=== PATIENT | male | born 1995 | race Caucasian/White ===

== ENCOUNTER 2018-03-16 09:30 | Outpatient (RCR) | payer OTHER, MEDICAID, SELFPAY ==
[2018-03-09 09:19] VITALS: BP 116/76; PULSE 96; RESP 16; TEMP 37.6
--- NOTE | 2018-03-09 13:31 | HP.PCM_ITS ---
(1) Decubitus ulcer of right ischium, stage 3 Status: Acute Current Visit: Yes Code(s): L89.313 - Pressure ulcer of right buttock, stage 3 (2) History of osteomyelitis Status: Chronic Current Visit: Yes Code(s): Z87.39 - Personal history of other diseases of the musculoskeletal system and connective tissue Comment: right sacral area (3) Infected wound Status: Acute Current Visit: Yes Code(s): T14.8 - Other injury of unspecified body region; L08.9 - Local infection of the skin and subcutaneous tissue, unspecified (4) Malnutrition compromising bodily function Status: Chronic Current Visit: Yes Code(s): E46 - Unspecified protein- calorie malnutrition (5) Spina bifida Status: Chronic Current Visit: Yes Code(s): Q05.9 - Spina bifida, unspecified History of Present Illness Date of Service: 03/09/18 Chief Complaint: Right ischium ulcer History of Wound: 21-year-old with past medical history of spina bifida paraplegia hydrocephalus osteomyelitis had been doing rather well until developed kidney stones and was taken to the hospital approximately 2 weeks ago spent in overnighter and developed a decubitus ulcer in the right issue him after receiving Lipsotripsy for his kidneys. Stage 3 ulcer with some slough no odor cultures will be taken. Patient will be started on Tosha moistened Adaptic abdominal dressings tape. 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 from the right ischial area History of osteomyelitis (Chronic) right sacral area Decubitus ulcer of right ischium, stage 2 (Chronic) Spina bifida (Chronic) Chronic osteomyelitis, pelvic region and thigh (Chronic) right sacral area Malnutrition compromising bodily function (Chronic) Past Medical History: Stage III right ischium ulcer Allergies/Adverse Reactions: Allergies latex Allergy (Verified 07/22/16 12:53) Unknown unsure as charted levofloxacin [Levofloxacin] Allergy (Verified 07/22/16 12:53) Rash sulfamethoxazole [From Bactrim] Allergy (Verified 07/22/16 12:53) Rash trimethoprim [From Bactrim] Allergy (Verified 07/22/16 12:53) Rash Home Medications: Ambulatory Orders Medication Instructions Recorded Polyethylene Glycol 3350 [Miralax] 17 gm PO DAILY #30 05/06/14 Ascorbic Acid [Vitamin C] 1,000 mg PO DAILY 07/22/16 Cholecalciferol (VIT D3) [Vitamin 1,000 unit PO DAILY 07/22/16 D] Multivitamins,Therapeutic 1 tablet PO DAILY 07/22/16 [Multivitamin] Lives: With Family Smoking Status: Never smoker Review of Systems Constitutional: Denies: Chills, Fever Eyes: Denies: Blurred vision, Drainage, Pain HEENT: Denies: Difficulty Hearing, Difficulty Swallowing, Sore Throat, Visual Changes Cardiovascular: Denies: Chest Pain, Palpitations, Syncope Respiratory: Denies: Cough, Shortness of Breath Gastrointestinal: Denies: Abdominal Pain, Nausea, Vomiting Genitourinary: Reports: - - crooks to CD. Denies: Dysuria, Frequency Musculoskeletal: Denies: Joint Pain, Muscle pain Skin: Reports: - - Ischium ulcer. Denies: Jaundice, Rash Neurological: Denies: Balance problems, Change in Speech, Difficulty swallowing , Focal weakness Psychiatric: Denies: Anxiety, Depression Endocrine: Denies: Change in Body Habitus Hematologic/ Lymphatic: Denies: Adenopathy - Physical Exam Vital Signs Temp Pulse Resp BP 99.7 F H 96 16 116/76 03/09/18 09:19 03/09/18 09:19 03/09/18 09:19 03/09/18 09:19 General: Oriented x3, Cooperative, Well developed HEENT: Atraumatic, PERRLA Oral: Moist Mucosa Neck: Supple, No JVD Lungs: Clear to auscultation, Normal air movement Cardiovascular: Regular rate, Regular Rhythm Abdomen: Bowel Sounds Present, Soft, Non Tender, No Hepato-splenomegaly, - - Crooks to DC Extremities: No edema Skin: Ulcer/ Wound - Right ischium ulcer Wound Measurements and Assessment WC - Nurse 1 - General Ulcer Measurement Start: 03/09/18 09:16 Freq: Status: Active Protocol: Activity Type Activity Date Activity User E-Sign Co-Sign Detail Recorded Client Recorded Date Recorded By Document 03/09/18 09:24 MIKKI [id number] 03/09/18 09:29 MIKKI 03/09/18 09:24 Wound Center Nurse 1 [Ulcer Assessment] #6 RIGHT ISCHIUM -Combined with other wound No -Current Size (cm) - Length 4.5 -Current Size (cm) - Width 2.0 -Current Size (cm) - Depth 0.2 -Total Square Cm 9.00 -Date of Last Picture (Recall this 03/09/18 field) -Photo Taken Yes -Epithelialization None Present -Tunneling No -Undermining/Tunneling No -Circular Undermining No -Classification - Thickness Full Thickness without Exposed Support Structure -Classification - Pressure Ulcer Stage 2 -Exudate Amt Medium (34-66%) -Exudate Type Serous -Wound Margin Distinct, Outline Attached -Granulation Amt None Present (0 %) -Granulation Quality N/A -Slough/Fibrin Yes -Necrosis Amt None Present (0 %) -Necrotic Tissue Type Adherent Slough -Structure Exposed None/Limited to Skin Breakdown -Texture (Ida-wound Skin Appearance) Friable -Moisture (Ida-wound Skin Appearance Maceration ) -Color (Ida-wound Skin Appearance) No Abnormality -Temperature (Ida-wound Skin No Abnormality Appearance) (Pt Warm) -Tenderness on Palpation (Ida-wound No Skin Appearance) -Ulcer Cleansing Rinsed/ Irrigated with Saline -Foul Odor after Cleansing No -Anesthetic Used 4% Lidocaine Solution WC - Nurse 2 - General Ulcer CM Notes Start: 03/09/18 09:16 Freq: Status: Active Protocol: Activity Type Activity Date Activity User E-Sign Co-Sign Detail Recorded Client Recorded Date Recorded By Document 03/09/18 10:21 DV [id number] 03/09/18 10:27 DV 03/09/18 10:21 Wound Center Nurse 2 [Procedure/Treatment] -Time 10:21 -Correct Patient Yes -Correct Side, Site, Position Yes -Correct Procedure Yes -Procedure Performed Yes -Type of Procedure Debridement -Clinical Debridement Subcutaneous -Post Debridement Size (cm) - Length 5.0 -Post Debridement Size (cm) - Width 2.0 -Post Debridement Size (cm) - Depth 0.3 -Total Square Cm 10.00 -Wound/Ulcer Outcome Not Healed -Ulcer Cleansing Rinsed/ Irrigated with Saline -Foul Odor after Cleansing No -Bioengineered Tissue No -Bleeding Controlled with Pressure -Treatment Response Procedure Tolerated Well [See Physician Procedure note for Specifics] Pain Scale: 0-10 Numeric [Pain] -Is Patient Pain Free? Yes Musculoskeletal: No Tenderness to Palpation of Joints or Extremities, Muscle Wasting Lymphatic: No Cervical, Supraclavicular, or Inguinal Adenopathy Neurological: Cranial nerves II-XII grossly intact, Neuro grossly intact Psych/Mental Status: Normal Affect, Appropriate, Alert and oriented to time, place, person, mood and affect Debridement Note Post-Debridement Measurements/Treatment WC - Nurse 2 - General Ulcer CM Notes Start: 03/09/18 09:16 Freq: Status: Active Protocol: Activity Type Activity Date Activity User E-Sign Co-Sign Detail Recorded Client Recorded Date Recorded By Document 03/09/18 10:21 DV [id number] 03/09/18 10:27 DV 03/09/18 10:21 Wound Center Nurse 2 #6 RIGHT ISCHIUM -Time 10:21 -Correct Patient Yes -Correct Side, Site, Position Yes -Correct Procedure Yes -Procedure Performed Yes -Type of Procedure Debridement -Clinical Debridement Subcutaneous -Post Debridement Size (cm) - Length 5.0 -Post Debridement Size (cm) - Width 2.0 -Post Debridement Size (cm) - Depth 0.3 -Total Square Cm 10.00 -Wound/Ulcer Outcome Not Healed -Ulcer Cleansing Rinsed/ Irrigated with Saline -Foul Odor after Cleansing No -Bioengineered Tissue No -Bleeding Controlled with Pressure -Treatment Response Procedure Tolerated Well Pain Scale: 0-10 Numeric Is Patient Pain Free? Yes Wound debrided: Right ischium ulcer Wound Grade/Stage: stage 3 Type of Debridement: Excisional debridement Anesthesia Used: 5% Lidocaine Gel Depth: Down to and including healthy tissue, in the subcutaneous layer Percentage of wound debrided: 100 Instrument Used: 5mm curette Tissue Removed: Slough Severity: Limited To Skin Breakdown Amount of bleeding with debridement: Mild Bleeding Controlled with: Compression and gauze Patient tolerated procedure well Assessment/Plan Active Problems Infected wound (Acute) Decubitus ulcer of right ischium, stage 3 (Acute) History of osteomyelitis (Chronic) right sacral area Spina bifida (Chronic) Malnutrition compromising bodily function (Chronic) Assessment: Decubitus ulcer stage III right ischium. Spina bifida. Paraplegia. Hydrocephalus. History of osteomyelitis Plan: Tosha moistened and then adaptic daily. follow up in 1 week. Will call with the resultsof the cx taken
[2018-03-16 10:01] VITALS: BP 112/67; PULSE 93; RESP 16; TEMP 36.6
--- NOTE | 2018-03-16 10:57 | PCM.WC.PN ---
(1) Decubitus ulcer of right ischium, stage 3 Status: Acute Current Visit: Yes Code(s): L89.313 - Pressure ulcer of right buttock, stage 3 (2) History of osteomyelitis Status: Chronic Current Visit: Yes Code(s): Z87.39 - Personal history of other diseases of the musculoskeletal system and connective tissue Comment: right sacral area (3) Infected wound Status: Acute Current Visit: Yes Code(s): T14.8 - Other injury of unspecified body region; L08.9 - Local infection of the skin and subcutaneous tissue, unspecified (4) Malnutrition compromising bodily function Status: Chronic Current Visit: Yes Code(s): E46 - Unspecified protein-calorie malnutrition (5) Spina bifida Status: Chronic Current Visit: Yes Code(s): Q05.9 - Spina bifida, unspecified Type of Wound Date of Service: 03/16/18 Chief Complaint: Right ischium ulcer History of Wound: 21-year-old with past medical history of spina bifida paraplegia hydrocephalus osteomyelitis had been doing rather well until developed kidney stones and was taken to the hospital approximately 2 weeks ago spent in overnighter and developed a decubitus ulcer in the right issue him after receiving Lipsotripsy for his kidneys. Stage 3 ulcer with some slough no odor cultures will be taken. Patient will be started on Tosha moistened Adaptic abdominal dressings tape. Progress of Wound: The ulcer looks so much better this week he has started the antibiotics for his bacteria is and anaerobes first its Augmentin and we will be adding and metronidazole also. After he is finished with the Augmentin will have to go right into doxycycline for the other aerobic type bacteria that is growing in his wound. He is starting to complain of diarrhea and was started on probiotics and also the metronidazole should help with some diarrhea. The wound itself looks vacuum cleaner mechanic already and was able to debride very well this week. - Physical Exam Vital Signs Temp Pulse Resp BP 97.8 F 93 16 112/67 03/16/18 10:01 03/16/18 10:01 03/16/18 10:01 03/16/18 10:01 General: Oriented x3, Cooperative, Well developed HEENT: Atraumatic, PERRLA Oral: Moist Mucosa Neck: Supple, No JVD Lungs: Clear to auscultation, Normal air movement Cardiovascular: Regular rate, Regular Rhythm Abdomen: Bowel Sounds Present, Soft, Non Tender, No Hepato-splenomegaly Extremities: No clubbing, No edema Skin: - - Right ischial ulcer stage III Wound Measurements and Assessment - Nurse 1 - General Ulcer Measurement Start: 03/09/18 09:16 Freq: Status: Active Protocol: Activity Type Activity Date Activity User E-Sign Co-Sign Detail Recorded Client Recorded Date Recorded By Document 03/16/18 10:01 MIKKI [id number] 03/16/18 10:14 MIKKI 03/16/18 10:01 Wound Center Nurse 1 [Ulcer Assessment] #6 RIGHT ISCHIUM -Combined with other wound No -Current Size (cm) - Length 4.0 -Current Size (cm) - Width 3.5 -Current Size (cm) - Depth 0.2 -Total Square Cm 14.00 -Date of Last Picture (Recall this 03/09/18 field) -Photo Taken No -Epithelialization None Present -Tunneling No -Undermining/Tunneling No -Circular Undermining No -Classification - Thickness Full Thickness without Exposed Support Structure -Classification - Pressure Ulcer Stage 2 -Change in Wound Grade/Stage No Query Text:If change please identify the Stage/Grade in the comment (ie. S2 G3) -Exudate Amt Medium (34-66%) -Exudate Type Serous -Wound Margin Distinct, Outline Attached -Granulation Amt None Present (0 %) -Granulation Quality N/A -Slough/Fibrin Yes -Necrosis Amt None Present (0 %) -Necrotic Tissue Type Eschar -Structure Exposed None/Limited to Skin Breakdown -Texture (Ida-wound Skin Appearance) No Abnormality -Moisture (Ida-wound Skin Appearance Maceration ) -Color (Ida-wound Skin Appearance) No Abnormality -Temperature (Ida-wound Skin No Abnormality Appearance) (Pt Warm) -Tenderness on Palpation (Ida-wound No Skin Appearance) -Ulcer Cleansing Rinsed/ Irrigated with Saline -Foul Odor after Cleansing No -Anesthetic Used 4% Lidocaine Solution - Nurse 2 - General Ulcer CM Notes Start: 03/09/18 09:16 Freq: Status: Active Protocol: Activity Type Activity Date Activity User E-Sign Co-Sign Detail Recorded Client Recorded Date Recorded By Document 03/16/18 10:42 PARISH [id number] 03/16/18 10:45 03/16/18 10:42 Wound Center Nurse 2 [Procedure/Treatment] -Time 10:42 -Correct Patient Yes -Correct Side, Site, Position Yes -Correct Procedure Yes -Procedure Performed Yes -Type of Procedure Debridement -Clinical Debridement Subcutaneous -Post Debridement Size (cm) - Length 4.5 -Post Debridement Size (cm) - Width 3.5 -Post Debridement Size (cm) - Depth 0.7 -Total Square Cm 15.75 -Wound/Ulcer Outcome Not Healed -Ulcer Cleansing Rinsed/ Irrigated with Saline -Foul Odor after Cleansing No -Bioengineered Tissue No -Bleeding Controlled with Pressure -Treatment Response Procedure Tolerated Well [See Physician Procedure note for Specifics] Pain Scale: 0-10 Numeric [Pain] -Is Patient Pain Free? Yes Musculoskeletal: No Tenderness to Palpation of Joints or Extremities Lymphatic: No Cervical, Supraclavicular, or Inguinal Adenopathy Neurological: Cranial nerves II-XII grossly intact, Neuro grossly intact Psych/Mental Status: Normal Affect, Appropriate Debridement Note Post-Debridement Measurements/Treatment WC - Nurse 2 - General Ulcer CM Notes Start: 03/09/18 09:16 Freq: Status: Active Protocol: Activity Type Activity Date Activity User E-Sign Co-Sign Detail Recorded Client Recorded Date Recorded By Document 03/09/18 10:21 DV [id number] 03/09/18 10:27 DV Document 03/16/18 10:42 DV [id number] 03/16/18 10:45 DV 03/09/18 03/16/18 10:21 10:42 Wound Center Nurse 2 #6 RIGHT ISCHIUM -Time 10:21 10:42 -Correct Patient Yes Yes -Correct Side, Site, Position Yes Yes -Correct Procedure Yes Yes -Procedure Performed Yes Yes -Type of Procedure Debridement Debridement -Clinical Debridement Subcutaneous Subcutaneous -Post Debridement Size (cm) - Length 5.0 4.5 -Post Debridement Size (cm) - Width 2.0 3.5 -Post Debridement Size (cm) - Depth 0.3 0.7 -Total Square Cm 10.00 15.75 -Wound/Ulcer Outcome Not Healed Not Healed -Ulcer Cleansing Rinsed/ Rinsed/ Irrigated with Irrigated with Saline Saline -Foul Odor after Cleansing No No -Bioengineered Tissue No No -Bleeding Controlled with Pressure Pressure -Treatment Response Procedure Procedure Tolerated Well Tolerated Well Pain Scale: 0-10 Numeric Is Patient Pain Free? Yes Yes Wound debrided: R ischial ulcer Wound Grade/Stage: Stage III Type of Debridement: Excisional debridement Anesthesia Used: 5% Lidocaine Gel Depth: Down to and including healthy tissue, in the subcutaneous layer Instrument Used: 7mm curette Tissue Removed: Fibrin and devitalized tissue Severity: Fat Layer Exposed Amount of bleeding with debridement: Mild Bleeding Controlled with: Compression and gauze Patient tolerated procedure well Assessment/Plan Active Problems Infected wound (Acute) Decubitus ulcer of right ischium, stage 3 (Acute) History of osteomyelitis (Chronic) right sacral area Spina bifida (Chronic) Malnutrition compromising bodily function (Chronic) Assessment: Decubitus ulcer stage III right ischium. Spina bifida. Paraplegia. Hydrocephalus. History of osteomyelitis Plan: Tosha moistened and then adaptic daily cover with absorbent sachet. New Augmentin 875's 1 p.o. twice daily for 10 days. Metronidazole 250 3 times daily for 10 days. follow up in 1 week
--- NOTE | 2018-03-16 11:02 | PN.PCM_ITS ---
(1) Decubitus ulcer of right ischium, stage 3 Status: Acute Current Visit: Yes Code(s): L89.313 - Pressure ulcer of right buttock, stage 3 (2) History of osteomyelitis Status: Chronic Current Visit: Yes Code(s): Z87.39 - Personal history of other diseases of the musculoskeletal system and connective tissue Comment: right sacral area (3) Infected wound Status: Acute Current Visit: Yes Code(s): T14.8 - Other injury of unspecified body region; L08.9 - Local infection of the skin and subcutaneous tissue, unspecified (4) Malnutrition compromising bodily function Status: Chronic Current Visit: Yes Code(s): E46 - Unspecified protein- calorie malnutrition (5) Spina bifida Status: Chronic Current Visit: Yes Code(s): Q05.9 - Spina bifida, unspecified Type of Wound Date of Service: 03/16/18 Chief Complaint: Right ischium ulcer History of Wound: 21-year-old with past medical history of spina bifida paraplegia hydrocephalus osteomyelitis had been doing rather well until developed kidney stones and was taken to the hospital approximately 2 weeks ago spent in overnighter and developed a decubitus ulcer in the right issue him after receiving Lipsotripsy for his kidneys. Stage 3 ulcer with some slough no odor cultures will be taken. Patient will be started on Tosha moistened Adaptic abdominal dressings tape. Progress of Wound: The ulcer looks so much better this week he has started the antibiotics for his bacteria is and anaerobes first its Augmentin and we will be adding and metronidazole also. After he is finished with the Augmentin will have to go right into doxycycline for the other aerobic type bacteria that is growing in his wound. He is starting to complain of diarrhea and was started on probiotics and also the metronidazole should help with some diarrhea. The wound itself looks negative cleaner already and was able to debride very well this week. - Physical Exam Vital Signs Temp Pulse Resp BP 97.8 F 93 16 112/67 03/16/18 10:01 03/16/18 10:01 03/16/18 10:01 03/16/18 10:01 General: Oriented x3, Cooperative, Well developed HEENT: Atraumatic, PERRLA Oral: Moist Mucosa Neck: Supple, No JVD Lungs: Clear to auscultation, Normal air movement Cardiovascular: Regular rate, Regular Rhythm Abdomen: Bowel Sounds Present, Soft, Non Tender, No Hepato-splenomegaly Extremities: No clubbing, No edema Skin: - - Right ischial ulcer stage III Wound Measurements and Assessment - Nurse 1 - General Ulcer Measurement Start: 03/09/18 09:16 Freq: Status: Active Protocol: Activity Type Activity Date Activity User E-Sign Co-Sign Detail Recorded Client Recorded Date Recorded By Document 03/16/18 10:01 MIKKI [id number] 03/16/18 10:14 MIKKI 03/16/18 10:01 Wound Center Nurse 1 [Ulcer Assessment] #6 RIGHT ISCHIUM -Combined with other wound No -Current Size (cm) - Length 4.0 -Current Size (cm) - Width 3.5 -Current Size (cm) - Depth 0.2 -Total Square Cm 14.00 -Date of Last Picture (Recall this 03/09/18 field) -Photo Taken No -Epithelialization None Present -Tunneling No -Undermining/Tunneling No -Circular Undermining No -Classification - Thickness Full Thickness without Exposed Support Structure -Classification - Pressure Ulcer Stage 2 -Change in Wound Grade/Stage No Query Text:If change please identify the Stage/Grade in the comment (ie. S2 G3) -Exudate Amt Medium (34-66%) -Exudate Type Serous -Wound Margin Distinct, Outline Attached -Granulation Amt None Present (0 %) -Granulation Quality N/A -Slough/Fibrin Yes -Necrosis Amt None Present (0 %) -Necrotic Tissue Type Eschar -Structure Exposed None/Limited to Skin Breakdown -Texture (Ida-wound Skin Appearance) No Abnormality -Moisture (Ida-wound Skin Appearance Maceration ) -Color (Ida-wound Skin Appearance) No Abnormality -Temperature (Ida-wound Skin No Abnormality Appearance) (Pt Warm) -Tenderness on Palpation (Ida-wound No Skin Appearance) -Ulcer Cleansing Rinsed/ Irrigated with Saline -Foul Odor after Cleansing No -Anesthetic Used 4% Lidocaine Solution - Nurse 2 - General Ulcer CM Notes Start: 03/09/18 09:16 Freq: Status: Active Protocol: Activity Type Activity Date Activity User E-Sign Co-Sign Detail Recorded Client Recorded Date Recorded By Document 03/16/18 10:42 PARISH [id number] 03/16/18 10:45 03/16/18 10:42 Wound Center Nurse 2 [Procedure/Treatment] -Time 10:42 -Correct Patient Yes -Correct Side, Site, Position Yes -Correct Procedure Yes -Procedure Performed Yes -Type of Procedure Debridement -Clinical Debridement Subcutaneous -Post Debridement Size (cm) - Length 4.5 -Post Debridement Size (cm) - Width 3.5 -Post Debridement Size (cm) - Depth 0.7 -Total Square Cm 15.75 -Wound/Ulcer Outcome Not Healed -Ulcer Cleansing Rinsed/ Irrigated with Saline -Foul Odor after Cleansing No -Bioengineered Tissue No -Bleeding Controlled with Pressure -Treatment Response Procedure Tolerated Well [See Physician Procedure note for Specifics] Pain Scale: 0-10 Numeric [Pain] -Is Patient Pain Free? Yes Musculoskeletal: No Tenderness to Palpation of Joints or Extremities Lymphatic: No Cervical, Supraclavicular, or Inguinal Adenopathy Neurological: Cranial nerves II-XII grossly intact, Neuro grossly intact Psych/Mental Status: Normal Affect, Appropriate Debridement Note Post-Debridement Measurements/Treatment WC - Nurse 2 - General Ulcer CM Notes Start: 03/09/18 09:16 Freq: Status: Active Protocol: Activity Type Activity Date Activity User E-Sign Co-Sign Detail Recorded Client Recorded Date Recorded By Document 03/09/18 10:21 DV [id number] 03/09/18 10:27 DV Document 03/16/18 10:42 DV [id number] 03/16/18 10:45 DV 03/09/18 03/16/18 10:21 10:42 Wound Center Nurse 2 #6 RIGHT ISCHIUM -Time 10:21 10:42 -Correct Patient Yes Yes -Correct Side, Site, Position Yes Yes -Correct Procedure Yes Yes -Procedure Performed Yes Yes -Type of Procedure Debridement Debridement -Clinical Debridement Subcutaneous Subcutaneous -Post Debridement Size (cm) - Length 5.0 4.5 -Post Debridement Size (cm) - Width 2.0 3.5 -Post Debridement Size (cm) - Depth 0.3 0.7 -Total Square Cm 10.00 15.75 -Wound/Ulcer Outcome Not Healed Not Healed -Ulcer Cleansing Rinsed/ Rinsed/ Irrigated with Irrigated with Saline Saline -Foul Odor after Cleansing No No -Bioengineered Tissue No No -Bleeding Controlled with Pressure Pressure -Treatment Response Procedure Procedure Tolerated Well Tolerated Well Pain Scale: 0-10 Numeric Is Patient Pain Free? Yes Yes Wound debrided: R ischial ulcer Wound Grade/Stage: Stage III Type of Debridement: Excisional debridement Anesthesia Used: 5% Lidocaine Gel Depth: Down to and including healthy tissue, in the subcutaneous layer Instrument Used: 7mm curette Tissue Removed: Fibrin and devitalized tissue Severity: Fat Layer Exposed Amount of bleeding with debridement: Mild Bleeding Controlled with: Compression and gauze Patient tolerated procedure well Assessment/Plan Active Problems Infected wound (Acute) Decubitus ulcer of right ischium, stage 3 (Acute) History of osteomyelitis (Chronic) right sacral area Spina bifida (Chronic) Malnutrition compromising bodily function (Chronic) Assessment: Decubitus ulcer stage III right ischium. Spina bifida. Paraplegia. Hydrocephalus. History of osteomyelitis Plan: Tosha moistened and then adaptic daily cover with absorbent sachet. New Augmentin 875's 1 p.o. twice daily for 10 days. Metronidazole 250 3 times daily for 10 days. follow up in 1 week
== END 2018-03-22 23:59 ==
LOC: WC 09:30
PROVIDERS: Family Provider Family Medicine; PCP Family Medicine; Visit Provider Nurse Practitioner
DX: L89.313 Pressure ulcer of right buttock, stage 3 (principal); E46 Unspecified protein-calorie malnutrition; Q05.9 Spina bifida, unspecified; Z91.040 Latex allergy status; G82.20 Paraplegia, unspecified; Z87.39 Personal history of other diseases of the musculoskeletal system and connective tissue
CPT/HCPCS: 11042; 87070; 87075; 87077; 87186; 87205; 99213; G0463

== ENCOUNTER 2018-04-20 09:30 | Outpatient (RCR) | payer OTHER, MEDICAID, SELFPAY ==
[2018-03-23 01:15] VITALS: BP 112/67; PULSE 93; RESP 16; TEMP 36.6
[2018-03-23 09:55] VITALS: BP 113/71; PULSE 96; RESP 18; TEMP 37.3
--- NOTE | 2018-03-23 13:24 | PCM.WC.PN ---
(1) Decubitus ulcer of right ischium, stage 3 Status: Acute Current Visit: Yes Code(s): L89.313 - Pressure ulcer of right buttock, stage 3 (2) Infected wound Status: Acute Current Visit: Yes Code(s): T14.8 - Other injury of unspecified body region; L08.9 - Local infection of the skin and subcutaneous tissue, unspecified (3) Chronic osteomyelitis, pelvic region and thigh Status: Chronic Current Visit: Yes Code(s): M86.659 - Other chronic osteomyelitis, unspecified thigh Comment: right sacral area (4) Malnutrition compromising bodily function Status: Chronic Current Visit: Yes Code(s): E46 - Unspecified protein-calorie malnutrition (5) Spina bifida Status: Chronic Current Visit: Yes Code(s): Q05.9 - Spina bifida, unspecified Type of Wound Date of Service: 03/23/18 Chief Complaint: Right ischium ulcer History of Wound: 21-year-old with past medical history of spina bifida paraplegia hydrocephalus osteomyelitis had been doing rather well until developed kidney stones and was taken to the hospital approximately 2 weeks ago spent in overnighter and developed a decubitus ulcer in the right issue him after receiving Lipsotripsy for his kidneys. Stage 3 ulcer with some slough no odor cultures will be taken. Patient will be started on Tosha moistened Adaptic abdominal dressings tape. Progress of Wound: The ulcer looks so much better this week he has started the antibiotics for his bacteria is and anaerobes first its Augmentin and we will be adding and metronidazole also. After he is finished with the Augmentin will have to go right into doxycycline for the other aerobic type bacteria that is growing in his wound. He is starting to complain of diarrhea and was started on probiotics and also the metronidazole should help with some diarrhea. The wound itself looks furniture cleaner already and was able to debride very well this week. More maceration around the edges. The Adaptic this week and see if that makes a difference. - Physical Exam Vital Signs Temp Pulse Resp BP 99.1 F 96 18 113/71 03/23/18 09:55 03/23/18 09:55 03/23/18 09:55 03/23/18 09:55 General: Oriented x3, Cooperative, Well developed HEENT: Atraumatic, PERRLA Oral: Moist Mucosa Neck: Supple, No JVD Lungs: Clear to auscultation, Normal air movement Cardiovascular: Regular rate, Regular Rhythm Abdomen: Bowel Sounds Present, Soft, Non Tender, No Hepato-splenomegaly Extremities: No clubbing, No edema Skin: Ulcer/ Wound - Right ischial ulcer stage III Wound Measurements and Assessment WC - Nurse 1 - General Ulcer Measurement Start: 03/23/18 09:55 Freq: Status: Active Protocol: Activity Type Activity Date Activity User E-Sign Co-Sign Detail Recorded Client Recorded Date Recorded By Document 03/23/18 09:55 HARSHAD [id number] 03/23/18 10:07 HARSHAD 03/23/18 09:55 Wound Center Nurse 1 [Ulcer Assessment] #6 RIGHT ISCHIUM -Current Size (cm) - Length 4.0 -Current Size (cm) - Width 3.0 -Current Size (cm) - Depth 0.5 -Total Square Cm 12.00 -Date of Last Picture (Recall this 04/06/18 field) -Photo Taken No -Epithelialization None Present -Tunneling No -Undermining/Tunneling No -Circular Undermining No -Classification - Thickness Full Thickness without Exposed Support Structure -Classification - Pressure Ulcer Stage 2 -Change in Wound Grade/Stage No Query Text:If change please identify the Stage/Grade in the comment (ie. S2 G3) -Exudate Amt Small (1-33%) -Exudate Type Serous -Wound Margin Distinct, Outline Attached -Granulation Amt None Present (0 %) -Granulation Quality N/A -Slough/Fibrin Yes -Necrosis Amt None Present (0 %) -Necrotic Tissue Type Adherent Slough -Structure Exposed None/Limited to Skin Breakdown -Texture (Ida-wound Skin Appearance) No Abnormality -Moisture (Ida-wound Skin Appearance Maceration ) -Color (Ida-wound Skin Appearance) No Abnormality -Temperature (Ida-wound Skin No Abnormality Appearance) (Pt Warm) -Tenderness on Palpation (Ida-wound No Skin Appearance) -Ulcer Cleansing Rinsed/ Irrigated with Saline -Foul Odor after Cleansing No -Anesthetic Used 4% Lidocaine Solution [Edema Assessment] -Lower Limb Edema Present No WC - Nurse 2 - General Ulcer CM Notes Start: 03/23/18 09:55 Freq: Status: Active Protocol: Activity Type Activity Date Activity User E-Sign Co-Sign Detail Recorded Client Recorded Date Recorded By Document 03/23/18 10:18 [id number] 03/23/18 10:21 03/23/18 10:18 Wound Center Nurse 2 [Procedure/Treatment] #6 RIGHT ISCHIUM -Time 10:20 -Correct Patient Yes -Correct Side, Site, Position Yes -Correct Procedure Yes -Procedure Performed Yes -Type of Procedure Debridement -Clinical Debridement Subcutaneous -Post Debridement Size (cm) - Length 5.5 -Post Debridement Size (cm) - Width 3.8 -Post Debridement Size (cm) - Depth 0.6 -Total Square Cm 20.90 -Wound/Ulcer Outcome Not Healed -Ulcer Cleansing Rinsed/ Irrigated with Saline -Foul Odor after Cleansing No -Bioengineered Tissue No -Bleeding Controlled with Pressure -Treatment Response Procedure Tolerated Well [See Physician Procedure note for Specifics] Pain Scale: 0-10 Numeric [Pain] -Is Patient Pain Free? Yes Musculoskeletal: No Tenderness to Palpation of Joints or Extremities Lymphatic: No Cervical, Supraclavicular, or Inguinal Adenopathy Neurological: Cranial nerves II-XII grossly intact, Neuro grossly intact Psych/Mental Status: Normal Affect, Appropriate Debridement Note Post-Debridement Measurements/Treatment WC - Nurse 2 - General Ulcer CM Notes Start: 03/23/18 09:55 Freq: Status: Active Protocol: Activity Type Activity Date Activity User E-Sign Co-Sign Detail Recorded Client Recorded Date Recorded By Document 03/23/18 10:18 [id number] 03/23/18 10:21 03/23/18 10:18 Wound Center Nurse 2 #6 RIGHT ISCHIUM -Time 10:20 -Correct Patient Yes -Correct Side, Site, Position Yes -Correct Procedure Yes -Procedure Performed Yes -Type of Procedure Debridement -Clinical Debridement Subcutaneous -Post Debridement Size (cm) - Length 5.5 -Post Debridement Size (cm) - Width 3.8 -Post Debridement Size (cm) - Depth 0.6 -Total Square Cm 20.90 -Wound/Ulcer Outcome Not Healed -Ulcer Cleansing Rinsed/ Irrigated with Saline -Foul Odor after Cleansing No -Bioengineered Tissue No -Bleeding Controlled with Pressure -Treatment Response Procedure Tolerated Well Pain Scale: 0-10 Numeric Is Patient Pain Free? Yes Wound debrided: Right ischium Wound Grade/Stage: Stage 3 Type of Debridement: Excisional debridement Anesthesia Used: 5% Lidocaine Gel Depth: Down to and including healthy tissue, in the subcutaneous layer Percentage of wound debrided: 100 Instrument Used: 7mm curette Tissue Removed: Slough and devitalized tissue fibrin Severity: Limited To Skin Breakdown Amount of bleeding with debridement: Moderate Bleeding Controlled with: Compression and gauze Patient tolerated procedure well Assessment/Plan Active Problems Infected wound (Acute) Decubitus ulcer of right ischium, stage 3 (Acute) Spina bifida (Chronic) Chronic osteomyelitis, pelvic region and thigh (Chronic) right sacral area Malnutrition compromising bodily function (Chronic) Assessment: Decubitus ulcer stage III right ischium. Spina bifida. Paraplegia. Hydrocephalus. History of osteomyelitis. Infected ulcer Plan: Tosha moistened and then stop Adaptic daily cover with absorbent sachet. New Augmentin 875's 1 p.o. twice daily for 10 days finsish. Metronidazole 250 3 times daily for 10 days finish. follow up in 1 week
--- NOTE | 2018-03-23 13:28 | PN.PCM_ITS ---
(1) Decubitus ulcer of right ischium, stage 3 Status: Acute Current Visit: Yes Code(s): L89.313 - Pressure ulcer of right buttock, stage 3 (2) Infected wound Status: Acute Current Visit: Yes Code(s): T14.8 - Other injury of unspecified body region; L08.9 - Local infection of the skin and subcutaneous tissue, unspecified (3) Chronic osteomyelitis, pelvic region and thigh Status: Chronic Current Visit: Yes Code(s): M86.659 - Other chronic osteomyelitis, unspecified thigh Comment: right sacral area (4) Malnutrition compromising bodily function Status: Chronic Current Visit: Yes Code(s): E46 - Unspecified protein- calorie malnutrition (5) Spina bifida Status: Chronic Current Visit: Yes Code(s): Q05.9 - Spina bifida, unspecified Type of Wound Date of Service: 03/23/18 Chief Complaint: Right ischium ulcer History of Wound: 21-year-old with past medical history of spina bifida paraplegia hydrocephalus osteomyelitis had been doing rather well until developed kidney stones and was taken to the hospital approximately 2 weeks ago spent in overnighter and developed a decubitus ulcer in the right issue him after receiving Lipsotripsy for his kidneys. Stage 3 ulcer with some slough no odor cultures will be taken. Patient will be started on Tosha moistened Adaptic abdominal dressings tape. Progress of Wound: The ulcer looks so much better this week he has started the antibiotics for his bacteria is and anaerobes first its Augmentin and we will be adding and metronidazole also. After he is finished with the Augmentin will have to go right into doxycycline for the other aerobic type bacteria that is growing in his wound. He is starting to complain of diarrhea and was started on probiotics and also the metronidazole should help with some diarrhea. The wound itself looks machine heddle cleaner already and was able to debride very well this week. More maceration around the edges. The Adaptic this week and see if that makes a difference. - Physical Exam Vital Signs Temp Pulse Resp BP 99.1 F 96 18 113/71 03/23/18 09:55 03/23/18 09:55 03/23/18 09:55 03/23/18 09:55 General: Oriented x3, Cooperative, Well developed HEENT: Atraumatic, PERRLA Oral: Moist Mucosa Neck: Supple, No JVD Lungs: Clear to auscultation, Normal air movement Cardiovascular: Regular rate, Regular Rhythm Abdomen: Bowel Sounds Present, Soft, Non Tender, No Hepato-splenomegaly Extremities: No clubbing, No edema Skin: Ulcer/ Wound - Right ischial ulcer stage III Wound Measurements and Assessment WC - Nurse 1 - General Ulcer Measurement Start: 03/23/18 09:55 Freq: Status: Active Protocol: Activity Type Activity Date Activity User E-Sign Co-Sign Detail Recorded Client Recorded Date Recorded By Document 03/23/18 09:55 HARSHAD [id number] 03/23/18 10:07 HARSHAD 03/23/18 09:55 Wound Center Nurse 1 [Ulcer Assessment] #6 RIGHT ISCHIUM -Current Size (cm) - Length 4.0 -Current Size (cm) - Width 3.0 -Current Size (cm) - Depth 0.5 -Total Square Cm 12.00 -Date of Last Picture (Recall this 04/06/18 field) -Photo Taken No -Epithelialization None Present -Tunneling No -Undermining/Tunneling No -Circular Undermining No -Classification - Thickness Full Thickness without Exposed Support Structure -Classification - Pressure Ulcer Stage 2 -Change in Wound Grade/Stage No Query Text:If change please identify the Stage/Grade in the comment (ie. S2 G3) -Exudate Amt Small (1-33%) -Exudate Type Serous -Wound Margin Distinct, Outline Attached -Granulation Amt None Present (0 %) -Granulation Quality N/A -Slough/Fibrin Yes -Necrosis Amt None Present (0 %) -Necrotic Tissue Type Adherent Slough -Structure Exposed None/Limited to Skin Breakdown -Texture (Ida-wound Skin Appearance) No Abnormality -Moisture (Ida-wound Skin Appearance Maceration ) -Color (Ida-wound Skin Appearance) No Abnormality -Temperature (Ida-wound Skin No Abnormality Appearance) (Pt Warm) -Tenderness on Palpation (Ida-wound No Skin Appearance) -Ulcer Cleansing Rinsed/ Irrigated with Saline -Foul Odor after Cleansing No -Anesthetic Used 4% Lidocaine Solution [Edema Assessment] -Lower Limb Edema Present No WC - Nurse 2 - General Ulcer CM Notes Start: 03/23/18 09:55 Freq: Status: Active Protocol: Activity Type Activity Date Activity User E-Sign Co-Sign Detail Recorded Client Recorded Date Recorded By Document 03/23/18 10:18 [id number] 03/23/18 10:21 03/23/18 10:18 Wound Center Nurse 2 [Procedure/Treatment] #6 RIGHT ISCHIUM -Time 10:20 -Correct Patient Yes -Correct Side, Site, Position Yes -Correct Procedure Yes -Procedure Performed Yes -Type of Procedure Debridement -Clinical Debridement Subcutaneous -Post Debridement Size (cm) - Length 5.5 -Post Debridement Size (cm) - Width 3.8 -Post Debridement Size (cm) - Depth 0.6 -Total Square Cm 20.90 -Wound/Ulcer Outcome Not Healed -Ulcer Cleansing Rinsed/ Irrigated with Saline -Foul Odor after Cleansing No -Bioengineered Tissue No -Bleeding Controlled with Pressure -Treatment Response Procedure Tolerated Well [See Physician Procedure note for Specifics] Pain Scale: 0-10 Numeric [Pain] -Is Patient Pain Free? Yes Musculoskeletal: No Tenderness to Palpation of Joints or Extremities Lymphatic: No Cervical, Supraclavicular, or Inguinal Adenopathy Neurological: Cranial nerves II-XII grossly intact, Neuro grossly intact Psych/Mental Status: Normal Affect, Appropriate Debridement Note Post-Debridement Measurements/Treatment WC - Nurse 2 - General Ulcer CM Notes Start: 03/23/18 09:55 Freq: Status: Active Protocol: Activity Type Activity Date Activity User E-Sign Co-Sign Detail Recorded Client Recorded Date Recorded By Document 03/23/18 10:18 [id number] 03/23/18 10:21 03/23/18 10:18 Wound Center Nurse 2 #6 RIGHT ISCHIUM -Time 10:20 -Correct Patient Yes -Correct Side, Site, Position Yes -Correct Procedure Yes -Procedure Performed Yes -Type of Procedure Debridement -Clinical Debridement Subcutaneous -Post Debridement Size (cm) - Length 5.5 -Post Debridement Size (cm) - Width 3.8 -Post Debridement Size (cm) - Depth 0.6 -Total Square Cm 20.90 -Wound/Ulcer Outcome Not Healed -Ulcer Cleansing Rinsed/ Irrigated with Saline -Foul Odor after Cleansing No -Bioengineered Tissue No -Bleeding Controlled with Pressure -Treatment Response Procedure Tolerated Well Pain Scale: 0-10 Numeric Is Patient Pain Free? Yes Wound debrided: Right ischium Wound Grade/Stage: Stage 3 Type of Debridement: Excisional debridement Anesthesia Used: 5% Lidocaine Gel Depth: Down to and including healthy tissue, in the subcutaneous layer Percentage of wound debrided: 100 Instrument Used: 7mm curette Tissue Removed: Slough and devitalized tissue fibrin Severity: Limited To Skin Breakdown Amount of bleeding with debridement: Moderate Bleeding Controlled with: Compression and gauze Patient tolerated procedure well Assessment/Plan Active Problems Infected wound (Acute) Decubitus ulcer of right ischium, stage 3 (Acute) Spina bifida (Chronic) Chronic osteomyelitis, pelvic region and thigh (Chronic) right sacral area Malnutrition compromising bodily function (Chronic) Assessment: Decubitus ulcer stage III right ischium. Spina bifida. Paraplegia. Hydrocephalus. History of osteomyelitis. Infected ulcer Plan: Tosha moistened and then stop Adaptic daily cover with absorbent sachet. New Augmentin 875's 1 p.o. twice daily for 10 days finsish. Metronidazole 250 3 times daily for 10 days finish. follow up in 1 week
[2018-04-06 09:38] VITALS: BP 129/68; PULSE 84; RESP 16; TEMP 36.9
--- NOTE | 2018-04-06 10:18 | PCM.WC.PN ---
(1) Decubitus ulcer of right ischium, stage 3 Status: Acute Current Visit: Yes Code(s): L89.313 - Pressure ulcer of right buttock, stage 3 (2) Infected wound Status: Acute Current Visit: Yes Code(s): T14.8 - Other injury of unspecified body region; L08.9 - Local infection of the skin and subcutaneous tissue, unspecified (3) Chronic osteomyelitis, pelvic region and thigh Status: Chronic Current Visit: Yes Code(s): M86.659 - Other chronic osteomyelitis, unspecified thigh Comment: right sacral area (4) Malnutrition compromising bodily function Status: Chronic Current Visit: Yes Code(s): E46 - Unspecified protein-calorie malnutrition (5) Spina bifida Status: Chronic Current Visit: Yes Code(s): Q05.9 - Spina bifida, unspecified Type of Wound Date of Service: 04/06/18 Chief Complaint: Right ischium ulcer History of Wound: 21-year-old with past medical history of spina bifida paraplegia hydrocephalus osteomyelitis had been doing rather well until developed kidney stones and was taken to the hospital approximately 2 weeks ago spent in overnighter and developed a decubitus ulcer in the right issue him after receiving Lipsotripsy for his kidneys. Stage 3 ulcer with some slough no odor cultures will be taken. Patient will be started on Tosha moistened Adaptic abdominal dressings tape. Progress of Wound: The ulcer looks so much better this week he has finished the antibiotics for his bacteria is and anaerobes first was Augmentin and metronidazole also. After he is finished with the Augmentin then doxycycline for the other aerobic type bacteria that is growing in his wound. He is starting to complain of diarrhea and was started on probiotics and also the metronidazole should help with some diarrhea. The wound itself looks carpet cleaner already and was able to debride very well this week. Less maceration around the edges. We discontinued the Adaptic this week and see if that makes a difference and increased more absorbant dressing for less drainage touching skin. - Physical Exam Vital Signs Temp Pulse Resp BP 98.4 F 84 16 129/68 H 04/06/18 09:38 04/06/18 09:38 04/06/18 09:38 04/06/18 09:38 General: Oriented x3, Cooperative, Well developed HEENT: Atraumatic, PERRLA Oral: Moist Mucosa Neck: Supple, No JVD Lungs: Clear to auscultation, Normal air movement Cardiovascular: Regular rate, Regular Rhythm Abdomen: Bowel Sounds Present, Soft, Non Tender, No Hepato-splenomegaly Extremities: No clubbing, No edema Skin: Ulcer/ Wound - R Ischium Wound Measurements and Assessment WC - Nurse 1 - General Ulcer Measurement Start: 03/23/18 09:55 Freq: Status: Active Protocol: Activity Type Activity Date Activity User E-Sign Co-Sign Detail Recorded Client Recorded Date Recorded By Document 04/06/18 09:38 [facility] [id number] 04/06/18 09:46 [facility] 04/06/18 09:38 Wound Center Nurse 1 [Ulcer Assessment] #6 RIGHT ISCHIUM -Combined with other wound No -Current Size (cm) - Length 5 -Current Size (cm) - Width 3.8 -Current Size (cm) - Depth 0.7 -Total Square Cm 19.0 -Photo Taken No -Epithelialization Small 1-33% -Tunneling No -Undermining/Tunneling No -Circular Undermining No -Exudate Amt Medium (34-66%) -Exudate Type Serous -Wound Margin Distinct, Outline Attached -Granulation Amt Large (67-100%) -Granulation Quality [place] -Slough/Fibrin Yes -Necrosis Amt Small (1-33%) -Necrotic Tissue Type Adherent Slough -Structure Exposed None/Limited to Skin Breakdown -Texture (Ida-wound Skin Appearance) Scarring -Moisture (Ida-wound Skin Appearance Dry/Scaly ) -Color (Ida-wound Skin Appearance) Erythema -Temperature (Ida-wound Skin No Abnormality Appearance) (Pt Warm) -Tenderness on Palpation (Ida-wound No Skin Appearance) -Ulcer Cleansing Rinsed/ Irrigated with Saline -Foul Odor after Cleansing No -Anesthetic Used 4% Lidocaine Solution - Nurse 2 - General Ulcer CM Notes Start: 03/23/18 09:55 Freq: Status: Active Protocol: Activity Type Activity Date Activity User E-Sign Co-Sign Detail Recorded Client Recorded Date Recorded By Document 04/06/18 10:03 DV [id number] 04/06/18 10:06 DV 04/06/18 10:03 Wound Center Nurse 2 [Procedure/Treatment] -Time 10:04 -Correct Patient Yes -Correct Side, Site, Position Yes -Correct Procedure Yes -Procedure Performed Yes -Type of Procedure Debridement -Clinical Debridement Subcutaneous -Post Debridement Size (cm) - Length 3.2 -Post Debridement Size (cm) - Width 4.2 -Post Debridement Size (cm) - Depth 0.3 -Total Square Cm 13.44 -Wound/Ulcer Outcome Not Healed -Ulcer Cleansing Rinsed/ Irrigated with Saline -Foul Odor after Cleansing No -Bioengineered Tissue No -Bleeding Controlled with Pressure -Treatment Response Procedure Tolerated Well [See Physician Procedure note for Specifics] Pain Scale: 0-10 Numeric [Pain] -Is Patient Pain Free? Yes Musculoskeletal: No Tenderness to Palpation of Joints or Extremities Lymphatic: No Cervical, Supraclavicular, or Inguinal Adenopathy Neurological: Cranial nerves II-XII grossly intact, Neuro grossly intact Psych/Mental Status: Normal Affect, Appropriate, Alert and oriented to time, place, person, mood and affect Debridement Note Post-Debridement Measurements/Treatment WC - Nurse 2 - General Ulcer CM Notes Start: 03/23/18 09:55 Freq: Status: Active Protocol: Activity Type Activity Date Activity User E-Sign Co-Sign Detail Recorded Client Recorded Date Recorded By Document 03/23/18 10:18 [id number] 03/23/18 10:21 Document 04/06/18 10:03 [id number] 04/06/18 10:06 DV 03/23/18 04/06/18 10:18 10:03 Wound Center Nurse 2 #6 RIGHT ISCHIUM -Time 10:20 10:04 -Correct Patient Yes Yes -Correct Side, Site, Position Yes Yes -Correct Procedure Yes Yes -Procedure Performed Yes Yes -Type of Procedure Debridement Debridement -Clinical Debridement Subcutaneous Subcutaneous -Post Debridement Size (cm) - Length 5.5 3.2 -Post Debridement Size (cm) - Width 3.8 4.2 -Post Debridement Size (cm) - Depth 0.6 0.3 -Total Square Cm 20.90 13.44 -Wound/Ulcer Outcome Not Healed Not Healed -Ulcer Cleansing Rinsed/ Rinsed/ Irrigated with Irrigated with Saline Saline -Foul Odor after Cleansing No No -Bioengineered Tissue No No -Bleeding Controlled with Pressure Pressure -Treatment Response Procedure Procedure Tolerated Well Tolerated Well Pain Scale: 0-10 Numeric Is Patient Pain Free? Yes Yes Wound debrided: Right ischium Wound Grade/Stage: Stage III Type of Debridement: Excisional debridement Anesthesia Used: 5% Lidocaine Gel Depth: Down to and including healthy tissue, in the subcutaneous layer Instrument Used: 7mm curette Tissue Removed: Devitalized tissue and fibrin Severity: Limited To Skin Breakdown Amount of bleeding with debridement: Moderate Bleeding Controlled with: Compression and gauze Patient tolerated procedure well Assessment/Plan Active Problems Infected wound (Acute) Decubitus ulcer of right ischium, stage 3 (Acute) Spina bifida (Chronic) Chronic osteomyelitis, pelvic region and thigh (Chronic) right sacral area Malnutrition compromising bodily function (Chronic) Assessment: Decubitus ulcer stage III right ischium. Spina bifida. Paraplegia. Hydrocephalus. History of osteomyelitis. Infected ulcer Plan: Tosha moistened and then stop Adaptic daily cover with absorbent sachet. follow up in 1 week
--- NOTE | 2018-04-06 10:23 | PN.PCM_ITS ---
(1) Decubitus ulcer of right ischium, stage 3 Status: Acute Current Visit: Yes Code(s): L89.313 - Pressure ulcer of right buttock, stage 3 (2) Infected wound Status: Acute Current Visit: Yes Code(s): T14.8 - Other injury of unspecified body region; L08.9 - Local infection of the skin and subcutaneous tissue, unspecified (3) Chronic osteomyelitis, pelvic region and thigh Status: Chronic Current Visit: Yes Code(s): M86.659 - Other chronic osteomyelitis, unspecified thigh Comment: right sacral area (4) Malnutrition compromising bodily function Status: Chronic Current Visit: Yes Code(s): E46 - Unspecified protein- calorie malnutrition (5) Spina bifida Status: Chronic Current Visit: Yes Code(s): Q05.9 - Spina bifida, unspecified Type of Wound Date of Service: 04/06/18 Chief Complaint: Right ischium ulcer History of Wound: 21-year-old with past medical history of spina bifida paraplegia hydrocephalus osteomyelitis had been doing rather well until developed kidney stones and was taken to the hospital approximately 2 weeks ago spent in overnighter and developed a decubitus ulcer in the right issue him after receiving Lipsotripsy for his kidneys. Stage 3 ulcer with some slough no odor cultures will be taken. Patient will be started on Tosha moistened Adaptic abdominal dressings tape. Progress of Wound: The ulcer looks so much better this week he has finished the antibiotics for his bacteria is and anaerobes first was Augmentin and metronidazole also. After he is finished with the Augmentin then doxycycline for the other aerobic type bacteria that is growing in his wound. He is starting to complain of diarrhea and was started on probiotics and also the metronidazole should help with some diarrhea. The wound itself looks apparatus cleaner already and was able to debride very well this week. Less maceration around the edges. We discontinued the Adaptic this week and see if that makes a difference and increased more absorbant dressing for less drainage touching skin. - Physical Exam Vital Signs Temp Pulse Resp BP 98.4 F 84 16 129/68 H 04/06/18 09:38 04/06/18 09:38 04/06/18 09:38 04/06/18 09:38 General: Oriented x3, Cooperative, Well developed HEENT: Atraumatic, PERRLA Oral: Moist Mucosa Neck: Supple, No JVD Lungs: Clear to auscultation, Normal air movement Cardiovascular: Regular rate, Regular Rhythm Abdomen: Bowel Sounds Present, Soft, Non Tender, No Hepato-splenomegaly Extremities: No clubbing, No edema Skin: Ulcer/ Wound - R Ischium Wound Measurements and Assessment WC - Nurse 1 - General Ulcer Measurement Start: 03/23/18 09:55 Freq: Status: Active Protocol: Activity Type Activity Date Activity User E-Sign Co-Sign Detail Recorded Client Recorded Date Recorded By Document 04/06/18 09:38 [facility] [id number] 04/06/18 09:46 [facility] 04/06/18 09:38 Wound Center Nurse 1 [Ulcer Assessment] #6 RIGHT ISCHIUM -Combined with other wound No -Current Size (cm) - Length 5 -Current Size (cm) - Width 3.8 -Current Size (cm) - Depth 0.7 -Total Square Cm 19.0 -Photo Taken No -Epithelialization Small 1-33% -Tunneling No -Undermining/Tunneling No -Circular Undermining No -Exudate Amt Medium (34-66%) -Exudate Type Serous -Wound Margin Distinct, Outline Attached -Granulation Amt Large (67-100%) -Granulation Quality [place] -Slough/Fibrin Yes -Necrosis Amt Small (1-33%) -Necrotic Tissue Type Adherent Slough -Structure Exposed None/Limited to Skin Breakdown -Texture (Ida-wound Skin Appearance) Scarring -Moisture (Ida-wound Skin Appearance Dry/Scaly ) -Color (Ida-wound Skin Appearance) Erythema -Temperature (Ida-wound Skin No Abnormality Appearance) (Pt Warm) -Tenderness on Palpation (Ida-wound No Skin Appearance) -Ulcer Cleansing Rinsed/ Irrigated with Saline -Foul Odor after Cleansing No -Anesthetic Used 4% Lidocaine Solution - Nurse 2 - General Ulcer CM Notes Start: 03/23/18 09:55 Freq: Status: Active Protocol: Activity Type Activity Date Activity User E-Sign Co-Sign Detail Recorded Client Recorded Date Recorded By Document 04/06/18 10:03 DV [id number] 04/06/18 10:06 DV 04/06/18 10:03 Wound Center Nurse 2 [Procedure/Treatment] -Time 10:04 -Correct Patient Yes -Correct Side, Site, Position Yes -Correct Procedure Yes -Procedure Performed Yes -Type of Procedure Debridement -Clinical Debridement Subcutaneous -Post Debridement Size (cm) - Length 3.2 -Post Debridement Size (cm) - Width 4.2 -Post Debridement Size (cm) - Depth 0.3 -Total Square Cm 13.44 -Wound/Ulcer Outcome Not Healed -Ulcer Cleansing Rinsed/ Irrigated with Saline -Foul Odor after Cleansing No -Bioengineered Tissue No -Bleeding Controlled with Pressure -Treatment Response Procedure Tolerated Well [See Physician Procedure note for Specifics] Pain Scale: 0-10 Numeric [Pain] -Is Patient Pain Free? Yes Musculoskeletal: No Tenderness to Palpation of Joints or Extremities Lymphatic: No Cervical, Supraclavicular, or Inguinal Adenopathy Neurological: Cranial nerves II-XII grossly intact, Neuro grossly intact Psych/Mental Status: Normal Affect, Appropriate, Alert and oriented to time, place, person, mood and affect Debridement Note Post-Debridement Measurements/Treatment WC - Nurse 2 - General Ulcer CM Notes Start: 03/23/18 09:55 Freq: Status: Active Protocol: Activity Type Activity Date Activity User E-Sign Co-Sign Detail Recorded Client Recorded Date Recorded By Document 03/23/18 10:18 [id number] 03/23/18 10:21 Document 04/06/18 10:03 [id number] 04/06/18 10:06 DV 03/23/18 04/06/18 10:18 10:03 Wound Center Nurse 2 #6 RIGHT ISCHIUM -Time 10:20 10:04 -Correct Patient Yes Yes -Correct Side, Site, Position Yes Yes -Correct Procedure Yes Yes -Procedure Performed Yes Yes -Type of Procedure Debridement Debridement -Clinical Debridement Subcutaneous Subcutaneous -Post Debridement Size (cm) - Length 5.5 3.2 -Post Debridement Size (cm) - Width 3.8 4.2 -Post Debridement Size (cm) - Depth 0.6 0.3 -Total Square Cm 20.90 13.44 -Wound/Ulcer Outcome Not Healed Not Healed -Ulcer Cleansing Rinsed/ Rinsed/ Irrigated with Irrigated with Saline Saline -Foul Odor after Cleansing No No -Bioengineered Tissue No No -Bleeding Controlled with Pressure Pressure -Treatment Response Procedure Procedure Tolerated Well Tolerated Well Pain Scale: 0-10 Numeric Is Patient Pain Free? Yes Yes Wound debrided: Right ischium Wound Grade/Stage: Stage III Type of Debridement: Excisional debridement Anesthesia Used: 5% Lidocaine Gel Depth: Down to and including healthy tissue, in the subcutaneous layer Instrument Used: 7mm curette Tissue Removed: Devitalized tissue and fibrin Severity: Limited To Skin Breakdown Amount of bleeding with debridement: Moderate Bleeding Controlled with: Compression and gauze Patient tolerated procedure well Assessment/Plan Active Problems Infected wound (Acute) Decubitus ulcer of right ischium, stage 3 (Acute) Spina bifida (Chronic) Chronic osteomyelitis, pelvic region and thigh (Chronic) right sacral area Malnutrition compromising bodily function (Chronic) Assessment: Decubitus ulcer stage III right ischium. Spina bifida. Paraplegia. Hydrocephalus. History of osteomyelitis. Infected ulcer Plan: Tosha moistened and then stop Adaptic daily cover with absorbent sachet. follow up in 1 week
[2018-04-13 10:13] VITALS: BP 107/62; PULSE 81; RESP 18; TEMP 36.1
--- NOTE | 2018-04-13 13:42 | PCM.WC.PN ---
(1) Decubitus ulcer of right ischium, stage 3 Status: Acute Current Visit: Yes Code(s): L89.313 - Pressure ulcer of right buttock, stage 3 (2) Infected wound Status: Acute Current Visit: Yes Code(s): T14.8 - Other injury of unspecified body region; L08.9 - Local infection of the skin and subcutaneous tissue, unspecified (3) Chronic osteomyelitis, pelvic region and thigh Status: Chronic Current Visit: Yes Code(s): M86.659 - Other chronic osteomyelitis, unspecified thigh Comment: right sacral area (4) Malnutrition compromising bodily function Status: Chronic Current Visit: Yes Code(s): E46 - Unspecified protein-calorie malnutrition (5) Spina bifida Status: Chronic Current Visit: Yes Code(s): Q05.9 - Spina bifida, unspecified Type of Wound Date of Service: 04/13/18 Chief Complaint: Right ischium ulcer History of Wound: 21-year-old with past medical history of spina bifida paraplegia hydrocephalus osteomyelitis had been doing rather well until developed kidney stones and was taken to the hospital approximately 2 weeks ago spent in overnighter and developed a decubitus ulcer in the right issue him after receiving Lipsotripsy for his kidneys. Stage 3 ulcer with some slough no odor cultures will be taken. Patient will be started on Tosha moistened Adaptic abdominal dressings tape. Progress of Wound: The ulcer looks so much better this week he has finished the antibiotics for his bacteria is and anaerobes first was Augmentin and metronidazole also. After he is finished with the Augmentin then doxycycline for the other aerobic type bacteria that is growing in his wound. The wound itself looks cleaner greaser but still very macerated around the perimeter already and was able to debride very well this week. We discontinued the Adaptic week and see if that makes a difference. This week we will stop moisturizing anything and use dry Promogran fluff gauze and then sorban sachet . - Physical Exam Vital Signs Temp Pulse Resp BP 96.9 F L 81 18 107/62 04/13/18 10:13 04/13/18 10:13 04/13/18 10:13 04/13/18 10:13 General: Oriented x3, Cooperative, Well developed HEENT: Atraumatic, PERRLA Oral: Moist Mucosa Neck: Supple, No JVD Lungs: Clear to auscultation, Normal air movement Cardiovascular: Regular rate, Regular Rhythm Abdomen: Bowel Sounds Present, Soft, Non Tender, No Hepato-splenomegaly Extremities: No clubbing, No edema Skin: Ulcer/ Wound - Right ischium ulcer Wound Measurements and Assessment WC - Nurse 1 - General Ulcer Measurement Start: 03/23/18 09:55 Freq: Status: Active Protocol: Activity Type Activity Date Activity User E-Sign Co-Sign Detail Recorded Client Recorded Date Recorded By Document 04/13/18 10:13 DL [id number] 04/13/18 10:29 DL 04/13/18 10:13 Wound Center Nurse 1 [Ulcer Assessment] #6 RIGHT ISCHIUM -Current Size (cm) - Length 4.5 -Current Size (cm) - Width 2.8 -Current Size (cm) - Depth 0.6 -Total Square Cm 12.60 -Photo Taken No -Exudate Amt Medium (34-66%) -Exudate Type Serosanguineous -Wound Margin Thickened -Granulation Amt Small (1-33%) -Granulation Quality [place] -Necrosis Amt Large (67-100%) -Necrotic Tissue Type Adherent Slough -Structure Exposed N/A -Texture (Ida-wound Skin Appearance) Scarring -Moisture (Ida-wound Skin Appearance Maceration ) -Color (Ida-wound Skin Appearance) No Abnormality -Temperature (Ida-wound Skin No Abnormality Appearance) (Pt Warm) -Ulcer Cleansing Wound Cleanser -Foul Odor after Cleansing No -Anesthetic Used 4% Lidocaine Solution WC - Nurse 2 - General Ulcer CM Notes Start: 03/23/18 09:55 Freq: Status: Active Protocol: Activity Type Activity Date Activity User E-Sign Co-Sign Detail Recorded Client Recorded Date Recorded By Document 04/13/18 11:19 [id number] 04/13/18 11:23 04/13/18 11:19 Wound Center Nurse 2 [Procedure/Treatment] -Time 11:19 -Correct Patient Yes -Correct Side, Site, Position Yes -Correct Procedure Yes -Procedure Performed Yes -Type of Procedure Debridement -Clinical Debridement Subcutaneous -Post Debridement Size (cm) - Length 2.4 -Post Debridement Size (cm) - Width 4.5 -Post Debridement Size (cm) - Depth 0.2 -Total Square Cm 10.80 -Wound/Ulcer Outcome Not Healed -Ulcer Cleansing Rinsed/ Irrigated with Saline -Foul Odor after Cleansing No -Bioengineered Tissue No -Bleeding Controlled with NA -Treatment Response Procedure Tolerated Well [See Physician Procedure note for Specifics] Pain Scale: 0-10 Numeric [Pain] -Is Patient Pain Free? Yes Musculoskeletal: No Tenderness to Palpation of Joints or Extremities Lymphatic: No Cervical, Supraclavicular, or Inguinal Adenopathy Neurological: Cranial nerves II-XII grossly intact, Neuro grossly intact Psych/Mental Status: Normal Affect, Appropriate, Alert and oriented to time, place, person, mood and affect Debridement Note Post-Debridement Measurements/Treatment WC - Nurse 2 - General Ulcer CM Notes Start: 03/23/18 09:55 Freq: Status: Active Protocol: Activity Type Activity Date Activity User E-Sign Co-Sign Detail Recorded Client Recorded Date Recorded By Document 03/23/18 10:18 [id number] 03/23/18 10:21 JF Document 04/06/18 10:03 DV [id number] 04/06/18 10:06 DV Document 04/13/18 11:19 [id number] 04/13/18 11:23 03/23/18 04/06/18 04/13/18 10:18 10:03 11:19 Wound Center Nurse 2 #6 RIGHT ISCHIUM -Time 10:20 10:04 11:19 -Correct Patient Yes Yes Yes -Correct Side, Site, Position Yes Yes Yes -Correct Procedure Yes Yes Yes -Procedure Performed Yes Yes Yes -Type of Procedure Debridement Debridement Debridement -Clinical Debridement Subcutaneous Subcutaneous Subcutaneous -Post Debridement Size (cm) - Length 5.5 3.2 2.4 -Post Debridement Size (cm) - Width 3.8 4.2 4.5 -Post Debridement Size (cm) - Depth 0.6 0.3 0.2 -Total Square Cm 20.90 13.44 10.80 -Wound/Ulcer Outcome Not Healed Not Healed Not Healed -Ulcer Cleansing Rinsed/ Rinsed/ Rinsed/ Irrigated with Irrigated with Irrigated with Saline Saline Saline -Foul Odor after Cleansing No No No -Bioengineered Tissue No No No -Bleeding Controlled with Pressure Pressure NA -Treatment Response Procedure Procedure Procedure Tolerated Well Tolerated Well Tolerated Well Pain Scale: 0-10 Numeric Is Patient Pain Free? Yes Yes Yes Wound debrided: Right ischium ulcer Wound Grade/Stage: stage 3 Type of Debridement: Excisional debridement Anesthesia Used: 5% Lidocaine Gel Depth: Down to and including healthy tissue, in the subcutaneous layer Instrument Used: 7mm curette Tissue Removed: Devitalized fibrin Severity: Limited To Skin Breakdown Amount of bleeding with debridement: Moderate Bleeding Controlled with: Compression and gauze Patient tolerated procedure well Assessment/Plan Active Problems Infected wound (Acute) Decubitus ulcer of right ischium, stage 3 (Acute) Spina bifida (Chronic) Chronic osteomyelitis, pelvic region and thigh (Chronic) right sacral area Malnutrition compromising bodily function (Chronic) Assessment: Decubitus ulcer stage III right ischium. Spina bifida. Paraplegia. Hydrocephalus. History of osteomyelitis. Infected ulcer Plan: Tosha by and then fluffed gauze cover with absorbent sachet. follow up in 1 week
--- NOTE | 2018-04-13 13:47 | PN.PCM_ITS ---
(1) Decubitus ulcer of right ischium, stage 3 Status: Acute Current Visit: Yes Code(s): L89.313 - Pressure ulcer of right buttock, stage 3 (2) Infected wound Status: Acute Current Visit: Yes Code(s): T14.8 - Other injury of unspecified body region; L08.9 - Local infection of the skin and subcutaneous tissue, unspecified (3) Chronic osteomyelitis, pelvic region and thigh Status: Chronic Current Visit: Yes Code(s): M86.659 - Other chronic osteomyelitis, unspecified thigh Comment: right sacral area (4) Malnutrition compromising bodily function Status: Chronic Current Visit: Yes Code(s): E46 - Unspecified protein- calorie malnutrition (5) Spina bifida Status: Chronic Current Visit: Yes Code(s): Q05.9 - Spina bifida, unspecified Type of Wound Date of Service: 04/13/18 Chief Complaint: Right ischium ulcer History of Wound: 21-year-old with past medical history of spina bifida paraplegia hydrocephalus osteomyelitis had been doing rather well until developed kidney stones and was taken to the hospital approximately 2 weeks ago spent in overnighter and developed a decubitus ulcer in the right issue him after receiving Lipsotripsy for his kidneys. Stage 3 ulcer with some slough no odor cultures will be taken. Patient will be started on Tosha moistened Adaptic abdominal dressings tape. Progress of Wound: The ulcer looks so much better this week he has finished the antibiotics for his bacteria is and anaerobes first was Augmentin and metronidazole also. After he is finished with the Augmentin then doxycycline for the other aerobic type bacteria that is growing in his wound. The wound itself looks cleaner operator but still very macerated around the perimeter already and was able to debride very well this week. We discontinued the Adaptic week and see if that makes a difference. This week we will stop moisturizing anything and use dry Promogran fluff gauze and then sorban sachet . - Physical Exam Vital Signs Temp Pulse Resp BP 96.9 F L 81 18 107/62 04/13/18 10:13 04/13/18 10:13 04/13/18 10:13 04/13/18 10:13 General: Oriented x3, Cooperative, Well developed HEENT: Atraumatic, PERRLA Oral: Moist Mucosa Neck: Supple, No JVD Lungs: Clear to auscultation, Normal air movement Cardiovascular: Regular rate, Regular Rhythm Abdomen: Bowel Sounds Present, Soft, Non Tender, No Hepato-splenomegaly Extremities: No clubbing, No edema Skin: Ulcer/ Wound - Right ischium ulcer Wound Measurements and Assessment WC - Nurse 1 - General Ulcer Measurement Start: 03/23/18 09:55 Freq: Status: Active Protocol: Activity Type Activity Date Activity User E-Sign Co-Sign Detail Recorded Client Recorded Date Recorded By Document 04/13/18 10:13 DL [id number] 04/13/18 10:29 DL 04/13/18 10:13 Wound Center Nurse 1 [Ulcer Assessment] #6 RIGHT ISCHIUM -Current Size (cm) - Length 4.5 -Current Size (cm) - Width 2.8 -Current Size (cm) - Depth 0.6 -Total Square Cm 12.60 -Photo Taken No -Exudate Amt Medium (34-66%) -Exudate Type Serosanguineous -Wound Margin Thickened -Granulation Amt Small (1-33%) -Granulation Quality [place] -Necrosis Amt Large (67-100%) -Necrotic Tissue Type Adherent Slough -Structure Exposed N/A -Texture (Ida-wound Skin Appearance) Scarring -Moisture (Ida-wound Skin Appearance Maceration ) -Color (Ida-wound Skin Appearance) No Abnormality -Temperature (Ida-wound Skin No Abnormality Appearance) (Pt Warm) -Ulcer Cleansing Wound Cleanser -Foul Odor after Cleansing No -Anesthetic Used 4% Lidocaine Solution WC - Nurse 2 - General Ulcer CM Notes Start: 03/23/18 09:55 Freq: Status: Active Protocol: Activity Type Activity Date Activity User E-Sign Co-Sign Detail Recorded Client Recorded Date Recorded By Document 04/13/18 11:19 [id number] 04/13/18 11:23 04/13/18 11:19 Wound Center Nurse 2 [Procedure/Treatment] -Time 11:19 -Correct Patient Yes -Correct Side, Site, Position Yes -Correct Procedure Yes -Procedure Performed Yes -Type of Procedure Debridement -Clinical Debridement Subcutaneous -Post Debridement Size (cm) - Length 2.4 -Post Debridement Size (cm) - Width 4.5 -Post Debridement Size (cm) - Depth 0.2 -Total Square Cm 10.80 -Wound/Ulcer Outcome Not Healed -Ulcer Cleansing Rinsed/ Irrigated with Saline -Foul Odor after Cleansing No -Bioengineered Tissue No -Bleeding Controlled with NA -Treatment Response Procedure Tolerated Well [See Physician Procedure note for Specifics] Pain Scale: 0-10 Numeric [Pain] -Is Patient Pain Free? Yes Musculoskeletal: No Tenderness to Palpation of Joints or Extremities Lymphatic: No Cervical, Supraclavicular, or Inguinal Adenopathy Neurological: Cranial nerves II-XII grossly intact, Neuro grossly intact Psych/Mental Status: Normal Affect, Appropriate, Alert and oriented to time, place, person, mood and affect Debridement Note Post-Debridement Measurements/Treatment WC - Nurse 2 - General Ulcer CM Notes Start: 03/23/18 09:55 Freq: Status: Active Protocol: Activity Type Activity Date Activity User E-Sign Co-Sign Detail Recorded Client Recorded Date Recorded By Document 03/23/18 10:18 [id number] 03/23/18 10:21 JF Document 04/06/18 10:03 DV [id number] 04/06/18 10:06 DV Document 04/13/18 11:19 [id number] 04/13/18 11:23 03/23/18 04/06/18 04/13/18 10:18 10:03 11:19 Wound Center Nurse 2 #6 RIGHT ISCHIUM -Time 10:20 10:04 11:19 -Correct Patient Yes Yes Yes -Correct Side, Site, Position Yes Yes Yes -Correct Procedure Yes Yes Yes -Procedure Performed Yes Yes Yes -Type of Procedure Debridement Debridement Debridement -Clinical Debridement Subcutaneous Subcutaneous Subcutaneous -Post Debridement Size (cm) - Length 5.5 3.2 2.4 -Post Debridement Size (cm) - Width 3.8 4.2 4.5 -Post Debridement Size (cm) - Depth 0.6 0.3 0.2 -Total Square Cm 20.90 13.44 10.80 -Wound/Ulcer Outcome Not Healed Not Healed Not Healed -Ulcer Cleansing Rinsed/ Rinsed/ Rinsed/ Irrigated with Irrigated with Irrigated with Saline Saline Saline -Foul Odor after Cleansing No No No -Bioengineered Tissue No No No -Bleeding Controlled with Pressure Pressure NA -Treatment Response Procedure Procedure Procedure Tolerated Well Tolerated Well Tolerated Well Pain Scale: 0-10 Numeric Is Patient Pain Free? Yes Yes Yes Wound debrided: Right ischium ulcer Wound Grade/Stage: stage 3 Type of Debridement: Excisional debridement Anesthesia Used: 5% Lidocaine Gel Depth: Down to and including healthy tissue, in the subcutaneous layer Instrument Used: 7mm curette Tissue Removed: Devitalized fibrin Severity: Limited To Skin Breakdown Amount of bleeding with debridement: Moderate Bleeding Controlled with: Compression and gauze Patient tolerated procedure well Assessment/Plan Active Problems Infected wound (Acute) Decubitus ulcer of right ischium, stage 3 (Acute) Spina bifida (Chronic) Chronic osteomyelitis, pelvic region and thigh (Chronic) right sacral area Malnutrition compromising bodily function (Chronic) Assessment: Decubitus ulcer stage III right ischium. Spina bifida. Paraplegia. Hydrocephalus. History of osteomyelitis. Infected ulcer Plan: Tosha by and then fluffed gauze cover with absorbent sachet. follow up in 1 week
[2018-04-20 09:37] VITALS: BP 113/65; PULSE 86; RESP 18; TEMP 37.3
--- NOTE | 2018-04-20 12:15 | PCM.WC.PN ---
(1) Decubitus ulcer of right ischium, stage 3 Status: Acute Current Visit: Yes Code(s): L89.313 - Pressure ulcer of right buttock, stage 3 (2) Infected wound Status: Acute Current Visit: Yes Code(s): T14.8 - Other injury of unspecified body region; L08.9 - Local infection of the skin and subcutaneous tissue, unspecified (3) Chronic osteomyelitis, pelvic region and thigh Status: Chronic Current Visit: Yes Code(s): M86.659 - Other chronic osteomyelitis, unspecified thigh Comment: right sacral area (4) Malnutrition compromising bodily function Status: Chronic Current Visit: Yes Code(s): E46 - Unspecified protein-calorie malnutrition (5) Spina bifida Status: Chronic Current Visit: Yes Code(s): Q05.9 - Spina bifida, unspecified Type of Wound Date of Service: 04/20/18 Chief Complaint: Right ischium ulcer History of Wound: 21-year-old with past medical history of spina bifida paraplegia hydrocephalus osteomyelitis had been doing rather well until developed kidney stones and was taken to the hospital approximately 2 weeks ago spent in overnighter and developed a decubitus ulcer in the right issue him after receiving Lipsotripsy for his kidneys. Stage 3 ulcer with some slough no odor cultures will be taken. Patient will be started on Tosha moistened Adaptic abdominal dressings tape. Progress of Wound: The ulcer is smaller in size but has developed at 6:00 undermining. Still having some maceration around the edge of the ulcer but not as bad as last week his mother has been using Aquacel silver to absorb more fluid. We will culture his ulcers next week the wound itself has no odor and not yellow will apply for epi fix for him also. Patient was requested a letter for jury duty and a letter was written to disqualify him. The wound itself looks yard cleaner but still very macerated around the perimeter already and was able to debride very well this week. We discontinued the Adaptic week and see if that makes a difference. This week we will stop moisturizing anything and use dry Promogran fluff gauze and then sorban sachet . - Physical Exam Vital Signs Temp Pulse Resp BP 99.1 F 86 18 113/65 04/20/18 09:37 04/20/18 09:37 04/20/18 09:37 04/20/18 09:37 General: Oriented x3, Cooperative, Well developed HEENT: Atraumatic, PERRLA Oral: Moist Mucosa Neck: Supple, No JVD Lungs: Clear to auscultation, Normal air movement Cardiovascular: Regular rate, Regular Rhythm Abdomen: Bowel Sounds Present, Soft, Non Tender, No Hepato-splenomegaly Extremities: No clubbing, No edema Skin: Ulcer/ Wound - Right ischium ulcer with undermining Wound Measurements and Assessment WC - Nurse 1 - General Ulcer Measurement Start: 03/23/18 09:55 Freq: Status: Active Protocol: Activity Type Activity Date Activity User E-Sign Co-Sign Detail Recorded Client Recorded Date Recorded By Document 04/20/18 09:37 DL [id number] 04/20/18 09:52 DL 04/20/18 09:37 Wound Center Nurse 1 [Ulcer Assessment] #6 RIGHT ISCHIUM -Current Size (cm) - Length 5 -Current Size (cm) - Width 2.5 -Current Size (cm) - Depth 1.2 -Total Square Cm 12.5 -Photo Taken No -Tunneling Yes -Tunneling Position (O'clock) 11 -Tunneling Distance (cm) 1.3 -Exudate Amt Medium (34-66%) -Exudate Type Serosanguineous -Wound Margin Thickened -Granulation Amt Small (1-33%) -Granulation Quality [place] Red -Necrosis Amt Large (67-100%) -Necrotic Tissue Type Adherent Slough -Structure Exposed N/A -Texture (Ida-wound Skin Appearance) Scarring -Moisture (Ida-wound Skin Appearance Maceration ) -Color (Ida-wound Skin Appearance) No Abnormality -Temperature (Ida-wound Skin No Abnormality Appearance) (Pt Warm) -Ulcer Cleansing Rinsed/ Irrigated with Saline -Foul Odor after Cleansing No -Anesthetic Used 4% Lidocaine Solution WC - Nurse 2 - General Ulcer CM Notes Start: 03/23/18 09:55 Freq: Status: Active Protocol: Activity Type Activity Date Activity User E-Sign Co-Sign Detail Recorded Client Recorded Date Recorded By Document 04/20/18 10:34 [email or web address] [id number] 04/20/18 10:39 JS 04/20/18 10:34 Wound Center Nurse 2 [Procedure/Treatment] -Time 10:37 -Correct Patient Yes -Correct Side, Site, Position Yes -Correct Procedure Yes -Procedure Performed Yes -Type of Procedure Debridement -Clinical Debridement Muscle -Post Debridement Size (cm) - Length 2.2 -Post Debridement Size (cm) - Width 4.5 -Post Debridement Size (cm) - Depth 0.3 -Total Square Cm 9.90 -Wound/Ulcer Outcome Not Healed -Ulcer Cleansing Rinsed/ Irrigated with Saline -Foul Odor after Cleansing No -Bioengineered Tissue No -Bleeding Controlled with NA -Treatment Response Procedure Tolerated Well [See Physician Procedure note for Specifics] Pain Scale: 0-10 Numeric [Pain] -Is Patient Pain Free? Yes Musculoskeletal: No Tenderness to Palpation of Joints or Extremities Lymphatic: No Cervical, Supraclavicular, or Inguinal Adenopathy Neurological: Cranial nerves II-XII grossly intact, Neuro grossly intact Psych/Mental Status: Normal Affect, Appropriate Debridement Note Post-Debridement Measurements/Treatment WC - Nurse 2 - General Ulcer CM Notes Start: 03/23/18 09:55 Freq: Status: Active Protocol: Activity Type Activity Date Activity User E-Sign Co-Sign Detail Recorded Client Recorded Date Recorded By Document 03/23/18 10:18 [id number] 03/23/18 10:21 Document 04/06/18 10:03 DV [id number] 04/06/18 10:06 DV Document 04/13/18 11:19 [id number] 04/13/18 11:23 CS Document 04/20/18 10:34 [id number] 04/20/18 10:39 03/23/18 04/06/18 04/13/18 10:18 10:03 11:19 Wound Center Nurse 2 #6 RIGHT ISCHIUM -Time 10:20 10:04 11:19 -Correct Patient Yes Yes Yes -Correct Side, Site, Position Yes Yes Yes -Correct Procedure Yes Yes Yes -Procedure Performed Yes Yes Yes -Type of Procedure Debridement Debridement Debridement -Clinical Debridement Subcutaneous Subcutaneous Subcutaneous -Post Debridement Size (cm) - Length 5.5 3.2 2.4 -Post Debridement Size (cm) - Width 3.8 4.2 4.5 -Post Debridement Size (cm) - Depth 0.6 0.3 0.2 -Total Square Cm 20.90 13.44 10.80 -Wound/Ulcer Outcome Not Healed Not Healed Not Healed -Ulcer Cleansing Rinsed/ Rinsed/ Rinsed/ Irrigated with Irrigated with Irrigated with Saline Saline Saline -Foul Odor after Cleansing No No No -Bioengineered Tissue No No No -Bleeding Controlled with Pressure Pressure NA -Treatment Response Procedure Procedure Procedure Tolerated Well Tolerated Well Tolerated Well Pain Scale: 0-10 Numeric Is Patient Pain Free? Yes Yes Yes 04/20/18 10:34 Wound Center Nurse 2 #6 RIGHT ISCHIUM -Time 10:37 -Correct Patient Yes -Correct Side, Site, Position Yes -Correct Procedure Yes -Procedure Performed Yes -Type of Procedure Debridement -Clinical Debridement Muscle -Post Debridement Size (cm) - Length 2.2 -Post Debridement Size (cm) - Width 4.5 -Post Debridement Size (cm) - Depth 0.3 -Total Square Cm 9.90 -Wound/Ulcer Outcome Not Healed -Ulcer Cleansing Rinsed/ Irrigated with Saline -Foul Odor after Cleansing No -Bioengineered Tissue No -Bleeding Controlled with NA -Treatment Response Procedure Tolerated Well Pain Scale: 0-10 Numeric Is Patient Pain Free? Yes Type of Debridement: Excisional debridement Anesthesia Used: 5% Lidocaine Gel Depth: Down to and including healthy tissue, in the subcutaneous layer Percentage of wound debrided: 100 Instrument Used: 7mm curette Tissue Removed: Fibrin Amount of bleeding with debridement: Moderate Assessment/Plan Active Problems Infected wound (Acute) Decubitus ulcer of right ischium, stage 3 (Acute) Spina bifida (Chronic) Chronic osteomyelitis, pelvic region and thigh (Chronic) right sacral area Malnutrition compromising bodily function (Chronic) Assessment: Decubitus ulcer stage III right ischium. Spina bifida. Paraplegia. Hydrocephalus. History of osteomyelitis. Infected ulcer Plan: Aquacel silver to the undermined area and tosha on the ulcer with fluffed gauze cover with absorbent sachet. follow up in 1 week
--- NOTE | 2018-04-20 12:20 | PN.PCM_ITS ---
(1) Decubitus ulcer of right ischium, stage 3 Status: Acute Current Visit: Yes Code(s): L89.313 - Pressure ulcer of right buttock, stage 3 (2) Infected wound Status: Acute Current Visit: Yes Code(s): T14.8 - Other injury of unspecified body region; L08.9 - Local infection of the skin and subcutaneous tissue, unspecified (3) Chronic osteomyelitis, pelvic region and thigh Status: Chronic Current Visit: Yes Code(s): M86.659 - Other chronic osteomyelitis, unspecified thigh Comment: right sacral area (4) Malnutrition compromising bodily function Status: Chronic Current Visit: Yes Code(s): E46 - Unspecified protein- calorie malnutrition (5) Spina bifida Status: Chronic Current Visit: Yes Code(s): Q05.9 - Spina bifida, unspecified Type of Wound Date of Service: 04/20/18 Chief Complaint: Right ischium ulcer History of Wound: 21-year-old with past medical history of spina bifida paraplegia hydrocephalus osteomyelitis had been doing rather well until developed kidney stones and was taken to the hospital approximately 2 weeks ago spent in overnighter and developed a decubitus ulcer in the right issue him after receiving Lipsotripsy for his kidneys. Stage 3 ulcer with some slough no odor cultures will be taken. Patient will be started on Tosha moistened Adaptic abdominal dressings tape. Progress of Wound: The ulcer is smaller in size but has developed at 6:00 undermining. Still having some maceration around the edge of the ulcer but not as bad as last week his mother has been using Aquacel silver to absorb more fluid. We will culture his ulcers next week the wound itself has no odor and not yellow will apply for epi fix for him also. Patient was requested a letter for jury duty and a letter was written to disqualify him. The wound itself looks boat cleaner but still very macerated around the perimeter already and was able to debride very well this week. We discontinued the Adaptic week and see if that makes a difference. This week we will stop moisturizing anything and use dry Promogran fluff gauze and then sorban sachet . - Physical Exam Vital Signs Temp Pulse Resp BP 99.1 F 86 18 113/65 04/20/18 09:37 04/20/18 09:37 04/20/18 09:37 04/20/18 09:37 General: Oriented x3, Cooperative, Well developed HEENT: Atraumatic, PERRLA Oral: Moist Mucosa Neck: Supple, No JVD Lungs: Clear to auscultation, Normal air movement Cardiovascular: Regular rate, Regular Rhythm Abdomen: Bowel Sounds Present, Soft, Non Tender, No Hepato-splenomegaly Extremities: No clubbing, No edema Skin: Ulcer/ Wound - Right ischium ulcer with undermining Wound Measurements and Assessment WC - Nurse 1 - General Ulcer Measurement Start: 03/23/18 09:55 Freq: Status: Active Protocol: Activity Type Activity Date Activity User E-Sign Co-Sign Detail Recorded Client Recorded Date Recorded By Document 04/20/18 09:37 DL [id number] 04/20/18 09:52 DL 04/20/18 09:37 Wound Center Nurse 1 [Ulcer Assessment] #6 RIGHT ISCHIUM -Current Size (cm) - Length 5 -Current Size (cm) - Width 2.5 -Current Size (cm) - Depth 1.2 -Total Square Cm 12.5 -Photo Taken No -Tunneling Yes -Tunneling Position (O'clock) 11 -Tunneling Distance (cm) 1.3 -Exudate Amt Medium (34-66%) -Exudate Type Serosanguineous -Wound Margin Thickened -Granulation Amt Small (1-33%) -Granulation Quality [place] Red -Necrosis Amt Large (67-100%) -Necrotic Tissue Type Adherent Slough -Structure Exposed N/A -Texture (Ida-wound Skin Appearance) Scarring -Moisture (Ida-wound Skin Appearance Maceration ) -Color (Ida-wound Skin Appearance) No Abnormality -Temperature (Ida-wound Skin No Abnormality Appearance) (Pt Warm) -Ulcer Cleansing Rinsed/ Irrigated with Saline -Foul Odor after Cleansing No -Anesthetic Used 4% Lidocaine Solution WC - Nurse 2 - General Ulcer CM Notes Start: 03/23/18 09:55 Freq: Status: Active Protocol: Activity Type Activity Date Activity User E-Sign Co-Sign Detail Recorded Client Recorded Date Recorded By Document 04/20/18 10:34 MIKKI [id number] 04/20/18 10:39 JS 04/20/18 10:34 Wound Center Nurse 2 [Procedure/Treatment] -Time 10:37 -Correct Patient Yes -Correct Side, Site, Position Yes -Correct Procedure Yes -Procedure Performed Yes -Type of Procedure Debridement -Clinical Debridement Muscle -Post Debridement Size (cm) - Length 2.2 -Post Debridement Size (cm) - Width 4.5 -Post Debridement Size (cm) - Depth 0.3 -Total Square Cm 9.90 -Wound/Ulcer Outcome Not Healed -Ulcer Cleansing Rinsed/ Irrigated with Saline -Foul Odor after Cleansing No -Bioengineered Tissue No -Bleeding Controlled with NA -Treatment Response Procedure Tolerated Well [See Physician Procedure note for Specifics] Pain Scale: 0-10 Numeric [Pain] -Is Patient Pain Free? Yes Musculoskeletal: No Tenderness to Palpation of Joints or Extremities Lymphatic: No Cervical, Supraclavicular, or Inguinal Adenopathy Neurological: Cranial nerves II-XII grossly intact, Neuro grossly intact Psych/Mental Status: Normal Affect, Appropriate Debridement Note Post-Debridement Measurements/Treatment WC - Nurse 2 - General Ulcer CM Notes Start: 03/23/18 09:55 Freq: Status: Active Protocol: Activity Type Activity Date Activity User E-Sign Co-Sign Detail Recorded Client Recorded Date Recorded By Document 03/23/18 10:18 [id number] 03/23/18 10:21 Document 04/06/18 10:03 DV [id number] 04/06/18 10:06 DV Document 04/13/18 11:19 [id number] 04/13/18 11:23 CS Document 04/20/18 10:34 [id number] 04/20/18 10:39 03/23/18 04/06/18 04/13/18 10:18 10:03 11:19 Wound Center Nurse 2 #6 RIGHT ISCHIUM -Time 10:20 10:04 11:19 -Correct Patient Yes Yes Yes -Correct Side, Site, Position Yes Yes Yes -Correct Procedure Yes Yes Yes -Procedure Performed Yes Yes Yes -Type of Procedure Debridement Debridement Debridement -Clinical Debridement Subcutaneous Subcutaneous Subcutaneous -Post Debridement Size (cm) - Length 5.5 3.2 2.4 -Post Debridement Size (cm) - Width 3.8 4.2 4.5 -Post Debridement Size (cm) - Depth 0.6 0.3 0.2 -Total Square Cm 20.90 13.44 10.80 -Wound/Ulcer Outcome Not Healed Not Healed Not Healed -Ulcer Cleansing Rinsed/ Rinsed/ Rinsed/ Irrigated with Irrigated with Irrigated with Saline Saline Saline -Foul Odor after Cleansing No No No -Bioengineered Tissue No No No -Bleeding Controlled with Pressure Pressure NA -Treatment Response Procedure Procedure Procedure Tolerated Well Tolerated Well Tolerated Well Pain Scale: 0-10 Numeric Is Patient Pain Free? Yes Yes Yes 04/20/18 10:34 Wound Center Nurse 2 #6 RIGHT ISCHIUM -Time 10:37 -Correct Patient Yes -Correct Side, Site, Position Yes -Correct Procedure Yes -Procedure Performed Yes -Type of Procedure Debridement -Clinical Debridement Muscle -Post Debridement Size (cm) - Length 2.2 -Post Debridement Size (cm) - Width 4.5 -Post Debridement Size (cm) - Depth 0.3 -Total Square Cm 9.90 -Wound/Ulcer Outcome Not Healed -Ulcer Cleansing Rinsed/ Irrigated with Saline -Foul Odor after Cleansing No -Bioengineered Tissue No -Bleeding Controlled with NA -Treatment Response Procedure Tolerated Well Pain Scale: 0-10 Numeric Is Patient Pain Free? Yes Type of Debridement: Excisional debridement Anesthesia Used: 5% Lidocaine Gel Depth: Down to and including healthy tissue, in the subcutaneous layer Percentage of wound debrided: 100 Instrument Used: 7mm curette Tissue Removed: Fibrin Amount of bleeding with debridement: Moderate Assessment/Plan Active Problems Infected wound (Acute) Decubitus ulcer of right ischium, stage 3 (Acute) Spina bifida (Chronic) Chronic osteomyelitis, pelvic region and thigh (Chronic) right sacral area Malnutrition compromising bodily function (Chronic) Assessment: Decubitus ulcer stage III right ischium. Spina bifida. Paraplegia. Hydrocephalus. History of osteomyelitis. Infected ulcer Plan: Aquacel silver to the undermined area and tosha on the ulcer with fluffed gauze cover with absorbent sachet. follow up in 1 week
== END 2018-04-21 23:59 ==
LOC: WC 09:30
PROVIDERS: Family Provider Family Medicine; PCP Family Medicine; Visit Provider Nurse Practitioner
DX: L89.213 Pressure ulcer of right hip, stage 3 (principal); M86.659 Other chronic osteomyelitis, unspecified thigh; Q05.9 Spina bifida, unspecified; G82.20 Paraplegia, unspecified; G91.9 Hydrocephalus, unspecified
CPT/HCPCS: 11042; 11043; 11045

== ENCOUNTER 2018-05-11 09:30 | Outpatient (RCR) | payer OTHER, MEDICAID, SELFPAY ==
[2018-04-22 01:01] VITALS: BP 113/65; PULSE 86; RESP 18; TEMP 37.3
[2018-04-27 09:50] VITALS: BP 126/80; PULSE 89; RESP 16; TEMP 37
--- NOTE | 2018-04-27 14:13 | PCM.WC.PN ---
(1) Decubitus ulcer of right ischium, stage 3 Status: Acute Current Visit: Yes Code(s): L89.313 - Pressure ulcer of right buttock, stage 3 (2) Infected wound Status: Acute Current Visit: No Code(s): T14.8 - Other injury of unspecified body region; L08.9 - Local infection of the skin and subcutaneous tissue, unspecified (3) History of osteomyelitis Status: Chronic Current Visit: Yes Code(s): Z87.39 - Personal history of other diseases of the musculoskeletal system and connective tissue Comment: right sacral area (4) Malnutrition compromising bodily function Status: Chronic Current Visit: Yes Code(s): E46 - Unspecified protein-calorie malnutrition (5) Spina bifida Status: Chronic Current Visit: No Code(s): Q05.9 - Spina bifida, unspecified Type of Wound Date of Service: 04/27/18 Chief Complaint: Right ischium ulcer History of Wound: 21-year-old with past medical history of spina bifida paraplegia hydrocephalus osteomyelitis had been doing rather well until developed kidney stones and was taken to the hospital approximately 2 weeks ago spent in overnighter and developed a decubitus ulcer in the right issue him after receiving Lipsotripsy for his kidneys. Stage 3 ulcer with some slough no odor cultures will be taken. Patient will be started on Tosha moistened Adaptic abdominal dressings tape. Progress of Wound: The ulcer is smaller in size but has developed at 1:00 undermining. Still having some maceration around the edge of the ulcer but not as bad as last week his mother has been using Aquacel silver to absorb more fluid. We will culture his ulcers next week the wound itself has no odor and not yellow will apply for epi fix for him also. Patient was requested a letter for jury duty and a letter was written to disqualify him. We discontinued the Adaptic week and see if that makes a difference. This week we will stop moisturizing anything and use dry Promogran fluff gauze and then sorban sachet . Also suggested packing the undermining area with Aquacel silver. - Physical Exam Vital Signs Temp Pulse Resp BP 98.6 F 89 16 126/80 H 04/27/18 09:50 04/27/18 09:50 04/27/18 09:50 04/27/18 09:50 General: Oriented x3, Cooperative, Well developed HEENT: Atraumatic, PERRLA Oral: Moist Mucosa Neck: Supple, No JVD Lungs: Clear to auscultation, Normal air movement Cardiovascular: Regular rate, Regular Rhythm Abdomen: Bowel Sounds Present, Soft, Non Tender, No Hepato-splenomegaly Extremities: No clubbing, No edema Wound Measurements and Assessment WC - Nurse 1 - General Ulcer Measurement Start: 04/27/18 09:50 Freq: Status: Active Protocol: Activity Type Activity Date Activity User E-Sign Co-Sign Detail Recorded Client Recorded Date Recorded By Document 04/27/18 09:50 [id number] 04/27/18 09:56 CS 04/27/18 09:50 Wound Center Nurse 1 [Ulcer Assessment] #6 RIGHT ISCHIUM -Combined with other wound No -Current Size (cm) - Length 5.4 -Current Size (cm) - Width 2.5 -Current Size (cm) - Depth 0.7 -Total Square Cm 13.50 -Photo Taken No -Tunneling No -Undermining/Tunneling Yes -Undermining/Tunneling Starts (O' 8 clock) -Undermining/Tunneling Ends (O'clock) 11 -Maximum Distance (cm) 1.7 -Exudate Amt Medium (34-66%) -Exudate Type Serous -Wound Margin Distinct, Outline Attached -Granulation Amt Large (67-100%) -Granulation Quality [place] -Slough/Fibrin Yes -Necrosis Amt Small (1-33%) -Necrotic Tissue Type Adherent Slough -Structure Exposed None/Limited to Skin Breakdown -Texture (Ida-wound Skin Appearance) Assessed -Moisture (Ida-wound Skin Appearance Assessed ) Maceration Dry/Scaly -Color (Ida-wound Skin Appearance) Assessed -Temperature (Ida-wound Skin No Abnormality Appearance) (Pt Warm) -Tenderness on Palpation (Ida-wound No Skin Appearance) -Ulcer Cleansing Wound Cleanser -Foul Odor after Cleansing No -Anesthetic Used 4% Lidocaine Solution [Edema Assessment] -Lower Limb Edema Present NA WC - Nurse 2 - General Ulcer CM Notes Start: 04/27/18 09:50 Freq: Status: Active Protocol: Activity Type Activity Date Activity User E-Sign Co-Sign Detail Recorded Client Recorded Date Recorded By Document 04/27/18 10:52 [email or web address] [id number] 04/27/18 10:55 04/27/18 10:52 Wound Center Nurse 2 [Procedure/Treatment] #6 RIGHT ISCHIUM -Time 10:53 -Correct Patient Yes -Correct Side, Site, Position Yes -Correct Procedure Yes -Procedure Performed Yes -Type of Procedure Debridement -Clinical Debridement Muscle -Post Debridement Size (cm) - Length 3.0 -Post Debridement Size (cm) - Width 5.0 -Post Debridement Size (cm) - Depth 0.4 -Total Square Cm 15.00 -Wound/Ulcer Outcome Not Healed -Ulcer Cleansing Rinsed/ Irrigated with Saline -Foul Odor after Cleansing No -Bioengineered Tissue No -Bleeding Controlled with NA -Treatment Response Procedure Tolerated Well [See Physician Procedure note for Specifics] Pain Scale: 0-10 Numeric [Pain] -Is Patient Pain Free? Yes Musculoskeletal: No Tenderness to Palpation of Joints or Extremities Lymphatic: No Cervical, Supraclavicular, or Inguinal Adenopathy Neurological: Cranial nerves II-XII grossly intact, Neuro grossly intact Psych/Mental Status: Normal Affect, Appropriate, Alert and oriented to time, place, person, mood and affect Debridement Note Post-Debridement Measurements/Treatment WC - Nurse 2 - General Ulcer CM Notes Start: 04/27/18 09:50 Freq: Status: Active Protocol: Activity Type Activity Date Activity User E-Sign Co-Sign Detail Recorded Client Recorded Date Recorded By Document 04/27/18 10:52 MIKKI [id number] 04/27/18 10:55 04/27/18 10:52 Wound Center Nurse 2 #6 RIGHT ISCHIUM -Time 10:53 -Correct Patient Yes -Correct Side, Site, Position Yes -Correct Procedure Yes -Procedure Performed Yes -Type of Procedure Debridement -Clinical Debridement Muscle -Post Debridement Size (cm) - Length 3.0 -Post Debridement Size (cm) - Width 5.0 -Post Debridement Size (cm) - Depth 0.4 -Total Square Cm 15.00 -Wound/Ulcer Outcome Not Healed -Ulcer Cleansing Rinsed/ Irrigated with Saline -Foul Odor after Cleansing No -Bioengineered Tissue No -Bleeding Controlled with NA -Treatment Response Procedure Tolerated Well Pain Scale: 0-10 Numeric Is Patient Pain Free? Yes Wound debrided: Right ischial ulcer Wound Grade/Stage: stage 3 Type of Debridement: Excisional debridement Anesthesia Used: 5% Lidocaine Gel Depth: Down to and including healthy tissue, in the subcutaneous layer, to muscle Percentage of wound debrided: 100 Instrument Used: 7mm curette Tissue Removed: Fibrin Severity: Limited To Skin Breakdown Amount of bleeding with debridement: Moderate Bleeding Controlled with: Compression and gauze Patient tolerated procedure well Assessment/Plan Active Problems Decubitus ulcer of right ischium, stage 3 (Acute) History of osteomyelitis (Chronic) right sacral area Malnutrition compromising bodily function (Chronic) Assessment: Decubitus ulcer stage III right ischium. Spina bifida. Paraplegia. Hydrocephalus. History of osteomyelitis. Infected ulcer Plan: Aquacel silver to the undermined area and tosha on the ulcer with fluffed gauze cover with absorbent sachet. follow up in 1 week
--- NOTE | 2018-04-27 14:17 | PN.PCM_ITS ---
(1) Decubitus ulcer of right ischium, stage 3 Status: Acute Current Visit: Yes Code(s): L89.313 - Pressure ulcer of right buttock, stage 3 (2) Infected wound Status: Acute Current Visit: No Code(s): T14.8 - Other injury of unspecified body region; L08.9 - Local infection of the skin and subcutaneous tissue, unspecified (3) History of osteomyelitis Status: Chronic Current Visit: Yes Code(s): Z87.39 - Personal history of other diseases of the musculoskeletal system and connective tissue Comment: right sacral area (4) Malnutrition compromising bodily function Status: Chronic Current Visit: Yes Code(s): E46 - Unspecified protein- calorie malnutrition (5) Spina bifida Status: Chronic Current Visit: No Code(s): Q05.9 - Spina bifida, unspecified Type of Wound Date of Service: 04/27/18 Chief Complaint: Right ischium ulcer History of Wound: 21-year-old with past medical history of spina bifida paraplegia hydrocephalus osteomyelitis had been doing rather well until developed kidney stones and was taken to the hospital approximately 2 weeks ago spent in overnighter and developed a decubitus ulcer in the right issue him after receiving Lipsotripsy for his kidneys. Stage 3 ulcer with some slough no odor cultures will be taken. Patient will be started on Tosha moistened Adaptic abdominal dressings tape. Progress of Wound: The ulcer is smaller in size but has developed at 1:00 undermining. Still having some maceration around the edge of the ulcer but not as bad as last week his mother has been using Aquacel silver to absorb more fluid. We will culture his ulcers next week the wound itself has no odor and not yellow will apply for epi fix for him also. Patient was requested a letter for jury duty and a letter was written to disqualify him. We discontinued the Adaptic week and see if that makes a difference. This week we will stop moisturizing anything and use dry Promogran fluff gauze and then sorban sachet . Also suggested packing the undermining area with Aquacel silver. - Physical Exam Vital Signs Temp Pulse Resp BP 98.6 F 89 16 126/80 H 04/27/18 09:50 04/27/18 09:50 04/27/18 09:50 04/27/18 09:50 General: Oriented x3, Cooperative, Well developed HEENT: Atraumatic, PERRLA Oral: Moist Mucosa Neck: Supple, No JVD Lungs: Clear to auscultation, Normal air movement Cardiovascular: Regular rate, Regular Rhythm Abdomen: Bowel Sounds Present, Soft, Non Tender, No Hepato-splenomegaly Extremities: No clubbing, No edema Wound Measurements and Assessment WC - Nurse 1 - General Ulcer Measurement Start: 04/27/18 09:50 Freq: Status: Active Protocol: Activity Type Activity Date Activity User E-Sign Co-Sign Detail Recorded Client Recorded Date Recorded By Document 04/27/18 09:50 [id number] 04/27/18 09:56 CS 04/27/18 09:50 Wound Center Nurse 1 [Ulcer Assessment] #6 RIGHT ISCHIUM -Combined with other wound No -Current Size (cm) - Length 5.4 -Current Size (cm) - Width 2.5 -Current Size (cm) - Depth 0.7 -Total Square Cm 13.50 -Photo Taken No -Tunneling No -Undermining/Tunneling Yes -Undermining/Tunneling Starts (O' 8 clock) -Undermining/Tunneling Ends (O'clock) 11 -Maximum Distance (cm) 1.7 -Exudate Amt Medium (34-66%) -Exudate Type Serous -Wound Margin Distinct, Outline Attached -Granulation Amt Large (67-100%) -Granulation Quality [employer] -Slough/Fibrin Yes -Necrosis Amt Small (1-33%) -Necrotic Tissue Type Adherent Slough -Structure Exposed None/Limited to Skin Breakdown -Texture (Ida-wound Skin Appearance) Assessed -Moisture (Ida-wound Skin Appearance Assessed ) Maceration Dry/Scaly -Color (Ida-wound Skin Appearance) Assessed -Temperature (Ida-wound Skin No Abnormality Appearance) (Pt Warm) -Tenderness on Palpation (Ida-wound No Skin Appearance) -Ulcer Cleansing Wound Cleanser -Foul Odor after Cleansing No -Anesthetic Used 4% Lidocaine Solution [Edema Assessment] -Lower Limb Edema Present NA WC - Nurse 2 - General Ulcer CM Notes Start: 04/27/18 09:50 Freq: Status: Active Protocol: Activity Type Activity Date Activity User E-Sign Co-Sign Detail Recorded Client Recorded Date Recorded By Document 04/27/18 10:52 [email or web address] [id number] 04/27/18 10:55 04/27/18 10:52 Wound Center Nurse 2 [Procedure/Treatment] #6 RIGHT ISCHIUM -Time 10:53 -Correct Patient Yes -Correct Side, Site, Position Yes -Correct Procedure Yes -Procedure Performed Yes -Type of Procedure Debridement -Clinical Debridement Muscle -Post Debridement Size (cm) - Length 3.0 -Post Debridement Size (cm) - Width 5.0 -Post Debridement Size (cm) - Depth 0.4 -Total Square Cm 15.00 -Wound/Ulcer Outcome Not Healed -Ulcer Cleansing Rinsed/ Irrigated with Saline -Foul Odor after Cleansing No -Bioengineered Tissue No -Bleeding Controlled with NA -Treatment Response Procedure Tolerated Well [See Physician Procedure note for Specifics] Pain Scale: 0-10 Numeric [Pain] -Is Patient Pain Free? Yes Musculoskeletal: No Tenderness to Palpation of Joints or Extremities Lymphatic: No Cervical, Supraclavicular, or Inguinal Adenopathy Neurological: Cranial nerves II-XII grossly intact, Neuro grossly intact Psych/Mental Status: Normal Affect, Appropriate, Alert and oriented to time, place, person, mood and affect Debridement Note Post-Debridement Measurements/Treatment WC - Nurse 2 - General Ulcer CM Notes Start: 04/27/18 09:50 Freq: Status: Active Protocol: Activity Type Activity Date Activity User E-Sign Co-Sign Detail Recorded Client Recorded Date Recorded By Document 04/27/18 10:52 [email or web address] [id number] 04/27/18 10:55 04/27/18 10:52 Wound Center Nurse 2 #6 RIGHT ISCHIUM -Time 10:53 -Correct Patient Yes -Correct Side, Site, Position Yes -Correct Procedure Yes -Procedure Performed Yes -Type of Procedure Debridement -Clinical Debridement Muscle -Post Debridement Size (cm) - Length 3.0 -Post Debridement Size (cm) - Width 5.0 -Post Debridement Size (cm) - Depth 0.4 -Total Square Cm 15.00 -Wound/Ulcer Outcome Not Healed -Ulcer Cleansing Rinsed/ Irrigated with Saline -Foul Odor after Cleansing No -Bioengineered Tissue No -Bleeding Controlled with NA -Treatment Response Procedure Tolerated Well Pain Scale: 0-10 Numeric Is Patient Pain Free? Yes Wound debrided: Right ischial ulcer Wound Grade/Stage: stage 3 Type of Debridement: Excisional debridement Anesthesia Used: 5% Lidocaine Gel Depth: Down to and including healthy tissue, in the subcutaneous layer, to muscle Percentage of wound debrided: 100 Instrument Used: 7mm curette Tissue Removed: Fibrin Severity: Limited To Skin Breakdown Amount of bleeding with debridement: Moderate Bleeding Controlled with: Compression and gauze Patient tolerated procedure well Assessment/Plan Active Problems Decubitus ulcer of right ischium, stage 3 (Acute) History of osteomyelitis (Chronic) right sacral area Malnutrition compromising bodily function (Chronic) Assessment: Decubitus ulcer stage III right ischium. Spina bifida. Paraplegia. Hydrocephalus. History of osteomyelitis. Infected ulcer Plan: Aquacel silver to the undermined area and tosha on the ulcer with fluffed gauze cover with absorbent sachet. follow up in 1 week
[2018-05-04 09:55] VITALS: BP 98/70; PULSE 87; RESP 16; TEMP 35.9
--- NOTE | 2018-05-04 10:36 | PCM.WC.PN ---
(1) Decubitus ulcer of right ischium, stage 3 Status: Acute Current Visit: Yes Code(s): L89.313 - Pressure ulcer of right buttock, stage 3 (2) Infected wound Status: Acute Current Visit: No Code(s): T14.8 - Other injury of unspecified body region; L08.9 - Local infection of the skin and subcutaneous tissue, unspecified (3) History of osteomyelitis Status: Chronic Current Visit: Yes Code(s): Z87.39 - Personal history of other diseases of the musculoskeletal system and connective tissue Comment: right sacral area (4) Malnutrition compromising bodily function Status: Chronic Current Visit: Yes Code(s): E46 - Unspecified protein-calorie malnutrition (5) Spina bifida Status: Chronic Current Visit: Yes Code(s): Q05.9 - Spina bifida, unspecified Type of Wound Date of Service: 05/04/18 Chief Complaint: Right ischium ulcer History of Wound: 21-year-old with past medical history of spina bifida paraplegia hydrocephalus osteomyelitis had been doing rather well until developed kidney stones and was taken to the hospital approximately 2 weeks ago spent in overnighter and developed a decubitus ulcer in the right issue him after receiving Lipsotripsy for his kidneys. Stage 3 ulcer with some slough no odor cultures will be taken. Patient will be started on Tosha moistened Adaptic abdominal dressings tape. Progress of Wound: The ulcer is smaller in size but has developed at 1:00 undermining. Still having some maceration around the edge of the ulcer but not as in the past . Using Tosha and Aquacel silver in the undermining area packed well. Fluff gauze and then sorban sachet . - Physical Exam Vital Signs Temp Pulse Resp BP 96.7 F L 87 16 98/70 05/04/18 09:55 05/04/18 09:55 05/04/18 09:55 05/04/18 09:55 General: Oriented x3, Cooperative, Well developed HEENT: Atraumatic, PERRLA Oral: Moist Mucosa Neck: Supple, No JVD Lungs: Clear to auscultation, Normal air movement Cardiovascular: Regular rate, Regular Rhythm Abdomen: Bowel Sounds Present, Soft, Non Tender, No Hepato-splenomegaly Extremities: No clubbing, No edema Skin: Ulcer/ Wound - Left ischial ulcer with undermining Wound Measurements and Assessment WC - Nurse 1 - General Ulcer Measurement Start: 04/27/18 09:50 Freq: Status: Active Protocol: Activity Type Activity Date Activity User E-Sign Co-Sign Detail Recorded Client Recorded Date Recorded By Document 05/04/18 09:55 DL [id number] 05/04/18 09:57 DL 05/04/18 09:55 Wound Center Nurse 1 [Ulcer Assessment] #6 RIGHT ISCHIUM -Current Size (cm) - Length 3 -Current Size (cm) - Width 5.6 -Current Size (cm) - Depth 0.6 -Total Square Cm 16.8 -Photo Taken No -Exudate Amt Medium (34-66%) -Exudate Type Serosanguineous -Wound Margin Thickened -Granulation Amt Medium (34-66%) -Granulation Quality [place] Red -Necrosis Amt Medium (34-66%) -Necrotic Tissue Type Adherent Slough -Structure Exposed N/A -Texture (Ida-wound Skin Appearance) Scarring -Moisture (Ida-wound Skin Appearance Maceration ) -Color (Ida-wound Skin Appearance) Rubor -Temperature (Ida-wound Skin No Abnormality Appearance) (Pt Warm) -Ulcer Cleansing Wound Cleanser -Foul Odor after Cleansing No -Anesthetic Used 4% Lidocaine Solution WC - Nurse 2 - General Ulcer CM Notes Start: 04/27/18 09:50 Freq: Status: Active Protocol: Activity Type Activity Date Activity User E-Sign Co-Sign Detail Recorded Client Recorded Date Recorded By Document 05/04/18 10:16 MIKKI [id number] 05/04/18 10:17 [email or web address] 05/04/18 10:16 Wound Center Nurse 2 [Procedure/Treatment] -Time 10:17 -Correct Patient Yes -Correct Side, Site, Position Yes -Correct Procedure Yes -Procedure Performed Yes -Type of Procedure Debridement -Clinical Debridement Muscle -Post Debridement Size (cm) - Length 2.4 -Post Debridement Size (cm) - Width 5.0 -Post Debridement Size (cm) - Depth 0.4 -Total Square Cm 12.00 -Wound/Ulcer Outcome Not Healed -Ulcer Cleansing Rinsed/ Irrigated with Saline -Foul Odor after Cleansing No -Bioengineered Tissue No -Bleeding Controlled with NA -Treatment Response Procedure Tolerated Well [See Physician Procedure note for Specifics] Pain Scale: 0-10 Numeric [Pain] -Is Patient Pain Free? Yes Musculoskeletal: No Tenderness to Palpation of Joints or Extremities Lymphatic: No Cervical, Supraclavicular, or Inguinal Adenopathy Neurological: Cranial nerves II-XII grossly intact, Neuro grossly intact Psych/Mental Status: Normal Affect, Appropriate Debridement Note Post-Debridement Measurements/Treatment WC - Nurse 2 - General Ulcer CM Notes Start: 04/27/18 09:50 Freq: Status: Active Protocol: Activity Type Activity Date Activity User E-Sign Co-Sign Detail Recorded Client Recorded Date Recorded By Document 04/27/18 10:52 [id number] 04/27/18 10:55 Document 05/04/18 10:16 [id number] 05/04/18 10:17 04/27/18 05/04/18 10:52 10:16 Wound Center Nurse 2 #6 RIGHT ISCHIUM -Time 10:53 10:17 -Correct Patient Yes Yes -Correct Side, Site, Position Yes Yes -Correct Procedure Yes Yes -Procedure Performed Yes Yes -Type of Procedure Debridement Debridement -Clinical Debridement Muscle Muscle -Post Debridement Size (cm) - Length 3.0 2.4 -Post Debridement Size (cm) - Width 5.0 5.0 -Post Debridement Size (cm) - Depth 0.4 0.4 -Total Square Cm 15.00 12.00 -Wound/Ulcer Outcome Not Healed Not Healed -Ulcer Cleansing Rinsed/ Rinsed/ Irrigated with Irrigated with Saline Saline -Foul Odor after Cleansing No No -Bioengineered Tissue No No -Bleeding Controlled with NA NA -Treatment Response Procedure Procedure Tolerated Well Tolerated Well Pain Scale: 0-10 Numeric Is Patient Pain Free? Yes Yes Wound debrided: Ischium Wound Grade/Stage: Stage III Type of Debridement: Excisional debridement Anesthesia Used: 5% Lidocaine Gel Depth: Down to and including healthy tissue, in the subcutaneous layer, to muscle Percentage of wound debrided: 100 Instrument Used: 7mm curette Tissue Removed: Fibrin Severity: Limited To Skin Breakdown Amount of bleeding with debridement: Mild Bleeding Controlled with: Compression and gauze Patient tolerated procedure well Assessment/Plan Active Problems Decubitus ulcer of right ischium, stage 3 (Acute) History of osteomyelitis (Chronic) right sacral area Spina bifida (Chronic) Malnutrition compromising bodily function (Chronic) Assessment: Decubitus ulcer stage III right ischium. Spina bifida. Paraplegia. Hydrocephalus. History of osteomyelitis. Infected ulcer Plan: Aquacel silver to the undermined area and tosha on the ulcer with fluffed gauze cover with absorbent sachet. follow up in 1 week
--- NOTE | 2018-05-04 10:40 | PN.PCM_ITS ---
(1) Decubitus ulcer of right ischium, stage 3 Status: Acute Current Visit: Yes Code(s): L89.313 - Pressure ulcer of right buttock, stage 3 (2) Infected wound Status: Acute Current Visit: No Code(s): T14.8 - Other injury of unspecified body region; L08.9 - Local infection of the skin and subcutaneous tissue, unspecified (3) History of osteomyelitis Status: Chronic Current Visit: Yes Code(s): Z87.39 - Personal history of other diseases of the musculoskeletal system and connective tissue Comment: right sacral area (4) Malnutrition compromising bodily function Status: Chronic Current Visit: Yes Code(s): E46 - Unspecified protein- calorie malnutrition (5) Spina bifida Status: Chronic Current Visit: Yes Code(s): Q05.9 - Spina bifida, unspecified Type of Wound Date of Service: 05/04/18 Chief Complaint: Right ischium ulcer History of Wound: 21-year-old with past medical history of spina bifida paraplegia hydrocephalus osteomyelitis had been doing rather well until developed kidney stones and was taken to the hospital approximately 2 weeks ago spent in overnighter and developed a decubitus ulcer in the right issue him after receiving Lipsotripsy for his kidneys. Stage 3 ulcer with some slough no odor cultures will be taken. Patient will be started on Tosha moistened Adaptic abdominal dressings tape. Progress of Wound: The ulcer is smaller in size but has developed at 1:00 undermining. Still having some maceration around the edge of the ulcer but not as in the past . Using Tosha and Aquacel silver in the undermining area packed well. Fluff gauze and then sorban sachet . - Physical Exam Vital Signs Temp Pulse Resp BP 96.7 F L 87 16 98/70 05/04/18 09:55 05/04/18 09:55 05/04/18 09:55 05/04/18 09:55 General: Oriented x3, Cooperative, Well developed HEENT: Atraumatic, PERRLA Oral: Moist Mucosa Neck: Supple, No JVD Lungs: Clear to auscultation, Normal air movement Cardiovascular: Regular rate, Regular Rhythm Abdomen: Bowel Sounds Present, Soft, Non Tender, No Hepato-splenomegaly Extremities: No clubbing, No edema Skin: Ulcer/ Wound - Left ischial ulcer with undermining Wound Measurements and Assessment WC - Nurse 1 - General Ulcer Measurement Start: 04/27/18 09:50 Freq: Status: Active Protocol: Activity Type Activity Date Activity User E-Sign Co-Sign Detail Recorded Client Recorded Date Recorded By Document 05/04/18 09:55 DL [id number] 05/04/18 09:57 DL 05/04/18 09:55 Wound Center Nurse 1 [Ulcer Assessment] #6 RIGHT ISCHIUM -Current Size (cm) - Length 3 -Current Size (cm) - Width 5.6 -Current Size (cm) - Depth 0.6 -Total Square Cm 16.8 -Photo Taken No -Exudate Amt Medium (34-66%) -Exudate Type Serosanguineous -Wound Margin Thickened -Granulation Amt Medium (34-66%) -Granulation Quality [place] Red -Necrosis Amt Medium (34-66%) -Necrotic Tissue Type Adherent Slough -Structure Exposed N/A -Texture (Ida-wound Skin Appearance) Scarring -Moisture (Ida-wound Skin Appearance Maceration ) -Color (Ida-wound Skin Appearance) Rubor -Temperature (Ida-wound Skin No Abnormality Appearance) (Pt Warm) -Ulcer Cleansing Wound Cleanser -Foul Odor after Cleansing No -Anesthetic Used 4% Lidocaine Solution WC - Nurse 2 - General Ulcer CM Notes Start: 04/27/18 09:50 Freq: Status: Active Protocol: Activity Type Activity Date Activity User E-Sign Co-Sign Detail Recorded Client Recorded Date Recorded By Document 05/04/18 10:16 [email or web address] [id number] 05/04/18 10:17 MIKKI 05/04/18 10:16 Wound Center Nurse 2 [Procedure/Treatment] -Time 10:17 -Correct Patient Yes -Correct Side, Site, Position Yes -Correct Procedure Yes -Procedure Performed Yes -Type of Procedure Debridement -Clinical Debridement Muscle -Post Debridement Size (cm) - Length 2.4 -Post Debridement Size (cm) - Width 5.0 -Post Debridement Size (cm) - Depth 0.4 -Total Square Cm 12.00 -Wound/Ulcer Outcome Not Healed -Ulcer Cleansing Rinsed/ Irrigated with Saline -Foul Odor after Cleansing No -Bioengineered Tissue No -Bleeding Controlled with NA -Treatment Response Procedure Tolerated Well [See Physician Procedure note for Specifics] Pain Scale: 0-10 Numeric [Pain] -Is Patient Pain Free? Yes Musculoskeletal: No Tenderness to Palpation of Joints or Extremities Lymphatic: No Cervical, Supraclavicular, or Inguinal Adenopathy Neurological: Cranial nerves II-XII grossly intact, Neuro grossly intact Psych/Mental Status: Normal Affect, Appropriate Debridement Note Post-Debridement Measurements/Treatment WC - Nurse 2 - General Ulcer CM Notes Start: 04/27/18 09:50 Freq: Status: Active Protocol: Activity Type Activity Date Activity User E-Sign Co-Sign Detail Recorded Client Recorded Date Recorded By Document 04/27/18 10:52 [id number] 04/27/18 10:55 Document 05/04/18 10:16 [id number] 05/04/18 10:17 04/27/18 05/04/18 10:52 10:16 Wound Center Nurse 2 #6 RIGHT ISCHIUM -Time 10:53 10:17 -Correct Patient Yes Yes -Correct Side, Site, Position Yes Yes -Correct Procedure Yes Yes -Procedure Performed Yes Yes -Type of Procedure Debridement Debridement -Clinical Debridement Muscle Muscle -Post Debridement Size (cm) - Length 3.0 2.4 -Post Debridement Size (cm) - Width 5.0 5.0 -Post Debridement Size (cm) - Depth 0.4 0.4 -Total Square Cm 15.00 12.00 -Wound/Ulcer Outcome Not Healed Not Healed -Ulcer Cleansing Rinsed/ Rinsed/ Irrigated with Irrigated with Saline Saline -Foul Odor after Cleansing No No -Bioengineered Tissue No No -Bleeding Controlled with NA NA -Treatment Response Procedure Procedure Tolerated Well Tolerated Well Pain Scale: 0-10 Numeric Is Patient Pain Free? Yes Yes Wound debrided: Ischium Wound Grade/Stage: Stage III Type of Debridement: Excisional debridement Anesthesia Used: 5% Lidocaine Gel Depth: Down to and including healthy tissue, in the subcutaneous layer, to muscle Percentage of wound debrided: 100 Instrument Used: 7mm curette Tissue Removed: Fibrin Severity: Limited To Skin Breakdown Amount of bleeding with debridement: Mild Bleeding Controlled with: Compression and gauze Patient tolerated procedure well Assessment/Plan Active Problems Decubitus ulcer of right ischium, stage 3 (Acute) History of osteomyelitis (Chronic) right sacral area Spina bifida (Chronic) Malnutrition compromising bodily function (Chronic) Assessment: Decubitus ulcer stage III right ischium. Spina bifida. Paraplegia. Hydrocephalus. History of osteomyelitis. Infected ulcer Plan: Aquacel silver to the undermined area and tosha on the ulcer with fluffed gauze cover with absorbent sachet. follow up in 1 week
[2018-05-11 10:23] VITALS: BP 100/63; PULSE 86; RESP 18; TEMP 36.7
--- NOTE | 2018-05-11 11:42 | PCM.WC.PN ---
(1) Decubitus ulcer of right ischium, stage 3 Status: Acute Current Visit: Yes Code(s): L89.313 - Pressure ulcer of right buttock, stage 3 (2) Infected wound Status: Acute Current Visit: Yes Code(s): T14.8 - Other injury of unspecified body region; L08.9 - Local infection of the skin and subcutaneous tissue, unspecified (3) History of osteomyelitis Status: Chronic Current Visit: Yes Code(s): Z87.39 - Personal history of other diseases of the musculoskeletal system and connective tissue Comment: right sacral area (4) Malnutrition compromising bodily function Status: Chronic Current Visit: Yes Code(s): E46 - Unspecified protein-calorie malnutrition (5) Spina bifida Status: Chronic Current Visit: Yes Code(s): Q05.9 - Spina bifida, unspecified Type of Wound Date of Service: 05/11/18 Chief Complaint: Right ischium ulcer History of Wound: 21-year-old with past medical history of spina bifida paraplegia hydrocephalus osteomyelitis had been doing rather well until developed kidney stones and was taken to the hospital approximately 2 weeks ago spent in overnighter and developed a decubitus ulcer in the right issue him after receiving Lipsotripsy for his kidneys. Stage 3 ulcer with some slough no odor cultures will be taken. Patient will be started on Tosha moistened Adaptic abdominal dressings tape. Progress of Wound: Still at 12 1:00 is undermining. Maceration around the edge of the ulcer is slight much better. Family has been increasing dressing changes to twice a day for the maceration. Ulcer is still covered and enough light coating of yellow will try Santyl for a 2 week to clean him up. Patient will be leaving for camp and will not be seen for 2 weeks. - Physical Exam Vital Signs Temp Pulse Resp BP 98.0 F 86 18 100/63 05/11/18 10:23 05/11/18 10:23 05/11/18 10:23 05/11/18 10:23 General: Oriented x3, Cooperative, Well developed HEENT: Atraumatic, PERRLA Oral: Moist Mucosa Neck: Supple, No JVD Lungs: Clear to auscultation, Normal air movement Cardiovascular: Regular rate, Regular Rhythm Abdomen: Bowel Sounds Present, Soft, Non Tender, No Hepato-splenomegaly Extremities: No clubbing, No edema Skin: Ulcer/ Wound - Eft ischial ulcer stage III Wound Measurements and Assessment WC - Nurse 1 - General Ulcer Measurement Start: 04/27/18 09:50 Freq: Status: Active Protocol: Activity Type Activity Date Activity User E-Sign Co-Sign Detail Recorded Client Recorded Date Recorded By Document 05/11/18 10:23 TM [id number] 05/11/18 10:24 TM 05/11/18 10:23 Wound Center Nurse 1 [Ulcer Assessment] #6 RIGHT ISCHIUM -Combined with other wound No -Current Size (cm) - Length 6.0 -Current Size (cm) - Width 2.2 -Current Size (cm) - Depth 1.5 -Total Square Cm 13.20 -Photo Taken No -Epithelialization Small 1-33% -Tunneling No -Undermining/Tunneling No -Circular Undermining No -Classification - Thickness Full Thickness without Exposed Support Structure -Exudate Amt Large (67-100%) -Exudate Type Serosanguineous -Wound Margin Distinct, Outline Attached -Granulation Amt Large (67-100%) -Granulation Quality [place] -Slough/Fibrin Yes -Necrosis Amt Small (1-33%) -Necrotic Tissue Type Adherent Slough -Structure Exposed Fascia Fat Layer Exposed -Texture (Ida-wound Skin Appearance) Scarring -Moisture (Ida-wound Skin Appearance No Abnormality ) -Color (Ida-wound Skin Appearance) No Abnormality Assessed -Temperature (Ida-wound Skin No Abnormality Appearance) (Pt Warm) -Tenderness on Palpation (Ida-wound No Skin Appearance) -Ulcer Cleansing Rinsed/ Irrigated with Saline -Foul Odor after Cleansing No -Anesthetic Used 5% Lidocaine Gel [Edema Assessment] -Lower Limb Edema Present No - Nurse 2 - General Ulcer CM Notes Start: 04/27/18 09:50 Freq: Status: Active Protocol: Activity Type Activity Date Activity User E-Sign Co-Sign Detail Recorded Client Recorded Date Recorded By Document 05/11/18 10:46 [email or web address] [id number] 05/11/18 10:47 05/11/18 10:46 Wound Center Nurse 2 [Procedure/Treatment] #6 RIGHT ISCHIUM -Time 10:46 -Correct Patient Yes -Correct Side, Site, Position Yes -Correct Procedure Yes -Procedure Performed Yes -Type of Procedure Debridement -Clinical Debridement Subcutaneous -Post Debridement Size (cm) - Length 2.5 -Post Debridement Size (cm) - Width 5.3 -Post Debridement Size (cm) - Depth 0.5 -Total Square Cm 13.25 -Wound/Ulcer Outcome Not Healed -Ulcer Cleansing Rinsed/ Irrigated with Saline -Foul Odor after Cleansing No -Bioengineered Tissue No -Bleeding Controlled with NA -Treatment Response Procedure Tolerated Well [See Physician Procedure note for Specifics] Musculoskeletal: No Tenderness to Palpation of Joints or Extremities Lymphatic: No Cervical, Supraclavicular, or Inguinal Adenopathy Neurological: Cranial nerves II-XII grossly intact, Neuro grossly intact Psych/Mental Status: Normal Affect, Appropriate Debridement Note Post-Debridement Measurements/Treatment WC - Nurse 2 - General Ulcer CM Notes Start: 04/27/18 09:50 Freq: Status: Active Protocol: Activity Type Activity Date Activity User E-Sign Co-Sign Detail Recorded Client Recorded Date Recorded By Document 04/27/18 10:52 [id number] 04/27/18 10:55 JS Document 05/04/18 10:16 [id number] 05/04/18 10:17 JS Document 05/11/18 10:46 [id number] 05/11/18 10:47 JS 04/27/18 05/04/18 05/11/18 10:52 10:16 10:46 Wound Center Nurse 2 #6 RIGHT ISCHIUM -Time 10:53 10:17 10:46 -Correct Patient Yes Yes Yes -Correct Side, Site, Position Yes Yes Yes -Correct Procedure Yes Yes Yes -Procedure Performed Yes Yes Yes -Type of Procedure Debridement Debridement Debridement -Clinical Debridement Muscle Muscle Subcutaneous -Post Debridement Size (cm) - Length 3.0 2.4 2.5 -Post Debridement Size (cm) - Width 5.0 5.0 5.3 -Post Debridement Size (cm) - Depth 0.4 0.4 0.5 -Total Square Cm 15.00 12.00 13.25 -Wound/Ulcer Outcome Not Healed Not Healed Not Healed -Ulcer Cleansing Rinsed/ Rinsed/ Rinsed/ Irrigated with Irrigated with Irrigated with Saline Saline Saline -Foul Odor after Cleansing No No No -Bioengineered Tissue No No No -Bleeding Controlled with NA NA NA -Treatment Response Procedure Procedure Procedure Tolerated Well Tolerated Well Tolerated Well Pain Scale: 0-10 Numeric Is Patient Pain Free? Yes Yes Wound debrided: Left ischium ulcer Type of Debridement: Excisional debridement Anesthesia Used: 5% Lidocaine Gel Depth: Down to and including healthy tissue, in the subcutaneous layer, to bone Percentage of wound debrided: 100 Instrument Used: 5mm curette Tissue Removed: Slough Severity: Limited To Skin Breakdown Amount of bleeding with debridement: Mild Bleeding Controlled with: Compression and gauze Patient tolerated procedure well Assessment/Plan Active Problems Infected wound (Acute) Decubitus ulcer of right ischium, stage 3 (Acute) History of osteomyelitis (Chronic) right sacral area Spina bifida (Chronic) Malnutrition compromising bodily function (Chronic) Assessment: Decubitus ulcer stage III right ischium. Spina bifida. Paraplegia. Hydrocephalus. History of osteomyelitis. Infected ulcer Plan: Aquacel silver to the undermined area and Santyl nickel thickness on the ulcer with fluffed gauze cover with absorbent sachet twice daily dressing changes. follow up in 2 week. We will call with culture results
--- NOTE | 2018-05-11 11:46 | PN.PCM_ITS ---
(1) Decubitus ulcer of right ischium, stage 3 Status: Acute Current Visit: Yes Code(s): L89.313 - Pressure ulcer of right buttock, stage 3 (2) Infected wound Status: Acute Current Visit: Yes Code(s): T14.8 - Other injury of unspecified body region; L08.9 - Local infection of the skin and subcutaneous tissue, unspecified (3) History of osteomyelitis Status: Chronic Current Visit: Yes Code(s): Z87.39 - Personal history of other diseases of the musculoskeletal system and connective tissue Comment: right sacral area (4) Malnutrition compromising bodily function Status: Chronic Current Visit: Yes Code(s): E46 - Unspecified protein- calorie malnutrition (5) Spina bifida Status: Chronic Current Visit: Yes Code(s): Q05.9 - Spina bifida, unspecified Type of Wound Date of Service: 05/11/18 Chief Complaint: Right ischium ulcer History of Wound: 21-year-old with past medical history of spina bifida paraplegia hydrocephalus osteomyelitis had been doing rather well until developed kidney stones and was taken to the hospital approximately 2 weeks ago spent in overnighter and developed a decubitus ulcer in the right issue him after receiving Lipsotripsy for his kidneys. Stage 3 ulcer with some slough no odor cultures will be taken. Patient will be started on Tosha moistened Adaptic abdominal dressings tape. Progress of Wound: Still at 12 1:00 is undermining. Maceration around the edge of the ulcer is slight much better. Family has been increasing dressing changes to twice a day for the maceration. Ulcer is still covered and enough light coating of yellow will try Santyl for a 2 week to clean him up. Patient will be leaving for camp and will not be seen for 2 weeks. - Physical Exam Vital Signs Temp Pulse Resp BP 98.0 F 86 18 100/63 05/11/18 10:23 05/11/18 10:23 05/11/18 10:23 05/11/18 10:23 General: Oriented x3, Cooperative, Well developed HEENT: Atraumatic, PERRLA Oral: Moist Mucosa Neck: Supple, No JVD Lungs: Clear to auscultation, Normal air movement Cardiovascular: Regular rate, Regular Rhythm Abdomen: Bowel Sounds Present, Soft, Non Tender, No Hepato-splenomegaly Extremities: No clubbing, No edema Skin: Ulcer/ Wound - Eft ischial ulcer stage III Wound Measurements and Assessment WC - Nurse 1 - General Ulcer Measurement Start: 04/27/18 09:50 Freq: Status: Active Protocol: Activity Type Activity Date Activity User E-Sign Co-Sign Detail Recorded Client Recorded Date Recorded By Document 05/11/18 10:23 TM [id number] 05/11/18 10:24 TM 05/11/18 10:23 Wound Center Nurse 1 [Ulcer Assessment] #6 RIGHT ISCHIUM -Combined with other wound No -Current Size (cm) - Length 6.0 -Current Size (cm) - Width 2.2 -Current Size (cm) - Depth 1.5 -Total Square Cm 13.20 -Photo Taken No -Epithelialization Small 1-33% -Tunneling No -Undermining/Tunneling No -Circular Undermining No -Classification - Thickness Full Thickness without Exposed Support Structure -Exudate Amt Large (67-100%) -Exudate Type Serosanguineous -Wound Margin Distinct, Outline Attached -Granulation Amt Large (67-100%) -Granulation Quality [place] -Slough/Fibrin Yes -Necrosis Amt Small (1-33%) -Necrotic Tissue Type Adherent Slough -Structure Exposed Fascia Fat Layer Exposed -Texture (Ida-wound Skin Appearance) Scarring -Moisture (Ida-wound Skin Appearance No Abnormality ) -Color (Ida-wound Skin Appearance) No Abnormality Assessed -Temperature (Ida-wound Skin No Abnormality Appearance) (Pt Warm) -Tenderness on Palpation (Ida-wound No Skin Appearance) -Ulcer Cleansing Rinsed/ Irrigated with Saline -Foul Odor after Cleansing No -Anesthetic Used 5% Lidocaine Gel [Edema Assessment] -Lower Limb Edema Present No - Nurse 2 - General Ulcer CM Notes Start: 04/27/18 09:50 Freq: Status: Active Protocol: Activity Type Activity Date Activity User E-Sign Co-Sign Detail Recorded Client Recorded Date Recorded By Document 05/11/18 10:46 MIKKI [id number] 05/11/18 10:47 05/11/18 10:46 Wound Center Nurse 2 [Procedure/Treatment] #6 RIGHT ISCHIUM -Time 10:46 -Correct Patient Yes -Correct Side, Site, Position Yes -Correct Procedure Yes -Procedure Performed Yes -Type of Procedure Debridement -Clinical Debridement Subcutaneous -Post Debridement Size (cm) - Length 2.5 -Post Debridement Size (cm) - Width 5.3 -Post Debridement Size (cm) - Depth 0.5 -Total Square Cm 13.25 -Wound/Ulcer Outcome Not Healed -Ulcer Cleansing Rinsed/ Irrigated with Saline -Foul Odor after Cleansing No -Bioengineered Tissue No -Bleeding Controlled with NA -Treatment Response Procedure Tolerated Well [See Physician Procedure note for Specifics] Musculoskeletal: No Tenderness to Palpation of Joints or Extremities Lymphatic: No Cervical, Supraclavicular, or Inguinal Adenopathy Neurological: Cranial nerves II-XII grossly intact, Neuro grossly intact Psych/Mental Status: Normal Affect, Appropriate Debridement Note Post-Debridement Measurements/Treatment WC - Nurse 2 - General Ulcer CM Notes Start: 04/27/18 09:50 Freq: Status: Active Protocol: Activity Type Activity Date Activity User E-Sign Co-Sign Detail Recorded Client Recorded Date Recorded By Document 04/27/18 10:52 [id number] 04/27/18 10:55 JS Document 05/04/18 10:16 [id number] 05/04/18 10:17 JS Document 05/11/18 10:46 [id number] 05/11/18 10:47 JS 04/27/18 05/04/18 05/11/18 10:52 10:16 10:46 Wound Center Nurse 2 #6 RIGHT ISCHIUM -Time 10:53 10:17 10:46 -Correct Patient Yes Yes Yes -Correct Side, Site, Position Yes Yes Yes -Correct Procedure Yes Yes Yes -Procedure Performed Yes Yes Yes -Type of Procedure Debridement Debridement Debridement -Clinical Debridement Muscle Muscle Subcutaneous -Post Debridement Size (cm) - Length 3.0 2.4 2.5 -Post Debridement Size (cm) - Width 5.0 5.0 5.3 -Post Debridement Size (cm) - Depth 0.4 0.4 0.5 -Total Square Cm 15.00 12.00 13.25 -Wound/Ulcer Outcome Not Healed Not Healed Not Healed -Ulcer Cleansing Rinsed/ Rinsed/ Rinsed/ Irrigated with Irrigated with Irrigated with Saline Saline Saline -Foul Odor after Cleansing No No No -Bioengineered Tissue No No No -Bleeding Controlled with NA NA NA -Treatment Response Procedure Procedure Procedure Tolerated Well Tolerated Well Tolerated Well Pain Scale: 0-10 Numeric Is Patient Pain Free? Yes Yes Wound debrided: Left ischium ulcer Type of Debridement: Excisional debridement Anesthesia Used: 5% Lidocaine Gel Depth: Down to and including healthy tissue, in the subcutaneous layer, to bone Percentage of wound debrided: 100 Instrument Used: 5mm curette Tissue Removed: Slough Severity: Limited To Skin Breakdown Amount of bleeding with debridement: Mild Bleeding Controlled with: Compression and gauze Patient tolerated procedure well Assessment/Plan Active Problems Infected wound (Acute) Decubitus ulcer of right ischium, stage 3 (Acute) History of osteomyelitis (Chronic) right sacral area Spina bifida (Chronic) Malnutrition compromising bodily function (Chronic) Assessment: Decubitus ulcer stage III right ischium. Spina bifida. Paraplegia. Hydrocephalus. History of osteomyelitis. Infected ulcer Plan: Aquacel silver to the undermined area and Santyl nickel thickness on the ulcer with fluffed gauze cover with absorbent sachet twice daily dressing changes. follow up in 2 week. We will call with culture results
== END 2018-05-22 23:59 ==
LOC: WC 09:30
PROVIDERS: Family Provider Family Medicine; PCP Family Medicine; Visit Provider Nurse Practitioner
DX: L89.213 Pressure ulcer of right hip, stage 3 (principal); Q05.9 Spina bifida, unspecified; G82.20 Paraplegia, unspecified
CPT/HCPCS: 11042; 11043

== ENCOUNTER 2018-06-21 08:00 | Outpatient (RCR) | payer OTHER, MEDICAID, SELFPAY ==
[2018-05-23 00:59] VITALS: BP 100/63; PULSE 86; RESP 18; TEMP 36.7
[2018-05-25 10:06] VITALS: BP 107/71; PULSE 81; RESP 14; TEMP 36.3
--- NOTE | 2018-05-25 11:14 | PCM.WC.PN ---
(1) Decubitus ulcer of right ischium, stage 3 Status: Acute Current Visit: Yes Code(s): L89.313 - Pressure ulcer of right buttock, stage 3 (2) History of osteomyelitis Status: Chronic Current Visit: Yes Code(s): Z87.39 - Personal history of other diseases of the musculoskeletal system and connective tissue Comment: right sacral area (3) Malnutrition compromising bodily function Status: Chronic Current Visit: Yes Code(s): E46 - Unspecified protein-calorie malnutrition (4) Spina bifida Status: Chronic Current Visit: Yes Code(s): Q05.9 - Spina bifida, unspecified Type of Wound Date of Service: 05/25/18 Chief Complaint: Right ischium ulcer History of Wound: 21-year-old with past medical history of spina bifida paraplegia hydrocephalus osteomyelitis had been doing rather well until developed kidney stones and was taken to the hospital approximately 2 weeks ago spent in overnighter and developed a decubitus ulcer in the right issue him after receiving Lipsotripsy for his kidneys. Stage 3 ulcer with some slough no odor cultures will be taken. Patient will be started on Tosha moistened Adaptic abdominal dressings tape. Progress of Wound: Still at 12 1:00 is undermining is smaller. Maceration around the edge of the ulcer is slight much better. Family has been increasing dressing changes to twice a day for the maceration. Ulcer is still covered and enough light coating of yellow using Santyl for a 2 week to clean him up which is working very well, will continue. - Physical Exam Vital Signs Temp Pulse Resp BP 97.3 F L 81 14 107/71 05/25/18 10:06 05/25/18 10:06 05/25/18 10:06 05/25/18 10:06 General: Oriented x3, Cooperative, Well developed HEENT: Atraumatic, PERRLA Oral: Moist Mucosa Neck: Supple, No JVD Lungs: Clear to auscultation, Normal air movement Cardiovascular: Regular rate, Regular Rhythm Abdomen: Bowel Sounds Present, Soft, Non Tender, No Hepato-splenomegaly Extremities: No clubbing, No edema Skin: Ulcer/ Wound - Right ischial ulcer with undermining Wound Measurements and Assessment WC - Nurse 1 - General Ulcer Measurement Start: 05/25/18 10:06 Freq: Status: Active Protocol: Activity Type Activity Date Activity User E-Sign Co-Sign Detail Recorded Client Recorded Date Recorded By Document 05/25/18 10:06 CS [id number] 05/25/18 10:08 CS 05/25/18 10:06 Wound Center Nurse 1 [Ulcer Assessment] #6 RIGHT ISCHIUM -Combined with other wound No -Current Size (cm) - Length 3.1 -Current Size (cm) - Width 4.9 -Current Size (cm) - Depth 0.8 -Total Square Cm 15.19 -Photo Taken No -Epithelialization Small 1-33% -Tunneling No -Undermining/Tunneling No -Circular Undermining No -Exudate Amt Medium (34-66%) -Exudate Type Serosanguineous -Wound Margin Distinct, Outline Attached -Granulation Amt Medium (34-66%) -Granulation Quality [place] -Slough/Fibrin Yes -Necrosis Amt None Present (0 %) -Necrotic Tissue Type Adherent Slough -Structure Exposed None/Limited to Skin Breakdown -Texture (Ida-wound Skin Appearance) Assessed Callus -Moisture (Ida-wound Skin Appearance Assessed ) Maceration -Color (Ida-wound Skin Appearance) No Abnormality Assessed -Temperature (Ida-wound Skin No Abnormality Appearance) (Pt Warm) -Tenderness on Palpation (Ida-wound No Skin Appearance) -Ulcer Cleansing Rinsed/ Irrigated with Saline -Foul Odor after Cleansing No -Anesthetic Used 4% Lidocaine Solution [Edema Assessment] -Lower Limb Edema Present NA WC - Nurse 2 - General Ulcer CM Notes Start: 05/25/18 10:06 Freq: Status: Active Protocol: Activity Type Activity Date Activity User E-Sign Co-Sign Detail Recorded Client Recorded Date Recorded By Document 05/25/18 10:37 MW [id number] 05/25/18 10:39 MW 05/25/18 10:37 Wound Center Nurse 2 [Procedure/Treatment] #6 RIGHT ISCHIUM -Time 10:37 -Correct Patient Yes -Correct Side, Site, Position Yes -Correct Procedure Yes -Procedure Performed Yes -Type of Procedure Debridement -Clinical Debridement Subcutaneous -Post Debridement Size (cm) - Length 2.5 -Post Debridement Size (cm) - Width 5.5 -Post Debridement Size (cm) - Depth 0.2 -Total Square Cm 13.75 -Wound/Ulcer Outcome Not Healed -Ulcer Cleansing Rinsed/ Irrigated with Saline -Foul Odor after Cleansing No -Bioengineered Tissue No -Bleeding Controlled with Pressure -Treatment Response Procedure Tolerated Well [See Physician Procedure note for Specifics] Pain Scale: 0-10 Numeric [Pain] -Is Patient Pain Free? Yes Musculoskeletal: No Tenderness to Palpation of Joints or Extremities Lymphatic: No Cervical, Supraclavicular, or Inguinal Adenopathy Neurological: Cranial nerves II-XII grossly intact, Neuro grossly intact Psych/Mental Status: Normal Affect, Appropriate Debridement Note Post-Debridement Measurements/Treatment WC - Nurse 2 - General Ulcer CM Notes Start: 05/25/18 10:06 Freq: Status: Active Protocol: Activity Type Activity Date Activity User E-Sign Co-Sign Detail Recorded Client Recorded Date Recorded By Document 05/25/18 10:37 MW [id number] 05/25/18 10:39 MW 05/25/18 10:37 Wound Center Nurse 2 #6 RIGHT ISCHIUM -Time 10:37 -Correct Patient Yes -Correct Side, Site, Position Yes -Correct Procedure Yes -Procedure Performed Yes -Type of Procedure Debridement -Clinical Debridement Subcutaneous -Post Debridement Size (cm) - Length 2.5 -Post Debridement Size (cm) - Width 5.5 -Post Debridement Size (cm) - Depth 0.2 -Total Square Cm 13.75 -Wound/Ulcer Outcome Not Healed -Ulcer Cleansing Rinsed/ Irrigated with Saline -Foul Odor after Cleansing No -Bioengineered Tissue No -Bleeding Controlled with Pressure -Treatment Response Procedure Tolerated Well Pain Scale: 0-10 Numeric Is Patient Pain Free? Yes Wound debrided: Right ischium Type of Debridement: Excisional debridement Anesthesia Used: 5% Lidocaine Gel Depth: Down to and including healthy tissue, in the subcutaneous layer Percentage of wound debrided: 100 Instrument Used: 7mm curette Tissue Removed: Fibrin Severity: Limited To Skin Breakdown Amount of bleeding with debridement: Mild Bleeding Controlled with: Compression and gauze Patient tolerated procedure well Assessment/Plan Active Problems Decubitus ulcer of right ischium, stage 3 (Acute) History of osteomyelitis (Chronic) right sacral area Spina bifida (Chronic) Malnutrition compromising bodily function (Chronic) Assessment: Decubitus ulcer stage III right ischium. Spina bifida. Paraplegia. Hydrocephalus. History of osteomyelitis. Infected ulcer Plan: Aquacel silver to the undermined area and Santyl nickel thickness on the ulcer with fluffed gauze cover with absorbent sachet twice daily dressing changes. follow up in 1 week
--- NOTE | 2018-05-25 11:18 | PN.PCM_ITS ---
(1) Decubitus ulcer of right ischium, stage 3 Status: Acute Current Visit: Yes Code(s): L89.313 - Pressure ulcer of right buttock, stage 3 (2) History of osteomyelitis Status: Chronic Current Visit: Yes Code(s): Z87.39 - Personal history of other diseases of the musculoskeletal system and connective tissue Comment: right sacral area (3) Malnutrition compromising bodily function Status: Chronic Current Visit: Yes Code(s): E46 - Unspecified protein- calorie malnutrition (4) Spina bifida Status: Chronic Current Visit: Yes Code(s): Q05.9 - Spina bifida, unspecified Type of Wound Date of Service: 05/25/18 Chief Complaint: Right ischium ulcer History of Wound: 21-year-old with past medical history of spina bifida paraplegia hydrocephalus osteomyelitis had been doing rather well until developed kidney stones and was taken to the hospital approximately 2 weeks ago spent in overnighter and developed a decubitus ulcer in the right issue him after receiving Lipsotripsy for his kidneys. Stage 3 ulcer with some slough no odor cultures will be taken. Patient will be started on Tosha moistened Adaptic abdominal dressings tape. Progress of Wound: Still at 12 1:00 is undermining is smaller. Maceration around the edge of the ulcer is slight much better. Family has been increasing dressing changes to twice a day for the maceration. Ulcer is still covered and enough light coating of yellow using Santyl for a 2 week to clean him up which is working very well, will continue. - Physical Exam Vital Signs Temp Pulse Resp BP 97.3 F L 81 14 107/71 05/25/18 10:06 05/25/18 10:06 05/25/18 10:06 05/25/18 10:06 General: Oriented x3, Cooperative, Well developed HEENT: Atraumatic, PERRLA Oral: Moist Mucosa Neck: Supple, No JVD Lungs: Clear to auscultation, Normal air movement Cardiovascular: Regular rate, Regular Rhythm Abdomen: Bowel Sounds Present, Soft, Non Tender, No Hepato-splenomegaly Extremities: No clubbing, No edema Skin: Ulcer/ Wound - Right ischial ulcer with undermining Wound Measurements and Assessment WC - Nurse 1 - General Ulcer Measurement Start: 05/25/18 10:06 Freq: Status: Active Protocol: Activity Type Activity Date Activity User E-Sign Co-Sign Detail Recorded Client Recorded Date Recorded By Document 05/25/18 10:06 CS [id number] 05/25/18 10:08 CS 05/25/18 10:06 Wound Center Nurse 1 [Ulcer Assessment] #6 RIGHT ISCHIUM -Combined with other wound No -Current Size (cm) - Length 3.1 -Current Size (cm) - Width 4.9 -Current Size (cm) - Depth 0.8 -Total Square Cm 15.19 -Photo Taken No -Epithelialization Small 1-33% -Tunneling No -Undermining/Tunneling No -Circular Undermining No -Exudate Amt Medium (34-66%) -Exudate Type Serosanguineous -Wound Margin Distinct, Outline Attached -Granulation Amt Medium (34-66%) -Granulation Quality Pale [place] -Slough/Fibrin Yes -Necrosis Amt None Present (0 %) -Necrotic Tissue Type Adherent Slough -Structure Exposed None/Limited to Skin Breakdown -Texture (Ida-wound Skin Appearance) Assessed Callus -Moisture (Ida-wound Skin Appearance Assessed ) Maceration -Color (Ida-wound Skin Appearance) No Abnormality Assessed -Temperature (Ida-wound Skin No Abnormality Appearance) (Pt Warm) -Tenderness on Palpation (Ida-wound No Skin Appearance) -Ulcer Cleansing Rinsed/ Irrigated with Saline -Foul Odor after Cleansing No -Anesthetic Used 4% Lidocaine Solution [Edema Assessment] -Lower Limb Edema Present NA WC - Nurse 2 - General Ulcer CM Notes Start: 05/25/18 10:06 Freq: Status: Active Protocol: Activity Type Activity Date Activity User E-Sign Co-Sign Detail Recorded Client Recorded Date Recorded By Document 05/25/18 10:37 MW [id number] 05/25/18 10:39 MW 05/25/18 10:37 Wound Center Nurse 2 [Procedure/Treatment] #6 RIGHT ISCHIUM -Time 10:37 -Correct Patient Yes -Correct Side, Site, Position Yes -Correct Procedure Yes -Procedure Performed Yes -Type of Procedure Debridement -Clinical Debridement Subcutaneous -Post Debridement Size (cm) - Length 2.5 -Post Debridement Size (cm) - Width 5.5 -Post Debridement Size (cm) - Depth 0.2 -Total Square Cm 13.75 -Wound/Ulcer Outcome Not Healed -Ulcer Cleansing Rinsed/ Irrigated with Saline -Foul Odor after Cleansing No -Bioengineered Tissue No -Bleeding Controlled with Pressure -Treatment Response Procedure Tolerated Well [See Physician Procedure note for Specifics] Pain Scale: 0-10 Numeric [Pain] -Is Patient Pain Free? Yes Musculoskeletal: No Tenderness to Palpation of Joints or Extremities Lymphatic: No Cervical, Supraclavicular, or Inguinal Adenopathy Neurological: Cranial nerves II-XII grossly intact, Neuro grossly intact Psych/Mental Status: Normal Affect, Appropriate Debridement Note Post-Debridement Measurements/Treatment WC - Nurse 2 - General Ulcer CM Notes Start: 05/25/18 10:06 Freq: Status: Active Protocol: Activity Type Activity Date Activity User E-Sign Co-Sign Detail Recorded Client Recorded Date Recorded By Document 05/25/18 10:37 MW [id number] 05/25/18 10:39 MW 05/25/18 10:37 Wound Center Nurse 2 #6 RIGHT ISCHIUM -Time 10:37 -Correct Patient Yes -Correct Side, Site, Position Yes -Correct Procedure Yes -Procedure Performed Yes -Type of Procedure Debridement -Clinical Debridement Subcutaneous -Post Debridement Size (cm) - Length 2.5 -Post Debridement Size (cm) - Width 5.5 -Post Debridement Size (cm) - Depth 0.2 -Total Square Cm 13.75 -Wound/Ulcer Outcome Not Healed -Ulcer Cleansing Rinsed/ Irrigated with Saline -Foul Odor after Cleansing No -Bioengineered Tissue No -Bleeding Controlled with Pressure -Treatment Response Procedure Tolerated Well Pain Scale: 0-10 Numeric Is Patient Pain Free? Yes Wound debrided: Right ischium Type of Debridement: Excisional debridement Anesthesia Used: 5% Lidocaine Gel Depth: Down to and including healthy tissue, in the subcutaneous layer Percentage of wound debrided: 100 Instrument Used: 7mm curette Tissue Removed: Fibrin Severity: Limited To Skin Breakdown Amount of bleeding with debridement: Mild Bleeding Controlled with: Compression and gauze Patient tolerated procedure well Assessment/Plan Active Problems Decubitus ulcer of right ischium, stage 3 (Acute) History of osteomyelitis (Chronic) right sacral area Spina bifida (Chronic) Malnutrition compromising bodily function (Chronic) Assessment: Decubitus ulcer stage III right ischium. Spina bifida. Paraplegia. Hydrocephalus. History of osteomyelitis. Infected ulcer Plan: Aquacel silver to the undermined area and Santyl nickel thickness on the ulcer with fluffed gauze cover with absorbent sachet twice daily dressing changes. follow up in 1 week
[2018-06-01 10:10] VITALS: BP 101/62; PULSE 88; RESP 16; TEMP 37
--- NOTE | 2018-06-01 11:26 | PN.PCM_ITS ---
(1) Decubitus ulcer of right ischium, stage 3 Status: Acute Current Visit: Yes Code(s): L89.313 - Pressure ulcer of right buttock, stage 3 (2) History of osteomyelitis Status: Chronic Current Visit: Yes Code(s): Z87.39 - Personal history of other diseases of the musculoskeletal system and connective tissue Comment: right sacral area (3) Malnutrition compromising bodily function Status: Chronic Current Visit: Yes Code(s): E46 - Unspecified protein- calorie malnutrition (4) Spina bifida Status: Chronic Current Visit: Yes Code(s): Q05.9 - Spina bifida, unspecified Type of Wound Date of Service: 06/01/18 Chief Complaint: Right ischium ulcer History of Wound: 21-year-old with past medical history of spina bifida paraplegia hydrocephalus osteomyelitis had been doing rather well until developed kidney stones and was taken to the hospital approximately 2 weeks ago spent in overnighter and developed a decubitus ulcer in the right issue him after receiving Lipsotripsy for his kidneys. Stage 3 ulcer with some slough no odor cultures will be taken. Patient will be started on Tosha moistened Adaptic abdominal dressings tape. Progress of Wound: Still at 12 1:00 is undermining is smaller. Maceration around the edge of the ulcer is slight much better. Family has been increasing dressing changes to twice a day for the maceration. Ulcer is still covered and enough light coating of yellow using Santyl for a 3week to clean him up which is working very well, will continue. The undermining area is getting smaller. - Physical Exam Vital Signs Temp Pulse Resp BP 98.6 F 88 16 101/62 06/01/18 10:10 06/01/18 10:10 06/01/18 10:10 06/01/18 10:10 General: Oriented x3, Cooperative, Well developed HEENT: Atraumatic, PERRLA Oral: Moist Mucosa Neck: Supple, No JVD Lungs: Clear to auscultation, Normal air movement Cardiovascular: Regular rate, Regular Rhythm Abdomen: Bowel Sounds Present, Soft, Non Tender, No Hepato-splenomegaly Extremities: No clubbing, No edema Skin: Ulcer/ Wound - Ischium ulcer Wound Measurements and Assessment WC - Nurse 1 - General Ulcer Measurement Start: 05/25/18 10:06 Freq: Status: Active Protocol: Activity Type Activity Date Activity User E-Sign Co-Sign Detail Recorded Client Recorded Date Recorded By Document 06/01/18 10:10 [id number] 06/01/18 10:23 CS 06/01/18 10:10 Wound Center Nurse 1 [Ulcer Assessment] #6 RIGHT ISCHIUM -Combined with other wound No -Current Size (cm) - Length 2.3 -Current Size (cm) - Width 5.7 -Current Size (cm) - Depth 0.3 -Total Square Cm 13.11 -Date of Last Picture (Recall this 06/01/18 field) -Photo Taken Yes -Epithelialization None Present -Tunneling No -Undermining/Tunneling No -Circular Undermining No -Exudate Amt Medium (34-66%) -Exudate Type Yellow/Green -Wound Margin Distinct, Outline Attached -Granulation Amt Medium (34-66%) -Granulation Quality Pale [place] -Slough/Fibrin Yes -Necrosis Amt None Present (0 %) -Necrotic Tissue Type Adherent Slough -Texture (Ida-wound Skin Appearance) No Abnormality Assessed -Moisture (Ida-wound Skin Appearance No Abnormality ) Assessed -Color (Ida-wound Skin Appearance) No Abnormality Assessed -Temperature (Ida-wound Skin No Abnormality Appearance) (Pt Warm) -Tenderness on Palpation (Ida-wound No Skin Appearance) -Ulcer Cleansing Rinsed/ Irrigated with Saline -Foul Odor after Cleansing No -Anesthetic Used 5% Lidocaine Gel [Edema Assessment] -Lower Limb Edema Present NA WC - Nurse 2 - General Ulcer CM Notes Start: 05/25/18 10:06 Freq: Status: Active Protocol: Activity Type Activity Date Activity User E-Sign Co-Sign Detail Recorded Client Recorded Date Recorded By Document 06/01/18 10:40 [id number] 06/01/18 10:57 06/01/18 10:40 Wound Center Nurse 2 [Procedure/Treatment] #6 RIGHT ISCHIUM -Time 10:44 -Correct Patient Yes -Correct Side, Site, Position Yes -Correct Procedure Yes -Procedure Performed Yes -Type of Procedure Debridement -Clinical Debridement Subcutaneous -Post Debridement Size (cm) - Length 2.0 -Post Debridement Size (cm) - Width 6.0 -Post Debridement Size (cm) - Depth 0.2 -Total Square Cm 12.00 -Wound/Ulcer Outcome Not Healed -Ulcer Cleansing Rinsed/ Irrigated with Saline -Foul Odor after Cleansing No -Bioengineered Tissue No -Bleeding Controlled with NA -Treatment Response Procedure Tolerated Well [See Physician Procedure note for Specifics] Pain Scale: 0-10 Numeric [Pain] -Is Patient Pain Free? Yes Musculoskeletal: No Tenderness to Palpation of Joints or Extremities Lymphatic: No Cervical, Supraclavicular, or Inguinal Adenopathy Neurological: Cranial nerves II-XII grossly intact, Neuro grossly intact Psych/Mental Status: Normal Affect, Appropriate Debridement Note Post-Debridement Measurements/Treatment WC - Nurse 2 - General Ulcer CM Notes Start: 05/25/18 10:06 Freq: Status: Active Protocol: Activity Type Activity Date Activity User E-Sign Co-Sign Detail Recorded Client Recorded Date Recorded By Document 05/25/18 10:37 MW [id number] 05/25/18 10:39 MW Document 06/01/18 10:40 JS [id number] 06/01/18 10:57 JS 05/25/18 06/01/18 10:37 10:40 Wound Center Nurse 2 #6 RIGHT ISCHIUM -Time 10:37 10:44 -Correct Patient Yes Yes -Correct Side, Site, Position Yes Yes -Correct Procedure Yes Yes -Procedure Performed Yes Yes -Type of Procedure Debridement Debridement -Clinical Debridement Subcutaneous Subcutaneous -Post Debridement Size (cm) - Length 2.5 2.0 -Post Debridement Size (cm) - Width 5.5 6.0 -Post Debridement Size (cm) - Depth 0.2 0.2 -Total Square Cm 13.75 12.00 -Wound/Ulcer Outcome Not Healed Not Healed -Ulcer Cleansing Rinsed/ Rinsed/ Irrigated with Irrigated with Saline Saline -Foul Odor after Cleansing No No -Bioengineered Tissue No No -Bleeding Controlled with Pressure NA -Treatment Response Procedure Procedure Tolerated Well Tolerated Well Pain Scale: 0-10 Numeric Is Patient Pain Free? Yes Yes Wound debrided: Right ischium ulcer Type of Debridement: Excisional debridement Anesthesia Used: 5% Lidocaine Gel Depth: Down to and including healthy tissue, in the subcutaneous layer Percentage of wound debrided: 100 Instrument Used: 7mm curette Tissue Removed: Fibrin and some slough Severity: Limited To Skin Breakdown Amount of bleeding with debridement: Moderate Bleeding Controlled with: Pressure Patient tolerated procedure well Assessment/Plan Active Problems Decubitus ulcer of right ischium, stage 3 (Acute) History of osteomyelitis (Chronic) right sacral area Spina bifida (Chronic) Malnutrition compromising bodily function (Chronic) Assessment: Decubitus ulcer stage III right ischium. Spina bifida. Paraplegia. Hydrocephalus. History of osteomyelitis. Infected ulcer Plan: Aquacel silver to the undermined area and Santyl nickel thickness on the ulcer with fluffed gauze cover with absorbent sachet twice daily dressing changes. follow up in 1 week
[2018-06-08 10:07] VITALS: BP 102/74; PULSE 95; RESP 18; TEMP 37.3
--- NOTE | 2018-06-08 11:17 | PCM.WC.PN ---
(1) Decubitus ulcer of right ischium, stage 3 Status: Acute Current Visit: Yes Code(s): L89.313 - Pressure ulcer of right buttock, stage 3 (2) History of osteomyelitis Status: Chronic Current Visit: Yes Code(s): Z87.39 - Personal history of other diseases of the musculoskeletal system and connective tissue Comment: right sacral area (3) Malnutrition compromising bodily function Status: Chronic Current Visit: Yes Code(s): E46 - Unspecified protein-calorie malnutrition (4) Spina bifida Status: Chronic Current Visit: Yes Code(s): Q05.9 - Spina bifida, unspecified Type of Wound Date of Service: 06/08/18 Chief Complaint: Right ischium ulcer History of Wound: 21-year-old with past medical history of spina bifida paraplegia hydrocephalus osteomyelitis had been doing rather well until developed kidney stones and was taken to the hospital approximately 2 weeks ago spent in overnighter and developed a decubitus ulcer in the right issue him after receiving Lipsotripsy for his kidneys. Stage 3 ulcer with some slough no odor cultures will be taken. Patient will be started on Tosha moistened Adaptic abdominal dressings tape. Progress of Wound: Still at 12 1:00 is undermining is smaller. Maceration around the edge of the ulcer is slight much better. He states lot more discharge this week so we will culture. Family has been increasing dressing changes to twice a day for the maceration. Ulcer is still covered and enough light coating of yellow using Santyl is working very well, will continue. The undermining area is getting smaller. - Physical Exam Vital Signs Temp Pulse Resp BP 99.1 F 95 18 102/74 06/08/18 10:07 06/08/18 10:07 06/08/18 10:07 06/08/18 10:07 General: Oriented x3, Cooperative, Well developed HEENT: Atraumatic, PERRLA Oral: Moist Mucosa Neck: Supple, No JVD Lungs: Clear to auscultation, Normal air movement Cardiovascular: Regular rate, Regular Rhythm Abdomen: Bowel Sounds Present, Soft, Non Tender, No Hepato-splenomegaly Extremities: No clubbing, No edema Skin: Ulcer/ Wound - Indicium ulcer Wound Measurements and Assessment WC - Nurse 1 - General Ulcer Measurement Start: 05/25/18 10:06 Freq: Status: Active Protocol: Activity Type Activity Date Activity User E-Sign Co-Sign Detail Recorded Client Recorded Date Recorded By Document 06/08/18 10:07 [id number] 06/08/18 10:10 06/08/18 10:07 Wound Center Nurse 1 [Ulcer Assessment] #6 RIGHT ISCHIUM -Combined with other wound No -Current Size (cm) - Length 2.0 -Current Size (cm) - Width 6.0 -Current Size (cm) - Depth 0.1 -Total Square Cm 12.00 -Photo Taken No -Epithelialization Small 1-33% -Tunneling No -Undermining/Tunneling No -Circular Undermining No -Classification - Thickness Full Thickness without Exposed Support Structure -Exudate Amt Large (67-100%) -Exudate Type Serosanguineous -Wound Margin Distinct, Outline Attached -Granulation Amt Large (67-100%) -Granulation Quality Pale [place] -Slough/Fibrin Yes -Necrosis Amt Small (1-33%) -Necrotic Tissue Type Adherent Slough -Structure Exposed Fascia Fat Layer Exposed -Texture (Ida-wound Skin Appearance) Assessed Friable Scarring -Moisture (Ida-wound Skin Appearance Assessed ) Maceration -Color (Ida-wound Skin Appearance) Assessed -Temperature (Ida-wound Skin No Abnormality Appearance) (Pt Warm) -Tenderness on Palpation (Ida-wound No Skin Appearance) -Ulcer Cleansing Rinsed/ Irrigated with Saline -Foul Odor after Cleansing No -Anesthetic Used 5% Lidocaine Gel [Edema Assessment] -Lower Limb Edema Present No WC - Nurse 2 - General Ulcer CM Notes Start: 05/25/18 10:06 Freq: Status: Active Protocol: Activity Type Activity Date Activity User E-Sign Co-Sign Detail Recorded Client Recorded Date Recorded By Document 06/08/18 10:49 [id number] 06/08/18 10:50 06/08/18 10:49 Wound Center Nurse 2 [Procedure/Treatment] #6 RIGHT ISCHIUM -Time 10:49 -Correct Patient Yes -Correct Side, Site, Position Yes -Correct Procedure Yes -Procedure Performed Yes -Type of Procedure Debridement -Clinical Debridement Subcutaneous -Post Debridement Size (cm) - Length 2.3 -Post Debridement Size (cm) - Width 4.2 -Post Debridement Size (cm) - Depth 0.2 -Total Square Cm 9.66 -Wound/Ulcer Outcome Not Healed -Ulcer Cleansing Rinsed/ Irrigated with Saline -Foul Odor after Cleansing No -Bioengineered Tissue No -Bleeding Controlled with Pressure -Treatment Response Procedure Tolerated Well [See Physician Procedure note for Specifics] Pain Scale: 0-10 Numeric [Pain] -Is Patient Pain Free? Yes Musculoskeletal: No Tenderness to Palpation of Joints or Extremities Lymphatic: No Cervical, Supraclavicular, or Inguinal Adenopathy Neurological: Cranial nerves II-XII grossly intact, Neuro grossly intact Psych/Mental Status: Normal Affect, Appropriate Debridement Note Post-Debridement Measurements/Treatment WC - Nurse 2 - General Ulcer CM Notes Start: 05/25/18 10:06 Freq: Status: Active Protocol: Activity Type Activity Date Activity User E-Sign Co-Sign Detail Recorded Client Recorded Date Recorded By Document 05/25/18 10:37 MW [id number] 05/25/18 10:39 MW Document 06/01/18 10:40 JS [id number] 06/01/18 10:57 JS Document 06/08/18 10:49 CS [id number] 06/08/18 10:50 CS 05/25/18 06/01/18 06/08/18 10:37 10:40 10:49 Wound Center Nurse 2 #6 RIGHT ISCHIUM -Time 10:37 10:44 10:49 -Correct Patient Yes Yes Yes -Correct Side, Site, Position Yes Yes Yes -Correct Procedure Yes Yes Yes -Procedure Performed Yes Yes Yes -Type of Procedure Debridement Debridement Debridement -Clinical Debridement Subcutaneous Subcutaneous Subcutaneous -Post Debridement Size (cm) - Length 2.5 2.0 2.3 -Post Debridement Size (cm) - Width 5.5 6.0 4.2 -Post Debridement Size (cm) - Depth 0.2 0.2 0.2 -Total Square Cm 13.75 12.00 9.66 -Wound/Ulcer Outcome Not Healed Not Healed Not Healed -Ulcer Cleansing Rinsed/ Rinsed/ Rinsed/ Irrigated with Irrigated with Irrigated with Saline Saline Saline -Foul Odor after Cleansing No No No -Bioengineered Tissue No No No -Bleeding Controlled with Pressure NA Pressure -Treatment Response Procedure Procedure Procedure Tolerated Well Tolerated Well Tolerated Well Pain Scale: 0-10 Numeric Is Patient Pain Free? Yes Yes Yes Wound debrided: Right ischium ulcer Wound Grade/Stage: Page 3 Type of Debridement: Excisional debridement Anesthesia Used: 4% Lidocaine Solution Depth: Down to and including healthy tissue, in the subcutaneous layer Percentage of wound debrided: 100 Instrument Used: 7mm curette Tissue Removed: Fibrin Severity: Limited To Skin Breakdown Amount of bleeding with debridement: Moderate Bleeding Controlled with: Compression and gauze Patient tolerated procedure well Assessment/Plan Aerobic and anaerobic cultures obtained Active Problems Decubitus ulcer of right ischium, stage 3 (Acute) History of osteomyelitis (Chronic) right sacral area Spina bifida (Chronic) Malnutrition compromising bodily function (Chronic) Assessment: Decubitus ulcer stage III right ischium. Spina bifida. Paraplegia. Hydrocephalus. History of osteomyelitis. Infected ulcer Plan: Aquacel silver to the undermined area and Santyl nickel thickness on the ulcer with fluffed gauze cover with absorbent sachet twice daily dressing changes. follow up in 2 week. We will call with culture results
[2018-06-21 09:20] VITALS: BP 104/66; PULSE 79; RESP 18; TEMP 37.1
--- NOTE | 2018-06-21 11:15 | PCM.WC.PN ---
(1) Decubitus ulcer of right ischium, stage 3 Status: Acute Current Visit: Yes Code(s): L89.313 - Pressure ulcer of right buttock, stage 3 (2) Spina bifida Status: Chronic Current Visit: Yes Code(s): Q05.9 - Spina bifida, unspecified Type of Wound Date of Service: 06/21/18 Chief Complaint: Right ischium ulcer History of Wound: 21-year-old with past medical history of spina bifida paraplegia hydrocephalus osteomyelitis had been doing rather well until developed kidney stones and was taken to the hospital approximately 2 weeks ago spent in overnighter and developed a decubitus ulcer in the right issue him after receiving Lipsotripsy for his kidneys. Stage 3 ulcer with some slough no odor cultures will be taken. Patient will be started on Tosha moistened Adaptic abdominal dressings tape. Progress of Wound: Courtesy Visit for Alondra Menjivar NP. No new complaints at this time. Tolerating santyl and antibiotics well. - Physical Exam Vital Signs Temp Pulse Resp BP 98.7 F 79 18 104/66 06/21/18 09:20 06/21/18 09:20 06/21/18 09:20 06/21/18 09:20 General: Alert, Oriented x3, Cooperative, No apparent distress Oral: Moist Mucosa Neck: Supple Lungs: Normal air movement Extremities: No cyanosis Skin: Ulcer/ Wound Wound Measurements and Assessment WC - Nurse 1 - General Ulcer Measurement Start: 05/25/18 10:06 Freq: Status: Active Protocol: Activity Type Activity Date Activity User E-Sign Co-Sign Detail Recorded Client Recorded Date Recorded By Document 06/21/18 09:20 DL [id number] 06/21/18 09:34 DL 06/21/18 09:20 Wound Center Nurse 1 [Ulcer Assessment] #6 RIGHT ISCHIUM -Current Size (cm) - Length 1.8 -Current Size (cm) - Width 6.0 -Current Size (cm) - Depth 0.3 -Total Square Cm 10.80 -Epithelialization None Present -Tunneling No -Undermining/Tunneling Yes -Undermining/Tunneling Starts (O' 7 clock) -Undermining/Tunneling Ends (O'clock) 11 -Maximum Distance (cm) 0.5 -Exudate Amt Small (1-33%) -Exudate Type Yellow/Green -Wound Margin Thickened -Granulation Amt None Present (0 %) -Slough/Fibrin Yes -Necrosis Amt Large (67-100%) -Necrotic Tissue Type Adherent Slough -Structure Exposed N/A -Texture (Ida-wound Skin Appearance) Scarring -Moisture (Ida-wound Skin Appearance Maceration ) -Color (Ida-wound Skin Appearance) Rubor -Temperature (Ida-wound Skin No Abnormality Appearance) (Pt Warm) -Tenderness on Palpation (Ida-wound No Skin Appearance) -Ulcer Cleansing Rinsed/ Irrigated with Saline -Foul Odor after Cleansing No -Anesthetic Used 4% Lidocaine Solution - Nurse 2 - General Ulcer CM Notes Start: 05/25/18 10:06 Freq: Status: Active Protocol: Activity Type Activity Date Activity User E-Sign Co-Sign Detail Recorded Client Recorded Date Recorded By Document 06/21/18 09:44 MW [id number] 06/21/18 09:50 MW 06/21/18 09:44 Wound Center Nurse 2 [Procedure/Treatment] -Time 09:44 -Correct Patient Yes -Correct Side, Site, Position Yes -Correct Procedure Yes -Procedure Performed Yes -Type of Procedure Debridement -Clinical Debridement Subcutaneous -Post Debridement Size (cm) - Length 1.7 -Post Debridement Size (cm) - Width 6.0 -Post Debridement Size (cm) - Depth 0.5 -Total Square Cm 10.20 -Wound/Ulcer Outcome Not Healed -Ulcer Cleansing Rinsed/ Irrigated with Saline -Foul Odor after Cleansing No -Bioengineered Tissue No -Bleeding Controlled with Pressure -Treatment Response Procedure Tolerated Well [See Physician Procedure note for Specifics] Pain Scale: 0-10 Numeric [Pain] -Is Patient Pain Free? Yes Musculoskeletal: No Muscle Wasting Neurological: Cranial nerves II-XII grossly intact Psych/Mental Status: Normal Affect Debridement Note Post-Debridement Measurements/Treatment - Nurse 2 - General Ulcer CM Notes Start: 05/25/18 10:06 Freq: Status: Active Protocol: Activity Type Activity Date Activity User E-Sign Co-Sign Detail Recorded Client Recorded Date Recorded By Document 05/25/18 10:37 MW [id number] 05/25/18 10:39 MW Document 06/01/18 10:40 JS [id number] 06/01/18 10:57 JS Document 06/08/18 10:49 CS [id number] 06/08/18 10:50 CS Document 06/21/18 09:44 MW [id number] 06/21/18 09:50 MW 05/25/18 06/01/18 06/08/18 10:37 10:40 10:49 Wound Center Nurse 2 #6 RIGHT ISCHIUM -Time 10:37 10:44 10:49 -Correct Patient Yes Yes Yes -Correct Side, Site, Position Yes Yes Yes -Correct Procedure Yes Yes Yes -Procedure Performed Yes Yes Yes -Type of Procedure Debridement Debridement Debridement -Clinical Debridement Subcutaneous Subcutaneous Subcutaneous -Post Debridement Size (cm) - Length 2.5 2.0 2.3 -Post Debridement Size (cm) - Width 5.5 6.0 4.2 -Post Debridement Size (cm) - Depth 0.2 0.2 0.2 -Total Square Cm 13.75 12.00 9.66 -Wound/Ulcer Outcome Not Healed Not Healed Not Healed -Ulcer Cleansing Rinsed/ Rinsed/ Rinsed/ Irrigated with Irrigated with Irrigated with Saline Saline Saline -Foul Odor after Cleansing No No No -Bioengineered Tissue No No No -Bleeding Controlled with Pressure NA Pressure -Treatment Response Procedure Procedure Procedure Tolerated Well Tolerated Well Tolerated Well Pain Scale: 0-10 Numeric Is Patient Pain Free? Yes Yes Yes 06/21/18 09:44 Wound Center Nurse 2 #6 RIGHT ISCHIUM -Time 09:44 -Correct Patient Yes -Correct Side, Site, Position Yes -Correct Procedure Yes -Procedure Performed Yes -Type of Procedure Debridement -Clinical Debridement Subcutaneous -Post Debridement Size (cm) - Length 1.7 -Post Debridement Size (cm) - Width 6.0 -Post Debridement Size (cm) - Depth 0.5 -Total Square Cm 10.20 -Wound/Ulcer Outcome Not Healed -Ulcer Cleansing Rinsed/ Irrigated with Saline -Foul Odor after Cleansing No -Bioengineered Tissue No -Bleeding Controlled with Pressure -Treatment Response Procedure Tolerated Well Pain Scale: 0-10 Numeric Is Patient Pain Free? Yes Wound debrided: Right Buttock Wound Grade/Stage: Stage III Type of Debridement: Excisional debridement Anesthesia Used: 4% Lidocaine Solution Depth: Down to and including healthy tissue, in the subcutaneous layer Percentage of wound debrided: 100 Instrument Used: 5mm curette Tissue Removed: Slough and devitalized tissue Severity: Fat Layer Exposed Amount of bleeding with debridement: Mild Bleeding Controlled with: Pressure Patient tolerated procedure well Assessment/Plan Active Problems Decubitus ulcer of right ischium, stage 3 (Acute) History of osteomyelitis (Chronic) right sacral area Spina bifida (Chronic) Malnutrition compromising bodily function (Chronic) Assessment: Decubitus ulcer stage III right ischium. Spina bifida. Paraplegia. Hydrocephalus. History of osteomyelitis. Infected ulcer Plan: Debridement done as doumented above, procedure was well tolerated. Continue aquacel to undermining and santyl to ulcer base. Continue offloading. Increased protein intake recommended. Follow up in 1 week with Alondra Menjivar NP. Advised to call with any questions or concerns.
--- NOTE | 2018-06-21 11:22 | PN.PCM_ITS ---
(1) Decubitus ulcer of right ischium, stage 3 Status: Acute Current Visit: Yes Code(s): L89.313 - Pressure ulcer of right buttock, stage 3 (2) Spina bifida Status: Chronic Current Visit: Yes Code(s): Q05.9 - Spina bifida, unspecified Type of Wound Date of Service: 06/21/18 Chief Complaint: Right ischium ulcer History of Wound: 21-year-old with past medical history of spina bifida paraplegia hydrocephalus osteomyelitis had been doing rather well until developed kidney stones and was taken to the hospital approximately 2 weeks ago spent in overnighter and developed a decubitus ulcer in the right issue him after receiving Lipsotripsy for his kidneys. Stage 3 ulcer with some slough no odor cultures will be taken. Patient will be started on Tosha moistened Adaptic abdominal dressings tape. Progress of Wound: Courtesy Visit for Alondra Menjivar NP. No new complaints at this time. Tolerating santyl and antibiotics well. - Physical Exam Vital Signs Temp Pulse Resp BP 98.7 F 79 18 104/66 06/21/18 09:20 06/21/18 09:20 06/21/18 09:20 06/21/18 09:20 General: Alert, Oriented x3, Cooperative, No apparent distress Oral: Moist Mucosa Neck: Supple Lungs: Normal air movement Extremities: No cyanosis Skin: Ulcer/ Wound Wound Measurements and Assessment WC - Nurse 1 - General Ulcer Measurement Start: 05/25/18 10:06 Freq: Status: Active Protocol: Activity Type Activity Date Activity User E-Sign Co-Sign Detail Recorded Client Recorded Date Recorded By Document 06/21/18 09:20 DL [id number] 06/21/18 09:34 DL 06/21/18 09:20 Wound Center Nurse 1 [Ulcer Assessment] #6 RIGHT ISCHIUM -Current Size (cm) - Length 1.8 -Current Size (cm) - Width 6.0 -Current Size (cm) - Depth 0.3 -Total Square Cm 10.80 -Epithelialization None Present -Tunneling No -Undermining/Tunneling Yes -Undermining/Tunneling Starts (O' 7 clock) -Undermining/Tunneling Ends (O'clock) 11 -Maximum Distance (cm) 0.5 -Exudate Amt Small (1-33%) -Exudate Type Yellow/Green -Wound Margin Thickened -Granulation Amt None Present (0 %) -Slough/Fibrin Yes -Necrosis Amt Large (67-100%) -Necrotic Tissue Type Adherent Slough -Structure Exposed N/A -Texture (Ida-wound Skin Appearance) Scarring -Moisture (Ida-wound Skin Appearance Maceration ) -Color (Ida-wound Skin Appearance) Rubor -Temperature (Ida-wound Skin No Abnormality Appearance) (Pt Warm) -Tenderness on Palpation (Ida-wound No Skin Appearance) -Ulcer Cleansing Rinsed/ Irrigated with Saline -Foul Odor after Cleansing No -Anesthetic Used 4% Lidocaine Solution - Nurse 2 - General Ulcer CM Notes Start: 05/25/18 10:06 Freq: Status: Active Protocol: Activity Type Activity Date Activity User E-Sign Co-Sign Detail Recorded Client Recorded Date Recorded By Document 06/21/18 09:44 MW [id number] 06/21/18 09:50 MW 06/21/18 09:44 Wound Center Nurse 2 [Procedure/Treatment] -Time 09:44 -Correct Patient Yes -Correct Side, Site, Position Yes -Correct Procedure Yes -Procedure Performed Yes -Type of Procedure Debridement -Clinical Debridement Subcutaneous -Post Debridement Size (cm) - Length 1.7 -Post Debridement Size (cm) - Width 6.0 -Post Debridement Size (cm) - Depth 0.5 -Total Square Cm 10.20 -Wound/Ulcer Outcome Not Healed -Ulcer Cleansing Rinsed/ Irrigated with Saline -Foul Odor after Cleansing No -Bioengineered Tissue No -Bleeding Controlled with Pressure -Treatment Response Procedure Tolerated Well [See Physician Procedure note for Specifics] Pain Scale: 0-10 Numeric [Pain] -Is Patient Pain Free? Yes Musculoskeletal: No Muscle Wasting Neurological: Cranial nerves II-XII grossly intact Psych/Mental Status: Normal Affect Debridement Note Post-Debridement Measurements/Treatment - Nurse 2 - General Ulcer CM Notes Start: 05/25/18 10:06 Freq: Status: Active Protocol: Activity Type Activity Date Activity User E-Sign Co-Sign Detail Recorded Client Recorded Date Recorded By Document 05/25/18 10:37 MW [id number] 05/25/18 10:39 MW Document 06/01/18 10:40 JS [id number] 06/01/18 10:57 JS Document 06/08/18 10:49 CS [id number] 06/08/18 10:50 CS Document 06/21/18 09:44 MW [id number] 06/21/18 09:50 MW 05/25/18 06/01/18 06/08/18 10:37 10:40 10:49 Wound Center Nurse 2 #6 RIGHT ISCHIUM -Time 10:37 10:44 10:49 -Correct Patient Yes Yes Yes -Correct Side, Site, Position Yes Yes Yes -Correct Procedure Yes Yes Yes -Procedure Performed Yes Yes Yes -Type of Procedure Debridement Debridement Debridement -Clinical Debridement Subcutaneous Subcutaneous Subcutaneous -Post Debridement Size (cm) - Length 2.5 2.0 2.3 -Post Debridement Size (cm) - Width 5.5 6.0 4.2 -Post Debridement Size (cm) - Depth 0.2 0.2 0.2 -Total Square Cm 13.75 12.00 9.66 -Wound/Ulcer Outcome Not Healed Not Healed Not Healed -Ulcer Cleansing Rinsed/ Rinsed/ Rinsed/ Irrigated with Irrigated with Irrigated with Saline Saline Saline -Foul Odor after Cleansing No No No -Bioengineered Tissue No No No -Bleeding Controlled with Pressure NA Pressure -Treatment Response Procedure Procedure Procedure Tolerated Well Tolerated Well Tolerated Well Pain Scale: 0-10 Numeric Is Patient Pain Free? Yes Yes Yes 06/21/18 09:44 Wound Center Nurse 2 #6 RIGHT ISCHIUM -Time 09:44 -Correct Patient Yes -Correct Side, Site, Position Yes -Correct Procedure Yes -Procedure Performed Yes -Type of Procedure Debridement -Clinical Debridement Subcutaneous -Post Debridement Size (cm) - Length 1.7 -Post Debridement Size (cm) - Width 6.0 -Post Debridement Size (cm) - Depth 0.5 -Total Square Cm 10.20 -Wound/Ulcer Outcome Not Healed -Ulcer Cleansing Rinsed/ Irrigated with Saline -Foul Odor after Cleansing No -Bioengineered Tissue No -Bleeding Controlled with Pressure -Treatment Response Procedure Tolerated Well Pain Scale: 0-10 Numeric Is Patient Pain Free? Yes Wound debrided: Right Buttock Wound Grade/Stage: Stage III Type of Debridement: Excisional debridement Anesthesia Used: 4% Lidocaine Solution Depth: Down to and including healthy tissue, in the subcutaneous layer Percentage of wound debrided: 100 Instrument Used: 5mm curette Tissue Removed: Slough and devitalized tissue Severity: Fat Layer Exposed Amount of bleeding with debridement: Mild Bleeding Controlled with: Pressure Patient tolerated procedure well Assessment/Plan Active Problems Decubitus ulcer of right ischium, stage 3 (Acute) History of osteomyelitis (Chronic) right sacral area Spina bifida (Chronic) Malnutrition compromising bodily function (Chronic) Assessment: Decubitus ulcer stage III right ischium. Spina bifida. Paraplegia. Hydrocephalus. History of osteomyelitis. Infected ulcer Plan: Debridement done as doumented above, procedure was well tolerated. Continue aquacel to undermining and santyl to ulcer base. Continue offloading. Increased protein intake recommended. Follow up in 1 week with Alondra Menjivar NP. Advised to call with any questions or concerns.
== END 2018-06-22 23:59 ==
LOC: WC 08:00
PROVIDERS: Family Provider Family Medicine; PCP Family Medicine; Visit Provider Nurse Practitioner
DX: L89.213 Pressure ulcer of right hip, stage 3 (principal); Z87.39 Personal history of other diseases of the musculoskeletal system and connective tissue; Q05.9 Spina bifida, unspecified; G91.9 Hydrocephalus, unspecified
CPT/HCPCS: 11042; 87070; 87075; 87076; 87077; 87186; 87205

== ENCOUNTER 2018-07-20 09:30 | Outpatient (RCR) | payer OTHER, MEDICAID, SELFPAY ==
[2018-06-23 01:05] VITALS: BP 104/66; PULSE 79; RESP 18; TEMP 37.1
[2018-06-29 10:12] VITALS: BP 108/74; PULSE 88; RESP 16; TEMP 36.7
--- NOTE | 2018-06-29 11:01 | PCM.WC.PN ---
Type of Wound Date of Service: 06/29/18 Chief Complaint: Right ischium ulcer History of Wound: 21-year-old with past medical history of spina bifida paraplegia hydrocephalus osteomyelitis had been doing rather well until developed kidney stones and was taken to the hospital approximately 2 weeks ago spent in overnighter and developed a decubitus ulcer in the right issue him after receiving Lipsotripsy for his kidneys. Stage 3 ulcer with some slough no odor cultures will be taken. Patient will be started on Tosha moistened Adaptic abdominal dressings tape. Progress of Wound: Courtesy Visit for Alondra Menjivar NP. No new complaints at this time. Tolerating santyl and antibiotics well. - Physical Exam Vital Signs Temp Pulse Resp BP 98.0 F 88 16 108/74 06/29/18 10:12 06/29/18 10:12 06/29/18 10:12 06/29/18 10:12 Wound Measurements and Assessment WC - Nurse 1 - General Ulcer Measurement Start: 06/29/18 09:54 Freq: Status: Active Protocol: Activity Type Activity Date Activity User E-Sign Co-Sign Detail Recorded Client Recorded Date Recorded By Document 06/29/18 10:12 [id number] 06/29/18 10:13 06/29/18 10:12 Wound Center Nurse 1 [Ulcer Assessment] #6 RIGHT ISCHIUM -Combined with other wound No -Current Size (cm) - Length 1.8 -Current Size (cm) - Width 4.7 -Current Size (cm) - Depth 0.3 -Total Square Cm 8.46 -Photo Taken No -Epithelialization None Present -Tunneling No -Undermining/Tunneling No -Circular Undermining No -Exudate Amt Medium (34-66%) -Exudate Type Serosanguineous -Wound Margin Distinct, Outline Attached -Granulation Quality [place] -Slough/Fibrin Yes -Necrosis Amt None Present (0 %) -Necrotic Tissue Type Adherent Slough -Texture (Ida-wound Skin Appearance) No Abnormality Assessed -Moisture (Ida-wound Skin Appearance No Abnormality ) Assessed -Color (Ida-wound Skin Appearance) No Abnormality Assessed -Temperature (Ida-wound Skin No Abnormality Appearance) (Pt Warm) -Tenderness on Palpation (Ida-wound No Skin Appearance) -Ulcer Cleansing Rinsed/ Irrigated with Saline -Foul Odor after Cleansing No -Anesthetic Used 4% Lidocaine Solution [Edema Assessment] -Lower Limb Edema Present NA - Nurse 2 - General Ulcer CM Notes Start: 06/29/18 09:54 Freq: Status: Active Protocol: Activity Type Activity Date Activity User E-Sign Co-Sign Detail Recorded Client Recorded Date Recorded By Document 06/29/18 10:21 MW [id number] 06/29/18 10:24 MW 06/29/18 10:21 Wound Center Nurse 2 [Procedure/Treatment] #6 RIGHT ISCHIUM -Time 10:22 -Correct Patient Yes -Correct Side, Site, Position Yes -Correct Procedure Yes -Procedure Performed Yes -Type of Procedure Debridement -Clinical Debridement Subcutaneous -Post Debridement Size (cm) - Length 1.8 -Post Debridement Size (cm) - Width 6.0 -Post Debridement Size (cm) - Depth 0.3 -Total Square Cm 10.80 -Wound/Ulcer Outcome Not Healed -Ulcer Cleansing Rinsed/ Irrigated with Saline -Foul Odor after Cleansing No -Bioengineered Tissue No -Bleeding Controlled with Pressure -Other TUNNEL @1 , 1.8 CM -Treatment Response Procedure Tolerated Well [See Physician Procedure note for Specifics] Pain Scale: 0-10 Numeric [Pain] -Is Patient Pain Free? Yes Debridement Note Post-Debridement Measurements/Treatment - Nurse 2 - General Ulcer CM Notes Start: 06/29/18 09:54 Freq: Status: Active Protocol: Activity Type Activity Date Activity User E-Sign Co-Sign Detail Recorded Client Recorded Date Recorded By Document 06/29/18 10:21 MW [id number] 06/29/18 10:24 MW 06/29/18 10:21 Wound Center Nurse 2 #6 RIGHT ISCHIUM -Time 10:22 -Correct Patient Yes -Correct Side, Site, Position Yes -Correct Procedure Yes -Procedure Performed Yes -Type of Procedure Debridement -Clinical Debridement Subcutaneous -Post Debridement Size (cm) - Length 1.8 -Post Debridement Size (cm) - Width 6.0 -Post Debridement Size (cm) - Depth 0.3 -Total Square Cm 10.80 -Wound/Ulcer Outcome Not Healed -Ulcer Cleansing Rinsed/ Irrigated with Saline -Foul Odor after Cleansing No -Bioengineered Tissue No -Bleeding Controlled with Pressure -Other TUNNEL @1 , 1.8 CM -Treatment Response Procedure Tolerated Well Pain Scale: 0-10 Numeric Is Patient Pain Free? Yes Assessment/Plan Assessment: Decubitus ulcer stage III right ischium. Spina bifida. Paraplegia. Hydrocephalus. History of osteomyelitis. Infected ulcer Plan: Debridement done as doumented above, procedure was well tolerated. Continue aquacel to undermining and santyl to ulcer base. Continue offloading. Increased protein intake recommended. Follow up in 1 week with Alondra Menjivar NP. Advised to call with any questions or concerns.
--- NOTE | 2018-06-29 11:49 | PCM.WC.PN ---
(1) MRSA (methicillin resistant staph aureus) culture positive Status: Acute Current Visit: Yes Code(s): Z22.322 - Carrier or suspected carrier of Methicillin resistant Staphylococcus aureus (2) Decubitus ulcer of right ischium, stage 3 Status: Acute Current Visit: Yes Code(s): L89.313 - Pressure ulcer of right buttock, stage 3 (3) Infected wound Status: Acute Current Visit: Yes Code(s): T14.8 - Other injury of unspecified body region; L08.9 - Local infection of the skin and subcutaneous tissue, unspecified (4) Chronic osteomyelitis, pelvic region and thigh Status: Chronic Current Visit: Yes Code(s): M86.659 - Other chronic osteomyelitis, unspecified thigh Comment: right sacral area (5) Malnutrition compromising bodily function Status: Chronic Current Visit: Yes Code(s): E46 - Unspecified protein-calorie malnutrition (6) Spina bifida Status: Chronic Current Visit: Yes Code(s): Q05.9 - Spina bifida, unspecified Type of Wound Date of Service: 06/29/18 Chief Complaint: Right ischium ulcer History of Wound: 21-year-old with past medical history of spina bifida paraplegia hydrocephalus osteomyelitis had been doing rather well until developed kidney stones and was taken to the hospital approximately 2 weeks ago spent in overnighter and developed a decubitus ulcer in the right issue him after receiving Lipsotripsy for his kidneys. Stage 3 ulcer with some slough no odor cultures will be taken. Patient will be started on Tosha moistened Adaptic abdominal dressings tape. Progress of Wound: Today the ulcer looks good it is not worsening the undermining is actually getting tighter to get in to measure. Patient is not tolerating meds very well but managing to get them finished has about 3 or 4 more days having a lot of nauseousness suggested increasing the probiotics and taking with food on most of the medications even if it snacks or what ever. The undermining area is slightly smaller the overall wound bleeds easily and looks good. - Physical Exam Vital Signs Temp Pulse Resp BP 98.0 F 88 16 108/74 06/29/18 10:12 06/29/18 10:12 06/29/18 10:12 06/29/18 10:12 General: Oriented x3, Cooperative, Well developed HEENT: Atraumatic, PERRLA Oral: Moist Mucosa Neck: Supple, No JVD Lungs: Clear to auscultation, Normal air movement Cardiovascular: Regular rate, Regular Rhythm Abdomen: Bowel Sounds Present, Soft, Non Tender, No Hepato-splenomegaly Extremities: No clubbing, No edema Skin: Ulcer/ Wound - Right ischium with some undermining at 1:00 Wound Measurements and Assessment WC - Nurse 1 - General Ulcer Measurement Start: 06/29/18 09:54 Freq: Status: Active Protocol: Activity Type Activity Date Activity User E-Sign Co-Sign Detail Recorded Client Recorded Date Recorded By Document 06/29/18 10:12 CS [id number] 06/29/18 10:13 CS 06/29/18 10:12 Wound Center Nurse 1 [Ulcer Assessment] #6 RIGHT ISCHIUM -Combined with other wound No -Current Size (cm) - Length 1.8 -Current Size (cm) - Width 4.7 -Current Size (cm) - Depth 0.3 -Total Square Cm 8.46 -Photo Taken No -Epithelialization None Present -Tunneling No -Undermining/Tunneling No -Circular Undermining No -Exudate Amt Medium (34-66%) -Exudate Type Serosanguineous -Wound Margin Distinct, Outline Attached -Granulation Quality Pale [place] -Slough/Fibrin Yes -Necrosis Amt None Present (0 %) -Necrotic Tissue Type Adherent Slough -Texture (Ida-wound Skin Appearance) No Abnormality Assessed -Moisture (Ida-wound Skin Appearance No Abnormality ) Assessed -Color (Ida-wound Skin Appearance) No Abnormality Assessed -Temperature (Ida-wound Skin No Abnormality Appearance) (Pt Warm) -Tenderness on Palpation (Ida-wound No Skin Appearance) -Ulcer Cleansing Rinsed/ Irrigated with Saline -Foul Odor after Cleansing No -Anesthetic Used 4% Lidocaine Solution [Edema Assessment] -Lower Limb Edema Present NA WC - Nurse 2 - General Ulcer CM Notes Start: 06/29/18 09:54 Freq: Status: Active Protocol: Activity Type Activity Date Activity User E-Sign Co-Sign Detail Recorded Client Recorded Date Recorded By Document 06/29/18 10:21 MW [id number] 06/29/18 10:24 MW 06/29/18 10:21 Wound Center Nurse 2 [Procedure/Treatment] #6 RIGHT ISCHIUM -Time 10:22 -Correct Patient Yes -Correct Side, Site, Position Yes -Correct Procedure Yes -Procedure Performed Yes -Type of Procedure Debridement -Clinical Debridement Subcutaneous -Post Debridement Size (cm) - Length 1.8 -Post Debridement Size (cm) - Width 6.0 -Post Debridement Size (cm) - Depth 0.3 -Total Square Cm 10.80 -Wound/Ulcer Outcome Not Healed -Ulcer Cleansing Rinsed/ Irrigated with Saline -Foul Odor after Cleansing No -Bioengineered Tissue No -Bleeding Controlled with Pressure -Other TUNNEL @1 , 1.8 CM -Treatment Response Procedure Tolerated Well [See Physician Procedure note for Specifics] Pain Scale: 0-10 Numeric [Pain] -Is Patient Pain Free? Yes Musculoskeletal: No Tenderness to Palpation of Joints or Extremities Lymphatic: No Cervical, Supraclavicular, or Inguinal Adenopathy Neurological: Cranial nerves II-XII grossly intact, Neuro grossly intact Psych/Mental Status: Normal Affect, Appropriate Debridement Note Post-Debridement Measurements/Treatment WC - Nurse 2 - General Ulcer CM Notes Start: 06/29/18 09:54 Freq: Status: Active Protocol: Activity Type Activity Date Activity User E-Sign Co-Sign Detail Recorded Client Recorded Date Recorded By Document 06/29/18 10:21 MW [id number] 06/29/18 10:24 MW 06/29/18 10:21 Wound Center Nurse 2 #6 RIGHT ISCHIUM -Time 10:22 -Correct Patient Yes -Correct Side, Site, Position Yes -Correct Procedure Yes -Procedure Performed Yes -Type of Procedure Debridement -Clinical Debridement Subcutaneous -Post Debridement Size (cm) - Length 1.8 -Post Debridement Size (cm) - Width 6.0 -Post Debridement Size (cm) - Depth 0.3 -Total Square Cm 10.80 -Wound/Ulcer Outcome Not Healed -Ulcer Cleansing Rinsed/ Irrigated with Saline -Foul Odor after Cleansing No -Bioengineered Tissue No -Bleeding Controlled with Pressure -Other TUNNEL @1 , 1.8 CM -Treatment Response Procedure Tolerated Well Pain Scale: 0-10 Numeric Is Patient Pain Free? Yes Wound debrided: Right ischium ulcer Type of Debridement: Excisional debridement Anesthesia Used: 5% Lidocaine Gel Depth: Down to and including healthy tissue, in the subcutaneous layer, to muscle Percentage of wound debrided: 100 Instrument Used: 7mm curette Tissue Removed: Fibrin devitalized tissue Amount of bleeding with debridement: Moderate Bleeding Controlled with: Compression and gauze Patient tolerated procedure well Assessment/Plan Active Problems MRSA (methicillin resistant staph aureus) culture positive (Acute) Infected wound (Acute) Decubitus ulcer of right ischium, stage 3 (Acute) Spina bifida (Chronic) Chronic osteomyelitis, pelvic region and thigh (Chronic) right sacral area Malnutrition compromising bodily function (Chronic) Assessment: Decubitus ulcer stage III right ischium. Spina bifida. Paraplegia. Hydrocephalus. History of osteomyelitis. Infected ulcer Plan: Debridement done as doumented above, procedure was well tolerated. Continue aquacel to undermining and santyl to ulcer base. Continue offloading. Increased protein intake recommended. Follow up in 1 week with Alondra Menjivar NP. Advised to call with any questions or concerns.
[2018-07-06 10:07] VITALS: BP 107/66; PULSE 86; RESP 14; TEMP 35.5
--- NOTE | 2018-07-06 11:09 | PCM.WC.PN ---
(1) MRSA (methicillin resistant staph aureus) culture positive Status: Acute Current Visit: Yes Code(s): Z22.322 - Carrier or suspected carrier of Methicillin resistant Staphylococcus aureus (2) Decubitus ulcer of right ischium, stage 3 Status: Acute Current Visit: Yes Code(s): L89.313 - Pressure ulcer of right buttock, stage 3 (3) Infected wound Status: Acute Current Visit: Yes Code(s): T14.8 - Other injury of unspecified body region; L08.9 - Local infection of the skin and subcutaneous tissue, unspecified (4) Chronic osteomyelitis, pelvic region and thigh Status: Chronic Current Visit: Yes Code(s): M86.659 - Other chronic osteomyelitis, unspecified thigh Comment: right sacral area (5) Malnutrition compromising bodily function Status: Chronic Current Visit: Yes Code(s): E46 - Unspecified protein-calorie malnutrition (6) Spina bifida Status: Chronic Current Visit: Yes Code(s): Q05.9 - Spina bifida, unspecified Type of Wound Date of Service: 07/06/18 Chief Complaint: Right ischium ulcer History of Wound: 21-year-old with past medical history of spina bifida paraplegia hydrocephalus osteomyelitis had been doing rather well until developed kidney stones and was taken to the hospital approximately 2 weeks ago spent in overnighter and developed a decubitus ulcer in the right issue him after receiving Lipsotripsy for his kidneys. Stage 3 ulcer with some slough no odor cultures will be taken. Patient will be started on Tosha moistened Adaptic abdominal dressings tape. Progress of Wound: Today the ulcer looks good it is not worsening the undermining is actually getting tighter to get in to measure. Patient is not tolerating meds very well but managing to get them finished has about 3 or 4 more days having a lot of nauseousness suggested increasing the probiotics and taking with food on most of the medications even if it snacks or what ever. Patient is finishing up his metronidazole today. The undermining area is slightly smaller the overall wound bleeds easily and looks good. - Physical Exam Vital Signs Temp Pulse Resp BP 95.9 F L 86 14 107/66 07/06/18 10:07 07/06/18 10:07 07/06/18 10:07 07/06/18 10:07 General: Oriented x3, Cooperative, Well developed HEENT: Atraumatic, PERRLA Oral: Moist Mucosa Neck: Supple, No JVD Lungs: Clear to auscultation, Normal air movement Cardiovascular: Regular rate, Regular Rhythm Abdomen: Bowel Sounds Present, Soft, Non Tender, No Hepato-splenomegaly Extremities: No clubbing, No edema Skin: Ulcer/ Wound - Right ischium Wound Measurements and Assessment WC - Nurse 1 - General Ulcer Measurement Start: 06/29/18 09:54 Freq: Status: Active Protocol: Activity Type Activity Date Activity User E-Sign Co-Sign Detail Recorded Client Recorded Date Recorded By Document 07/06/18 10:07 CS [id number] 07/06/18 10:08 CS 07/06/18 10:07 Wound Center Nurse 1 [Ulcer Assessment] #6 RIGHT ISCHIUM -Combined with other wound No -Current Size (cm) - Length 1.6 -Current Size (cm) - Width 5.7 -Current Size (cm) - Depth 0.2 -Total Square Cm 9.12 -Photo Taken No -Epithelialization None Present -Tunneling No -Undermining/Tunneling No -Circular Undermining No -Exudate Amt Medium (34-66%) -Exudate Type Serosanguineous -Wound Margin Distinct, Outline Attached -Granulation Amt Medium (34-66%) -Granulation Quality Pale [place] -Slough/Fibrin Yes -Necrosis Amt None Present (0 %) -Necrotic Tissue Type Adherent Slough -Structure Exposed None/Limited to Skin Breakdown -Texture (Ida-wound Skin Appearance) No Abnormality Assessed -Moisture (Ida-wound Skin Appearance No Abnormality ) Assessed -Color (Ida-wound Skin Appearance) No Abnormality Assessed -Temperature (Ida-wound Skin No Abnormality Appearance) (Pt Warm) -Tenderness on Palpation (Ida-wound No Skin Appearance) -Ulcer Cleansing Rinsed/ Irrigated with Saline -Foul Odor after Cleansing No -Anesthetic Used 4% Lidocaine Solution [Edema Assessment] -Lower Limb Edema Present NA - Nurse 2 - General Ulcer CM Notes Start: 06/29/18 09:54 Freq: Status: Active Protocol: Activity Type Activity Date Activity User E-Sign Co-Sign Detail Recorded Client Recorded Date Recorded By Document 07/06/18 10:34 MW [id number] 07/06/18 10:37 MW 07/06/18 10:34 Wound Center Nurse 2 [Procedure/Treatment] #6 RIGHT ISCHIUM -Time 10:34 -Correct Patient Yes -Correct Side, Site, Position Yes -Correct Procedure Yes -Procedure Performed Yes -Type of Procedure Debridement -Clinical Debridement Subcutaneous -Post Debridement Size (cm) - Length 2.0 -Post Debridement Size (cm) - Width 6.0 -Post Debridement Size (cm) - Depth 0.2 -Total Square Cm 12.00 -Wound/Ulcer Outcome Not Healed -Ulcer Cleansing Rinsed/ Irrigated with Saline -Foul Odor after Cleansing No -Bioengineered Tissue No -Bleeding Controlled with Pressure -Treatment Response Procedure Tolerated Well [See Physician Procedure note for Specifics] Pain Scale: 0-10 Numeric [Pain] -Is Patient Pain Free? Yes Musculoskeletal: No Tenderness to Palpation of Joints or Extremities Lymphatic: No Cervical, Supraclavicular, or Inguinal Adenopathy Neurological: Cranial nerves II-XII grossly intact, Neuro grossly intact Psych/Mental Status: Normal Affect, Appropriate Debridement Note Post-Debridement Measurements/Treatment WC - Nurse 2 - General Ulcer CM Notes Start: 06/29/18 09:54 Freq: Status: Active Protocol: Activity Type Activity Date Activity User E-Sign Co-Sign Detail Recorded Client Recorded Date Recorded By Document 06/29/18 10:21 MW [id number] 06/29/18 10:24 MW Document 07/06/18 10:34 MW [id number] 07/06/18 10:37 MW 06/29/18 07/06/18 10:21 10:34 Wound Center Nurse 2 #6 RIGHT ISCHIUM -Time 10:22 10:34 -Correct Patient Yes Yes -Correct Side, Site, Position Yes Yes -Correct Procedure Yes Yes -Procedure Performed Yes Yes -Type of Procedure Debridement Debridement -Clinical Debridement Subcutaneous Subcutaneous -Post Debridement Size (cm) - Length 1.8 2.0 -Post Debridement Size (cm) - Width 6.0 6.0 -Post Debridement Size (cm) - Depth 0.3 0.2 -Total Square Cm 10.80 12.00 -Wound/Ulcer Outcome Not Healed Not Healed -Ulcer Cleansing Rinsed/ Rinsed/ Irrigated with Irrigated with Saline Saline -Foul Odor after Cleansing No No -Bioengineered Tissue No No -Bleeding Controlled with Pressure Pressure -Other TUNNEL @1 , 1.8 CM -Treatment Response Procedure Procedure Tolerated Well Tolerated Well Pain Scale: 0-10 Numeric Is Patient Pain Free? Yes Yes Wound debrided: Right ischium Type of Debridement: Excisional debridement Anesthesia Used: 5% Lidocaine Gel Depth: Down to and including healthy tissue, in the subcutaneous layer Percentage of wound debrided: 100 Instrument Used: 7mm curette Tissue Removed: Fibrin and maceration Amount of bleeding with debridement: Mild Bleeding Controlled with: Compression and gauze Patient tolerated procedure well Assessment/Plan Active Problems MRSA (methicillin resistant staph aureus) culture positive (Acute) Infected wound (Acute) Decubitus ulcer of right ischium, stage 3 (Acute) Spina bifida (Chronic) Chronic osteomyelitis, pelvic region and thigh (Chronic) right sacral area Malnutrition compromising bodily function (Chronic) Assessment: Decubitus ulcer stage III right ischium. Spina bifida. Paraplegia. Hydrocephalus. History of osteomyelitis. Infected ulcer Plan: Debridement done as doumented above, procedure was well tolerated. Continue aquacel to undermining and santyl to ulcer base. Continue offloading. Increased protein intake recommended. Follow up in 1 week with Alondra Menjivar NP. Advised to call with any questions or concerns.
[2018-07-13 09:47] VITALS: BP 113/74; PULSE 88; RESP 16; TEMP 37.4
--- NOTE | 2018-07-13 10:49 | PCM.WC.PN ---
(1) MRSA (methicillin resistant staph aureus) culture positive Status: Acute Current Visit: Yes Code(s): Z22.322 - Carrier or suspected carrier of Methicillin resistant Staphylococcus aureus (2) Decubitus ulcer of right ischium, stage 3 Status: Acute Current Visit: Yes Code(s): L89.313 - Pressure ulcer of right buttock, stage 3 (3) Chronic osteomyelitis, pelvic region and thigh Status: Chronic Current Visit: Yes Code(s): M86.659 - Other chronic osteomyelitis, unspecified thigh Comment: right sacral area (4) Malnutrition compromising bodily function Status: Chronic Current Visit: Yes Code(s): E46 - Unspecified protein-calorie malnutrition (5) Spina bifida Status: Chronic Current Visit: Yes Code(s): Q05.9 - Spina bifida, unspecified (6) Infected decubitus ulcer Status: Acute Current Visit: Yes Qualifiers: Pressure injury stage: stage 3 Qualified Code(s): L89.93 - Pressure ulcer of unspecified site, stage 3; L08.9 - Local infection of the skin and subcutaneous tissue, unspecified Code(s): L89.90 - Pressure ulcer of unspecified site, unspecified stage; L08.9 - Local infection of the skin and subcutaneous tissue, unspecified Type of Wound Date of Service: 07/13/18 Chief Complaint: Right ischium ulcer History of Wound: 21-year-old with past medical history of spina bifida paraplegia hydrocephalus osteomyelitis had been doing rather well until developed kidney stones and was taken to the hospital approximately 2 weeks ago spent in overnighter and developed a decubitus ulcer in the right issue him after receiving Lipsotripsy for his kidneys. Stage 3 ulcer with some slough no odor cultures will be taken. Patient will be started on Tosha moistened Adaptic abdominal dressings tape. Progress of Wound: Today the ulcer looks good it is not worsening the undermining is actually getting tighter to get in to measure. The undermining area is slightly smaller the overall wound bleeds easily and looks good. Still has a lot of maceration around the ulcer. No odor no redness noted - Physical Exam Vital Signs Temp Pulse Resp BP 99.3 F H 88 16 113/74 07/13/18 09:47 07/13/18 09:47 07/13/18 09:47 09/21/18 09:47 General: Oriented x3, Cooperative, Well developed HEENT: Atraumatic, PERRLA Oral: Moist Mucosa Neck: Supple, No JVD Lungs: Clear to auscultation, Normal air movement Cardiovascular: Regular rate, Regular Rhythm Abdomen: Bowel Sounds Present, Soft, Non Tender, No Hepato-splenomegaly Extremities: No clubbing, No edema Skin: Ulcer/ Wound - Decubitus ulcer right ischium Wound Measurements and Assessment WC - Nurse 1 - General Ulcer Measurement Start: 06/29/18 09:54 Freq: Status: Active Protocol: Activity Type Activity Date Activity User E-Sign Co-Sign Detail Recorded Client Recorded Date Recorded By Document 07/13/18 09:47 DL [id number] 07/13/18 10:00 DL 07/13/18 09:47 Wound Center Nurse 1 [Ulcer Assessment] #6 RIGHT ISCHIUM -Current Size (cm) - Length 1.6 -Current Size (cm) - Width 5.3 -Current Size (cm) - Depth 0.2 -Total Square Cm 8.48 -Photo Taken No -Exudate Amt Medium (34-66%) -Exudate Type Serosanguineous -Wound Margin Thickened -Granulation Amt Medium (34-66%) -Granulation Quality [place] -Necrosis Amt Medium (34-66%) -Necrotic Tissue Type Adherent Slough -Structure Exposed N/A -Texture (Ida-wound Skin Appearance) Callus Scarring -Moisture (Ida-wound Skin Appearance Maceration ) -Color (Ida-wound Skin Appearance) Rubor -Temperature (Ida-wound Skin No Abnormality Appearance) (Pt Warm) -Tenderness on Palpation (Ida-wound No Skin Appearance) -Ulcer Cleansing Rinsed/ Irrigated with Saline -Foul Odor after Cleansing No -Anesthetic Used 4% Lidocaine Solution - Nurse 2 - General Ulcer CM Notes Start: 06/29/18 09:54 Freq: Status: Active Protocol: Activity Type Activity Date Activity User E-Sign Co-Sign Detail Recorded Client Recorded Date Recorded By Document 07/13/18 10:10 MW [id number] 07/13/18 10:11 MW 07/13/18 10:10 Wound Center Nurse 2 [Procedure/Treatment] -Time 10:10 -Correct Patient Yes -Correct Side, Site, Position Yes -Correct Procedure Yes -Procedure Performed Yes -Type of Procedure Debridement -Clinical Debridement Subcutaneous -Post Debridement Size (cm) - Length 1.5 -Post Debridement Size (cm) - Width 6.0 -Post Debridement Size (cm) - Depth 0.2 -Total Square Cm 9.00 -Wound/Ulcer Outcome Not Healed -Ulcer Cleansing Rinsed/ Irrigated with Saline -Foul Odor after Cleansing No -Bioengineered Tissue No -Bleeding Controlled with Pressure -Treatment Response Procedure Tolerated Well [See Physician Procedure note for Specifics] Pain Scale: 0-10 Numeric [Pain] -Is Patient Pain Free? Yes Musculoskeletal: No Tenderness to Palpation of Joints or Extremities Lymphatic: No Cervical, Supraclavicular, or Inguinal Adenopathy Neurological: Cranial nerves II-XII grossly intact, Neuro grossly intact Psych/Mental Status: Normal Affect, Appropriate Debridement Note Post-Debridement Measurements/Treatment WC - Nurse 2 - General Ulcer CM Notes Start: 06/29/18 09:54 Freq: Status: Active Protocol: Activity Type Activity Date Activity User E-Sign Co-Sign Detail Recorded Client Recorded Date Recorded By Document 06/29/18 10:21 MW [id number] 06/29/18 10:24 MW Document 07/06/18 10:34 MW [id number] 07/06/18 10:37 MW Document 07/13/18 10:10 MW [id number] 07/13/18 10:11 MW 06/29/18 07/06/18 07/13/18 10:21 10:34 10:10 Wound Center Nurse 2 #6 RIGHT ISCHIUM -Time 10:22 10:34 10:10 -Correct Patient Yes Yes Yes -Correct Side, Site, Position Yes Yes Yes -Correct Procedure Yes Yes Yes -Procedure Performed Yes Yes Yes -Type of Procedure Debridement Debridement Debridement -Clinical Debridement Subcutaneous Subcutaneous Subcutaneous -Post Debridement Size (cm) - Length 1.8 2.0 1.5 -Post Debridement Size (cm) - Width 6.0 6.0 6.0 -Post Debridement Size (cm) - Depth 0.3 0.2 0.2 -Total Square Cm 10.80 12.00 9.00 -Wound/Ulcer Outcome Not Healed Not Healed Not Healed -Ulcer Cleansing Rinsed/ Rinsed/ Rinsed/ Irrigated with Irrigated with Irrigated with Saline Saline Saline -Foul Odor after Cleansing No No No -Bioengineered Tissue No No No -Bleeding Controlled with Pressure Pressure Pressure -Other TUNNEL @1 , 1.8 CM -Treatment Response Procedure Procedure Procedure Tolerated Well Tolerated Well Tolerated Well Pain Scale: 0-10 Numeric Is Patient Pain Free? Yes Yes Yes Wound debrided: Ischium Laterality: Right Type of Debridement: Excisional debridement Anesthesia Used: 5% Lidocaine Gel Depth: Down to and including healthy tissue, in the subcutaneous layer Percentage of wound debrided: 100 Instrument Used: 7mm curette Tissue Removed: Maceration and fibrin Severity: Limited To Skin Breakdown Amount of bleeding with debridement: Moderate Bleeding Controlled with: Compression and gauze Patient tolerated procedure well Assessment/Plan Active Problems MRSA (methicillin resistant staph aureus) culture positive (Acute) Infected decubitus ulcer (Acute) Decubitus ulcer of right ischium, stage 3 (Acute) Spina bifida (Chronic) Chronic osteomyelitis, pelvic region and thigh (Chronic) right sacral area Malnutrition compromising bodily function (Chronic) Assessment: Decubitus ulcer stage III right ischium. Spina bifida. Paraplegia. Hydrocephalus. History of osteomyelitis. Infected ulcer Plan: Debridement done as doumented above, procedure was well tolerated. Continue aquacel to undermining and santyl to ulcer base. Continue offloading. Increased protein intake recommended. Follow up in 1 week with Alondra Menjivar NP. Advised to call with any questions or concerns.
--- NOTE | 2018-07-13 10:53 | PN.PCM_ITS ---
(1) MRSA (methicillin resistant staph aureus) culture positive Status: Acute Current Visit: Yes Code(s): Z22.322 - Carrier or suspected carrier of Methicillin resistant Staphylococcus aureus (2) Decubitus ulcer of right ischium, stage 3 Status: Acute Current Visit: Yes Code(s): L89.313 - Pressure ulcer of right buttock, stage 3 (3) Chronic osteomyelitis, pelvic region and thigh Status: Chronic Current Visit: Yes Code(s): M86.659 - Other chronic osteomyelitis, unspecified thigh Comment: right sacral area (4) Malnutrition compromising bodily function Status: Chronic Current Visit: Yes Code(s): E46 - Unspecified protein- calorie malnutrition (5) Spina bifida Status: Chronic Current Visit: Yes Code(s): Q05.9 - Spina bifida, unspecified (6) Infected decubitus ulcer Status: Acute Current Visit: Yes Qualifiers: Pressure injury stage: stage 3 Qualified Code(s): L89.93 - Pressure ulcer of unspecified site, stage 3; L08.9 - Local infection of the skin and subcutaneous tissue, unspecified Code(s): L89.90 - Pressure ulcer of unspecified site, unspecified stage; L08.9 - Local infection of the skin and subcutaneous tissue, unspecified Type of Wound Date of Service: 07/13/18 Chief Complaint: Right ischium ulcer History of Wound: 21-year-old with past medical history of spina bifida paraplegia hydrocephalus osteomyelitis had been doing rather well until developed kidney stones and was taken to the hospital approximately 2 weeks ago spent in overnighter and developed a decubitus ulcer in the right issue him after receiving Lipsotripsy for his kidneys. Stage 3 ulcer with some slough no odor cultures will be taken. Patient will be started on Tosha moistened Adaptic abdominal dressings tape. Progress of Wound: Today the ulcer looks good it is not worsening the undermining is actually getting tighter to get in to measure. The undermining area is slightly smaller the overall wound bleeds easily and looks good. Still has a lot of maceration around the ulcer. No odor no redness noted - Physical Exam Vital Signs Temp Pulse Resp BP 99.3 F H 88 16 113/74 07/13/18 09:47 07/13/18 09:47 07/13/18 09:47 09/21/18 09:47 General: Oriented x3, Cooperative, Well developed HEENT: Atraumatic, PERRLA Oral: Moist Mucosa Neck: Supple, No JVD Lungs: Clear to auscultation, Normal air movement Cardiovascular: Regular rate, Regular Rhythm Abdomen: Bowel Sounds Present, Soft, Non Tender, No Hepato-splenomegaly Extremities: No clubbing, No edema Skin: Ulcer/ Wound - Decubitus ulcer right ischium Wound Measurements and Assessment WC - Nurse 1 - General Ulcer Measurement Start: 06/29/18 09:54 Freq: Status: Active Protocol: Activity Type Activity Date Activity User E-Sign Co-Sign Detail Recorded Client Recorded Date Recorded By Document 07/13/18 09:47 DL [id number] 07/13/18 10:00 DL 07/13/18 09:47 Wound Center Nurse 1 [Ulcer Assessment] #6 RIGHT ISCHIUM -Current Size (cm) - Length 1.6 -Current Size (cm) - Width 5.3 -Current Size (cm) - Depth 0.2 -Total Square Cm 8.48 -Photo Taken No -Exudate Amt Medium (34-66%) -Exudate Type Serosanguineous -Wound Margin Thickened -Granulation Amt Medium (34-66%) -Granulation Quality [place] -Necrosis Amt Medium (34-66%) -Necrotic Tissue Type Adherent Slough -Structure Exposed N/A -Texture (Ida-wound Skin Appearance) Callus Scarring -Moisture (Ida-wound Skin Appearance Maceration ) -Color (Ida-wound Skin Appearance) Rubor -Temperature (Ida-wound Skin No Abnormality Appearance) (Pt Warm) -Tenderness on Palpation (Ida-wound No Skin Appearance) -Ulcer Cleansing Rinsed/ Irrigated with Saline -Foul Odor after Cleansing No -Anesthetic Used 4% Lidocaine Solution - Nurse 2 - General Ulcer CM Notes Start: 06/29/18 09:54 Freq: Status: Active Protocol: Activity Type Activity Date Activity User E-Sign Co-Sign Detail Recorded Client Recorded Date Recorded By Document 07/13/18 10:10 MW [id number] 07/13/18 10:11 MW 07/13/18 10:10 Wound Center Nurse 2 [Procedure/Treatment] -Time 10:10 -Correct Patient Yes -Correct Side, Site, Position Yes -Correct Procedure Yes -Procedure Performed Yes -Type of Procedure Debridement -Clinical Debridement Subcutaneous -Post Debridement Size (cm) - Length 1.5 -Post Debridement Size (cm) - Width 6.0 -Post Debridement Size (cm) - Depth 0.2 -Total Square Cm 9.00 -Wound/Ulcer Outcome Not Healed -Ulcer Cleansing Rinsed/ Irrigated with Saline -Foul Odor after Cleansing No -Bioengineered Tissue No -Bleeding Controlled with Pressure -Treatment Response Procedure Tolerated Well [See Physician Procedure note for Specifics] Pain Scale: 0-10 Numeric [Pain] -Is Patient Pain Free? Yes Musculoskeletal: No Tenderness to Palpation of Joints or Extremities Lymphatic: No Cervical, Supraclavicular, or Inguinal Adenopathy Neurological: Cranial nerves II-XII grossly intact, Neuro grossly intact Psych/Mental Status: Normal Affect, Appropriate Debridement Note Post-Debridement Measurements/Treatment WC - Nurse 2 - General Ulcer CM Notes Start: 06/29/18 09:54 Freq: Status: Active Protocol: Activity Type Activity Date Activity User E-Sign Co-Sign Detail Recorded Client Recorded Date Recorded By Document 06/29/18 10:21 MW [id number] 06/29/18 10:24 MW Document 07/06/18 10:34 MW [id number] 07/06/18 10:37 MW Document 07/13/18 10:10 MW [id number] 07/13/18 10:11 MW 06/29/18 07/06/18 07/13/18 10:21 10:34 10:10 Wound Center Nurse 2 #6 RIGHT ISCHIUM -Time 10:22 10:34 10:10 -Correct Patient Yes Yes Yes -Correct Side, Site, Position Yes Yes Yes -Correct Procedure Yes Yes Yes -Procedure Performed Yes Yes Yes -Type of Procedure Debridement Debridement Debridement -Clinical Debridement Subcutaneous Subcutaneous Subcutaneous -Post Debridement Size (cm) - Length 1.8 2.0 1.5 -Post Debridement Size (cm) - Width 6.0 6.0 6.0 -Post Debridement Size (cm) - Depth 0.3 0.2 0.2 -Total Square Cm 10.80 12.00 9.00 -Wound/Ulcer Outcome Not Healed Not Healed Not Healed -Ulcer Cleansing Rinsed/ Rinsed/ Rinsed/ Irrigated with Irrigated with Irrigated with Saline Saline Saline -Foul Odor after Cleansing No No No -Bioengineered Tissue No No No -Bleeding Controlled with Pressure Pressure Pressure -Other TUNNEL @1 , 1.8 CM -Treatment Response Procedure Procedure Procedure Tolerated Well Tolerated Well Tolerated Well Pain Scale: 0-10 Numeric Is Patient Pain Free? Yes Yes Yes Wound debrided: Ischium Laterality: Right Type of Debridement: Excisional debridement Anesthesia Used: 5% Lidocaine Gel Depth: Down to and including healthy tissue, in the subcutaneous layer Percentage of wound debrided: 100 Instrument Used: 7mm curette Tissue Removed: Maceration and fibrin Severity: Limited To Skin Breakdown Amount of bleeding with debridement: Moderate Bleeding Controlled with: Compression and gauze Patient tolerated procedure well Assessment/Plan Active Problems MRSA (methicillin resistant staph aureus) culture positive (Acute) Infected decubitus ulcer (Acute) Decubitus ulcer of right ischium, stage 3 (Acute) Spina bifida (Chronic) Chronic osteomyelitis, pelvic region and thigh (Chronic) right sacral area Malnutrition compromising bodily function (Chronic) Assessment: Decubitus ulcer stage III right ischium. Spina bifida. Paraplegia. Hydrocephalus. History of osteomyelitis. Infected ulcer Plan: Debridement done as doumented above, procedure was well tolerated. Continue aquacel to undermining and santyl to ulcer base. Continue offloading. Increased protein intake recommended. Follow up in 1 week with Alondra Menjivar NP. Advised to call with any questions or concerns.
[2018-07-20 09:45] VITALS: BP 114/67; PULSE 88; RESP 16; TEMP 36.6
--- NOTE | 2018-07-20 10:05 | PN.PCM_ITS ---
(1) MRSA (methicillin resistant staph aureus) culture positive Status: Acute Current Visit: Yes Code(s): Z22.322 - Carrier or suspected carrier of Methicillin resistant Staphylococcus aureus (2) Decubitus ulcer of right ischium, stage 3 Status: Acute Current Visit: Yes Code(s): L89.313 - Pressure ulcer of right buttock, stage 3 (3) Chronic osteomyelitis, pelvic region and thigh Status: Chronic Current Visit: Yes Code(s): M86.659 - Other chronic osteomyelitis, unspecified thigh Comment: right sacral area (4) Malnutrition compromising bodily function Status: Chronic Current Visit: Yes Code(s): E46 - Unspecified protein- calorie malnutrition (5) Spina bifida Status: Chronic Current Visit: Yes Code(s): Q05.9 - Spina bifida, unspecified (6) Infected decubitus ulcer Status: Acute Current Visit: Yes Qualifiers: Pressure injury stage: stage 3 Qualified Code(s): L89.93 - Pressure ulcer of unspecified site, stage 3; L08.9 - Local infection of the skin and subcutaneous tissue, unspecified Code(s): L89.90 - Pressure ulcer of unspecified site, unspecified stage; L08.9 - Local infection of the skin and subcutaneous tissue, unspecified Type of Wound Chief Complaint: Right ischium ulcer History of Wound: 21-year-old with past medical history of spina bifida paraplegia hydrocephalus osteomyelitis had been doing rather well until developed kidney stones and was taken to the hospital approximately 2 weeks ago spent in overnighter and developed a decubitus ulcer in the right issue him after receiving Lipsotripsy for his kidneys. Stage 3 ulcer with some slough no odor cultures will be taken. Patient will be started on Tosha moistened Adaptic abdominal dressings tape. Progress of Wound: Today the ulcer looks good it is not worsening the undermining runs from 9-3 and is about 0.9. The overall wound bleeds easily and looks good. Still has a lot of maceration around the ulcer. No odor no redness noted - Physical Exam Vital Signs Temp Pulse Resp BP 97.8 F 88 16 114/67 07/20/18 09:45 07/20/18 09:45 07/20/18 09:45 07/20/18 09:45 General: Oriented x3, Cooperative, Well developed HEENT: Atraumatic, PERRLA Oral: Moist Mucosa Neck: Supple, No JVD Lungs: Clear to auscultation, Normal air movement Cardiovascular: Regular rate, Regular Rhythm Abdomen: Bowel Sounds Present, Soft, Non Tender, No Hepato-splenomegaly Extremities: No clubbing, No edema Skin: Ulcer/ Wound - Ulcer right ischium Wound Measurements and Assessment WC - Nurse 1 - General Ulcer Measurement Start: 06/29/18 09:54 Freq: Status: Active Protocol: Activity Type Activity Date Activity User E-Sign Co-Sign Detail Recorded Client Recorded Date Recorded By Document 07/20/18 09:45 BMF [id number] 07/20/18 09:48 BMF 07/20/18 09:45 Wound Center Nurse 1 [Ulcer Assessment] #6 RIGHT ISCHIUM -Combined with other wound No -Current Size (cm) - Length 2 -Current Size (cm) - Width 7 -Current Size (cm) - Depth 0.4 -Total Square Cm 14 -Date of Last Picture (Recall this 07/20/18 field) -Photo Taken Yes -Epithelialization None Present -Tunneling No -Undermining/Tunneling No -Circular Undermining No -Exudate Amt Medium (34-66%) -Exudate Type Serosanguineous -Wound Margin Distinct, Outline Attached -Granulation Amt Medium (34-66%) -Granulation Quality [place] -Slough/Fibrin Yes -Necrosis Amt Medium (34-66%) -Necrotic Tissue Type Adherent Slough -Texture (Ida-wound Skin Appearance) Scarring -Moisture (Ida-wound Skin Appearance Maceration ) Dry/Scaly -Color (Ida-wound Skin Appearance) Erythema Palor -Temperature (Ida-wound Skin No Abnormality Appearance) (Pt Warm) -Tenderness on Palpation (Ida-wound No Skin Appearance) -Ulcer Cleansing Rinsed/ Irrigated with Saline -Foul Odor after Cleansing No -Anesthetic Used 4% Lidocaine Solution WC - Nurse 2 - General Ulcer CM Notes Start: 06/29/18 09:54 Freq: Status: Active Protocol: Activity Type Activity Date Activity User E-Sign Co-Sign Detail Recorded Client Recorded Date Recorded By Document 07/20/18 09:53 MW [id number] 07/20/18 09:56 MW 07/20/18 09:53 Wound Center Nurse 2 [Procedure/Treatment] -Time 09:53 -Correct Patient Yes -Correct Side, Site, Position Yes -Correct Procedure Yes -Procedure Performed Yes -Type of Procedure Debridement -Clinical Debridement Subcutaneous -Post Debridement Size (cm) - Length 1.7 -Post Debridement Size (cm) - Width 5.5 -Post Debridement Size (cm) - Depth 0.2 -Total Square Cm 9.35 -Wound/Ulcer Outcome Not Healed -Ulcer Cleansing Rinsed/ Irrigated with Saline -Foul Odor after Cleansing No -Bioengineered Tissue No -Bleeding Controlled with Pressure -Other UNDERMINING 9-3 - 0.9CM -Treatment Response Procedure Tolerated Well [See Physician Procedure note for Specifics] Pain Scale: 0-10 Numeric [Pain] -Is Patient Pain Free? Yes Musculoskeletal: No Tenderness to Palpation of Joints or Extremities Lymphatic: No Cervical, Supraclavicular, or Inguinal Adenopathy Neurological: Cranial nerves II-XII grossly intact, Neuro grossly intact Psych/Mental Status: Normal Affect, Appropriate Debridement Note Post-Debridement Measurements/Treatment WC - Nurse 2 - General Ulcer CM Notes Start: 06/29/18 09:54 Freq: Status: Active Protocol: Activity Type Activity Date Activity User E-Sign Co-Sign Detail Recorded Client Recorded Date Recorded By Document 06/29/18 10:21 MW [id number] 06/29/18 10:24 MW Document 07/06/18 10:34 MW [id number] 07/06/18 10:37 MW Document 07/13/18 10:10 MW [id number] 07/13/18 10:11 MW Document 07/20/18 09:53 MW [id number] 07/20/18 09:56 MW 06/29/18 07/06/18 07/13/18 10:21 10:34 10:10 Wound Center Nurse 2 #6 RIGHT ISCHIUM -Time 10:22 10:34 10:10 -Correct Patient Yes Yes Yes -Correct Side, Site, Position Yes Yes Yes -Correct Procedure Yes Yes Yes -Procedure Performed Yes Yes Yes -Type of Procedure Debridement Debridement Debridement -Clinical Debridement Subcutaneous Subcutaneous Subcutaneous -Post Debridement Size (cm) - Length 1.8 2.0 1.5 -Post Debridement Size (cm) - Width 6.0 6.0 6.0 -Post Debridement Size (cm) - Depth 0.3 0.2 0.2 -Total Square Cm 10.80 12.00 9.00 -Wound/Ulcer Outcome Not Healed Not Healed Not Healed -Ulcer Cleansing Rinsed/ Rinsed/ Rinsed/ Irrigated with Irrigated with Irrigated with Saline Saline Saline -Foul Odor after Cleansing No No No -Bioengineered Tissue No No No -Bleeding Controlled with Pressure Pressure Pressure -Other TUNNEL @1 , 1.8 CM -Treatment Response Procedure Procedure Procedure Tolerated Well Tolerated Well Tolerated Well Pain Scale: 0-10 Numeric Is Patient Pain Free? Yes Yes Yes 07/20/18 09:53 Wound Center Nurse 2 #6 RIGHT ISCHIUM -Time 09:53 -Correct Patient Yes -Correct Side, Site, Position Yes -Correct Procedure Yes -Procedure Performed Yes -Type of Procedure Debridement -Clinical Debridement Subcutaneous -Post Debridement Size (cm) - Length 1.7 -Post Debridement Size (cm) - Width 5.5 -Post Debridement Size (cm) - Depth 0.2 -Total Square Cm 9.35 -Wound/Ulcer Outcome Not Healed -Ulcer Cleansing Rinsed/ Irrigated with Saline -Foul Odor after Cleansing No -Bioengineered Tissue No -Bleeding Controlled with Pressure -Other UNDERMINING 9-3 - 0.9CM -Treatment Response Procedure Tolerated Well Pain Scale: 0-10 Numeric Is Patient Pain Free? Yes Wound debrided: Ischium Laterality: Right Type of Debridement: Excisional debridement Anesthesia Used: 5% Lidocaine Gel Depth: Down to and including healthy tissue, in the subcutaneous layer Percentage of wound debrided: 100 Instrument Used: 7mm curette Tissue Removed: Fibrin Severity: Limited To Skin Breakdown Amount of bleeding with debridement: Mild Bleeding Controlled with: Compression and gauze Patient tolerated procedure well Assessment/Plan Active Problems MRSA (methicillin resistant staph aureus) culture positive (Acute) Infected decubitus ulcer (Acute) Decubitus ulcer of right ischium, stage 3 (Acute) Spina bifida (Chronic) Chronic osteomyelitis, pelvic region and thigh (Chronic) right sacral area Malnutrition compromising bodily function (Chronic) Assessment: Decubitus ulcer stage III right ischium. Spina bifida. Paraplegia. Hydrocephalus. History of osteomyelitis. Infected ulcer Plan: Debridement done as doumented above, procedure was well tolerated. Continue aquacel to undermining and santyl to ulcer base. Continue offloading. Increased protein intake recommended. Follow up in 1 week with Alondra Menjivar NP. Advised to call with any questions or concerns.
== END 2018-07-22 23:59 ==
LOC: WC 09:30
PROVIDERS: Family Provider Family Medicine; PCP Family Medicine; Visit Provider Nurse Practitioner
DX: L89.213 Pressure ulcer of right hip, stage 3 (principal); Z22.322 Carrier or suspected carrier of Methicillin resistant Staphylococcus aureus; G82.20 Paraplegia, unspecified; Q05.4 Unspecified spina bifida with hydrocephalus; M46.28 Osteomyelitis of vertebra, sacral and sacrococcygeal region
CPT/HCPCS: 11042

== ENCOUNTER 2018-08-22 09:30 | Outpatient (RCR) | payer OTHER, MEDICAID, SELFPAY ==
[2018-07-23 00:51] VITALS: BP 114/67; PULSE 88; RESP 16; TEMP 36.6
[2018-07-27 10:22] VITALS: BP 108/59; PULSE 86; RESP 20; TEMP 36.6
--- NOTE | 2018-07-27 12:36 | PN.PCM_ITS ---
(1) Decubitus ulcer of right ischium, stage 3 Status: Acute Current Visit: Yes Code(s): L89.313 - Pressure ulcer of right buttock, stage 3 (2) Infected decubitus ulcer Status: Acute Current Visit: Yes Qualifiers: Code(s): L89.90 - Pressure ulcer of unspecified site, unspecified stage; L08.9 - Local infection of the skin and subcutaneous tissue, unspecified (3) MRSA (methicillin resistant staph aureus) culture positive Status: Acute Current Visit: Yes Code(s): Z22.322 - Carrier or suspected carrier of Methicillin resistant Staphylococcus aureus (4) Chronic osteomyelitis, pelvic region and thigh Status: Chronic Current Visit: Yes Code(s): M86.659 - Other chronic osteomyelitis, unspecified thigh Comment: right sacral area (5) Decubitus ulcer of right ischium, stage 2 Status: Chronic Current Visit: Yes Code(s): L89.312 - Pressure ulcer of right buttock, stage 2 (6) Malnutrition compromising bodily function Status: Chronic Current Visit: Yes Code(s): E46 - Unspecified protein- calorie malnutrition (7) Spina bifida Status: Chronic Current Visit: Yes Code(s): Q05.9 - Spina bifida, unspecified Type of Wound Chief Complaint: Right ischium ulcer History of Wound: 21-year-old with past medical history of spina bifida paraplegia hydrocephalus osteomyelitis had been doing rather well until developed kidney stones and was taken to the hospital approximately 2 weeks ago spent in overnighter and developed a decubitus ulcer in the right issue him after receiving Lipsotripsy for his kidneys. Stage 3 ulcer with some slough no odor cultures will be taken. Patient will be started on Tosha moistened Adaptic abdominal dressings tape. Progress of Wound: Today the ulcer is larger and mother was concerned that it is infected again we will reculture I noted a new tunnel at 5:00 and the other undermining from 9-3 is down from 12-3 with less than half centimeter. We will hold off on the Santyl for now it seems to be macerating the edges too much and go back to dry Aquacel. Patient is going to be out of town next weeks will be 2 weeks before he is seen I will be out of the following weeks he will be seen by another physician. We will contact them with the cultures. - Physical Exam Vital Signs Temp Pulse Resp BP 98 F 86 20 H 108/59 L 07/27/18 10:22 07/27/18 10:22 07/27/18 10:22 07/27/18 10:22 General: Oriented x3, Cooperative, Well developed HEENT: Atraumatic, PERRLA Oral: Moist Mucosa Neck: Supple, No JVD Lungs: Clear to auscultation, Normal air movement Cardiovascular: Regular rate, Regular Rhythm Abdomen: Bowel Sounds Present, Soft, Non Tender, No Hepato-splenomegaly Extremities: No clubbing, No edema Skin: Ulcer/ Wound - Right ischium Wound Measurements and Assessment WC - Nurse 1 - General Ulcer Measurement Start: 07/27/18 10:21 Freq: Status: Active Protocol: Activity Type Activity Date Activity User E-Sign Co-Sign Detail Recorded Client Recorded Date Recorded By Document 07/27/18 10:22 DL [id number] 07/27/18 10:35 DL 07/27/18 10:22 Wound Center Nurse 1 [Ulcer Assessment] #6 RIGHT ISCHIUM -Current Size (cm) - Length 3.5 -Current Size (cm) - Width 5.6 -Current Size (cm) - Depth 0.3 -Total Square Cm 19.60 -Photo Taken No -Undermining/Tunneling Yes -Undermining/Tunneling Starts (O' 7 clock) -Undermining/Tunneling Ends (O'clock) 10 -Maximum Distance (cm) 1.0 -Exudate Amt Medium (34-66%) -Exudate Type Serosanguineous -Wound Margin Thickened & Rolled Under -Granulation Amt Small (1-33%) -Granulation Quality [place] -Necrosis Amt Large (67-100%) -Necrotic Tissue Type Adherent Slough -Structure Exposed N/A -Texture (Ida-wound Skin Appearance) Scarring -Moisture (Ida-wound Skin Appearance Maceration ) -Color (Ida-wound Skin Appearance) Rubor -Temperature (Ida-wound Skin No Abnormality Appearance) (Pt Warm) -Ulcer Cleansing Wound Cleanser -Foul Odor after Cleansing No -Anesthetic Used 4% Lidocaine Solution WC - Nurse 2 - General Ulcer CM Notes Start: 07/27/18 10:21 Freq: Status: Active Protocol: Activity Type Activity Date Activity User E-Sign Co-Sign Detail Recorded Client Recorded Date Recorded By Document 07/27/18 11:04 MW [id number] 07/27/18 11:10 MW 07/27/18 11:04 Wound Center Nurse 2 [Procedure/Treatment] -Time 11:06 -Correct Patient Yes -Correct Side, Site, Position Yes -Correct Procedure Yes -Procedure Performed Yes -Type of Procedure Debridement -Clinical Debridement Subcutaneous -Post Debridement Size (cm) - Length 3.5 -Post Debridement Size (cm) - Width 5.8 -Post Debridement Size (cm) - Depth 0.2 -Total Square Cm 20.30 -Wound/Ulcer Outcome Not Healed -Ulcer Cleansing Rinsed/ Irrigated with Saline -Foul Odor after Cleansing No -Bioengineered Tissue No -Bleeding Controlled with Pressure -Other tunnel @ 5 1. 3cm, undermining 12- 3 , 0.5 -Treatment Response Procedure Tolerated Well [See Physician Procedure note for Specifics] Musculoskeletal: No Tenderness to Palpation of Joints or Extremities Lymphatic: No Cervical, Supraclavicular, or Inguinal Adenopathy Neurological: Cranial nerves II-XII grossly intact, Neuro grossly intact Psych/Mental Status: Normal Affect, Appropriate Debridement Note Post-Debridement Measurements/Treatment WC - Nurse 2 - General Ulcer CM Notes Start: 07/27/18 10:21 Freq: Status: Active Protocol: Activity Type Activity Date Activity User E-Sign Co-Sign Detail Recorded Client Recorded Date Recorded By Document 07/27/18 11:04 MW [id number] 07/27/18 11:10 MW 07/27/18 11:04 Wound Center Nurse 2 #6 RIGHT ISCHIUM -Time 11:06 -Correct Patient Yes -Correct Side, Site, Position Yes -Correct Procedure Yes -Procedure Performed Yes -Type of Procedure Debridement -Clinical Debridement Subcutaneous -Post Debridement Size (cm) - Length 3.5 -Post Debridement Size (cm) - Width 5.8 -Post Debridement Size (cm) - Depth 0.2 -Total Square Cm 20.30 -Wound/Ulcer Outcome Not Healed -Ulcer Cleansing Rinsed/ Irrigated with Saline -Foul Odor after Cleansing No -Bioengineered Tissue No -Bleeding Controlled with Pressure -Other tunnel @ 5 1. 3cm, undermining 12- 3 , 0.5 -Treatment Response Procedure Tolerated Well Wound debrided: Right ischium Type of Debridement: Excisional debridement Anesthesia Used: 5% Lidocaine Gel Depth: Down to and including healthy tissue, in the subcutaneous layer Percentage of wound debrided: 100 Instrument Used: 7mm curette Tissue Removed: Fibrin devitalized tissue macerated tissue Severity: Limited To Skin Breakdown Amount of bleeding with debridement: Moderate Bleeding Controlled with: Compression and gauze Patient tolerated procedure well Assessment/Plan Active Problems MRSA (methicillin resistant staph aureus) culture positive (Acute) Infected decubitus ulcer (Acute) Decubitus ulcer of right ischium, stage 3 (Acute) Decubitus ulcer of right ischium, stage 2 (Chronic) Spina bifida (Chronic) Chronic osteomyelitis, pelvic region and thigh (Chronic) right sacral area Malnutrition compromising bodily function (Chronic) Assessment: Decubitus ulcer stage III right ischium. Spina bifida. Paraplegia. Hydrocephalus. History of osteomyelitis. Infected ulcer Plan: Debridement done as doumented above, procedure was well tolerated. Continue aquacel hold on Santyl for now. Continue offloading. Increased protein intake recommended. Follow up in 2 week. Advised to call with any questions or concerns.
[2018-08-07 10:54] VITALS: BP 128/64; PULSE 85; RESP 18; TEMP 37.5
--- NOTE | 2018-08-07 12:10 | PCM.WC.HP ---
(1) Decubitus ulcer of right ischium, stage 3 Status: Chronic Current Visit: Yes Code(s): L89.313 - Pressure ulcer of right buttock, stage 3 (2) Malnutrition compromising bodily function Status: Chronic Current Visit: Yes Code(s): E46 - Unspecified protein-calorie malnutrition (3) Spina bifida Status: Chronic Current Visit: Yes Code(s): Q05.9 - Spina bifida, unspecified (4) History of osteomyelitis Status: Chronic Current Visit: No Code(s): Z87.39 - Personal history of other diseases of the musculoskeletal system and connective tissue Comment: right sacral area History of Present Illness Chief Complaint: Right ischium ulcer History of Wound: 23-year-old with past medical history of spina bifida, paraplegia, and Stage 3 right ischial pressure ulceration. The patient has been long-term at our facility, with care provided by other providers. Patient is seen today for the purpose of interval evaluation and debridement of his right ischial pressure ulceration. 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 History of osteomyelitis (Chronic) right sacral area Decubitus ulcer of right ischium, stage 2 (Chronic) Spina bifida (Chronic) Chronic osteomyelitis, pelvic region and thigh (Chronic) right sacral area Malnutrition compromising bodily function (Chronic) Allergies/Adverse Reactions: Allergies latex Allergy (Verified 07/22/16 12:53) Unknown unsure as charted levofloxacin [Levofloxacin] Allergy (Verified 07/22/16 12:53) Rash sulfamethoxazole [From Bactrim] Allergy (Verified 07/22/16 12:53) Rash trimethoprim [From Bactrim] Allergy (Verified 07/22/16 12:53) Rash Home Medications: Ambulatory Orders Medication Instructions Recorded Polyethylene Glycol 3350 [Miralax] 17 gm PO DAILY #30 05/06/14 Ascorbic Acid [Vitamin C] 1,000 mg PO DAILY 07/22/16 Cholecalciferol (VIT D3) [Vitamin 1,000 unit PO DAILY 07/22/16 D] Multivitamins,Therapeutic 1 tablet PO DAILY 07/22/16 [Multivitamin] Smoking Status: Never smoker - Physical Exam Vital Signs Temp Pulse Resp BP 99.5 F H 85 18 128/64 H 08/07/18 10:54 08/07/18 10:54 08/07/18 10:54 08/07/18 10:54 General: Alert, Oriented x3, Cooperative, No apparent distress HEENT: Atraumatic, PERRLA, EOMI, Normocephalic Oral: Moist Mucosa Neck: No JVD Lungs: Normal air movement Extremities: No clubbing, No cyanosis, No edema Skin: No rashes, - - A right ischial pressure ulceration is noted. There is no associated erythema or cellulitis. Dimensions are documented elsewhere. There is a moderate amount of bioburden. Wound Measurements and Assessment WC - Nurse 1 - General Ulcer Measurement Start: 07/27/18 10:21 Freq: Status: Active Protocol: Activity Type Activity Date Activity User E-Sign Co-Sign Detail Recorded Client Recorded Date Recorded By Document 08/07/18 10:54 HARSHAD [id number] 08/07/18 11:06 HARSHAD 08/07/18 10:54 Wound Center Nurse 1 [Ulcer Assessment] #6 RIGHT ISCHIUM -Combined with other wound No -Current Size (cm) - Length 2.8 -Current Size (cm) - Width 6 -Current Size (cm) - Depth 0.2 -Total Square Cm 16.8 -Photo Taken No -Undermining/Tunneling Starts (O' 7 clock) -Undermining/Tunneling Ends (O'clock) 21 -Maximum Distance (cm) 0.9 -Exudate Amt Medium (34-66%) -Exudate Type Serosanguineous -Wound Margin Thickened -Granulation Amt Medium (34-66%) -Granulation Quality [place] -Necrosis Amt Medium (34-66%) -Necrotic Tissue Type Adherent Slough -Structure Exposed N/A -Texture (Ida-wound Skin Appearance) Excoriation Scarring -Moisture (Ida-wound Skin Appearance No Abnormality ) -Color (Ida-wound Skin Appearance) Rubor -Temperature (Ida-wound Skin No Abnormality Appearance) (Pt Warm) -Ulcer Cleansing Rinsed/ Irrigated with Saline -Foul Odor after Cleansing No -Anesthetic Used 4% Lidocaine Solution WC - Nurse 2 - General Ulcer CM Notes Start: 07/27/18 10:21 Freq: Status: Active Protocol: Activity Type Activity Date Activity User E-Sign Co-Sign Detail Recorded Client Recorded Date Recorded By Document 08/07/18 11:49 [id number] 08/07/18 12:03 08/07/18 11:49 Wound Center Nurse 2 [Procedure/Treatment] -Time 12:00 -Correct Patient Yes -Correct Side, Site, Position Yes -Correct Procedure Yes -Procedure Performed Yes -Type of Procedure Debridement -Clinical Debridement Subcutaneous -Post Debridement Size (cm) - Length 7.0 -Post Debridement Size (cm) - Width 2.8 -Post Debridement Size (cm) - Depth 0.6 -Total Square Cm 19.60 -Wound/Ulcer Outcome Not Healed -Ulcer Cleansing Rinsed/ Irrigated with Saline -Foul Odor after Cleansing No -Bioengineered Tissue No -Topical Lidocaine (%) 4 -Lidocaine (ml) 5 -Bleeding Controlled with NA -Treatment Response Procedure Tolerated Well [See Physician Procedure note for Specifics] Pain Scale: 0-10 Numeric [Pain] -Is Patient Pain Free? Yes Musculoskeletal: Muscle Wasting - Lower extremities Neurological: Cranial nerves II-XII grossly intact Psych/Mental Status: Normal Affect, Appropriate, Alert and oriented to time, place, person, mood and affect Debridement Note Post-Debridement Measurements/Treatment WC - Nurse 2 - General Ulcer CM Notes Start: 07/27/18 10:21 Freq: Status: Active Protocol: Activity Type Activity Date Activity User E-Sign Co-Sign Detail Recorded Client Recorded Date Recorded By Document 07/27/18 11:04 [id number] 07/27/18 11:10 Document 08/07/18 11:49 [id number] 08/07/18 12:03 07/27/18 08/07/18 11:04 11:49 Wound Center Nurse 2 #6 RIGHT ISCHIUM -Time 11:06 12:00 -Correct Patient Yes Yes -Correct Side, Site, Position Yes Yes -Correct Procedure Yes Yes -Procedure Performed Yes Yes -Type of Procedure Debridement Debridement -Clinical Debridement Subcutaneous Subcutaneous -Post Debridement Size (cm) - Length 3.5 7.0 -Post Debridement Size (cm) - Width 5.8 2.8 -Post Debridement Size (cm) - Depth 0.2 0.6 -Total Square Cm 20.30 19.60 -Wound/Ulcer Outcome Not Healed Not Healed -Ulcer Cleansing Rinsed/ Rinsed/ Irrigated with Irrigated with Saline Saline -Foul Odor after Cleansing No No -Bioengineered Tissue No No -Topical Lidocaine (%) 4 -Lidocaine (ml) 5 -Bleeding Controlled with Pressure NA -Other tunnel @ 5 1. 3cm, undermining 12- 3 , 0.5 -Treatment Response Procedure Procedure Tolerated Well Tolerated Well Pain Scale: 0-10 Numeric Is Patient Pain Free? Yes Laterality: Right - Ischial pressure ulcer Type of Debridement: Excisional debridement Anesthesia Used: 4% Lidocaine Solution Depth: Down to and including healthy tissue, in the subcutaneous layer Percentage of wound debrided: 100 Instrument Used: 7mm curette Severity: Fat Layer Exposed Amount of bleeding with debridement: Mild Bleeding Controlled with: Compression and gauze Patient tolerated procedure well Assessment/Plan Active Problems MRSA (methicillin resistant staph aureus) culture positive (Acute) Infected decubitus ulcer (Acute) Decubitus ulcer of right ischium, stage 3 (Chronic) Decubitus ulcer of right ischium, stage 2 (Chronic) Spina bifida (Chronic) Chronic osteomyelitis, pelvic region and thigh (Chronic) right sacral area Malnutrition compromising bodily function (Chronic) Assessment: Decubitus ulcer stage III right ischium. Spina bifida. Paraplegia. Hydrocephalus. History of osteomyelitis. Infected ulcer Plan: Debridement done as doumented above, procedure was well tolerated. Continue Aquacel AG. Continue offloading. Increased protein intake recommended. Follow up in 1-2 weeks. Advised to call with any questions or concerns.
--- NOTE | 2018-08-07 12:14 | HP.PCM_ITS ---
(1) Decubitus ulcer of right ischium, stage 3 Status: Chronic Current Visit: Yes Code(s): L89.313 - Pressure ulcer of right buttock, stage 3 (2) Malnutrition compromising bodily function Status: Chronic Current Visit: Yes Code(s): E46 - Unspecified protein- calorie malnutrition (3) Spina bifida Status: Chronic Current Visit: Yes Code(s): Q05.9 - Spina bifida, unspecified (4) History of osteomyelitis Status: Chronic Current Visit: No Code(s): Z87.39 - Personal history of other diseases of the musculoskeletal system and connective tissue Comment: right sacral area History of Present Illness Chief Complaint: Right ischium ulcer History of Wound: 23-year-old with past medical history of spina bifida, paraple hang, and Stage 3 right ischial pressure ulceration. The patient has been long- term at our facility, with care provided by other providers. Patient is seen today for the purpose of interval evaluation and debridement of his right ischial pressure ulceration. 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 History of osteomyelitis (Chronic) right sacral area Decubitus ulcer of right ischium, stage 2 (Chronic) Spina bifida (Chronic) Chronic osteomyelitis, pelvic region and thigh (Chronic) right sacral area Malnutrition compromising bodily function (Chronic) Allergies/Adverse Reactions: Allergies latex Allergy (Verified 07/22/16 12:53) Unknown unsure as charted levofloxacin [Levofloxacin] Allergy (Verified 07/22/16 12:53) Rash sulfamethoxazole [From Bactrim] Allergy (Verified 07/22/16 12:53) Rash trimethoprim [From Bactrim] Allergy (Verified 07/22/16 12:53) Rash Home Medications: Ambulatory Orders Medication Instructions Recorded Polyethylene Glycol 3350 [Miralax] 17 gm PO DAILY #30 05/06/14 Ascorbic Acid [Vitamin C] 1,000 mg PO DAILY 07/22/16 Cholecalciferol (VIT D3) [Vitamin 1,000 unit PO DAILY 07/22/16 D] Multivitamins,Therapeutic 1 tablet PO DAILY 07/22/16 [Multivitamin] Smoking Status: Never smoker - Physical Exam Vital Signs Temp Pulse Resp BP 99.5 F H 85 18 128/64 H 10/16/18 10:54 08/07/18 10:54 08/07/18 10:54 08/07/18 10:54 General: Alert, Oriented x3, Cooperative, No apparent distress HEENT: Atraumatic, PERRLA, EOMI, Normocephalic Oral: Moist Mucosa Neck: No JVD Lungs: Normal air movement Extremities: No clubbing, No cyanosis, No edema Skin: No rashes, - - A right ischial pressure ulceration is noted. There is no associated erythema or cellulitis. Dimensions are documented elsewhere. There is a moderate amount of bioburden. Wound Measurements and Assessment - Nurse 1 - General Ulcer Measurement Start: 07/27/18 10:21 Freq: Status: Active Protocol: Activity Type Activity Date Activity User E-Sign Co-Sign Detail Recorded Client Recorded Date Recorded By Document 08/07/18 10:54 HARSHAD [id number] 08/07/18 11:06 08/07/18 10:54 Wound Center Nurse 1 [Ulcer Assessment] #6 RIGHT ISCHIUM -Combined with other wound No -Current Size (cm) - Length 2.8 -Current Size (cm) - Width 6 -Current Size (cm) - Depth 0.2 -Total Square Cm 16.8 -Photo Taken No -Undermining/Tunneling Starts (O' 7 clock) -Undermining/Tunneling Ends (O'clock) 21 -Maximum Distance (cm) 0.9 -Exudate Amt Medium (34-66%) -Exudate Type Serosanguineous -Wound Margin Thickened -Granulation Amt Medium (34-66%) -Granulation Quality [place] -Necrosis Amt Medium (34-66%) -Necrotic Tissue Type Adherent Slough -Structure Exposed N/A -Texture (Ida-wound Skin Appearance) Excoriation Scarring -Moisture (Ida-wound Skin Appearance No Abnormality ) -Color (Ida-wound Skin Appearance) Rubor -Temperature (Ida-wound Skin No Abnormality Appearance) (Pt Warm) -Ulcer Cleansing Rinsed/ Irrigated with Saline -Foul Odor after Cleansing No -Anesthetic Used 4% Lidocaine Solution - Nurse 2 - General Ulcer CM Notes Start: 07/27/18 10:21 Freq: Status: Active Protocol: Activity Type Activity Date Activity User E-Sign Co-Sign Detail Recorded Client Recorded Date Recorded By Document 08/07/18 11:49 [id number] 08/07/18 12:03 08/07/18 11:49 Wound Center Nurse 2 [Procedure/Treatment] -Time 12:00 -Correct Patient Yes -Correct Side, Site, Position Yes -Correct Procedure Yes -Procedure Performed Yes -Type of Procedure Debridement -Clinical Debridement Subcutaneous -Post Debridement Size (cm) - Length 7.0 -Post Debridement Size (cm) - Width 2.8 -Post Debridement Size (cm) - Depth 0.6 -Total Square Cm 19.60 -Wound/Ulcer Outcome Not Healed -Ulcer Cleansing Rinsed/ Irrigated with Saline -Foul Odor after Cleansing No -Bioengineered Tissue No -Topical Lidocaine (%) 4 -Lidocaine (ml) 5 -Bleeding Controlled with NA -Treatment Response Procedure Tolerated Well [See Physician Procedure note for Specifics] Pain Scale: 0-10 Numeric [Pain] -Is Patient Pain Free? Yes Musculoskeletal: Muscle Wasting - Lower extremities Neurological: Cranial nerves II-XII grossly intact Psych/Mental Status: Normal Affect, Appropriate, Alert and oriented to time, place, person, mood and affect Debridement Note Post-Debridement Measurements/Treatment WC - Nurse 2 - General Ulcer CM Notes Start: 07/27/18 10:21 Freq: Status: Active Protocol: Activity Type Activity Date Activity User E-Sign Co-Sign Detail Recorded Client Recorded Date Recorded By Document 07/27/18 11:04 [id number] 07/27/18 11:10 Document 08/07/18 11:49 [id number] 08/07/18 12:03 07/27/18 08/07/18 11:04 11:49 Wound Center Nurse 2 #6 RIGHT ISCHIUM -Time 11:06 12:00 -Correct Patient Yes Yes -Correct Side, Site, Position Yes Yes -Correct Procedure Yes Yes -Procedure Performed Yes Yes -Type of Procedure Debridement Debridement -Clinical Debridement Subcutaneous Subcutaneous -Post Debridement Size (cm) - Length 3.5 7.0 -Post Debridement Size (cm) - Width 5.8 2.8 -Post Debridement Size (cm) - Depth 0.2 0.6 -Total Square Cm 20.30 19.60 -Wound/Ulcer Outcome Not Healed Not Healed -Ulcer Cleansing Rinsed/ Rinsed/ Irrigated with Irrigated with Saline Saline -Foul Odor after Cleansing No No -Bioengineered Tissue No No -Topical Lidocaine (%) 4 -Lidocaine (ml) 5 -Bleeding Controlled with Pressure NA -Other tunnel @ 5 1. 3cm, undermining 12- 3 , 0.5 -Treatment Response Procedure Procedure Tolerated Well Tolerated Well Pain Scale: 0-10 Numeric Is Patient Pain Free? Yes Laterality: Right - Ischial pressure ulcer Type of Debridement: Excisional debridement Anesthesia Used: 4% Lidocaine Solution Depth: Down to and including healthy tissue, in the subcutaneous layer Percentage of wound debrided: 100 Instrument Used: 7mm curette Severity: Fat Layer Exposed Amount of bleeding with debridement: Mild Bleeding Controlled with: Compression and gauze Patient tolerated procedure well Assessment/Plan Active Problems MRSA (methicillin resistant staph aureus) culture positive (Acute) Infected decubitus ulcer (Acute) Decubitus ulcer of right ischium, stage 3 (Chronic) Decubitus ulcer of right ischium, stage 2 (Chronic) Spina bifida (Chronic) Chronic osteomyelitis, pelvic region and thigh (Chronic) right sacral area Malnutrition compromising bodily function (Chronic) Assessment: Decubitus ulcer stage III right ischium. Spina bifida. Paraplegia. Hydrocephalus. History of osteomyelitis. Infected ulcer Plan: Debridement done as doumented above, procedure was well tolerated. Continue Aquacel AG. Continue offloading. Increased protein intake recommended. Follow up in 1-2 weeks. Advised to call with any questions or c oncerns.
[2018-08-17 10:02] VITALS: BP 116/70; PULSE 72; RESP 16; TEMP 36.7
--- NOTE | 2018-08-17 11:03 | PCM.WC.PN ---
(1) Decubitus ulcer of right ischium, stage 3 Status: Chronic Current Visit: Yes Code(s): L89.313 - Pressure ulcer of right buttock, stage 3 (2) Infected decubitus ulcer Status: Acute Current Visit: Yes Qualifiers: Code(s): L89.90 - Pressure ulcer of unspecified site, unspecified stage; L08.9 - Local infection of the skin and subcutaneous tissue, unspecified (3) MRSA (methicillin resistant staph aureus) culture positive Status: Acute Current Visit: Yes Code(s): Z22.322 - Carrier or suspected carrier of Methicillin resistant Staphylococcus aureus (4) Chronic osteomyelitis, pelvic region and thigh Status: Chronic Current Visit: Yes Code(s): M86.659 - Other chronic osteomyelitis, unspecified thigh Comment: right sacral area (5) Decubitus ulcer of right ischium, stage 2 Status: Chronic Current Visit: Yes Code(s): L89.312 - Pressure ulcer of right buttock, stage 2 (6) Malnutrition compromising bodily function Status: Chronic Current Visit: Yes Code(s): E46 - Unspecified protein-calorie malnutrition (7) Spina bifida Status: Chronic Current Visit: Yes Code(s): Q05.9 - Spina bifida, unspecified Type of Wound Chief Complaint: Right ischium ulcer History of Wound: 23-year-old with past medical history of spina bifida, paraplegia, and Stage 3 right ischial pressure ulceration. The patient has been long-term at our facility, with care provided by other providers. Patient is seen today for the purpose of interval evaluation and debridement of his right ischial pressure ulceration. Progress of Wound: Today the ulcer is smaller. Still has some undermining 0.3 from 1-3 and no tunneling noted on either end of the ulcer. Cultures were positive for staph aureus patient was started on antibiotics. Patient was approved for epi fix #1 was applied today. Patient still has a lot of discharge so we did apply gauze on top of the Veil, with absorbent dressing on top. - Physical Exam Vital Signs Temp Pulse Resp BP 98.1 F 72 16 116/70 08/17/18 10:02 08/17/18 10:02 08/17/18 10:02 08/17/18 10:02 General: Oriented x3, Cooperative, Well developed HEENT: Atraumatic, PERRLA Oral: Moist Mucosa Neck: Supple, No JVD Lungs: Clear to auscultation, Normal air movement Cardiovascular: Regular rate, Regular Rhythm Abdomen: Bowel Sounds Present, Soft, Non Tender, No Hepato-splenomegaly Extremities: No clubbing, No edema Skin: Ulcer/ Wound - Right ischium stage III Wound Measurements and Assessment WC - Nurse 1 - General Ulcer Measurement Start: 07/27/18 10:21 Freq: Status: Active Protocol: Activity Type Activity Date Activity User E-Sign Co-Sign Detail Recorded Client Recorded Date Recorded By Document 08/17/18 10:02 [id number] 08/17/18 10:04 08/17/18 10:02 Wound Center Nurse 1 [Ulcer Assessment] #6 RIGHT ISCHIUM -Combined with other wound No -Current Size (cm) - Length 3.0 -Current Size (cm) - Width 6.2 -Current Size (cm) - Depth 0.4 -Total Square Cm 18.60 -Photo Taken No -Epithelialization Small 1-33% -Tunneling No -Undermining/Tunneling No -Circular Undermining No -Classification - Thickness Full Thickness without Exposed Support Structure -Exudate Amt Large (67-100%) -Exudate Type Serosanguineous -Wound Margin Distinct, Outline Attached -Granulation Amt Small (1-33%) -Granulation Quality [place] -Slough/Fibrin Yes -Necrosis Amt Large (67-100%) -Necrotic Tissue Type Adherent Slough -Structure Exposed Fat Layer Exposed -Texture (Ida-wound Skin Appearance) Assessed Scarring -Moisture (Ida-wound Skin Appearance Assessed ) Maceration Weeping -Color (Ida-wound Skin Appearance) No Abnormality Assessed -Temperature (Ida-wound Skin No Abnormality Appearance) (Pt Warm) -Tenderness on Palpation (Ida-wound No Skin Appearance) -Ulcer Cleansing Rinsed/ Irrigated with Saline -Foul Odor after Cleansing No -Anesthetic Used 4% Lidocaine Solution WC - Nurse 2 - General Ulcer CM Notes Start: 07/27/18 10:21 Freq: Status: Active Protocol: Activity Type Activity Date Activity User E-Sign Co-Sign Detail Recorded Client Recorded Date Recorded By Document 08/17/18 10:12 MW [id number] 08/17/18 10:24 MW 08/17/18 10:12 Wound Center Nurse 2 [Procedure/Treatment] -Time 10:12 -Correct Patient Yes -Correct Side, Site, Position Yes -Correct Procedure Yes -Procedure Performed Yes -Type of Procedure Debridement -Clinical Debridement Subcutaneous -Post Debridement Size (cm) - Length 6.7 -Post Debridement Size (cm) - Width 2.0 -Post Debridement Size (cm) - Depth 0.3 -Total Square Cm 13.40 -Wound/Ulcer Outcome Not Healed -Ulcer Cleansing Rinsed/ Irrigated with Saline -Foul Odor after Cleansing No -Bioengineered Tissue No -Expiration Date 04/22/23 -Product Lot Number [id number] -Percent Used 100 -Saline Lot Number [id number] -Bleeding Controlled with Pressure -Treatment Response Procedure Tolerated Well [See Physician Procedure note for Specifics] Pain Scale: 0-10 Numeric [Pain] -Is Patient Pain Free? Yes Musculoskeletal: No Tenderness to Palpation of Joints or Extremities Lymphatic: No Cervical, Supraclavicular, or Inguinal Adenopathy Neurological: Cranial nerves II-XII grossly intact, Neuro grossly intact Psych/Mental Status: Normal Affect, Appropriate Debridement Note Post-Debridement Measurements/Treatment WC - Nurse 2 - General Ulcer CM Notes Start: 07/27/18 10:21 Freq: Status: Active Protocol: Activity Type Activity Date Activity User E-Sign Co-Sign Detail Recorded Client Recorded Date Recorded By Document 07/27/18 11:04 MW [id number] 07/27/18 11:10 MW Document 08/07/18 11:49 [email or web address] [id number] 08/07/18 12:03 JS Document 08/17/18 10:12 MW [id number] 08/17/18 10:24 MW 07/27/18 08/07/18 08/17/18 11:04 11:49 10:12 Wound Center Nurse 2 #6 RIGHT ISCHIUM -Time 11:06 12:00 10:12 -Correct Patient Yes Yes Yes -Correct Side, Site, Position Yes Yes Yes -Correct Procedure Yes Yes Yes -Procedure Performed Yes Yes Yes -Type of Procedure Debridement Debridement Debridement -Clinical Debridement Subcutaneous Subcutaneous Subcutaneous -Post Debridement Size (cm) - Length 3.5 7.0 6.7 -Post Debridement Size (cm) - Width 5.8 2.8 2.0 -Post Debridement Size (cm) - Depth 0.2 0.6 0.3 -Total Square Cm 20.30 19.60 13.40 -Wound/Ulcer Outcome Not Healed Not Healed Not Healed -Ulcer Cleansing Rinsed/ Rinsed/ Rinsed/ Irrigated with Irrigated with Irrigated with Saline Saline Saline -Foul Odor after Cleansing No No No -Bioengineered Tissue No No No -Expiration Date 04/22/23 -Product Lot Number [id number] -Percent Used 100 -Saline Lot Number [id number] -Topical Lidocaine (%) 4 -Lidocaine (ml) 5 -Bleeding Controlled with Pressure NA Pressure -Other tunnel @ 5 1. 3cm, undermining 12- 3 , 0.5 -Treatment Response Procedure Procedure Procedure Tolerated Well Tolerated Well Tolerated Well Pain Scale: 0-10 Numeric Is Patient Pain Free? Yes Yes Wound debrided: Right ischium Laterality: Right Wound Grade/Stage: Stage III Type of Debridement: Excisional debridement Anesthesia Used: 5% Lidocaine Gel Depth: Down to and including healthy tissue, in the subcutaneous layer Percentage of wound debrided: 100 Instrument Used: 7mm curette Tissue Removed: Fibrin and macerated tissue Severity: Limited To Skin Breakdown Amount of bleeding with debridement: Moderate Bleeding Controlled with: Compression and gauze Patient tolerated procedure well Assessment/Plan Active Problems MRSA (methicillin resistant staph aureus) culture positive (Acute) Infected decubitus ulcer (Acute) Decubitus ulcer of right ischium, stage 3 (Chronic) Decubitus ulcer of right ischium, stage 2 (Chronic) Spina bifida (Chronic) Chronic osteomyelitis, pelvic region and thigh (Chronic) right sacral area Malnutrition compromising bodily function (Chronic) Assessment: Decubitus ulcer stage III right ischium. Spina bifida. Paraplegia. Hydrocephalus. History of osteomyelitis. Infected ulcer Plan: Debridement done as doumented above, procedure was well tolerated. Epi fix #1 applied may change the outside dressing but nothing under the Steri-Strips. Continue offloading. Increased protein intake recommended. Follow up in 1 weeks. Advised to call with any questions or concerns.
--- NOTE | 2018-08-17 11:09 | PN.PCM_ITS ---
(1) Decubitus ulcer of right ischium, stage 3 Status: Chronic Current Visit: Yes Code(s): L89.313 - Pressure ulcer of right buttock, stage 3 (2) Infected decubitus ulcer Status: Acute Current Visit: Yes Qualifiers: Code(s): L89.90 - Pressure ulcer of unspecified site, unspecified stage; L08.9 - Local infection of the skin and subcutaneous tissue, unspecified (3) MRSA (methicillin resistant staph aureus) culture positive Status: Acute Current Visit: Yes Code(s): Z22.322 - Carrier or suspected ca rrier of Methicillin resistant Staphylococcus aureus (4) Chronic osteomyelitis, pelvic region and thigh Status: Chronic Current Visit: Yes Code(s): M86.659 - Other chronic osteomyelitis, unspecified thigh Comment: right sacral area (5) Decubitus ulcer of right ischium, stage 2 Status: Chronic Current Visit: Yes Code(s): L89.312 - Pressure ulcer of right buttock, stage 2 (6) Malnutrition compromising bodily function Status: Chronic Current Visit: Yes Code(s): E46 - Unspecified protein- calorie malnutrition (7) Spina bifida Status: Chronic Current Visit: Yes Code(s): Q05.9 - Spina bifida, unspecified Type of Wound Chief Complaint: Right ischium ulcer History of Wound: 23-year-old with past medical history of spina bifida, paraplegia, and Stage 3 right ischial pressure ulceration. The patient has been long-term at our facility, with care provided by other providers. Patient is seen today for the purpose of interval evaluation and debridement of his right ischial pressure ulceration. Progress of Wound: Today the ulcer is smaller. Still has some undermining 0.3 from 1-3 and no tunneling noted on either end of the ulcer. Cultures were positive for staph aureus patient was started on antibiotics. Patient was approved for epi fix #1 was applied today. Patient still has a lot of discharge so we did apply gauze on top of the Veil, with absorbent dressing on top. - Physical Exam Vital Signs Temp Pulse Resp BP 98.1 F 72 16 116/70 08/17/18 10:02 08/17/18 10:02 08/17/18 10:02 08/17/18 10:02 General: Oriented x3, Cooperative, Well developed HEENT: Atraumatic, PERRLA Oral: Moist Mucosa Neck: Supple, No JVD Lungs: Clear to auscultation, Normal air movement Cardiovascular: Regular rate, Regular Rhythm Abdomen: Bowel Sounds Present, Soft, Non Tender, No Hepato-splenomegaly Extremities: No clubbing, No edema Skin: Ulcer/ Wound - Right ischium stage III Wound Measurements and Assessment WC - Nurse 1 - General Ulcer Measurement Start: 07/27/18 10:21 Freq: Status: Active Protocol: Activity Type Activity Date Activity User E-Sign Co-Sign Detail Recorded Client Recorded Date Recorded By Document 08/17/18 10:02 [id number] 08/17/18 10:04 08/17/18 10:02 Wound Center Nurse 1 [Ulcer Assessment] #6 RIGHT ISCHIUM -Combined with other wound No -Current Size (cm) - Length 3.0 -Current Size (cm) - Width 6.2 -Current Size (cm) - Depth 0.4 -Total Square Cm 18.60 -Photo Taken No -Epithelialization Small 1-33% -Tunneling No -Undermining/Tunneling No -Circular Undermining No -Classification - Thickness Full Thickness without Exposed Support Structure -Exudate Amt Large (67-100%) -Exudate Type Serosanguineous -Wound Margin Distinct, Outline Attached -Granulation Amt Small (1-33%) -Granulation Quality Pale [place] -Slough/Fibrin Yes -Necrosis Amt Large (67-100%) -Necrotic Tissue Type Adherent Slough -Structure Exposed Fat Layer Exposed -Texture (Ida-wound Skin Appearance) Assessed Scarring -Moisture (Ida-wound Skin Appearance Assessed ) Maceration Weeping -Color (Ida-wound Skin Appearance) No Abnormality Assessed -Temperature (Ida-wound Skin No Abnormality Appearance) (Pt Warm) -Tenderness on Palpation (Ida-wound No Skin Appearance) -Ulcer Cleansing Rinsed/ Irrigated with Saline -Foul Odor after Cleansing No -Anesthetic Used 4% Lidocaine Solution WC - Nurse 2 - General Ulcer CM Notes Start: 07/27/18 10:21 Freq: Status: Active Protocol: Activity Type Activity Date Activity User E-Sign Co-Sign Detail Recorded Client Recorded Date Recorded By Document 08/17/18 10:12 MW [id number] 08/17/18 10:24 MW 08/17/18 10:12 Wound Center Nurse 2 [Procedure/Treatment] -Time 10:12 -Correct Patient Yes -Correct Side, Site, Position Yes -Correct Procedure Yes -Procedure Performed Yes -Type of Procedure Debridement -Clinical Debridement Subcutaneous -Post Debridement Size (cm) - Length 6.7 -Post Debridement Size (cm) - Width 2.0 -Post Debridement Size (cm) - Depth 0.3 -Total Square Cm 13.40 -Wound/Ulcer Outcome Not Healed -Ulcer Cleansing Rinsed/ Irrigated with Saline -Foul Odor after Cleansing No -Bioengineered Tissue No -Expiration Date 04/22/23 -Product Lot Number [id number] -Percent Used 100 -Saline Lot Number [id number] -Bleeding Controlled with Pressure -Treatment Response Procedure Tolerated Well [See Physician Procedure note for Specifics] Pain Scale: 0-10 Numeric [Pain] -Is Patient Pain Free? Yes Musculoskeletal: No Tenderness to Palpation of Joints or Extremities Lymphatic: No Cervical, Supraclavicular, or Inguinal Adenopathy Neurological: Cranial nerves II-XII grossly intact, Neuro grossly intact Psych/Mental Status: Normal Affect, Appropriate Debridement Note Post-Debridement Measurements/Treatment WC - Nurse 2 - General Ulcer CM Notes Start: 07/27/18 10:21 Freq: Status: Active Protocol: Activity Type Activity Date Activity User E-Sign Co-Sign Detail Recorded Client Recorded Date Recorded By Document 07/27/18 11:04 MW [id number] 07/27/18 11:10 MW Document 08/07/18 11:49 JS [id number] 08/07/18 12:03 JS Document 08/17/18 10:12 MW [id number] 08/17/18 10:24 MW 07/27/18 08/07/18 08/17/18 11:04 11:49 10:12 Wound Center Nurse 2 #6 RIGHT ISCHIUM -Time 11:06 12:00 10:12 -Correct Patient Yes Yes Yes -Correct Side, Site, Position Yes Yes Yes -Correct Procedure Yes Yes Yes -Procedure Performed Yes Yes Yes -Type of Procedure Debridement Debridement Debridement -Clinical Debridement Subcutaneous Subcutaneous Subcutaneous -Post Debridement Size (cm) - Length 3.5 7.0 6.7 -Post Debridement Size (cm) - Width 5.8 2.8 2.0 -Post Debridement Size (cm) - Depth 0.2 0.6 0.3 -Total Square Cm 20.30 19.60 13.40 -Wound/Ulcer Outcome Not Healed Not Healed Not Healed -Ulcer Cleansing Rinsed/ Rinsed/ Rinsed/ Irrigated with Irrigated with Irrigated with Saline Saline Saline -Foul Odor after Cleansing No No No -Bioengineered Tissue No No No -Expiration Date 04/22/23 -Product Lot Number [id number] -Percent Used 100 -Saline Lot Number [id number] -Topical Lidocaine (%) 4 -Lidocaine (ml) 5 -Bleeding Controlled with Pressure NA Pressure -Other tunnel @ 5 1. 3cm, undermining 12- 3 , 0.5 -Treatment Response Procedure Procedure Procedure Tolerated Well Tolerated Well Tolerated Well Pain Scale: 0-10 Numeric Is Patient Pain Free? Yes Yes Wound debrided: Right ischium Laterality: Right Wound Grade/Stage: Stage III Type of Debridement: Excisional debridement Anesthesia Used: 5% Lidocaine Gel Depth: Down to and including healthy tissue, in the subcutaneous layer Percentage of wound debrided: 100 Instrument Used: 7mm curette Tissue Removed: Fibrin and macerated tissue Severity: Limited To Skin Breakdown Amount of bleeding with debridement: Moderate Bleeding Controlled with: Compression and gauze Patient tolerated procedure well Assessment/Plan Active Problems MRSA (methicillin resistant staph aureus) culture positive (Acute) Infected decubitus ulcer (Acute) Decubitus ulcer of right ischium, stage 3 (Chronic) Decubitus ulcer of right ischium, stage 2 (Chronic) Spina bifida (Chronic) Chronic osteomyelitis, pelvic region and thigh (Chronic) right sacral area Malnutrition compromising bodily function (Chronic) Assessment: Decubitus ulcer stage III right ischium. Spina bifida. Paraplegia. Hydrocephalus. History of osteomyelitis. Infected ulcer Plan: Debridement done as doumented above, procedure was well tolerated. Epi fix #1 applied may change the outside dressing but nothing under the Steri- Strips. Continue offloading. Increased protein intake recommended. Follow up in 1 weeks. Advised to call with any questions or concerns.
[2018-08-22 09:47] VITALS: BP 108/64; PULSE 84; RESP 18; TEMP 36.1
--- NOTE | 2018-08-22 10:21 | PCM.WC.HP ---
(1) Decubitus ulcer of right ischium, stage 3 Status: Chronic Current Visit: Yes Code(s): L89.313 - Pressure ulcer of right buttock, stage 3 (2) Spina bifida Status: Chronic Current Visit: Yes Code(s): Q05.9 - Spina bifida, unspecified History of Present Illness Chief Complaint: Right ischium ulcer History of Wound: Marcos is a 23-year-old with past medical history of spina bifida, paraplegia, and Stage 3 right ischial pressure ulceration. The patient has been long-term at our facility, with care provided by other providers and most recently by Alondra Menjivar NP. Transfer of care today due to insurance change. No new complaints at this time. Has had one application of epi fix so far. 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 History of osteomyelitis (Chronic) right sacral area Decubitus ulcer of right ischium, stage 2 (Chronic) Spina bifida (Chronic) Chronic osteomyelitis, pelvic region and thigh (Chronic) right sacral area Malnutrition compromising bodily function (Chronic) Allergies/Adverse Reactions: Allergies latex Allergy (Verified 07/22/16 12:53) Unknown unsure as charted levofloxacin [Levofloxacin] Allergy (Verified 07/22/16 12:53) Rash sulfamethoxazole [From Bactrim] Allergy (Verified 07/22/16 12:53) Rash trimethoprim [From Bactrim] Allergy (Verified 07/22/16 12:53) Rash Home Medications: Ambulatory Orders Medication Instructions Recorded Polyethylene Glycol 3350 [Miralax] 17 gm PO DAILY #30 05/06/14 Ascorbic Acid [Vitamin C] 1,000 mg PO DAILY 07/22/16 Cholecalciferol (VIT D3) [Vitamin 1,000 unit PO DAILY 07/22/16 D] Multivitamins,Therapeutic 1 tablet PO DAILY 07/22/16 [Multivitamin] Smoking Status: Never smoker Review of Systems Constitutional: Denies: Anorexia, Chills, Fever Eyes: Denies: Blurred vision, Pain HEENT: Denies: Difficulty Hearing Cardiovascular: Denies: Chest Pain, Chest Tightness Respiratory: Denies: Hemoptysis Gastrointestinal: Denies: Abdominal Pain, Hematemesis, Vomiting Skin: Denies: Jaundice - Physical Exam Vital Signs Temp Pulse Resp BP 96.9 F L 84 18 108/64 08/22/18 09:47 08/22/18 09:47 08/22/18 09:47 08/22/18 09:47 General: Alert, Oriented x3, Cooperative HEENT: Atraumatic Oral: Moist Mucosa Neck: Supple Lungs: Normal air movement Extremities: No cyanosis Skin: Ulcer/ Wound Wound Measurements and Assessment WC - Nurse 1 - General Ulcer Measurement Start: 07/27/18 10:21 Freq: Status: Active Protocol: Activity Type Activity Date Activity User E-Sign Co-Sign Detail Recorded Client Recorded Date Recorded By Document 08/22/18 09:47 CS [id number] 08/22/18 09:49 CS 08/22/18 09:47 Wound Center Nurse 1 [Ulcer Assessment] #6 RIGHT ISCHIUM -Current Size (cm) - Length 6.6 -Current Size (cm) - Width 3.4 -Current Size (cm) - Depth 0.3 -Total Square Cm 22.44 -Photo Taken No -Exudate Amt Medium (34-66%) -Exudate Type Serosanguineous -Wound Margin Distinct, Outline Attached -Granulation Amt Medium (34-66%) -Granulation Quality Pale [place] -Necrosis Amt Medium (34-66%) -Necrotic Tissue Type Adherent Slough -Structure Exposed N/A -Texture (Ida-wound Skin Appearance) Scarring -Moisture (Ida-wound Skin Appearance No Abnormality ) -Color (Ida-wound Skin Appearance) No Abnormality -Temperature (Ida-wound Skin No Abnormality Appearance) (Pt Warm) -Tenderness on Palpation (Ida-wound No Skin Appearance) -Ulcer Cleansing Rinsed/ Irrigated with Saline -Foul Odor after Cleansing No -Anesthetic Used 4% Lidocaine Solution WC - Nurse 2 - General Ulcer CM Notes Start: 07/27/18 10:21 Freq: Status: Active Protocol: Activity Type Activity Date Activity User E-Sign Co-Sign Detail Recorded Client Recorded Date Recorded By Document 08/22/18 09:57 MW [id number] 08/22/18 10:15 MW 08/22/18 09:57 Wound Center Nurse 2 [Procedure/Treatment] -Time 09:58 -Correct Patient Yes -Correct Side, Site, Position Yes -Correct Procedure Yes -Procedure Performed Yes -Type of Procedure Debridement -Clinical Debridement Subcutaneous -Post Debridement Size (cm) - Length 4.0 -Post Debridement Size (cm) - Width 7.5 -Post Debridement Size (cm) - Depth 0.6 -Total Square Cm 30.00 -Wound/Ulcer Outcome Not Healed -Ulcer Cleansing Rinsed/ Irrigated with Saline -Foul Odor after Cleansing No -Bioengineered Tissue No -Expiration Date 04/22/23 -Product Lot Number [id number] -Percent Used 100 -Saline Lot Number [id number] -Bleeding Controlled with Pressure -Treatment Response Procedure Tolerated Well [See Physician Procedure note for Specifics] Pain Scale: 0-10 Numeric [Pain] -Is Patient Pain Free? Yes Neurological: Neuro grossly intact Psych/Mental Status: Normal Affect Debridement Note Post-Debridement Measurements/Treatment WC - Nurse 2 - General Ulcer CM Notes Start: 07/27/18 10:21 Freq: Status: Active Protocol: Activity Type Activity Date Activity User E-Sign Co-Sign Detail Recorded Client Recorded Date Recorded By Document 07/27/18 11:04 MW [id number] 07/27/18 11:10 MW Document 08/07/18 11:49 JS [id number] 08/07/18 12:03 JS Document 08/17/18 10:12 MW [id number] 08/17/18 10:24 MW Document 08/22/18 09:57 MW [id number] 08/22/18 10:15 MW 07/27/18 08/07/18 08/17/18 11:04 11:49 10:12 Wound Center Nurse 2 #6 RIGHT ISCHIUM -Time 11:06 12:00 10:12 -Correct Patient Yes Yes Yes -Correct Side, Site, Position Yes Yes Yes -Correct Procedure Yes Yes Yes -Procedure Performed Yes Yes Yes -Type of Procedure Debridement Debridement Debridement -Clinical Debridement Subcutaneous Subcutaneous Subcutaneous -Post Debridement Size (cm) - Length 3.5 7.0 6.7 -Post Debridement Size (cm) - Width 5.8 2.8 2.0 -Post Debridement Size (cm) - Depth 0.2 0.6 0.3 -Total Square Cm 20.30 19.60 13.40 -Wound/Ulcer Outcome Not Healed Not Healed Not Healed -Ulcer Cleansing Rinsed/ Rinsed/ Rinsed/ Irrigated with Irrigated with Irrigated with Saline Saline Saline -Foul Odor after Cleansing No No No -Bioengineered Tissue No No No -Expiration Date 04/22/23 -Product Lot Number [id number] -Percent Used 100 -Saline Lot Number [id number] -Topical Lidocaine (%) 4 -Lidocaine (ml) 5 -Bleeding Controlled with Pressure NA Pressure -Other tunnel @ 5 1. 3cm, undermining 12- 3 , 0.5 -Treatment Response Procedure Procedure Procedure Tolerated Well Tolerated Well Tolerated Well Pain Scale: 0-10 Numeric Is Patient Pain Free? Yes Yes 08/22/18 09:57 Wound Center Nurse 2 #6 RIGHT ISCHIUM -Time 09:58 -Correct Patient Yes -Correct Side, Site, Position Yes -Correct Procedure Yes -Procedure Performed Yes -Type of Procedure Debridement -Clinical Debridement Subcutaneous -Post Debridement Size (cm) - Length 4.0 -Post Debridement Size (cm) - Width 7.5 -Post Debridement Size (cm) - Depth 0.6 -Total Square Cm 30.00 -Wound/Ulcer Outcome Not Healed -Ulcer Cleansing Rinsed/ Irrigated with Saline -Foul Odor after Cleansing No -Bioengineered Tissue No -Expiration Date 04/22/23 -Product Lot Number [id number] -Percent Used 100 -Saline Lot Number [id number] -Topical Lidocaine (%) -Lidocaine (ml) -Bleeding Controlled with Pressure -Other -Treatment Response Procedure Tolerated Well Pain Scale: 0-10 Numeric Is Patient Pain Free? Yes Wound debrided: Right buttock decubitus ulcer Wound Grade/Stage: Stage III Type of Debridement: Excisional debridement Anesthesia Used: 4% Lidocaine Solution Depth: Down to and including healthy tissue, in the subcutaneous layer Percentage of wound debrided: 100 Instrument Used: 7mm curette Tissue Removed: Slough and devitalized tissue Severity: Fat Layer Exposed Amount of bleeding with debridement: Mild Bleeding Controlled with: Pressure Patient tolerated procedure well Assessment/Plan Active Problems MRSA (methicillin resistant staph aureus) culture positive (Acute) Infected decubitus ulcer (Acute) Decubitus ulcer of right ischium, stage 3 (Chronic) Decubitus ulcer of right ischium, stage 2 (Chronic) Spina bifida (Chronic) Chronic osteomyelitis, pelvic region and thigh (Chronic) right sacral area Malnutrition compromising bodily function (Chronic) Assessment: Decubitus ulcer stage III right ischium. Spina bifida. Paraplegia. History of osteomyelitis. Plan: Debridement done as doumented above, procedure was well-tolerated. Second application of epi fix done using 100% of product. Wound veil over top secured with Steri-Strips. Aquacel over, secured with tape. Continue offloading. Increased protein intake recommended. Follow up in 1 week. Advised to call with any questions or concerns. This note was generated with [employer] dictation software. It may contain incorrect words, spelling, and punctuation that were not noted in checking the note before signing.
== END 2018-08-22 23:59 ==
LOC: WC 09:30
PROVIDERS: Family Provider Family Medicine; PCP Family Medicine; Visit Provider Internal Medicine
DX: L89.213 Pressure ulcer of right hip, stage 3 (principal); Q05.9 Spina bifida, unspecified; Z22.322 Carrier or suspected carrier of Methicillin resistant Staphylococcus aureus; M86.68 Other chronic osteomyelitis, other site; G82.20 Paraplegia, unspecified
CPT/HCPCS: 11042; 11045; 15271; 87070; 87075; 87077; 87186; 87205; Q4131

== ENCOUNTER 2018-09-20 09:30 | Outpatient (RCR) | payer OTHER, MEDICAID, SELFPAY ==
[2018-08-23 00:55] VITALS: BP 108/64; PULSE 84; RESP 18; TEMP 36.1
[2018-08-30 09:57] VITALS: BP 103/69; PULSE 89; RESP 16; TEMP 36.6
--- NOTE | 2018-08-30 11:45 | PCM.WC.PN ---
(1) Decubitus ulcer of right ischium, stage 3 Status: Chronic Current Visit: Yes Code(s): L89.313 - Pressure ulcer of right buttock, stage 3 (2) Spina bifida Status: Chronic Current Visit: No Code(s): Q05.9 - Spina bifida, unspecified Type of Wound Chief Complaint: Right ischium ulcer History of Wound: Marcos is a 23-year-old with past medical history of spina bifida, paraplegia, and Stage 3 right ischial pressure ulceration. The patient has been long-term at our facility, with care provided by other providers and most recently by Alondra Menjivar NP. Transfer of care today due to insurance change. No new complaints at this time. Has had one application of epi fix so far. Progress of Wound: Still has significant drainage. No other concerns for infection. Has changed insurance since his last visit and there has been no approval for epi fix yet. - Physical Exam Vital Signs Temp Pulse Resp BP 97.9 F 89 16 103/69 08/30/18 09:57 08/30/18 09:57 08/30/18 09:57 08/30/18 09:57 General: Alert, Oriented x3, Cooperative, No apparent distress HEENT: Atraumatic Oral: Moist Mucosa Neck: Supple Lungs: Normal air movement Extremities: No cyanosis Skin: Ulcer/ Wound Wound Measurements and Assessment WC - Nurse 1 - General Ulcer Measurement Start: 08/30/18 09:57 Freq: Status: Active Protocol: Activity Type Activity Date Activity User E-Sign Co-Sign Detail Recorded Client Recorded Date Recorded By Document 08/30/18 09:57 [id number] 08/30/18 09:59 08/30/18 09:57 Wound Center Nurse 1 [Ulcer Assessment] #6 RIGHT ISCHIUM -Combined with other wound No -Current Size (cm) - Length 5.4 -Current Size (cm) - Width 6.8 -Current Size (cm) - Depth 1.0 -Total Square Cm 36.72 -Photo Taken No -Epithelialization None Present -Tunneling No -Undermining/Tunneling No -Circular Undermining No -Exudate Amt Large (67-100%) -Exudate Type Yellow/Green -Wound Margin Distinct, Outline Attached -Granulation Amt Small (1-33%) -Granulation Quality [place] -Slough/Fibrin Yes -Necrosis Amt Large (67-100%) -Necrotic Tissue Type Adherent Slough -Texture (Ida-wound Skin Appearance) Assessed Scarring -Moisture (Ida-wound Skin Appearance Assessed ) Maceration -Color (Ida-wound Skin Appearance) No Abnormality Assessed Palor -Temperature (Ida-wound Skin No Abnormality Appearance) (Pt Warm) -Tenderness on Palpation (Ida-wound No Skin Appearance) -Ulcer Cleansing Rinsed/ Irrigated with Saline -Foul Odor after Cleansing No -Anesthetic Used 4% Lidocaine Solution - Nurse 2 - General Ulcer CM Notes Start: 08/30/18 09:57 Freq: Status: Active Protocol: Activity Type Activity Date Activity User E-Sign Co-Sign Detail Recorded Client Recorded Date Recorded By Document 08/30/18 10:21 MW [id number] 08/30/18 10:28 MW 08/30/18 10:21 Wound Center Nurse 2 [Procedure/Treatment] -Time 10:21 -Correct Patient Yes -Correct Side, Site, Position Yes -Correct Procedure Yes -Procedure Performed Yes -Type of Procedure Debridement -Clinical Debridement Subcutaneous -Post Debridement Size (cm) - Length 4.5 -Post Debridement Size (cm) - Width 6.0 -Post Debridement Size (cm) - Depth 0.9 -Total Square Cm 27.00 -Wound/Ulcer Outcome Not Healed -Ulcer Cleansing Rinsed/ Irrigated with Saline -Foul Odor after Cleansing No -Bioengineered Tissue No -Bleeding Controlled with Pressure -Treatment Response Procedure Tolerated Well [See Physician Procedure note for Specifics] Pain Scale: 0-10 Numeric [Pain] -Is Patient Pain Free? Yes Neurological: Cranial nerves II-XII grossly intact Psych/Mental Status: Normal Affect Debridement Note Post-Debridement Measurements/Treatment - Nurse 2 - General Ulcer CM Notes Start: 08/30/18 09:57 Freq: Status: Active Protocol: Activity Type Activity Date Activity User E-Sign Co-Sign Detail Recorded Client Recorded Date Recorded By Document 08/30/18 10:21 MW [id number] 08/30/18 10:28 MW 08/30/18 10:21 Wound Center Nurse 2 #6 RIGHT ISCHIUM -Time 10:21 -Correct Patient Yes -Correct Side, Site, Position Yes -Correct Procedure Yes -Procedure Performed Yes -Type of Procedure Debridement -Clinical Debridement Subcutaneous -Post Debridement Size (cm) - Length 4.5 -Post Debridement Size (cm) - Width 6.0 -Post Debridement Size (cm) - Depth 0.9 -Total Square Cm 27.00 -Wound/Ulcer Outcome Not Healed -Ulcer Cleansing Rinsed/ Irrigated with Saline -Foul Odor after Cleansing No -Bioengineered Tissue No -Bleeding Controlled with Pressure -Treatment Response Procedure Tolerated Well Pain Scale: 0-10 Numeric Is Patient Pain Free? Yes Wound debrided: Right buttock Wound Grade/Stage: Stage III Type of Debridement: Excisional debridement Anesthesia Used: 4% Lidocaine Solution Depth: Down to and including healthy tissue, in the subcutaneous layer Percentage of wound debrided: 100 Instrument Used: 7mm curette Tissue Removed: Slough and devitalized tissue Severity: Fat Layer Exposed Amount of bleeding with debridement: Mild Bleeding Controlled with: Pressure Patient tolerated procedure well Assessment/Plan Active Problems Decubitus ulcer of right ischium, stage 3 (Chronic) Assessment: Decubitus ulcer stage III right ischium. Spina bifida. Paraplegia. History of osteomyelitis. Plan: Debridement done as doumented above, procedure was well-tolerated. Epi fix holiday for now pending insurance approval. Promogran with gauze over top. Change daily to twice daily depending on drainage. Continue offloading. Increased protein intake recommended. Follow up in 1 week. Advised to call with any questions or concerns. This note was generated with [employer] dictation software. It may contain incorrect words, spelling, and punctuation that were not noted in checking the note before signing.
--- NOTE | 2018-08-30 11:49 | PN.PCM_ITS ---
(1) Decubitus ulcer of right ischium, stage 3 Status: Chronic Current Visit: Yes Code(s): L89.313 - Pressure ulcer of right buttock, stage 3 (2) Spina bifida Status: Chronic Current Visit: No Code(s): Q05.9 - Spina bifida, unspecified Type of Wound Chief Complaint: Right ischium ulcer History of Wound: Marcos is a 23-year-old with past medical history of spina bifida, paraplegia, and Stage 3 right ischial pressure ulceration. The patient has been long-term at our facility, with care provided by other providers and most recently by Alondra Menjivar NP. Transfer of care today due to insurance change. No new complaints at this time. Has had one application of epi fix so far. Progress of Wound: Still has significant drainage. No other concerns for infection. Has changed insurance since his last visit and there has been no approval for epi fix yet. - Physical Exam Vital Signs Temp Pulse Resp BP 97.9 F 89 16 103/69 08/30/18 09:57 08/30/18 09:57 08/30/18 09:57 08/30/18 09:57 General: Alert, Oriented x3, Cooperative, No apparent distress HEENT: Atraumatic Oral: Moist Mucosa Neck: Supple Lungs: Normal air movement Extremities: No cyanosis Skin: Ulcer/ Wound Wound Measurements and Assessment WC - Nurse 1 - General Ulcer Measurement Start: 08/30/18 09:57 Freq: Status: Active Protocol: Activity Type Activity Date Activity User E-Sign Co-Sign Detail Recorded Client Recorded Date Recorded By Document 08/30/18 09:57 [id number] 08/30/18 09:59 08/30/18 09:57 Wound Center Nurse 1 [Ulcer Assessment] #6 RIGHT ISCHIUM -Combined with other wound No -Current Size (cm) - Length 5.4 -Current Size (cm) - Width 6.8 -Current Size (cm) - Depth 1.0 -Total Square Cm 36.72 -Photo Taken No -Epithelialization None Present -Tunneling No -Undermining/Tunneling No -Circular Undermining No -Exudate Amt Large (67-100%) -Exudate Type Yellow/Green -Wound Margin Distinct, Outline Attached -Granulation Amt Small (1-33%) -Granulation Quality [place] -Slough/Fibrin Yes -Necrosis Amt Large (67-100%) -Necrotic Tissue Type Adherent Slough -Texture (Ida-wound Skin Appearance) Assessed Scarring -Moisture (Ida-wound Skin Appearance Assessed ) Maceration -Color (Ida-wound Skin Appearance) No Abnormality Assessed Palor -Temperature (Ida-wound Skin No Abnormality Appearance) (Pt Warm) -Tenderness on Palpation (Ida-wound No Skin Appearance) -Ulcer Cleansing Rinsed/ Irrigated with Saline -Foul Odor after Cleansing No -Anesthetic Used 4% Lidocaine Solution - Nurse 2 - General Ulcer CM Notes Start: 08/30/18 09:57 Freq: Status: Active Protocol: Activity Type Activity Date Activity User E-Sign Co-Sign Detail Recorded Client Recorded Date Recorded By Document 08/30/18 10:21 MW [id number] 08/30/18 10:28 MW 08/30/18 10:21 Wound Center Nurse 2 [Procedure/Treatment] -Time 10:21 -Correct Patient Yes -Correct Side, Site, Position Yes -Correct Procedure Yes -Procedure Performed Yes -Type of Procedure Debridement -Clinical Debridement Subcutaneous -Post Debridement Size (cm) - Length 4.5 -Post Debridement Size (cm) - Width 6.0 -Post Debridement Size (cm) - Depth 0.9 -Total Square Cm 27.00 -Wound/Ulcer Outcome Not Healed -Ulcer Cleansing Rinsed/ Irrigated with Saline -Foul Odor after Cleansing No -Bioengineered Tissue No -Bleeding Controlled with Pressure -Treatment Response Procedure Tolerated Well [See Physician Procedure note for Specifics] Pain Scale: 0-10 Numeric [Pain] -Is Patient Pain Free? Yes Neurological: Cranial nerves II-XII grossly intact Psych/Mental Status: Normal Affect Debridement Note Post-Debridement Measurements/Treatment - Nurse 2 - General Ulcer CM Notes Start: 08/30/18 09:57 Freq: Status: Active Protocol: Activity Type Activity Date Activity User E-Sign Co-Sign Detail Recorded Client Recorded Date Recorded By Document 08/30/18 10:21 MW [id number] 08/30/18 10:28 MW 08/30/18 10:21 Wound Center Nurse 2 #6 RIGHT ISCHIUM -Time 10:21 -Correct Patient Yes -Correct Side, Site, Position Yes -Correct Procedure Yes -Procedure Performed Yes -Type of Procedure Debridement -Clinical Debridement Subcutaneous -Post Debridement Size (cm) - Length 4.5 -Post Debridement Size (cm) - Width 6.0 -Post Debridement Size (cm) - Depth 0.9 -Total Square Cm 27.00 -Wound/Ulcer Outcome Not Healed -Ulcer Cleansing Rinsed/ Irrigated with Saline -Foul Odor after Cleansing No -Bioengineered Tissue No -Bleeding Controlled with Pressure -Treatment Response Procedure Tolerated Well Pain Scale: 0-10 Numeric Is Patient Pain Free? Yes Wound debrided: Right buttock Wound Grade/Stage: Stage III Type of Debridement: Excisional debridement Anesthesia Used: 4% Lidocaine Solution Depth: Down to and including healthy tissue, in the subcutaneous layer Percentage of wound debrided: 100 Instrument Used: 7mm curette Tissue Removed: Slough and devitalized tissue Severity: Fat Layer Exposed Amount of bleeding with debridement: Mild Bleeding Controlled with: Pressure Patient tolerated procedure well Assessment/Plan Active Problems Decubitus ulcer of right ischium, stage 3 (Chronic) Assessment: Decubitus ulcer stage III right ischium. Spina bifida. Paraplegia. History of osteomyelitis. Plan: Debridement done as doumented above, procedure was well-tolerated. Epi fix holiday for now pending insurance approval. Promogran with gauze over top. Change daily to twice daily depending on drainage. Continue offloading. Increased protein intake recommended. Follow up in 1 week. Advised to call with any questions or concerns. This note was generated with [employer] dictation software. It may contain incorrect words, spelling, and punctuation that were not noted in checking the note before signing.
[2018-09-06 09:53] VITALS: BP 106/69; PULSE 80; RESP 16; TEMP 36.6
--- NOTE | 2018-09-06 12:46 | PCM.WC.PN ---
(1) Decubitus ulcer of right ischium, stage 3 Status: Chronic Current Visit: Yes Code(s): L89.313 - Pressure ulcer of right buttock, stage 3 (2) Spina bifida Status: Chronic Current Visit: No Code(s): Q05.9 - Spina bifida, unspecified Type of Wound Chief Complaint: Right ischium ulcer History of Wound: Marcos is a 23-year-old with past medical history of spina bifida, paraplegia, and Stage 3 right ischial pressure ulceration. The patient has been long-term at our facility, with care provided by other providers and most recently by Alondra Mnejivar NP. Transfer of care today due to insurance change. No new complaints at this time. Has had one application of epi fix so far. Progress of Wound: Stable wound. No new concerns at this time. Still has significant drainage and skin substitute has not been approved by his insurance. - Physical Exam Vital Signs Temp Pulse Resp BP 97.8 F 80 16 106/69 09/06/18 09:53 09/06/18 09:53 09/06/18 09:53 09/06/18 09:53 General: Alert, Oriented x3, Cooperative, No apparent distress HEENT: Atraumatic, Normocephalic Oral: Moist Mucosa Neck: Supple Lungs: Normal air movement Extremities: No cyanosis Skin: Ulcer/ Wound Wound Measurements and Assessment WC - Nurse 1 - General Ulcer Measurement Start: 08/30/18 09:57 Freq: Status: Active Protocol: Activity Type Activity Date Activity User E-Sign Co-Sign Detail Recorded Client Recorded Date Recorded By Document 09/06/18 09:53 [id number] 09/06/18 10:06 DL 09/06/18 09:53 Wound Center Nurse 1 [Ulcer Assessment] #6 RIGHT ISCHIUM -Current Size (cm) - Length 3 -Current Size (cm) - Width 6 -Current Size (cm) - Depth 0.8 -Total Square Cm 18 -Photo Taken No -Exudate Amt Large (67-100%) -Exudate Type Serosanguineous -Wound Margin Thickened -Granulation Amt Small (1-33%) -Granulation Quality [place] -Necrosis Amt Large (67-100%) -Necrotic Tissue Type Adherent Slough -Structure Exposed N/A -Texture (Iad-wound Skin Appearance) Scarring -Moisture (Ida-wound Skin Appearance Maceration ) -Color (Ida-wound Skin Appearance) Rubor -Temperature (Ida-wound Skin No Abnormality Appearance) (Pt Warm) -Ulcer Cleansing Wound Cleanser -Foul Odor after Cleansing No -Anesthetic Used 4% Lidocaine Solution WC - Nurse 2 - General Ulcer Notes Start: 08/30/18 09:57 Freq: Status: Active Protocol: Activity Type Activity Date Activity User E-Sign Co-Sign Detail Recorded Client Recorded Date Recorded By Document 09/06/18 10:11 MW [id number] 09/06/18 10:22 MW 09/06/18 10:11 Wound Center Nurse 2 [Procedure/Treatment] -Time 10:11 -Correct Patient Yes -Correct Side, Site, Position Yes -Correct Procedure Yes -Procedure Performed Yes -Type of Procedure Debridement -Clinical Debridement Subcutaneous -Post Debridement Size (cm) - Length 3.5 -Post Debridement Size (cm) - Width 6.3 -Post Debridement Size (cm) - Depth 0.9 -Total Square Cm 22.05 -Wound/Ulcer Outcome Not Healed -Ulcer Cleansing Rinsed/ Irrigated with Saline -Foul Odor after Cleansing No -Bioengineered Tissue No -Bleeding Controlled with Pressure -Treatment Response Procedure Tolerated Well [See Physician Procedure note for Specifics] Pain Scale: 0-10 Numeric [Pain] -Is Patient Pain Free? Yes Neurological: Cranial nerves II-XII grossly intact Psych/Mental Status: Normal Affect Debridement Note Post-Debridement Measurements/Treatment WC - Nurse 2 - General Ulcer Notes Start: 08/30/18 09:57 Freq: Status: Active Protocol: Activity Type Activity Date Activity User E-Sign Co-Sign Detail Recorded Client Recorded Date Recorded By Document 08/30/18 10:21 MW [id number] 08/30/18 10:28 MW Document 09/06/18 10:11 MW [id number] 09/06/18 10:22 MW 08/30/18 09/06/18 10:21 10:11 Wound Center Nurse 2 #6 RIGHT ISCHIUM -Time 10:21 10:11 -Correct Patient Yes Yes -Correct Side, Site, Position Yes Yes -Correct Procedure Yes Yes -Procedure Performed Yes Yes -Type of Procedure Debridement Debridement -Clinical Debridement Subcutaneous Subcutaneous -Post Debridement Size (cm) - Length 4.5 3.5 -Post Debridement Size (cm) - Width 6.0 6.3 -Post Debridement Size (cm) - Depth 0.9 0.9 -Total Square Cm 27.00 22.05 -Wound/Ulcer Outcome Not Healed Not Healed -Ulcer Cleansing Rinsed/ Rinsed/ Irrigated with Irrigated with Saline Saline -Foul Odor after Cleansing No No -Bioengineered Tissue No No -Bleeding Controlled with Pressure Pressure -Treatment Response Procedure Procedure Tolerated Well Tolerated Well Pain Scale: 0-10 Numeric Is Patient Pain Free? Yes Yes Wound debrided: Right buttock Wound Grade/Stage: Stage III Type of Debridement: Excisional debridement Anesthesia Used: 4% Lidocaine Solution Depth: Down to and including healthy tissue, in the subcutaneous layer Percentage of wound debrided: 100 Instrument Used: 7mm curette Tissue Removed: Slough and devitalized tissue Severity: Fat Layer Exposed Amount of bleeding with debridement: Mild Bleeding Controlled with: Pressure Patient tolerated procedure well Assessment/Plan Active Problems Decubitus ulcer of right ischium, stage 3 (Chronic) Assessment: Decubitus ulcer stage III right ischium. Spina bifida. Paraplegia. History of osteomyelitis. Plan: Debridement done as doumented above, procedure was well-tolerated. Epi fix still pending insurance approval. However, I believe patient will benefit also from a wound VAC. Will start the application process. Continue Promogran with gauze over top. Change daily to twice daily depending on drainage. Continue offloading. Increased protein intake recommended. Follow up in 1 week. Advised to call with any questions or concerns. This note was generated with [employer] software. It may contain incorrect words, spelling, and punctuation that were not noted in checking the note before signing.
[2018-09-20 09:53] VITALS: BP 103/65; PULSE 103; RESP 18; TEMP 37.2
--- NOTE | 2018-09-20 12:49 | PCM.WC.PN ---
(1) Decubitus ulcer of right ischium, stage 3 Status: Chronic Current Visit: Yes Code(s): L89.313 - Pressure ulcer of right buttock, stage 3 (2) Spina bifida Status: Chronic Current Visit: No Code(s): Q05.9 - Spina bifida, unspecified Type of Wound Chief Complaint: Right ischium ulcer History of Wound: Marcos is a 23-year-old with past medical history of spina bifida, paraplegia, and Stage 3 right ischial pressure ulceration. The patient has been long-term at our facility, with care provided by other providers and most recently by Alondra Menjivar NP. Transfer of care today due to insurance change. No new complaints at this time. Has had one application of epi fix so far. Progress of Wound: Stable. No new complaints at this time. Now approved for up to 6 and wound VAC. - Physical Exam Vital Signs Temp Pulse Resp BP 98.9 F 103 H 18 103/65 09/20/18 09:53 09/20/18 09:53 09/20/18 09:53 09/20/18 09:53 General: Alert, Oriented x3, Cooperative, No apparent distress HEENT: Atraumatic, Normocephalic Oral: Moist Mucosa Neck: Supple Lungs: Normal air movement Abdomen: Non Tender Extremities: No cyanosis Skin: Ulcer/ Wound Wound Measurements and Assessment WC - Nurse 1 - General Ulcer Measurement Start: 08/30/18 09:57 Freq: Status: Active Protocol: Activity Type Activity Date Activity User E-Sign Co-Sign Detail Recorded Client Recorded Date Recorded By Document 09/20/18 09:53 [id number] 09/20/18 10:06 DL 09/20/18 09:53 Wound Center Nurse 1 [Ulcer Assessment] #6 RIGHT ISCHIUM -Current Size (cm) - Length 3.6 -Current Size (cm) - Width 7 -Current Size (cm) - Depth 1.4 -Total Square Cm 25.2 -Photo Taken No -Exudate Amt Medium (34-66%) -Exudate Type Serosanguineous -Wound Margin Thickened -Granulation Amt Small (1-33%) -Granulation Quality [place] -Necrosis Amt Large (67-100%) -Necrotic Tissue Type Adherent Slough -Structure Exposed N/A -Texture (Ida-wound Skin Appearance) Scarring -Moisture (Ida-wound Skin Appearance No Abnormality ) Dry/Scaly -Color (Ida-wound Skin Appearance) No Abnormality -Temperature (Ida-wound Skin No Abnormality Appearance) (Pt Warm) -Tenderness on Palpation (Ida-wound No Skin Appearance) -Ulcer Cleansing Wound Cleanser -Foul Odor after Cleansing No -Anesthetic Used 4% Lidocaine Solution WC - Nurse 2 - General Ulcer CM Notes Start: 08/30/18 09:57 Freq: Status: Active Protocol: Activity Type Activity Date Activity User E-Sign Co-Sign Detail Recorded Client Recorded Date Recorded By Document 09/20/18 10:13 MW [id number] 09/20/18 10:26 MW 09/20/18 10:13 Wound Center Nurse 2 [Procedure/Treatment] -Time 10:13 -Correct Patient Yes -Correct Side, Site, Position Yes -Correct Procedure Yes -Procedure Performed Yes -Type of Procedure Debridement -Clinical Debridement Subcutaneous -Post Debridement Size (cm) - Length 6.5 -Post Debridement Size (cm) - Width 4.0 -Post Debridement Size (cm) - Depth 1.3 -Total Square Cm 26.00 -Wound/Ulcer Outcome Not Healed -Ulcer Cleansing Rinsed/ Irrigated with Saline -Foul Odor after Cleansing No -Bioengineered Tissue Yes -Type of bioengineered Tissue EPIFIX -Expiration Date 05/23/23 -Product Lot Number [id number] -Percent Used 100 -Saline Lot Number [id number] -Bleeding Controlled with Pressure Silver Nitrate -Offloading No -Treatment Response Procedure Tolerated Well [See Physician Procedure note for Specifics] Pain Scale: 0-10 Numeric [Pain] -Is Patient Pain Free? Yes Musculoskeletal: No Muscle Wasting Neurological: Cranial nerves II-XII grossly intact Psych/Mental Status: Normal Affect Debridement Note Post-Debridement Measurements/Treatment WC - Nurse 2 - General Ulcer CM Notes Start: 08/30/18 09:57 Freq: Status: Active Protocol: Activity Type Activity Date Activity User E-Sign Co-Sign Detail Recorded Client Recorded Date Recorded By Document 08/30/18 10:21 MW [id number] 08/30/18 10:28 MW Document 09/06/18 10:11 MW [id number] 09/06/18 10:22 MW Document 09/20/18 10:13 MW [id number] 09/20/18 10:26 MW 08/30/18 09/06/18 09/20/18 10:21 10:11 10:13 Wound Center Nurse 2 #6 RIGHT ISCHIUM -Time 10: 10:11 10:13 -Correct Patient Yes Yes Yes -Correct Side, Site, Position Yes Yes Yes -Correct Procedure Yes Yes Yes -Procedure Performed Yes Yes Yes -Type of Procedure Debridement Debridement Debridement -Clinical Debridement Subcutaneous Subcutaneous Subcutaneous -Post Debridement Size (cm) - Length 4.5 3.5 6.5 -Post Debridement Size (cm) - Width 6.0 6.3 4.0 -Post Debridement Size (cm) - Depth 0.9 0.9 1.3 -Total Square Cm 27.00 22.05 26.00 -Wound/Ulcer Outcome Not Healed Not Healed Not Healed -Ulcer Cleansing Rinsed/ Rinsed/ Rinsed/ Irrigated with Irrigated with Irrigated with Saline Saline Saline -Foul Odor after Cleansing No No No -Bioengineered Tissue No No Yes -Type of bioengineered Tissue EPIFIX -Expiration Date 05/23/23 -Product Lot Number [id number] -Percent Used 100 -Saline Lot Number [id number] -Bleeding Controlled with Pressure Pressure Pressure Silver Nitrate -Offloading No -Treatment Response Procedure Procedure Procedure Tolerated Well Tolerated Well Tolerated Well Pain Scale: 0-10 Numeric Is Patient Pain Free? Yes Yes Yes Wound debrided: Right buttock Wound Grade/Stage: Stage III Type of Debridement: Excisional debridement Anesthesia Used: 4% Lidocaine Solution Depth: Down to and including healthy tissue, in the subcutaneous layer Percentage of wound debrided: 100 Instrument Used: 7mm curette Tissue Removed: Slough and devitalized tissue Severity: Fat Layer Exposed Amount of bleeding with debridement: Mild Bleeding Controlled with: Pressure Patient tolerated procedure well Assessment/Plan Active Problems Decubitus ulcer of right ischium, stage 3 (Chronic) Assessment: Decubitus ulcer stage III right ischium. Spina bifida. Paraplegia. History of osteomyelitis. Plan: Debridement done as doumented above, procedure was well-tolerated. Next application of epi fix done using the mesh and 100% of product. Wound veil over top secured with Steri-Strips and moistened with saline. Black foam and wound VAC over top. Leave in place for a week. Continue offloading. Increased protein intake recommended. Follow up in 1 week for a courtesy visit and in 2 weeks with me. Advised to call with any questions or concerns. This note was generated with [employer] dictation software. It may contain incorrect words, spelling, and punctuation that were not noted in checking the note before signing.
--- NOTE | 2018-09-20 12:52 | PN.PCM_ITS ---
(1) Decubitus ulcer of right ischium, stage 3 Status: Chronic Current Visit: Yes Code(s): L89.313 - Pressure ulcer of right buttock, stage 3 (2) Spina bifida Status: Chronic Current Visit: No Code(s): Q05.9 - Spina bifida, unspecified Type of Wound Chief Complaint: Right ischium ulcer History of Wound: Marcos is a 23-year-old with past medical history of spina bifida, paraplegia, and Stage 3 right ischial pressure ulceration. The patient has been long-term at our facility, with care provided by other providers and most recently by Alondra Menjivar NP. Transfer of care today due to insurance change. No new complaints at this time. Has had one application of epi fix so far. Progress of Wound: Stable. No new complaints at this time. Now approved for up to 6 and wound VAC. - Physical Exam Vital Signs Temp Pulse Resp BP 98.9 F 103 H 18 103/65 09/20/18 09:53 09/20/18 09:53 09/20/18 09:53 09/20/18 09:53 General: Alert, Oriented x3, Cooperative, No apparent distress HEENT: Atraumatic, Normocephalic Oral: Moist Mucosa Neck: Supple Lungs: Normal air movement Abdomen: Non Tender Extremities: No cyanosis Skin: Ulcer/ Wound Wound Measurements and Assessment WC - Nurse 1 - General Ulcer Measurement Start: 08/30/18 09:57 Freq: Status: Active Protocol: Activity Type Activity Date Activity User E-Sign Co-Sign Detail Recorded Client Recorded Date Recorded By Document 09/20/18 09:53 [id number] 09/20/18 10:06 DL 09/20/18 09:53 Wound Center Nurse 1 [Ulcer Assessment] #6 RIGHT ISCHIUM -Current Size (cm) - Length 3.6 -Current Size (cm) - Width 7 -Current Size (cm) - Depth 1.4 -Total Square Cm 25.2 -Photo Taken No -Exudate Amt Medium (34-66%) -Exudate Type Serosanguineous -Wound Margin Thickened -Granulation Amt Small (1-33%) -Granulation Quality Pale [place] -Necrosis Amt Large (67-100%) -Necrotic Tissue Type Adherent Slough -Structure Exposed N/A -Texture (Ida-wound Skin Appearance) Scarring -Moisture (Ida-wound Skin Appearance No Abnormality ) Dry/Scaly -Color (Ida-wound Skin Appearance) No Abnormality -Temperature (Ida-wound Skin No Abnormality Appearance) (Pt Warm) -Tenderness on Palpation (Ida-wound No Skin Appearance) -Ulcer Cleansing Wound Cleanser -Foul Odor after Cleansing No -Anesthetic Used 4% Lidocaine Solution WC - Nurse 2 - General Ulcer CM Notes Start: 08/30/18 09:57 Freq: Status: Active Protocol: Activity Type Activity Date Activity User E-Sign Co-Sign Detail Recorded Client Recorded Date Recorded By Document 09/20/18 10:13 MW [id number] 09/20/18 10:26 MW 09/20/18 10:13 Wound Center Nurse 2 [Procedure/Treatment] -Time 10:13 -Correct Patient Yes -Correct Side, Site, Position Yes -Correct Procedure Yes -Procedure Performed Yes -Type of Procedure Debridement -Clinical Debridement Subcutaneous -Post Debridement Size (cm) - Length 6.5 -Post Debridement Size (cm) - Width 4.0 -Post Debridement Size (cm) - Depth 1.3 -Total Square Cm 26.00 -Wound/Ulcer Outcome Not Healed -Ulcer Cleansing Rinsed/ Irrigated with Saline -Foul Odor after Cleansing No -Bioengineered Tissue Yes -Type of bioengineered Tissue EPIFIX -Expiration Date 05/23/23 -Product Lot Number [id number] -Percent Used 100 -Saline Lot Number [id number] -Bleeding Controlled with Pressure Silver Nitrate -Offloading No -Treatment Response Procedure Tolerated Well [See Physician Procedure note for Specifics] Pain Scale: 0-10 Numeric [Pain] -Is Patient Pain Free? Yes Musculoskeletal: No Muscle Wasting Neurological: Cranial nerves II-XII grossly intact Psych/Mental Status: Normal Affect Debridement Note Post-Debridement Measurements/Treatment WC - Nurse 2 - General Ulcer CM Notes Start: 08/30/18 09:57 Freq: Status: Active Protocol: Activity Type Activity Date Activity User E-Sign Co-Sign Detail Recorded Client Recorded Date Recorded By Document 08/30/18 10:21 MW [id number] 08/30/18 10:28 MW Document 09/06/18 10:11 MW [id number] 09/06/18 10:22 MW Document 09/20/18 10:13 MW [id number] 09/20/18 10:26 MW 08/30/18 09/06/18 09/20/18 10:21 10:11 10:13 Wound Center Nurse 2 #6 RIGHT ISCHIUM -Time 10: 10:11 10:13 -Correct Patient Yes Yes Yes -Correct Side, Site, Position Yes Yes Yes -Correct Procedure Yes Yes Yes -Procedure Performed Yes Yes Yes -Type of Procedure Debridement Debridement Debridement -Clinical Debridement Subcutaneous Subcutaneous Subcutaneous -Post Debridement Size (cm) - Length 4.5 3.5 6.5 -Post Debridement Size (cm) - Width 6.0 6.3 4.0 -Post Debridement Size (cm) - Depth 0.9 0.9 1.3 -Total Square Cm 27.00 22.05 26.00 -Wound/Ulcer Outcome Not Healed Not Healed Not Healed -Ulcer Cleansing Rinsed/ Rinsed/ Rinsed/ Irrigated with Irrigated with Irrigated with Saline Saline Saline -Foul Odor after Cleansing No No No -Bioengineered Tissue No No Yes -Type of bioengineered Tissue EPIFIX -Expiration Date 05/23/23 -Product Lot Number [id number] -Percent Used 100 -Saline Lot Number [id number] -Bleeding Controlled with Pressure Pressure Pressure Silver Nitrate -Offloading No -Treatment Response Procedure Procedure Procedure Tolerated Well Tolerated Well Tolerated Well Pain Scale: 0-10 Numeric Is Patient Pain Free? Yes Yes Yes Wound debrided: Right buttock Wound Grade/Stage: Stage III Type of Debridement: Excisional debridement Anesthesia Used: 4% Lidocaine Solution Depth: Down to and including healthy tissue, in the subcutaneous layer Percentage of wound debrided: 100 Instrument Used: 7mm curette Tissue Removed: Slough and devitalized tissue Severity: Fat Layer Exposed Amount of bleeding with debridement: Mild Bleeding Controlled with: Pressure Patient tolerated procedure well Assessment/Plan Active Problems Decubitus ulcer of right ischium, stage 3 (Chronic) Assessment: Decubitus ulcer stage III right ischium. Spina bifida. Paraplegia. History of osteomyelitis. Plan: Debridement done as doumented above, procedure was well-tolerated. Next application of epi fix done using the mesh and 100% of product. Wound veil over top secured with Steri-Strips and moistened with saline. Black foam and wound VAC over top. Leave in place for a week. Continue offloading. Increased protein intake recommended. Follow up in 1 week for a courtesy visit and in 2 weeks with me. Advised to call with any questions or concerns. This note was generated with [employer] dictation software. It may contain incorrect words, spelling, and punctuation that were not noted in checking the note before signing.
== END 2018-09-21 23:59 ==
LOC: WC 09:30
PROVIDERS: Family Provider Family Medicine; PCP Family Medicine; Visit Provider Internal Medicine
DX: L89.213 Pressure ulcer of right hip, stage 3 (principal); Q05.9 Spina bifida, unspecified; G82.20 Paraplegia, unspecified
CPT/HCPCS: 11042; 11045; 15271; Q4131

== ENCOUNTER 2018-10-18 09:30 | Outpatient (RCR) | payer OTHER, MEDICAID, SELFPAY ==
[2018-09-22 00:54] VITALS: BP 103/65; PULSE 103; RESP 18; TEMP 37.2
[2018-09-27 13:17] VITALS: BP 109/79; PULSE 127; RESP 16; TEMP 37.5
--- NOTE | 2018-09-27 19:19 | PCM.WC.PN ---
(1) Decubitus ulcer of right ischium, stage 3 Status: Chronic Current Visit: Yes Code(s): L89.313 - Pressure ulcer of right buttock, stage 3 (2) Spina bifida Status: Chronic Current Visit: Yes Code(s): Q05.9 - Spina bifida, unspecified Type of Wound Date of Service: 09/27/18 Chief Complaint: Right ischium ulcer History of Wound: Marcos is a 23-year-old with past medical history of spina bifida, paraplegia, and Stage 3 right ischial pressure ulceration. The patient has been long-term at our facility, with care provided by other providers and most recently by Alondra Menjivar NP. Transfer of care today due to insurance change. No new complaints at this time. Has had one application of epi fix so far. Progress of Wound: Courtesy visit for dr oleghe. [place]. Patient's father did note that he has had chills intermittently for the last couple of days and a temperature of 99.5, otherwise no new complaints. Did well with first epifix application and wound VAC. - Physical Exam Vital Signs Temp Pulse Resp BP 99.5 F H 127 H 16 109/79 09/27/18 13:17 09/27/18 13:17 09/27/18 13:17 09/27/18 13:17 General: Alert, Oriented x3, Cooperative, No apparent distress Cardiovascular: Regular rate Skin: Ulcer/ Wound - See nursing documentation, some adherent slough to wound bed of stage III pressure ulcer right ischium Wound Measurements and Assessment WC - Nurse 1 - General Ulcer Measurement Start: 09/27/18 13:17 Freq: Status: Active Protocol: Activity Type Activity Date Activity User E-Sign Co-Sign Detail Recorded Client Recorded Date Recorded By Document 09/27/18 13:17 [facility] [id number] 09/27/18 13:21 [facility] 09/27/18 13:17 Wound Center Nurse 1 [Ulcer Assessment] #6 RIGHT ISCHIUM -Combined with other wound No -Current Size (cm) - Length 7.4 -Current Size (cm) - Width 6.5 -Current Size (cm) - Depth 0.7 -Total Square Cm 48.10 -Photo Taken No -Epithelialization Small 1-33% -Tunneling No -Undermining/Tunneling No -Circular Undermining No -Classification - Thickness Full Thickness without Exposed Support Structure -Exudate Amt Medium (34-66%) -Exudate Type Serosanguineous -Wound Margin Distinct, Outline Attached -Granulation Amt Large (67-100%) -Granulation Quality [place] -Slough/Fibrin Yes -Necrosis Amt Small (1-33%) -Necrotic Tissue Type Adherent Slough -Texture (Ida-wound Skin Appearance) Localized Edema Scarring -Moisture (Ida-wound Skin Appearance Maceration ) -Color (Ida-wound Skin Appearance) Palor -Temperature (Ida-wound Skin No Abnormality Appearance) (Pt Warm) -Tenderness on Palpation (Ida-wound No Skin Appearance) -Ulcer Cleansing Wound Cleanser -Foul Odor after Cleansing No -Anesthetic Used 4% Lidocaine Solution - Nurse 2 - General Ulcer CM Notes Start: 09/27/18 13:17 Freq: Status: Active Protocol: Activity Type Activity Date Activity User E-Sign Co-Sign Detail Recorded Client Recorded Date Recorded By Document 09/27/18 13:41 [id number] 09/27/18 13:45 09/27/18 13:41 Wound Center Nurse 2 [Procedure/Treatment] -Time 13:41 -Correct Patient Yes -Correct Side, Site, Position Yes -Correct Procedure Yes -Procedure Performed Yes -Type of Procedure Debridement -Clinical Debridement Subcutaneous -Post Debridement Size (cm) - Length 4.5 -Post Debridement Size (cm) - Width 6.5 -Post Debridement Size (cm) - Depth 1.7 -Total Square Cm 29.25 -Wound/Ulcer Outcome Not Healed -Ulcer Cleansing Rinsed/ Irrigated with Saline -Foul Odor after Cleansing No -Bioengineered Tissue Yes -Type of bioengineered Tissue EPIFIX -Expiration Date 05/23/23 -Product Lot Number [id number] -Percent Used 100 -Saline Lot Number [id number] -Topical Lidocaine (%) 4 -Bleeding Controlled with Pressure -Offloading Yes -Treatment Response Procedure Tolerated Well [See Physician Procedure note for Specifics] Pain Scale: 0-10 Numeric [Pain] -Is Patient Pain Free? Yes Psych/Mental Status: Normal Affect, Appropriate, Alert and oriented to time, place, person, mood and affect Debridement Note Post-Debridement Measurements/Treatment - Nurse 2 - General Ulcer CM Notes Start: 09/27/18 13:17 Freq: Status: Active Protocol: Activity Type Activity Date Activity User E-Sign Co-Sign Detail Recorded Client Recorded Date Recorded By Document 09/27/18 13:41 [id number] 09/27/18 13:45 09/27/18 13:41 Wound Center Nurse 2 #6 RIGHT ISCHIUM -Time 13:41 -Correct Patient Yes -Correct Side, Site, Position Yes -Correct Procedure Yes -Procedure Performed Yes -Type of Procedure Debridement -Clinical Debridement Subcutaneous -Post Debridement Size (cm) - Length 4.5 -Post Debridement Size (cm) - Width 6.5 -Post Debridement Size (cm) - Depth 1.7 -Total Square Cm 29.25 -Wound/Ulcer Outcome Not Healed -Ulcer Cleansing Rinsed/ Irrigated with Saline -Foul Odor after Cleansing No -Bioengineered Tissue Yes -Type of bioengineered Tissue EPIFIX -Expiration Date 05/23/23 -Product Lot Number [id number] -Percent Used 100 -Saline Lot Number [id number] -Topical Lidocaine (%) 4 -Bleeding Controlled with Pressure -Offloading Yes -Treatment Response Procedure Tolerated Well Pain Scale: 0-10 Numeric Is Patient Pain Free? Yes Wound debrided: Stage III right ischium pressure ulcer Laterality: Right Type of Debridement: Excisional debridement Anesthesia Used: 5% Lidocaine Gel Depth: in the subcutaneous layer Percentage of wound debrided: 100 Instrument Used: 7mm curette Tissue Removed: Slough and devitalized tissue Severity: Fat Layer Exposed Amount of bleeding with debridement: Mild Bleeding Controlled with: Pressure Patient tolerated procedure well Assessment/Plan Active Problems Decubitus ulcer of right ischium, stage 3 (Chronic) Spina bifida (Chronic) Assessment: Decubitus ulcer stage III right ischium. Spina bifida. Paraplegia. History of osteomyelitis. Plan: Debridement done as doumented above, procedure was well-tolerated. Second application of epi fix done using the wound veil and steris and 100% of product. Wound veil over top secured with Steri-Strips and moistened with saline. Black foam and wound VAC over top. Leave in place for a week. Continue offloading. Increased protein intake recommended. Follow up in [address] Keith. Advised to call with any questions or concerns. Did discuss with patient's father that if his chills worsen, he should be seen by primary care or urgent care services. Ulcer does not appear to be infected at this time. This note was generated with [employer] dictation software. It may contain incorrect words, spelling, and punctuation that were not noted in checking the note before signing. Code Visit 150xxx-152xx: 84290 Skin sub graft trnk/arm/leg
--- NOTE | 2018-09-28 11:23 | PN.PCM_ITS ---
(1) Decubitus ulcer of right ischium, stage 3 Status: Chronic Current Visit: Yes Code(s): L89.313 - Pressure ulcer of right buttock, stage 3 (2) Spina bifida Status: Chronic Current Visit: Yes Code(s): Q05.9 - Spina bifida, unspecified Type of Wound Date of Service: 09/27/18 Chief Complaint: Right ischium ulcer History of Wound: Marcos is a 23-year-old with past medical history of spina bifida, paraplegia, and Stage 3 right ischial pressure ulceration. The patient has been long-term at our facility, with care provided by other providers and most recently by Alondra Menjivar NP. Transfer of care today due to insurance change. No new complaints at this time. Has had one application of epi fix so far. Progress of Wound: Courtesy visit for dr oleghe. [place]. Patient's father did note that he has had chills intermittently for the last couple of days and a temperature of 99.5, otherwise no new complaints. Did well with first epifix application and wound VAC. - Physical Exam Vital Signs Temp Pulse Resp BP 99.5 F H 127 H 16 109/79 09/27/18 13:17 09/27/18 13:17 09/27/18 13:17 09/27/18 13:17 General: Alert, Oriented x3, Cooperative, No apparent distress Cardiovascular: Regular rate Skin: Ulcer/ Wound - See nursing documentation, some adherent slough to wound bed of stage III pressure ulcer right ischium Wound Measurements and Assessment WC - Nurse 1 - General Ulcer Measurement Start: 09/27/18 13:17 Freq: Status: Active Protocol: Activity Type Activity Date Activity User E-Sign Co-Sign Detail Recorded Client Recorded Date Recorded By Document 09/27/18 13:17 [facility] [id number] 09/27/18 13:21 [facility] 09/27/18 13:17 Wound Center Nurse 1 [Ulcer Assessment] #6 RIGHT ISCHIUM -Combined with other wound No -Current Size (cm) - Length 7.4 -Current Size (cm) - Width 6.5 -Current Size (cm) - Depth 0.7 -Total Square Cm 48.10 -Photo Taken No -Epithelialization Small 1-33% -Tunneling No -Undermining/Tunneling No -Circular Undermining No -Classification - Thickness Full Thickness without Exposed Support Structure -Exudate Amt Medium (34-66%) -Exudate Type Serosanguineous -Wound Margin Distinct, Outline Attached -Granulation Amt Large (67-100%) -Granulation Quality [place] -Slough/Fibrin Yes -Necrosis Amt Small (1-33%) -Necrotic Tissue Type Adherent Slough -Texture (Ida-wound Skin Appearance) Localized Edema Scarring -Moisture (Ida-wound Skin Appearance Maceration ) -Color (Ida-wound Skin Appearance) Palor -Temperature (Ida-wound Skin No Abnormality Appearance) (Pt Warm) -Tenderness on Palpation (Ida-wound No Skin Appearance) -Ulcer Cleansing Wound Cleanser -Foul Odor after Cleansing No -Anesthetic Used 4% Lidocaine Solution - Nurse 2 - General Ulcer CM Notes Start: 09/27/18 13:17 Freq: Status: Active Protocol: Activity Type Activity Date Activity User E-Sign Co-Sign Detail Recorded Client Recorded Date Recorded By Document 09/27/18 13:41 [email or web address] 09/27/18 13:45 09/27/18 13:41 Wound Center Nurse 2 [Procedure/Treatment] -Time 13:41 -Correct Patient Yes -Correct Side, Site, Position Yes -Correct Procedure Yes -Procedure Performed Yes -Type of Procedure Debridement -Clinical Debridement Subcutaneous -Post Debridement Size (cm) - Length 4.5 -Post Debridement Size (cm) - Width 6.5 -Post Debridement Size (cm) - Depth 1.7 -Total Square Cm 29.25 -Wound/Ulcer Outcome Not Healed -Ulcer Cleansing Rinsed/ Irrigated with Saline -Foul Odor after Cleansing No -Bioengineered Tissue Yes -Type of bioengineered Tissue EPIFIX -Expiration Date 05/23/23 -Product Lot Number [id number] -Percent Used 100 -Saline Lot Number [id number] -Topical Lidocaine (%) 4 -Bleeding Controlled with Pressure -Offloading Yes -Treatment Response Procedure Tolerated Well [See Physician Procedure note for Specifics] Pain Scale: 0-10 Numeric [Pain] -Is Patient Pain Free? Yes Psych/Mental Status: Normal Affect, Appropriate, Alert and oriented to time, place, person, mood and affect Debridement Note Post-Debridement Measurements/Treatment - Nurse 2 - General Ulcer CM Notes Start: 09/27/18 13:17 Freq: Status: Active Protocol: Activity Type Activity Date Activity User E-Sign Co-Sign Detail Recorded Client Recorded Date Recorded By Document 09/27/18 13:41 [id number] 09/27/18 13:45 09/27/18 13:41 Wound Center Nurse 2 #6 RIGHT ISCHIUM -Time 13:41 -Correct Patient Yes -Correct Side, Site, Position Yes -Correct Procedure Yes -Procedure Performed Yes -Type of Procedure Debridement -Clinical Debridement Subcutaneous -Post Debridement Size (cm) - Length 4.5 -Post Debridement Size (cm) - Width 6.5 -Post Debridement Size (cm) - Depth 1.7 -Total Square Cm 29.25 -Wound/Ulcer Outcome Not Healed -Ulcer Cleansing Rinsed/ Irrigated with Saline -Foul Odor after Cleansing No -Bioengineered Tissue Yes -Type of bioengineered Tissue EPIFIX -Expiration Date 05/23/23 -Product Lot Number [id number] -Percent Used 100 -Saline Lot Number [id number] -Topical Lidocaine (%) 4 -Bleeding Controlled with Pressure -Offloading Yes -Treatment Response Procedure Tolerated Well Pain Scale: 0-10 Numeric Is Patient Pain Free? Yes Wound debrided: Stage III right ischium pressure ulcer Laterality: Right Type of Debridement: Excisional debridement Anesthesia Used: 5% Lidocaine Gel Depth: in the subcutaneous layer Percentage of wound debrided: 100 Instrument Used: 7mm curette Tissue Removed: Slough and devitalized tissue Severity: Fat Layer Exposed Amount of bleeding with debridement: Mild Bleeding Controlled with: Pressure Patient tolerated procedure well Assessment/Plan Active Problems Decubitus ulcer of right ischium, stage 3 (Chronic) Spina bifida (Chronic) Assessment: Decubitus ulcer stage III right ischium. Spina bifida. Paraplegia. History of osteomyelitis. Plan: Debridement done as doumented above, procedure was well-tolerated. Second application of epi fix done using the wound veil and steris and 100% of produ ct. Wound veil over top secured with Steri-Strips and moistened with saline. Black foam and wound VAC over top. Leave in place for a week. Continue offloading. Increased protein intake recommended. Follow up in [address] Keith. Advised to call with any questions or concerns. Did discuss with patient's father that if his chills worsen, he should be seen by primary care or urgent care services. Ulcer does not appear to be infected at this time. This note was generated with [employer] dictation software. It may contain incorrect words, spelling, and punctuation that were not noted in checking the note before signing. Code Visit 150xxx-152xx: [id number] Skin sub graft trnk/arm/leg
[2018-10-04 09:43] VITALS: BP 100/48; PULSE 96; RESP 16; TEMP 36.5
--- NOTE | 2018-10-04 10:50 | PCM.WC.PN ---
(1) Decubitus ulcer of right ischium, stage 3 Status: Chronic Current Visit: Yes Code(s): L89.313 - Pressure ulcer of right buttock, stage 3 (2) Spina bifida Status: Chronic Current Visit: Yes Code(s): Q05.9 - Spina bifida, unspecified Type of Wound Chief Complaint: Right ischium ulcer History of Wound: Marcos is a 23-year-old with past medical history of spina bifida, paraplegia, and Stage 3 right ischial pressure ulceration. The patient has been long-term at our facility, with care provided by other providers and most recently by Alondra Menjivar NP. Transfer of care today due to insurance change. No new complaints at this time. Has had one application of epi fix so far. Progress of Wound: Stable. No concerns at this time. - Physical Exam Vital Signs Temp Pulse Resp BP 97.7 F L 96 16 100/48 L 10/04/18 09:43 10/04/18 09:43 10/04/18 09:43 10/04/18 09:43 General: Alert, Oriented x3, Cooperative, No apparent distress HEENT: Atraumatic Oral: Moist Mucosa Neck: Supple Lungs: Normal air movement Abdomen: Non Tender Extremities: No cyanosis Skin: Ulcer/ Wound Wound Measurements and Assessment WC - Nurse 1 - General Ulcer Measurement Start: 09/27/18 13:17 Freq: Status: Active Protocol: Activity Type Activity Date Activity User E-Sign Co-Sign Detail Recorded Client Recorded Date Recorded By Document 10/04/18 09:43 [id number] 10/04/18 09:46 10/04/18 09:43 Wound Center Nurse 1 [Ulcer Assessment] #6 RIGHT ISCHIUM -Combined with other wound No -Current Size (cm) - Length 7 -Current Size (cm) - Width 5.4 -Current Size (cm) - Depth 1.4 -Total Square Cm 37.8 -Photo Taken No -Epithelialization None Present -Tunneling No -Undermining/Tunneling No -Circular Undermining No -Exudate Amt Large (67-100%) -Exudate Type Serosanguineous -Wound Margin Distinct, Outline Attached -Granulation Amt Medium (34-66%) -Granulation Quality Pale [place] -Slough/Fibrin Yes -Necrosis Amt Medium (34-66%) -Necrotic Tissue Type Adherent Slough -Texture (Ida-wound Skin Appearance) No Abnormality Assessed -Moisture (Ida-wound Skin Appearance Maceration ) -Color (Ida-wound Skin Appearance) No Abnormality Assessed -Temperature (Ida-wound Skin No Abnormality Appearance) (Pt Warm) -Tenderness on Palpation (Ida-wound No Skin Appearance) -Ulcer Cleansing soap -Foul Odor after Cleansing No -Anesthetic Used 4% Lidocaine Solution [Edema Assessment] -Lower Limb Edema Present NA - Nurse 2 - General Ulcer CM Notes Start: 09/27/18 13:17 Freq: Status: Active Protocol: Activity Type Activity Date Activity User E-Sign Co-Sign Detail Recorded Client Recorded Date Recorded By Document 10/04/18 09:59 MW [id number] 10/04/18 10:10 MW 10/04/18 09:59 Wound Center Nurse 2 [Procedure/Treatment] #6 RIGHT ISCHIUM -Time 09:59 -Correct Patient Yes -Correct Side, Site, Position Yes -Correct Procedure Yes -Procedure Performed Yes -Type of Procedure Debridement -Clinical Debridement Subcutaneous -Post Debridement Size (cm) - Length 5.0 -Post Debridement Size (cm) - Width 7.3 -Post Debridement Size (cm) - Depth 1.2 -Total Square Cm 36.50 -Wound/Ulcer Outcome Not Healed -Ulcer Cleansing Rinsed/ Irrigated with Saline -Foul Odor after Cleansing No -Bioengineered Tissue Yes -Type of bioengineered Tissue EPIFIX -Expiration Date 05/23/23 -Product Lot Number [id number] -Percent Used 100 -Saline Lot Number [id number] -Bleeding Controlled with Pressure -Other wheel chair cushion -Offloading Yes -Treatment Response Procedure Tolerated Well [See Physician Procedure note for Specifics] Pain Scale: 0-10 Numeric [Pain] -Is Patient Pain Free? Yes Neurological: Cranial nerves II-XII grossly intact Psych/Mental Status: Normal Affect Debridement Note Post-Debridement Measurements/Treatment - Nurse 2 - General Ulcer CM Notes Start: 09/27/18 13:17 Freq: Status: Active Protocol: Activity Type Activity Date Activity User E-Sign Co-Sign Detail Recorded Client Recorded Date Recorded By Document 09/27/18 13:41 TM [id number] 09/27/18 13:45 TM Document 10/04/18 09:59 MW [id number] 10/04/18 10:10 MW 09/27/18 10/04/18 13:41 09:59 Wound Center Nurse 2 #6 RIGHT ISCHIUM -Time 13:41 09:59 -Correct Patient Yes Yes -Correct Side, Site, Position Yes Yes -Correct Procedure Yes Yes -Procedure Performed Yes Yes -Type of Procedure Debridement Debridement -Clinical Debridement Subcutaneous Subcutaneous -Post Debridement Size (cm) - Length 4.5 5.0 -Post Debridement Size (cm) - Width 6.5 7.3 -Post Debridement Size (cm) - Depth 1.7 1.2 -Total Square Cm 29.25 36.50 -Wound/Ulcer Outcome Not Healed Not Healed -Ulcer Cleansing Rinsed/ Rinsed/ Irrigated with Irrigated with Saline Saline -Foul Odor after Cleansing No No -Bioengineered Tissue Yes Yes -Type of bioengineered Tissue EPIFIX EPIFIX -Expiration Date 05/23/23 05/23/23 -Product Lot Number [id number] -Percent Used 100 100 -Saline Lot Number [id number] -Topical Lidocaine (%) 4 -Bleeding Controlled with Pressure Pressure -Other wheel chair cushion -Offloading Yes Yes -Treatment Response Procedure Procedure Tolerated Well Tolerated Well Pain Scale: 0-10 Numeric Is Patient Pain Free? Yes Yes Wound debrided: Right buttock Wound Grade/Stage: Stage III Type of Debridement: Excisional debridement Anesthesia Used: 4% Lidocaine Solution Depth: Down to and including healthy tissue, in the subcutaneous layer Percentage of wound debrided: 100 Instrument Used: 7mm curette Tissue Removed: Slough and devitalized tissue Severity: Fat Layer Exposed Amount of bleeding with debridement: Mild Bleeding Controlled with: Pressure Patient tolerated procedure well Assessment/Plan Active Problems Decubitus ulcer of right ischium, stage 3 (Chronic) Spina bifida (Chronic) Assessment: Decubitus ulcer stage III right ischium. Spina bifida. Paraplegia. History of osteomyelitis. Plan: Debridement done as doumented above, procedure was well-tolerated. Third application of epi-fix done today using 100% of product. Wound veil overtop, moistened with saline. Black foam and wound VAC over top. Leave in place for a week. Continue offloading. Increased protein intake recommended. Advised to call with any questions or concerns. Follow-up in 1 week. This note was generated with [employer] software. It may contain incorrect words, spelling, and punctuation that were not noted in checking the note before signing.
--- NOTE | 2018-10-04 10:54 | PN.PCM_ITS ---
(1) Decubitus ulcer of right ischium, stage 3 Status: Chronic Current Visit: Yes Code(s): L89.313 - Pressure ulcer of right buttock, stage 3 (2) Spina bifida Status: Chronic Current Visit: Yes Code(s): Q05.9 - Spina bifida, unspecified Type of Wound Chief Complaint: Right ischium ulcer History of Wound: Marcos is a 23-year-old with past medical history of spina bifida, paraplegia, and Stage 3 right ischial pressure ulceration. The patient has been long-term at our facility, with care provided by other providers and most recently by Alondra Menjivar NP. Transfer of care today due to insurance change. No new complaints at this time. Has had one application of epi fix so far. Progress of Wound: Stable. No concerns at this time. - Physical Exam Vital Signs Temp Pulse Resp BP 97.7 F L 96 16 100/48 L 10/04/18 09:43 10/04/18 09:43 10/04/18 09:43 10/04/18 09:43 General: Alert, Oriented x3, Cooperative, No apparent distress HEENT: Atraumatic Oral: Moist Mucosa Neck: Supple Lungs: Normal air movement Abdomen: Non Tender Extremities: No cyanosis Skin: Ulcer/ Wound Wound Measurements and Assessment WC - Nurse 1 - General Ulcer Measurement Start: 09/27/18 13:17 Freq: Status: Active Protocol: Activity Type Activity Date Activity User E-Sign Co-Sign Detail Recorded Client Recorded Date Recorded By Document 10/04/18 09:43 [id number] 10/04/18 09:46 10/04/18 09:43 Wound Center Nurse 1 [Ulcer Assessment] #6 RIGHT ISCHIUM -Combined with other wound No -Current Size (cm) - Length 7 -Current Size (cm) - Width 5.4 -Current Size (cm) - Depth 1.4 -Total Square Cm 37.8 -Photo Taken No -Epithelialization None Present -Tunneling No -Undermining/Tunneling No -Circular Undermining No -Exudate Amt Large (67-100%) -Exudate Type Serosanguineous -Wound Margin Distinct, Outline Attached -Granulation Amt Medium (34-66%) -Granulation Quality Pale [place] -Slough/Fibrin Yes -Necrosis Amt Medium (34-66%) -Necrotic Tissue Type Adherent Slough -Texture (Ida-wound Skin Appearance) No Abnormality Assessed -Moisture (Ida-wound Skin Appearance Maceration ) -Color (Ida-wound Skin Appearance) No Abnormality Assessed -Temperature (Ida-wound Skin No Abnormality Appearance) (Pt Warm) -Tenderness on Palpation (Ida-wound No Skin Appearance) -Ulcer Cleansing soap -Foul Odor after Cleansing No -Anesthetic Used 4% Lidocaine Solution [Edema Assessment] -Lower Limb Edema Present NA - Nurse 2 - General Ulcer CM Notes Start: 09/27/18 13:17 Freq: Status: Active Protocol: Activity Type Activity Date Activity User E-Sign Co-Sign Detail Recorded Client Recorded Date Recorded By Document 10/04/18 09:59 MW [id number] 10/04/18 10:10 MW 10/04/18 09:59 Wound Center Nurse 2 [Procedure/Treatment] #6 RIGHT ISCHIUM -Time 09:59 -Correct Patient Yes -Correct Side, Site, Position Yes -Correct Procedure Yes -Procedure Performed Yes -Type of Procedure Debridement -Clinical Debridement Subcutaneous -Post Debridement Size (cm) - Length 5.0 -Post Debridement Size (cm) - Width 7.3 -Post Debridement Size (cm) - Depth 1.2 -Total Square Cm 36.50 -Wound/Ulcer Outcome Not Healed -Ulcer Cleansing Rinsed/ Irrigated with Saline -Foul Odor after Cleansing No -Bioengineered Tissue Yes -Type of bioengineered Tissue EPIFIX -Expiration Date 05/23/23 -Product Lot Number [id number] -Percent Used 100 -Saline Lot Number [id number] -Bleeding Controlled with Pressure -Other wheel chair cushion -Offloading Yes -Treatment Response Procedure Tolerated Well [See Physician Procedure note for Specifics] Pain Scale: 0-10 Numeric [Pain] -Is Patient Pain Free? Yes Neurological: Cranial nerves II-XII grossly intact Psych/Mental Status: Normal Affect Debridement Note Post-Debridement Measurements/Treatment - Nurse 2 - General Ulcer CM Notes Start: 09/27/18 13:17 Freq: Status: Active Protocol: Activity Type Activity Date Activity User E-Sign Co-Sign Detail Recorded Client Recorded Date Recorded By Document 09/27/18 13:41 TM [id number] 09/27/18 13:45 TM Document 10/04/18 09:59 MW [id number] 10/04/18 10:10 MW 09/27/18 10/04/18 13:41 09:59 Wound Center Nurse 2 #6 RIGHT ISCHIUM -Time 13:41 09:59 -Correct Patient Yes Yes -Correct Side, Site, Position Yes Yes -Correct Procedure Yes Yes -Procedure Performed Yes Yes -Type of Procedure Debridement Debridement -Clinical Debridement Subcutaneous Subcutaneous -Post Debridement Size (cm) - Length 4.5 5.0 -Post Debridement Size (cm) - Width 6.5 7.3 -Post Debridement Size (cm) - Depth 1.7 1.2 -Total Square Cm 29.25 36.50 -Wound/Ulcer Outcome Not Healed Not Healed -Ulcer Cleansing Rinsed/ Rinsed/ Irrigated with Irrigated with Saline Saline -Foul Odor after Cleansing No No -Bioengineered Tissue Yes Yes -Type of bioengineered Tissue EPIFIX EPIFIX -Expiration Date 05/23/23 05/23/23 -Product Lot Number [id number] -Percent Used 100 100 -Saline Lot Number [id number] -Topical Lidocaine (%) 4 -Bleeding Controlled with Pressure Pressure -Other wheel chair cushion -Offloading Yes Yes -Treatment Response Procedure Procedure Tolerated Well Tolerated Well Pain Scale: 0-10 Numeric Is Patient Pain Free? Yes Yes Wound debrided: Right buttock Wound Grade/Stage: Stage III Type of Debridement: Excisional debridement Anesthesia Used: 4% Lidocaine Solution Depth: Down to and including healthy tissue, in the subcutaneous layer Percentage of wound debrided: 100 Instrument Used: 7mm curette Tissue Removed: Slough and devitalized tissue Severity: Fat Layer Exposed Amount of bleeding with debridement: Mild Bleeding Controlled with: Pressure Patient tolerated procedure well Assessment/Plan Active Problems Decubitus ulcer of right ischium, stage 3 (Chronic) Spina bifida (Chronic) Assessment: Decubitus ulcer stage III right ischium. Spina bifida. Paraplegia. History of osteomyelitis. Plan: Debridement done as doumented above, procedure was well-tolerated. Third application of epi-fix done today using 100% of product. Wound veil overtop, moistened with saline. Black foam and wound VAC over top. Leave in place for a week. Continue offloading. Increased protein intake recommended. Advised to call with any questions or concerns. Follow-up in 1 week. This note was generated with [employer] software. It may contain incorrect words, spelling, and punctuation that were not noted in checking the note before signing.
[2018-10-11 09:59] VITALS: BP 107/65; PULSE 93; RESP 16; TEMP 36.7
--- NOTE | 2018-10-11 10:55 | PCM.WC.PN ---
(1) Decubitus ulcer of right ischium, stage 3 Status: Chronic Current Visit: Yes Code(s): L89.313 - Pressure ulcer of right buttock, stage 3 (2) Spina bifida Status: Chronic Current Visit: Yes Code(s): Q05.9 - Spina bifida, unspecified Type of Wound Chief Complaint: Right ischium ulcer History of Wound: Marcos is a 23-year-old with past medical history of spina bifida, paraplegia, and Stage 3 right ischial pressure ulceration. The patient has been long-term at our facility, with care provided by other providers and most recently by Alondra Menjivar NP. Transfer of care today due to insurance change. No new complaints at this time. Has had one application of epi fix so far. Progress of Wound: Improving. - Physical Exam Vital Signs Temp Pulse Resp BP 98.1 F 93 16 107/65 10/11/18 09:59 10/11/18 09:59 10/11/18 09:59 10/11/18 09:59 General: Alert, Oriented x3, Cooperative, No apparent distress HEENT: Atraumatic, Normocephalic Oral: Moist Mucosa Neck: Supple Lungs: Normal air movement Skin: Ulcer/ Wound Wound Measurements and Assessment WC - Nurse 1 - General Ulcer Measurement Start: 09/27/18 13:17 Freq: Status: Active Protocol: Activity Type Activity Date Activity User E-Sign Co-Sign Detail Recorded Client Recorded Date Recorded By Document 10/11/18 09:59 [email or web address] [id number] 10/11/18 10:11 [email or web address] 10/11/18 09:59 Wound Center Nurse 1 [Ulcer Assessment] #6 RIGHT ISCHIUM -Combined with other wound No -Current Size (cm) - Length 5.5 -Current Size (cm) - Width 5.8 -Current Size (cm) - Depth 2.0 -Total Square Cm 31.90 -Photo Taken No -Epithelialization Small 1-33% -Tunneling No -Undermining/Tunneling Yes -Undermining/Tunneling Starts (O' 11 clock) -Undermining/Tunneling Ends (O'clock) 1 -Maximum Distance (cm) 0.6 -Circular Undermining No -Classification - Thickness Full Thickness without Exposed Support Structure -Classification - Pressure Ulcer Stage 2 -Exudate Amt Medium (34-66%) -Exudate Type Serosanguineous -Wound Margin Distinct, Outline Attached -Granulation Amt Medium (34-66%) -Granulation Quality Pale [place] -Slough/Fibrin Yes -Necrosis Amt None Present (0 %) -Necrotic Tissue Type Adherent Slough -Structure Exposed N/A -Texture (Ida-wound Skin Appearance) Friable -Moisture (Ida-wound Skin Appearance Maceration ) -Color (Ida-wound Skin Appearance) No Abnormality -Temperature (Ida-wound Skin No Abnormality Appearance) (Pt Warm) -Tenderness on Palpation (Ida-wound No Skin Appearance) -Ulcer Cleansing Rinsed/ Irrigated with Saline -Foul Odor after Cleansing No -Anesthetic Used 4% Lidocaine Solution WC - Nurse 2 - General Ulcer CM Notes Start: 09/27/18 13:17 Freq: Status: Active Protocol: Activity Type Activity Date Activity User E-Sign Co-Sign Detail Recorded Client Recorded Date Recorded By Document 10/11/18 10:18 MW [id number] 10/11/18 10:26 MW 10/11/18 10:18 Wound Center Nurse 2 [Procedure/Treatment] -Time 10:23 -Correct Patient Yes -Correct Side, Site, Position Yes -Correct Procedure Yes -Procedure Performed Yes -Type of Procedure Debridement -Clinical Debridement Subcutaneous -Post Debridement Size (cm) - Length 5.3 -Post Debridement Size (cm) - Width 6.0 -Post Debridement Size (cm) - Depth 1.0 -Total Square Cm 31.80 -Wound/Ulcer Outcome Not Healed -Ulcer Cleansing Rinsed/ Irrigated with Saline -Foul Odor after Cleansing No -Bioengineered Tissue Yes -Type of bioengineered Tissue EPIFIX -Expiration Date 05/23/23 -Product Lot Number [id number] -Percent Used 100 -Saline Lot Number [id number] -Bleeding Controlled with Pressure -Offloading No -Treatment Response Procedure Tolerated Well [See Physician Procedure note for Specifics] Pain Scale: 0-10 Numeric [Pain] -Is Patient Pain Free? Yes Musculoskeletal: No Muscle Wasting Neurological: Cranial nerves II-XII grossly intact Psych/Mental Status: Normal Affect Debridement Note Post-Debridement Measurements/Treatment WC - Nurse 2 - General Ulcer CM Notes Start: 09/27/18 13:17 Freq: Status: Active Protocol: Activity Type Activity Date Activity User E-Sign Co-Sign Detail Recorded Client Recorded Date Recorded By Document 09/27/18 13:41 TM [id number] 09/27/18 13:45 TM Document 10/04/18 09:59 MW [id number] 10/04/18 10:10 MW Document 10/11/18 10:18 MW [id number] 10/11/18 10:26 MW 09/27/18 10/04/18 10/11/18 13:41 09:59 10:18 Wound Center Nurse 2 #6 RIGHT ISCHIUM -Time 13:41 09:59 10:23 -Correct Patient Yes Yes Yes -Correct Side, Site, Position Yes Yes Yes -Correct Procedure Yes Yes Yes -Procedure Performed Yes Yes Yes -Type of Procedure Debridement Debridement Debridement -Clinical Debridement Subcutaneous Subcutaneous Subcutaneous -Post Debridement Size (cm) - Length 4.5 5.0 5.3 -Post Debridement Size (cm) - Width 6.5 7.3 6.0 -Post Debridement Size (cm) - Depth 1.7 1.2 1.0 -Total Square Cm 29.25 36.50 31.80 -Wound/Ulcer Outcome Not Healed Not Healed Not Healed -Ulcer Cleansing Rinsed/ Rinsed/ Rinsed/ Irrigated with Irrigated with Irrigated with Saline Saline Saline -Foul Odor after Cleansing No No No -Bioengineered Tissue Yes Yes Yes -Type of bioengineered Tissue EPIFIX EPIFIX EPIFIX -Expiration Date 05/23/23 05/23/23 05/23/23 -Product Lot Number [id number] -Percent Used 100 100 100 -Saline Lot Number [id number] -Topical Lidocaine (%) 4 -Bleeding Controlled with Pressure Pressure Pressure -Other wheel chair cushion -Offloading Yes Yes No -Treatment Response Procedure Procedure Procedure Tolerated Well Tolerated Well Tolerated Well Pain Scale: 0-10 Numeric Is Patient Pain Free? Yes Yes Yes Wound debrided: Right Buttock Wound Grade/Stage: Stage III Type of Debridement: Excisional debridement Anesthesia Used: 4% Lidocaine Solution Depth: Down to and including healthy tissue, in the subcutaneous layer Percentage of wound debrided: 100 Instrument Used: 7mm curette Tissue Removed: slough and devitalized tissue Severity: Fat Layer Exposed Amount of bleeding with debridement: Mild Bleeding Controlled with: Pressure Patient tolerated procedure well Assessment/Plan Active Problems Decubitus ulcer of right ischium, stage 3 (Chronic) Spina bifida (Chronic) Assessment: Decubitus ulcer stage III right ischium. Spina bifida. Paraplegia. History of osteomyelitis. Plan: Wound continues to show good improvement with Epifix and wound Vac. Debridement done as doumented above, procedure was well-tolerated. 4th application of epi-fix done today using 100% of product. Wound veil overtop, moistened with saline. Black foam and wound VAC over top. Leave in place for a week. He ava definitly require more applications of epifix and continued wound Vac use. Still a significant size and he did poorly with other products in the past. Continue offloading. Increased protein intake recommended. Advised to call with any questions or concerns. Follow-up in 1 week. This note was generated with [employer] dictation software. It may contain incorrect words, spelling, and punctuation that were not noted in checking the note before signing.
--- NOTE | 2018-10-11 10:59 | PN.PCM_ITS ---
(1) Decubitus ulcer of right ischium, stage 3 Status: Chronic Current Visit: Yes Code(s): L89.313 - Pressure ulcer of right buttock, stage 3 (2) Spina bifida Status: Chronic Current Visit: Yes Code(s): Q05.9 - Spina bifida, unspecified Type of Wound Chief Complaint: Right ischium ulcer History of Wound: Marcos is a 23-year-old with past medical history of spina bifida, paraplegia, and Stage 3 right ischial pressure ulceration. The patient has been long-term at our facility, with care provided by other providers and most recently by Alondra Menjivar NP. Transfer of care today due to insurance change. No new complaints at this time. Has had one application of epi fix so far. Progress of Wound: Improving. - Physical Exam Vital Signs Temp Pulse Resp BP 98.1 F 93 16 107/65 10/11/18 09:59 10/11/18 09:59 10/11/18 09:59 10/11/18 09:59 General: Alert, Oriented x3, Cooperative, No apparent distress HEENT: Atraumatic, Normocephalic Oral: Moist Mucosa Neck: Supple Lungs: Normal air movement Skin: Ulcer/ Wound Wound Measurements and Assessment WC - Nurse 1 - General Ulcer Measurement Start: 09/27/18 13:17 Freq: Status: Active Protocol: Activity Type Activity Date Activity User E-Sign Co-Sign Detail Recorded Client Recorded Date Recorded By Document 10/11/18 09:59 MIKKI [id number] 10/11/18 10:11 MIKKI 10/11/18 09:59 Wound Center Nurse 1 [Ulcer Assessment] #6 RIGHT ISCHIUM -Combined with other wound No -Current Size (cm) - Length 5.5 -Current Size (cm) - Width 5.8 -Current Size (cm) - Depth 2.0 -Total Square Cm 31.90 -Photo Taken No -Epithelialization Small 1-33% -Tunneling No -Undermining/Tunneling Yes -Undermining/Tunneling Starts (O' 11 clock) -Undermining/Tunneling Ends (O'clock) 1 -Maximum Distance (cm) 0.6 -Circular Undermining No -Classification - Thickness Full Thickness without Exposed Support Structure -Classification - Pressure Ulcer Stage 2 -Exudate Amt Medium (34-66%) -Exudate Type Serosanguineous -Wound Margin Distinct, Outline Attached -Granulation Amt Medium (34-66%) -Granulation Quality Pale [place] -Slough/Fibrin Yes -Necrosis Amt None Present (0 %) -Necrotic Tissue Type Adherent Slough -Structure Exposed N/A -Texture (Ida-wound Skin Appearance) Friable -Moisture (Ida-wound Skin Appearance Maceration ) -Color (Ida-wound Skin Appearance) No Abnormality -Temperature (Ida-wound Skin No Abnormality Appearance) (Pt Warm) -Tenderness on Palpation (Ida-wound No Skin Appearance) -Ulcer Cleansing Rinsed/ Irrigated with Saline -Foul Odor after Cleansing No -Anesthetic Used 4% Lidocaine Solution WC - Nurse 2 - General Ulcer CM Notes Start: 09/27/18 13:17 Freq: Status: Active Protocol: Activity Type Activity Date Activity User E-Sign Co-Sign Detail Recorded Client Recorded Date Recorded By Document 10/11/18 10:18 MW [id number] 10/11/18 10:26 MW 10/11/18 10:18 Wound Center Nurse 2 [Procedure/Treatment] -Time 10:23 -Correct Patient Yes -Correct Side, Site, Position Yes -Correct Procedure Yes -Procedure Performed Yes -Type of Procedure Debridement -Clinical Debridement Subcutaneous -Post Debridement Size (cm) - Length 5.3 -Post Debridement Size (cm) - Width 6.0 -Post Debridement Size (cm) - Depth 1.0 -Total Square Cm 31.80 -Wound/Ulcer Outcome Not Healed -Ulcer Cleansing Rinsed/ Irrigated with Saline -Foul Odor after Cleansing No -Bioengineered Tissue Yes -Type of bioengineered Tissue EPIFIX -Expiration Date 05/23/23 -Product Lot Number [id number] -Percent Used 100 -Saline Lot Number [id number] -Bleeding Controlled with Pressure -Offloading No -Treatment Response Procedure Tolerated Well [See Physician Procedure note for Specifics] Pain Scale: 0-10 Numeric [Pain] -Is Patient Pain Free? Yes Musculoskeletal: No Muscle Wasting Neurological: Cranial nerves II-XII grossly intact Psych/Mental Status: Normal Affect Debridement Note Post-Debridement Measurements/Treatment WC - Nurse 2 - General Ulcer CM Notes Start: 09/27/18 13:17 Freq: Status: Active Protocol: Activity Type Activity Date Activity User E-Sign Co-Sign Detail Recorded Client Recorded Date Recorded By Document 09/27/18 13:41 TM [id number] 09/27/18 13:45 TM Document 10/04/18 09:59 MW [id number] 10/04/18 10:10 MW Document 10/11/18 10:18 MW [id number] 10/11/18 10:26 MW 09/27/18 10/04/18 10/11/18 13:41 09:59 10:18 Wound Center Nurse 2 #6 RIGHT ISCHIUM -Time 13:41 09:59 10:23 -Correct Patient Yes Yes Yes -Correct Side, Site, Position Yes Yes Yes -Correct Procedure Yes Yes Yes -Procedure Performed Yes Yes Yes -Type of Procedure Debridement Debridement Debridement -Clinical Debridement Subcutaneous Subcutaneous Subcutaneous -Post Debridement Size (cm) - Length 4.5 5.0 5.3 -Post Debridement Size (cm) - Width 6.5 7.3 6.0 -Post Debridement Size (cm) - Depth 1.7 1.2 1.0 -Total Square Cm 29.25 36.50 31.80 -Wound/Ulcer Outcome Not Healed Not Healed Not Healed -Ulcer Cleansing Rinsed/ Rinsed/ Rinsed/ Irrigated with Irrigated with Irrigated with Saline Saline Saline -Foul Odor after Cleansing No No No -Bioengineered Tissue Yes Yes Yes -Type of bioengineered Tissue EPIFIX EPIFIX EPIFIX -Expiration Date 05/23/23 05/23/23 05/23/23 -Product Lot Number [id number] -Percent Used 100 100 100 -Saline Lot Number [id number] -Topical Lidocaine (%) 4 -Bleeding Controlled with Pressure Pressure Pressure -Other wheel chair cushion -Offloading Yes Yes No -Treatment Response Procedure Procedure Procedure Tolerated Well Tolerated Well Tolerated Well Pain Scale: 0-10 Numeric Is Patient Pain Free? Yes Yes Yes Wound debrided: Right Buttock Wound Grade/Stage: Stage III Type of Debridement: Excisional debridement Anesthesia Used: 4% Lidocaine Solution Depth: Down to and including healthy tissue, in the subcutaneous layer Percentage of wound debrided: 100 Instrument Used: 7mm curette Tissue Removed: slough and devitalized tissue Severity: Fat Layer Exposed Amount of bleeding with debridement: Mild Bleeding Controlled with: Pressure Patient tolerated procedure well Assessment/Plan Active Problems Decubitus ulcer of right ischium, stage 3 (Chronic) Spina bifida (Chronic) Assessment: Decubitus ulcer stage III right ischium. Spina bifida. Paraplegia. History of osteomyelitis. Plan: Wound continues to show good improvement with Epifix and wound Vac. Debridement done as doumented above, procedure was well-tolerated. 4th application of epi-fix done today using 100% of product. Wound veil overtop, moistened with saline. Black foam and wound VAC over top. Leave in place for a week. He ava definitly require more applications of epifix and continued wound Vac use. Still a significant size and he did poorly with other products in the past. Continue offloading. Increased protein intake recommended. Advised to call with any questions or concerns. Follow-up in 1 week. This note was generated with [employer] dictation software. It may contain incorrect words, spelling, and punctuation that were not noted in checking the note before signing.
[2018-10-18 09:39] VITALS: BP 98/69; PULSE 91; RESP 16; TEMP 36.4
--- NOTE | 2018-10-18 10:57 | PCM.WC.PN ---
(1) Decubitus ulcer of right ischium, stage 3 Status: Chronic Current Visit: Yes Code(s): L89.313 - Pressure ulcer of right buttock, stage 3 (2) Spina bifida Status: Chronic Current Visit: Yes Code(s): Q05.9 - Spina bifida, unspecified Type of Wound Chief Complaint: Right ischium ulcer History of Wound: Marcos is a 23-year-old with past medical history of spina bifida, paraplegia, and Stage 3 right ischial pressure ulceration. The patient has been long-term at our facility, with care provided by other providers and most recently by Alondra Menjivar NP. Transfer of care today due to insurance change. No new complaints at this time. Has had one application of epi fix so far. Progress of Wound: Improving. - Physical Exam Vital Signs Temp Pulse Resp BP 97.5 F L 91 16 98/69 10/18/18 09:39 10/18/18 09:39 10/18/18 09:39 10/18/18 09:39 General: Alert, No apparent distress HEENT: Atraumatic, Normocephalic Oral: Moist Mucosa Neck: Supple Lungs: Normal air movement Extremities: No cyanosis Skin: Ulcer/ Wound Wound Measurements and Assessment WC - Nurse 1 - General Ulcer Measurement Start: 09/27/18 13:17 Freq: Status: Active Protocol: Activity Type Activity Date Activity User E-Sign Co-Sign Detail Recorded Client Recorded Date Recorded By Document 10/18/18 09:39 MIKKI [id number] 10/18/18 10:00 MIKKI 10/18/18 09:39 Wound Center Nurse 1 [Ulcer Assessment] #6 RIGHT ISCHIUM -Combined with other wound No -Current Size (cm) - Length 6.0 -Current Size (cm) - Width 5.0 -Current Size (cm) - Depth 1.0 -Total Square Cm 30.00 -Date of Last Picture (Recall this 10/18/18 field) -Photo Taken Yes -Epithelialization Small 1-33% -Tunneling No -Undermining/Tunneling Yes -Undermining/Tunneling Starts (O' 1 clock) -Undermining/Tunneling Ends (O'clock) 5 -Maximum Distance (cm) 0.5 -Circular Undermining No -Classification - Thickness Full Thickness without Exposed Support Structure -Classification - Pressure Ulcer Stage 2 -Exudate Amt Large (67-100%) -Exudate Type Serosanguineous -Wound Margin Distinct, Outline Attached -Granulation Amt Medium (34-66%) -Granulation Quality Pale [place] -Slough/Fibrin Yes -Necrosis Amt None Present (0 %) -Necrotic Tissue Type Adherent Slough -Structure Exposed N/A -Texture (Ida-wound Skin Appearance) Assessed -Moisture (Ida-wound Skin Appearance Maceration ) -Color (Ida-wound Skin Appearance) No Abnormality -Temperature (Ida-wound Skin No Abnormality Appearance) (Pt Warm) -Tenderness on Palpation (Ida-wound No Skin Appearance) -Ulcer Cleansing Rinsed/ Irrigated with Saline -Foul Odor after Cleansing No -Anesthetic Used 4% Lidocaine Solution WC - Nurse 2 - General Ulcer CM Notes Start: 09/27/18 13:17 Freq: Status: Active Protocol: Activity Type Activity Date Activity User E-Sign Co-Sign Detail Recorded Client Recorded Date Recorded By Document 10/18/18 10:21 MW [id number] 10/18/18 10:32 MW 10/18/18 10:21 Wound Center Nurse 2 [Procedure/Treatment] -Time 10:23 -Correct Patient Yes -Correct Side, Site, Position Yes -Correct Procedure Yes -Procedure Performed Yes -Type of Procedure Debridement -Clinical Debridement Subcutaneous -Post Debridement Size (cm) - Length 5.0 -Post Debridement Size (cm) - Width 6.0 -Post Debridement Size (cm) - Depth 0.8 -Total Square Cm 30.00 -Wound/Ulcer Outcome Not Healed -Ulcer Cleansing Rinsed/ Irrigated with Saline -Foul Odor after Cleansing No -Bioengineered Tissue No -Bleeding Controlled with Pressure -Offloading No -Treatment Response Procedure Tolerated Well [See Physician Procedure note for Specifics] Pain Scale: 0-10 Numeric [Pain] -Is Patient Pain Free? Yes Musculoskeletal: No Muscle Wasting Neurological: Cranial nerves II-XII grossly intact Psych/Mental Status: Normal Affect Debridement Note Post-Debridement Measurements/Treatment - Nurse 2 - General Ulcer CM Notes Start: 09/27/18 13:17 Freq: Status: Active Protocol: Activity Type Activity Date Activity User E-Sign Co-Sign Detail Recorded Client Recorded Date Recorded By Document 09/27/18 13:41 TM [id number] 09/27/18 13:45 TM Document 10/04/18 09:59 MW [id number] 10/04/18 10:10 MW Document 10/11/18 10:18 MW [id number] 10/11/18 10:26 MW Document 10/18/18 10:21 MW [id number] 10/18/18 10:32 MW 09/27/18 10/04/18 10/11/18 13:41 09:59 10:18 Wound Center Nurse 2 #6 RIGHT ISCHIUM -Time 13:41 09:59 10:23 -Correct Patient Yes Yes Yes -Correct Side, Site, Position Yes Yes Yes -Correct Procedure Yes Yes Yes -Procedure Performed Yes Yes Yes -Type of Procedure Debridement Debridement Debridement -Clinical Debridement Subcutaneous Subcutaneous Subcutaneous -Post Debridement Size (cm) - Length 4.5 5.0 5.3 -Post Debridement Size (cm) - Width 6.5 7.3 6.0 -Post Debridement Size (cm) - Depth 1.7 1.2 1.0 -Total Square Cm 29.25 36.50 31.80 -Wound/Ulcer Outcome Not Healed Not Healed Not Healed -Ulcer Cleansing Rinsed/ Rinsed/ Rinsed/ Irrigated with Irrigated with Irrigated with Saline Saline Saline -Foul Odor after Cleansing No No No -Bioengineered Tissue Yes Yes Yes -Type of bioengineered Tissue EPIFIX EPIFIX EPIFIX -Expiration Date 05/23/23 05/23/23 05/23/23 -Product Lot Number [id number] -Percent Used 100 100 100 -Saline Lot Number [id number] -Topical Lidocaine (%) 4 -Bleeding Controlled with Pressure Pressure Pressure -Other wheel chair cushion -Offloading Yes Yes No -Treatment Response Procedure Procedure Procedure Tolerated Well Tolerated Well Tolerated Well Pain Scale: 0-10 Numeric Is Patient Pain Free? Yes Yes Yes 10/18/18 10:21 Wound Center Nurse 2 #6 RIGHT ISCHIUM -Time 10:23 -Correct Patient Yes -Correct Side, Site, Position Yes -Correct Procedure Yes -Procedure Performed Yes -Type of Procedure Debridement -Clinical Debridement Subcutaneous -Post Debridement Size (cm) - Length 5.0 -Post Debridement Size (cm) - Width 6.0 -Post Debridement Size (cm) - Depth 0.8 -Total Square Cm 30.00 -Wound/Ulcer Outcome Not Healed -Ulcer Cleansing Rinsed/ Irrigated with Saline -Foul Odor after Cleansing No -Bioengineered Tissue No -Type of bioengineered Tissue -Expiration Date -Product Lot Number -Percent Used -Saline Lot Number -Topical Lidocaine (%) -Bleeding Controlled with Pressure -Other -Offloading No -Treatment Response Procedure Tolerated Well Pain Scale: 0-10 Numeric Is Patient Pain Free? Yes Wound debrided: Right Buttock Wound Grade/Stage: Stage III Type of Debridement: Excisional debridement Anesthesia Used: 4% Lidocaine Solution Depth: Down to and including healthy tissue, in the subcutaneous layer Percentage of wound debrided: 100 Instrument Used: 7mm curette Tissue Removed: Slough and devitalized tissue Severity: Fat Layer Exposed Amount of bleeding with debridement: Mild Bleeding Controlled with: Pressure Patient tolerated procedure well Assessment/Plan Active Problems Decubitus ulcer of right ischium, stage 3 (Chronic) Spina bifida (Chronic) Assessment: Decubitus ulcer stage III right ischium. Spina bifida. Paraplegia. History of osteomyelitis. Plan: Wound continues to show good improvement with Epifix and wound Vac. No significant concerns at this time. Debridement done as doumented above, procedure was well-tolerated. 5th application of epi-fix done today using 100% of product. Wound veil overtop, moistened with saline. Black foam and wound VAC over top. Leave in place for a week. He ava definitely Continue to require more applications of epifix and continued wound Vac use. Still a significant size and he did poorly with other products in the past. Continue offloading. Increased protein intake recommended. Advised to call with any questions or concerns. Follow-up with me in 2 weeks and with Cruz hayes NP in 1 week for a courtesy visit.. This note was generated with [employer] software. It may contain incorrect words, spelling, and punctuation that were not noted in checking the note before signing.
--- NOTE | 2018-10-18 11:00 | PN.PCM_ITS ---
(1) Decubitus ulcer of right ischium, stage 3 Status: Chronic Current Visit: Yes Code(s): L89.313 - Pressure ulcer of right buttock, stage 3 (2) Spina bifida Status: Chronic Current Visit: Yes Code(s): Q05.9 - Spina bifida, unspecified Type of Wound Chief Complaint: Right ischium ulcer History of Wound: Marcos is a 23-year-old with past medical history of spina bifida, paraplegia, and Stage 3 right ischial pressure ulceration. The patient has been long-term at our facility, with care provided by other providers and most recently by Alondra Menjivar NP. Transfer of care today due to insurance change. No new complaints at this time. Has had one application of epi fix so far. Progress of Wound: Improving. - Physical Exam Vital Signs Temp Pulse Resp BP 97.5 F L 91 16 98/69 10/18/18 09:39 10/18/18 09:39 10/18/18 09:39 10/18/18 09:39 General: Alert, No apparent distress HEENT: Atraumatic, Normocephalic Oral: Moist Mucosa Neck: Supple Lungs: Normal air movement Extremities: No cyanosis Skin: Ulcer/ Wound Wound Measurements and Assessment WC - Nurse 1 - General Ulcer Measurement Start: 09/27/18 13:17 Freq: Status: Active Protocol: Activity Type Activity Date Activity User E-Sign Co-Sign Detail Recorded Client Recorded Date Recorded By Document 10/18/18 09:39 MIKKI [id number] 10/18/18 10:00 MIKKI 10/18/18 09:39 Wound Center Nurse 1 [Ulcer Assessment] #6 RIGHT ISCHIUM -Combined with other wound No -Current Size (cm) - Length 6.0 -Current Size (cm) - Width 5.0 -Current Size (cm) - Depth 1.0 -Total Square Cm 30.00 -Date of Last Picture (Recall this 10/18/18 field) -Photo Taken Yes -Epithelialization Small 1-33% -Tunneling No -Undermining/Tunneling Yes -Undermining/Tunneling Starts (O' 1 clock) -Undermining/Tunneling Ends (O'clock) 5 -Maximum Distance (cm) 0.5 -Circular Undermining No -Classification - Thickness Full Thickness without Exposed Support Structure -Classification - Pressure Ulcer Stage 2 -Exudate Amt Large (67-100%) -Exudate Type Serosanguineous -Wound Margin Distinct, Outline Attached -Granulation Amt Medium (34-66%) -Granulation Quality Pale [place] -Slough/Fibrin Yes -Necrosis Amt None Present (0 %) -Necrotic Tissue Type Adherent Slough -Structure Exposed N/A -Texture (Ida-wound Skin Appearance) Assessed -Moisture (Ida-wound Skin Appearance Maceration ) -Color (Ida-wound Skin Appearance) No Abnormality -Temperature (Ida-wound Skin No Abnormality Appearance) (Pt Warm) -Tenderness on Palpation (Ida-wound No Skin Appearance) -Ulcer Cleansing Rinsed/ Irrigated with Saline -Foul Odor after Cleansing No -Anesthetic Used 4% Lidocaine Solution WC - Nurse 2 - General Ulcer CM Notes Start: 09/27/18 13:17 Freq: Status: Active Protocol: Activity Type Activity Date Activity User E-Sign Co-Sign Detail Recorded Client Recorded Date Recorded By Document 10/18/18 10:21 MW [id number] 10/18/18 10:32 MW 10/18/18 10:21 Wound Center Nurse 2 [Procedure/Treatment] -Time 10:23 -Correct Patient Yes -Correct Side, Site, Position Yes -Correct Procedure Yes -Procedure Performed Yes -Type of Procedure Debridement -Clinical Debridement Subcutaneous -Post Debridement Size (cm) - Length 5.0 -Post Debridement Size (cm) - Width 6.0 -Post Debridement Size (cm) - Depth 0.8 -Total Square Cm 30.00 -Wound/Ulcer Outcome Not Healed -Ulcer Cleansing Rinsed/ Irrigated with Saline -Foul Odor after Cleansing No -Bioengineered Tissue No -Bleeding Controlled with Pressure -Offloading No -Treatment Response Procedure Tolerated Well [See Physician Procedure note for Specifics] Pain Scale: 0-10 Numeric [Pain] -Is Patient Pain Free? Yes Musculoskeletal: No Muscle Wasting Neurological: Cranial nerves II-XII grossly intact Psych/Mental Status: Normal Affect Debridement Note Post-Debridement Measurements/Treatment - Nurse 2 - General Ulcer CM Notes Start: 09/27/18 13:17 Freq: Status: Active Protocol: Activity Type Activity Date Activity User E-Sign Co-Sign Detail Recorded Client Recorded Date Recorded By Document 09/27/18 13:41 TM [id number] 09/27/18 13:45 TM Document 10/04/18 09:59 MW [id number] 10/04/18 10:10 MW Document 10/11/18 10:18 MW [id number] 10/11/18 10:26 MW Document 10/18/18 10:21 MW [id number] 10/18/18 10:32 MW 09/27/18 10/04/18 10/11/18 13:41 09:59 10:18 Wound Center Nurse 2 #6 RIGHT ISCHIUM -Time 13:41 09:59 10:23 -Correct Patient Yes Yes Yes -Correct Side, Site, Position Yes Yes Yes -Correct Procedure Yes Yes Yes -Procedure Performed Yes Yes Yes -Type of Procedure Debridement Debridement Debridement -Clinical Debridement Subcutaneous Subcutaneous Subcutaneous -Post Debridement Size (cm) - Length 4.5 5.0 5.3 -Post Debridement Size (cm) - Width 6.5 7.3 6.0 -Post Debridement Size (cm) - Depth 1.7 1.2 1.0 -Total Square Cm 29.25 36.50 31.80 -Wound/Ulcer Outcome Not Healed Not Healed Not Healed -Ulcer Cleansing Rinsed/ Rinsed/ Rinsed/ Irrigated with Irrigated with Irrigated with Saline Saline Saline -Foul Odor after Cleansing No No No -Bioengineered Tissue Yes Yes Yes -Type of bioengineered Tissue EPIFIX EPIFIX EPIFIX -Expiration Date 05/23/23 05/23/23 05/23/23 -Product Lot Number [id number] -Percent Used 100 100 100 -Saline Lot Number [id number] -Topical Lidocaine (%) 4 -Bleeding Controlled with Pressure Pressure Pressure -Other wheel chair cushion -Offloading Yes Yes No -Treatment Response Procedure Procedure Procedure Tolerated Well Tolerated Well Tolerated Well Pain Scale: 0-10 Numeric Is Patient Pain Free? Yes Yes Yes 10/18/18 10:21 Wound Center Nurse 2 #6 RIGHT ISCHIUM -Time 10:23 -Correct Patient Yes -Correct Side, Site, Position Yes -Correct Procedure Yes -Procedure Performed Yes -Type of Procedure Debridement -Clinical Debridement Subcutaneous -Post Debridement Size (cm) - Length 5.0 -Post Debridement Size (cm) - Width 6.0 -Post Debridement Size (cm) - Depth 0.8 -Total Square Cm 30.00 -Wound/Ulcer Outcome Not Healed -Ulcer Cleansing Rinsed/ Irrigated with Saline -Foul Odor after Cleansing No -Bioengineered Tissue No -Type of bioengineered Tissue -Expiration Date -Product Lot Number -Percent Used -Saline Lot Number -Topical Lidocaine (%) -Bleeding Controlled with Pressure -Other -Offloading No -Treatment Response Procedure Tolerated Well Pain Scale: 0-10 Numeric Is Patient Pain Free? Yes Wound debrided: Right Buttock Wound Grade/Stage: Stage III Type of Debridement: Excisional debridement Anesthesia Used: 4% Lidocaine Solution Depth: Down to and including healthy tissue, in the subcutaneous layer Percentage of wound debrided: 100 Instrument Used: 7mm curette Tissue Removed: Slough and devitalized tissue Severity: Fat Layer Exposed Amount of bleeding with debridement: Mild Bleeding Controlled with: Pressure Patient tolerated procedure well Assessment/Plan Active Problems Decubitus ulcer of right ischium, stage 3 (Chronic) Spina bifida (Chronic) Assessment: Decubitus ulcer stage III right ischium. Spina bifida. Paraplegia. History of osteomyelitis. Plan: Wound continues to show good improvement with Epifix and wound Vac. No significant concerns at this time. Debridement done as doumented above, procedure was well-tolerated. 5th application of epi-fix done today using 100% of product. Wound veil overtop, moistened with saline. Black foam and wound VAC over top. Leave in place for a week. He ava definitely Continue to require more applications of epifix and continued wound Vac use. Still a significant size and he did poorly with other products in the past. Continue offloading. Increased protein intake recommended. Advised to call with any questions or concerns. Follow-up with me in 2 weeks and with Cruz hayes NP in 1 week for a courtesy visit.. This note was generated with [employer] software. It may contain incorrect words, spelling, and punctuation that were not noted in checking the note before signing.
== END 2018-10-22 23:59 ==
LOC: WC 09:30
PROVIDERS: Family Provider Family Medicine; PCP Family Medicine; Visit Provider Internal Medicine
DX: L89.213 Pressure ulcer of right hip, stage 3 (principal); Q05.9 Spina bifida, unspecified; G82.20 Paraplegia, unspecified
CPT/HCPCS: 15271; 15275; 97605; Q4131

== ENCOUNTER 2018-10-25 15:19 | Inpatient (IN) | payer OTHER, SELFPAY ==
[2018-10-25 15:21] VITALS: BP 107/70; PULSE 149; RESP 23; TEMP 38.2; O2SAT 96
[2018-10-25 15:29] VITALS: PULSE 149; RESP 23; O2SAT 95
[2018-10-25] MEDS: 0.9% Normal Saline 1,000 ML 1000 ML IV (15:51)
[2018-10-25 16:09] LABS: Absolute Lymphocyte Count 1.11 X10^3/ul (0.83-4.51); Absolute Neutrophil Count 7.1 X10^3/uL (2.0-7.7); Basophil# 0.02 X10^3/uL; Basophil% 0.2 % (0-1); Eosinophil# 0.03 X10^3/uL; Eosinophils% 0.3 % (0-5); Hematocrit 37.3 % (40-54); Hemoglobin 11.5 g/dl (13.0-16.5); Lymphocyte # 1.11 X10^3/ul (4.0); Lymphocyte % 12.3 % (19-41); Mean Corp Hgb Conc 30.8 g/gl (32-36); Mean Corpuscular Hgb 24.1 pg (27.0-32.0); Mean Corpuscular Volume 78.2 fL (80-94); Mean Platelet Vol. 8.3 fl (6.2-12.0); Monocyte# 0.75 X10^3/uL; Monocyte% 8.3 % (0-10); Neutrophil # 7.08 X10^3/uL (2.7-7.7); Neutrophil % 78.8 % (47-70); Platelet Count 411 K/mm3 (150-450); RBC Distribution Width CV 14.8 % (11.6-14.6); RBC Distribution Width SD 42.2 fl (35.1-43.9); Red Blood Count 4.77 M/mm3 (4.6-6.2)
[2018-10-25] MEDS: Acetaminophen 325 MG Tablet 650 MG PO (16:11)
[2018-10-25 16:16] LABS: POSITIVE COUNT NO; POSITIVE DIFFERENTIAL NO; POSITIVE MORPHOLOGY NO
--- NOTE | 2018-10-25 16:22 | RAD_ITS ---
STUDY: X-RAY CHEST REASON FOR EXAM: Male, 23 years old. Fever and buttock wound TECHNIQUE: Single frontal view of the chest. COMPARISON: January 04, 2016 FINDINGS: The lungs are clear and expanded. There is no demonstrated pleural abnormality. Normal size heart. Normal mediastinum and adelina. Normal visualized pulmonary arteries. Normal visualized aortic arch and descending thoracic aorta. Moderate dextroconvex scoliosis. Warren susan present thoracolumbar junction on the right. Normal visualized ribs, clavicles, and shoulders. There is no demonstrated abnormality of the visualized soft tissue structures of the upper abdomen. RAD/Chest 1 View (Portable) IMPRESSION: Normal x-ray examination of the chest. Electronically Signed: Garland Fairbanks MD at 17:19 EST , Service support ,
[2018-10-25 16:25] VITALS: BP 129/78; PULSE 144; RESP 19; TEMP 38.5; O2SAT 97
[2018-10-25 16:37] LABS: ALB/GLOB Ratio 0.4 RATIO (0.9-2.4); AST(SGOT) 10 U/L (15-37); Alanine Aminotransfer ALT/SGPT 14 U/L (16-61); Albumin, Serum 2.6 g/dL (3.2-5.0); Alkaline Phosphatase 95 U/L (45-117); Anion Gap 7 (5-15); BUN 18 mg/dL (7-18); BUN/Creat Ratio 39.6 RATIO (10-20); Chloride 100 mmol/L (98-107); Creatinine, Serum 0.45 mg/dL (0.70-1.30); EST Glomerular Filtration Rate 249 mL/min (>60); Est Glom Filt Rate - Afr Amer 301 mL/min (>60); Estimated Creatinine Clearance 122.67 ml/min; Globulin 5.8 g/dL (2.2-4.2); Glucose 97 mg/dL (74-106); Lactic Acid 1.3 mmol/L (0.4-2.0); Potassium 3.7 mmol/L (3.5-5.1); Protein, Total 8.4 g/dL (6.4-8.2); Sodium Level 136 mmol/L (136-145)
[2018-10-25 16:57] LABS: Mucous, Urine 0 SEEN /hpf (<or=2+); Squamous Epithelial Cells - UA 0 SEEN /hpf (0-5)
[2018-10-25 17:00] VITALS: BP 122/81; PULSE 136; RESP 18; TEMP 38.3; O2SAT 96
--- NOTE | 2018-10-25 17:00 | CT_ITS ---
STUDY: CT ABDOMEN AND PELVIS WITHOUT CONTRAST REASON FOR EXAM: Male, 23 years old. Fever and pelvic wound RADIATION DOSAGE (If Supplied By Facility): CTDIvol = ( 6.22 ) mGy, DLP = ( 232.95 ) mGycm TECHNIQUE: Transaxial images were obtained from the dome of the diaphragm to the symphysis pubis without oral contrast, and without intravenous contrast. Sagittal and coronal images were reconstructed. Individualized dose optimization techniques were used for this CT. COMPARISON: July 22, 2016 FINDINGS: The visualized lung bases are unremarkable. The visualized portions of the heart are within normal limits. Normal liver. Normal gallbladder and extrahepatic biliary system. Normal spleen. Normal pancreas. Normal bilateral adrenal glands. Multiple static horn calculi measuring up to 2. 1.2 cm. Normal left kidney. Normal visualized stomach. Normal small intestine. Normal colon. Appendix not identified. Increased stool throughout the colon. Normal abdominal aorta. Normal inferior vena cava. Normal retroperitoneum. Suprapubic catheter within the bladder with multiple bladder stones. History of peritoneal catheter is noted which enters the peritoneal cavity at the epigastrium. There appears to be a decubitus ulcer which extends to the ischium on the right which is eroded. Severe scoliosis and Warren rods noted along the right lumbar spine. CT/Abdomen/Pelvis without Cont IMPRESSION: Decubitus ulcer extending to the right ischium with osteolysis. No abscess is identified but sensitivity is limited without IV contrast. MRI or triple phase bone scan would be more sensitive for osteomyelitis. Other incidental findings as noted above including staghorn calculi in the right and bladder stones. Electronically Signed: Garland Fairbanks MD at 18:15 EST , Service support ,
--- NOTE | 2018-10-25 17:01 | ED.VISSUMM ---
- ER Visit Summary Date of Service: 10/25/18 Chief Complaint: [Fever] History of Present Illness: The patient is a 23 M [presents to the emergency department with fever that started today. Patient was seeing his follow up specialist who checked the patient's temperature and noted it was above 102. Patient seemed flushed and tachycardic therefore he was referred to the emergency department. Patient has a decubitus ulcer on his left hip that is chronic and has a wound VAC on it. Patient's parents both state that the wounds been looking good and they did not have any concerns about infection. Patient does have a history of spina bifida and really has no sensation from the chest down. Patient does not ambulate. Patient does have a history of kidney stones and bladder stones. Patient does have a urostomy. She has had prior urinary tract infections in the past. Patient denies cough. Denies sore throat or ear pain.] Physical Examination: [HEENT-PERRLA, EOMI. Cranial nerves II through XII grossly intact. TMs clear. Mucous membranes moist. No adenopathy. Cardiovascular-regular and tachycardic. No murmurs auscultated. Lungs-clear to auscultation, chest wall stable without crepitus or subcu emphysema Abdomen-normoactive bowel sounds, soft, nontender, no rebound or rigidity, no peritoneal signs. Extremities-intact ?4. Patient has no real motion of the lower extremities. No cellulitis noted. The wound on the left hip was evaluated and there is some faint odor noted but the parent states that this is not new and they are using placental type tissue over the wound to try to stimulate stem cells to help heal the wound and there was always a chronic smell. There is no erythema noted.] Test Results: [CBC with differential obtained showed a white count of 9.0, hemoglobin 11.5, hematocrit 37, platelets 411. History is unremarkable. LFTs were unremarkable. Lactate was 1.3. Influenza screen was negative. Chest x-ray obtained showed nothing acute. CT scan of the abdomen and pelvis ordered pending. Urinalysis positive for 500 leukocyte esterase, positive for nitrites, 25-50 WBCs, and 50-100 RBCs..] CT scan of the abdomen pelvis did show a staghorn calculi of the right kidney and bladder stone otherwise nothing significant. Emergency Department Course and Treatment: [Patient was started on Zosyn 4.5 g IV after obtaining blood cultures.] Treatment Plan: [Plan will be to admit patient for further workup and evaluation of his fever.] Disposition: [Admit Impression: ] UTI Sepsis This note was generated with [employer] dictation software. It may contain incorrect words, spelling, and punctuation that were not noted in review of the chart prior to signing ED Disposition - Plan for ED Patient: Chief Complaint: Fever Referrals: Syed Hernandes DO [Primary Care Provider] -
[2018-10-25 17:02] LABS: Color, Urine Yellow (Yellow); Glucose, Dipstick Normal (Normal); Ketone-Dipstick Negative (Negative); Leukocyte Esterase-Dipstick 500 /ul (Negative); Nitrite-Dipstick Positive (Negative); Occult Blood-Urine 250 /ul (Negative); Protein-Dipstick 30 mg/dl (Negative); Specific Gravity, Urine 1.015 (1.002-1.030); Urine Bilirubin Dipstick Negative (Negative); Urine Clarity Sl. Cloudy (Clear); Urine Urobilinogen Normal (Normal)
--- NOTE | 2018-10-25 17:05 | ED.DCSUM_ITS ---
- ER Visit Summary Date of Service: 10/25/18 Chief Complaint: [Fever] History of Present Illness: The patient is a 23 M [presents to the emergency department with fever that started today. Patient was seeing his medical record retrieval specialist who checked the patient's temperature and noted it was above 102. Patient seemed flushed and tachycardic therefore he was referred to the emergency department. Patient has a decubitus ulcer on his left hip that is chronic and has a wound VAC on it. Patient's parents both state that the wounds been looking good and they did not have any concerns about infection. Patient does have a history of spina bifida and really has no sensation from the chest down. Patient does not ambulate. Patient does have a history of kidney stones and bladder stones. Patient does have a urostomy. She has had prior urinary tract infections in the past. Patient denies cough. Denies sore throat or ear pain.] Physical Examination: [HEENT-PERRLA, EOMI. Cranial nerves II through XII grossly intact. TMs clear. Mucous membranes moist. No adenopathy. Cardiovascular-regular and tachycardic. No murmurs auscultated. Lungs-clear to auscultation, chest wall stable without crepitus or subcu emphysema Abdomen-normoactive bowel sounds, soft, nontender, no rebound or rigidity, no peritoneal signs. Extremities-intact ?4. Patient has no real motion of the lower extremities. No cellulitis noted. The wound on the left hip was evaluated and there is some fa int odor noted but the parent states that this is not new and they are using placental type tissue over the wound to try to stimulate stem cells to help heal the wound and there was always a chronic smell. There is no erythema noted.] Test Results: [CBC with differential obtained showed a white count of 9.0, hemoglobin 11.5, hematocrit 37, platelets 411. History is unremarkable. LFTs were unremarkable. Lactate was 1.3. Influenza screen was negative. Chest x- ray obtained showed nothing acute. CT scan of the abdomen and pelvis ordered pending. Urinalysis positive for 500 leukocyte esterase, positive for nitrites, 25-50 WBCs, and 50-100 RBCs..] CT scan of the abdomen pelvis did show a staghorn calculi of the right kidney and bladder stone otherwise nothing signi ficant. Emergency Department Course and Treatment: [Patient was started on Zosyn 4.5 g IV after obtaining blood cultures.] Treatment Plan: [Plan will be to admit patient for further workup and evaluation of his fever.] Disposition: [Admit Impression: ] UTI Sepsis This note was generated with [employer] dictation software. It may contain incorrect words, spelling, and punctuation that were not noted in review of the chart prior to signing ED Disposition - Plan for ED Patient: Chief Complaint: Fever Referrals: Syed Hernandes DO [Primary Care Provider] -
--- NOTE | 2018-10-25 17:50 | ED.RN ---
VERIFIED MED DOSAGES WITH MD PRIOR TO ADMINISTRATION.
[2018-10-25 18:00] VITALS: BP 103/70; PULSE 134; RESP 19; TEMP 36.9; O2SAT 96
[2018-10-25 18:05] LABS: Bacteria 2+ /hpf (None Seen); Red Blood Cells-Urine 50-100 SEEN /hpf (0-5); White Blood Cells 25-50 SEEN /hpf (0-5)
--- NOTE | 2018-10-25 18:59 | PCM.HP.STD ---
Problem List (1) Complicated UTI (urinary tract infection) Status: Acute (2) Decubitus ulcer of right ischium, stage 3 Status: Chronic (3) History of osteomyelitis Status: Chronic Comment: right sacral area (4) Malnutrition compromising bodily function Status: Chronic (5) Spina bifida Status: Chronic Qualifiers: Spinal region: unspecified Presence of hydrocephalus: unspecified hydrocephalus presence Qualified Code(s): Q05.9 - Spina bifida, unspecified History of Present Illness Date of Admission: 10/25/18 Chief Complaint: Fever, tachycardia, fatigue The patient is a 23 y/o M w/ PMHx: Spina Bifida, Paraplegia, History of Osteomyelitis Coccyx now resolved, Prior Stage IV R Ischial Pressure Ulcer being treated at the [facility] now stage III noted to have been open since 01/2018 with prior serial debridements in addition to noted surgical intervention for bowel flushing as well as urinary function, STONEWORKING BELT SANDER shunt, right thigh plate, bilateral ankle and tendon repairs who presents to the [facility] ED on 10/25/17 with history of visit routinely to the wound care center on day of presentation for ongoing evaluation of right ischial pressure ulcer with notable fever and tachycardia with recommendation to present to the emergency room. Patient notes that he has been feeling more fatigued and weak over the last 24-48 hours but otherwise no acute complaints. Both wound care and ED physician evaluation of wound did not feel that this was the source. Additional workup in the ED included T101.3, heart rate 149, BP 129/78, respiratory rate 23, 97% on room air, BC with W BC 9, hemoglobin 11.5, platelet 411 with mild left shift, CMP with no market findings, lactic acid 1.3, urinalysis severe appearing, decent sample. In the ED patient center medical specialist normal saline, Zosyn, Tylenol. 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 History of osteomyelitis (Chronic) right sacral area Decubitus ulcer of right ischium, stage 2 (Chronic) Spina bifida (Chronic) Chronic osteomyelitis, pelvic region and thigh (Chronic) right sacral area Malnutrition compromising bodily function (Chronic) Allergies latex Allergy (Verified 10/25/18 15:25) Unknown unsure as charted levofloxacin [Levofloxacin] Allergy (Verified 10/25/18 15:25) Rash sulfamethoxazole [From Bactrim] Allergy (Verified 10/25/18 15:25) Rash trimethoprim [From Bactrim] Allergy (Verified 10/25/18 15:25) Rash Home Medications: Ambulatory Orders Medication Instructions Recorded Polyethylene Glycol 3350 [Miralax] 17 gm PO DAILY #30 05/06/14 Argin/Glut/Cahmb/Collag/Mv-Min 1 each PO BID MDD SUPPLEMENT 10/25/18 [Mark Packet] Caloric Supplement [Benecalorie] 7.5 kcal PO DAILY 10/25/18 Cyproheptadine HCl 4 mg PO DAILY 10/25/18 Lactose-Reduced Food [Ensure Plus] 237 ml PO BID 10/25/18 Vitamin E 400 units PO DAILY 10/25/18 Surgical History: - - Several pressure ulcer interventions with debridements and surgical I&D's, tonsillectomy, bowel stoma and bladder surgery interventions, STONEWORKING BELT SANDER shunt, right plate thigh surgery, bilateral ankle tendon surgery. Psychiatric History: No pertinent psych hx Lives: With Family Smoking Status: Never smoker Tobacco Use: Non-smoker Alcohol: None Drugs: None - *Family History Maternal History Items: - - Mother with a history of borderline hypertension. Paternal History Items: - - Father with a history of diabetes. Review of Systems Constitutional: Reports: Fever, Malaise, Weakness, Fatigue. Denies: Chills, Weight Change HEENT: Denies: Head Aches, Sinus Congestion, Sinus Drainage Cardiovascular: Denies: Chest Pain, Palpitations Respiratory: Denies: Cough, Shortness of breath at rest, Sputum production Gastrointestinal: Denies: Abdominal Pain, Nausea, Vomiting Genitourinary: Denies: Dysuria Musculoskeletal: Denies: Joint Pain, Joint Tenderness Skin: Reports: Skin Changes, Wounds. Denies: Rash Neurological: Reports: Slurred speech, Focal weakness, Numbness, Tingling Psychiatric: Denies: Anxiety, Depression, Homicidal Ideations, Suicidal Ideations Hematologic/ Lymphatic: Reports: Anemia. Denies: Easy Bruising, Easy Bleeding VTE Information - Inpt Only VTE Present on Admission: No VTE Mechan Device Prophylaxis: SCD's VTE Pharm Prophylaxis ordered?: Yes Patient Problems: Active and Suspected Problems Complicated UTI (urinary tract infection) (Acute) Subjective: Seated upright in the ED bed, fatigued appearance, notes feeling mildly improved, mostly complaint of weakness. Objective: Physical Examination: General: awake, alert, oriented x 3, altered speech which is chronic, remains cooperative, seated upright in the ED bed in no apparent distress. Skin: normal color, turgor, no icterus, cyanosis except noted stage III right ischial pressure ulcer, mildly felt older but notes that this is chronic with placental treatments he has been receiving, no market discharge, back removed, several prior scars noted from surgical interventions. HEENT: AT/NC, EOMI, PERRLA, only dry MM, no carotid bruits or JVD noted. Lungs: CTA bilaterally, moderate effort, mild decrease BL bases, no rales, ronchi or wheezing. Heart: Tachycardic with regular rhythm; no gallop, rub audible. Abdomen: soft, thin cachectic habitus, NTTP, ND, normal BS, no HSM. Extremities: no cyanosis, clubbing, will contractures, paraplegia with loss of sensation mid abdominal downward. Neurological: patient awake, alert, oriented x 3; cognitive function intact; pupils equally reactive to light and accomodation; cranial nerves II-XII grossly year normal, moving bilateral upper extremities, sensation loss from mid abdomen downward, paraplegia, presence of contractures, strength severely globally decreased. Psychiatric: affect appears fatigued, no acute evidence of depressive or anxiety feelings. - Physical Exam Vital Signs Temp Pulse Resp BP Pulse Ox 98.4 F 134 H 19 H 103/70 96 10/25/18 18:00 10/25/18 18:00 10/25/18 18:00 10/25/18 18:00 10/25/18 18:00 Oxygen Delivery Method Room Air Weight: 73 lb 10.15 oz Body Mass Index (BMI) 0.0 Microbiology Past 72 Hours 10/25/18 16:10 Influenza Types A,B Direct FA (LELE) - Final Mucosa - Nose Laboratory Tests Past 24 Hrs 10/25/18 10/25/18 10/25/18 15:50 15:50 15:50 WBC 9.0 RBC 4.77 Hgb 11.5 L Hct 37.3 L MCV 78.2 L MCH 24.1 L MCHC 30.8 L RDW 14.8 H RDW Differential 42.2 Plt Count 411 MPV 8.3 Immature Gran % (Auto) 0.100 Neut % (Auto) 78.8 H Lymph % (Auto) 12.3 L Whitley % (Auto) 8.3 Eos % (Auto) 0.3 Baso % (Auto) 0.2 Absolute Neuts (auto) 7.1 Absolute Lymphs (auto) 1.11 Total Counted Not Reportable Sodium 136 Potassium 3.7 Chloride 100 Carbon Dioxide 29.0 Anion Gap 7 BUN 18 Creatinine 0.45 L Estim Creat Clear Calc 122.67 Est GFR (MDRD) Af Amer 301 Est GFR (MDRD) Non-Af 249 BUN/Creatinine Ratio 39.6 H Glucose 97 Lactic Acid 1.3 Calcium 9.0 Total Bilirubin 0.30 AST 10 L ALT 14 L Alkaline Phosphatase 95 Total Protein 8.4 H Albumin 2.6 L Globulin 5.8 H Albumin/Globulin Ratio 0.4 L Urine Color Urine Clarity Urine pH Ur Specific Beattie Urine Protein Urine Glucose (UA) Urine Ketones Urine Occult Blood Urine Nitrite Urine Bilirubin Urine Urobilinogen Ur Leukocyte Esterase Urine RBC Urine WBC Ur Squamous Epith Cells Urine Bacteria Urine Mucus 10/25/18 16:45 WBC RBC Hgb Hct MCV MCH MCHC RDW RDW Differential Plt Count MPV Immature Gran % (Auto) Neut % (Auto) Lymph % (Auto) Whitley % (Auto) Eos % (Auto) Baso % (Auto) Absolute Neuts (auto) Absolute Lymphs (auto) Total Counted Sodium Potassium Chloride Carbon Dioxide Anion Gap BUN Creatinine Estim Creat Clear Calc Est GFR (MDRD) Af Amer Est GFR (MDRD) Non-Af BUN/Creatinine Ratio Glucose Lactic Acid Calcium Total Bilirubin AST ALT Alkaline Phosphatase Total Protein Albumin Globulin Albumin/Globulin Ratio Urine Color Yellow Urine Clarity Sl. Cloudy Urine pH 9.0 Ur Specific Beattie 1.015 Urine Protein 30 H Urine Glucose (UA) Normal Urine Ketones Negative Urine Occult Blood 250 H Urine Nitrite Positive H Urine Bilirubin Negative Urine Urobilinogen Normal Ur Leukocyte Esterase 500 H Urine RBC 50-100 SEEN Urine WBC 25-50 SEEN Ur Squamous Epith Cells 0 SEEN Urine Bacteria 2+ Urine Mucus 0 SEEN Assessment/Plan All Active Problems MRSA (methicillin resistant staph aureus) culture positive (Acute) Infected decubitus ulcer (Acute) Complicated UTI (urinary tract infection) (Acute) Right ischial pressure sore, stage 4 (Resolved) The patient is a 23 y/o M w/ PMHx: Spina Bifida, Paraplegia, History of Osteomyelitis Coccyx now resolved, Currently Stage III R Ischial Pressure Ulcer who presents to the [facility] ED on 10/25/17 with history of visit routinely to the wound care center on day of presentation for ongoing evaluation of right ischial pressure ulcer with notable fever and tachycardia. (1) Acute Sepsis secondary to Acute Complicated Urinary Tract Infection: Will admit to [facility] upon ED evaluation remarkable, pending UCx, continue IVFs, monitor I/Os, continue IV Zosyn w/ transition as able pending sensitivities and speciation. Bld cx x 2 obtained in the ED. (2) Stage III Ischial Pressure Ulcer: VAC removed in the ED, family and patient note chronic odor with placental treatments, recent evaluation at [facility] on 10/25/17, will continue wound care consult, replace VAC. (3) Spina Bifida, Paraplegia: s/p STONEWORKING BELT SANDER shunt, several pressure ulcer surgeries in addition to orthopedic interventions, continue w/ position changes, PT, OT to assist with ADL evaluations, CM/SW for discharge planning. (4) DVT Prophylaxis: SCDs, lovenox. Code Visit Inpatient E&M: 34919 Init Hosp L3
--- NOTE | 2018-10-25 19:04 | HP.PCM_ITS ---
Problem List (1) Complicated UTI (urinary tract infection) Status: Acute (2) Decubitus ulcer of right ischium, stage 3 Status: Chronic (3) History of osteomyelitis Status: Chronic Comment: right sacral area (4) Malnutrition compromising bodily function Status: Chronic (5) Spina bifida Status: Chronic Qualifiers: Spinal region: unspecified Presence of hydrocephalus: unspecified hydrocephalus presence Qualified Code(s): Q05.9 - Spina bifida, unspecified History of Present Illness Date of Admission: 10/25/18 Chief Complaint: Fever, tachycardia, fatigue The patient is a 23 y/o M w/ PMHx: Spina Bifida, Paraplegia, History of Osteomyelitis Coccyx now resolved, Prior Stage IV R Ischial Pressure Ulcer being treated at the [facility] now stage III noted to have been open since 01/2018 with prior serial debridements in addition to noted surgical intervention for bowel flushing as well as urinary function, [employer] shunt, right thigh plate, bilateral ankle and tendon repairs who presents to the [facility] ED on 10/25/17 with history of visit routinely to the wound care center on day of presentation for ongoing evaluation of right ischial pressure ulcer with notable fever and tachycardia with recommendation to present to the emergency room. Patient notes that he has been feeling more fatigued and weak over the last 24-48 hours but otherwise no acute complaints. Both wound care and ED physician evaluation of wound did not feel that this was the source. Additional workup in the ED included T101.3, heart rate 149, BP 129/78, respiratory rate 23, 97% on room air, BC with W BC 9, hemoglobin 11.5, platelet 411 with mild left shift, CMP with no market findings, lactic acid 1.3, urinalysis severe appearing, decent sample. 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 History of osteomyelitis (Chronic) right sacral area Decubitus ulcer of right ischium, stage 2 (Chronic) Spina bifida (Chronic) Chronic osteomyelitis, pelvic region and thigh (Chronic) right sacral area Malnutrition compromising bodily function (Chronic) Allergies latex Allergy (Verified 10/25/18 15:25) Unknown unsure as charted levofloxacin [Levofloxacin] Allergy (Verified 10/25/18 15:25) Rash sulfamethoxazole [From Bactrim] Allergy (Verified 10/25/18 15:25) Rash trimethoprim [From Bactrim] Allergy (Verified 10/25/18 15:25) Rash Home Medications: Ambulatory Orders Medication Instructions Recorded Polyethylene Glycol 3350 [Miralax] 17 gm PO DAILY #30 05/06/14 Argin/Glut/Cahmb/Collag/Mv-Min 1 each PO BID MDD SUPPLEMENT 10/25/18 [Mark Packet] Caloric Supplement [Benecalorie] 7.5 kcal PO DAILY 10/25/18 Cyproheptadine HCl 4 mg PO DAILY 10/25/18 Lactose-Reduced Food [Ensure Plus] 237 ml PO BID 10/25/18 Vitamin E 400 units PO DAILY 10/25/18 Surgical History: - - Several pressure ulcer interventions with debridements and surgical I&D's, tonsillectomy, bowel stoma and bladder surgery interventions, [employer]IE[employer]ER [employer]ER shunt, right plate thigh surgery, bilateral ankle tendon surgery. Psychiatric History: No pertinent psych hx Lives: With Family Smoking Status: Never smoker Tobacco Use: Non-smoker Alcohol: None Drugs: None - *Family History Maternal History Items: - - Mother with a history of borderline hypertension. Paternal History Items: - - Father with a history of diabetes. Review of Systems Constitutional: Reports: Fever, Malaise, Weakness, Fatigue. Denies: Chills, Weight Change HEENT: Denies: Head Aches, Sinus Congestion, Sinus Drainage Cardiovascular: Denies: Chest Pain, Palpitations Respiratory: Denies: Cough, Shortness of breath at rest, Sputum production Gastrointestinal: Denies: Abdominal Pain, Nausea, Vomiting Genitourinary: Denies: Dysuria Musculoskeletal: Denies: Joint Pain, Joint Tenderness Skin: Reports: Skin Changes, Wounds. Denies: Rash Neurological: Reports: Slurred speech, Focal weakness, Numbness, Tingling Psychiatric: Denies: Anxiety, Depression, Homicidal Ideations, Suicidal Ideations Hematologic/ Lymphatic: Reports: Anemia. Denies: Easy Bruising, Easy Bleeding VTE Information - Inpt Only VTE Present on Admission: No VTE Mechan Device Prophylaxis: SCD's VTE Pharm Prophylaxis ordered?: Yes Patient Problems: Active and Suspected Problems Complicated UTI (urinary tract infection) (Acute) Subjective: Seated upright in the ED bed, fatigued appearance, notes feeling mildly improved, mostly complaint of weakness. Objective: Physical Examination: General: awake, alert, oriented x 3, altered speech which is chronic, remains cooperative, seated upright in the ED bed in no apparent distress. Skin: normal color, turgor, no icterus, cyanosis except noted stage III right ischial pressure ulcer, mildly felt older but notes that this is chronic with placental treatments he has been receiving, no market discharge, back removed, several prior scars noted from surgical interventions. HEENT: AT/NC, EOMI, PERRLA, only dry MM, no carotid bruits or JVD noted. Lungs: CTA bilaterally, moderate effort, mild decrease BL bases, no rales, ronchi or wheezing. Heart: Tachycardic with regular rhythm; no gallop, rub audible. Abdomen: soft, thin cachectic habitus, NTTP, ND, normal BS, no HSM. Extremities: no cyanosis, clubbing, will contractures, paraplegia with loss of sensation mid abdominal downward. Neurological: patient awake, alert, oriented x 3; cognitive function intact; pupils equally reactive to light and accomodation; cranial nerves II-XII grossly year normal, moving bilateral upper extremities, sensation loss from mid abdomen downward, paraplegia, presence of contractures, strength severely globally decreased. Psychiatric: affect appears fatigued, no acute evidence of depressive or anxiety feelings. - Physical Exam Vital Signs Temp Pulse Resp BP Pulse Ox 98.4 F 134 H 19 H 103/70 96 10/25/18 18:00 10/25/18 18:00 10/25/18 18:00 10/25/18 18:00 10/25/18 18:00 Oxygen Delivery Method Room Air Weight: 73 lb 10.15 oz Body Mass Index (BMI) 0.0 Microbiology Past 72 Hours 10/25/18 16:10 Influenza Types A,B Direct FA (LELE) - Final Mucosa - Nose Laboratory Tests Past 24 Hrs 10/25/18 10/25/18 10/25/18 15:50 15:50 15:50 WBC 9.0 RBC 4.77 Hgb 11.5 L Hct 37.3 L MCV 78.2 L MCH 24.1 L MCHC 30.8 L RDW 14.8 H RDW Differential 42.2 Plt Count 411 MPV 8.3 Immature Gran % (Auto) 0.100 Neut % (Auto) 78.8 H Lymph % (Auto) 12.3 L [place] % (Auto) 8.3 Eos % (Auto) 0.3 Baso % (Auto) 0.2 Absolute Neuts (auto) 7.1 Absolute Lymphs (auto) 1.11 Total Counted Not Reportable Sodium 136 Potassium 3.7 Chloride 100 Carbon Dioxide 29.0 Anion Gap 7 BUN 18 Creatinine 0.45 L Estim Creat Clear Calc 122.67 Est GFR (MDRD) Af Amer 301 Est GFR (MDRD) Non-Af 249 BUN/Creatinine Ratio 39.6 H Glucose 97 Lactic Acid 1.3 Calcium 9.0 Total Bilirubin 0.30 AST 10 L ALT 14 L Alkaline Phosphatase 95 Total Protein 8.4 H Albumin 2.6 L Globulin 5.8 H Albumin/Globulin Ratio 0.4 L Urine Color Urine Clarity Urine pH Ur Specific [place] Urine Protein Urine Glucose (UA) Urine Ketones Urine Occult Blood Urine Nitrite Urine Bilirubin Urine Urobilinogen Ur Leukocyte Esterase Urine RBC Urine WBC Ur Squamous Epith Cells Urine Bacteria Urine Mucus 10/25/18 16:45 WBC RBC Hgb Hct MCV MCH MCHC RDW RDW Differential Plt Count MPV Immature Gran % (Auto) Neut % (Auto) Lymph % (Auto) [place] % (Auto) Eos % (Auto) Baso % (Auto) Absolute Neuts (auto) Absolute Lymphs (auto) Total Counted Sodium Potassium Chloride Carbon Dioxide Anion Gap BUN Creatinine Estim Creat Clear Calc Est GFR (MDRD) Af Amer Est GFR (MDRD) Non-Af BUN/Creatinine Ratio Glucose Lactic Acid Calcium Total Bilirubin AST ALT Alkaline Phosphatase Total Protein Albumin Globulin Albumin/Globulin Ratio Urine Color Yellow Urine Clarity Sl. Cloudy Urine pH 9.0 Ur Specific [place] 1.015 Urine Protein 30 H Urine Glucose (UA) Normal Urine Ketones Negative Urine Occult Blood 250 H Urine Nitrite Positive H Urine Bilirubin Negative Urine Urobilinogen Normal Ur Leukocyte Esterase 500 H Urine RBC 50-100 SEEN Urine WBC 25-50 SEEN Ur Squamous Epith Cells 0 SEEN Urine Bacteria 2+ Urine Mucus 0 SEEN Assessment/Plan All Active Problems MRSA (methicillin resistant staph aureus) culture positive (Acute) Infected decubitus ulcer (Acute) Complicated UTI (urinary tract infection) (Acute) Right ischial pressure sore, stage 4 (Resolved) The patient is a 23 y/o M w/ PMHx: Spina Bifida, Paraplegia, History of Osteomyelitis Coccyx now resolved, Currently Stage III R Ischial Pressure Ulcer who presents to the [facility] ED on 10/25/17 with history of visit routinely to the wound care center on day of presentation for ongoing evaluation of right ischial pressure ulcer with notable fever and tachycardia. (1) Acute Sepsis secondary to Acute Complicated Urinary Tract Infection: Will admit to [facility] upon ED evaluation remarkable, pending UCx, continue IVFs, monitor I/Os, continue IV Zosyn w/ transition as able pending sensitivities and speciation. Bld cx x 2 obtained in the ED. (2) Stage III Ischial Pressure Ulcer: VAC removed in the ED, family and patient note chronic odor with placental treatments, recent evaluation at [facility] on 10/25/17, will continue wound care consult, replace VAC. 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 (4) DVT Prophylaxis: SCDs, lovenox. Code Visit Inpatient E&M: 10197 Init Hosp L3
[2018-10-25 19:27] VITALS: BMI 13.4
[2018-10-25 19:29] VITALS: BP 110/73; PULSE 111; RESP 16; TEMP 36.4; O2SAT 99
[2018-10-25] MEDS: 0.9% Normal Saline 1,000 ML 100 ML IV (19:36)
[2018-10-25 19:38] LABS: Phosphorus 2.6 mg/dL (2.5-4.9)
[2018-10-25] MEDS: Piperacil/Tazobactam 3.375 GM Q8 PREMIX IV (22:45)
[2018-10-26 01:51] VITALS: BP 100/67; PULSE 100; RESP 16; TEMP 36.3; O2SAT 99
[2018-10-26] MEDS: 0.9% Normal Saline 1,000 ML 100 ML IV (05:31)
[2018-10-26] MEDS: Piperacil/Tazobactam 3.375 GM Q8 PREMIX IV (05:31)
[2018-10-26 07:50] VITALS: BP 106/67; PULSE 78; RESP 16; TEMP 36.9; O2SAT 99
[2018-10-26] MEDS: Vitamin E 400 UNITS Capsule PO (07:52)
[2018-10-26 07:57] LABS: Anion Gap 8 (5-15); BUN 13 mg/dL (7-18); BUN/Creat Ratio 52.4 RATIO (10-20); Chloride 107 mmol/L (98-107); Creatinine, Serum 0.25 mg/dL (0.70-1.30); EST Glomerular Filtration Rate 500 mL/min (>60); Est Glom Filt Rate - Afr Amer 605 mL/min (>60); Glucose 83 mg/dL (74-106); Potassium 3.7 mmol/L (3.5-5.1); Sodium Level 140 mmol/L (136-145)
[2018-10-26 07:58] VITALS: O2SAT 98
[2018-10-26 08:04] LABS: Absolute Lymphocyte Count 1.69 X10^3/ul (0.83-4.51); Absolute Neutrophil Count 3.1 X10^3/uL (2.0-7.7); Basophil# 0.03 X10^3/uL; Basophil% 0.5 % (0-1); Eosinophil# 0.14 X10^3/uL; Eosinophils% 2.6 % (0-5); Hematocrit 33.7 % (40-54); Hemoglobin 10.2 g/dl (13.0-16.5); Lymphocyte # 1.69 X10^3/ul (4.0); Lymphocyte % 30.9 % (19-41); Mean Corp Hgb Conc 30.3 g/gl (32-36); Mean Corpuscular Hgb 23.9 pg (27.0-32.0); Mean Corpuscular Volume 79.1 fL (80-94); Mean Platelet Vol. 8.3 fl (6.2-12.0); Monocyte# 0.55 X10^3/uL; Monocyte% 10.1 % (0-10); Neutrophil # 3.06 X10^3/uL (2.7-7.7); Neutrophil % 55.9 % (47-70); POSITIVE COUNT NO; POSITIVE DIFFERENTIAL NO; POSITIVE MORPHOLOGY NO; Platelet Count 361 K/mm3 (150-450); RBC Distribution Width SD 42.8 fl (35.1-43.9); Red Blood Count 4.26 M/mm3 (4.6-6.2); White Blood Count 5.5 K/mm3 (4.4-11.0)
[2018-10-26 09:16] VITALS: BP 106/67; PULSE 78; RESP 16; TEMP 36.9; O2SAT 99
--- NOTE | 2018-10-26 09:17 | DCINST_ITS ---
- Discharge Diagnoses Current Active Problems: Current Active and Chronic Problems Complicated UTI (urinary tract infection) (Acute) You will use the following diet at home:: No restrictions Your liquids should be the consistency of: Regular/Thin Discharge Activity: Return to Normal Activity Weight Bearing Status: - - resume previous activity level Allergies/Adverse Reactions: Allergies latex Allergy (Verified 10/25/18 15:25) Unknown unsure as charted levofloxacin [Levofloxacin] Allergy (Verified 10/25/18 15:25) Rash sulfamethoxazole [From Bactrim] Allergy (Verified 10/25/18 15:25) Rash trimethoprim [From Bactrim] Allergy (Verified 10/25/18 15:25) Rash Medications to take at Discharge Polyethylene Glycol 3350 [Miralax] 17 gm PO DAILY #30 05/06/14 Argin/Glut/Cahmb/Collag/Mv-Min [Mark Packet] 1 each PO BID MDD SUPPLEMENT 10/25/18 Caloric Supplement [Benecalorie] 7.5 kcal PO DAILY 10/25/18 Cyproheptadine HCl 4 mg PO DAILY 10/25/18 Lactose-Reduced Food [Ensure Plus] 237 ml PO BID 10/25/18 Vitamin E 400 units PO DAILY 10/25/18 Acetaminophen [Tylenol Tablet] 650 mg PO Q6H PRN PRN tablet 10/26/18 Amoxicillin/Potassium Clav [Augmentin 875-125 Tablet] 1 each PO BID #14 tablet 10/26/18 The following prescriptions were given: Amoxicillin/Potassium Clav [Augmentin 875-125 Tablet] 1 each PO BID #14 tablet Primary Care Physician: Syed Hernandes DO [Primary Care Provider] - Please follow up with your Primary Care Physician in: in 2-3 weeks Test Results: Test results from this visit will be discussed in further detail at your follow- up appointment, if applicable.
--- NOTE | 2018-10-26 09:28 | NURSING ---
specialty mattress was ordered by BRUCE Veronica on shift mechanic- from [facility] with confirmation #: [id number]. This RN called [facility] at this time and spoke with Nancy. Notified her that patient will no longer need mattress as he has been discharged. Understanding verbalized with notification that confirmation number will remain the same.
--- NOTE | 2018-10-26 09:30 | NURSING ---
patients home vac had been applied last evening as ordered by physician. Hospital vac not applied this visit.
--- NOTE | 2018-10-26 17:14 | PCM.DC.SUM ---
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 area History of osteomyelitis (Chronic) right sacral area Decubitus ulcer of right ischium, stage 2 (Chronic) Spina bifida (Chronic) Chronic osteomyelitis, pelvic region and thigh (Chronic) right sacral area Malnutrition compromising bodily function (Chronic) Hospital Course and Treatment Consultations 10/25/18 19:20 Consult: Onc/Wound/manager cafe Routine Comment: Operations: None Procedures: None Summary of Care Provided: The patient is a 23 year old M who was seen in the emergency room at [facility] after being sent in by the wound care center, it was noted that during his appointment at the wound care center he was running a temperature and he was instructed to go the ER for evaluation. Workup in the emergency room included a chest x-ray which showed no evidence of pneumonia, patient's white blood cell count was normal, patient was tachycardic, patient's respiratory rate was elevated, urinalysis was obtained which showed evidence of a urinary tract [id number] has a chronic indwelling catheter. Patient was admitted for acute sepsis secondary to acute cystitis, he was given IV antibiotics, the following morning, patient was seen and examined, his white blood cell count remained normal and he was afebrile. Patient requested discharge to home at that time and his mother who is his primary caregiver agreed that the patient should be discharged to home. On 10/26/18 patient was seen and examined: On examination he appeared in good health and spirits. Vital signs as documented. Skin warm and dry and without overt rashes. Neck without JVD. Lungs clear. Heart exam notable for regular rhythm, normal sounds and absence of murmurs, rubs or gallops. Abdomen unremarkable and without evidence of organomegaly, small bladder drainage catheter is in place. Extremities-evidence of spina bifida with atrophied lower extremities. Neuro: Cranial nerves II through XII are grossly intact Psych: Patient is alert and oriented x3, he does not appear anxious or depressed On 10/26/18, patient was seen and examined felt to be in stable condition for discharge home - Physical Exam Vital Signs Temp Pulse Resp BP Pulse Ox 98.5 F 78 16 106/67 99 10/26/18 09:16 10/26/18 09:16 10/26/18 09:16 10/26/18 09:16 10/26/18 09:16 Oxygen Delivery Method Room Air Weight: 32.4 kg Body Mass Index (BMI) 13.4 Intake and Output for Last 24 Hours 10/24/18 10/25/18 10/26/18 23:59 23:59 23:59 Intake Total 1098 / 1098 Output Total 575 / 575 Balance 523 / 523 Microbiology Past 72 Hours 10/25/18 15:50 Blood Culture - Preliminary Blood Culture (Wb) - Anticubital Left 10/25/18 16:10 Influenza Types A,B Direct FA (LELE) - Final Mucosa - Nose Laboratory Tests Past 24 Hrs 10/25/18 10/25/18 10/26/18 15:50 16:45 07:12 WBC 5.5 RBC 4.26 L Hgb 10.2 L Hct 33.7 L MCV 79.1 L MCH 23.9 L MCHC 30.3 L RDW 15.0 H RDW Differential 42.8 Plt Count 361 MPV 8.3 Immature Gran % (Auto) 0.000 Neut % (Auto) 55.9 Lymph % (Auto) 30.9 [place] % (Auto) 10.1 H Eos % (Auto) 2.6 Baso % (Auto) 0.5 Absolute Neuts (auto) 3.1 Absolute Lymphs (auto) 1.69 Total Counted Not Reportable Sodium Potassium Chloride Carbon Dioxide Anion Gap BUN Creatinine Estim Creat Clear Calc Est GFR (MDRD) Af Amer Est GFR (MDRD) Non-Af BUN/Creatinine Ratio Glucose Calcium Phosphorus 2.6 Magnesium 2.0 Urine Color Yellow Urine Clarity Sl. Cloudy Urine pH 9.0 Ur Specific [place] 1.015 Urine Protein 30 H Urine Glucose (UA) Normal Urine Ketones Negative Urine Occult Blood 250 H Urine Nitrite Positive H Urine Bilirubin Negative Urine Urobilinogen Normal Ur Leukocyte Esterase 500 H Urine RBC 50-100 SEEN Urine WBC 25-50 SEEN Ur Squamous Epith Cells 0 SEEN Urine Bacteria 2+ Urine Mucus 0 SEEN 10/26/18 07:12 WBC RBC Hgb Hct MCV MCH MCHC RDW RDW Differential Plt Count MPV Immature Gran % (Auto) Neut % (Auto) Lymph % (Auto) [place] % (Auto) Eos % (Auto) Baso % (Auto) Absolute Neuts (auto) Absolute Lymphs (auto) Total Counted Sodium 140 Potassium 3.7 Chloride 107 Carbon Dioxide 25.0 Anion Gap 8 BUN 13 Creatinine 0.25 L Estim Creat Clear Calc 214.20 Est GFR (MDRD) Af Amer 605 Est GFR (MDRD) Non-Af 500 BUN/Creatinine Ratio 52.4 H Glucose 83 Calcium 8.0 L Phosphorus Magnesium Urine Color Urine Clarity Urine pH Ur Specific [place] Urine Protein Urine Glucose (UA) Urine Ketones Urine Occult Blood Urine Nitrite Urine Bilirubin Urine Urobilinogen Ur Leukocyte Esterase Urine RBC Urine WBC Ur Squamous Epith Cells Urine Bacteria Urine Mucus Discharge Activity: Return to Normal Activity Weight Bearing Status: - - resume previous activity level Home Medications: Medications to take at Discharge Polyethylene Glycol 3350 [Miralax] 17 gm PO DAILY #30 05/06/14 Argin/Glut/Cahmb/Collag/Mv-Min [Mark Packet] 1 each PO BID MDD SUPPLEMENT 10/25/18 Caloric Supplement [Benecalorie] 7.5 kcal PO DAILY 10/25/18 Cyproheptadine HCl 4 mg PO DAILY 10/25/18 Lactose-Reduced Food [Ensure Plus] 237 ml PO BID 10/25/18 Vitamin E 400 units PO DAILY 10/25/18 Acetaminophen [Tylenol Tablet] 650 mg PO Q6H PRN PRN tablet 10/26/18 Amoxicillin/Potassium Clav [Augmentin 875-125 Tablet] 1 each PO BID #14 tablet 10/26/18 Following Prescrptions Were Given to Patient: Amoxicillin/Potassium Clav [Augmentin 875-125 Tablet] 1 each PO BID #14 tablet Primary Care Physician: Syed Hernandes DO [Primary Care Provider] - Please follow up with your Primary Care Physician in: in 2-3 weeks Disposition: Home Minutes spent on discharge:: 31 Patient Condition:: Stable Medical Necessity - Tobacco Use Smoking Status: Never smoker Tobacco Use: Non-smoker Meaningful Use Info Meaningful Use Diagnoses (Choose all that apply): None applicable Code Visit Inpatient E&M: 09060 Disch Hosp
--- NOTE | 2018-10-26 17:18 | DS.PCM_ITS ---
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 area History of osteomyelitis (Chronic) right sacral area Decubitus ulcer of right ischium, stage 2 (Chronic) Spina bifida (Chronic) Chronic osteomyelitis, 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 Workup in the emergency room included a chest x-ray which showed no evidence of pneumonia, patient's white blood cell count was normal, patient was tachycardic, patient's respiratory rate was elevated, urinalysis was obtained which showed evidence of a urinary tract rdvfcwevn-qfwkrow-fvazmmv has a chronic indwelling catheter. Patient was admitted for acute sepsis secondary to acute cystitis, he was given IV antibiotics, the following morning, patient was seen and examined, his white blood cell count remained normal and he was afebrile. Patient requested discharge to home at that time and his mother who is his primary caregiver agreed that the patient should be discharged to home. On 10/26/18 patient was seen and examined: On examination he appeared in good health and spirits. Vital signs as documented. Skin warm and dry and without overt rashes. Neck without JVD. Lungs clear. Heart exam notable for regular rhythm, normal sounds and absence of murmurs, rubs or gallops. Abdomen unremarkable and without evidence of organomegaly, small bladder drainage catheter is in place. Extremities-evidence of spina bifida with atrophied lower extremities. Neuro: Cranial nerves II through XII are grossly intact Psych: Patient is alert and oriented x3, he does not appear anxious or depressed On 10/26/18, patient was seen and examined felt to be in stable condition for discharge home - Physical Exam Vital Signs Temp Pulse Resp BP Pulse Ox 98.5 F 78 16 106/67 99 10/26/18 09:16 10/26/18 09:16 10/26/18 09:16 10/26/18 09:16 10/26/18 09:16 Oxygen Delivery Method Room Air Weight: 32.4 kg Body Mass Index (BMI) 13.4 Intake and Output for Last 24 Hours 10/24/18 10/25/18 10/26/18 23:59 23:59 23:59 Intake Total 1098 / 1098 Output Total 575 / 575 Balance 523 / 523 Microbiology Past 72 Hours 10/25/18 15:50 Blood Culture - Preliminary Blood Culture (Wb) - Anticubital Left 10/25/18 16:10 Influenza Types A,B Direct FA (LELE) - Final Mucosa - Nose Laboratory Tests Past 24 Hrs 10/25/18 10/25/18 10/26/18 15:50 16:45 07:12 WBC 5.5 RBC 4.26 L Hgb 10.2 L Hct 33.7 L MCV 79.1 L MCH 23.9 L MCHC 30.3 L RDW 15.0 H RDW Differential 42.8 Plt Count 361 MPV 8.3 Immature Gran % (Auto) 0.000 Neut % (Auto) 55.9 Lymph % (Auto) 30.9 [place] % (Auto) 10.1 H Eos % (Auto) 2.6 Baso % (Auto) 0.5 Absolute Neuts (auto) 3.1 Absolute Lymphs (auto) 1.69 Total Counted Not Reportable Sodium Potassium Chloride Carbon Dioxide Anion Gap BUN Creatinine Estim Creat Clear Calc Est GFR (MDRD) Af Amer Est GFR (MDRD) Non-Af BUN/Creatinine Ratio Glucose Calcium Phosphorus 2.6 Magnesium 2.0 Urine Color Yellow Urine Clarity Sl. Cloudy Urine pH 9.0 Ur Specific [place] 1.015 Urine Protein 30 H Urine Glucose (UA) Normal Urine Ketones Negative Urine Occult Blood 250 H Urine Nitrite Positive H Urine Bilirubin Negative Urine Urobilinogen Normal Ur Leukocyte Esterase 500 H Urine RBC 50-100 SEEN Urine WBC 25-50 SEEN Ur Squamous Epith Cells 0 SEEN Urine Bacteria 2+ Urine Mucus 0 SEEN 10/26/18 07:12 WBC RBC Hgb Hct MCV MCH MCHC RDW RDW Differential Plt Count MPV Immature Gran % (Auto) Neut % (Auto) Lymph % (Auto) [place] % (Auto) Eos % (Auto) Baso % (Auto) Absolute Neuts (auto) Absolute Lymphs (auto) Total Counted Sodium 140 Potassium 3.7 Chloride 107 Carbon Dioxide 25.0 Anion Gap 8 BUN 13 Creatinine 0.25 L Estim Creat Clear Calc 214.20 Est GFR (MDRD) Af Amer 605 Est GFR (MDRD) Non-Af 500 BUN/Creatinine Ratio 52.4 H Glucose 83 Calcium 8.0 L Phosphorus Magnesium Urine Color Urine Clarity Urine pH Ur Specific [place] Urine Protein Urine Glucose (UA) Urine Ketones Urine Occult Blood Urine Nitrite Urine Bilirubin Urine Urobilinogen Ur Leukocyte Esterase Urine RBC Urine WBC Ur Squamous Epith Cells Urine Bacteria Urine Mucus Discharge Activity: Return to Normal Activity Weight Bearing Status: - - resume previous activity level Home Medications: Medications to take at Discharge Polyethylene Glycol 3350 [Miralax] 17 gm PO DAILY #30 05/06/14 Argin/Glut/Cahmb/Collag/Mv-Min [Mark Packet] 1 each PO BID MDD SUPPLEMENT 10/25/18 Caloric Supplement [Benecalorie] 7.5 kcal PO DAILY 10/25/18 Cyproheptadine HCl 4 mg PO DAILY 10/25/18 Lactose-Reduced Food [Ensure Plus] 237 ml PO BID 10/25/18 Vitamin E 400 units PO DAILY 10/25/18 Acetaminophen [Tylenol Tablet] 650 mg PO Q6H PRN PRN tablet 10/26/18 Amoxicillin/Potassium Clav [Augmentin 875-125 Tablet] 1 each PO BID #14 tablet 10/26/18 Following Prescrptions Were Given to Patient: Amoxicillin/Potassium Clav [Augmentin 875-125 Tablet] 1 each PO BID #14 tablet Primary Care Physician: Syed Hernandes DO [Primary Care Provider] - Please follow up with your Primary Care Physician in: in 2-3 weeks Disposition: Home Minutes spent on discharge:: 31 Patient Condition:: Stable Medical Necessity - Tobacco Use Smoking Status: Never smoker Tobacco Use: Non-smoker Meaningful Use Info Meaningful Use Diagnoses (Choose all that apply): None applicable Code Visit Inpatient E&M: 83439 Disch Hosp
== END 2018-10-26 10:10 | disposition home or self-care (01) | DRG 698 ==
LOC: ED 16:01 → MS2 18:55
PROVIDERS: Admitting Provider Family Medicine; Emergency Provider Emergency Medicine; Family Provider Family Medicine; PCP Family Medicine; Visit Provider Internal Medicine
DX: T83.511A Infection and inflammatory reaction due to indwelling urethral catheter, initial encounter (principal); L89.314 Pressure ulcer of right buttock, stage 4; A41.50 Gram-negative sepsis, unspecified; E43 Unspecified severe protein-calorie malnutrition; G82.20 Paraplegia, unspecified; N30.00 Acute cystitis without hematuria; Z68.1 Body mass index [BMI] 19.9 or less, adult; Q05.4 Unspecified spina bifida with hydrocephalus; Z98.2 Presence of cerebrospinal fluid drainage device; Z87.440 Personal history of urinary (tract) infections; B96.89 Other specified bacterial agents as the cause of diseases classified elsewhere
CPT/HCPCS: 36415; 71045; 74176; 80048; 80053; 81001; 83605; 83735; 84100; 85025; 87040; 87077; 87086; 87088; 87184; 87186; 87804; 99282; J7030; A4216

== ENCOUNTER 2018-11-22 09:30 | Outpatient (RCR) | payer OTHER, SELFPAY ==
[2018-10-23 00:43] VITALS: BP 98/69; PULSE 91; RESP 16; TEMP 36.4
[2018-11-01 10:25] VITALS: BP 113/69; PULSE 91; RESP 18; TEMP 36.4
--- NOTE | 2018-11-01 11:40 | PCM.WC.PN ---
(1) Complicated UTI (urinary tract infection) Status: Acute Current Visit: Yes Code(s): N39.0 - Urinary tract infection, site not specified (2) Decubitus ulcer of right ischium, stage 3 Status: Chronic Current Visit: Yes Code(s): L89.313 - Pressure ulcer of right buttock, stage 3 (3) Spina bifida Status: Chronic Current Visit: Yes Qualifiers: Code(s): Q05.9 - Spina bifida, unspecified Type of Wound Chief Complaint: Right ischium ulcer History of Wound: Marcos is a 23-year-old with past medical history of spina bifida, paraplegia, and Stage 3 right ischial pressure ulceration. The patient has been long-term at our facility, with care provided by other providers and most recently by Alondra Menjivar NP. Transfer of care today due to insurance change. No new complaints at this time. Has had one application of epi fix so far. Progress of Wound: Improving. - Physical Exam Vital Signs Temp Pulse Resp BP 97.5 F L 91 18 113/69 11/01/18 10:25 11/01/18 10:25 11/01/18 10:25 11/01/18 10:25 General: Alert, Oriented x3, Cooperative, No apparent distress HEENT: Atraumatic, Normocephalic Oral: Moist Mucosa Neck: Supple Lungs: Normal air movement Abdomen: Non Tender Extremities: No cyanosis Skin: Ulcer/ Wound Wound Measurements and Assessment WC - Nurse 1 - General Ulcer Measurement Start: 10/25/18 18:54 Freq: Status: Active Protocol: Activity Type Activity Date Activity User E-Sign Co-Sign Detail Recorded Client Recorded Date Recorded By Document 11/01/18 10:25 RB [id number] 11/01/18 10:27 RB 11/01/18 10:25 Wound Center Nurse 1 [Ulcer Assessment] #6 RIGHT ISCHIUM -Combined with other wound No -Current Size (cm) - Length 6 -Current Size (cm) - Width 5.9 -Current Size (cm) - Depth 0.9 -Total Square Cm 35.4 -Tunneling No -Undermining/Tunneling No -Circular Undermining No -Exudate Amt Small -Exudate Type Serosanguineous -Wound Margin Thickened & Rolled Under -Granulation Amt Medium (34-66%) -Granulation Quality [place] -Slough/Fibrin Yes -Necrosis Amt Medium (34-66%) -Necrotic Tissue Type Adherent Slough -Structure Exposed N/A -Texture (Ida-wound Skin Appearance) Assessed Excoriation -Moisture (Ida-wound Skin Appearance Assessed ) -Color (Ida-wound Skin Appearance) Assessed -Temperature (Ida-wound Skin No Abnormality Appearance) (Pt Warm) -Tenderness on Palpation (Ida-wound No Skin Appearance) -Ulcer Cleansing Rinsed/ Irrigated with Saline -Foul Odor after Cleansing No -Anesthetic Used 5% Lidocaine Gel - Nurse 2 - General Ulcer CM Notes Start: 10/25/18 18:54 Freq: Status: Active Protocol: Activity Type Activity Date Activity User E-Sign Co-Sign Detail Recorded Client Recorded Date Recorded By Document 11/01/18 10:36 MW [id number] 11/01/18 10:51 MW 11/01/18 10:36 Wound Center Nurse 2 [Procedure/Treatment] -Time 10:40 -Correct Patient Yes -Correct Side, Site, Position Yes -Correct Procedure Yes -Procedure Performed Yes -Type of Procedure Debridement -Clinical Debridement Subcutaneous -Post Debridement Size (cm) - Length 4.3 -Post Debridement Size (cm) - Width 6.0 -Post Debridement Size (cm) - Depth 0.8 -Total Square Cm 25.80 -Wound/Ulcer Outcome Not Healed -Ulcer Cleansing Rinsed/ Irrigated with Saline -Foul Odor after Cleansing No -Bioengineered Tissue Yes -Type of bioengineered Tissue EPIFIX -Expiration Date 05/23/23 -Product Lot Number [id number] -Percent Used 100 -Bleeding Controlled with Pressure -Other SALINE LOT# [id number] -Offloading No -Treatment Response Procedure Tolerated Well [See Physician Procedure note for Specifics] Pain Scale: 0-10 Numeric [Pain] -Is Patient Pain Free? Yes Neurological: Cranial nerves II-XII grossly intact Psych/Mental Status: Normal Affect Debridement Note Post-Debridement Measurements/Treatment - Nurse 2 - General Ulcer CM Notes Start: 10/25/18 18:54 Freq: Status: Active Protocol: Activity Type Activity Date Activity User E-Sign Co-Sign Detail Recorded Client Recorded Date Recorded By Document 11/01/18 10:36 MW [id number] 11/01/18 10:51 MW 11/01/18 10:36 Wound Center Nurse 2 #6 RIGHT ISCHIUM -Time 10:40 -Correct Patient Yes -Correct Side, Site, Position Yes -Correct Procedure Yes -Procedure Performed Yes -Type of Procedure Debridement -Clinical Debridement Subcutaneous -Post Debridement Size (cm) - Length 4.3 -Post Debridement Size (cm) - Width 6.0 -Post Debridement Size (cm) - Depth 0.8 -Total Square Cm 25.80 -Wound/Ulcer Outcome Not Healed -Ulcer Cleansing Rinsed/ Irrigated with Saline -Foul Odor after Cleansing No -Bioengineered Tissue Yes -Type of bioengineered Tissue EPIFIX -Expiration Date 05/23/23 -Product Lot Number [id number] -Percent Used 100 -Bleeding Controlled with Pressure -Other SALINE LOT# [id number] -Offloading No -Treatment Response Procedure Tolerated Well Pain Scale: 0-10 Numeric Is Patient Pain Free? Yes b Wound debrided: Right buttock Wound Grade/Stage: Stage III Type of Debridement: Excisional debridement Anesthesia Used: 4% Lidocaine Solution Depth: Down to and including healthy tissue, in the subcutaneous layer Percentage of wound debrided: 100 Instrument Used: 7mm curette Tissue Removed: Slough and devitalized tissue Severity: Fat Layer Exposed Amount of bleeding with debridement: Mild Bleeding Controlled with: Pressure Patient tolerated procedure well Assessment/Plan Active Problems Complicated UTI (urinary tract infection) (Acute) Decubitus ulcer of right ischium, stage 3 (Chronic) Spina bifida (Chronic) Assessment: Decubitus ulcer stage III right ischium. Spina bifida. Paraplegia. History of osteomyelitis. Plan: Wound continues to show good improvement with Epifix and wound Vac. No significant concerns at this time. Was recently hospitalized for UTI sepsis and was discharged on Augmentin. Last urine culture reviewed which grew pseudomonas aeruginosa not sensitive to current antibiotic. Debridement done as doumented above, procedure was well-tolerated. 6th application of epi-fix done today using 100% of product. Wound veil overtop, moistened with saline. Black foam and wound VAC over top. However, this cannot be applied during this visit and ABD was placed due to diarrhea. Will be applied at home. Leave in place for a week. He ava definitely Continue to require more applications of epifix and continued wound Vac use. Still a significant size and he did poorly with other products in the past. Continue offloading. Ciprofloxacin 500 mg twice daily for UTI secondary to Pseudomonas aeruginosa. Increase probiotic and yogurt intake to help with diarrhea. They however states that it has not contaminated wound. Increased protein intake recommended. Advised to call with any questions or concerns. Follow-up with me in 1 week. This note was generated with [employer] dictation software. It may contain incorrect words, spelling, and punctuation that were not noted in checking the note before signing.
--- NOTE | 2018-11-01 11:45 | PN.PCM_ITS ---
(1) Complicated UTI (urinary tract infection) Status: Acute Current Visit: Yes Code(s): N39.0 - Urinary tract infection, site not specified (2) Decubitus ulcer of right ischium, stage 3 Status: Chronic Current Visit: Yes Code(s): L89.313 - Pressure ulcer of right buttock, stage 3 (3) Spina bifida Status: Chronic Current Visit: Yes Qualifiers: Code(s): Q05.9 - Spina bifida, unspecified Type of Wound Chief Complaint: Right ischium ulcer History of Wound: Marcos is a 23-year-old with past medical history of spina bifida, paraplegia, and Stage 3 right ischial pressure ulceration. The patient has been long-term at our facility, with care provided by other providers and most recently by Alondra Menjivar NP. Transfer of care today due to insurance change. No new complaints at this time. Has had one application of epi fix so far. Progress of Wound: Improving. - Physical Exam Vital Signs Temp Pulse Resp BP 97.5 F L 91 18 113/69 11/01/18 10:25 11/01/18 10:25 11/01/18 10:25 11/01/18 10:25 General: Alert, Oriented x3, Cooperative, No apparent distress HEENT: Atraumatic, Normocephalic Oral: Moist Mucosa Neck: Supple Lungs: Normal air movement Abdomen: Non Tender Extremities: No cyanosis Skin: Ulcer/ Wound Wound Measurements and Assessment WC - Nurse 1 - General Ulcer Measurement Start: 10/25/18 18:54 Freq: Status: Active Protocol: Activity Type Activity Date Activity User E-Sign Co-Sign Detail Recorded Client Recorded Date Recorded By Document 11/01/18 10:25 RB [id number] 11/01/18 10:27 RB 11/01/18 10:25 Wound Center Nurse 1 [Ulcer Assessment] #6 RIGHT ISCHIUM -Combined with other wound No -Current Size (cm) - Length 6 -Current Size (cm) - Width 5.9 -Current Size (cm) - Depth 0.9 -Total Square Cm 35.4 -Tunneling No -Undermining/Tunneling No -Circular Undermining No -Exudate Amt Small -Exudate Type Serosanguineous -Wound Margin Thickened & Rolled Under -Granulation Amt Medium (34-66%) -Granulation Quality [place] -Slough/Fibrin Yes -Necrosis Amt Medium (34-66%) -Necrotic Tissue Type Adherent Slough -Structure Exposed N/A -Texture (Ida-wound Skin Appearance) Assessed Excoriation -Moisture (Ida-wound Skin Appearance Assessed ) -Color (Ida-wound Skin Appearance) Assessed -Temperature (Ida-wound Skin No Abnormality Appearance) (Pt Warm) -Tenderness on Palpation (Ida-wound No Skin Appearance) -Ulcer Cleansing Rinsed/ Irrigated with Saline -Foul Odor after Cleansing No -Anesthetic Used 5% Lidocaine Gel - Nurse 2 - General Ulcer CM Notes Start: 10/25/18 18:54 Freq: Status: Active Protocol: Activity Type Activity Date Activity User E-Sign Co-Sign Detail Recorded Client Recorded Date Recorded By Document 11/01/18 10:36 MW [id number] 11/01/18 10:51 MW 11/01/18 10:36 Wound Center Nurse 2 [Procedure/Treatment] -Time 10:40 -Correct Patient Yes -Correct Side, Site, Position Yes -Correct Procedure Yes -Procedure Performed Yes -Type of Procedure Debridement -Clinical Debridement Subcutaneous -Post Debridement Size (cm) - Length 4.3 -Post Debridement Size (cm) - Width 6.0 -Post Debridement Size (cm) - Depth 0.8 -Total Square Cm 25.80 -Wound/Ulcer Outcome Not Healed -Ulcer Cleansing Rinsed/ Irrigated with Saline -Foul Odor after Cleansing No -Bioengineered Tissue Yes -Type of bioengineered Tissue EPIFIX -Expiration Date 05/23/23 -Product Lot Number [id number] -Percent Used 100 -Bleeding Controlled with Pressure -Other SALINE LOT# [id number] -Offloading No -Treatment Response Procedure Tolerated Well [See Physician Procedure note for Specifics] Pain Scale: 0-10 Numeric [Pain] -Is Patient Pain Free? Yes Neurological: Cranial nerves II-XII grossly intact Psych/Mental Status: Normal Affect Debridement Note Post-Debridement Measurements/Treatment - Nurse 2 - General Ulcer CM Notes Start: 10/25/18 18:54 Freq: Status: Active Protocol: Activity Type Activity Date Activity User E-Sign Co-Sign Detail Recorded Client Recorded Date Recorded By Document 11/01/18 10:36 MW [id number] 11/01/18 10:51 MW 11/01/18 10:36 Wound Center Nurse 2 #6 RIGHT ISCHIUM -Time 10:40 -Correct Patient Yes -Correct Side, Site, Position Yes -Correct Procedure Yes -Procedure Performed Yes -Type of Procedure Debridement -Clinical Debridement Subcutaneous -Post Debridement Size (cm) - Length 4.3 -Post Debridement Size (cm) - Width 6.0 -Post Debridement Size (cm) - Depth 0.8 -Total Square Cm 25.80 -Wound/Ulcer Outcome Not Healed -Ulcer Cleansing Rinsed/ Irrigated with Saline -Foul Odor after Cleansing No -Bioengineered Tissue Yes -Type of bioengineered Tissue EPIFIX -Expiration Date 05/23/23 -Product Lot Number [id number] -Percent Used 100 -Bleeding Controlled with Pressure -Other SALINE LOT# [id number] -Offloading No -Treatment Response Procedure Tolerated Well Pain Scale: 0-10 Numeric Is Patient Pain Free? Yes b Wound debrided: Right buttock Wound Grade/Stage: Stage III Type of Debridement: Excisional debridement Anesthesia Used: 4% Lidocaine Solution Depth: Down to and including healthy tissue, in the subcutaneous layer Percentage of wound debrided: 100 Instrument Used: 7mm curette Tissue Removed: Slough and devitalized tissue Severity: Fat Layer Exposed Amount of bleeding with debridement: Mild Bleeding Controlled with: Pressure Patient tolerated procedure well Assessment/Plan Active Problems Complicated UTI (urinary tract infection) (Acute) Decubitus ulcer of right ischium, stage 3 (Chronic) Spina bifida (Chronic) Assessment: Decubitus ulcer stage III right ischium. Spina bifida. Paraplegia. History of osteomyelitis. Plan: Wound continues to show good improvement with Epifix and wound Vac. No significant concerns at this time. Was recently hospitalized for UTI sepsis and was discharged on Augmentin. Last urine culture reviewed which grew pseudomonas aeruginosa not sensitive to current antibiotic. Debridement done as doumented above, procedure was well-tolerated. 6th application of epi-fix done today using 100% of product. Wound veil overtop, moistened with saline. Black foam and wound VAC over top. However, this cannot be applied during this visit and ABD was placed due to diarrhea. Will be applied at home. Leave in place for a week. He ava definitely Continue to require more applications of epifix and continued wound Vac use. Still a significant size and he did poorly with other products in the past. Continue offloading. Ciprofloxacin 500 mg twice daily for UTI secondary to Pseudomonas aeruginosa. Increase probiotic and yogurt intake to help with diarrhea. They however states that it has not contaminated wound. Increased protein intake recommended. Advised to call with any questions or concerns. Follow-up with me in 1 week. This note was generated with [employer] dictation software. It may contain incorrect words, spelling, and punctuation that were not noted in checking the note before signing.
[2018-11-08 09:39] VITALS: BP 100/66; PULSE 92; RESP 18; TEMP 36.6
--- NOTE | 2018-11-08 11:59 | PCM.WC.PN ---
(1) Decubitus ulcer of right ischium, stage 3 Status: Chronic Current Visit: Yes Code(s): L89.313 - Pressure ulcer of right buttock, stage 3 (2) Spina bifida Status: Chronic Current Visit: Yes Qualifiers: Code(s): Q05.9 - Spina bifida, unspecified (3) Complicated UTI (urinary tract infection) Status: Acute Current Visit: Yes Code(s): N39.0 - Urinary tract infection, site not specified Type of Wound Chief Complaint: Right ischium ulcer History of Wound: Marcos is a 23-year-old with past medical history of spina bifida, paraplegia, and Stage 3 right ischial pressure ulceration. The patient has been long-term at our facility, with care provided by other providers and most recently by Alondra Menjivar NP. Transfer of care today due to insurance change. No new complaints at this time. Has had one application of epi fix so far. Progress of Wound: Improving. No new complaints at this time. - Physical Exam Vital Signs Temp Pulse Resp BP 98 F 92 18 100/66 11/08/18 09:39 11/08/18 09:39 11/08/18 09:39 11/08/18 09:39 General: Alert, Oriented x3, Cooperative, No apparent distress HEENT: Atraumatic, Normocephalic Oral: Moist Mucosa Neck: Supple Lungs: Normal air movement Cardiovascular: Regular rate, Normal S1, Normal S2 Abdomen: Non Tender Extremities: No cyanosis Skin: Ulcer/ Wound Wound Measurements and Assessment WC - Nurse 1 - General Ulcer Measurement Start: 10/25/18 18:54 Freq: Status: Active Protocol: Activity Type Activity Date Activity User E-Sign Co-Sign Detail Recorded Client Recorded Date Recorded By Document 11/08/18 09:39 DL [id number] 11/08/18 09:52 DL 11/08/18 09:39 Wound Center Nurse 1 [Ulcer Assessment] #6 RIGHT ISCHIUM -Current Size (cm) - Length 3.2 -Current Size (cm) - Width 5.8 -Current Size (cm) - Depth 0.9 -Total Square Cm 18.56 -Photo Taken No -Exudate Amt Medium -Exudate Type Serosanguineous -Wound Margin Thickened & Rolled Under -Granulation Amt Large (67-100%) -Granulation Quality Red -Necrosis Amt Small (1-33%) -Necrotic Tissue Type Adherent Slough -Structure Exposed N/A -Texture (Ida-wound Skin Appearance) Scarring -Moisture (Ida-wound Skin Appearance Maceration ) -Color (Ida-wound Skin Appearance) Rubor -Temperature (Ida-wound Skin No Abnormality Appearance) (Pt Warm) -Tenderness on Palpation (Ida-wound No Skin Appearance) -Ulcer Cleansing Wound Cleanser -Foul Odor after Cleansing No -Anesthetic Used 4% Lidocaine Solution - Nurse 2 - General Ulcer CM Notes Start: 10/25/18 18:54 Freq: Status: Active Protocol: Activity Type Activity Date Activity User E-Sign Co-Sign Detail Recorded Client Recorded Date Recorded By Document 11/08/18 10:01 MW [id number] 11/08/18 10:12 MW 11/08/18 10:01 Wound Center Nurse 2 [Procedure/Treatment] -Time 10:01 -Correct Patient Yes -Correct Side, Site, Position Yes -Correct Procedure Yes -Procedure Performed Yes -Type of Procedure Debridement -Clinical Debridement Subcutaneous -Post Debridement Size (cm) - Length 3.0 -Post Debridement Size (cm) - Width 6.0 -Post Debridement Size (cm) - Depth 1.0 -Total Square Cm 18.00 -Wound/Ulcer Outcome Not Healed -Ulcer Cleansing Rinsed/ Irrigated with Saline -Foul Odor after Cleansing No -Type of bioengineered Tissue EPIFIX -Expiration Date 05/23/23 -Product Lot Number [id number] -Percent Used 100 -Bleeding Controlled with Pressure -Other SALINE LOT # [id number] -Offloading No -Treatment Response Procedure Tolerated Well [See Physician Procedure note for Specifics] Pain Scale: 0-10 Numeric [Pain] -Is Patient Pain Free? Yes Musculoskeletal: No Muscle Wasting Neurological: Cranial nerves II-XII grossly intact Psych/Mental Status: Normal Affect Debridement Note Post-Debridement Measurements/Treatment - Nurse 2 - General Ulcer CM Notes Start: 10/25/18 18:54 Freq: Status: Active Protocol: Activity Type Activity Date Activity User E-Sign Co-Sign Detail Recorded Client Recorded Date Recorded By Document 11/01/18 10:36 MW [id number] 11/01/18 10:51 MW Document 11/08/18 10:01 MW [id number] 11/08/18 10:12 MW 11/01/18 11/08/18 10:36 10:01 Wound Center Nurse 2 #6 RIGHT ISCHIUM -Time 10:40 10:01 -Correct Patient Yes Yes -Correct Side, Site, Position Yes Yes -Correct Procedure Yes Yes -Procedure Performed Yes Yes -Type of Procedure Debridement Debridement -Clinical Debridement Subcutaneous Subcutaneous -Post Debridement Size (cm) - Length 4.3 3.0 -Post Debridement Size (cm) - Width 6.0 6.0 -Post Debridement Size (cm) - Depth 0.8 1.0 -Total Square Cm 25.80 18.00 -Wound/Ulcer Outcome Not Healed Not Healed -Ulcer Cleansing Rinsed/ Rinsed/ Irrigated with Irrigated with Saline Saline -Foul Odor after Cleansing No No -Bioengineered Tissue Yes -Type of bioengineered Tissue EPIFIX EPIFIX -Expiration Date 05/23/23 05/23/23 -Product Lot Number [id number] -Percent Used 100 100 -Bleeding Controlled with Pressure Pressure -Other SALINE LOT# SALINE LOT # [id number] -Offloading No No -Treatment Response Procedure Procedure Tolerated Well Tolerated Well Pain Scale: 0-10 Numeric Is Patient Pain Free? Yes Yes Wound debrided: Right buttock Wound Grade/Stage: stage IV Type of Debridement: Excisional debridement Anesthesia Used: 4% Lidocaine Solution Depth: Down to and including healthy tissue, in the subcutaneous layer Percentage of wound debrided: 100 - , Denies Instrument Used: 5mm curette Tissue Removed: Slough and devitalized tissue Severity: Fat Layer Exposed Amount of bleeding with debridement: Mild Bleeding Controlled with: Pressure Patient tolerated procedure well Assessment/Plan Active Problems Complicated UTI (urinary tract infection) (Acute) Decubitus ulcer of right ischium, stage 3 (Chronic) Spina bifida (Chronic) Assessment: Decubitus ulcer stage III right ischium. Spina bifida. Paraplegia. History of osteomyelitis. Plan: Wound continues to show good improvement with Epifix and wound Vac. No significant concerns at this time. Debridement done as doumented above, procedure was well-tolerated. 7th application of epi-fix done today using 100% of product. Wound veil overtop, moistened with saline. Black foam and wound VAC over top. Leave in place for a week. He will definitely Continue to require more applications of epifix and continued wound Vac use. Still a significant size and he did poorly with other products in the past. Continue offloading. Increased protein intake recommended. Advised to call with any questions or concerns. Follow-up with me in 1 week. This note was generated with [employer] dictation software. It may contain incorrect words, spelling, and punctuation that were not noted in checking the note before signing.
--- NOTE | 2018-11-08 12:04 | PN.PCM_ITS ---
(1) Decubitus ulcer of right ischium, stage 3 Status: Chronic Current Visit: Yes Code(s): L89.313 - Pressure ulcer of right buttock, stage 3 (2) Spina bifida Status: Chronic Current Visit: Yes Qualifiers: Code(s): Q05.9 - Spina bifida, unspecified (3) Complicated UTI (urinary tract infection) Status: Acute Current Visit: Yes Code(s): N39.0 - Urinary tract infection, site not specified Type of Wound Chief Complaint: Right ischium ulcer History of Wound: Marcos is a 23-year-old with past medical history of spina bifida, paraplegia, and Stage 3 right ischial pressure ulceration. The patient has been long-term at our facility, with care provided by other providers and most recently by Alondra Menjivar NP. Transfer of care today due to insurance change. No new complaints at this time. Has had one application of epi fix so far. Progress of Wound: Improving. No new complaints at this time. - Physical Exam Vital Signs Temp Pulse Resp BP 98 F 92 18 100/66 11/08/18 09:39 11/08/18 09:39 11/08/18 09:39 11/08/18 09:39 General: Alert, Oriented x3, Cooperative, No apparent distress HEENT: Atraumatic, Normocephalic Oral: Moist Mucosa Neck: Supple Lungs: Normal air movement Cardiovascular: Regular rate, Normal S1, Normal S2 Abdomen: Non Tender Extremities: No cyanosis Skin: Ulcer/ Wound Wound Measurements and Assessment WC - Nurse 1 - General Ulcer Measurement Start: 10/25/18 18:54 Freq: Status: Active Protocol: Activity Type Activity Date Activity User E-Sign Co-Sign Detail Recorded Client Recorded Date Recorded By Document 11/08/18 09:39 DL [id number] 11/08/18 09:52 DL 11/08/18 09:39 Wound Center Nurse 1 [Ulcer Assessment] #6 RIGHT ISCHIUM -Current Size (cm) - Length 3.2 -Current Size (cm) - Width 5.8 -Current Size (cm) - Depth 0.9 -Total Square Cm 18.56 -Photo Taken No -Exudate Amt Medium -Exudate Type Serosanguineous -Wound Margin Thickened & Rolled Under -Granulation Amt Large (67-100%) -Granulation Quality Red -Necrosis Amt Small (1-33%) -Necrotic Tissue Type Adherent Slough -Structure Exposed N/A -Texture (Ida-wound Skin Appearance) Scarring -Moisture (Ida-wound Skin Appearance Maceration ) -Color (Ida-wound Skin Appearance) Rubor -Temperature (Ida-wound Skin No Abnormality Appearance) (Pt Warm) -Tenderness on Palpation (Ida-wound No Skin Appearance) -Ulcer Cleansing Wound Cleanser -Foul Odor after Cleansing No -Anesthetic Used 4% Lidocaine Solution - Nurse 2 - General Ulcer CM Notes Start: 10/25/18 18:54 Freq: Status: Active Protocol: Activity Type Activity Date Activity User E-Sign Co-Sign Detail Recorded Client Recorded Date Recorded By Document 11/08/18 10:01 MW [id number] 11/08/18 10:12 MW 11/08/18 10:01 Wound Center Nurse 2 [Procedure/Treatment] -Time 10:01 -Correct Patient Yes -Correct Side, Site, Position Yes -Correct Procedure Yes -Procedure Performed Yes -Type of Procedure Debridement -Clinical Debridement Subcutaneous -Post Debridement Size (cm) - Length 3.0 -Post Debridement Size (cm) - Width 6.0 -Post Debridement Size (cm) - Depth 1.0 -Total Square Cm 18.00 -Wound/Ulcer Outcome Not Healed -Ulcer Cleansing Rinsed/ Irrigated with Saline -Foul Odor after Cleansing No -Type of bioengineered Tissue EPIFIX -Expiration Date 05/23/23 -Product Lot Number [id number] -Percent Used 100 -Bleeding Controlled with Pressure -Other SALINE LOT # [id number] -Offloading No -Treatment Response Procedure Tolerated Well [See Physician Procedure note for Specifics] Pain Scale: 0-10 Numeric [Pain] -Is Patient Pain Free? Yes Musculoskeletal: No Muscle Wasting Neurological: Cranial nerves II-XII grossly intact Psych/Mental Status: Normal Affect Debridement Note Post-Debridement Measurements/Treatment - Nurse 2 - General Ulcer CM Notes Start: 10/25/18 18:54 Freq: Status: Active Protocol: Activity Type Activity Date Activity User E-Sign Co-Sign Detail Recorded Client Recorded Date Recorded By Document 11/01/18 10:36 MW [id number] 11/01/18 10:51 MW Document 11/08/18 10:01 MW [id number] 11/08/18 10:12 MW 11/01/18 11/08/18 10:36 10:01 Wound Center Nurse 2 #6 RIGHT ISCHIUM -Time 10:40 10:01 -Correct Patient Yes Yes -Correct Side, Site, Position Yes Yes -Correct Procedure Yes Yes -Procedure Performed Yes Yes -Type of Procedure Debridement Debridement -Clinical Debridement Subcutaneous Subcutaneous -Post Debridement Size (cm) - Length 4.3 3.0 -Post Debridement Size (cm) - Width 6.0 6.0 -Post Debridement Size (cm) - Depth 0.8 1.0 -Total Square Cm 25.80 18.00 -Wound/Ulcer Outcome Not Healed Not Healed -Ulcer Cleansing Rinsed/ Rinsed/ Irrigated with Irrigated with Saline Saline -Foul Odor after Cleansing No No -Bioengineered Tissue Yes -Type of bioengineered Tissue EPIFIX EPIFIX -Expiration Date 05/23/23 05/23/23 -Product Lot Number [id number] -Percent Used 100 100 -Bleeding Controlled with Pressure Pressure -Other SALINE LOT# SALINE LOT # [id number] -Offloading No No -Treatment Response Procedure Procedure Tolerated Well Tolerated Well Pain Scale: 0-10 Numeric Is Patient Pain Free? Yes Yes Wound debrided: Right buttock Wound Grade/Stage: stage IV Type of Debridement: Excisional debridement Anesthesia Used: 4% Lidocaine Solution Depth: Down to and including healthy tissue, in the subcutaneous layer Percentage of wound debrided: 100 - , Denies Instrument Used: 5mm curette Tissue Removed: Slough and devitalized tissue Severity: Fat Layer Exposed Amount of bleeding with debridement: Mild Bleeding Controlled with: Pressure Patient tolerated procedure well Assessment/Plan Active Problems Complicated UTI (urinary tract infection) (Acute) Decubitus ulcer of right ischium, stage 3 (Chronic) Spina bifida (Chronic) Assessment: Decubitus ulcer stage III right ischium. Spina bifida. Paraplegia. History of osteomyelitis. Plan: Wound continues to show good improvement with Epifix and wound Vac. No significant concerns at this time. Debridement done as doumented above, procedure was well-tolerated. 7th application of epi-fix done today using 100% of product. Wound veil overtop, moistened with saline. Black foam and wound VAC over top. Leave in place for a week. He will definitely Continue to require more applications of epifix and continued wound Vac use. Still a significant size and he did poorly with other products in the past. Continue offloading. Increased protein intake recommended. Advised to call with any questions or concerns. Follow-up with me in 1 week. This note was generated with [employer] dictation software. It may contain incorrect words, spelling, and punctuation that were not noted in checking the note before signing.
[2018-11-15 09:46] VITALS: BP 124/84; PULSE 111; RESP 16; TEMP 37.2
--- NOTE | 2018-11-15 10:47 | PCM.WC.PN ---
(1) Decubitus ulcer of right ischium, stage 3 Status: Chronic Current Visit: Yes Code(s): L89.313 - Pressure ulcer of right buttock, stage 3 (2) Spina bifida Status: Chronic Current Visit: Yes Qualifiers: Code(s): Q05.9 - Spina bifida, unspecified (3) Complicated UTI (urinary tract infection) Status: Acute Current Visit: Yes Code(s): N39.0 - Urinary tract infection, site not specified Type of Wound Chief Complaint: Right ischium ulcer History of Wound: Marcos is a 23-year-old with past medical history of spina bifida, paraplegia, and Stage 3 right ischial pressure ulceration. The patient has been long-term at our facility, with care provided by other providers and most recently by Alondra Menjivar NP. Transfer of care today due to insurance change. No new complaints at this time. Has had one application of epi fix so far. Progress of Wound: Stable. Had some concerns with his wound Vac over the past week. - Physical Exam Vital Signs Temp Pulse Resp BP 98.9 F 111 H 16 124/84 H 11/15/18 09:46 11/15/18 09:46 11/15/18 09:46 11/15/18 09:46 General: Alert, Oriented x3, No apparent distress HEENT: Atraumatic, Normocephalic Oral: Moist Mucosa Neck: Supple Lungs: Normal air movement Abdomen: Non Tender Extremities: No cyanosis Skin: Ulcer/ Wound Wound Measurements and Assessment WC - Nurse 1 - General Ulcer Measurement Start: 10/25/18 18:54 Freq: Status: Active Protocol: Activity Type Activity Date Activity User E-Sign Co-Sign Detail Recorded Client Recorded Date Recorded By Document 11/15/18 09:46 [facility] [id number] 11/15/18 09:58 [facility] 11/15/18 09:46 Wound Center Nurse 1 [Ulcer Assessment] #6 RIGHT ISCHIUM -Combined with other wound No -Current Size (cm) - Length 5.6 -Current Size (cm) - Width 5.3 -Current Size (cm) - Depth 1.3 -Total Square Cm 29.68 -Date of Last Picture (Recall this 11/15/18 field) -Photo Taken Yes -Epithelialization Small 1-33% -Tunneling No -Undermining/Tunneling Yes -Undermining/Tunneling Starts (O' 11 clock) -Undermining/Tunneling Ends (O'clock) 2 -Maximum Distance (cm) 0.6 -Circular Undermining No -Exudate Amt Small -Exudate Type Serosanguineous -Wound Margin Flat & Intact -Granulation Amt Small (1-33%) -Granulation Quality [place] -Slough/Fibrin Yes -Necrosis Amt Large (67-100%) -Necrotic Tissue Type Adherent Slough -Texture (Ida-wound Skin Appearance) Assessed Scarring -Moisture (Ida-wound Skin Appearance Assessed ) Maceration -Color (Ida-wound Skin Appearance) Assessed Erythema Palor -Temperature (Ida-wound Skin No Abnormality Appearance) (Pt Warm) -Tenderness on Palpation (Ida-wound No Skin Appearance) -Ulcer Cleansing Wound Cleanser -Foul Odor after Cleansing No -Anesthetic Used 4% Lidocaine Solution WC - Nurse 2 - General Ulcer CM Notes Start: 10/25/18 18:54 Freq: Status: Active Protocol: Activity Type Activity Date Activity User E-Sign Co-Sign Detail Recorded Client Recorded Date Recorded By Document 11/15/18 10:11 MW [id number] 11/15/18 10:20 MW 11/15/18 10:11 Wound Center Nurse 2 [Procedure/Treatment] -Time 10:11 -Correct Patient Yes -Correct Side, Site, Position Yes -Correct Procedure Yes -Procedure Performed Yes -Type of Procedure Debridement -Clinical Debridement Subcutaneous -Post Debridement Size (cm) - Length 4.5 -Post Debridement Size (cm) - Width 5.5 -Post Debridement Size (cm) - Depth 1.0 -Total Square Cm 24.75 -Wound/Ulcer Outcome Not Healed -Ulcer Cleansing Rinsed/ Irrigated with Saline -Foul Odor after Cleansing No -Bioengineered Tissue Yes -Type of bioengineered Tissue EPIFIX -Expiration Date 04/22/23 -Product Lot Number [id number] -Percent Used 100 -Bleeding Controlled with Pressure -Other SALINE LOT # [id number] -Offloading No -Treatment Response Procedure Tolerated Well [See Physician Procedure note for Specifics] Pain Scale: 0-10 Numeric [Pain] -Is Patient Pain Free? Yes Musculoskeletal: No Muscle Wasting Neurological: Cranial nerves II-XII grossly intact Psych/Mental Status: Normal Affect Debridement Note Post-Debridement Measurements/Treatment WC - Nurse 2 - General Ulcer CM Notes Start: 10/25/18 18:54 Freq: Status: Active Protocol: Activity Type Activity Date Activity User E-Sign Co-Sign Detail Recorded Client Recorded Date Recorded By Document 11/01/18 10:36 MW [id number] 11/01/18 10:51 MW Document 11/08/18 10:01 MW [id number] 11/08/18 10:12 MW Document 11/15/18 10:11 MW [id number] 11/15/18 10:20 MW 11/01/18 11/08/18 11/15/18 10:36 10:01 10:11 Wound Center Nurse 2 #6 RIGHT ISCHIUM -Time 10:40 10:01 10:11 -Correct Patient Yes Yes Yes -Correct Side, Site, Position Yes Yes Yes -Correct Procedure Yes Yes Yes -Procedure Performed Yes Yes Yes -Type of Procedure Debridement Debridement Debridement -Clinical Debridement Subcutaneous Subcutaneous Subcutaneous -Post Debridement Size (cm) - Length 4.3 3.0 4.5 -Post Debridement Size (cm) - Width 6.0 6.0 5.5 -Post Debridement Size (cm) - Depth 0.8 1.0 1.0 -Total Square Cm 25.80 18.00 24.75 -Wound/Ulcer Outcome Not Healed Not Healed Not Healed -Ulcer Cleansing Rinsed/ Rinsed/ Rinsed/ Irrigated with Irrigated with Irrigated with Saline Saline Saline -Foul Odor after Cleansing No No No -Bioengineered Tissue Yes Yes -Type of bioengineered Tissue EPIFIX EPIFIX EPIFIX -Expiration Date 05/23/23 05/23/23 04/22/23 -Product Lot Number [id number] -Percent Used 100 100 100 -Bleeding Controlled with Pressure Pressure Pressure -Other SALINE LOT# SALINE LOT # SALINE LOT # [id number] -Offloading No No No -Treatment Response Procedure Procedure Procedure Tolerated Well Tolerated Well Tolerated Well Pain Scale: 0-10 Numeric Is Patient Pain Free? Yes Yes Yes Wound debrided: Right Buttock Wound Grade/Stage: Stage III Type of Debridement: Excisional debridement Anesthesia Used: 4% Lidocaine Solution Depth: Down to and including healthy tissue, in the subcutaneous layer Percentage of wound debrided: 100 Instrument Used: 5mm curette Tissue Removed: Slough and devitalized tissue. Amount of bleeding with debridement: Mild Bleeding Controlled with: Pressure Patient tolerated procedure well Assessment/Plan Active Problems Complicated UTI (urinary tract infection) (Acute) Decubitus ulcer of right ischium, stage 3 (Chronic) Spina bifida (Chronic) Assessment: Decubitus ulcer stage III right ischium. Spina bifida. Paraplegia. History of osteomyelitis. Plan: Some worsening noted. Had problems with his Vac over the last week. Debridement done as doumented above, procedure was well-tolerated. 8th application of epi-fix done today using 100% of product. Wound veil overtop, moistened with saline. Black foam and wound VAC over top. Leave in place for a week. He will definitely Continue to require more applications of epifix and continued wound Vac use. Still a significant size and he did poorly with other products in the past. Continue offloading. Increased protein intake recommended. Advised to call with any questions or concerns. Follow-up with me in 1 week. This note was generated with [employer] dictation software. It may contain incorrect words, spelling, and punctuation that were not noted in checking the note before signing.
--- NOTE | 2018-11-15 10:51 | PN.PCM_ITS ---
(1) Decubitus ulcer of right ischium, stage 3 Status: Chronic Current Visit: Yes Code(s): L89.313 - Pressure ulcer of right buttock, stage 3 (2) Spina bifida Status: Chronic Current Visit: Yes Qualifiers: Code(s): Q05.9 - Spina bifida, unspecified (3) Complicated UTI (urinary tract infection) Status: Acute Current Visit: Yes Code(s): N39.0 - Urinary tract infection, site not specified Type of Wound Chief Complaint: Right ischium ulcer History of Wound: Marcos is a 23-year-old with past medical history of spina bifida, paraplegia, and Stage 3 right ischial pressure ulceration. The patient has been long-term at our facility, with care provided by other providers and most recently by Alondra Menjivar NP. Transfer of care today due to insurance change. No new complaints at this time. Has had one application of epi fix so far. Progress of Wound: Stable. Had some concerns with his wound Vac over the past week. - Physical Exam Vital Signs Temp Pulse Resp BP 98.9 F 111 H 16 124/84 H 11/15/18 09:46 11/15/18 09:46 11/15/18 09:46 11/15/18 09:46 General: Alert, Oriented x3, No apparent distress HEENT: Atraumatic, Normocephalic Oral: Moist Mucosa Neck: Supple Lungs: Normal air movement Abdomen: Non Tender Extremities: No cyanosis Skin: Ulcer/ Wound Wound Measurements and Assessment WC - Nurse 1 - General Ulcer Measurement Start: 10/25/18 18:54 Freq: Status: Active Protocol: Activity Type Activity Date Activity User E-Sign Co-Sign Detail Recorded Client Recorded Date Recorded By Document 11/15/18 09:46 [facility] [id number] 11/15/18 09:58 [facility] 11/15/18 09:46 Wound Center Nurse 1 [Ulcer Assessment] #6 RIGHT ISCHIUM -Combined with other wound No -Current Size (cm) - Length 5.6 -Current Size (cm) - Width 5.3 -Current Size (cm) - Depth 1.3 -Total Square Cm 29.68 -Date of Last Picture (Recall this 11/15/18 field) -Photo Taken Yes -Epithelialization Small 1-33% -Tunneling No -Undermining/Tunneling Yes -Undermining/Tunneling Starts (O' 11 clock) -Undermining/Tunneling Ends (O'clock) 2 -Maximum Distance (cm) 0.6 -Circular Undermining No -Exudate Amt Small -Exudate Type Serosanguineous -Wound Margin Flat & Intact -Granulation Amt Small (1-33%) -Granulation Quality [place] -Slough/Fibrin Yes -Necrosis Amt Large (67-100%) -Necrotic Tissue Type Adherent Slough -Texture (Ida-wound Skin Appearance) Assessed Scarring -Moisture (Ida-wound Skin Appearance Assessed ) Maceration -Color (Ida-wound Skin Appearance) Assessed Erythema [place] -Temperature (Ida-wound Skin No Abnormality Appearance) (Pt Warm) -Tenderness on Palpation (Ida-wound No Skin Appearance) -Ulcer Cleansing Wound Cleanser -Foul Odor after Cleansing No -Anesthetic Used 4% Lidocaine Solution WC - Nurse 2 - General Ulcer CM Notes Start: 10/25/18 18:54 Freq: Status: Active Protocol: Activity Type Activity Date Activity User E-Sign Co-Sign Detail Recorded Client Recorded Date Recorded By Document 11/15/18 10:11 MW [id number] 11/15/18 10:20 MW 11/15/18 10:11 Wound Center Nurse 2 [Procedure/Treatment] -Time 10:11 -Correct Patient Yes -Correct Side, Site, Position Yes -Correct Procedure Yes -Procedure Performed Yes -Type of Procedure Debridement -Clinical Debridement Subcutaneous -Post Debridement Size (cm) - Length 4.5 -Post Debridement Size (cm) - Width 5.5 -Post Debridement Size (cm) - Depth 1.0 -Total Square Cm 24.75 -Wound/Ulcer Outcome Not Healed -Ulcer Cleansing Rinsed/ Irrigated with Saline -Foul Odor after Cleansing No -Bioengineered Tissue Yes -Type of bioengineered Tissue EPIFIX -Expiration Date 04/22/23 -Product Lot Number [id number] -Percent Used 100 -Bleeding Controlled with Pressure -Other SALINE LOT # [id number] -Offloading No -Treatment Response Procedure Tolerated Well [See Physician Procedure note for Specifics] Pain Scale: 0-10 Numeric [Pain] -Is Patient Pain Free? Yes Musculoskeletal: No Muscle Wasting Neurological: Cranial nerves II-XII grossly intact Psych/Mental Status: Normal Affect Debridement Note Post-Debridement Measurements/Treatment WC - Nurse 2 - General Ulcer CM Notes Start: 10/25/18 18:54 Freq: Status: Active Protocol: Activity Type Activity Date Activity User E-Sign Co-Sign Detail Recorded Client Recorded Date Recorded By Document 11/01/18 10:36 MW [id number] 11/01/18 10:51 MW Document 11/08/18 10:01 MW [id number] 11/08/18 10:12 MW Document 11/15/18 10:11 MW [id number] 11/15/18 10:20 MW 11/01/18 11/08/18 11/15/18 10:36 10:01 10:11 Wound Center Nurse 2 #6 RIGHT ISCHIUM -Time 10:40 10:01 10:11 -Correct Patient Yes Yes Yes -Correct Side, Site, Position Yes Yes Yes -Correct Procedure Yes Yes Yes -Procedure Performed Yes Yes Yes -Type of Procedure Debridement Debridement Debridement -Clinical Debridement Subcutaneous Subcutaneous Subcutaneous -Post Debridement Size (cm) - Length 4.3 3.0 4.5 -Post Debridement Size (cm) - Width 6.0 6.0 5.5 -Post Debridement Size (cm) - Depth 0.8 1.0 1.0 -Total Square Cm 25.80 18.00 24.75 -Wound/Ulcer Outcome Not Healed Not Healed Not Healed -Ulcer Cleansing Rinsed/ Rinsed/ Rinsed/ Irrigated with Irrigated with Irrigated with Saline Saline Saline -Foul Odor after Cleansing No No No -Bioengineered Tissue Yes Yes -Type of bioengineered Tissue EPIFIX EPIFIX EPIFIX -Expiration Date 05/23/23 05/23/23 04/22/23 -Product Lot Number [id number] -Percent Used 100 100 100 -Bleeding Controlled with Pressure Pressure Pressure -Other SALINE LOT# SALINE LOT # SALINE LOT # [id number] -Offloading No No No -Treatment Response Procedure Procedure Procedure Tolerated Well Tolerated Well Tolerated Well Pain Scale: 0-10 Numeric Is Patient Pain Free? Yes Yes Yes Wound debrided: Right Buttock Wound Grade/Stage: Stage III Type of Debridement: Excisional debridement Anesthesia Used: 4% Lidocaine Solution Depth: Down to and including healthy tissue, in the subcutaneous layer Percentage of wound debrided: 100 Instrument Used: 5mm curette Tissue Removed: Slough and devitalized tissue. Amount of bleeding with debridement: Mild Bleeding Controlled with: Pressure Patient tolerated procedure well Assessment/Plan Active Problems Complicated UTI (urinary tract infection) (Acute) Decubitus ulcer of right ischium, stage 3 (Chronic) Spina bifida (Chronic) Assessment: Decubitus ulcer stage III right ischium. Spina bifida. Paraplegia. History of osteomyelitis. Plan: Some worsening noted. Had problems with his Vac over the last week. Debridement done as doumented above, procedure was well-tolerated. 8th application of epi-fix done today using 100% of product. Wound veil overtop, moistened with saline. Black foam and wound VAC over top. Leave in place for a week. He will definitely Continue to require more applications of epifix and continued wound Vac use. Still a significant size and he did poorly with other products in the past. Continue offloading. Increased protein intake recommended. Advised to call with any questions or concerns. Follow-up with me in 1 week. This note was generated with Sgnam dictation software. It may contain incorrect words, spelling, and punctuation that were not noted in checking the note before signing.
[2018-11-22 09:31] VITALS: BP 102/51; PULSE 88; RESP 18; TEMP 36.9
--- NOTE | 2018-11-22 10:51 | PCM.WC.PN ---
(1) Decubitus ulcer of right ischium, stage 3 Status: Chronic Current Visit: Yes Code(s): L89.313 - Pressure ulcer of right buttock, stage 3 (2) Spina bifida Status: Chronic Current Visit: Yes Qualifiers: Code(s): Q05.9 - Spina bifida, unspecified (3) Complicated UTI (urinary tract infection) Status: Acute Current Visit: Yes Code(s): N39.0 - Urinary tract infection, site not specified Type of Wound Chief Complaint: Right ischium ulcer History of Wound: Marcos is a 23-year-old with past medical history of spina bifida, paraplegia, and Stage 3 right ischial pressure ulceration. The patient has been long-term at our facility, with care provided by other providers and most recently by Alondra Menjivar NP. Transfer of care today due to insurance change. No new complaints at this time. Has had one application of epi fix so far. Progress of Wound: Wound is stable. They deny any new concerns over the last week. However, colored drainage noted at the 7 o'clock position and a new tunnel with a depth of about 3.5 cm was found. - Physical Exam Vital Signs Temp Pulse Resp BP 98.4 F 88 18 102/51 L 11/22/18 09:31 11/22/18 09:31 11/22/18 09:31 11/22/18 09:31 General: Alert, Oriented x3, Cooperative, No apparent distress HEENT: Atraumatic, Normocephalic Oral: Moist Mucosa Neck: Supple Lungs: Normal air movement Abdomen: Non Tender Extremities: No cyanosis Wound Measurements and Assessment WC - Nurse 1 - General Ulcer Measurement Start: 10/25/18 18:54 Freq: Status: Active Protocol: Activity Type Activity Date Activity User E-Sign Co-Sign Detail Recorded Client Recorded Date Recorded By Document 11/22/18 09:31 RB [id number] 11/22/18 09:41 RB 11/22/18 09:31 Wound Center Nurse 1 [Ulcer Assessment] #6 RIGHT ISCHIUM -Combined with other wound No -Current Size (cm) - Length 5.2 -Current Size (cm) - Width 6 -Current Size (cm) - Depth 1 -Total Square Cm 31.2 -Photo Taken No -Tunneling No -Undermining/Tunneling No -Exudate Amt Medium -Exudate Type Serosanguineous -Wound Margin Thickened & Rolled Under -Granulation Amt Large (67-100%) -Granulation Quality [place] -Slough/Fibrin Yes -Necrosis Amt Small (1-33%) -Necrotic Tissue Type Adherent Slough -Structure Exposed N/A -Texture (Ida-wound Skin Appearance) Assessed -Moisture (Ida-wound Skin Appearance Maceration ) -Color (Ida-wound Skin Appearance) Assessed -Temperature (Ida-wound Skin No Abnormality Appearance) (Pt Warm) -Tenderness on Palpation (Ida-wound No Skin Appearance) -Ulcer Cleansing Wound Cleanser -Foul Odor after Cleansing No -Anesthetic Used 4% Lidocaine Solution [Edema Assessment] -Lower Limb Edema Present NA WC - Nurse 2 - General Ulcer CM Notes Start: 10/25/18 18:54 Freq: Status: Active Protocol: Activity Type Activity Date Activity User E-Sign Co-Sign Detail Recorded Client Recorded Date Recorded By Document 11/22/18 09:58 MW [id number] 11/22/18 10:05 MW 11/22/18 09:58 Wound Center Nurse 2 [Procedure/Treatment] #6 RIGHT ISCHIUM -Time 09:58 -Correct Patient Yes -Correct Side, Site, Position Yes -Correct Procedure Yes -Procedure Performed Yes -Type of Procedure Debridement -Clinical Debridement Subcutaneous -Post Debridement Size (cm) - Length 5.7 -Post Debridement Size (cm) - Width 4.0 -Post Debridement Size (cm) - Depth 1.0 -Total Square Cm 22.80 -Wound/Ulcer Outcome Not Healed -Ulcer Cleansing Rinsed/ Irrigated with Saline -Foul Odor after Cleansing No -Bioengineered Tissue No -Bleeding Controlled with Pressure -Other TUNNEL @7 - 3. 5CM -Offloading No -Treatment Response Procedure Tolerated Well [See Physician Procedure note for Specifics] Pain Scale: 0-10 Numeric [Pain] -Is Patient Pain Free? Yes Neurological: Cranial nerves II-XII grossly intact Psych/Mental Status: Normal Affect Debridement Note Post-Debridement Measurements/Treatment - Nurse 2 - General Ulcer CM Notes Start: 10/25/18 18:54 Freq: Status: Active Protocol: Activity Type Activity Date Activity User E-Sign Co-Sign Detail Recorded Client Recorded Date Recorded By Document 11/01/18 10:36 MW [id number] 11/01/18 10:51 MW Document 11/08/18 10:01 MW [id number] 11/08/18 10:12 MW Document 11/15/18 10:11 MW [id number] 11/15/18 10:20 MW Document 11/22/18 09:58 MW [id number] 11/22/18 10:05 MW 11/01/18 11/08/18 11/15/18 10:36 10:01 10:11 Wound Center Nurse 2 #6 RIGHT ISCHIUM -Time 10:40 10:01 10:11 -Correct Patient Yes Yes Yes -Correct Side, Site, Position Yes Yes Yes -Correct Procedure Yes Yes Yes -Procedure Performed Yes Yes Yes -Type of Procedure Debridement Debridement Debridement -Clinical Debridement Subcutaneous Subcutaneous Subcutaneous -Post Debridement Size (cm) - Length 4.3 3.0 4.5 -Post Debridement Size (cm) - Width 6.0 6.0 5.5 -Post Debridement Size (cm) - Depth 0.8 1.0 1.0 -Total Square Cm 25.80 18.00 24.75 -Wound/Ulcer Outcome Not Healed Not Healed Not Healed -Ulcer Cleansing Rinsed/ Rinsed/ Rinsed/ Irrigated with Irrigated with Irrigated with Saline Saline Saline -Foul Odor after Cleansing No No No -Bioengineered Tissue Yes Yes -Type of bioengineered Tissue EPIFIX EPIFIX EPIFIX -Expiration Date 05/23/23 05/23/23 04/22/23 -Product Lot Number [id number] -Percent Used 100 100 100 -Bleeding Controlled with Pressure Pressure Pressure -Other SALINE LOT# SALINE LOT # SALINE LOT # [id number] -Offloading No No No -Treatment Response Procedure Procedure Procedure Tolerated Well Tolerated Well Tolerated Well Pain Scale: 0-10 Numeric Is Patient Pain Free? Yes Yes Yes 11/22/18 09:58 Wound Center Nurse 2 #6 RIGHT ISCHIUM -Time 09:58 -Correct Patient Yes -Correct Side, Site, Position Yes -Correct Procedure Yes -Procedure Performed Yes -Type of Procedure Debridement -Clinical Debridement Subcutaneous -Post Debridement Size (cm) - Length 5.7 -Post Debridement Size (cm) - Width 4.0 -Post Debridement Size (cm) - Depth 1.0 -Total Square Cm 22.80 -Wound/Ulcer Outcome Not Healed -Ulcer Cleansing Rinsed/ Irrigated with Saline -Foul Odor after Cleansing No -Bioengineered Tissue No -Type of bioengineered Tissue -Expiration Date -Product Lot Number -Percent Used -Bleeding Controlled with Pressure -Other TUNNEL @7 - 3. 5CM -Offloading No -Treatment Response Procedure Tolerated Well Pain Scale: 0-10 Numeric Is Patient Pain Free? Yes Wound debrided: Right buttock Wound Grade/Stage: Stage III Type of Debridement: Excisional debridement Anesthesia Used: 4% Lidocaine Solution Depth: Down to and including healthy tissue, in the subcutaneous layer Percentage of wound debrided: 100 Instrument Used: 5mm curette Tissue Removed: Slough and devitalized tissue Severity: Fat Layer Exposed Amount of bleeding with debridement: Mild Bleeding Controlled with: Pressure Patient tolerated procedure well Assessment/Plan Active Problems Complicated UTI (urinary tract infection) (Acute) Decubitus ulcer of right ischium, stage 3 (Chronic) Spina bifida (Chronic) Assessment: Decubitus ulcer stage III right ischium. Spina bifida. Paraplegia. History of osteomyelitis. Plan: New tunneling at the 7 o'clock position noted. Measures about 3.5 cm deep. Clear drainage appreciated. Debridement done as documented above. Procedure was well-tolerated. We will hold off epi-fix this week. White foam to the tunnel. Continue wound VAC at 150 mmHg. Change every other day. He will definitely Continue to require more applications of epifix and continued wound Vac use. Still a significant size and he did poorly with other products in the past. Continue offloading. Increased protein intake recommended. Advised to call with any questions or concerns. Follow-up with me in 1 week. This note was generated with GoYoDeoation software. It may contain incorrect words, spelling, and punctuation that were not noted in checking the note before signing.
--- NOTE | 2018-11-22 10:56 | PN.PCM_ITS ---
(1) Decubitus ulcer of right ischium, stage 3 Status: Chronic Current Visit: Yes Code(s): L89.313 - Pressure ulcer of right buttock, stage 3 (2) Spina bifida Status: Chronic Current Visit: Yes Qualifiers: Code(s): Q05.9 - Spina bifida, unspecified (3) Complicated UTI (urinary tract infection) Status: Acute Current Visit: Yes Code(s): N39.0 - Urinary tract infection, site not specified Type of Wound Chief Complaint: Right ischium ulcer History of Wound: Marcos is a 23-year-old with past medical history of spina bifida, paraplegia, and Stage 3 right ischial pressure ulceration. The patient has been long-term at our facility, with care provided by other providers and most recently by Alondra Menjivar NP. Transfer of care today due to insurance change. No new complaints at this time. Has had one application of epi fix so far. Progress of Wound: Wound is stable. They deny any new concerns over the last week. However, colored drainage noted at the 7 o'clock position and a new tunnel with a depth of about 3.5 cm was found. - Physical Exam Vital Signs Temp Pulse Resp BP 98.4 F 88 18 102/51 L 11/22/18 09:31 11/22/18 09:31 11/22/18 09:31 11/22/18 09:31 General: Alert, Oriented x3, Cooperative, No apparent distress HEENT: Atraumatic, Normocephalic Oral: Moist Mucosa Neck: Supple Lungs: Normal air movement Abdomen: Non Tender Extremities: No cyanosis Wound Measurements and Assessment WC - Nurse 1 - General Ulcer Measurement Start: 10/25/18 18:54 Freq: Status: Active Protocol: Activity Type Activity Date Activity User E-Sign Co-Sign Detail Recorded Client Recorded Date Recorded By Document 11/22/18 09:31 RB [id number] 11/22/18 09:41 RB 11/22/18 09:31 Wound Center Nurse 1 [Ulcer Assessment] #6 RIGHT ISCHIUM -Combined with other wound No -Current Size (cm) - Length 5.2 -Current Size (cm) - Width 6 -Current Size (cm) - Depth 1 -Total Square Cm 31.2 -Photo Taken No -Tunneling No -Undermining/Tunneling No -Exudate Amt Medium -Exudate Type Serosanguineous -Wound Margin Thickened & Rolled Under -Granulation Amt Large (67-100%) -Granulation Quality [place] -Slough/Fibrin Yes -Necrosis Amt Small (1-33%) -Necrotic Tissue Type Adherent Slough -Structure Exposed N/A -Texture (Ida-wound Skin Appearance) Assessed -Moisture (Ida-wound Skin Appearance Maceration ) -Color (Ida-wound Skin Appearance) Assessed -Temperature (Ida-wound Skin No Abnormality Appearance) (Pt Warm) -Tenderness on Palpation (Ida-wound No Skin Appearance) -Ulcer Cleansing Wound Cleanser -Foul Odor after Cleansing No -Anesthetic Used 4% Lidocaine Solution [Edema Assessment] -Lower Limb Edema Present NA WC - Nurse 2 - General Ulcer CM Notes Start: 10/25/18 18:54 Freq: Status: Active Protocol: Activity Type Activity Date Activity User E-Sign Co-Sign Detail Recorded Client Recorded Date Recorded By Document 11/22/18 09:58 MW [id number] 11/22/18 10:05 MW 11/22/18 09:58 Wound Center Nurse 2 [Procedure/Treatment] #6 RIGHT ISCHIUM -Time 09:58 -Correct Patient Yes -Correct Side, Site, Position Yes -Correct Procedure Yes -Procedure Performed Yes -Type of Procedure Debridement -Clinical Debridement Subcutaneous -Post Debridement Size (cm) - Length 5.7 -Post Debridement Size (cm) - Width 4.0 -Post Debridement Size (cm) - Depth 1.0 -Total Square Cm 22.80 -Wound/Ulcer Outcome Not Healed -Ulcer Cleansing Rinsed/ Irrigated with Saline -Foul Odor after Cleansing No -Bioengineered Tissue No -Bleeding Controlled with Pressure -Other TUNNEL @7 - 3. 5CM -Offloading No -Treatment Response Procedure Tolerated Well [See Physician Procedure note for Specifics] Pain Scale: 0-10 Numeric [Pain] -Is Patient Pain Free? Yes Neurological: Cranial nerves II-XII grossly intact Psych/Mental Status: Normal Affect Debridement Note Post-Debridement Measurements/Treatment - Nurse 2 - General Ulcer CM Notes Start: 10/25/18 18:54 Freq: Status: Active Protocol: Activity Type Activity Date Activity User E-Sign Co-Sign Detail Recorded Client Recorded Date Recorded By Document 11/01/18 10:36 MW [id number] 11/01/18 10:51 MW Document 11/08/18 10:01 MW [id number] 11/08/18 10:12 MW Document 11/15/18 10:11 MW [id number] 11/15/18 10:20 MW Document 11/22/18 09:58 MW [id number] 11/22/18 10:05 MW 11/01/18 11/08/18 11/15/18 10:36 10:01 10:11 Wound Center Nurse 2 #6 RIGHT ISCHIUM -Time 10:40 10:01 10:11 -Correct Patient Yes Yes Yes -Correct Side, Site, Position Yes Yes Yes -Correct Procedure Yes Yes Yes -Procedure Performed Yes Yes Yes -Type of Procedure Debridement Debridement Debridement -Clinical Debridement Subcutaneous Subcutaneous Subcutaneous -Post Debridement Size (cm) - Length 4.3 3.0 4.5 -Post Debridement Size (cm) - Width 6.0 6.0 5.5 -Post Debridement Size (cm) - Depth 0.8 1.0 1.0 -Total Square Cm 25.80 18.00 24.75 -Wound/Ulcer Outcome Not Healed Not Healed Not Healed -Ulcer Cleansing Rinsed/ Rinsed/ Rinsed/ Irrigated with Irrigated with Irrigated with Saline Saline Saline -Foul Odor after Cleansing No No No -Bioengineered Tissue Yes Yes -Type of bioengineered Tissue EPIFIX EPIFIX EPIFIX -Expiration Date 05/23/23 05/23/23 04/22/23 -Product Lot Number [id number] -Percent Used 100 100 100 -Bleeding Controlled with Pressure Pressure Pressure -Other SALINE LOT# SALINE LOT # SALINE LOT # [id number] -Offloading No No No -Treatment Response Procedure Procedure Procedure Tolerated Well Tolerated Well Tolerated Well Pain Scale: 0-10 Numeric Is Patient Pain Free? Yes Yes Yes 11/22/18 09:58 Wound Center Nurse 2 #6 RIGHT ISCHIUM -Time 09:58 -Correct Patient Yes -Correct Side, Site, Position Yes -Correct Procedure Yes -Procedure Performed Yes -Type of Procedure Debridement -Clinical Debridement Subcutaneous -Post Debridement Size (cm) - Length 5.7 -Post Debridement Size (cm) - Width 4.0 -Post Debridement Size (cm) - Depth 1.0 -Total Square Cm 22.80 -Wound/Ulcer Outcome Not Healed -Ulcer Cleansing Rinsed/ Irrigated with Saline -Foul Odor after Cleansing No -Bioengineered Tissue No -Type of bioengineered Tissue -Expiration Date -Product Lot Number -Percent Used -Bleeding Controlled with Pressure -Other TUNNEL @7 - 3. 5CM -Offloading No -Treatment Response Procedure Tolerated Well Pain Scale: 0-10 Numeric Is Patient Pain Free? Yes Wound debrided: Right buttock Wound Grade/Stage: Stage III Type of Debridement: Excisional debridement Anesthesia Used: 4% Lidocaine Solution Depth: Down to and including healthy tissue, in the subcutaneous layer Percentage of wound debrided: 100 Instrument Used: 5mm curette Tissue Removed: Slough and devitalized tissue Severity: Fat Layer Exposed Amount of bleeding with debridement: Mild Bleeding Controlled with: Pressure Patient tolerated procedure well Assessment/Plan Active Problems Complicated UTI (urinary tract infection) (Acute) Decubitus ulcer of right ischium, stage 3 (Chronic) Spina bifida (Chronic) Assessment: Decubitus ulcer stage III right ischium. Spina bifida. Paraplegia. History of osteomyelitis. Plan: New tunneling at the 7 o'clock position noted. Measures about 3.5 cm deep. Clear drainage appreciated. Debridement done as documented above. Procedure was well-tolerated. We will hold off epi-fix this week. White foam to the tunnel. Continue wound VAC at 150 mmHg. Change every other day. He will definitely Continue to require more applications of epifix and continued wound Vac use. Still a significant size and he did poorly with other products in the past. Continue offloading. Increased protein intake recommended. Advised to call with any questions or concerns. Follow-up with me in 1 week. This note was generated with Match[employer] software. It may contain incorrect words, spelling, and punctuation that were not noted in checking the note before signing.
== END 2018-11-22 23:59 | disposition home or self-care (01) ==
LOC: WC 09:30
PROVIDERS: Family Provider Family Medicine; PCP Family Medicine; Visit Provider Internal Medicine
DX: L89.213 Pressure ulcer of right hip, stage 3 (principal); Q05.9 Spina bifida, unspecified; G82.20 Paraplegia, unspecified; N39.0 Urinary tract infection, site not specified; L89.214 Pressure ulcer of right hip, stage 4
CPT/HCPCS: 11042; 15271; 97605; Q4186

== ENCOUNTER 2018-12-10 10:15 | Outpatient (RCR) | payer OTHER, MEDICAID, SELFPAY ==
[2018-11-23 01:06] VITALS: BP 102/51; PULSE 88; RESP 18; TEMP 36.9
[2018-11-28 09:33] VITALS: BP 117/66; PULSE 92; RESP 18; TEMP 37.1; BMI 13.4
--- NOTE | 2018-11-28 10:54 | PCM.WC.PN ---
(1) Stage IV decubitus ulcer Status: Chronic Current Visit: Yes Code(s): L89.94 - Pressure ulcer of unspecified site, stage 4 (2) Chronic osteomyelitis, pelvic region and thigh Status: Chronic Current Visit: No Code(s): M86.659 - Other chronic osteomyelitis, unspecified thigh Comment: right sacral area (3) Spina bifida Status: Chronic Current Visit: Yes Qualifiers: Code(s): Q05.9 - Spina bifida, unspecified Type of Wound Chief Complaint: Right ischium ulcer History of Wound: Marcos is a 23-year-old with past medical history of spina bifida, paraplegia, and Stage 3 right ischial pressure ulceration. The patient has been long-term at our facility, with care provided by other providers and most recently by Alondra Menjivar NP. Transfer of care today due to insurance change. No new complaints at this time. Has had one application of epi fix so far. Progress of Wound: Had difficulty with the wound VAC this week. Per his father, copious clear drainage noted from the tunnel and it has widened. Patient feels well otherwise. - Physical Exam Vital Signs Temp Pulse Resp BP 98.7 F 92 18 117/66 11/28/18 09:33 11/28/18 09:33 11/28/18 09:33 11/28/18 09:33 General: Alert, Oriented x3, Cooperative, No apparent distress HEENT: Atraumatic, Normocephalic Oral: Moist Mucosa Neck: Supple Lungs: Normal air movement Extremities: No cyanosis Skin: Ulcer/ Wound Wound Measurements and Assessment WC - Nurse 1 - General Ulcer Measurement Start: 11/28/18 09:33 Freq: Status: Active Protocol: Activity Type Activity Date Activity User E-Sign Co-Sign Detail Recorded Client Recorded Date Recorded By Document 11/28/18 09:33 AN [id number] 11/28/18 09:46 AN 11/28/18 09:33 Wound Center Nurse 1 [Ulcer Assessment] #6 RIGHT ISCHIUM -Current Size (cm) - Length 5.5 -Current Size (cm) - Width 5.2 -Current Size (cm) - Depth 0.4 -Total Square Cm 28.60 -Photo Taken No -Epithelialization None Present -Tunneling Yes -Tunneling Position (O'clock) 12 -Tunneling Distance (cm) 4.4 -Classification - Thickness Full Thickness without Exposed Support Structure -Exudate Amt Large -Exudate Type Yellow/Green -Wound Margin Distinct, Outline Attached -Granulation Amt Medium (34-66%) -Granulation Quality Red -Slough/Fibrin Yes -Necrosis Amt Medium (34-66%) -Necrotic Tissue Type Eschar -Structure Exposed Fat Layer Exposed -Texture (Ida-wound Skin Appearance) Assessed -Moisture (Ida-wound Skin Appearance Assessed ) -Color (Ida-wound Skin Appearance) Assessed -Temperature (Ida-wound Skin No Abnormality Appearance) (Pt Warm) -Tenderness on Palpation (Ida-wound No Skin Appearance) -Ulcer Cleansing Rinsed/ Irrigated with Saline -Foul Odor after Cleansing No -Anesthetic Used 4% Lidocaine Solution WC - Nurse 2 - General Ulcer CM Notes Start: 11/28/18 09:33 Freq: Status: Active Protocol: Activity Type Activity Date Activity User E-Sign Co-Sign Detail Recorded Client Recorded Date Recorded By Document 11/28/18 10:11 MW [id number] 11/28/18 10:20 MW 11/28/18 10:11 Wound Center Nurse 2 [Procedure/Treatment] -Time 10:12 -Correct Patient Yes -Correct Side, Site, Position Yes -Correct Procedure Yes -Procedure Performed Yes -Type of Procedure Debridement -Clinical Debridement Subcutaneous -Post Debridement Size (cm) - Length 5.5 -Post Debridement Size (cm) - Width 3.5 -Post Debridement Size (cm) - Depth 1.0 -Total Square Cm 19.25 -Wound/Ulcer Outcome Not Healed -Ulcer Cleansing Rinsed/ Irrigated with Saline -Foul Odor after Cleansing No -Bioengineered Tissue No -Bleeding Controlled with Pressure -Other tunnel @7 - 4. 4cm -Offloading No -Treatment Response Procedure Tolerated Well [See Physician Procedure note for Specifics] Pain Scale: 0-10 Numeric [Pain] -Is Patient Pain Free? Yes Musculoskeletal: No Muscle Wasting Neurological: Cranial nerves II-XII grossly intact Psych/Mental Status: Normal Affect Debridement Note Post-Debridement Measurements/Treatment WC - Nurse 2 - General Ulcer CM Notes Start: 11/28/18 09:33 Freq: Status: Active Protocol: Activity Type Activity Date Activity User E-Sign Co-Sign Detail Recorded Client Recorded Date Recorded By Document 11/28/18 10:11 MW [id number] 11/28/18 10:20 MW 11/28/18 10:11 Wound Center Nurse 2 #6 RIGHT ISCHIUM -Time 10:12 -Correct Patient Yes -Correct Side, Site, Position Yes -Correct Procedure Yes -Procedure Performed Yes -Type of Procedure Debridement -Clinical Debridement Subcutaneous -Post Debridement Size (cm) - Length 5.5 -Post Debridement Size (cm) - Width 3.5 -Post Debridement Size (cm) - Depth 1.0 -Total Square Cm 19.25 -Wound/Ulcer Outcome Not Healed -Ulcer Cleansing Rinsed/ Irrigated with Saline -Foul Odor after Cleansing No -Bioengineered Tissue No -Bleeding Controlled with Pressure -Other tunnel @7 - 4. 4cm -Offloading No -Treatment Response Procedure Tolerated Well Pain Scale: 0-10 Numeric Is Patient Pain Free? Yes Wound debrided: Right buttock Wound Grade/Stage: Stage IV Type of Debridement: Excisional debridement Anesthesia Used: 4% Lidocaine Solution Depth: Down to and including healthy tissue, in the subcutaneous layer Percentage of wound debrided: 100 Instrument Used: 5mm curette Tissue Removed: Slough and devitalized tissue Severity: Fat Layer Exposed Amount of bleeding with debridement: Mild Bleeding Controlled with: Pressure Patient tolerated procedure well Assessment/Plan Active Problems Stage IV decubitus ulcer (Chronic) Spina bifida (Chronic) Assessment: Decubitus ulcer stage III right ischium. Spina bifida. Paraplegia. History of osteomyelitis. Plan: Tunnel is deeper and wider. Copious clear drainage noted. Debridement done as documented above. Procedure was well-tolerated. Cultures taken. CAT scan with contrast ordered stat. Will hold off epi-fix this week. Continue wound VAC at 150 mmHg with black foam to tunnel. Change every other day. He will definitely Continue to require more applications of epifix and continued wound Vac use. Still a significant size and he did poorly with other products in the past. Will hold off epi-fix for now until significant infection is ruled out/resolved and after review of imaging. His father states that he has scheduled bowel movements and typically does not have any fecal contamination of his ulcer. ??? Wound breakdown that would require an Intra-Op debridement secondary to chronic osteomyelitis versus sinus tract versus fistula. Has had several Intra-Op surgical debridement. Will consider plastic surgery referral after review of imaging. Continue offloading. Increased protein intake recommended. Advised to call with any questions or concerns. Follow-up with me in 1 week. This note was generated with [employer] software. It may contain incorrect words, spelling, and punctuation that were not noted in checking the note before signing.
--- NOTE | 2018-11-28 11:14 | CT_ITS ---
STUDY: CT PELVIS WITH CONTRAST REASON FOR EXAM: Male, 23 years old. History of spina bifida and cerebral palsy. Suprapubic catheter. Possible fistula. RADIATION DOSAGE (If Supplied By Facility): CTDIvol = ( 23.76 ) mGy, DLP = ( 796.74 ) mGycm TECHNIQUE: Transaxial imaging of the pelvis was performed without oral contrast. 75ML ml of Isovue 300 contrast was administered intravenously. Multiplanar coronal and sagittal images were reformatted. Individualized dose optimization techniques were used for this CT. COMPARISON: Comparison is made with prior CT scan the abdomen dated October 25, 2018. FINDINGS: There is evidence of a 5.3 cm x 4.7 cm decubitus ulceration with irregular soft tissue density overlying the posterior aspect of the right hip joint. This extends into the hip joint with destruction of the greater trochanter and sclerosis of the intertrochanteric region of the right femur. Diffuse soft tissue swelling. A ventriculoperitoneal shunt tube is seen in the anterior abdomen. A peritoneal dialysis catheter is seen in the pelvis. Staghorn calculi in the right kidney. A suprapubic catheter is seen within the urinary bladder. Multiple stones are seen at the base of the bladder. There is diffuse thickening of the bladder wall. Normal visualized small intestine. Normal visualized colon. There is no pelvic fluid. There is no pelvic lymphadenopathy or mass lesion. Normal visualized pelvic arteries. Normal abdominal wall. Moderate degree of dextroscoliosis with susan fixation. CT/Pelvis WITH IV Contrast IMPRESSION: Large decubitus ulcer overlying the right hip joint with extension to the underlying femur with destruction of the greater trochanter and sclerosis of the intertrochanteric region of the right femur. Multiple other findings as described. These are unchanged. Electronically Signed: Jairo Cooley MD at 15:23 EST , Service support ,
[2018-12-06 09:25] VITALS: BP 101/65; PULSE 98; RESP 16; TEMP 37.1; BMI 13.4
--- NOTE | 2018-12-06 11:24 | PCM.HP.ID ---
Problem List 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 Status: Chronic Comment: extending from the right ischial area Reason for Consult: osteo Consulted by: Dr. Keith History of Present Illness: The patient is a 23 year old M with spina bifida, chronic R hip ulcer with osteomyelitis requiring multiple surgeries by Dr. Beaver over past few years. Admitted in Oct for PsA uti, given course of augmentin and then cipro. Has not been feeling well with some fatigue for past few weeks. Follows at wound care center. CT done 11/28. Having about 2 weeks of progressive heavy drainage, enlargement of ulcer, and deeper tunneling. Wound cx also sent last visit. No recent abx past few weeks. Full ROS Performed and neg except as noted above. Some recent wheezing and cough with URI. - Medical History Past Medical History (Chronic Problems): Chronic Problems Stage IV decubitus ulcer (Chronic) Decubitus ulcer of right ischium, stage 3 (Chronic) Stage IV pressure ulcer of right hip (Chronic) extending from the right ischial area History of osteomyelitis (Chronic) right sacral area Decubitus ulcer of right ischium, stage 2 (Chronic) Spina bifida (Chronic) Chronic osteomyelitis, pelvic region and thigh (Chronic) right sacral area Malnutrition compromising bodily function (Chronic) Allergies/Adverse Reactions: Allergies latex Allergy (Verified 10/25/18 15:25) Unknown unsure as charted levofloxacin [Levofloxacin] Allergy (Verified 10/25/18 15:25) Rash sulfamethoxazole [From Bactrim] Allergy (Verified 10/25/18 15:25) Rash trimethoprim [From Bactrim] Allergy (Verified 10/25/18 15:25) Rash Home Medications: Ambulatory Orders Medication Instructions Recorded Polyethylene Glycol 3350 [Miralax] 17 gm PO DAILY #30 05/06/14 Argin/Glut/Cahmb/Collag/Mv-Min 1 each PO BID MDD SUPPLEMENT 10/25/18 [Mark Packet] Caloric Supplement [Benecalorie] 7.5 kcal PO DAILY 10/25/18 Cyproheptadine HCl 4 mg PO DAILY 10/25/18 Lactose-Reduced Food [Ensure Plus] 237 ml PO BID 10/25/18 Vitamin E 400 units PO DAILY 10/25/18 Acetaminophen [Tylenol Tablet] 650 mg PO Q6H PRN PRN tablet 10/26/18 Amoxicillin/Potassium Clav 1 each PO BID #14 tablet 10/26/18 [Augmentin 875-125 Tablet] - Social History Tobacco Use: non-smoker Vital Signs Temp Pulse Resp BP 98.7 F 98 16 101/65 12/06/18 09:25 12/06/18 09:25 12/06/18 09:25 12/06/18 09:25 Oxygen Delivery Method Room Air Body Mass Index (BMI) 13.4 Microbiology Past 72 Hours 11/28/18 10:15 Gram Stain - Final Wound Abcess - Buttock Wound Culture - Final Pseudomonas aeroginosa Corynebacterium striatum Anaerobic Culture - Final Anaerobic cocci - Other Studies Radiology: [] reviewed Other Studies: [] Route of nutrition/ use of supplements: [] Nutritional Intake: [] IV Site: [] Wade Catheter: [] - Physical Exam General: Alert, Oriented x3, Cooperative, No apparent distress HEENT: Atraumatic, PERRLA, EOMI Neck: Supple, No Nodes Lungs: Rhonchi, Wheezes Cardiovascular: Regular rate, Regular Rhythm Abdomen: Soft, Non Tender, Non-Distended, - - catheter in place Extremities: No edema Skin: Ulcer/ Wound - R hip posterior ulcer with deep tunneling Neurological: Cranial nerves II-XII grossly intact - Assessment/Plan Antibiotics: [] Assessment/Plan: [] R hip osteo with chronic ulcer - CT shows joint involvement. Wound cx with PsA, corynebacterium, and anaerobes. Discussed with him and his father. Recommended hospital admission for iv abx and plastic surgery and orthopedic surgery evaluation. May need significant surgery in order to obtain source control to help this resolve completely. He is clinically stable at this time, but wound is steadily worsening. They plan on seeing Dr. Beaver at an outpt early next week, but agree that any surgical plan will need orthopedic input and/or assistance. D/w Dr. Keith, will follow as needed, thank you for this referral.
--- NOTE | 2018-12-06 12:34 | PCM.WC.PN ---
(1) Stage IV decubitus ulcer Status: Chronic Current Visit: Yes Code(s): L89.94 - Pressure ulcer of unspecified site, stage 4 (2) Chronic osteomyelitis, pelvic region and thigh Status: Chronic Current Visit: No Code(s): M86.659 - Other chronic osteomyelitis, unspecified thigh Comment: right sacral area (3) Spina bifida Status: Chronic Current Visit: Yes Qualifiers: Code(s): Q05.9 - Spina bifida, unspecified Type of Wound Chief Complaint: Right ischium ulcer History of Wound: Marcos is a 23-year-old with past medical history of spina bifida, paraplegia, and Stage 3 right ischial pressure ulceration. The patient has been long-term at our facility, with care provided by other providers and most recently by Alondra Menjivar NP. Transfer of care today due to insurance change. No new complaints at this time. Has had one application of epi fix so far. Progress of Wound: Worsening ulceration. Copious drainage and difficulty with wound VAC over the last week. - Physical Exam Vital Signs Temp Pulse Resp BP 98.7 F 98 16 101/65 12/06/18 09:25 12/06/18 09:25 12/06/18 09:25 12/06/18 09:25 General: Alert, Oriented x3, Cooperative, No apparent distress HEENT: Atraumatic Oral: Moist Mucosa Neck: Supple Lungs: Normal air movement Extremities: No cyanosis Skin: Ulcer/ Wound Wound Measurements and Assessment WC - Nurse 1 - General Ulcer Measurement Start: 11/28/18 09:33 Freq: Status: Active Protocol: Activity Type Activity Date Activity User E-Sign Co-Sign Detail Recorded Client Recorded Date Recorded By Document 12/06/18 09:25 [facility] [id number] 12/06/18 09:36 [facility] 12/06/18 09:25 Wound Center Nurse 1 [Ulcer Assessment] #6 RIGHT ISCHIUM -Combined with other wound No -Current Size (cm) - Length 6.6 -Current Size (cm) - Width 4.6 -Current Size (cm) - Depth 0.6 -Total Square Cm 30.36 -Photo Taken No -Epithelialization None Present -Tunneling Yes -Tunneling Position (O'clock) 12 -Tunneling Distance (cm) 4.2 -Undermining/Tunneling No -Circular Undermining No -Exudate Amt Large -Exudate Type Serosanguineous -Wound Margin Thickened -Granulation Amt Large (67-100%) -Granulation Quality Red -Slough/Fibrin Yes -Necrosis Amt Small (1-33%) -Necrotic Tissue Type Adherent Slough -Texture (Ida-wound Skin Appearance) Assessed Scarring -Moisture (Ida-wound Skin Appearance Assessed ) Maceration -Color (Ida-wound Skin Appearance) Assessed Palor -Temperature (Ida-wound Skin No Abnormality Appearance) (Pt Warm) -Tenderness on Palpation (Ida-wound No Skin Appearance) -Ulcer Cleansing Wound Cleanser -Foul Odor after Cleansing No -Anesthetic Used 4% Lidocaine Solution WC - Nurse 2 - General Ulcer CM Notes Start: 11/28/18 09:33 Freq: Status: Active Protocol: Activity Type Activity Date Activity User E-Sign Co-Sign Detail Recorded Client Recorded Date Recorded By Document 12/06/18 09:49 MW [id number] 12/06/18 10:02 MW 12/06/18 09:49 Wound Center Nurse 2 [Procedure/Treatment] -Time 09:49 -Correct Patient Yes -Correct Side, Site, Position Yes -Correct Procedure Yes -Procedure Performed Yes -Type of Procedure Debridement -Clinical Debridement Subcutaneous -Post Debridement Size (cm) - Length 4.5 -Post Debridement Size (cm) - Width 6.5 -Post Debridement Size (cm) - Depth 1.3 -Total Square Cm 29.25 -Wound/Ulcer Outcome Not Healed -Ulcer Cleansing Rinsed/ Irrigated with Saline -Foul Odor after Cleansing No -Bioengineered Tissue No -Bleeding Controlled with Pressure -Offloading No -Treatment Response Procedure Tolerated Well [See Physician Procedure note for Specifics] Pain Scale: 0-10 Numeric [Pain] -Is Patient Pain Free? Yes Neurological: Cranial nerves II-XII grossly intact Psych/Mental Status: Normal Affect Debridement Note Post-Debridement Measurements/Treatment WC - Nurse 2 - General Ulcer CM Notes Start: 11/28/18 09:33 Freq: Status: Active Protocol: Activity Type Activity Date Activity User E-Sign Co-Sign Detail Recorded Client Recorded Date Recorded By Document 11/28/18 10:11 MW [id number] 11/28/18 10:20 MW Document 12/06/18 09:49 MW [id number] 12/06/18 10:02 MW 11/28/18 12/06/18 10:11 09:49 Wound Center Nurse 2 #6 RIGHT ISCHIUM -Time 10:12 09:49 -Correct Patient Yes Yes -Correct Side, Site, Position Yes Yes -Correct Procedure Yes Yes -Procedure Performed Yes Yes -Type of Procedure Debridement Debridement -Clinical Debridement Subcutaneous Subcutaneous -Post Debridement Size (cm) - Length 5.5 4.5 -Post Debridement Size (cm) - Width 3.5 6.5 -Post Debridement Size (cm) - Depth 1.0 1.3 -Total Square Cm 19.25 29.25 -Wound/Ulcer Outcome Not Healed Not Healed -Ulcer Cleansing Rinsed/ Rinsed/ Irrigated with Irrigated with Saline Saline -Foul Odor after Cleansing No No -Bioengineered Tissue No No -Bleeding Controlled with Pressure Pressure -Other tunnel @7 - 4. 4cm -Offloading No No -Treatment Response Procedure Procedure Tolerated Well Tolerated Well Pain Scale: 0-10 Numeric Is Patient Pain Free? Yes Yes Wound debrided: Right buttock Wound Grade/Stage: Stage IV Type of Debridement: Excisional debridement Anesthesia Used: 4% Lidocaine Solution Depth: Down to and including healthy tissue, in the subcutaneous layer Percentage of wound debrided: 100 Instrument Used: 5mm curette Tissue Removed: Slough and devitalized tissue Severity: Fat Layer Exposed Amount of bleeding with debridement: Mild Bleeding Controlled with: Pressure Patient tolerated procedure well Assessment/Plan Clinical Impression(s) from Imaging Studies Pelvis CT 11/28/18 11:14 IMPRESSION: Large decubitus ulcer overlying the right hip joint with extension to the underlying femur with destruction of the greater trochanter and sclerosis of the intertrochanteric region of the right femur. Multiple other findings as described. These are unchanged. Electronically Signed: Jairo Cooley MD at 15:23 EST , Service support , Active Problems Stage IV decubitus ulcer (Chronic) Spina bifida (Chronic) Assessment: Decubitus ulcer stage IV right buttock. Spina bifida. Paraplegia. History of osteomyelitis. Plan: Worsening ulcer. CAT scan reviewed and there is extension to his right hip joint. Pretty similar to 2016. Referral has been placed to orthopedic surgery and plastic surgery. He had followed with Dr. Beaver over the last 2 years and has had surgical debridement with PICC line placement/IV antibiotics. However, I did discuss with his mother last week that I believe he would need more aggressive management/orthopedic input due to chronicity/recurrence. Also appreciate Input from Dr. Ingram who recommends inpatient management and orthopedic input as well. His father however states that he would like to hold off until he sees Dr. Beaver on Monday. Continue wound VAC at 150 mmHg. Change daily due to significant drainage. Increased protein intake recommended. Advised to call with any questions or concerns. Follow-up with me in 1 week if not hospitalized. This note was generated with [employer] dictation software. It may contain incorrect words, spelling, and punctuation that were not noted in checking the note before signing.
--- NOTE | 2018-12-06 12:41 | PN.PCM_ITS ---
(1) Stage IV decubitus ulcer Status: Chronic Current Visit: Yes Code(s): L89.94 - Pressure ulcer of unspecified site, stage 4 (2) Chronic osteomyelitis, pelvic region and thigh Status: Chronic Current Visit: No Code(s): M86.659 - Other chronic osteomyelitis, unspecified thigh Comment: right sacral area (3) Spina bifida Status: Chronic Current Visit: Yes Qualifiers: Code(s): Q05.9 - Spina bifida, unspecified Type of Wound Chief Complaint: Right ischium ulcer History of Wound: Marcos is a 23-year-old with past medical history of spina bifida, paraplegia, and Stage 3 right ischial pressure ulceration. The patient has been long-term at our facility, with care provided by other providers and most recently by Alondra Menjivar NP. Transfer of care today due to insurance change. No new complaints at this time. Has had one application of epi fix so far. Progress of Wound: Worsening ulceration. Copious drainage and difficulty with wound VAC over the last week. - Physical Exam Vital Signs Temp Pulse Resp BP 98.7 F 98 16 101/65 12/06/18 09:25 12/06/18 09:25 12/06/18 09:25 12/06/18 09:25 General: Alert, Oriented x3, Cooperative, No apparent distress HEENT: Atraumatic Oral: Moist Mucosa Neck: Supple Lungs: Normal air movement Extremities: No cyanosis Skin: Ulcer/ Wound Wound Measurements and Assessment WC - Nurse 1 - General Ulcer Measurement Start: 11/28/18 09:33 Freq: Status: Active Protocol: Activity Type Activity Date Activity User E-Sign Co-Sign Detail Recorded Client Recorded Date Recorded By Document 12/06/18 09:25 [facility] [id number] 12/06/18 09:36 [facility] 12/06/18 09:25 Wound Center Nurse 1 [Ulcer Assessment] #6 RIGHT ISCHIUM -Combined with other wound No -Current Size (cm) - Length 6.6 -Current Size (cm) - Width 4.6 -Current Size (cm) - Depth 0.6 -Total Square Cm 30.36 -Photo Taken No -Epithelialization None Present -Tunneling Yes -Tunneling Position (O'clock) 12 -Tunneling Distance (cm) 4.2 -Undermining/Tunneling No -Circular Undermining No -Exudate Amt Large -Exudate Type Serosanguineous -Wound Margin Thickened -Granulation Amt Large (67-100%) -Granulation Quality Red -Slough/Fibrin Yes -Necrosis Amt Small (1-33%) -Necrotic Tissue Type Adherent Slough -Texture (Ida-wound Skin Appearance) Assessed Scarring -Moisture (Ida-wound Skin Appearance Assessed ) Maceration -Color (Ida-wound Skin Appearance) Assessed Palor -Temperature (Ida-wound Skin No Abnormality Appearance) (Pt Warm) -Tenderness on Palpation (Ida-wound No Skin Appearance) -Ulcer Cleansing Wound Cleanser -Foul Odor after Cleansing No -Anesthetic Used 4% Lidocaine Solution WC - Nurse 2 - General Ulcer CM Notes Start: 11/28/18 09:33 Freq: Status: Active Protocol: Activity Type Activity Date Activity User E-Sign Co-Sign Detail Recorded Client Recorded Date Recorded By Document 12/06/18 09:49 MW [id number] 12/06/18 10:02 MW 12/06/18 09:49 Wound Center Nurse 2 [Procedure/Treatment] -Time 09:49 -Correct Patient Yes -Correct Side, Site, Position Yes -Correct Procedure Yes -Procedure Performed Yes -Type of Procedure Debridement -Clinical Debridement Subcutaneous -Post Debridement Size (cm) - Length 4.5 -Post Debridement Size (cm) - Width 6.5 -Post Debridement Size (cm) - Depth 1.3 -Total Square Cm 29.25 -Wound/Ulcer Outcome Not Healed -Ulcer Cleansing Rinsed/ Irrigated with Saline -Foul Odor after Cleansing No -Bioengineered Tissue No -Bleeding Controlled with Pressure -Offloading No -Treatment Response Procedure Tolerated Well [See Physician Procedure note for Specifics] Pain Scale: 0-10 Numeric [Pain] -Is Patient Pain Free? Yes Neurological: Cranial nerves II-XII grossly intact Psych/Mental Status: Normal Affect Debridement Note Post-Debridement Measurements/Treatment WC - Nurse 2 - General Ulcer CM Notes Start: 11/28/18 09:33 Freq: Status: Active Protocol: Activity Type Activity Date Activity User E-Sign Co-Sign Detail Recorded Client Recorded Date Recorded By Document 11/28/18 10:11 MW [id number] 11/28/18 10:20 MW Document 12/06/18 09:49 MW [id number] 12/06/18 10:02 MW 11/28/18 12/06/18 10:11 09:49 Wound Center Nurse 2 #6 RIGHT ISCHIUM -Time 10:12 09:49 -Correct Patient Yes Yes -Correct Side, Site, Position Yes Yes -Correct Procedure Yes Yes -Procedure Performed Yes Yes -Type of Procedure Debridement Debridement -Clinical Debridement Subcutaneous Subcutaneous -Post Debridement Size (cm) - Length 5.5 4.5 -Post Debridement Size (cm) - Width 3.5 6.5 -Post Debridement Size (cm) - Depth 1.0 1.3 -Total Square Cm 19.25 29.25 -Wound/Ulcer Outcome Not Healed Not Healed -Ulcer Cleansing Rinsed/ Rinsed/ Irrigated with Irrigated with Saline Saline -Foul Odor after Cleansing No No -Bioengineered Tissue No No -Bleeding Controlled with Pressure Pressure -Other tunnel @7 - 4. 4cm -Offloading No No -Treatment Response Procedure Procedure Tolerated Well Tolerated Well Pain Scale: 0-10 Numeric Is Patient Pain Free? Yes Yes Wound debrided: Right buttock Wound Grade/Stage: Stage IV Type of Debridement: Excisional debridement Anesthesia Used: 4% Lidocaine Solution Depth: Down to and including healthy tissue, in the subcutaneous layer Percentage of wound debrided: 100 Instrument Used: 5mm curette Tissue Removed: Slough and devitalized tissue Severity: Fat Layer Exposed Amount of bleeding with debridement: Mild Bleeding Controlled with: Pressure Patient tolerated procedure well Assessment/Plan Clinical Impression(s) from Imaging Studies Pelvis CT 11/28/18 11:14 IMPRESSION: Large decubitus ulcer overlying the right hip joint with extension to the underlying femur with destruction of the greater trochanter and sclerosis of the intertrochanteric region of the right femur. Multiple other findings as described. These are unchanged. Electronically Signed: Jairo Cooley MD at 15:23 EST , Service support , Active Problems Stage IV decubitus ulcer (Chronic) Spina bifida (Chronic) Assessment: Decubitus ulcer stage IV right buttock. Spina bifida. Paraplegia. History of osteomyelitis. Plan: Worsening ulcer. CAT scan reviewed and there is extension to his right hip joint. Pretty similar to 2016. Referral has been placed to orthopedic surgery and plastic surgery. He had followed with Dr. Beaver over the last 2 years and has had surgical debridement with PICC line placement/IV antibiotics. However, I did discuss with his mother last week that I believe he would need more aggressive management/orthopedic input due to chronicity/recurrence. Also appreciate Input from Dr. Ingram who recommends inpatient management and orthopedic input as well. His father however states that he would like to hold off until he sees Dr. Beaver on Monday. Continue wound VAC at 150 mmHg. Change daily due to significant drainage. Increased protein intake recommended. Advised to call with any questions or concerns. Follow-up with me in 1 week if not hospitalized. This note was generated with [employer] dictation software. It may contain incorrect words, spelling, and punctuation that were not noted in checking the note before signing.
[2018-12-10 11:26] VITALS: BMI 13.4
--- NOTE | 2018-12-10 17:32 | PCM.WC.PN ---
Type of Wound Date of Service: 12/10/18 Chief Complaint: Right trochanteric pressure sore, Stage IV. History of Wound: Patient is known to me from previous surgeries back in 2013 asnd 2014. He had a right ischial pressure sore with extension to the right trochanteric area. He has had osteomyelitis in the past and underwent HBO treatments. He had chronic infections in his pressure sore usually secondary to his chronic urinary issues, namely Pseudomonas aeroginosa, Proteus mirabilis, Enterococcus faecalis, E. coli, and resistant Staph. I haven't seen him since 2016. He developed a recurrence of his pressure sore and Epifix placental graft had been recently placed. The pressure sore worsened with drainage and extension to the right hip joint that was confirmed on recent CT scan on 11/28/18. He was recently hospitalized in early October for urinary infection. Culture showed Pseudomonas aeroginosa. He also had Streptococcus cristatus in the blood. He was discharged on Augmentin and Cipro. When the CT was done on 11/28/18, a wound culture was done. It showed Pseudomonas aeroginosa, Anaerobic cocci, and Corynebacterium striatum. He was seen by Infectious Diseases who recommended IV antibiotics and surgical debridement. He comes in today to discuss surgical options for treatment. He denies fever. Of note, he also had wound cultures on 06/08/18 and 07/27/18. They were positive for MRSA, Proteus mirabilis, E. coli, and MDR Burkhoderia cepacia and he was treated with antibiotics. Progress of Wound: No improvement with the right trochanteric pressure sore with continued drainage and palpable bone and hip joint involvement. - Physical Exam Vital Signs Temp Pulse Resp BP 98.7 F 98 16 101/65 12/06/18 09:25 12/06/18 09:25 12/06/18 09:25 12/06/18 09:25 Skin: Ulcer/ Wound - right trochanteric pressure sore, Stage IV, extends to the bone with right hip involvement. Copious non purulent drainage noted. No odor. Wound Measurements and Assessment WC - Nurse 1 - General Ulcer Measurement Start: 11/28/18 09:33 Freq: Status: Active Protocol: Activity Type Activity Date Activity User E-Sign Co-Sign Detail Recorded Client Recorded Date Recorded By Document 12/10/18 11:26 DV [id number] 12/10/18 11:40 12/10/18 11:26 Wound Center Nurse 1 [Ulcer Assessment] #6 RIGHT ISCHIUM -Combined with other wound No -Current Size (cm) - Length 1.0 -Current Size (cm) - Width 1.5 -Current Size (cm) - Depth 1.3 -Total Square Cm 1.50 -Photo Taken No -Epithelialization None Present -Tunneling Yes -Tunneling Position (O'clock) 2 -Tunneling Distance (cm) 5.0 -Undermining/Tunneling No -Circular Undermining No -Classification - Thickness Full Thickness without Exposed Support Structure -Exudate Amt Large -Exudate Type Serosanguineous -Wound Margin Indistinct, Non -Visible -Granulation Amt None Present (0 %) -Granulation Quality N/A -Slough/Fibrin Yes -Necrosis Amt Large (67-100%) -Necrotic Tissue Type Adherent Slough -Structure Exposed None/Limited to Skin Breakdown -Texture (Ida-wound Skin Appearance) Assessed Scarring -Moisture (Ida-wound Skin Appearance Assessed ) Weeping -Color (Ida-wound Skin Appearance) Assessed Palor -Temperature (Ida-wound Skin No Abnormality Appearance) (Pt Warm) -Tenderness on Palpation (Ida-wound No Skin Appearance) -Ulcer Cleansing Rinsed/ Irrigated with Saline -Foul Odor after Cleansing No WC - Nurse 2 - General Ulcer CM Notes Start: 11/28/18 09:33 Freq: Status: Active Protocol: Activity Type Activity Date Activity User E-Sign Co-Sign Detail Recorded Client Recorded Date Recorded By Document 12/10/18 12:50 [id number] 12/10/18 12:51 12/10/18 12:50 Wound Center Nurse 2 [Procedure/Treatment] -Correct Patient No -Correct Side, Site, Position No -Correct Procedure No -Procedure Performed No [See Physician Procedure note for Specifics] Pain Scale: 0-10 Numeric [Pain] -Is Patient Pain Free? Yes Debridement Note Post-Debridement Measurements/Treatment WC - Nurse 2 - General Ulcer CM Notes Start: 11/28/18 09:33 Freq: Status: Active Protocol: Activity Type Activity Date Activity User E-Sign Co-Sign Detail Recorded Client Recorded Date Recorded By Document 11/28/18 10:11 [id number] 11/28/18 10:20 MW Document 12/06/18 09:49 MW [id number] 12/06/18 10:02 MW Document 12/10/18 12:50 JF [id number] 12/10/18 12:51 JF 11/28/18 12/06/18 12/10/18 10:11 09:49 12:50 Wound Center Nurse 2 #6 RIGHT ISCHIUM -Time 10:12 09:49 -Correct Patient Yes Yes No -Correct Side, Site, Position Yes Yes No -Correct Procedure Yes Yes No -Procedure Performed Yes Yes No -Type of Procedure Debridement Debridement -Clinical Debridement Subcutaneous Subcutaneous -Post Debridement Size (cm) - Length 5.5 4.5 -Post Debridement Size (cm) - Width 3.5 6.5 -Post Debridement Size (cm) - Depth 1.0 1.3 -Total Square Cm 19.25 29.25 -Wound/Ulcer Outcome Not Healed Not Healed -Ulcer Cleansing Rinsed/ Rinsed/ Irrigated with Irrigated with Saline Saline -Foul Odor after Cleansing No No -Bioengineered Tissue No No -Bleeding Controlled with Pressure Pressure -Other tunnel @7 - 4. 4cm -Offloading No No -Treatment Response Procedure Procedure Tolerated Well Tolerated Well Pain Scale: 0-10 Numeric Is Patient Pain Free? Yes Yes Yes Wound debrided: #6 Right trochanteric area. Laterality: Right Wound Grade/Stage: IV. No debridement was completed today - The patient has a complex infected pressure sore with bone exposed and hip involvement. He needs extensive operative excision of the pressure sore with bony debridement and femoral head resection. I suspect with the severity and chronicity of the infection, that he will ultimately need eventual muscle flap to close the hip space with a total thigh flap with hip disarticulation amputation. Assessment/Plan Clinical Impression(s) from Imaging Studies Pelvis CT 11/28/18 11:14 IMPRESSION: Large decubitus ulcer overlying the right hip joint with extension to the underlying femur with destruction of the greater trochanter and sclerosis of the intertrochanteric region of the right femur. Multiple other findings as described. These are unchanged. Electronically Signed: Jairo Cooley MD at 15:23 EST , Service support , Active Problems Stage IV decubitus ulcer (Chronic) Spina bifida (Chronic) Assessment: 1. Right trochanteric pressure sore, Stage IV, with extension to the hip joint. 2. Right hip joint infection secondary to the pressure sore. 3. Osteomyelitis. 4. MRSA. 5. MDR Burkholderia cepacia. 6. History of Pseudomonas urinary infections. 7. History of Pseudomonas wound infections. 8. Paraplegia. 9. Spina bifida.. Plan: Patient has a complex infected right trochanteric pressure sore, Stage IV, with drainage and extension to bone and has right hip involvement. Patient needs operative excision of this complex infected pressure sore which will include bony debridement and a femoral head resection to get control of the hip joint infection. After the femoral head resection, he will need an eventual muscle flap to close the hip space with a total thigh flap with disarticulation amputation. These procedures can be quite bloody and would be best served at a tertiary center. The patient states he wants to go to [place] for evaluation for this complex surgery. He will also need long-term IV antibiotics and placement of a PICC line. I also anticipate increased metabolic demands from the infection and from the pressure sore ulcer. Will check a Prealbumin and encourage nutritional supplementation with protein to help the healing process. For healing purposes after the infection has been controlled, he can benefit from HBO treatments because of his history of chronic refractory osteomyelitis. He tolerated HBO treatments in the past. They had been using the VAC. They don't have the VAC today. Will dress the wound with Silver dressing until the VAC is available and will continue the wound care until seen in [place]. The father understands that the wound care is just temporary until the surgery is done. After the infection is controlled, the VAC can be reapplied. Patient's father was informed of the risks and complications of the procedure including alternatives to surgery. These were discussed with him personally. He voiced understanding and wishes to proceed. 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 Father does not want to take his son to the ED today. He understands that if his ulcer worsens before he is seen in [place], he will go to the ED for evaluation for admission and treatment.
== END 2018-12-20 23:59 ==
LOC: WC 10:15
PROVIDERS: Family Provider Family Medicine; PCP Family Medicine; Referring Provider Internal Medicine; Visit Provider Internal Medicine
DX: L89.214 Pressure ulcer of right hip, stage 4 (principal); L89.213 Pressure ulcer of right hip, stage 3; Q05.9 Spina bifida, unspecified; G82.20 Paraplegia, unspecified; N39.0 Urinary tract infection, site not specified; M86.659 Other chronic osteomyelitis, unspecified thigh
CPT/HCPCS: 11042; 11045; 72193; 87070; 87075; 87077; 87186; 87205; 97605; 99212; Q9967; G0463

== ENCOUNTER 2019-02-06 10:11 | Outpatient (RCR) | payer OTHER, MEDICAID, SELFPAY ==
[2018-12-21 00:53] VITALS: BP 101/65; PULSE 98; RESP 16; TEMP 37.1
[2019-02-06 10:42] VITALS: BP 102/67; PULSE 125; RESP 18; TEMP 37; BMI 13.4
--- NOTE | 2019-02-06 10:52 | WC ---
pt states he had surgery colostomy placed on 01/29/19. GT placed also on same day.
--- NOTE | 2019-02-06 13:05 | PCM.WC.HP ---
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 History of Wound: Marcos is well-known to me and has received care at the wound center for over a year. He was last seen here over a month ago at which time he was referred for further surgical management of his chronic right pelvic region osteomyelitis. He was seen at [facility] and plan is for extensive surgical procedure. Prior to that due to significant malnutrition he had a G-tube placed and also had a colostomy placed. Recently discharged from [facility] in initial pelvic surgery/amputation is scheduled for 2 months. For now, he continues to apply wound VAC to his right buttock decubitus ulcer. Drainage is said to have improved since the colostomy. He denies chills, fever or feeling of unwell at this time. 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 Allergies/Adverse Reactions: Allergies latex Allergy (Verified 10/25/18 15:25) Unknown unsure as charted levofloxacin [Levofloxacin] Allergy (Verified 10/25/18 15:25) Rash sulfamethoxazole [From Bactrim] Allergy (Verified 10/25/18 15:25) Rash trimethoprim [From Bactrim] Allergy (Verified 10/25/18 15:25) Rash Home Medications: Ambulatory Orders Medication Instructions Recorded Polyethylene Glycol 3350 [Miralax] 17 gm PO DAILY #30 05/06/14 Argin/Glut/Cahmb/Collag/Mv-Min 1 each PO BID MDD SUPPLEMENT 10/25/18 [Mark Packet] Caloric Supplement [Benecalorie] 7.5 kcal PO DAILY 10/25/18 Cyproheptadine HCl 4 mg PO DAILY 10/25/18 Vitamin E 400 units PO DAILY 10/25/18 - Family History Maternal - - Mother with a history of borderline hypertension. Paternal - - Father with a history of diabetes. Smoking Status: Never smoker Review of Systems Constitutional: Denies: Chills Eyes: Denies: Blurred vision, Pain HEENT: Denies: Difficulty Swallowing Cardiovascular: Denies: Chest Pain, Chest Pressure Respiratory: Denies: Hemoptysis Gastrointestinal: Denies: Hematemesis Skin: Denies: Jaundice - Physical Exam Vital Signs Temp Pulse Resp BP 98.6 F 125 H 18 102/67 02/06/19 10:42 02/06/19 10:42 02/06/19 10:42 02/06/19 10:42 General: Alert, Oriented x3, Cooperative, No apparent distress HEENT: Atraumatic Oral: Moist Mucosa Neck: Supple Lungs: Normal air movement Extremities: No cyanosis Wound Measurements and Assessment WC - Nurse 1 - General Ulcer Measurement Start: 02/06/19 10:38 Freq: Status: Active Protocol: Activity Type Activity Date Activity User E-Sign Co-Sign Detail Recorded Client Recorded Date Recorded By Document 02/06/19 10:42 RB [id number] 02/06/19 10:53 RB 02/06/19 10:42 Wound Center Nurse 1 [Ulcer Assessment] 7. R ischium -Combined with other wound No -Current Size (cm) - Length 8 -Current Size (cm) - Width 5 -Current Size (cm) - Depth 0.2 -Total Square Cm 40 -Photo Taken Yes -Tunneling Yes -Tunneling Position (O'clock) 8 -Tunneling Distance (cm) 3.5 -Undermining/Tunneling No -Circular Undermining No -Exudate Amt Medium -Exudate Type Serosanguineous -Wound Margin Distinct, Outline Attached -Granulation Amt Large (67-100%) -Granulation Quality [place] Red -Slough/Fibrin Yes -Necrosis Amt Small (1-33%) -Necrotic Tissue Type Adherent Slough -Structure Exposed N/A -Texture (Ida-wound Skin Appearance) Assessed -Moisture (Ida-wound Skin Appearance Maceration ) -Color (Ida-wound Skin Appearance) Assessed -Temperature (Ida-wound Skin No Abnormality Appearance) (Pt Warm) -Tenderness on Palpation (Dia-wound No Skin Appearance) -Ulcer Cleansing Wound Cleanser -Foul Odor after Cleansing No [Edema Assessment] -Lower Limb Edema Present NA 02/06/19 10:52 Wound Center by Cinthia Lo pt states he had surgery colostomy placed on 01/29/19. GT placed also on same day. Initialized on 02/06/19 10:52 - END OF NOTE WC - Nurse 2 - General Ulcer CM Notes Start: 02/06/19 10:38 Freq: Status: Active Protocol: Activity Type Activity Date Activity User E-Sign Co-Sign Detail Recorded Client Recorded Date Recorded By Document 02/06/19 11:15 MW [id number] 02/06/19 11:25 MW 02/06/19 11:15 Wound Center Nurse 2 [Procedure/Treatment] 7. R ischium -Time 11:16 -Correct Patient Yes -Correct Side, Site, Position Yes -Correct Procedure Yes -Procedure Performed Yes -Type of Procedure Debridement -Clinical Debridement Subcutaneous -Post Debridement Size (cm) - Length 5.0 -Post Debridement Size (cm) - Width 8.0 -Post Debridement Size (cm) - Depth 2.8 -Total Square Cm 40.00 -Wound/Ulcer Outcome Not Healed -Ulcer Cleansing Rinsed/ Irrigated with Saline -Foul Odor after Cleansing No -Bioengineered Tissue No -Bleeding Controlled with Pressure -Offloading No -Treatment Response Procedure Tolerated Well [See Physician Procedure note for Specifics] Pain Scale: 0-10 Numeric [Pain] -Is Patient Pain Free? Yes Neurological: Cranial nerves II-XII grossly intact Psych/Mental Status: Normal Affect Debridement Note Post-Debridement Measurements/Treatment WC - Nurse 2 - General Ulcer CM Notes Start: 02/06/19 10:38 Freq: Status: Active Protocol: Activity Type Activity Date Activity User E-Sign Co-Sign Detail Recorded Client Recorded Date Recorded By Document 02/06/19 11:15 MW [id number] 02/06/19 11:25 MW 02/06/19 11:15 Wound Center Nurse 2 7. R ischium -Time 11:16 -Correct Patient Yes -Correct Side, Site, Position Yes -Correct Procedure Yes -Procedure Performed Yes -Type of Procedure Debridement -Clinical Debridement Subcutaneous -Post Debridement Size (cm) - Length 5.0 -Post Debridement Size (cm) - Width 8.0 -Post Debridement Size (cm) - Depth 2.8 -Total Square Cm 40.00 -Wound/Ulcer Outcome Not Healed -Ulcer Cleansing Rinsed/ Irrigated with Saline -Foul Odor after Cleansing No -Bioengineered Tissue No -Bleeding Controlled with Pressure -Offloading No -Treatment Response Procedure Tolerated Well Pain Scale: 0-10 Numeric Is Patient Pain Free? 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 Right trochanteric pressure sore, Stage IV, with extension to the hip joint. 2. Right hip joint infection secondary to the pressure sore. 3. Osteomyelitis. 4. MRSA. 5. MDR Burkholderia cepacia. 6. History of Pseudomonas urinary infections. 7. History of Pseudomonas wound infections. 8. Paraplegia. 9. Spina bifida.. Plan: No significant concerns at this time. He is coming to the wound center for interim wound care prior to surgery. The unable to follow-up with the wound center at [facility]. Plan is for initial surgery possibly in 2 months. Currently utilizing the VAC. Debridement done as documented above, procedure was well-tolerated. Continue wound VAC at 125 mmHg. Change every other day. Continue increased protein intake/nutritional support to optimize patient for surgery. Continue offloading. They were advised to call with any questions or concerns. Follow-up in 2 weeks. This note was generated with [employer] dictation software. It may contain incorrect words, spelling, and punctuation that were not noted in checking the note before signing.
--- NOTE | 2019-02-06 13:09 | HP.PCM_ITS ---
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 History of Wound: Marcos is well-known to me and has received care at the wound center for over a year. He was last seen here over a month ago at which time he was referred for further surgical management of his chronic right pelvic region osteomyelitis. He was seen at [facility] and plan is for extensive surgical procedure. Prior to that due to significant malnutrition he had a G-tube placed and also had a colostomy placed. Recently discharged from [facility] in initial pelvic surgery/amputation is scheduled for 2 months. For now, he continues to apply wound VAC to his right buttock decubitus ulcer. Drainage is said to have improved since the colostomy. He denies chills, fever or feeling of unwell at this time. 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 Allergies/Adverse Reactions: Allergies latex Allergy (Verified 10/25/18 15:25) Unknown unsure as charted levofloxacin [Levofloxacin] Allergy (Verified 10/25/18 15:25) Rash sulfamethoxazole [From Bactrim] Allergy (Verified 10/25/18 15:25) Rash trimethoprim [From Bactrim] Allergy (Verified 10/25/18 15:25) Rash Home Medications: Ambulatory Orders Medication Instructions Recorded Polyethylene Glycol 3350 [Miralax] 17 gm PO DAILY #30 05/06/14 Argin/Glut/Cahmb/Collag/Mv-Min 1 each PO BID MDD SUPPLEMENT 10/25/18 [Mark Packet] Caloric Supplement [Benecalorie] 7.5 kcal PO DAILY 10/25/18 Cyproheptadine HCl 4 mg PO DAILY 10/25/18 Vitamin E 400 units PO DAILY 10/25/18 - Family History Maternal - - Mother with a history of borderline hypertension. Paternal - - Father with a history of diabetes. Smoking Status: Never smoker Review of Systems Constitutional: Denies: Chills Eyes: Denies: Blurred vision, Pain HEENT: Denies: Difficulty Swallowing Cardiovascular: Denies: Chest Pain, Chest Pressure Respiratory: Denies: Hemoptysis Gastrointestinal: Denies: Hematemesis Skin: Denies: Jaundice - Physical Exam Vital Signs Temp Pulse Resp BP 98.6 F 125 H 18 102/67 02/06/19 10:42 02/06/19 10:42 02/06/19 10:42 02/06/19 10:42 General: Alert, Oriented x3, Cooperative, No apparent distress HEENT: Atraumatic Oral: Moist Mucosa Neck: Supple Lungs: Normal air movement Extremities: No cyanosis Wound Measurements and Assessment WC - Nurse 1 - General Ulcer Measurement Start: 02/06/19 10:38 Freq: Status: Active Protocol: Activity Type Activity Date Activity User E-Sign Co-Sign Detail Recorded Client Recorded Date Recorded By Document 02/06/19 10:42 RB [id number] 02/06/19 10:53 RB 02/06/19 10:42 Wound Center Nurse 1 [Ulcer Assessment] 7. R ischium -Combined with other wound No -Current Size (cm) - Length 8 -Current Size (cm) - Width 5 -Current Size (cm) - Depth 0.2 -Total Square Cm 40 -Photo Taken Yes -Tunneling Yes -Tunneling Position (O'clock) 8 -Tunneling Distance (cm) 3.5 -Undermining/Tunneling No -Circular Undermining No -Exudate Amt Medium -Exudate Type Serosanguineous -Wound Margin Distinct, Outline Attached -Granulation Amt Large (67-100%) -Granulation Quality [place] Red -Slough/Fibrin Yes -Necrosis Amt Small (1-33%) -Necrotic Tissue Type Adherent Slough -Structure Exposed N/A -Texture (Ida-wound Skin Appearance) Assessed -Moisture (Ida-wound Skin Appearance Maceration ) -Color (Ida-wound Skin Appearance) Assessed -Temperature (Ida-wound Skin No Abnormality Appearance) (Pt Warm) -Tenderness on Palpation (Ida-wound No Skin Appearance) -Ulcer Cleansing Wound Cleanser -Foul Odor after Cleansing No [Edema Assessment] -Lower Limb Edema Present NA 02/06/19 10:52 Wound Center by Cinthia Lo pt states he had surgery colostomy placed on 01/29/19. GT placed also on same day. Initialized on 02/06/19 10:52 - END OF NOTE WC - Nurse 2 - General Ulcer CM Notes Start: 02/06/19 10:38 Freq: Status: Active Protocol: Activity Type Activity Date Activity User E-Sign Co-Sign Detail Recorded Client Recorded Date Recorded By Document 02/06/19 11:15 MW [id number] 02/06/19 11:25 MW 02/06/19 11:15 Wound Center Nurse 2 [Procedure/Treatment] 7. R ischium -Time 11:16 -Correct Patient Yes -Correct Side, Site, Position Yes -Correct Procedure Yes -Procedure Performed Yes -Type of Procedure Debridement -Clinical Debridement Subcutaneous -Post Debridement Size (cm) - Length 5.0 -Post Debridement Size (cm) - Width 8.0 -Post Debridement Size (cm) - Depth 2.8 -Total Square Cm 40.00 -Wound/Ulcer Outcome Not Healed -Ulcer Cleansing Rinsed/ Irrigated with Saline -Foul Odor after Cleansing No -Bioengineered Tissue No -Bleeding Controlled with Pressure -Offloading No -Treatment Response Procedure Tolerated Well [See Physician Procedure note for Specifics] Pain Scale: 0-10 Numeric [Pain] -Is Patient Pain Free? Yes Neurological: Cranial nerves II-XII grossly intact Psych/Mental Status: Normal Affect Debridement Note Post-Debridement Measurements/Treatment WC - Nurse 2 - General Ulcer CM Notes Start: 02/06/19 10:38 Freq: Status: Active Protocol: Activity Type Activity Date Activity User E-Sign Co-Sign Detail Recorded Client Recorded Date Recorded By Document 02/06/19 11:15 MW [id number] 02/06/19 11:25 MW 02/06/19 11:15 Wound Center Nurse 2 7. R ischium -Time 11:16 -Correct Patient Yes -Correct Side, Site, Position Yes -Correct Procedure Yes -Procedure Performed Yes -Type of Procedure Debridement -Clinical Debridement Subcutaneous -Post Debridement Size (cm) - Length 5.0 -Post Debridement Size (cm) - Width 8.0 -Post Debridement Size (cm) - Depth 2.8 -Total Square Cm 40.00 -Wound/Ulcer Outcome Not Healed -Ulcer Cleansing Rinsed/ Irrigated with Saline -Foul Odor after Cleansing No -Bioengineered Tissue No -Bleeding Controlled with Pressure -Offloading No -Treatment Response Procedure Tolerated Well Pain Scale: 0-10 Numeric Is Patient Pain Free? 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 Right trochanteric pressure sore, Stage IV, with extension to the hip joint. 2. Right hip joint infection secondary to the pressure sore. 3. Osteomyelitis. 4. MRSA. 5. MDR Burkholderia cepacia. 6. History of Pseudomonas urinary infections. 7. History of Pseudomonas wound infections. 8. Paraplegia. 9. Spina bifida.. Plan: No significant concerns at this time. He is coming to the wound center for interim wound care prior to surgery. The unable to follow-up with the wound center at [facility]. Plan is for initial surgery possibly in 2 months. Currently utilizing the VAC. Debridement done as documented above, procedure was well-tolerated. Continue wound VAC at 125 mmHg. Change every other day. Continue increased protein intake/nutritional support to optimize patient for surgery. Continue offloading. They were advised to call with any questions or concerns. Follow-up in 2 weeks. This note was generated with [employer] dictation software. It may contain incorrect words, spelling, and punctuation that were not noted in checking the note before signing.
== END 2019-02-19 23:59 ==
LOC: WC 10:11
PROVIDERS: Family Provider Family Medicine; PCP Family Medicine; Referring Provider Internal Medicine; Visit Provider Internal Medicine
DX: L89.214 Pressure ulcer of right hip, stage 4 (principal); Q05.9 Spina bifida, unspecified; M86.659 Other chronic osteomyelitis, unspecified thigh; Z93.3 Colostomy status; G82.20 Paraplegia, unspecified
CPT/HCPCS: 11042; 11045; 99213; G0463

== ENCOUNTER 2019-03-20 10:00 | Outpatient (RCR) | payer OTHER, MEDICAID, SELFPAY ==
[2019-02-20 00:23] VITALS: BP 102/67; PULSE 125; RESP 18; TEMP 37
[2019-02-20 10:16] VITALS: BMI 13.4
--- NOTE | 2019-02-20 10:53 | PN.PCM_ITS ---
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 History of Wound: Marcos is well-known to me and has received care at the wound center for over a year. He was last seen here over a month ago at which time he was referred for further surgical management of his chronic right pelvic region osteomyelitis. He was seen at [facility] and plan is for extensive surgical procedure. Prior to that due to significant malnutrition he had a G-tube placed and also had a colostomy placed. Recently discharged from [facility] in initial pelvic surgery/amputation is scheduled for 2 months. For now, he continues to apply wound VAC to his right buttock decubitus ulcer. Drainage is said to have improved since the colostomy. He denies chills, fever or feeling of unwell at this time. Progress of Wound: Has had problems over the past week with his wound Vac and stopped using it about 1 week ago. Father states that his vac was poorly draining and patient had losts of fluid collecting in his diaper. Now presents with new ulcer just right above the right buttock. - Physical Exam Vital Signs Temp Pulse Resp BP 98.6 F 125 H 18 102/67 02/20/19 00:23 02/20/19 00:23 02/20/19 00:23 02/20/19 00:23 General: Alert, Oriented x3, Cooperative, No apparent distress HEENT: Atraumatic, Normocephalic Oral: Moist Mucosa Neck: Supple Extremities: No cyanosis Skin: Ulcer/ Wound Wound Measurements and Assessment WC - Nurse 1 - General Ulcer Measurement Start: 02/20/19 10:12 Freq: Status: Active Protocol: Activity Type Activity Date Activity User E-Sign Co-Sign Detail Recorded Client Recorded Date Recorded By Document 02/20/19 10:16 DV [id number] 02/20/19 10:34 DV 02/20/19 10:16 Wound Center Nurse 1 [Ulcer Assessment] #8 Right Lower Lumbar -Combined with other wound No -Current Size (cm) - Length 1.5 -Current Size (cm) - Width 1.2 -Current Size (cm) - Depth 0.2 -Total Square Cm 1.80 -Photo Taken Yes -Epithelialization None Present -Tunneling No -Undermining/Tunneling No -Circular Undermining No -Classification - Thickness Full Thickness without Exposed Support Structure -Exudate Amt Medium -Exudate Type Serosanguineous -Wound Margin Flat & Intact -Granulation Amt None Present (0 %) -Granulation Quality N/A -Slough/Fibrin Yes -Necrosis Amt Large (67-100%) -Necrotic Tissue Type Adherent Slough -Structure Exposed None/Limited to Skin Breakdown -Texture (Ida-wound Skin Appearance) Assessed Scarring -Moisture (Ida-wound Skin Appearance Assessed ) Weeping -Color (Ida-wound Skin Appearance) No Abnormality Assessed -Temperature (Ida-wound Skin No Abnormality Appearance) (Pt Warm) -Ulcer Cleansing Rinsed/ Irrigated with Saline -Foul Odor after Cleansing No 7. R ischium -Combined with other wound No -Current Size (cm) - Length 5.5 -Current Size (cm) - Width 5.0 -Current Size (cm) - Depth 0.4 -Total Square Cm 27.50 -Photo Taken No -Epithelialization None Present -Tunneling No -Undermining/Tunneling No -Circular Undermining No -Classification - Thickness Full Thickness with Exposed Support Structure -Exudate Amt Large -Exudate Type Serosanguineous -Wound Margin Indistinct, Non -Visible -Granulation Amt None Present (0 %) -Granulation Quality N/A -Slough/Fibrin No -Necrotic Tissue Type Adherent Slough -Structure Exposed None/Limited to Skin Breakdown -Texture (Ida-wound Skin Appearance) Assessed Scarring -Moisture (Ida-wound Skin Appearance Assessed ) Weeping -Color (Ida-wound Skin Appearance) Assessed Palor -Temperature (Ida-wound Skin No Abnormality Appearance) (Pt Warm) -Tenderness on Palpation (Ida-wound No Skin Appearance) -Ulcer Cleansing Rinsed/ Irrigated with Saline -Foul Odor after Cleansing No [Edema Assessment] -Lower Limb Edema Present No Musculoskeletal: No Muscle Wasting Neurological: Cranial nerves II-XII grossly intact Psych/Mental Status: Normal Affect Debridement Note Wound debrided: Right Ischium Wound Grade/Stage: Stage IV Type of Debridement: Excisional debridement Anesthesia Used: 4% Lidocaine Solution Depth: Down to and including healthy tissue, in the subcutaneous layer Percentage of wound debrided: 100 Instrument Used: 7mm curette Tissue Removed: Slough and devitalized tissue Severity: Fat Layer Exposed Amount of bleeding with debridement: Mild Bleeding Controlled with: Pressure Patient tolerated procedure well - Additional Wound Wound debrided: Right upper buttock Wound Grade/Stage: Stage III Type of Debridement: Excisional debridement Anesthesia Used: 4% Lidocaine Solution Depth: Down to and including healthy tissue, in the subcutaneous layer Percentage of wound debrided: 100 Instrument Used: 3mm curette Tissue Removed: Slough and devitalized tissue Severity: Fat Layer Exposed Amount of bleeding with debridement: Mild Bleeding Controlled with: Pressure Patient tolerated procedure: Patient tolerated procedure well Assessment/Plan Active Problems Stage IV decubitus ulcer (Chronic) Decubitus ulcer of right buttock, stage 3 (Acute) 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 Right trochanteric pressure sore, Stage IV, with extension to the hip joint. 2. Right hip joint infection secondary to the pressure sore. 3. Osteomyelitis. 4. MRSA. 5. MDR Burkholderia cepacia. 6. History of Pseudomonas urinary infections. 7. History of Pseudomonas wound infections. 8. Paraplegia. 9. Spina bifida.. Plan: New right upper buttock ulcer possibly from increased moisture. Debridement done as documented above, procedure was well tolerated. He is coming to the wound center for interim wound care prior to surgery. They are unable to follow-up with the wound center at [facility]. Plan is for initiila surgey in about 2 months. Due to concerns with wound Vac, will DC. Switch to aquacel extra/ Kerracel to both with keramax care over ischial ulcer and adaptic over right upper buttock. Change twice daily due to increased dranaige. Continue increased protein intake/nutritional support to optimize patient for surgery. Continue offloading. They were advised to call with any questions or concerns. Follow-up in 2 weeks. This note was generated with [employer] (formerly [employer]) dictation software. It may contain incorrect words, spelling, and punctuation that were not noted in checking the note before signing.
[2019-03-06 10:39] VITALS: BP 105/66; PULSE 110; RESP 18; TEMP 37.2; BMI 13.4
--- NOTE | 2019-03-06 11:12 | PCM.WC.PN ---
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 History of Wound: Marcos is well-known to me and has received care at the wound center for over a year. He was last seen here over a month ago at which time he was referred for further surgical management of his chronic right pelvic region osteomyelitis. He was seen at [facility] and plan is for extensive surgical procedure. Prior to that due to significant malnutrition he had a G-tube placed and also had a colostomy placed. Recently discharged from [facility] in initial pelvic surgery/amputation is scheduled for 2 months. For now, he continues to apply wound VAC to his right buttock decubitus ulcer. Drainage is said to have improved since the colostomy. He denies chills, fever or feeling of unwell at this time. Progress of Wound: New/ additional ulcer over the right buttock/lumbar area. Over all, appears to draining less. Nutrition has also improved. - Physical Exam Vital Signs Temp Pulse Resp BP 98.9 F 110 H 18 105/66 03/06/19 10:39 03/06/19 10:39 03/06/19 10:39 03/06/19 10:39 General: Alert, Oriented x3, Cooperative, No apparent distress HEENT: Atraumatic, Normocephalic Oral: Moist Mucosa Neck: Supple Lungs: Normal air movement Extremities: No cyanosis Skin: Ulcer/ Wound Wound Measurements and Assessment WC - Nurse 1 - General Ulcer Measurement Start: 02/20/19 10:12 Freq: Status: Active Protocol: Activity Type Activity Date Activity User E-Sign Co-Sign Detail Recorded Client Recorded Date Recorded By Document 03/06/19 10:39 RB [id number] 03/06/19 10:42 RB 03/06/19 10:39 Wound Center Nurse 1 [Ulcer Assessment] #8 Right Lower Lumbar cluster -Combined with other wound No -Current Size (cm) - Length 1.3 -Current Size (cm) - Width 2 -Current Size (cm) - Depth 0.3 -Total Square Cm 2.6 -Tunneling No -Undermining/Tunneling No -Circular Undermining No -Exudate Amt Medium -Exudate Type Serosanguineous -Wound Margin Thickened & Rolled Under -Granulation Amt Medium (34-66%) -Granulation Quality [place] -Slough/Fibrin Yes -Necrosis Amt Small (1-33%) -Necrotic Tissue Type Adherent Slough -Structure Exposed N/A -Texture (Ida-wound Skin Appearance) Assessed -Moisture (Ida-wound Skin Appearance Assessed ) Maceration -Color (Ida-wound Skin Appearance) Assessed -Temperature (Ida-wound Skin No Abnormality Appearance) (Pt Warm) -Tenderness on Palpation (Ida-wound No Skin Appearance) -Ulcer Cleansing Wound Cleanser -Foul Odor after Cleansing No 7. R ischium -Combined with other wound No -Current Size (cm) - Length 4 -Current Size (cm) - Width 5.3 -Current Size (cm) - Depth 2.5 -Total Square Cm 21.2 -Tunneling No -Undermining/Tunneling No -Circular Undermining No -Exudate Amt Small -Exudate Type Serosanguineous -Wound Margin Thickened & Rolled Under -Granulation Amt Medium (34-66%) -Granulation Quality [place] -Slough/Fibrin Yes -Necrosis Amt Small (1-33%) -Necrotic Tissue Type Adherent Slough -Structure Exposed N/A -Texture (Ida-wound Skin Appearance) Assessed -Moisture (Ida-wound Skin Appearance Maceration ) -Color (Ida-wound Skin Appearance) Assessed -Temperature (Ida-wound Skin No Abnormality Appearance) (Pt Warm) -Tenderness on Palpation (Ida-wound No Skin Appearance) -Ulcer Cleansing Wound Cleanser -Foul Odor after Cleansing No WC - Nurse 2 - General Ulcer CM Notes Start: 02/20/19 10:12 Freq: Status: Active Protocol: Activity Type Activity Date Activity User E-Sign Co-Sign Detail Recorded Client Recorded Date Recorded By Document 03/06/19 10:51 MW [id number] 03/06/19 10:57 MW 03/06/19 10:51 Wound Center Nurse 2 [Procedure/Treatment] #8 Right Lower Lumbar cluster -Time 10:52 -Correct Patient Yes -Correct Side, Site, Position Yes -Correct Procedure Yes -Procedure Performed Yes -Type of Procedure Debridement -Clinical Debridement Subcutaneous -Post Debridement Size (cm) - Length 6.0 -Post Debridement Size (cm) - Width 1.0 -Post Debridement Size (cm) - Depth 0.1 -Total Square Cm 6.00 -Wound/Ulcer Outcome Not Healed -Ulcer Cleansing Rinsed/ Irrigated with Saline -Foul Odor after Cleansing No -Bioengineered Tissue No -Bleeding Controlled with Pressure -Offloading No -Treatment Response Procedure Tolerated Well 7. R ischium -Time 10:52 -Correct Patient Yes -Correct Side, Site, Position Yes -Correct Procedure Yes -Procedure Performed Yes -Type of Procedure Debridement -Clinical Debridement Subcutaneous -Post Debridement Size (cm) - Length 5.6 -Post Debridement Size (cm) - Width 3.0 -Post Debridement Size (cm) - Depth 4.0 -Total Square Cm 16.80 -Wound/Ulcer Outcome Not Healed -Ulcer Cleansing Rinsed/ Irrigated with Saline -Foul Odor after Cleansing No -Bioengineered Tissue No -Bleeding Controlled with Pressure -Offloading No -Treatment Response Procedure Tolerated Well [See Physician Procedure note for Specifics] Pain Scale: 0-10 Numeric [Pain] -Is Patient Pain Free? Yes Neurological: Cranial nerves II-XII grossly intact Psych/Mental Status: Normal Affect Debridement Note Post-Debridement Measurements/Treatment WC - Nurse 2 - General Ulcer CM Notes Start: 02/20/19 10:12 Freq: Status: Active Protocol: Activity Type Activity Date Activity User E-Sign Co-Sign Detail Recorded Client Recorded Date Recorded By Document 02/20/19 10:39 MW [id number] 02/20/19 10:49 MW Document 03/06/19 10:51 MW [id number] 03/06/19 10:57 MW 02/20/19 03/06/19 10:39 10:51 Wound Center Nurse 2 #8 Right Lower Lumbar cluster -Time 10:45 10:52 -Correct Patient Yes Yes -Correct Side, Site, Position Yes Yes -Correct Procedure Yes Yes -Procedure Performed Yes Yes -Type of Procedure Debridement Debridement -Clinical Debridement Subcutaneous Subcutaneous -Post Debridement Size (cm) - Length 1.9 6.0 -Post Debridement Size (cm) - Width 1.6 1.0 -Post Debridement Size (cm) - Depth 0.2 0.1 -Total Square Cm 3.04 6.00 -Wound/Ulcer Outcome Not Healed Not Healed -Ulcer Cleansing Rinsed/ Rinsed/ Irrigated with Irrigated with Saline Saline -Foul Odor after Cleansing No No -Bioengineered Tissue No No -Bleeding Controlled with Pressure Pressure -Offloading No No -Treatment Response Procedure Procedure Tolerated Well Tolerated Well 7. R ischium -Time 10:43 10:52 -Correct Patient Yes Yes -Correct Side, Site, Position Yes Yes -Correct Procedure Yes Yes -Procedure Performed Yes Yes -Type of Procedure Debridement Debridement -Clinical Debridement Subcutaneous Subcutaneous -Post Debridement Size (cm) - Length 7.0 5.6 -Post Debridement Size (cm) - Width 4.0 3.0 -Post Debridement Size (cm) - Depth 4.5 4.0 -Total Square Cm 28.00 16.80 -Wound/Ulcer Outcome Not Healed Not Healed -Ulcer Cleansing Rinsed/ Rinsed/ Irrigated with Irrigated with Saline Saline -Foul Odor after Cleansing No No -Bioengineered Tissue No No -Bleeding Controlled with Pressure Pressure -Offloading No No -Treatment Response Procedure Procedure Tolerated Well Tolerated Well Pain Scale: 0-10 Numeric Is Patient Pain Free? Yes Yes Wound debrided: Right Ischium Wound Grade/Stage: Stage IV Type of Debridement: Excisional debridement Anesthesia Used: 4% Lidocaine Solution Depth: Down to and including healthy tissue, in the subcutaneous layer Percentage of wound debrided: 100 Instrument Used: 5mm curette Tissue Removed: slough and devitalized tissue Severity: Fat Layer Exposed Amount of bleeding with debridement: Mild Bleeding Controlled with: Pressure Patient tolerated procedure well - Additional Wound Wound debrided: Right upper buttock cluster Wound Grade/Stage: Stage III Type of Debridement: Excisional debridement Anesthesia Used: 4% Lidocaine Solution Depth: Down to and including healthy tissue, in the subcutaneous layer Percentage of wound debrided: 100 Instrument Used: 5mm curette Tissue Removed: Slough and devitalized tissue Severity: Fat Layer Exposed Amount of bleeding with debridement: Mild Bleeding Controlled with: Pressure Patient tolerated procedure: Patient tolerated procedure well Assessment/Plan Active Problems Stage IV decubitus ulcer (Chronic) Decubitus ulcer of right buttock, stage 3 (Acute) 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 Right trochanteric pressure sore, Stage IV, with extension to the hip joint. 2. Right hip joint infection secondary to the pressure sore. 3. Osteomyelitis. 4. MRSA. 5. MDR Burkholderia cepacia. 6. History of Pseudomonas urinary infections. 7. History of Pseudomonas wound infections. 8. Paraplegia. 9. Spina bifida.. Plan: New right upper buttock ulcer now clustered. Debridement done as documented above, procedure was well tolerated. He is coming to the wound center for interim wound care prior to surgery. They are unable to follow-up with the wound center at [facility]. Plan is for initial surgey in about 1 month. Continue aquacel extra/ Kerracel to both with keramax care over ischial ulcer and adaptic over right upper buttock. Now changing daily with kerramax care. Continue increased protein intake/nutritional support to optimize patient for surgery. Continue offloading. They were advised to call with any questions or concerns. Follow-up in 2 weeks. This note was generated with [employer] dictation software. It may contain incorrect words, spelling, and punctuation that were not noted in checking the note before signing.
--- NOTE | 2019-03-06 11:18 | PN.PCM_ITS ---
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 History of Wound: Marcos is well-known to me and has received care at the wound center for over a year. He was last seen here over a month ago at which time he was referred for further surgical management of his chronic right pelvic region osteomyelitis. He was seen at [facility] and plan is for extensive surgical procedure. Prior to that due to significant malnutrition he had a G-tube placed and also had a colostomy placed. Recently discharged from [facility] in initial pelvic surgery/amputation is scheduled for 2 months. For now, he continues to apply wound VAC to his right buttock decubitus ulcer. Drainage is said to have improved since the colostomy. He denies chills, fever or feeling of unwell at this time. Progress of Wound: New/ additional ulcer over the right buttock/lumbar area. Over all, appears to draining less. Nutrition has also improved. - Physical Exam Vital Signs Temp Pulse Resp BP 98.9 F 110 H 18 105/66 03/06/19 10:39 03/06/19 10:39 03/06/19 10:39 03/06/19 10:39 General: Alert, Oriented x3, Cooperative, No apparent distress HEENT: Atraumatic, Normocephalic Oral: Moist Mucosa Neck: Supple Lungs: Normal air movement Extremities: No cyanosis Skin: Ulcer/ Wound Wound Measurements and Assessment WC - Nurse 1 - General Ulcer Measurement Start: 02/20/19 10:12 Freq: Status: Active Protocol: Activity Type Activity Date Activity User E-Sign Co-Sign Detail Recorded Client Recorded Date Recorded By Document 03/06/19 10:39 RB [id number] 03/06/19 10:42 RB 03/06/19 10:39 Wound Center Nurse 1 [Ulcer Assessment] #8 Right Lower Lumbar cluster -Combined with other wound No -Current Size (cm) - Length 1.3 -Current Size (cm) - Width 2 -Current Size (cm) - Depth 0.3 -Total Square Cm 2.6 -Tunneling No -Undermining/Tunneling No -Circular Undermining No -Exudate Amt Medium -Exudate Type Serosanguineous -Wound Margin Thickened & Rolled Under -Granulation Amt Medium (34-66%) -Granulation Quality Carrier -Slough/Fibrin Yes -Necrosis Amt Small (1-33%) -Necrotic Tissue Type Adherent Slough -Structure Exposed N/A -Texture (Ida-wound Skin Appearance) Assessed -Moisture (Ida-wound Skin Appearance Assessed ) Maceration -Color (Ida-wound Skin Appearance) Assessed -Temperature (Ida-wound Skin No Abnormality Appearance) (Pt Warm) -Tenderness on Palpation (Ida-wound No Skin Appearance) -Ulcer Cleansing Wound Cleanser -Foul Odor after Cleansing No 7. R ischium -Combined with other wound No -Current Size (cm) - Length 4 -Current Size (cm) - Width 5.3 -Current Size (cm) - Depth 2.5 -Total Square Cm 21.2 -Tunneling No -Undermining/Tunneling No -Circular Undermining No -Exudate Amt Small -Exudate Type Serosanguineous -Wound Margin Thickened & Rolled Under -Granulation Amt Medium (34-66%) -Granulation Quality Carrier -Slough/Fibrin Yes -Necrosis Amt Small (1-33%) -Necrotic Tissue Type Adherent Slough -Structure Exposed N/A -Texture (Ida-wound Skin Appearance) Assessed -Moisture (Ida-wound Skin Appearance Maceration ) -Color (Ida-wound Skin Appearance) Assessed -Temperature (Ida-wound Skin No Abnormality Appearance) (Pt Warm) -Tenderness on Palpation (Ida-wound No Skin Appearance) -Ulcer Cleansing Wound Cleanser -Foul Odor after Cleansing No WC - Nurse 2 - General Ulcer CM Notes Start: 02/20/19 10:12 Freq: Status: Active Protocol: Activity Type Activity Date Activity User E-Sign Co-Sign Detail Recorded Client Recorded Date Recorded By Document 03/06/19 10:51 MW [id number] 03/06/19 10:57 MW 03/06/19 10:51 Wound Center Nurse 2 [Procedure/Treatment] #8 Right Lower Lumbar cluster -Time 10:52 -Correct Patient Yes -Correct Side, Site, Position Yes -Correct Procedure Yes -Procedure Performed Yes -Type of Procedure Debridement -Clinical Debridement Subcutaneous -Post Debridement Size (cm) - Length 6.0 -Post Debridement Size (cm) - Width 1.0 -Post Debridement Size (cm) - Depth 0.1 -Total Square Cm 6.00 -Wound/Ulcer Outcome Not Healed -Ulcer Cleansing Rinsed/ Irrigated with Saline -Foul Odor after Cleansing No -Bioengineered Tissue No -Bleeding Controlled with Pressure -Offloading No -Treatment Response Procedure Tolerated Well 7. R ischium -Time 10:52 -Correct Patient Yes -Correct Side, Site, Position Yes -Correct Procedure Yes -Procedure Performed Yes -Type of Procedure Debridement -Clinical Debridement Subcutaneous -Post Debridement Size (cm) - Length 5.6 -Post Debridement Size (cm) - Width 3.0 -Post Debridement Size (cm) - Depth 4.0 -Total Square Cm 16.80 -Wound/Ulcer Outcome Not Healed -Ulcer Cleansing Rinsed/ Irrigated with Saline -Foul Odor after Cleansing No -Bioengineered Tissue No -Bleeding Controlled with Pressure -Offloading No -Treatment Response Procedure Tolerated Well [See Physician Procedure note for Specifics] Pain Scale: 0-10 Numeric [Pain] -Is Patient Pain Free? Yes Neurological: Cranial nerves II-XII grossly intact Psych/Mental Status: Normal Affect Debridement Note Post-Debridement Measurements/Treatment WC - Nurse 2 - General Ulcer CM Notes Start: 02/20/19 10:12 Freq: Status: Active Protocol: Activity Type Activity Date Activity User E-Sign Co-Sign Detail Recorded Client Recorded Date Recorded By Document 02/20/19 10:39 MW [id number] 02/20/19 10:49 MW Document 03/06/19 10:51 MW [id number] 03/06/19 10:57 MW 02/20/19 03/06/19 10:39 10:51 Wound Center Nurse 2 #8 Right Lower Lumbar cluster -Time 10:45 10:52 -Correct Patient Yes Yes -Correct Side, Site, Position Yes Yes -Correct Procedure Yes Yes -Procedure Performed Yes Yes -Type of Procedure Debridement Debridement -Clinical Debridement Subcutaneous Subcutaneous -Post Debridement Size (cm) - Length 1.9 6.0 -Post Debridement Size (cm) - Width 1.6 1.0 -Post Debridement Size (cm) - Depth 0.2 0.1 -Total Square Cm 3.04 6.00 -Wound/Ulcer Outcome Not Healed Not Healed -Ulcer Cleansing Rinsed/ Rinsed/ Irrigated with Irrigated with Saline Saline -Foul Odor after Cleansing No No -Bioengineered Tissue No No -Bleeding Controlled with Pressure Pressure -Offloading No No -Treatment Response Procedure Procedure Tolerated Well Tolerated Well 7. R ischium -Time 10:43 10:52 -Correct Patient Yes Yes -Correct Side, Site, Position Yes Yes -Correct Procedure Yes Yes -Procedure Performed Yes Yes -Type of Procedure Debridement Debridement -Clinical Debridement Subcutaneous Subcutaneous -Post Debridement Size (cm) - Length 7.0 5.6 -Post Debridement Size (cm) - Width 4.0 3.0 -Post Debridement Size (cm) - Depth 4.5 4.0 -Total Square Cm 28.00 16.80 -Wound/Ulcer Outcome Not Healed Not Healed -Ulcer Cleansing Rinsed/ Rinsed/ Irrigated with Irrigated with Saline Saline -Foul Odor after Cleansing No No -Bioengineered Tissue No No -Bleeding Controlled with Pressure Pressure -Offloading No No -Treatment Response Procedure Procedure Tolerated Well Tolerated Well Pain Scale: 0-10 Numeric Is Patient Pain Free? Yes Yes Wound debrided: Right Ischium Wound Grade/Stage: Stage IV Type of Debridement: Excisional debridement Anesthesia Used: 4% Lidocaine Solution Depth: Down to and including healthy tissue, in the subcutaneous layer Percentage of wound debrided: 100 Instrument Used: 5mm curette Tissue Removed: slough and devitalized tissue Severity: Fat Layer Exposed Amount of bleeding with debridement: Mild Bleeding Controlled with: Pressure Patient tolerated procedure well - Additional Wound Wound debrided: Right upper buttock cluster Wound Grade/Stage: Stage III Type of Debridement: Excisional debridement Anesthesia Used: 4% Lidocaine Solution Depth: Down to and including healthy tissue, in the subcutaneous layer Percentage of wound debrided: 100 Instrument Used: 5mm curette Tissue Removed: Slough and devitalized tissue Severity: Fat Layer Exposed Amount of bleeding with debridement: Mild Bleeding Controlled with: Pressure Patient tolerated procedure: Patient tolerated procedure well Assessment/Plan Active Problems Stage IV decubitus ulcer (Chronic) Decubitus ulcer of right buttock, stage 3 (Acute) 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 Right trochanteric pressure sore, Stage IV, with extension to the hip joint. 2. Right hip joint infection secondary to the pressure sore. 3. Osteomyelitis. 4. MRSA. 5. MDR Burkholderia cepacia. 6. History of Pseudomonas urinary infections. 7. History of Pseudomonas wound infections. 8. Paraplegia. 9. Spina bifida.. Plan: New right upper buttock ulcer now clustered. Debridement done as documented above, procedure was well tolerated. He is coming to the wound center for interim wound care prior to surgery. They are unable to follow-up with the wound center at [facility]. Plan is for initial surgey in about 1 month. Continue aquacel extra/ Kerracel to both with keramax care over ischial ulcer and adaptic over right upper buttock. Now changing daily with kerramax care. Continue increased protein intake/nutritional support to optimize patient for surgery. Continue offloading. They were advised to call with any questions or concerns. Follow-up in 2 weeks. This note was generated with [employer] dictation software. It may contain incorrect words, spelling, and punctuation that were not noted in checking the note before signing.
[2019-03-20 10:48] VITALS: BP 117/78; PULSE 112; RESP 18; TEMP 37.2; BMI 13.4
--- NOTE | 2019-03-20 11:42 | PCM.WC.PN ---
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 History of Wound: Marcos is well-known to me and has received care at the wound center for over a year. He was last seen here over a month ago at which time he was referred for further surgical management of his chronic right pelvic region osteomyelitis. He was seen at [facility] and plan is for extensive surgical procedure. Prior to that due to significant malnutrition he had a G-tube placed and also had a colostomy placed. Recently discharged from [facility] in initial pelvic surgery/amputation is scheduled for 2 months. For now, he continues to apply wound VAC to his right buttock decubitus ulcer. Drainage is said to have improved since the colostomy. He denies chills, fever or feeling of unwell at this time. Progress of Wound: Stable over all. No new concerns at this time. No significant change in lumbar ulcer. - Physical Exam Vital Signs Temp Pulse Resp BP 98.9 F 112 H 18 117/78 03/20/19 10:48 03/20/19 10:48 03/20/19 10:48 03/20/19 10:48 General: Alert, Oriented x3, Cooperative, No apparent distress HEENT: Atraumatic, Normocephalic Oral: Moist Mucosa Neck: Supple Lungs: Normal air movement Extremities: No cyanosis Skin: Ulcer/ Wound Wound Measurements and Assessment WC - Nurse 1 - General Ulcer Measurement Start: 02/20/19 10:12 Freq: Status: Active Protocol: Activity Type Activity Date Activity User E-Sign Co-Sign Detail Recorded Client Recorded Date Recorded By Document 03/20/19 10:48 RB [id number] 03/20/19 10:53 RB 03/20/19 10:48 Wound Center Nurse 1 [Ulcer Assessment] #8 Right Lower Lumbar cluster -Combined with other wound No -Current Size (cm) - Length 1 -Current Size (cm) - Width 5.7 -Current Size (cm) - Depth 0.2 -Total Square Cm 5.7 -Tunneling No -Undermining/Tunneling No -Circular Undermining No -Exudate Amt Medium -Exudate Type Serosanguineous -Wound Margin Fibrotic Scar, Thickened Scar -Granulation Amt Medium (34-66%) -Granulation Quality Rose -Slough/Fibrin Yes -Necrosis Amt Medium (34-66%) -Necrotic Tissue Type Adherent Slough -Structure Exposed N/A -Texture (Ida-wound Skin Appearance) Assessed Scarring -Moisture (Ida-wound Skin Appearance Assessed ) -Color (Ida-wound Skin Appearance) Assessed -Temperature (Ida-wound Skin No Abnormality Appearance) (Pt Warm) -Tenderness on Palpation (Ida-wound No Skin Appearance) -Ulcer Cleansing Wound Cleanser -Foul Odor after Cleansing No 7. R ischium -Current Size (cm) - Length 4.7 -Current Size (cm) - Width 4.5 -Current Size (cm) - Depth 4.2 -Total Square Cm 21.15 -Tunneling No -Undermining/Tunneling No -Circular Undermining No -Exudate Amt Large -Exudate Type Serosanguineous -Wound Margin Fibrotic Scar, Thickened Scar -Granulation Amt Medium (34-66%) -Granulation Quality Rose -Slough/Fibrin Yes -Necrosis Amt None Present (0 %) -Necrotic Tissue Type Adherent Slough -Structure Exposed N/A -Texture (Ida-wound Skin Appearance) Assessed -Moisture (Ida-wound Skin Appearance Assessed ) -Color (Ida-wound Skin Appearance) Assessed -Temperature (Ida-wound Skin No Abnormality Appearance) (Pt Warm) -Tenderness on Palpation (Ida-wound No Skin Appearance) -Ulcer Cleansing Wound Cleanser -Foul Odor after Cleansing No WC - Nurse 2 - General Ulcer CM Notes Start: 02/20/19 10:12 Freq: Status: Active Protocol: Activity Type Activity Date Activity User E-Sign Co-Sign Detail Recorded Client Recorded Date Recorded By Document 03/20/19 11:00 MW [id number] 03/20/19 11:09 MW 03/20/19 11:00 Wound Center Nurse 2 [Procedure/Treatment] #8 Right Lower Lumbar cluster -Time 11:02 -Correct Patient Yes -Correct Side, Site, Position Yes -Correct Procedure Yes -Procedure Performed Yes -Type of Procedure Debridement -Clinical Debridement Subcutaneous -Post Debridement Size (cm) - Length 1.0 -Post Debridement Size (cm) - Width 6.0 -Post Debridement Size (cm) - Depth 0.1 -Total Square Cm 6.00 -Wound/Ulcer Outcome Not Healed -Ulcer Cleansing Rinsed/ Irrigated with Saline -Foul Odor after Cleansing No -Bioengineered Tissue No -Bleeding Controlled with Pressure -Offloading No -Treatment Response Procedure Tolerated Well 7. R ischium -Time 11:02 -Correct Patient Yes -Correct Side, Site, Position Yes -Correct Procedure Yes -Procedure Performed Yes -Type of Procedure Debridement -Clinical Debridement Subcutaneous -Post Debridement Size (cm) - Length 3.0 -Post Debridement Size (cm) - Width 5.0 -Post Debridement Size (cm) - Depth 4.0 -Total Square Cm 15.00 -Wound/Ulcer Outcome Not Healed -Ulcer Cleansing Rinsed/ Irrigated with Saline -Foul Odor after Cleansing No -Bioengineered Tissue No -Bleeding Controlled with Pressure -Offloading No -Treatment Response Procedure Tolerated Well [See Physician Procedure note for Specifics] Pain Scale: 0-10 Numeric [Pain] -Is Patient Pain Free? Yes Neurological: Cranial nerves II-XII grossly intact Psych/Mental Status: Normal Affect Debridement Note Post-Debridement Measurements/Treatment WC - Nurse 2 - General Ulcer CM Notes Start: 02/20/19 10:12 Freq: Status: Active Protocol: Activity Type Activity Date Activity User E-Sign Co-Sign Detail Recorded Client Recorded Date Recorded By Document 02/20/19 10:39 MW [id number] 02/20/19 10:49 MW Document 03/06/19 10:51 MW [id number] 03/06/19 10:57 MW Document 03/20/19 11:00 MW [id number] 03/20/19 11:09 MW 02/20/19 03/06/19 03/20/19 10:39 10:51 11:00 Wound Center Nurse 2 #8 Right Lower Lumbar cluster -Time 10:45 10:52 11:02 -Correct Patient Yes Yes Yes -Correct Side, Site, Position Yes Yes Yes -Correct Procedure Yes Yes Yes -Procedure Performed Yes Yes Yes -Type of Procedure Debridement Debridement Debridement -Clinical Debridement Subcutaneous Subcutaneous Subcutaneous -Post Debridement Size (cm) - Length 1.9 6.0 1.0 -Post Debridement Size (cm) - Width 1.6 1.0 6.0 -Post Debridement Size (cm) - Depth 0.2 0.1 0.1 -Total Square Cm 3.04 6.00 6.00 -Wound/Ulcer Outcome Not Healed Not Healed Not Healed -Ulcer Cleansing Rinsed/ Rinsed/ Rinsed/ Irrigated with Irrigated with Irrigated with Saline Saline Saline -Foul Odor after Cleansing No No No -Bioengineered Tissue No No No -Bleeding Controlled with Pressure Pressure Pressure -Offloading No No No -Treatment Response Procedure Procedure Procedure Tolerated Well Tolerated Well Tolerated Well 7. R ischium -Time 10:43 10:52 11:02 -Correct Patient Yes Yes Yes -Correct Side, Site, Position Yes Yes Yes -Correct Procedure Yes Yes Yes -Procedure Performed Yes Yes Yes -Type of Procedure Debridement Debridement Debridement -Clinical Debridement Subcutaneous Subcutaneous Subcutaneous -Post Debridement Size (cm) - Length 7.0 5.6 3.0 -Post Debridement Size (cm) - Width 4.0 3.0 5.0 -Post Debridement Size (cm) - Depth 4.5 4.0 4.0 -Total Square Cm 28.00 16.80 15.00 -Wound/Ulcer Outcome Not Healed Not Healed Not Healed -Ulcer Cleansing Rinsed/ Rinsed/ Rinsed/ Irrigated with Irrigated with Irrigated with Saline Saline Saline -Foul Odor after Cleansing No No No -Bioengineered Tissue No No No -Bleeding Controlled with Pressure Pressure Pressure -Offloading No No No -Treatment Response Procedure Procedure Procedure Tolerated Well Tolerated Well Tolerated Well Pain Scale: 0-10 Numeric Is Patient Pain Free? Yes Yes Yes Wound debrided: Right Ischium Wound Grade/Stage: Stage IV Type of Debridement: Excisional debridement Anesthesia Used: 4% Lidocaine Solution Depth: Down to and including healthy tissue, in the subcutaneous layer Percentage of wound debrided: 100 Instrument Used: 5mm curette Tissue Removed: Slough and devitalized tissue Severity: Fat Layer Exposed Amount of bleeding with debridement: Mild Bleeding Controlled with: Pressure Patient tolerated procedure well - Additional Wound Wound debrided: Right upper buttock cluster/lumbar area Wound Grade/Stage: Stage III Type of Debridement: Excisional debridement Anesthesia Used: 4% Lidocaine Solution Depth: Down to and including healthy tissue, in the subcutaneous layer Percentage of wound debrided: 100 Instrument Used: 5mm curette Tissue Removed: Slough abd devitalized tissue Severity: Fat Layer Exposed Amount of bleeding with debridement: Mild Bleeding Controlled with: Pressure, Silver Nitrate Patient tolerated procedure: Patient tolerated procedure well Assessment/Plan Active Problems Stage IV decubitus ulcer (Chronic) Decubitus ulcer of right buttock, stage 3 (Acute) 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 Right trochanteric pressure sore, Stage IV, with extension to the hip joint. 2. Right hip joint infection secondary to the pressure sore. 3. Osteomyelitis. 4. MRSA. 5. MDR Burkholderia cepacia. 6. History of Pseudomonas urinary infections. 7. History of Pseudomonas wound infections. 8. Paraplegia. 9. Spina bifida.. Plan: New right upper buttock ulcer with no significant change. Debridement done as documented above, procedure was well tolerated. He is coming to the wound center for interim wound care prior to surgery. They are unable to follow-up with the wound center at [facility]. Plan is for initial surgey in on the 16 of May. Continue aquacel extra/ Kerracel to right Ischium with keramax care over ischial ulcer. Moistened pomogram to right upper buttock cluster. Change daily with kerramax care. Continue increased protein intake/nutritional support to optimize patient for surgery. Continue offloading. They were advised to call with any questions or concerns. Follow-up in 2 weeks for a courtesy visit with Alondra Menjivar NP and in 4 weeks with me. This note was generated with [employer] dictation software. It may contain incorrect words, spelling, and punctuation that were not noted in checking the note before signing.
--- NOTE | 2019-03-20 11:48 | PN.PCM_ITS ---
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 History of Wound: Marcos is well-known to me and has received care at the wound center for over a year. He was last seen here over a month ago at which time he was referred for further surgical management of his chronic right pelvic region osteomyelitis. He was seen at [facility] and plan is for extensive surgical procedure. Prior to that due to significant malnutrition he had a G-tube placed and also had a colostomy placed. Recently discharged from [facility] in initial pelvic surgery/amputation is scheduled for 2 months. For now, he continues to apply wound VAC to his right buttock decubitus ulcer. Drainage is said to have improved since the colostomy. He denies chills, fever or feeling of unwell at this time. Progress of Wound: Stable over all. No new concerns at this time. No significant change in lumbar ulcer. - Physical Exam Vital Signs Temp Pulse Resp BP 98.9 F 112 H 18 117/78 03/20/19 10:48 03/20/19 10:48 03/20/19 10:48 03/20/19 10:48 General: Alert, Oriented x3, Cooperative, No apparent distress HEENT: Atraumatic, Normocephalic Oral: Moist Mucosa Neck: Supple Lungs: Normal air movement Extremities: No cyanosis Skin: Ulcer/ Wound Wound Measurements and Assessment WC - Nurse 1 - General Ulcer Measurement Start: 02/20/19 10:12 Freq: Status: Active Protocol: Activity Type Activity Date Activity User E-Sign Co-Sign Detail Recorded Client Recorded Date Recorded By Document 03/20/19 10:48 RB [id number] 03/20/19 10:53 RB 03/20/19 10:48 Wound Center Nurse 1 [Ulcer Assessment] #8 Right Lower Lumbar cluster -Combined with other wound No -Current Size (cm) - Length 1 -Current Size (cm) - Width 5.7 -Current Size (cm) - Depth 0.2 -Total Square Cm 5.7 -Tunneling No -Undermining/Tunneling No -Circular Undermining No -Exudate Amt Medium -Exudate Type Serosanguineous -Wound Margin Fibrotic Scar, Thickened Scar -Granulation Amt Medium (34-66%) -Granulation Quality Bunker -Slough/Fibrin Yes -Necrosis Amt Medium (34-66%) -Necrotic Tissue Type Adherent Slough -Structure Exposed N/A -Texture (Ida-wound Skin Appearance) Assessed Scarring -Moisture (Ida-wound Skin Appearance Assessed ) -Color (Ida-wound Skin Appearance) Assessed -Temperature (Ida-wound Skin No Abnormality Appearance) (Pt Warm) -Tenderness on Palpation (Ida-wound No Skin Appearance) -Ulcer Cleansing Wound Cleanser -Foul Odor after Cleansing No 7. R ischium -Current Size (cm) - Length 4.7 -Current Size (cm) - Width 4.5 -Current Size (cm) - Depth 4.2 -Total Square Cm 21.15 -Tunneling No -Undermining/Tunneling No -Circular Undermining No -Exudate Amt Large -Exudate Type Serosanguineous -Wound Margin Fibrotic Scar, Thickened Scar -Granulation Amt Medium (34-66%) -Granulation Quality Bunker -Slough/Fibrin Yes -Necrosis Amt None Present (0 %) -Necrotic Tissue Type Adherent Slough -Structure Exposed N/A -Texture (Ida-wound Skin Appearance) Assessed -Moisture (Ida-wound Skin Appearance Assessed ) -Color (Ida-wound Skin Appearance) Assessed -Temperature (Ida-wound Skin No Abnormality Appearance) (Pt Warm) -Tenderness on Palpation (Ida-wound No Skin Appearance) -Ulcer Cleansing Wound Cleanser -Foul Odor after Cleansing No WC - Nurse 2 - General Ulcer CM Notes Start: 02/20/19 10:12 Freq: Status: Active Protocol: Activity Type Activity Date Activity User E-Sign Co-Sign Detail Recorded Client Recorded Date Recorded By Document 03/20/19 11:00 MW [id number] 03/20/19 11:09 MW 03/20/19 11:00 Wound Center Nurse 2 [Procedure/Treatment] #8 Right Lower Lumbar cluster -Time 11:02 -Correct Patient Yes -Correct Side, Site, Position Yes -Correct Procedure Yes -Procedure Performed Yes -Type of Procedure Debridement -Clinical Debridement Subcutaneous -Post Debridement Size (cm) - Length 1.0 -Post Debridement Size (cm) - Width 6.0 -Post Debridement Size (cm) - Depth 0.1 -Total Square Cm 6.00 -Wound/Ulcer Outcome Not Healed -Ulcer Cleansing Rinsed/ Irrigated with Saline -Foul Odor after Cleansing No -Bioengineered Tissue No -Bleeding Controlled with Pressure -Offloading No -Treatment Response Procedure Tolerated Well 7. R ischium -Time 11:02 -Correct Patient Yes -Correct Side, Site, Position Yes -Correct Procedure Yes -Procedure Performed Yes -Type of Procedure Debridement -Clinical Debridement Subcutaneous -Post Debridement Size (cm) - Length 3.0 -Post Debridement Size (cm) - Width 5.0 -Post Debridement Size (cm) - Depth 4.0 -Total Square Cm 15.00 -Wound/Ulcer Outcome Not Healed -Ulcer Cleansing Rinsed/ Irrigated with Saline -Foul Odor after Cleansing No -Bioengineered Tissue No -Bleeding Controlled with Pressure -Offloading No -Treatment Response Procedure Tolerated Well [See Physician Procedure note for Specifics] Pain Scale: 0-10 Numeric [Pain] -Is Patient Pain Free? Yes Neurological: Cranial nerves II-XII grossly intact Psych/Mental Status: Normal Affect Debridement Note Post-Debridement Measurements/Treatment WC - Nurse 2 - General Ulcer CM Notes Start: 02/20/19 10:12 Freq: Status: Active Protocol: Activity Type Activity Date Activity User E-Sign Co-Sign Detail Recorded Client Recorded Date Recorded By Document 02/20/19 10:39 MW [id number] 02/20/19 10:49 MW Document 03/06/19 10:51 MW [id number] 03/06/19 10:57 MW Document 03/20/19 11:00 MW [id number] 03/20/19 11:09 MW 02/20/19 03/06/19 03/20/19 10:39 10:51 11:00 Wound Center Nurse 2 #8 Right Lower Lumbar cluster -Time 10:45 10:52 11:02 -Correct Patient Yes Yes Yes -Correct Side, Site, Position Yes Yes Yes -Correct Procedure Yes Yes Yes -Procedure Performed Yes Yes Yes -Type of Procedure Debridement Debridement Debridement -Clinical Debridement Subcutaneous Subcutaneous Subcutaneous -Post Debridement Size (cm) - Length 1.9 6.0 1.0 -Post Debridement Size (cm) - Width 1.6 1.0 6.0 -Post Debridement Size (cm) - Depth 0.2 0.1 0.1 -Total Square Cm 3.04 6.00 6.00 -Wound/Ulcer Outcome Not Healed Not Healed Not Healed -Ulcer Cleansing Rinsed/ Rinsed/ Rinsed/ Irrigated with Irrigated with Irrigated with Saline Saline Saline -Foul Odor after Cleansing No No No -Bioengineered Tissue No No No -Bleeding Controlled with Pressure Pressure Pressure -Offloading No No No -Treatment Response Procedure Procedure Procedure Tolerated Well Tolerated Well Tolerated Well 7. R ischium -Time 10:43 10:52 11:02 -Correct Patient Yes Yes Yes -Correct Side, Site, Position Yes Yes Yes -Correct Procedure Yes Yes Yes -Procedure Performed Yes Yes Yes -Type of Procedure Debridement Debridement Debridement -Clinical Debridement Subcutaneous Subcutaneous Subcutaneous -Post Debridement Size (cm) - Length 7.0 5.6 3.0 -Post Debridement Size (cm) - Width 4.0 3.0 5.0 -Post Debridement Size (cm) - Depth 4.5 4.0 4.0 -Total Square Cm 28.00 16.80 15.00 -Wound/Ulcer Outcome Not Healed Not Healed Not Healed -Ulcer Cleansing Rinsed/ Rinsed/ Rinsed/ Irrigated with Irrigated with Irrigated with Saline Saline Saline -Foul Odor after Cleansing No No No -Bioengineered Tissue No No No -Bleeding Controlled with Pressure Pressure Pressure -Offloading No No No -Treatment Response Procedure Procedure Procedure Tolerated Well Tolerated Well Tolerated Well Pain Scale: 0-10 Numeric Is Patient Pain Free? Yes Yes Yes Wound debrided: Right Ischium Wound Grade/Stage: Stage IV Type of Debridement: Excisional debridement Anesthesia Used: 4% Lidocaine Solution Depth: Down to and including healthy tissue, in the subcutaneous layer Percentage of wound debrided: 100 Instrument Used: 5mm curette Tissue Removed: Slough and devitalized tissue Severity: Fat Layer Exposed Amount of bleeding with debridement: Mild Bleeding Controlled with: Pressure Patient tolerated procedure well - Additional Wound Wound debrided: Right upper buttock cluster/lumbar area Wound Grade/Stage: Stage III Type of Debridement: Excisional debridement Anesthesia Used: 4% Lidocaine Solution Depth: Down to and including healthy tissue, in the subcutaneous layer Percentage of wound debrided: 100 Instrument Used: 5mm curette Tissue Removed: Slough abd devitalized tissue Severity: Fat Layer Exposed Amount of bleeding with debridement: Mild Bleeding Controlled with: Pressure, Silver Nitrate Patient tolerated procedure: Patient tolerated procedure well Assessment/Plan Active Problems Stage IV decubitus ulcer (Chronic) Decubitus ulcer of right buttock, stage 3 (Acute) 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 Right trochanteric pressure sore, Stage IV, with extension to the hip joint. 2. Right hip joint infection secondary to the pressure sore. 3. Osteomyelitis. 4. MRSA. 5. MDR Burkholderia cepacia. 6. History of Pseudomonas urinary infections. 7. History of Pseudomonas wound infections. 8. Paraplegia. 9. Spina bifida.. Plan: New right upper buttock ulcer with no significant change. Debridement done as documented above, procedure was well tolerated. He is coming to the wound center for interim wound care prior to surgery. They are unable to follow-up with the wound center at [facility]. Plan is for initial surgey in on the 16 of May. Continue aquacel extra/ Kerracel to right Ischium with keramax care over ischial ulcer. Moistened pomogram to right upper buttock cluster. Change daily with kerramax care. Continue increased protein intake/nutritional support to optimize patient for surgery. Continue offloading. They were advised to call with any questions or concerns. Follow-up in 2 weeks for a courtesy visit with Alondra Menjivar NP and in 4 weeks with me. This note was generated with [employer] dictation software. It may contain incorrect words, spelling, and punctuation that were not noted in checking the note before signing.
== END 2019-03-22 23:59 ==
LOC: WC 10:00
PROVIDERS: Family Provider Family Medicine; PCP Family Medicine; Referring Provider Internal Medicine; Visit Provider Internal Medicine
DX: L89.214 Pressure ulcer of right hip, stage 4 (principal); Q05.9 Spina bifida, unspecified; G82.20 Paraplegia, unspecified; M86.659 Other chronic osteomyelitis, unspecified thigh; Z93.3 Colostomy status; Z86.14 Personal history of Methicillin resistant Staphylococcus aureus infection
CPT/HCPCS: 11042; 11045

== ENCOUNTER 2019-04-02 10:21 | Outpatient (RCR) | payer OTHER, MEDICAID, SELFPAY ==
[2019-03-23 00:26] VITALS: BP 117/78; PULSE 112; RESP 18; TEMP 37.2
[2019-04-02 10:04] VITALS: BP 127/76; PULSE 126; RESP 16; TEMP 37.2; BMI 13.4
--- NOTE | 2019-04-02 10:57 | PCM.WC.HP ---
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 Status: Chronic Current Visit: Yes Code(s): L89.214 - Pressure ulcer of right hip, stage 4 Comment: extending from the right ischial area (5) History of osteomyelitis Status: Chronic Current Visit: Yes Code(s): Z87.39 - Personal history of other diseases of the musculoskeletal system and connective tissue Comment: right sacral area (6) Spina bifida Status: Chronic Current Visit: Yes Qualifiers: Spinal region: lumbar Code(s): Q05.9 - Spina bifida, unspecified (7) Chronic osteomyelitis, pelvic region and thigh Status: Chronic Current Visit: Yes Qualifiers: Laterality: right Qualified Code(s): M86.651 - Other chronic osteomyelitis, right thigh Code(s): M86.659 - Other chronic osteomyelitis, unspecified thigh Comment: right sacral area (8) Malnutrition compromising bodily function Status: Chronic Current Visit: Yes Code(s): E46 - Unspecified protein-calorie malnutrition (9) Failure to thrive Status: Chronic Current Visit: Yes Qualifiers: Failure to thrive age range: in adult Qualified Code(s): R62.7 - Adult failure to thrive History of Present Illness Chief Complaint: Right buttock ulcer, Stage IV. History of Wound: Marcos is well-known to me and has received care at the wound center for over a year. He was last seen here over a month ago at which time he was referred for further surgical management of his chronic right pelvic region osteomyelitis. He was seen at [facility] and plan is for extensive surgical procedure. Prior to that due to significant malnutrition he had a G-tube placed and also had a colostomy placed. Recently discharged from [facility] in initial pelvic surgery/amputation is scheduled for 2 months. For now, he continues to apply wound VAC to his right buttock decubitus ulcer. Drainage is said to have improved since the colostomy. He denies chills, fever or feeling of unwell at this time. 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 Allergies/Adverse Reactions: Allergies latex Allergy (Verified 10/25/18 15:25) Unknown unsure as charted levofloxacin [Levofloxacin] Allergy (Verified 10/25/18 15:25) Rash sulfamethoxazole [From Bactrim] Allergy (Verified 10/25/18 15:25) Rash trimethoprim [From Bactrim] Allergy (Verified 10/25/18 15:25) Rash Home Medications: Ambulatory Orders Medication Instructions Recorded Polyethylene Glycol 3350 [Miralax] 17 gm PO DAILY #30 05/06/14 Argin/Glut/Cahmb/Collag/Mv-Min 1 each PO BID MDD SUPPLEMENT 10/25/18 [Mark Packet] Caloric Supplement [Benecalorie] 7.5 kcal PO DAILY 10/25/18 Cyproheptadine HCl 4 mg PO DAILY 10/25/18 Vitamin E 400 units PO DAILY 10/25/18 - Family History Maternal - - Mother with a history of borderline hypertension. Paternal - - Father with a history of diabetes. Smoking Status: Never smoker - Physical Exam Vital Signs Temp Pulse Resp BP 99 F 126 H 16 127/76 H 04/02/19 10:04 04/02/19 10:04 04/02/19 10:04 04/02/19 10:04 General: Alert, Oriented x3, Cooperative, No apparent distress, - - Poorly nourished; multiple contracted joints HEENT: Atraumatic, PERRLA, EOMI, Normocephalic Oral: Moist Mucosa Neck: No JVD Lungs: Normal air movement Abdomen: Non-Distended, - - Colostomy and gastrostomy feeding tube are noted Extremities: No clubbing, No cyanosis, No edema, - - Multiple contractures are noted Skin: - - Ulcerations are noted in the lumbar area and the right ischium. The right ischial ulceration appears to be stage IV, in which osteomyelitis is present. There is a moderate amount of bioburden involving each. Dimensions are documented elsewhere. There is no obvious sign of infection or cellulitis. Wound Measurements and Assessment WC - Nurse 1 - General Ulcer Measurement Start: 04/02/19 10:04 Freq: Status: Active Protocol: Activity Type Activity Date Activity User E-Sign Co-Sign Detail Recorded Client Recorded Date Recorded By Document 04/02/19 10:04 [facility] [id number] 04/02/19 10:11 [facility] 04/02/19 10:04 Wound Center Nurse 1 [Ulcer Assessment] #8 Right Lower Lumbar cluster -Combined with other wound No -Current Size (cm) - Length 1 -Current Size (cm) - Width 5.8 -Current Size (cm) - Depth 0.3 -Total Square Cm 5.8 -Photo Taken No -Epithelialization None Present -Tunneling No -Undermining/Tunneling No -Circular Undermining No -Exudate Amt Medium -Exudate Type Serosanguineous -Wound Margin Flat & Intact -Granulation Amt Small (1-33%) -Granulation Quality Calcium -Slough/Fibrin Yes -Necrosis Amt Large (67-100%) -Necrotic Tissue Type Adherent Slough -Texture (Ida-wound Skin Appearance) Assessed Scarring -Moisture (Ida-wound Skin Appearance Assessed ) Maceration -Color (Ida-wound Skin Appearance) Assessed Palor -Temperature (Ida-wound Skin No Abnormality Appearance) (Pt Warm) -Tenderness on Palpation (Ida-wound No Skin Appearance) -Ulcer Cleansing Wound Cleanser -Foul Odor after Cleansing No 7. R ischium -Combined with other wound No -Current Size (cm) - Length 3.3 -Current Size (cm) - Width 4.8 -Current Size (cm) - Depth 4.5 -Total Square Cm 15.84 -Photo Taken No -Epithelialization None Present -Tunneling No -Undermining/Tunneling No -Circular Undermining No -Exudate Amt Large -Exudate Type Serosanguineous -Wound Margin Distinct, Outline Attached -Granulation Amt Large (67-100%) -Granulation Quality Hyper- granulation Pale Red -Slough/Fibrin Yes -Necrosis Amt Small (1-33%) -Necrotic Tissue Type Adherent Slough -Texture (Ida-wound Skin Appearance) Assessed Scarring -Moisture (Iad-wound Skin Appearance Assessed ) Dry/Scaly -Color (Ida-wound Skin Appearance) Assessed -Temperature (Ida-wound Skin No Abnormality Appearance) (Pt Warm) -Tenderness on Palpation (Ida-wound No Skin Appearance) -Ulcer Cleansing Wound Cleanser -Foul Odor after Cleansing No WC - Nurse 2 - General Ulcer CM Notes Start: 04/02/19 10:04 Freq: Status: Active Protocol: Activity Type Activity Date Activity User E-Sign Co-Sign Detail Recorded Client Recorded Date Recorded By Document 04/02/19 10:51 DV [id number] 04/02/19 10:53 DV 04/02/19 10:51 Wound Center Nurse 2 [Procedure/Treatment] #8 Right Lower Lumbar cluster -Time 10:51 -Correct Patient Yes -Correct Side, Site, Position Yes -Correct Procedure Yes -Procedure Performed Yes -Type of Procedure Debridement -Clinical Debridement Subcutaneous -Post Debridement Size (cm) - Length 1.5 -Post Debridement Size (cm) - Width 6.0 -Post Debridement Size (cm) - Depth 0.3 -Total Square Cm 9.00 -Wound/Ulcer Outcome Not Healed -Ulcer Cleansing Rinsed/ Irrigated with Saline -Foul Odor after Cleansing No -Bioengineered Tissue No -Bleeding Controlled with Pressure -Offloading No -Treatment Response Procedure Tolerated Well 7. R ischium -Time 10:52 -Correct Patient Yes -Correct Side, Site, Position Yes -Correct Procedure Yes -Procedure Performed Yes -Type of Procedure Debridement -Clinical Debridement Subcutaneous -Post Debridement Size (cm) - Length 3.5 -Post Debridement Size (cm) - Width 5.0 -Post Debridement Size (cm) - Depth 5.0 -Total Square Cm 17.50 -Wound/Ulcer Outcome Not Healed -Ulcer Cleansing Rinsed/ Irrigated with Saline -Foul Odor after Cleansing No -Bioengineered Tissue No -Bleeding Controlled with Pressure -Offloading No -Treatment Response Procedure Tolerated Well [See Physician Procedure note for Specifics] Pain Scale: 0-10 Numeric [Pain] -Is Patient Pain Free? Yes Neurological: - - Patient suffers from spina bifida and associated neurological deficits Psych/Mental Status: Normal Affect, Appropriate, Alert and oriented to time, place, person, mood and affect Debridement Note Post-Debridement Measurements/Treatment WC - Nurse 2 - General Ulcer CM Notes Start: 04/02/19 10:04 Freq: Status: Active Protocol: Activity Type Activity Date Activity User E-Sign Co-Sign Detail Recorded Client Recorded Date Recorded By Document 04/02/19 10:51 DV [id number] 04/02/19 10:53 DV 04/02/19 10:51 Wound Center Nurse 2 #8 Right Lower Lumbar cluster -Time 10:51 -Correct Patient Yes -Correct Side, Site, Position Yes -Correct Procedure Yes -Procedure Performed Yes -Type of Procedure Debridement -Clinical Debridement Subcutaneous -Post Debridement Size (cm) - Length 1.5 -Post Debridement Size (cm) - Width 6.0 -Post Debridement Size (cm) - Depth 0.3 -Total Square Cm 9.00 -Wound/Ulcer Outcome Not Healed -Ulcer Cleansing Rinsed/ Irrigated with Saline -Foul Odor after Cleansing No -Bioengineered Tissue No -Bleeding Controlled with Pressure -Offloading No -Treatment Response Procedure Tolerated Well 7. R ischium -Time 10:52 -Correct Patient Yes -Correct Side, Site, Position Yes -Correct Procedure Yes -Procedure Performed Yes -Type of Procedure Debridement -Clinical Debridement Subcutaneous -Post Debridement Size (cm) - Length 3.5 -Post Debridement Size (cm) - Width 5.0 -Post Debridement Size (cm) - Depth 5.0 -Total Square Cm 17.50 -Wound/Ulcer Outcome Not Healed -Ulcer Cleansing Rinsed/ Irrigated with Saline -Foul Odor after Cleansing No -Bioengineered Tissue No -Bleeding Controlled with Pressure -Offloading No -Treatment Response Procedure Tolerated Well Pain Scale: 0-10 Numeric Is Patient Pain Free? Yes Laterality: Right Type of Debridement: Excisional debridement Anesthesia Used: 5% Lidocaine Gel Depth: Down to and including healthy tissue - Serum, in the subcutaneous layer, to muscle, to bone Percentage of wound debrided: 100 Instrument Used: 7mm curette Tissue Removed: Bioburden and nonviable tissue Severity: Necrosis of Bone Amount of bleeding with debridement: Mild Bleeding Controlled with: Compression and gauze Patient tolerated procedure well - Additional Wound Laterality: Right - Lumbar area Type of Debridement: Excisional debridement Anesthesia Used: 5% Lidocaine Gel Depth: Down to and including healthy tissue, in the subcutaneous layer Percentage of wound debrided: 100 Instrument Used: 5mm curette Severity: Fat Layer Exposed Amount of bleeding with debridement: Mild Bleeding Controlled with: Compression and gauze Patient tolerated procedure: Patient tolerated procedure well Assessment/Plan Active Problems Stage IV decubitus ulcer (Chronic) Failure to thrive (Chronic) 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 Right trochanteric pressure sore, Stage IV, with extension to the hip joint. 2. Right hip joint infection secondary to the pressure sore. 3. Osteomyelitis. 4. MRSA. 5. MDR Burkholderia cepacia. 6. History of Pseudomonas urinary infections. 7. History of Pseudomonas wound infections. 8. Paraplegia. 9. Spina bifida.. Plan: Patient was seen today on behalf of Dr. Keith, who was on vacation. The patient's history has been reviewed, and discussion has been undertaken with the patient and his father at the bedside. It is understood that the patient suffers from a chronic osteomyelitis involving the right ischium and hip. Prolonged conservative treatment measures have been implemented, without success. Patient is felt to require a more radical approach. He is scheduled to undergo right hip disarticulation and reconstruction of the pelvis, the procedure which is to be performed at [facility] on May 16, 2019. In the interim, the patient is undergoing nutritional enhancement. On January 29, 2019, the patient underwent performance of a colostomy and placement of a G-tube. The G-tube is being used to supply the patient with the required amounts of protein and nutritional supplementation. Routine debridement has been performed to the patient's pressure ulcerations today, we are to continue the use of Promogran to the lumbar ulceration, and Aquacel to the right ischial ulceration. The patient is to follow-up in [address] Keith, his regular caregiver at our facility. This note was generated with [employer] dictation software. It may contain incorrect words, spelling, and punctuation that were not noted in checking the note before signing.
--- NOTE | 2019-04-02 11:01 | HP.PCM_ITS ---
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 Status: Chronic Current Visit: Yes Code(s): L89.214 - Pressure ulcer of right hip, stage 4 Comment: extending from the right ischial area (5) History of osteomyelitis Status: Chronic Current Visit: Yes Code(s): Z87.39 - Personal history of other diseases of the musculoskeletal system and connective tissue Comment: right sacral area (6) Spina bifida Status: Chronic Current Visit: Yes Qualifiers: Spinal region: lumbar Code(s): Q05.9 - Spina bifida, unspecified (7) Chronic osteomyelitis, pelvic region and thigh Status: Chronic Current Visit: Yes Qualifiers: Laterality: right Qualified Code(s): M86.651 - Other chronic osteomyelitis, right thigh Code(s): M86.659 - Other chronic osteomyelitis, unspecified thigh Comment: right sacral area (8) Malnutrition compromising bodily function Status: Chronic Current Visit: Yes Code(s): E46 - Unspecified protein- calorie malnutrition (9) Failure to thrive Status: Chronic Current Visit: Yes Qualifiers: Failure to thrive age range: in adult Qualified Code(s): R62.7 - Adult failure to thrive History of Present Illness Chief Complaint: Right buttock ulcer, Stage IV. History of Wound: Marcos is well-known to me and has received care at the wound center for over a year. He was last seen here over a month ago at which time he was referred for further surgical management of his chronic right pelvic region osteomyelitis. He was seen at [facility] and plan is for extensive surgical procedure. Prior to that due to significant malnutrition he had a G-tube placed and also had a colostomy placed. Recently discharged from [facility] in initial pelvic surgery/amputation is scheduled for 2 months. For now, he continues to apply wound VAC to his right buttock decubitus ulcer. Drainage is said to have improved since the colostomy. He denies chills, fever or feeling of unwell at this time. Past Medical History Past Medical History: Chronic Problems Stage IV decubitus ulcer (Chronic) Decubitus ulcer of right buttock, stage 3 (Chronic) Failure to thrive (Chronic) Decubitus ulcer of right ischium, stage 3 (Chronic) Stage IV pressure ulcer of right hip (Chronic) extending from the right ischial area History of osteomyelitis (Chronic) right sacral area Decubitus ulcer of right ischium, stage 2 (Chronic) Spina bifida (Chronic) Chronic osteomyelitis, pelvic region and thigh (Chronic) right sacral area Malnutrition compromising bodily function (Chronic) Surgical History: - - Several pressure ulcer interventions with debridements and surgical I&D's, tonsillectomy, bowel stoma and bladder surgery interventions, [employer] shunt, right plate thigh surgery, bilateral ankle tendon surgery. Allergies/Adverse Reactions: Allergies latex Allergy (Verified 10/25/18 15:25) Unknown unsure as charted levofloxacin [Levofloxacin] Allergy (Verified 10/25/18 15:25) Rash sulfamethoxazole [From Bactrim] Allergy (Verified 10/25/18 15:25) Rash trimethoprim [From Bactrim] Allergy (Verified 10/25/18 15:25) Rash Home Medications: Ambulatory Orders Medication Instructions Recorded Polyethylene Glycol 3350 [Miralax] 17 gm PO DAILY #30 05/06/14 Argin/Glut/Cahmb/Collag/Mv-Min 1 each PO BID MDD SUPPLEMENT 10/25/18 [Mark Packet] Caloric Supplement [Benecalorie] 7.5 kcal PO DAILY 10/25/18 Cyproheptadine HCl 4 mg PO DAILY 10/25/18 Vitamin E 400 units PO DAILY 10/25/18 - Family History Maternal - - Mother with a history of borderline hypertension. Paternal - - Father with a history of diabetes. Smoking Status: Never smoker - Physical Exam Vital Signs Temp Pulse Resp BP 99 F 126 H 16 127/76 H 04/02/19 10:04 04/02/19 10:04 04/02/19 10:04 04/02/19 10:04 General: Alert, Oriented x3, Cooperative, No apparent distress, - - Poorly nourished; multiple contracted joints HEENT: Atraumatic, PERRLA, EOMI, Normocephalic Oral: Moist Mucosa Neck: No JVD Lungs: Normal air movement Abdomen: Non-Distended, - - Colostomy and gastrostomy feeding tube are noted Extremities: No clubbing, No cyanosis, No edema, - - Multiple contractures are noted Skin: - - Ulcerations are noted in the lumbar area and the right ischium. The right ischial ulceration appears to be stage IV, in which osteomyelitis is present. There is a moderate amount of bioburden involving each. Dimensions are documented elsewhere. There is no obvious sign of infection or cellulitis. Wound Measurements and Assessment WC - Nurse 1 - General Ulcer Measurement Start: 04/02/19 10:04 Freq: Status: Active Protocol: Activity Type Activity Date Activity User E-Sign Co-Sign Detail Recorded Client Recorded Date Recorded By Document 04/02/19 10:04 [facility] [id number] 04/02/19 10:11 [facility] 04/02/19 10:04 Wound Center Nurse 1 [Ulcer Assessment] #8 Right Lower Lumbar cluster -Combined with other wound No -Current Size (cm) - Length 1 -Current Size (cm) - Width 5.8 -Current Size (cm) - Depth 0.3 -Total Square Cm 5.8 -Photo Taken No -Epithelialization None Present -Tunneling No -Undermining/Tunneling No -Circular Undermining No -Exudate Amt Medium -Exudate Type Serosanguineous -Wound Margin Flat & Intact -Granulation Amt Small (1-33%) -Granulation Quality [place] -Slough/Fibrin Yes -Necrosis Amt Large (67-100%) -Necrotic Tissue Type Adherent Slough -Texture (Ida-wound Skin Appearance) Assessed Scarring -Moisture (Ida-wound Skin Appearance Assessed ) Maceration -Color (Ida-wound Skin Appearance) Assessed Palor -Temperature (Ida-wound Skin No Abnormality Appearance) (Pt Warm) -Tenderness on Palpation (Ida-wound No Skin Appearance) -Ulcer Cleansing Wound Cleanser -Foul Odor after Cleansing No 7. R ischium -Combined with other wound No -Current Size (cm) - Length 3.3 -Current Size (cm) - Width 4.8 -Current Size (cm) - Depth 4.5 -Total Square Cm 15.84 -Photo Taken No -Epithelialization None Present -Tunneling No -Undermining/Tunneling No -Circular Undermining No -Exudate Amt Large -Exudate Type Serosanguineous -Wound Margin Distinct, Outline Attached -Granulation Amt Large (67-100%) -Granulation Quality Hyper- granulation Pale Red -Slough/Fibrin Yes -Necrosis Amt Small (1-33%) -Necrotic Tissue Type Adherent Slough -Texture (Ida-wound Skin Appearance) Assessed Scarring -Moisture (Ida-wound Skin Appearance Assessed ) Dry/Scaly -Color (Ida-wound Skin Appearance) Assessed -Temperature (Ida-wound Skin No Abnormality Appearance) (Pt Warm) -Tenderness on Palpation (Ida-wound No Skin Appearance) -Ulcer Cleansing Wound Cleanser -Foul Odor after Cleansing No WC - Nurse 2 - General Ulcer CM Notes Start: 04/02/19 10:04 Freq: Status: Active Protocol: Activity Type Activity Date Activity User E-Sign Co-Sign Detail Recorded Client Recorded Date Recorded By Document 04/02/19 10:51 DV [id number] 04/02/19 10:53 DV 04/02/19 10:51 Wound Center Nurse 2 [Procedure/Treatment] #8 Right Lower Lumbar cluster -Time 10:51 -Correct Patient Yes -Correct Side, Site, Position Yes -Correct Procedure Yes -Procedure Performed Yes -Type of Procedure Debridement -Clinical Debridement Subcutaneous -Post Debridement Size (cm) - Length 1.5 -Post Debridement Size (cm) - Width 6.0 -Post Debridement Size (cm) - Depth 0.3 -Total Square Cm 9.00 -Wound/Ulcer Outcome Not Healed -Ulcer Cleansing Rinsed/ Irrigated with Saline -Foul Odor after Cleansing No -Bioengineered Tissue No -Bleeding Controlled with Pressure -Offloading No -Treatment Response Procedure Tolerated Well 7. R ischium -Time 10:52 -Correct Patient Yes -Correct Side, Site, Position Yes -Correct Procedure Yes -Procedure Performed Yes -Type of Procedure Debridement -Clinical Debridement Subcutaneous -Post Debridement Size (cm) - Length 3.5 -Post Debridement Size (cm) - Width 5.0 -Post Debridement Size (cm) - Depth 5.0 -Total Square Cm 17.50 -Wound/Ulcer Outcome Not Healed -Ulcer Cleansing Rinsed/ Irrigated with Saline -Foul Odor after Cleansing No -Bioengineered Tissue No -Bleeding Controlled with Pressure -Offloading No -Treatment Response Procedure Tolerated Well [See Physician Procedure note for Specifics] Pain Scale: 0-10 Numeric [Pain] -Is Patient Pain Free? Yes Neurological: - - Patient suffers from spina bifida and associated neurological deficits Psych/Mental Status: Normal Affect, Appropriate, Alert and oriented to time, place, person, mood and affect Debridement Note Post-Debridement Measurements/Treatment WC - Nurse 2 - General Ulcer CM Notes Start: 04/02/19 10:04 Freq: Status: Active Protocol: Activity Type Activity Date Activity User E-Sign Co-Sign Detail Recorded Client Recorded Date Recorded By Document 04/02/19 10:51 DV [id number] 04/02/19 10:53 DV 04/02/19 10:51 Wound Center Nurse 2 #8 Right Lower Lumbar cluster -Time 10:51 -Correct Patient Yes -Correct Side, Site, Position Yes -Correct Procedure Yes -Procedure Performed Yes -Type of Procedure Debridement -Clinical Debridement Subcutaneous -Post Debridement Size (cm) - Length 1.5 -Post Debridement Size (cm) - Width 6.0 -Post Debridement Size (cm) - Depth 0.3 -Total Square Cm 9.00 -Wound/Ulcer Outcome Not Healed -Ulcer Cleansing Rinsed/ Irrigated with Saline -Foul Odor after Cleansing No -Bioengineered Tissue No -Bleeding Controlled with Pressure -Offloading No -Treatment Response Procedure Tolerated Well 7. R ischium -Time 10:52 -Correct Patient Yes -Correct Side, Site, Position Yes -Correct Procedure Yes -Procedure Performed Yes -Type of Procedure Debridement -Clinical Debridement Subcutaneous -Post Debridement Size (cm) - Length 3.5 -Post Debridement Size (cm) - Width 5.0 -Post Debridement Size (cm) - Depth 5.0 -Total Square Cm 17.50 -Wound/Ulcer Outcome Not Healed -Ulcer Cleansing Rinsed/ Irrigated with Saline -Foul Odor after Cleansing No -Bioengineered Tissue No -Bleeding Controlled with Pressure -Offloading No -Treatment Response Procedure Tolerated Well Pain Scale: 0-10 Numeric Is Patient Pain Free? Yes Laterality: Right Type of Debridement: Excisional debridement Anesthesia Used: 5% Lidocaine Gel Depth: Down to and including healthy tissue - Serum, in the subcutaneous layer, to muscle, to bone Percentage of wound debrided: 100 Instrument Used: 7mm curette Tissue Removed: Bioburden and nonviable tissue Severity: Necrosis of Bone Amount of bleeding with debridement: Mild Bleeding Controlled with: Compression and gauze Patient tolerated procedure well - Additional Wound Laterality: Right - Lumbar area Type of Debridement: Excisional debridement Anesthesia Used: 5% Lidocaine Gel Depth: Down to and including healthy tissue, in the subcutaneous layer Percentage of wound debrided: 100 Instrument Used: 5mm curette Severity: Fat Layer Exposed Amount of bleeding with debridement: Mild Bleeding Controlled with: Compression and gauze Patient tolerated procedure: Patient tolerated procedure well Assessment/Plan Active Problems Stage IV decubitus ulcer (Chronic) Failure to thrive (Chronic) 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 Right trochanteric pressure sore, Stage IV, with extension to the hip joint. 2. Right hip joint infection secondary to the pressure sore. 3. Osteomyelitis. 4. MRSA. 5. MDR Burkholderia cepacia. 6. History of Pseudomonas urinary infections. 7. History of Pseudomonas wound infections. 8. Paraplegia. 9. Spina bifida.. Plan: Patient was seen today on behalf of Dr. Keith, who was on vacation. The patient's history has been reviewed, and discussion has been undertaken with the patient and his father at the bedside. It is understood that the patient suffers from a chronic osteomyelitis involving the right ischium and hip. Prolonged conservative treatment measures have been implemented, without success. Patient is felt to require a more radical approach. He is scheduled to undergo right hip disarticulation and reconstruction of the pelvis, the procedure which is to be performed at [facility] on May 16. In the interim, the patient is undergoing nutritional enhancement. On January 29, 2019, the patient underwent performance of a colostomy and placement of a G-tube. The G-tube is being used to supply the patient with the required amounts of protein and nutritional supplementation. Routine debridement has been performed to the patient's pressure ulcerations today, we are to continue the use of Promogran to the lumbar ulceration, and Aquacel to the right ischial ulceration. The patient is to follow-up in [address] Keith, his regular caregiver at our facility. This note was generated with [employer] dictation software. It may contain incorrect words, spelling, and punctuation that were not noted in checking the note before signing.
== END 2019-04-21 23:59 ==
LOC: WC 10:21
PROVIDERS: Family Provider Family Medicine; PCP Family Medicine; Referring Provider Internal Medicine; Visit Provider Internal Medicine
DX: L89.214 Pressure ulcer of right hip, stage 4 (principal); G82.20 Paraplegia, unspecified; M86.659 Other chronic osteomyelitis, unspecified thigh; Z93.3 Colostomy status; Z86.14 Personal history of Methicillin resistant Staphylococcus aureus infection; R62.7 Adult failure to thrive; Q05.9 Spina bifida, unspecified
CPT/HCPCS: 11042; 11045

== ENCOUNTER 2019-04-24 10:06 | Outpatient (RCR) | payer OTHER, MEDICAID, SELFPAY ==
[2019-04-22 00:19] VITALS: BP 127/76; PULSE 126; RESP 16; TEMP 37.2
[2019-04-24 10:16] VITALS: BP 116/80; PULSE 116; RESP 16; TEMP 37.8; BMI 13.4
--- NOTE | 2019-04-24 11:16 | PN.PCM_ITS ---
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 Status: Chronic Current Visit: Yes Code(s): L89.214 - Pressure ulcer of right hip, stage 4 Comment: extending from the right ischial area (2) Chronic osteomyelitis, pelvic region and thigh Status: Chronic Current Visit: Yes Qualifiers: Code(s): M86.659 - Other chronic osteomyelitis, unspecified thigh Comment: right sacral area (3) Decubitus ulcer of back, stage 3 Status: Acute Current Visit: Yes Code(s): L89.103 - Pressure ulcer of unspecified part of back, stage 3 (4) Spina bifida Status: Chronic Current Visit: Yes Code(s): Q05.9 - Spina bifida, unspecified Type of Wound Date of Service: 04/24/19 Chief Complaint: Right buttock ulcer, Stage IV. History of Wound: Marcos is well-known to me and has received care at the wound center for over a year. He was last seen here over a month ago at which time he was referred for further surgical management of his chronic right pelvic region osteomyelitis. He was seen at [facility] and plan is for extensive surgical procedure. Prior to that due to significant malnutrition he had a G-tube placed and also had a colostomy placed. Recently discharged from [facility] in initial pelvic surgery/amputation is scheduled for 2 months. For now, he continues to apply wound VAC to his right buttock decubitus ulcer. Drainage is said to have improved since the colostomy. He denies chills, fever or feeling of unwell at this time. Progress of Wound: Family is concerned that Lumbar ulcer has had no improvement and also noted a foul smell . His father states that he has a lot of moisture build up over the night/ morning in the lumbar area due to the warmer weather and he typically does not like the fan blowing on him . - Physical Exam Vital Signs Temp Pulse Resp BP 100.1 F H 116 H 16 116/80 04/24/19 10:16 04/24/19 10:16 04/24/19 10:16 04/24/19 10:16 General: Alert, Oriented x3, Cooperative, No apparent distress HEENT: Atraumatic, Normocephalic Oral: Moist Mucosa Neck: Supple Extremities: No cyanosis Skin: Ulcer/ Wound Wound Measurements and Assessment WC - Nurse 1 - General Ulcer Measurement Start: 04/24/19 10:16 Freq: Status: Active Protocol: Activity Type Activity Date Activity User E-Sign Co-Sign Detail Recorded Client Recorded Date Recorded By Document 04/24/19 10:16 DV [id number] 04/24/19 10:36 DV 04/24/19 10:16 Wound Center Nurse 1 [Ulcer Assessment] #8 Right Lower Lumbar cluster -Combined with other wound No -Current Size (cm) - Length 7.0 -Current Size (cm) - Width 1.5 -Current Size (cm) - Depth 1.0 -Total Square Cm 10.50 -Photo Taken No -Epithelialization None Present -Tunneling No -Undermining/Tunneling No -Circular Undermining No -Classification - Thickness Full Thickness without Exposed Support Structure -Exudate Amt Large -Exudate Type Serosanguineous -Wound Margin Indistinct, Non -Visible -Granulation Amt None Present (0 %) -Granulation Quality N/A -Slough/Fibrin Yes -Necrosis Amt Large (67-100%) -Necrotic Tissue Type Adherent Slough -Structure Exposed None/Limited to Skin Breakdown -Texture (Ida-wound Skin Appearance) Assessed, Scarring -Moisture (Ida-wound Skin Appearance Assessed, ) Weeping -Color (Ida-wound Skin Appearance) Assessed, Erythema -Temperature (Ida-wound Skin No Abnormality Appearance) (Pt Warm) -Tenderness on Palpation (Ida-wound No Skin Appearance) -Ulcer Cleansing Wound Cleanser -Foul Odor after Cleansing No 7. R ischium -Combined with other wound No -Current Size (cm) - Length 8.5 -Current Size (cm) - Width 2.5 -Current Size (cm) - Depth 6.0 -Total Square Cm 21.25 -Photo Taken No -Epithelialization None Present -Tunneling No -Undermining/Tunneling No -Circular Undermining No -Classification - Thickness Full Thickness without Exposed Support Structure -Exudate Amt Large -Exudate Type Serosanguineous -Wound Margin Flat & Intact -Granulation Amt None Present (0 %) -Granulation Quality N/A -Slough/Fibrin Yes -Necrosis Amt Large (67-100%) -Necrotic Tissue Type Adherent Slough -Structure Exposed None/Limited to Skin Breakdown -Texture (Ida-wound Skin Appearance) Assessed, Localized Edema ,Scarring,Rash -Moisture (Ida-wound Skin Appearance Assessed, ) Weeping -Color (Ida-wound Skin Appearance) Assessed, Erythema -Temperature (Ida-wound Skin No Abnormality Appearance) (Pt Warm) -Ulcer Cleansing Wound Cleanser -Foul Odor after Cleansing Yes WC - Nurse 2 - General Ulcer CM Notes Start: 04/24/19 10:16 Freq: Status: Active Protocol: Activity Type Activity Date Activity User E-Sign Co-Sign Detail Recorded Client Recorded Date Recorded By Document 04/24/19 10:53 MW [id number] 04/24/19 11:06 MW 04/24/19 10:53 Wound Center Nurse 2 [Procedure/Treatment] #8 Right Lower Lumbar cluster -Time 10:53 -Correct Patient Yes -Correct Side, Site, Position Yes -Correct Procedure Yes -Procedure Performed Yes -Type of Procedure Debridement -Clinical Debridement Subcutaneous -Post Debridement Size (cm) - Length 1.2 -Post Debridement Size (cm) - Width 6.0 -Post Debridement Size (cm) - Depth 0.4 -Total Square Cm 7.20 -Wound/Ulcer Outcome Not Healed -Ulcer Cleansing Rinsed/ Irrigated with Saline -Foul Odor after Cleansing No -Bioengineered Tissue No -Bleeding Controlled with Pressure -Offloading No -Treatment Response Procedure Tolerated Well 7. R ischium -Time 10:53 -Correct Patient Yes -Correct Side, Site, Position Yes -Correct Procedure Yes -Procedure Performed Yes -Type of Procedure Debridement -Clinical Debridement Subcutaneous -Post Debridement Size (cm) - Length 2.3 -Post Debridement Size (cm) - Width 4.5 -Post Debridement Size (cm) - Depth 4.5 -Total Square Cm 10.35 -Wound/Ulcer Outcome Not Healed -Ulcer Cleansing Rinsed/ Irrigated with Saline -Foul Odor after Cleansing No -Bioengineered Tissue No -Bleeding Controlled with Pressure -Offloading No -Treatment Response Procedure Tolerated Well [See Physician Procedure note for Specifics] Pain Scale: 0-10 Numeric [Pain] -Is Patient Pain Free? Yes Neurological: Cranial nerves II-XII grossly intact Psych/Mental Status: Normal Affect Debridement Note Post-Debridement Measurements/Treatment [id number] - Nurse 2 - General Ulcer CM Notes Start: 04/24/19 10:16 Freq: Status: Active Protocol: Activity Type Activity Date Activity User E-Sign Co-Sign Detail Recorded Client Recorded Date Recorded By Document 04/24/19 10:53 MW [id number] 04/24/19 11:06 MW 04/24/19 10:53 Wound Center Nurse 2 #8 Right Lower Lumbar cluster -Time 10:53 -Correct Patient Yes -Correct Side, Site, Position Yes -Correct Procedure Yes -Procedure Performed Yes -Type of Procedure Debridement -Clinical Debridement Subcutaneous -Post Debridement Size (cm) - Length 1.2 -Post Debridement Size (cm) - Width 6.0 -Post Debridement Size (cm) - Depth 0.4 -Total Square Cm 7.20 -Wound/Ulcer Outcome Not Healed -Ulcer Cleansing Rinsed/ Irrigated with Saline -Foul Odor after Cleansing No -Bioengineered Tissue No -Bleeding Controlled with Pressure -Offloading No -Treatment Response Procedure Tolerated Well 7. R ischium -Time 10:53 -Correct Patient Yes -Correct Side, Site, Position Yes -Correct Procedure Yes -Procedure Performed Yes -Type of Procedure Debridement -Clinical Debridement Subcutaneous -Post Debridement Size (cm) - Length 2.3 -Post Debridement Size (cm) - Width 4.5 -Post Debridement Size (cm) - Depth 4.5 -Total Square Cm 10.35 -Wound/Ulcer Outcome Not Healed -Ulcer Cleansing Rinsed/ Irrigated with Saline -Foul Odor after Cleansing No -Bioengineered Tissue No -Bleeding Controlled with Pressure -Offloading No -Treatment Response Procedure Tolerated Well Pain Scale: 0-10 Numeric Is Patient Pain Free? Yes Wound debrided: Right Hip ( Ischial area ) Wound Grade/Stage: Stage IV Type of Debridement: Excisional debridement Anesthesia Used: 4% Lidocaine Solution Depth: Down to and including healthy tissue, in the subcutaneous layer Percentage of wound debrided: 100 Instrument Used: 5mm curette Tissue Removed: Slough and devitalized tissue Severity: Fat Layer Exposed Amount of bleeding with debridement: Mild Bleeding Controlled with: Pressure Patient tolerated procedure well - Additional Wound Wound debrided: Lower back/ Lumbar area Wound Grade/Stage: Stage III Type of Debridement: Excisional debridement Anesthesia Used: 4% Lidocaine Solution Depth: Down to and including healthy tissue, in the subcutaneous layer Percentage of wound debrided: 100 Instrument Used: 3mm curette Tissue Removed: Slough and devitalized tissue Severity: Fat Layer Exposed Amount of bleeding with debridement: Mild Bleeding Controlled with: Pressure Patient tolerated procedure: Patient tolerated procedure well Assessment/Plan Active Problems Decubitus ulcer of back, stage 3 (Acute) Stage IV pressure ulcer of right hip (Chronic) extending from the right ischial area Spina bifida (Chronic) Chronic osteomyelitis, pelvic region and thigh (Chronic) right sacral area Assessment: 1. Right trochanteric pressure sore, Stage IV, with extension to the hip joint. 2. Right hip joint infection secondary to the pressure sore. 3. Osteomyelitis. 4. MRSA. 5. MDR Burkholderia cepacia. 6. History of Pseudomonas urinary infections. 7. History of Pseudomonas wound infections. 8. Paraplegia. 9. Spina bifida.. Plan: Concerns regarding lower back/ lumbar area. Debridement done as documented above, procedure was well tolerated. Culture taken from lumbar area. For now, continue pomogran to lower back/ lumbar area. Guaze and ABD over top. Change twice daily. Continue aquacel with guaze and ABD to right hip/ Ischial area. Continue Offloading. Surgery schdeuled for 05/16 at [facility]. Continue optimizing nutrition. Hold off scheduling a follow up appointment till after surgery ( If needed ). They were advised to call with any questions or concerns. This note was generated with [employer] dictation software. It may contain incorrect words, spelling, and punctuation that were not noted in checking the note before signing.
== END 2019-05-22 23:59 ==
LOC: WC 10:06
PROVIDERS: Family Provider Family Medicine; PCP Family Medicine; Referring Provider Internal Medicine; Visit Provider Internal Medicine
DX: L89.214 Pressure ulcer of right hip, stage 4 (principal); Q05.9 Spina bifida, unspecified; Z93.3 Colostomy status; L89.103 Pressure ulcer of unspecified part of back, stage 3; M46.28 Osteomyelitis of vertebra, sacral and sacrococcygeal region; Z86.14 Personal history of Methicillin resistant Staphylococcus aureus infection
CPT/HCPCS: 11042; 87070; 87075; 87077; 87186; 87205

== ENCOUNTER 2020-01-13 16:27 | Outpatient (RCR) | payer OTHER, MEDICAID, SELFPAY ==
[2020-01-13 16:45] LABS: Absolute Lymphocyte Count 2.67 X10^3/uL (0.83-4.51); Absolute Neutrophil Count 4.3 X10^3/uL (2.0-7.7); Basophil# 0.08 X10^3/uL; Eosinophil# 0.53 X10^3/uL; Eosinophils% 6.4 % (0-5); Hematocrit 41.2 % (40-54); Hemoglobin 12.7 g/dL (13.0-16.5); Lymphocyte # 2.67 X10^3/ul (4.0); Lymphocyte % 32.2 % (19-41); Mean Corp Hgb Conc 30.8 g/dL (32-36); Mean Corpuscular Hgb 24.3 pg (27.0-32.0); Mean Corpuscular Volume 78.8 fL (80-94); Mean Platelet Vol. 9.2 fl (6.2-12.0); Monocyte# 0.62 X10^3/uL; Monocyte% 7.5 % (0-10); NRBC Flagged by Analyzer 0 % (0-5); Neutrophil # 4.32 X10^3/uL (2.7-7.7); Neutrophil % 51.9 % (47-70); Platelet Count 437 K/mm3 (150-450); RBC Distribution Width CV 19.9 % (11.6-14.6); RBC Distribution Width SD 55.2 fl (35.1-43.9); Red Blood Count 5.23 M/mm3 (4.6-6.2); White Blood Count 8.3 K/mm3 (4.4-11.0)
[2020-01-13 16:54] LABS: Creatinine, Serum 0.44 mg/dL (0.70-1.30); EST Glomerular Filtration Rate 253 mL/min (>60); Est Glom Filt Rate - Afr Amer 306 mL/min (>60); Potassium 3.7 mmol/L (3.5-5.1)
== END 2020-01-13 18:00 | disposition home or self-care (01) ==
LOC: HHLAB 16:27
PROVIDERS: PCP Family Medicine
DX: B96.1 Klebsiella pneumoniae [K. pneumoniae] as the cause of diseases classified elsewhere (principal); B96.5 Pseudomonas (aeruginosa) (mallei) (pseudomallei) as the cause of diseases classified elsewhere
CPT/HCPCS: 82565; 84132; 85025

== ENCOUNTER → 2022-12-29 | Outpatient (CLI) | payer OTHER, MEDICAID, SELFPAY ==
--- NOTE | 2022-12-29 10:35 | RAD_ITS ---
STUDY: X-RAY CHEST REASON FOR EXAM: Male, 27 years old. Cough. TECHNIQUE: Single frontal view of the chest. COMPARISON: October 25, 2018. FINDINGS: Low volume inspiration. There is no demonstrated pleural abnormality. Normal size heart. Normal mediastinum and adelina. Normal visualized pulmonary arteries. Normal visualized aortic arch and descending thoracic aorta. Marked thoracolumbar scoliosis with posterior fusion of the lower thoracic and upper lumbar region unchanged. Stable REWRITER shunt. RAD/Chest 1 View IMPRESSION: Stable chest with low volume inspiration and bibasilar atelectasis. No acute or active cardiopulmonary disease. Electronically Signed: Virgil Feng, at 10:49 EST ,
== END | disposition home or self-care (01) ==
LOC: PSN 09:56
PROVIDERS: PCP Student in an Organized Health Care Education/Training Program; Visit Provider Internal Medicine
DX: J96.10 Chronic respiratory failure, unspecified whether with hypoxia or hypercapnia (principal); Z99.89 Dependence on other enabling machines and devices
CPT/HCPCS: 71045

== ENCOUNTER 2024-02-20 20:21 | Emergency (ER) | payer OTHER, MEDICAID, SELFPAY ==
[2024-02-20 20:22] VITALS: BP 122/85; PULSE 82; RESP 16; TEMP 36; O2SAT 96
--- NOTE | 2024-02-20 20:41 | EDS_ITS ---
HPI History of Present Illness Chief Complaint: Other, Pain/Inj Detail of Chief Complaint: Patient presents because G-tube fell out. Informant: patient and parent Onset/Context/Timing Onset: Today Worsened by: Not applicable Relieved by: Not applicable Associated Symptoms Associated Symptoms: None Narrative Narrative: Patient is a 28-year-old male with history of spina bifida. He has no sensation from nipples down. G-tube fell out. Unknown what time it fell out. Parents attempted to place a new PEG tube without success. 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 Home Medications ipratropium bromide 21 mcg (0.03 %) nasal spray 2 spray intranasal ONCE PRN allergy symptoms #30 mL 12/01/22 [Rx Last Taken Unknown] nut.tx impaired digestive fxn-fiber 0.07 gram-1.5 kcal/mL oral liquid (Vital Peptide 1.5 Eriberto) ml PO 12/01/22 [History Last Taken Unknown] oxybutynin chloride 10 mg tablet,extended release 24 hr 10 mg PO DAILY 12/01/22 [History Last Taken Unknown] Allergy/AdvReac Type Severity Reaction Status Date / Time bacitracin Allergy Mild unknown Verified 02/20/24 20:22 latex Allergy Unknown Verified 02/20/24 20:22 levofloxacin [Levofloxacin] Allergy Rash Verified 02/20/24 20:22 sulfamethoxazole Allergy Rash Verified 02/20/24 20:22 [From Bactrim] trimethoprim [From Bactrim] Allergy Rash Verified 02/20/24 20:22 Social History Smoking Status: Never smoker ROS ROS ED Constitutional Constitutional ED: Denies chills or fever(s) Cardiovascular Cardiovascular: Reports chest pain Respiratory/Chest Respiratory/Chest: Reports dyspnea Gastrointestinal Gastrointestinal: Denies abdominal pain or vomiting EXAM Physical Exam Const Vital Signs: 02/20/24 20:22 02/20/24 20:43 Temperature 96.8 F L Temperature Source Temporal Pulse Rate 82 Respiratory Rate 16 Respiratory Effort Normal Respiratory Pattern Normal Blood Pressure 122/85 H Blood Pressure Mean 97 Pulse Ox 96 Positive well nourished and well developed General Appearance ED: well developed and NAD HEENT Reports moist mucous membranes HEENT Narrative: Head is atraumatic normocephalic Eyes PERRL and EOMs intact bilaterally Resp normal respiratory effort Cardio regular rate and regular rhythm GI normal to inspection, nondistended, normoactive bowel sounds, non-tender, non- distended and no masses; Negative for hepatosplenomegaly GI Narrative: Opening for G-tube appears to be closed. Nurse was asked to contact metal fabricating supervisor to get urethral sounds from the OR. Auscultation: hypoactive bowel sounds Palpation: soft Extremity Extremity Narrative: Deformity of lower extremity exam spina bifida Neuro oriented x3 and CN's II-XII intact bilaterally Psych mental status grossly normal Skin no rashes or lesions noted and no wounds General Skin Exam: Negative for jaundice MDM MDM MDM Narrative Medical decision making narrative: Feeding tube fell out. Will attempt to dilate opening and place new tube otherwise will contact GI. Procedures Other Procedures Procedure(s): Button tube tract was dilated using urethral sounds. Initially a 12 Malaysian was placed. Dilated up to 16. The gastric feeding button was placed without difficulty. The balloon was inflated. Traction was placed and tube remained in place. Discharge Plan Triage Chief Complaint: Other, Pain/Inj ED Provider: Joseph Rios Dx/Rx/DC Orders Clinical Impression: Visit for feeding tube placement, Spina bifida Instructions: ED Feeding Tube Replacement Prescriptions: No Action Vital Peptide 1.5 Eriberto 0.07 gram- 1.5 kcal/mL liquid PO oxybutynin chloride 10 mg tablet extended release 24hr 10 mg PO DAILY ipratropium bromide 21 mcg (0.03 %) spray,non-aerosol 2 spray intranasal ONCE PRN (Reason: allergy symptoms) Qty: 30 2RF Rx Instructions: administer into each nostril Primary Care Provider: Huan Mcgregor Referrals: Huan Mcgregor DO [Primary Care Provider] - As Needed Disposition Disposition: Home, Self Care
== END 2024-02-20 21:51 | disposition home or self-care (01) ==
PROVIDERS: Emergency Provider Emergency Medicine; PCP Student in an Organized Health Care Education/Training Program; Visit Provider Emergency Medicine
DX: K94.23 Gastrostomy malfunction (principal); Q05.9 Spina bifida, unspecified; R07.9 Chest pain, unspecified; R06.00 Dyspnea, unspecified
CPT/HCPCS: 99282

== ENCOUNTER 2025-06-07 09:54 | Inpatient (IN) | payer OTHER, MEDICAID, SELFPAY ==
[2025-06-07] VITALS (8 sets, daily range): BP systolic 117–151; BP diastolic 75–96; PULSE 113–131; RESP 16–18; TEMP 36.7–37.3; O2SAT 95–99; BMI 20.7; BMI 21.0
--- NOTE | 2025-06-07 10:17 | EX.ED.DYSGE1 ---
HPI History of Present Illness Chief Complaint: Complaint Detail of Chief Complaint: Temperature of 104.4 at home. Informant: patient and parent Onset/Context/Timing Onset: Today Context: Sudden Onset Timing: Intermittent Quality: Documented temperature greater than 104. Shaking chills and abdominal dist Location: Generalized and abdomen Current Severity: Gone Maximum Severity: Moderate Worsened by: Mom presumed UTI Relieved by: Antipyretic Associated Symptoms Associated Symptoms: Headache Narrative Narrative: Patient is a 29-year-old male. Patient was seen by Alexa Wallace for pulmonary appointment on June 05. Note was reviewed. Assessment was chronic respiratory failure with hypoxia and hypercapnia. Plan was noninvasive ventilatory support for sleep and rescue. Spina bifida with presence of hydrocephalus., Thoracic region, hypertension and chronic fatigue. 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 Chronic respiratory failure with hypoxia and hypercapnia Neuromuscular respiratory weakness Chronic respiratory failure requiring treatment with nocturnal BPAP by mask Home Medications ?Medication ?Instructions ?Recorded ?Last Taken ?Type nut.tx impaired digestive ml PO 12/01/22 Unknown History fxn-fiber 0.07 gram-1.5 kcal/mL oral liquid (Vital Peptide 1.5 Eriberto) cholecalciferol (vitamin D3) 10 10 mcg PO QDAY 02/27/25 06/06/25 History mcg (400 unit) chewable tablet diltiazem HCl 240 mg capsule,24 240 mg PO QDAY 02/27/25 06/06/25 History hr,extended release acetaminophen 325 mg capsule 325 mg PO Q6H PRN fever or pain 06/07/25 06/07/25 History Allergy/AdvReac Type Severity Reaction Status Date / Time bacitracin Allergy Mild unknown Verified 06/07/25 10:38 latex Allergy Unknown Verified 06/07/25 10:38 levofloxacin (Levofloxacin) Allergy Rash Verified 06/07/25 10:38 sulfamethoxazole (From Allergy Rash Verified 06/07/25 10:38 Bactrim) trimethoprim (From Bactrim) Allergy Rash Verified 06/07/25 10:38 Social History Smoking Status: Never smoker ROS ROS ED Constitutional Constitutional ED: Reports chills, fever(s) and sweats; Denies subjective or weight loss Eyes Eyes: Denies blurry vision, change in vision or diplopia ENT ENT ED: Denies ear pain, rhinorrhea or sore throat Cardiovascular Cardiovascular: Denies chest pain or palpitations Respiratory/Chest Respiratory/Chest: Denies cough, dyspnea or dyspnea on exertion Gastrointestinal Gastrointestinal: Reports other Details: Patient is making stool. There is stool in his colostomy and he is passing gas. Do not suspect his distention is due to an obstruction. ; Denies abdominal pain, diarrhea, nausea or vomiting Musculoskeletal Musculoskeletal: Reports other Details: Patient has no sensation from the waist down. ; Denies arthralgias, back pain or myalgias Integumentary Reports other Details: Mom states there is a small decubitus. It does not appear infected. ; Denies rash Neurologic Neurologic: Reports headache(s); Denies paresthesias Hematologic/Lymphatic Hematologic/Lymphatic: Reports systems reviewed and no addt'l complaints, except as documented EXAM Physical Exam Const Vital Signs: 06/07/25 09:55 Temperature 99.1 F Temperature Source Oral Pulse Rate 131 H Respiratory Rate 18 Blood Pressure 126/75 H Blood Pressure Mean 92 Pulse Ox 95 Oxygen Delivery Method Room Air Positive well nourished and well developed General Appearance ED: well developed and NAD; Negative for cyanotic, diaphoretic or pallor HEENT Reports moist mucous membranes HEENT Narrative: Head is atraumatic no cephalic. Ears normal. Nares patent. Eyes PERRL and EOMs intact bilaterally General Eye ED: Negative for pale conjunctiva or scleral icterus Neck no lymphadenopathy, supple and no JVD Chest Wall inspection of chest normal and palpation of chest normal Resp normal respiratory effort and clear to auscultation bilaterally Cardio regular rhythm, S1 normal heart sound, S2 normal heart sound and no murmurs Rate: tachycardic GI GI Narrative: Abdomen is distended slightly tympanitic. He has no sensation. There are multiple well-healed scars. He has a colostomy noted right lower quadrant. Extremity Extremity Narrative: AKA right lower extremity. Atrophy of the left lower extremity. Neuro oriented x3 and CN's II-XII intact bilaterally Sensorium / Orientation: alert Psych mental status grossly normal Skin no rashes or lesions noted and skin turgor normal General Skin Exam: elasticity normal; Negative for jaundice or pallor Sepsis Attestation Possible Source of Sepsis: Genitourinary (Patient does not have any endorgan dysfunction.) MDM MDM MDM Narrative Medical decision making narrative: With temperature of 104.4. Sepsis workup was undertaken which included CBC, competence of metabolic panel, lactate, UA and blood cultures. Mother believes the source is probably his urine. He has debris noted in the Wade collection tubing. Patient was treated with meropenem per sepsis order set since he has a chronic indwelling Wade. Patient has SIRS with no endorgan dysfunction. Therefore he does not have sepsis. Hence, reason no fluids were administered i.e. 30 cc/kg bolus. Lab Data Attestation: I reviewed the patient's lab results. Lab results narrative: White count is elevated at 19.4 thousand. He does have a shift. Competence of metabolic panel is remarkable glucose 134 with a normal CO2 anion gap. Lactate is less than 1. Labs: Laboratory Results - last 24 hr 06/07/25 06/07/25 10:30 10:50 WBC 19.4 H RBC 4.98 Hgb 14.2 Hct 41.8 MCV 83.9 MCH 28.5 MCHC 34.0 RDW Std Deviation 40.2 RDW Coeff of Leroy 13.1 Plt Count 211 MPV 9.2 Immature Gran % (Auto) 0.600 Neut % (Auto) 86.1 H Lymph % (Auto) 4.3 L Mcclain % (Auto) 8.8 Eos % (Auto) 0.0 Baso % (Auto) 0.2 Absolute Neuts (auto) 16.7 H Absolute Lymphs (auto) 0.83 Nucleated RBC % 0 Differential Comment SCANNED Sodium 133 Potassium 3.5 Chloride 95 L Carbon Dioxide 23.7 Anion Gap 14 BUN 13 Creatinine 0.83 Estim Creat Clear Calc 97.19 Est GFR (MDRD) Non-Af 123 BUN/Creatinine Ratio 15.7 Glucose 134 H Lactic Acid < 1.0 Calcium 9.5 Total Bilirubin 0.78 AST 20 ALT 35 Alkaline Phosphatase 121 Total Protein 8.0 Albumin 3.9 Globulin 4.1 Albumin/Globulin Ratio 1.0 Urine Color Yellow Urine Clarity Cloudy Urine pH 8.0 Ur Specific [place] 1.010 Urine Protein 100 H Urine Glucose (UA) Normal Urine Ketones 15 H Urine Occult Blood 250 H Urine Nitrite Positive H Urine Bilirubin Negative Urine Urobilinogen Normal Ur Leukocyte Esterase 500 H Urine RBC 5-10 SEEN Urine WBC 50-100 SEEN Ur Squamous Epith Cells 0-5 SEEN Urine Bacteria 2+ Urine Mucus 0 SEEN Management Discussion w/another healthcare provider: Hospitalist (Spoke with Dr. Qiu who accepted patient. He would like patient to go to [facility]U versus [facility].) Treatment and Re-Evaluation :: Patient and mother were informed that he has a complicated urine tract infection. Plan is IV antibiotics admit to [facility]. Mother would prefer that he be admitted to [facility]. 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
--- OUTSIDE RECORDS SUMMARY | 2025-06-07 10:39 | XMS RPT_ITS | CCD ---
Author Organization [facility] Care Team Providers Care Cargo Mate Name Role Phone Rox BENAVIDES MD, Michael Primary Care Provider [phone] ([place]), [place] Unavailable Nikita Gramajo DO Primary Care Provider NIKITA GRAMAJO Primary Care Unavailable AUGUSTIN REY Attending Unavailable AUGUSTIN REY Referring Unavailable NIKITA GRAMAJO A Primary Care Unavailable ALINA TATUM Attending Unavailable MISHA CAMARENA Attending Unavailable NIKITA GRAAMJO A Primary Care Unavailable ROX ZACK Primary Care Unavailable HALFLEX, ZACK Referring Unavailable AUGUSTIN REY Attending Unavailable NIKITA GRAMAJO A Primary Care Unavailable AUGUSTIN REY Attending Unavailable AUGUSTIN REY Referring Unavailable Rox BENAVIDES MD, Michael Primary Care Provider [phone] Rox BENAVIDES MD, Michael Primary Care Provider [phone] NIKITA GRAMAJO DO Primary Care Physician [phone] Dr. Omi Adams Attending Provider Rox BENAVIDES DO, Michael Primary Care Provider [phone] NIKITA GAUTHIER Referring Unavailable NIKITA GAUTHIER Attending Unavailable NIKITA GRAMAJO IV Primary Care Unavailable KELSIE GIRALDO Referring Unavailable ARTUR LAYTON Attending Unavailable NIKITA GRAMAJO IV Primary Care Unavailable MARIFER DOWD Referring Unavailable MARIFER DOWD Attending Unavailable NIKITA GRAMAJO IV Primary Care Unavailable ЕКАТЕРИНА, AJITA Referring Unavailable NIKITA GRAMAJO IV Primary Care Unavailable ЕКАТЕРИНА, HOITA Attending Unavailable ЕКАТЕРИНА, AJITA Referring Unavailable HARRY SHORE Attending Unavailable NIKITA GRAMAJO IV Primary Care Unavailable PATRICIA MONTALVO Referring Unavailable HALKO IV, NIKITA Primary Care Unavailable HALKO IV, NIKITA Primary Care Unavailable ЕКАТЕРИНА, AJITA Attending Unavailable ЕКАТЕРИНА, AJITA Admitting Unavailable ЕКАТЕРИНА, AJITA Referring Unavailable HALKO IV, NIKITA Primary Care Unavailable ЕКАТЕРИНА, AJITA Referring Unavailable HALKO IV, NIKITA Primary Care Unavailable DHRUV PATRICIA Referring Unavailable HALKO IV, NIKITA Primary Care Unavailable WOOD, KELSIE Referring Unavailable WOOD, KELSIE Attending Unavailable HALKO IV, NIIKTA Primary Care Unavailable ЕКАТЕРИНА, AJITA Referring Unavailable HALKO IV, NIKITA Primary Care Unavailable VICKI CHILD Attending Unavaila ble WOOD, KELSIE Referring Unavailable HALKO IV, NIKITA Primary Care Unavailable HALKO IV, NIKITA Primary Care Unavailable FREIBERG, NIKITA Referring Unavailable HALKO IV, NIKITA Primary Care Unavailable WOOD, KELSIE Referring Unavailable HALKO IV, NIKITA Primary Care Unavailable NEMMANDO MARTÍNEZ Attending Unavadevante GAUTHIER, NIKITA Referring Unavailable HALKO IV, NIKITA Primary Care Unavailable Halko IV, DONikita A Primary Care Provider HALKO DO, NIKITA Primary Care Unavailable HALKO DO, NIKITA Attending Unavailable HALKO DO, NIKITA Attending Unavailable HALKO DO, NIKITA Primary Care Unavailable Igel RD, Lashon J Unavailable Halko IV, DO, Zack Primary Care Provider [phone] HALKO DO, NIKITA Attending Unavailable HALKO DO, NIKITA Primary Care Unavailable Alexa Peterson NP Attending Unavailable Halko, Nikita Referring Unavailable Halko, Nikita Primary Care Unavailable Halko , Dr. Pressley Primary Care Provider Dr. Nikita Gramajo DO Referring Provider Nicholas WEBSTER-CAlexa Attending Provider Allergies Allergy Classification Reported Allergen(s) Allergy Type Date of Onset Reaction(s) Facility (20 sources) Bacitracin; Translations: [BACITRACIN] Drug Allergy 05-16-20 19 Other: See Comments, Rash, Eruption of skin (disorder) [facility] (20 sources) Latex; Translations: [LATEX] Drug Allergy 12-22-19 12 Other: See Comments, Other (See Comments) [facility] Comment on above: unsure as charted (20 sources) levoFLOXacin; Translations: [LEVOFLOXACIN] Drug Allergy 05-21-20 13 Rash, Other (See Comments) [facility] (20 sources) Sulfamethoxazole / Trimethoprim; Translations: [sulfamethoxazole-t rimethoprim] Drug Allergy 11-11-19 Rash [facility] (3 sources) Sulfonamides (Antibiotic); Translations: [SULFA ANTIBIOTICS] Propensity to adverse reactions 06-27-20 [facility] (3 sources) Other; Translations: [OTHER] Allergy to substance 12-22-19 [facility] Work Phone: (3 sources) Sulfamethoxazole Drug Allergy 12-01-19 [facility] (3 sources) Trimethoprim Drug Allergy 12-01-19 [facility] (1 source) Bacitracin Drug Allergy 02-28-20 [facility] (1 source) Latex Drug allergy (disorder) 02-28-20 [facility] (1 source) levoFLOXacin Drug Allergy 02-28-20 [facility] (1 source) Sulfamethoxazole Drug Allergy 02-28-20 [facility] (1 source) Trimethoprim Drug Allergy 02-28-20 [facility] Medications Current Medications Medication Drug Class(es) Dates Sig (Normalized) Sig (Original) albuterol 0.83 mg/ml inhalation solution (2 sources) beta2-Adrenergic Agonist Start: 05-31-2021 albuterol (VENTOLIN) (2.5 MG/3ML) 0.083% nebulizer solution Use 3 mL (2.5 mg) by nebulization every 4 hours 60 Each 0 05/31/2021 Active cefdinir 300 mg oral capsule (1 source) Cephalosporin Antibacterial Start: 09-07-2023 End: 09-17-2023 cefdinir 300 mg oral capsule Dose : 300 mg = 1 cap(s), Oral, q12h, X 10 day(s), # 20 cap(s), 0 Refill(s), 09/17/23 11:29:00 AM EST, Pharmacy: [facility] #[id number], 46.8 Start Date: 09/07/23 Stop Date: 09/17/23 Status: Ordered cholecalciferol 0.01 mg chewable tablet (1 source) Vitamin D Start: 02-27-2025 take 1 tablet by mouth once daily Cholecalciferol (Vitamin D3) 10 mcg (400 unit) tablet,chewable Active 10 ug PO daily February 27, 2025 12:00am 24 hr dilTIAZem hydrochloride 240 mg extended release oral capsule (20 sources) Calcium Channel Whitley Start: 02-27-2025 take 1 capsule by mouth once daily Diltiazem Hcl 240 mg capsule,extended release 24 hr Active 240 mg PO daily February 27, 2025 12:00am Start: 07-04-2024 take 1 capsule by [facility] every hour, then take 1 capsule by mouth once daily dilTIAZem 240 mg/24 hours oral capsule, extended release Dose : 240 mg = 1 cap(s), Oral, qDay, # 90 cap(s), 0 Refill(s), Pharmacy: [facility], , 07/04/24 14:02:00 EDT, Dosing Weight Start Date: 07/04/24 Status: Ordered Start: 11-24-2023 take 1 capsule by mouth once C ARTIA XT 120 mg 24 hr capsule Take 1 capsule by mouth every afternoon. 11/24/2023 Active Comment on above: Take 1 capsule by [facility] every afternoon. DME [facility] (3 sources) Start: 08-10-20 [facility] See Instructions, dispense one nebulizer with tubing and mask; dx Q05.9, R05.9, # 1 EA, 0 Refill(s), 46.8 Start Date: 08/10/21 Status: Ordered famotidine 8 mg/ml oral suspension (2 sources) Histamine-2 Receptor Antagonist Start: 06-01-20 take 2.5 mL by mouth twice daily famotidine (PEPCID) 40 MG/5ML oral suspension Take 2.5 mL (20 mg) by mouth 2 times daily 150 mL 2 06/01/2021 Active HANDICAP PLACARD (2 sources) Start: 01-28-20 HANDICAP PLACARD Permanent Placard. Expiration 5 years from ordering date, for the purpose of a disability. Indication for Placard: impaired mobility Diagnosis: myelomeningocele 1 Each 0 01/28/2020 Active MEDICAL SUPPLY (20 sources) Start: 02-28-20 MEDICAL SUPPLY Indications: Neurogenic bladder Lubrication jelly [id number] (1 box every 3 months) Bed pads [id number] 1 Each 11 02/28/2024 Active Start: 02-28-2024 MEDICAL SUPPLY Indications: Decreased oral intake Feed bags INF 1200-E (30 per month) Feed ext tube [id number] (4 per month) G-tube button 20F 4.0cm (2 per year) 2x2 split sponges 16-4226 (1 box per month) 2 paper tape 1530-2 (1 box every 6 months) 4x4 drain sponges 7088 (1 box per 12 months) 1 Each 11 02/28/2024 Active Start: 02-14-2024 MEDICAL SUPPLY Indications: Neurogenic bladder Overnight gravity urine bags (4 per month) 14F male straight Covian latex free ([id number]) 1 box per month Prevail diapers - size medium (PFO12/2 1 per day - 30 per month 1 Each 11 02/14/2024 Active Start: 02-12-2024 MEDICAL SUPPLY Indications: Colostomy in place (HCC) 2 skin barrier rings [id number] (1 box every 2 months) Adapt adhesive remover wipes 7760 (1 box every 2 months) Obdulia colostomy bag 8901(1 box per month) Hy-tape 1/2x5 yards 105LF (1 roll every 6 months) 1 Each 11 02/12/2024 Active LELE-SAHNI GASTROSTOMY TUBE (14 sources) Start: 03-06-2024 LELE-SAHNI GASTRO STOMY TUBE Change 12F-4.0mm gastrostomy tube button every 3 months. Dispense 2 so patent can have a backup at home for emergency use. 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 20 Croatian, 4.0 cm Lele-sahni button 1 Each 0 06/07/2023 06/07/2023 Comment on above: 1 Tube by MISCELLANE OUS route one time only for 1 dose. 20 Croatian, 4.0 cm Lele-sahni button Nut.Tx.Impaired Dige Fxn-Fiber (VITAL 1.0 SHINE) 0.04 gram- 1 kcal/mL liqd (20 sources) Start: 01-27-2025 Nut.Tx.Impaired Dige Fxn-Fiber (VITAL 1.0 SHINE) 0.04 gram- 1 kcal/mL liqd Indications: On tube feeding diet Infuse 5 cartons Vital 1.0 or equivalent peptide based formula at 85 ml/hr for 14 hours via Inifinity pump. Flush tube wit 60 ml before starting tube feed and 60 ml after tube feeding completed 95571 mL 11 01/27/2025 Active Start: 01-19-2024 End: 01-27-2025 Nut.Tx.Impaired Dige Fxn-Fib er (VITAL 1.0 SHINE) 0.04 gram- 1 kcal/mL liqd Indications: On tube feeding diet Infuse 5 cartons Vital 1.0 or equivalent peptide based formula at 85 ml/hr for 14 hours via Inifinity pump. Flush tube wit 60 ml before starting tube feed and 60 ml after tube feeding completed 17849 mL 11 01/19/2024 01/27/2025 Discontinued Start: 01-19-2024 Nut.Tx.Impaire d Dige Fxn-Fiber (VITAL 1.0 SHINE) 0.04 gram- 1 kcal/mL liqd Indications: On tube feeding diet Infuse 5 cartons Vital 1.0 or equivalent peptide based formula at 85 ml/hr for 14 hours via Inifinity pump. Flush tube wit 60 ml before starting tube feed and 60 ml after tube feeding completed 41418 mL 11 01/19/2024 Active Comment on above: Infuse 5 cartons Vit al 1.0 or equivalent peptide based formula at 85 ml/hr for 14 hours via Inifinity pump. Flush tube wit 60 ml before starting tube feed and 60 ml after tube feeding completed Nut.Tx.Impaired Dige Fxn-Fiber (Vital Peptide 1.5 Shine) 0.07 gram- 1.5 kcal/mL liquid (3 sources) Start: 12-01-2022 Nut.Tx.Impaired Dige Fxn-Fiber (Vital Peptide 1.5 Shine) 0.07 gram- 1.5 kcal/mL liquid Active mL PO December 01, 2022 1:00am Start: 12-01-2022 Nut.Tx.Impaire d Dige Fxn-Fiber (Vital Peptide 1.5 Shine) 0.07 gram- 1.5 kcal/mL liquid Active ML PO December 01, 2022 1:00am nutritional supplement (3 sources) Start: 11-15-2019 nutritional mae pplement See Instructions, Vital Peptide, 3 daily, 0 Refill(s) Start Date: 11/15/19 Status: Ordered Nutritional Supplements (VITAL PEPTIDE 1.5 SHINE) LIQD (2 sources) Nutritional Supp lements (VITAL PEPTIDE 1.5 SHINE) LIQD Take by mouth 0 Active nystatin 100 unt/mg topical powder (1 source) Polyene Antifungal Start: 06-05-2025 Nystatin 10 0,000 unit/gram powder Active TOPICAL TWICE A DAY June 05, 2025 12:00am ondansetron 4 mg disintegrating oral tablet (5 sources) Serotonin-3 Receptor Antagonist Start: 09-07-2023 End: 10-07-2023 ondansetron 4 mg oral tablet, disintegrating Dose : 4 mg = 1 tab(s), Oral, q8h, X 30 day(s), # 90 tab(s), 0 Refill(s), 10/07/23 11:29:00 AM [facility], [facility]: [id number] Start Date: 09/07/23 Stop Date: 10/07/23 Status: Ordered Start: 06-23-2022 take 1 tablet by kait th every eight hours as needed for nausea ondansetron (ZOFRAN-ODT) 4 MG disintegrating tablet Take 1 Tablet (4 mg) by mouth every 8 hours as needed for Nausea 20 Tablet 2 06/23/2022 Active Start: 06-19-2022 End: 06-19-2022 take 1 tablet by mouth every eight hours as needed for nausea ondansetron (ZOFRAN-ODT) 4 MG disintegrating tablet Take 1 Tablet (4 mg) by mouth every 8 hours as needed for Nausea 15 Tablet 0 06/19/2022 Active Completed/Discontinued Medications Medication Drug Class(es) Dates Sig (Normalized) Sig (Original) acetaminophen 500 mg oral tablet (18 sources) Start: 01-08-2020 take 2 tablets by mouth every six hours as needed acetaminophen (TYLENOL EXTRA STRENGTH) 500 mg tablet Take 2 tablets by mouth every 6 hours as needed for Pain. 30 tablet 0 01/08/2020 Active Start: 10-26-2018 End: 02-06-2019 take 2 tablets by mouth every six hours as needed for pain Acetaminophen (Tylenol) 325 MG tablet Discontinued 650 mg PO EVERY 6 HOURS NEEDED as needed for Non-cardiac pain (mod-severe) 0 October 26, 2018 1:00am February 06, 2019 10:39am Comment on above: Take 2 tablets by mo uth every 6 hours as needed for Pain. amoxicillin 50 mg/ml oral suspension (3 sources) Penicillin-class Antibacterial Start: 4 End: 4 take 600 mg by mouth every twelve hours Amoxicillin 250 MG/5 ML Ml Discontinued 600 mg PO Q12H October 28, 2013 1:00am January 30, 2014 10:38am amoxicillin 875 mg / clavulanate 125 mg oral tablet (9 sources) Penicillin-class Antibacterial Start: 9 End: 9 Amoxicillin-Pot Clavulanate (Augmentin 875-125 Tablet) 1 EACH tablet Discontinued 1 NMA PO TWICE A DAY 14 0 October 26, 2018 1:00am February 06, 2019 10:39am take with food Start: 01-09-2015 End: 01-27-2016 take 1 tablet by mouth twice daily Amoxicillin-Pot Clavulanate 500 MG tablet Discontinued 500 mg PO TWICE A DAY 20 0 January 09, 2015 12:00am January 27, 2016 1:23pm Start: 11-01-2013 End: 01-30-2014 take 1 mL by mouth every twelve hours Amoxicillin-Pot Clavulanate 250 MG/5 ML bottle Discontinued 10 mL PO Q12H November 01, 2013 1:00am January 30, 2014 10:38am Start: 11-01-2013 End: 01-30-2014 take 1 mL by mouth every twelve hours Amoxicillin-Pot Clavulanate Discontinued 10 ML PO Q12H November 01, 2013 1:00am January 30, 2014 10:38am Kjbcw-Zhgm-Gpotv-Collag-Mv-M in (Mark (With Collagen)) 1 EACH powder in packet (3 sources) Start: 10-25-2018 End: 12-01-2022 Maofv-Cbbf-Ynoii-Collag-Mv-M in (Mark (With Collagen)) 1 EACH powder in packet Discontinued 1 NMA PO TWICE A DAY October 25, 2018 1:00am December 01, 2022 2:12pm S Start: 10-25-2018 End: 12-01-2022 Gjhlp-Ujho-Dsirf-Collag-Mv-M in (Mark (With Collagen)) 1 EACH powder in packet Discontinued 1 EACH PO TWICE A DAY October 25, 2018 1:00am December 01, 2022 2:12pm cefepime 1000 mg injection (3 sources) Cephalosporin Antibacterial Start: 05-01-2014 End: 05-06-2014 take 1 g intravenously twice daily Cefepime (Maxipime) 1 GM Vial.Port Discontinued 1.5 g IV TWICE A DAY May 01, 2014 12:00am May 06, 2014 5:16pm cyproheptadine hydrochloride 4 mg oral tablet (12 sources) Start: 09-21-2021 take 1 tablet by mouth every twenty-four hours cyproheptadine (PERIACTIN) 4 MG tablet take 1 tablet by mouth every 24 hours 30 Tablet 5 09/21/2021 Active Start: 10-25-2018 End: 12-01-2022 take 1 tablet by mouth once daily Cyproheptadine 4 MG tablet Discontinued 4 mg PO DAILY October 25, 2018 1:00am December 01, 2022 2:14pm Comment on above: Take 1 tablet by kait th daily at bedtime. Take 4 mg by mouth d aily at bedtime. DULCOLAX, BISACODYL, ORAL (3 sources) DULCOLAX, BISACO DYL, ORAL Take by mouth. 0 Active Comment on above: Take by mouth. Food Supplemt, Lactose-Reduced (Ensure Plus) 237 ML Liquid (3 sources) Start: 10-25-2018 End: 02-06-2019 take 1 mL by mouth twice daily Food Supplemt, Lactose-Reduced (Ensure Plus) 237 ML Liquid Discontinued 237 mL PO TWICE A DAY October 25, 2018 1:00am February 06, 2019 10:40am Start: 10-25-2018 End: 02-06-2019 take 1 mL by mouth twice daily Food Supplemt, Lactose-Reduced (Ensure Plus) 237 ML Liquid Discontinued 237 ML PO TWICE A DAY October 25, 2018 1:00am February 06, 2019 10:40am Ipratropium (8 sources) Anticholinergic Start: 12-01-2022 End: 01-26-2024 IPRATROPIUM BROMIDE NASAL Us e in the nose. 0 12/01/2022 01/26/2024 Discontinued (Course of therapy completed) Start: 12-01-2022 IPRATROPIUM BR OMIDE NASAL Use in the nose. 0 12/01/2022 Active Start: 12-01-2022 take 1 spray(s) nasa l route once Ipratropium Pearl Active 2 SPRAY INTRANASAL ONCE December 01, 2022 1:00am administer into each nostril Comment on above: Use in the nose. Ipratropium Pearl 21 mcg (0.03 %) spray,non-aerosol (1 source) Start: 12-01-2022 End: 02-27-2025 Ipratropium Pearl 21 mcg (0.03 %) spray,non-aerosol Discontinued 2 NMA INTRANASAL ONCE as needed for allergy symptoms December 01, 2022 1:00am February 27, 2025 2:54pm administer into each nostril metroNIDAZOLE 500 mg oral tablet (2 sources) Nitroimidazole Antimicrobial Start: 02-16-2023 metroNIDAZOLE (FLAGYL) 500 mg tablet Take 1 tablet by mouth at 9pm and take 1 tablet by mouth at 11pm the night before surgery. 2 tablet 0 02/16/2023 Active Comment on above: Take 1 tablet by kait th at 9pm and take 1 tablet by mouth at 11pm the night before surgery. neomycin sulfate 500 mg oral tablet (2 sources) Aminoglycoside Antibacterial Start: 02-16-2023 neomycin 500 mg tablet Take 2 tablets by mouth at 9pm and take 2 tablets by mouth at 11pm the night before surgery. 4 tablet 0 02/16/2023 Active Comment on above: Take 2 tablets by mo uth at 9pm and take 2 tablets by mouth at 11pm the night before surgery. Nut.Tx.Impaired Dige Fxn-Fiber (VITAL PEPTIDE 1.5 SHINE) 0.07 gram- 1.5 kcal/mL liqd (8 sources) Start: 06-21-2023 End: 01-26-2024 Nut.Tx.Impaired Dige Fxn-Fiber (VITAL PEPTIDE 1.5 SHINE) 0.07 gram- 1.5 kcal/mL liqd Indications: Decreased oral intake 574 mL by G-TUBE route once daily. 67076 mL 11 06/21/2023 01/26/2024 Discontinued (Course of therapy completed) Start: 06-21-2023 Nut.Tx.Impaire d Dige Fxn-Fiber (VITAL PEPTIDE 1.5 SHINE) 0.07 gram- 1.5 kcal/mL liqd Indications: Decreased oral intake 574 mL by G-TUBE route once daily. 58192 mL 11 06/21/2023 Active Comment on above: 574 mL by G-TUBE rou te once daily. Nutritional Supplement - Fiber (PEPTIDE FORMULA 1.5) liqd (15 sources) Nutritional Supp lement - Fiber (PEPTIDE FORMULA 1.5) liqd Take by mouth. 0 Active Comment on above: Take by mouth. Nutritional Supplement-Caloric (Benecalorie) 7.5 KCAL/ML liquid (3 sources) Start: 10-25-2018 End: 12-01-2022 Nutritional Supplement-Caloric (Benecalorie) 7.5 KCAL/ML liquid Discontinued 7.5 kCal/[oz_av] PO DAILY October 25, 2018 1:00am December 01, 2022 2:14pm Start: 10-25-2018 End: 12-01-2022 Nutritional Supplement-Calor ic (Benecalorie) 7.5 KCAL/ML liquid Discontinued 7.5 KCAL PO DAILY October 25, 2018 1:00am December 01, 2022 2:14pm 24 hr oxybutynin chloride 10 mg extended release oral tablet (20 sources) Cholinergic Muscarinic Antagonist Start: 12-01-2022 End: 02-27-2025 take 1 tablet by mouth once daily Oxybutynin Chloride 10 mg tablet extended release 24hr Discontinued 10 mg PO DAILY December 01, 2022 1:00am February 27, 2025 2:55pm Start: 12-10-2021 End: 03-25-2022 take 1 tablet by mouth once daily oxybutynin ER (DITROPAN XL) 10 mg 24 hr tablet Take 1 tablet by mouth once daily. 30 tablet 11 03/25/2022 Active Start: 11-15-2019 take 1 tablet by kait th every hour, then take 1 tablet by mouth once daily oxybutynin 10 mg/24 hr oral tablet, extended release Dose : 10 mg = 1 tab(s), Oral, qDay, # 30 tab(s), 0 Refill(s) Start Date: 11/15/19 Status: Ordered Comment on above: Take 1 tablet by kait th once daily. Take 10 mg by mouth once daily. polyethylene glycol 3350 41584 mg powder for oral solution (9 sources) Osmotic Laxative Start: 3 End: 3 take 17 g by mouth once daily Polyethylene Glycol 3350 17 GM packet Discontinued 17 g PO DAILY 30 0 May 06, 2014 5:16pm December 01, 2022 2:14pm tamsulosin hydrochloride 0.4 mg oral capsule (3 sources) alpha-Adrenergic Whitley Start: 3 End: 4 take 1 capsule by mouth once daily Tamsulosin 0.4 MG capsule Discontinued 0.4 mg PO DAILY July 22, 2013 12:00am May 06, 2014 5:16pm vitamin e 180 mg oral capsule (3 sources) Start: 9 End: 3 Vitamin E (Dl, Acetate) 400 UNITS capsule Discontinued 400 U PO DAILY October 25, 2018 1:00am December 01, 2022 2:14pm Problems Active Problems Problem Classification Problem Date Documented Date Episodic/Chronic Cardiac dysrhythmias (2 sources) Tachycardia; Translations: [Tachycardia, unspecified] 08-25-2023 Episodic Chronic ulcer of skin (20 sources) Pressure ulcer of buttock stage 4; Translations: [Pressure ulcer of right buttock, stage 4] Onset: 09-14-20 12 06-01-2019 Chronic Comment on above: extending from the r ight ischial area extended into the ri ght trochanteric area Developmental disorders (4 sources) Intellectual disability; Translations: [Unspecified intellectual disabilities] Onset: 02-17-20 17 02-16-2017 Chronic Genitourinary symptoms and ill-defined conditions (20 sources) Suprapubic urinary catheter in situ; Translations: [Other cystostomy status] Onset: 01-01-20 20 01-01-2020 Chronic Genitourinary symptoms and ill-defined conditions (10 sources) Retention of urine; Translations: [Retention of urine, unspecified] Onset: 03-25-20 Episodic Heart valve disorders (1 source) Heart murmur 07-04-2024 Episodic Immunizations and screening for infectious disease (3 sources) Culture positive for methicillin resistant Staphylococcus aureus; Translations: [Carrier or suspected carrier of Methicillin resistant Staphylococcus aureus] 04-02-2019 Episodic Infective arthritis and osteomyelitis (except that caused by tuberculosis or sexually transmitted disease) (20 sources) Chronic osteomyelitis of pelvis; Translations: [Other chronic osteomyelitis, unspecified thigh] Onset: 12-29-19 19 11-15-2021 Chronic Comment on above: right sacral area Malaise and fatigue (3 sources) Fatigue 08-19-2022 Episodic Mood disorders (2 sources) Depressive disorder; Translations: [Depression] 02-27-2025 Chronic Mycoses (6 sources) Candidiasis; Translations: [Onychomycosis] 06-10-2020 Episodic Nervous system congenital anomalies (20 sources) Spina bifida with hydrocephalus; Translations: [Lumbar spina bifida with hydrocephalus] Onset: 08-04-19 97 01-01-2020 Chronic Comment on above: thoracic Noninfectious gastroenteritis (1 source) Gastroenteritis; Translations: [Noninfective gastroenteritis and colitis, unspecified] Episodic Nutritional deficiencies (7 sources) Vitamin D deficiency; Translations: [Vitamin D deficiency, unspecified] Onset: 03-25-20 Chronic Open wounds of head; neck; and trunk (1 source) Open wound of back; Translations: [Unspecified open wound of unspecified back wall of thorax without penetration into thoracic cavity, initial encounter] 01-29-2024 Episodic Other acquired deformities (2 sources) Scoliosis deformity of spine 11-09-2022 Chronic Other bone disease and musculoskeletal deformities (1 source) History of amputation of right leg through femur; Translations: [Acquired absence of right leg above knee] Chronic Other bone disease and musculoskeletal deformities (1 source) Acquired absence of right leg above knee; Translations: [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)] Onset: 03-25-20 Chronic Other connective tissue disease (3 sources) History of osteomyelitis; Translations: [Personal history of other diseases of the musculoskeletal system and connective tissue] 04-24-2019 Episodic Comment on above: right sacral area Other diseases of bladder and urethra (20 sources) Neurogenic bladder; Translations: [Neuromuscular dysfunction of bladder, unspecified] Onset: 08-04-19 Chronic Other diseases of bladder and urethra (1 source) Neuromuscular dysfunction of bladder, unspecified; Translations: [Neurogenic bladder] Onset: 10-04-20 Chronic Other ear and sense organ disorders (1 source) Impacted cerumen 07-04-2024 Episodic Other gastrointestinal disorders (20 sources) Colostomy present; Translations: [Colostomy status] Onset: 05-04-20 15 01-01-2020 Chronic Other gastrointestinal disorders (20 sources) Gastrostomy present; Translations: [Gastrostomy status] Onset: 01-01-20 20 01-08-2020 Chronic Other gastrointestinal disorders (6 sources) Neurogenic bowel; Translations: [Neurogenic bowel, not elsewhere classified] Onset: 06-13-20 Chronic Other gastrointestinal disorders (1 source) Colostomy status; Translations: [Colostomy present (HCC)] Onset: 01-01-20 Chronic Other gastrointestinal disorders (1 source) Gastrostomy status; Translations: [G tube feedings (HCC)] Onset: 01-08-20 Chronic Other gastrointestinal disorders (1 source) Neurogenic bowel, not elsewhere classified; Translations: [Neurogenic bowel] Onset: 03-25-20 Chronic Other lower respiratory disease (3 sources) Cough 08-10-2021 Episodic Other lower respiratory disease (2 sources) Restrictive lung disease 11-10-2022 Episodi c Other nervous system disorders (3 sources) Ulnar neuropathy; Translations: [Lesion of ulnar nerve, left upper limb] Chronic Other nervous system disorders (20 sources) Ventriculoperitoneal shunt in situ; Translations: [Presence of cerebrospinal fluid drainage device] Onset: 08-11-19 97 11-15-2021 Chronic Other nervous system disorders (3 sources) Hydrocephalus 11-15-2019 Chronic Other nervous system disorders (1 source) Presence of cerebrospinal fluid drainage device; Translations: [S/P ventriculoperitoneal shunt] Onset: 11-15-19 Chronic Other nervous system disorders (1 source) Lesion of ulnar nerve, left upper limb; Translations: [Ulnar neuropathy at elbow of left upper extremity] Onset: 03-25-20 Chronic Other nervous system disorders (1 source) Lesion of ulnar nerve, right upper limb; Translations: [Ulnar neuropathy at elbow of right upper extremity] Onset: 03-25-20 Chronic Other nervous system disorders (5 sources) Neurological muscle weakness; Translations: [Myoneural disorder, unspecified] 12-01-2022 Episodic Other nervous system disorders (1 source) Myoneural disorder, unspecified; Translations: [Other diseases of respiratory system, not elsewhere classified] 12-01-2022 Episodic Other nutritional; endocrine; and metabolic disorders (1 source) Failure to thrive 04-02-2019 Episodic Other screening for suspected conditions (not mental disorders or infectious disease) (16 sources) Patient encounter status; Translations: [Encounter for screening for lipoid disorders] Onset: 03-25-20 Episodic Other skin disorders (1 source) Pigmented skin lesion 10-26-2023 Episodic Other upper respiratory infections (1 source) Sinusitis; Translations: [Chronic sinusitis, unspecified] 01-24-2025 Chronic Other upper respiratory infections (1 source) Viral upper respiratory tract infection; Translations: [Acute upper respiratory infection, unspecified] 02-02-2025 Episodic Paralysis (6 sources) Paraplegia; Translations: [Paraplegia, unspecified] Onset: 03-25-20 Chronic Residual codes; unclassified (20 sources) Obstructive sleep apnea syndrome; Translations: [Obstructive sleep apnea (adult) (pediatric)] Onset: 11-15-1911-15-2021 Chronic Residual codes; unclassified (2 sources) Obstructive sleep apnea (adult) (pediatric); Translations: [Obstructive sleep apnea (adult)(pediatric)] Onset: 11-15-1912-01-2022 Chronic Residual codes; unclassified (3 sources) Gastrointestinal tube in situ 11-15-2019 Episodic Residual codes; unclassified (3 sources) Immunization due 08-10-2021 Episodic Residual codes; unclassified (1 source) Postoperative state; Translations: [Other specified postprocedural states] Episodic Residual codes; unclassified (2 sources) Screening due 11-09-2022 Episodic Residual codes; unclassified (1 source) Tube feeding diet; Translations: [Other specified health status] 01-27-2025 Episodic Respiratory failure; insufficiency; arrest (adult) (12 sources) Chronic respiratory failure; Translations: [Chronic respiratory failure, unspecified whether with hypoxia or hypercapnia] 12-01-2022 Chronic Comment on above: Chronic hypoxic and possibly hypercarbic respiratory failure, Chronic ventilator dependence due to severe scoliosis, spina bifida, hydrocephalus with SPRAY PILOT shunt, thoracic restrictions due to developmental abnormalities and rods - He did not start 3 L/min oxygen as ordered because of [employer] delivering the wrong equipment. He needs a electric portable concentrator, not an electric stationary concentrator as he was delivered. We will try again with [employer] today to obtain the right equipment that will allow him sufficient mobility that he can get outside the home on nasal O2 at 3 L/min during the day. A machine similar to an easy go or Innogen would be adequate, with continuous flow, not pulse flow. - ABG on 3 L/min, spontaneous respiration (i.e. off trilogy) when the correct portable oxygen concentrator equipment is in place.Severe obstructive sleep and/or central apnea, diagnosed clinically at [facility] no prior sleep study. - Empiric adjustment based on the trilogy download seems to have resulted in improved sleep quality and daytime energy.Intractable daily nausea vomiting, gradually increasing, tentative surgery date March 14 for hernia reduction and colostomy revision, [facility].Severe protein calorie malnutrition, he is on a combination of p.o. intake and PEG tube, but his food intake is limited by abdominal distention and discomfort, with frequent nausea and vomiting. He continues on Dulcolax. Today on exam his abdomen was not distended, but due to his severe musculoskeletal abnormalities any distention would likely impinge on his thoracic volume. 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 I will order this with [facility] when we make his trilogy adjustments.-The patient is fully able to expectorate respiratory secretions as needed, and does not need suctioning, postural drainage or secretion management at this time. This should be monitored over time and adjusted as needed for his next respiratory infection. - Continue albuterol 2 puffs as needed, he uses it less than once every 6 weeks and more when he has a respiratory infection.-Atrovent nasal sprays prescription as needed nasal congestion during colds.- Parents were advised that if patient is nauseous with a full stomach, they may acutely pull g-tube gastric contents via a syringe for relief PRN to prevent large volume vomiting and aspiration. I will defer to primary and DDSI to reassess timing and quantity of tube feedings. -Sleep reclined maximum 45 degrees to prevent regurgitationFollow up in 3 months. Screening and history of mental health and substance abuse codes (2 sources) Tobacco use and exposure - finding 11-09-2022 Chronic Skin and subcutaneous tissue infections (1 source) Cellulitis of buttock; Translations: [Cellulitis of buttock] Episodic Thyroid disorders (1 source) Goiter 08-19-2022 Chronic Unclassified (3 sources) H/O: limb amputation 11-15-2019 Unclassified (2 sources) Failure to thrive; Translations: [Failure to thrive] 04-24-2019 Unclassified (2 sources) Intellectual disability 11-10-2022 Unclassified (1 source) Patient encounter status 07-04-2024 Urinary tract infections (6 sources) Urinary tract infectious disease; Translations: [Urinary tract infection, site not specified] 04-02-2019 Episodic Past or Other Problems Problem Classification Problem Date Documented Da te Episodic/Chronic Abdominal hernia (20 sources) Parastomal hernia; Translations: [Parastomal hernia without obstruction or gangrene] Onset: 11-04-2020 Resolved: 03-25-2023 11-13-2020 Episodic Acute posthemorrhagic anemia (20 sources) Anemia following acute postoperative blood loss; Translations: [Acute posthemorrhagic anemia] Onset: 05-17-2019 05-17-2019 Episodic Calculus of urinary tract (20 sources) Kidney stone; Translations: [Calculus of kidney] Onset: 10-03-2016 01-08-2020 Episodic Complications of surgical procedures or medical care (16 sources) Postoperative hypovolemic shock; Translations: [Other postprocedural shock, initial encounter] Onset: 11-06-2020 Resolved: 03-25-2023 11-13-2020 Episodic Fluid and electrolyte disorders (14 sources) Metabolic acidosis; Translations: [Metabolic acidosis] Onset: 03-14-2023 Resolved: 03-18-2023 03-18-2023 Episodic Intestinal obstruction without hernia (2 sources) Small bowel obstruction; Translations: [Unspecified intestinal obstruction, unspecified as to partial versus complete obstruction] Onset: 11-02-2020 11-13-2020 Episodic Nausea and vomiting (2 sources) Intractable nausea and vomiting; Translations: [Nausea with vomiting, unspecified] Onset: 06-13-2017 06-13-2017 Episodic Nutritional deficiencies (2 sources) Nutritional deficiency state; Translations: [Nutritional deficiency, unspecified] Onset: 01-07-2019 05-16-2019 Episodic Other gastrointestinal disorders (20 sources) Dysphagia; Translations: [Dysphagia, unspecified] Onset: 03-17-2023 03-25-2023 Episodic Other injuries and conditions due to external causes (20 sources) Friction dermatosis; Translations: [Other injury of unspecified body region, initial encounter] Onset: 03-17-2023 03-25-2023 Episodic Other male genital disorders (2 sources) Disorder of penis; Translations: [Other specified disorders of penis] Onset: 05-23-2013 Resolved: 06-13-2017 06-13-2017 Chronic Other nervous system disorders (2 sources) Postoperative pain ; Translations: [Other acute postprocedural pain] Onset: 05-06-2015 Resolved: 10-12-2015 10-12-2015 Episodic Other nervous system disorders (14 sources) Acute postoperative pain; Translations: [Other acute postprocedural pain] Onset: 03-14-2023 Resolved: 03-25-2023 03-25-2023 Episodic Pneumonia (except that caused by tuberculosis or sexually transmitted disease) (2 sources) Pneumonia; Translations: [Pneumonia, unspecified organism] Onset: 05-31-2019 Resolved: 05-12-2020 05-12-2020 Episodic Respiratory failure; insufficiency; arrest (adult) (4 sources) Hypoxemic respiratory failure; Translations: [Respiratory failure, unspecified with hypoxia] Onset: 05-31-2019 Resolved: 06-09-2019 06-01-2019 Episodic Septicemia (except in labor) (16 sources) Sepsis; Translations: [Sepsis, unspecified organism] Onset: 01-04-2020 Resolved: 01-08-2020 06-09-2019 Episodic Superficial injury; contusion (2 sources) Blister of cheek without infection; Translations: [Blister (nonthermal) of other part of head, initial encounter] Onset: 05-17-2019 05-17-2019 Episodic Results Test Name Value Interpretation Reference Range Facility Pulmonary Visit Reporton Pulmonary Visit Report [facility] [address] [place] [address] OFFICE VISIT Date of Service: 02/27/25 MR#: [id number] Acct: [id number] Name: MARCOS AGUIRRE Rep #: [id number] : 1995 Provider: COSMO Peterson Age/Sex: 29/M Location: [facility] Status: Signed Assessment and Plan Assessment and Plan (1) Chronic respiratory failure with hypoxia and hypercapnia: Status: Chronic Plan: He is using and benefiting from noninvasive ventilator. However, he is experiencing frequent morning headaches and some persistent daytime fatigue. I will ask the [employer] to send a respiratory therapist out to evaluate his machine. He may benefit from some slight prescription changes. Plan to return to the office in 3 months to evaluate his response to that. I explained to him that because he is on a noninvasive ventilator we are not able to send him to a sleep lab for titration study. He and his mother both convey understanding. They are agreeable with this plan. (2) Neuromuscular respiratory weakness: Status: Chronic Plan: Managed with noninvasive ventilator for sleep and rescue. (3) Spina bifida: Status: Chronic Qualifiers: Spinal region: thoracic Presence of hydrocephalus: with hydrocephalus Qualified Code(s): Q05.1 - Thoracic spina bifida with hydrocephalus Plan: Complicates exam, plan, care and prognosis. (4) Depression: Status: Acute Qualifiers: Depression Type: unspecified Qualified Code(s): F32.A - Depression, unspecified Plan: The patient is reporting persistent daytime hypersomnia but describes it as not feeling like going to work. This could be a sign of depression. It was noted previously that he was diagnosed with failure to thrive, also could be similar. Will continue to monitor. If the persistent daytime fatigue and feeling as though he does not want to go to work is not improved with minor changes to his noninvasive ventilator prescription, I would defer further management back to his PCP to evaluate him for depression. Plan Details Additional Comments: This note was generated with [employer] dictation software. It may contain incorrect words, spelling, and punctuation that were not noted in checking the note before signing. Follow Up: 3 Months ([facility]) HPI NIGEL Follow up Chief Complaint: Morning headaches HPI Comments Details: This patient presents to the office today for follow-up of his chronic hypoxic respiratory failure secondary to neuromuscular weakness caused by spina bifida. He is in wheelchair, currently on room air and accompanied today by his mother. He has not recently been seen in the ED or urgent care for any respiratory illness. He has not required any antibiotics or prednisone for any breathing problems. He denies any difficulty with shortness of breath. He has an occasional dry cough. He has postnasal drip. He denies any wheezing, chest tightness, chest pain or palpitations. He has not had any fever, chills or body aches. He reports using his noninvasive ventilator with all sleep. He is experiencing some daytime fatigue. He states that some mornings he does not feel like going to work. When asked to elaborate on that, the patient states that he goes to daycare. He is also experiencing morning headaches. He denies any difficulty with dry mouth. He is not experiencing mask leaks. Compliance report for the past 30 days shows 100% compliance with an average use of 13.6 hours per night. Intake Vital Signs 02/20/24 20:22 02/27/25 09:01 Height 5 ft 2 in 5 ft 2 in Weight: 101 lb BMI 18.4 BP 137/96 H Blood Pressure Location Lt brachial Position Sitting Respiration 18 Pulse 80 Pulse Source Monitor Temp 97.3 F L Temperature Source Temporal Artery Pulse Oximetry (%) 96 Oxygen Delivery Method room air Intake Visit Reasons: NIGEL Follow up Chief Complaint: postop Land Acquisition Specialist Required: No DME Vendor: Fan Accompanied by: Mother Allergies bacitracin Allergy (Mild, Verified 02/27/25 14:53) unknown latex Allergy (Verified 02/27/25 14:53) Unknown levofloxacin (Levofloxacin) Allergy (Verified 02/27/25 14:53) Rash sulfamethoxazole (From Bactrim) Allergy (Verified 02/27/25 14:53) Rash trimethoprim (From Bactrim) Allergy (Verified 02/27/25 14:53) Rash Medications ???Medication ???Instructions ???Recorded ???Confirmed ???Type nut.tx impaired digestive ml PO 12/01/22 02/27/25 History fxn-fiber 0.07 gram-1.5 kcal/mL oral liquid (Vital Peptide 1.5 Shine) cholecalciferol (vitamin D3) 10 10 mcg PO QDAY 02/27/25 02/27/25 H istory mcg (400 unit) chewable tablet diltiazem HCl 240 mg capsule,24 240 mg PO QDAY 02/27/25 02/27/25 H istory hr,extended release [facility] Medical History (Reviewed 02/27/25 @ 15:04 by Alexa Peterson SALES FLOOR TEAM LEADER, SALES FLOOR TEAM LEADER (more content not included)... Normal [facility] 25-hydroxyvitamin D3 [Mass/V ol]on 01-24-2025 Interpretation and review of laboratory results Normal [facility] The reference range interval was based on an analysis of samples from healthy adults and may not pertain to children from 0-18 years old. [facility] CBC W Auto Differential pane l (Bld)on 01-24-2025 Basophils (Bld) [#/Vol] 0.05 10*3/uL [facility] Basophils/100 WBC (Bld) 0.6 % [facility] Differential cell count method Nom (Bld) Auto [facility] Eosinophils (Bld) [#/Vol] 0.17 10*3/uL [facility] Eosinophils/100 WBC (Bld) 1.9 % [facility] Erythrocyte distribution width (RBC) [Ratio] 12.2 % 11.5 - 15.0 % [facility] Hematocrit (Bld) [Volume fraction] 46.6 % 39.0 - 51.0 % [facility] Hemoglobin (Bld) [Mass/Vol] 15.6 g/dL 13.0 - 17.0 g/dL [facility] Immature granulocytes (Bld) [#/Vol] 0.03 10*3/uL [facility] Immature granulocytes/100 WBC (Bld) 0.3 % [facility] Interpretation and review of laboratory results Abnormal [facility] Lymphocytes (Bld) [#/Vol] 2.57 10*3/uL [facility] Lymphocytes/100 WBC (Bld) 28.3 % [facility] MCH (RBC) [Entitic mass] 27.9 pg 26.0 - 34.0 pg [facility] MCHC (RBC) [Mass/Vol] 33.5 g/dL 30.5 - 36.0 g/dL [facility] MCV (RBC) [Entitic vol] 83.2 fL 80.0 - 100.0 fL [facility] Monocytes (Bld) [#/Vol] 0.82 10*3/uL [facility] Monocytes/100 WBC (Bld) 9 % [facility] Neutrophils (Bld) [#/Vol] 5.43 10*3/uL [facility] Neutrophils/100 WBC (Bld) 59.9 % [facility] Nucleated RBC (Bld) [#/Vol] NINF [facility] Nucleated RBC/100 WBC (Bld) [Ratio] 0 % /100 WBC [facility] Platelet mean volume (Bld) [Entitic vol] 8.9 fL Low 9.0 - 12.7 fL [facility] Platelets (Bld) [#/Vol] 313 10*3/uL [facility] RBC (Bld) [#/Vol] 5.6 10*6/uL 4.20 - 6.0 0 m/uL [facility] WBC (Bld) [#/Vol] 9.07 10*3/uL [facility] FERRITINon 01-24-2025 Ferritin [Mass/Vol] 93.7 ng/mL 30.3 - 5 65.7 ng/mL [facility] Ferritin [Mass/Vol]on 2024 Interpretation and review of laboratory results Normal [facility] Hepatic function 2000 panelo n 01-24-2025 Albumin [Mass/Vol] 4.3 g/dL 3.9 - 4.9 g/dL [facility] ALP [Catalytic activity/Vol] 107 U/L 38 - 113 U/L [facility] ALT [Catalytic activity/Vol] 29 U/L 10 - 54 U/L [facility] AST [Catalytic activity/Vol] 22 U/L 14 - 40 U/L [facility] Bilirubin [Mass/Vol] 0.3 mg/dL 0.2 - 1 .3 mg/dL [facility] Bilirubin.conjugated [Mass/Vol] 0.1 mg/dL NINF - 0.3 mg/dL [facility] Protein [Mass/Vol] 8.4 g/dL High 6.3 - 8.0 g/dL [facility] Lipid 1996 panelon Cholesterol [Mass/Vol] 162 mg/dL NINF - 200 mg/dL [facility] Comment on above: <200 mg/dL, Desirabl e 200-239 mg/dL, Borderline high >239 mg/dL, High Cholesterol in HDL [Mass/Vol] 37 mg/dL Low 39 - PINF mg/dL [facility] Comment on above: 40-59 mg/dL, Accepta ble >59 mg/dL, High: Negative risk factor for coronary heart disease <40 mg/dL, Low: Positive risk factor for coronary heart disease Cholesterol in LDL [Mass/Vol] 104 mg/dL High NINF - 100 mg/dL [facility] Comment on above: <100 mg/dL, Optimal 100-129 mg/dL, Near optimal/above optimal 130-159 mg/dL, Borderline high 160-189 mg/dL, High >189 mg/dL, Very high Secondary prevention optimal LDL Cholesterol levels are recommended to be < 70 mg/dL Cholesterol in LDL/Cholesterol in HDL [Mass ratio] 2.81 {ratio} High NINF - 2.54 [facility] Comment on above: Reference: 1. National Cholesterol Education Program ATP III Guideline At-A-Glance Quick Desk Reference: National Heart, Lung, and Blood [place]. National Institutes of Health. 2001: NIH Publication No. 01-3305. 2. An International Atherosclerosis Society position paper: global recommendations for the management of dyslipidemia: executive summary, Atherosclerosis. 2014: 232(2):410-413. Cholesterol in VLDL [Mass/Vol] 21 mg/dL NINF - 30 mg/dL [facility] Cholesterol non HDL [Mass/Vol] 125 mg/dL NINF - 130 mg/dL [facility] Comment on above: <130 mg/dL, Optimal 130-159 mg/dL, Near optimal/above optimal 160-189 mg/dL, Borderline high 190-219 mg/dL, High >219 mg/dL, Very high Secondary prevention optimal non HDL Cholesterol levels are recommended to be <100 mg/dL Cholesterol.total/Ch olesterol in HDL [Mass ratio] 4.38 {ratio} NINF - 5.10 [facility] Fasting Time 1 hrs [facility] Triglyceride [Mass/Vol] 107 mg/dL NINF - 150 mg/dL [facility] Comment on above: <150 mg/dL, Normal 150-199 mg/dL, Borderline high 200-499 mg/dL, High >499 mg/dL, Very high MAGNESIUMon 01-24-2025 Magnesium [Mass/Vol] 2 mg/dL 1.7 - 2 .3 mg/dL [facility] Magnesium [Mass/Vol]on 01-24 Interpretation and review of laboratory results Normal [facility] No Panel Informationon 01-24 Interpretation and review of laboratory results Abnormal [facility] US Kidney - bilateral and Ur inary bladderon 01-24-2025 IMPRESSION: No hydronephrosis. No definite echogenic, shadowing stones although assessment of the LEFT kidney is technically very limited. Access Registrar: KENZIE Transcribe Date/Time: Jan 24 2025 1:51P Dictated by : RONNIE MERCADO MD This examination was interpreted and the report reviewed and electronically signed by: RONNIE MERCADO MD on Jan 24 2025 1:53PM [facility] DIVISION OF RADIOLOGY * * *Final Report* * * DATE OF EXAM: Jan 24 2025 1:47PM ALTAF 1055 - US KIDNEY/BLADDER / PROCEDURE REASON: multiple diagnoses * * * * Physician Interpretation * * * * EXAMINATION: RENAL ULTRASOUND CLINICAL HISTORY: Neurogenic bladder, presence of suprapubic catheter. TECHNIQUE: Sonography of the kidneys and urinary bladder was performed. Images were obtained and stored in a permanent archive. MQ: UR_1 COMPARISON: Renal ultrasound, 01/26/2024. CT abdomen/pelvis, 03/21/2024. RESULT: Right Kidney: -Renal length: 9.0 cm -Parenchyma: Normal parenchymal echogenicity. Normal parenchymal thickness. -Collecting system: No hydronephrosis. -Calculus: No echogenic, shadowing calculus. Diffusely increased echogenicity along the renal sinus is favored to be prominent renal sinus fat rather than a large stone. -Lesion: None. Left Kidney: Very limited sonographic window. -Renal length: 9.2 cm -Parenchyma: Normal parenchymal echogenicity. Normal parenchymal thickness. -Collecting system: No hydronephrosis. -Calculus: No echogenic, shadowing calculus. -Lesion: None. Bladder: Completely collapsed/not visualized. DIVISION OF RADIOLOGY Provider, Justyna Tyson - 01/24/2025 * * *Final Report* * * DATE OF EXAM: Jan 24 2025 1:47PM [facility]TAF 1055 - US KIDNEY/BLADDER / PROCEDURE REASON: multiple diagnoses * * * * Physician Interpretation * * * * EXAMINATION: RENAL ULTRASOUND CLINICAL HISTORY: Neurogenic bladder, presence of suprapubic catheter. TECHNIQUE: Sonography of the kidneys and urinary bladder was performed. Images were obtained and stored in a permanent archive. MQ: UR_1 COMPARISON: Renal ultrasound, 01/26/2024. CT abdomen/pelvis, 03/21/2024. RESULT: Right Kidney: -Renal length: 9.0 cm -Parenchyma: Normal parenchymal echogenicity. Normal parenchymal thickness. -Collecting system: No hydronephrosis. -Calculus: No echogenic, shadowing calculus. Diffusely increased echogenicity along the renal sinus is favored to be prominent renal sinus fat rather than a large stone. -Lesion: None. Left Kidney: Very limited sonographic window. -Renal length: 9.2 cm -Parenchyma: Normal parenchymal echogenicity. Normal parenchymal thickness. -Collecting system: No hydronephrosis. -Calculus: No echogenic, shadowing calculus. -Lesion: None. Bladder: Completely collapsed/not visualized. IMPRESSION IMPRESSION: No hydronephrosis. No definite echogenic, shadowing stones although assessment of the LEFT kidney is technically very limited. Access Registrar: [facility] EDGEWOODNoemi Transcribe Date/Time: Jan 24 2025 1:51P Dictated by : RONNIE MERCADO MD This examination was interpreted and the report reviewed and electronically signed by: RONNIE MERCADO MD on Jan 24 2025 1:53PM EST [facility] Radiology Study observation (narrative) [facility] US Kidney - bilateral and Ur inary bladderOrdered By: [facility] Provider on 01-24-2025 [facility] VITAMIN D 25 HYDROXYon 01-24 25-hydroxyvitamin D3 [Mass/Vol] 76.1 ng/mL 31.0 - 80.0 ng/mL [facility] Comment on above: Classification of 25 [place] Vitamin D status: Deficiency/Insufficiency: < or = 30 ng/ml. Sufficiency/Optimal Levels: 31-80 ng/mL Toxicity: > 100 ng/mL. Test performed by chemiluminescent immunoassay. .Auto Diffon 08-05-2024 Basophil, Absolute 0.1 10 3/mcL Normal 0.0-0.2 [facility] Comment on above: Performed By: #### P BNP, TSH, ANEU, A1C, CMP, LIPID, FT4, CBC, GFR, MG, ADIFF #### [address] [address] #### B12, HCV1 #### [address] [address] Basophils/100 WBC (Bld) 0.7 % Normal 0.0-2.5 [facility] Comment on above: Performed By: #### P BNP, TSH, ANEU, A1C, CMP, LIPID, FT4, CBC, GFR, MG, ADIFF #### [place] [address] #### B12, HCV1 #### [address] [address] Eosinophil, Absolute 0.2 10 3/mcL Normal 0.0-0.7 [facility] Comment on above: Performed By: #### P BNP, TSH, ANEU, A1C, CMP, LIPID, FT4, CBC, GFR, MG, ADIFF #### [place] [address] #### B12, HCV1 #### [address] [address] Eosinophils/100 WBC (Bld) 2.2 % Normal 0.0-7.0 [facility] Comment on above: Performed By: #### P BNP, TSH, ANEU, A1C, CMP, LIPID, FT4, CBC, GFR, MG, ADIFF #### [address] [address] #### B12, HCV1 #### [address] [address] Lymphocyte, Absolute 2.7 10 3/mcL Normal 0.9-4.3 [facility] Comment on above: Performed By: #### P BNP, TSH, ANEU, A1C, CMP, LIPID, FT4, CBC, GFR, MG, ADIFF #### [place] [address] #### B12, HCV1 #### [address] [address] Lymphocytes/100 WBC (Bld) 32.4 % Normal 20.0-40.0 [facility] Comment on above: Performed By: #### P BNP, TSH, ANEU, A1C, CMP, LIPID, FT4, CBC, GFR, MG, ADIFF #### [address] [address] #### B12, HCV1 #### [address] [address] Monocyte, Absolute 0.7 10 3/mcL Normal 0.1-1.4 [facility] Comment on above: Performed By: #### P BNP, TSH, ANEU, A1C, CMP, LIPID, FT4, CBC, GFR, MG, ADIFF #### [address] [address] #### B12, HCV1 #### [address] [address] Monocytes/100 WBC (Bld) 8.0 % Normal 2.0-13.0 [facility] Comment on above: Performed By: #### P BNP, TSH, ANEU, A1C, CMP, LIPID, FT4, CBC, GFR, MG, ADIFF #### [address] [address] #### B12, HCV1 #### [address] [address] Neutrophils/100 WBC (Bld) 56.7 % Normal 50.0-75.0 [facility] Comment on above: Performed By: #### P BNP, TSH, ANEU, A1C, CMP, LIPID, FT4, CBC, GFR, MG, ADIFF #### [address] [address] #### B12, HCV1 #### [address] [address] .GFRon 08-05-2024 GFR Non- 168 ml/min/1.73sqm Normal [facility] Comment on above: Result Comment: GFR Population mean for , Non- Americans Ages 20-29 = 116 mL/min/1.73 sq.m. Ages 30-39 = 107 mL/min/1.73 sq.m. Ages 40-49 = 99 mL/min/1.73 sq.m. Ages 50-59 = 93 mL/min/1.73 sq.m. Ages 60-69 = 85 mL/min/1.73 sq.m. Ages 70+ = 75 mL/min/1.73 sq.m. Chronic Kidney Disease: Less than 60 mL/min/1.73 square meters End Stage Renal Disease: Less than 15 mL/min/1.73 square meters Performed By: #### P BNP, TSH, ANEU, A1C, CMP, LIPID, FT4, CBC, GFR, MG, ADIFF #### [address] [address] #### B12, HCV1 #### [address] [address] GFR 204 ml/min/1.73sqm Normal [facility] Comment on above: Result Comment: GFR Population mean for , Non- Americans Ages 20-29 = 116 mL/min/1.73 sq.m. Ages 30-39 = 107 mL/min/1.73 sq.m. Ages 40-49 = 99 mL/min/1.73 sq.m. Ages 50-59 = 93 mL/min/1.73 sq.m. Ages 60-69 = 85 mL/min/1.73 sq.m. Ages 70+ = 75 mL/min/1.73 sq.m. Chronic Kidney Disease: Less than 60 mL/min/1.73 square meters End Stage Renal Disease: Less than 15 mL/min/1.73 square meters Performed By: #### P BNP, TSH, ANEU, A1C, CMP, LIPID, FT4, CBC, GFR, MG, ADIFF #### [address] [address] #### B12, HCV1 #### [address] [address] .NEUABSon 08-05-2024 Neutrophil, Absolute 4.6 10 3/mcL Normal 2.3-8.1 [facility] Comment on above: Performed By: #### P BNP, TSH, ANEU, A1C, CMP, LIPID, FT4, CBC, GFR, MG, ADIFF #### [address] [address] #### B12, HCV1 #### [address] [address] A1Con 08-05-2024 Glucose [Mass/Vol] 103 mg/dL Normal [facility] Comment on above: Result Comment: Mary mated Average Glucose calculated by equation ((28.7xA1C)-46.7) Estimated average glucose (eAG) is a calculated value from Hemoglobin A1C and is sales account representative of the average blood glucose level in the last 2-3 month period. Normal range: less than 114 mg/dL Performed By: #### P BNP, TSH, ANEU, A1C, CMP, LIPID, FT4, CBC, GFR, MG, ADIFF #### [address] [address] #### B12, HCV1 #### [place] [address] HbA1c (Bld) [Mass fraction] 5.2 % Normal 4.3-6.4 [facility] Comment on above: Performed By: #### P BNP, TSH, ANEU, A1C, CMP, LIPID, FT4, CBC, GFR, MG, ADIFF #### [address] [address] #### B12, HCV1 #### [place] [address] B12on 08-05-2024 Cobalamin (Vitamin B12) [Mass/Vol] 1086 pg/mL High 211-911 [facility] Comment on above: Performed By: #### P BNP, TSH, ANEU, A1C, CMP, LIPID, FT4, CBC, GFR, MG, ADIFF #### [address] [address] #### B12, HCV1 #### [place] [id number] CBCon 08-05-2024 Erythrocyte distribution width (RBC) [Ratio] 13.2 % Normal 11.5-15.5 [facility] Comment on above: Performed By: #### P BNP, TSH, ANEU, A1C, CMP, LIPID, FT4, CBC, GFR, MG, ADIFF #### [place] [address] #### B12, HCV1 #### [place] [address] Hematocrit (Bld) [Volume fraction] 47.4 % Normal 40.0-52.0 [facility] Comment on above: Performed By: #### P BNP, TSH, ANEU, A1C, CMP, LIPID, FT4, CBC, GFR, MG, ADIFF #### [place] [address] #### B12, HCV1 #### [place] [address] Hgb 15.9 G/dL Normal 13.0-17.5 [facility] Comment on above: Performed By: #### P BNP, TSH, ANEU, A1C, CMP, LIPID, FT4, CBC, GFR, MG, ADIFF #### [place] [address] #### B12, HCV1 #### [place] [address] MCH (RBC) [Entitic mass] 28.4 pg Normal 27.0-33.0 [facility] Comment on above: Performed By: #### P BNP, TSH, ANEU, A1C, CMP, LIPID, FT4, CBC, GFR, MG, ADIFF #### [place] [address] #### B12, HCV1 #### [place] [address] MCHC 33.6 G/dL Normal 32.0-36.0 [facility] Comment on above: Performed By: #### P BNP, TSH, ANEU, A1C, CMP, LIPID, FT4, CBC, GFR, MG, ADIFF #### [place] [address] #### B12, HCV1 #### [place] [address] MCV (RBC) [Entitic vol] 84.4 fL Normal 81.0-100.0 [facility] Comment on above: Performed By: #### P BNP, TSH, ANEU, A1C, CMP, LIPID, FT4, CBC, GFR, MG, ADIFF #### [place] [address] #### B12, HCV1 #### [address] [address] Platelet 348 10 3/mcL Normal 150-450 [facility] Comment on above: Performed By: #### P BNP, TSH, ANEU, A1C, CMP, LIPID, FT4, CBC, GFR, MG, ADIFF #### [place] [address] #### B12, HCV1 #### [place] [address] Platelet mean volume (Bld) [Entitic vol] 7.1 fL Normal 6.4-10.5 [facility] Comment on above: Performed By: #### P BNP, TSH, ANEU, A1C, CMP, LIPID, FT4, CBC, GFR, MG, ADIFF #### [place] [address] #### B12, HCV1 #### [place] [address] RBC 5.62 10 6/mcL Normal 4.50-6.00 [facility] Comment on above: Performed By: #### P BNP, TSH, ANEU, A1C, CMP, LIPID, FT4, CBC, GFR, MG, ADIFF #### [place] [address] #### B12, HCV1 #### [place] [address] WBC 8.2 10 3/mcL Normal 4.5-10.8 [facility] Comment on above: Performed By: #### P BNP, TSH, ANEU, A1C, CMP, LIPID, FT4, CBC, GFR, MG, ADIFF #### [place] [address] #### B12, HCV1 #### [place] [address] CMPon 08-05-2024 Albumin Level 4.4 G/dL Normal 3.5-5.0 [facility] Comment on above: Performed By: #### P BNP, TSH, ANEU, A1C, CMP, LIPID, FT4, CBC, GFR, MG, ADIFF #### [address] [address] #### B12, HCV1 #### [address] [address] Albumin/Globulin [Mass ratio] 1.0 {ratio} Low 1.1-2.5 [facility] Comment on above: Performed By: #### P BNP, TSH, ANEU, A1C, CMP, LIPID, FT4, CBC, GFR, MG, ADIFF #### [address] [address] #### B12, HCV1 #### [place] [address] ALP [Catalytic activity/Vol] 112 U/L Normal 40-135 [facility] Comment on above: Performed By: #### P BNP, TSH, ANEU, A1C, CMP, LIPID, FT4, CBC, GFR, MG, ADIFF #### [address] [address] #### B12, HCV1 #### [address] [address] ALT [Catalytic activity/Vol] 41 U/L Normal 16-63 [facility] Comment on above: Performed By: #### P BNP, TSH, ANEU, A1C, CMP, LIPID, FT4, CBC, GFR, MG, ADIFF #### [address] [address] #### B12, HCV1 #### [address] [address] AST [Catalytic activity/Vol] 19 U/L Normal 10-40 [facility] Comment on above: Performed By: #### P BNP, TSH, ANEU, A1C, CMP, LIPID, FT4, CBC, GFR, MG, ADIFF #### [address] [address] #### B12, HCV1 #### [address] [address] Bili Total 0.5 mg/dL Normal 0.2-1.0 [facility] Comment on above: Result Comment: Use of this assay is not recommended for patients undergoing treatment with eltrombopag due to the potential for falsely elevated results. Performed By: #### P BNP, TSH, ANEU, A1C, CMP, LIPID, FT4, CBC, GFR, MG, ADIFF #### [place] [address] #### B12, HCV1 #### [place] [id number] BUN/Creatinine Ratio 19 ratio Normal 7-27 [facility] Comment on above: Performed By: #### P BNP, TSH, ANEU, A1C, CMP, LIPID, FT4, CBC, GFR, MG, ADIFF #### [place] [address] #### B12, HCV1 #### [address] [address] Calcium [Mass/Vol] 10.0 mg/dL Normal 8.4-10.2 [facility] Comment on above: Performed By: #### P BNP, TSH, ANEU, A1C, CMP, LIPID, FT4, CBC, GFR, MG, ADIFF #### [place] [address] #### B12, HCV1 #### [address] [address] Chloride [Moles/Vol] 100 mmol/L Normal 98-107 [facility] Comment on above: Performed By: #### P BNP, TSH, ANEU, A1C, CMP, LIPID, FT4, CBC, GFR, MG, ADIFF #### [address] [address] #### B12, HCV1 #### [address] [address] CO2 [Moles/Vol] 25 mmol/L Normal 22-29 [facility] Comment on above: Performed By: #### P BNP, TSH, ANEU, A1C, CMP, LIPID, FT4, CBC, GFR, MG, ADIFF #### [place] [address] #### B12, HCV1 #### [place] [address] Creatinine [Mass/Vol] 0.58 mg/dL Low 0.70-1.30 [facility] Comment on above: Result Comment: Test ing performed on Siemens Dimension EXL analyzer using a modified kinetic Skyler technique. Performed By: #### P BNP, TSH, ANEU, A1C, CMP, LIPID, FT4, CBC, GFR, MG, ADIFF #### [place] [address] #### B12, HCV1 #### [place] [address] Electrolyte Balance 12.0 mEq/L Normal 4.0-15.0 [facility] Comment on above: Performed By: #### P BNP, TSH, ANEU, A1C, CMP, LIPID, FT4, CBC, GFR, MG, ADIFF #### [place] [address] #### B12, HCV1 #### [place] [address] Globulin 4.3 G/dL Normal [facility] Comment on above: Performed By: #### P BNP, TSH, ANEU, A1C, CMP, LIPID, FT4, CBC, GFR, MG, ADIFF #### [place] [address] #### B12, HCV1 #### [place] [address] Glucose [Mass/Vol] 88 mg/dL Normal 70-105 [facility] Comment on above: Performed By: #### P BNP, TSH, ANEU, A1C, CMP, LIPID, FT4, CBC, GFR, MG, ADIFF #### [place] [address] #### B12, HCV1 #### [address] [address] Potassium [Moles/Vol] 3.8 mmol/L Normal 3.5-5.1 [facility] Comment on above: Performed By: #### P BNP, TSH, ANEU, A1C, CMP, LIPID, FT4, CBC, GFR, MG, ADIFF #### [place] [address] #### B12, HCV1 #### [place] [address] Sodium [Moles/Vol] 137 mmol/L Normal 136-145 [facility] Comment on above: Performed By: #### P BNP, TSH, ANEU, A1C, CMP, LIPID, FT4, CBC, GFR, MG, ADIFF #### [place] [address] #### B12, HCV1 #### [place] [address] Total Protein 8.7 G/dL High 6.4-8.2 [facility] Comment on above: Performed By: #### P BNP, TSH, ANEU, A1C, CMP, LIPID, FT4, CBC, GFR, MG, ADIFF #### [place] [address] #### B12, HCV1 #### [place] [address] Urea nitrogen [Mass/Vol] 11 mg/dL Normal 7-18 [facility] Comment on above: Performed By: #### P BNP, TSH, ANEU, A1C, CMP, LIPID, FT4, CBC, GFR, MG, ADIFF #### [place] [address] #### B12, HCV1 #### [place] [address] FT4on 08-05-2024 Free T4 [Mass/Vol] 0.95 ng/dL Normal 0.76-1.46 [facility] Comment on above: Performed By: #### P BNP, TSH, ANEU, A1C, CMP, LIPID, FT4, CBC, GFR, MG, ADIFF #### [address] [address] #### B12, HCV1 #### [address] [address] HCVon 08-05-2024 Hep C Ab Non-Reactive Normal Non-Reactive [facility] Comment on above: Performed By: #### P BNP, TSH, ANEU, A1C, CMP, LIPID, FT4, CBC, GFR, MG, ADIFF #### [address] [address] #### B12, HCV1 #### [place] [address] Hep C Ab Int Normal [facility] Comment on above: Result Comment: Nonr eactive: Samples with a value < 0.80 are considered nonreactive (negative) for antibodies to HCV. A negative test result does not exclude the possibility of exposure to or infection with HCV. HCV antibodies may be undetectable in some stages of the infection and in some clinical conditions. See Interp Performed By: #### P BNP, TSH, ANEU, A1C, CMP, LIPID, FT4, CBC, GFR, MG, ADIFF #### [address] [address] #### B12, HCV1 #### [place] [address] LABORATORYOrdered By: SYSTEM SYSTEM on 08-05-2024 Albumin BCP dye [Mass/Vol] 4.4 G/dL Normal 3.5 - 5.0 G/dL AO ADM SS Albumin/Globulin [Mass ratio] 1.0 {ratio} Low 1.1 - 2.5 ratio AO ADM SS ALP [Catalytic activity/Vol] 112 U/L Normal 40 - 135 U/L AO ADM SS ALT With P-5'-P [Catalytic activity/Vol] 41 U/L Normal 16 - 63 U/L AO ADM SS AST With P-5'-P [Catalytic activity/Vol] 19 U/L Normal 10 - 40 U/L AO ADM SS Basophils (Bld) [#/Vol] 0.1 103/mcL Normal 0.0 - 0.2 10^3/mcL AO Workflow SS Basophils/100 WBC (Bld) 0.7 % Normal 0.0 - 2.5 % AO Workflow SS Bilirubin [Mass/Vol] 0.5 mg/dL Normal 0.2 - 1 .0 mg/dL AO ADM SS Comment on above: Interpretive Data: U se of this assay is not recommended for patients undergoing treatment with eltrombopag due to the potential for falsely elevated results. Calcium [Mass/Vol] 10.0 mg/dL Normal 8.4 - 10. 2 mg/dL AO ADM SS Chloride [Moles/Vol] 100 mmol/L Normal 98 - 10 7 mmol/L AO ADM SS CO2 [Moles/Vol] 25 mmol/L Normal 22 - 29 mmol/L AO ADM SS Cobalamin (Vitamin B12) [Mass/Vol] 1086 pg/mL High 211 - 911 pg/mL AH ADM SS Creatinine [Mass/Vol] 0.58 mg/dL Low 0.70 - 1.30 mg/dL AO ADM SS Comment on above: Interpretive Data: T esting performed on Siemens Dimension EXL analyzer using a modified kinetic Skyler technique. Electrolyte Balance 12.0 mEq/L Normal 4.0 - 15 .0 mEq/L AO ADM SS Eosinophil, Absolute 0.2 103/mcL Normal 0.0 - 0 .7 10^3/mcL AO Workflow SS Eosinophils/100 WBC (Bld) 2.2 % Normal 0.0 - 7.0 % AO Workflow SS Erythrocyte distribution width (RBC) [Ratio] 13.2 % Normal 11.5 - 15.5 % AO Workflow SS Free T4 [Mass/Vol] 0.95 ng/dL Normal 0.76 - 1. 46 ng/dL AO ADM SS GFR/1.73 sq M.predicted among blacks MDRD (S/P/Bld) [Vol rate/Area] 204 ml/min/1.73sqm Invalid Interpretation Code AO Chemistry S Comment on above: Interpretive Data: GFR Population mean for , Non- Americans Ages 20-29 = 116 mL/min/1.73 sq.m. Ages 30-39 = 107 mL/min/1.73 sq.m. Ages 40-49 = 99 mL/min/1.73 sq.m. Ages 50-59 = 93 mL/min/1.73 sq.m. Ages 60-69 = 85 mL/min/1.73 sq.m. Ages 70+ = 75 mL/min/1.73 sq.m. Chronic Kidney Disease: Less than 60 mL/min/1.73 square meters End Stage Renal Disease: Less than 15 mL/min/1.73 square meters GFR/1.73 sq M.predicted among non-blacks MDRD (S/P/Bld) [Vol rate/Area] 168 ml/min/1.73sqm Invalid Interpretation Code AO Chemistry S Comment on above: Interpretive Data: GFR Population mean for , Non- Americans Ages 20-29 = 116 mL/min/1.73 sq.m. Ages 30-39 = 107 mL/min/1.73 sq.m. Ages 40-49 = 99 mL/min/1.73 sq.m. Ages 50-59 = 93 mL/min/1.73 sq.m. Ages 60-69 = 85 mL/min/1.73 sq.m. Ages 70+ = 75 mL/min/1.73 sq.m. Chronic Kidney Disease: Less than 60 mL/min/1.73 square meters End Stage Renal Disease: Less than 15 mL/min/1.73 square meters Globulin 4.3 G/dL Invalid Interpretation Code AO ADM SS Glucose [Mass/Vol] 88 mg/dL Normal 70 - 105 mg/dL AO ADM SS Glucose [Mass/Vol] 103 mg/dL Invalid Interpretation Code AO Chemistry S Comment on above: Interpretive Data: E stimated average glucose (eAG) is a calculated value from Hemoglobin A1C and is sales account representative of the average blood glucose level in the last 2-3 month period. Normal range: less than 114 mg/dL HbA1c (Bld) [Mass fraction] 5.2 % Normal 4.3 - 6.4 % AO ADM SS Hematocrit (Bld) [Volume fraction] 47.4 % Normal 40.0 - 52.0 % AO Workflow SS Hemoglobin (Bld) [Mass/Vol] 15.9 G/dL Normal 13.0 - 17.5 G/dL AO Workflow SS Lymphocytes (Bld) [#/Vol] 2.7 103/mcL Normal 0.9 - 4.3 10^3/mcL AO Workflow SS Lymphocytes/100 WBC (Bld) 32.4 % Normal 20.0 - 40.0 % AO Workflow SS Magnesium [Mass/Vol] 1.9 mg/dL Normal 1.8 - 2 .4 mg/dL AO ADM SS MCH (RBC) [Entitic mass] 28.4 pg Normal 27.0 - 33.0 pg AO Workflow SS MCHC 33.6 G/dL Normal 32.0 - 36.0 G/dL AO Workflow SS MCV (RBC) [Entitic vol] 84.4 fL Normal 81.0 - 100.0 fL AO Workflow SS Monocytes (Bld) [#/Vol] 0.7 103/mcL Normal 0.1 - 1.4 10^3/mcL AO Workflow SS Monocytes/100 WBC (Bld) 8.0 % Normal 2.0 - 13.0 % AO Workflow SS Natriuretic peptide.B prohormone N-Terminal [Mass/Vol] 20 pg/mL Normal 0 - 125 pg/mL AO ADM SS Comment on above: Interpretive Data: N T-proBNP results of less than 300 pg/mL effectively rules out acute congestive heart failure with 99% negative predictive value. Neutrophils (Bld) [#/Vol] 4.6 103/mcL Normal 2.3 - 8.1 10^3/mcL AO Workflow SS Neutrophils/100 WBC (Bld) 56.7 % Normal 50.0 - 75.0 % AO Workflow SS Platelet mean volume (Bld) [Entitic vol] 7.1 fL Normal 6.4 - 10.5 fL AO Workflow SS Platelets (Bld) [#/Vol] 348 103/mcL Normal 150 - 450 10^3/mcL AO Workflow SS Potassium [Moles/Vol] 3.8 mmol/L Normal 3.5 - 5.1 mmol/L AO ADM SS Protein [Mass/Vol] 8.7 G/dL High 6.4 - 8.2 G/dL AO ADM SS RBC (Bld) [#/Vol] 5.62 106/mcL Normal 4.50 - 6.0 0 10^6/mcL AO Workflow SS Sodium [Moles/Vol] 137 mmol/L Normal 136 - 145 mmol/L AO ADM SS TSH Qn 1.67 m[IU]/L Normal 0.36 - 3.74 mcIU/mL AO ADM SS Urea nitrogen [Mass/Vol] 11 mg/dL Normal 7 - 18 mg/dL AO ADM SS Urea nitrogen/Creatinine [Mass ratio] 19 ratio Normal 7 - 27 ratio AO ADM SS WBC (Bld) [#/Vol] 8.2 103/mcL Normal 4.5 - 10.8 10^3/mcL AO Workflow SS LABORATORYOrdered By: Gabriela Franco on 08-05-2024 Cholesterol [Mass/Vol] 194 mg/dL Normal 0 - 200 mg/dL AO ADM SS Comment on above: Interpretive Data: C holesterol Reference Interval: Less than 200 Desirable 200-239 Borderline high risk 240 and above High risk Cholesterol in HDL [Mass/Vol] 50 mg/dL Normal 40 - 60 mg/dL AO ADM SS Cholesterol in LDL [Mass/Vol] 114 mg/dL Normal 0 - 130 mg/dL AO ADM SS Triglyceride [Mass/Vol] 149 mg/dL Normal 0 - 150 mg/dL AO ADM SS Comment on above: Interpretive Data: T riglyceride Reference Interval: Less than 150 Normal 150-199 Borderline high risk 200-499 High risk 500 or higher Very high risk LABORATORYOrdered By: Ana Moreau on 08-05-2024 HCV Ab IA Ql Non-Reactive (08/05/24 3:22 PM) Normal AH ADM SS HCV Ab IA Ql Nonreactive: Samples with a value < 0.80 are considered nonreactive (negative) for antibodies to HCV.A negative test result does not exclude the possibility of exposure to or infection with HCV. HCV antibodies may be undetectable in some stages of the infection and in some clinical conditions. Invalid Interpretation Code Chemistry S LIPIDon 08-05-2024 Cholesterol [Mass/Vol] 194 mg/dL Normal 0-200 [facility] Comment on above: Result Comment: Chol esterol Reference Interval: Less than 200 Desirable 200-239 Borderline high risk 240 and above High risk Performed By: #### P BNP, TSH, ANEU, A1C, CMP, LIPID, FT4, CBC, GFR, MG, ADIFF #### [facility] [address] [place], [place] [address] #### B12, HCV1 #### [address] [address] Cholesterol in HDL [Mass/Vol] 50 mg/dL Normal 40-60 [facility] Comment on above: Performed By: #### P BNP, TSH, ANEU, A1C, CMP, LIPID, FT4, CBC, GFR, MG, ADIFF #### [address] [address] #### B12, HCV1 #### [address] [address] Cholesterol in LDL [Mass/Vol] 114 mg/dL Normal 0-130 [facility] Comment on above: Performed By: #### P BNP, TSH, ANEU, A1C, CMP, LIPID, FT4, CBC, GFR, MG, ADIFF #### [address] [address] #### B12, HCV1 #### [address] [address] Triglyceride [Mass/Vol] 149 mg/dL Normal 0-150 [facility] Comment on above: Result Comment: Trig lyceride Reference Interval: Less than 150 Normal 150-199 Borderline high risk 200-499 High risk 500 or higher Very high risk Performed By: #### P BNP, TSH, ANEU, A1C, CMP, LIPID, FT4, CBC, GFR, MG, ADIFF #### [address] [address] #### B12, HCV1 #### [place] [id number] MGon 08-05-2024 Magnesium [Mass/Vol] 1.9 mg/dL Normal 1.8-2.4 [facility] Comment on above: Performed By: #### P BNP, TSH, ANEU, A1C, CMP, LIPID, FT4, CBC, GFR, MG, ADIFF #### [address] [address] #### B12, HCV1 #### [address] [address] PBNPon 08-05-2024 Natriuretic peptide B (Bld) [Mass/Vol] 20 pg/mL Normal 0-125 [facility] Comment on above: Result Comment: NT-p roBNP results of less than 300 pg/mL effectively rules out acute congestive heart failure with 99% negative predictive value. Performed By: #### P BNP, TSH, ANEU, A1C, CMP, LIPID, FT4, CBC, GFR, MG, ADIFF #### [place] [address] [place], [place] [address] #### B12, HCV1 #### [address] [address] TSHon 08-05-2024 TSH Qn 1.67 m[IU]/L Normal 0.36-3.74 [facility] Comment on above: Performed By: #### P BNP, TSH, ANEU, A1C, CMP, LIPID, FT4, CBC, GFR, MG, ADIFF #### [place] [address] [place], [place] [address] #### B12, HCV1 #### [address] [address] CBC W Auto Differential pane l (Bld)on 01-26-2024 Basophils (Bld) [#/Vol] 0.04 10*3/uL <0.11 k/uL [facility] Basophils/100 WBC (Bld) 0.5 % [facility] Differential cell count method Nom (Bld) Auto [facility] Eosinophils (Bld) [#/Vol] 0.13 10*3/uL <0.46 k/uL [facility] Eosinophils/100 WBC (Bld) 1.7 % [facility] Erythrocyte distribution width (RBC) [Ratio] 12.3 % 11.5 - 15.0 % [facility] Hematocrit (Bld) [Volume fraction] 49.4 % 39.0 - 51.0 % [facility] Hemoglobin (Bld) [Mass/Vol] 16.2 g/dL 13.0 - 17.0 g/dL [facility] Immature granulocytes (Bld) [#/Vol] 0.03 10*3/uL <0.10 k/uL [facility] Immature granulocytes/100 WBC (Bld) 0.4 % [facility] Lymphocytes (Bld) [#/Vol] 2.41 10*3/uL 1.00 - 4.00 k/uL [facility] Lymphocytes/100 WBC (Bld) 31.5 % [facility] MCH (RBC) [Entitic mass] 27.6 pg 26.0 - 34.0 pg [facility] MCHC (RBC) [Mass/Vol] 32.8 g/dL 30.5 - 36.0 g/dL [facility] MCV (RBC) [Entitic vol] 84.3 fL 80.0 - 100.0 fL [facility] Monocytes (Bld) [#/Vol] 0.60 10*3/uL <0.87 k/uL [facility] Monocytes/100 WBC (Bld) 7.8 % [facility] Neutrophils (Bld) [#/Vol] 4.45 10*3/uL 1.45 - 7.50 k/uL [facility] Neutrophils/100 WBC (Bld) 58.1 % [facility] Nucleated RBC (Bld) [#/Vol] <0.01 k/uL [facility] Nucleated RBC/100 WBC (Bld) [Ratio] 0.0 /100 WBC [facility] Platelet mean volume (Bld) [Entitic vol] 9.2 fL 9.0 - 12.7 fL [facility] Platelets (Bld) [#/Vol] 342 10*3/uL 150 - 400 k/uL [facility] RBC (Bld) [#/Vol] 5.86 10*6/uL 4.20 - 6.0 0 m/uL [facility] WBC (Bld) [#/Vol] 7.66 10*3/uL 3.70 - 11. 00 k/uL [facility] FERRITIN BLDon 01-26-2024 Ferritin [Mass/Vol] 44.2 ng/mL 30.3 - 5 65.7 ng/mL [facility] Hepatic function 2000 panelo n 01-26-2024 Albumin [Mass/Vol] 4.5 g/dL 3.9 - 4.9 g/dL [facility] ALP [Catalytic activity/Vol] 92 U/L 38 - 113 U/L [facility] ALT [Catalytic activity/Vol] 28 U/L 10 - 54 U/L [facility] AST [Catalytic activity/Vol] 24 U/L 14 - 40 U/L [facility] Bilirubin [Mass/Vol] 0.4 mg/dL 0.2 - 1 .3 mg/dL [facility] Bilirubin.conjugated [Mass/Vol] <0.2 mg/dL [facility] Protein [Mass/Vol] 8.1 g/dL High 6.3 - 8.0 g/dL [facility] LIPID PANEL, NONFASTINGon Cholesterol [Mass/Vol] 181 mg/dL <200 mg/dL [facility] HDL Cholesterol, Nonfasting 43 mg/dL >39 mg/dL [facility] LDL Cholesterol, Nonfasting 113 mg/dL High <100 mg/dL [facility] LDL/HDL Ratio, Nonfasting 2.63 mg/dL High <2.54 mg/dL [facility] Non HDL Cholesterol, Nonfasting 138 mg/dL High <130 mg/dL [facility] Total Chol/HDL Ratio, Nonfasting 4.21 mg/dL <5.10 mg/dL [facility] Triglycerides, Nonfasting 125 mg/dL <150 mg/dL [facility] VLDL Cholesterol, Nonfasting 25 mg/dL <30 mg/dL [facility] MAGNESIUM BLDon 01-26-2024 Magnesium [Mass/Vol] 2.2 mg/dL 1.7 - 2 .3 mg/dL [facility] PHOSPHORUS INORGANICon 01-25 Phosphate [Mass/Vol] 3.8 mg/dL 2.7 - 4 .8 mg/dL [facility] US Kidney - bilateral and Ur inary bladderon 01-26-2024 [facility] VITAMIN D 25 HYDROXYon 01-25 25-hydroxyvitamin D3 [Mass/Vol] 36.6 ng/mL 31.0 - 80.0 ng/mL [facility] No Panel Informationon 09-07 Culture Urine >100,000 cfu/ml Multiple bacterial morphotypes present. Probable Contamination. Suggest recollection if clinically indicated. [facility] CBC panel Auto (Bld)on 03-18 Erythrocyte distribution width (RBC) [Ratio] 13.4 % Normal 11.5-15.0 [facility] Comment on above: Order Comment: Speci men Type: BLOOD SPECIMENOrdering Facility: [facility] Address: [address] [place], [place] [address] Performed By: #### 5 8410-2 ####[facility] LABCLIA [id number] [place] [address] [place] Hematocrit (Bld) [Volume fraction] 29.5 % Low 39.0-51.0 [facility] Comment on above: Order Comment: Speci men Type: BLOOD SPECIMENOrdering Facility: [facility] Address: [address] Performed By: #### 5 8410-2 ####[facility] LABIA [id number] [address] STATES OF [facility] Hemoglobin (Bld) [Mass/Vol] 9.6 g/dL Low 13.0-17.0 [facility] Comment on above: Order Comment: Speci men Type: BLOOD SPECIMENOrdering Facility: [facility] Address: [address] [place] [address] Performed By: #### 5 8410-2 ####[facility] LABIA [id number] [address] [place] MCH (RBC) [Entitic mass] 27.8 pg Normal 26.0-34.0 [facility] Comment on above: Order Comment: Speci men Type: BLOOD SPECIMENOrdering Facility: [facility] Address: [address] [place], [place] [address] Performed By: #### 5 8410-2 ####[facility] LABIA [id number] [address] [place] MCHC (RBC) [Mass/Vol] 32.5 g/dL Normal 30.5-36.0 [facility] Comment on above: Order Comment: Speci men Type: BLOOD SPECIMENOrdering Facility: [facility] Address: [address] [place], [place] [address] Performed By: #### 5 8410-2 ####[facility] LABIA [id number] [place] [address] [place] MCV (RBC) [Entitic vol] 85.5 fL Normal 80.0-100.0 [facility] Comment on above: Order Comment: Speci men Type: BLOOD SPECIMENOrdering Facility: [facility] Address: [address] [place], [place] [address] Performed By: #### 5 8410-2 ####[facility] LABCLIA [id number] [place] [address] [place] Nucleated RBC (Bld) [#/Vol] 10*3/uL Normal <0.01 [facility] Comment on above: Order Comment: Speci men Type: BLOOD SPECIMENOrdering Facility: [facility] Address: [address] [place] [address] Performed By: #### 5 8410-2 ####[facility] LABIA [id number] [place] [address] [place] Platelet mean volume (Bld) [Entitic vol] 9.5 fL Normal 9.0-12.7 [facility] Comment on above: Order Comment: Speci men Type: BLOOD SPECIMENOrdering Facility: [facility] Address: [address] [place] [address] Performed By: #### 5 8410-2 ####[facility] [id number] [place] [address] [place] Platelets (Bld) [#/Vol] 278 10*3/uL Normal 150-400 [facility] Comment on above: Order Comment: Speci men Type: BLOOD SPECIMENOrdering Facility: [facility] Address: [address] [place], [place] [address] Performed By: #### 5 8410-2 ####[facility] [id number] [place] [address] [place] RBC (Bld) [#/Vol] 3.45 10*6/uL Low 4.20-6.00 [facility] Comment on above: Order Comment: Speci men Type: BLOOD SPECIMENOrdering Facility: [facility] Address: [address] [place], [place] [address] Performed By: #### 5 8410-2 ####[facility] LABIA [id number] [place] [address] [place] WBC (Bld) [#/Vol] 11.46 10*3/uL High 3.70-11.00 [facility] Comment on above: Order Comment: Speci men Type: BLOOD SPECIMENOrdering Facility: [facility] Address: [address] [place], [place] [address] Performed By: #### 5 8410-2 ####[facility] LABCLIA [id number] [place] [address] [place] CONSULT PROGon 03-18-2023 CONSULT PROG Normal [facility] Comprehensive metabolic 2000 panelon 03-18-2023 Albumin [Mass/Vol] 3.9 g/dL Normal 3.9-4.9 [facility] Comment on above: Order Comment: Speci men Type: BLOOD SPECIMENOrdering Facility: [facility] Address: [address] [place], [place] [address] Performed By: #### 2 777-1, 68326-3, 93302-3 ####[facility] LABCLIA [id number] [place] [address] [place] ALP [Catalytic activity/Vol] 59 U/L Normal 38-113 [facility] Comment on above: Order Comment: Speci men Type: BLOOD SPECIMENOrdering Facility: [facility] Address: [address] [place], [place] [address] Performed By: #### 2 777-1, 31679-2, 36824-7 ####[facility] LABCLIA [id number] [address] [place] ALT [Catalytic activity/Vol] 28 U/L Normal 10-54 [facility] Comment on above: Order Comment: Speci men Type: BLOOD SPECIMENOrdering Facility: [facility] Address: [address] [place], [place] [address] Performed By: #### 2 777-1, 71417-0, 63381-6 ####[facility] LABCLIA [id number] [place] [id number] [place] Anion gap [Moles/Vol] 14 mmol/L Normal 9-18 [facility] Comment on above: Order Comment: Speci men Type: BLOOD SPECIMENOrdering Facility: [facility] Address: [address] [place] [address] Performed By: #### 2 777-1, 11166-2, ####[facility] LABCLIA [id number] [place] [address] [place] AST [Catalytic activity/Vol] 19 U/L Normal 14-40 [facility] Comment on above: Order Comment: Speci men Type: BLOOD SPECIMENOrdering Facility: [facility] Address: [address] [place] [address] Result Comment: Resu lts may be falsely increased due to interference from hemolysis. Suggest reorder as clinically indicated. Performed By: #### 2 777-1, , ####[facility] LABCLIA [id number] [address] [place] Bilirubin [Mass/Vol] 1.0 mg/dL Normal 0.2-1.3 [facility] Comment on above: Order Comment: Speci men Type: BLOOD SPECIMENOrdering Facility: [facility] Address: [address] [place] [address] Performed By: #### 2 777-1, , ####[facility] LABCLIA [id number] [address] [place] Calcium [Mass/Vol] 8.6 mg/dL Normal 8.5-10.2 [facility] Comment on above: Order Comment: Speci men Type: BLOOD SPECIMENOrdering Facility: [facility] Address: [address] [place] [address] Performed By: #### 2 777-1, 80634-8, ####[facility] LABCLIA [id number] [place] [address] [place] Chloride [Moles/Vol] 99 mmol/L Normal 97-105 [facility] Comment on above: Order Comment: Speci men Type: BLOOD SPECIMENOrdering Facility: [facility] Address: [address] [place] [address] Performed By: #### 2 777-1, 54652-7, 35837-7 ####[facility] LABCLIA [id number] [place] [address] [place] CO2 [Moles/Vol] 24 mmol/L Normal 22-30 [facility] Comment on above: Order Comment: Speci men Type: BLOOD SPECIMENOrdering Facility: [facility] Address: [address] [place] [address] Performed By: #### 2 777-1, 59247-4, 03541-8 ####[facility] LABCLIA [id number] [place] [address] [place] Creatinine [Mass/Vol] 0.28 mg/dL Low 0.73-1.22 [facility] Comment on above: Order Comment: Speci men Type: BLOOD SPECIMENOrdering Facility: [facility] Address: [address] [place] [address] Performed By: #### 2 777-1, 27876-4, 26640-6 ####[facility] LABCLIA [id number] [place] [address] [place] GFR/1.73 sq M.predicted among non-blacks MDRD (S/P/Bld) [Vol rate/Area] mL/min/{1.73_m2} Normal >=60 [facility] Comment on above: Order Comment: Speci men Type: BLOOD SPECIMENOrdering Facility: [facility] Address: [address] [place] [address] Result Comment: Mary mated Glomerular Filtration Rate (eGFR) is calculated using the 2020 CKD-EPI creatinine equation. This equation utilizes serum creatinine, sex, and age as parameters. The creatinine assay has traceable calibration to isotope dilution-mass spectrometry. Refer to KDIGO guidelines for clinical interpretation. In patients with unstable renal function, e.g. those with acute kidney injury, the eGFR may not accurately reflect actual GFR. Performed By: #### 2 777-1, , ####[facility] LABCLIA [id number] [address] [address] [place] Glucose [Mass/Vol] 116 mg/dL High 74-99 [facility] Comment on above: Order Comment: Frantz thurman Type: BLOOD SPECIMENOrdering Facility: [facility] Address: [address] [place] [address] Result Comment: The [place] [employer] (ADA) provides guidance for cutoff values for fasting glucose and random glucose. The ADA defines fasting as no caloric intake for at least 8 hours. Fasting plasma glucose results between 100 to 125 mg/dL indicate increased risk for diabetes (prediabetes).Fasting plasma glucose results greater than or equal to 126 mg/dL meet the criteria for diagnosis of diabetes. In the absence of unequivocal hyperglycemia, results should be confirmed by repeat testing. In a patient with classic symptoms of hyperglycemia or hyperglycemic crisis, random plasma glucose results greater than or equal to 200 mg/dL meet the criteria for diagnosis of diabetes.Reference: Standards of Medical Care in Diabetes 2016, [place] [employer]. Diabetes Care. 2016.39(Suppl 1). Performed By: #### 2 777-1, , ####[facility] LABCLIA [id number] [place] [id number] [place] Potassium [Moles/Vol] 3.3 mmol/L Low 3.7-5.1 [facility] Comment on above: Order Comment: Frantz thurman Type: BLOOD SPECIMENOrdering Facility: [facility] Address: [address] [place] [address] Performed By: #### 2 777-1, , ####[facility] LABCLIA [id number] [facility] [address] [address] [place] Protein [Mass/Vol] 6.2 g/dL Low 6.3-8.0 [facility] Comment on above: Order Comment: Speci men Type: BLOOD SPECIMENOrdering Facility: [facility] Address: [address] [place] [address] Performed By: #### 2 777-1, 25948-2, ####[facility] LABIA [id number] [place] [address] [place] Sodium [Moles/Vol] 137 mmol/L Normal 136-144 [facility] Comment on above: Order Comment: Speci men Type: BLOOD SPECIMENOrdering Facility: [facility] Address: [address] [place] [address] Performed By: #### 2 777-1, 73278-4, ####[facility] LABIA [id number] [place] [address] [place] Urea nitrogen [Mass/Vol] 2 mg/dL Low 9-24 [facility] Comment on above: Order Comment: Speci men Type: BLOOD SPECIMENOrdering Facility: [facility] Address: [address] [place], [place] [address] Performed By: #### 2 777-1, 79879-4, ####[facility] LABIA [id number] [place] [id number] [place] Magnesium SerPl-mCncon 03-18 Magnesium [Mass/Vol] 2.1 mg/dL Normal 1.7-2.3 [facility] Comment on above: Order Comment: Speci men Type: BLOOD SPECIMENOrdering Facility: [facility] Address: [address] [place] [address] Performed By: #### 2 777-1, 30646-3, 02093-2 ####[facility] LABIA [id number] [place] [id number] [place] Phosphate SerPl-mCncon 03-18 Phosphate [Mass/Vol] 2.4 mg/dL Low 2.7-4.8 [facility] Comment on above: Order Comment: Speci men Type: BLOOD SPECIMENOrdering Facility: [facility] Address: [address] [place] [address] Performed By: #### 2 777-1, 89326-2, 00534-3 ####[facility] LABCLIA [id number] [address] [place] THERAPY NTon 03-18-2023 THERAPY NT Normal [facility] Bilirub Conj SerPl-mCncon Bilirubin.conjugated [Mass/Vol] 0.5 mg/dL High <0.2 [facility] Comment on above: Order Comment: Speci men Type: BLOOD SPECIMENOrdering Facility: [facility] Address: [address] [place] [address] Result Comment: Resu lts may be falsely decreased due to interference from hemolysis. Suggest reorder as clinically indicated. Performed By: #### 2 777-1, 26448-1, 89632-9, 95984-2 ####[facility] LABCLIA [id number] [place] [address] [place] CBC panel Auto (Bld)on 03-17 Erythrocyte distribution width (RBC) [Ratio] 13.3 % Normal 11.5-15.0 [facility] Comment on above: Order Comment: Speci men Type: BLOOD SPECIMENOrdering Facility: [facility] Address: [address] [place] [address] Performed By: #### 5 8410-2 ####[facility] LABCLIA [id number] [address] [place] Hematocrit (Bld) [Volume fraction] 32.5 % Low 39.0-51.0 [facility] Comment on above: Order Comment: Speci men Type: BLOOD SPECIMENOrdering Facility: [facility] Address: [address] [place] [address] Performed By: #### 5 8410-2 ####[facility] LABCLIA [id number] [address] STATES OF [facility] Hemoglobin (Bld) [Mass/Vol] 10.5 g/dL Low 13.0-17.0 [facility] Comment on above: Order Comment: Speci men Type: BLOOD SPECIMENOrdering Facility: [facility] Address: [address] [place] [address] Performed By: #### 5 8410-2 ####[facility] LABIA [id number] [address] [place] MCH (RBC) [Entitic mass] 27.9 pg Normal 26.0-34.0 [facility] Comment on above: Order Comment: Speci men Type: BLOOD SPECIMENOrdering Facility: [facility] Address: [address] [place] [address] Performed By: #### 5 8410-2 ####[facility] LABIA [id number] [address] [place] MCHC (RBC) [Mass/Vol] 32.3 g/dL Normal 30.5-36.0 [facility] Comment on above: Order Comment: Speci men Type: BLOOD SPECIMENOrdering Facility: [facility] Address: [address] Performed By: #### 5 8410-2 ####[facility] LABCLIA [id number] [address] [place] MCV (RBC) [Entitic vol] 86.4 fL Normal 80.0-100.0 [facility] Comment on above: Order Comment: Speci men Type: BLOOD SPECIMENOrdering Facility: [facility] Address: [address] [place], [place] [address] Performed By: #### 5 8410-2 ####[facility] LABCLIA [id number] [place] [address] [place] Nucleated RBC (Bld) [#/Vol] 10*3/uL Normal <0.01 [facility] Comment on above: Order Comment: Speci men Type: BLOOD SPECIMENOrdering Facility: [facility] Address: [address] [place] [address] Performed By: #### 5 8410-2 ####[facility] LABIA [id number] [place] [address] [place] Platelet mean volume (Bld) [Entitic vol] 9.9 fL Normal 9.0-12.7 [facility] Comment on above: Order Comment: Speci men Type: BLOOD SPECIMENOrdering Facility: [facility] Address: [address] [place] [address] Performed By: #### 5 8410-2 ####[facility] [id number] [place] [address] [place] Platelets (Bld) [#/Vol] 123 10*3/uL Low 150-400 [facility] Comment on above: Order Comment: Speci men Type: BLOOD SPECIMENOrdering Facility: [facility] Address: [address] [place], [place] [address] Performed By: #### 5 8410-2 ####[facility] LABIA [id number] [place] [address] [place] RBC (Bld) [#/Vol] 3.76 10*6/uL Low 4.20-6.00 [facility] Comment on above: Order Comment: Speci men Type: BLOOD SPECIMENOrdering Facility: [facility] Address: [address] [place], [place] [address] Performed By: #### 5 8410-2 ####[facility] LABIA [id number] [place] [address] [place] WBC (Bld) [#/Vol] 11.91 10*3/uL High 3.70-11.00 [facility] Comment on above: Order Comment: Speci men Type: BLOOD SPECIMENOrdering Facility: [facility] Address: [address] [place] [address] Performed By: #### 5 8410-2 ####[facility] LABCLIA [id number] [place] [address] [place] CONSULTon 03-17-2023 CONSULT Normal [facility] CONSULT PROGon 03-17-2023 CONSULT PROG Normal [facility] Comprehensive metabolic 2000 panelon 03-17-2023 Albumin [Mass/Vol] 4.0 g/dL Normal 3.9-4.9 [facility] Comment on above: Order Comment: Speci men Type: BLOOD SPECIMENOrdering Facility: [facility] Address: [address] [place] [address] Performed By: #### 2 777-1, 99823-2, 71142-6, 10290-1 ####[facility] LABIA [id number] [place] [address] [place] ALP [Catalytic activity/Vol] 60 U/L Normal 38-113 [facility] Comment on above: Order Comment: Speci men Type: BLOOD SPECIMENOrdering Facility: [facility] Address: [address] [place] [address] Performed By: #### 2 777-1, 30830-9, 23091-3, 66679-2 ####[facility] LABIA [id number] [place] [address] [place] ALT [Catalytic activity/Vol] 32 U/L Normal 10-54 [facility] Comment on above: Order Comment: Speci men Type: BLOOD SPECIMENOrdering Facility: [facility] Address: [address] [place] [address] Result Comment: Resu lts may be falsely increased due to interference from hemolysis. Suggest reorder as clinically indicated. Performed By: #### 2 777-1, 49539-9, 71827-4, 66531-8 ####[facility] LABCLIA [id number] [place] [id number] [place] Anion gap [Moles/Vol] 18 mmol/L Normal 9-18 [facility] Comment on above: Order Comment: Speci men Type: BLOOD SPECIMENOrdering Facility: [facility] Address: [address] [place] [address] Performed By: #### 2 777-1, 35580-4, , 69458-5 ####[facility] LABCLIA [id number] [place] [address] [place] AST [Catalytic activity/Vol] 35 U/L Normal 14-40 [facility] Comment on above: Order Comment: Speci men Type: BLOOD SPECIMENOrdering Facility: [facility] Address: [address] Result Comment: Resu lts may be falsely increased due to interference from hemolysis. Suggest reorder as clinically indicated. Performed By: #### 2 777-1, 00117-2, , 06797-8 ####[facility] LABCLIA [id number] [place] [address] [place] Bilirubin [Mass/Vol] 1.7 mg/dL High 0.2-1.3 [facility] Comment on above: Order Comment: Speci men Type: BLOOD SPECIMENOrdering Facility: [facility] Address: [address] [place] [address] Performed By: #### 2 777-1, 66001-6, , 41779-1 ####[facility] LABCLIA [id number] [place] [address] [place] Calcium [Mass/Vol] 8.8 mg/dL Normal 8.5-10.2 [facility] Comment on above: Order Comment: Speci men Type: BLOOD SPECIMENOrdering Facility: [facility] Address: [address] Performed By: #### 2 777-1, 10733-5, , 88520-0 ####[facility] LABCLIA [id number] [place] [address] [place] Chloride [Moles/Vol] 103 mmol/L Normal 97-105 [facility] Comment on above: Order Comment: Speci men Type: BLOOD SPECIMENOrdering Facility: [facility] Address: [address] [place] [address] Performed By: #### 2 777-1, 63533-5, , 28234-1 ####[facility] LABCLIA [id number] [place] [address] [place] CO2 [Moles/Vol] 17 mmol/L Low 22-30 [facility] Comment on above: Order Comment: Speci men Type: BLOOD SPECIMENOrdering Facility: [facility] Address: [address] [place] [address] Performed By: #### 2 777-1, 06576-9, , 15233-7 ####[facility] LABCLIA [id number] [place] [address] [place] Creatinine [Mass/Vol] 0.35 mg/dL Low 0.73-1.22 [facility] Comment on above: Order Comment: Speci men Type: BLOOD SPECIMENOrdering Facility: [facility] Address: [address] [place] [id number] Performed By: #### 2 777-1, 40089-1, , 00095-1 ####[facility] LABCLIA [id number] [place] [address] [place] GFR/1.73 sq M.predicted among non-blacks MDRD (S/P/Bld) [Vol rate/Area] mL/min/{1.73_m2} Normal >=60 [facility] Comment on above: Order Comment: Frantz thurman Type: BLOOD SPECIMENOrdering Facility: [facility] Address: [address] [place], [place] [address] Result Comment: Mary mated Glomerular Filtration Rate (eGFR) is calculated using the 2020 CKD-EPI creatinine equation. This equation utilizes serum creatinine, sex, and age as parameters. The creatinine assay has traceable calibration to isotope dilution-mass spectrometry. Refer to KDIGO guidelines for clinical interpretation. In patients with unstable renal function, e.g. those with acute kidney injury, the eGFR may not accurately reflect actual GFR. Performed By: #### 2 777-1, 70393-9, , 29480-0 ####[facility] LABCLIA [id number] [place] [id number] [place] Glucose [Mass/Vol] 71 mg/dL Low 74-99 [facility] Comment on above: Order Comment: Frantz thurman Type: BLOOD SPECIMENOrdering Facility: [facility] Address: [address] [place], [place] [address] Result Comment: The [place] Diabetes Association (ADA) provides guidance for cutoff values for fasting glucose and random glucose. The ADA defines fasting as no caloric intake for at least 8 hours. Fasting plasma glucose results between 100 to 125 mg/dL indicate increased risk for diabetes (prediabetes).Fasting plasma glucose results greater than or equal to 126 mg/dL meet the criteria for diagnosis of diabetes. In the absence of unequivocal hyperglycemia, results should be confirmed by repeat testing. In a patient with classic symptoms of hyperglycemia or hyperglycemic crisis, random plasma glucose results greater than or equal to 200 mg/dL meet the criteria for diagnosis of diabetes.Reference: Standards of Medical Care in Diabetes 2016, [place] [employer]. Diabetes Care. 2016.39(Suppl 1). Performed By: #### 2 777-1, 83296-1, 39923-0, 47413-2 ####[facility] LABCLIA [id number] [address] [address] [place] Potassium [Moles/Vol] 4.2 mmol/L Normal 3.7-5.1 [facility] Comment on above: Order Comment: Speci men Type: BLOOD SPECIMENOrdering Facility: [facility] Address: [address] [place] [address] Performed By: #### 2 777-1, 90621-8, , 91613-1 ####[facility] LABCLIA [id number] [place] [address] [place] Protein [Mass/Vol] 6.5 g/dL Normal 6.3-8.0 [facility] Comment on above: Order Comment: Speci men Type: BLOOD SPECIMENOrdering Facility: [facility] Address: [address] [place] [address] Performed By: #### 2 777-1, 47509-8, , 65465-9 ####[facility] LABCLIA [id number] [place] [address] [place] Sodium [Moles/Vol] 138 mmol/L Normal 136-144 [facility] Comment on above: Order Comment: Speci men Type: BLOOD SPECIMENOrdering Facility: [facility] Address: [address] [place] [address] Performed By: #### 2 777-1, 63757-2, , 87038-1 ####[facility] LABCLIA [id number] [place] [id number] [place] Urea nitrogen [Mass/Vol] 4 mg/dL Low 9-24 [facility] Comment on above: Order Comment: Speci men Type: BLOOD SPECIMENOrdering Facility: [facility] Address: [address] [place] [address] Performed By: #### 2 777-1, 15762-7, , 61769-6 ####[facility] LABCLIA [id number] [place] [address] [place] Gas and Carbon monoxide pane l (BldV)on 03-17-2023 BASE DEFICIT, VENOUS -5 mmol/L Low -2-0 [facility] Comment on above: Order Comment: Speci men Type: VENOUS BLOOD SPECIMENOrdering Facility: [facility] Address: [address] [place] [address] Performed By: #### 2 4344-4 ####[facility] LABCLIA [id number] [place] [address] [place] Body temperature 98.6 [degF] Normal [facility] Comment on above: Order Comment: Speci men Type: VENOUS BLOOD SPECIMENOrdering Facility: [facility] Address: [address] [place] [address] Performed By: #### 2 4344-4 ####[facility] LABIA [id number] [place] [address] [place] Calcium.ionized (Bld) [Mass/Vol] 1.18 mmol/L Normal 1.08-1.30 [facility] Comment on above: Order Comment: Speci men Type: VENOUS BLOOD SPECIMENOrdering Facility: [facility] Address: [address] [place], [place] [address] Performed By: #### 2 4344-4 ####[facility] LABIA [id number] [address] [place] Calcium.ionized adjusted to pH 7.4 (BldA) [Moles/Vol] 1.18 mmol/L Normal 1.08-1.30 [facility] Comment on above: Order Comment: Speci men Type: VENOUS BLOOD SPECIMENOrdering Facility: [facility] Address: [address] [place], [place] [address] Performed By: #### 2 4344-4 ####[facility] LABIA [id number] [place] [address] [place] Carboxyhemoglobin (BldV) [Mass fraction] 1.3 % Normal 0.0-2.0 [facility] Comment on above: Order Comment: Speci men Type: VENOUS BLOOD SPECIMENOrdering Facility: [facility] Address: [address] [place] [address] Result Comment: Carb oxyhemoglobin Reference Range for Smokers: 2.0-8.0% Performed By: #### 2 4344-4 ####[facility] LABCLIA [id number] [place] [address] [place] CO2 (BldV) [Partial pressure] 30 mm[Hg] Low 42-55 [facility] Comment on above: Order Comment: Speci men Type: VENOUS BLOOD SPECIMENOrdering Facility: [facility] Address: [address] [place] [address] Performed By: #### 2 4344-4 ####[facility] LABCLIA [id number] [place] [address] [place] CO2 [Moles/Vol] 19 mmol/L Low 25-29 [facility] Comment on above: Order Comment: Speci men Type: VENOUS BLOOD SPECIMENOrdering Facility: [facility] Address: [address] [place] [address] Performed By: #### 2 4344-4 ####[facility] LABCLIA [id number] [place] [address] [place] Glucose [Mass/Vol] 75 mg/dL Normal 60-105 [facility] Comment on above: Order Comment: Speci men Type: VENOUS BLOOD SPECIMENOrdering Facility: [facility] Address: [address] Performed By: #### 2 4344-4 ####[facility] LABCLIA [id number] [place] [address] [place] HCO3 (Bld) [Moles/Vol] 19 mmol/L Low 24-28 [facility] Comment on above: Order Comment: Speci men Type: VENOUS BLOOD SPECIMENOrdering Facility: [facility] Address: [address] Performed By: #### 2 4344-4 ####[facility] LABIA [id number] [place] [address] [place] Hematocrit (Bld) [Volume fraction] 30.5 % Low 39.0-51.0 [facility] Comment on above: Order Comment: Speci men Type: VENOUS BLOOD SPECIMENOrdering Facility: [facility] Address: [address] Performed By: #### 2 4344-4 ####[facility] LABIA [id number] [place] [address] [place] Hemoglobin (Bld) [Mass/Vol] 9.9 g/dL Low 13.0-17.0 [facility] Comment on above: Order Comment: Speci men Type: VENOUS BLOOD SPECIMENOrdering Facility: [facility] Address: [address] [place] [address] Performed By: #### 2 4344-4 ####[facility] LABIA [id number] [place] [address] [place] Lactate [Moles/Vol] 0.7 mmol/L Normal 0.5-2.2 [facility] Comment on above: Order Comment: Speci men Type: VENOUS BLOOD SPECIMENOrdering Facility: [facility] Address: [address] [place] [address] Performed By: #### 2 4344-4 ####[facility] LABIA [id number] [address] [place] Methemoglobin (Bld) [Mass fraction] 0.9 % Normal 0.0-1.5 [facility] Comment on above: Order Comment: Speci men Type: VENOUS BLOOD SPECIMENOrdering Facility: [facility] Address: [address] [place] [address] Performed By: #### 2 4344-4 ####[facility] LABIA [id number] [place] O2 THERAPY RA=Room Air Normal [facility] Comment on above: Order Comment: Speci men Type: VENOUS BLOOD SPECIMENOrdering Facility: [facility] Address: [address] [place], [place] [address] Performed By: #### 2 4344-4 ####[facility] LABCLIA [id number] [place] [address] [place] Oxygen (BldV) [Partial pressure] 64 mm[Hg] High 35-45 [facility] Comment on above: Order Comment: Speci men Type: VENOUS BLOOD SPECIMENOrdering Facility: [facility] Address: [address] [place], [place] [address] Performed By: #### 2 4344-4 ####[facility] LABCLIA [id number] [place] [address] [place] Oxygen saturation in Venous blood 93 % High 60-85 [facility] Comment on above: Order Comment: Speci men Type: VENOUS BLOOD SPECIMENOrdering Facility: [facility] Address: [address] [place], [place] [address] Performed By: #### 2 4344-4 ####[facility] LABCLIA [id number] [place] [address] [place] Oxyhemoglobin (BldV) [Mass fraction] 91 % High 60-85 [facility] Comment on above: Order Comment: Speci men Type: VENOUS BLOOD SPECIMENOrdering Facility: [facility] Address: [address] [place], [place] [address] Performed By: #### 2 4344-4 ####[facility] LABCLIA [id number] [place] [address] [place] pH (BldV) 7.40 [pH] Normal 7.32-7.42 [facility] Comment on above: Order Comment: Speci men Type: VENOUS BLOOD SPECIMENOrdering Facility: [facility] Address: [address] [place], [place] [address] Performed By: #### 2 4344-4 ####[facility] LABCLIA [id number] [place] [address] [place] Potassium [Moles/Vol] 3.4 mmol/L Low 3.5-5.0 [facility] Comment on above: Order Comment: Speci men Type: VENOUS BLOOD SPECIMENOrdering Facility: [facility] Address: [address] [place], [place] [address] Performed By: #### 2 4344-4 ####[facility] LABIA [id number] [place] [address] [place] Sodium [Moles/Vol] 141 mmol/L Normal 136-144 [facility] Comment on above: Order Comment: Speci men Type: VENOUS BLOOD SPECIMENOrdering Facility: [facility] Address: [address] [place] [address] Performed By: #### 2 4344-4 ####[facility] LABIA [id number] [place] [address] [place] Magnesium SerPl-mCncon 03-17 Magnesium [Mass/Vol] 1.9 mg/dL Normal 1.7-2.3 [facility] Comment on above: Order Comment: Speci men Type: BLOOD SPECIMENOrdering Facility: [facility] Address: [address] [place], [place] [address] Performed By: #### 2 777-1, 61755-1, 15772-9, 46280-8 ####[facility] LABIA [id number] [place] [id number] [place] NUTRITIONon 03-17-2023 NUTRITION Normal [facility] bilirubin panel [Ma ss/Vol]on 03-17-2023 Bilirubin [Mass/Vol] 1.4 mg/dL High 0.2-1.3 [facility] Comment on above: Order Comment: Speci men Type: BLOOD SPECIMENOrdering Facility: [facility] Address: [address] [place] [address] Performed By: #### 5 0189-0 ####[facility] LABIA [id number] [address] Bilirubin.conjugated [Mass/Vol] 0.8 mg/dL High <0.2 [facility] Comment on above: Order Comment: Speci men Type: BLOOD SPECIMENOrdering Facility: [facility] Address: [address] [place] [address] Performed By: #### 5 0189-0 ####[facility] LABIA [id number] [address] Bilirubin.indirect [Mass/Vol] 0.6 mg/dL Normal <1.4 [facility] Comment on above: Order Comment: Rosalindi men Type: BLOOD SPECIMENOrdering Facility: [facility] Address: [address] [place] [address] Performed By: #### 5 0189-0 ####[facility] [id number] [address] PT panel Coag (PPP)on 2022 INR Coag (PPP) [Relative time] 1.0 {INR} Normal 0.9-1.3 [facility] Comment on above: Order Comment: Rosalindi cuca Type: BLOOD SPECIMENOrdering Facility: [facility] Address: [address] [place] [address] Result Comment: Gale min K Antagonist (VKA) Therapeutic Range: INR 2 to 3 (Target INR of 2.5)Note: For patients treated with VKA drugs, such as warfarin, the [place] [employer] 2012 Guideline recommends a therapeutic INR range of 2 to 3 (target INR of 2.5). This recommendation includes high-risk patients with antiphospholipid syndrome with previous arterial or venous thromboembolism, current-generation mechanical or bioprosthetic aortic heart valve replacement.Note: Patients with mechanical aortic valve replacement and additional risk factors for thromboembolic events (atrial fibrillation, previous thromboembolism, LV dysfunction, hypercoagulable conditions) or an older generation mechanical AVR (i.e., ball in-Cage) or any mechanical MVR should have a INR therapeutic range of 2.5 to 3.5 (target INR of 3).Grayson GH, et al. Chest 2012, 141:7S-47SNishimlisa RA, et al. [facility] 2017, 70: 252-289 Performed By: #### 1 4979-9, 24232-0 ####[facility] [id number] [place] [address] [place] PT Coag (PPP) [Time] 10.6 s Normal 9.7-13.0 [facility] Comment on above: Order Comment: Speci men Type: BLOOD SPECIMENOrdering Facility: [facility] Address: [address] [place] [address] Performed By: #### 1 4979-9, 05270-2 ####[facility] [id number] [place] [address] [place] Phosphate SerPl-mCncon 03-17 Phosphate [Mass/Vol] 2.7 mg/dL Normal 2.7-4.8 [facility] Comment on above: Order Comment: Speci men Type: BLOOD SPECIMENOrdering Facility: [facility] Address: [address] [place] [address] Performed By: #### 2 777-1, 54796-7, 30300-2, 15992-8 ####[facility] [id number] [place] [address] [place] THERAPY NTon 03-17-2023 THERAPY NT Normal [facility] URINALYSIS, REFLEX MICROSCOP ICon 03-17-2023 Bilirubin Ql (U) Negative Normal Negative [facility] Comment on above: Order Comment: Speci men Type: URINE SPECIMENOrdering Facility: [facility] Address: [address] [place] [address] Performed By: #### L [id number] ####[facility] LABCLIA [id number] [place] [address] [place] Clarity (Unsp spec) Turbid Abnormal Clear [facility] Comment on above: Order Comment: Speci men Type: URINE SPECIMENOrdering Facility: [facility] Address: [address] [place] [address] Performed By: #### L [id number] ####[facility] LABCLIA [id number] [place] [address] [place] Color (U) Yellow Normal Yellow [facility] Comment on above: Order Comment: Speci men Type: URINE SPECIMENOrdering Facility: [facility] Address: [address] [place] [address] Performed By: #### L [id number] ####[facility] LABCLIA [id number] [place] [address] [place] Glucose Test strip (U) [Mass/Vol] Trace Normal Trace, Negative [facility] Comment on above: Order Comment: Speci men Type: URINE SPECIMENOrdering Facility: [facility] Address: [address] [place] [address] Performed By: #### L [id number] ####[facility] LABCLIA [id number] [place] [address] [place] Hemoglobin Ql (U) Negative Normal Negative, Trace [facility] Comment on above: Order Comment: Speci men Type: URINE SPECIMENOrdering Facility: [facility] Address: [address] Performed By: #### L [id number] ####[facility] LABIA [id number] [place] [address] [place] Ketones Ql (U) 1+ Abnormal Trace, Negative [facility] Comment on above: Order Comment: Speci men Type: URINE SPECIMENOrdering Facility: [facility] Address: [address] [place], [place] [address] Performed By: #### L [id number] ####[facility] LABCLIA [id number] [place] [address] [place] Leukocyte esterase Test strip Ql (U) Negative Normal Negative, 25 Patt/uL [facility] Comment on above: Order Comment: Speci men Type: URINE SPECIMENOrdering Facility: [facility] Address: [address] [place] [address] Performed By: #### L [id number] ####[facility] LABCLIA [id number] [place] [address] [place] Nitrite Ql (U) Negative Normal Negative [facility] Comment on above: Order Comment: Speci men Type: URINE SPECIMENOrdering Facility: [facility] Address: [address] [place] [address] Performed By: #### L [id number] ####[facility] LABIA [id number] [place] [address] [place] pH (U) 5.5 [pH] Normal 5.0-8.0 [facility] Comment on above: Order Comment: Speci men Type: URINE SPECIMENOrdering Facility: [facility] Address: [address] [place] [address] Performed By: #### L [id number] ####[facility] LABIA [id number] [place] [address] [place] Protein (U) [Mass/Vol] Negative Normal Trace, Negative [facility] Comment on above: Order Comment: Speci men Type: URINE SPECIMENOrdering Facility: [facility] Address: [address] [place] [address] Performed By: #### L [id number] ####[facility] LABIA [id number] [place] [address] [place] Specific gravity (U) [Rel density] 1.033 High 1.005-1.030 [facility] Comment on above: Order Comment: Speci men Type: URINE SPECIMENOrdering Facility: [facility] Address: [address] [place] [address] Performed By: #### L [id number] ####[facility] LABCLIA [id number] [address] STATES OF [facility] Urobilinogen Ql (U) Negative Normal Negative [facility] Comment on above: Order Comment: Speci men Type: URINE SPECIMENOrdering Facility: [facility] Address: [address] [place] [address] Performed By: #### L [id number] ####[facility] LABIA [id number] [place] [address] [place] aPTT PPPon 03-17-2023 aPTT Coag (PPP) [Time] 26.8 s Normal 23.0-32.4 [facility] Comment on above: Order Comment: Speci men Type: BLOOD SPECIMENOrdering Facility: [facility] Address: [address] [place] [address] Performed By: #### 1 4979-9, 88403-7 ####[facility] LABIA [id number] [place] [address] [place] ALLIED HEALTHon 03-16-2023 ALLIED HEALTH Normal [facility] CASE MGT INIT ASSESon 2022 CASE MGT INIT ASSES Normal [facility] CBC panel Auto (Bld)on 03-16 Erythrocyte distribution width (RBC) [Ratio] 13.2 % Normal 11.5-15.0 [facility] Comment on above: Order Comment: Speci men Type: BLOOD SPECIMENOrdering Facility: [facility] Address: [address] [place], [place] [address] Performed By: #### 5 8410-2 ####[facility] LABCLIA [id number] [address] [place] Hematocrit (Bld) [Volume fraction] 26.4 % Low 39.0-51.0 [facility] Comment on above: Order Comment: Speci men Type: BLOOD SPECIMENOrdering Facility: [facility] Address: [address] [place] [address] Performed By: #### 5 8410-2 ####[facility] LABCLIA [id number] [address] STATES OF [facility] Hemoglobin (Bld) [Mass/Vol] 9.0 g/dL Low 13.0-17.0 [facility] Comment on above: Order Comment: Speci men Type: BLOOD SPECIMENOrdering Facility: [facility] Address: [address] [place] [address] Performed By: #### 5 8410-2 ####[facility] LABCLIA [id number] [address] [place] MCH (RBC) [Entitic mass] 28.7 pg Normal 26.0-34.0 [facility] Comment on above: Order Comment: Speci men Type: BLOOD SPECIMENOrdering Facility: [facility] Address: [address] [place] [address] Performed By: #### 5 8410-2 ####[facility] LABIA [id number] [address] [place] MCHC (RBC) [Mass/Vol] 34.1 g/dL Normal 30.5-36.0 [facility] Comment on above: Order Comment: Speci men Type: BLOOD SPECIMENOrdering Facility: [facility] Address: [address] [place], [place] [address] Performed By: #### 5 8410-2 ####[facility] LABIA [id number] [address] [place] MCV (RBC) [Entitic vol] 84.1 fL Normal 80.0-100.0 [facility] [facility] [place] Comment on above: Order Comment: Speci men Type: BLOOD SPECIMENOrdering Facility: [facility] Address: [address] [place] [address] Performed By: #### 5 8410-2 ####[facility] LABCLIA [id number] [place] [address] [place] Nucleated RBC (Bld) [#/Vol] 10*3/uL Normal <0.01 [facility] [place] Comment on above: Order Comment: Speci men Type: BLOOD SPECIMENOrdering Facility: [facility] Address: [address] Performed By: #### 5 8410-2 ####[facility] LABIA [id number] [place] [address] [place] Platelet mean volume (Bld) [Entitic vol] 9.5 fL Normal 9.0-12.7 [facility] [place] Comment on above: Order Comment: Speci men Type: BLOOD SPECIMENOrdering Facility: [facility] Address: [address] Performed By: #### 5 8410-2 ####[facility] LABIA [id number] [place] [address] [place] Platelets (Bld) [#/Vol] 168 10*3/uL Normal 150-400 [facility] [place] Comment on above: Order Comment: Speci men Type: BLOOD SPECIMENOrdering Facility: [facility] Address: [address] Performed By: #### 5 8410-2 ####[facility] LABIA [id number] [place] [address] [place] RBC (Bld) [#/Vol] 3.14 10*6/uL Low 4.20-6.00 [facility] Comment on above: Order Comment: Speci men Type: BLOOD SPECIMENOrdering Facility: [facility] Address: [address] Performed By: #### 5 8410-2 ####[facility] LABIA [id number] [place] [address] [place] WBC (Bld) [#/Vol] 10.32 10*3/uL Normal 3.70-11.00 [facility] Comment on above: Order Comment: Speci men Type: BLOOD SPECIMENOrdering Facility: [facility] Address: [address] [place] [address] Performed By: #### 5 8410-2 ####[facility] LABIA [id number] [place] [address] [place] [facility] [place] CONSULT PROGon 03-16-2023 CONSULT PROG Normal [facility] [place] CYSTATIN Con 03-16-2023 Cystatin C [Mass/Vol] 0.54 mg/L Low 0.61-0.95 [facility] [place] Comment on above: Order Comment: Speci men Type: BLOOD SPECIMENOrdering Facility: [facility] Address: [address] [place] [address] Performed By: #### C YSTC ####[facility] [id number] [address] CYSTATIN C EGFR 146 mL/min/1.73m??? Normal >=60 [facility] [place] Comment on above: Order Comment: Speci men Type: BLOOD SPECIMENOrdering Facility: [facility] Address: [address] [place] [address] Result Comment: Mary mated Glomerular Filtration Rate (eGFR) is calculated using the 2012 CKD-EPI cystatin C equation. This equation utilizes serum cystatin C, sex, and age as parameters. The cystatin C assay has traceable calibration to the ERM-DA471/IFCC reference material. Refer to KDIGO guidelines for clinical interpretation. In patients with unstable renal function, e.g. those with acute kidney injury, the eGFR may not accurately reflect actual GFR. Performed By: #### C YSTC ####[facility] LABIA [id number] [place] [address] [place] Comprehensive metabolic 2000 panelon 03-16-2023 Albumin [Mass/Vol] 4.0 g/dL Normal 3.9-4.9 [facility] Comment on above: Order Comment: Speci men Type: BLOOD SPECIMENOrdering Facility: [facility] Address: [address] [place], [place] [address] Performed By: #### 1 9123-9, 2777-1, HSTNT, 95662-9 ####[facility] LABCLIA [id number] [place] [address] [place] ALP [Catalytic activity/Vol] 34 U/L Low 38-113 [facility] [place] Comment on above: Order Comment: Speci men Type: BLOOD SPECIMENOrdering Facility: [facility] Address: [address] [place] [address] Performed By: #### 1 9123-9, 2777-1, HSTNT, 86905-8 ####[facility] LABCLIA [id number] [place] [address] [place] ALT [Catalytic activity/Vol] 32 U/L Normal 10-54 [facility] [place] Comment on above: Order Comment: Speci men Type: BLOOD SPECIMENOrdering Facility: [facility] Address: [address] [place] [address] Performed By: #### 1 9123-9, 2777-1, HSTNT, 94738-7 ####[facility] LABCLIA [id number] [place] [address] [place] Anion gap [Moles/Vol] 12 mmol/L Normal 9-18 [facility] [place] Comment on above: Order Comment: Speci men Type: BLOOD SPECIMENOrdering Facility: [facility] Address: [address] [place], [place] [address] Performed By: #### 1 9123-9, 2777-1, HSTNT, 87089-2 ####[facility] LABCLIA [id number] [place] [id number] [place] AST [Catalytic activity/Vol] 42 U/L High 14-40 [facility] [place] Comment on above: Order Comment: Speci men Type: BLOOD SPECIMENOrdering Facility: [facility] Address: [address] [place] [address] Performed By: #### 1 9123-9, 2777-1, HSTNT, 13572-5 ####[facility] LABCLIA [id number] [place] [address] [place] Bilirubin [Mass/Vol] 1.4 mg/dL High 0.2-1.3 [facility] Comment on above: Order Comment: Speci men Type: BLOOD SPECIMENOrdering Facility: [facility] Address: [address] [place] [address] Performed By: #### 1 9123-9, 2777-1, HSTNT, 19255-0 ####[facility] LABCLIA [id number] [address] STATES OF [facility] Calcium [Mass/Vol] 8.4 mg/dL Low 8.5-10.2 [facility] Comment on above: Order Comment: Speci men Type: BLOOD SPECIMENOrdering Facility: [facility] Address: [address] [place] [address] Performed By: #### 1 9123-9, 2777-1, HSTNT, 65577-5 ####[facility] LABCLIA [id number] [place] [address] [place] Chloride [Moles/Vol] 106 mmol/L High 97-105 [facility] Comment on above: Order Comment: Speci men Type: BLOOD SPECIMENOrdering Facility: [facility] Address: [address] [place] [address] Performed By: #### 1 9123-9, 2777-1, HSTNT, 38452-5 ####[facility] LABCLIA [id number] [address] [place] CO2 [Moles/Vol] 25 mmol/L Normal 22-30 [facility] [place] Comment on above: Order Comment: Frantz thurman Type: BLOOD SPECIMENOrdering Facility: [facility] Address: [address] [place] [address] Performed By: #### 1 9123-9, 2777-1, HSTNT, ####[facility] LABCLIA [id number] [place] [address] [place] Creatinine [Mass/Vol] 0.28 mg/dL Low 0.73-1.22 [facility] [place] Comment on above: Order Comment: Frantz men Type: BLOOD SPECIMENOrdering Facility: [facility] Address: [address] [place] [address] Performed By: #### 1 9123-9, 2776-10, HSTNT, ####[facility] LABIA [id number] [place] [address] [place] GFR/1.73 sq M.predicted among non-blacks MDRD (S/P/Bld) [Vol rate/Area] mL/min/{1.73_m2} Normal >=60 [facility] [place] Comment on above: Order Comment: Frantz thurman Type: BLOOD SPECIMENOrdering Facility: [facility] Address: [address] [place] [address] Result Comment: Mary mated Glomerular Filtration Rate (eGFR) is calculated using the 2020 CKD-EPI creatinine equation. This equation utilizes serum creatinine, sex, and age as parameters. The creatinine assay has traceable calibration to isotope dilution-mass spectrometry. Refer to KDIGO guidelines for clinical interpretation. In patients with unstable renal function, e.g. those with acute kidney injury, the eGFR may not accurately reflect actual GFR. Performed By: #### 1 9123-9, 277-1, HSTNT, 50318-6 ####[facility] LABCLIA [id number] [place] [address] [place] Glucose [Mass/Vol] 97 mg/dL Normal 74-99 [facility] Comment on above: Order Comment: Speci men Type: BLOOD SPECIMENOrdering Facility: [facility] Address: [address] [place], [place] [address] Result Comment: The [place] Diabetes Association (ADA) provides guidance for cutoff values for fasting glucose and random glucose. The ADA defines fasting as no caloric intake for at least 8 hours. Fasting plasma glucose results between 100 to 125 mg/dL indicate increased risk for diabetes (prediabetes).Fasting plasma glucose results greater than or equal to 126 mg/dL meet the criteria for diagnosis of diabetes. In the absence of unequivocal hyperglycemia, results should be confirmed by repeat testing. In a patient with classic symptoms of hyperglycemia or hyperglycemic crisis, random plasma glucose results greater than or equal to 200 mg/dL meet the criteria for diagnosis of diabetes.Reference: Standards of Medical Care in Diabetes 2016, [place] [employer] Association. Diabetes Care. 2016.39(Suppl 1). Performed By: #### 1 9123-9, 2777-1, HSTNT, 72294-7 ####[facility] LABCLIA [id number] [place] [address] [place] Potassium [Moles/Vol] 3.6 mmol/L Low 3.7-5.1 [facility] [place] Comment on above: Order Comment: Frantz thurman Type: BLOOD SPECIMENOrdering Facility: [facility] Address: [address] [place], [place] [address] Performed By: #### 1 9123-9, 2777-1, HSTNT, 00600-8 ####[facility] LABCLIA [id number] [place] [address] [place] Protein [Mass/Vol] 5.6 g/dL Low 6.3-8.0 [facility] Comment on above: Order Comment: Rosalindi cuca Type: BLOOD SPECIMENOrdering Facility: [facility] Address: [address] [place], [place] [address] Performed By: #### 1 9123-9, 2777-1, HSTNT, 18073-5 ####[facility] LABCLIA [id number] [place] [address] [place] Sodium [Moles/Vol] 143 mmol/L Normal 136-144 [facility] Comment on above: Order Comment: Speci men Type: BLOOD SPECIMENOrdering Facility: [facility] Address: [address] [place] [address] Performed By: #### 1 9123-9, 2777-1, HSTNT, 40158-0 ####[facility] LABCLIA [id number] [place] [address] [place] Urea nitrogen [Mass/Vol] 2 mg/dL Low 9-24 [facility] [place] Comment on above: Order Comment: Speci men Type: BLOOD SPECIMENOrdering Facility: [facility] Address: [address] [place] [address] Performed By: #### 1 9123-9, 277-1, HSTNT, ####[facility] LABIA [id number] [place] [address] [place] HIGH SENSITIVITY TROPONIN To n 03-16-2023 HIGH SENSITIVITY OMAR 10 ng/L Normal <12 [facility] Comment on above: Order Comment: Speci men Type: BLOOD SPECIMENOrdering Facility: [facility] Address: [address] [place] [address] Result Comment: When assessing risk for acute coronary syndromes: In patients undergoing blood draw greater than or equal to 2 hours from symptom onset, with history of very low to moderate risk and non-ischemic ECG, an initial hs-Troponin T less than 12 ng/L AND a 1 hour delta hs-Troponin T less than 3 ng/L should be considered very low risk for 30 day MACE. Performed By: #### 1 9123-9, 2777-1, HSTNT, ####[facility] LABCLIA [id number] [place] [id number] [place] Magnesium SerPl-mCncon 03-16 Magnesium [Mass/Vol] 1.9 mg/dL Normal 1.7-2.3 [facility] Comment on above: Order Comment: Frantz thurman Type: BLOOD SPECIMENOrdering Facility: [facility] Address: [address] [place], [place] [address] Performed By: #### 1 9123-9, 2777-1, HSTNT, 46466-2 ####[facility] LABCLIA [id number] [place] [address] [place] PT EDon 03-16-2023 PT ED Normal [facility] PT panel Coag (PPP)on 2022 INR Coag (PPP) [Relative time] 1.3 {INR} Normal 0.9-1.3 [facility] Comment on above: Order Comment: Frantz thurman Type: BLOOD SPECIMENOrdering Facility: [facility] Address: [address] [place] [address] Result Comment: Gale min K Antagonist (VKA) Therapeutic Range: INR 2 to 3 (Target INR of 2.5)Note: For patients treated with VKA drugs, such as warfarin, the [place] [employer] 2012 Guideline recommends a therapeutic INR range of 2 to 3 (target INR of 2.5). This recommendation includes high-risk patients with antiphospholipid syndrome with previous arterial or venous thromboembolism, current-generation mechanical or bioprosthetic aortic heart valve replacement.Note: Patients with mechanical aortic valve replacement and additional risk factors for thromboembolic events (atrial fibrillation, previous thromboembolism, LV dysfunction, hypercoagulable conditions) or an older generation mechanical AVR (i.e., ball in-Cage) or any mechanical MVR should have a INR therapeutic range of 2.5 to 3.5 (target INR of 3).Grayson GH, et al. Chest 2012, 141:7S-47SNishimura RA, et al. [facility] 2017, 70: 252-289 Performed By: #### 3 4528-0, 08252-1 ####[facility] LABCLIA [id number] [place] [address] [place] PT Coag (PPP) [Time] 13.3 s High 9.7-13.0 [facility] Comment on above: Order Comment: Speci men Type: BLOOD SPECIMENOrdering Facility: [facility] Address: [address] Performed By: #### 3 4528-0, 21338-8 ####[facility] LABCLIA [id number] [place] [id number] [place] Phosphate SerPl-mCncon 03-16 Phosphate [Mass/Vol] 2.0 mg/dL Low 2.7-4.8 [facility] Comment on above: Order Comment: Speci men Type: BLOOD SPECIMENOrdering Facility: [facility] Address: [address] Performed By: #### 1 9123-9, 2777-1, HSTNT, 95541-2 ####[facility] LABCLIA [id number] [place] [address] [place] THERAPY NTon 03-16-2023 THERAPY NT Normal [facility] XR CHEST 1V FRONTAL PORTon 0 03-16-2023 XR CHEST 1V FRONTAL PORT Normal [facility] aPTT PPPon 03-16-2023 aPTT Coag (PPP) [Time] 44.0 s High 23.0-32.4 [facility] [place] Comment on above: Order Comment: Speci men Type: BLOOD SPECIMENOrdering Facility: [facility] Address: [place] [address] Performed By: #### 3 4528-0, 12773-1 ####[facility] LABCLIA [id number] [place] [id number] [place] ALLIED HEALTHon 03-15-2023 ALLIED HEALTH Normal [facility] [place] ARTERIAL BLOOD GASESon 03-15 Base excess Calc (Bld) [Moles/Vol] 3 mmol/L High 0-2 [facility] [place] Comment on above: Order Comment: Speci men Type: ARTERIAL BLOOD SPECIMENOrdering Facility: [facility] Address: [address] Performed By: #### A LLBG ####[facility] LABIA [id number] [place] [address] [place] Body temperature 98.6 [degF] Normal [facility] Comment on above: Order Comment: Speci men Type: ARTERIAL BLOOD SPECIMENOrdering Facility: [facility] Address: [address] Performed By: #### A LLBG ####[facility] [id number] [place] [address] [place] Calcium.ionized (Bld) [Mass/Vol] 1.14 mmol/L Normal 1.08-1.30 [facility] [place] Comment on above: Order Comment: Speci men Type: ARTERIAL BLOOD SPECIMENOrdering Facility: [facility] Address: [address] [place] [address] Performed By: #### A LLBG ####[facility] [id number] [place] [address] [place] Calcium.ionized adjusted to pH 7.4 (BldA) [Moles/Vol] 1.16 mmol/L Normal 1.08-1.30 [facility] Comment on above: Order Comment: Speci men Type: ARTERIAL BLOOD SPECIMENOrdering Facility: [facility] Address: [address] Performed By: #### A LLBG ####[facility] [id number] [place] [address] [place] Carboxyhemoglobin (BldA) [Mass fraction] 0.8 % Normal 0.0-2.0 [facility] [place] Comment on above: Order Comment: Speci men Type: ARTERIAL BLOOD SPECIMENOrdering Facility: [facility] Address: [address] [place] [address] Result Comment: Carb oxyhemoglobin Reference Range for Smokers: 2.0-8.0% Performed By: #### A LLBG ####[facility] LABCLIA [id number] [place] [address] [place] CO2 (Bld) [Partial pressure] 41 mm Hg Normal 36-46 [facility] Comment on above: Order Comment: Speci men Type: ARTERIAL BLOOD SPECIMENOrdering Facility: [facility] Address: [address] [place] [address] Performed By: #### A LLBG ####[facility] LABCLIA [id number] [place] [address] [place] CO2 [Moles/Vol] 28 mmol/L Normal 22-28 [facility] [place] Comment on above: Order Comment: Speci men Type: ARTERIAL BLOOD SPECIMENOrdering Facility: [facility] Address: [address] [place] [address] Performed By: #### A LLBG ####[facility] LABCLIA [id number] [place] [address] [place] Glucose [Mass/Vol] 135 mg/dL High 60-105 [facility] Comment on above: Order Comment: Speci men Type: ARTERIAL BLOOD SPECIMENOrdering Facility: [facility] Address: [address] [place] [address] Performed By: #### A LLBG ####[facility] LABCLIA [id number] [place] [address] [place] HCO3 (Bld) [Moles/Vol] 26 mmol/L Normal 22-26 [facility] [place] Comment on above: Order Comment: Speci men Type: ARTERIAL BLOOD SPECIMENOrdering Facility: [facility] Address: [address] [place], [place] [address] Performed By: #### A LLBG ####[facility] LABCLIA [id number] [place] [address] [place] Hematocrit (Bld) [Volume fraction] 27.8 % Low 39.0-51.0 [facility] Comment on above: Order Comment: Speci men Type: ARTERIAL BLOOD SPECIMENOrdering Facility: [facility] Address: [address] Performed By: #### A LLBG ####[facility] LABCLIA [id number] [address] [place] Hemoglobin (Bld) [Mass/Vol] 9.0 g/dL Low 13.0-17.0 [facility] [place] Comment on above: Order Comment: Speci men Type: ARTERIAL BLOOD SPECIMENOrdering Facility: [facility] Address: [address] Performed By: #### A LLBG ####[facility] LABCLIA [id number] [address] [place] Lactate [Moles/Vol] 0.9 mmol/L Normal 0.5-2.2 [facility] Comment on above: Order Comment: Speci men Type: ARTERIAL BLOOD SPECIMENOrdering Facility: [facility] Address: [address] Performed By: #### A LLBG ####[facility] LABCLIA [id number] [address] [place] Methemoglobin (Bld) [Mass fraction] 1.5 % Normal 0.0-1.5 [facility] Comment on above: Order Comment: Speci men Type: ARTERIAL BLOOD SPECIMENOrdering Facility: [facility] Address: [address] Performed By: #### A LLBG ####[facility] LABCLIA [id number] [place] [address] [place] O2 THERAPY Ventilator Normal [facility] Comment on above: Order Comment: Speci men Type: ARTERIAL BLOOD SPECIMENOrdering Facility: [facility] Address: [address] Performed By: #### A LLBG ####[facility] LABCLIA [id number] [place] [address] [place] Oxygen (Bld) [Partial pressure] 135 mm Hg High 85-95 [facility] Comment on above: Order Comment: Speci men Type: ARTERIAL BLOOD SPECIMENOrdering Facility: [facility] Address: [address] [place] [address] Performed By: #### A LLBG ####[facility] LABIA [id number] [place] [address] [place] Oxyhemoglobin (BldA) [Mass fraction] 97 % Normal 95-98 [facility] Comment on above: Order Comment: Speci men Type: ARTERIAL BLOOD SPECIMENOrdering Facility: [facility] Address: [address] [place] [address] Performed By: #### A LLBG ####[facility] [id number] [place] [address] [place] pH (Bld) 7.43 [pH] Normal 7.35-7.45 [facility] Comment on above: Order Comment: Speci men Type: ARTERIAL BLOOD SPECIMENOrdering Facility: [facility] Address: [address] [place], [place] [address] Performed By: #### A LLBG ####[facility] [id number] [place] [address] [place] Potassium [Moles/Vol] 3.2 mmol/L Low 3.5-5.0 [facility] Comment on above: Order Comment: Speci men Type: ARTERIAL BLOOD SPECIMENOrdering Facility: [facility] Address: [address] [place], [place] [address] Performed By: #### A LLBG ####[facility] LABIA [id number] [place] [address] [place] Sodium [Moles/Vol] 140 mmol/L Normal 136-144 [facility] Comment on above: Order Comment: Speci men Type: ARTERIAL BLOOD SPECIMENOrdering Facility: [facility] Address: [address] Performed By: #### A LLBG ####[facility] LABIA [id number] [address] Base excess Calc (Bld) [Moles/Vol] 2 mmol/L Normal 0-2 [facility] Comment on above: Order Comment: Speci men Type: ARTERIAL BLOOD SPECIMENOrdering Facility: [facility] Address: [address] Performed By: #### A LLBG ####[facility] LABIA [id number] [address] [place] Body temperature 98.6 [degF] Normal [facility] Comment on above: Order Comment: Speci men Type: ARTERIAL BLOOD SPECIMENOrdering Facility: [facility] Address: [address] [place], [place] [address] Performed By: #### A LLBG ####[facility] [id number] [address] [place] Calcium.ionized (Bld) [Mass/Vol] 1.09 mmol/L Normal 1.08-1.30 [facility] [place] Comment on above: Order Comment: Speci men Type: ARTERIAL BLOOD SPECIMENOrdering Facility: [facility] Address: [address] Performed By: #### A LLBG ####[facility] LABIA [id number] [address] [place] Calcium.ionized adjusted to pH 7.4 (BldA) [Moles/Vol] 1.12 mmol/L Normal 1.08-1.30 [facility] [place] Comment on above: Order Comment: Speci men Type: ARTERIAL BLOOD SPECIMENOrdering Facility: [facility] Address: [address] [place], [place] [address] Performed By: #### A LLBG ####[facility] LABCLIA [id number] [place] [address] [place] Carboxyhemoglobin (BldA) [Mass fraction] 1.3 % Normal 0.0-2.0 [facility] [place] Comment on above: Order Comment: Speci men Type: ARTERIAL BLOOD SPECIMENOrdering Facility: [facility] Address: [address] [place] [address] Result Comment: Carb oxyhemoglobin Reference Range for Smokers: 2.0-8.0% Performed By: #### A LLBG ####[facility] LABCLIA [id number] [place] [address] [place] CO2 (Bld) [Partial pressure] 39 mm Hg Normal 36-46 [facility] [place] Comment on above: Order Comment: Speci men Type: ARTERIAL BLOOD SPECIMENOrdering Facility: [facility] Address: [address] [place], [place] [address] Performed By: #### A LLBG ####[facility] LABCLIA [id number] [place] [address] [place] CO2 [Moles/Vol] 27 mmol/L Normal 22-28 [facility] [place] Comment on above: Order Comment: Speci men Type: ARTERIAL BLOOD SPECIMENOrdering Facility: [facility] Address: [address] [place], [place] [address] Performed By: #### A LLBG ####[facility] LABCLIA [id number] [place] [address] [place] FIO2 30 % Normal [facility] [place] Comment on above: Order Comment: Speci men Type: ARTERIAL BLOOD SPECIMENOrdering Facility: [facility] Address: [address] [place], [place] [address] Performed By: #### A LLBG ####[facility] LABCLIA [id number] [place] [address] [place] Glucose [Mass/Vol] 140 mg/dL High 60-105 [facility] Comment on above: Order Comment: Speci men Type: ARTERIAL BLOOD SPECIMENOrdering Facility: [facility] Address: [address] Performed By: #### A LLBG ####[facility] LABCLIA [id number] [place] [address] [place] HCO3 (Bld) [Moles/Vol] 26 mmol/L Normal 22-26 [facility] [place] Comment on above: Order Comment: Speci men Type: ARTERIAL BLOOD SPECIMENOrdering Facility: [facility] Address: [address] Performed By: #### A LLBG ####[facility] LABIA [id number] [place] [address] [place] Hematocrit (Bld) [Volume fraction] 28.3 % Low 39.0-51.0 [facility] [place] Comment on above: Order Comment: Speci men Type: ARTERIAL BLOOD SPECIMENOrdering Facility: [facility] Address: [address] [place], [place] [address] Performed By: #### A LLBG ####[facility] LABIA [id number] [place] [address] [place] Hemoglobin (Bld) [Mass/Vol] 9.1 g/dL Low 13.0-17.0 [facility] Comment on above: Order Comment: Speci men Type: ARTERIAL BLOOD SPECIMENOrdering Facility: [facility] Address: [address] [place], [place] [address] Performed By: #### A LLBG ####[facility] LABIA [id number] [place] [address] [place] Lactate [Moles/Vol] 0.8 mmol/L Normal 0.5-2.2 [facility] Comment on above: Order Comment: Speci men Type: ARTERIAL BLOOD SPECIMENOrdering Facility: [facility] Address: [address] Performed By: #### A LLBG ####[facility] LABCLIA [id number] [place] [address] [place] Methemoglobin (Bld) [Mass fraction] 0.9 % Normal 0.0-1.5 [facility] [place] Comment on above: Order Comment: Speci men Type: ARTERIAL BLOOD SPECIMENOrdering Facility: [facility] Address: [address] [place] [address] Performed By: #### A LLBG ####[facility] LABCLIA [id number] [place] [address] [place] O2 THERAPY Ventilator Normal [facility] [place] Comment on above: Order Comment: Speci men Type: ARTERIAL BLOOD SPECIMENOrdering Facility: [facility] Address: [address] [place] [address] Performed By: #### A LLBG ####[facility] LABCLIA [id number] [place] [address] [place] Oxygen (Bld) [Partial pressure] 145 mm Hg High 85-95 [facility] [place] Comment on above: Order Comment: Speci men Type: ARTERIAL BLOOD SPECIMENOrdering Facility: [facility] Address: [address] [place], [place] [address] Performed By: #### A LLBG ####[facility] LABCLIA [id number] [place] [address] [place] Oxyhemoglobin (BldA) [Mass fraction] 97 % Normal 95-98 [facility] [place] Comment on above: Order Comment: Speci men Type: ARTERIAL BLOOD SPECIMENOrdering Facility: [facility] Address: [address] [place], [place] [address] Performed By: #### A LLBG ####[facility] LABCLIA [id number] [place] [address] [place] pH (Bld) 7.44 [pH] Normal 7.35-7.45 [facility] Comment on above: Order Comment: Speci men Type: ARTERIAL BLOOD SPECIMENOrdering Facility: [facility] Address: [address] [place] [address] Performed By: #### A LLBG ####[facility] LABCLIA [id number] [place] [address] [place] Potassium [Moles/Vol] 3.7 mmol/L Normal 3.5-5.0 [facility] [place] Comment on above: Order Comment: Speci men Type: ARTERIAL BLOOD SPECIMENOrdering Facility: [facility] Address: [address] [place] [address] Performed By: #### A LLBG ####[facility] LABCLIA [id number] [place] [address] [place] Sodium [Moles/Vol] 139 mmol/L Normal 136-144 [facility] Comment on above: Order Comment: Speci men Type: ARTERIAL BLOOD SPECIMENOrdering Facility: [facility] Address: [address] Performed By: #### A LLBG ####[facility] LABCLIA [id number] [place] [address] [place] Base excess Calc (Bld) [Moles/Vol] 4 mmol/L High 0-2 [facility] [place] Comment on above: Order Comment: Speci men Type: ARTERIAL BLOOD SPECIMENOrdering Facility: [facility] Address: [address] Performed By: #### A LLBG ####[facility] LABCLIA [id number] [place] [address] [place] Body temperature 98.06 [degF] Normal [facility] Comment on above: Order Comment: Speci men Type: ARTERIAL BLOOD SPECIMENOrdering Facility: [facility] Address: [address] Performed By: #### A LLBG ####[facility] LABCLIA [id number] [place] [address] [place] Calcium.ionized (Bld) [Mass/Vol] 1.10 mmol/L Normal 1.08-1.30 [facility] [place] Comment on above: Order Comment: Speci men Type: ARTERIAL BLOOD SPECIMENOrdering Facility: [facility] Address: [address] [place] [address] Performed By: #### A LLBG ####[facility] LABCLIA [id number] [place] [address] [place] Calcium.ionized adjusted to pH 7.4 (BldA) [Moles/Vol] 1.13 mmol/L Normal 1.08-1.30 [facility] Comment on above: Order Comment: Speci men Type: ARTERIAL BLOOD SPECIMENOrdering Facility: [facility] Address: [address] [place] [address] Performed By: #### A LLBG ####[facility] LABCLIA [id number] [place] [address] [place] Carboxyhemoglobin (BldA) [Mass fraction] 2.0 % Normal 0.0-2.0 [facility] Comment on above: Order Comment: Speci men Type: ARTERIAL BLOOD SPECIMENOrdering Facility: [facility] Address: [address] [place] [address] Result Comment: Carb oxyhemoglobin Reference Range for Smokers: 2.0-8.0% Performed By: #### A LLBG ####[facility] LABCLIA [id number] [place] [address] [place] CO2 (Bld) [Partial pressure] 40 mm Hg Normal 36-46 [facility] [place] Comment on above: Order Comment: Speci men Type: ARTERIAL BLOOD SPECIMENOrdering Facility: [facility] Address: [address] [place], [place] [address] Performed By: #### A LLBG ####[facility] LABCLIA [id number] [place] [address] [place] CO2 [Moles/Vol] 29 mmol/L High 22-28 [facility] [place] Comment on above: Order Comment: Speci men Type: ARTERIAL BLOOD SPECIMENOrdering Facility: [facility] Address: [address] Performed By: #### A LLBG ####[facility] LABCLIA [id number] [place] [address] [place] CO2 adjusted to patient's actual temperature (Bld) [Partial pressure] 39 mmHg Normal 36-46 [facility] [place] Comment on above: Order Comment: Speci men Type: ARTERIAL BLOOD SPECIMENOrdering Facility: [facility] Address: [address] Performed By: #### A LLBG ####[facility] LABCLIA [id number] [place] [address] [place] Glucose [Mass/Vol] 148 mg/dL High 60-105 [facility] Comment on above: Order Comment: Speci men Type: ARTERIAL BLOOD SPECIMENOrdering Facility: [facility] Address: [address] Performed By: #### A LLBG ####[facility] LABCLIA [id number] [place] [address] [place] HCO3 (Bld) [Moles/Vol] 27 mmol/L High 22-26 [facility] Comment on above: Order Comment: Speci men Type: ARTERIAL BLOOD SPECIMENOrdering Facility: [facility] Address: [address] Performed By: #### A LLBG ####[facility] LABCLIA [id number] [place] [address] [place] Hematocrit (Bld) [Volume fraction] 27.6 % Low 39.0-51.0 [facility] Comment on above: Order Comment: Speci men Type: ARTERIAL BLOOD SPECIMENOrdering Facility: [facility] Address: [address] Performed By: #### A LLBG ####[facility] LABIA [id number] [place] [address] [place] Hemoglobin (Bld) [Mass/Vol] 8.9 g/dL Low 13.0-17.0 [facility] Comment on above: Order Comment: Speci men Type: ARTERIAL BLOOD SPECIMENOrdering Facility: [facility] Address: [address] Performed By: #### A LLBG ####[facility] LABIA [id number] [place] [address] [place] Lactate [Moles/Vol] 1.0 mmol/L Normal 0.5-2.2 [facility] Comment on above: Order Comment: Speci men Type: ARTERIAL BLOOD SPECIMENOrdering Facility: [facility] Address: [address] Performed By: #### A LLBG ####[facility] LABIA [id number] [place] [address] [place] Methemoglobin (Bld) [Mass fraction] 1.8 % High 0.0-1.5 [facility] [place] Comment on above: Order Comment: Speci men Type: ARTERIAL BLOOD SPECIMENOrdering Facility: [facility] Address: [address] Performed By: #### A LLBG ####[facility] LABIA [id number] [place] [address] [place] O2 THERAPY Ventilator Normal [facility] Comment on above: Order Comment: Speci men Type: ARTERIAL BLOOD SPECIMENOrdering Facility: [facility] Address: [address] Performed By: #### A LLBG ####[facility] LABIA [id number] [place] [address] [place] Oxygen (Bld) [Partial pressure] 147 mm Hg High 85-95 [facility] Comment on above: Order Comment: Speci men Type: ARTERIAL BLOOD SPECIMENOrdering Facility: [facility] Address: [address] [place] [address] Performed By: #### A LLBG ####[facility] LABCLIA [id number] [place] [address] [place] Oxygen adjusted to patient's actual temperature (Bld) [Partial pressure] 146 mmHg High 85-95 [facility] Comment on above: Order Comment: Speci men Type: ARTERIAL BLOOD SPECIMENOrdering Facility: [facility] Address: [address] [place], [place] [address] Performed By: #### A LLBG ####[facility] LABCLIA [id number] [place] [address] [place] Oxyhemoglobin (BldA) [Mass fraction] 96 % Normal 95-98 [facility] [place] Comment on above: Order Comment: Speci men Type: ARTERIAL BLOOD SPECIMENOrdering Facility: [facility] Address: [address] [place], [place] [address] Performed By: #### A LLBG ####[facility] LABCLIA [id number] [place] [address] [place] pH (Bld) 7.45 [pH] Normal 7.35-7.45 [facility] Comment on above: Order Comment: Speci men Type: ARTERIAL BLOOD SPECIMENOrdering Facility: [facility] Address: [address] [place] [address] Performed By: #### A LLBG ####[facility] LABCLIA [id number] [place] [address] [place] pH adjusted to patient's actual temperature (Bld) 7.46 High 7.35-7.45 [facility] Comment on above: Order Comment: Speci men Type: ARTERIAL BLOOD SPECIMENOrdering Facility: [facility] Address: [address] [place] [address] Performed By: #### A LLBG ####[facility] LABCLIA [id number] [place] [address] [place] Potassium [Moles/Vol] 3.1 mmol/L Low 3.5-5.0 [facility] Comment on above: Order Comment: Speci men Type: ARTERIAL BLOOD SPECIMENOrdering Facility: [facility] Address: [address] Performed By: #### A LLBG ####[facility] LABIA [id number] [place] [address] [place] Sodium [Moles/Vol] 140 mmol/L Normal 136-144 [facility] Comment on above: Order Comment: Speci men Type: ARTERIAL BLOOD SPECIMENOrdering Facility: [facility] Address: [address] [place], [place] [address] Performed By: #### A LLBG ####[facility] LABIA [id number] [place] [address] [place] Base deficit (BldA) [Moles/Vol] -1 mmol/L Normal -2-0 [facility] Comment on above: Order Comment: Speci men Type: ARTERIAL BLOOD SPECIMENOrdering Facility: [facility] Address: [address] [place], [place] [address] Performed By: #### A LLBG ####[facility] LABIA [id number] [place] [address] [place] Body temperature 97.88 [degF] Normal [facility] Comment on above: Order Comment: Speci men Type: ARTERIAL BLOOD SPECIMENOrdering Facility: [facility] Address: [address] [place] [address] Performed By: #### A LLBG ####[facility] LABIA [id number] [place] [address] [place] Calcium.ionized (Bld) [Mass/Vol] 1.15 mmol/L Normal 1.08-1.30 [facility] Comment on above: Order Comment: Speci men Type: ARTERIAL BLOOD SPECIMENOrdering Facility: [facility] Address: [address] [place] [address] Performed By: #### A LLBG ####[facility] LABCLIA [id number] [place] [address] [place] Calcium.ionized adjusted to pH 7.4 (BldA) [Moles/Vol] 1.15 mmol/L Normal 1.08-1.30 [facility] Comment on above: Order Comment: Speci men Type: ARTERIAL BLOOD SPECIMENOrdering Facility: [facility] Address: [address] [place] [address] Performed By: #### A LLBG ####[facility] LABCLIA [id number] [place] [address] [place] Carboxyhemoglobin (BldA) [Mass fraction] 0.9 % Normal 0.0-2.0 [facility] Comment on above: Order Comment: Speci men Type: ARTERIAL BLOOD SPECIMENOrdering Facility: [facility] Address: [address] [place] [address] Result Comment: Carb oxyhemoglobin Reference Range for Smokers: 2.0-8.0% Performed By: #### A LLBG ####[facility] LABCLIA [id number] [place] [address] [place] CO2 (Bld) [Partial pressure] 38 mm Hg Normal 36-46 [facility] Comment on above: Order Comment: Speci men Type: ARTERIAL BLOOD SPECIMENOrdering Facility: [facility] Address: [address] [place] [address] Performed By: #### A LLBG ####[facility] LABCLIA [id number] [place] [address] [place] CO2 [Moles/Vol] 24 mmol/L Normal 22-28 [facility] Comment on above: Order Comment: Speci men Type: ARTERIAL BLOOD SPECIMENOrdering Facility: [facility] Address: [address] Performed By: #### A LLBG ####[facility] LABCLIA [id number] [place] [address] [place] CO2 adjusted to patient's actual temperature (Bld) [Partial pressure] 37 mmHg Normal 36-46 [facility] Comment on above: Order Comment: Speci men Type: ARTERIAL BLOOD SPECIMENOrdering Facility: [facility] Address: [address] Performed By: #### A LLBG ####[facility] LABCLIA [id number] [place] [address] [place] FIO2 30 % Normal [facility] Comment on above: Order Comment: Speci men Type: ARTERIAL BLOOD SPECIMENOrdering Facility: [facility] Address: [address] Performed By: #### A LLBG ####[facility] LABCLIA [id number] [place] [address] [place] Glucose [Mass/Vol] 171 mg/dL High 60-105 [facility] Comment on above: Order Comment: Speci men Type: ARTERIAL BLOOD SPECIMENOrdering Facility: [facility] Address: [address] Performed By: #### A LLBG ####[facility] LABCLIA [id number] [place] [address] [place] HCO3 (Bld) [Moles/Vol] 23 mmol/L Normal 22-26 [facility] Comment on above: Order Comment: Speci men Type: ARTERIAL BLOOD SPECIMENOrdering Facility: [facility] Address: [address] Performed By: #### A LLBG ####[facility] LABCLIA [id number] [address] [place] Hematocrit (Bld) [Volume fraction] 27.6 % Low 39.0-51.0 [facility] Comment on above: Order Comment: Speci men Type: ARTERIAL BLOOD SPECIMENOrdering Facility: [facility] Address: [address] [place] [address] Performed By: #### A LLBG ####[facility] LABCLIA [id number] [place] [address] [place] Hemoglobin (Bld) [Mass/Vol] 8.9 g/dL Low 13.0-17.0 [facility] Comment on above: Order Comment: Speci men Type: ARTERIAL BLOOD SPECIMENOrdering Facility: [facility] Address: [address] [place] [address] Performed By: #### A LLBG ####[facility] LABCLIA [id number] [address] [place] Lactate [Moles/Vol] 1.4 mmol/L Normal 0.5-2.2 [facility] Comment on above: Order Comment: Speci men Type: ARTERIAL BLOOD SPECIMENOrdering Facility: [facility] Address: [address] [place], [place] [address] Performed By: #### A LLBG ####[facility] LABIA [id number] [place] [address] [place] Methemoglobin (Bld) [Mass fraction] 1.5 % Normal 0.0-1.5 [facility] Comment on above: Order Comment: Speci men Type: ARTERIAL BLOOD SPECIMENOrdering Facility: [facility] Address: [address] [place], [place] [address] Performed By: #### A LLBG ####[facility] LABCLIA [id number] [place] [address] [place] O2 THERAPY Ventilator Normal [facility] Comment on above: Order Comment: Speci men Type: ARTERIAL BLOOD SPECIMENOrdering Facility: [facility] Address: [address] [place], [place] Performed By: #### A LLBG ####[facility] LABCLIA [id number] [address] [place] Oxygen (Bld) [Partial pressure] 162 mm Hg High 85-95 [facility] Comment on above: Order Comment: Speci men Type: ARTERIAL BLOOD SPECIMENOrdering Facility: [facility] Address: [address] [place] [address] Performed By: #### A LLBG ####[facility] LABCLIA [id number] [address] [place] Oxygen adjusted to patient's actual temperature (Bld) [Partial pressure] 160 mmHg High 85-95 [facility] Comment on above: Order Comment: Speci men Type: ARTERIAL BLOOD SPECIMENOrdering Facility: [facility] Address: [address] [place] [address] Performed By: #### A LLBG ####[facility] LABCLIA [id number] [place] [address] [place] Oxyhemoglobin (BldA) [Mass fraction] 97 % Normal 95-98 [facility] Comment on above: Order Comment: Speci men Type: ARTERIAL BLOOD SPECIMENOrdering Facility: [facility] Address: [address] [place], [place] [address] Performed By: #### A LLBG ####[facility] LABCLIA [id number] [place] [address] [place] PEEP/CPAP 8 cmH2O Normal [facility] Comment on above: Order Comment: Speci men Type: ARTERIAL BLOOD SPECIMENOrdering Facility: [facility] Address: [address] [place] [address] Performed By: #### A LLBG ####[facility] LABCLIA [id number] [place] [address] [place] pH (Bld) 7.40 [pH] Normal 7.35-7.45 [facility] Comment on above: Order Comment: Speci men Type: ARTERIAL BLOOD SPECIMENOrdering Facility: [facility] Address: [address] [place] [address] Performed By: #### A LLBG ####[facility] LABIA [id number] [place] [address] [place] pH adjusted to patient's actual temperature (Bld) 7.40 Normal 7.35-7.45 [facility] Comment on above: Order Comment: Speci men Type: ARTERIAL BLOOD SPECIMENOrdering Facility: [facility] Address: [address] [place], [place] [address] Performed By: #### A LLBG ####[facility] LABIA [id number] [place] [address] [place] Potassium [Moles/Vol] 4.0 mmol/L Normal 3.5-5.0 [facility] Comment on above: Order Comment: Speci men Type: ARTERIAL BLOOD SPECIMENOrdering Facility: [facility] Address: [address] [place], [place] [address] Performed By: #### A LLBG ####[facility] LABIA [id number] [place] [address] [place] Sodium [Moles/Vol] 141 mmol/L Normal 136-144 [facility] Comment on above: Order Comment: Speci men Type: ARTERIAL BLOOD SPECIMENOrdering Facility: [facility] Address: [address] [place], [place] [address] Performed By: #### A LLBG ####[facility] LABIA [id number] [place] [address] [place] Base deficit (BldA) [Moles/Vol] -2 mmol/L Normal -2-0 [facility] Comment on above: Order Comment: Speci men Type: ARTERIAL BLOOD SPECIMENOrdering Facility: [facility] Address: [address] Performed By: #### A LLBG ####[facility] LABIA [id number] [place] [address] [place] Body temperature 97.52 [degF] Normal [facility] Comment on above: Order Comment: Speci men Type: ARTERIAL BLOOD SPECIMENOrdering Facility: [facility] Address: [address] Performed By: #### A LLBG ####[facility] [id number] [place] [address] [place] Calcium.ionized (Bld) [Mass/Vol] 1.24 mmol/L Normal 1.08-1.30 [facility] Comment on above: Order Comment: Speci men Type: ARTERIAL BLOOD SPECIMENOrdering Facility: [facility] Address: [address] Performed By: #### A LLBG ####[facility] [id number] [place] [address] [place] Calcium.ionized adjusted to pH 7.4 (BldA) [Moles/Vol] 1.19 mmol/L Normal 1.08-1.30 [facility] Comment on above: Order Comment: Speci men Type: ARTERIAL BLOOD SPECIMENOrdering Facility: [facility] Address: [address] Performed By: #### A LLBG ####[facility] [id number] [place] [address] [place] Carboxyhemoglobin (BldA) [Mass fraction] 1.2 % Normal 0.0-2.0 [facility] Comment on above: Order Comment: Speci men Type: ARTERIAL BLOOD SPECIMENOrdering Facility: [facility] Address: [address] Result Comment: Carb oxyhemoglobin Reference Range for Smokers: 2.0-8.0% Performed By: #### A LLBG ####[facility] LABCLIA [id number] [place] [address] [place] CO2 (Bld) [Partial pressure] 45 mm Hg Normal 36-46 [facility] Comment on above: Order Comment: Speci men Type: ARTERIAL BLOOD SPECIMENOrdering Facility: [facility] Address: [address] [place] [address] Performed By: #### A LLBG ####[facility] LABCLIA [id number] [place] [address] [place] CO2 [Moles/Vol] 24 mmol/L Normal 22-28 [facility] Comment on above: Order Comment: Speci men Type: ARTERIAL BLOOD SPECIMENOrdering Facility: [facility] Address: [address] [place] [address] Performed By: #### A LLBG ####[facility] LABCLIA [id number] [address] [place] CO2 adjusted to patient's actual temperature (Bld) [Partial pressure] 43 mmHg Normal 36-46 [facility] Comment on above: Order Comment: Speci men Type: ARTERIAL BLOOD SPECIMENOrdering Facility: [facility] Address: [address] [place], [place] [address] Performed By: #### A LLBG ####[facility] LABCLIA [id number] [place] [address] [place] FIO2 30 % Normal [facility] Comment on above: Order Comment: Speci men Type: ARTERIAL BLOOD SPECIMENOrdering Facility: [facility] Address: [address] [place], [place] [address] Performed By: #### A LLBG ####[facility] LABCLIA [id number] [place] [address] [place] Glucose [Mass/Vol] 169 mg/dL High 60-105 [facility] Comment on above: Order Comment: Speci men Type: ARTERIAL BLOOD SPECIMENOrdering Facility: [facility] Address: [address] Performed By: #### A LLBG ####[facility] LABCLIA [id number] [place] [address] [place] HCO3 (Bld) [Moles/Vol] 23 mmol/L Normal 22-26 [facility] Comment on above: Order Comment: Speci men Type: ARTERIAL BLOOD SPECIMENOrdering Facility: [facility] Address: [address] [place], [place] [address] Performed By: #### A LLBG ####[facility] LABCLIA [id number] [place] [address] [place] Hematocrit (Bld) [Volume fraction] 24.8 % Low 39.0-51.0 [facility] Comment on above: Order Comment: Speci men Type: ARTERIAL BLOOD SPECIMENOrdering Facility: [facility] Address: [address] [place], [place] [address] Performed By: #### A LLBG ####[facility] LABCLIA [id number] [place] [address] [place] Hemoglobin (Bld) [Mass/Vol] 8.0 g/dL Low 13.0-17.0 [facility] Comment on above: Order Comment: Speci men Type: ARTERIAL BLOOD SPECIMENOrdering Facility: [facility] Address: [address] [place], [place] [address] Performed By: #### A LLBG ####[facility] LABCLIA [id number] [place] [address] [place] Lactate [Moles/Vol] 0.6 mmol/L Normal 0.5-2.2 [facility] Comment on above: Order Comment: Speci men Type: ARTERIAL BLOOD SPECIMENOrdering Facility: [facility] Address: [address] [place], [place] [address] Performed By: #### A LLBG ####[facility] LABCLIA [id number] [place] [address] [place] Methemoglobin (Bld) [Mass fraction] 1.1 % Normal 0.0-1.5 [facility] Comment on above: Order Comment: Speci men Type: ARTERIAL BLOOD SPECIMENOrdering Facility: [facility] Address: [address] Performed By: #### A LLBG ####[facility] LABCLIA [id number] [place] [address] [place] O2 THERAPY Ventilator Normal [facility] Comment on above: Order Comment: Speci men Type: ARTERIAL BLOOD SPECIMENOrdering Facility: [facility] Address: [address] Performed By: #### A LLBG ####[facility] LABIA [id number] [place] [address] [place] Oxygen (Bld) [Partial pressure] 157 mm Hg High 85-95 [facility] Comment on above: Order Comment: Speci men Type: ARTERIAL BLOOD SPECIMENOrdering Facility: [facility] Address: [address] [place] [address] Performed By: #### A LLBG ####[facility] LABCLIA [id number] [place] [id number] [place] Oxygen adjusted to patient's actual temperature (Bld) [Partial pressure] 155 mmHg High 85-95 [facility] Comment on above: Order Comment: Speci men Type: ARTERIAL BLOOD SPECIMENOrdering Facility: [facility] Address: [address] [place] [address] Performed By: #### A LLBG ####[facility] LABIA [id number] [place] [address] [place] Oxyhemoglobin (BldA) [Mass fraction] 97 % Normal 95-98 [facility] Comment on above: Order Comment: Speci men Type: ARTERIAL BLOOD SPECIMENOrdering Facility: [facility] Address: [address] Performed By: #### A LLBG ####[facility] LABCLIA [id number] [place] [address] [place] PEEP/CPAP 10 cmH2O Normal [facility] Comment on above: Order Comment: Speci men Type: ARTERIAL BLOOD SPECIMENOrdering Facility: [facility] Address: [address] [place], [place] [address] Performed By: #### A LLBG ####[facility] LABCLIA [id number] [place] [address] [place] pH (Bld) 7.33 [pH] Low 7.35-7.45 [facility] Comment on above: Order Comment: Speci men Type: ARTERIAL BLOOD SPECIMENOrdering Facility: [facility] Address: [address] [place], [place] [address] Performed By: #### A LLBG ####[facility] LABCLIA [id number] [place] [address] [place] pH adjusted to patient's actual temperature (Bld) 7.34 Low 7.35-7.45 [facility] Comment on above: Order Comment: Speci men Type: ARTERIAL BLOOD SPECIMENOrdering Facility: [facility] Address: [address] [place], [place] [address] Performed By: #### A LLBG ####[facility] LABCLIA [id number] [place] [address] [place] Potassium [Moles/Vol] 3.2 mmol/L Low 3.5-5.0 [facility] Comment on above: Order Comment: Speci men Type: ARTERIAL BLOOD SPECIMENOrdering Facility: [facility] Address: [address] [place], [place] [address] Performed By: #### A LLBG ####[facility] LABCLIA [id number] [place] [address] [place] Sodium [Moles/Vol] 144 mmol/L Normal 136-144 [facility] Comment on above: Order Comment: Speci men Type: ARTERIAL BLOOD SPECIMENOrdering Facility: [facility] Address: [address] [place] [address] Performed By: #### A LLBG ####[facility] LABCLIA [id number] [address] [place] Base deficit (BldA) [Moles/Vol] -6 mmol/L Low -2-0 [facility] Comment on above: Order Comment: Speci men Type: ARTERIAL BLOOD SPECIMENOrdering Facility: [facility] Address: [address] [place] [address] Performed By: #### A LLBG ####[facility] LABCLIA [id number] [address] [place] Body temperature 98.6 [degF] Normal [facility] Comment on above: Order Comment: Speci men Type: ARTERIAL BLOOD SPECIMENOrdering Facility: [facility] Address: [address] [place], [place] [address] Performed By: #### A LLBG ####[facility] LABCLIA [id number] [address] [place] Calcium.ionized (Bld) [Mass/Vol] 1.15 mmol/L Normal 1.08-1.30 [facility] Comment on above: Order Comment: Speci men Type: ARTERIAL BLOOD SPECIMENOrdering Facility: [facility] Address: [address] [place], [place] [address] Performed By: #### A LLBG ####[facility] LABCLIA [id number] [place] [address] [place] Calcium.ionized adjusted to pH 7.4 (BldA) [Moles/Vol] 1.05 mmol/L Low 1.08-1.30 [facility] Comment on above: Order Comment: Speci men Type: ARTERIAL BLOOD SPECIMENOrdering Facility: [facility] Address: [address] [place] [address] Performed By: #### A LLBG ####[facility] LABCLIA [id number] [address] [place] Carboxyhemoglobin (BldA) [Mass fraction] 1.3 % Normal 0.0-2.0 [facility] Comment on above: Order Comment: Speci men Type: ARTERIAL BLOOD SPECIMENOrdering Facility: [facility] Address: [address] Result Comment: Carb oxyhemoglobin Reference Range for Smokers: 2.0-8.0% Performed By: #### A LLBG ####[facility] LABCLIA [id number] [place] [address] [place] CO2 (Bld) [Partial pressure] 50 mm Hg High 36-46 [facility] Comment on above: Order Comment: Speci men Type: ARTERIAL BLOOD SPECIMENOrdering Facility: [facility] Address: [address] [place] [address] Performed By: #### A LLBG ####[facility] LABCLIA [id number] [place] [address] [place] CO2 [Moles/Vol] 22 mmol/L Normal 22-28 [facility] Comment on above: Order Comment: Speci men Type: ARTERIAL BLOOD SPECIMENOrdering Facility: [facility] Address: [address] Performed By: #### A LLBG ####[facility] LABCLIA [id number] [place] [address] [place] FIO2 40 % Normal [facility] Comment on above: Order Comment: Speci men Type: ARTERIAL BLOOD SPECIMENOrdering Facility: [facility] Address: [address] Performed By: #### A LLBG ####[facility] LABCLIA [id number] [place] [address] [place] Glucose [Mass/Vol] 188 mg/dL High 60-105 [facility] Comment on above: Order Comment: Speci men Type: ARTERIAL BLOOD SPECIMENOrdering Facility: [facility] Address: [address] [place] [address] Performed By: #### A LLBG ####[facility] LABCLIA [id number] [place] [address] [place] HCO3 (Bld) [Moles/Vol] 21 mmol/L Low 22-26 [facility] Comment on above: Order Comment: Speci men Type: ARTERIAL BLOOD SPECIMENOrdering Facility: [facility] Address: [address] [place] [address] Performed By: #### A LLBG ####[facility] LABCLIA [id number] [place] [address] [place] Hematocrit (Bld) [Volume fraction] 24.7 % Low 39.0-51.0 [facility] Comment on above: Order Comment: Speci men Type: ARTERIAL BLOOD SPECIMENOrdering Facility: [facility] Address: [address] [place], [place] [address] Performed By: #### A LLBG ####[facility] LABCLIA [id number] [place] [address] [place] Hemoglobin (Bld) [Mass/Vol] 7.9 g/dL Low 13.0-17.0 [facility] Comment on above: Order Comment: Speci men Type: ARTERIAL BLOOD SPECIMENOrdering Facility: [facility] Address: [address] [place], [place] [address] Performed By: #### A LLBG ####[facility] LABCLIA [id number] [place] [address] [place] Lactate [Moles/Vol] 0.5 mmol/L Normal 0.5-2.2 [facility] Comment on above: Order Comment: Speci men Type: ARTERIAL BLOOD SPECIMENOrdering Facility: [facility] Address: [address] Performed By: #### A LLBG ####[facility] LABCLIA [id number] [address] [place] Methemoglobin (Bld) [Mass fraction] 0.9 % Normal 0.0-1.5 [facility] Comment on above: Order Comment: Speci men Type: ARTERIAL BLOOD SPECIMENOrdering Facility: [facility] Address: [address] Performed By: #### A LLBG ####[facility] LABCLIA [id number] [place] [address] [place] O2 THERAPY Ventilator Normal [facility] Comment on above: Order Comment: Speci men Type: ARTERIAL BLOOD SPECIMENOrdering Facility: [facility] Address: [address] Performed By: #### A LLBG ####[facility] LABCLIA [id number] [place] [address] [place] Oxygen (Bld) [Partial pressure] 189 mm Hg High 85-95 [facility] Comment on above: Order Comment: Speci men Type: ARTERIAL BLOOD SPECIMENOrdering Facility: [facility] Address: [address] [place] [address] Performed By: #### A LLBG ####[facility] LABCLIA [id number] [place] [address] [place] Oxyhemoglobin (BldA) [Mass fraction] 97 % Normal 95-98 [facility] Comment on above: Order Comment: Speci men Type: ARTERIAL BLOOD SPECIMENOrdering Facility: [facility] Address: [address] [place] [address] Performed By: #### A LLBG ####[facility] LABCLIA [id number] [place] [address] [place] pH (Bld) 7.24 [pH] Low 7.35-7.45 [facility] Comment on above: Order Comment: Speci men Type: ARTERIAL BLOOD SPECIMENOrdering Facility: [facility] Address: [address] [place] [address] Performed By: #### A LLBG ####[facility] LABCLIA [id number] [place] [address] [place] Potassium [Moles/Vol] 3.3 mmol/L Low 3.5-5.0 [facility] Comment on above: Order Comment: Speci men Type: ARTERIAL BLOOD SPECIMENOrdering Facility: [facility] Address: [address] [place] [address] Performed By: #### A LLBG ####[facility] LABCLIA [id number] [place] [address] [place] Sodium [Moles/Vol] 143 mmol/L Normal 136-144 [facility] Comment on above: Order Comment: Speci men Type: ARTERIAL BLOOD SPECIMENOrdering Facility: [facility] Address: [address] [place] [address] Performed By: #### A LLBG ####[facility] LABCLIA [id number] [place] [address] [place] Basic metabolic 2000 panelon 03-15-2023 Anion gap [Moles/Vol] 10 mmol/L Normal 9-18 [facility] Comment on above: Order Comment: Speci men Type: BLOOD SPECIMENOrdering Facility: [facility] Address: [address] [place] [address] Performed By: #### 2 777-1, 28179-3 ####[facility] LABCLIA [id number] [place] [address] [place] Calcium [Mass/Vol] 8.2 mg/dL Low 8.5-10.2 [facility] Comment on above: Order Comment: Speci men Type: BLOOD SPECIMENOrdering Facility: [facility] Address: [address] [place] [address] Performed By: #### 2 777-1, 85277-9 ####[facility] LABCLIA [id number] [place] [address] [place] Chloride [Moles/Vol] 106 mmol/L High 97-105 [facility] Comment on above: Order Comment: Speci men Type: BLOOD SPECIMENOrdering Facility: [facility] Address: [address] [place] [address] Performed By: #### 2 777-1, 15843-2 ####[facility] LABCLIA [id number] [place] [address] [place] CO2 [Moles/Vol] 26 mmol/L Normal 22-30 [facility] Comment on above: Order Comment: Speci men Type: BLOOD SPECIMENOrdering Facility: [facility] Address: [address] [place] [address] Performed By: #### 2 777-1, 58754-6 ####[facility] LABIA [id number] [place] [address] [place] Creatinine [Mass/Vol] 0.32 mg/dL Low 0.73-1.22 [facility] Comment on above: Order Comment: Speci men Type: BLOOD SPECIMENOrdering Facility: [facility] Address: [address] [place] [address] Performed By: #### 2 777-1, 72574-6 ####[facility] LABIA [id number] [place] [address] [place] GFR/1.73 sq M.predicted among non-blacks MDRD (S/P/Bld) [Vol rate/Area] mL/min/{1.73_m2} Normal >=60 [facility] Comment on above: Order Comment: Speci men Type: BLOOD SPECIMENOrdering Facility: [facility] Address: [facility] [place] [id number] Result Comment: Mary mated Glomerular Filtration Rate (eGFR) is calculated using the 2020 CKD-EPI creatinine equation. This equation utilizes serum creatinine, sex, and age as parameters. The creatinine assay has traceable calibration to isotope dilution-mass spectrometry. Refer to KDIGO guidelines for clinical interpretation. In patients with unstable renal function, e.g. those with acute kidney injury, the eGFR may not accurately reflect actual GFR. Performed By: #### 2 777-1, 47707-8 ####[facility] LABIA [id number] [place] [address] [place] Glucose [Mass/Vol] 138 mg/dL High 74-99 [facility] Comment on above: Order Comment: Specdevante thurman Type: BLOOD SPECIMENOrdering Facility: [facility] Address: [address] [address] Result Comment: The [place] Diabetes Association (ADA) provides guidance for cutoff values for fasting glucose and random glucose. The ADA defines fasting as no caloric intake for at least 8 hours. Fasting plasma glucose results between 100 to 125 mg/dL indicate increased risk for diabetes (prediabetes).Fasting plasma glucose results greater than or equal to 126 mg/dL meet the criteria for diagnosis of diabetes. In the absence of unequivocal hyperglycemia, results should be confirmed by repeat testing. In a patient with classic symptoms of hyperglycemia or hyperglycemic crisis, random plasma glucose results greater than or equal to 200 mg/dL meet the criteria for diagnosis of diabetes.Reference: Standards of Medical Care in Diabetes 2016, [place] [employer] Association. Diabetes Care. 2016.39(Suppl 1). Performed By: #### 2 777-1, 30745-2 ####[facility] LABIA [id number] [place] [address] [place] Potassium [Moles/Vol] 3.3 mmol/L Low 3.7-5.1 [facility] Comment on above: Order Comment: Specdevante men Type: BLOOD SPECIMENOrdering Facility: [facility] Address: [address] [address] Performed By: #### 2 777-1, 80372-1 ####[facility] LABCLIA [id number] [place] [address] [place] Sodium [Moles/Vol] 142 mmol/L Normal 136-144 [facility] Comment on above: Order Comment: Speci men Type: BLOOD SPECIMENOrdering Facility: [facility] Address: [address] [place] [address] Performed By: #### 2 777-1, 57953-7 ####[facility] LABCLIA [id number] [place] [address] [place] Urea nitrogen [Mass/Vol] 3 mg/dL Low 9- [facility] Comment on above: Order Comment: Speci men Type: BLOOD SPECIMENOrdering Facility: [facility] Address: [address] [place] [address] Performed By: #### 2 777-1, 99108-1 ####[facility] LABIA [id number] [address] [place] CBC panel Auto (Bld)on 03-15 Erythrocyte distribution width (RBC) [Ratio] 12.7 % Normal 11.5-15.0 [facility] Comment on above: Order Comment: Speci men Type: BLOOD SPECIMENOrdering Facility: [facility] Address: [address] [place] [address] Performed By: #### 5 8410-2 ####[facility] LABIA [id number] [address] [place] Hematocrit (Bld) [Volume fraction] 25.4 % Low 39.0-51.0 [facility] Comment on above: Order Comment: Speci men Type: BLOOD SPECIMENOrdering Facility: [facility] Address: [address] [place] [address] Performed By: #### 5 8410-2 ####[facility] LABIA [id number] [address] STATES OF [facility] Hemoglobin (Bld) [Mass/Vol] 8.6 g/dL Low 13.0-17.0 [facility] Comment on above: Order Comment: Speci men Type: BLOOD SPECIMENOrdering Facility: [facility] Address: [address] [place] [address] Performed By: #### 5 8410-2 ####[facility] LABIA [id number] [address] MCH (RBC) [Entitic mass] 28.2 pg Normal 26.0-34.0 [facility] Comment on above: Order Comment: Speci men Type: BLOOD SPECIMENOrdering Facility: [facility] Address: [address] [place] [address] Performed By: #### 5 8410-2 ####[facility] LABIA [id number] [address] STATES [facility] MCHC (RBC) [Mass/Vol] 33.9 g/dL Normal 30.5-36.0 [facility] Comment on above: Order Comment: Speci men Type: BLOOD SPECIMENOrdering Facility: [facility] Address: [address] [place] [address] Performed By: #### 5 8410-2 ####[facility] LABIA [id number] [address] [place] MCV (RBC) [Entitic vol] 83.3 fL Normal 80.0-100.0 [facility] Comment on above: Order Comment: Speci men Type: BLOOD SPECIMENOrdering Facility: [facility] Address: [address] [place], [place] [address] Performed By: #### 5 8410-2 ####[facility] LABCLIA [id number] [address] [place] Nucleated RBC (Bld) [#/Vol] 10*3/uL Normal <0.01 [facility] Comment on above: Order Comment: Speci men Type: BLOOD SPECIMENOrdering Facility: [facility] Address: [address] [place], [place] [address] Performed By: #### 5 8410-2 ####[facility] LABIA [id number] [place] [address] [place] Platelet mean volume (Bld) [Entitic vol] 9.3 fL Normal 9.0-12.7 [facility] Comment on above: Order Comment: Speci men Type: BLOOD SPECIMENOrdering Facility: [facility] Address: [address] [place] [address] Performed By: #### 5 8410-2 ####[facility] LABIA [id number] [place] [address] [place] Platelets (Bld) [#/Vol] 186 10*3/uL Normal 150-400 [facility] Comment on above: Order Comment: Speci men Type: BLOOD SPECIMENOrdering Facility: [facility] Address: [address] [place], [place] [address] Performed By: #### 5 8410-2 ####[facility] LABIA [id number] [place] [address] [place] RBC (Bld) [#/Vol] 3.05 10*6/uL Low 4.20-6.00 [facility] Comment on above: Order Comment: Speci men Type: BLOOD SPECIMENOrdering Facility: [facility] Address: [address] [place], [place] [address] Performed By: #### 5 8410-2 ####[facility] LABIA [id number] [place] [address] [place] WBC (Bld) [#/Vol] 7.46 10*3/uL Normal 3.70-11.00 [facility] Comment on above: Order Comment: Speci men Type: BLOOD SPECIMENOrdering Facility: [facility] Address: [address] Performed By: #### 5 8410-2 ####[facility] LABCLIA [id number] [place] [address] [place] CONSULT PROGon 03-15-2023 CONSULT PROG Normal [facility] Comprehensive metabolic 2000 panelon 03-15-2023 Albumin [Mass/Vol] 4.7 g/dL Normal 3.9-4.9 [facility] Comment on above: Order Comment: Speci men Type: BLOOD SPECIMENOrdering Facility: [facility] Address: [address] [address] Performed By: #### 2 4323-8, HSTNT, , 2776-10 ####[facility] LABIA [id number] [place] [address] [place] ALP [Catalytic activity/Vol] 21 U/L Low 38-113 [facility] Comment on above: Order Comment: Speci men Type: BLOOD SPECIMENOrdering Facility: [facility] Address: [address] [address] Performed By: #### 2 4323-8, HSTNT, , 2776-10 ####[facility] LABIA [id number] [place] [address] [place] ALT [Catalytic activity/Vol] 27 U/L Normal 10-54 [facility] Comment on above: Order Comment: Speci men Type: BLOOD SPECIMENOrdering Facility: [facility] Address: [address] Performed By: #### 2 4323-8, HSTNT, , 2776-10 ####[facility] LABCLIA [id number] [place] [address] [place] Anion gap [Moles/Vol] 14 mmol/L Normal 9-18 [facility] Comment on above: Order Comment: Speci men Type: BLOOD SPECIMENOrdering Facility: [facility] Address: [address] [place], [place] [address] Performed By: #### 2 4323-8, HSTNT, , 2776-10 ####[facility] LABCLIA [id number] [place] [address] [place] AST [Catalytic activity/Vol] 42 U/L High 14-40 [facility] Comment on above: Order Comment: Speci men Type: BLOOD SPECIMENOrdering Facility: [facility] Address: [address] [place], [place] [address] Performed By: #### 2 4323-8, HSTNT, , 2776-10 ####[facility] LABCLIA [id number] [place] [address] [place] Bilirubin [Mass/Vol] 2.2 mg/dL High 0.2-1.3 [facility] Comment on above: Order Comment: Speci men Type: BLOOD SPECIMENOrdering Facility: [facility] Address: [address] [place], [place] [address] Performed By: #### 2 4323-8, HSTNT, , 2776-10 ####[facility] LABCLIA [id number] [place] [address] [place] Calcium [Mass/Vol] 8.4 mg/dL Low 8.5-10.2 [facility] Comment on above: Order Comment: Speci men Type: BLOOD SPECIMENOrdering Facility: [facility] Address: [address] [place] [address] Performed By: #### 2 4323-8, HSTNT, , 2776-10 ####[facility] LABCLIA [id number] [place] [id number] [place] Chloride [Moles/Vol] 107 mmol/L High 97-105 [facility] Comment on above: Order Comment: Speci men Type: BLOOD SPECIMENOrdering Facility: [facility] Address: [address] [place] [address] Performed By: #### 2 4323-8, HSTNT, , 2776-10 ####[facility] LABCLIA [id number] [place] [address] [place] CO2 [Moles/Vol] 21 mmol/L Low 22-30 [facility] Comment on above: Order Comment: Speci men Type: BLOOD SPECIMENOrdering Facility: [facility] Address: [address] [place] [address] Performed By: #### 2 4323-8, HSTNT, , 2776-10 ####[facility] LABCLIA [id number] [place] [address] [place] Creatinine [Mass/Vol] 0.36 mg/dL Low 0.73-1.22 [facility] Comment on above: Order Comment: Speci men Type: BLOOD SPECIMENOrdering Facility: [facility] Address: [address] [place] [address] Performed By: #### 2 4323-8, HSTNT, , 2776-10 ####[facility] LABIA [id number] [place] [address] [place] GFR/1.73 sq M.predicted among non-blacks MDRD (S/P/Bld) [Vol rate/Area] mL/min/{1.73_m2} Normal >=60 [facility] Comment on above: Order Comment: Speci men Type: BLOOD SPECIMENOrdering Facility: [facility] Address: [address] [place] [address] Result Comment: Mary mated Glomerular Filtration Rate (eGFR) is calculated using the 2020 CKD-EPI creatinine equation. This equation utilizes serum creatinine, sex, and age as parameters. The creatinine assay has traceable calibration to isotope dilution-mass spectrometry. Refer to KDIGO guidelines for clinical interpretation. In patients with unstable renal function, e.g. those with acute kidney injury, the eGFR may not accurately reflect actual GFR. Performed By: #### 2 4323-8, HSTNT, , 2776-10 ####[facility] LABCLIA [id number] [address] [address] [place] Glucose [Mass/Vol] 171 mg/dL High 74-99 [facility] Comment on above: Order Comment: Frantz thurman Type: BLOOD SPECIMENOrdering Facility: [facility] Address: [address] [place] [address] Result Comment: The [place] Diabetes Association (ADA) provides guidance for cutoff values for fasting glucose and random glucose. The ADA defines fasting as no caloric intake for at least 8 hours. Fasting plasma glucose results between 100 to 125 mg/dL indicate increased risk for diabetes (prediabetes).Fasting plasma glucose results greater than or equal to 126 mg/dL meet the criteria for diagnosis of diabetes. In the absence of unequivocal hyperglycemia, results should be confirmed by repeat testing. In a patient with classic symptoms of hyperglycemia or hyperglycemic crisis, random plasma glucose results greater than or equal to 200 mg/dL meet the criteria for diagnosis of diabetes.Reference: Standards of Medical Care in Diabetes 2016, [place] [employer]. Diabetes Care. 2016.39(Suppl 1). Performed By: #### 2 4323-8, HSTNT, , 2776-10 ####[facility] LABCLIA [id number] [place] [address] [place] Potassium [Moles/Vol] 4.1 mmol/L Normal 3.7-5.1 [facility] Comment on above: Order Comment: Frantz thurman Type: BLOOD SPECIMENOrdering Facility: [facility] Address: [address] [place] [address] Performed By: #### 2 4323-8, HSTNT, , 2776-10 ####[facility] LABCLIA [id number] [address] [address] [place] Protein [Mass/Vol] 5.9 g/dL Low 6.3-8.0 [facility] Comment on above: Order Comment: Speci men Type: BLOOD SPECIMENOrdering Facility: [facility] Address: [address] [id number] Performed By: #### 2 4323-8, HSTNT, , 2776-10 ####[facility] LABCLIA [id number] [place] [address] [place] Sodium [Moles/Vol] 142 mmol/L Normal 136-144 [facility] Comment on above: Order Comment: Speci men Type: BLOOD SPECIMENOrdering Facility: [facility] Address: [address] Performed By: #### 2 4323-8, HSTNT, , 2776-10 ####[facility] LABCLIA [id number] [place] [address] [place] Urea nitrogen [Mass/Vol] 5 mg/dL Low - [facility] Comment on above: Order Comment: Speci men Type: BLOOD SPECIMENOrdering Facility: [facility] Address: [address] Performed By: #### 2 4323-8, HSTNT, , 2776-10 ####[facility] LABCLIA [id number] [place] [address] [place] HIGH SENSITIVITY TROPONIN To n 03-15-2023 HIGH SENSITIVITY OMAR 12 ng/L High <12 [facility] Comment on above: Order Comment: Speci men Type: BLOOD SPECIMENOrdering Facility: [facility] Address: [address] Result Comment: When assessing risk for acute coronary syndromes: In patients undergoing blood draw greater than or equal to 2 hours from symptom onset, with history of very low to moderate risk and non-ischemic ECG, an initial hs-Troponin T less than 12 ng/L AND a 1 hour delta hs-Troponin T less than 3 ng/L should be considered very low risk for 30 day MACE. Performed By: #### 2 4323-8, HSTNT, , 2776- ####[facility] LABCLIA [id number] [place] [id number] [place] Magnesium SerPl-mCncon 03-15 Magnesium [Mass/Vol] 2.1 mg/dL Normal 1.7-2.3 [facility] Comment on above: Order Comment: Speci men Type: BLOOD SPECIMENOrdering Facility: [facility] Address: [address] [place] [address] Performed By: #### 2 4323-8, HSTNT, , 2777-1 ####[facility] LABIA [id number] [place] [address] [place] POTASSIUM BLDon 03-15-2023 Potassium [Moles/Vol] 3.6 mmol/L Low 3.7-5.1 [facility] Comment on above: Order Comment: Speci cuca Type: BLOOD SPECIMENOrdering Facility: [facility] Address: [address] [place] [address] Performed By: #### K 1 ####[facility] LABIA [id number] [place] [address] [place] PT panel Coag (PPP)on 2022 INR Coag (PPP) [Relative time] 1.5 {INR} High 0.9-1.3 [facility] Comment on above: Order Comment: Rosalindi cuca Type: BLOOD SPECIMENOrdering Facility: [facility] Address: [address] [place] [address] Result Comment: Gale min K Antagonist (VKA) Therapeutic Range: INR 2 to 3 (Target INR of 2.5)Note: For patients treated with VKA drugs, such as warfarin, the [place] [employer] 2012 Guideline recommends a therapeutic INR range of 2 to 3 (target INR of 2.5). This recommendation includes high-risk patients with antiphospholipid syndrome with previous arterial or venous thromboembolism, current-generation mechanical or bioprosthetic aortic heart valve replacement.Note: Patients with mechanical aortic valve replacement and additional risk factors for thromboembolic events (atrial fibrillation, previous thromboembolism, LV dysfunction, hypercoagulable conditions) or an older generation mechanical AVR (i.e., ball in-Cage) or any mechanical MVR should have a INR therapeutic range of 2.5 to 3.5 (target INR of 3).Grayson GH, et al. Chest 2012, 141:7S-47SNishfrancia RA, et al. [facility] 2017, 70: 252-289 Performed By: #### 3 4528-0 ####[facility] [id number] [place] [address] [place] PT Coag (PPP) [Time] 15.4 s High 9.7-13.0 [facility] Comment on above: Order Comment: Frantz thurman Type: BLOOD SPECIMENOrdering Facility: [facility] Address: [address] [place] [address] Performed By: #### 3 4528-0 ####[facility] [id number] [place] [address] [place] INR Coag (PPP) [Relative time] 1.6 {INR} High 0.9-1.3 [facility] Comment on above: Order Comment: Frantz thurman Type: BLOOD SPECIMENOrdering Facility: [facility] Address: [address] [place] [address] Result Comment: Gale min K Antagonist (VKA) Therapeutic Range: INR 2 to 3 (Target INR of 2.5)Note: For patients treated with VKA drugs, such as warfarin, the [place] [employer] 2012 Guideline recommends a therapeutic INR range of 2 to 3 (target INR of 2.5). This recommendation includes high-risk patients with antiphospholipid syndrome with previous arterial or venous thromboembolism, current-generation mechanical or bioprosthetic aortic heart valve replacement.Note: Patients with mechanical aortic valve replacement and additional risk factors for thromboembolic events (atrial fibrillation, previous thromboembolism, LV dysfunction, hypercoagulable conditions) or an older generation mechanical AVR (i.e., ball in-Cage) or any mechanical MVR should have a INR therapeutic range of 2.5 to 3.5 (target INR of 3).Grayson GH, et al. Chest 2012, 141:7S-47SNishimura RA, et al. [facility] 2017, 70: 252-289 Performed By: #### 3 4528-0, 60100-9 ####[facility] LABCLIA [id number] [place] [address] [place] PT Coag (PPP) [Time] 16.1 s High 9.7-13.0 [facility] Comment on above: Order Comment: Speci men Type: BLOOD SPECIMENOrdering Facility: [facility] Address: [address] [place] [address] Performed By: #### 3 4528-0, 22852-9 ####[facility] LABIA [id number] [place] [address] [place] Phosphate SerPl-mCncon 03-15 Phosphate [Mass/Vol] 2.4 mg/dL Low 2.7-4.8 [facility] Comment on above: Order Comment: Speci men Type: BLOOD SPECIMENOrdering Facility: [facility] Address: [address] [place] [address] Performed By: #### 2 777-1, 26830-4 ####[facility] LABIA [id number] [place] [address] [place] Phosphate [Mass/Vol] 0.9 mg/dL Low 2.7-4.8 [facility] Comment on above: Order Comment: Speci men Type: BLOOD SPECIMENOrdering Facility: [facility] Address: [address] [place] [address] Performed By: #### 2 4323-8, HSTNT, 97878-4, 2777-1 ####[facility] LABCLIA [id number] [place] [address] [place] Procalcitonin SerPl-mCncon 0 03-15-2023 Procalcitonin [Mass/Vol] 0.47 ng/mL High <0.09 [facility] Comment on above: Order Comment: Speci men Type: BLOOD SPECIMENOrdering Facility: [facility] Address: [address] [place], [place] [address] Result Comment: For a guided interpretation of test results, please visit the Change in Procalcitonin Calculator, [email or web address]. Performed By: #### 3 3959-8 ####[facility] LABCLIA [id number] [address] OF [place] THERAPY NTon 03-15-2023 THERAPY NT Normal [facility] THERAPY NT Normal [facility] XR CHEST 1V FRONTAL PORTon 0 03-15-2023 XR CHEST 1V FRONTAL PORT Normal [facility] aPTT PPPon 03-15-2023 aPTT Coag (PPP) [Time] 66.3 s High 23.0-32.4 [facility] Comment on above: Order Comment: Speci men Type: BLOOD SPECIMENOrdering Facility: [facility] Address: [address] [place] [address] Performed By: #### 3 4528-0, 08292-4 ####[facility] LABIA [id number] [address] OF [place] ANES POSTPROC EVALon 023 ANES POSTPROC EVAL Normal [facility] ANES PRE-OPon 03-14-2023 ANES PRE-OP Normal [facility] ARTERIAL BLOOD GASESon 03-14 Base deficit (BldA) [Moles/Vol] -8 mmol/L Low -2-0 [facility] Comment on above: Order Comment: Speci men Type: ARTERIAL BLOOD SPECIMENOrdering Facility: [facility] Address: [address] [place] [address] Performed By: #### A LLBG ####[facility] LABIA [id number] [place] [id number] [place] Body temperature 98.24 [degF] Normal [facility] Comment on above: Order Comment: Speci men Type: ARTERIAL BLOOD SPECIMENOrdering Facility: [facility] Address: [address] [place] [address] Performed By: #### A LLBG ####[facility] LABCLIA [id number] [place] [address] [place] Calcium.ionized (Bld) [Mass/Vol] 1.22 mmol/L Normal 1.08-1.30 [facility] Comment on above: Order Comment: Speci men Type: ARTERIAL BLOOD SPECIMENOrdering Facility: [facility] Address: [address] [place] [address] Performed By: #### A LLBG ####[facility] LABCLIA [id number] [place] [address] [place] Calcium.ionized adjusted to pH 7.4 (BldA) [Moles/Vol] 1.15 mmol/L Normal 1.08-1.30 [facility] [place] Comment on above: Order Comment: Speci men Type: ARTERIAL BLOOD SPECIMENOrdering Facility: [facility] Address: [address] [place] [address] Performed By: #### A LLBG ####[facility] LABCLIA [id number] [place] [address] [place] Carboxyhemoglobin (BldA) [Mass fraction] 1.1 % Normal 0.0-2.0 [facility] [place] Comment on above: Order Comment: Speci men Type: ARTERIAL BLOOD SPECIMENOrdering Facility: [facility] Address: [address] [place] [address] Result Comment: Carb oxyhemoglobin Reference Range for Smokers: 2.0-8.0% Performed By: #### A LLBG ####[facility] LABCLIA [id number] [place] [address] [place] CO2 (Bld) [Partial pressure] 38 mm Hg Normal 36-46 [facility] [place] Comment on above: Order Comment: Speci men Type: ARTERIAL BLOOD SPECIMENOrdering Facility: [facility] Address: [address] Performed By: #### A LLBG ####[facility] LABCLIA [id number] [place] [address] [place] CO2 [Moles/Vol] 19 mmol/L Low 22-28 [facility] [place] Comment on above: Order Comment: Speci men Type: ARTERIAL BLOOD SPECIMENOrdering Facility: [facility] Address: [address] Performed By: #### A LLBG ####[facility] LABCLIA [id number] [place] [address] [place] CO2 adjusted to patient's actual temperature (Bld) [Partial pressure] 38 mmHg Normal 36-46 [facility] [place] Comment on above: Order Comment: Speci men Type: ARTERIAL BLOOD SPECIMENOrdering Facility: [facility] Address: [address] Performed By: #### A LLBG ####[facility] LABCLIA [id number] [place] [address] [place] FIO2 40 % Normal [facility] [place] Comment on above: Order Comment: Speci men Type: ARTERIAL BLOOD SPECIMENOrdering Facility: [facility] Address: [address] [place] [address] Performed By: #### A LLBG ####[facility] LABCLIA [id number] [place] [address] [place] Glucose [Mass/Vol] 169 mg/dL High 60-105 [facility] Comment on above: Order Comment: Speci men Type: ARTERIAL BLOOD SPECIMENOrdering Facility: [facility] Address: [address] Performed By: #### A LLBG ####[facility] LABCLIA [id number] [place] [address] [place] HCO3 (Bld) [Moles/Vol] 18 mmol/L Low 22-26 [facility] [place] Comment on above: Order Comment: Speci men Type: ARTERIAL BLOOD SPECIMENOrdering Facility: [facility] Address: [address] [place] [address] Performed By: #### A LLBG ####[facility] LABCLIA [id number] [place] [address] [place] Hematocrit (Bld) [Volume fraction] 28.2 % Low 39.0-51.0 [facility] [place] Comment on above: Order Comment: Speci men Type: ARTERIAL BLOOD SPECIMENOrdering Facility: [facility] Address: [address] [place] [address] Performed By: #### A LLBG ####[facility] LABCLIA [id number] [place] [address] [place] Hemoglobin (Bld) [Mass/Vol] 9.1 g/dL Low 13.0-17.0 [facility] [place] Comment on above: Order Comment: Speci men Type: ARTERIAL BLOOD SPECIMENOrdering Facility: [facility] Address: [address] [place] [address] Performed By: #### A LLBG ####[facility] LABCLIA [id number] [place] [address] [place] Lactate [Moles/Vol] 1.2 mmol/L Normal 0.5-2.2 [facility] Comment on above: Order Comment: Speci men Type: ARTERIAL BLOOD SPECIMENOrdering Facility: [facility] Address: [address] [place], [place] [address] Performed By: #### A LLBG ####[facility] LABCLIA [id number] [place] [address] [place] Methemoglobin (Bld) [Mass fraction] 1.3 % Normal 0.0-1.5 [facility] Comment on above: Order Comment: Speci men Type: ARTERIAL BLOOD SPECIMENOrdering Facility: [facility] Address: [address] Performed By: #### A LLBG ####[facility] LABCLIA [id number] [address] [place] O2 THERAPY Ventilator Normal [facility] Comment on above: Order Comment: Speci men Type: ARTERIAL BLOOD SPECIMENOrdering Facility: [facility] Address: [address] [place] [address] Performed By: #### A LLBG ####[facility] LABCLIA [id number] [place] [address] [place] Oxygen (Bld) [Partial pressure] 187 mm Hg High 85-95 [facility] [place] Comment on above: Order Comment: Speci men Type: ARTERIAL BLOOD SPECIMENOrdering Facility: [facility] Address: [address] [place] [address] Performed By: #### A LLBG ####[facility] LABCLIA [id number] [address] [place] Oxygen adjusted to patient's actual temperature (Bld) [Partial pressure] 186 mmHg High 85-95 [facility] [place] Comment on above: Order Comment: Speci men Type: ARTERIAL BLOOD SPECIMENOrdering Facility: [facility] Address: [address] [place] [address] Performed By: #### A LLBG ####[facility] LABCLIA [id number] [place] [address] [place] Oxyhemoglobin (BldA) [Mass fraction] 97 % Normal 95-98 [facility] [place] Comment on above: Order Comment: Speci men Type: ARTERIAL BLOOD SPECIMENOrdering Facility: [facility] Address: [address] [place] [address] Performed By: #### A LLBG ####[facility] LABCLIA [id number] [place] [address] [place] pH (Bld) 7.29 [pH] Low 7.35-7.45 [facility] Comment on above: Order Comment: Speci men Type: ARTERIAL BLOOD SPECIMENOrdering Facility: [facility] Address: [address] [place] [address] Performed By: #### A LLBG ####[facility] LABCLIA [id number] [place] [address] [place] pH adjusted to patient's actual temperature (Bld) 7.29 Low 7.35-7.45 [facility] [place] Comment on above: Order Comment: Speci men Type: ARTERIAL BLOOD SPECIMENOrdering Facility: [facility] Address: [address] [place] [address] Performed By: #### A LLBG ####[facility] LABIA [id number] [place] [address] [place] Potassium [Moles/Vol] 3.6 mmol/L Normal 3.5-5.0 [facility] Comment on above: Order Comment: Speci men Type: ARTERIAL BLOOD SPECIMENOrdering Facility: [facility] Address: [address] [place] [address] Performed By: #### A LLBG ####[facility] LABIA [id number] [place] [address] [place] Sodium [Moles/Vol] 144 mmol/L Normal 136-144 [facility] Comment on above: Order Comment: Speci men Type: ARTERIAL BLOOD SPECIMENOrdering Facility: [facility] Address: [address] [place], [place] [address] Performed By: #### A LLBG ####[facility] LABCLIA [id number] [place] [address] [place] Base deficit (BldA) [Moles/Vol] -14 mmol/L Low -2-0 [facility] Comment on above: Order Comment: Speci men Type: ARTERIAL BLOOD SPECIMENOrdering Facility: [facility] Address: [address] [place] [address] Performed By: #### A LLBG ####[facility] LABIA [id number] [place] [address] [place] Calcium.ionized (Bld) [Mass/Vol] 1.20 mmol/L Normal 1.08-1.30 [facility] Comment on above: Order Comment: Speci men Type: ARTERIAL BLOOD SPECIMENOrdering Facility: [facility] Address: [address] [place] [address] Performed By: #### A LLBG ####[facility] LABIA [id number] [place] [address] [place] Calcium.ionized adjusted to pH 7.4 (BldA) [Moles/Vol] 1.08 mmol/L Normal 1.08-1.30 [facility] Comment on above: Order Comment: Speci men Type: ARTERIAL BLOOD SPECIMENOrdering Facility: [facility] Address: [address] [place] [address] Performed By: #### A LLBG ####[facility] LABIA [id number] [place] [address] [place] Carboxyhemoglobin (BldA) [Mass fraction] 0.8 % Normal 0.0-2.0 [facility] Comment on above: Order Comment: Speci men Type: ARTERIAL BLOOD SPECIMENOrdering Facility: [facility] Address: [address] [place], [place] [address] Result Comment: Carb oxyhemoglobin Reference Range for Smokers: 2.0-8.0% Performed By: #### A LLBG ####[facility] LABIA [id number] [place] [address] [place] CO2 (Bld) [Partial pressure] 32 mm Hg Low 36-46 [facility] Comment on above: Order Comment: Speci men Type: ARTERIAL BLOOD SPECIMENOrdering Facility: [facility] Address: [address] [place] Performed By: #### A LLBG ####[facility] LABCLIA [id number] [place] [address] [place] CO2 [Moles/Vol] 13 mmol/L Low 22-28 [facility] Comment on above: Order Comment: Speci men Type: ARTERIAL BLOOD SPECIMENOrdering Facility: [facility] Address: [address] [place] [address] Performed By: #### A LLBG ####[facility] LABCLIA [id number] [address] [place] CO2 adjusted to patient's actual temperature (Bld) [Partial pressure] 32 mmHg Low 36-46 [facility] Comment on above: Order Comment: Speci men Type: ARTERIAL BLOOD SPECIMENOrdering Facility: [facility] Address: [address] [place] [address] Performed By: #### A LLBG ####[facility] LABCLIA [id number] [place] [address] [place] Glucose [Mass/Vol] 157 mg/dL High 60-105 [facility] Comment on above: Order Comment: Speci men Type: ARTERIAL BLOOD SPECIMENOrdering Facility: [facility] Address: [address] [place] Performed By: #### A LLBG ####[facility] LABCLIA [id number] [place] [address] [place] HCO3 (Bld) [Moles/Vol] 12 mmol/L Low 22-26 [facility] Comment on above: Order Comment: Speci men Type: ARTERIAL BLOOD SPECIMENOrdering Facility: [facility] Address: [address] [place] [address] Performed By: #### A LLBG ####[facility] LABCLIA [id number] [place] [address] [place] Hematocrit (Bld) [Volume fraction] 33.9 % Low 39.0-51.0 [facility] Comment on above: Order Comment: Speci men Type: ARTERIAL BLOOD SPECIMENOrdering Facility: [facility] Address: [address] [place], [place] [address] Performed By: #### A LLBG ####[facility] LABCLIA [id number] [place] [address] [place] Hemoglobin (Bld) [Mass/Vol] 11.0 g/dL Low 13.0-17.0 [facility] Comment on above: Order Comment: Speci men Type: ARTERIAL BLOOD SPECIMENOrdering Facility: [facility] Address: [address] [place] [address] Performed By: #### A LLBG ####[facility] LABCLIA [id number] [place] [address] [place] Lactate [Moles/Vol] 1.5 mmol/L Normal 0.5-2.2 [facility] Comment on above: Order Comment: Speci men Type: ARTERIAL BLOOD SPECIMENOrdering Facility: [facility] Address: [address] [place], [place] [address] Performed By: #### A LLBG ####[facility] LABCLIA [id number] [place] [address] [place] Methemoglobin (Bld) [Mass fraction] 1.1 % Normal 0.0-1.5 [facility] Comment on above: Order Comment: Speci men Type: ARTERIAL BLOOD SPECIMENOrdering Facility: [facility] Address: [address] [place], [place] [address] Performed By: #### A LLBG ####[facility] LABCLIA [id number] [place] [address] [place] Oxygen (Bld) [Partial pressure] 279 mm Hg High 85-95 [facility] Comment on above: Order Comment: Speci men Type: ARTERIAL BLOOD SPECIMENOrdering Facility: [facility] Address: [address] Performed By: #### A LLBG ####[facility] LABCLIA [id number] [place] [address] [place] Oxygen adjusted to patient's actual temperature (Bld) [Partial pressure] 279 mmHg High 85-95 [facility] Comment on above: Order Comment: Speci men Type: ARTERIAL BLOOD SPECIMENOrdering Facility: [facility] Address: [address] Performed By: #### A LLBG ####[facility] LABCLIA [id number] [place] [address] [place] Oxyhemoglobin (BldA) [Mass fraction] 97 % Normal 95-98 [facility] Comment on above: Order Comment: Speci men Type: ARTERIAL BLOOD SPECIMENOrdering Facility: [facility] Address: [address] [place], [place] [address] Performed By: #### A LLBG ####[facility] LABCLIA [id number] [place] [address] [place] pH (Bld) 7.21 [pH] Low 7.35-7.45 [facility] Comment on above: Order Comment: Speci men Type: ARTERIAL BLOOD SPECIMENOrdering Facility: [facility] Address: [address] Performed By: #### A LLBG ####[facility] LABCLIA [id number] [place] [address] [place] pH adjusted to patient's actual temperature (Bld) 7.21 Low 7.35-7.45 [facility] Comment on above: Order Comment: Speci men Type: ARTERIAL BLOOD SPECIMENOrdering Facility: [facility] Address: [address] Performed By: #### A LLBG ####[facility] LABCLIA [id number] [place] [address] [place] Potassium [Moles/Vol] 4.2 mmol/L Normal 3.5-5.0 [facility] Comment on above: Order Comment: Speci men Type: ARTERIAL BLOOD SPECIMENOrdering Facility: [facility] Address: [address] [place] [address] Performed By: #### A LLBG ####[facility] LABCLIA [id number] [place] [address] [place] Sodium [Moles/Vol] 139 mmol/L Normal 136-144 [facility] Comment on above: Order Comment: Speci men Type: ARTERIAL BLOOD SPECIMENOrdering Facility: [facility] Address: [address] [place] [address] Performed By: #### A LLBG ####[facility] LABIA [id number] [place] [address] [place] ARTERIAL BLOOD GASES WITH IO NIZED MAGNESIUMon 03-14-2023 Base deficit (BldA) [Moles/Vol] -11 mmol/L Low -2-0 [facility] Comment on above: Order Comment: Speci men Type: ARTERIAL BLOOD SPECIMENOrdering Facility: [facility] Address: [address] [place], [place] [address] Performed By: #### A LLMG ####[facility] LABIA [id number] [place] [address] [place] Calcium.ionized (Bld) [Mass/Vol] 1.14 mmol/L Normal 1.08-1.30 [facility] Comment on above: Order Comment: Speci men Type: ARTERIAL BLOOD SPECIMENOrdering Facility: [facility] Address: [address] [place], [place] [address] Performed By: #### A LLMG ####[facility] LABCLIA [id number] [place] [address] [place] Calcium.ionized adjusted to pH 7.4 (BldA) [Moles/Vol] 1.05 mmol/L Low 1.08-1.30 [facility] Comment on above: Order Comment: Speci men Type: ARTERIAL BLOOD SPECIMENOrdering Facility: [facility] Address: [address] [place] [address] Performed By: #### A LLMG ####[facility] LABCLIA [id number] [address] [place] Carboxyhemoglobin (BldA) [Mass fraction] 1.0 % Normal 0.0-2.0 [facility] Comment on above: Order Comment: Speci men Type: ARTERIAL BLOOD SPECIMENOrdering Facility: [facility] Address: [address] [place] [address] Result Comment: Carb oxyhemoglobin Reference Range for Smokers: 2.0-8.0% Performed By: #### A LLMG ####[facility] LABCLIA [id number] [address] [place] CO2 (Bld) [Partial pressure] 35 mm Hg Low 36-46 [facility] Comment on above: Order Comment: Speci men Type: ARTERIAL BLOOD SPECIMENOrdering Facility: [facility] Address: [address] [place] [address] Performed By: #### A LLMG ####[facility] LABCLIA [id number] [place] [address] [place] CO2 [Moles/Vol] 16 mmol/L Low 22-28 [facility] Comment on above: Order Comment: Speci men Type: ARTERIAL BLOOD SPECIMENOrdering Facility: [facility] Address: [address] [place], [place] [address] Performed By: #### A LLMG ####[facility] LABCLIA [id number] [place] [address] [place] CO2 adjusted to patient's actual temperature (Bld) [Partial pressure] 35 mmHg Low 36-46 [facility] Comment on above: Order Comment: Speci men Type: ARTERIAL BLOOD SPECIMENOrdering Facility: [facility] Address: [address] [place] [address] Performed By: #### A LLMG ####[facility] LABCLIA [id number] [place] [address] [place] Glucose [Mass/Vol] 160 mg/dL High 60-105 [facility] Comment on above: Order Comment: Speci men Type: ARTERIAL BLOOD SPECIMENOrdering Facility: [facility] Address: [address] Performed By: #### A LLMG ####[facility] LABCLIA [id number] [place] [address] [place] HCO3 (Bld) [Moles/Vol] 15 mmol/L Low 22-26 [facility] Comment on above: Order Comment: Speci men Type: ARTERIAL BLOOD SPECIMENOrdering Facility: [facility] Address: [address] [place], [place] [address] Performed By: #### A LLMG ####[facility] LABCLIA [id number] [place] [address] [place] Hematocrit (Bld) [Volume fraction] 26.7 % Low 39.0-51.0 [facility] Comment on above: Order Comment: Speci men Type: ARTERIAL BLOOD SPECIMENOrdering Facility: [facility] Address: [address] Performed By: #### A LLMG ####[facility] LABCLIA [id number] [place] [address] [place] Hemoglobin (Bld) [Mass/Vol] 8.6 g/dL Low 13.0-17.0 [facility] Comment on above: Order Comment: Speci men Type: ARTERIAL BLOOD SPECIMENOrdering Facility: [facility] Address: [address] Performed By: #### A LLMG ####[facility] LABCLIA [id number] [place] [address] [place] Lactate [Moles/Vol] 1.3 mmol/L Normal 0.5-2.2 [facility] Comment on above: Order Comment: Speci men Type: ARTERIAL BLOOD SPECIMENOrdering Facility: [facility] Address: [address] [place] [address] Performed By: #### A LLMG ####[facility] LABIA [id number] [place] [address] [place] Magnesium [Moles/Vol] 0.52 mmol/L Normal 0.45-0.60 [facility] Comment on above: Order Comment: Speci men Type: ARTERIAL BLOOD SPECIMENOrdering Facility: [facility] Address: [address] [place] [address] Performed By: #### A LLMG ####[facility] [id number] [address] [place] Methemoglobin (Bld) [Mass fraction] 1.2 % Normal 0.0-1.5 [facility] Comment on above: Order Comment: Speci men Type: ARTERIAL BLOOD SPECIMENOrdering Facility: [facility] Address: [address] [place], [place] [address] Performed By: #### A LLMG ####[facility] [id number] [place] [address] [place] Oxygen (Bld) [Partial pressure] 235 mm Hg High 85-95 [facility] Comment on above: Order Comment: Speci men Type: ARTERIAL BLOOD SPECIMENOrdering Facility: [facility] Address: [address] [place], [place] [address] Performed By: #### A LLMG ####[facility] LABIA [id number] [place] [address] [place] Oxygen adjusted to patient's actual temperature (Bld) [Partial pressure] 235 mmHg High 85-95 [facility] Comment on above: Order Comment: Speci men Type: ARTERIAL BLOOD SPECIMENOrdering Facility: [facility] Address: [address] [address] Performed By: #### A LLMG ####[facility] LABIA [id number] [place] [address] [place] Oxyhemoglobin (BldA) [Mass fraction] 97 % Normal 95-98 [facility] Comment on above: Order Comment: Speci men Type: ARTERIAL BLOOD SPECIMENOrdering Facility: [facility] Address: [address] Performed By: #### A LLMG ####[facility] LABIA [id number] [place] [address] [place] pH (Bld) 7.26 [pH] Low 7.35-7.45 [facility] [place] Comment on above: Order Comment: Speci men Type: ARTERIAL BLOOD SPECIMENOrdering Facility: [facility] Address: [address] Performed By: #### A LLMG ####[facility] LABIA [id number] [place] [address] [place] pH adjusted to patient's actual temperature (Bld) 7.26 Low 7.35-7.45 [facility] Comment on above: Order Comment: Speci men Type: ARTERIAL BLOOD SPECIMENOrdering Facility: [facility] Address: [address] Performed By: #### A LLMG ####[facility] LABIA [id number] [place] [address] [place] Potassium [Moles/Vol] 3.9 mmol/L Normal 3.5-5.0 [facility] Comment on above: Order Comment: Speci men Type: ARTERIAL BLOOD SPECIMENOrdering Facility: [facility] Address: [address] Performed By: #### A LLMG ####[facility] LABCLIA [id number] [place] [address] [place] Sodium [Moles/Vol] 142 mmol/L Normal 136-144 [facility] Comment on above: Order Comment: Speci men Type: ARTERIAL BLOOD SPECIMENOrdering Facility: [facility] Address: [address] [place] [address] Performed By: #### A LLMG ####[facility] LABIA [id number] [place] [address] [place] Base deficit (BldA) [Moles/Vol] -12 mmol/L Low -2-0 [facility] Comment on above: Order Comment: Speci men Type: ARTERIAL BLOOD SPECIMENOrdering Facility: [facility] Address: [address] [place] [address] Performed By: #### A LLMG ####[facility] LABIA [id number] [address] [place] Calcium.ionized (Bld) [Mass/Vol] 1.14 mmol/L Normal 1.08-1.30 [facility] Comment on above: Order Comment: Speci men Type: ARTERIAL BLOOD SPECIMENOrdering Facility: [facility] Address: [address] [place], [place] [address] Performed By: #### A LLMG ####[facility] LABIA [id number] [place] [address] [place] Calcium.ionized adjusted to pH 7.4 (BldA) [Moles/Vol] 1.04 mmol/L Low 1.08-1.30 [facility] Comment on above: Order Comment: Speci men Type: ARTERIAL BLOOD SPECIMENOrdering Facility: [facility] Address: [address] [place], [place] [address] Performed By: #### A LLMG ####[facility] LABIA [id number] [place] [address] [place] Carboxyhemoglobin (BldA) [Mass fraction] 0.9 % Normal 0.0-2.0 [facility] Comment on above: Order Comment: Speci men Type: ARTERIAL BLOOD SPECIMENOrdering Facility: [facility] Address: [address] [place] [address] Result Comment: Carb oxyhemoglobin Reference Range for Smokers: 2.0-8.0% Performed By: #### A LLMG ####[facility] LABCLIA [id number] [place] [address] [place] CO2 (Bld) [Partial pressure] 33 mm Hg Low 36-46 [facility] [place] Comment on above: Order Comment: Speci men Type: ARTERIAL BLOOD SPECIMENOrdering Facility: [facility] Address: [address] [place] [address] Performed By: #### A LLMG ####[facility] LABCLIA [id number] [place] [address] [place] CO2 [Moles/Vol] 15 mmol/L Low 22-28 [facility] Comment on above: Order Comment: Speci men Type: ARTERIAL BLOOD SPECIMENOrdering Facility: [facility] Address: [address] [place] [address] Performed By: #### A LLMG ####[facility] LABCLIA [id number] [place] [address] [place] CO2 adjusted to patient's actual temperature (Bld) [Partial pressure] 33 mmHg Low 36-46 [facility] Comment on above: Order Comment: Speci men Type: ARTERIAL BLOOD SPECIMENOrdering Facility: [facility] Address: [address] [place], [place] [address] Performed By: #### A LLMG ####[facility] LABCLIA [id number] [place] [address] [place] Glucose [Mass/Vol] 165 mg/dL High 60-105 [facility] Comment on above: Order Comment: Speci men Type: ARTERIAL BLOOD SPECIMENOrdering Facility: [facility] Address: [address] Performed By: #### A LLMG ####[facility] LABCLIA [id number] [place] [address] [place] HCO3 (Bld) [Moles/Vol] 14 mmol/L Low 22-26 [facility] Comment on above: Order Comment: Speci men Type: ARTERIAL BLOOD SPECIMENOrdering Facility: [facility] Address: [address] Performed By: #### A LLMG ####[facility] LABCLIA [id number] [place] [address] [place] Hematocrit (Bld) [Volume fraction] 31.0 % Low 39.0-51.0 [facility] Comment on above: Order Comment: Speci men Type: ARTERIAL BLOOD SPECIMENOrdering Facility: [facility] Address: [address] [place], [place] [address] Performed By: #### A LLMG ####[facility] LABCLIA [id number] [place] [address] [place] Hemoglobin (Bld) [Mass/Vol] 10.0 g/dL Low 13.0-17.0 [facility] Comment on above: Order Comment: Speci men Type: ARTERIAL BLOOD SPECIMENOrdering Facility: [facility] Address: [address] [place], [place] [address] Performed By: #### A LLMG ####[facility] LABCLIA [id number] [place] [address] [place] Lactate [Moles/Vol] 2.1 mmol/L Normal 0.5-2.2 [facility] Comment on above: Order Comment: Speci men Type: ARTERIAL BLOOD SPECIMENOrdering Facility: [facility] Address: [address] Performed By: #### A LLMG ####[facility] LABCLIA [id number] [place] [address] [place] Magnesium [Moles/Vol] 0.56 mmol/L Normal 0.45-0.60 [facility] Comment on above: Order Comment: Speci men Type: ARTERIAL BLOOD SPECIMENOrdering Facility: [facility] Address: [address] [place] [address] Performed By: #### A LLMG ####[facility] LABIA [id number] [address] [place] Methemoglobin (Bld) [Mass fraction] 1.1 % Normal 0.0-1.5 [facility] Comment on above: Order Comment: Speci men Type: ARTERIAL BLOOD SPECIMENOrdering Facility: [facility] Address: [address] [place] [address] Performed By: #### A LLMG ####[facility] LABIA [id number] [address] [place] Oxygen (Bld) [Partial pressure] 249 mm Hg High 85-95 [facility] Comment on above: Order Comment: Speci men Type: ARTERIAL BLOOD SPECIMENOrdering Facility: [facility] Address: [address] [place], [place] [address] Performed By: #### A LLMG ####[facility] LABIA [id number] [place] [address] [place] Oxygen adjusted to patient's actual temperature (Bld) [Partial pressure] 249 mmHg High 85-95 [facility] Comment on above: Order Comment: Speci men Type: ARTERIAL BLOOD SPECIMENOrdering Facility: [facility] Address: [address] [place], [place] [address] Performed By: #### A LLMG ####[facility] LABCLIA [id number] [place] [address] [place] Oxyhemoglobin (BldA) [Mass fraction] 97 % Normal 95-98 [facility] Comment on above: Order Comment: Speci men Type: ARTERIAL BLOOD SPECIMENOrdering Facility: [facility] Address: [address] Performed By: #### A LLMG ####[facility] LABCLIA [id number] [place] [address] [place] pH (Bld) 7.25 [pH] Low 7.35-7.45 [facility] Comment on above: Order Comment: Speci men Type: ARTERIAL BLOOD SPECIMENOrdering Facility: [facility] Address: [address] Performed By: #### A LLMG ####[facility] LABCLIA [id number] [place] [address] [place] pH adjusted to patient's actual temperature (Bld) 7.25 Low 7.35-7.45 [facility] Comment on above: Order Comment: Speci men Type: ARTERIAL BLOOD SPECIMENOrdering Facility: [facility] Address: [address] Performed By: #### A LLMG ####[facility] LABCLIA [id number] [place] [address] [place] Potassium [Moles/Vol] 4.0 mmol/L Normal 3.5-5.0 [facility] Comment on above: Order Comment: Speci men Type: ARTERIAL BLOOD SPECIMENOrdering Facility: [facility] Address: [address] Performed By: #### A LLMG ####[facility] LABCLIA [id number] [place] [address] [place] Sodium [Moles/Vol] 139 mmol/L Normal 136-144 [facility] Comment on above: Order Comment: Speci men Type: ARTERIAL BLOOD SPECIMENOrdering Facility: [facility] Address: [address] Performed By: #### A LLMG ####[facility] LABIA [id number] [place] [address] [place] Base deficit (BldA) [Moles/Vol] -11 mmol/L Low -2-0 [facility] Comment on above: Order Comment: Speci men Type: ARTERIAL BLOOD SPECIMENOrdering Facility: [facility] Address: [address] [place] [address] Performed By: #### A LLMG ####[facility] LABIA [id number] [place] [address] [place] Calcium.ionized (Bld) [Mass/Vol] 1.30 mmol/L Normal 1.08-1.30 [facility] Comment on above: Order Comment: Speci men Type: ARTERIAL BLOOD SPECIMENOrdering Facility: [facility] Address: [address] [place] [address] Performed By: #### A LLMG ####[facility] LABIA [id number] [place] [address] [place] Calcium.ionized adjusted to pH 7.4 (BldA) [Moles/Vol] 1.21 mmol/L Normal 1.08-1.30 [facility] Comment on above: Order Comment: Speci men Type: ARTERIAL BLOOD SPECIMENOrdering Facility: [facility] Address: [address] [place] [address] Performed By: #### A LLMG ####[facility] LABIA [id number] [address] [place] Carboxyhemoglobin (BldA) [Mass fraction] 1.1 % Normal 0.0-2.0 [facility] Comment on above: Order Comment: Speci men Type: ARTERIAL BLOOD SPECIMENOrdering Facility: [facility] Address: [address] [place] [address] Result Comment: Carb oxyhemoglobin Reference Range for Smokers: 2.0-8.0% Performed By: #### A LLMG ####[facility] LABCLIA [id number] [place] [address] [place] CO2 (Bld) [Partial pressure] 32 mm Hg Low 36-46 [facility] Comment on above: Order Comment: Speci men Type: ARTERIAL BLOOD SPECIMENOrdering Facility: [facility] Address: [address] [place] [address] Performed By: #### A LLMG ####[facility] LABCLIA [id number] [place] [address] [place] CO2 [Moles/Vol] 15 mmol/L Low 22-28 [facility] Comment on above: Order Comment: Speci men Type: ARTERIAL BLOOD SPECIMENOrdering Facility: [facility] Address: [address] [place] [address] Performed By: #### A LLMG ####[facility] LABCLIA [id number] [place] [address] [place] CO2 adjusted to patient's actual temperature (Bld) [Partial pressure] 32 mmHg Low 36-46 [facility] Comment on above: Order Comment: Speci men Type: ARTERIAL BLOOD SPECIMENOrdering Facility: [facility] Address: [address] [place], [place] [address] Performed By: #### A LLMG ####[facility] LABCLIA [id number] [place] [address] [place] Glucose [Mass/Vol] 124 mg/dL High 60-105 [facility] Comment on above: Order Comment: Speci men Type: ARTERIAL BLOOD SPECIMENOrdering Facility: [facility] Address: [address] [place], [place] [address] Performed By: #### A LLMG ####[facility] LABCLIA [id number] [place] [address] [place] HCO3 (Bld) [Moles/Vol] 14 mmol/L Low 22-26 [facility] Comment on above: Order Comment: Speci men Type: ARTERIAL BLOOD SPECIMENOrdering Facility: [facility] Address: [address] Performed By: #### A LLMG ####[facility] LABCLIA [id number] [address] [place] Hematocrit (Bld) [Volume fraction] 40.2 % Normal 39.0-51.0 [facility] Comment on above: Order Comment: Speci men Type: ARTERIAL BLOOD SPECIMENOrdering Facility: [facility] Address: [address] Performed By: #### A LLMG ####[facility] LABCLIA [id number] [place] [address] [place] Hemoglobin (Bld) [Mass/Vol] 13.1 g/dL Normal 13.0-17.0 [facility] Comment on above: Order Comment: Speci men Type: ARTERIAL BLOOD SPECIMENOrdering Facility: [facility] Address: [address] Performed By: #### A LLMG ####[facility] LABCLIA [id number] [place] [address] [place] Lactate [Moles/Vol] 1.5 mmol/L Normal 0.5-2.2 [facility] Comment on above: Order Comment: Speci men Type: ARTERIAL BLOOD SPECIMENOrdering Facility: [facility] Address: [address] Performed By: #### A LLMG ####[facility] LABCLIA [id number] [place] [address] [place] Magnesium [Moles/Vol] 0.79 mmol/L High 0.45-0.60 [facility] Comment on above: Order Comment: Speci men Type: ARTERIAL BLOOD SPECIMENOrdering Facility: [facility] Address: [address] Performed By: #### A LLMG ####[facility] LABCLIA [id number] [place] [address] [place] Methemoglobin (Bld) [Mass fraction] 0.9 % Normal 0.0-1.5 [facility] Comment on above: Order Comment: Speci men Type: ARTERIAL BLOOD SPECIMENOrdering Facility: [facility] Address: [address] [place] [address] Performed By: #### A LLMG ####[facility] LABCLIA [id number] [place] [address] [place] Oxygen (Bld) [Partial pressure] 233 mm Hg High 85-95 [facility] Comment on above: Order Comment: Speci men Type: ARTERIAL BLOOD SPECIMENOrdering Facility: [facility] Address: [address] [place], [place] [address] Performed By: #### A LLMG ####[facility] LABIA [id number] [place] [address] [place] Oxygen adjusted to patient's actual temperature (Bld) [Partial pressure] 233 mmHg High 85-95 [facility] Comment on above: Order Comment: Speci men Type: ARTERIAL BLOOD SPECIMENOrdering Facility: [facility] Address: [address] [place], [place] [address] Performed By: #### A LLMG ####[facility] LABIA [id number] [place] [address] [place] Oxyhemoglobin (BldA) [Mass fraction] 98 % Normal 95-98 [facility] Comment on above: Order Comment: Speci men Type: ARTERIAL BLOOD SPECIMENOrdering Facility: [facility] Address: [address] [place], [place] [address] Performed By: #### A LLMG ####[facility] LABIA [id number] [place] [address] [place] pH (Bld) 7.28 [pH] Low 7.35-7.45 [facility] Comment on above: Order Comment: Speci men Type: ARTERIAL BLOOD SPECIMENOrdering Facility: [facility] Address: [address] Performed By: #### A LLMG ####[facility] [id number] [place] [address] [place] pH adjusted to patient's actual temperature (Bld) 7.28 Low 7.35-7.45 [facility] Comment on above: Order Comment: Speci men Type: ARTERIAL BLOOD SPECIMENOrdering Facility: [facility] Address: [address] Performed By: #### A LLMG ####[facility] [id number] [place] [address] [place] Potassium [Moles/Vol] 4.3 mmol/L Normal 3.5-5.0 [facility] Comment on above: Order Comment: Speci men Type: ARTERIAL BLOOD SPECIMENOrdering Facility: [facility] Address: [address] Performed By: #### A LLMG ####[facility] [id number] [place] [address] [place] Sodium [Moles/Vol] 137 mmol/L Normal 136-144 [facility] Comment on above: Order Comment: Speci men Type: ARTERIAL BLOOD SPECIMENOrdering Facility: [facility] Address: [address] [place] [address] Performed By: #### A LLMG ####[facility] [id number] [place] [address] [place] Base deficit (BldA) [Moles/Vol] -11 mmol/L Low -2-0 [facility] Comment on above: Order Comment: Speci men Type: ARTERIAL BLOOD SPECIMENOrdering Facility: [facility] Address: [address] Performed By: #### A LLMG ####[facility] LABCLIA [id number] [place] [address] [place] Calcium.ionized (Bld) [Mass/Vol] 1.49 mmol/L High 1.08-1.30 [facility] Comment on above: Order Comment: Speci men Type: ARTERIAL BLOOD SPECIMENOrdering Facility: [facility] Address: [address] [place] [address] Performed By: #### A LLMG ####[facility] LABIA [id number] [place] [address] [place] Calcium.ionized adjusted to pH 7.4 (BldA) [Moles/Vol] 1.38 mmol/L High 1.08-1.30 [facility] Comment on above: Order Comment: Speci men Type: ARTERIAL BLOOD SPECIMENOrdering Facility: [facility] Address: [address] [place] [address] Performed By: #### A LLMG ####[facility] LABIA [id number] [place] [address] [place] Carboxyhemoglobin (BldA) [Mass fraction] 1.0 % Normal 0.0-2.0 [facility] Comment on above: Order Comment: Speci men Type: ARTERIAL BLOOD SPECIMENOrdering Facility: [facility] Address: [address] [place] [address] Result Comment: Carb oxyhemoglobin Reference Range for Smokers: 2.0-8.0% Performed By: #### A LLMG ####[facility] LABIA [id number] [place] [address] [place] CO2 (Bld) [Partial pressure] 34 mm Hg Low 36-46 [facility] Comment on above: Order Comment: Speci men Type: ARTERIAL BLOOD SPECIMENOrdering Facility: [facility] Address: [address] [place] [address] Performed By: #### A LLMG ####[facility] LABIA [id number] [place] [address] [place] CO2 [Moles/Vol] 16 mmol/L Low 22-28 [facility] Comment on above: Order Comment: Speci men Type: ARTERIAL BLOOD SPECIMENOrdering Facility: [facility] Address: [address] [place] [address] Performed By: #### A LLMG ####[facility] LABCLIA [id number] [place] [address] [place] CO2 adjusted to patient's actual temperature (Bld) [Partial pressure] 34 mmHg Low 36-46 [facility] Comment on above: Order Comment: Speci men Type: ARTERIAL BLOOD SPECIMENOrdering Facility: [facility] Address: [address] [place] [address] Performed By: #### A LLMG ####[facility] LABCLIA [id number] [place] [address] [place] Glucose [Mass/Vol] 121 mg/dL High 60-105 [facility] Comment on above: Order Comment: Speci men Type: ARTERIAL BLOOD SPECIMENOrdering Facility: [facility] Address: [address] [place], [place] [address] Performed By: #### A LLMG ####[facility] LABCLIA [id number] [place] [address] [place] HCO3 (Bld) [Moles/Vol] 15 mmol/L Low 22-26 [facility] Comment on above: Order Comment: Speci men Type: ARTERIAL BLOOD SPECIMENOrdering Facility: [facility] Address: [address] [place], [place] [address] Performed By: #### A LLMG ####[facility] LABCLIA [id number] [place] [address] [place] Hematocrit (Bld) [Volume fraction] 43.3 % Normal 39.0-51.0 [facility] Comment on above: Order Comment: Speci men Type: ARTERIAL BLOOD SPECIMENOrdering Facility: [facility] Address: [address] Performed By: #### A LLMG ####[facility] LABCLIA [id number] [address] [place] Hemoglobin (Bld) [Mass/Vol] 14.1 g/dL Normal 13.0-17.0 [facility] Comment on above: Order Comment: Speci men Type: ARTERIAL BLOOD SPECIMENOrdering Facility: [facility] Address: [address] [place], [place] [address] Performed By: #### A LLMG ####[facility] LABCLIA [id number] [place] [address] [place] Lactate [Moles/Vol] 1.4 mmol/L Normal 0.5-2.2 [facility] Comment on above: Order Comment: Speci men Type: ARTERIAL BLOOD SPECIMENOrdering Facility: [facility] Address: [address] [place], [place] [address] Performed By: #### A LLMG ####[facility] LABCLIA [id number] [place] [address] [place] Magnesium [Moles/Vol] 1.26 mmol/L High 0.45-0.60 [facility] Comment on above: Order Comment: Speci men Type: ARTERIAL BLOOD SPECIMENOrdering Facility: [facility] Address: [address] Performed By: #### A LLMG ####[facility] LABCLIA [id number] [place] [address] [place] Methemoglobin (Bld) [Mass fraction] 1.0 % Normal 0.0-1.5 [facility] Comment on above: Order Comment: Speci men Type: ARTERIAL BLOOD SPECIMENOrdering Facility: [facility] Address: [address] Performed By: #### A LLMG ####[facility] LABCLIA [id number] [place] [address] [place] Oxygen (Bld) [Partial pressure] 237 mm Hg High 85-95 [facility] Comment on above: Order Comment: Speci men Type: ARTERIAL BLOOD SPECIMENOrdering Facility: [facility] Address: [address] [place] [address] Performed By: #### A LLMG ####[facility] LABCLIA [id number] [place] [address] [place] Oxygen adjusted to patient's actual temperature (Bld) [Partial pressure] 237 mmHg High 85-95 [facility] Comment on above: Order Comment: Speci men Type: ARTERIAL BLOOD SPECIMENOrdering Facility: [facility] Address: [address] [place], [place] [address] Performed By: #### A LLMG ####[facility] LABCLIA [id number] [place] [address] [place] Oxyhemoglobin (BldA) [Mass fraction] 97 % Normal 95-98 [facility] Comment on above: Order Comment: Speci men Type: ARTERIAL BLOOD SPECIMENOrdering Facility: [facility] Address: [address] [place], [place] [address] Performed By: #### A LLMG ####[facility] LABCLIA [id number] [place] [address] [place] pH (Bld) 7.26 [pH] Low 7.35-7.45 [facility] Comment on above: Order Comment: Speci men Type: ARTERIAL BLOOD SPECIMENOrdering Facility: [facility] Address: [address] [place], [place] [address] Performed By: #### A LLMG ####[facility] LABCLIA [id number] [place] [address] [place] pH adjusted to patient's actual temperature (Bld) 7.26 Low 7.35-7.45 [facility] Comment on above: Order Comment: Speci men Type: ARTERIAL BLOOD SPECIMENOrdering Facility: [facility] Address: [address] Performed By: #### A LLMG ####[facility] LABCLIA [id number] [place] [address] [place] Potassium [Moles/Vol] 3.2 mmol/L Low 3.5-5.0 [facility] Comment on above: Order Comment: Speci men Type: ARTERIAL BLOOD SPECIMENOrdering Facility: [facility] Address: [address] Performed By: #### A LLMG ####[facility] LABIA [id number] [place] [address] [place] Sodium [Moles/Vol] 135 mmol/L Low 136-144 [facility] Comment on above: Order Comment: Speci men Type: ARTERIAL BLOOD SPECIMENOrdering Facility: [facility] Address: [address] Performed By: #### A LLMG ####[facility] LABIA [id number] [place] [address] [place] Base deficit (BldA) [Moles/Vol] -13 mmol/L Low -2-0 [facility] Comment on above: Order Comment: Speci men Type: ARTERIAL BLOOD SPECIMENOrdering Facility: [facility] Address: [address] Performed By: #### A LLMG ####[facility] LABIA [id number] [place] [address] [place] Calcium.ionized (Bld) [Mass/Vol] 1.13 mmol/L Normal 1.08-1.30 [facility] Comment on above: Order Comment: Speci men Type: ARTERIAL BLOOD SPECIMENOrdering Facility: [facility] Address: [address] Performed By: #### A LLMG ####[facility] LABCLIA [id number] [place] [address] [place] Calcium.ionized adjusted to pH 7.4 (BldA) [Moles/Vol] 1.02 mmol/L Low 1.08-1.30 [facility] Comment on above: Order Comment: Speci men Type: ARTERIAL BLOOD SPECIMENOrdering Facility: [facility] Address: [address] [place], [place] [address] Performed By: #### A LLMG ####[facility] LABIA [id number] [place] [address] [place] Carboxyhemoglobin (BldA) [Mass fraction] 0.6 % Normal 0.0-2.0 [facility] Comment on above: Order Comment: Speci men Type: ARTERIAL BLOOD SPECIMENOrdering Facility: [facility] Address: [address] [place], [place] [address] Result Comment: Carb oxyhemoglobin Reference Range for Smokers: 2.0-8.0% Performed By: #### A LLMG ####[facility] LABIA [id number] [place] [address] [place] CO2 (Bld) [Partial pressure] 36 mm Hg Normal 36-46 [facility] Comment on above: Order Comment: Speci men Type: ARTERIAL BLOOD SPECIMENOrdering Facility: [facility] Address: [address] [place], [place] [address] Performed By: #### A LLMG ####[facility] LABIA [id number] [place] [address] [place] CO2 [Moles/Vol] 15 mmol/L Low 22-28 [facility] Comment on above: Order Comment: Speci men Type: ARTERIAL BLOOD SPECIMENOrdering Facility: [facility] Address: [address] [place], [place] [address] Performed By: #### A LLMG ####[facility] LABCLIA [id number] [address] [place] CO2 adjusted to patient's actual temperature (Bld) [Partial pressure] 36 mmHg Normal 36-46 [facility] Comment on above: Order Comment: Speci men Type: ARTERIAL BLOOD SPECIMENOrdering Facility: [facility] Address: [address] [place] [address] Performed By: #### A LLMG ####[facility] LABCLIA [id number] [place] [address] [place] Glucose [Mass/Vol] 154 mg/dL High 60-105 [facility] Comment on above: Order Comment: Speci men Type: ARTERIAL BLOOD SPECIMENOrdering Facility: [facility] Address: [address] [place], [place] [address] Performed By: #### A LLMG ####[facility] LABCLIA [id number] [place] [address] [place] HCO3 (Bld) [Moles/Vol] 14 mmol/L Low 22-26 [facility] Comment on above: Order Comment: Speci men Type: ARTERIAL BLOOD SPECIMENOrdering Facility: [facility] Address: [address] [place], [place] [address] Performed By: #### A LLMG ####[facility] LABCLIA [id number] [address] [place] Hematocrit (Bld) [Volume fraction] 49.1 % Normal 39.0-51.0 [facility] Comment on above: Order Comment: Speci men Type: ARTERIAL BLOOD SPECIMENOrdering Facility: [facility] Address: [address] [place], [place] [address] Performed By: #### A LLMG ####[facility] LABCLIA [id number] [place] [address] [place] Hemoglobin (Bld) [Mass/Vol] 16.0 g/dL Normal 13.0-17.0 [facility] Comment on above: Order Comment: Speci men Type: ARTERIAL BLOOD SPECIMENOrdering Facility: [facility] Address: [address] Performed By: #### A LLMG ####[facility] LABCLIA [id number] [place] [address] [place] Lactate [Moles/Vol] 1.3 mmol/L Normal 0.5-2.2 [facility] Comment on above: Order Comment: Speci men Type: ARTERIAL BLOOD SPECIMENOrdering Facility: [facility] Address: [address] Performed By: #### A LLMG ####[facility] LABIA [id number] [place] [address] [place] Magnesium [Moles/Vol] 0.43 mmol/L Low 0.45-0.60 [facility] Comment on above: Order Comment: Speci men Type: ARTERIAL BLOOD SPECIMENOrdering Facility: [facility] Address: [address] [place], [place] [address] Performed By: #### A LLMG ####[facility] LABIA [id number] [place] [address] [place] Methemoglobin (Bld) [Mass fraction] 1.4 % Normal 0.0-1.5 [facility] Comment on above: Order Comment: Speci men Type: ARTERIAL BLOOD SPECIMENOrdering Facility: [facility] Address: [address] Performed By: #### A LLMG ####[facility] LABIA [id number] [place] [address] [place] Oxygen (Bld) [Partial pressure] 238 mm Hg High 85-95 [facility] Comment on above: Order Comment: Speci men Type: ARTERIAL BLOOD SPECIMENOrdering Facility: [facility] Address: [address] Performed By: #### A LLMG ####[facility] LABCLIA [id number] [place] [address] [place] Oxygen adjusted to patient's actual temperature (Bld) [Partial pressure] 238 mmHg High 85-95 [facility] Comment on above: Order Comment: Speci men Type: ARTERIAL BLOOD SPECIMENOrdering Facility: [facility] Address: [address] [place] [address] Performed By: #### A LLMG ####[facility] LABIA [id number] [place] [address] [place] Oxyhemoglobin (BldA) [Mass fraction] 97 % Normal 95-98 [facility] Comment on above: Order Comment: Speci men Type: ARTERIAL BLOOD SPECIMENOrdering Facility: [facility] Address: [address] [place] [address] Performed By: #### A LLMG ####[facility] LABIA [id number] [place] [address] [place] pH (Bld) 7.22 [pH] Low 7.35-7.45 [facility] Comment on above: Order Comment: Speci men Type: ARTERIAL BLOOD SPECIMENOrdering Facility: [facility] Address: [address] [place], [place] [address] Performed By: #### A LLMG ####[facility] LABIA [id number] [place] [address] [place] pH adjusted to patient's actual temperature (Bld) 7.22 Low 7.35-7.45 [facility] Comment on above: Order Comment: Speci men Type: ARTERIAL BLOOD SPECIMENOrdering Facility: [facility] Address: [address] [place], [place] [address] Performed By: #### A LLMG ####[facility] LABIA [id number] [place] [address] [place] Potassium [Moles/Vol] 3.3 mmol/L Low 3.5-5.0 [facility] Comment on above: Order Comment: Speci men Type: ARTERIAL BLOOD SPECIMENOrdering Facility: [facility] Address: [address] [place] [address] Performed By: #### A LLMG ####[facility] LABCLIA [id number] [place] [address] [place] Sodium [Moles/Vol] 132 mmol/L Low 136-144 [facility] Comment on above: Order Comment: Speci men Type: ARTERIAL BLOOD SPECIMENOrdering Facility: [facility] Address: [address] [place] [address] Performed By: #### A LLMG ####[facility] LABIA [id number] [address] [place] BRIEF OP NOTon 03-14-2023 BRIEF OP NOT Normal [facility] CBC panel Auto (Bld)on 03-14 Erythrocyte distribution width (RBC) [Ratio] 12.5 % Normal 11.5-15.0 [facility] Comment on above: Order Comment: Speci men Type: BLOOD SPECIMENOrdering Facility: [facility] Address: [address] Performed By: #### 5 8410-2 ####[facility] LABIA [id number] [place] [address] [place] Hematocrit (Bld) [Volume fraction] 26.5 % Low 39.0-51.0 [facility] Comment on above: Order Comment: Speci men Type: BLOOD SPECIMENOrdering Facility: [facility] Address: [address] Performed By: #### 5 8410-2 ####[facility] LABIA [id number] [place] [address] [place] Hemoglobin (Bld) [Mass/Vol] 8.9 g/dL Low 13.0-17.0 [facility] Comment on above: Order Comment: Speci men Type: BLOOD SPECIMENOrdering Facility: [facility] Address: [address] Performed By: #### 5 8410-2 ####[facility] LABIA [id number] [address] MCH (RBC) [Entitic mass] 28.3 pg Normal 26.0-34.0 [facility] Comment on above: Order Comment: Speci men Type: BLOOD SPECIMENOrdering Facility: [facility] Address: [address] Performed By: #### 5 8410-2 ####[facility] [id number] [address] STATES [facility] MCHC (RBC) [Mass/Vol] 33.6 g/dL Normal 30.5-36.0 [facility] Comment on above: Order Comment: Speci men Type: BLOOD SPECIMENOrdering Facility: [facility] Address: [address] [place], [place] [address] Performed By: #### 5 8410-2 ####[facility] [id number] [address] STATES [facility] MCV (RBC) [Entitic vol] 84.4 fL Normal 80.0-100.0 [facility] Comment on above: Order Comment: Speci men Type: BLOOD SPECIMENOrdering Facility: [facility] Address: [address] [place] [address] Performed By: #### 5 8410-2 ####[facility] [id number] [address] STATES [facility] Nucleated RBC (Bld) [#/Vol] 10*3/uL Normal <0.01 [facility] Comment on above: Order Comment: Speci men Type: BLOOD SPECIMENOrdering Facility: [facility] Address: [address] [place] [address] Performed By: #### 5 8410-2 ####[facility] LABCLIA [id number] [place] [address] [place] Platelet mean volume (Bld) [Entitic vol] 9.5 fL Normal 9.0-12.7 [facility] Comment on above: Order Comment: Speci men Type: BLOOD SPECIMENOrdering Facility: [facility] Address: [address] [place], [place] [address] Performed By: #### 5 8410-2 ####[facility] LABIA [id number] [place] [address] [place] Platelets (Bld) [#/Vol] 210 10*3/uL Normal 150-400 [facility] Comment on above: Order Comment: Speci men Type: BLOOD SPECIMENOrdering Facility: [facility] Address: [address] [place] [address] Performed By: #### 5 8410-2 ####[facility] LABIA [id number] [place] [address] [place] RBC (Bld) [#/Vol] 3.14 10*6/uL Low 4.20-6.00 [facility] Comment on above: Order Comment: Speci men Type: BLOOD SPECIMENOrdering Facility: [facility] Address: [address] [place], [place] [address] Performed By: #### 5 8410-2 ####[facility] LABIA [id number] [place] [address] [place] WBC (Bld) [#/Vol] 8.31 10*3/uL Normal 3.70-11.00 [facility] Comment on above: Order Comment: Speci men Type: BLOOD SPECIMENOrdering Facility: [facility] Address: [address] [place], [place] [address] Performed By: #### 5 8410-2 ####[facility] LABIA [id number] [place] [address] [place] CONSULT PROGon 03-14-2023 CONSULT PROG Normal [facility] CYSTATIN Con 03-14-2023 Cystatin C [Mass/Vol] 0.58 mg/L Low 0.61-0.95 [facility] Comment on above: Order Comment: Speci men Type: BLOOD SPECIMENOrdering Facility: [facility] Address: [address] [place] [address] Performed By: #### 1 9123-9, 56584-3, CYSTC, HSTNT, 277- ####[facility] LABCLIA [id number] [address] [place] CYSTATIN C EGFR 141 mL/min/1.73m??? Normal >=60 [facility] Comment on above: Order Comment: [facility] Type: BLOOD SPECIMENOrdering Facility: [facility] Address: [address] [place] [address] Result Comment: Mary mated Glomerular Filtration Rate (eGFR) is calculated using the 2012 CKD-EPI cystatin C equation. This equation utilizes serum cystatin C, sex, and age as parameters. The cystatin C assay has traceable calibration to the ERM-DA471/IF reference material. Refer to KDIGO guidelines for clinical interpretation. In patients with unstable renal function, e.g. those with acute kidney injury, the eGFR may not accurately reflect actual GFR. Performed By: #### 1 9123-9, 83012-4, CYSTC, HSTNT, 2777-1 ####[facility] LABCLIA [id number] [place] [address] [place] Comprehensive metabolic 2000 panelon 03-14-2023 Albumin [Mass/Vol] 4.5 g/dL Normal 3.9-4.9 [facility] Comment on above: Order Comment: Speci men Type: BLOOD SPECIMENOrdering Facility: [facility] Address: [address] [place] [address] Performed By: #### 2 4323-8, 49193-5 ####[facility] LABCLIA [id number] [place] [address] [place] ALP [Catalytic activity/Vol] 25 U/L Low 38-113 [facility] Comment on above: Order Comment: Speci men Type: BLOOD SPECIMENOrdering Facility: [facility] Address: [address] [place] [address] Performed By: #### 2 4323-8, 43733-4 ####[facility] LABCLIA [id number] [place] [address] [place] ALT [Catalytic activity/Vol] 29 U/L Normal 10-54 [facility] Comment on above: Order Comment: Speci men Type: BLOOD SPECIMENOrdering Facility: [facility] Address: [address] [place] [address] Performed By: #### 2 4323-8, 83096-0 ####[facility] LABCLIA [id number] [place] [address] [place] Anion gap [Moles/Vol] 19 mmol/L High 9-18 [facility] Comment on above: Order Comment: Speci men Type: BLOOD SPECIMENOrdering Facility: [facility] Address: [address] [place] [address] Performed By: #### 2 4323-8, 98734-2 ####[facility] LABCLIA [id number] [address] [place] AST [Catalytic activity/Vol] 44 U/L High 14-40 [facility] Comment on above: Order Comment: Speci men Type: BLOOD SPECIMENOrdering Facility: [facility] Address: [address] [place], [place] [address] Performed By: #### 2 4323-8, 42807-8 ####[facility] LABCLIA [id number] [place] [address] [place] Bilirubin [Mass/Vol] 2.7 mg/dL High 0.2-1.3 [facility] Comment on above: Order Comment: Speci men Type: BLOOD SPECIMENOrdering Facility: [facility] Address: [address] [address] Performed By: #### 2 4323-8, 19499-5 ####[facility] LABCLIA [id number] [place] [address] [place] Calcium [Mass/Vol] 8.4 mg/dL Low 8.5-10.2 [facility] Comment on above: Order Comment: Speci men Type: BLOOD SPECIMENOrdering Facility: [facility] Address: [address] [address] Performed By: #### 2 4323-8, 88466-9 ####[facility] LABCLIA [id number] [place] [address] [place] Chloride [Moles/Vol] 109 mmol/L High 97-105 [facility] Comment on above: Order Comment: Speci men Type: BLOOD SPECIMENOrdering Facility: [facility] Address: [address] [address] Performed By: #### 2 4323-8, 99064-5 ####[facility] LABCLIA [id number] [place] [address] [place] CO2 [Moles/Vol] 18 mmol/L Low 22-30 [facility] Comment on above: Order Comment: Speci men Type: BLOOD SPECIMENOrdering Facility: [facility] Address: [address] Performed By: #### 2 4323-8, 04803-1 ####[facility] LABCLIA [id number] [place] [address] [place] Creatinine [Mass/Vol] 0.48 mg/dL Low 0.73-1.22 [facility] Comment on above: Order Comment: Speci men Type: BLOOD SPECIMENOrdering Facility: [facility] Address: [address] Performed By: #### 2 4323-8, 72946-7 ####[facility] LABCLIA [id number] [place] [address] [place] ESTIMATED GLOMERULAR FILTRATION RATE 147 mL/min/1.73m??? Normal >=60 [facility] Comment on above: Order Comment: Frantz thurman Type: BLOOD SPECIMENOrdering Facility: [facility] Address: [address] [place] [address] Result Comment: Mary mated Glomerular Filtration Rate (eGFR) is calculated using the 2020 CKD-EPI creatinine equation. This equation utilizes serum creatinine, sex, and age as parameters. The creatinine assay has traceable calibration to isotope dilution-mass spectrometry. Refer to KDIGO guidelines for clinical interpretation. In patients with unstable renal function, e.g. those with acute kidney injury, the eGFR may not accurately reflect actual GFR. Performed By: #### 2 4323-8, 88721-3 ####[facility] LABIA [id number] [place] [address] [place] Glucose [Mass/Vol] 172 mg/dL High 74-99 [facility] Comment on above: Order Comment: Frantz thurman Type: BLOOD SPECIMENOrdering Facility: [facility] Address: [address] [place] [address] Result Comment: The [place] Diabetes Association (ADA) provides guidance for cutoff values for fasting glucose and random glucose. The ADA defines fasting as no caloric intake for at least 8 hours. Fasting plasma glucose results between 100 to 125 mg/dL indicate increased risk for diabetes (prediabetes).Fasting plasma glucose results greater than or equal to 126 mg/dL meet the criteria for diagnosis of diabetes. In the absence of unequivocal hyperglycemia, results should be confirmed by repeat testing. In a patient with classic symptoms of hyperglycemia or hyperglycemic crisis, random plasma glucose results greater than or equal to 200 mg/dL meet the criteria for diagnosis of diabetes.Reference: Standards of Medical Care in Diabetes 2016, [place] [employer] Association. Diabetes Care. 2016.39(Suppl 1). Performed By: #### 2 4323-8, 95676-3 ####[facility] LABCLIA [id number] [place] [address] [place] Potassium [Moles/Vol] 3.9 mmol/L Normal 3.7-5.1 [facility] Comment on above: Order Comment: Speci men Type: BLOOD SPECIMENOrdering Facility: [facility] Address: [address] [place] [address] Performed By: #### 2 4323-8, 78785-3 ####[facility] LABCLIA [id number] [place] [address] [place] Protein [Mass/Vol] 5.1 g/dL Low 6.3-8.0 [facility] Comment on above: Order Comment: Speci men Type: BLOOD SPECIMENOrdering Facility: [facility] Address: [address] [place] [address] Performed By: #### 2 4323-8, 19876-8 ####[facility] LABIA [id number] [place] [address] [place] Sodium [Moles/Vol] 146 mmol/L High 136-144 [facility] Comment on above: Order Comment: Speci men Type: BLOOD SPECIMENOrdering Facility: [facility] Address: [address] [place], [place] [address] Performed By: #### 2 4323-8, 01015-0 ####[facility] LABIA [id number] [place] [address] [place] Urea nitrogen [Mass/Vol] 9 mg/dL Normal 9-24 [facility] Comment on above: Order Comment: Speci men Type: BLOOD SPECIMENOrdering Facility: [facility] Address: [address] [place], [place] [address] Performed By: #### 2 4323-8, 57132-3 ####[facility] LABCLIA [id number] [place] [address] [place] HIGH SENSITIVITY TROPONIN To n 03-14-2023 HIGH SENSITIVITY OMAR 13 ng/L High <12 [facility] Comment on above: Order Comment: Speci men Type: BLOOD SPECIMENOrdering Facility: [facility] Address: [address] [address] Result Comment: When assessing risk for acute coronary syndromes: In patients undergoing blood draw greater than or equal to 2 hours from symptom onset, with history of very low to moderate risk and non-ischemic ECG, an initial hs-Troponin T less than 12 ng/L AND a 1 hour delta hs-Troponin T less than 3 ng/L should be considered very low risk for 30 day MACE. Performed By: #### 1 9123-9, 98973-9, CYSTC, HSTNT, 2777-1 ####[facility] LABCLIA [id number] [place] [address] [place] HISTORY PHYSICALon HISTORY PHYSICAL Normal [facility] Magnesium [facility] 03-14 Magnesium [Mass/Vol] 1.7 mg/dL Normal 1.7-2.3 [facility] Comment on above: Order Comment: Speci men Type: BLOOD SPECIMENOrdering Facility: [facility] Address: [address] [place] [address] Performed By: #### 1 9123-9, 87814-9, CYSTC, HSTNT, 2777-1 ####[facility] LABCLIA [id number] [address] [place] NT-proBNP [facility] 03-14 Natriuretic peptide.B prohormone N-Terminal [Mass/Vol] 431 pg/mL High <125 [facility] Comment on above: Order Comment: Rosalindi men Type: BLOOD SPECIMENOrdering Facility: [facility] Address: [place] [address] Performed By: #### 1 9123-9, 97686-7, CYSTC, HSTNT, 2777-1 ####[facility] LABCLIA [id number] [place] [address] [place] OPERATIVE NOon 03-14-2023 OPERATIVE NO Normal [facility] Phosphate SerPl-mCncon 03-14 Phosphate [Mass/Vol] 2.9 mg/dL Normal 2.7-4.8 [facility] Comment on above: Order Comment: Speci men Type: BLOOD SPECIMENOrdering Facility: [facility] Address: [address] [place] [address] Performed By: #### 1 9123-9, 84517-0, CYSTC, HSTNT, 2777-1 ####[facility] LABCLIA [id number] [address] [place] Procalcitonin SerPl-ncon 0 03-14-2023 Procalcitonin [Mass/Vol] 0.52 ng/mL High <0.09 [facility] Comment on above: Order Comment: Speci men Type: BLOOD SPECIMENOrdering Facility: [facility] Address: [address] [address] Result Comment: For a guided interpretation of test results, please visit the Change in Procalcitonin Calculator, [email or web address]. Performed By: #### 2 4323-8, 50941-4 ####[facility] LABCLIA [id number] [address] [place] STAPH AUREUS PCRon S. aureus and MRSA panel MARY+probe (Nose) Normal Negative [facility] Comment on above: Order Comment: Speci men Type: SWAB OF INTERNAL NOSEOrdering Facility: [facility] Address: [address] [address] Result Comment: Nega tive for Staphylococcus aureus by PCR.Negative for MRSA by PCR Performed By: #### S APCR ####[facility] LABCLIA [id number] [place] [address] [place] SURGICAL PATHOLOGYon 023 CASE REPORT Normal [facility] Comment on above: Order Comment: Speci men Type: TISSUE SPECIMENOrdering Facility: [facility] Address: [address] [place], [place] [address] Result Comment: Surg ical Pathology Report Case: [id number] Provider: Marifer Dowd MD Collected: 03/14/2023 10:37 AMOrdering Location: Admitting Received: 03/14/2023 06:29 PMPathologist: Santino Anthony MD, PhDSpecimens: A) - COLOSTOMY B) - GALLBLADDER C) - COLON RESECTION, COLON Performed By: #### S ####[facility] LABCLIA [id number] [address] CLINICAL HISTORY Normal [facility] Comment on above: Order Comment: Speci men Type: TISSUE SPECIMENOrdering Facility: [facility] Address: [address] [place], [place] [address] Result Comment: Pre- op diagnosis:Preoperative examination [Z01.818]Parastomal hernia without obstruction or gangrene [K43.5] Performed By: #### S ####[facility] LABCLIA [id number] [address] FINAL DIAGNOSIS Normal [facility] Comment on above: Order Comment: Speci men Type: TISSUE SPECIMENOrdering Facility: [facility] Address: [address] [place], [place] [address] Result Comment: A. C olostomy, takedown:- Colocutaneous anastomosis with foci of mucosal erosion, and reactive changes, consistent with ostomy site.B. Gallbladder, cholecystectomy:- Gallbladder with no diagnostic abnormality.C. Colon, resection:- Portion of colon with a single inflammatory-type polyp, patchy serositis and rare adhesions.- Serositis extends to one of the resection margins.- Two reactive lymph nodes. Performed By: #### S ####[facility] LABCLIA [id number] [address] FINAL PERFORMING LAB Normal [facility] Comment on above: Order Comment: Speci men Type: TISSUE SPECIMENOrdering Facility: [facility] Address: [address] [address] Result Comment: Diag nostic interpretation performed at [facility], [address] [address] CLIA# [id number] Director: Dick Goodman M.D. Performed By: #### S ####[facility] LABCLIA [id number] [facility] [id number] GROSS DESCRIPTION A. COLOSTOMY Normal [facility] Comment on above: Order Comment: Speci men Type: TISSUE SPECIMENOrdering Facility: [facility] Address: [address] [address] Result Comment: Rece ived in formalin labeled colostomy is a 2.8 x 2.5 x 1.8 cm ostomy specimen lined by thin rim of yang skin. The ostomy site is brown and unremarkable with no defects or granularity. Sectioning reveals unremarkable cut surfaces. Business Performance Manager sections are submitted in one cassette.B. GALLBLADDERReceived in formalin labeled gallbladder is a 5.3 x 2.8 x 2.0 cm gallbladder with attached 0.2 cm in length by 0.2 cm in diameter proximally stapled cystic duct. The serosal surface is brown and smooth. The hepatic bed is rough and irregular. Opening reveals a marked amount of brown viscous bile. No calculi are present within the specimen or specimen container. The mucosal surface is brown and velvety with a wall thickness of 1 to 2 mm. No polyps or discrete lesions are identified. Business Performance Manager sections to include cystic duct margin are submitted in one cassette.C. COLON RESECTIONReceived in formalin labeled colon is an 8.4 cm in length by 5.6 cm in circumference by 0.5 cm in thickness segment of previously opened large bowel. One margin is inked green and the opposing margin is inked blue. The serosal surface is pink and moderately fibrous. Opening reveals medina, soft, edematous mucosal surfaces with an ill-defined, irregular 1.1 x 0.7 x 0.4 cm medina firm polypoid lesion located 1.0 cm from the closest margin. Sectioning reveals yang ill-defined cut surfaces with no gross evidence of invasion. The remaining bowel is unremarkable. Business Performance Manager sections are submitted as follows: C1 margins, C2 irregular polypoid lesion entirely submitted, C3 mesenteric margin shaved and two probable lymph nodes.Gross examination performed at [facility], [address] [address] CLIA# [id number] 03/15/23 Performed By: #### S ####[facility] LABIA [id number] [place] [address] [place] XR ABDOMEN 1V SUPINEon 03-14 XR ABDOMEN 1V SUPINE Normal [facility] XR CHEST 1V FRONTAL PORTon 0 03-14-2023 XR CHEST 1V FRONTAL PORT Normal [facility] CNPNon 03-13-2023 CNPN Normal [facility] CBC W Auto Differential pane l (Bld)on 02-16-2023 Basophils (Bld) [#/Vol] 0.04 10*3/uL Normal <0.11 [facility] Comment on above: Order Comment: Speci men Type: BLOOD SPECIMENOrdering Facility: [facility] Address: [address] [address] Performed By: #### 5 7021-8 ####[facility] [id number] [address] [place] Basophils/100 WBC (Bld) 0.5 % Normal [facility] Comment on above: Order Comment: Speci men Type: BLOOD SPECIMENOrdering Facility: [facility] Address: [address] Performed By: #### 5 7021-8 ####[facility] [id number] [place] [address] [place] Differential cell count method Nom (Bld) Auto Normal [facility] Comment on above: Order Comment: Speci men Type: BLOOD SPECIMENOrdering Facility: [facility] Address: [address] [address] Performed By: #### 5 7021-8 ####[facility] LABCLIA [id number] [place] [address] [place] Eosinophils (Bld) [#/Vol] 0.32 10*3/uL Normal <0.46 [facility] Comment on above: Order Comment: Speci men Type: BLOOD SPECIMENOrdering Facility: [facility] Address: [address] [place], [place] [address] Performed By: #### 5 7021-8 ####[facility] LABCLIA [id number] [place] [address] [place] Eosinophils/100 WBC (Bld) 4.2 % Normal [facility] Comment on above: Order Comment: Speci men Type: BLOOD SPECIMENOrdering Facility: [facility] Address: [address] [place], [place] [address] Performed By: #### 5 7021-8 ####[facility] LABIA [id number] [address] [place] Erythrocyte distribution width (RBC) [Ratio] 12.7 % Normal 11.5-15.0 [facility] Comment on above: Order Comment: Speci men Type: BLOOD SPECIMENOrdering Facility: [facility] Address: [address] [place], [place] [address] Performed By: #### 5 7021-8 ####[facility] LABCLIA [id number] [place] [address] [place] Hematocrit (Bld) [Volume fraction] 47.2 % Normal 39.0-51.0 [facility] Comment on above: Order Comment: Speci men Type: BLOOD SPECIMENOrdering Facility: [facility] Address: [address] [place], [place] [address] Performed By: #### 5 7021-8 ####[facility] LABIA [id number] [place] [address] [place] Hemoglobin (Bld) [Mass/Vol] 14.9 g/dL Normal 13.0-17.0 [facility] Comment on above: Order Comment: Speci men Type: BLOOD SPECIMENOrdering Facility: [facility] Address: [address] [place] [address] Performed By: #### 5 7021-8 ####[facility] LABCLIA [id number] [place] [address] [place] Immature granulocytes (Bld) [#/Vol] 10*3/uL Normal <0.10 [facility] Comment on above: Order Comment: Speci men Type: BLOOD SPECIMENOrdering Facility: [facility] Address: [address] [place] [address] Performed By: #### 5 7021-8 ####[facility] LABCLIA [id number] [place] [address] [place] Immature granulocytes/100 WBC (Bld) 0.3 % Normal [facility] Comment on above: Order Comment: Speci men Type: BLOOD SPECIMENOrdering Facility: [facility] Address: [address] [place], [place] [address] Performed By: #### 5 7021-8 ####[facility] LABCLIA [id number] [place] [address] [place] Lymphocytes (Bld) [#/Vol] 2.37 10*3/uL Normal 1.00-4.00 [facility] Comment on above: Order Comment: Speci men Type: BLOOD SPECIMENOrdering Facility: [facility] Address: [address] Performed By: #### 5 7021-8 ####[facility] LABCLIA [id number] [place] [address] [place] Lymphocytes/100 WBC (Bld) 31.2 % Normal [facility] Comment on above: Order Comment: Speci men Type: BLOOD SPECIMENOrdering Facility: [facility] Address: [address] [place] [address] Performed By: #### 5 7021-8 ####[facility] LABIA [id number] [address] MCH (RBC) [Entitic mass] 27.3 pg Normal 26.0-34.0 [facility] Comment on above: Order Comment: Speci men Type: BLOOD SPECIMENOrdering Facility: [facility] Address: [address] Performed By: #### 5 7021-8 ####[facility] LABIA [id number] [address] [place] MCHC (RBC) [Mass/Vol] 31.6 g/dL Normal 30.5-36.0 [facility] Comment on above: Order Comment: Speci men Type: BLOOD SPECIMENOrdering Facility: [facility] Address: [address] Performed By: #### 5 7021-8 ####[facility] LABIA [id number] [address] STATES [facility] MCV (RBC) [Entitic vol] 86.6 fL Normal 80.0-100.0 [facility] Comment on above: Order Comment: Speci men Type: BLOOD SPECIMENOrdering Facility: [facility] Address: [address] Performed By: #### 5 7021-8 ####[facility] LABIA [id number] [place] [address] [place] Monocytes (Bld) [#/Vol] 0.59 10*3/uL Normal <0.87 [facility] Comment on above: Order Comment: Speci men Type: BLOOD SPECIMENOrdering Facility: [facility] Address: [address] Performed By: #### 5 7021-8 ####[facility] LABIA [id number] [place] [address] [place] Monocytes/100 WBC (Bld) 7.8 % Normal [facility] Comment on above: Order Comment: Speci men Type: BLOOD SPECIMENOrdering Facility: [facility] Address: [address] [place] [address] Performed By: #### 5 7021-8 ####[facility] LABCLIA [id number] [place] [address] [place] Neutrophils (Bld) [#/Vol] 4.25 10*3/uL Normal 1.45-7.50 [facility] Comment on above: Order Comment: Speci men Type: BLOOD SPECIMENOrdering Facility: [facility] Address: [address] [place] [address] Performed By: #### 5 7021-8 ####[facility] LABCLIA [id number] [place] [address] [place] Neutrophils/100 WBC (Bld) 56.0 % Normal [facility] Comment on above: Order Comment: Speci men Type: BLOOD SPECIMENOrdering Facility: [facility] Address: [address] [place], [place] [address] Performed By: #### 5 7021-8 ####[facility] LABCLIA [id number] [place] [address] [place] Nucleated RBC (Bld) [#/Vol] 10*3/uL Normal <0.01 [facility] Comment on above: Order Comment: Speci men Type: BLOOD SPECIMENOrdering Facility: [facility] Address: [address] [place], [place] [address] Performed By: #### 5 7021-8 ####[facility] LABCLIA [id number] [place] [address] [place] Nucleated RBC/100 WBC (Bld) [Ratio] 0.0 /100 WBC Normal [facility] Comment on above: Order Comment: Speci men Type: BLOOD SPECIMENOrdering Facility: [facility] Address: [address] Performed By: #### 5 7021-8 ####[facility] LABIA [id number] [place] [address] [place] Platelet mean volume (Bld) [Entitic vol] 9.2 fL Normal 9.0-12.7 [facility] Comment on above: Order Comment: Speci men Type: BLOOD SPECIMENOrdering Facility: [facility] Address: [address] [place], [place] [address] Performed By: #### 5 7021-8 ####[facility] LABIA [id number] [place] [address] [place] Platelets (Bld) [#/Vol] 351 10*3/uL Normal 150-400 [facility] Comment on above: Order Comment: Speci men Type: BLOOD SPECIMENOrdering Facility: [facility] Address: [address] [place], [place] [address] Performed By: #### 5 7021-8 ####[facility] LABIA [id number] [place] [address] [place] RBC (Bld) [#/Vol] 5.45 10*6/uL Normal 4.20-6.00 [facility] Comment on above: Order Comment: Speci men Type: BLOOD SPECIMENOrdering Facility: [facility] Address: [address] [place], [place] [address] Performed By: #### 5 7021-8 ####[facility] LABIA [id number] [place] [address] [place] WBC (Bld) [#/Vol] 7.59 10*3/uL Normal 3.70-11.00 [facility] Comment on above: Order Comment: Speci men Type: BLOOD SPECIMENOrdering Facility: [facility] Address: [address] [place], [place] [address] Performed By: #### 5 7021-8 ####[facility] LABCLIA [id number] [place] [address] [place] CNOVon 02-16-2023 CNOV Normal [facility] Comprehensive metabolic 2000 panelon 02-16-2023 Albumin [Mass/Vol] 4.7 g/dL Normal 3.9-4.9 [facility] Comment on above: Order Comment: Speci men Type: BLOOD SPECIMENOrdering Facility: [facility] Address: [address] Performed By: #### 2 4323-8 ####[facility] LABCLIA [id number] [place] [address] [place] ALP [Catalytic activity/Vol] 85 U/L Normal 38-113 [facility] Comment on above: Order Comment: Speci men Type: BLOOD SPECIMENOrdering Facility: [facility] Address: [address] [place], [place] [address] Performed By: #### 2 4323-8 ####[facility] LABCLIA [id number] [place] [address] [place] ALT [Catalytic activity/Vol] 18 U/L Normal 10-54 [facility] Comment on above: Order Comment: Speci men Type: BLOOD SPECIMENOrdering Facility: [facility] Address: [address] Performed By: #### 2 4323-8 ####[facility] LABCLIA [id number] [place] [address] [place] Anion gap [Moles/Vol] 10 mmol/L Normal 9-18 [facility] Comment on above: Order Comment: Speci men Type: BLOOD SPECIMENOrdering Facility: [facility] Address: [address] Performed By: #### 2 4323-8 ####[facility] LABCLIA [id number] [place] [address] [place] AST [Catalytic activity/Vol] 17 U/L Normal 14-40 [facility] [facility] [place] Comment on above: Order Comment: Speci men Type: BLOOD SPECIMENOrdering Facility: [facility] Address: [address] [place] [address] Performed By: #### 2 4323-8 ####[facility] LABCLIA [id number] [place] [address] [place] Bilirubin [Mass/Vol] 0.3 mg/dL Normal 0.2-1.3 [facility] Comment on above: Order Comment: Speci men Type: BLOOD SPECIMENOrdering Facility: [facility] Address: [address] [place] [address] Performed By: #### 2 4323-8 ####[facility] LABCLIA [id number] [place] [address] [place] Calcium [Mass/Vol] 9.7 mg/dL Normal 8.5-10.2 [facility] Comment on above: Order Comment: Speci men Type: BLOOD SPECIMENOrdering Facility: [facility] Address: [address] [place], [place] [address] Performed By: #### 2 4323-8 ####[facility] LABCLIA [id number] [place] [address] [place] Chloride [Moles/Vol] 100 mmol/L Normal 97-105 [facility] Comment on above: Order Comment: Speci men Type: BLOOD SPECIMENOrdering Facility: [facility] Address: [address] [place], [place] [address] Performed By: #### 2 4323-8 ####[facility] LABCLIA [id number] [place] [address] [place] CO2 [Moles/Vol] 27 mmol/L Normal 22-30 [facility] [place] Comment on above: Order Comment: Speci men Type: BLOOD SPECIMENOrdering Facility: [facility] Address: [address] [address] Performed By: #### 2 4323-8 ####[facility] LABIA [id number] [place] [address] [place] Creatinine [Mass/Vol] 0.44 mg/dL Low 0.73-1.22 [facility] [place] Comment on above: Order Comment: Frantz men Type: BLOOD SPECIMENOrdering Facility: [facility] Address: [address] [address] Performed By: #### 2 4323-8 ####[facility] LABIA [id number] [place] [address] [place] GFR/1.73 sq M.predicted among non-blacks MDRD (S/P/Bld) [Vol rate/Area] mL/min/{1.73_m2} Normal >=60 [facility] [place] Comment on above: Order Comment: Frantz men Type: BLOOD SPECIMENOrdering Facility: [facility] Address: [address] [address] Result Comment: Mary mated Glomerular Filtration Rate (eGFR) is calculated using the 2020 CKD-EPI creatinine equation. This equation utilizes serum creatinine, sex, and age as parameters. The creatinine assay has traceable calibration to isotope dilution-mass spectrometry. Refer to KDIGO guidelines for clinical interpretation. In patients with unstable renal function, e.g. those with acute kidney injury, the eGFR may not accurately reflect actual GFR. Performed By: #### 2 4323-8 ####[facility] LABIA [id number] [place] [address] [place] Glucose [Mass/Vol] 72 mg/dL Low 74-99 [facility] Comment on above: Order Comment: Frantz thurman Type: BLOOD SPECIMENOrdering Facility: [facility] Address: [address] [address] Result Comment: The [place] Diabetes Association (ADA) provides guidance for cutoff values for fasting glucose and random glucose. The ADA defines fasting as no caloric intake for at least 8 hours. Fasting plasma glucose results between 100 to 125 mg/dL indicate increased risk for diabetes (prediabetes).Fasting plasma glucose results greater than or equal to 126 mg/dL meet the criteria for diagnosis of diabetes. In the absence of unequivocal hyperglycemia, results should be confirmed by repeat testing. In a patient with classic symptoms of hyperglycemia or hyperglycemic crisis, random plasma glucose results greater than or equal to 200 mg/dL meet the criteria for diagnosis of diabetes.Reference: Standards of Medical Care in Diabetes 2016, [place] [employer] Association. Diabetes Care. 2016.39(Suppl 1). Performed By: #### 2 4323-8 ####[facility] LABCLIA [id number] [place] [address] [place] Potassium [Moles/Vol] 4.2 mmol/L Normal 3.7-5.1 [facility] [place] Comment on above: Order Comment: Speci men Type: BLOOD SPECIMENOrdering Facility: [facility] Address: [address] [place] [address] Performed By: #### 2 4323-8 ####[facility] LABIA [id number] [place] [address] [place] Protein [Mass/Vol] 8.2 g/dL High 6.3-8.0 [facility] Comment on above: Order Comment: Rosalindi cuca Type: BLOOD SPECIMENOrdering Facility: [facility] Address: [address] [address] Performed By: #### 2 4323-8 ####[facility] LABCLIA [id number] [place] [address] [place] Sodium [Moles/Vol] 137 mmol/L Normal 136-144 [facility] Comment on above: Order Comment: Speci men Type: BLOOD SPECIMENOrdering Facility: [facility] Address: [address] [address] Performed By: #### 2 4323-8 ####[facility] LABIA [id number] [place] [address] [place] Urea nitrogen [Mass/Vol] 10 mg/dL Normal 9-24 [facility] [place] Comment on above: Order Comment: Frantz thurman Type: BLOOD SPECIMENOrdering Facility: [facility] Address: [address] [address] Performed By: #### 2 4323-8 ####[facility] LABCLIA [id number] [address] [place] ECG COMPLETEon 02-16-2023 ECG COMPLETE Normal [facility] HISTORY PHYSICALon HISTORY PHYSICAL Normal [facility] PT panel Coag (PPP)on 2022 INR Coag (PPP) [Relative time] 1.0 {INR} Normal 0.9-1.3 [facility] [place] Comment on above: Order Comment: Frantz thurman Type: BLOOD SPECIMENOrdering Facility: [facility] Address: [address] [address] Result Comment: Gale min K Antagonist (VKA) Therapeutic Range: INR 2 to 3 (Target INR of 2.5)Note: For patients treated with VKA drugs, such as warfarin, the [place] [employer] 2012 Guideline recommends a therapeutic INR range of 2 to 3 (target INR of 2.5). This recommendation includes high-risk patients with antiphospholipid syndrome with previous arterial or venous thromboembolism, current-generation mechanical or bioprosthetic aortic heart valve replacement.Note: Patients with mechanical aortic valve replacement and additional risk factors for thromboembolic events (atrial fibrillation, previous thromboembolism, LV dysfunction, hypercoagulable conditions) or an older generation mechanical AVR (i.e., ball in-Cage) or any mechanical MVR should have a INR therapeutic range of 2.5 to 3.5 (target INR of 3).Grayson GH, et al. Chest 2012, 141:7S-47SNishimura RA, et al. JACC 2017, 70: 252-289 Performed By: #### 1 4979-9, 61622-2 ####[facility] LABCLIA [id number] [address] [place] PT Coag (PPP) [Time] 10.6 s Normal 9.7-13.0 [facility] Comment on above: Order Comment: Speci men Type: BLOOD SPECIMENOrdering Facility: [facility] Address: [address] [place] [address] Performed By: #### 1 4979-9, 56774-7 ####[facility] LABCLIA [id number] [place] [address] [place] [facility] TYPE AND SCREEN,30 DAYon ABO A Normal [facility] [place] Comment on above: Order Comment: Speci men Type: BLOOD SPECIMENOrdering Facility: [facility] Address: [address] [place] [address] Performed By: #### T SCR30 ####[facility] BLOOD BANKIA [id number] [address] HISTORICAL AB SCR STATUS Negative Normal [facility] [place] Comment on above: Order Comment: Speci men Type: BLOOD SPECIMENOrdering Facility: [facility] Address: [address] [place] [address] Performed By: #### T SCR30 ####[facility] BLOOD BANKCLIA [id number] [address] Rh Nom (Bld) Positive Normal [facility] [place] Comment on above: Order Comment: Speci men Type: BLOOD SPECIMENOrdering Facility: [facility] Address: [address] [place], [place] [address] Performed By: #### T SCR30 ####[facility] BLOOD BANKCLIA [id number] [address] [place] aPTT PPPon 02-16-2023 aPTT Coag (PPP) [Time] 29.6 s Normal 23.0-32.4 [facility] Comment on above: Order Comment: Speci men Type: BLOOD SPECIMENOrdering Facility: [facility] Address: [address] [place], [place] [address] Performed By: #### 1 4979-9, 85469-0 ####[facility] LABCLIA [id number] [address] [id number] [place] CNPNon 02-03-2023 CNPN Normal [facility] CNPNon 02-02-2023 CNPN Normal [facility] CNOVon 12-19-2022 CNOV Normal [facility] CNPNon 11-29-2022 CNPN Normal [facility] US THYROIDon 11-04-2022 US THYROID ORIGINAL EXAMINATION: Ultrasound Thyroid 3:29 p.m. on 11/02/2022 COMPARISON: None HISTORY: ORDERING SYSTEM PROVIDED HISTORY: Reason for Exam: left palpable thyromegaly, FINDINGS: Size right thyroid lobe: 3.8 x 1.4 x 1.1 cm Size left thyroid lobe: 3.1 x 1.4 x 1.0 cm Size isthmus: 0.16 cm Texture: Homogenous No thyroid nodules are identified. Normal thyroid vascularity. No abnormality identified in the surrounding soft tissues. IMPRESSION: Normal thyroid ultrasound. No left lobe enlargement or mass is seen. Correlate with clinical findings of thyromegaly on the left. I have personally reviewed the images of this examination and agree with the resident's findings and interpretation. Interpreted by: Adolfo Myrick MD Preliminary Report By: Joseph Tariq Electronically signed By Adolfo Myrick MD Dictated Date: 11/03/2022 3:06:14 PM Prelim Date: 11/04/2022 11:25:24 AM Sign Date: 11/04/2022 11:25:24 AM Ordering Provider: NIKITA Bailey [facility] ([place]) .Auto Diffon 11-02-2022 Basophil, Absolute 0.0 10 3/mcL Normal 0.0-0.2 [facility] ([place]) Comment on above: Performed By: #### A DIFF, A1C, ANEU, FT3, FT4, CBC, TSH #### [place] [address] [address] Basophils/100 WBC (Bld) 0.5 % Normal 0.0-2.5 [facility] ([place] Comment on above: Performed By: #### A DIFF, A1C, ANEU, FT3, FT4, CBC, TSH #### [address] [address] Eosinophil, Absolute 0.2 10 3/mcL Normal 0.0-0.4 [facility] ([place] Comment on above: Performed By: #### A DIFF, A1C, ANEU, FT3, FT4, CBC, TSH #### [address] [address] Eosinophils/100 WBC (Bld) 2.4 % Normal 0.0-7.0 [facility] ([place]) Comment on above: Performed By: #### A DIFF, A1C, ANEU, FT3, FT4, CBC, TSH #### [address] [address] Lymphocyte, Absolute 2.6 10 3/mcL Normal 0.8-3.9 [facility] ([place] Comment on above: Performed By: #### A DIFF, A1C, ANEU, FT3, FT4, CBC, TSH #### [address] [address] Lymphocytes/100 WBC (Bld) 28.8 % Normal 10.0-50.0 [facility] ([place] Comment on above: Performed By: #### A DIFF, A1C, ANEU, FT3, FT4, CBC, TSH #### [address] [address] Monocyte, Absolute 0.6 10 3/mcL Normal 0.2-1.0 [facility] ([place] Comment on above: Performed By: #### A DIFF, A1C, ANEU, FT3, FT4, CBC, TSH #### [address] [address] Monocytes/100 WBC (Bld) 6.6 % Normal 1.7-13.0 [facility] ([place] Comment on above: Performed By: #### A DIFF, A1C, ANEU, FT3, FT4, CBC, TSH #### [address] [address] Neutrophils/100 WBC (Bld) 61.7 % Normal 37.0-80.0 [facility] ([place]) Comment on above: Performed By: #### A DIFF, A1C, ANEU, FT3, FT4, CBC, TSH #### [address] [address] .NEUABSon 11-02-2022 Neutrophil, Absolute 5.5 10 3/mcL Normal 2.9-6.2 [facility] ([place] Comment on above: Performed By: #### A DIFF, A1C, ANEU, FT3, FT4, CBC, TSH #### [address] [place] [id number] A1Con 11-02-2022 HbA1c (Bld) [Mass fraction] 4.9 % Normal 4.3-6.4 [facility] [place] Comment on above: Performed By: #### A DIFF, A1C, ANEU, FT3, FT4, CBC, TSH #### [address] [address] CBCon 11-02-2022 Erythrocyte distribution width (RBC) [Ratio] 13.4 % Normal 11.5-14.5 [facility] [place] Comment on above: Performed By: #### A DIFF, A1C, ANEU, FT3, FT4, CBC, TSH #### [address] [address] Hematocrit (Bld) [Volume fraction] 46.5 % Normal 42.0-52.0 [facility] [place] Comment on above: Performed By: #### A DIFF, A1C, ANEU, FT3, FT4, CBC, TSH #### [address] [address] Hgb 15.6 G/dL Normal 14.0-18.0 [facility] [place] Comment on above: Performed By: #### A DIFF, A1C, ANEU, FT3, FT4, CBC, TSH #### [address] [id number] MCH (RBC) [Entitic mass] 27.6 pg Normal 27.0-31.2 [facility] [place] Comment on above: Performed By: #### A DIFF, A1C, ANEU, FT3, FT4, CBC, TSH #### [address] [address] MCHC 33.5 G/dL Normal 31.8-35.4 [facility] [place] Comment on above: Performed By: #### A DIFF, A1C, ANEU, FT3, FT4, CBC, TSH #### [address] [address] MCV (RBC) [Entitic vol] 82.4 fL Normal 80.0-94.0 [facility] ([place] Comment on above: Performed By: #### A DIFF, A1C, ANEU, FT3, FT4, CBC, TSH #### [address] [address] Platelet 356 10 3/mcL Normal 130-400 [facility] ([place] Comment on above: Performed By: #### A DIFF, A1C, ANEU, FT3, FT4, CBC, TSH #### [address] [address] Platelet mean volume (Bld) [Entitic vol] 7.2 fL Low 7.4-10.4 [facility] ([place] Comment on above: Performed By: #### A DIFF, A1C, ANEU, FT3, FT4, CBC, TSH #### [address] [address] RBC 5.65 10 6/mcL Normal 4.04-6.13 [facility] ([place] Comment on above: Performed By: #### A DIFF, A1C, ANEU, FT3, FT4, CBC, TSH #### [address] [address] WBC 8.9 10 3/mcL Normal 4.6-10.8 [facility] ([place] Comment on above: Performed By: #### A DIFF, A1C, ANEU, FT3, FT4, CBC, TSH #### [address] [address] FT3on 11-02-2022 Free T3 [Mass/Vol] 3.47 pg/mL Normal 2.30-4.00 [facility] ([place]) Comment on above: Performed By: #### A DIFF, A1C, ANEU, FT3, FT4, CBC, TSH #### [address] [place], [place] [address] FT4on 11-02-2022 Free T4 [Mass/Vol] 0.96 ng/dL Normal 0.76-1.46 [facility] ([place] Comment on above: Performed By: #### A DIFF, A1C, ANEU, FT3, FT4, CBC, TSH #### [address] [place], [place] [address] LABORATORYOrdered By: Sony Mckeon on 11-02-2022 Basophil, Absolute 0.0 103/mcL Invalid Interpretation Code 0.0 - 0.2 10^3/mcL AO Workflow SS Basophils/100 WBC (Bld) 0.5 % Invalid Interpretation Code 0.0 - 2.5 % AO Workflow SS Eosinophil, Absolute 0.2 103/mcL Invalid Interpretation Code 0.0 - 0.4 10^3/mcL AO Workflow SS Eosinophils/100 WBC (Bld) 2.4 % Invalid Interpretation Code 0.0 - 7.0 % AO Workflow SS Erythrocyte distribution width (RBC) [Ratio] 13.4 % Invalid Interpretation Code 11.5 - 14.5 % AO Workflow SS Hematocrit (Bld) [Volume fraction] 46.5 % Invalid Interpretation Code 42.0 - 52.0 % AO Workflow SS Hemoglobin (Bld) [Mass/Vol] 15.6 G/dL Invalid Interpretation Code 14.0 - 18.0 G/dL AO Workflow SS Lymphocyte, Absolute 2.6 103/mcL Invalid Interpretation Code 0.8 - 3.9 10^3/mcL AO Workflow SS Lymphocytes/100 WBC (Bld) 28.8 % Invalid Interpretation Code 10.0 - 50.0 % AO Workflow SS MCH (RBC) [Entitic mass] 27.6 pg Invalid Interpretation Code 27.0 - 31.2 pg AO Workflow SS MCHC 33.5 G/dL Invalid Interpretation Code 31.8 - 35.4 G/dL AO Workflow SS MCV (RBC) [Entitic vol] 82.4 fL Invalid Interpretation Code 80.0 - 94.0 fL AO Workflow SS Monocyte, Absolute 0.6 103/mcL Invalid Interpretation Code 0.2 - 1.0 10^3/mcL AO Workflow SS Monocytes/100 WBC (Bld) 6.6 % Invalid Interpretation Code 1.7 - 13.0 % AO Workflow SS Neutrophil, Absolute 5.5 103/mcL Invalid Interpretation Code 2.9 - 6.2 10^3/mcL AO Workflow SS Neutrophils/100 WBC (Bld) 61.7 % Invalid Interpretation Code 37.0 - 80.0 % AO Workflow SS Platelet mean volume (Bld) [Entitic vol] 7.2 fL Invalid Interpretation Code 7.4 - 10.4 fL AO Workflow SS Platelets (Bld) [#/Vol] 356 103/mcL Invalid Interpretation Code 130 - 400 10^3/mcL AO Workflow SS RBC (Bld) [#/Vol] 5.65 106/mcL Invalid Interpretation Code 4.04 - 6.13 10^6/mcL AO Workflow SS WBC (Bld) [#/Vol] 8.9 103/mcL Invalid Interpretation Code 4.6 - 10.8 10^3/mcL AO Workflow SS LABORATORYOrdered By: SYSTEM SYSTEM on 11-02-2022 Free T3 [Mass/Vol] 3.47 pg/mL Invalid Interpretation Code 2.30 - 4.00 pg/mL AO ADM SS Free T4 [Mass/Vol] 0.96 ng/dL Invalid Interpretation Code 0.76 - 1.46 ng/dL AO ADM SS HbA1c (Bld) [Mass fraction] 4.9 % Invalid Interpretation Code 4.3 - 6.4 % AO ADM SS TSH Qn 1.86 m[IU]/L Invalid Interpretation Code 0.36 - 3.74 mcIU/mL AO ADM SS TSHon 11-02-2022 TSH Qn 1.86 m[IU]/L Normal 0.36-3.74 [facility] ([place]) Comment on above: Performed By: #### A DIFF, A1C, ANEU, FT3, FT4, CBC, TSH #### [address] [address] CNOVon 08-01-2022 CNOV Normal [facility] HISTORY PHYSICALon HISTORY PHYSICAL Normal [facility] Progress Noteon 07-05-2022 [employer] Authentication Interface Message Text Marcos Aguirre is here for: Follow up visit for GT issues (and followed for nutrition as well) ---He is accompanied parents ---Last seen May 2021 ---Patient admitted in Oct 2020 to surgery service with Small Bowel Obstruction History of Present Illness This is not a consultation. He is accompanied by his father and mother. No school speech language pathologist was used. Past Hx: Marcos is a 26 yo white male seen in myelomeningocele clinic in follow up for emesis. He has a history of spina bifida with neurogenic bowel and bladder, with Bowens. He was last seen by Karan Fernandez NP on 05/12/2017 and then underwent EGD (Dr Rey) on 05/2017. Visually showed duodenitis; pathology showed mild esophagitis - otherwise normal. He self- discontinued the prilosec as they felt it was not helping his symptoms at all. ---- Vital Peptide 1.5 - 2 boxes per day ---all at night ---Rate at 85cc - 12 hours to finish whole feed ---Water - 16-10oz of water per day GT - Has had recurrent bleeding issues recently ---Placed 01/29/19 (Dr. Sheikh) - 20F, PEG Mini Button ABD pain - No issues Stooling -With Colostomy (Placed 01/29/19, Dr. Sheikh) - Emptying multiple times per day (2x per day); no blood ---but with increased activity, seems to empty better ---Patient may have issues with anal leakage; not helped with Fleet enemas (per patient) ---Patient had bowel resection in Oct 2020; doing well now UO - Mitrofenoff ---Need to cath all the time; usually 2x per day ---Still having some stone issues; had surgery at [facility] for stones ---Emptying bag everyday N/V - No recurrent issues recently Appetite - Meal - Still eating through day, but not a lot ---GT feeds tolerated well now ---But in past several weeks, patient likely with viral illness/ileus, and caused issues with tolerating feeds Dysphagia - ? issues with trouble chewing ---takes a long time to eat ---No food impactions; gets to stomach and comes back up Growth - ? down 1.6kg from last seen (May 2021) Activity - Overall doing well Wound - NO issues noted ---has not needed to follow up with wound team Zofran - Has not needed Periactin - 1x per day ---4mg per dose Pepcid - Nothing for now Currently - Doing well today. No clinical signs of obstruction. Able to tolerate full feed and fluid intake last night. Past Medical History Past Medical History: Diagnosis Date Bladder calculus Chronic kidney disease Delay in development Metabolic disease Neurogenic bladder Pneumonia Post-operative infection 06/26/2007 s aureus Pressure sore 09/14/2012 Scoliosis Spina bifida with hydrocephalus thoracic level Tethered spinal cord Past Surgical History Past Surgical History: Procedure Laterality Date ABDOMEN SURGERY N/A 05/04/2015 mitrofanoff, bladder neck repair, bowens stoma creation with colon flap; bladder neck sling MMK performed by Chris Cobb MD at [facility] OR ADENOIDECTOMY BLADDER SURGERY N/A 10/03/2016 VESICOLOTHOTOMY possible lithoclast performed by Chris Cobb MD at [facility] OR COLOSTOMY N/A 01/29/2019 COLOSTOMY performed by Perry Sheikh MD at [facility] OR GASTROSTOMY N/A 01/29/2019 ENDOSCOPIC GASTROSTOMY PERCUTANEOUS performed by Perry Sheikh MD at [facility] OR GASTROSTOMY 05/16/2019 gastrostomy tube removal performed by Perry Sheikh MD at [facility] OR HERNIA REPAIR HIP FUSION Right 05/16/2019 RIGHT HIP DISARTICULATION VERSUS CASTLE PROXIMAL FEMORAL RESECTION AND FLAP COVERAGE performed by Cruz Ramires MD at [facility] OR KIDNEY STONE SURGERY N/A 02/15/2018 CYSTOSCOPY WITH LITHOLAPAXY/VESICOLITHO TRIPSY/CYSTOLITHOPAXY & HOLMIUM LASER performed by Chris Cobb MD at [facility] OR LAMINECTOMY 05/24/2005 Untethering of spinal cord LAPAROTOMY N/A 11/04/2020 LAPAROTOMY, EXPLORATORY, POSSIBLE BOWEL RESECTION, POSSIBLE PARASTOMAL HERNIA REPAIR, POSSIBLE OSTOMY REVISION performed by Ronnie Mendez MD at [facility] OR LITHOTRIPSY N/A 12/21/2017 cystoscopy and Holmium laser lithotripsy of bladder calculi possible vesicolithotomy performed by Chris Cobb MD at [facility] OR MYELOMENINGOCELE REPAIR ORTHOPEDIC SURGERY 06/26/2007 I & D of spinal wound with DuraSeal control of spinal leak ORTHOPEDIC SURGERY 09/18/2007 Removal of distal end of both posterior spinal rods ORTHOPEDIC SURGERY 01/25/2008 Incision, debridement and drainage of spinal infection, closure over Tobramycin, calcium sulfate pellets OTHER SURGICAL HISTORY bowens stoma/ mitroffanof OTHER SURGICAL HISTORY vesicolothomy PICC PLACEMENT AK ANESTH,UGI ENDOSCOPY AK UROLOGY SURGERY PROCEDURE UNLISTED RECONSTRUCTIVE FLAP SURGERY 05/16/2019 EXCISION OF ISCHIAL PRESSURE ULCER WITH FLAP CLOSURE performed by Trent Issa MD at [facility] OR SPINAL FUSION 06/06/2007 RSF with instrumentation T2 to sacrum SPINAL FUSION 05/26/2010 Staged (single day) posterior fusion and anterior interbody fusion with instrumen (more content not included)... Normal [facility] ED Provider Progress Noteon 06-25-2022 [employer] Authentication Interface Message Text Marcos Aguirer : 1995 Chief Complaint Patient presents with Abdominal Pain Emesis Allergies Allergen Reactions Latex Other (See Comments) precaution Other Rash bactrim ointment Bacitracin Rash Levaquin [Levofloxacin] Other (See Comments) Skin turns red all over. Sulfa Antibiotics Rash DOS: 06/25/2022 Patient with past hx of spina bifida, PEG tube, colostomy with revision in [address] abd findings. Notes that past 1.5 weeks has been having episodes of nausea, vomiting and decreased ostomy output. Initially occurred last with symptoms and was seen Monday with no abnormalities and improvement in symptoms. States that he went to work for 3 days without any emesis but recurred Monday on. Had CT done yesterday by GI order along with labs. Read showing left lower abdominal hernia with bowel loop and proximal dilation concerning for obstruction. Has tolerated PO and G tube feeds yesterday without emesis. Having gas in ostomy but minimal stool. No food this morning but also no emesis. No fevers or chills. Feels pressure in lower chest as he has no sensation below this area. Review of Systems Constitutional: Positive for appetite change. Negative for activity change, fatigue and fever. HENT: Negative for congestion, ear pain, rhinorrhea and trouble swallowing. Eyes: Negative for pain and redness. Respiratory: Negative for cough, choking and shortness of breath. Cardiovascular: Negative for chest pain. Gastrointestinal: Positive for abdominal distention, nausea and vomiting. Negative for abdominal pain and diarrhea. Genitourinary: Negative for decreased urine volume and dysuria. Musculoskeletal: Negative for back pain, joint swelling, neck pain and neck stiffness. Skin: Negative for color change, pallor, rash and wound. Neurological: Negative for syncope, weakness, numbness and headaches. Past Medical History: Diagnosis Date Bladder calculus Chronic kidney disease Delay in development Metabolic disease Neurogenic bladder Pneumonia Post-operative infection 06/26/2007 s aureus Pressure sore 09/14/2012 Scoliosis Spina bifida with hydrocephalus thoracic level Tethered spinal cord Past Surgical History: Procedure Laterality Date ABDOMEN SURGERY N/A 05/04/2015 mitrofanoff, bladder neck repair, bowens stoma creation with colon flap; bladder neck sling MMK performed by Chris Cobb MD at [facility] OR ADENOIDECTOMY BLADDER SURGERY N/A 10/03/2016 VESICOLOTHOTOMY possible lithoclast performed by Chris Cobb MD at [facility] OR COLOSTOMY N/A 01/29/2019 COLOSTOMY performed by Perry Sheikh MD at [facility] OR GASTROSTOMY N/A 01/29/2019 ENDOSCOPIC GASTROSTOMY PERCUTANEOUS performed by Perry Sheikh MD at [facility] OR GASTROSTOMY 05/16/2019 gastrostomy tube removal performed by Perry Sheikh MD at [facility] OR HERNIA REPAIR HIP FUSION Right 05/16/2019 RIGHT HIP DISARTICULATION VERSUS CASTLE PROXIMAL FEMORAL RESECTION AND FLAP COVERAGE performed by Cruz Ramires MD at [facility] OR KIDNEY STONE SURGERY N/A 02/15/2018 CYSTOSCOPY WITH LITHOLAPAXY/VESICOLITHO TRIPSY/CYSTOLITHOPAXY & HOLMIUM LASER performed by Chris Cobb MD at [facility] OR LAMINECTOMY 05/24/2005 Untethering of spinal cord LAPAROTOMY N/A 11/04/2020 LAPAROTOMY, EXPLORATORY, POSSIBLE BOWEL RESECTION, POSSIBLE PARASTOMAL HERNIA REPAIR, POSSIBLE OSTOMY REVISION performed by Ronnie Mendez MD at [facility] OR LITHOTRIPSY N/A 12/21/2017 cystoscopy and Holmium laser lithotripsy of bladder calculi possible vesicolithotomy performed by Chris Cobb MD at [facility] OR MYELOMENINGOCELE REPAIR ORTHOPEDIC SURGERY 06/26/2007 I & D of spinal wound with DuraSeal control of spinal leak ORTHOPEDIC SURGERY 09/18/2007 Removal of distal end of both posterior spinal rods ORTHOPEDIC SURGERY 01/25/2008 Incision, debridement and drainage of spinal infection, closure over Tobramycin, calcium sulfate pellets OTHER SURGICAL HISTORY bowens stoma/ mitroffanof OTHER SURGICAL HISTORY vesicolothomy PICC PLACEMENT [place] ANESTH,UGI ENDOSCOPY [place] UROLOGY SURGERY PROCEDURE UNLISTED RECONSTRUCTIVE FLAP SURGERY 05/16/2019 EXCISION OF ISCHIAL PRESSURE ULCER WITH FLAP CLOSURE performed by Trent Issa MD at [facility] OR SPINAL FUSION 06/06/2007 RSF with instrumentation T2 to sacrum SPINAL FUSION 05/26/2010 Staged (single day) posterior fusion and anterior interbody fusion with instrumentation TONSILLECTOMY TONSILLECTOMY AND ADENOIDECTOMY UPPER GASTROINTESTINAL ENDOSCOPY N/A 06/20/2017 ENDOSCOPY UPPER (FLEXIBLE) with biopsies performed by Augustin Rey MD at [facility] OR VENTRICULOPERITONEAL SHUNT Pediatric History Patient Parents/Guardians Marcos Aguirre (Self/Guardian) Wendi Aguirre (Mother) Jae Aguirre (Father) Other Topics Concern Not on file Social History Narrative Not on file ED Triage Vitals Date and Time Temp Temp src Pulse Resp BP SpO2 Weight User (more content not included)... Normal [facility] Basic Metabolic Panelon 09 Calcium [Mass/Vol] 9.5 mg/dL Normal 7.6-11.0 [facility] Comment on above: Order Comment: Relea se to patient->Automatic 79110&Blood Performed By: #### B MP #### [address] [id number] CO2 [Moles/Vol] 29.8 mmol/L High 22.0-29.0 [facility] Comment on above: Order Comment: Relea se to patient->Automatic 09363&Blood Performed By: #### B MP #### [address] [id number] Creatinine [Mass/Vol] 0.51 mg/dL Low 0.70-1.20 [facility] Comment on above: Order Comment: Relea se to patient->Automatic 30107&Blood Performed By: #### B MP #### [address] [address] Glucose [Mass/Vol] 84 mg/dL Normal 70-99 [facility] Comment on above: Order Comment: Relea se to patient->Automatic 16004&Blood Result Comment: Salty guardado for Diagnosis of Diabetes: Fasting Specimen (no caloric intake for at least 8 hours): <100 mg/dL Normal 100-125 mg/dL Increased risk for Diabetes >125 mg/dL Diagnostic for Diabetes Random Glucose (any time of day without regard to last meal): > or = 200 mg/dL plus Classic Symptoms of Diabetes Performed By: #### B MP #### [place] [address] Urea nitrogen [Mass/Vol] 12 mg/dL Normal 4-19 [facility] Comment on above: Order Comment: Relea se to patient->Automatic 65108&Blood Performed By: #### B MP #### [address] [address] Chloride [Moles/Vol] 97 mmol/L Normal 96-108 [facility] Comment on above: Order Comment: Relea se to patient->Automatic 20612&Blood Performed By: #### B MP #### [address] [address] Potassium [Moles/Vol] 3.5 mmol/L Normal 3.3-5.1 [facility] Comment on above: Order Comment: Relea se to patient->Automatic 17216&Blood Performed By: #### B MP #### [address] [address] Sodium [Moles/Vol] 138 mmol/L Normal 133-145 [facility] Comment on above: Order Comment: Relea se to patient->Automatic 77350&Blood Performed By: #### B MP #### [facility] [address] [place] [address] C-Reactive Proteinon 022 C-Reactive Protein 1.0 mg/dL Normal 0.0-1.0 [facility] Comment on above: Order Comment: Relea se to patient->Automatic 74316&Blood Result Comment: CRP determinations in neonates should be interpreted with caution. CRP may be elevated in circumstances not associated with inflammation (e.g. difficult delivery, pneumothorax). In premature neonates CRP levels may not rise to abnormal levels even if sepsis is present; some speculate that immature liver function decreases the ability to generate a CRP response. Performed By: #### C RP #### [address] [address] [address] ABDOMEN/PELVIS WITH IV CO NTRASTon 06-24-2022 CT ABDOMEN/PELVIS WITH IV CONTRAST CLINICAL HISTORY: Ostomy; ABD surgery - recurrent ABD pain and vomiting COMPARISON: CT abdomen pelvis 11/02/2020 TECHNIQUE: CT of the abdomen and pelvis was performed with sagittal and coronal reformats with intravenous contrast and without oral contrast. DOSE LINEAR PRODUCT: 274.4 mGy-cm. FINDINGS: Left ventriculoperitoneal shunt catheter courses down the left chest and abdomen film is looped in the abdomen pelvis and tip is in the left upper quadrant. LOWER CHEST: Minimal atelectasis in the dependent lower lobes. LIVER and BILIARY SYSTEM: Normal. SPLEEN: Normal. PANCREAS: Normal. ADRENAL GLANDS: Normal. KIDNEYS, URETER, and BLADDER: Mild bilateral renal scarring without pelvocaliectasis. There is a bladder catheter from the anterior abdominal wall. The bladder is decompressed, but there is bladder wall trabeculation with irregularity/thickening . BOWEL: Osteotomy is in the right lower quadrant. Postsurgical changes from prior bowel resection are seen. There is a herniated bowel loop into the left lower aterior abdominal wall (series 6 image 10). Just proximal to this, there are several loops of bowel which are mildly dilated measuring up to 3.6 cm and there is a transition point with the more distal bowel decompressed (series 6 images 4-16 and series 3 image 48-56). There is an additional bowel containing hernia in the right anterior abdominal wall inferior and medial to the ostomy site and near the bladder catheter abdominal wall insertion without bowel dilation. The distal colon is decompressed and there is surgical material at the anastomosis in the left upper quadrant. APPENDIX: Surgically absent. PERITONEAL CAVITY: No free air or free fluid. VASCULATURE: Normal. LYMPH NODES: Normal. ABDOMINAL WALL: Normal. OSSEOUS STRUCTURES: Patient is status post right hemipelvectomy and removal of the proximal right femur. Postsurgical spinal fusion hardware with marked dextroscoliotic curvature of the spine. IMPRESSION: 1. Left lower anterior abdominal wall hernia containing bowel with dilated proximal bowel loops concerning for bowel obstruction. 2. Right lower quadrant anterior abdominal wall hernia without bowel dilation. 3. Decompressed bladder with bladder trabeculation and catheter present. This report has been created using voice recognition software Signed by: Dr. Diana Moura at 06/24/2022 16:57 Normal [facility] Hemogramon 06-24-2022 Erythrocyte distribution width (RBC) [Ratio] 13.4 % Normal 0.0-14.4 [facility] Comment on above: Order Comment: Relea se to patient->Automatic 42780&Blood Performed By: #### H EGRM #### [address] [address] Hematocrit (Bld) [Volume fraction] 46.6 % Normal 41.0-50.0 [facility] Comment on above: Order Comment: Relea se to patient->Automatic 90085&Blood Performed By: #### H EGRM #### [address] [address] Hemoglobin (Bld) [Mass/Vol] 15.2 g/dL Normal 13.5-16.5 [facility] Comment on above: Order Comment: Relea se to patient->Automatic 59241&Blood Performed By: #### H EGRM #### [address] [address] MCH (RBC) [Entitic mass] 27.3 pg Normal 26.0-34.0 [facility] Comment on above: Order Comment: Relea se to patient->Automatic 40791&Blood Performed By: #### H EGRM #### [address] [address] MCHC 32.6 % Normal 31.0-37.0 [facility] Comment on above: Order Comment: Relea se to patient->Automatic 35649&Blood Performed By: #### H EGRM #### [address] [address] MCV (RBC) [Entitic vol] 83.7 fL Normal 80.0-100.0 [facility] Comment on above: Order Comment: Relea se to patient->Automatic 75444&Blood Performed By: #### H EGRM #### [address] [address] Nucleated RBC/100 WBC (Bld) [Ratio] 0.0 % Normal -1.0-0.0 [facility] Comment on above: Order Comment: Relea se to patient->Automatic 72858&Blood Performed By: #### H EGRM #### [address] [address] Platelet mean volume (Bld) [Entitic vol] 9.5 fL Normal [facility] Comment on above: Order Comment: Relea se to patient->Automatic 24713&Blood Result Comment: MPV is platelet range and age dependent Performed By: #### H EGRM #### [address] [address] Platelets (Bld) [#/Vol] 328 10*3/uL Normal 150-450 [facility] Comment on above: Order Comment: Relea se to patient->Automatic 95467&Blood Performed By: #### H EGRM #### [address] [address] RBC 5.57 10E12/L High 4.50-5.50 [facility] Comment on above: Order Comment: Relea se to patient->Automatic 77526&Blood Performed By: #### H EGRM #### [address] [address] WBC (Bld) [#/Vol] 10.3 10*3/uL Normal 4.5-11.0 [facility] Comment on above: Order Comment: Relea se to patient->Automatic 92348&Blood Performed By: #### H EGRM #### [address] [address] Hepatic Panelon 06-24-2022 Albumin [Mass/Vol] 4.4 g/dL Normal 3.5-5.0 [facility] Comment on above: Order Comment: Relea se to patient->Automatic 88899&Blood Performed By: #### L IVER #### [address] [address] ALP [Catalytic activity/Vol] 86 U/L Normal 40-129 [facility] Comment on above: Order Comment: Relea se to patient->Automatic 74706&Blood Performed By: #### L IVER #### [address] [address] AST [Catalytic activity/Vol] 39 U/L High 0-37 [facility] Comment on above: Order Comment: Relea se to patient->Automatic 89716&Blood Performed By: #### L IVER #### [address] [address] Bili, Conjugated <0.2 Normal 0.0-0.7 [facility] Comment on above: Order Comment: Relea se to patient->Automatic 40184&Blood Performed By: #### L IVER #### [address] [address] Bili,Total 0.5 mg/dL Normal 0.0-1.0 [facility] Comment on above: Order Comment: Relea se to patient->Automatic 26224&Blood Performed By: #### L IVER #### [facility] [address] [place] [address] Protein [Mass/Vol] 8.2 g/dL Normal 5.9-8.4 [facility] Comment on above: Order Comment: Relea se to patient->Automatic 99352&Blood Performed By: #### L IVER #### [facility] [address] [place] [address] ALT [Catalytic activity/Vol] 68 U/L High 0-46 [facility] Comment on above: Order Comment: Relea se to patient->Automatic 01352&Blood Performed By: #### L IVER #### [facility] [address] [place] [address] Lipaseon 06-24-2022 Lipase [Catalytic activity/Vol] 19 U/L Normal 13-95 [facility] Comment on above: Order Comment: Relea se to patient->Automatic 25572&Blood Performed By: #### L IPAS #### [facility] [address] [place] [address] ABDOMEN 1 VIEWon 06-19-2022 ABDOMEN 1 VIEW Clinical history: Vomiting.. Colostomy. Rule out obstruction. COMPARISON: November 02 2 November 04, 2020 Results: Single view abdomen demonstrates scattered air in the bowel with one loop of small bowel measuring up to 2.4 cm. No free air is visualized. Marked thoracolumbar rotary scoliosis status post spinal fixation with cage spacers. The left femoral head is dysmorphic and dislocated. No right femur is identified. There are multiple surgical clips adjacent to the right acetabulum. SPRAY PILOT shunt tubing. Lung bases clear. Right lower quadrant ostomy bag IMPRESSION: No significant dilated loops of small bowel are identified to suggest obstruction. This report has been created using voice recognition software Signed by: Dr. Nikita Plascencia at 06/19/2022 12:15 Normal [facility] ED Provider Progress Noteon 06-19-2022 [employer] Authentication Interface Message Text Marcos Aguirre : 1995 Chief Complaint Patient presents with Other Allergies Allergen Reactions Latex Other (See Comments) precaution Other Rash bactrim ointment Bacitracin Rash Levaquin [Levofloxacin] Other (See Comments) Skin turns red all over. Sulfa Antibiotics Rash DOS: 06/19/2022 26yo male with pmhx of spina bifida, colostomy, g tube, matofonof presents to the ED with vomiting and decreased ostomy output. Beginning pt had decreased ostomy output. When he has the output it is diarrhea. Pt also having vomiting with every g-tube feed. No blood in BM or vomiting. Denies fevers. PT has had a prior SBO a year ago. Pt had chronic numbness below chest so can not assess if abd pain. However pt thinks he is more distended. The history is provided by the patient. Review of Systems Constitutional: Negative for chills and fever. HENT: Negative for congestion, ear pain and sore throat. Eyes: Negative for pain and redness. Respiratory: Negative for cough and shortness of breath. Cardiovascular: Negative for chest pain and leg swelling. Gastrointestinal: Positive for vomiting. Negative for abdominal pain, diarrhea and nausea. Genitourinary: Negative for decreased urine volume, dysuria, frequency and hematuria. Musculoskeletal: Negative for back pain and neck pain. Skin: Negative for rash. Neurological: Negative for syncope, weakness and numbness. Psychiatric/Behavioral: Negative for confusion. Past Medical History: Diagnosis Date Bladder calculus Chronic kidney disease Delay in development Metabolic disease Neurogenic bladder Pneumonia Post-operative infection 06/26/2007 s aureus Pressure sore 09/14/2012 Scoliosis Spina bifida with hydrocephalus thoracic level Tethered spinal cord Past Surgical History: Procedure Laterality Date ABDOMEN SURGERY N/A 05/04/2015 mitrofanoff, bladder neck repair, bowens stoma creation with colon flap; bladder neck sling MMK performed by Chris Cobb MD at [facility] OR ADENOIDECTOMY BLADDER SURGERY N/A 10/03/2016 VESICOLOTHOTOMY possible lithoclast performed by Chris Cobb MD at [facility] OR COLOSTOMY N/A 01/29/2019 COLOSTOMY performed by Perry Sheikh MD at [facility] OR GASTROSTOMY N/A 01/29/2019 ENDOSCOPIC GASTROSTOMY PERCUTANEOUS performed by Perry Sheikh MD at [facility] OR GASTROSTOMY 05/16/2019 gastrostomy tube removal performed by Perry Sheikh MD at [facility] OR HERNIA REPAIR HIP FUSION Right 05/16/2019 RIGHT HIP DISARTICULATION VERSUS CASTLE PROXIMAL FEMORAL RESECTION AND FLAP COVERAGE performed by Cruz Ramires MD at [facility] OR KIDNEY STONE SURGERY N/A 02/15/2018 CYSTOSCOPY WITH LITHOLAPAXY/VESICOLITHO TRIPSY/CYSTOLITHOPAXY & HOLMIUM LASER performed by Chris Cobb MD at [facility] OR LAMINECTOMY 05/24/2005 Untethering of spinal cord LAPAROTOMY N/A 11/04/2020 LAPAROTOMY, EXPLORATORY, POSSIBLE BOWEL RESECTION, POSSIBLE PARASTOMAL HERNIA REPAIR, POSSIBLE OSTOMY REVISION performed by Ronnie Mendez MD at [facility] OR LITHOTRIPSY N/A 12/21/2017 cystoscopy and Holmium laser lithotripsy of bladder calculi possible vesicolithotomy performed by Chris Cobb MD at [facility] OR MYELOMENINGOCELE REPAIR ORTHOPEDIC SURGERY 06/26/2007 I & D of spinal wound with DuraSeal control of spinal leak ORTHOPEDIC SURGERY 09/18/2007 Removal of distal end of both posterior spinal rods ORTHOPEDIC SURGERY 01/25/2008 Incision, debridement and drainage of spinal infection, closure over Tobramycin, calcium sulfate pellets OTHER SURGICAL HISTORY bowens stoma/ mitroffanof OTHER SURGICAL HISTORY vesicolothomy PICC PLACEMENT [place] ANESTH,UGI ENDOSCOPY [place] UROLOGY SURGERY PROCEDURE UNLISTED RECONSTRUCTIVE FLAP SURGERY 05/16/2019 EXCISION OF ISCHIAL PRESSURE ULCER WITH FLAP CLOSURE performed by Trent Issa MD at [facility] OR SPINAL FUSION 06/06/2007 RSF with instrumentation T2 to sacrum SPINAL FUSION 05/26/2010 Staged (single day) posterior fusion and anterior interbody fusion with instrumentation TONSILLECTOMY TONSILLECTOMY AND ADENOIDECTOMY UPPER GASTROINTESTINAL ENDOSCOPY N/A 06/20/2017 ENDOSCOPY UPPER (FLEXIBLE) with biopsies performed by Augustin Rey MD at [facility] OR VENTRICULOPERITONEAL SHUNT Pediatric History Patient Parents ArchiemehnazWendidarius Corbin (Mother) ArchiemehnazJae Reginaldo (Father) Other Topics Concern Not on file Social History Narrative Not on file ED Triage Vitals Date and Time Temp Temp src Pulse Resp BP SpO2 Weight User 06/19/22 1107 -- -- -- -- -- -- 46.2 kg JDB 06/19/22 1055 36.6 C (97.9 F) Temporal 97 24 126/86 100 % -- Physical Exam Vitals and nursing note reviewed. Constitutional: General: He is not in acute distress. Appearance: Normal appearance. He is not ill-appearing. HENT: Head: Normocephalic and atraumatic. Right Ear: Tympanic membrane normal. Left Ear: Tympanic membrane normal. Nose: Nose normal. No congestion. Mouth/Throat: Mouth: Mucous membran (more content not included)... Normal [facility] XR Abdomen Viewson IMPRESSION: No significant dilated loops of small bowel are identified to suggest obstruction. This report has been created using voice recognition software [facility] RADIOLOGY Clinical history: Vomiting.. Colostomy. Rule out obstruction. COMPARISON: November 02 2 November 04, 2020 Results: Single view abdomen demonstrates scattered air in the bowel with one loop of small bowel measuring up to 2.4 cm. No free air is visualized. Marked thoracolumbar rotary scoliosis status post spinal fixation with cage spacers. The left femoral head is dysmorphic and dislocated. No right femur is identified. There are multiple surgical clips adjacent to the right acetabulum. SPRAY PILOT shunt tubing. Lung bases clear. Right lower quadrant ostomy bag [facility] RADIOLOGY Nikita Plascencia MD - 06/19/2022 Clinical history: Vomiting.. Colostomy. Rule out obstruction. COMPARISON: November 02 2 November 04, 2020 Results: Single view abdomen demonstrates scattered air in the bowel with one loop of small bowel measuring up to 2.4 cm. No free air is visualized. Marked thoracolumbar rotary scoliosis status post spinal fixation with cage spacers. The left femoral head is dysmorphic and dislocated. No right femur is identified. There are multiple surgical clips adjacent to the right acetabulum. SPRAY PILOT shunt tubing. Lung bases clear. Right lower quadrant ostomy bag IMPRESSION: No significant dilated loops of small bowel are identified to suggest obstruction. This report has been created using voice recognition software [facility] Radiology Study observation (narrative) [facility] XR Abdomen ViewsOrdered By: Nikita Plascencia on 06-19-2022 [facility] Work Phone: [phone] [facility] [place] 2021 25-hydroxyvitamin D3 [Mass/Vol] 35.1 ng/mL Normal 31.0-80.0 [facility] Comment on above: Order Comment: Speci men Type: BLOOD SPECIMENOrdering Facility: [facility] Address: [address] [place], [place] [id number] Result Comment: Clas sification of 25 [place] Vitamin D status:Deficiency/Insufficiency: < or = 30 ng/ml.Sufficiency/Optimal Levels: 31-80 ng/mLToxicity: > 100 ng/mL.Test performed by chemiluminescent immunoassay. Performed By: #### 1 989-3 ####[facility] LABCLIA [id number] [place] [address] [place] Basic metabolic 2000 panelon 06-14-2022 Anion gap [Moles/Vol] 12 mmol/L Normal 9-18 [facility] Comment on above: Order Comment: Speci men Type: BLOOD SPECIMENOrdering Facility: [facility] Address: [address] [place], [place] [id number] Performed By: #### 2 4325-3, 91092-7 ####[facility] [id number] [place] [address] [place] Calcium [Mass/Vol] 9.5 mg/dL Normal 8.5-10.2 [facility] Comment on above: Order Comment: Speci men Type: BLOOD SPECIMENOrdering Facility: [facility] Address: [address] [place], [place] [id number] Performed By: #### 2 4325-3, 10402-6 ####[facility] [id number] [place] [id number] [place] Chloride [Moles/Vol] 100 mmol/L Normal 97-105 [facility] Comment on above: Order Comment: Speci men Type: BLOOD SPECIMENOrdering Facility: [facility] Address: [address] [place], [place] [address] Performed By: #### 2 4325-3, 88132-3 ####[facility] TEREZA SANCHEZLIA [id number] [place] [address] [place] CO2 [Moles/Vol] 26 mmol/L Normal 22-30 [facility] Comment on above: Order Comment: Speci men Type: BLOOD SPECIMENOrdering Facility: [facility] Address: [address] [place] [address] Performed By: #### 2 4325-3, 62180-4 ####[facility] DANIELLIA [id number] [place] [address] [place] Creatinine [Mass/Vol] 0.43 mg/dL Low 0.73-1.22 [facility] Comment on above: Order Comment: Speci men Type: BLOOD SPECIMENOrdering Facility: [facility] Address: [address] [place] [address] Performed By: #### 2 4325-3, 07135-7 ####[facility] SILVANOMADISONKYRALIA [id number] [place] [address] [place] GFR/1.73 sq M.predicted among non-blacks MDRD (S/P/Bld) [Vol rate/Area] mL/min/{1.73_m2} Normal >=60 [facility] Comment on above: Order Comment: Speci men Type: BLOOD SPECIMENOrdering Facility: [facility] Address: [address] [place] [address] Result Comment: Mary mated Glomerular Filtration Rate (eGFR) is calculated using the 2020 CKD-EPI creatinine equation. This equation utilizes serum creatinine, sex, and age as parameters. The creatinine assay has traceable calibration to isotope dilution-mass spectrometry. Refer to KDIGO guidelines for clinical interpretation. In patients with unstable renal function, e.g. those with acute kidney injury, the eGFR may not accurately reflect actual GFR. Performed By: #### 2 4325-3, 01655-0 ####[facility] [id number] [place] [address] [place] Glucose [Mass/Vol] 109 mg/dL High 74-99 [facility] Comment on above: Order Comment: Speci men Type: BLOOD SPECIMENOrdering Facility: [facility] Address: [address] [place] [address] Result Comment: The [place] Diabetes Association (ADA) provides guidance for cutoff values for fasting glucose and random glucose. The ADA defines fasting as no caloric intake for at least 8 hours. Fasting plasma glucose results between 100 to 125 mg/dL indicate increased risk for diabetes (prediabetes).Fasting plasma glucose results greater than or equal to 126 mg/dL meet the criteria for diagnosis of diabetes. In the absence of unequivocal hyperglycemia, results should be confirmed by repeat testing. In a patient with classic symptoms of hyperglycemia or hyperglycemic crisis, random plasma glucose results greater than or equal to 200 mg/dL meet the criteria for diagnosis of diabetes.Reference: Standards of Medical Care in Diabetes 2016, [place] Diabetes Association. Diabetes Care. 2016.39(Suppl 1). Performed By: #### 2 4325-3, 56975-0 ####[facility] [id number] [place] [address] [place] Potassium [Moles/Vol] 3.8 mmol/L Normal 3.7-5.1 [facility] Comment on above: Order Comment: Speci men Type: BLOOD SPECIMENOrdering Facility: [facility] Address: [address] [id number] Performed By: #### 2 4325-3, 88762-7 ####[facility] [id number] [place] [address] [place] Sodium [Moles/Vol] 138 mmol/L Normal 136-144 [facility] Comment on above: Order Comment: Speci men Type: BLOOD SPECIMENOrdering Facility: [facility] Address: [address] [id number] Performed By: #### 2 4325-3, 45064-9 ####[facility] MILLTOWNCLIA [id number] [place] [address] [place] Urea nitrogen [Mass/Vol] 13 mg/dL Normal 9-24 [facility] Comment on above: Order Comment: Speci men Type: BLOOD SPECIMENOrdering Facility: [facility] Address: [address] [place] [address] Performed By: #### 2 4325-3, 41370-3 ####[facility] MILLTOWNCLIA [id number] [place] [address] [place] CBC panel Auto (Bld)on 06-14 Erythrocyte distribution width (RBC) [Ratio] 13.4 % Normal 11.5-15.0 [facility] Comment on above: Order Comment: Speci men Type: BLOOD SPECIMENOrdering Facility: [facility] Address: [address] [place] [address] Performed By: #### 5 8410-2 ####[facility]ITALWKYRALIA [id number] [address] [place] Hematocrit (Bld) [Volume fraction] 47.5 % Normal 39.0-51.0 [facility] Comment on above: Order Comment: Speci men Type: BLOOD SPECIMENOrdering Facility: [facility] Address: [address] [place] [address] Performed By: #### 5 8410-2 ####[facility] EDUINWKYRALIA [id number] [address] [place] Hemoglobin (Bld) [Mass/Vol] 15.3 g/dL Normal 13.0-17.0 [facility] Comment on above: Order Comment: Speci men Type: BLOOD SPECIMENOrdering Facility: [facility] Address: [address] [place] [address] Performed By: #### 5 8410-2 ####[facility]ITALL[facility] [id number] [place] [address] [place] MCH (RBC) [Entitic mass] 26.9 pg Normal 26.0-34.0 [facility] Comment on above: Order Comment: Speci men Type: BLOOD SPECIMENOrdering Facility: [facility] Address: [address] [place] [address] Performed By: #### 5 8410-2 ####[facility] [id number] [place] [address] [place] MCHC (RBC) [Mass/Vol] 32.2 g/dL Normal 30.5-36.0 [facility] Comment on above: Order Comment: Speci men Type: BLOOD SPECIMENOrdering Facility: [facility] Address: [address] [place] [address] Performed By: #### 5 8410-2 ####[facility] MIAMIKYRACoty [id number] [address] [place] MCV (RBC) [Entitic vol] 83.6 fL Normal 80.0-100.0 [facility] Comment on above: Order Comment: Speci men Type: BLOOD SPECIMENOrdering Facility: [facility] Address: [address] [place] [address] Performed By: #### 5 8410-2 ####[facility] MIAMIKYRACoty [id number] [place] [address] [place] Nucleated RBC (Bld) [#/Vol] 10*3/uL Normal <0.01 [facility] Comment on above: Order Comment: Speci men Type: BLOOD SPECIMENOrdering Facility: [facility] Address: [address] [place] [address] Performed By: #### 5 8410-2 ####[facility] MIAMINCLIA [id number] [place] [address] [place] Platelet mean volume (Bld) [Entitic vol] 9.0 fL Normal 9.0-12.7 [facility] Comment on above: Order Comment: Speci men Type: BLOOD SPECIMENOrdering Facility: [facility] Address: [address] [place] [address] Performed By: #### 5 8410-2 ####[facility] MIAMINCTIERRA [id number] [place] [address] [place] Platelets (Bld) [#/Vol] 289 10*3/uL Normal 150-400 [facility] Comment on above: Order Comment: Speci men Type: BLOOD SPECIMENOrdering Facility: [facility] Address: [address] [place] [address] Performed By: #### 5 8410-2 ####[facility] MIAMINCLIA [id number] [place] [address] [place] RBC (Bld) [#/Vol] 5.68 10*6/uL Normal 4.20-6.00 [facility] Comment on above: Order Comment: Speci men Type: BLOOD SPECIMENOrdering Facility: [facility] Address: [address] [place] [address] Performed By: #### 5 8410-2 ####[facility] MIAMINCLIA [id number] [place] [address] [place] WBC (Bld) [#/Vol] 7.40 10*3/uL Normal 3.70-11.00 [facility] Comment on above: Order Comment: Speci men Type: BLOOD SPECIMENOrdering Facility: [facility] Address: [address] [place] [address] Performed By: #### 5 8410-2 ####[facility]ITALWNCLIA [id number] [place] [address] [place] CYSTATIN Con 06-14-2022 Cystatin C [Mass/Vol] 0.87 mg/L Normal 0.61-0.95 [facility] Comment on above: Order Comment: Speci men Type: BLOOD SPECIMENOrdering Facility: [facility] Address: [address] [place] [address] Performed By: #### 2 4331-1 ####[facility] LABCLIA [id number] [address] [id number] [place] [address] [place]#### CYSTC, 2276-01, 2132-06 ####[facility] [id number] [address] STATES [facility] CYSTATIN C EGFR 108 mL/min/1.73m??? Normal >=60 [facility] Comment on above: Order Comment: Speci men Type: BLOOD SPECIMENOrdering Facility: [facility] Address: [address] [place] [address] Result Comment: Mary mated Glomerular Filtration Rate (eGFR) is calculated using the 2012 CKD-EPI cystatin C equation. This equation utilizes serum cystatin C, sex, and age as parameters. The cystatin C assay has traceable calibration to the ERM-DA471/IF reference material. Refer to KDIGO guidelines for clinical interpretation. In patients with unstable renal function, e.g. those with acute kidney injury, the eGFR may not accurately reflect actual GFR. Performed By: #### 2 4331-1 ####[facility] LABCLIA [id number] [address] [id number] [place] [address] [place]#### CYSTC, 2276-01, 2132-06 ####[facility] LABCLIA [id number] [place] [address] [place] Ferritin SerPl-mCncon 2021 Ferritin [Mass/Vol] 50.7 ng/mL Normal 30.3-565.7 [facility] Comment on above: Order Comment: Speci men Type: BLOOD SPECIMENOrdering Facility: [facility] Address: [address] [place], [place] [address] Performed By: #### 2 4331-1 ####[facility] LABCLIA [id number] [address] STATES [facility] TEREZA MILLWNYLIA [id number] [place] [address] [place]#### CYSTC, 2276-4, 2132-9 ####[facility] LABCLIA [id number] [place] [address] [place] Hepatic function 2000 panelo n 06-14-2022 Albumin [Mass/Vol] 4.7 g/dL Normal 3.9-4.9 [facility] Comment on above: Order Comment: Speci men Type: BLOOD SPECIMENOrdering Facility: [facility] Address: [address] [place], [place] [address] Performed By: #### 2 4325-3, 25814-1 ####[facility] [id number] [place] [address] [place] ALP [Catalytic activity/Vol] 96 U/L Normal 38-113 [facility] Comment on above: Order Comment: Speci men Type: BLOOD SPECIMENOrdering Facility: [facility] Address: [address] [place], [place] [address] Performed By: #### 2 4325-3, 77706-9 ####[facility] MILLWNCLIA [id number] [place] [address] [place] ALT [Catalytic activity/Vol] 39 U/L Normal 10-54 [facility] Comment on above: Order Comment: Speci men Type: BLOOD SPECIMENOrdering Facility: [facility] Address: [address] [place] [address] Performed By: #### 2 4325-3, 13044-7 ####[facility] SILVANOGARIMANCCONCETTAA [id number] [place] [address] [place] AST [Catalytic activity/Vol] 23 U/L Normal 14-40 [facility] Comment on above: Order Comment: Speci men Type: BLOOD SPECIMENOrdering Facility: [facility] Address: [address] [place] [address] Performed By: #### 2 4325-3, 84147-9 ####[facility] MIAMINCCONCETTAA [id number] [place] [address] [place] Bilirubin [Mass/Vol] 0.4 mg/dL Normal 0.2-1.3 [facility] Comment on above: Order Comment: Speci men Type: BLOOD SPECIMENOrdering Facility: [facility] Address: [address] [place] [address] Performed By: #### 2 4325-3, 05958-9 ####[facility] MIAMINCLIA [id number] [place] [address] [place] Bilirubin.conjugated [Mass/Vol] mg/dL Normal <0.2 [facility] Comment on above: Order Comment: Speci men Type: BLOOD SPECIMENOrdering Facility: [facility] Address: [address] [place] [address] Performed By: #### 2 4325-3, 22989-3 ####[facility] MIAMINCLIA [id number] [place] [address] [place] Protein [Mass/Vol] 8.0 g/dL Normal 6.3-8.0 [facility] Comment on above: Order Comment: Speci men Type: BLOOD SPECIMENOrdering Facility: [facility] Address: [address] [id number] Performed By: #### 2 4325-3, 75774-4 ####[facility] [id number] [place] [address] [place] Lipid 1996 panelon 2 Cholesterol [Mass/Vol] 186 mg/dL Normal <200 [facility] Comment on above: Order Comment: Speci men Type: BLOOD SPECIMENOrdering Facility: [facility] Address: [address] [place] [address] Result Comment: <200 mg/dL, Desirable 200-239 mg/dL, Borderline high>239 mg/dL, High Performed By: #### 2 4331-1 ####[facility] LABCLIA [id number] [address] [id number] [place] [address] [place]#### CYSTC, 2276-01, 2132-06 ####[facility] LABCLIA [id number] [place] [address] [place] Cholesterol in HDL [Mass/Vol] 42 mg/dL Normal >39 [facility] Comment on above: Order Comment: Speci men Type: BLOOD SPECIMENOrdering Facility: [facility] Address: [address] [place] [address] Result Comment: 40-5 9 mg/dL, Acceptable>59 mg/dL, High: Negative risk factor for coronary heart disease<40 mg/dL, Low: Positive risk factor for coronary heart disease Performed By: #### 2 4331-1 ####[facility] LABCLIA [id number] [address] OF [facility] [id number] [address] [place]#### CYSTC, 2276-01, 2132-06 ####[facility] LABCLIA [id number] [address] STATES [facility] Cholesterol in LDL [Mass/Vol] 122 mg/dL High <100 [facility] Comment on above: Order Comment: Speci men Type: BLOOD SPECIMENOrdering Facility: [facility] Address: [address] [place] [address] Result Comment: <100 mg/dL, Optimal 100-129 mg/dL, Near optimal/above optimal 130-159 mg/dL, Borderline high 160-189 mg/dL, High>189 mg/dL, Very highSecondary prevention optimal LDL Cholesterol levels are recommended to be < 70 mg/dL Performed By: #### 2 4331-1 ####[facility] LABIA [id number] [address] [id number] [address]#### CYSTC, 2275-, 2132-06 ####[facility] LABIA [id number] [address] STATES [facility] Cholesterol in LDL/Cholesterol in HDL [Mass ratio] 2.90 {ratio} High <2.54 [facility] Comment on above: Order Comment: Speci men Type: BLOOD SPECIMENOrdering Facility: [facility] Address: [address] [place], [place] [address] Result Comment: Bouchra patiño:1. National Cholesterol Education Program ATP III Guideline At-A-Glance Quick Desk Reference: National Heart, Lung, and Blood [place]. National Institutes of Health. 2001: NIH Publication No. 01-3305.2. An International Atherosclerosis Society position paper: global recommendations for the management of dyslipidemia: executive summary, Atherosclerosis. 2014: 232(2):410-413. Performed By: #### 2 4331-1 ####[facility] LABIA [id number] [address] [address] [place] [address] [facility] [id number] [place] [address] [place]#### CYSTC, 2276-01, 2132-06 ####[facility] LABCLIA [id number] [address] [address] [place] Cholesterol in VLDL [Mass/Vol] 22 mg/dL Normal <30 [facility] Comment on above: Order Comment: Speci men Type: BLOOD SPECIMENOrdering Facility: [facility] Address: [address] [place], [place] [address] Performed By: #### 2 4331-1 ####[facility] LABCLIA [id number] [address] [id number] [place] [address] [place]#### CYSTC, 2276-01, 2132-06 ####[facility] LABCLIA [id number] [place] [address] [place] Cholesterol non HDL [Mass/Vol] 144 mg/dL High <130 [facility] Comment on above: Order Comment: Speci men Type: BLOOD SPECIMENOrdering Facility: [facility] Address: [address] [place] [address] Result Comment: <130 mg/dL, Optimal 130-159 mg/dL, Near optimal/above optimal 160-189 mg/dL, Borderline high 190-219 mg/dL, High>219 mg/dL, Very highSecondary prevention optimal non HDL Cholesterol levels are recommended to be <100 mg/dL Performed By: #### 2 4331-1 ####[facility] LABCLIA [id number] [address] [address] [facility] [id number] [place] [address] [place]#### CYSTC, 6-4, 2132-06 ####[facility] LABCLIA [id number] [place] [address] [place] Cholesterol.total/Ch olesterol in HDL [Mass ratio] 4.43 {ratio} Normal <5.10 [facility] Comment on above: Order Comment: Speci men Type: BLOOD SPECIMENOrdering Facility: [facility] Address: [address] [place] [address] Performed By: #### 2 4331-1 ####[facility] LABCLIA [id number] [address] [id number] [place] [address] [place]#### CYSTC, 2276-01, 2132-06 ####[facility] LABCLIA [id number] [place] [address] [place] FASTING TIME 12 hrs Normal [facility] Comment on above: Order Comment: Speci men Type: BLOOD SPECIMENOrdering Facility: [facility] Address: [address] [place] [address] Performed By: #### 2 4331-1 ####[facility] LABCLIA [id number] [address] [id number] [place] [address] [place]#### CYSTC, 64, 2132-06 ####[facility] LABCLIA [id number] [place] [address] [place] Triglyceride [Mass/Vol] 111 mg/dL Normal <150 [facility] Comment on above: Order Comment: Speci men Type: BLOOD SPECIMENOrdering Facility: [facility] Address: [address] [id number] Result Comment: <150 mg/dL, Normal 150-199 mg/dL, Borderline high 200-499 mg/dL, High>499 mg/dL, Very high Performed By: #### 2 4331-1 ####[facility] LABCLIA [id number] [address] STATES OF [facility] [id number] [place] [address] [place]#### CYSTC, 4, 2132-06 ####[facility] LABCLIA [id number] [place] [address] [place] Vit B12 [facility] [place] 06-14- 022 Cobalamin (Vitamin B12) [Mass/Vol] 831 pg/mL Normal 232-1245 [facility] Comment on above: Order Comment: Speci men Type: BLOOD SPECIMENOrdering Facility: [facility] Address: [address] [place], [place] [address] Performed By: #### 2 4331-1 ####[facility] LABCLIA [id number] [address] [id number] [place] [address] [place]#### CYSTC, 2276-01, 2132-06 ####[facility] LABCLIA [id number] [place] [address] [place] CNPNon 04-28-2022 CNPN Normal [facility] CNCOon 03-25-2022 CNCO Normal [facility] CNOVon 03-25-2022 CNOV Normal [facility] CNPTOUTREACHon 03-25-2022 CNPTOUTREACH Normal [facility] US KIDNEY/BLADDERon 03-25-20 US KIDNEY/BLADDER Normal [facility] Vital Signs Date Time Vital Sign Value Performing Clinician Facility 06-05-2025 09:07-0400 Body height 157.[address] Nikita Gramajo DO Work Phone: [facility] 06-05-2025 09:07-0400 Body mass index (BMI) [Ratio] 18.4 kg/m2 Dr. Nikita Gramajo DO Work Phone: [facility] 06-05-2025 09:07-0400 Body temperature 97.3 [degF] Dr. Nikita Gramajo DO Work Phone: [facility] 06-05-2025 09:07-0400 Body weight 45.[address] Nikita Gramajo DO Work Phone: [facility] 06-05-2025 09:07-0400 Diastolic blood pressure 90 mm[Hg] Dr. Nikita priest DO Work Phone: [facility] 06-05-2025 09:07-0400 Heart rate 78 /min Dr. Nikita Gramajo DO Work Phone: [facility] 06-05-2025 09:07-0400 Respiratory rate 16 /min Dr. Nikita Gramajo DO Work Phone: [facility] 06-05-2025 09:07-0400 SaO2% (BldA) [Mass fraction] 99 % Dr. Nikita Gramajo DO Work Phone: [facility] 06-05-2025 09:07-0400 Systolic blood pressure 130 mm[Hg] Dr. Nikita scales DO Work Phone: [facility] 02-27-2025 09:01-0400 Body mass index (BMI) [Ratio] 18.4 kg/m2 Dr. Nikita Gramajo DO Work Phone: [facility] 02-27-2025 09:01-0400 Body temperature 97.3 [degF] Dr. Nikita Gramajo DO Work Phone: [facility] 02-27-2025 09:01-0400 Body weight 45.[address] Nikita Gramajo DO Work Phone: [facility] 02-27-2025 09:01-0400 Diastolic blood pressure 96 mm[Hg] Dr. Nikita priest DO Work Phone: [facility] 02-27-2025 09:01-0400 Heart rate 80 /min Dr. Nikita Gramajo DO Work Phone: [facility] 02-27-2025 09:01-0400 Respiratory rate 18 /min Dr. Nikita Gramajo DO Work Phone: [facility] 02-27-2025 09:01-0400 SaO2% (BldA) [Mass fraction] 96 % Dr. Nikita Gramajo DO Work Phone: [facility] 02-27-2025 09:01-0400 Systolic blood pressure 137 mm[Hg] Dr. Nikita scales DO Work Phone: [facility] 01-24-2025 08:37-0400 Diastolic blood pressure 87 mm[Hg] Kelsie Giraldo MD Work Phone: [facility] 01-24-2025 08:37-0400 Heart rate 82 /min Kelsie Giraldo MD Work Phone: [facility] 01-24-2025 08:37-0400 Systolic blood pressure 125 mm[Hg] Kelsie Giraldo MD Work Phone: [facility] 02-20-2024 20:22-0400 Body height 157.48 cm [facility] 02-20-2024 20:22-0400 Body temperature 96.8 [degF] [facility] 02-20-2024 20:22-0400 Diastolic blood pressure 85 mm[Hg] [facility] 02-20-2024 20:22-0400 Heart rate 82 /min [facility] 02-20-2024 20:22-0400 Respiratory rate 16 /min [facility] 02-20-2024 20:22-0400 SaO2% (BldA) [Mass fraction] 96 % [facility] 02-20-2024 20:22-0400 Systolic blood pressure 122 mm[Hg] [facility] 01-26-2024 08:11-0400 Diastolic blood pressure 85 mm[Hg] Klesie Giraldo MD Work Phone: [facility] 01-26-2024 08:11-0400 Heart rate 75 /min Kelsie Giraldo MD Work Phone: [facility] 01-26-2024 08:11-0400 Systolic blood pressure 132 mm[Hg] Kelsie Giraldo MD Work Phone: [facility] 08-25-2023 08:14-0400 Body height 154.9 cm Kelsie Giraldo MD Work Phone: [facility] 08-25-2023 08:14-0400 Body weight 40.82 kg Kelsie Giraldo MD Work Phone: [facility] 08-25-2023 08:14-0400 Diastolic blood pressure 80 mm[Hg] Kelsie Giraldo MD Work Phone: [facility] 08-25-2023 08:14-0400 Heart rate 97 /min Kelsie Giraldo MD Work Phone: [facility] 08-25-2023 08:14-0400 Systolic blood pressure 119 mm[Hg] Kelsie Giraldo MD Work Phone: [facility] 06-05-2023 15:16-0400 Body height 154.9 cm Marifer Dowd MD Work Phone: [facility] 06-05-2023 15:16-0400 Body temperature 98.01 [degF] Marifer Dowd MD Work Phone: [facility] 06-05-2023 15:16-0400 Body weight 45.36 kg Marifer Dowd MD Work Phone: [facility] 06-05-2023 15:16-0400 Diastolic blood pressure 84 mm[Hg] Marifer Dowd MD Work Phone: [facility] 06-05-2023 15:16-0400 Heart rate 94 /min Marifer Dowd MD Work Phone: [facility] 06-05-2023 15:16-0400 Systolic blood pressure 124 mm[Hg] Marifer Dowd MD Work Phone: [facility] 04-17-2023 11:24-0400 Body height 154.9 cm Marifer Dowd MD Work Phone: [facility] 04-17-2023 11:24-0400 Body temperature 97.39 [degF] Marifer Dowd MD Work Phone: [facility] 04-17-2023 11:24-0400 Diastolic blood pressure 76 mm[Hg] Marifer Dowd MD Work Phone: [facility] 04-17-2023 11:24-0400 Heart rate 92 /min Marifer Dowd MD Work Phone: [facility] 04-17-2023 11:24-0400 Respiratory rate 12 /min Marifer Dowd MD Work Phone: [facility] 04-17-2023 11:24-0400 Systolic blood pressure 115 mm[Hg] Marifer Dowd MD Work Phone: [facility] 03-15-2023 15:03-0400 SaO2% (BldA) [Mass fraction] 99 % NIKITA GAUTHIER [facility] Comment on above: Order Comment: Specimen Type: ARTERIAL B LOOD SPECIMENOrdering Facility: [facility] Address: [address] [place] [address] Performed By: #### A LLBG ####[facility] LABCLIA [id number] [address] OF [facility] 03-15-2023 13:35-0400 SaO2% (BldA) [Mass fraction] 99 % NIKITA GAUTHIER [facility] Comment on above: Order Comment: Specimen Type: ARTERIAL B LOOD SPECIMENOrdering Facility: [facility] Address: [address] [place] [address] Performed By: #### A LLBG ####[facility] LABCLIA [id number] [address] 03-15-2023 11:34-0400 SaO2% (BldA) [Mass fraction] 100 % NIKITA GAUTHIER [facility] Comment on above: Order Comment: Specimen Type: ARTERIAL B LOOD SPECIMENOrdering Facility: [facility] Address: [address] [place] [address] Performed By: #### A LLBG ####[facility] LABIA [id number] [address] 03-15-2023 05:55-0400 SaO2% (BldA) [Mass fraction] 99 % NIKITA GAUTHIER [facility] Comment on above: Order Comment: Specimen Type: ARTERIAL B LOOD SPECIMENOrdering Facility: [facility] Address: [address] [place] [address] Performed By: #### A LLBG ####[facility] LABIA [id number] [address] 03-15-2023 01:59-0400 SaO2% (BldA) [Mass fraction] 99 % NIKITA GAUTHIER [facility] Comment on above: Order Comment: Specimen Type: ARTERIAL B LOOD SPECIMENOrdering Facility: [facility] Address: [address] [place] [address] Performed By: #### A LLBG ####[facility] LABIA [id number] [address] 03-15-2023 00:20-0400 SaO2% (BldA) [Mass fraction] 100 % NIKITA GAUTHIER [facility] Comment on above: Order Comment: Specimen Type: ARTERIAL B LOOD SPECIMENOrdering Facility: [facility] Address: [address] [place] [address] Performed By: #### A LLBG ####[facility] LABIA [id number] [place] [id number] [facility] 03-14-2023 22:06-0400 SaO2% (BldA) [Mass fraction] 100 % NIKITA GAUTHIER [facility] Comment on above: Order Comment: Specimen Type: ARTERIAL B LOOD SPECIMENOrdering Facility: [facility] Address: [address] [place] [address] Performed By: #### A LLBG ####[facility] LABCLIA [id number] [address] 03-14-2023 20:05-0400 SaO2% (BldA) [Mass fraction] 99 % NIKITA GAUTHIER [facility] Comment on above: Order Comment: Specimen Type: ARTERIAL B LOOD SPECIMENOrdering Facility: [facility] Address: [address] [place] [address] Performed By: #### A LLMG ####[facility] LABCLIA [id number] [address] 03-14-2023 18:42-0400 SaO2% (BldA) [Mass fraction] 99 % NIKITA GAUTHIER [facility] Comment on above: Order Comment: Specimen Type: ARTERIAL B LOOD SPECIMENOrdering Facility: [facility] Address: [address] [place] [address] Performed By: #### A LLMG ####[facility] LABCLIA [id number] [address] 03-14-2023 17:33-0400 SaO2% (BldA) [Mass fraction] 99 % NIKITA GAUTHIER [facility] Comment on above: Order Comment: Specimen Type: ARTERIAL B LOOD SPECIMENOrdering Facility: [facility] Address: [address] [place], [place] [id number] Performed By: #### A LLBG ####[facility] LABCLIA [id number] [address] 03-14-2023 14:16-0400 SaO2% (BldA) [Mass fraction] 100 % NIKITA GAUTHIER [facility] Comment on above: Order Comment: Specimen Type: ARTERIAL B LOOD SPECIMENOrdering Facility: [facility] Address: [address] [place] [phone] Performed By: #### A LLMG ####[facility] LABCLIA [id number] [place] [id number] [facility] 03-14-2023 13:02-0400 SaO2% (BldA) [Mass fraction] 99 % NIKITA GAUTHIER [facility] Comment on above: Order Comment: Specimen Type: ARTERIAL B LOOD SPECIMENOrdering Facility: [facility] Address: [address] [place] [phone] Performed By: #### A LLMG ####[facility] LABCLIA [id number] [place] [id number] [facility] 03-14-2023 12:09-0400 SaO2% (BldA) [Mass fraction] 99 % NIKITA GAUTHIER [facility] Comment on above: Order Comment: Specimen Type: ARTERIAL B LOOD SPECIMENOrdering Facility: [facility] Address: [address] [place] [phone] Performed By: #### A LLMG ####[facility] LABCLIA [id number] [place] [id number] [facility] 02-16-2023 12:44-0400 Body height 154.9 cm Pacc 2 Work Phone: [facility] 02-16-2023 12:44-0400 Body temperature 97.59 [degF] Pacc 2 Work Phone: [facility] 02-16-2023 12:44-0400 Body weight 40.82 kg Pacc 2 Work Phone: [facility] 02-16-2023 12:44-0400 Diastolic blood pressure 71 mm[Hg] Pacc 2 Work Phone: [facility] 02-16-2023 12:44-0400 Heart rate 69 /min Pacc 2 Work Phone: [facility] 02-16-2023 12:44-0400 SaO2% (BldA) [Mass fraction] 99 % Pacc 2 Work Phone: [facility] 02-16-2023 12:44-0400 Systolic blood pressure 120 mm[Hg] Pacc 2 Work Phone: [facility] 02-16-2023 11:23-0400 Body height 154.9 cm Harry Shore MD Work Phone: [facility] 02-16-2023 11:23-0400 Body temperature 97.3 [degF] Harry Shore MD Work Phone: [facility] 02-16-2023 11:23-0400 Body weight 40.82 kg Harry Shore MD Work Phone: [facility] 02-16-2023 11:23-0400 Diastolic blood pressure 81 mm[Hg] Harry Russo Work Phone: [facility] 02-16-2023 11:23-0400 Heart rate 70 /min Harry Shore MD Work Phone: [facility] 02-16-2023 11:23-0400 Respiratory rate 16 /min Harry Shore MD Work Phone: [facility] 02-16-2023 11:23-0400 SaO2% (BldA) [Mass fraction] 99 % Harry Shore MD Work Phone: [facility] 02-16-2023 11:23-0400 Systolic blood pressure 126 mm[Hg] Harry Shore MD Work Phone: [facility] 12-19-2022 11:14-0500 Body height 154.9 cm Marifer Dowd MD Work Phone: [facility] 12-19-2022 11:14-0500 Body temperature 97.7 [degF] Marifer Dowd MD Work Phone: [facility] 12-19-2022 11:14-0500 Diastolic blood pressure 73 mm[Hg] Marifer Dowd MD Work Phone: [facility] 12-19-2022 11:14-0500 Heart rate 92 /min Marifer Dowd MD Work Phone: [facility] 12-19-2022 11:14-0500 Respiratory rate 15 /min Marifer Dowd MD Work Phone: [facility] 12-19-2022 11:14-0500 Systolic blood pressure 116 mm[Hg] Marifer Dowd MD Work Phone: [facility] 12-01-2022 13:15-0500 Body height 157.[address] Omi Adams Work Phone: [facility] 11-28-2022 11:42-0500 Body mass index (BMI) [Ratio] 18.1 kg/m2 Dr. Omi Adams Work Phone: [facility] 11-28-2022 11:42-0500 Body temperature 97.6 [degF] Dr. Omi Adams Work Phone: [facility] 11-28-2022 11:42-0500 Body weight 44.[address] Omi Adams Work Phone: [facility] 11-28-2022 11:42-0500 Diastolic blood pressure 81 mm[Hg] Dr. Omi Adams Work Phone: [facility] 11-28-2022 11:42-0500 Heart rate 109 /min Dr. Omi Adams Work Phone: [facility] 11-28-2022 11:42-0500 Respiratory rate 18 /min Dr. Omi Adams Work Phone: [facility] 11-28-2022 11:42-0500 SaO2% (BldA) [Mass fraction] 98 % Dr. Omi Adams Work Phone: [facility] 11-28-2022 11:42-0500 Systolic blood pressure 122 mm[Hg] Dr. Omi Adams Work Phone: [facility] 08-01-2022 10:08-0400 Body height 154.9 cm Marifer Dowd MD Work Phone: [facility] 08-01-2022 10:08-0400 Body temperature 98.71 [degF] Marifer Dowd MD Work Phone: [facility] 08-01-2022 10:08-0400 Body weight 46.72 kg Marifer Dowd MD Work Phone: [facility] 08-01-2022 10:08-0400 Diastolic blood pressure 73 mm[Hg] Marifer Dowd MD Work Phone: [facility] 08-01-2022 10:08-0400 Heart rate 92 /min Marifer Dowd MD Work Phone: [facility] 08-01-2022 10:08-0400 Systolic blood pressure 126 mm[Hg] Marifer Dowd MD Work Phone: [facility] 06-25-2022 16:06-0400 Body temperature 97.9 [degF] Alina Tatum DO Work Phone: [facility] 06-25-2022 16:06-0400 Diastolic blood pressure 79 mm[Hg] Alina Scales Work Phone: [facility] 06-25-2022 16:06-0400 Heart rate 84 /min Alina Verna DO Work Phone: [facility] 06-25-2022 16:06-0400 Respiratory rate 24 /min Alina Verna DO Work Phone: [facility] 06-25-2022 16:06-0400 SaO2% (BldA) [Mass fraction] 97 % Alian Castanedaer DO Work Phone: [facility] 06-25-2022 16:06-0400 Systolic blood pressure 116 mm[Hg] Alina Castanedaer DO Work Phone: [facility] 06-25-2022 14:19-0400 Body mass index (BMI) [Ratio] 25.24 kg/m2 Alina Castanedaer DO Work Phone: [facility] 06-25-2022 14:19-0400 Body weight 46 kg Alina Tatum DO Work Phone: [facility] 06-19-2022 11:07-0400 Body mass index (BMI) [Ratio] 25.35 kg/m2 Misha Camarena MD Work Phone: [facility] 06-19-2022 11:07-0400 Body weight 46.2 kg Misha Camarena MD Work Phone: [facility] 06-19-2022 10:55-0400 Body temperature 97.9 [degF] Misha Camarena MD Work Phone: [facility] 06-19-2022 10:55-0400 Diastolic blood pressure 86 mm[Hg] Misha Camarena MD Work Phone: [facility] 06-19-2022 10:55-0400 Heart rate 97 /min Misha Camarena MD Work Phone: [facility] 06-19-2022 10:55-0400 Respiratory rate 24 /min Misha Camarena MD Work Phone: [facility] 06-19-2022 10:55-0400 SaO2% (BldA) [Mass fraction] 100 % Misha Camarena MD Work Phone: [facility] 06-19-2022 10:55-0400 Systolic blood pressure 126 mm[Hg] Misha Camarena MD Work Phone: [facility] Encounters Encounter Date Encounter Type Care Provider Facility Start: 06-05-2025 End: 06-05-[address] Nikita Gramajo DO Work Phone: -[facility] Start: 06-05-2025 End: 06-05-2025 Patient encounter procedure Alexa Peterson SALES FLOOR TEAM LEADER-C -[facility] Work Phone: Start: 05-01-2025 End: 05-01-2025 Telephone encounter Inga Astudillo RN Urology Start: 02-27-2025 End: 02-27-2025 Patient encounter procedure Alexa Peterson SALES FLOOR TEAM LEADER-C -[facility] Work Phone: Start: 02-27-2025 End: 02-27-2025 ambulatory Alexa Peterson NP Facility:[facility] Start: 01-28-2025 End: 01-29-2025 Documentation procedure Kelsie Giraldo MD Work Phone: Urology Start: 01-28-2025 End: 01-29-2025 Letter encounter Kelsie Giraldo MD Work Phone: Urology Start: 01-27-2025 End: 01-27-2025 Telephone encounter Nikita Gauthier MD Work Phone: [facility] [place] Start: 01-26-2025 End: 03-28-2025 Follow-up encounter Nikita Gauthier MD Work Phone: [facility] [place] Start: 01-24-2025 End: 01-27-2025 ambulatory Kelsie Giraldo MD Work Phone: Urology Start: 01-24-2025 End: 01-24-2025 Subsequent hospital visit by physician Main A21 1 Radiology Comment on above: Presence of suprapub ic catheter (HCC) [Z93.59] Start: 01-24-2025 End: 01-24-2025 Office outpatient visit 15 minutes Nikita Gauthier MD Work Phone: Internal Medicine [facility] Comment on above: Spina bifida, unspec ified hydrocephalus presence, unspecified spinal region (HCC) (Primary Dx); G tube feedings (HCC); Viral URI; Screening for lipoid disorders; Screening for iron deficiency anemia; Vitamin D deficiency Start: 01-24-2025 End: 01-24-2025 Patient encounter procedure Kelsie Giraldo MD Work Phone: Urology Comment on above: Spina bifida with hy drocephalus, unspecified spinal region (HCC); Cloudy urine; Sinusitis, unspecified chronicity, unspecified location Paraplegia (HCC) (Pr imary Dx); Neurogenic bladder; Neurogenic bowel; Urinary retention; Spina bifida of thoracolumbar region with hydrocephalus (HCC) Start: 12-11-2024 End: 01-02-2025 ambulatory [facility] Comment on above: Spina Bifida on l 2024 Start: 12-11-2024 End: 01-02-2025 E-mail encounter from caregiver [facility] Start: 12-02-2024 End: 12-02-2024 ambulatory Kelsie Giraldo MD Work Phone: Urology Comment on above: Dequan Cole Start: 08-05-2024 End: 08-05-2024 ambulatory NIKITA GRAMAJO Facility:[facility] Start: 08-05-2024 End: 08-05-2024 Patient encounter procedure NIKITA GRAMAJO DO [facility] Start: 06-27-2024 End: 06-27-2024 Telephone encounter Dank Richey RN Work Phone: Urology Comment on above: Management Architect - O ther; Orders Start: 02-23-2024 Telephone encounter Nikita sue MD Work Phone: [facility] [place] Comment on above: CMN forms Start: 02-20-2024 End: 02-20-2024 Emergency department patient visit [facility] Work Phone: Start: 02-12-2024 Orders Only Sabiha Drake on CHILD SPECIALIST.[employer] ARCH[employer]ECT Work Phone: Urology Comment on above: 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) Start: 01-26-2024 End: 01-26-2024 ambulatory Jeri Mehta PA-C Work Phone: [facility] Comment on above: Congenital hydroceph alus (HCC) (Primary Dx) Start: 01-26-2024 End: 01-26-2024 Subsequent hospital visit by physician Main A21 2 Radiology Comment on above: Neurogenic bladder [ N31.9] Start: 01-26-2024 End: 01-26-2024 Telemedicine consultation with patient Jeri Obrien Tyson CARR Work Phone: [facility] Start: 01-26-2024 End: 01-26-2024 Office outpatient visit 25 minutes Nikita Gauthier MD Work Phone: Internal Medicine [facility] Comment on above: Spina bifida, unspec ified hydrocephalus presence, unspecified spinal region (HCC) (Primary Dx); G tube feedings (HCC); Screening for lipoid disorders; Screening for iron deficiency anemia; Vitamin D deficiency Start: 01-26-2024 End: 01-26-2024 Patient encounter procedure Mando Gibbs MD Work Phone: Neurology Comment on above: Paraplegia (HCC) (Pr imary Dx); Open wound of tissue overlying spine, unspecified laterality, initial encounter; Neurogenic bowel; Neurogenic bladder Neurogenic bladder ( Primary Dx) Start: 01-04-2024 Orders Only Kelsie Giraldo MD Work Phone: Urology Comment on above: Neurogenic bladder ( Primary Dx) Start: 09-07-2023 End: 09-12-2023 ambulatory NIKITA BELTRANFLEX RUBIN Facility:[facility] Start: 09-07-2023 End: 09-11-2023 Outreach Lab NIKITA BELTRANFLEX RUBIN [facility] Start: 08-28-2023 Documentation procedure Kelsie Giraldo MD Work Phone: [facility] Start: 08-28-2023 Letter encounter Kelsie Russo Work Phone: Urology Start: 08-25-2023 ambulatory Kelsie Giraldo MD Work Phone: Urology Start: 08-25-2023 End: 08-25-2023 Patient encounter procedure Kelsie Giraldo MD Work Phone: Urology Comment on above: Neurogenic bladder ( Primary Dx); Tachycardia; Recurrent UTI; Colostomy status (HCC) Paraplegia (HCC) (Pr imary Dx); Neurogenic bowel; Neurogenic bladder; Urinary retention Start: 07-31-2023 Telephone encounter Nikita sue MD Work Phone: [facility] [place] Comment on above: G-Tube Feeds Start: 07-20-2023 Telephone encounter Nikita sue MD Work Phone: [facility] [place] Comment on above: Forms Start: 06-07-2023 Orders Only Patricia Montalvo APRN.CNP Work Phone: General Surgery Comment on above: Parastomal hernia wi thout obstruction or gangrene (Primary Dx) Start: 06-05-2023 End: 06-05-2023 Patient encounter procedure Marifer Dowd MD Work Phone: General Surgery Comment on above: Encounter for follow -up (Primary Dx) Start: 04-17-2023 ambulatory Kelsie Giraldo MD Work Phone: Urology Start: 04-17-2023 End: 04-17-2023 Patient encounter procedure Marifer Dowd MD Work Phone: General Surgery Comment on above: Post-operative state (Primary Dx) Start: 04-17-2023 End: 04-17-2023 Patient encounter procedure Kelsie Giraldo MD Work Phone: Urology Comment on above: Cellulitis of buttoc k (Primary Dx); Suprapubic catheter (HCC); Neurogenic bladder Start: 03-31-2023 ambulatory Kelsie Giraldo MD Work Phone: Urology Comment on above: Medications Start: 03-14-2023 Evaluation and manag ement of inpatient NIKITA GRAMAJO IV Facility:[facility] Start: 02-16-2023 End: 02-17-2023 ambulatory MARIFER DOWD Facility:[facility] Start: 02-16-2023 End: 02-17-2023 ambulatory MARIFER DOWD Facility:[facility] Start: 02-16-2023 Encounter for other preprocedural examination NIKITA MEDINABARBI [facility] Start: 02-16-2023 End: 02-16-2023 Admission to establishment Pacc Main 2 Work Phone: [facility] Start: 02-16-2023 End: 02-16-2023 ambulatory Pacc Main 2 Work Phone: Pre Anesthesia Comment on above: Pre-op evaluation (P rimary Dx); NIGEL (obstructive sleep apnea); Preoperative examination; Parastomal hernia without obstruction or gangrene; G tube feedings (HCC); Colostomy present (HCC); Spina bifida of lumbosacral region with hydrocephalus (HCC); S/P ventriculoperitoneal shunt; Neurogenic bladder Start: 02-16-2023 End: 02-16-2023 Preprocedural examination done Pacc Main 2 Work Phone: Pre Anesthesia Start: 02-16-2023 End: 02-16-2023 Patient encounter procedure Harry Shore MD Work Phone: Colorectal Surgery Comment on above: Colostomy present (H CC) (Primary Dx); Parastomal hernia without obstruction or gangrene; Spina bifida of lumbosacral region with hydrocephalus (HCC); G tube feedings (HCC) Parastomal hernia wi thout obstruction or gangrene (Primary Dx) Start: 02-03-2023 Telephone encounter Matthew lopez MD Work Phone: Urology Comment on above: Patient Question Start: 02-02-2023 Telephone encounter Matthew lopez MD Work Phone: Urology Comment on above: Patient Question Start: 12-29-2022 End: 12-29-[address] Omi Adams Work Phone: [facility] Work Phone: Start: 12-29-2022 End: 12-29-[address] Omi Adams Work Phone: [facility]Neurology Start: 12-21-2022 ambulatory Marifer Russo Work Phone: [facility] Comment on above: 5.23 Cure (Parast omal hernia repair 10 hours los 10) Start: 12-21-2022 Preprocedural examin ation done Marifer Dowd MD Work Phone: [facility] Start: 12-19-2022 End: 12-20-2022 ambulatory MARIFER ЕКАТЕРИНА Facility:[facility] Start: 12-19-2022 End: 12-19-2022 Patient encounter procedure Marifer Dowd MD Work Phone: General Surgery Comment on above: Parastomal hernia wi thout obstruction or gangrene (Primary Dx) Start: 12-01-2022 End: 12-01-[address] [facility] Adams [facility] Start: 11-02-2022 End: 11-03-2022 ambulatory NIKITA GRAMAJO DO Facility:[facility] Start: 11-02-2022 End: 11-02-2022 Patient encounter procedure NIKITA GRAMAJO DO [facility] Start: 08-01-2022 End: 08-02-2022 ambulatory MARIFER DOWD Facility:[facility] Start: 08-01-2022 End: 08-01-2022 Patient encounter procedure Marifer Dowd MD Work Phone: General Surgery Comment on above: Parastomal hernia wi th obstruction and without gangrene (Primary Dx) Start: 07-05-2022 End: 07-05-2022 ambulatory NIKITA GRAMAJO [facility] Start: 06-25-2022 End: 06-25-2022 Emergency department patient visit NIKITA GRAMAJO [facility] Start: 06-25-2022 End: 06-25-2022 Emergency department patient visit Alina Tatum DO Work Phone: [facility] Comment on above: Abdominal wall herni a (Primary Dx) Start: 06-24-2022 End: 06-25-2022 ambulatory NIKITA GRAMAJO [facility] Start: 06-19-2022 End: 06-19-2022 Emergency department patient visit MISHA CAMARENA [facility] Start: 06-19-2022 End: 06-19-2022 Emergency department patient visit Misha Camarena MD Work Phone: [facility] Comment on above: Gastroenteritis (Carito dank Dx) Start: 06-14-2022 End: 06-14-2022 ambulatory NIKITA GAUTHIER Facility:[facility] Start: 06-03-2022 End: 06-03-2022 ambulatory NIKITA BELTRANFLEX BENAVIDES Facility:[facility] Start: 03-29-2022 Orders Only Kelsie Giraldo MD Work Phone: Urology Comment on above: 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) Start: 03-25-2022 End: 03-26-2022 ambulatory Kelsie Giraldo MD Work Phone: Urology Start: 03-25-2022 Documentation procedure Kelsie Giraldo MD Work Phone: [facility] Start: 03-25-2022 Letter encounter Kelsie Russo Work Phone: Urology Start: 03-25-2022 End: 03-25-2022 Subsequent hospital visit by physician Us Main A21 2 Radiology Comment on above: Neurogenic bladder [ N31.9] Start: 03-25-2022 End: 03-25-2022 Patient encounter procedure Mando Gibbs MD Work Phone: Neurology Comment on above: Paraplegia (HCC) (Pr imary Dx); Neurogenic bowel; Neurogenic bladder; Urinary retention; 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); Ulnar neuropathy at elbow of left upper extremity; Ulnar neuropathy at elbow of right upper extremity Spina bifida of lumb osacral region with hydrocephalus (HCC) (Primary Dx); G tube feedings (HCC); Vitamin D deficiency; Screening for lipoid disorders; Screening for iron deficiency anemia Start: 11-15-2021 Telephone encounter Batool Ruiz APRN.CNP Work Phone: Pre Anesthesia Comment on above: Pre-Op Update (+urin e cutlure) Procedures Date Procedure Procedure Detail Performing Clinician Start: 01-24-2025 Us retroperitoneal real time w/image complete Kelsie Giraldo MD Work Phone: Start: 01-26-2024 Us retroperitoneal real time w/image complete Kelsie Giraldo MD Work Phone: Start: 02-16-2023 Antibody screen NIKITA ADAMBARBI Comment on above: Order Comment: Specimen Type: BLOOD SPEC IMENOrdering Facility: [facility] Address: [address] [place] [address] Performed By: #### T [id number] ####CC MAIN BLOOD BANKCLIA [id number] [address] OF [facility] Start: 12-29-2022 Plain chest X-ray Dr. Omi Adams Work Phone: Start: 06-19-2022 Radiologic exam abdomen 1 view Joseph Dolan DO Work Phone: Start: 03-25-2022 Us retroperitoneal real time w/image complete Kelsie Giraldo MD Work Phone: Start: 05-16-2019 Amputated at hip (finding) NIKITA GRAMAJO DO Comment on above: rt Start: 02-08-2019 Colostomy NIKITA GRAMAJO DO Comment on above: with G tube Start: 1997 H/O: surgery S/P ventriculoperitoneal shunt Us 2 Back structure, excluding neck (body structure) NIKITA GRAMAJO DO Comment on above: multiple surgeries-rods 2006-multiple mae rgeries to clean up infections Catheter, device (physical object) NIKITA GRAMAJO DO H/O: colostomy Colostomy status (HCC) Nohemi Giraldo MD Work Phone: H/O: surgery SPRAY PILOT (ventriculope ritoneal) shunt status( Confirmed ) NIKITA GRAMAJO DO Spinal cord structur e (body structure) NIKITA GRAMAJO DO Comment on above: 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) NIKITA GRAMAJO DO Comment on above: 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 Plan of Treatment Date Care Activity Detail Author Start: 07-10-2025 End: 07-10-2025 ambulatory 07/10/2025 2:00 PM EDT OT/PT/Speech Visit [facility] Physical [facility] [address] [place] [address] Gloria Moralez, PT wheelchair [facility] [place] Comment on above: wheelchair Start: 06-23-2025 Influenza vaccination [facility] Start: 01-16-2025 End: 01-02-2026 Basic metabolic 2000 panel - Serum or Plasma BASIC METABOLIC PANEL Lab Routine Presence of suprapubic catheter (HCC) Neurogenic bladder Expected: 01/16/2025 (Approximate), Expires: 01/02/2026 [facility] Comment on above: Expected: 01/16/2025 (Approximate), Expi res: 01/02/2026 Start: 01-16-2025 End: 01-02-2026 Cobalamin (Vitamin B12) [Mass/volume] in Serum or Plasma VITAMIN B12 Lab Routine Presence of suprapubic catheter (HCC) Neurogenic bladder Expected: 01/16/2025 (Approximate), Expires: 01/02/2026 [facility] Comment on above: Expected: 01/16/2025 (Approximate), Expi res: 01/02/2026 Start: 01-16-2025 End: 01-02-2026 CYSTATIN C CYSTATIN C Lab Routine Presence of suprapubic catheter (HCC) Neurogenic bladder Expected: 01/16/2025 (Approximate), Expires: 01/02/2026 [facility] Comment on above: Expected: 01/16/2025 (Approximate), Expi res: 01/02/2026 Start: 01-16-2025 End: 02-01-2026 US Kidney - bilateral and Urinary bladder US KIDNEY/BLADDER Radiology Routine Presence of suprapubic catheter (HCC) Neurogenic bladder Expected: 01/16/2025 (Approximate), Expires: 02/01/2026 [facility] Work Phone: Comment on above: Expected: 01/16/2025 (Approximate), Expi res: 02/01/2026 Start: 06-23-2024 Covid-19 Vaccine () Covid-19 Vaccine () [facility] Start: 06-23-2024 Covid-19 Vaccine () Covid-19 Vaccine () [facility] Start: 06-23-2024 Influenza vaccination [facility] Start: 02-20-2024 [facility] Start: 01-18-2024 End: 01-03-2025 Basic metabolic 2000 panel - Serum or Plasma BASIC METABOLIC PNL Lab Routine Neurogenic bladder Expected: 01/18/2024 (Approximate), Expires: 01/03/2025 [facility] Work Phone: Comment on above: Expected: 01/18/2024 (Approximate), Expi res: 01/03/2025 Start: 01-18-2024 End: 01-03-2025 Cobalamin (Vitamin B12) [Mass/volume] in Serum or Plasma VITAMIN B12 BLOOD Lab Routine Neurogenic bladder Expected: 01/18/2024 (Approximate), Expires: 01/03/2025 [facility] Work Phone: Comment on above: Expected: 01/18/2024 (Approximate), Expi res: 01/03/2025 Start: 01-18-2024 End: 01-03-2025 CYSTATIN C CYSTATIN C Lab Routine Neurogenic bladder Expected: 01/18/2024 (Approximate), Expires: 01/03/2025 [facility] Work Phone: Comment on above: Expected: 01/18/2024 (Approximate), Expi res: 01/03/2025 Start: 10-23-2023 Behavioral Health Screening Behavioral Health Screening [facility] Start: 10-23-2023 Depression Assessment Depression Assessment [facility] Start: 06-23-2023 Covid-19 Vaccine () Covid-19 Vaccine () [facility] Start: 06-23-2023 Influenza vaccination [facility] Start: 12-21-2022 End: 12-22-2023 aPTT in Platelet poor plasma by Coagulation assay ACTIVATED PTT Lab Routine Preoperative examination Parastomal hernia without obstruction or gangrene Expected: 12/21/2022, Expires: 12/22/2023 [facility] Work Phone: Comment on above: Expected: 12/21/2022, Expires: 4 Start: 12-21-2022 End: 12-22-2023 CBC W Auto Differential panel - Blood CBC + DIFF Lab Routine Preoperative examination Parastomal hernia without obstruction or gangrene Expected: 12/21/2022, Expires: 12/22/2023 [facility] Work Phone: Comment on above: Expected: 12/21/2022, Expires: Start: 12-21-2022 End: 12-22-2023 Comprehensive metabolic 2000 panel - Serum or Plasma COMP METABOLIC PANEL Lab Routine Preoperative examination Parastomal hernia without obstruction or gangrene Expected: 12/21/2022, Expires: 12/22/2023 [facility] Work Phone: Comment on above: Expected: 12/21/2022, Expires: 4 Start: 12-21-2022 End: 12-22-2023 PT panel - Platelet poor plasma by Coagulation assay PROTHROMBIN TIME/PT Lab Routine Preoperative examination Parastomal hernia without obstruction or gangrene Expected: 12/21/2022, Expires: 12/22/2023 [facility] Work Phone: Comment on above: Expected: 12/21/2022, Expires: Start: 12-21-2022 End: 12-22-2023 TYPE AND SCREEN,30 DAY TYPE AND SCREEN,30 DAY Blood Bank Routine Preoperative examination Parastomal hernia without obstruction or gangrene Expected: 12/21/2022 (Approximate), Expires: 12/22/2023 [facility] Work Phone: Comment on above: Expected: 12/21/2022 (Approximate), Expi res: 12/22/2023 Start: 10-23-2022 DEPRESSION ASSESSMENT DEPRESSION ASSESSMENT [facility] Start: 07-05-2022 End: 07-05-2022 Patient encounter procedure 07/05/2022 Office Visit [place] [address] Gastroenterology - [facility] Start: 06-23-2022 FLU (#1) FLU (#1) [facility] Start: 06-23-2022 Influenza vaccination INFLUENZA (#1) [facility] Start: 05-13-2022 COVID-19 VACCINE (5 - Booster for Moderna series) COVID-19 VACCINE (5 - Booster for Moderna series) [facility] Start: 05-13-2022 COVID-19 VACCINE (5 - Moderna series) COVID-19 VACCINE (5 - Moderna series) [facility] Start: 03-24-2022 End: 03-24-2023 CBC panel - Blood by Automated count CBC Lab Routine Screening for iron deficiency anemia Expected: 03/24/2022, Expires: 03/24/2023 [facility] Work Phone: Comment on above: Expected: 03/24/2022, Expires: 3 Start: 03-24-2022 End: 03-24-2023 FERRITIN BLD FERRITIN BLD Lab Routine Screening for iron deficiency anemia Expected: 03/24/2022, Expires: 03/24/2023 [facility] Work Phone: Comment on above: Expected: 03/24/2022, Expires: 3 Start: 03-24-2022 End: 05-24-2022 HEPATIC FUNCTION PNL HEPATIC FUNCTION PNL Lab Routine Spina bifida of lumbosacral region with hydrocephalus (HCC) Expected: 03/24/2022, Expires: 05/24/2022 [facility] Work Phone: Comment on above: Expected: 03/24/2022, Expires: 2 Start: 03-24-2022 End: 03-24-2023 LIPID PANEL BASIC LIPID PANEL BASIC Lab Routine Screening for lipoid disorders Expected: 03/24/2022, Expires: 03/24/2023 [facility] Work Phone: Comment on above: Expected: 03/24/2022, Expires: 3 Start: 03-24-2022 End: 03-24-2023 VITAMIN D 25 HYDROXY VITAMIN D 25 HYDROXY Lab Routine Vitamin D deficiency Expected: 03/24/2022, Expires: 03/24/2023 [facility] Work Phone: Comment on above: Expected: 03/24/2022, Expires: 3 Start: 10-23-2021 DEPRESSION ASSESSMENT DEPRESSION ASSESSMENT [facility] Start: 07-02-2020 Urine microalbumin profile [facility] Start: 2015 Anxiety Screening Anxiety Screening [facility] Start: 2015 Depression Screening Depression Screening [facility] Start: 2015 HEPATITIS C SCREENING HEPATITIS C SCREENING [facility] Start: 2015 Hepatitis C screening Hepatitis C Screening [facility] Start: 2015 HIV SCREENING HIV SCREENING [facility] Start: 2015 HIV screening HIV Screening [facility] Start: 2013 MenB (1 of 2 - MenB 2-Dose Series) MenB (1 of 2 - MenB 2-Dose Series) [facility] Start: 2012 HPV Vaccine (1 - Male 3-dose series) HPV Vaccine (1 - Male 3-dose series) [facility] Start: 2011 PEDS TO ADULT TRANSITION ANNUAL ASSESSMENT PEDS TO ADULT TRANSITION ANNUAL ASSESSMENT [facility] Start: 2009 Adult depression screening assessment DEPRESSION SCREENING [facility] Start: 2009 PEDS TO ADULT TRANSITION INITIAL DISCUSSION PEDS TO ADULT TRANSITION INITIAL DISCUSSION [facility] Start: 2008 HPV (1 - Male 2-dose series) HPV (1 - Male 2-dose series) [facility] Start: 2008 HPV VACCINE (1 - Male 2-dose series) HPV VACCINE (1 - Male 2-dose series) [facility] Start: 2007 MENINGOCOCCAL B: Consider based on risk (1 of 2 - Risk Bexsero 2-dose series) MENINGOCOCCAL B: Consider based on risk (1 of 2 - Risk Bexsero 2-dose series) [facility] Start: 2006 HPV VACCINE (1 - Male 2-dose series) HPV VACCINE (1 - Male 2-dose series) [facility] Start: 2004 Tetanus Diphtheria and Pertussis Vaccines (1 - Tdap) Tetanus Diphtheria and Pertussis Vaccines (1 - Tdap) [facility] Start: 1998 MMR (1 of 1 - Standard series) MMR (1 of 1 - Standard series) [facility] Start: 1998 Varicella (1 of 2 - 2-dose childhood series) Varicella (1 of 2 - 2-dose childhood series) [facility] End: 08-23-2024 Bacteria identified in Urine by Culture URINE CULTURE Microbiology Routine Recurrent UTI Once per month for 12 Occurrences starting 08/25/2023 until 08/23/2024 [facility] Work Phone: Comment on above: Once per month for 12 Occurrences starti ng 08/25/2023 until 08/23/2024 Continuous pulse oximetry [facility] End: 12-22-2023 ECG COMPLETE ECG COMPLETE ECG Routine Preoperative examination Parastomal hernia without obstruction or gangrene 1 Occurrences starting 12/21/2022 until 12/22/2023 [facility] Work Phone: Comment on above: 1 Occurrences starting 12/21/2022 until 12/22/2023 ECG COMPLETE ECG COMPLETE ECG Routine Tachycardia 08/25/2023 10:30 AM EDT [facility] Work Phone: End: 03-29-2023 EMG(NEURO/NI) EMG(NEURO/NI) EMG Routine Ulnar neuropathy of both upper extremities 1 Occurrences starting 03/29/2022 until 03/29/2023 [facility] Work Phone: Comment on above: 1 Occurrences starting 03/29/2022 until 03/29/2023 Patient Education ED Feeding Tub e Replacement [facility] Work Phone: Patient referral [facility] Work Phone: Polysomnography [facility] REFER FOR ADMIT INTERVIEW REFER FOR ADMIT INTERVIEW Procedures Routine Preoperative examination Parastomal hernia without obstruction or gangrene Ordered: 12/21/2022 [facility] Work Phone: Comment on above: Ordered: 12/21/2022 UA DIP, URINE (POC) UA DIP, URIN E (POC) Lab Routine Screening for genitourinary condition 1 Occurrences starting 01/24/2025 [facility] Work Phone: Comment on above: 1 Occurrences starting 01/24/2025 URINALYSIS, REFLEX MICROSCOPIC URINALYSIS, REFLEX MICROSCOPIC Lab Routine Screening for genitourinary condition Ordered: 03/25/2022 [facility] Work Phone: Comment on above: Ordered: 03/25/2022 URINALYSIS, REFLEX MICROSCOPIC URINALYSIS, REFLEX MICROSCOPIC Lab Routine Screening for genitourinary condition Ordered: 04/17/2023 [facility] Work Phone: Comment on above: Ordered: 04/17/2023 URINALYSIS, REFLEX MICROSCOPIC URINALYSIS, REFLEX MICROSCOPIC Lab Routine Screening for genitourinary condition Ordered: 08/25/2023 [facility] Work Phone: Comment on above: Ordered: 08/25/2023 URINALYSIS, REFLEX MICROSCOPIC URINALYSIS, REFLEX MICROSCOPIC Lab Routine Screening for genitourinary condition Ordered: 01/26/2024 [facility] Work Phone: Comment on above: Ordered: 01/26/2024 End: 02-02-2025 US Kidney - bilateral and Urinary bladder US KIDNEY/BLADDER Radiology Routine Neurogenic bladder 1 Occurrences starting 01/04/2024 until 02/02/2025 [facility] Work Phone: Comment on above: 1 Occurrences starting 01/04/2024 until 02/02/2025 [facility] Immunizations Immunization Date Immunization Notes Care Provider Fa andres 03-18-2022 COVID-19 vaccine, fu ll dose (MODERNA); Translations: [Moderna COVID-19 Vaccine] Us 2 [facility] Work Phone: 08-10-2021 influenza, injectabl e, quadrivalent, contains preservative; Translations: [Fluarix PF Quadrivalent ] NIKITA GRAMAJO DO [facility] 08-10-2021 COVID-19 vaccine, fu ll dose (MODERNA); Translations: [Moderna COVID-19 Vaccine] Us 2 [facility] Work Phone: 08-10-2021 influenza, injectabl e, quadrivalent, preservative free Us 2 [facility] Work Phone: 08-10-2021 influenza virus vacc ine, unspecified formulation Nikita Gauthier MD Work Phone: [facility] 12-30-2020 COVID-19 vaccine, fu ll dose (MODERNA) Us 2 [facility] Work Phone: Comment on above: Result Comment: 2021: [id number] 12-03-2020 COVID-19 vaccine, fu ll dose (MODERNA) Us 2 [facility] Work Phone: 09-19-2018 influenza, injectabl e, quadrivalent, preservative free [facility] 09-19-2018 influenza, seasonal, injectable Dr. Omi Adams Work Phone: [facility] 09-19-2018 influenza, seasonal, injectable, preservative free 2 [facility] Work Phone: 07-19-2016 meningococcal oligosaccharide (groups A, C, Y and W-135) diphtheria toxoid conjugate vaccine (MCV4O) Us 2 [facility] Work Phone: 07-19-2016 meningococcal polysaccharide (groups A, C, Y and W-135) diphtheria toxoid conjugate vaccine (MCV4P) NIKITA GRAMAJO DO [facility] 07-02-2010 tetanus toxoid, redu zacarias diphtheria toxoid, and acellular pertussis vaccine, adsorbed Us 2 [facility] Work Phone: 08-26-2009 novel influenza-H1N1 -09, preservative-free, injectable Us 2 [facility] Work Phone: 06-07-2003 diphtheria, tetanus toxoids and acellular pertussis vaccine, unspecified formulation Us 2 [facility] Work Phone: 06-07-2003 measles, mumps and rubella virus vaccine Us 2 [facility] Work Phone: 06-07-2003 measles/mumps/rubell a virus vaccine NIKITA ALVAREZFLEX DO [facility] 06-07-2003 trivalent poliovirus vaccine, live, oral Us 2 [facility] Work Phone: 05-18-1999 diphtheria, tetanus toxoids and acellular pertussis vaccine, unspecified formulation Us 2 [facility] Work Phone: 05-18-1999 haemophilus influenz ae type b vaccine, PRP-T conjugate Us 2 [facility] Work Phone: 05-18-1999 trivalent poliovirus vaccine, live, oral Us 2 [facility] Work Phone: 10-08-1998 diphtheria, tetanus toxoids and acellular pertussis vaccine, unspecified formulation Us 2 [facility] Work Phone: 10-08-1998 measles, mumps and rubella virus vaccine Us 2 [facility] Work Phone: 10-08-1998 measles/mumps/rubell a virus vaccine NIKITA GRAMAJO DO [facility] 03-03-1998 diphtheria, tetanus toxoids and acellular pertussis vaccine, unspecified formulation Us 2 [facility] Work Phone: 03-03-1998 haemophilus influenz ae type b vaccine, PRP-T conjugate Us 2 [facility] Work Phone: 03-03-1998 hepatitis B pediatri c vaccine NIKITA GRAMAJO DO [facility] 03-03-1998 hepatitis B vaccine, pediatric or pediatric/adolescent dosage Us 2 [facility] Work Phone: 1997 diphtheria, tetanus toxoids and acellular pertussis vaccine, unspecified formulation 2 [facility] Work Phone: 1997 trivalent poliovirus vaccine, live, oral Us 2 [facility] Work Phone: 1997 diphtheria, tetanus toxoids and acellular pertussis vaccine, unspecified formulation Us 2 [facility] Work Phone: 1997 haemophilus influenz ae type b vaccine, PRP-T conjugate Us 2 [facility] Work Phone: 1997 trivalent poliovirus vaccine, live, oral Us 2 [facility] Work Phone: 1997 hepatitis B pediatri c vaccine NIKITA [employer] [facility] 1997 hepatitis B vaccine, pediatric or pediatric/adolescent dosage Us 2 [facility] Work Phone: 1997 hepatitis B pediatri c vaccine NIKITA [employer] [facility] 1997 hepatitis B vaccine, pediatric or pediatric/adolescent dosage 2 [facility] Work Phone: NEGATED: Highlighted row has not occurred!01-09-2020 influenza, seasonal, injectable [address] Comment on above: Deferred: OTHER - In process of discharge Payers Date Payer Category Payer Self-pay [id number] 2023 Unknown [id number] 2023 Private Health Insurance [id number] 2022 Unknown [id number] 2022 Medicaid MEDICAID [facility] MEDICAID [id number] 2022-Present [phone] [address] [place] [address] Medicaid [id number] 2019 Unknown [facility] PPO [place] GENERIC [id number] 2019-Present [phone] [address] [place] [address] PPO [id number] 2019 Unknown [id number] 2018 Unknown [id number] 2016 Medicaid [id number] 2011 Medicaid [id number] 1997 Unknown [id number] 1997 Unknown [id number] 1997 Unknown [id number] 1997 Unknown [id number] 1997 Unknown [id number] 79 1997 Unknown [id number] 27 1997 Unknown [id number] 27 1997 Unknown [id number] 27 Unknown [id number] Unknown [id number] Social History Date Type Detail Facility Start: 12-18-2019 End: 02-20-2024 Tobacco smoking status NHIS Never smoked tobacco [facility] Start: 12-18-2019 End: 02-16-2023 Tobacco use and exposure Smokeless tobacco non-user [facility] Start: 1997 Sex Assigned At Male C [facility] Start: 03-15-2022 End: 08-01-2022 Exposure to SARS-CoV-2 (event) Not sure [facility] Work Phone: Start: 06-19-2022 End: 06-25-2022 Alcohol intake Current non-drinker of alcohol (finding) [facility] Start: 06-19-2022 End: 04-17-2023 Alcohol intake [facility] Start: 1997 Sex Assigned At Not on file A [facility] Start: 12-01-2022 End: 02-20-2024 Tobacco smoking status KSIS Unknown if ever smoked [facility] Start: 10-25-2018 None [facility] Start: 10-25-2018 With Family [facility] Start: 10-26-2018 Non-smoker [facility] Start: 02-16-2023 End: 02-02-2025 Alcohol intake Lifetime non-drinker (finding) [facility] Start: 03-16-2023 History SDOH Financial 5 [facility] Start: 03-16-2023 History SDOH Food Worry 1 [facility] Start: 03-16-2023 History SDOH Transpo rt Med 2 [facility] Start: 04-17-2023 End: 06-05-2023 Tobacco use panel [facility] How hard is it for y ou to pay for the very basics like food, housing, medical care, and heating Not hard at all [facility] (I/We) worried silviano er (my/our) food would run out before (I/we) got money to buy more. Never true [facility] In the past 12 month s, was there a time when you were not able to pay the mortgage or rent on time? No [facility] Start: 01-02-2020 Gender identity Identifies as male gender (finding) [facility] Start: 01-02-2020 Sexual orientation Heterosexual (mini ralph) [facility] Medical Equipment Procedure Code Equipment Code Equipment Original Text Equipment Identifier Dates Stent Expel Twis t-Loc 8fr Metal 22cm Nephroureteral Internal External - [id number] Start: 01-03-2020 Arth Hip Pushloc k 2.9x12.5 [id number])N/A, [id number] FDA Start: 05-16-2019 Stplr Ирина 80mm [id number] Start: 01-29-2019 Clip Liga Med/Lg [id number])N/A, [id number] FDA Start: 05-16-2019 Mesh Soft Prolen e 50x50 Cm - [id number] Start: 03-14-2023 Tube Lele Secur-L ok 20fr White Silicone Gastrostomy Medication Port - [id number] Start: 03-14-2023 Mesh Vicryl Flat Polyglactin 910 Woven [id number] Surgical Knit Hernia Repair - [id number] Start: 03-14-2023 Mesh Soft Prolen e 50x50 Cm - [id number] Start: 03-14-2023 Mesh Vicryl Flat Polyglactin 910 Woven [id number] Surgical Knit Hernia Repair - [id number] Start: 03-14-2023 Functional Status Date Assessment Result Facility 03-25-2023 Are you deaf, or do you have serious difficulty hearing No 03/25/2023 12:44 PM Alyce Syed RN No [facility] 03-25-2023 Are you blind, or do you have serious difficulty seeing, even when wearing glasses No 03/25/2023 12:44 PM Alyce Syed, RN No [facility] 03-25-2023 Do you have serious difficulty walking or climbing stairs Yes 03/25/2023 12:44 PM Alyce Syed, BRUCE Yes [facility] 03-25-2023 Do you have difficul ty dressing or bathing Yes 03/25/2023 12:44 PM EDT Alyce Griffith RN Yes [facility] 03-25-2023 Because of a physica l, mental, or emotional condition, do you have difficulty doing errands alone such as visiting a physician's office or shopping Yes 03/25/2023 12:44 PM EDT Alyce Griffith, RN Yes [facility] Mental Status Date Assessment Result Facility 02-20-2024 Cognitive function Level Of Cons ciousness Awake;Alert;Appropriate [facility] Work Phone: 03-25-2023 Because of a physica l, mental, or emotional condition, do you have serious difficulty concentrating, remembering, or making decisions No 03/25/2023 12:44 PM EDT Alyce Griffith RN No [facility] Clinical Notes 01-04-2020 to 05-01-2025 Telephone Encounter - Inga Astudillo RN - 05/01/2025 12:32 PM EDTTelephone Encounter - Inga Astudillo RN - 05/01/2025 12:32 PM EDT Note Date & Type Note Facility 05-01-2025 Telephone encount er Note Faxed catheter order and supporting documentation to [facility]. [facility] 05-01-2025 Miscellaneous Notes Formattin g of this note might be different from the original. Faxed catheter order and supporting documentation to [facility]. documented in this encounter [facility] 02-27-2025 Evaluation note Diagnosis Onset Date Resolution Depression acute February 27, 2025 2:47pm Chronic respiratory failure with hypoxia and hypercapnia chronic February 27, 2025 2: 47pm Neuromuscular respiratory weakness chronic February 27 2:47pm Spina bifida chronic February 27 2:47pm Chronic respiratory failure with hypoxia and hypercapnia chronic June 05 2:55pm Neuromuscular respiratory weakness chronic May 2:55pm Spina bifida chronic June 05, 2025 2:55pm [facility] Work Phone: [phone] Telephone encounter Note* Telephone Encounter - Nikita Gauthier MD - 01/27/2025 2:57 PM EDT Form completed, signed, and placed in outbox. [facility]04-07-2025 Note* Addendum Note - Nikita Gauthier MD - 01/27/2025 2:57 PM EDTAddended by: NIKITA GAUTHIER on: 01/27/2025 02:57 PM Modules accepted: Orders [facility]04-07-2025 Miscellaneous Notes* Telephone Encounter - Nikita Gauthier MD - 01/27/2025 2:57 PM EDT Form completed, signed, and placed in outbox. * Addendum Note - Nikita Gauthier MD - 01/27/2025 2:57 PM EDTAddended by: NIKITA GAUTHIER on: 01/27/2025 02:57 PM Modules accepted: Orders * Telephone Encounter - Yasmeen Henderson MA - 01/27/2025 12:16 PM EDT Received forms and placed in in basket for signature [facility] Telephone encounter Note * Telephone Encounter - Yasmeen Henderson MA - 01/27/2025 12:16 PM EDT Received forms and placed in in basket for signature [facility]04-04-2025 History of Present illness Narrative* Wilfrido Schwartz RT(R) - 01/24/2025 1:00 PM EDT Radiology Service Progress Note PATIENT NAME: Marcos Aguirre DATE OF SERVICE: January 24, 2025 TIME: 1:47 PM PATIENT IDENTITY VERIFICATION COMPLETED USING TWO (2) IDENTIFIERS: Name and Date of confirmedby patient verbally. FALL SCREENING: Has the patient had 2 falls in the last year or 1 fall with injury or currently using an Ambulatory Assistive Device (Walker, Cane, Wheelchair, Crutches, etc.)? Yes, Patient High Riskfor Falls What interventions were put in place to prevent falls during this visit? [place] Risk Wristband Applied, Instructed Patient to Call for Help if Needed, Offered Assistance with Transfers/Clothing, Instructed Patient to Remain Seated (Not on Exam Table) Until Exam, and Increased Observations by Caregivers PATIENT GENDER DATA: Assigned male at PATIENT RELEVANT IMPLANT DATA REVIEWED: Not Applicable PATIENT PRESENTS WITH AN IMPLANTABLE OR ATTACHED FLIGHT CONTROL SPECIALIST: No RADIOLOGY DEPARTMENT: Ultrasound PERIPHERAL IV DATA: Not applicable SIGNED BY: RT Laurel(R) January 24, 2025 1:47 PM documented in this encounterAult[facility] Hospital04-04-2025 Instructions* Patient Instructions* Mando Gibbs MD - 01/24/2025 12:38 PM EDT Wheelchair modifications to current chair Wheelchair Clinic for new power assist wheelchair F/U in 1 year or prn documented in this encounterAultman Hospital04-04-2025 History of Present illness Narrative* Mando Gibbs MD - 01/24/2025 10:41 AM EDT Images from the original note were not included. PM&R/SCI Medicine Attending Outpatient Note Name: Marcos Aguirre [id number] Date of Service: 01/24/25 Last seen: 01/26/24 Chief complaint: My current wheelchair was purchased in March of 2020 and multiple systems are breaking down. The lateral supports are falling apart, The comfort inception cushion is compressing down,the foot rests have sharp edges and are tearing up pardo, the front casters are worn, the head restis breaking down and the emotion remote controller is falling apart and have it taped together. 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 Medications: Current Outpatient Medications on File Prior to Visit Medication Sig CARTIA XT 120 mg 24 hr capsule Take 1 capsule by mouth every afternoon. Nut.Tx.Impaired Dige Fxn-Fiber (VITAL 1.0 SHINE) 0.04 gram- 1 kcal/mL liqd Infuse 5 cartons Vital 1.0or equivalent peptide based formula at 85 ml/hr for 14 hours via Inifinity pump. Flush tube wit 60 ml before starting tube feed and 60 ml after tube feeding completed No current facility-administered medications on file prior to visit. ROS copied from previous note and updated as needed. He is living with family His PCP is Dr Nikita Gramajo IV, DO His sleep is ok with. Has sleep apnea on bipap with 3 liters His Pain. = 0 He has no depression He has no signs or sx of respiratory dysfunction. His spasticity is occ present but not consistent issue His skin is itact except midline spot on back He has (-) hx of DVT/PE. His sensation is stable His strength is table He has no edema He is continent of bladder with metrofanodff with indwelling catheter and changed daily He had 1 bladder infections in 2023 He has xxx Urologist He follows with xxx He has a history of Bladder/Kidney stones. Her Bladder/Kidney US on 03/25/22 revealed Nondiagnostic evaluation of LEFT kidney. No hydronephrosisin RIGHT kidney. He is continent of bowels with colostomy His Dexa Scan was never He is independent with eating. He is independent with grooming. He is independent with upper extremity dressing He is dependent with Lower extremity dressing He is dependent with cooking and cleaning. He is dependent with bowel management. He is dependent with bladder management. He is dependent with bed mobility. He is dependent with transfers. Track ceiling lift He doesn't stand, walk or do steps He is independent with wheelchair mobility He has a power assist wheelchair with emotion wheels and Comfort Inception cushion . [employer] is motion mobility Date getting chair [address] Objective Physical Exam: Weight 101, Height 5'1 General: cooperative BACK: scoliosis EXT: (-) peripheral edema, Neurologic: A&O x 3. Sensory exam: See E- ISNCSCI Motor Exam: See E- ISNCSCI 11- Element Power Mobility Device Order 1 Beneficiary's name Marcos Aguirre : 1995 2 Description of the item that is too ordered. This may be general-e.g., power operated vehicle (POV), power wheelchair, or power mobility device - or may be more specific. Power-assist wheelchair 3 Date of completion of the duon-hc-myie examination 01/24/25 4 Pertinent diagnosis/conditions that relate to the need for the POV or power wheelchair T2 Paraplegia Myelomeningocele s/p repair Hydrocephalus s/p shunt Arnold Chiari Malformation Tethered Cord Syndrome s/p release Scoliosis s/p stabilization Hip Dysplasia 5 Related diagnoses: Neurogenic Bladder Neurogenic Bowel 5 Length of need Lifetime 6 History: how long condition present, progression, past interventions that have been tried, and past use of any mobility devices: Paraplegia at 7 Physical Exam: height 5'1 weight 101 lbs The sensory examination to pin was intact to pin and touch to T5 on right and T2 on left and absentbelow The LOGAN Motor exam [place] the [place] [id number] and on the left [id number] 8 Why can't patient safely use a wheelchair, cane or walker? T2 Paraplegia Myelomeningocele s/p repair Hydrocephalus s/p shunt Arnold Chiari Malformation Tethered Cord Syndrome s/p release Scoliosis s/p stabilization Hip Dysplasia 9 Functional Assessment: He is independent with eating. He is independent with grooming. He is independent with upper extremity dressing He is dependent with Lower extremity dressing He is dependent with cooking and cleaning. He is dependent with bowel management. He is dependent with bladder management. He is dependent with bed mobility. He is dependent with transfers. Track ceiling lift He doesn't stand, walk or do steps He is independent with power assist wheelchair mobility 10 Physician's signature and date Kang Gibbs MD 01/24/25 11 Physician's NPI number [id number] Assessment T2 Paraplegia neurologically stable Neurogenic Bladder Neurogenic Bowel Myelomeningocele s/p repair Hydrocephalus s/p shunt Arnold Chiari Malformation Tethered Cord Syndrome s/p release Scoliosis s/p stabilization Hip Dysplasia Right hip disarticulation Wheelchair needs ODRS = 0 and I have no concerns 20 minutes was taken to review records, history, examine patient, review films and formulate a management Plan Wheelchair modifications to current chair Wheelchair Clinic for new power assist wheelchair F/U in 1 year or prn Mando Gibbs MD Spinal Cord Injury Medicine Attending Physical Medicine & Rehabilitation [phone] documented in this encounterAultman Hospital04-04-2025 History of Present illness Narrative* Kelsie Giraldo MD - 01/24/2025 9:49 AM EDT The patient is a 29-year-old male with a history of spina bifida, presenting for follow-up. HPI: The patient was last seen on 01/26/2024. He underwent takedown and revision of his metoprolol with a complex abdominal wall repair by Dr. Dowd in 2022. At the time of the last visit, he was changing his 14 Croatian catheter daily and keeping it indwelling. He was also receiving tube feedings fornutrition and had experienced weight loss. He had one interval UTI at that time. There has been no interval imaging in the system since the last visit. The patient reports a recent onset of pharyngitis, initially resembling a cold and now presenting as a sinus infection. He had a slight fever of 99 F when the symptoms started last Monday. He has not been tested for COVID-19. He reports a cough that is not as severe as it initially was. The patient's mother mentions that the symptoms could be related to seasonal allergies, as they had the window s open recently. The patient continues to use a catheter without a balloon and reports no issues with supplies, although they are only receiving two drainage bags instead of the four they need. The patient's mother tries to wash the bags as much as possible but notes that they can get crusty. She inquires about using a brush to clean the tubing and mentions that she does not usually use bleach. The patient had a hernia with an ulcer on the bottom, which has been healing well. He has not had any recent UTIs but did experience hematuria about two weeks ago, which may have been due to a traumatic catheterization. The hematuria lasted longer than usual, and the urine was cloudy for a while but has since improved. The patient drinks about half a bottle of water while at work. 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 He leaves for work at 0800 and returns home by 1400, with about an hour of travel time each day. PAST MEDICAL HISTORY Diagnosis Date Sleep apnea Spina bifida (HCC) PAST SURGICAL HISTORY Procedure Laterality Date MIDLINE INSERTION/CONSULT 01/06/2020 PAST SURGICAL HISTORY OF transverse colostomy PICC LINE INSERT/CONSULT 01/09/2020 Current Outpatient Medications on File Prior to Visit Medication Sig LELE-SAHNI GASTROSTOMY TUBE Change 12F-4.0mm gastrostomy tube button every 3 months. Dispense 2 so patent can have a backup at home for emergency use. MEDICAL SUPPLY Lubrication jelly [id number] (1 box every 3 months) Bed pads [id number] MEDICAL SUPPLY Feed bags INF 1200-E (30 per month) Feed ext tube [id number] (4 per month) G-tubebutton 20F 4.0cm (2 per year) 2x2 split sponges 16-2966 (1 box per month) 2 paper tape 1530-2 (1 box every 6 months) 4x4 drain sponges 7088 (1 box per 12 months) MEDICAL SUPPLY Overnight gravity urine bags (4 per month) 14F male straight Covian latex free ([id number]) 1 box per month Prevail diapers - size medium (PFO12/2 1 per day - 30 per month MEDICAL SUPPLY 2 skin barrier rings [id number] (1 box every 2 months) Adapt adhesive remover wipes 1560 (1 box every 2 months) Obdulia colostomy bag 8901(1 box per month) Hy-tape 1/2x5 yards 105LF (1 roll every 6 months) CARTIA XT 120 mg 24 hr capsule Take 1 capsule by mouth every afternoon. Nut.Tx.Impaired Dige Fxn-Fiber (VITAL 1.0 SHINE) 0.04 gram- 1 kcal/mL liqd Infuse 5 cartons Vital 1.0or equivalent peptide based formula at 85 ml/hr for 14 hours via Inifinity pump. Flush tube wit 60 ml before starting tube feed and 60 ml after tube feeding completed No current facility-administered medications on file prior to visit. ROS: Constitutional: positive URI/sinusitis X 1 week Gastrointestinal: negative PHYSICAL EXAM: In chair, NAD Abd looks good, skin intact Cath in channel, draining pretty clear urine with some mucous The patient consented to the use of [employer] software for draft documentation of the visit consistent with [facility] Notice of Privacy Practices. A/P: 1. Spina bifida with hydrocephalus, unspecified spinal region (HCC) (Q05.4) Patient has a history of spina bifida with hydrocephalus. Currently managing with daily 14 Croatian catheter changes without balloon inflation. No recent urinary tract infections reported. Patient is maintaining nutritional intake via tube feeds. Has augmentation cystoplasty which they keep to continous drainage with indwelling wade placed daily. Working for them - Continue current catheterization technique. - Advised on cleaning catheter bags with a diluted bleach solution to reduce bacterial growth. - Increase oral fluid intake to two full containers daily to ensure adequate hydration. - Scheduled renal ultrasound and laboratory tests today to monitor renal function and urinary tractstatus. - Follow-up in one year unless test results indicate the need for earlier intervention. - Will send a detailed report to primary care physician Dr. Loera and provide a copy to the patient. 2. Cloudy urine (R82.90) Intermittent hematuria and cloudy urine observed, possibly related to traumatic catheterization. Symptoms have improved recently. - Monitor urine clarity and report any persistent changes. - Reinforced the importance of adequate hydration to prevent urinary stasis and potential infections. 3. Sinusitis, unspecified chronicity, unspecified location (J32.9) Recent onset of sinusitis symptoms, including sore throat and mild fever (99 F). No COVID-19 testing performed. Symptoms may be related to seasonal allergies. - Recommended use of Flonase nasal spray to alleviate sinus congestion. - Advised keeping windows closed to minimize allergen exposure. - Monitor symptoms and seek further evaluation if no improvement is noted. Kelsie Giraldo MD documented in this encounterAultman Hospital04-04-2025 History of Present illness Narrative* Nikita Gauthier MD - 01/24/2025 8:57 AM EDT Spina Bifida Multidisciplinary Clinic Internal Medicine HPI: Marcos Aguirre is a 29 year old male who presents for spina bifida multidisciplinary clinic. Here with mom and dad. PCP: Nikita Gramajo IV, History of spina bifida with history of hydrocephalus and SPRAY PILOT shunt. Underwent open hernia repair with colostomy revision on 03/14/23. Colostomy and g-tube placed 01/29/19. Following with nutrition for management of tube feeds. Sore Throat and Sinus Pain: - Sore throat and sinus pain x2 days. - Recent fever, resolved over the past two days. - Taking ibuprofen, generic allergy medication, and Zicam. - Denies dyspnea or chest pain. - Believes symptoms are improving. Feeding: - Managed with G-tube feedings: 85 mL/hr, totaling 1000 mL overnight. - Oral intake during the day; occasional emesis post-oral intake. - Parents request a script for Vital 1.0 to be faxed to [facility]. Physical Exam BP 125/87 Pulse 82 Physical Exam HENT: Right Ear: External ear normal. Left Ear: External ear normal. Mouth/Throat: Mouth: Mucous membranes are moist. Cardiovascular: Rate and Rhythm: Normal rate. Pulmonary: Effort: Pulmonary effort is normal. No respiratory distress. Breath sounds: Normal breath sounds. No wheezing or rales. Neurological: Mental Status: He is alert. Assessment and Plan Encounter Diagnosis ICD-10-CM 1. Spina bifida, unspecified hydrocephalus presence, unspecified spinal region (HCC) Q05.9 HEPATIC FUNCTION PNL 2. G tube feedings (HCC) Z93.1 MAGNESIUM 3. Viral URI J06.9 4. Screening for lipoid disorders Z13.220 LIPID PANEL, FASTING 5. Screening for iron deficiency anemia Z13.0 COMPLETE BLOOD COUNT AND DIFFERENTIAL FERRITIN 6. Vitamin D deficiency E55.9 VITAMIN D 25 HYDROXY 1. Spina bifida, unspecified hydrocephalus presence, unspecified spinal region (HCC) (Q05.9) 2. G tube feedings (HCC) (Z93.1) - Current regimen is 85 mL/hr, delivering approximately 1000 mL overnight; no bolus feeds during the day. - Patient tolerates oral intake during the day but experiences occasional emesis. - Will fax a script for Vital 1.0 to [facility] on Monday. 3. Viral URI (J06.9) - Symptoms include sore throat, facial pain, and fever; no dyspnea or chest pain. - Physical exam reveals clear lung sounds and no significant oropharyngeal findings. - Condition is improving; recommend symptomatic treatment with ibuprofen and antihistamines. - Advised against antibiotic use, as symptoms are consistent with a viral etiology. 4. Screening for lipoid disorders (Z13.220) 5. Screening for iron deficiency anemia (Z13.0) 6. Vitamin D deficiency (E55.9) The patient consented to the use of LiveOnDem[employer] software for draft documentation of the visit consistent with [facility] Notice of Privacy Practices. Nikita Gauthier MD Staff Physician Clinical Clinical Physician Assistantlawn mower mechanic Internal Medicine Pediatrics [address] [place] [address] Office: documented in this encounterAultman Hospital10-14-2024 Note* Exam Date Time Procedure Performing Provider Status 08/05/24 4:26 PM Echocardiogram, Adult - CV Auth (Verified) [facility] 09-05-2024 Telephone encounter Note* Telephone Encounter - Dank Richey RN - 06/27/2024 2:39 PM EDTSummary: catheter orders for [facility] Images from the original note were not included. Hi, Found the order they were looking for, completed it and faxed it back. Now you have it too, and I have all the specific products you need. Let me know if there is anything else we need to do. [facility] [phone] #1 #2 Fx [phone] [facility] Work Phone: 1(550) 881-161409-05-2024 Miscellaneous Notes* Telephone Encounter - Dank Richey RN - 06/27/2024 2:39 PM EDTSummary: catheter orders for [facility] Images from the original note were not included. Hi, Found the order they were looking for, completed it and faxed it back. Now you have it too, and I have all the specific products you need. Let me know if there is anything else we need to do. [facility] [phone] #1 #2 Fx [phone] documented in this encounterAultman Hospital05-16-2024 Telephone encounter Note * Telephone Encounter - Shyanne Bledsoe MA - 03/07/2024 1:50 PM EDT Form and script faxed. Shyanne Bledsoe MA March 07, 2024 1:50 PM [facility] Miscellaneous Notes* Telephone Encounter - Shyanne Bledsoe MA - 03/07/2024 1:50 PM EDT Form and script faxed. Shyanne Bledsoe MA March 07, 2024 1:50 PM * Telephone Encounter - Nikita Gauthier MD - 03/06/2024 8:52 PM EDT Form completed, signed, placed in outbox, please fax. Also included an RX for lele-sahni buttons. * Telephone Encounter - Shyanne Bledsoe MA - 02/29/2024 10:18 AM EDT Form f'wd to Dr.'s sexton for signature. Shyanne Bledsoe MA February 29, 2024 10:18 AM * Telephone Encounter - Adeola Iglesias - 02/23/2024 3:06 PM EDT Patient has been identified by name and date of : Yes Type of form: Home Care forms Form received via: Fax When form is completed, fax form to fax number provided. Form has been forwarded to: Provider's mailbox. Provider name: Dr. Abrahan Iglesias documented in this encounterAultman Hospital05-15-2024 Telephone encounter Note * Telephone Encounter - Nikita Gauthier MD - 03/06/2024 8:52 PM EDT Form completed, signed, placed in outbox, please fax. Also included an RX for lele-sahni buttons. [facility]-09-[facility] Telephone encounter Note* Telephone Encounter - Shyanne Bledsoe MA - 02/29/2024 10:18 AM EDT Form f'wd to Dr.'s sexton for signature. Shyanne Bledsoe MA February 29, 2024 10:18 AM [facility]-03-[facility] Telephone encounter Note* Telephone Encounter - Adeola Iglesias - 02/23/2024 3:06 PM EDT Patient has been identified by name and date of : Yes Type of form: Home Care forms Form received via: Fax When form is completed, fax form to fax number provided. Form has been forwarded to: Provider's mailbox. Provider name: Dr. Abrahan Iglesias [facility]04-30-[facility]24 Discharge summary Author Joseph Rios [facility] February 20, 2024 9:34pm Note Date/Time February 20, 2024 8:4 5pm [facility] Medical Records Department [address] [place] [address] Emergency Department Summary 02/20/24 MR#: [id number] Acct: [id number] Name: MARCOS AGUIRRE Rep #:[id number] : 1995 28 From: Joseph Riso MD PCP: Dr. Nikita Gramajo, DO Status:REG ER Location: ED HPI History of Present Illness Chief Complaint: Other, Pain/Inj Detail of Chief Complaint: Patient presents because G-tube fell out. Informant: patient and parent Onset/Context/Timing Onset: Today Worsened by: Not applicable Relieved by: Not applicable Associated Symptoms Associated Symptoms: None Narrative Narrative: Patient is a 28-year-old male with history of spina bifida. He has no sensationfrom nipples down. G-tube fell out. Unknown what time it fell out. Parents attempted to place a new PEG tube without success. 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 Home Medications ipratropium bromide 21 mcg (0.03 %) nasal spray 2 spray intranasal ONCE PRN allergy symptoms #30 mL 02/09/23 [Rx Last Taken Unknown] nut.tx impaired digestive fxn-fiber 0.07 gram-1.5 kcal/mL oral liquid (Vital Peptide 1.5 Shine) ml PO 12/01/22 [History Last Taken Unknown] oxybutynin chloride 10 mg tablet,extended release 24 hr 10 mg PO DAILY 12/01/22 [History Last Taken Unknown] Allergy/AdvReac Type Severity Reaction Status Date / Time bacitracin Allergy Mild unknown Verified 02/20/24 20:22 latex Allergy Unknown Verified 02/20/24 20:22 levofloxacin [Levofloxacin] Allergy Rash Verified 02/20/24 20:22 sulfamethoxazole Allergy Rash Verified 02/20/24 20:22 [From Bactrim] trimethoprim [From Bactrim] Allergy Rash Verified 02/20/24 20:22 Social History Smoking Status: Never smoker ROS ROS ED Constitutional Constitutional ED: Denies chills or fever(s) Cardiovascular Cardiovascular: Reports chest pain Respiratory/Chest Respiratory/Chest: Reports dyspnea Gastrointestinal Gastrointestinal: Denies abdominal pain or vomiting EXAM Physical Exam Const Vital Signs: 02/20/24 20:22 02/20/24 20:43 Temperature 96.8 F L Temperature Source Temporal Pulse Rate 82 Respiratory Rate 16 Respiratory Effort Normal Respiratory Pattern Normal Blood Pressure 122/85 H Blood Pressure Mean 97 Pulse Ox 96 Positive well nourished and well developed General Appearance ED: well developed and NAD HEENT Reports moist mucous membranes HEENT Narrative: Head is atraumatic normocephalic Eyes PERRL and EOMs intact bilaterally Resp normal respiratory effort Cardio regular rate and regular rhythm GI normal to inspection, nondistended, normoactive bowel sounds, non-tender, non-distended and no masses; Negative for hepatosplenomegaly GI Narrative: Opening for G-tube appears to be closed. Nurse was asked to contact road gang supervisor to get urethral sounds from the OR. Auscultation: hypoactive bowel sounds Palpation: soft Extremity Extremity Narrative: Deformity of lower extremity exam spina bifida Neuro oriented x3 and CN's II-XII intact bilaterally Psych mental status grossly normal Skin no rashes or lesions noted and no wounds General Skin Exam: Negative for jaundice MDM MDM MDM Narrative Medical decision making narrative: Feeding tube fell out. Will attempt to dilate opening and place new tube otherwise will contact GI. Procedures Other Procedures Procedure(s): Button tube tract was dilated using urethral sounds. Initially a 12 Croatian was placed. Dilated up to 16. The gastric feeding button was placed without difficulty. The balloon was inflated. Traction was placed and tube remained in place. Discharge Plan Triage Chief Complaint: Other, Pain/Inj ED Provider: Joseph Rios Dx/Rx/DC Orders Clinical Impression: Visit for feeding tube placement, Spina bifida Instructions: ED Feeding Tube Replacement Prescriptions: No Action Vital Peptide 1.5 Shine 0.07 gram- 1.5 kcal/mL liquid PO oxybutynin chloride 10 mg tablet extended release 24hr 10 mg PO DAILY ipratropium bromide 21 mcg (0.03 %) spray,non-aerosol 2 spray intranasal ONCE PRN (Reason: allergy symptoms) Qty: 30 2RF Rx Instructions: administer into each nostril Primary Care Provider: Nikita Gramajo Referrals: Nikita Gramajo DO [Primary Care Provider] - As Needed Disposition Disposition: Home, Self Care What to do if you have Problems For any increased pain, shortness of breath, bleeding, nausea or vomiting, chestpain, or any unexpected problems, contact your Primary Care Provider. Call [facility] ([phone]) or report to the closest Emergency Room. Call 911 if necessary. 02/20/242133 <Electronically signed by Joseph Rios MD> Cosigner Signature (if applicable): CC: Dr. Nikita Gramajo DO ~ Signed [facility] Work Phone: 1(943) 281-923604-22-2024 History of Present illness Narrative* Sabiha Mcarthur APRN.CNP - 02/12/2024 2:44 PM EDT Signed pended order for medical supplies from [employer]. Gave signed paper prescription to [facility]. Sabiha Mcarthur APRN.[employer] ARCHITECT documented in this encounterAultman Hospital04-08-2024 Instructions* Patient Instructions* Mando Gibbs MD - 01/29/2024 8:05 AM EDT Plastic Surgery referral to assess left midline wound (present since 2018) for surgical management versus silver nitrate F/U as needed documented in this encounterAultman Hospital04-05-2024 History of Present illness Narrative* Nikita Gauthier MD - 01/26/2024 10:06 AM EDT Spina Bifida [facility]idisciplinary Clinic Internal Medicine HPI: Marcos Aguirre is a 28 year old male who presents for spina bifida multidisciplinary clinic. Here with his parents. PCP: Dr. Gramajo. History of spina bifida with history of hydrocephalus and SPRAY PILOT shunt. Underwent open hernia repair with colostomy revision on 03/14/23. Colostomy and g-tube placed 01/29/19. Following with nutrition for management of tube feeds. Physical Exam 01/26/24 BP 132/85 Pulse 75 Physical Exam HENT: Right Ear: External ear normal. Left Ear: External ear normal. Mouth/Throat: Mouth: Mucous membranes are moist. Eyes: Conjunctiva/sclera: Conjunctivae normal. Cardiovascular: Rate and Rhythm: Normal rate. Pulmonary: Effort: Pulmonary effort is normal. Neurological: Mental Status: He is alert. Mental status is at baseline. Assessment and Plan Encounter Diagnosis ICD-10-CM 1. Spina bifida, unspecified hydrocephalus presence, unspecified spinal region (HCC) Q05.9 2. G tube feedings (HCC) Z93.1 HEPATIC FUNCTION PNL MAGNESIUM BLD PHOSPHORUS INORGANIC 3. Screening for lipoid disorders Z13.220 LIPID PANEL, NONFASTING CANCELED: LIPID PANEL BASIC 4. Screening for iron deficiency anemia Z13.0 CBC + DIFF FERRITIN BLD 5. Vitamin D deficiency E55.9 VITAMIN D 25 HYDROXY - Feeds pre nutrition. - Labs as ordered. Nikita Gauthier MD Staff Physician Clinical Clinical Physician Assistantlawn mower mechanic Internal Medicine Pediatrics [address] [place] [address] Office: documented in this encounterA[facility]04-[facility]24 History of Present illness Narrative* Mando Gibbs MD - 01/26/2024 9:50 AM EDT Images from the original note were not included. PM&R/SCI Medicine Attending Outpatient Note Name: Marcos Aguirre [id number] Date of Service: 01/26/24 Last seen: 08/25/23 Chief complaint: some persistent clear drainage midline and changes gauze every 2-3 days. Onset: 2019 Location: midline. 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 Medications: Current Outpatient Medications on File Prior to Visit Medication Sig CARTIA XT 120 mg 24 hr capsule Take 1 capsule by mouth every afternoon. Nut.Tx.Impaired Dige Fxn-Fiber (VITAL 1.0 SHINE) 0.04 gram- 1 kcal/mL liqd Infuse 5 cartons Vital 1.0or equivalent peptide based formula at 85 ml/hr for 14 hours via Inifinity pump. Flush tube wit 60 ml before starting tube feed and 60 ml after tube feeding completed No current facility-administered medications on file prior to visit. ROS He is living with family His PCP is Dr Nikita Gramajo IV, DO His sleep is ok with. Has sleep apnea on bipap with 3 liters His Pain. = 0 He has no depression He has no signs or sx of respiratory dysfunction. His spasticity is occ present but not consistent issue His skin is itact except midline spot on back He has (-) hx of DVT/PE. His sensation is stable His strength is table He has no edema He is continent of bladder with metrofanodff with indwelling catheter and changed daily He had 1 bladder infections in 2023 He has xxx Urologist He follows with xxx He has a history of Bladder/Kidney stones. Her Bladder/Kidney US on 03/25/22 revealed Nondiagnostic evaluation of LEFT kidney. No hydronephrosisin RIGHT kidney. He is continent of bowels with colostomy His Dexa Scan was never He is independent with eating. He is independent with grooming. He is independent with upper extremity dressing He is dependent with Lower extremity dressing He is dependent with cooking and cleaning. He is dependent with bowel management. He is dependent with bladder management. He is dependent with bed mobility. He is dependent with transfers. Track ceiling lift He doesn't stand, walk or do steps He is independent with wheelchair mobility He has a power assist wheelchair with emotion wheels and Comfort Inception cushion . [employer] is [employer] Date getting chair [address] Objective Physical Exam: General: cooperative BACK: 1x1cm shallow midline wound above pelvis. [place] granulation tissue EXT: Right hip disarticulation Neurologic: A&O x 3. Sensory exam: See E- ISNCSCI Motor Exam: See E- ISNCSCI Data Review Imagin03/22/23 CT Brain: Decompressed ventricular system with left parietal approach ventriculostomy catheter. Extensive chronic changes with marked overall volume loss, small vessel ischemic change, and severe posterior fossa volume loss. Assessment Chronic open draining midline wound in non-pressure point position T3 Paraplegia neurologically stable Neurogenic Bladder Neurogenic Bowel Myelomeningocele s/p repair Hydrocephalus s/p shunt Arnold Chiari Malformation Tethered Cord Syndrome s/p release Scoliosis s/p stabilization Hip Dysplasia Right hip disarticulation ODRS = 0 and I have no concerns 25 minutes was taken to review records, history, examine patient, review films and formulate a management Plan Plastic Surgery referral to assess left midline wound (present since 2018) for surgical management versus silver nitrate F/U as needed . Mando Gibbs MD Spinal Cord Injury Medicine Attending Physical Medicine & Rehabilitation [phone] documented in this encounterAultman Hospital04-05-2024 History of Present illness Narrative* Jeri Mehta PA-C - 01/26/2024 9:30 AM EDT This note was created using Bityotariter. Subjective Marcos Aguirre is a 28 year old male seen today via zoom to establish care for vp security shunt in setting of spina bifida. Hx congential hydrocephalus shunted since , no revisions after first year of life, left parietal VPS, non programmable valve, spina-bifida with severe scoliotic deformity (instrumented fusion ~ T10-L2 2007, [facility]'), wheelchair dependent, admitted last year to [facility] after elective G tube revision and abdominal wall reconstruction for hernias. Neurosurgery was consulted to rule out involvement of VPS in the context of uptrending post-operative leukocytosis. Pt was recommended outpatient follow up and was not able to make connection. He reports today and is experiencing a bit of an elevated heart rate. He spoke with his claim auditor and they put him on something to lower the HR a bit. He sometimes has a sherman that faint and times when it is painful. Sherman's have been going on since last year. Mom and dad state that he rarely reports a headache. They will keep note of this. Otherwise, he is at his baseline. Review of Systems Objective There were no vitals taken for this visit. 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 No related concerns today. CT brain from March 22, 2023 reviewed as well as the shunt series. No disconnection noted in his shunt tubing. CT brain shows well decompressed ventricles. Chronic overdrainage. Recommend routine follow up 1-2 years. Next imaging in 2025. CT brain and shunt series at that time. Pt and family understand and agree. I spent a total of 30 minutes on the date of the service which included preparing to see the patient, [id number] patient care, completing clinical documentation, obtaining and/or reviewing separately obtained history, counseling and educating the patient/family/caregiver, communicating with other HCPs (not separately reported), independently interpreting results (not separately reported), communicating results to the patient/family/caregiver, and care coordination (not separately reported). This virtual visit was conducted via [employer] which is a HIPAA compliant video platform. I received consent from the patient to perform the visit using this platform. The visit required patient-provider interaction for the medical decision making as documented herein. I have communicated my name and active licensure. The patient's identity and physical location wereverified at the time of this visit. Either the patient or their legal sales account representative has been informed of the risks and benefits of -- and alternatives to -- treatment through a remote evaluation andconsents to proceed with the evaluation remotely. documented in this encounterAultman Hospital04-05-2024 History of Present illness Narrative* Kelsei Giraldo MD - 01/26/2024 8:00 AM EDT HPI: Marcos Aguirre is a 28M, take down and revision of mitrofanoff continent urinary channel - complex ab wall repair and cholecystectomy by Dr. Dowd - colostomy take down and revision by Dr. Shore 03/21/23 CT - normal upper tracts 03/22/2023 shunt series: Limited examination. Prominent calcifications along the ventriculoperitoneal shunt catheter suggestit is long-standing or nonfunctional 03/22/2023 CT Brain: Decompressed ventricular system with left parietal approach ventriculostomy catheter. Extensive chronic changes with marked overall volume loss, small vessel ischemic change, and severeposterior fossa volume loss. Last seen by Dr. Giraldo on 08/25/2023. Recommending EKG for irreg heart rate on exam. (08/25/2023 - NSR) Today, here for SB clinic. Does Tube feeds for main nutrition and eats as well for pleasure. Lost some weight. Couple days ago86.5 lb. Prior to surgery at least 90 lb. Formulary changes in process. Little spot near prior flap is open with occas leakage. Providers locally not concerned. PCP put him on Cardia, now HR in the 60s -70s. Checks at home. Bladder management: 14F changes daily. No issues with insertion. 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 Denies infection since August 2023. S/S dark urine, felt crummy, n/v. Bowel Management: colostomy PAST MEDICAL HISTORY Diagnosis Date Sleep apnea Spina bifida (HCC) PAST SURGICAL HISTORY Procedure Laterality Date MIDLINE INSERTION/CONSULT 01/06/2020 PAST SURGICAL HISTORY OF transverse colostomy PICC LINE INSERT/CONSULT 01/09/2020 Social History Tobacco Use Smoking status: Never Smokeless tobacco: Never Vaping Use Vaping Use: Never used Substance Use Topics Alcohol use: Never Drug use: Never Current Outpatient Medications Medication Sig Dispense Refill CARTIA XT 120 mg 24 hr capsule Take 1 capsule by mouth every afternoon. Nut.Tx.Impaired Dige Fxn-Fiber (VITAL 1.0 SHINE) 0.04 gram- 1 kcal/mL liqd Infuse 5 cartons Vital 1.0or equivalent peptide based formula at 85 ml/hr for 14 hours via Inifinity pump. Flush tube wit 60 ml before starting tube feed and 60 ml after tube feeding completed 87027 mL 11 No current facility-administered medications for this visit. No current facility-administered medications on file prior to visit. ROS: Constitutional: negative Gastrointestinal: see HPI, recent about 4-5lb weight loss and incr tube feeds as a result PHYSICAL EXAM: There were no vitals taken for this visit. GENERAL: NAD in chair ABDOMEN: flat without recurrence of massive hernia, wade taped in place with clear UO GENITOURINARY: MALE EXAM: Not indicated DATA/OR LABS TO BE REVIEWED: (Simple=1 data point; Complex= 2 or more) No results found for: PSA Creatinine Date Value 03/25/2023 0.31 mg/dL 03/24/2023 0.31 mg/dL 03/23/2023 0.25 mg/dL 03/22/2023 0.22 mg/dL 03/21/2023 0.25 mg/dL 11/12/2021 0.36 mg/dL 01/13/2020 0.44 MG/DL 01/09/2020 0.32 mg/dL 01/08/2020 0.37 mg/dL 01/07/2020 0.48 mg/dL No results found for: TESTOST A/P: NGB 2/2 SB, doing fairly well with current regimen, one interval UTI - needs surv US and labs NGB- on TF, working with nutrition Kelsie Giraldo MD documented in this encounterAultman Hospital11-17-2023 Note. MICRO - Microbiology PROCEDURE: Urine Culture [*1] SOURCE: Urine, Clean Catch BODY SITE: COLLECTED DATE/TIME: 09/07/2023 16:47 EST RECEIVED DATE/TIME: 09/07/2023 19:30 EST START DATE/TIME: 09/07/2023 19:30 EST FREE TEXT SOURCE: FINAL REPORTS Final Report [] Verified Date/Time/Personnel: 09/08/2023 14:43 EST >100,000 cfu/ml Multiple bacterial morphotypes present. Probable Contamination. Suggest recollection if clinically indicated. Performing Locations *1: This test was performed at: [facility], [address] [place] [address], [id number] , Formerly [facility] ([place])08-28-2023 Instructions* Patient Instructions* Mando Gibbs MD - 08/28/2023 11:45 AM EST F/U in 1 yr or prn and monitor neurological exam with ISNCSCI exam documented in this encounterAultman Hospital11-06-2023 Miscellaneous Notes* Letter - Kelsie Giraldo MD - 08/28/2023 12:00 AM EST August 28, 2023 Nikita Gramajo IV, D.O. [address] [place] [address] NAME: MARCOS AGUIRRE CLINIC NO.: [id number] DATE OF SERVICE: 08/28/[address] Graamjo: Marcos Aguirre was seen in the Adult Spina Bifida Clinic today. He seems to be doing fairly well following his recovery from abdominal wall reconstruction; however, he had two complaints - one, he does have a baseline tachycardia with a rate that is sort of in the mid-80s to 90s. I did get an EKG today which demonstrated normal sinus rhythm. I am not sure if this warrants any further evaluation. In addition, Dr. Gibbs did a neuro exam on him and found that he had lost some sensation he had previously measured at level T3 and now today he is measuring T1. We plan to bring him back in [address] Gibbs clinic to reassess his level of lesion. If you have any questions or concerns, please do not hesitate to contact me. Sincerely yours, Kelsie Giraldo M.D. Date Dictated: 08/28/2023 Date Typed: [facility] 08/28/2023 JOB# [id number] Clinic note from myself and Dr. Gibbs dated August 25, 2023, labs from March 23, 2023, CT scan report from March 21, 2023. Please print up the EKG and send it to the actual tracing of the EKG to Dr. Gramajo. documented in this encounterAultman Hospital11-03-2023 History of Present illness Narrative* Mando Gibbs MD - 08/25/2023 9:25 AM EDT Images from the original note were not included. PM&R/SCI Medicine Attending Outpatient Note Name: Marcos Aguirre [id number] Date of Service: 08/25/23 Last seen 03/25/22 Chief complaint: No issues and doing quite well. 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 Nut.Tx.Impaired Dige Fxn-Fiber (VITAL PEPTIDE 1.5 SHINE) 0.07 gram- 1.5 kcal/mL liqd 574 mL by Nadia-Serenity once daily. No current facility-administered medications on file prior to visit. 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 Has sleep apnea on bipap with 3 liters His Pain. =0 He has no depression He has no signs or sx of respiratory dysfunction. His spasticity is occ present but not consistent issue His skin is itact He has (-) hx of DVT/PE. On xxx His sensation is stable His strength is table He has no edema He is continent of bladder with metrofanodff with catheter inserted. He had 0 bladder infections in 2022 He has xxx Urologist He follows with xxx He has a history of Bladder/Kidney stones. Her Bladder/Kidney US on 03/25/22 revealed Nondiagnostic evaluation of LEFT kidney. No hydronephrosisin RIGHT kidney. He is continent of bowels with colostomy His Dexa Scan was never He is independent with eating. He is independent with grooming. He is independent with upper extremity dressing He is dependent with Lower extremity dressing He is dependent with cooking and cleaning. He is dependent with bowel management. He is dependent with bladder management. He is dependent with bed mobility. He is dependent with transfers. Track ceiling lift He doesn't stand, walk or do steps He is independent with wheelchair mobility He has a power assist wheelchair with emotion wheels and Comfort Inception cushion . [employer] is [employer] Date getting chair [address] Objective Physical Exam: General: cooperative Neurologic: A&O x 3. Sensory exam: See E- ISNCSCI Motor Exam: See E- ISNCSCI DTRs: Right Left Biceps 2 3 Triceps 2 3 Hall Tromner Right + + Left + + Assessment T1 Paraplegia with reduction in sensory level from T3 to T1 dermatome but improvement in Intrinsic motor scores Neurogenic Bladder Neurogenic Bowel Myelomeningocele s/p repair Hydrocephalus s/p shunt Arnold Chiari Malformation Tethered Cord Syndrome s/p release Scoliosis s/p stabilization Hip Dysplasia ODRS = 0 and I have no concerns 25 minutes was taken to review records, history, examine patient, review films and formulate a management Plan F/U in 1 yr or prn and monitor neurological exam with ISNCSCI exam Mando Gibbs MD Spinal Cord Injury Medicine Attending Physical Medicine & Rehabilitation [phone] documented in this encounterAultman Hospital11-03-2023 History of Present illness Narrative* Kelsie Giraldo MD - 08/25/2023 8:00 AM EDT HPI: Marcos Aguirre is a 28M, take down and revision of mitrofanoff continent urinary channel - complex ab wall repair and cholecystectomy by Dr. Dowd - colostomy take down and revision by Dr. Shore 03/21/23 CT - normal upper tracts 03/22/2023 shunt series: Limited examination. Prominent calcifications along the ventriculoperitoneal shunt catheter suggestit is long-standing or nonfunctional 03/22/2023 CT Brain: Decompressed ventricular system with left parietal approach ventriculostomy catheter. Extensive chronic changes with marked overall volume loss, small vessel ischemic change, and severeposterior fossa volume loss. 03/23/23 - Cystatin C 0.71 04/17/2023, office visit with Dr. Giraldo for surgical follow up. At that time, he was taping a straight cath in, since intermittent catheterization wasn't working for his situation at home. He endorsed feeling better than ever tat that visit Interval Dr. Gauthier getting him set up with nutrition to assess G tube feeds. They express concern that his HR is 80-100 when he's resting, this has been ongoing since his surgery. Drinks more ice tea than he did years ago, but still only about 4 oz per day PAST MEDICAL HISTORY Diagnosis Date Sleep apnea Spina bifida (HCC) PAST SURGICAL HISTORY Procedure Laterality Date MIDLINE INSERTION/CONSULT 01/06/2020 PAST SURGICAL HISTORY OF transverse colostomy PICC LINE INSERT/CONSULT 01/09/2020 Social History Tobacco Use Smoking status: Never Smokeless tobacco: Never Vaping Use Vaping Use: Never used Substance Use Topics Alcohol use: Never Drug use: Never Current Outpatient Medications on File Prior to Visit Medication Sig Nut.Tx.Impaired Dige Fxn-Fiber (VITAL PEPTIDE 1.5 SHINE) 0.07 gram- 1.5 kcal/mL liqd 574 mL by Nadia-Nickyoute once daily. No current facility-administered medications on file prior to visit. ROS: Constitutional: feels good Gastrointestinal: starting new feeding regimen, awaiting nutirtion, more sediment in urine on new formula per mom PHYSICAL EXAM: There were no vitals taken for this visit. GENERAL: NAD in chair ABDOMEN: soft, incision totally healed, wade taped in. Adult diapers sz med 30 per month 14 F straight cath- needs 30 per month Wade drainage bags - needs 4 per month Feed bags 30 per month Extension tubes for feedbags to g tube 30 per month [facility] Obdulia colostomy bags from [employer]- uses 4-5 per month GENITOURINARY: MALE EXAM: Not indicated CARDIAC- he has HR around 84 today and it feels irreg on my exam today. DATA/OR LABS TO BE REVIEWED: (Simple=1 data point; Complex= 2 or more) No results found for: PSA Creatinine Date Value 03/25/2023 0.31 mg/dL 03/24/2023 0.31 mg/dL 03/23/2023 0.25 mg/dL 03/22/2023 0.22 mg/dL 03/21/2023 0.25 mg/dL 11/12/2021 0.36 mg/dL 01/13/2020 0.44 MG/DL 01/09/2020 0.32 mg/dL 01/08/2020 0.37 mg/dL 01/07/2020 0.48 mg/dL No results found for: TESTOST A/P: NGB with augmentation, channel, manages with indwelling cath, doing fine without interval infections. Imaging and labs this summer were fine Colostomy working ok, tube feeds per RTC for imaging and labs in February-March EKG for irreg heart rate on exam, tachycardia at baseline Kelsie Giraldo MD documented in this encounterAultman Hospital10-12-2023 Miscellaneous Notes* Telephone Encounter - Shyanne Bledsoe Ma - 08/03/2023 3:40 PM EDT Form faxed. Shyanne Bledsoe Ma August 03, 2023 3:40 PM * Telephone Encounter - Nikita Gauthier MD - 08/01/2023 5:44 PM EDT Form completed, signed, and placed in outbox. * Telephone Encounter - Shyanne Bledsoe Ma - 07/26/2023 7:22 PM EDT Form f'wd to Dr.'s sexton for completion of highlighted sections and signature. Shyanne Bledsoe Ma July 26, 2023 7:22 PM * Telephone Encounter - Susi Oconnor - 07/20/2023 4:04 PM EDT Patient has been identified by name and date of : Yes Type of form: [facility] - Certification of Medical Necessity: Enteral and ParenteralNutrition Form received via: Fax When form is completed, fax form to [phone] Form has been forwarded to: Provider's mailbox. Provider name: Dr Abrahan Oconnor documented in this encounterAultman Hospital10-09-2023 Miscellaneous Notes* Telephone Encounter - Nikita Gauthier MD - 07/31/2023 4:38 PM EDT Discussed with geospatial information scientist. Equivalent tube feeding regamin is Vital 1.0 x 3 cartons mixed with 1 cup of water. Run at 85/hr Will have patient follow up with tube feeding nutrition manager Lashon Islas. To schedule call: Call for F2F Call for virtual visit * Telephone Encounter - Nikita Gauthier MD - 07/31/2023 2:45 PM EDT Called mom to clarify nutrition needs. Currently getting 2 cartons vital 1.5 mixed with 2 cartons water overnight. Running at a rate of 85ml/hr. Unable to get vital 1.5 but vital 1.0 is available. documented in this encounterAultman Hospital08-16-2023 History of Present illness Narrative* Marifer Dowd MD - 06/07/2023 12:45 PM EDT I have seen and evaluated the patient and discussed the case with the resident physician. I agree with the assessment and plan as documented in the resident s note. Here for G tube to Rafael button changed. Performed without difficulty and flushed easily. Patient doing well overall. Marifer Dowd MD June 07, 2023 12:45 PM * Joe Hernandez MD - 06/05/2023 3:11 PM EDT Images from the original note were not included. GENERAL SURGERY PROGRESS NOTE Service Date: June 05, 2023 Subjective: Marcos Aguirre is a 27 year old male with a history of spina bifida, NIGEL, wheelchair bound s/p open TAR with revision of colostomy, revision of mitrofanoff, gastrotomy tube placement, and cholecystectomy on 03/14. He was seen in March for suture removal post-op and was recovering in the right direction. He had issues changing his G-tube in [place] so he was asked to come to the clinic today for us to change his G-tube. Physical Exam: There were no vitals taken for this visit. GENERAL: no acute distress LUNGS: non-labored breathing on RA CARDIAC: warm and well perfused throughout ABDOMEN: soft, non tender, non distended, G-tube in-situ Assessment and Plan: Marcos Aguirre is a 27 year old male with a history of spina bifida, NIGEL, wheelchair bound s/p open TAR with revision of colostomy, revision of mitrofanoff, gastrotomy tube placement, and cholecystectomy on 03/14 who presented today for a G-tube change. - We exchanged the G-tube with a Rafael button, no issues with placement. Joe Hernandez MD General Surgery, PGY-1 documented in this encounterAultman Hospital08-14-2023 Nurse Note* Amada Bella Ma - 06/05/2023 3:18 PM EDT What is the reason for your visit today? est Who is your referring physician? Dr. Dowd Are you having poor oral intake? NO Have you had unintentional weight loss of 15 lbs/7 Kg in the last 3-6 months? NO Bowels: regular Wound: clean & dry Temperature: No Drains: Yes catheter documented in [facility] encounter[facility] History of Present illness Narrative* Marifer Dowd MD - 04/17/2023 3:28 PM EDT TEACHING PHYSICIAN NOTE OF PERSONAL INVOLVEMENT IN CARE: I have personally seen and examined the patient and performed the medical decision-making components. I have reviewed the medical student documentation and verified the findings in the note as written. Any additions or changes are noted in bold/italics. Signature: Marifer Dowd Date: 04/17/2023 Time: 3:31 PM Here for followup after TAR on 03/14 with unremarkable post op course other than some tachycardia which ultimately resolved. He looks and feels well and does not have any complaints today. Plan for followup 1 year. We removed sutures today as well. His parents asked about changing the G tube to a Rafael button which is not ready yet as it hasn't been 6-8 weeks for the tract to mature. She will try to get it changed closer to home and otherwise I've told her she can bring him here. All questions answered. Marifer Dowd MD April 17, 2023 3:32 PM documented in this encounterAult[facility]06-26-[facility] History of Present illness Narrative* Kelsie Giraldo MD - 04/17/2023 10:15 AM EDT HPI: s/p 03/14/23 take down and revision of mitrofanoff continent urinary channel - complex ab wall repair and cholecystectomy by Dr. Dowd - colostomy take down and revision by Dr. Shore He had imaging while in house for a leukocytosis, which resolved. Remained asymptomatic. Postop visit today. Feels better than ever The indwelling wade was causing problems- they have a straight cath taped in and urine is clear. That is their pref method Incision healed Some skin changes on backside- reviewed images on [email or web address] phone. Looks like diaper rash. Advised A&D or similar PAST MEDICAL HISTORY Diagnosis Date Sleep apnea Spina bifida (HCC) PAST SURGICAL HISTORY Procedure Laterality Date MIDLINE INSERTION/CONSULT 01/06/2020 PAST SURGICAL HISTORY OF transverse colostomy PICC LINE INSERT/CONSULT 01/09/2020 Social History Tobacco Use Smoking status: Never Smokeless tobacco: Never Vaping Use Vaping Use: Never used Substance Use Topics Alcohol use: Never Drug use: Never No current outpatient medications on file prior to visit. No current facility-administered medications on file prior to visit. ROS: Constitutional: Sleepy past three weeks but improving. No focal neuro symptoms or HAs Gastrointestinal: gagged this morning but generally tolerating feeds PHYSICAL EXAM: There were no vitals taken for this visit. GENERAL: in chair, NAD ABDOMEN: incision appears healed, wade taped in place GENITOURINARY: MALE EXAM: Not indicated DATA/OR LABS TO BE REVIEWED: (Simple=1 data point; Complex= 2 or more) No results found for: PSA Creatinine Date Value 03/25/2023 0.31 mg/dL 03/24/2023 0.31 mg/dL 03/23/2023 0.25 mg/dL 03/22/2023 0.22 mg/dL 03/21/2023 0.25 mg/dL 11/12/2021 0.36 mg/dL 01/13/2020 0.44 MG/DL 01/09/2020 0.32 mg/dL 01/08/2020 0.37 mg/dL 01/07/2020 0.48 mg/dL No results found for: TESTOST A/P: s/p ab wall recon with stoma revision- appears to be doing well He had CT on 03/21/23 that demonstrated normal upper tracts Cystatin C normal on 03/23 See in [facility] in 1 year, but if they want to see the other providers, we can provide a sooner appt. Kelsie Giraldo MD documented in this encounterA[facility]06-14-2023 Miscellaneous Notes* Telephone Encounter - Sabiha Mcarthur APRN.CNP - 04/05/2023 12:49 PM EDT See telephone encounter with Dr. Johnson. Sabiha Mcarthur APRN.KRISTI documented in this encounterA[facility]05-27-[facility] [place] [place] [place] [place] Note [facility] [place] [place] [place] [place] 03-16-2023 [facility] [place] Note[facility] [place] [place] [place] History of Past illness Narrative* Problem Noted Date Resolved Date Recurrent ventral hernia 03/14/2023 023 Last Assessment & Plan: Assessment: S/p XL w/ incisional hernia repair with mesh (Bilateral TAR) Abdominal DANAE x2 Plan - Care per primary team - Ppx Zosyn x 1 week Acute post-operative pain 03/14/20232022 Last Assessment & Plan: A - S/P XL, CUCA, colostomy re-siting, Mitrofonoff urinary cutaneous re-siting, G- tub re-siting, cholecystectomy and open incisional hernia repair with mesh on 03/14 - patient denies pain subjectively P - s/p TAP block in OR - acetaminophen liquid scheduled Metabolic acidosis 03/14/2023 03/18/2023 Last Assessment & Plan: Assessment: Postop pH 7.26, pCO2 35, HCO3 18. S/p 1 amp HCO3 in the OR. Repeat ABG shows improvement, lactate improved Plan - Intubated, will plan to WTE with resolution of metabolic acidosis - Trend ABG Acute postoperative respiratory insufficiency 03/25/2023 Last Assessment & Plan: A - s/p revision of end colostomy with resection and re-siting Plan: - supplemental oxygen as needed for SpO2 >92% - CTM respiratory status Sepsis 01/04/2020 01/08/2020 Last Assessment & Plan: Assessment: HDS, leukocytosis improving - Last urine culture was in 11/29/19 positive for pseudomonas susceptible to Zosyn - Received Ceftriaxone intraop PLAN: - Vanc/Zosyn/Fluc - ID consulted - BCx and UCx pending documented as of this encounter (statuses as of 04/05/2023) [facility] of Past illness Narrative* Problem Noted Date Resolved Date Recurrent ventral hernia 03/14/2023 023 Last Assessment & Plan: Assessment: S/p XL w/ incisional hernia repair with mesh (Bilateral TAR) Abdominal DANAE x2 Plan - Care per primary team - Ppx Zosyn x 1 week Acute post-operative pain 03/14/20232022 Last Assessment & Plan: A - S/P XL, CUCA, colostomy re-siting, Mitrofonoff urinary cutaneous re-siting, G- tub re-siting, cholecystectomy and open incisional hernia repair with mesh on 03/14 - patient denies pain subjectively P - s/p TAP block in OR - acetaminophen liquid scheduled Metabolic acidosis 03/14/2023 03/18/2023 Last Assessment & Plan: Assessment: Postop pH 7.26, pCO2 35, HCO3 18. S/p 1 amp HCO3 in the OR. Repeat ABG shows improvement, lactate improved Plan - Intubated, will plan to WTE with resolution of metabolic acidosis - Trend ABG Acute postoperative respiratory insufficiency 03/25/2023 Last Assessment & Plan: A - s/p revision of end colostomy with resection and re-siting Plan: - supplemental oxygen as needed for SpO2 >92% - CTM respiratory status Sepsis 01/04/2020 01/08/2020 Last Assessment & Plan: Assessment: HDS, leukocytosis improving - Last urine culture was in 11/29/19 positive for pseudomonas susceptible to Zosyn - Received Ceftriaxone intraop PLAN: - Vanc/Zosyn/Fluc - ID consulted - BCx and UCx pending documented as of this encounter (statuses as of 04/17/2023) [facility] of Past illness Narrative* Problem Noted Date Resolved Date Recurrent ventral hernia 03/14/2023 023 Last Assessment & Plan: Assessment: S/p XL w/ incisional hernia repair with mesh (Bilateral TAR) Abdominal DANAE x2 Plan - Care per primary team - Ppx Zosyn x 1 week Acute post-operative pain 03/14/20232022 Last Assessment & Plan: A - S/P XL, CUCA, colostomy re-siting, Mitrofonoff urinary cutaneous re-siting, G- tub re-siting, cholecystectomy and open incisional hernia repair with mesh on 03/14 - patient denies pain subjectively P - s/p TAP block in OR - acetaminophen liquid scheduled Metabolic acidosis 03/14/2023 03/18/2023 Last Assessment & Plan: Assessment: Postop pH 7.26, pCO2 35, HCO3 18. S/p 1 amp HCO3 in the OR. Repeat ABG shows improvement, lactate improved Plan - Intubated, will plan to WTE with resolution of metabolic acidosis - Trend ABG Acute postoperative respiratory insufficiency 03/25/2023 Last Assessment & Plan: A - s/p revision of end colostomy with resection and re-siting Plan: - supplemental oxygen as needed for SpO2 >92% - CTM respiratory status Sepsis 01/04/2020 01/08/2020 Last Assessment & Plan: Assessment: HDS, leukocytosis improving - Last urine culture was in 11/29/19 positive for pseudomonas susceptible to Zosyn - Received Ceftriaxone intraop PLAN: - Vanc/Zosyn/Fluc - ID consulted - BCx and UCx pending documented as of this encounter (statuses as of 04/18/2023) [facility] of Past illness Narrative* Problem Noted Date Resolved Date Recurrent ventral hernia 03/14/2023 023 Last Assessment & Plan: Assessment: S/p XL w/ incisional hernia repair with mesh (Bilateral TAR) Abdominal DANAE x2 Plan - Care per primary team - Ppx Zosyn x 1 week Acute post-operative pain 03/14/20232022 Last Assessment & Plan: A - S/P XL, CUCA, colostomy re-siting, Mitrofonoff urinary cutaneous re-siting, G- tub re-siting, cholecystectomy and open incisional hernia repair with mesh on 03/14 - patient denies pain subjectively P - s/p TAP block in OR - acetaminophen liquid scheduled Metabolic acidosis 03/14/2023 03/18/2023 Last Assessment & Plan: Assessment: Postop pH 7.26, pCO2 35, HCO3 18. S/p 1 amp HCO3 in the OR. Repeat ABG shows improvement, lactate improved Plan - Intubated, will plan to WTE with resolution of metabolic acidosis - Trend ABG Acute postoperative respiratory insufficiency 03/25/2023 Last Assessment & Plan: A - s/p revision of end colostomy with resection and re-siting Plan: - supplemental oxygen as needed for SpO2 >92% - CTM respiratory status Sepsis 01/04/2020 01/08/2020 Last Assessment & Plan: Assessment: HDS, leukocytosis improving - Last urine culture was in 11/29/19 positive for pseudomonas susceptible to Zosyn - Received Ceftriaxone intraop PLAN: - Vanc/Zosyn/Fluc - ID consulted - BCx and UCx pending documented as of this encounter (statuses as of 04/20/2023) [facility] of Past illness Narrative* Problem Noted Date Diagnosed Date Resolved Date Recurrent ventral hernia 03/14/202312/2022 Last Assessment & Plan: Assessment: S/p XL w/ incisional hernia repair with mesh (Bilateral TAR) Abdominal DANAE x2 Plan - Care per primary team - Ppx Zosyn x 1 week Acute post-operative pain 03/14/2023 Last Assessment & Plan: A - S/P XL, CUCA, colostomy re-siting, Mitrofonoff urinary cutaneous re-siting, G- tub re-siting, cholecystectomy and open incisional hernia repair with mesh on 03/14 - patient denies pain subjectively P - s/p TAP block in OR - acetaminophen liquid scheduled Metabolic acidosis 03/14/2023 Last Assessment & Plan: Assessment: Postop pH 7.26, pCO2 35, HCO3 18. S/p 1 amp HCO3 in the OR. Repeat ABG shows improvement, lactate improved Plan - Intubated, will plan to WTE with resolution of metabolic acidosis - Trend ABG Acute postoperative respiratory insufficiency 03/14/20 23 03/25/2023 Last Assessment & Plan: A - s/p revision of end colostomy with resection and re-siting Plan: - supplemental oxygen as needed for SpO2 >92% - CTM respiratory status Sepsis 01/04/2020 01/08/2020 Last Assessment & Plan: Assessment: HDS, leukocytosis improving - Last urine culture was in 11/29/19 positive for pseudomonas susceptible to Zosyn - Received Ceftriaxone intraop PLAN: - Vanc/Zosyn/Fluc - ID consulted - BCx and UCx pending documented as of this encounter (statuses as of 06/08/2023) [facility] of [facility] illness Narrative* Problem Noted Date Diagnosed Date Resolved Date Recurrent ventral hernia 03/14/202312/2022 Last Assessment & Plan: Assessment: S/p XL w/ incisional hernia repair with mesh (Bilateral TAR) Abdominal DANAE x2 Plan - Care per primary team - Ppx Zosyn x 1 week Acute post-operative pain 03/14/2023 Last Assessment & Plan: A - S/P XL, CUCA, colostomy re-siting, Mitrofonoff urinary cutaneous re-siting, G- tub re-siting, cholecystectomy and open incisional hernia repair with mesh on 03/14 - patient denies pain subjectively P - s/p TAP block in OR - acetaminophen liquid scheduled Metabolic acidosis 03/14/2023 Last Assessment & Plan: Assessment: Postop pH 7.26, pCO2 35, HCO3 18. S/p 1 amp HCO3 in the OR. Repeat ABG shows improvement, lactate improved Plan - Intubated, will plan to WTE with resolution of metabolic acidosis - Trend ABG Acute postoperative respiratory insufficiency 03/14/2003/25/2023 Last Assessment & Plan: A - s/p revision of end colostomy with resection and re-siting Plan: - supplemental oxygen as needed for SpO2 >92% - CTM respiratory status Sepsis 01/04/2020 01/08/2020 Last Assessment & Plan: Assessment: HDS, leukocytosis improving - Last urine culture was in 11/29/19 positive for pseudomonas susceptible to Zosyn - Received Ceftriaxone intraop PLAN: - Vanc/Zosyn/Fluc - ID consulted - BCx and UCx pending documented as of this encounter (statuses as of 06/08/2023) [facility] illness Narrative* Problem Noted Date Diagnosed Date Resolved Date Recurrent ventral hernia 03/14/202312/2022 Last Assessment & Plan: Assessment: S/p XL w/ incisional hernia repair with mesh (Bilateral TAR) Abdominal DANAE x2 Plan - Care per primary team - Ppx Zosyn x 1 week Acute post-operative pain 03/14/2023 Last Assessment & Plan: A - S/P XL, CUCA, colostomy re-siting, Mitrofonoff urinary cutaneous re-siting, G- tub re-siting, cholecystectomy and open incisional hernia repair with mesh on 03/14 - patient denies pain subjectively P - s/p TAP block in OR - acetaminophen liquid scheduled Metabolic acidosis 03/14/2023 Last Assessment & Plan: Assessment: Postop pH 7.26, pCO2 35, HCO3 18. S/p 1 amp HCO3 in the OR. Repeat ABG shows improvement, lactate improved Plan - Intubated, will plan to WTE with resolution of metabolic acidosis - Trend ABG Acute postoperative respiratory insufficiency 03/14/2003/25/2023 Last Assessment & Plan: A - s/p revision of end colostomy with resection and re-siting Plan: - supplemental oxygen as needed for SpO2 >92% - CTM respiratory status Sepsis 01/04/2020 01/08/2020 Last Assessment & Plan: Assessment: HDS, leukocytosis improving - Last urine culture was in 11/29/19 positive for pseudomonas susceptible to Zosyn - Received Ceftriaxone intraop PLAN: - Vanc/Zosyn/Fluc - ID consulted - BCx and UCx pending documented as of this encounter (statuses as of 08/02/2023) [facility] illness Narrative* Problem Noted Date Diagnosed Date Resolved Date Recurrent ventral hernia 03/14/202312/2022 Last Assessment & Plan: Assessment: S/p XL w/ incisional hernia repair with mesh (Bilateral TAR) Abdominal DANAE x2 Plan - Care per primary team - Ppx Zosyn x 1 week Acute post-operative pain 03/14/2023 Last Assessment & Plan: A - S/P XL, CUCA, colostomy re-siting, Mitrofonoff urinary cutaneous re-siting, G- tub re-siting, cholecystectomy and open incisional hernia repair with mesh on 03/14 - patient denies pain subjectively P - s/p TAP block in OR - acetaminophen liquid scheduled Metabolic acidosis 03/14/2023 Last Assessment & Plan: Assessment: Postop pH 7.26, pCO2 35, HCO3 18. S/p 1 amp HCO3 in the OR. Repeat ABG shows improvement, lactate improved Plan - Intubated, will plan to WTE with resolution of metabolic acidosis - Trend ABG Acute postoperative respiratory insufficiency 03/14/2003/25/2023 Last Assessment & Plan: A - s/p revision of end colostomy with resection and re-siting Plan: - supplemental oxygen as needed for SpO2 >92% - CTM respiratory status Sepsis 01/04/2020 01/08/2020 Last Assessment & Plan: Assessment: HDS, leukocytosis improving - Last urine culture was in 11/29/19 positive for pseudomonas susceptible to Zosyn - Received Ceftriaxone intraop PLAN: - Vanc/Zosyn/Fluc - ID consulted - BCx and UCx pending documented as of this encounter (statuses as of 2023) [facility] Narrative* Problem Noted Date Diagnosed Date Resolved Date Recurrent ventral hernia 03/14/202312/2022 Last Assessment & Plan: Assessment: S/p XL w/ incisional hernia repair with mesh (Bilateral TAR) Abdominal DANAE x2 Plan - Care per primary team - Ppx Zosyn x 1 week Acute post-operative pain 03/14/2023 Last Assessment & Plan: A - S/P XL, CUCA, colostomy re-siting, Mitrofonoff urinary cutaneous re-siting, G- tub re-siting, cholecystectomy and open incisional hernia repair with mesh on 03/14 - patient denies pain subjectively P - s/p TAP block in OR - acetaminophen liquid scheduled Metabolic acidosis 03/14/2023 Last Assessment & Plan: Assessment: Postop pH 7.26, pCO2 35, HCO3 18. S/p 1 amp HCO3 in the OR. Repeat ABG shows improvement, lactate improved Plan - Intubated, will plan to WTE with resolution of metabolic acidosis - Trend ABG Acute postoperative respiratory insufficiency 03/14/2003/25/2023 Last Assessment & Plan: A - s/p revision of end colostomy with resection and re-siting Plan: - supplemental oxygen as needed for SpO2 >92% - CTM respiratory status Sepsis 01/04/2020 01/08/2020 Last Assessment & Plan: Assessment: HDS, leukocytosis improving - Last urine culture was in 11/29/19 positive for pseudomonas susceptible to Zosyn - Received Ceftriaxone intraop PLAN: - Vanc/Zosyn/Fluc - ID consulted - BCx and UCx pending documented as of this encounter (statuses as of 08/26/2023) [facility] illness Narrative* Problem Noted Date Diagnosed Date Resolved Date Recurrent ventral hernia 03/14/202312/2022 Last Assessment & Plan: Assessment: S/p XL w/ incisional hernia repair with mesh (Bilateral TAR) Abdominal DANAE x2 Plan - Care per primary team - Ppx Zosyn x 1 week Acute post-operative pain 03/14/2023 Last Assessment & Plan: A - S/P XL, CUCA, colostomy re-siting, Mitrofonoff urinary cutaneous re-siting, G- tub re-siting, cholecystectomy and open incisional hernia repair with mesh on 03/14 - patient denies pain subjectively P - s/p TAP block in OR - acetaminophen liquid scheduled Metabolic acidosis 03/14/2023 Last Assessment & Plan: Assessment: Postop pH 7.26, pCO2 35, HCO3 18. S/p 1 amp HCO3 in the OR. Repeat ABG shows improvement, lactate improved Plan - Intubated, will plan to WTE with resolution of metabolic acidosis - Trend ABG Acute postoperative respiratory insufficiency 03/14/2003/25/2023 Last Assessment & Plan: A - s/p revision of end colostomy with resection and re-siting Plan: - supplemental oxygen as needed for SpO2 >92% - CTM respiratory status Sepsis 01/04/2020 01/08/2020 Last Assessment & Plan: Assessment: HDS, leukocytosis improving - Last urine culture was in 11/29/19 positive for pseudomonas susceptible to Zosyn - Received Ceftriaxone intraop PLAN: - Vanc/Zosyn/Fluc - ID consulted - BCx and UCx pending documented as of this encounter (statuses as of 08/29/2023) [facility] Narrative* Problem Noted Date Diagnosed Date Resolved Date Recurrent ventral hernia 03/14/202312/2022 Last Assessment & Plan: Assessment: S/p XL w/ incisional hernia repair with mesh (Bilateral TAR) Abdominal DANAE x2 Plan - Care per primary team - Ppx Zosyn x 1 week Acute post-operative pain 03/14/2023 Last Assessment & Plan: A - S/P XL, CUCA, colostomy re-siting, Mitrofonoff urinary cutaneous re-siting, G- tub re-siting, cholecystectomy and open incisional hernia repair with mesh on 03/14 - patient denies pain subjectively P - s/p TAP block in OR - acetaminophen liquid scheduled Metabolic acidosis 03/14/2023 Last Assessment & Plan: Assessment: Postop pH 7.26, pCO2 35, HCO3 18. S/p 1 amp HCO3 in the OR. Repeat ABG shows improvement, lactate improved Plan - Intubated, will plan to WTE with resolution of metabolic acidosis - Trend ABG Acute postoperative respiratory insufficiency 03/14/20 23 03/25/2023 Last Assessment & Plan: A - s/p revision of end colostomy with resection and re-siting Plan: - supplemental oxygen as needed for SpO2 >92% - CTM respiratory status Sepsis 01/04/2020 01/08/2020 Last Assessment & Plan: Assessment: HDS, leukocytosis improving - Last urine culture was in 11/29/19 positive for pseudomonas susceptible to Zosyn - Received Ceftriaxone intraop PLAN: - Vanc/Zosyn/Fluc - ID consulted - BCx and UCx pending documented as of this encounter (statuses as of 08/29/2023) [facility] Narrative* Problem Noted Date Diagnosed Date Resolved Date Recurrent ventral hernia 03/14/202312/2022 Last Assessment & Plan: Assessment: S/p XL w/ incisional hernia repair with mesh (Bilateral TAR) Abdominal DANAE x2 Plan - Care per primary team - Ppx Zosyn x 1 week Acute post-operative pain 03/14/2023 Last Assessment & Plan: A - S/P XL, CUCA, colostomy re-siting, Mitrofonoff urinary cutaneous re-siting, G- tub re-siting, cholecystectomy and open incisional hernia repair with mesh on 03/14 - patient denies pain subjectively P - s/p TAP block in OR - acetaminophen liquid scheduled Metabolic acidosis 03/14/2023 Last Assessment & Plan: Assessment: Postop pH 7.26, pCO2 35, HCO3 18. S/p 1 amp HCO3 in the OR. Repeat ABG shows improvement, lactate improved Plan - Intubated, will plan to WTE with resolution of metabolic acidosis - Trend ABG Acute postoperative respiratory insufficiency 03/14/2003/25/2023 Last Assessment & Plan: A - s/p revision of end colostomy with resection and re-siting Plan: - supplemental oxygen as needed for SpO2 >92% - CTM respiratory status Sepsis 01/04/2020 01/08/2020 Last Assessment & Plan: Assessment: HDS, leukocytosis improving - Last urine culture was in 11/29/19 positive for pseudomonas susceptible to Zosyn - Received Ceftriaxone intraop PLAN: - Vanc/Zosyn/Fluc - ID consulted - BCx and UCx pending documented as of this encounter (statuses as of 08/29/2023) [facility] Narrative* Problem Noted Date Diagnosed Date Resolved Date Recurrent ventral hernia 03/14/202312/2022 Last Assessment & Plan: Assessment: S/p XL w/ incisional hernia repair with mesh (Bilateral TAR) Abdominal DANAE x2 Plan - Care per primary team - Ppx Zosyn x 1 week Acute post-operative pain 03/14/2023 Last Assessment & Plan: A - S/P XL, CUCA, colostomy re-siting, Mitrofonoff urinary cutaneous re-siting, G- tub re-siting, cholecystectomy and open incisional hernia repair with mesh on 03/14 - patient denies pain subjectively P - s/p TAP block in OR - acetaminophen liquid scheduled Metabolic acidosis 03/14/2023 Last Assessment & Plan: Assessment: Postop pH 7.26, pCO2 35, HCO3 18. S/p 1 amp HCO3 in the OR. Repeat ABG shows improvement, lactate improved Plan - Intubated, will plan to WTE with resolution of metabolic acidosis - Trend ABG Acute postoperative respiratory insufficiency 03/14/20 23 03/25/2023 Last Assessment & Plan: A - s/p revision of end colostomy with resection and re-siting Plan: - supplemental oxygen as needed for SpO2 >92% - CTM respiratory status Sepsis 01/04/2020 01/08/2020 Last Assessment & Plan: Assessment: HDS, leukocytosis improving - Last urine culture was in 11/29/19 positive for pseudomonas susceptible to Zosyn - Received Ceftriaxone intraop PLAN: - Vanc/Zosyn/Fluc - ID consulted - BCx and UCx pending documented as of this encounter (statuses as of 01/04/2024) [facility] Narrative* Problem Noted Date Diagnosed Date Resolved Date Recurrent ventral hernia 03/14/202312/2022 Last Assessment & Plan: Assessment: S/p XL w/ incisional hernia repair with mesh (Bilateral TAR) Abdominal DANAE x2 Plan - Care per primary team - Ppx Zosyn x 1 week Acute post-operative pain 03/14/2023 Last Assessment & Plan: A - S/P XL, CUCA, colostomy re-siting, Mitrofonoff urinary cutaneous re-siting, G- tub re-siting, cholecystectomy and open incisional hernia repair with mesh on 03/14 - patient denies pain subjectively P - s/p TAP block in OR - acetaminophen liquid scheduled Metabolic acidosis 03/14/2023 Last Assessment & Plan: Assessment: Postop pH 7.26, pCO2 35, HCO3 18. S/p 1 amp HCO3 in the OR. Repeat ABG shows improvement, lactate improved Plan - Intubated, will plan to WTE with resolution of metabolic acidosis - Trend ABG Acute postoperative respiratory insufficiency 03/14/2003/25/2023 Last Assessment & Plan: A - s/p revision of end colostomy with resection and re-siting Plan: - supplemental oxygen as needed for SpO2 >92% - CTM respiratory status Sepsis 01/04/2020 01/08/2020 Last Assessment & Plan: Assessment: HDS, leukocytosis improving - Last urine culture was in 11/29/19 positive for pseudomonas susceptible to Zosyn - Received Ceftriaxone intraop PLAN: - Vanc/Zosyn/Fluc - ID consulted - BCx and UCx pending documented as of this encounter (statuses as of 01/26/2024) [facility] History of Past illness Narrative* Problem Noted Date Diagnosed Date Resolved Date Recurrent ventral hernia 03/14/202312/2022 Last Assessment & Plan: Assessment: S/p XL w/ incisional hernia repair with mesh (Bilateral TAR) Abdominal DANAE x2 Plan - Care per primary team - Ppx Zosyn x 1 week Acute post-operative pain 03/14/2023 Last Assessment & Plan: A - S/P XL, CUCA, colostomy re-siting, Mitrofonoff urinary cutaneous re-siting, G- tub re-siting, cholecystectomy and open incisional hernia repair with mesh on 03/14 - patient denies pain subjectively P - s/p TAP block in OR - acetaminophen liquid scheduled Metabolic acidosis 03/14/2023 Last Assessment & Plan: Assessment: Postop pH 7.26, pCO2 35, HCO3 18. S/p 1 amp HCO3 in the OR. Repeat ABG shows improvement, lactate improved Plan - Intubated, will plan to WTE with resolution of metabolic acidosis - Trend ABG Acute postoperative respiratory insufficiency 03/14/2003/25/2023 Last Assessment & Plan: A - s/p revision of end colostomy with resection and re-siting Plan: - supplemental oxygen as needed for SpO2 >92% - CTM respiratory status Sepsis 01/04/2020 01/08/2020 Last Assessment & Plan: Assessment: HDS, leukocytosis improving - Last urine culture was in 11/29/19 positive for pseudomonas susceptible to Zosyn - Received Ceftriaxone intraop PLAN: - Vanc/Zosyn/Fluc - ID consulted - BCx and UCx pending documented as of this encounter (statuses as of 01/27/2024) [facility] History of Past illness Narrative* Problem Noted Date Diagnosed Date Resolved Date Recurrent ventral hernia 03/14/202312/2022 Last Assessment & Plan: Assessment: S/p XL w/ incisional hernia repair with mesh (Bilateral TAR) Abdominal DANAE x2 Plan - Care per primary team - Ppx Zosyn x 1 week Acute post-operative pain 03/14/2023 Last Assessment & Plan: A - S/P XL, CUCA, colostomy re-siting, Mitrofonoff urinary cutaneous re-siting, G- tub re-siting, cholecystectomy and open incisional hernia repair with mesh on 03/14 - patient denies pain subjectively P - s/p TAP block in OR - acetaminophen liquid scheduled Metabolic acidosis 03/14/2023 Last Assessment & Plan: Assessment: Postop pH 7.26, pCO2 35, HCO3 18. S/p 1 amp HCO3 in the OR. Repeat ABG shows improvement, lactate improved Plan - Intubated, will plan to WTE with resolution of metabolic acidosis - Trend ABG Acute postoperative respiratory insufficiency 03/14/2003/25/2023 Last Assessment & Plan: A - s/p revision of end colostomy with resection and re-siting Plan: - supplemental oxygen as needed for SpO2 >92% - CTM respiratory status Sepsis 01/04/2020 01/08/2020 Last Assessment & Plan: Assessment: HDS, leukocytosis improving - Last urine culture was in 11/29/19 positive for pseudomonas susceptible to Zosyn - Received Ceftriaxone intraop PLAN: - Vanc/Zosyn/Fluc - ID consulted - BCx and UCx pending documented as of this encounter (statuses as of 01/29/2024) [facility] History of Past illness Narrative* Problem Noted Date Diagnosed Date Resolved Date Recurrent ventral hernia 03/14/202312/2022 Last Assessment & Plan: Assessment: S/p XL w/ incisional hernia repair with mesh (Bilateral TAR) Abdominal DANAE x2 Plan - Care per primary team - Ppx Zosyn x 1 week Acute post-operative pain 03/14/2023 Last Assessment & Plan: A - S/P XL, CUCA, colostomy re-siting, Mitrofonoff urinary cutaneous re-siting, G- tub re-siting, cholecystectomy and open incisional hernia repair with mesh on 03/14 - patient denies pain subjectively P - s/p TAP block in OR - acetaminophen liquid scheduled Metabolic acidosis 03/14/2023 Last Assessment & Plan: Assessment: Postop pH 7.26, pCO2 35, HCO3 18. S/p 1 amp HCO3 in the OR. Repeat ABG shows improvement, lactate improved Plan - Intubated, will plan to WTE with resolution of metabolic acidosis - Trend ABG Acute postoperative respiratory insufficiency 03/14/2003/25/2023 Last Assessment & Plan: A - s/p revision of end colostomy with resection and re-siting Plan: - supplemental oxygen as needed for SpO2 >92% - CTM respiratory status Sepsis 01/04/2020 01/08/2020 Last Assessment & Plan: Assessment: HDS, leukocytosis improving - Last urine culture was in 11/29/19 positive for pseudomonas susceptible to Zosyn - Received Ceftriaxone intraop PLAN: - Vanc/Zosyn/Fluc - ID consulted - BCx and UCx pending documented as of this encounter (statuses as of 01/29/2024) [facility] History of Past illness Narrative* Problem Noted Date Diagnosed Date Resolved Date Recurrent ventral hernia 03/14/202312/2022 Last Assessment & Plan: Assessment: S/p XL w/ incisional hernia repair with mesh (Bilateral TAR) Abdominal DANAE x2 Plan - Care per primary team - Ppx Zosyn x 1 week Acute post-operative pain 03/14/2023 Last Assessment & Plan: A - S/P XL, CUCA, colostomy re-siting, Mitrofonoff urinary cutaneous re-siting, G- tub re-siting, cholecystectomy and open incisional hernia repair with mesh on 03/14 - patient denies pain subjectively P - s/p TAP block in OR - acetaminophen liquid scheduled Metabolic acidosis 03/14/2023 Last Assessment & Plan: Assessment: Postop pH 7.26, pCO2 35, HCO3 18. S/p 1 amp HCO3 in the OR. Repeat ABG shows improvement, lactate improved Plan - Intubated, will plan to WTE with resolution of metabolic acidosis - Trend ABG Acute postoperative respiratory insufficiency 03/14/20 23 03/25/2023 Last Assessment & Plan: A - s/p revision of end colostomy with resection and re-siting Plan: - supplemental oxygen as needed for SpO2 >92% - CTM respiratory status Sepsis 01/04/2020 01/08/2020 Last Assessment & Plan: Assessment: HDS, leukocytosis improving - Last urine culture was in 11/29/19 positive for pseudomonas susceptible to Zosyn - Received Ceftriaxone intraop PLAN: - Vanc/Zosyn/Fluc - ID consulted - BCx and UCx pending documented as of this encounter (statuses as of 02/04/2024) [facility] History of Past illness Narrative* Problem Noted Date Diagnosed Date Resolved Date Recurrent ventral hernia 03/14/202312/2022 Last Assessment & Plan: Assessment: S/p XL w/ incisional hernia repair with mesh (Bilateral TAR) Abdominal DANAE x2 Plan - Care per primary team - Ppx Zosyn x 1 week Acute post-operative pain 03/14/2023 Last Assessment & Plan: A - S/P XL, CUCA, colostomy re-siting, Mitrofonoff urinary cutaneous re-siting, G- tub re-siting, cholecystectomy and open incisional hernia repair with mesh on 03/14 - patient denies pain subjectively P - s/p TAP block in OR - acetaminophen liquid scheduled Metabolic acidosis 03/14/2023 Last Assessment & Plan: Assessment: Postop pH 7.26, pCO2 35, HCO3 18. S/p 1 amp HCO3 in the OR. Repeat ABG shows improvement, lactate improved Plan - Intubated, will plan to WTE with resolution of metabolic acidosis - Trend ABG Acute postoperative respiratory insufficiency 03/14/20 23 03/25/2023 Last Assessment & Plan: A - s/p revision of end colostomy with resection and re-siting Plan: - supplemental oxygen as needed for SpO2 >92% - CTM respiratory status Sepsis 01/04/2020 01/08/2020 Last Assessment & Plan: Assessment: HDS, leukocytosis improving - Last urine culture was in 11/29/19 positive for pseudomonas susceptible to Zosyn - Received Ceftriaxone intraop PLAN: - Vanc/Zosyn/Fluc - ID consulted - BCx and UCx pending documented as of this encounter (statuses as of 01/26/2024) [facility] [place] [place] [place] [place] [place] [facility] [place] History of Present illness Narrative* Vicki Augutsine, PhD - 02/16/2023 4:00 PM EDT [facility] [place] Name: Marcos Aguirre MR#: [id number] Date: 02/16/2023 Time: hour Referred by: Dr. Dowd Reason for Referral: address psychological factors as they can affect post- operative recovery. Information relayed back to referral source via electronic medical record His chart was reviewed and he gave his own extensive history with the help of his mother. For distraction he likes to watch TV and You Tube. The basic underlying psychological and physiological mechanisms behind the brain body connection were explained. He was introduced to the concepts and techniques that he can employ to help with pain and healing after surgery. He was given the link to the Behavioral Medicine Program website, instructed on the use of the relaxation recordings, and told of the informational content. He was given the opportunity to ask questions and informed that he could be seen again. Vicki Eldirdge, Ph.D. [facility] Instructions* Patient Instructions* Prince Vallejo APRN.[employer] ARCHITECT - 02/16/2023 12:54 PM EDT PATIENT PREOPERATIVE INSTRUCTIONS Marifer Dowd MD has scheduled you for your procedure at this surgery center: [facility] [place] Scheduling Office: [phone] --[address] [place] [address]. Please read below carefully for your personalized instructions. Dietary Restrictions: - No solid food after midnight. - You may have 12 ounces of clear liquids (water, clear juices such as apple juice or gatorade, carbonated beverages, clear tea, black coffee, jello) until 2 hours before scheduled arrival at facility. - Formula must be stopped 6 hours prior to scheduled arrival at facility. Is Patient Diabetic:No Medications: Unless instructed differently below, stay on all of your medications until your surgery. Approved medications to take the morning of surgery with a sip of water: None If you take any medications for erectile dysfunction-Cialis (Tadalafil), Levitra, Staxyn (Vardenafil) Viagra (Sildenenafil please do not take these for 48 hours before surgery. If you start any new medications after today's visit, please contact the surgeon's office. Blood Thinning Medications: - Stop NSAIDS (Ibuprofen, Advil, Aleve, Motrin, Celebrex, Mobic, etc.) 7 days before surgery, as directed by your surgeon. - Stop Aspirin 7 days before surgery, as directed by your surgeon. - Stop Vitamin E, ALL multi-vitamins, herbals and dietary supplements 7 days before surgery. - You may take Tylenol (Acetaminophen) or any of your pain medications that do not contain aspirin or NSAIDS as needed. Important Reminders: - Candy, mints, and tobacco products are NOT permitted the morning of surgery. - Hearing aids, dentures and glasses may be worn the morning of surgery. - NO jewelry, body piercings, makeup, hairpins or contacts are to be worn the day of surgery. If you develop symptoms such as a fever, cold, or flu, or have other changes to your health within TWO DAYS of scheduled surgery or the morning of surgery, please contact the surgery center above. Personal Belongings: -Please have photo ID and insurance cards. -If you do not have a copy of advance directives on file with us, please bring a copy with you on the day of surgery. - Leave ALL valuables and money at home or with family members. For Outpatient Procedures: - YOU MUST HAVE A RESPONSIBLE ANALYSIS ENGINEER TAKE YOU HOME. A DAIRY LAB TECHNICIAN OR DROP CLIPPER CANNOT BE MADE A RESPONSIBLE ANALYSIS ENGINEER. - We recommend that a responsible person stays with you overnight to take care of you. - You cannot stay in a hotel alone after outpatient surgery. You will not be permitted to have yoursurgery, if you do not have someone to take care of you. Arrival Time for Surgery: - To obtain your arrival time for surgery, call your physician's office the day before your surgery. - If your surgery is scheduled for Monday, call the Monday before. Your surgeon s tapeman will tell you what time to call the office. - If you have not reached the departmental tapeman by 5 P.M., call [phone] after 5 P.M. the day before your surgery. Please be aware that emergency situations arise, which may delay or change your surgical time. If this happens, we will notify you as soon as possible and regret any inconvenience. If you already have an Advance Directive, please fax a copy to [phone] or email to for it to be added to your chart. If you do not have an Advance Directive, you can find the appropriate form and more information at [email or web address]. We recommend that youcomplete the Advance Directive form found on the website and bring it with you the day of your surgery. It can be witnessed and scanned into your chart that day. Prince Vallejo APRN.CNP documented in [facility]04[facility] History and physical note * Prince Vallejo APRN.CNP - 02/16/2023 12:40 PM EDT HISTORY AND PHYSICAL EXAMINATION SERVICE DATE: 02/16/2023 SERVICE TIME: 1:24 PM PRIMARY CARE PHYSICIAN: Nikita Gramajo IV, DO REASON FOR VISIT: Marcos Aguirre is a 27 year old male who is scheduled for Procedure(s): REVISION COLOSTOMY W/ REPAIR PARACOLOSTOMY HERNIA (Pending) REVISION URINARY CUTANEOUS ANASTOMOSIS (N/A) at the request of Dr. Marifer Dowd MD for consultation. My final recommendation will be communicated back to the requesting physician by way of shared medical record or letter. Subjective The patient has the following: ACTIVE PROBLEM LIST Spina Bifida of Lumbosacral Region With Hydrocephalus (Hcc) Colostomy Present (Hcc) G Tube Feedings (Hcc) Suprapubic Catheter (Hcc) Renal Stone Bladder Stone Neurogenic Bladder Nigel (Obstructive Sleep Apnea) Chronic Osteomyelitis of Pelvic Region (Hcc) S/P Ventriculoperitoneal Shunt COVID-19 Immunization Status Overdue - COVID-19 VACCINE (5 - Booster for Moderna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 2022, 12:07 PM documented in this encounterAultman Hospital10-10-2022 Nurse Note* Stalin De La Cruz MA - 08/01/2022 10:00 AM EDT What is the reason for your visit today? New Patient Who is your referring physician? Dr. Dowd Are you having poor oral intake? NO Have you had unintentional weight loss of 15 lbs/7 Kg in the last 3-6 months? NO Bowels: regular Wound: clean & dry Temperature: No Drains: No documented in this encounterAultman Hospital09-03-2022 Emergency department Note * Lashon Gonzalez RN - 06/25/2022 4:29 PM EDT Discharge instructions and medications reviewed with parents. Verbalized understanding. Denies any questions or concerns at this time. Pt discharged home in no acute distress at this time. [facility]09-03-2022 Emergency department Note* Lashon Gonzalez RN - 06/25/2022 4:29 PM EDT Discharge instructions and medications reviewed with parents. Verbalized understanding. Denies any questions or concerns at this time. Pt discharged home in no acute distress at this time. * Lashon Gonzalez RN - 06/25/2022 4:25 PM EDT Resident at bedside further discussing hernia dx and providing education to patient and mom at thistime. Homegoing instructions and when to return to ED reviewed in detail. Mom and patient verbalized understanding. * Lashon Gonzalez RN - 06/25/2022 4:00 PM EDT Resident at bedside. * Alina Tatum DO - 06/25/2022 3:02 PM EDT Images from the original note were not included. Marcos Aguirre : 1995 Chief Complaint Patient presents with Abdominal Pain Emesis Allergies Allergen Reactions Latex Other (See Comments) precaution Other Rash bactrim ointment Bacitracin Rash Levaquin [Levofloxacin] Other (See Comments) Skin turns red all over. Sulfa Antibiotics Rash DOS: 06/25/2022 Patient with past hx of spina bifida, PEG tube, colostomy with revision in [address] abd findings. Notes that past 1.5 weeks has been having episodes of nausea, vomiting and decreased ostomy output. Initially occurred last with symptoms and was seen Monday with no abnormalities and improvement in symptoms. States that he went to work for 3 days without any emesis butrecurred Monday on. Had CT done yesterday by GI order along with labs. Read showing left lower abdominal hernia with bowel loop and proximal dilation concerning for obstruction. Has tolerated PO and G tube feeds yesterday without emesis. Having gas in ostomy but minimal stool. No food this morning but also no emesis. No fevers or chills. Feels pressure in lower chest as he has no sensation below this area. Review of Systems Constitutional: Positive for appetite change. Negative for activity change, fatigue and fever. HENT: Negative for congestion, ear pain, rhinorrhea and trouble swallowing. Eyes: Negative for pain and redness. Respiratory: Negative for cough, choking and shortness of breath. Cardiovascular: Negative for chest pain. Gastrointestinal: Positive for abdominal distention, nausea and vomiting. Negative for abdominal pain and diarrhea. Genitourinary: Negative for decreased urine volume and dysuria. Musculoskeletal: Negative for back pain, joint swelling, neck pain and neck stiffness. Skin: Negative for color change, pallor, rash and wound. Neurological: Negative for syncope, weakness, numbness and headaches. Past Medical History: Diagnosis Date Bladder calculus Chronic kidney disease Delay in development Metabolic disease Neurogenic bladder Pneumonia Post-operative infection 06/26/2007 s aureus Pressure sore 09/14/2012 Scoliosis Spina bifida with hydrocephalus thoracic level Tethered spinal cord Past Surgical History: Procedure Laterality Date ABDOMEN SURGERY N/A 05/04/2015 mitrofanoff, bladder neck repair, bowens stoma creation with colon flap; bladder neck sling MMK performed by Chris Cobb MD at [facility] OR ADENOIDECTOMY BLADDER SURGERY N/A 10/03/2016 VESICOLOTHOTOMY possible lithoclast performed by Chris Cobb MD at [facility] OR COLOSTOMY N/A 01/29/2019 COLOSTOMY performed by Perry Sheikh MD at [facility] OR GASTROSTOMY N/A 01/29/2019 ENDOSCOPIC GASTROSTOMY PERCUTANEOUS performed by Perry Sheikh MD at [facility] OR GASTROSTOMY 05/16/2019 gastrostomy tube removal performed by Perry Sheikh MD at [facility] OR HERNIA REPAIR HIP FUSION Right 05/16/2019 RIGHT HIP DISARTICULATION VERSUS CASTLE PROXIMAL FEMORAL RESECTION AND FLAP COVERAGE performed by Cruz Ramires MD at [facility] OR KIDNEY STONE SURGERY N/A 02/15/2018 CYSTOSCOPY WITH LITHOLAPAXY/VESICOLITHOTRIPSY/CYSTOLITHOPAXY & HOLMIUM LASER performed by Chris Cobb MD at [facility] OR LAMINECTOMY 05/24/2005 Untethering of spinal cord LAPAROTOMY N/A 11/04/2020 LAPAROTOMY, EXPLORATORY, POSSIBLE BOWEL RESECTION, POSSIBLE PARASTOMAL HERNIA REPAIR, POSSIBLE OSTOMY REVISION performed by Ronnie Mendez MD at [facility] OR LITHOTRIPSY N/A 12/21/2017 cystoscopy and Holmium laser lithotripsy of bladder calculi possible vesicolithotomy performed by Chris Cobb MD at [facility] OR MYELOMENINGOCELE REPAIR ORTHOPEDIC SURGERY 06/26/2007 I & D of spinal wound with DuraSeal control of spinal leak ORTHOPEDIC SURGERY 09/18/2007 Removal of distal end of both posterior spinal rods ORTHOPEDIC SURGERY 01/25/2008 Incision, debridement and drainage of spinal infection, closure over Tobramycin, calcium sulfate pellets OTHER SURGICAL HISTORY bowens stoma/ mitroffanof OTHER SURGICAL HISTORY vesicolothomy PICC PLACEMENT AK ANESTH,UGI ENDOSCOPY [place] UROLOGY SURGERY PROCEDURE UNLISTED RECONSTRUCTIVE FLAP SURGERY 05/16/2019 EXCISION OF ISCHIAL PRESSURE ULCER WITH FLAP CLOSURE performed by Trent Issa MD at [facility] OR SPINAL FUSION 06/06/2007 RSF with instrumentation T2 to sacrum SPINAL FUSION 05/26/2010 Staged (single day) posterior fusion and anterior interbody fusion with instrumentation TONSILLECTOMY TONSILLECTOMY AND ADENOIDECTOMY UPPER GASTROINTESTINAL ENDOSCOPY N/A 06/20/2017 ENDOSCOPY UPPER (FLEXIBLE) with biopsies performed by Augustin Rey MD at [facility] OR VENTRICULOPERITONEAL SHUNT Pediatric History Patient Parents/Guardians Marcos Aguirre (Self/Guardian) Wendi Aguirre (Mother) Jae Aguirre (Father) Other Topics Concern Not on file Social History Narrative Not on file ED Triage Vitals Date and Time Temp Temp src Pulse Resp BP SpO2 Weight User 06/25/22 1419 36.5 C (97.7 F) -- 97 22 111/62 100 % 46 kg ARK Physical Exam Constitutional: General: He is not in acute distress. Appearance: Normal appearance. He is well-developed and normal weight. He is not ill-appearing or toxic-appearing. HENT: Head: Normocephalic and atraumatic. Right Ear: Tympanic membrane and external ear normal. Left Ear: Tympanic membrane and external ear normal. Nose: Nose normal. No congestion or rhinorrhea. Mouth/Throat: Mouth: Mucous membranes are moist. Pharynx: No oropharyngeal exudate. Oropharynx is clear. Eyes: Extraocular Movements: Extraocular movements intact. Pupils: Pupils are equal, round, and reactive to light. Neck: Musculoskeletal: Normal range of motion. No muscular tenderness. Cardiovascular: Rate and Rhythm: Normal rate and regular rhythm. Pulses: Normal pulses. Heart sounds: Normal heart sounds. Pulmonary: Effort: Pulmonary effort is normal. Breath sounds: Normal breath sounds. Abdominal: General: Abdomen is flat. Bowel sounds are normal. There is distension. Tenderness: There is no abdominal tenderness. Comments: PEG in place over right abd wall (C/D/I), ostomy in RLQ with some gas. Hernia noted in LLQ with small amount of bowel able to be reduced. Musculoskeletal: General: No swelling or tenderness. Normal range of motion. Cervical back: Normal range of motion. No rigidity. No muscular tenderness. Skin: General: Skin is warm. Capillary Refill: Capillary refill takes less than 2 seconds. Neurological: Mental Status: He is alert. Mental status is at baseline. Cranial Nerves: No cranial nerve deficit. Sensory: No sensory deficit. Motor: No weakness. Procedures MDM Patient with H&P as above. Vitals on arrival normal and stable. Lab work and imaging from previous day reviewed. Only abnormality noted is creatinine is now 0.52 from baseline of around 0.2. CT showing left lower abdominal wall hernia with bowel loop concern for obstruction. General surgery consulted for evaluation. After evaluation by surgery, no plans for intervention at this time, likely intermittent obstruction but able to reduce hernia at bedside. Will need to follow up with adult general surgery for repairin future as well. Given return precautions and discharged ED Course: Diagnosis' considered: Labs/Radiology: Consults: Consults Ordered Procedures ED consult to Surgery Medical Record/Transferring Institution Record: Treatment/Reassessment: Encounter Documentation/Handoff: Final Clinical Impression/Diagnosis as of 06/25/222030 Abdominal wall hernia Attending note: I have reviewed the nursing notes, history of present illness, past medical, family, and social history, review of systems, and physical exam with the Resident. Based on my own interview and examination I have reviewed and agree with the History of Present Illness, Past Medical History, Family History, and Social History as documented. The Review of Systems is negative, except as documented. The Physical Exam as documented is accurate. Please see any additional documentation by me in MDM section. I participated in determining and agree with the management, final impression, and disposition as documented. I was present during any sahni procedures. I personally supervised and was present for any sahni procedures Electronically signed: 8:31 PM 06/25/22 Alina Tatum DO * Lashon Hsu RN - 06/25/2022 2:19 PM EDT Patient to ED with mother for feeling funny in the belly, pressure and distended per patient. Little output in colostomy per mother, last emesis on Monday. Per mother patient with CT yesterday, concern for hernia and bowel obstruction, referred to ED. BS x4 soft, distended. Complex history. Patient awake and alert acting age appropriate. Heart sounds regular, lungs ctab, mmm, skin wpd. * Rhett Pride - 06/25/2022 2:18 PM EDT Bed: E Expected date: 06/25/22 Expected time: 12:56 PM Means of arrival: Car Comments: REF Sending : Dae SR Age/: 89 Chief Complaint: abdominal pain Call back?: no # to call back: Patient initials: D.D * Note entered by Communication Center Staff * [facility] Emergency [facility] Note* Lashon Gonzalez RN - 06/25/2022 4:25 PM EDT Resident at bedside further discussing hernia dx and providing education to patient and mom at thistime. Homegoing instructions and when to return to ED reviewed in detail. Mom and patient verbalized understanding. [facility] Hospital Discharge instructions* Discharge Instructions* Laurent Puga MD - 06/25/2022 4:11 PM EDT Recommending monitoring for any changes to hernia or other symptoms associated with obstruction andreturning if present. Otherwise recommend establishing with adult General Surgery provider to evaluate hernia repair in the outpatient setting. documented in this encounterHol[facility]09-[facility] Emergency department Note* Lashon Gonzalez RN - 06/25/2022 4:00 PM EDT Resident at bedside. [facility] Physician Emergency department Note* Alina Tatum DO - 06/25/2022 3:02 PM EDT Images from the original note were not included. Marcos Aguirre : 1995 Chief Complaint Patient presents with Abdominal Pain Emesis Allergies Allergen Reactions Latex Other (See Comments) precaution Other Rash bactrim ointment Bacitracin Rash Levaquin [Levofloxacin] Other (See Comments) Skin turns red all over. Sulfa Antibiotics Rash DOS: 06/25/2022 Patient with past hx of spina bifida, PEG tube, colostomy with revision in [address] abd findings. Notes that past 1.5 weeks has been having episodes of nausea, vomiting and decreased ostomy output. Initially occurred last with symptoms and was seen Monday with no abnormalities and improvement in symptoms. States that he went to work for 3 days without any emesis butrecurred Monday on. Had CT done yesterday by GI order along with labs. Read showing left lower abdominal hernia with bowel loop and proximal dilation concerning for obstruction. Has tolerated PO and G tube feeds yesterday without emesis. Having gas in ostomy but minimal stool. No food this morning but also no emesis. No fevers or chills. Feels pressure in lower chest as he has no sensation below this area. Review of Systems Constitutional: Positive for appetite change. Negative for activity change, fatigue and fever. HENT: Negative for congestion, ear pain, rhinorrhea and trouble swallowing. Eyes: Negative for pain and redness. Respiratory: Negative for cough, choking and shortness of breath. Cardiovascular: Negative for chest pain. Gastrointestinal: Positive for abdominal distention, nausea and vomiting. Negative for abdominal pain and diarrhea. Genitourinary: Negative for decreased urine volume and dysuria. Musculoskeletal: Negative for back pain, joint swelling, neck pain and neck stiffness. Skin: Negative for color change, pallor, rash and wound. Neurological: Negative for syncope, weakness, numbness and headaches. Past Medical History: Diagnosis Date Bladder calculus Chronic kidney disease Delay in development Metabolic disease Neurogenic bladder Pneumonia Post-operative infection 06/26/2007 s aureus Pressure sore 09/14/2012 Scoliosis Spina bifida with hydrocephalus thoracic level Tethered spinal cord Past Surgical History: Procedure Laterality Date ABDOMEN SURGERY N/A 05/04/2015 mitrofanoff, bladder neck repair, bowens stoma creation with colon flap; bladder neck sling MMK performed by Chris Cobb MD at [facility] OR ADENOIDECTOMY BLADDER SURGERY N/A 10/03/2016 VESICOLOTHOTOMY possible lithoclast performed by Chris Cobb MD at [facility] OR COLOSTOMY N/A 01/29/2019 COLOSTOMY performed by Perry Sheikh MD at [facility] OR GASTROSTOMY N/A 01/29/2019 ENDOSCOPIC GASTROSTOMY PERCUTANEOUS performed by Perry Sheikh MD at [facility] OR GASTROSTOMY 05/16/2019 gastrostomy tube removal performed by Perry Sheikh MD at [facility] OR HERNIA REPAIR HIP FUSION Right 05/16/2019 RIGHT HIP DISARTICULATION VERSUS CASTLE PROXIMAL FEMORAL RESECTION AND FLAP COVERAGE performed by Cruz Ramires MD at [facility] OR KIDNEY STONE SURGERY N/A 02/15/2018 CYSTOSCOPY WITH LITHOLAPAXY/VESICOLITHOTRIPSY/CYSTOLITHOPAXY & HOLMIUM LASER performed by Chris Cobb MD at [facility] OR LAMINECTOMY 05/24/2005 Untethering of spinal cord LAPAROTOMY N/A 11/04/2020 LAPAROTOMY, EXPLORATORY, POSSIBLE BOWEL RESECTION, POSSIBLE PARASTOMAL HERNIA REPAIR, POSSIBLE OSTOMY REVISION performed by Ronnie Mendez MD at [facility] OR LITHOTRIPSY N/A 12/21/2017 cystoscopy and Holmium laser lithotripsy of bladder calculi possible vesicolithotomy performed by Chris Cobb MD at [facility] OR MYELOMENINGOCELE REPAIR ORTHOPEDIC SURGERY 06/26/2007 I & D of spinal wound with DuraSeal control of spinal leak ORTHOPEDIC SURGERY 09/18/2007 Removal of distal end of both posterior spinal rods ORTHOPEDIC SURGERY 01/25/2008 Incision, debridement and drainage of spinal infection, closure over Tobramycin, calcium sulfate pellets OTHER SURGICAL HISTORY bowens stoma/ mitroffanof OTHER SURGICAL HISTORY vesicolothomy PICC PLACEMENT AK ANESTH,UGI ENDOSCOPY AK UROLOGY SURGERY PROCEDURE UNLISTED RECONSTRUCTIVE FLAP SURGERY 05/16/2019 EXCISION OF ISCHIAL PRESSURE ULCER WITH FLAP CLOSURE performed by Trent Issa MD at [facility] OR SPINAL FUSION 06/06/2007 RSF with instrumentation T2 to sacrum SPINAL FUSION 05/26/2010 Staged (single day) posterior fusion and anterior interbody fusion with instrumentation TONSILLECTOMY TONSILLECTOMY AND ADENOIDECTOMY UPPER GASTROINTESTINAL ENDOSCOPY N/A 06/20/2017 ENDOSCOPY UPPER (FLEXIBLE) with biopsies performed by Augustin Rey MD at [facility] OR VENTRICULOPERITONEAL SHUNT Pediatric History Patient Parents/Guardians Marcos Aguirre (Self/Guardian) Wendi Aguirre (Mother) Jae Aguirre (Father) Other Topics Concern Not on file Social History Narrative Not on file ED Triage Vitals Date and Time Temp Temp src Pulse Resp BP SpO2 Weight User 06/25/22 1419 36.5 C (97.7 F) -- 97 111/62 100 % 46 kg ARK Physical Exam Constitutional: General: He is not in acute distress. Appearance: Normal appearance. He is well-developed and normal weight. He is not ill-appearing or toxic-appearing. HENT: Head: Normocephalic and atraumatic. Right Ear: Tympanic membrane and external ear normal. Left Ear: Tympanic membrane and external ear normal. Nose: Nose normal. No congestion or rhinorrhea. Mouth/Throat: Mouth: Mucous membranes are moist. Pharynx: No oropharyngeal exudate. Oropharynx is clear. Eyes: Extraocular Movements: Extraocular movements intact. Pupils: Pupils are equal, round, and reactive to light. Neck: Musculoskeletal: Normal range of motion. No muscular tenderness. Cardiovascular: Rate and Rhythm: Normal rate and regular rhythm. Pulses: Normal pulses. Heart sounds: Normal heart sounds. Pulmonary: Effort: Pulmonary effort is normal. Breath sounds: Normal breath sounds. Abdominal: General: Abdomen is flat. Bowel sounds are normal. There is distension. Tenderness: There is no abdominal tenderness. Comments: PEG in place over right abd wall (C/D/I), ostomy in RLQ with some gas. Hernia noted in LLQ with small amount of bowel able to be reduced. Musculoskeletal: General: No swelling or tenderness. Normal range of motion. Cervical back: Normal range of motion. No rigidity. No muscular tenderness. Skin: General: Skin is warm. Capillary Refill: Capillary refill takes less than 2 seconds. Neurological: Mental Status: He is alert. Mental status is at baseline. Cranial Nerves: No cranial nerve deficit. Sensory: No sensory deficit. Motor: No weakness. Procedures MDM Patient with H&P as above. Vitals on arrival normal and stable. Lab work and imaging from previous day reviewed. Only abnormality noted is creatinine is now 0.52 from baseline of around 0.2. CT showing left lower abdominal wall hernia with bowel loop concern for obstruction. General surgery consulted for evaluation. After evaluation by surgery, no plans for intervention at this time, likely intermittent obstruction but able to reduce hernia at bedside. Will need to follow up with adult general surgery for repairin future as well. Given return precautions and discharged ED Course: Diagnosis' considered: Labs/Radiology: Consults: Consults Ordered Procedures ED consult to Surgery Medical Record/Transferring Institution Record: Treatment/Reassessment: Encounter Documentation/Handoff: Final Clinical Impression/Diagnosis as of 06/25/222030 Abdominal wall hernia Attending note: I have reviewed the nursing notes, history of present illness, past medical, family, and social history, review of systems, and physical exam with the Resident. Based on my own interview and examination I have reviewed and agree with the History of Present Illness, Past Medical History, Family History, and Social History as documented. The Review of Systems is negative, except as documented. The Physical Exam as documented is accurate. Please see any additional documentation by me in MDM section. I participated in determining and agree with the management, final impression, and disposition as documented. I was present during any sahni procedures. I personally supervised and was present for any sahni procedures Electronically signed: 8:31 PM 06/25/22 Alina Tatum DO [facility] Work Phone: [phone] 708-581609-03-2022 Emergency department Triage note* Lashon Hsu RN - 06/25/2022 2:19 PM EDT Patient to ED with mother for feeling funny in the belly, pressure and distended per patient. Little output in colostomy per mother, last emesis on Monday. Per mother patient with CT yesterday, concern for hernia and bowel obstruction, referred to ED. BS x4 soft, distended. Complex history. Patient awake and alert acting age appropriate. Heart sounds regular, lungs ctab, mmm, skin wpd. [facility] Emergency department Note* Rhett Pride - 06/25/2022 2:18 PM EDT Bed: 03 Expected date: 06/25/22 Expected time: 12:56 PM Means of arrival: Car Comments: REF Sending MD: Dae SR Age/: 89 Chief Complaint: abdominal pain Call back?: no # to call back: Patient initials: D.D * Note entered by Communication Center Staff * [facility] Note* Marina Chun RN - 06/19/2022 2:40 PM EDT Pt discharged home per resident. [facility] Emergency [facility] Note* Marina Chun RN - 06/19/2022 2:40 PM EDT Pt discharged home per resident. * Lashon Garduno RN - 06/19/2022 10:55 AM EDT Alert and fully oriented 26 year old presenting with concern for his colostomy might be blocked and intermittent emesis since Monday. Also has a g-tube. Respirations easy and even. Belly soft and distended. Decreased output in colostomy bag. MMM. Cap refill <2 seconds. Please obtain weight viabed scale. documented in this encounterHolzer [facility]08-28-[facility]22 Hospital Discharge instructions* Discharge Instructions* Joseph Dolan DO - 06/19/2022 12:32 PM EDT Please call your GI doctor to be evaluated. Come back to the ED for new or worsening symptoms such as worsening vomiting, diarrhea, abdominal distension. * Attachments The following attachments cannot be sent through Care Everywhere. * Adult Advisor: Stomach Flu (German) documented in this encounterHolzer Hospital08-28-2022 Emergency department Triage note* Lashon Garduno RN - 06/19/2022 10:55 AM EDT Alert and fully oriented 26 year old presenting with concern for his colostomy might be blocked and intermittent emesis since Monday. Also has a g-tube. Respirations easy and even. Belly soft and distended. Decreased output in colostomy bag. MMM. Cap refill <2 seconds. Please obtain weight viabed scale. [facility]06-07[facility]22 NoteHNO ID: [id number] Author: Kelsie Giraldo MD Service: ? Author Type: Physician Type: Progress Notes Filed: 03/29/2022 9:06 AM Note Text:[facility]06-04-2022 Instructions* Patient Instructions* Mando Gibbs MD - 03/26/2022 9:06 AM EDT Consider EMG/NCS to assess for ulnar neuropathy at elbow. Elbow pad to cushion ulnar nerve on arm rest F/U as needed documented in this encounterA[facility]06-[facility]-2022 [facility] [place]06[facility]03[facility] History of Present illness Narrative* Mando iGbbs MD - 03/25/2022 11:21 AM EDT Images from the original note were not included. PM&R/SCI Medicine Attending Outpatient Note Name: Marcos Aguirre I was asked to evaluate (Marcos Sandoval) by (Dr Giraldo) for recommendations regarding management of his/her rehabilitation needs. My findings and recommendations will be communicated through the [facility]. 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 Past Medical History (+) Arnold Chiari Malformation (99%) (+) Hydrocephalus s/p release (-) Seizure (+) Tethered Cord Syndrome s/p elease (+) Scoliosis (+) Hip Dystocia (-) Syringomyelia Right AKA Kidney and Bladder Stones Past Surgical History Myelomengocele s/p repair Hydrocephalus s/p SPRAY PILOT shunt Tethered Cord Syndrome s/p release Scoliosis s/p stabilization Right AKA Kidney and Bladder Stones s/p removal Allergies: (+) Latex allergy precaution Medications: Current Outpatient Medications on File Prior to Visit Medication Sig acetaminophen (TYLENOL EXTRA STRENGTH) 500 mg tablet Take 2 tablets by mouth every 6 hours as needed for Pain. Nutritional Supplement - Fiber (PEPTIDE FORMULA 1.5) liqd Take by mouth. No current facility-administered medications on file prior to visit. Family History SB, No DVT, (+) DM and myocardial Social History Vocation: works at [email or web address] Living Arrangements:famioly No Smoke, EtOh, Drugs ROS He is living with mom and dad His PCP is Dr Nikita Gramajo MD His sleep is ok. sleep apnea on bipap with oxygen His Pain = 0 He has no depression He has no signs or sx of respiratory dysfunction. His spasticity is present His skin is intact He has no autonomic dysreflexia with procedures He has no orthostatic hypotension He has no hx of DVT/PE. On xxx His sensation is normal His strength is stable He has no edema He is continent of bladder with wade q 4 with 14 fr straight catheter Changed daily He had 0 bladder infections in [address] Giraldo Urologist He has history of Bladder and Kidney stones. Her Bladder/Kidney US yearly He is continent of bowels with colostomy His Dexa Scan was never He has right femur fracture Osteomyelitis and Right AKA. He is independent with eating. He is independent with grooming. He is independent with upper extremity dressing He is dependent with Lower extremity dressing He is dependent with cooking and cleaning. He is dependent with bowel management. He is dependent with bladder management. He is dependent with bed mobility. He is dependent with transfers. Track ceiling lift He doesn't stand, walk or do steps He is independent with wheelchair mobility He has a power assist wheelchair with emotion wheels and Comfort Inception cushion . [employer] is motion mobility Date getting chair 2018 He doesn't drives Objective Physical Exam: General: cooperative Extremity: Dislocation of ulnar nerve over medial epicondyle bilaterally Neurologic: A&O x 3. Sensory exam: See E- ISNCSCI, also pin sensation on palmar aspect of 5th digit reduced compared to 2nd digit bilaterally Motor Exam: See E- ISNCSCI DTRs: Right Left Biceps 2 2 Triceps 2 2 Hall Tromner Right + - Left + - Data Review Imagin12/29/18 MRI Pelvis: 1. Osteomyelitis involving the proximal femur from at least the epiphysis to theproximal diaphysis. 2. Right acetabular osteomyelitis. 3. Right gluteal and proximal thigh musculature myositis. Large decubitus wound. 4. Fluid in the right hip joint which may be reactive or septic arthritis. 5. Urinary bladder calculi and iatrogenic air. Assessment T3 paraplegia with neurogenic bowel and bladder due to Myelomeningocele s/p repair, Hydrocephalus s/p shunt, Arnold Chiari Malformation, Tethered Cord Syndrome s/p release, Scoliosis s/p stabilization, Hip Dystocia, Right AKA and Kidney and Bladder Stones s/p removal who was seen in spina bifida clinic in follow up with clinical exam c/w bilateral ulnar neuropathy with ulnar nerve dislocation over the medial epicondyle during elbow flexion. R/O ulnar neuropathy at the elbow. ODRS = 0 and I have no concerns 30 minutes was taken to review records, history, examine patient, review films and formulate a management Plan Consider EMG/NCS to assess for ulnar neuropathy at elbow. Elbow pad to cushion ulnar nerve on arm rest F/U as needed Mando Gibbs MD Spinal Cord Injury Medicine Attending Physical Medicine & Rehabilitation [phone] documented in this encounterAultman Hospital06-03-2022 History of Present illness Narrative* Nikita Gauthier MD - 03/25/2022 10:00 AM EDT Spina Bifida [facility]idisciplinary [facility] Internal Medicine HPI: Marcos Aguirre is a 26 year old male who presents for spina bifida multidisciplinary clinic. PCP: Dr. Gramajo who recently reclocated--looking for a new PCP. History of spina bifida with history of hydrocephalus and SPRAY PILOT shunt. History of multiple pressure wounds with osteomyelitis s/p R leg amputation. Colostomy and g-tube placed 01/29/19. Significant improvement in nutrition status since then and no current wounds. Weight at home last night 101.8Lbs at home last night. Sleeps with a BiPap with oxygen. Lives with mom, dad, cat. Mom and dad do most home care. Day program. All systems reviewed and otherwise negative except as above. Physical Exam BP 116/79 Pulse 81 Physical Exam Vitals reviewed. HENT: Right Ear: External ear normal. Left Ear: External ear normal. Nose: Nose normal. Mouth/Throat: Mouth: Mucous membranes are moist. Eyes: Conjunctiva/sclera: Conjunctivae normal. Cardiovascular: Rate and Rhythm: Normal rate and regular rhythm. Pulmonary: Effort: Pulmonary effort is normal. Skin: General: Skin is warm. Capillary Refill: Capillary refill takes less than 2 seconds. Neurological: Mental Status: He is alert. Psychiatric: Mood and Affect: Mood normal. Assessment and Plan Encounter Diagnosis ICD-10-CM 1. Spina bifida of lumbosacral region with hydrocephalus (HCC) Q05.2 HEPATIC FUNCTION PNL 2. G tube feedings (HCC) Z93.1 3. Vitamin D deficiency E55.9 VITAMIN D 25 HYDROXY 4. Screening for lipoid disorders Z13.220 LIPID PANEL BASIC 5. Screening for iron deficiency anemia Z13.0 CBC FERRITIN BLD - Overall doing well with regular primary care follow-up. - Would benefit from regular follow-up with nutrition. - Consider DXA. I spent a total of 35 minutes on the date of the service which included preparing to see the patient, [id number] patient care, completing clinical documentation, obtaining and/or reviewing separately obtained history and performing a medically appropriate examination. Nikita Gauthier MD Associate Staff Physician Clinical Clinical Physician Assistantlawn mower mechanic [facility] Pediatric[facility] [address] [place] [address] Office: documented in this encounterAultman Hospital06-03-2022 Miscellaneous Notes* Letter - Kelsie Giraldo MD - 03/25/2022 12:00 AM EDT March 29, 2022 Nikita Balderas M.D. NAME: MARCOS AGUIRRE CLINIC NO.: [id number] DATE OF SERVICE: 03/25/[address] Balderas: I am writing regarding our mutual patient Marcos Aguirre who was seen in Adult Spina Bifida Clinic on March 25, 2022. From urologic perspective, Marcos seems to be doing fairly well. As you would recall, he had some stones in his bladder which we treated in October 2021. An ultrasound performed on Mondaydemonstrated right kidney which was non-hydronephrotic at 8.2 cm so left kidney was not visualized.Labs were ordered, and they do not appear to have been collected. He was seen by Dr. Nikita Castro from [facility] who seemed to be fairly satisfied with how he was doing from nutritional standpoint.He did recommend nutritional consultation which can be done virtually to help manage issues pertaining to the tube feeds. He was also seen by our material chaser, Dr. Kang Gibbs, who recommended elbow pads. He was concerned that he may have an ulnar neuropathy at the elbow and recommend an EMG be performed. If indeed he does have ulnar neuropathy, we will recommend he see one of our upper extremity orthopods to address this. For details of our visit, please see attached notes. If you have any questions or concerns, please do not hesitate to contact me. Sincerely yours, Kelsie Giraldo M.D. Date Dictated: 03/29/2022 Date Typed: [facility] 03/30/2022 JOB# [id number] clinic notes from myself, Dr. Castro, Dr. Flores dated March 25, 2022, ultrasound report dated March 25, 2022. documented in this encounterAultman Hospital01-24-2022 Miscellaneous Notes* Telephone Encounter - Batool Ruiz APRN.[employer] ARCHITECT - 11/15/2021 12:12 PM EST Please review pre-op urine culture report. Please advise. Culture Abnormal 50,000 - <100,000 CFU/ml Klebsiella pneumoniae P Culture Abnormal 50,000 - <100,000 CFU/ml Escherichia coli P Resulting Agency [facility] Susceptibility Klebsiella pneumoniae Escherichia coli MINIMUM INHIBITORY CONCENTRATION(VITEK) (Preliminary) MINIMUM INHIBITORY CONCENTRATION(VITEK) (Preliminary) Ampicillin >=32 Resistant <=2 Susceptible Ampicillin Sulbact 4 Susceptible <=2 Susceptible Cefazolin <=4 Susceptible 1 <=4 Susceptible 1 Cefepime <=1 Susceptible <=1 Susceptible Ceftriaxone <=1 Susceptible <=1 Susceptible Ciprofloxacin <=0.25 Susceptible >=4 Resistant Ertapenem <=0.5 Susceptible <=0.5 Susceptible Gentamicin <=1 Susceptible <=1 Susceptible Meropenem <=0.25 Susceptible <=0.25 Susceptible Nitrofurantoin <=16 Susceptible <=16 Susceptible Piperacillin/Tazobac <=4 Susceptible <=4 Susceptible Trimeth sulfameth <=20 Susceptible <=20 Susceptible documented in this encounterAultman Hospital03-14-2020 History of Past illness Narrative* Problem Noted Date Resolved Date Sepsis 01/04/2020 01/08/2020 Last Assessment & Plan: Assessment: HDS, leukocytosis improving - Last urine culture was in 11/29/19 positive for pseudomonas susceptible to Zosyn - Received Ceftriaxone intraop PLAN: - Vanc/Zosyn/Fluc - ID consulted - BCx and UCx pending documented as of this encounter (statuses as of 03/26/2022) [facility] History of Past illness Narrative* Problem Noted Date Resolved Date Sepsis 01/04/2020 01/08/2020 Last Assessment & Plan: Assessment: HDS, leukocytosis improving - Last urine culture was in 11/29/19 positive for pseudomonas susceptible to Zosyn - Received Ceftriaxone intraop PLAN: - Vanc/Zosyn/Fluc - ID consulted - BCx and UCx pending documented as of this encounter (statuses as of 03/26/2022) [facility] History of Past illness Narrative* Problem Noted Date Resolved Date Sepsis 01/04/2020 01/08/2020 Last Assessment & Plan: Assessment: HDS, leukocytosis improving - Last urine culture was in 11/29/19 positive for pseudomonas susceptible to Zosyn - Received Ceftriaxone intraop PLAN: - Vanc/Zosyn/Fluc - ID consulted - BCx and UCx pending documented as of this encounter (statuses as of 03/27/2022) [facility] History of Past illness Narrative* Problem Noted Date Resolved Date Sepsis 01/04/2020 01/08/2020 Last Assessment & Plan: Assessment: HDS, leukocytosis improving - Last urine culture was in 11/29/19 positive for pseudomonas susceptible to Zosyn - Received Ceftriaxone intraop PLAN: - Vanc/Zosyn/Fluc - ID consulted - BCx and UCx pending documented as of this encounter (statuses as of 03/28/2022) [facility] History of Past illness Narrative* Problem Noted Date Resolved Date Sepsis 01/04/2020 01/08/2020 Last Assessment & Plan: Assessment: HDS, leukocytosis improving - Last urine culture was in 11/29/19 positive for pseudomonas susceptible to Zosyn - Received Ceftriaxone intraop PLAN: - Vanc/Zosyn/Fluc - ID consulted - BCx and UCx pending documented as of this encounter (statuses as of 03/29/2022) [facility] History of Past illness Narrative* Problem Noted Date Resolved Date Sepsis 01/04/2020 01/08/2020 Last Assessment & Plan: Assessment: HDS, leukocytosis improving - Last urine culture was in 11/29/19 positive for pseudomonas susceptible to Zosyn - Received Ceftriaxone intraop PLAN: - Vanc/Zosyn/Fluc - ID consulted - BCx and UCx pending documented as of this encounter (statuses as of 03/30/2022) [facility] History of Past illness Narrative* Problem Noted Date Resolved Date Sepsis 01/04/2020 01/08/2020 Last Assessment & Plan: Assessment: HDS, leukocytosis improving - Last urine culture was in 11/29/19 positive for pseudomonas susceptible to Zosyn - Received Ceftriaxone intraop PLAN: - Vanc/Zosyn/Fluc - ID consulted - BCx and UCx pending documented as of this encounter (statuses as of 08/01/2022) [facility] History of Past illness Narrative* Problem Noted Date Resolved Date Sepsis 01/04/2020 01/08/2020 Last Assessment & Plan: Assessment: HDS, leukocytosis improving - Last urine culture was in 11/29/19 positive for pseudomonas susceptible to Zosyn - Received Ceftriaxone intraop PLAN: - Vanc/Zosyn/Fluc - ID consulted - BCx and UCx pending documented as of this encounter (statuses as of 09/29/2022) [facility] History of Past illness Narrative* Problem Noted Date Resolved Date Sepsis 01/04/2020 01/08/2020 Last Assessment & Plan: Assessment: HDS, leukocytosis improving - Last urine culture was in 11/29/19 positive for pseudomonas susceptible to Zosyn - Received Ceftriaxone intraop PLAN: - Vanc/Zosyn/Fluc - ID consulted - BCx and UCx pending documented as of this encounter (statuses as of 12/19/2022) [facility] History of Past illness Narrative* Problem Noted Date Resolved Date Sepsis 01/04/2020 01/08/2020 Last Assessment & Plan: Assessment: HDS, leukocytosis improving - Last urine culture was in 11/29/19 positive for pseudomonas susceptible to Zosyn - Received Ceftriaxone intraop PLAN: - Vanc/Zosyn/Fluc - ID consulted - BCx and UCx pending documented as of this encounter (statuses as of 12/21/2022) [facility] History of Past illness Narrative* Problem Noted Date Resolved Date Sepsis 01/04/2020 01/08/2020 Last Assessment & Plan: Assessment: HDS, leukocytosis improving - Last urine culture was in 11/29/19 positive for pseudomonas susceptible to Zosyn - Received Ceftriaxone intraop PLAN: - Vanc/Zosyn/Fluc - ID consulted - BCx and UCx pending documented as of this encounter (statuses as of 02/03/2023) [facility] History of Past illness Narrative* Problem Noted Date Resolved Date Sepsis 01/04/2020 01/08/2020 Last Assessment & Plan: Assessment: HDS, leukocytosis improving - Last urine culture was in 11/29/19 positive for pseudomonas susceptible to Zosyn - Received Ceftriaxone intraop PLAN: - Vanc/Zosyn/Fluc - ID consulted - BCx and UCx pending documented as of this encounter (statuses as of 02/04/2023) [facility] History of Past illness Narrative* Problem Noted Date Resolved Date Sepsis 01/04/2020 01/08/2020 Last Assessment & Plan: Assessment: HDS, leukocytosis improving - Last urine culture was in 11/29/19 positive for pseudomonas susceptible to Zosyn - Received Ceftriaxone intraop PLAN: - Vanc/Zosyn/Fluc - ID consulted - BCx and UCx pending documented as of this encounter (statuses as of 02/16/2023) [facility] History of Past illness Narrative* Problem Noted Date Resolved Date Sepsis 01/04/2020 01/08/2020 Last Assessment & Plan: Assessment: HDS, leukocytosis improving - Last urine culture was in 11/29/19 positive for pseudomonas susceptible to Zosyn - Received Ceftriaxone intraop PLAN: - Vanc/Zosyn/Fluc - ID consulted - BCx and UCx pending documented as of this encounter (statuses as of 02/16/2023) [facility] History of Past illness Narrative* Problem Noted Date Resolved Date Sepsis 01/04/2020 01/08/2020 Last Assessment & Plan: Assessment: HDS, leukocytosis improving - Last urine culture was in 11/29/19 positive for pseudomonas susceptible to Zosyn - Received Ceftriaxone intraop PLAN: - Vanc/Zosyn/Fluc - ID consulted - BCx and UCx pending documented as of this encounter (statuses as of 02/17/2023) [facility]ments Appointment Date:11/09/2022 03:00:00 PM Scheduled Provider:NIKITA GR[facility]JO [facility] Evaluation + Plan note Future Appointments Appointment Date:01/01/2025 02:00:00 PM Scheduled Provider:NIKITA GRAMAJO DO Location:[facility] Appointment Type: [facility] Evaluation note* Diagnosis Neurogenic bladder Neurogenic bladder, NOS [facility]* Diagnosis Paraplegia (HCC)- Primary Paraplegia Neurogenic bowel Neurogenic bladder Neurogenic bladder, NOS Urinary retention Retention of urine, unspecified 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 Ulnar neuropathy at elbow of right upper extremity [facility]* Diagnosis Spina bifida of lumbosacral region with hydrocephalus (HCC)- Primary G tube feedings (HCC) Gastrostomy status Vitamin D deficiency Unspecified vitamin D deficiency Screening for lipoid disorders Screening for iron deficiency anemia [facility]* Diagnosis Screening for genitourinary condition Screening for other and unspecified genitourinary condition [facility] Diagnosis Ulnar neuropathy of both upper extremities- Primary Lesion of ulnar nerve [facility]* Diagnosis Gastroenteritis- Primary Other and unspecified noninfectious gastroenteritis and colitis documented in this encounter [facility] note* Diagnosis Abdominal wall hernia- Primary Ventral hernia, unspecified, without mention of obstruction or gangrene documented in this encounter [facility] note* Diagnosis Parastomal hernia with obstruction and without gangrene- Primary Hernia of unspecified site, with obstruction [facility]* Diagnosis Parastomal hernia without obstruction or gangrene- Primary Hernia of unspecified site of abdominal cavity without mention of obstruction or gangrene [facility]* Diagnosis Preoperative examination- Primary Preoperative examination, unspecified Parastomal hernia without obstruction or gangrene Hernia of unspecified site of abdominal cavity without mention of obstruction or gangrene Preoperative examination Preoperative examination, unspecified Parastomal hernia without obstruction or gangrene Hernia of unspecified site of abdominal cavity without mention of obstruction or gangrene [facility] Diagnosis Onset Date Resolution Status Chronic respiratory failure requiring treatment with nocturnal BPAP by mask acute Neuromuscular respiratory weakness acute Obstructive Sleep Apnea-Hypopnea Syndrome noneactive [facility] Work Phone: Evaluation note* Diagnosis Colostomy present (HCC)- Primary Parastomal hernia without obstruction or gangrene Hernia of unspecified site of abdominal cavity without mention of obstruction or gangrene Spina bifida of lumbosacral region with hydrocephalus (HCC) G tube feedings (HCC) Gastrostomy status Preoperative examination Preoperative examination, unspecified Parastomal hernia without obstruction or gangrene Hernia of unspecified site of abdominal cavity without mention of obstruction or gangrene [facility] Diagnosis Pre-op evaluation- Primary Preoperative examination, unspecified NIGEL (obstructive sleep apnea) Obstructive sleep apnea (adult) (pediatric) Preoperative examination Preoperative examination, unspecified Parastomal hernia without obstruction or gangrene Hernia of unspecified site of abdominal cavity without mention of obstruction or gangrene G tube feedings (HCC) Gastrostomy status Colostomy present (HCC) Spina bifida of lumbosacral region with hydrocephalus (HCC) S/P ventriculoperitoneal shunt Presence of cerebrospinal fluid drainage device Neurogenic bladder Neurogenic bladder, NOS Preoperative examination Preoperative examination, unspecified Parastomal hernia without obstruction or gangrene Hernia of unspecified site of abdominal cavity without mention of obstruction or gangrene [facility] Diagnosis Parastomal hernia without obstruction or gangrene- Primary Hernia of unspecified site of abdominal cavity without mention of obstruction or gangrene Preoperative examination Preoperative examination, unspecified Parastomal hernia without obstruction or gangrene Hernia of unspecified site of abdominal cavity without mention of obstruction or gangrene [facility] Diagnosis Cellulitis of buttock- Primary Cellulitis and abscess of buttock Suprapubic catheter (HCC) Other cystostomy status Neurogenic bladder Neurogenic bladder, NOS [facility] Diagnosis Post-operative state- Primary Other postprocedural status documented in this encounter [facility] note* Diagnosis Screening for genitourinary condition Screening for other and unspecified genitourinary condition documented in this encounter [facility] note* Diagnosis Encounter for follow-up- Primary [facility]* Diagnosis Parastomal hernia without obstruction or gangrene- Primary Hernia of unspecified site of abdominal cavity without mention of obstruction or gangrene documented in this encounter [facility] note* Diagnosis G tube feedings (HCC)- Primary Gastrostomy status documented in this encounter [facility] note* Diagnosis Neurogenic bladder- Primary Neurogenic bladder, NOS Tachycardia Tachycardia, unspecified Recurrent UTI Urinary tract infection, site not specified Colostomy status ([facility]) Colostomy status [facility]* Diagnosis Screening for genitourinary condition Screening for other and unspecified genitourinary condition documented in this encounter [facility] note* Diagnosis Paraplegia (HCC)- Primary Paraplegia Neurogenic bowel Neurogenic bladder Neurogenic bladder, NOS Urinary retention Retention of urine, unspecified documented in this encounter [facility] note* Diagnosis Neurogenic bladder- Primary Neurogenic bladder, NOS documented in this encounter [facility] note* Diagnosis 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 [facility]* Diagnosis Neurogenic bladder Neurogenic bladder, NOS documented in this encounter [facility] note* Diagnosis Paraplegia (HCC)- Primary Paraplegia Open wound of tissue overlying spine, unspecified laterality, initial encounter Neurogenic bowel Neurogenic bladder Neurogenic bladder, NOS documented in this encounter [facility] note* Diagnosis Spina bifida, unspecified hydrocephalus presence, unspecified spinal region (HCC)- Primary G tube feedings (HCC) Gastrostomy status Screening for lipoid disorders Screening for iron deficiency anemia Vitamin D deficiency Unspecified vitamin D deficiency documented in this encounter [facility] note* Diagnosis Colostomy in place (HCC)- Primary Colostomy status documented in this encounter [facility] noteNo assessment information [facility] Work [facility]: Evaluation [facility]* Diagnosis Neurogenic bladder- Primary Neurogenic bladder, NOS documented in this encounter [facility] note* Diagnosis Renal stone- Primary Calculus of kidney Sepsis, due to unspecified organism, unspecified whether acute organ dysfunction present (HCC) G tube feedings (HCC) Gastrostomy status Spina bifida, unspecified hydrocephalus presence, unspecified spinal region ([facility]) Therapeutic drug monitoring Encounter for therapeutic drug monitoring Sepsis (HCC) Pre-operative examination- Primary Preoperative examination, unspecified Bladder stone Other calculus in bladder Spina bifida of lumbosacral region with hydrocephalus (HCC) Colostomy present (HCC) G tube feedings (HCC) Gastrostomy status Suprapubic catheter (HCC) Other cystostomy status NIGEL (obstructive sleep apnea) Obstructive sleep apnea (adult) (pediatric) S/P ventriculoperitoneal shunt Presence of cerebrospinal fluid drainage device Chronic osteomyelitis of pelvic region, unspecified laterality (HCC) Recurrent ventral hernia- Primary Incisional hernia without mention of obstruction or gangrene Preoperative examination Preoperative examination, unspecified Parastomal hernia without obstruction or gangrene Hernia of unspecified site of abdominal cavity without mention of obstruction or gangrene NIGEL (obstructive sleep apnea) Obstructive sleep apnea (adult) (pediatric) G tube feedings (HCC) Gastrostomy status Acute post-operative pain Metabolic acidosis Acidosis Acute postoperative respiratory insufficiency Other pulmonary insufficiency, not elsewhere classified, following trauma and surgery Dysphagia Dysphagia, unspecified Friction injury to skin Pre-op evaluation- Primary Preoperative examination, unspecified NIGEL (obstructive sleep apnea) Obstructive sleep apnea (adult) (pediatric) Preoperative examination Preoperative examination, unspecified Parastomal hernia without obstruction or gangrene Hernia of unspecified site of abdominal cavity without mention of obstruction or gangrene G tube feedings (HCC) Gastrostomy status Colostomy present (HCC) Spina bifida of lumbosacral region with hydrocephalus (HCC) S/P ventriculoperitoneal shunt Presence of cerebrospinal fluid drainage device Neurogenic bladder Neurogenic bladder, NOS Spina bifida, unspecified hydrocephalus presence, unspecified spinal region ([facility])- Primary documented in this encounter [facility] note* Diagnosis Renal stone- Primary Calculus of kidney Sepsis, due to unspecified organism, unspecified whether acute organ dysfunction present (HCC) G tube feedings (HCC) Gastrostomy status Spina bifida, unspecified hydrocephalus presence, unspecified spinal region ([facility]) Therapeutic drug monitoring Encounter for therapeutic drug monitoring Sepsis (HCC) Pre-operative examination- Primary Preoperative examination, unspecified Bladder stone Other calculus in bladder Spina bifida of lumbosacral region with hydrocephalus (HCC) Colostomy present (HCC) G tube feedings (HCC) Gastrostomy status Suprapubic catheter (HCC) Other cystostomy status NIGEL (obstructive sleep apnea) Obstructive sleep apnea (adult) (pediatric) S/P ventriculoperitoneal shunt Presence of cerebrospinal fluid drainage device Chronic osteomyelitis of pelvic region, unspecified laterality (HCC) Recurrent ventral hernia- Primary Incisional hernia without mention of obstruction or gangrene Preoperative examination Preoperative examination, unspecified Parastomal hernia without obstruction or gangrene Hernia of unspecified site of abdominal cavity without mention of obstruction or gangrene NIGEL (obstructive sleep apnea) Obstructive sleep apnea (adult) (pediatric) G tube feedings (HCC) Gastrostomy status Acute post-operative pain Metabolic acidosis Acidosis Acute postoperative respiratory insufficiency Other pulmonary insufficiency, not elsewhere classified, following trauma and surgery Dysphagia Dysphagia, unspecified Friction injury to skin Pre-op evaluation- Primary Preoperative examination, unspecified NIGEL (obstructive sleep apnea) Obstructive sleep apnea (adult) (pediatric) Preoperative examination Preoperative examination, unspecified Parastomal hernia without obstruction or gangrene Hernia of unspecified site of abdominal cavity without mention of obstruction or gangrene G tube feedings (HCC) Gastrostomy status Colostomy present (HCC) Spina bifida of lumbosacral region with hydrocephalus ([facility]) S/P ventriculoperitoneal shunt Presence of cerebrospinal fluid drainage device Neurogenic bladder Neurogenic bladder, NOS Presence of suprapubic catheter (HCC)- Primary Other cystostomy status Neurogenic bladder Neurogenic bladder, NOS documented in this encounter [facility] note* Diagnosis Renal stone- Primary Calculus of kidney Sepsis, due to unspecified organism, unspecified whether acute organ dysfunction present (HCC) G tube feedings (HCC) Gastrostomy status Spina bifida, unspecified hydrocephalus presence, unspecified spinal region ([facility]) Therapeutic drug monitoring Encounter for therapeutic drug monitoring Sepsis ([facility]) Pre-operative examination- Primary Preoperative examination, unspecified Bladder stone Other calculus in bladder Spina bifida of lumbosacral region with hydrocephalus (HCC) Colostomy present (HCC) G tube feedings (HCC) Gastrostomy status Suprapubic catheter (HCC) Other cystostomy status NIGEL (obstructive sleep apnea) Obstructive sleep apnea (adult) (pediatric) S/P ventriculoperitoneal shunt Presence of cerebrospinal fluid drainage device Chronic osteomyelitis of pelvic region, unspecified laterality (HCC) Recurrent ventral hernia- Primary Incisional hernia without mention of obstruction or gangrene Preoperative examination Preoperative examination, unspecified Parastomal hernia without obstruction or gangrene Hernia of unspecified site of abdominal cavity without mention of obstruction or gangrene NIGEL (obstructive sleep apnea) Obstructive sleep apnea (adult) (pediatric) G tube feedings (HCC) Gastrostomy status Acute post-operative pain Metabolic acidosis Acidosis Acute postoperative respiratory insufficiency Other pulmonary insufficiency, not elsewhere classified, following trauma and surgery Dysphagia Dysphagia, unspecified Friction injury to skin Pre-op evaluation- Primary Preoperative examination, unspecified NIGEL (obstructive sleep apnea) Obstructive sleep apnea (adult) (pediatric) Preoperative examination Preoperative examination, unspecified Parastomal hernia without obstruction or gangrene Hernia of unspecified site of abdominal cavity without mention of obstruction or gangrene G tube feedings (HCC) Gastrostomy status Colostomy present (HCC) Spina bifida of lumbosacral region with hydrocephalus (HCC) S/P ventriculoperitoneal shunt Presence of cerebrospinal fluid drainage device Neurogenic bladder Neurogenic bladder, NOS Spina bifida with hydrocephalus, unspecified spinal region (HCC) Cloudy urine Other nonspecific finding on examination of urine Sinusitis, unspecified chronicity, unspecified location documented in this encounter [facility] note* Diagnosis Renal stone- Primary Calculus of kidney Sepsis, due to unspecified organism, unspecified whether acute organ dysfunction present (HCC) G tube feedings (HCC) Gastrostomy status Spina bifida, unspecified hydrocephalus presence, unspecified spinal region ([facility]) Therapeutic drug monitoring Encounter for therapeutic drug monitoring Sepsis ([facility]) Pre-operative examination- Primary Preoperative examination, unspecified Bladder stone Other calculus in bladder Spina bifida of lumbosacral region with hydrocephalus (HCC) Colostomy present (HCC) G tube feedings (HCC) Gastrostomy status Suprapubic catheter (HCC) Other cystostomy status NIGEL (obstructive sleep apnea) Obstructive sleep apnea (adult) (pediatric) S/P ventriculoperitoneal shunt Presence of cerebrospinal fluid drainage device Chronic osteomyelitis of pelvic region, unspecified laterality (HCC) Recurrent ventral hernia- Primary Incisional hernia without mention of obstruction or gangrene Preoperative examination Preoperative examination, unspecified Parastomal hernia without obstruction or gangrene Hernia of unspecified site of abdominal cavity without mention of obstruction or gangrene NIGEL (obstructive sleep apnea) Obstructive sleep apnea (adult) (pediatric) G tube feedings (HCC) Gastrostomy status Acute post-operative pain Metabolic acidosis Acidosis Acute postoperative respiratory insufficiency Other pulmonary insufficiency, not elsewhere classified, following trauma and surgery Dysphagia Dysphagia, unspecified Friction injury to skin Pre-op evaluation- Primary Preoperative examination, unspecified NIGEL (obstructive sleep apnea) Obstructive sleep apnea (adult) (pediatric) Preoperative examination Preoperative examination, unspecified Parastomal hernia without obstruction or gangrene Hernia of unspecified site of abdominal cavity without mention of obstruction or gangrene G tube feedings (HCC) Gastrostomy status Colostomy present (HCC) Spina bifida of lumbosacral region with hydrocephalus (HCC) S/P ventriculoperitoneal shunt Presence of cerebrospinal fluid drainage device Neurogenic bladder Neurogenic bladder, NOS Paraplegia (HCC)- Primary Paraplegia Neurogenic bladder Neurogenic bladder, NOS Neurogenic bowel Urinary retention Retention of urine, unspecified Spina bifida of thoracolumbar region with hydrocephalus ([facility]) documented in this encounter [facility] note* Diagnosis Renal stone- Primary Calculus of kidney Sepsis, due to unspecified organism, unspecified whether acute organ dysfunction present (HCC) G tube feedings (HCC) Gastrostomy status Spina bifida, unspecified hydrocephalus presence, unspecified spinal region ([facility]) Therapeutic drug monitoring Encounter for therapeutic drug monitoring Sepsis ([facility]) Pre-operative examination- Primary Preoperative examination, unspecified Bladder stone Other calculus in bladder Spina bifida of lumbosacral region with hydrocephalus (HCC) Colostomy present (HCC) G tube feedings (HCC) Gastrostomy status Suprapubic catheter (HCC) Other cystostomy status NIGEL (obstructive sleep apnea) Obstructive sleep apnea (adult) (pediatric) S/P ventriculoperitoneal shunt Presence of cerebrospinal fluid drainage device Chronic osteomyelitis of pelvic region, unspecified laterality (HCC) Recurrent ventral hernia- Primary Incisional hernia without mention of obstruction or gangrene Preoperative examination Preoperative examination, unspecified Parastomal hernia without obstruction or gangrene Hernia of unspecified site of abdominal cavity without mention of obstruction or gangrene NIGEL (obstructive sleep apnea) Obstructive sleep apnea (adult) (pediatric) G tube feedings (HCC) Gastrostomy status Acute post-operative pain Metabolic acidosis Acidosis Acute postoperative respiratory insufficiency Other pulmonary insufficiency, not elsewhere classified, following trauma and surgery Dysphagia Dysphagia, unspecified Friction injury to skin Pre-op evaluation- Primary Preoperative examination, unspecified NIGEL (obstructive sleep apnea) Obstructive sleep apnea (adult) (pediatric) Preoperative examination Preoperative examination, unspecified Parastomal hernia without obstruction or gangrene Hernia of unspecified site of abdominal cavity without mention of obstruction or gangrene G tube feedings (HCC) Gastrostomy status Colostomy present (HCC) Spina bifida of lumbosacral region with hydrocephalus (HCC) S/P ventriculoperitoneal shunt Presence of cerebrospinal fluid drainage device Neurogenic bladder Neurogenic bladder, NOS Presence of suprapubic catheter (HCC) Other cystostomy status Neurogenic bladder Neurogenic bladder, NOS documented in this encounter [facility] note* Diagnosis Renal stone- Primary Calculus of kidney Sepsis, due to unspecified organism, unspecified whether acute organ dysfunction present (HCC) G tube feedings (HCC) Gastrostomy status Spina bifida, unspecified hydrocephalus presence, unspecified spinal region ([facility]) Therapeutic drug monitoring Encounter for therapeutic drug monitoring Sepsis ([facility]) Pre-operative examination- Primary Preoperative examination, unspecified Bladder stone Other calculus in bladder Spina bifida of lumbosacral region with hydrocephalus (HCC) Colostomy present (HCC) G tube feedings (HCC) Gastrostomy status Suprapubic catheter (HCC) Other cystostomy status NIGEL (obstructive sleep apnea) Obstructive sleep apnea (adult) (pediatric) S/P ventriculoperitoneal shunt Presence of cerebrospinal fluid drainage device Chronic osteomyelitis of pelvic region, unspecified laterality (HCC) Recurrent ventral hernia- Primary Incisional hernia without mention of obstruction or gangrene Preoperative examination Preoperative examination, unspecified Parastomal hernia without obstruction or gangrene Hernia of unspecified site of abdominal cavity without mention of obstruction or gangrene NIGEL (obstructive sleep apnea) Obstructive sleep apnea (adult) (pediatric) G tube feedings (HCC) Gastrostomy status Acute post-operative pain Metabolic acidosis Acidosis Acute postoperative respiratory insufficiency Other pulmonary insufficiency, not elsewhere classified, following trauma and surgery Dysphagia Dysphagia, unspecified Friction injury to skin Pre-op evaluation- Primary Preoperative examination, unspecified NIGEL (obstructive sleep apnea) Obstructive sleep apnea (adult) (pediatric) Preoperative examination Preoperative examination, unspecified Parastomal hernia without obstruction or gangrene Hernia of unspecified site of abdominal cavity without mention of obstruction or gangrene G tube feedings (HCC) Gastrostomy status Colostomy present (HCC) Spina bifida of lumbosacral region with hydrocephalus (HCC) S/P ventriculoperitoneal shunt Presence of cerebrospinal fluid drainage device Neurogenic bladder Neurogenic bladder, NOS Screening for genitourinary condition Screening for other and unspecified genitourinary condition [facility] Diagnosis Renal stone- Primary Calculus of kidney Sepsis, due to unspecified organism, unspecified whether acute organ dysfunction present (HCC) G tube feedings (HCC) Gastrostomy status Spina bifida, unspecified hydrocephalus presence, unspecified spinal region ([facility]) Therapeutic drug monitoring Encounter for therapeutic drug monitoring Sepsis ([facility]) Pre-operative examination- Primary Preoperative examination, unspecified Bladder stone Other calculus in bladder Spina bifida of lumbosacral region with hydrocephalus ([facility]) Colostomy present ([facility]) G tube feedings ([facility]) Gastrostomy status Suprapubic catheter ([facility]) Other cystostomy status NIGEL (obstructive sleep apnea) Obstructive sleep apnea (adult) (pediatric) S/P ventriculoperitoneal shunt Presence of cerebrospinal fluid drainage device Chronic osteomyelitis of pelvic region, unspecified laterality ([facility]) Recurrent ventral hernia- Primary Incisional hernia without mention of obstruction or gangrene Preoperative examination Preoperative examination, unspecified Parastomal hernia without obstruction or gangrene Hernia of unspecified site of abdominal cavity without mention of obstruction or gangrene NIGEL (obstructive sleep apnea) Obstructive sleep apnea (adult) (pediatric) G tube feedings ([facility]) Gastrostomy status Acute post-operative pain Metabolic acidosis Acidosis Acute postoperative respiratory insufficiency Other pulmonary insufficiency, not elsewhere classified, following trauma and surgery Dysphagia Dysphagia, unspecified Friction injury to skin Pre-op evaluation- Primary Preoperative examination, unspecified NIGEL (obstructive sleep apnea) Obstructive sleep apnea (adult) (pediatric) Preoperative examination Preoperative examination, unspecified Parastomal hernia without obstruction or gangrene Hernia of unspecified site of abdominal cavity without mention of obstruction or gangrene G tube feedings ([facility]) Gastrostomy status Colostomy present ([facility]) Spina bifida of lumbosacral region with hydrocephalus ([facility]) S/P ventriculoperitoneal shunt Presence of cerebrospinal fluid drainage device Neurogenic bladder Neurogenic bladder, NOS On tube feeding diet documented in this encounter [facility] note* Diagnosis Renal stone- Primary Calculus of kidney Sepsis, due to unspecified organism, unspecified whether acute organ dysfunction present ([facility]) G tube feedings ([facility]) Gastrostomy status Spina bifida, unspecified hydrocephalus presence, unspecified spinal region (HCC) Therapeutic drug monitoring Encounter for therapeutic drug monitoring Sepsis (HCC) Pre-operative examination- Primary Preoperative examination, unspecified Bladder stone Other calculus in bladder Spina bifida of lumbosacral region with hydrocephalus (HCC) Colostomy present (HCC) G tube feedings (HCC) Gastrostomy status Suprapubic catheter (HCC) Other cystostomy status NIGEL (obstructive sleep apnea) Obstructive sleep apnea (adult) (pediatric) S/P ventriculoperitoneal shunt Presence of cerebrospinal fluid drainage device Chronic osteomyelitis of pelvic region, unspecified laterality (HCC) Recurrent ventral hernia- Primary Incisional hernia without mention of obstruction or gangrene Preoperative examination Preoperative examination, unspecified Parastomal hernia without obstruction or gangrene Hernia of unspecified site of abdominal cavity without mention of obstruction or gangrene NIGEL (obstructive sleep apnea) Obstructive sleep apnea (adult) (pediatric) G tube feedings (HCC) Gastrostomy status Acute post-operative pain Metabolic acidosis Acidosis Acute postoperative respiratory insufficiency Other pulmonary insufficiency, not elsewhere classified, following trauma and surgery Dysphagia Dysphagia, unspecified Friction injury to skin Pre-op evaluation- Primary Preoperative examination, unspecified NIGEL (obstructive sleep apnea) Obstructive sleep apnea (adult) (pediatric) Preoperative examination Preoperative examination, unspecified Parastomal hernia without obstruction or gangrene Hernia of unspecified site of abdominal cavity without mention of obstruction or gangrene G tube feedings (HCC) Gastrostomy status Colostomy present (HCC) Spina bifida of lumbosacral region with hydrocephalus (HCC) S/P ventriculoperitoneal shunt Presence of cerebrospinal fluid drainage device Neurogenic bladder Neurogenic bladder, NOS Spina bifida, unspecified hydrocephalus presence, unspecified spinal region (HCC)- Primary G tube feedings (HCC) Gastrostomy status Viral URI Acute upper respiratory infections of unspecified site Screening for lipoid disorders Screening for iron deficiency anemia Vitamin D deficiency Unspecified vitamin D deficiency documented in this encounter [facility] course Narrative No data available for this section [facility] Hospital Discharge instructions No data available for this section [facility] Progress note No data available for this section [facility] Reason for referral (narrative)* Diagnostic Procedure Only (Routine) - Closed Specialty Diagnoses / Procedures Referred By Zuleima t Referred To Contact US IMAGING Diagnoses Neurogenic bladder Procedures US KIDNEY/BLADDER US RETROPERITONEAL REAL TIME W/IMAGE COMPLETE Kelsie Giraldo MD [address] [place] [address] Us Imaging Referral ID Status Reason Start Date Expiration Date V isits Requested Visits Authorized [id number] Closed Auto-Generate d Referral 03/17/2022 10/22/2022 1 1 [facility] for referral (narrative)* Outpatient Procedure (Routine) - Pending Review Specialty Diagnoses / Procedures Referred By Zuleima nugent Referred To Contact [facility] Diagnoses Ulnar neuropathy of both upper extremities Procedures EMG(NEURO/NI) NERVE CONDUCTION STUDIES 9-10 STUDIES Kelsie Giraldo MD [address] [place] [address] [facility] [address] [place] [address] Referral ID Status Reason Start Date Expiration Date Visits Requested Visits Authorized [id number] Pending Review Auto-Generat ed Referral 03/29/2022 03/29/2023 1 1 [facility] for referral (narrative)* Outpatient Procedure (Routine) - Pending Review Specialty Diagnoses / Procedures [facility] Diagnoses Preoperative examination Parastomal hernia without obstruction or gangrene Procedures ECG COMPLETE ECG ROUTINE ECG W/LEAST 12 LDS W/I&R Patricia Montalvo APRN.[employer] [address] [id number] [facility] [address] [place] [address] Referral ID Status Reason Start Date Expiration Date Visits Requested Visits Authorized [id number] Pending Review Auto-Generat ed Referral 12/21/2022 12/21/2023 1 1 * Consult, Test, Treat (Routine) - Pending Review Specialty Diagnoses / Procedures Referred By Contac t Referred To Contact Diagnoses Preoperative examination Parastomal hernia without obstruction or gangrene Procedures CONSULT TO [facility] BEHAVIORAL MEDICINE OFFICE/OUTPATIENT [facility] 60-74 MINUTES Patricia Montalvo APRN.CNP [address] [place] [id number] Referral ID Status Reason Start Date Expiration Date Visits Requested Visits Authorized [id number] Pending Review PCP Requested Referral 12/21/2022 12/21/2023 1 1 [facility] for referral (narrative)* Outpatient Procedure (Routine) - Closed Specialty Diagnoses / Procedures Referred By Contac t Referred To Contact [facility] Diagnoses Tachycardia Procedures ECG COMPLETE ECG ROUTINE ECG W/LEAST 12 LDS W/I&R Kelsie Giraldo MD [address] [place] [address] [facility] [address] [address] Referral ID Status Reason Start Date Expiration Date V isits Requested Visits Authorized [id number] Closed Auto-Generate d Referral 08/25/2023 08/24/2024 1 1 T [facility] for referral (narrative)* Diagnostic Procedure Only (Routine) - Pending Review Specialty Diagnoses / Procedures Referred By Contac t Referred To Contact US IMAGING Diagnoses Neurogenic bladder Procedures US KIDNEY/BLADDER US RETROPERITONEAL REAL TIME W/IMAGE COMPLETE Kelsie Giraldo MD [address] [facility] [place] [address] [place] [id number] Referral ID Status Reason Start Date Expiration Date Visits Requested Visits Authorized [id number] Pending Review Auto-Generat ed Referral 01/04/2024 02/02/2025 1 1 T [facility] for referral (narrative)* Diagnostic Procedure Only (Routine) - Closed Specialty Diagnoses / Procedures Referred By Contac t Referred To Contact US IMAGING Diagnoses Neurogenic bladder Procedures US KIDNEY/BLADDER US RETROPERITONEAL REAL TIME W/IMAGE COMPLETE Kelsie Giraldo MD [address] [facility] [place] [address] [place] [address] Referral ID Status Reason Start Date Expiration Date V isits Requested Visits Authorized [id number] Closed Auto-Generate d Referral 01/04/2024 02/02/2025 1 1 [facility] for referral (narrative)No reason for referral [facility] Narrative* Diagnostic Procedure Only (Routine) - Closed Specialty Diagnoses / Procedures Referred By Contac t Referred To Contact US IMAGING Diagnoses Neurogenic bladder Procedures US KIDNEY/BLADDER US RETROPERITONEAL REAL TIME W/IMAGE COMPLETE Kelsie Giraldo MD [address] [facility] [place] [address] Us Imaging Referral ID Status Reason Start Date Expiration Date V isits Requested Visits Authorized [id number] Closed Auto-Generate d Referral 03/17/2022 10/22/2022 1 1 [facility] for visit Narrative* Diagnostic Procedure Only (Routine) - Closed Specialty Diagnoses / Procedures Referred By Contac t Referred To Contact US IMAGING Diagnoses Neurogenic bladder Procedures US KIDNEY/BLADDER US RETROPERITONEAL REAL TIME W/IMAGE COMPLETE Kelsie Giraldo MD [address] [facility] [place] [address] Us Imaging [id number] Referral ID Status Reason Start Date Expiration Date V isits Requested Visits Authorized [id number] Closed Auto-Generate d Referral 01/04/2024 02/02/2025 1 1 [facility] for visit Narrative* Diagnostic Procedure Only (Routine) - Closed Specialty Diagnoses / Procedures Referred By Contac t Referred To Contact US IMAGING Diagnoses Presence of suprapubic catheter (HCC) Neurogenic bladder Procedures US KIDNEY/BLADDER US RETROPERITONEAL REAL TIME W/IMAGE COMPLETE Kelsie Giraldo MD [address] [place] [address] Phone: tel: fax: [place] [address] Referral ID Status Reason Start Date Expiration Date V isits Requested Visits Authorized [id number] Closed Auto-Generate d Referral 01/16/2025 02/01/2026 1 1 [facility] Advance Directives Documents on File Type Date Recorded 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 Advance Directive(s) 10/20/2021 2:00 PM Advance Directive(s) 01/01/2020 10:14 AM Advance Directive(s) 01/01/2020 11:51 AM Advance Directive(s) 01/01/2020 11:55 AM Advance Directive(s) 12/21/2019 9:06 AM Advance Directive(s) 11/28/2019 2:23 PM Documents on File Type Date Recorded 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 Advance Directive(s) 10/20/2021 2:00 PM Advance Directive(s) 01/01/2020 10:14 AM Advance Directive(s) 01/01/2020 11:51 AM Advance Directive(s) 01/01/2020 11:55 AM Advance Directive(s) 12/21/2019 9:06 AM Advance Directive(s) 11/28/2019 2:23 PM Documents on File Type Date Recorded 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 Advance Directive(s) 01/01/2020 11:55 AM Documents on File Type Date Recorded 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 Advance Directive(s) 01/01/2020 11:55 AM Advance Directive Response Recorded Date/ Time Advance Directives No January 08 015 10:28am Living Will No October 25 9 7:55pm Power of Patient Portal Concierge No October 25 7:55pm Advance Directive Response Recorded Date/ Time Advance Directives No January 08 015 10:28am Living Will Yes February 20, 2024 8:42pm Power of Patient Portal Concierge Yes February 19 8:42pm Name of Medical Power of Patient Portal Concierge Billie Aguirre February 20, 2024 8:42pm Advance Directive Response Recorded Date/ Time Advance Directives No January 08 10:28am Summary Purpose Family History Relationship Condition Age at Onset Recorded Date/T hill Unknown Family History?- Unknown October 8:11pm Family History?- Unknown April 02, 2019 11:10am Reason for Referral Specialty Diagnoses / Procedures Referred By Contac t Referred To Contact Plastic Surgery Diagnoses Open wound of tissue overlying spine, unspecified laterality, initial encounter Paraplegia (HCC) Procedures CONSULT TO PLASTIC SURGERY OFFICE/OUTPATIENT [facility] 60 MINUTES Mando Gibbs MD [address] [id number] Lillie Riggs MD [facility] [place] [address] Referral ID Status Reason Start Date Expiration Date Visits Requested Visits Authorized [id number] Authorized PCP Requested Referral 01/26/2024 01/25/2025 1 1 Specialty Diagnoses / Procedures Referred By Contac t Referred To Contact Nutrition Diagnoses G tube feedings (HCC) Procedures CONSULT TO NUTRITION THERAPY MEDICAL NUTRITION ASSMT&IVNTJ INDIV EACH 15 [place] MEDICAL NUTRITION ASSMT&IVNTJ INDIV EACH 15 [place] MEDICAL NUTRITION ASSMT&IVNTJ INDIV EACH 15 [place] MEDICAL NUTRITION ASSMT&IVNTJ INDIV EACH 15 [place] Nikita Gauthier MD [address] [place] [address] Referral ID Status Reason Start Date Expiration Date Visits Requested Visits Authorized [id number] Pending Review PCP Requested Referral 07/31/2023 07/30/2024 1 1 Specialty Diagnoses / Procedures Referred By Contac t Referred To Contact Colon and Rectal Surgery Diagnoses Parastomal hernia without obstruction or gangrene Procedures CONSULT TO COLO-RECTAL SURGERY OFFICE/OUTPATIENT [facility] 60-74 MINUTES Marifer Dowd MD [address] [id number] Harry Shore MD [address] [place] [address] Referral ID Status Reason Start Date Expiration Date Visits Requested Visits Authorized [id number] Pending Review PCP Requested Referral 12/19/2022 12/19/2023 1 1 Chief Complaint and Reason for Visit Chief Complaint Sleep apnea CHRONIC RESPIRATORY FAILURE Reason for Visit Chronic respiratory failure requiring treatment with nocturnal BPAP by mask Neuromuscular respiratory weakness Obstructive Sleep Apnea-Hypopnea Syndrome Chief Complaint gtube replacement Chief Complaint Admit Date NIGEL Follow up February 27, 2025 2:47pm 3 M FU June 05, 2025 2: 55pm Reason for Visit Admit Date Depression February 27, 2025 2:47pm Chronic respiratory failure with hypoxia and hypercapnia February 27, 2025 2:47pm Neuromuscular respiratory weakness February 272024 2:47pm Spina bifida February 27, 2025 2:47pm Chronic respiratory failure with hypoxia and hypercapnia June 05, 2025 2:55pm Neuromuscular respiratory weakness Augus t 2024 2:55pm Spina bifida June 05, 2025 2: 55pm Additional Source Comments Source Comments (unrecognize d section and content) In the event this informatio n is protected by the Federal Confidentiality of Alcohol and Drug Abuse Patient Records regulations: The Federal rules restrict any use of the information to criminally investigate or prosecute any alcohol or drug abuse patient.[facility] the event this information is protected by the Federal Confidentiality of Alcohol and Drug Abuse Patient Records regulations: The Federal rules restrict any use of the information to criminally investigate or prosecute any alcohol or drug abuse patient.[facility] the event this information is protected by the Federal Confidentiality of Alcohol and Drug Abuse Patient Records regulations: The Federal rules restrict any use of the information to criminally investigate or prosecute any alcohol or drug abuse patient.[facility] the event this information is protected by the Federal Confidentiality of Alcohol and Drug Abuse Patient Records regulations: The Federal rules restrict any use of the information to criminally investigate or prosecute any alcohol or drug abuse patient.[facility] the event this information is protected by the Federal Confidentiality of Alcohol and Drug Abuse Patient Records regulations: The Federal rules restrict any use of the information to criminally investigate or prosecute any alcohol or drug abuse patient.[facility] the event this information is protected by the Federal Confidentiality of Alcohol and Drug Abuse Patient Records regulations: The Federal rules restrict any use of the information to criminally investigate or prosecute any alcohol or drug abuse patient.[facility] the event this information is protected by the Federal Confidentiality of Alcohol and Drug Abuse Patient Records regulations: The Federal rules restrict any use of the information to criminally investigate or prosecute any alcohol or drug abuse patient.[facility] the event this information is protected by the Federal Confidentiality of Alcohol and Drug Abuse Patient Records regulations: The Federal rules restrict any use of the information to criminally investigate or prosecute any alcohol or drug abuse patient.[facility] the event this information is protected by the Federal Confidentiality of Alcohol and Drug Abuse Patient Records regulations: The Federal rules restrict any use of the information to criminally investigate or prosecute any alcohol or drug abuse patient.[facility] Hospital[facility] the event this information is protected by the Federal Confidentiality of Alcohol and Drug Abuse Patient Records regulations: The Federal rules restrict any use of the information to criminally investigate or prosecute any alcohol or drug abuse patient.[facility] the event this information is protected by the Federal Confidentiality of Alcohol and Drug Abuse Patient Records regulations: The Federal rules restrict any use of the information to criminally investigate or prosecute any alcohol or drug abuse patient.[facility] Hospital[facility] the event this information is protected by the Federal Confidentiality of Alcohol and Drug Abuse Patient Records regulations: The Federal rules restrict any use of the information to criminally investigate or prosecute any alcohol or drug abuse patient.[facility] Hospital[facility] the event this information is protected by the Federal Confidentiality of Alcohol and Drug Abuse Patient Records regulations: The Federal rules restrict any use of the information to criminally investigate or prosecute any alcohol or drug abuse patient.[facility] Hospital[facility] the event this information is protected by the Federal Confidentiality of Alcohol and Drug Abuse Patient Records regulations: The Federal rules restrict any use of the information to criminally investigate or prosecute any alcohol or drug abuse patient.[facility] HospitalIn the event this information is protected by the Federal Confidentiality of Alcohol and Drug Abuse Patient Records regulations: The Federal rules restrict any use of the information to criminally investigate or prosecute any alcohol or drug abuse patient.[facility] HospitalIn the event this information is protected by the Federal Confidentiality of Alcohol and Drug Abuse Patient Records regulations: The Federal rules restrict any use of the information to criminally investigate or prosecute any alcohol or drug abuse patient.[facility] HospitalIn the event this information is protected by the Federal Confidentiality of Alcohol and Drug Abuse Patient Records regulations: The Federal rules restrict any use of the information to criminally investigate or prosecute any alcohol or drug abuse patient.[facility] HospitalIn the event this information is protected by the Federal Confidentiality of Alcohol and Drug Abuse Patient Records regulations: The Federal rules restrict any use of the information to criminally investigate or prosecute any alcohol or drug abuse patient.[facility] HospitalIn the event this information is protected by the Federal Confidentiality of Alcohol and Drug Abuse Patient Records regulations: The Federal rules restrict any use of the information to criminally investigate or prosecute any alcohol or drug abuse patient.[facility] HospitalIn the event this information is protected by the Federal Confidentiality of Alcohol and Drug Abuse Patient Records regulations: The Federal rules restrict any use of the information to criminally investigate or prosecute any alcohol or drug abuse patient.[facility] HospitalIn the event this information is protected by the Federal Confidentiality of Alcohol and Drug Abuse Patient Records regulations: The Federal rules restrict any use of the information to criminally investigate or prosecute any alcohol or drug abuse patient.[facility] HospitalIn the event this information is protected by the Federal Confidentiality of Alcohol and Drug Abuse Patient Records regulations: The Federal rules restrict any use of the information to criminally investigate or prosecute any alcohol or drug abuse patient.[facility] HospitalIn the event this information is protected by the Federal Confidentiality of Alcohol and Drug Abuse Patient Records regulations: The Federal rules restrict any use of the information to criminally investigate or prosecute any alcohol or drug abuse patient.[facility] HospitalIn the event this information is protected by the Federal Confidentiality of Alcohol and Drug Abuse Patient Records regulations: The Federal rules restrict any use of the information to criminally investigate or prosecute any alcohol or drug abuse patient.[facility] HospitalIn the event this information is protected by the Federal Confidentiality of Alcohol and Drug Abuse Patient Records regulations: The Federal rules restrict any use of the information to criminally investigate or prosecute any alcohol or drug abuse patient.[facility] HospitalIn the event this information is protected by the Federal Confidentiality of Alcohol and Drug Abuse Patient Records regulations: The Federal rules restrict any use of the information to criminally investigate or prosecute any alcohol or drug abuse patient.[facility] HospitalIn the event this information is protected by the Federal Confidentiality of Alcohol and Drug Abuse Patient Records regulations: The Federal rules restrict any use of the information to criminally investigate or prosecute any alcohol or drug abuse patient.[facility] HospitalIn the event this information is protected by the Federal Confidentiality of Alcohol and Drug Abuse Patient Records regulations: The Federal rules restrict any use of the information to criminally investigate or prosecute any alcohol or drug abuse patient.[facility] HospitalIn the event this information is protected by the Federal Confidentiality of Alcohol and Drug Abuse Patient Records regulations: The Federal rules restrict any use of the information to criminally investigate or prosecute any alcohol or drug abuse patient.[facility] HospitalIn the event this information is protected by the Federal Confidentiality of Alcohol and Drug Abuse Patient Records regulations: The Federal rules restrict any use of the information to criminally investigate or prosecute any alcohol or drug abuse patient.[facility] HospitalIn the event this information is protected by the Federal Confidentiality of Alcohol and Drug Abuse Patient Records regulations: The Federal rules restrict any use of the information to criminally investigate or prosecute any alcohol or drug abuse patient.[facility] HospitalIn the event this information is protected by the Federal Confidentiality of Alcohol and Drug Abuse Patient Records regulations: The Federal rules restrict any use of the information to criminally investigate or prosecute any alcohol or drug abuse patient.[facility] HospitalIn the event this information is protected by the Federal Confidentiality of Alcohol and Drug Abuse Patient Records regulations: The Federal rules restrict any use of the information to criminally investigate or prosecute any alcohol or drug abuse patient.[facility] HospitalIn the event this information is protected by the Federal Confidentiality of Alcohol and Drug Abuse Patient Records regulations: The Federal rules restrict any use of the information to criminally investigate or prosecute any alcohol or drug abuse patient.[facility] HospitalIn the event this information is protected by the Federal Confidentiality of Alcohol and Drug Abuse Patient Records regulations: The Federal rules restrict any use of the information to criminally investigate or prosecute any alcohol or drug abuse patient.[facility] HospitalIn the event this information is protected by the Federal Confidentiality of Alcohol and Drug Abuse Patient Records regulations: The Federal rules restrict any use of the information to criminally investigate or prosecute any alcohol or drug abuse patient.[facility] HospitalIn the event this information is protected by the Federal Confidentiality of Alcohol and Drug Abuse Patient Records regulations: The Federal rules restrict any use of the information to criminally investigate or prosecute any alcohol or drug abuse patient.[facility] HospitalIn the event this information is protected by the Federal Confidentiality of Alcohol and Drug Abuse Patient Records regulations: The Federal rules restrict any use of the information to criminally investigate or prosecute any alcohol or drug abuse patient.[facility] HospitalIn the event this information is protected by the Federal Confidentiality of Alcohol and Drug Abuse Patient Records regulations: The Federal rules restrict any use of the information to criminally investigate or prosecute any alcohol or drug abuse patient.[facility] HospitalIn the event this information is protected by the Federal Confidentiality of Alcohol and Drug Abuse Patient Records regulations: The Federal rules restrict any use of the information to criminally investigate or prosecute any alcohol or drug abuse patient.[facility] HospitalIn the event this information is protected by the Federal Confidentiality of Alcohol and Drug Abuse Patient Records regulations: The Federal rules restrict any use of the information to criminally investigate or prosecute any alcohol or drug abuse patient.[facility] HospitalIn the event this information is protected by the Federal Confidentiality of Alcohol and Drug Abuse Patient Records regulations: The Federal rules restrict any use of the information to criminally investigate or prosecute any alcohol or drug abuse patient.[facility] HospitalIn the event this information is protected by the Federal Confidentiality of Alcohol and Drug Abuse Patient Records regulations: The Federal rules restrict any use of the information to criminally investigate or prosecute any alcohol or drug abuse patient.[facility] HospitalIn the event this information is protected by the Federal Confidentiality of Alcohol and Drug Abuse Patient Records regulations: The Federal rules restrict any use of the information to criminally investigate or prosecute any alcohol or drug abuse patient.[facility] HospitalIn the event this information is protected by the Federal Confidentiality of Alcohol and Drug Abuse Patient Records regulations: The Federal rules restrict any use of the information to criminally investigate or prosecute any alcohol or drug abuse patient.[facility] HospitalIn the event this information is protected by the Federal Confidentiality of Alcohol and Drug Abuse Patient Records regulations: The Federal rules restrict any use of the information to criminally investigate or prosecute any alcohol or drug abuse patient.[facility] HospitalIn the event this information is protected by the Federal Confidentiality of Alcohol and Drug Abuse Patient Records regulations: The Federal rules restrict any use of the information to criminally investigate or prosecute any alcohol or drug abuse patient.[facility] HospitalIn the event this information is protected by the Federal Confidentiality of Alcohol and Drug Abuse Patient Records regulations: The Federal rules restrict any use of the information to criminally investigate or prosecute any alcohol or drug abuse patient.[facility] Care Teams (unrecognized sec tion and content) Cargo Mate Relationship Specialty Start Date End Date Nikita Gramajo IV, MD [address] [place] [address] [id number] PCP - General Family Practice 01/01/20 Cargo Mate Relationship Specialty Start Date End Date Nikita Gramajo IV, MD [address] [place] [address] [phone] PCP - General Family Practice 01/01/20 Cargo Mate Relationship Specialty Start Date End Date Nikita Gramajo IV, MD [address] [place] [address] [phone] PCP - General Family Practice 01/01/20 Cargo Mate Relationship Specialty Start Date End Date Nikita Gramajo IV, MD [address] [place] [address] [id number] PCP - General Family Practice 01/01/20 Cargo Mate Relationship Specialty Start Date End Date Nikita Gramajo IV, MD [address] [place] [address] [phone] PCP - General Family Practice 01/01/20 Cargo Mate Relationship Specialty Start Date End Date Nikita Gramajo IV, MD [address] [place] [address] [phone] PCP - General Family Practice 01/01/20 Cargo Mate Relationship Specialty Start Date End Date Nikita Gramajo DO [address] [place] [address] [phone] PCP - General Family Medicine 11/02/20 (Verdel), [place] [address] 02/24/11 Cargo Mate Relationship Specialty Start Date End Date Nikita Gramajo DO [address] [place] [address] [id number] PCP - General Family Medicine 11/02/20 (Verdel)[place] [id number] 02/24/11 Cargo Mate Relationship Specialty Start Date End Date Nikita Gramajo IV, MD [address] [place] [address] [phone] PCP - General Family Medicine 01/01/20 Cargo Mate Relationship Specialty Start Date End Date Nikita Gramajo IV, MD [address] [place] [address] PCP - General Family Medicine 01/01/20 Cargo Mate Relationship Specialty Start Date End Date Nikita Gramajo IV, MD [address] [place] [address] PCP - General Family Medicine 01/01/20 Cargo Mate Relationship Specialty Start Date End Date Nikita Gramajo IV, MD [address] [place] [address] PCP - General Family Medicine 01/01/20 Team Status: Active Member Role Status Dates Dr. Syed Hernandes , Family Provider Active Dr. Nikita Gramajo DO Primary Care Provider Active Team Status: Inactive Member Role Status Dates Dr. Omi Adams MD Attending Provider Active Team Status: Inactive Member Role Status Dates Dr. Omi Adams MD Attending Provider Active Dr. Nikita Gramajo DO Primary Care Provider Active Cargo Mate Relationship Specialty Start Date End Date Nikita Gramajo IV, DO [address] [place] [address] PCP - General Family Medicine 01/01/20 Cargo Mate Relationship Specialty Start Date End Date Nikita Gramajo IV, DO [address] [place] [address] PCP - General Family Medicine 01/01/20 Cargo Mate Relationship Specialty Start Date End Date Nikita Gramajo IV, DO [address] [place] [address] PCP - General Family Medicine 01/01/20 Cargo Mate Relationship Specialty Start Date End Date Nikita Gramajo IV, DO [address] [place] [address] PCP - General Family Medicine 01/01/20 Cargo Mate Relationship Specialty Start Date End Date Nikita Gramajo IV, [address] [place] [address] PCP - General Family Medicine 01/01/20 Cargo Mate Relationship Specialty Start Date End Date Nikita Gramajo IV [address] [place] [address] PCP - General Family Medicine 01/01/20 Cargo Mate Relationship Specialty Start Date End Date Nikita Gramajo IV [address] [place] [address] PCP - General Family Medicine 01/01/20 Cargo Mate Relationship Specialty Start Date End Date Nikita Gramajo IV, DO [address] [place] [address] [phone] PCP - General Family Medicine 01/01/20 Cargo Mate Relationship Specialty Start Date End Date Nikita Gramajo IV, DO [address] [place] [address] 13728 PCP - General Family Medicine 01/01/20 Cargo Mate Relationship Specialty Start Date End Date Nikita Gramajo IV, DO [address] [place] [address] [phone] PCP - General Family Medicine 01/01/20 Cargo Mate Relationship Specialty Start Date End Date Nikita Gramajo IV, DO [address] [place] [address] 43553 PCP - General Family Medicine 01/01/20 Cargo Mate Relationship Specialty Start Date End Date Nikita Gramajo IV, DO [address] [place] [address] [phone] PCP - General Family Medicine 01/01/20 Cargo Mate Relationship Specialty Start Date End Date Nikita Gramajo IV, DO [address] [place] [address] PCP - General Family Medicine 01/01/20 Cargo Mate Relationship Specialty Start Date End Date Nikita Gramajo IV, DO [address] [place] [address] 96145 PCP - General Family Medicine 01/01/20 Cargo Mate Relationship Specialty Start Date End Date Nikita Gramajo IV, DO [address] [place] [address] 57387 PCP - General Family Medicine 01/01/20 Cargo Mate Relationship Specialty Start Date End Date Nikita Gramajo IV, DO [address] [place] [address] [phone] PCP - General Family Medicine 01/01/[address] [place] [place], [place] [id number] Registered Dietitian Nutrition 01/18/24 Cargo Mate Relationship Specialty Start Date End Date BeltranNikita priest IV, DO [address] [place] [address] [phone] PCP - General Family Medicine 01/01/[address] [place] [address] Registered Dietitian Nutrition 01/18/24 Cargo Mate Relationship Specialty Start Date End Date Nikita Gramajo IV, DO [address] [place] [address] 65346 PCP - General Family Medicine 01/01/[address] [place] [address] Registered Dietitian Nutrition 01/18/24 Cargo Mate Relationship Specialty Start Date End Date Nikita Gramajo IV, DO [address] [place] [address] PCP - General Family Medicine 01/01/[address] [place] [address] Registered Dietitian Nutrition 01/18/24 Cargo Mate Relationship Specialty Start Date End Date Nikita Gramajo IV, DO [facility] [place] [address] PCP - General Family Medicine 01/01/[address] [place] [address] Registered Dietitian Nutrition 01/18/24 Cargo Mate Relationship Specialty Start Date End Date Nikita Gramajo IV, DO [facility] [place] [address] PCP - General Family Medicine 01/01/[address] [place] [address] Registered Dietitian Nutrition 01/18/24 Team Status: Inactive Member Role Status Dates Dr. Nikita Gramajo DO Primary Care Provider Active Dr. Joseph Rios MD Emergency Provider Active Cargo Mate Relationship Specialty Start Date End Date Nikita Gramajo IV, DO [address] [place] [address] PCP - General Family Medicine 01/01/[address] [place] [address] Registered Dietitian Nutrition 01/18/24 Cargo Mate Relationship Specialty Start Date End Date Nikita Gramajo IV, DO [address] [place] [address] 21581 PCP - General Family Medicine 01/01/[address] [place] [address] Registered Dietitian Nutrition 01/18/24 Cargo Mate Relationship Specialty Start Date End Date Nikita Gramajo IV, DO [address] [place] [address] PCP - General Family Medicine 01/01/[address] [place] [address] Registered Dietitian Nutrition 01/18/24 Cargo Mate Relationship Specialty Start Date End Date Nikita Gramajo IV, DO [address] [place] [address] PCP - General Family Medicine 01/01/[address] [place] [address] Registered Dietitian Nutrition 01/18/24 Cargo Mate Relationship Specialty Start Date End Date Nikita Gramajo IV, DO [address] [place] [address] [phone] PCP - General Family Medicine 01/01/[address] [place] [address] Registered Dietitian Nutrition 01/18/24 Cargo Mate Relationship Specialty Start Date End Date Nikita Gramajo IV, DO [address] [place] [address] [phone] PCP - General Family Medicine 01/01/[address] [place] [address] Registered Dietitian Nutrition 01/18/24 Cargo Mate Relationship Specialty Start Date End Date Nikita Gramajo IV, DO [address] [place] [address] PCP - General Family Medicine 01/01/[address] [place] [address] Registered Dietitian Nutrition 01/18/24 Cargo Mate Relationship Specialty Start Date End Date Nikita Gramajo IV, DO [address] [place] [address] PCP - General Family Medicine 01/01/[address] [place] [address] Registered Dietitian Nutrition 01/18/24 Cargo Mate Relationship Specialty Start Date End Date Nikita Gramajo IV, DO [address] [place] [address] 30541 PCP - General Family Medicine 01/01/[address] [place], [place] [address] Registered Dietitian Nutrition 01/18/24 Cargo Mate Relationship Specialty Start Date End Date Nikita Gramajo IV, DO [address] [place] [address] PCP - General Family Medicine 01/01/[address] [place] [address] Registered Dietitian Nutrition 01/18/24 Team Status: Active Member Role/Relationship Status Dates Dr. Syed Hernandes DO Family Provider Active Dr. Nikita Gramajo DO Primary Care Provider Active Team Status: Inactive Member Role/Relationship Status Dates Dr. Nikita Gramajo DO Primary Care Provider Active Start: February 27, 2025 End: February 27, 2025 Dr. Nikita Gramajo DO Referring Provider Active Start: February 27, 2025 End: February 27, 2025 Alexa Peterson NP, SALES FLOOR TEAM LEADER-C Attending Provider Active Start: February 27, 2025 End: February 27, 2025 Team Status: Inactive Member Role/Relationship Status Dates Dr. Nikita Gramajo DO Primary Care Provider Active Start: June 05, 2025 End: June 05, 2025 Dr. Nikita Gramajo DO Referring Provider Active Start: June 05, 2025 End: June 05, 2025 Alexa Peterson NP, SALES FLOOR TEAM LEADER-C Attending Provider Active Start: June 05, 2025 End: June 05, 2025 Reason for Visit (unrecogniz ed section and content) Specialty Diagnoses / Procedures Referred By Zuleima nugent Referred To Contact PHYSICAL MEDICINE AND REHAB Diagnoses Spina Bifida Procedures Consult Nikita Gauthier MD [address] [place] [address] [facility] [address] [place] [address] Referral ID Status Reason Start Date Expiration Date Visits Requested Visits Authorized [id number] Pending Review OON/Self Pay Override 03/25/2022 06/23/2022 1 1 Specialty Diagnoses / Procedures Referred By Contac t Referred To Contact INTERNAL MEDICINE Diagnoses Spina Bifida Procedures UNLISTED THERAPEUTIC PROCEDURE SPECIFY Appointment Nikita Gauthier MD [address] [place] [address] [facility] [address] [place] [address] Referral ID Status Reason Start Date Expiration Date Visits Requested Visits Authorized [id number] Pending Review OON/Self Pay Override 03/18/2022 06/16/2022 1 1 Reason Comments Other Reason Comments Abdominal Pain Emesis Reason Comments New Patient Reason Comments Pre-Op Update +urine cutlure Reason Comments Established Patient Reason Comments 5.23.23 Cure Parastomal hernia re pair 10 hours los 10 Reason Comments Patient Question Reason Comments Consult Specialty Diagnoses / Procedures Referred By Contac t Referred To Contact Colon and Rectal Surgery Diagnoses Parastomal hernia without obstruction or gangrene Procedures CONSULT TO COLO-RECTAL SURGERY OFFICE/OUTPATIENT [facility] 60-74 MINUTES Marifer Dowd MD [address] [place] [id number] Harry Shore MD [address] [place] [id number] Referral ID Status Reason Start Date Expiration Date Visits Requested Visits Authorized [id number] Pending Review PCP Requested Referral 12/19/2022 12/19/2023 1 1 Reason Comments Pre-Op Visit Reason Comments Established Patient Reason Comments G-Tube Feeds Reason Comments Forms Reason Comments Follow Up Specialty Diagnoses / Procedures Referred By Contac t Referred To Contact Diagnoses Preoperative examination Parastomal hernia without obstruction or gangrene Procedures CONSULT TO [facility] BEHAVIORAL MEDICINE OFFICE/OUTPATIENT [facility] 60-74 MINUTES Patricia Montalvo APRN.[employer] ARCHITECT [address] [place] [id number] Referral ID Status Reason Start Date Expiration Date V isits Requested Visits Authorized [id number] Closed PCP Requested Referral 12/21/2022 12/21/2023 1 1 Reason Comments Leg Weakness Reason Comments CMN forms 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 Reason Comments Spina Bifida (unrecognized sect ion and content) No Status Records FoundNo Status Records FoundNo Status Records FoundNo Status Records FoundNo Status Records Found INFORMATION SOURCE (unrecogn ized section and content) DATE CREATED AUTHOR 07/20/2022 [facility] DATE CREATED AUTHOR AUTHOR'S ORGANIZ ATION 03/18/2023 [facility] DATE CREATED AUTHOR AUTHOR'S ORGANIZ ATION 10/12/2023 [facility] DATE CREATED AUTHOR AUTHOR'S ORGANIZ ATION 08/07/2024 [facility] DATE CREATED AUTHOR AUTHOR'S ORGANIZ ATION 03/01/2025 [facility] Care Team (unrecognized sect ion and content) Care Team Personnel Name: NIKITA GRAMAJO DO Position: P4 Physician - Primary Care Member Role: Primary Care Physician Address: Address: [address] [place] [address] Care Team Related Persons Name: JAE AGUIRRE Name: CARLA WENDI Address: [address] Name: WENDI AGUIRRE Address: Home [address] [place] [address] Name: WENDI AGUIRRE Address: [place] [address] Goals (unrecognized section and content) Goals may be documented in a n alternate section FOR RECORDS PERTAINING TO PATIENTS WHO ARE OR HAVE BEEN ENROLLED IN A CHEMICAL DEPENDENCY/SUBSTANCEABUSE PROGRAM, SOME INFORMATION MAY BE OMITTED. This clinical summary was aggregated from multiple sources. Caution should be exercised in using it in the provision of clinical care. This summary normalizes information from multiple sources, and as a consequence, information in this document may materially change the coding, format and clinical context of patient data. In addition, data may be omitted in some cases. CLINICAL DECISIONS SHOULD BE BASED ON THE PRIMARY CLINICAL RECORDS. [employer] provides no warranty or guarantee of the accuracy or completeness of information in this document.
[2025-06-07 10:40] LABS: Differential Indicated SCAN CRITERIA MET; Hematocrit 41.8 % (40-54); Hemoglobin 14.2 g/dL (13.0-16.5); Immature Granulocytes Count 0.110 X10^3/uL (0.0-0.0); Mean Corp Hgb Conc 34.0 g/dL (32-36); Mean Corpuscular Volume 83.9 fL (80-94); Mean Platelet Vol. 9.2 fl (6.2-12.0); NRBC Flagged by Analyzer 0 % (0-5); POSITIVE DIFFERENTIAL YES; Platelet Count 211 K/mm3 (150-450); RBC Distribution Width CV 13.1 % (11.6-14.6); RBC Distribution Width SD 40.2 fl (35.1-43.9); Red Blood Count 4.98 M/mm3 (4.6-6.2); White Blood Count 19.4 K/mm3 (4.4-11.0)
[2025-06-07 10:59] LABS: Mucous, Urine 0 SEEN /hpf (<or=2+)
[2025-06-07 11:01] LABS: Color, Urine Yellow (Yellow); Glucose, Dipstick Normal (Normal); Ketone-Dipstick 15 mg/dl (Negative); Leukocyte Esterase-Dipstick 500 /ul (Negative); Nitrite-Dipstick Positive (Negative); Occult Blood-Urine 250 /ul (Negative); Protein-Dipstick 100 mg/dl (Negative); Specific Gravity, Urine 1.010 (1.002-1.030); Urine Bilirubin Dipstick Negative (Negative)
[2025-06-07 11:03] LABS: Differential Comment SCANNED
[2025-06-07 11:09] LABS: AST(SGOT) 20 U/L (<=37); Alanine Aminotransfer ALT/SGPT 35 U/L (<=46); Albumin, Serum 3.9 g/dL (3.5-5.0); Alkaline Phosphatase 121 U/L (40-129); Anion Gap 14 (5-15); BUN 13 mg/dL (4-19); BUN/Creat Ratio 15.7 RATIO (10-20); Calcium,Total 9.5 mg/dL (7.6-11.0); Carbon Dioxide 23.7 mmol/L (21.0-32.0); Chloride 95 mmol/L (98-108); Estimated Creatinine Clearance 97.19 ml/min (50-250); Globulin 4.1 g/dL (2.2-4.2); Glucose 134 mg/dL (70-99); Potassium 3.5 mmol/L (3.3-5.1)
[2025-06-07 11:11] LABS: Red Blood Cells-Urine 5-10 SEEN /hpf (0-5); Squamous Epithelial Cells - UA 0-5 SEEN /hpf (0-5)
--- NOTE | 2025-06-07 12:15 | PCM.HP.STD ---
HPI - General General Date of Admission: 06/07/25 Date of Service: 06/07/25 Chief Complaint: High grade fever 104.4 and low urine output. HPI Narrative SIERRA AGUIRRE, is a 29 M who was brought to ED by her mother/primary caregiver for running high fever. He had 104.4 Fahrenheit, tachycardia and low urine output. Patient has neuromuscular respiratory disorder and has a spina bifid with surgery in the past thoracic spine. 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 Bedbound with PEG tube, indwelling catheter at umbilicus level and colostomy. Patient denies any cough, sore throat, URI. In ED, BP 120/75, heart rate 131, respiratory rate 18. Does not meet criteria for sepsis. 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 Chronic respiratory failure with hypoxia and hypercapnia Neuromuscular respiratory weakness Chronic respiratory failure requiring treatment with nocturnal BPAP by mask Home Medications ?Medication ?Instructions ?Recorded ?Last Taken ?Type nut.tx impaired digestive See Rx Instructions feeding tube 12/01/22 Unknown History fxn-fiber 0.07 gram-1.5 kcal/mL .HS feed oral liquid (Vital Peptide 1.5 Eriberto) cholecalciferol (vitamin D3) 10 10 mcg PO QDAY 02/27/25 06/06/25 History mcg (400 unit) chewable tablet diltiazem HCl 240 mg capsule,24 240 mg PO QDAY 02/27/25 06/06/25 History hr,extended release acetaminophen 325 mg capsule 325 mg PO Q6H PRN fever or pain 06/07/25 06/07/25 History Allergy/AdvReac Type Severity Reaction Status Date / Time bacitracin Allergy Mild unknown Verified 06/07/25 10:38 latex Allergy Unknown Verified 06/07/25 10:38 levofloxacin (Levofloxacin) Allergy Rash Verified 06/07/25 10:38 sulfamethoxazole (From Allergy Rash Verified 06/07/25 10:38 Bactrim) trimethoprim (From Bactrim) Allergy Rash Verified 06/07/25 10:38 Social History Smoking Status: Never smoker ROS ROS Narrative 14 system was taken from patient's primary caregiver, her mother. Constitutional: Bedbound. Short stature, 5 feet 1 inch. High-grade fever HEENT: Reports systems reviewed and no addt'l complaints, except as documented Respiratory/Chest: No acute shortness of breath or respiratory distress or wheezing. CVS: No chest pain pressure or tightness Gastrointestinal: Denies coffee ground emesis, hematemesis or vomiting. No abdominal Genitourinary: Indwelling Wade catheter through umbilicus. No sensation below mid thoracic level Musculoskeletal: Kyphoscoliosis, spinal bifid at thoracic level. Status post surgery. Bedbound. High-level RLE amputation thigh. Neurologic: Denies seizure-like symptoms. skin: Chronic scar and deformity from thoracic spine surgery scar Endocrinology: Reports systems reviewed and no addt'l complaints, except as documented Hematologic/Lymphatic: Reports systems reviewed and no addt'l complaints, except as documented Rest 14 ROS are negative except as mentioned in HPI Vital Signs Vital Signs Vital Signs: 06/07/25 09:55 Temperature 99.1 F Temperature Source Oral Pulse Rate 131 H Respiratory Rate 18 Blood Pressure 126/75 H Blood Pressure Mean 92 Pulse Ox 95 Oxygen Delivery Method Room Air Weight Weight: 113 lb 5.082 oz Body Mass Index (BMI) 20.7 Physical Exam Narrative General: Alert, Oriented x3, Cooperative. Short stature. BMI 21.1 kg/m?, 5 feet 1 inch height HEENT: Atraumatic, PERRLA, EOMI, Normocephalic. Oral: Oral mucosa dry. No Gingival or Mucosal Lesions/ Ulcerations Neck: Very short and wide neck. Supple, No JVD, Negative Carotid Bruits Chest wall/Lungs: Surgical scar on the back, kyphoscoliosis. Air entry diminished in bilateral lung bases. No crepitation/rhonchi Cardiovascular: Sinus tachycardia, normal S1,S2, No M/G/R Abdomen: Bowel Sounds sluggish, soft, early colostomy. No rigidity. No distention : Indwelling catheter from umbilicus draining bladder. No renal angle tenderness. No suprapubic tenderness. Extremities: No edema, Capillary Refill Less than 3 Seconds Skin: No rashes, No breakdown Musculoskeletal: RLE amputation. No Tenderness to Palpation of Joints or Extremities Neurological: No sensation below mid thoracic level. Complete neuroexam unobtainable with spina bifid deformity. Psych/Mental Status: Flat affect Results Lab / Micro Data 06/07/25 10:30 06/07/25 10:30 Labs: Laboratory Results - last 24 hr 06/07/25 10:30: WBC 19.4 H, RBC 4.98, Hgb 14.2, Hct 41.8, MCV 83.9, MCH 28.5, MCHC 34.0, RDW Std Deviation 40.2, RDW Coeff of Leroy 13.1, Plt Count 211, MPV 9.2, Immature Gran % (Auto) 0.600, Neut % (Auto) 86.1 H, Lymph % (Auto) 4.3 L, Marin % (Auto) 8.8, Eos % (Auto) 0.0, Baso % (Auto) 0.2, Absolute Neuts (auto) 16.7 H, Absolute Lymphs (auto) 0.83, Nucleated RBC % 0, Differential Comment SCANNED, Sodium 133, Potassium 3.5, Chloride 95 L, Carbon Dioxide 23.7, Anion Gap 14, BUN 13, Creatinine 0.83, Estim Creat Clear Calc 97.19, Est GFR (MDRD) Non-Af 123, BUN/Creatinine Ratio 15.7, Glucose 134 H, Lactic Acid < 1.0, Calcium 9.5, Total Bilirubin 0.78, AST 20, ALT 35, Alkaline Phosphatase 121, Total Protein 8.0, Albumin 3.9, Globulin 4.1, Albumin/Globulin Ratio 1.0 06/07/25 10:50: Urine Color Yellow, Urine Clarity Cloudy, Urine pH 8.0, Ur Specific Rogers 1.010, Urine Protein 100 H, Urine Glucose (UA) Normal, Urine Ketones 15 H, Urine Occult Blood 250 H, Urine Nitrite Positive H, Urine Bilirubin Negative, Urine Urobilinogen Normal, Ur Leukocyte Esterase 500 H, Urine RBC 5-10 SEEN, Urine WBC 50-100 SEEN, Ur Squamous Epith Cells 0-5 SEEN, Urine Bacteria 2+, Urine Mucus 0 SEEN Assessment & Plan Assessment/Plan (1) Complicated urinary tract infection: PLAN: Plan This 29-year-old gentleman is being admitted high-grade fever, decreased urine output with suspicion of complicated UTI 1. SIRS criteria due to complicated UTI: Patient does not have features/signs and symptoms of sepsis at the time of admission. Patient has tachycardia, high-grade fever and leukocytosis IV fluid 1600 mL as per 30 mL/kg body weight. Previous urine culture grew Pseudomonas therefore started on IV cefepime 2 g every 12 hourly. Lactic acid normal. UA shows positive nitrite, LE 500, WBC 5200 cells, RBC 5-10 cells, 2+ bacteria. Squamous epithelial 0-5 cells. 2. Chronic hypoxic and hypercarbic respiratory failure: Currently patient does not require oxygen. Pulse ox 95% on room air. Follows in pulmonary clinic, last visit on 06/05. Patient has noninvasive ventilator. 3. 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 4. Sinus tachycardia and hypertension: Currently blood pressure is in normal range. Hold antihypertensive medication. On Cardizem 240 mg daily, resume from tomorrow. Patient monitors heart rate at home and baseline is 80s to 90/min. 5. Bedbound, physical debility, RLE amputation, indwelling Wade catheter, colostomy: Nursing care. Patient mother is a primary care. Living will/advanced directive/end of life care: Patient does not have living will or advanced directive. Patient does not endanger power of punch press setter for health but her mother is primary caregiver. After discussion of benefits/risks procedures involved with full code, DNR CC arrest and DNR CC, the patient opted for full code. Patient's mother does want artificial life support including intubation, tube feed, ventilator and/chest compression, central venous catheter, vasopressor and DC shock if needed Total time spent in [id number] encounter in discussion of advanced directive 17 minutes. Charges/Coding Visit Charges Inpatient E&M: 92687 Init Hosp L3 Procedures Hospitalists Procedures: 71813 Advncd Care Plan 30 Min
--- OUTSIDE RECORDS SUMMARY | 2025-06-07 12:20 | XMS RPT_ITS | CCD ---
Author Organization [facility] Care Team Providers Care Vp Scientific Name Role Phone Rox BENAVIDES MD, Michael Primary Care Provider [phone] ([place]), [place] Unavailable Nikita Gramajo DO Primary Care Provider NIKITA GRAMAJO Primary Care Unavailable AUGUSTIN REY Attending Unavailable AUGUSTIN REY Referring Unavailable NIKITA GRAMAJO A Primary Care Unavailable ALINA TATUM Attending Unavailable MISHA CAMARENA Attending Unavailable NIKITA GRAMAJO A Primary Care Unavailable ROX ZACK Primary Care Unavailable HALFLEX, ZACK Referring Unavailable AUGUSTIN REY Attending Unavailable NIKITA GRAMAJO A Primary Care Unavailable AUGUSTIN REY Attending Unavailable AUGUSTIN REY Referring Unavailable Rox BENAVIDES MD, Michael Primary Care Provider [phone] Rox BENAVIDES MD, Michael Primary Care Provider [phone] NIKITA GRAMAJO DO Primary Care Physician [phone] Dr. Omi Adams Attending Provider [phone] Rox BENAVIDES DO, Michael Primary Care Provider [...] Unavailable WOOD, KELSIE Attending Unavailable HALKO IV, NIKITA Primary Care Unavailable [...] IV, DO, Zack Primary Care Provider [phone] HALKO DO, NIKITA Attending Unavailable HALKO DO, NIKITA Primary Care Unavailable Alexa Peterson NP Attending Unavailable Halko, Nikita Referring Unavailable Halko, Nikita Primary Care Unavailable Halko , Dr. Pressley Primary Care Provider [phone] Dr. Nikita Gramajo DO Referring Provider Nicholas WEBSTER-CAlexa Attending Provider Allergies Allergy Classification Reported Allergen(s) Allergy Type Date of Onset Reaction(s) Facility (20 sources) Bacitracin; Translations: [BACITRACIN] Drug Allergy 05-16-20 19 Other: See Comments, Rash, Eruption of skin (disorder) [facility] (20 sources) Latex; Translations: [LATEX] Drug Allergy 12-22-19 12 Other: See Comments, Other (See Comments) [facility] Comment on above: unsure as charted (20 sources) levoFLOXacin; Translations: [LEVOFLOXACIN] Drug Allergy 05-21-20 13 Rash, Other (See Comments) [facility] (20 sources) Sulfamethoxazole / Trimethoprim; Translations: [sulfamethoxazole-t rimethoprim] Drug Allergy 11-11-19 Rash [facility] (3 sources) Sulfonamides (Antibiotic); Translations: [SULFA ANTIBIOTICS] Propensity to adverse reactions 06-27-20 [facility] (3 sources) Other; Translations: [OTHER] Allergy to substance 12-22-19 [facility] Work Phone: (3 sources) Sulfamethoxazole Drug Allergy 12-01-19 [facility] (3 sources) Trimethoprim Drug Allergy 12-01-19 [facility] (1 source) Bacitracin Drug Allergy 02-28-20 [facility] (1 source) Latex Drug allergy (disorder) 02-28-20 [facility] (1 source) levoFLOXacin Drug Allergy 02-28-20 [facility] (1 source) Sulfamethoxazole Drug Allergy 02-28-20 [facility] (1 source) Trimethoprim Drug Allergy 02-28-20 [facility] Medications Current Medications Medication Drug Class(es) [...] Refill(s), 09/17/23 11:29:00 AM EST, Pharmacy: [facility] #[id number], 46.8 Start Date: 09/07/23 Stop Date: 09/17/23 [...] 12:00am Start: 07-04-2024 take 1 capsule by [facility] every hour, then take 1 capsule [...] Comment on above: Take 1 capsule by [facility] every afternoon. DME [employer] (3 sources) [...] (1 box every 3 months) Bed pads [id number] 1 Each 11 02/28/2024 Active Start: 02-28-2024 MEDICAL SUPPLY Indications: Decreased oral intake Feed bags INF 1200-E (30 per month) Feed ext tube [id number] (4 per month) G-tube button 20F 4.0cm [...] in place (HCC) 2 skin barrier rings [id number] (1 box every 2 months) Adapt adhesive [...] one time only for 1 dose. 20 Estonian, 4.0 cm Lele-sahni button 1 Each 0 06/07/2023 06/07/2023 Comment on above: 1 Tube by MISCELLANE OUS route one time only for 1 dose. 20 Estonian, 4.0 cm Lele-sahni button Nut.Tx.Impaired Dige Fxn-Fiber [...] and 60 ml after tube feeding completed [id number] mL 11 01/27/2025 Active Start: 01-19-2024 End: 01-27-2025 Nut.Tx.Impaired Dige Fxn-Fib er (VITAL 1.0 SHINE) 0.04 gram- 1 kcal/mL liqd Indications: On tube feeding diet Infuse 5 cartons Vital 1.0 or equivalent peptide based formula at 85 ml/hr for 14 hours via Inifinity pump. Flush tube wit 60 ml before starting tube feed and 60 ml after tube feeding completed 50698 mL 11 01/19/2024 01/27/2025 Discontinued Start: 01-19-2024 Nut.Tx.Impaire d Dige Fxn-Fiber (VITAL 1.0 SHINE) 0.04 gram- 1 kcal/mL liqd Indications: On tube feeding diet Infuse 5 cartons Vital 1.0 or equivalent peptide based formula at 85 ml/hr for 14 hours via Inifinity pump. Flush tube wit 60 ml before starting tube feed and 60 ml after tube feeding completed 46210 mL 11 01/19/2024 Active Comment on above: [...] [facility], Pharmacy: [id number] Start Date: 09/07/23 Stop Date: 10/07/23 Status: [...] 01, 2013 1:00am January 30, 2014 10:38am Lbryq-Egfs-Xpwcq-Collag-Mv-M in (Mark (With Collagen)) 1 EACH powder in packet (3 sources) Start: 10-25-2018 End: 12-01-2022 Lpqfd-Spcc-Eulkh-Collag-Mv-M in (Mark (With Collagen)) 1 EACH powder in packet Discontinued 1 NMA PO TWICE A DAY October 25, 2018 1:00am December 01, 2022 2:12pm S Start: 10-25-2018 End: 12-01-2022 Moefm-Txis-Xinwc-Collag-Mv-M in (Mark (With Collagen)) 1 EACH powder [...] 1 spray(s) nasa l route once Ipratropium [place] Active 2 SPRAY INTRANASAL ONCE December 01, 2022 1:00am administer into each nostril Comment on above: Use in the nose. Ipratropium [place] 21 mcg (0.03 %) spray,non-aerosol (1 source) Start: 12-01-2022 End: 02-27-2025 Ipratropium [place] 21 mcg (0.03 %) spray,non-aerosol Discontinued 2 [...] 574 mL by G-TUBE route once daily. 91147 mL 11 06/21/2023 01/26/2024 Discontinued (Course of therapy completed) Start: 06-21-2023 Nut.Tx.Impaire d Dige Fxn-Fiber (VITAL PEPTIDE 1.5 SHINE) 0.07 gram- 1.5 kcal/mL liqd Indications: Decreased oral intake 574 mL by G-TUBE route once daily. 15721 mL 11 06/21/2023 Active Comment on above: [...] by mouth once daily. 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 He needs a electric portable concentrator, not an electric stationary concentrator as he was delivered. We will try again with [employer] today to obtain the right equipment that [...] sleep and/or central apnea, diagnosed clinically at [facility] no prior sleep study. - Empiric adjustment based on the trilogy download seems to have resulted in improved sleep quality and daytime energy.Intractable daily nausea vomiting, gradually increasing, tentative surgery date March 14 for hernia reduction and colostomy revision, [facility].Severe protein calorie malnutrition, he is on [...] cushion use. I will order this with [facility] when we make his trilogy adjustments.-The patient [...] Facility Pulmonary Visit Reporton Pulmonary Visit Report [facility] [address] [place] [address] OFFICE VISIT Date of Service: 02/27/25 MR#: [id number] Acct: [id number] Name: MARCOS AGUIRRE Rep #: [id number] : 1995 Provider: COSMO Peterson Age/Sex: 29/M Location: [facility] [place] [facility].W Status: Signed Assessment and Plan Assessment and Plan (1) Chronic respiratory failure with hypoxia and hypercapnia: Status: Chronic Plan: He is using and benefiting from noninvasive ventilator. However, he is experiencing frequent morning headaches and some persistent daytime fatigue. I will ask the [facility] to send a respiratory therapist out to [...] Additional Comments: This note was generated with Stand In dictation software. It may contain incorrect words, spelling, and punctuation that were not noted in checking the note before signing. Follow Up: 3 Months ([facility]) HPI NIGEL Follow up Chief Complaint: Morning [...] Reasons: NIGEL Follow up Chief Complaint: postop Windows Application Packager Required: No DME Vendor: Fan Accompanied by: [...] QDAY 02/27/25 02/27/25 H istory hr,extended release [facility] Medical History (Reviewed 02/27/25 @ 15:04 by Alexa Peterson JAWBONE BREAKER, JAWBONE BREAKER (more content not included)... Normal [facility] 25-hydroxyvitamin D3 [Mass/V ol]on 01-24-2025 Interpretation and review of laboratory results Normal [facility] The reference range interval was based on an analysis of samples from healthy adults and may not pertain to children from 0-18 years old. [facility] CBC W Auto Differential pane l (Bld)on 01-24-2025 Basophils (Bld) [#/Vol] 0.05 10*3/uL [facility] Basophils/100 WBC (Bld) 0.6 % [facility] Differential cell count method Nom (Bld) Auto [facility] Eosinophils (Bld) [#/Vol] 0.17 10*3/uL [facility] Eosinophils/100 WBC (Bld) 1.9 % [facility] Erythrocyte distribution width (RBC) [Ratio] 12.2 % 11.5 - 15.0 % [facility] Hematocrit (Bld) [Volume fraction] 46.6 % 39.0 - 51.0 % [facility] Hemoglobin (Bld) [Mass/Vol] 15.6 g/dL 13.0 - 17.0 g/dL [facility] Immature granulocytes (Bld) [#/Vol] 0.03 10*3/uL [facility] Immature granulocytes/100 WBC (Bld) 0.3 % [facility] Interpretation and review of laboratory results Abnormal [facility] Lymphocytes (Bld) [#/Vol] 2.57 10*3/uL [facility] Lymphocytes/100 WBC (Bld) 28.3 % [facility] MCH (RBC) [Entitic mass] 27.9 pg 26.0 - 34.0 pg [facility] MCHC (RBC) [Mass/Vol] 33.5 g/dL 30.5 - 36.0 g/dL [facility] MCV (RBC) [Entitic vol] 83.2 fL 80.0 - 100.0 fL [facility] Monocytes (Bld) [#/Vol] 0.82 10*3/uL [facility] Monocytes/100 WBC (Bld) 9 % [facility] Neutrophils (Bld) [#/Vol] 5.43 10*3/uL [facility] Neutrophils/100 WBC (Bld) 59.9 % [facility] Nucleated RBC (Bld) [#/Vol] NINF [facility] Nucleated RBC/100 WBC (Bld) [Ratio] 0 % /100 WBC [facility] Platelet mean volume (Bld) [Entitic vol] 8.9 fL Low 9.0 - 12.7 fL [facility] Platelets (Bld) [#/Vol] 313 10*3/uL [facility] RBC (Bld) [#/Vol] 5.6 10*6/uL 4.20 - 6.0 0 m/uL [facility] WBC (Bld) [#/Vol] 9.07 10*3/uL [facility] FERRITINon 01-24-2025 Ferritin [Mass/Vol] 93.7 ng/mL 30.3 - 5 65.7 ng/mL [facility] Ferritin [Mass/Vol]on 2024 Interpretation and review of laboratory results Normal [facility] Hepatic function 2000 panelo n 01-24-2025 Albumin [Mass/Vol] 4.3 g/dL 3.9 - 4.9 g/dL [facility] ALP [Catalytic activity/Vol] 107 U/L 38 - 113 U/L [facility] ALT [Catalytic activity/Vol] 29 U/L 10 - 54 U/L [facility] AST [Catalytic activity/Vol] 22 U/L 14 - 40 U/L [facility] Bilirubin [Mass/Vol] 0.3 mg/dL 0.2 - 1 .3 mg/dL [facility] Bilirubin.conjugated [Mass/Vol] 0.1 mg/dL NINF - 0.3 mg/dL [facility] Protein [Mass/Vol] 8.4 g/dL High 6.3 - 8.0 g/dL [facility] Lipid 1996 panelon Cholesterol [Mass/Vol] 162 mg/dL NINF - 200 mg/dL [facility] Comment on above: <200 mg/dL, Desirabl e 200-239 mg/dL, Borderline high >239 mg/dL, High Cholesterol in HDL [Mass/Vol] 37 mg/dL Low 39 - PINF mg/dL [facility] Comment on above: 40-59 mg/dL, Accepta ble >59 mg/dL, High: Negative risk factor for coronary heart disease <40 mg/dL, Low: Positive risk factor for coronary heart disease Cholesterol in LDL [Mass/Vol] 104 mg/dL High NINF - 100 mg/dL [facility] Comment on above: <100 mg/dL, Optimal 100-129 mg/dL, Near optimal/above optimal 130-159 mg/dL, Borderline high 160-189 mg/dL, High >189 mg/dL, Very high Secondary prevention optimal LDL Cholesterol levels are recommended to be < 70 mg/dL Cholesterol in LDL/Cholesterol in HDL [Mass ratio] 2.81 {ratio} High NINF - 2.54 [facility] Comment on above: Reference: 1. National Cholesterol Education Program ATP III Guideline At-A-Glance Quick Desk Reference: National Heart, Lung, and Blood Etlan. National Institutes of Health. 2001: NIH Publication No. 01-3305. 2. An International Atherosclerosis Society position paper: global recommendations for the management of dyslipidemia: executive summary, Atherosclerosis. 2014: 232(2):410-413. Cholesterol in VLDL [Mass/Vol] 21 mg/dL NINF - 30 mg/dL [facility] Cholesterol non HDL [Mass/Vol] 125 mg/dL NINF - 130 mg/dL [facility] Comment on above: <130 mg/dL, Optimal 130-159 mg/dL, Near optimal/above optimal 160-189 mg/dL, Borderline high 190-219 mg/dL, High >219 mg/dL, Very high Secondary prevention optimal non HDL Cholesterol levels are recommended to be <100 mg/dL Cholesterol.total/Ch olesterol in HDL [Mass ratio] 4.38 {ratio} NINF - 5.10 [facility] Fasting Time 1 hrs [facility] Triglyceride [Mass/Vol] 107 mg/dL NINF - 150 mg/dL [facility] Comment on above: <150 mg/dL, Normal 150-199 mg/dL, Borderline high 200-499 mg/dL, High >499 mg/dL, Very high MAGNESIUMon 01-24-2025 Magnesium [Mass/Vol] 2 mg/dL 1.7 - 2 .3 mg/dL [facility] Magnesium [Mass/Vol]on 01-24 Interpretation and review of laboratory results Normal [facility] No Panel Informationon 01-24 Interpretation and review of laboratory results Abnormal [facility] US Kidney - bilateral and Ur inary bladderon 01-24-2025 IMPRESSION: No hydronephrosis. No definite echogenic, shadowing stones although assessment of the LEFT kidney is technically very limited. Head Of Product: KENZIE Transcribe Date/Time: Jan 24 2025 1:51P [...] the LEFT kidney is technically very limited. Head Of Product: [facility] Transcribe Date/Time: Jan 24 2025 1:51P Dictated by : RONNIE MERCADO MD This examination was interpreted and the report reviewed and electronically signed by: RONNIE MERCADO MD on Jan 24 2025 1:53PM EST [facility] Radiology Study observation (narrative) [facility] US Kidney - bilateral and Ur inary bladderOrdered By: [facility] Provider on 01-24-2025 [facility] VITAMIN D 25 HYDROXYon 01-24 25-hydroxyvitamin D3 [Mass/Vol] 76.1 ng/mL 31.0 - 80.0 ng/mL [facility] Comment on above: Classification of 25 [place] Vitamin D status: Deficiency/Insufficiency: < or = 30 ng/ml. Sufficiency/Optimal Levels: 31-80 ng/mL Toxicity: > 100 ng/mL. Test performed by chemiluminescent immunoassay. .Auto Diffon 08-05-2024 Basophil, Absolute 0.1 10 3/mcL Normal 0.0-0.2 [facility] Comment on above: Performed By: #### P BNP, TSH, ANEU, A1C, CMP, LIPID, FT4, CBC, GFR, MG, ADIFF #### [address] [address] #### B12, HCV1 #### [address] [address] Basophils/100 WBC (Bld) 0.7 % Normal 0.0-2.5 [facility] Comment on above: Performed By: #### P BNP, TSH, ANEU, A1C, CMP, LIPID, FT4, CBC, GFR, MG, ADIFF #### [place] [address] #### B12, HCV1 #### [address] [address] Eosinophil, Absolute 0.2 10 3/mcL Normal 0.0-0.7 [facility] Comment on above: Performed By: #### P BNP, TSH, ANEU, A1C, CMP, LIPID, FT4, CBC, GFR, MG, ADIFF #### [place] [address] #### B12, HCV1 #### [address] [address] Eosinophils/100 WBC (Bld) 2.2 % Normal 0.0-7.0 [facility] Comment on above: Performed By: #### P BNP, TSH, ANEU, A1C, CMP, LIPID, FT4, CBC, GFR, MG, ADIFF #### [address] [address] #### B12, HCV1 #### [address] [address] Lymphocyte, Absolute 2.7 10 3/mcL Normal 0.9-4.3 [facility] Comment on above: Performed By: #### P BNP, TSH, ANEU, A1C, CMP, LIPID, FT4, CBC, GFR, MG, ADIFF #### [place] [address] #### B12, HCV1 #### [address] [address] Lymphocytes/100 WBC (Bld) 32.4 % Normal 20.0-40.0 [facility] Comment on above: Performed By: #### P BNP, TSH, ANEU, A1C, CMP, LIPID, FT4, CBC, GFR, MG, ADIFF #### [address] [address] #### B12, HCV1 #### [address] [address] Monocyte, Absolute 0.7 10 3/mcL Normal 0.1-1.4 [facility] Comment on above: Performed By: #### P BNP, TSH, ANEU, A1C, CMP, LIPID, FT4, CBC, GFR, MG, ADIFF #### [address] [address] #### B12, HCV1 #### [address] [address] Monocytes/100 WBC (Bld) 8.0 % Normal 2.0-13.0 [facility] Comment on above: Performed By: #### P BNP, TSH, ANEU, A1C, CMP, LIPID, FT4, CBC, GFR, MG, ADIFF #### [address] [address] #### B12, HCV1 #### [address] [address] Neutrophils/100 WBC (Bld) 56.7 % Normal 50.0-75.0 [facility] Comment on above: Performed By: #### P BNP, TSH, ANEU, A1C, CMP, LIPID, FT4, CBC, GFR, MG, ADIFF #### [address] [address] #### B12, HCV1 #### [address] [address] .GFRon 08-05-2024 GFR Non- 168 ml/min/1.73sqm Normal [facility] Comment on above: Result Comment: GFR Population [...] LIPID, FT4, CBC, GFR, MG, ADIFF #### [address] [address] #### B12, HCV1 #### [address] [address] GFR 204 ml/min/1.73sqm Normal [facility] Comment on above: Result Comment: GFR Population [...] LIPID, FT4, CBC, GFR, MG, ADIFF #### [address] [address] #### B12, HCV1 #### [address] [address] .NEUABSon 08-05-2024 Neutrophil, Absolute 4.6 10 3/mcL Normal 2.3-8.1 [facility] Comment on above: Performed By: #### P BNP, TSH, ANEU, A1C, CMP, LIPID, FT4, CBC, GFR, MG, ADIFF #### [address] [address] #### B12, HCV1 #### [address] [address] A1Con 08-05-2024 Glucose [Mass/Vol] 103 mg/dL Normal [facility] Comment on above: Result Comment: Mary mated Average Glucose calculated by equation ((28.7xA1C)-46.7) Estimated average glucose (eAG) is a calculated value from Hemoglobin A1C and is volunteer patient representative of the average blood glucose level in the last 2-3 month period. Normal range: less than 114 mg/dL Performed By: #### P BNP, TSH, ANEU, A1C, CMP, LIPID, FT4, CBC, GFR, MG, ADIFF #### [address] [address] #### B12, HCV1 #### [place] [address] HbA1c (Bld) [Mass fraction] 5.2 % Normal 4.3-6.4 [facility] Comment on above: Performed By: #### P BNP, TSH, ANEU, A1C, CMP, LIPID, FT4, CBC, GFR, MG, ADIFF #### [address] [address] #### B12, HCV1 #### [place] [address] B12on 08-05-2024 Cobalamin (Vitamin B12) [Mass/Vol] 1086 pg/mL High 211-911 [facility] Comment on above: Performed By: #### P BNP, TSH, ANEU, A1C, CMP, LIPID, FT4, CBC, GFR, MG, ADIFF #### [address] [address] #### B12, HCV1 #### [place] [id number] CBCon 08-05-2024 Erythrocyte distribution width (RBC) [Ratio] 13.2 % Normal 11.5-15.5 [facility] Comment on above: Performed By: #### P BNP, TSH, ANEU, A1C, CMP, LIPID, FT4, CBC, GFR, MG, ADIFF #### [place] [address] #### B12, HCV1 #### [place] [address] Hematocrit (Bld) [Volume fraction] 47.4 % Normal 40.0-52.0 [facility] Comment on above: Performed By: #### P BNP, TSH, ANEU, A1C, CMP, LIPID, FT4, CBC, GFR, MG, ADIFF #### [place] [address] #### B12, HCV1 #### [place] [address] Hgb 15.9 G/dL Normal 13.0-17.5 [facility] Comment on above: Performed By: #### P BNP, TSH, ANEU, A1C, CMP, LIPID, FT4, CBC, GFR, MG, ADIFF #### [place] [address] #### B12, HCV1 #### [place] [address] MCH (RBC) [Entitic mass] 28.4 pg Normal 27.0-33.0 [facility] Comment on above: Performed By: #### P BNP, TSH, ANEU, A1C, CMP, LIPID, FT4, CBC, GFR, MG, ADIFF #### [place] [address] #### B12, HCV1 #### [place] [address] MCHC 33.6 G/dL Normal 32.0-36.0 [facility] Comment on above: Performed By: #### P BNP, TSH, ANEU, A1C, CMP, LIPID, FT4, CBC, GFR, MG, ADIFF #### [place] [address] #### B12, HCV1 #### [place] [address] MCV (RBC) [Entitic vol] 84.4 fL Normal 81.0-100.0 [facility] Comment on above: Performed By: #### P BNP, TSH, ANEU, A1C, CMP, LIPID, FT4, CBC, GFR, MG, ADIFF #### [place] [address] #### B12, HCV1 #### [address] [address] Platelet 348 10 3/mcL Normal 150-450 [facility] Comment on above: Performed By: #### P BNP, TSH, ANEU, A1C, CMP, LIPID, FT4, CBC, GFR, MG, ADIFF #### [place] [address] #### B12, HCV1 #### [place] [address] Platelet mean volume (Bld) [Entitic vol] 7.1 fL Normal 6.4-10.5 [facility] Comment on above: Performed By: #### P BNP, TSH, ANEU, A1C, CMP, LIPID, FT4, CBC, GFR, MG, ADIFF #### [place] [address] #### B12, HCV1 #### [place] [address] RBC 5.62 10 6/mcL Normal 4.50-6.00 [facility] Comment on above: Performed By: #### P BNP, TSH, ANEU, A1C, CMP, LIPID, FT4, CBC, GFR, MG, ADIFF #### [place] [address] #### B12, HCV1 #### [place] [address] WBC 8.2 10 3/mcL Normal 4.5-10.8 [facility] Comment on above: Performed By: #### P BNP, TSH, ANEU, A1C, CMP, LIPID, FT4, CBC, GFR, MG, ADIFF #### [place] [address] #### B12, HCV1 #### [place] [address] CMPon 08-05-2024 Albumin Level 4.4 G/dL Normal 3.5-5.0 [facility] Comment on above: Performed By: #### P BNP, TSH, ANEU, A1C, CMP, LIPID, FT4, CBC, GFR, MG, ADIFF #### [address] [address] #### B12, HCV1 #### [address] [address] Albumin/Globulin [Mass ratio] 1.0 {ratio} Low 1.1-2.5 [facility] Comment on above: Performed By: #### P BNP, TSH, ANEU, A1C, CMP, LIPID, FT4, CBC, GFR, MG, ADIFF #### [address] [address] #### B12, HCV1 #### [place] [address] ALP [Catalytic activity/Vol] 112 U/L Normal 40-135 [facility] Comment on above: Performed By: #### P BNP, TSH, ANEU, A1C, CMP, LIPID, FT4, CBC, GFR, MG, ADIFF #### [address] [address] #### B12, HCV1 #### [address] [address] ALT [Catalytic activity/Vol] 41 U/L Normal 16-63 [facility] Comment on above: Performed By: #### P BNP, TSH, ANEU, A1C, CMP, LIPID, FT4, CBC, GFR, MG, ADIFF #### [address] [address] #### B12, HCV1 #### [address] [address] AST [Catalytic activity/Vol] 19 U/L Normal 10-40 [facility] Comment on above: Performed By: #### P BNP, TSH, ANEU, A1C, CMP, LIPID, FT4, CBC, GFR, MG, ADIFF #### [address] [address] #### B12, HCV1 #### [address] [address] Bili Total 0.5 mg/dL Normal 0.2-1.0 [facility] Comment on above: Result Comment: Use of this assay is not recommended for patients undergoing treatment with eltrombopag due to the potential for falsely elevated results. Performed By: #### P BNP, TSH, ANEU, A1C, CMP, LIPID, FT4, CBC, GFR, MG, ADIFF #### [place] [address] #### B12, HCV1 #### [place] [id number] BUN/Creatinine Ratio 19 ratio Normal 7-27 [facility] Comment on above: Performed By: #### P BNP, TSH, ANEU, A1C, CMP, LIPID, FT4, CBC, GFR, MG, ADIFF #### [place] [address] #### B12, HCV1 #### [address] [address] Calcium [Mass/Vol] 10.0 mg/dL Normal 8.4-10.2 [facility] Comment on above: Performed By: #### P BNP, TSH, ANEU, A1C, CMP, LIPID, FT4, CBC, GFR, MG, ADIFF #### [place] [address] #### B12, HCV1 #### [address] [address] Chloride [Moles/Vol] 100 mmol/L Normal 98-107 [facility] Comment on above: Performed By: #### P BNP, TSH, ANEU, A1C, CMP, LIPID, FT4, CBC, GFR, MG, ADIFF #### [address] [address] #### B12, HCV1 #### [address] [address] CO2 [Moles/Vol] 25 mmol/L Normal 22-29 [facility] Comment on above: Performed By: #### P BNP, TSH, ANEU, A1C, CMP, LIPID, FT4, CBC, GFR, MG, ADIFF #### [place] [address] #### B12, HCV1 #### [place] [address] Creatinine [Mass/Vol] 0.58 mg/dL Low 0.70-1.30 [facility] Comment on above: Result Comment: Test ing performed on Siemens Dimension EXL analyzer using a modified kinetic Skyler technique. Performed By: #### P BNP, TSH, ANEU, A1C, CMP, LIPID, FT4, CBC, GFR, MG, ADIFF #### [place] [address] #### B12, HCV1 #### [place] [address] Electrolyte Balance 12.0 mEq/L Normal 4.0-15.0 [facility] Comment on above: Performed By: #### P BNP, TSH, ANEU, A1C, CMP, LIPID, FT4, CBC, GFR, MG, ADIFF #### [place] [address] #### B12, HCV1 #### [place] [address] Globulin 4.3 G/dL Normal [facility] Comment on above: Performed By: #### P BNP, TSH, ANEU, A1C, CMP, LIPID, FT4, CBC, GFR, MG, ADIFF #### [place] [address] #### B12, HCV1 #### [place] [address] Glucose [Mass/Vol] 88 mg/dL Normal 70-105 [facility] Comment on above: Performed By: #### P BNP, TSH, ANEU, A1C, CMP, LIPID, FT4, CBC, GFR, MG, ADIFF #### [place] [address] #### B12, HCV1 #### [address] [address] Potassium [Moles/Vol] 3.8 mmol/L Normal 3.5-5.1 [facility] Comment on above: Performed By: #### P BNP, TSH, ANEU, A1C, CMP, LIPID, FT4, CBC, GFR, MG, ADIFF #### [place] [address] #### B12, HCV1 #### [place] [address] Sodium [Moles/Vol] 137 mmol/L Normal 136-145 [facility] Comment on above: Performed By: #### P BNP, TSH, ANEU, A1C, CMP, LIPID, FT4, CBC, GFR, MG, ADIFF #### [place] [address] #### B12, HCV1 #### [place] [address] Total Protein 8.7 G/dL High 6.4-8.2 [facility] Comment on above: Performed By: #### P BNP, TSH, ANEU, A1C, CMP, LIPID, FT4, CBC, GFR, MG, ADIFF #### [place] [address] #### B12, HCV1 #### [place] [address] Urea nitrogen [Mass/Vol] 11 mg/dL Normal 7-18 [facility] Comment on above: Performed By: #### P BNP, TSH, ANEU, A1C, CMP, LIPID, FT4, CBC, GFR, MG, ADIFF #### [place] [address] #### B12, HCV1 #### [place] [address] FT4on 08-05-2024 Free T4 [Mass/Vol] 0.95 ng/dL Normal 0.76-1.46 [facility] Comment on above: Performed By: #### P BNP, TSH, ANEU, A1C, CMP, LIPID, FT4, CBC, GFR, MG, ADIFF #### [address] [address] #### B12, HCV1 #### [address] [address] HCVon 08-05-2024 Hep C Ab Non-Reactive Normal Non-Reactive [facility] Comment on above: Performed By: #### P BNP, TSH, ANEU, A1C, CMP, LIPID, FT4, CBC, GFR, MG, ADIFF #### [address] [address] #### B12, HCV1 #### [place] [address] Hep C Ab Int Normal [facility] Comment on above: Result Comment: Nonr eactive: [...] LIPID, FT4, CBC, GFR, MG, ADIFF #### [address] [address] #### B12, HCV1 #### [place] [address] LABORATORYOrdered By: SYSTEM SYSTEM on 08-05-2024 Albumin [...] calculated value from Hemoglobin A1C and is volunteer patient representative of the average blood glucose level [...] 08-05-2024 Cholesterol [Mass/Vol] 194 mg/dL Normal 0-200 [facility] Comment on above: Result Comment: Chol esterol Reference Interval: Less than 200 Desirable 200-239 Borderline high risk 240 and above High risk Performed By: #### P BNP, TSH, ANEU, A1C, CMP, LIPID, FT4, CBC, GFR, MG, ADIFF #### [facility] [address] [place], [place] [address] #### B12, HCV1 #### [address] [address] Cholesterol in HDL [Mass/Vol] 50 mg/dL Normal 40-60 [facility] Comment on above: Performed By: #### P BNP, TSH, ANEU, A1C, CMP, LIPID, FT4, CBC, GFR, MG, ADIFF #### [address] [address] #### B12, HCV1 #### [address] [address] Cholesterol in LDL [Mass/Vol] 114 mg/dL Normal 0-130 [facility] Comment on above: Performed By: #### P BNP, TSH, ANEU, A1C, CMP, LIPID, FT4, CBC, GFR, MG, ADIFF #### [address] [address] #### B12, HCV1 #### [address] [address] Triglyceride [Mass/Vol] 149 mg/dL Normal 0-150 [facility] Comment on above: Result Comment: Trig lyceride Reference Interval: Less than 150 Normal 150-199 Borderline high risk 200-499 High risk 500 or higher Very high risk Performed By: #### P BNP, TSH, ANEU, A1C, CMP, LIPID, FT4, CBC, GFR, MG, ADIFF #### [address] [address] #### B12, HCV1 #### [place] [id number] MGon 08-05-2024 Magnesium [Mass/Vol] 1.9 mg/dL Normal 1.8-2.4 [facility] Comment on above: Performed By: #### P BNP, TSH, ANEU, A1C, CMP, LIPID, FT4, CBC, GFR, MG, ADIFF #### [address] [address] #### B12, HCV1 #### [address] [address] PBNPon 08-05-2024 Natriuretic peptide B (Bld) [Mass/Vol] 20 pg/mL Normal 0-125 [facility] Comment on above: Result Comment: NT-p roBNP results of less than 300 pg/mL effectively rules out acute congestive heart failure with 99% negative predictive value. Performed By: #### P BNP, TSH, ANEU, A1C, CMP, LIPID, FT4, CBC, GFR, MG, ADIFF #### [place] [address] [place], [place] [address] #### B12, HCV1 #### [address] [address] TSHon 08-05-2024 TSH Qn 1.67 m[IU]/L Normal 0.36-3.74 [facility] Comment on above: Performed By: #### P BNP, TSH, ANEU, A1C, CMP, LIPID, FT4, CBC, GFR, MG, ADIFF #### [place] [id number] [place], [place] [address] #### B12, HCV1 #### [address] [address] CBC W Auto Differential pane l (Bld)on 01-26-2024 Basophils (Bld) [#/Vol] 0.04 10*3/uL <0.11 k/uL [facility] Basophils/100 WBC (Bld) 0.5 % [facility] Differential cell count method Nom (Bld) Auto [facility] Eosinophils (Bld) [#/Vol] 0.13 10*3/uL <0.46 k/uL [facility] Eosinophils/100 WBC (Bld) 1.7 % [facility] Erythrocyte distribution width (RBC) [Ratio] 12.3 % 11.5 - 15.0 % [facility] Hematocrit (Bld) [Volume fraction] 49.4 % 39.0 - 51.0 % [facility] Hemoglobin (Bld) [Mass/Vol] 16.2 g/dL 13.0 - 17.0 g/dL [facility] Immature granulocytes (Bld) [#/Vol] 0.03 10*3/uL <0.10 k/uL [facility] Immature granulocytes/100 WBC (Bld) 0.4 % [facility] Lymphocytes (Bld) [#/Vol] 2.41 10*3/uL 1.00 - 4.00 k/uL [facility] Lymphocytes/100 WBC (Bld) 31.5 % [facility] MCH (RBC) [Entitic mass] 27.6 pg 26.0 - 34.0 pg [facility] MCHC (RBC) [Mass/Vol] 32.8 g/dL 30.5 - 36.0 g/dL [facility] MCV (RBC) [Entitic vol] 84.3 fL 80.0 - 100.0 fL [facility] Monocytes (Bld) [#/Vol] 0.60 10*3/uL <0.87 k/uL [facility] Monocytes/100 WBC (Bld) 7.8 % [facility] Neutrophils (Bld) [#/Vol] 4.45 10*3/uL 1.45 - 7.50 k/uL [facility] Neutrophils/100 WBC (Bld) 58.1 % [facility] Nucleated RBC (Bld) [#/Vol] <0.01 k/uL [facility] Nucleated RBC/100 WBC (Bld) [Ratio] 0.0 /100 WBC [facility] Platelet mean volume (Bld) [Entitic vol] 9.2 fL 9.0 - 12.7 fL [facility] Platelets (Bld) [#/Vol] 342 10*3/uL 150 - 400 k/uL [facility] RBC (Bld) [#/Vol] 5.86 10*6/uL 4.20 - 6.0 0 m/uL [facility] WBC (Bld) [#/Vol] 7.66 10*3/uL 3.70 - 11. 00 k/uL [facility] FERRITIN BLDon 01-26-2024 Ferritin [Mass/Vol] 44.2 ng/mL 30.3 - 5 65.7 ng/mL [facility] Hepatic function 2000 panelo n 01-26-2024 Albumin [Mass/Vol] 4.5 g/dL 3.9 - 4.9 g/dL [facility] ALP [Catalytic activity/Vol] 92 U/L 38 - 113 U/L [facility] ALT [Catalytic activity/Vol] 28 U/L 10 - 54 U/L [facility] AST [Catalytic activity/Vol] 24 U/L 14 - 40 U/L [facility] Bilirubin [Mass/Vol] 0.4 mg/dL 0.2 - 1 .3 mg/dL [facility] Bilirubin.conjugated [Mass/Vol] <0.2 mg/dL [facility] Protein [Mass/Vol] 8.1 g/dL High 6.3 - 8.0 g/dL [facility] LIPID PANEL, NONFASTINGon Cholesterol [Mass/Vol] 181 mg/dL <200 mg/dL [facility] HDL Cholesterol, Nonfasting 43 mg/dL >39 mg/dL [facility] LDL Cholesterol, Nonfasting 113 mg/dL High <100 mg/dL [facility] LDL/HDL Ratio, Nonfasting 2.63 mg/dL High <2.54 mg/dL [facility] Non HDL Cholesterol, Nonfasting 138 mg/dL High <130 mg/dL [facility] Total Chol/HDL Ratio, Nonfasting 4.21 mg/dL <5.10 mg/dL [facility] Triglycerides, Nonfasting 125 mg/dL <150 mg/dL [facility] VLDL Cholesterol, Nonfasting 25 mg/dL <30 mg/dL [facility] MAGNESIUM BLDon 01-26-2024 Magnesium [Mass/Vol] 2.2 mg/dL 1.7 - 2 .3 mg/dL [facility] PHOSPHORUS INORGANICon 01-25 Phosphate [Mass/Vol] 3.8 mg/dL 2.7 - 4 .8 mg/dL [facility] US Kidney - bilateral and Ur inary bladderon 01-26-2024 [facility] VITAMIN D 25 HYDROXYon 01-25 25-hydroxyvitamin D3 [Mass/Vol] 36.6 ng/mL 31.0 - 80.0 ng/mL [facility] No Panel Informationon 09-07 Culture Urine >100,000 cfu/ml Multiple bacterial morphotypes present. Probable Contamination. Suggest recollection if clinically indicated. [facility] CBC panel Auto (Bld)on 03-18 Erythrocyte distribution width (RBC) [Ratio] 13.4 % Normal 11.5-15.0 [facility] Comment on above: Order Comment: Speci men Type: BLOOD SPECIMENOrdering Facility: [facility] Address: [address] [place], [place] [id number] Performed By: #### 5 8410-2 ####[facility] LABCLIA [id number] [place] [address] [place] Hematocrit (Bld) [Volume fraction] 29.5 % Low 39.0-51.0 [facility] Comment on above: Order Comment: Speci men Type: BLOOD SPECIMENOrdering Facility: [facility] Address: [address] Performed By: #### 5 8410-2 ####[facility] LABIA [id number] [address] STATES OF [facility] Hemoglobin (Bld) [Mass/Vol] 9.6 g/dL Low 13.0-17.0 [facility] Comment on above: Order Comment: Speci men Type: BLOOD SPECIMENOrdering Facility: [facility] Address: [address] [place] [address] Performed By: #### 5 8410-2 ####[facility] LABIA [id number] [address] [place] MCH (RBC) [Entitic mass] 27.8 pg Normal 26.0-34.0 [facility] Comment on above: Order Comment: Speci men Type: BLOOD SPECIMENOrdering Facility: [facility] Address: [address] [place], [place] [address] Performed By: #### 5 8410-2 ####[facility] LABIA [id number] [address] [place] MCHC (RBC) [Mass/Vol] 32.5 g/dL Normal 30.5-36.0 [facility] Comment on above: Order Comment: Speci men Type: BLOOD SPECIMENOrdering Facility: [facility] Address: [address] [place], [place] [address] Performed By: #### 5 8410-2 ####[facility] LABIA [id number] [place] [address] [place] MCV (RBC) [Entitic vol] 85.5 fL Normal 80.0-100.0 [facility] Comment on above: Order Comment: Speci men Type: BLOOD SPECIMENOrdering Facility: [facility] Address: [address] [place], [place] [address] Performed By: #### 5 8410-2 ####[facility] LABCLIA [id number] [place] [address] [place] Nucleated RBC (Bld) [#/Vol] 10*3/uL Normal <0.01 [facility] Comment on above: Order Comment: Speci men Type: BLOOD SPECIMENOrdering Facility: [facility] Address: [address] [place] [address] Performed By: #### 5 8410-2 ####[facility] LABIA [id number] [place] [address] [place] Platelet mean volume (Bld) [Entitic vol] 9.5 fL Normal 9.0-12.7 [facility] Comment on above: Order Comment: Speci men Type: BLOOD SPECIMENOrdering Facility: [facility] Address: [address] [place] [address] Performed By: #### 5 8410-2 ####[facility] [id number] [place] [address] [place] Platelets (Bld) [#/Vol] 278 10*3/uL Normal 150-400 [facility] Comment on above: Order Comment: Speci men Type: BLOOD SPECIMENOrdering Facility: [facility] Address: [address] [place], [place] [address] Performed By: #### 5 8410-2 ####[facility] [id number] [place] [address] [place] RBC (Bld) [#/Vol] 3.45 10*6/uL Low 4.20-6.00 [facility] Comment on above: Order Comment: Speci men Type: BLOOD SPECIMENOrdering Facility: [facility] Address: [address] [place], [place] [address] Performed By: #### 5 8410-2 ####[facility] LABIA [id number] [place] [address] [place] WBC (Bld) [#/Vol] 11.46 10*3/uL High 3.70-11.00 [facility] Comment on above: Order Comment: Speci men Type: BLOOD SPECIMENOrdering Facility: [facility] Address: [address] [place], [place] [address] Performed By: #### 5 8410-2 ####[facility] LABCLIA [id number] [place] [address] [place] CONSULT PROGon 03-18-2023 CONSULT PROG Normal [facility] Comprehensive metabolic 2000 panelon 03-18-2023 Albumin [Mass/Vol] 3.9 g/dL Normal 3.9-4.9 [facility] Comment on above: Order Comment: Speci men Type: BLOOD SPECIMENOrdering Facility: [facility] Address: [address] [place], [place] [address] Performed By: #### 2 777-1, 67458-6, 96351-0 ####[facility] LABCLIA [id number] [place] [address] [place] ALP [Catalytic activity/Vol] 59 U/L Normal 38-113 [facility] Comment on above: Order Comment: Speci men Type: BLOOD SPECIMENOrdering Facility: [facility] Address: [address] [place], [place] [address] Performed By: #### 2 777-1, 25176-4, 24570-8 ####[facility] LABCLIA [id number] [address] [place] ALT [Catalytic activity/Vol] 28 U/L Normal 10-54 [facility] Comment on above: Order Comment: Speci men Type: BLOOD SPECIMENOrdering Facility: [facility] Address: [address] [place], [place] [address] Performed By: #### 2 777-1, 12347-8, 12955-9 ####[facility] LABCLIA [id number] [place] [id number] [place] Anion gap [Moles/Vol] 14 mmol/L Normal 9-18 [facility] Comment on above: Order Comment: Speci men Type: BLOOD SPECIMENOrdering Facility: [facility] Address: [address] [place] [address] Performed By: #### 2 777-1, 99030-1, ####[facility] LABCLIA [id number] [place] [address] [place] AST [Catalytic activity/Vol] 19 U/L Normal 14-40 [facility] Comment on above: Order Comment: Speci men Type: BLOOD SPECIMENOrdering Facility: [facility] Address: [address] [place] [address] Result Comment: Resu lts may be falsely increased due to interference from hemolysis. Suggest reorder as clinically indicated. Performed By: #### 2 777-1, , ####[facility] LABCLIA [id number] [address] [place] Bilirubin [Mass/Vol] 1.0 mg/dL Normal 0.2-1.3 [facility] Comment on above: Order Comment: Speci men Type: BLOOD SPECIMENOrdering Facility: [facility] Address: [address] [place] [address] Performed By: #### 2 777-1, , ####[facility] LABCLIA [id number] [address] [place] Calcium [Mass/Vol] 8.6 mg/dL Normal 8.5-10.2 [facility] Comment on above: Order Comment: Speci men Type: BLOOD SPECIMENOrdering Facility: [facility] Address: [address] [place] [address] Performed By: #### 2 777-1, 69792-0, ####[facility] LABCLIA [id number] [place] [address] [place] Chloride [Moles/Vol] 99 mmol/L Normal 97-105 [facility] Comment on above: Order Comment: Speci men Type: BLOOD SPECIMENOrdering Facility: [facility] Address: [address] [place] [address] Performed By: #### 2 777-1, 08940-4, 46996-8 ####[facility] LABCLIA [id number] [place] [address] [place] CO2 [Moles/Vol] 24 mmol/L Normal 22-30 [facility] Comment on above: Order Comment: Speci men Type: BLOOD SPECIMENOrdering Facility: [facility] Address: [address] [place] [address] Performed By: #### 2 777-1, 16092-7, 58691-3 ####[facility] LABCLIA [id number] [place] [address] [place] Creatinine [Mass/Vol] 0.28 mg/dL Low 0.73-1.22 [facility] Comment on above: Order Comment: Speci men Type: BLOOD SPECIMENOrdering Facility: [facility] Address: [address] [place] [address] Performed By: #### 2 777-1, 84908-4, 64511-8 ####[facility] LABCLIA [id number] [place] [address] [place] GFR/1.73 sq M.predicted among non-blacks MDRD (S/P/Bld) [Vol rate/Area] mL/min/{1.73_m2} Normal >=60 [facility] Comment on above: Order Comment: Speci men Type: BLOOD SPECIMENOrdering Facility: [facility] Address: [address] [place] [address] Result Comment: Mary mated Glomerular Filtration Rate [...] GFR. Performed By: #### 2 777-1, , ####[facility] LABCLIA [id number] [address] [address] [place] Glucose [Mass/Vol] 116 mg/dL High 74-99 [facility] Comment on above: Order Comment: Frantz thurman Type: BLOOD SPECIMENOrdering Facility: [facility] Address: [address] [place] [address] Result Comment: The [place] [employer] (ADA) provides guidance for cutoff [...] Standards of Medical Care in Diabetes 2016, [place] [employer]. Diabetes Care. 2016.39(Suppl 1). Performed By: #### 2 777-1, , ####[facility] LABCLIA [id number] [place] [id number] [place] Potassium [Moles/Vol] 3.3 mmol/L Low 3.7-5.1 [facility] Comment on above: Order Comment: Frantz thurman Type: BLOOD SPECIMENOrdering Facility: [facility] Address: [address] [place] [address] Performed By: #### 2 777-1, , ####[facility] LABCLIA [id number] [facility] [address] [address] [place] Protein [Mass/Vol] 6.2 g/dL Low 6.3-8.0 [facility] Comment on above: Order Comment: Speci men Type: BLOOD SPECIMENOrdering Facility: [facility] Address: [address] [place] [address] Performed By: #### 2 777-1, 51422-0, ####[facility] LABIA [id number] [place] [address] [place] Sodium [Moles/Vol] 137 mmol/L Normal 136-144 [facility] Comment on above: Order Comment: Speci men Type: BLOOD SPECIMENOrdering Facility: [facility] Address: [address] [place] [address] Performed By: #### 2 777-1, 30916-9, ####[facility] LABIA [id number] [place] [address] [place] Urea nitrogen [Mass/Vol] 2 mg/dL Low 9-24 [facility] Comment on above: Order Comment: Speci men Type: BLOOD SPECIMENOrdering Facility: [facility] Address: [address] [place], [place] [address] Performed By: #### 2 777-1, 30089-9, ####[facility] LABIA [id number] [place] [id number] [place] Magnesium SerPl-mCncon 03-18 Magnesium [Mass/Vol] 2.1 mg/dL Normal 1.7-2.3 [facility] Comment on above: Order Comment: Speci men Type: BLOOD SPECIMENOrdering Facility: [facility] Address: [address] [place] [address] Performed By: #### 2 777-1, 97215-5, 45848-5 ####[facility] LABIA [id number] [place] [id number] [place] Phosphate SerPl-mCncon 03-18 Phosphate [Mass/Vol] 2.4 mg/dL Low 2.7-4.8 [facility] Comment on above: Order Comment: Speci men Type: BLOOD SPECIMENOrdering Facility: [facility] Address: [address] [place] [address] Performed By: #### 2 777-1, 11340-4, 18015-6 ####[facility] LABCLIA [id number] [address] [place] THERAPY NTon 03-18-2023 THERAPY NT Normal [facility] Bilirub Conj SerPl-mCncon Bilirubin.conjugated [Mass/Vol] 0.5 mg/dL High <0.2 [facility] Comment on above: Order Comment: Speci men Type: BLOOD SPECIMENOrdering Facility: [facility] Address: [address] [place] [address] Result Comment: Resu lts may be falsely decreased due to interference from hemolysis. Suggest reorder as clinically indicated. Performed By: #### 2 777-1, 19978-1, 43955-4, 54787-0 ####[facility] LABCLIA [id number] [place] [address] [place] CBC panel Auto (Bld)on 03-17 Erythrocyte distribution width (RBC) [Ratio] 13.3 % Normal 11.5-15.0 [facility] Comment on above: Order Comment: Speci men Type: BLOOD SPECIMENOrdering Facility: [facility] Address: [address] [place] [address] Performed By: #### 5 8410-2 ####[facility] LABCLIA [id number] [address] [place] Hematocrit (Bld) [Volume fraction] 32.5 % Low 39.0-51.0 [facility] Comment on above: Order Comment: Speci men Type: BLOOD SPECIMENOrdering Facility: [facility] Address: [address] [place] [address] Performed By: #### 5 8410-2 ####[facility] LABCLIA [id number] [address] STATES OF [facility] Hemoglobin (Bld) [Mass/Vol] 10.5 g/dL Low 13.0-17.0 [facility] Comment on above: Order Comment: Speci men Type: BLOOD SPECIMENOrdering Facility: [facility] Address: [address] [place] [address] Performed By: #### 5 8410-2 ####[facility] LABIA [id number] [address] [place] MCH (RBC) [Entitic mass] 27.9 pg Normal 26.0-34.0 [facility] Comment on above: Order Comment: Speci men Type: BLOOD SPECIMENOrdering Facility: [facility] Address: [address] [place] [address] Performed By: #### 5 8410-2 ####[facility] LABIA [id number] [address] [place] MCHC (RBC) [Mass/Vol] 32.3 g/dL Normal 30.5-36.0 [facility] Comment on above: Order Comment: Speci men Type: BLOOD SPECIMENOrdering Facility: [facility] Address: [address] Performed By: #### 5 8410-2 ####[facility] LABCLIA [id number] [address] [place] MCV (RBC) [Entitic vol] 86.4 fL Normal 80.0-100.0 [facility] Comment on above: Order Comment: Speci men Type: BLOOD SPECIMENOrdering Facility: [facility] Address: [address] [place], [place] [address] Performed By: #### 5 8410-2 ####[facility] LABCLIA [id number] [place] [address] [place] Nucleated RBC (Bld) [#/Vol] 10*3/uL Normal <0.01 [facility] Comment on above: Order Comment: Speci men Type: BLOOD SPECIMENOrdering Facility: [facility] Address: [address] [place] [address] Performed By: #### 5 8410-2 ####[facility] LABIA [id number] [place] [address] [place] Platelet mean volume (Bld) [Entitic vol] 9.9 fL Normal 9.0-12.7 [facility] Comment on above: Order Comment: Speci men Type: BLOOD SPECIMENOrdering Facility: [facility] Address: [address] [place] [address] Performed By: #### 5 8410-2 ####[facility] [id number] [place] [address] [place] Platelets (Bld) [#/Vol] 123 10*3/uL Low 150-400 [facility] Comment on above: Order Comment: Speci men Type: BLOOD SPECIMENOrdering Facility: [facility] Address: [address] [place], [place] [address] Performed By: #### 5 8410-2 ####[facility] LABIA [id number] [place] [address] [place] RBC (Bld) [#/Vol] 3.76 10*6/uL Low 4.20-6.00 [facility] Comment on above: Order Comment: Speci men Type: BLOOD SPECIMENOrdering Facility: [facility] Address: [address] [place], [place] [address] Performed By: #### 5 8410-2 ####[facility] LABIA [id number] [place] [address] [place] WBC (Bld) [#/Vol] 11.91 10*3/uL High 3.70-11.00 [facility] Comment on above: Order Comment: Speci men Type: BLOOD SPECIMENOrdering Facility: [facility] Address: [address] [place] [address] Performed By: #### 5 8410-2 ####[facility] LABCLIA [id number] [place] [address] [place] CONSULTon 03-17-2023 CONSULT Normal [facility] CONSULT PROGon 03-17-2023 CONSULT PROG Normal [facility] Comprehensive metabolic 2000 panelon 03-17-2023 Albumin [Mass/Vol] 4.0 g/dL Normal 3.9-4.9 [facility] Comment on above: Order Comment: Speci men Type: BLOOD SPECIMENOrdering Facility: [facility] Address: [address] [place] [address] Performed By: #### 2 777-1, 31713-8, 70989-3, 84370-3 ####[facility] LABIA [id number] [place] [address] [place] ALP [Catalytic activity/Vol] 60 U/L Normal 38-113 [facility] Comment on above: Order Comment: Speci men Type: BLOOD SPECIMENOrdering Facility: [facility] Address: [address] [place] [address] Performed By: #### 2 777-1, 66869-5, 14945-1, 36401-3 ####[facility] LABIA [id number] [place] [address] [place] ALT [Catalytic activity/Vol] 32 U/L Normal 10-54 [facility] Comment on above: Order Comment: Speci men Type: BLOOD SPECIMENOrdering Facility: [facility] Address: [address] [place] [address] Result Comment: Resu lts may be falsely increased due to interference from hemolysis. Suggest reorder as clinically indicated. Performed By: #### 2 777-1, 98053-5, 21288-7, 14071-0 ####[facility] LABCLIA [id number] [place] [id number] [place] Anion gap [Moles/Vol] 18 mmol/L Normal 9-18 [facility] Comment on above: Order Comment: Speci men Type: BLOOD SPECIMENOrdering Facility: [facility] Address: [address] [place] [address] Performed By: #### 2 777-1, 64659-6, , 01228-8 ####[facility] LABCLIA [id number] [place] [address] [place] AST [Catalytic activity/Vol] 35 U/L Normal 14-40 [facility] Comment on above: Order Comment: Speci men Type: BLOOD SPECIMENOrdering Facility: [facility] Address: [address] Result Comment: Resu lts may be falsely increased due to interference from hemolysis. Suggest reorder as clinically indicated. Performed By: #### 2 777-1, 47614-3, , 90395-5 ####[facility] LABCLIA [id number] [place] [address] [place] Bilirubin [Mass/Vol] 1.7 mg/dL High 0.2-1.3 [facility] Comment on above: Order Comment: Speci men Type: BLOOD SPECIMENOrdering Facility: [facility] Address: [address] [place] [address] Performed By: #### 2 777-1, 65925-3, , 30573-5 ####[facility] LABCLIA [id number] [place] [address] [place] Calcium [Mass/Vol] 8.8 mg/dL Normal 8.5-10.2 [facility] Comment on above: Order Comment: Speci men Type: BLOOD SPECIMENOrdering Facility: [facility] Address: [address] Performed By: #### 2 777-1, 85968-0, , 40505-7 ####[facility] LABCLIA [id number] [place] [address] [place] Chloride [Moles/Vol] 103 mmol/L Normal 97-105 [facility] Comment on above: Order Comment: Speci men Type: BLOOD SPECIMENOrdering Facility: [facility] Address: [address] [place] [place] [address] Performed By: #### 2 777-1, 54242-3, , 18396-3 ####[facility] LABCLIA [id number] [place] [address] [place] CO2 [Moles/Vol] 17 mmol/L Low 22-30 [facility] Comment on above: Order Comment: Speci men Type: BLOOD SPECIMENOrdering Facility: [facility] Address: [address] [place] [address] Performed By: #### 2 777-1, 46863-8, , 95832-3 ####[facility] LABCLIA [id number] [place] [address] [place] Creatinine [Mass/Vol] 0.35 mg/dL Low 0.73-1.22 [facility] Comment on above: Order Comment: Speci men Type: BLOOD SPECIMENOrdering Facility: [facility] Address: [address] [place] [id number] Performed By: #### 2 777-1, 26459-1, , 17500-3 ####[facility] LABCLIA [id number] [place] [address] [place] GFR/1.73 sq M.predicted among non-blacks MDRD (S/P/Bld) [Vol rate/Area] mL/min/{1.73_m2} Normal >=60 [facility] Comment on above: Order Comment: Frantz thurman Type: BLOOD SPECIMENOrdering Facility: [facility] Address: [address] [place], [place] [id number] Result Comment: Mary mated Glomerular Filtration Rate [...] actual GFR. Performed By: #### 2 777-1, 52461-7, , 66236-1 ####[facility] LABCLIA [id number] [place] [id number] [place] Glucose [Mass/Vol] 71 mg/dL Low 74-99 [facility] Comment on above: Order Comment: Frantz thurman Type: BLOOD SPECIMENOrdering Facility: [facility] Address: [address] [place], [place] [phone] Result Comment: The [place] [employer] (ADA) provides guidance for cutoff [...] Standards of Medical Care in Diabetes 2016, [place] [employer]. Diabetes Care. 2016.39(Suppl 1). Performed By: #### 2 777-1, 04194-2, 50480-6, 79097-5 ####[facility] LABCLIA [id number] [address] [address] [place] Potassium [Moles/Vol] 4.2 mmol/L Normal 3.7-5.1 [facility] Comment on above: Order Comment: Speci men Type: BLOOD SPECIMENOrdering Facility: [facility] Address: [address] [place] [address] Performed By: #### 2 777-1, 32939-6, , 59247-4 ####[facility] LABCLIA [id number] [place] [address] [place] Protein [Mass/Vol] 6.5 g/dL Normal 6.3-8.0 [facility] Comment on above: Order Comment: Speci men Type: BLOOD SPECIMENOrdering Facility: [facility] Address: [address] [place] [address] Performed By: #### 2 777-1, 38193-9, , 53997-2 ####[facility] LABCLIA [id number] [place] [address] [place] Sodium [Moles/Vol] 138 mmol/L Normal 136-144 [facility] Comment on above: Order Comment: Speci men Type: BLOOD SPECIMENOrdering Facility: [facility] Address: [address] [place] [address] Performed By: #### 2 777-1, 05092-6, , 42888-8 ####[facility] LABCLIA [id number] [place] [id number] [place] Urea nitrogen [Mass/Vol] 4 mg/dL Low 9-24 [facility] Comment on above: Order Comment: Speci men Type: BLOOD SPECIMENOrdering Facility: [facility] Address: [address] [place] [address] Performed By: #### 2 777-1, 44835-7, , 34831-9 ####[facility] LABCLIA [id number] [place] [id number] [place] Gas and Carbon monoxide pane l (BldV)on 03-17-2023 BASE DEFICIT, VENOUS -5 mmol/L Low -2-0 [facility] Comment on above: Order Comment: Speci men Type: VENOUS BLOOD SPECIMENOrdering Facility: [facility] Address: [address] [place] [address] Performed By: #### 2 4344-4 ####[facility] LABCLIA [id number] [place] [address] [place] Body temperature 98.6 [degF] Normal [facility] Comment on above: Order Comment: Speci men Type: VENOUS BLOOD SPECIMENOrdering Facility: [facility] Address: [address] [place] [address] Performed By: #### 2 4344-4 ####[facility] LABIA [id number] [place] [address] [place] Calcium.ionized (Bld) [Mass/Vol] 1.18 mmol/L Normal 1.08-1.30 [facility] Comment on above: Order Comment: Speci men Type: VENOUS BLOOD SPECIMENOrdering Facility: [facility] Address: [address] [place], [place] [address] Performed By: #### 2 4344-4 ####[facility] LABIA [id number] [address] [place] Calcium.ionized adjusted to pH 7.4 (BldA) [Moles/Vol] 1.18 mmol/L Normal 1.08-1.30 [facility] Comment on above: Order Comment: Speci men Type: VENOUS BLOOD SPECIMENOrdering Facility: [facility] Address: [address] [place], [place] [address] Performed By: #### 2 4344-4 ####[facility] LABIA [id number] [place] [address] [place] Carboxyhemoglobin (BldV) [Mass fraction] 1.3 % Normal 0.0-2.0 [facility] Comment on above: Order Comment: Speci men Type: VENOUS BLOOD SPECIMENOrdering Facility: [facility] Address: [address] [place] [address] Result Comment: Carb oxyhemoglobin Reference Range for Smokers: 2.0-8.0% Performed By: #### 2 4344-4 ####[facility] LABCLIA [id number] [place] [address] [place] CO2 (BldV) [Partial pressure] 30 mm[Hg] Low 42-55 [facility] Comment on above: Order Comment: Speci men Type: VENOUS BLOOD SPECIMENOrdering Facility: [facility] Address: [address] [place] [address] Performed By: #### 2 4344-4 ####[facility] LABCLIA [id number] [place] [address] [place] CO2 [Moles/Vol] 19 mmol/L Low 25-29 [facility] Comment on above: Order Comment: Speci men Type: VENOUS BLOOD SPECIMENOrdering Facility: [facility] Address: [address] [place] [address] Performed By: #### 2 4344-4 ####[facility] LABCLIA [id number] [place] [address] [place] Glucose [Mass/Vol] 75 mg/dL Normal 60-105 [facility] Comment on above: Order Comment: Speci men Type: VENOUS BLOOD SPECIMENOrdering Facility: [facility] Address: [address] Performed By: #### 2 4344-4 ####[facility] LABCLIA [id number] [place] [address] [place] HCO3 (Bld) [Moles/Vol] 19 mmol/L Low 24-28 [facility] Comment on above: Order Comment: Speci men Type: VENOUS BLOOD SPECIMENOrdering Facility: [facility] Address: [address] Performed By: #### 2 4344-4 ####[facility] LABIA [id number] [place] [address] [place] Hematocrit (Bld) [Volume fraction] 30.5 % Low 39.0-51.0 [facility] Comment on above: Order Comment: Speci men Type: VENOUS BLOOD SPECIMENOrdering Facility: [facility] Address: [address] Performed By: #### 2 4344-4 ####[facility] LABIA [id number] [place] [address] [place] Hemoglobin (Bld) [Mass/Vol] 9.9 g/dL Low 13.0-17.0 [facility] Comment on above: Order Comment: Speci men Type: VENOUS BLOOD SPECIMENOrdering Facility: [facility] Address: [address] [place] [address] Performed By: #### 2 4344-4 ####[facility] LABIA [id number] [place] [address] [place] Lactate [Moles/Vol] 0.7 mmol/L Normal 0.5-2.2 [facility] Comment on above: Order Comment: Speci men Type: VENOUS BLOOD SPECIMENOrdering Facility: [facility] Address: [address] [place] [address] Performed By: #### 2 4344-4 ####[facility] LABIA [id number] [address] [place] Methemoglobin (Bld) [Mass fraction] 0.9 % Normal 0.0-1.5 [facility] Comment on above: Order Comment: Speci men Type: VENOUS BLOOD SPECIMENOrdering Facility: [facility] Address: [address] [place] [address] Performed By: #### 2 4344-4 ####[facility] LABIA [id number] [place] O2 THERAPY RA=Room Air Normal [facility] Comment on above: Order Comment: Speci men Type: VENOUS BLOOD SPECIMENOrdering Facility: [facility] Address: [address] [place], [place] [address] Performed By: #### 2 4344-4 ####[facility] LABCLIA [id number] [place] [address] [place] Oxygen (BldV) [Partial pressure] 64 mm[Hg] High 35-45 [facility] Comment on above: Order Comment: Speci men Type: VENOUS BLOOD SPECIMENOrdering Facility: [facility] Address: [address] [place], [place] [address] Performed By: #### 2 4344-4 ####[facility] LABCLIA [id number] [place] [address] [place] Oxygen saturation in Venous blood 93 % High 60-85 [facility] Comment on above: Order Comment: Speci men Type: VENOUS BLOOD SPECIMENOrdering Facility: [facility] Address: [address] [place], [place] [address] Performed By: #### 2 4344-4 ####[facility] LABCLIA [id number] [place] [address] [place] Oxyhemoglobin (BldV) [Mass fraction] 91 % High 60-85 [facility] Comment on above: Order Comment: Speci men Type: VENOUS BLOOD SPECIMENOrdering Facility: [facility] Address: [address] [place], [place] [address] Performed By: #### 2 4344-4 ####[facility] LABCLIA [id number] [place] [address] [place] pH (BldV) 7.40 [pH] Normal 7.32-7.42 [facility] Comment on above: Order Comment: Speci men Type: VENOUS BLOOD SPECIMENOrdering Facility: [facility] Address: [address] [place], [place] [address] Performed By: #### 2 4344-4 ####[facility] LABCLIA [id number] [place] [address] [place] Potassium [Moles/Vol] 3.4 mmol/L Low 3.5-5.0 [facility] Comment on above: Order Comment: Speci men Type: VENOUS BLOOD SPECIMENOrdering Facility: [facility] Address: [address] [place], [place] [address] Performed By: #### 2 4344-4 ####[facility] LABIA [id number] [place] [address] [place] Sodium [Moles/Vol] 141 mmol/L Normal 136-144 [facility] Comment on above: Order Comment: Speci men Type: VENOUS BLOOD SPECIMENOrdering Facility: [facility] Address: [address] [place] [address] Performed By: #### 2 4344-4 ####[facility] LABIA [id number] [place] [address] [place] Magnesium SerPl-mCncon 03-17 Magnesium [Mass/Vol] 1.9 mg/dL Normal 1.7-2.3 [facility] Comment on above: Order Comment: Speci men Type: BLOOD SPECIMENOrdering Facility: [facility] Address: [address] [place], [place] [address] Performed By: #### 2 777-1, 15559-2, 95443-0, 45598-2 ####[facility] LABIA [id number] [place] [id number] [place] NUTRITIONon 03-17-2023 NUTRITION Normal [facility] bilirubin panel [Ma ss/Vol]on 03-17-2023 Bilirubin [Mass/Vol] 1.4 mg/dL High 0.2-1.3 [facility] Comment on above: Order Comment: Speci men Type: BLOOD SPECIMENOrdering Facility: [facility] Address: [address] [place] [address] Performed By: #### 5 0189-0 ####[facility] LABIA [id number] [address] Bilirubin.conjugated [Mass/Vol] 0.8 mg/dL High <0.2 [facility] Comment on above: Order Comment: Speci men Type: BLOOD SPECIMENOrdering Facility: [facility] Address: [address] [place] [address] Performed By: #### 5 0189-0 ####[facility] LABIA [id number] [address] Bilirubin.indirect [Mass/Vol] 0.6 mg/dL Normal <1.4 [facility] Comment on above: Order Comment: Rosalindi men Type: BLOOD SPECIMENOrdering Facility: [facility] Address: [address] [place] [address] Performed By: #### 5 0189-0 ####[facility] [id number] [address] PT panel Coag (PPP)on 2022 INR Coag (PPP) [Relative time] 1.0 {INR} Normal 0.9-1.3 [facility] Comment on above: Order Comment: Rosalindi cuca Type: BLOOD SPECIMENOrdering Facility: [facility] Address: [address] [place] [address] Result Comment: Gale min K Antagonist (VKA) Therapeutic Range: INR 2 to 3 (Target INR of 2.5)Note: For patients treated with VKA drugs, such as warfarin, the [place] [employer] 2012 Guideline recommends [...] al. Chest 2012, 141:7S-47SNishimlisa RA, et al. [facility] 2017, 70: 252-289 Performed By: #### 1 4979-9, 90035-0 ####[facility] [id number] [place] [address] [place] PT Coag (PPP) [Time] 10.6 s Normal 9.7-13.0 [facility] Comment on above: Order Comment: Speci men Type: BLOOD SPECIMENOrdering Facility: [facility] Address: [address] [place] [address] Performed By: #### 1 4979-9, 88792-9 ####[facility] [id number] [place] [address] [place] Phosphate SerPl-mCncon 03-17 Phosphate [Mass/Vol] 2.7 mg/dL Normal 2.7-4.8 [facility] Comment on above: Order Comment: Speci men Type: BLOOD SPECIMENOrdering Facility: [facility] Address: [address] [place] [address] Performed By: #### 2 777-1, 32527-1, 95880-1, 55295-8 ####[facility] [id number] [place] [address] [place] THERAPY NTon 03-17-2023 THERAPY NT Normal [facility] URINALYSIS, REFLEX MICROSCOP ICon 03-17-2023 Bilirubin Ql (U) Negative Normal Negative [facility] Comment on above: Order Comment: Speci men Type: URINE SPECIMENOrdering Facility: [facility] Address: [address] [place] [address] Performed By: #### L [id number] ####[facility] LABCLIA [id number] [place] [address] [place] Clarity (Unsp spec) Turbid Abnormal Clear [facility] Comment on above: Order Comment: Speci men Type: URINE SPECIMENOrdering Facility: [facility] Address: [address] [place] [address] Performed By: #### L [id number] ####[facility] LABCLIA [id number] [place] [address] [place] Color (U) Yellow Normal Yellow [facility] Comment on above: Order Comment: Speci men Type: URINE SPECIMENOrdering Facility: [facility] Address: [address] [place] [address] Performed By: #### L [id number] ####[facility] LABCLIA [id number] [place] [address] [place] Glucose Test strip (U) [Mass/Vol] Trace Normal Trace, Negative [facility] Comment on above: Order Comment: Speci men Type: URINE SPECIMENOrdering Facility: [facility] Address: [address] [place] [address] Performed By: #### L [id number] ####[facility] LABCLIA [id number] [place] [address] [place] Hemoglobin Ql (U) Negative Normal Negative, Trace [facility] Comment on above: Order Comment: Speci men Type: URINE SPECIMENOrdering Facility: [facility] Address: [address] Performed By: #### L [id number] ####[facility] LABIA [id number] [place] [address] [place] Ketones Ql (U) 1+ Abnormal Trace, Negative [facility] Comment on above: Order Comment: Speci men Type: URINE SPECIMENOrdering Facility: [facility] Address: [address] [place], [place] [address] Performed By: #### L [id number] ####[facility] LABCLIA [id number] [place] [address] [place] Leukocyte esterase Test strip Ql (U) Negative Normal Negative, 25 Patt/uL [facility] Comment on above: Order Comment: Speci men Type: URINE SPECIMENOrdering Facility: [facility] Address: [address] [place] [address] Performed By: #### L [id number] ####[facility] LABCLIA [id number] [place] [address] [place] Nitrite Ql (U) Negative Normal Negative [facility] Comment on above: Order Comment: Speci men Type: URINE SPECIMENOrdering Facility: [facility] Address: [address] [place] [address] Performed By: #### L [id number] ####[facility] LABIA [id number] [place] [address] [place] pH (U) 5.5 [pH] Normal 5.0-8.0 [facility] Comment on above: Order Comment: Speci men Type: URINE SPECIMENOrdering Facility: [facility] Address: [address] [place] [address] Performed By: #### L [id number] ####[facility] LABIA [id number] [place] [address] [place] Protein (U) [Mass/Vol] Negative Normal Trace, Negative [facility] Comment on above: Order Comment: Speci men Type: URINE SPECIMENOrdering Facility: [facility] Address: [address] [place] [address] Performed By: #### L [id number] ####[facility] LABIA [id number] [place] [address] [place] Specific gravity (U) [Rel density] 1.033 High 1.005-1.030 [facility] Comment on above: Order Comment: Speci men Type: URINE SPECIMENOrdering Facility: [facility] Address: [address] [place] [address] Performed By: #### L [id number] ####[facility] LABCLIA [id number] [address] STATES OF [facility] Urobilinogen Ql (U) Negative Normal Negative [facility] Comment on above: Order Comment: Speci men Type: URINE SPECIMENOrdering Facility: [facility] Address: [address] [address] Performed By: #### L [id number] ####[facility] LABIA [id number] [place] [address] [place] aPTT PPPon 03-17-2023 aPTT Coag (PPP) [Time] 26.8 s Normal 23.0-32.4 [facility] Comment on above: Order Comment: Speci men Type: BLOOD SPECIMENOrdering Facility: [facility] Address: [address] [place] [address] Performed By: #### 1 4979-9, 43039-1 ####[facility] LABIA [id number] [place] [address] [place] ALLIED HEALTHon 03-16-2023 ALLIED HEALTH Normal [facility] CASE MGT INIT ASSESon 2022 CASE MGT INIT ASSES Normal [facility] CBC panel Auto (Bld)on 03-16 Erythrocyte distribution width (RBC) [Ratio] 13.2 % Normal 11.5-15.0 [facility] Comment on above: Order Comment: Speci men Type: BLOOD SPECIMENOrdering Facility: [facility] Address: [address] [place], [place] [address] Performed By: #### 5 8410-2 ####[facility] LABCLIA [id number] [address] [place] Hematocrit (Bld) [Volume fraction] 26.4 % Low 39.0-51.0 [facility] Comment on above: Order Comment: Speci men Type: BLOOD SPECIMENOrdering Facility: [facility] Address: [address] [place] [address] Performed By: #### 5 8410-2 ####[facility] LABCLIA [id number] [address] STATES OF [facility] Hemoglobin (Bld) [Mass/Vol] 9.0 g/dL Low 13.0-17.0 [facility] Comment on above: Order Comment: Speci men Type: BLOOD SPECIMENOrdering Facility: [facility] Address: [address] [place] [address] Performed By: #### 5 8410-2 ####[facility] LABCLIA [id number] [address] [place] MCH (RBC) [Entitic mass] 28.7 pg Normal 26.0-34.0 [facility] Comment on above: Order Comment: Speci men Type: BLOOD SPECIMENOrdering Facility: [facility] Address: [address] [place] [address] Performed By: #### 5 8410-2 ####[facility] LABIA [id number] [address] [place] MCHC (RBC) [Mass/Vol] 34.1 g/dL Normal 30.5-36.0 [facility] Comment on above: Order Comment: Speci men Type: BLOOD SPECIMENOrdering Facility: [facility] Address: [address] [place], [place] [address] Performed By: #### 5 8410-2 ####[facility] LABIA [id number] [address] [place] MCV (RBC) [Entitic vol] 84.1 fL Normal 80.0-100.0 [facility] Comment on above: Order Comment: Speci men Type: BLOOD SPECIMENOrdering Facility: [facility] Address: [address] [place] [address] Performed By: #### 5 8410-2 ####[facility] LABCLIA [id number] [place] [address] [place] Nucleated RBC (Bld) [#/Vol] 10*3/uL Normal <0.01 [facility] Comment on above: Order Comment: Speci men Type: BLOOD SPECIMENOrdering Facility: [facility] Address: [address] Performed By: #### 5 8410-2 ####[facility] LABIA [id number] [place] [address] [place] Platelet mean volume (Bld) [Entitic vol] 9.5 fL Normal 9.0-12.7 [facility] Comment on above: Order Comment: Speci men Type: BLOOD SPECIMENOrdering Facility: [facility] Address: [address] Performed By: #### 5 8410-2 ####[facility] LABIA [id number] [place] [address] [place] Platelets (Bld) [#/Vol] 168 10*3/uL Normal 150-400 [facility] Comment on above: Order Comment: Speci men Type: BLOOD SPECIMENOrdering Facility: [facility] Address: [address] Performed By: #### 5 8410-2 ####[facility] LABIA [id number] [place] [address] [place] RBC (Bld) [#/Vol] 3.14 10*6/uL Low 4.20-6.00 [facility] Comment on above: Order Comment: Speci men Type: BLOOD SPECIMENOrdering Facility: [facility] Address: [address] Performed By: #### 5 8410-2 ####[facility] LABIA [id number] [place] [address] [place] WBC (Bld) [#/Vol] 10.32 10*3/uL Normal 3.70-11.00 [facility] Comment on above: Order Comment: Speci men Type: BLOOD SPECIMENOrdering Facility: [facility] Address: [address] [place] [address] Performed By: #### 5 8410-2 ####[facility] LABIA [id number] [place] [address] [place] [facility] [place] CONSULT PROGon 03-16-2023 CONSULT PROG Normal [facility] CYSTATIN Con 03-16-2023 Cystatin C [Mass/Vol] 0.54 mg/L Low 0.61-0.95 [facility] Comment on above: Order Comment: Speci men Type: BLOOD SPECIMENOrdering Facility: [facility] Address: [address] [place] [address] Performed By: #### C YSTC ####[facility] [id number] [address] CYSTATIN C EGFR 146 mL/min/1.73m??? Normal >=60 [facility] Comment on above: Order Comment: Speci men Type: BLOOD SPECIMENOrdering Facility: [facility] Address: [address] [place] [address] Result Comment: Mary mated Glomerular Filtration Rate [...] actual GFR. Performed By: #### C YSTC ####[facility] LABIA [id number] [place] [address] [place] Comprehensive metabolic 2000 panelon 03-16-2023 Albumin [Mass/Vol] 4.0 g/dL Normal 3.9-4.9 [facility] Comment on above: Order Comment: Speci men Type: BLOOD SPECIMENOrdering Facility: [facility] Address: [address] [place], [place] [id number] Performed By: #### 1 9123-9, 2777-1, HSTNT, 82680-9 ####[facility] LABCLIA [id number] [place] [address] [place] ALP [Catalytic activity/Vol] 34 U/L Low 38-113 [facility] Comment on above: Order Comment: Speci men Type: BLOOD SPECIMENOrdering Facility: [facility] Address: [address] [place] [address] Performed By: #### 1 9123-9, 2777-1, HSTNT, 43163-9 ####[facility] LABCLIA [id number] [place] [address] [place] ALT [Catalytic activity/Vol] 32 U/L Normal 10-54 [facility] Comment on above: Order Comment: Speci men Type: BLOOD SPECIMENOrdering Facility: [facility] Address: [address] [place] [address] Performed By: #### 1 9123-9, 2777-1, HSTNT, 53209-2 ####[facility] LABCLIA [id number] [place] [address] [place] Anion gap [Moles/Vol] 12 mmol/L Normal 9-18 [facility] Comment on above: Order Comment: Speci men Type: BLOOD SPECIMENOrdering Facility: [facility] Address: [address] [place], [place] [address] Performed By: #### 1 9123-9, 2777-1, HSTNT, 38492-8 ####[facility] LABCLIA [id number] [address] [place] [id number] [place] AST [Catalytic activity/Vol] 42 U/L High 14-40 [facility] Comment on above: Order Comment: Speci men Type: BLOOD SPECIMENOrdering Facility: [facility] Address: [address] [place] [address] Performed By: #### 1 9123-9, 2777-1, HSTNT, 61404-5 ####[facility] LABCLIA [id number] [place] [address] [place] Bilirubin [Mass/Vol] 1.4 mg/dL High 0.2-1.3 [facility] Comment on above: Order Comment: Speci men Type: BLOOD SPECIMENOrdering Facility: [facility] Address: [address] [place] [address] Performed By: #### 1 9123-9, 2777-1, HSTNT, 01513-1 ####[facility] LABCLIA [id number] [address] STATES OF [facility] Calcium [Mass/Vol] 8.4 mg/dL Low 8.5-10.2 [facility] Comment on above: Order Comment: Speci men Type: BLOOD SPECIMENOrdering Facility: [facility] Address: [address] [place] [address] Performed By: #### 1 9123-9, 2777-1, HSTNT, 39662-4 ####[facility] LABCLIA [id number] [place] [address] [place] Chloride [Moles/Vol] 106 mmol/L High 97-105 [facility] Comment on above: Order Comment: Speci men Type: BLOOD SPECIMENOrdering Facility: [facility] Address: [address] [place] [address] Performed By: #### 1 9123-9, 2777-1, HSTNT, 52943-9 ####[facility] LABCLIA [id number] [address] [place] CO2 [Moles/Vol] 25 mmol/L Normal 22-30 [facility] Comment on above: Order Comment: Frantz thurman Type: BLOOD SPECIMENOrdering Facility: [facility] Address: [address] [place] [address] Performed By: #### 1 9123-9, 2777-1, HSTNT, ####[facility] LABCLIA [id number] [place] [address] [place] Creatinine [Mass/Vol] 0.28 mg/dL Low 0.73-1.22 [facility] Comment on above: Order Comment: Frantz men Type: BLOOD SPECIMENOrdering Facility: [facility] Address: [address] [place] [address] Performed By: #### 1 9123-9, 2776-10, HSTNT, ####[facility] LABIA [id number] [place] [address] [place] GFR/1.73 sq M.predicted among non-blacks MDRD (S/P/Bld) [Vol rate/Area] mL/min/{1.73_m2} Normal >=60 [facility] Comment on above: Order Comment: Frantz thurman Type: BLOOD SPECIMENOrdering Facility: [facility] Address: [address] [place] [address] Result Comment: Mary mated Glomerular Filtration Rate [...] Performed By: #### 1 9123-9, 277-1, HSTNT, 08952-3 ####[facility] LABCLIA [id number] [place] [address] [place] Glucose [Mass/Vol] 97 mg/dL Normal 74-99 [facility] Comment on above: Order Comment: Speci men Type: BLOOD SPECIMENOrdering Facility: [facility] Address: [address] [place], [place] [id number] Result Comment: The [place] [employer] (ADA) provides guidance for cutoff [...] Standards of Medical Care in Diabetes 2016, [place] [employer]. Diabetes Care. 2016.39(Suppl 1). Performed By: #### 1 9123-9, 2777-1, HSTNT, 21625-3 ####[facility] LABCLIA [id number] [place] [address] [place] Potassium [Moles/Vol] 3.6 mmol/L Low 3.7-5.1 [facility] Comment on above: Order Comment: Frantz thurman Type: BLOOD SPECIMENOrdering Facility: [facility] Address: [address] [place], [place] [address] Performed By: #### 1 9123-9, 2777-1, HSTNT, 05700-9 ####[facility] LABCLIA [id number] [place] [address] [place] Protein [Mass/Vol] 5.6 g/dL Low 6.3-8.0 [facility] Comment on above: Order Comment: Rosalindi cuca Type: BLOOD SPECIMENOrdering Facility: [facility] Address: [address] [place], [place] [id number] Performed By: #### 1 9123-9, 2777-1, HSTNT, 52512-2 ####[facility] LABCLIA [id number] [place] [address] [place] Sodium [Moles/Vol] 143 mmol/L Normal 136-144 [facility] Comment on above: Order Comment: Speci men Type: BLOOD SPECIMENOrdering Facility: [facility] Address: [address] [place] [address] Performed By: #### 1 9123-9, 2777-1, HSTNT, 44150-8 ####[facility] LABCLIA [id number] [place] [address] [place] Urea nitrogen [Mass/Vol] 2 mg/dL Low 9-24 [facility] Comment on above: Order Comment: Speci men Type: BLOOD SPECIMENOrdering Facility: [facility] Address: [address] [place] [address] Performed By: #### 1 9123-9, 277-1, HSTNT, ####[facility] LABIA [id number] [place] [address] [place] HIGH SENSITIVITY TROPONIN To n 03-16-2023 HIGH SENSITIVITY OMAR 10 ng/L Normal <12 [facility] Comment on above: Order Comment: Speci men Type: BLOOD SPECIMENOrdering Facility: [facility] Address: [address] [place] [address] Result Comment: When assessing risk for acute [...] Performed By: #### 1 9123-9, 2777-1, HSTNT, ####[facility] LABCLIA [id number] [place] [id number] [place] Magnesium SerPl-mCncon 03-16 Magnesium [Mass/Vol] 1.9 mg/dL Normal 1.7-2.3 [facility] Comment on above: Order Comment: Frantz thurman Type: BLOOD SPECIMENOrdering Facility: [facility] Address: [address] [place], [place] [id number] Performed By: #### 1 9123-9, 2777-1, HSTNT, 61467-0 ####[facility] LABCLIA [id number] [place] [address] [place] PT EDon 03-16-2023 PT ED Normal [facility] PT panel Coag (PPP)on 2022 INR Coag (PPP) [Relative time] 1.3 {INR} Normal 0.9-1.3 [facility] Comment on above: Order Comment: Frantz thurman Type: BLOOD SPECIMENOrdering Facility: [facility] Address: [address] [place] [address] Result Comment: Gale min K Antagonist (VKA) Therapeutic Range: INR 2 to 3 (Target INR of 2.5)Note: For patients treated with VKA drugs, such as warfarin, the [place] [employer] 2012 Guideline recommends [...] al. Chest 2012, 141:7S-47SNishimura RA, et al. [facility] 2017, 70: 252-289 Performed By: #### 3 4528-0, 50817-6 ####[facility] LABCLIA [id number] [place] [address] [place] PT Coag (PPP) [Time] 13.3 s High 9.7-13.0 [facility] Comment on above: Order Comment: Speci men Type: BLOOD SPECIMENOrdering Facility: [facility] Address: [address] Performed By: #### 3 4528-0, 14938-2 ####[facility] LABCLIA [id number] [place] [id number] [place] Phosphate SerPl-mCncon 03-16 Phosphate [Mass/Vol] 2.0 mg/dL Low 2.7-4.8 [facility] Comment on above: Order Comment: Speci men Type: BLOOD SPECIMENOrdering Facility: [facility] Address: [address] Performed By: #### 1 9123-9, 2777-1, HSTNT, 90517-5 ####[facility] LABCLIA [id number] [place] [address] [place] THERAPY NTon 03-16-2023 THERAPY NT Normal [facility] XR CHEST 1V FRONTAL PORTon 0 03-16-2023 XR CHEST 1V FRONTAL PORT Normal [facility] aPTT PPPon 03-16-2023 aPTT Coag (PPP) [Time] 44.0 s High 23.0-32.4 [facility] Comment on above: Order Comment: Speci men Type: BLOOD SPECIMENOrdering Facility: [facility] Address: [place] [address] Performed By: #### 3 4528-0, 81633-5 ####[facility] LABCLIA [id number] [place] [id number] [place] ALLIED HEALTHon 03-15-2023 ALLIED HEALTH Normal [facility] ARTERIAL BLOOD GASESon 03-15 Base excess Calc (Bld) [Moles/Vol] 3 mmol/L High 0-2 [facility] Comment on above: Order Comment: Speci men Type: ARTERIAL BLOOD SPECIMENOrdering Facility: [facility] Address: [address] Performed By: #### A LLBG ####[facility] LABIA [id number] [place] [address] [place] Body temperature 98.6 [degF] Normal [facility] Comment on above: Order Comment: Speci men Type: ARTERIAL BLOOD SPECIMENOrdering Facility: [facility] Address: [address] Performed By: #### A LLBG ####[facility] [id number] [place] [address] [place] Calcium.ionized (Bld) [Mass/Vol] 1.14 mmol/L Normal 1.08-1.30 [facility] Comment on above: Order Comment: Speci men Type: ARTERIAL BLOOD SPECIMENOrdering Facility: [facility] Address: [address] [address] Performed By: #### A LLBG ####[facility] [id number] [place] [address] [place] Calcium.ionized adjusted to pH 7.4 (BldA) [Moles/Vol] 1.16 mmol/L Normal 1.08-1.30 [facility] Comment on above: Order Comment: Speci men Type: ARTERIAL BLOOD SPECIMENOrdering Facility: [facility] Address: [address] Performed By: #### A LLBG ####[facility] [id number] [place] [address] [place] Carboxyhemoglobin (BldA) [Mass fraction] 0.8 % Normal 0.0-2.0 [facility] Comment on above: Order Comment: Speci men Type: ARTERIAL BLOOD SPECIMENOrdering Facility: [facility] Address: [address] [address] Result Comment: Carb oxyhemoglobin Reference Range for Smokers: 2.0-8.0% Performed By: #### A LLBG ####[facility] LABCLIA [id number] [place] [address] [place] CO2 (Bld) [Partial pressure] 41 mm Hg Normal 36-46 [facility] Comment on above: Order Comment: Speci men Type: ARTERIAL BLOOD SPECIMENOrdering Facility: [facility] Address: [address] [place] [address] Performed By: #### A LLBG ####[facility] LABCLIA [id number] [place] [address] [place] CO2 [Moles/Vol] 28 mmol/L Normal 22-28 [facility] Comment on above: Order Comment: Speci men Type: ARTERIAL BLOOD SPECIMENOrdering Facility: [facility] Address: [address] [place] [address] Performed By: #### A LLBG ####[facility] LABCLIA [id number] [place] [address] [place] Glucose [Mass/Vol] 135 mg/dL High 60-105 [facility] Comment on above: Order Comment: Speci men Type: ARTERIAL BLOOD SPECIMENOrdering Facility: [facility] Address: [address] [place] [address] Performed By: #### A LLBG ####[facility] LABCLIA [id number] [place] [address] [place] HCO3 (Bld) [Moles/Vol] 26 mmol/L Normal 22-26 [facility] Comment on above: Order Comment: Speci men Type: ARTERIAL BLOOD SPECIMENOrdering Facility: [facility] Address: [address] [place], [place] [address] Performed By: #### A LLBG ####[facility] LABCLIA [id number] [place] [address] [place] Hematocrit (Bld) [Volume fraction] 27.8 % Low 39.0-51.0 [facility] Comment on above: Order Comment: Speci men Type: ARTERIAL BLOOD SPECIMENOrdering Facility: [facility] Address: [address] Performed By: #### A LLBG ####[facility] LABCLIA [id number] [address] [place] Hemoglobin (Bld) [Mass/Vol] 9.0 g/dL Low 13.0-17.0 [facility] Comment on above: Order Comment: Speci men Type: ARTERIAL BLOOD SPECIMENOrdering Facility: [facility] Address: [address] Performed By: #### A LLBG ####[facility] LABCLIA [id number] [address] [place] Lactate [Moles/Vol] 0.9 mmol/L Normal 0.5-2.2 [facility] Comment on above: Order Comment: Speci men Type: ARTERIAL BLOOD SPECIMENOrdering Facility: [facility] Address: [address] Performed By: #### A LLBG ####[facility] LABCLIA [id number] [address] [place] Methemoglobin (Bld) [Mass fraction] 1.5 % Normal 0.0-1.5 [facility] Comment on above: Order Comment: Speci men Type: ARTERIAL BLOOD SPECIMENOrdering Facility: [facility] Address: [address] Performed By: #### A LLBG ####[facility] LABCLIA [id number] [place] [address] [place] O2 THERAPY Ventilator Normal [facility] Comment on above: Order Comment: Speci men Type: ARTERIAL BLOOD SPECIMENOrdering Facility: [facility] Address: [address] Performed By: #### A LLBG ####[facility] LABCLIA [id number] [place] [address] [place] Oxygen (Bld) [Partial pressure] 135 mm Hg High 85-95 [facility] Comment on above: Order Comment: Speci men Type: ARTERIAL BLOOD SPECIMENOrdering Facility: [facility] Address: [address] [place] [address] Performed By: #### A LLBG ####[facility] LABIA [id number] [place] [address] [place] Oxyhemoglobin (BldA) [Mass fraction] 97 % Normal 95-98 [facility] Comment on above: Order Comment: Speci men Type: ARTERIAL BLOOD SPECIMENOrdering Facility: [facility] Address: [address] [place] [address] Performed By: #### A LLBG ####[facility] [id number] [place] [address] [place] pH (Bld) 7.43 [pH] Normal 7.35-7.45 [facility] Comment on above: Order Comment: Speci men Type: ARTERIAL BLOOD SPECIMENOrdering Facility: [facility] Address: [address] [place], [place] [address] Performed By: #### A LLBG ####[facility] [id number] [place] [address] [place] Potassium [Moles/Vol] 3.2 mmol/L Low 3.5-5.0 [facility] Comment on above: Order Comment: Speci men Type: ARTERIAL BLOOD SPECIMENOrdering Facility: [facility] Address: [address] [place], [place] [address] Performed By: #### A LLBG ####[facility] LABIA [id number] [place] [address] [place] Sodium [Moles/Vol] 140 mmol/L Normal 136-144 [facility] Comment on above: Order Comment: Speci men Type: ARTERIAL BLOOD SPECIMENOrdering Facility: [facility] Address: [address] Performed By: #### A LLBG ####[facility] LABIA [id number] [address] Base excess Calc (Bld) [Moles/Vol] 2 mmol/L Normal 0-2 [facility] Comment on above: Order Comment: Speci men Type: ARTERIAL BLOOD SPECIMENOrdering Facility: [facility] Address: [address] Performed By: #### A LLBG ####[facility] LABIA [id number] [address] [place] Body temperature 98.6 [degF] Normal [facility] Comment on above: Order Comment: Speci men Type: ARTERIAL BLOOD SPECIMENOrdering Facility: [facility] Address: [address] [place], [place] [address] Performed By: #### A LLBG ####[facility] [id number] [address] [place] Calcium.ionized (Bld) [Mass/Vol] 1.09 mmol/L Normal 1.08-1.30 [facility] Comment on above: Order Comment: Speci men Type: ARTERIAL BLOOD SPECIMENOrdering Facility: [facility] Address: [address] Performed By: #### A LLBG ####[facility] LABIA [id number] [address] [place] Calcium.ionized adjusted to pH 7.4 (BldA) [Moles/Vol] 1.12 mmol/L Normal 1.08-1.30 [facility] Comment on above: Order Comment: Speci men Type: ARTERIAL BLOOD SPECIMENOrdering Facility: [facility] Address: [address] [place], [place] [address] Performed By: #### A LLBG ####[facility] LABCLIA [id number] [place] [address] [place] Carboxyhemoglobin (BldA) [Mass fraction] 1.3 % Normal 0.0-2.0 [facility] Comment on above: Order Comment: Speci men Type: ARTERIAL BLOOD SPECIMENOrdering Facility: [facility] Address: [address] [place] [address] Result Comment: Carb oxyhemoglobin Reference Range for Smokers: 2.0-8.0% Performed By: #### A LLBG ####[facility] LABCLIA [id number] [place] [address] [place] CO2 (Bld) [Partial pressure] 39 mm Hg Normal 36-46 [facility] Comment on above: Order Comment: Speci men Type: ARTERIAL BLOOD SPECIMENOrdering Facility: [facility] Address: [address] [place], [place] [address] Performed By: #### A LLBG ####[facility] LABCLIA [id number] [place] [address] [place] CO2 [Moles/Vol] 27 mmol/L Normal 22-28 [facility] Comment on above: Order Comment: Speci men Type: ARTERIAL BLOOD SPECIMENOrdering Facility: [facility] Address: [address] [place], [place] [address] Performed By: #### A LLBG ####[facility] LABCLIA [id number] [place] [address] [place] FIO2 30 % Normal [facility] Comment on above: Order Comment: Speci men Type: ARTERIAL BLOOD SPECIMENOrdering Facility: [facility] Address: [address] [place], [place] [address] Performed By: #### A LLBG ####[facility] LABCLIA [id number] [place] [address] [place] Glucose [Mass/Vol] 140 mg/dL High 60-105 [facility] Comment on above: Order Comment: Speci men Type: ARTERIAL BLOOD SPECIMENOrdering Facility: [facility] Address: [address] Performed By: #### A LLBG ####[facility] LABCLIA [id number] [place] [address] [place] HCO3 (Bld) [Moles/Vol] 26 mmol/L Normal 22-26 [facility] Comment on above: Order Comment: Speci men Type: ARTERIAL BLOOD SPECIMENOrdering Facility: [facility] Address: [address] Performed By: #### A LLBG ####[facility] LABIA [id number] [place] [address] [place] Hematocrit (Bld) [Volume fraction] 28.3 % Low 39.0-51.0 [facility] Comment on above: Order Comment: Speci men Type: ARTERIAL BLOOD SPECIMENOrdering Facility: [facility] Address: [address] [place], [place] [address] Performed By: #### A LLBG ####[facility] LABIA [id number] [place] [address] [place] Hemoglobin (Bld) [Mass/Vol] 9.1 g/dL Low 13.0-17.0 [facility] Comment on above: Order Comment: Speci men Type: ARTERIAL BLOOD SPECIMENOrdering Facility: [facility] Address: [address] [place], [place] [address] Performed By: #### A LLBG ####[facility] LABIA [id number] [place] [address] [place] Lactate [Moles/Vol] 0.8 mmol/L Normal 0.5-2.2 [facility] Comment on above: Order Comment: Speci men Type: ARTERIAL BLOOD SPECIMENOrdering Facility: [facility] Address: [address] Performed By: #### A LLBG ####[facility] LABCLIA [id number] [place] [address] [place] Methemoglobin (Bld) [Mass fraction] 0.9 % Normal 0.0-1.5 [facility] Comment on above: Order Comment: Speci men Type: ARTERIAL BLOOD SPECIMENOrdering Facility: [facility] Address: [address] [place] [address] Performed By: #### A LLBG ####[facility] LABCLIA [id number] [place] [address] [place] O2 THERAPY Ventilator Normal [facility] Comment on above: Order Comment: Speci men Type: ARTERIAL BLOOD SPECIMENOrdering Facility: [facility] Address: [address] [place] [address] Performed By: #### A LLBG ####[facility] LABCLIA [id number] [place] [address] [place] Oxygen (Bld) [Partial pressure] 145 mm Hg High 85-95 [facility] Comment on above: Order Comment: Speci men Type: ARTERIAL BLOOD SPECIMENOrdering Facility: [facility] Address: [address] [place], [place] [address] Performed By: #### A LLBG ####[facility] LABCLIA [id number] [place] [address] [place] Oxyhemoglobin (BldA) [Mass fraction] 97 % Normal 95-98 [facility] Comment on above: Order Comment: Speci men Type: ARTERIAL BLOOD SPECIMENOrdering Facility: [facility] Address: [address] [place], [place] [address] Performed By: #### A LLBG ####[facility] LABCLIA [id number] [place] [address] [place] pH (Bld) 7.44 [pH] Normal 7.35-7.45 [facility] Comment on above: Order Comment: Speci men Type: ARTERIAL BLOOD SPECIMENOrdering Facility: [facility] Address: [address] [place] [address] Performed By: #### A LLBG ####[facility] LABCLIA [id number] [place] [address] [place] Potassium [Moles/Vol] 3.7 mmol/L Normal 3.5-5.0 [facility] Comment on above: Order Comment: Speci men Type: ARTERIAL BLOOD SPECIMENOrdering Facility: [facility] Address: [address] [place] [address] Performed By: #### A LLBG ####[facility] LABCLIA [id number] [place] [address] [place] Sodium [Moles/Vol] 139 mmol/L Normal 136-144 [facility] Comment on above: Order Comment: Speci men Type: ARTERIAL BLOOD SPECIMENOrdering Facility: [facility] Address: [address] Performed By: #### A LLBG ####[facility] LABCLIA [id number] [place] [address] [place] Base excess Calc (Bld) [Moles/Vol] 4 mmol/L High 0-2 [facility] Comment on above: Order Comment: Speci men Type: ARTERIAL BLOOD SPECIMENOrdering Facility: [facility] Address: [address] Performed By: #### A LLBG ####[facility] LABCLIA [id number] [place] [address] [place] Body temperature 98.06 [degF] Normal [facility] Comment on above: Order Comment: Speci men Type: ARTERIAL BLOOD SPECIMENOrdering Facility: [facility] Address: [address] Performed By: #### A LLBG ####[facility] LABCLIA [id number] [place] [address] [place] Calcium.ionized (Bld) [Mass/Vol] 1.10 mmol/L Normal 1.08-1.30 [facility] Comment on above: Order Comment: Speci men Type: ARTERIAL BLOOD SPECIMENOrdering Facility: [facility] Address: [address] [place] [address] Performed By: #### A LLBG ####[facility] LABCLIA [id number] [place] [address] [place] Calcium.ionized adjusted to pH 7.4 (BldA) [Moles/Vol] 1.13 mmol/L Normal 1.08-1.30 [facility] Comment on above: Order Comment: Speci men Type: ARTERIAL BLOOD SPECIMENOrdering Facility: [facility] Address: [address] [place] [address] Performed By: #### A LLBG ####[facility] LABCLIA [id number] [place] [address] [place] Carboxyhemoglobin (BldA) [Mass fraction] 2.0 % Normal 0.0-2.0 [facility] Comment on above: Order Comment: Speci men Type: ARTERIAL BLOOD SPECIMENOrdering Facility: [facility] Address: [address] [place] [address] Result Comment: Carb oxyhemoglobin Reference Range for Smokers: 2.0-8.0% Performed By: #### A LLBG ####[facility] LABCLIA [id number] [place] [address] [place] CO2 (Bld) [Partial pressure] 40 mm Hg Normal 36-46 [facility] Comment on above: Order Comment: Speci men Type: ARTERIAL BLOOD SPECIMENOrdering Facility: [facility] Address: [address] [place], [place] [address] Performed By: #### A LLBG ####[facility] LABCLIA [id number] [place] [address] [place] CO2 [Moles/Vol] 29 mmol/L High 22-28 [facility] Comment on above: Order Comment: Speci men Type: ARTERIAL BLOOD SPECIMENOrdering Facility: [facility] Address: [address] Performed By: #### A LLBG ####[facility] LABCLIA [id number] [place] [address] [place] CO2 adjusted to patient's actual temperature (Bld) [Partial pressure] 39 mmHg Normal 36-46 [facility] Comment on above: Order Comment: Speci men Type: ARTERIAL BLOOD SPECIMENOrdering Facility: [facility] Address: [address] Performed By: #### A LLBG ####[facility] LABCLIA [id number] [place] [address] [place] Glucose [Mass/Vol] 148 mg/dL High 60-105 [facility] Comment on above: Order Comment: Speci men Type: ARTERIAL BLOOD SPECIMENOrdering Facility: [facility] Address: [address] Performed By: #### A LLBG ####[facility] LABCLIA [id number] [place] [address] [place] HCO3 (Bld) [Moles/Vol] 27 mmol/L High 22-26 [facility] Comment on above: Order Comment: Speci men Type: ARTERIAL BLOOD SPECIMENOrdering Facility: [facility] Address: [address] Performed By: #### A LLBG ####[facility] LABCLIA [id number] [place] [address] [place] Hematocrit (Bld) [Volume fraction] 27.6 % Low 39.0-51.0 [facility] Comment on above: Order Comment: Speci men Type: ARTERIAL BLOOD SPECIMENOrdering Facility: [facility] Address: [address] Performed By: #### A LLBG ####[facility] LABIA [id number] [place] [address] [place] Hemoglobin (Bld) [Mass/Vol] 8.9 g/dL Low 13.0-17.0 [facility] Comment on above: Order Comment: Speci men Type: ARTERIAL BLOOD SPECIMENOrdering Facility: [facility] Address: [address] Performed By: #### A LLBG ####[facility] LABIA [id number] [place] [address] [place] Lactate [Moles/Vol] 1.0 mmol/L Normal 0.5-2.2 [facility] Comment on above: Order Comment: Speci men Type: ARTERIAL BLOOD SPECIMENOrdering Facility: [facility] Address: [address] Performed By: #### A LLBG ####[facility] LABIA [id number] [place] [address] [place] Methemoglobin (Bld) [Mass fraction] 1.8 % High 0.0-1.5 [facility] Comment on above: Order Comment: Speci men Type: ARTERIAL BLOOD SPECIMENOrdering Facility: [facility] Address: [address] Performed By: #### A LLBG ####[facility] LABIA [id number] [place] [address] [place] O2 THERAPY Ventilator Normal [facility] Comment on above: Order Comment: Speci men Type: ARTERIAL BLOOD SPECIMENOrdering Facility: [facility] Address: [address] Performed By: #### A LLBG ####[facility] LABIA [id number] [place] [address] [place] Oxygen (Bld) [Partial pressure] 147 mm Hg High 85-95 [facility] Comment on above: Order Comment: Speci men Type: ARTERIAL BLOOD SPECIMENOrdering Facility: [facility] Address: [address] [place] [address] Performed By: #### A LLBG ####[facility] LABCLIA [id number] [place] [address] [place] Oxygen adjusted to patient's actual temperature (Bld) [Partial pressure] 146 mmHg High 85-95 [facility] Comment on above: Order Comment: Speci men Type: ARTERIAL BLOOD SPECIMENOrdering Facility: [facility] Address: [address] [place], [place] [address] Performed By: #### A LLBG ####[facility] LABCLIA [id number] [place] [address] [place] Oxyhemoglobin (BldA) [Mass fraction] 96 % Normal 95-98 [facility] Comment on above: Order Comment: Speci men Type: ARTERIAL BLOOD SPECIMENOrdering Facility: [facility] Address: [address] [place], [place] [address] Performed By: #### A LLBG ####[facility] LABCLIA [id number] [place] [address] [place] pH (Bld) 7.45 [pH] Normal 7.35-7.45 [facility] Comment on above: Order Comment: Speci men Type: ARTERIAL BLOOD SPECIMENOrdering Facility: [facility] Address: [address] [place] [address] Performed By: #### A LLBG ####[facility] LABCLIA [id number] [place] [address] [place] pH adjusted to patient's actual temperature (Bld) 7.46 High 7.35-7.45 [facility] Comment on above: Order Comment: Speci men Type: ARTERIAL BLOOD SPECIMENOrdering Facility: [facility] Address: [address] [place] [address] Performed By: #### A LLBG ####[facility] LABCLIA [id number] [place] [address] [place] Potassium [Moles/Vol] 3.1 mmol/L Low 3.5-5.0 [facility] Comment on above: Order Comment: Speci men Type: ARTERIAL BLOOD SPECIMENOrdering Facility: [facility] Address: [address] Performed By: #### A LLBG ####[facility] LABIA [id number] [place] [address] [place] Sodium [Moles/Vol] 140 mmol/L Normal 136-144 [facility] Comment on above: Order Comment: Speci men Type: ARTERIAL BLOOD SPECIMENOrdering Facility: [facility] Address: [address] [place], [place] [address] Performed By: #### A LLBG ####[facility] LABIA [id number] [place] [address] [place] Base deficit (BldA) [Moles/Vol] -1 mmol/L Normal -2-0 [facility] Comment on above: Order Comment: Speci men Type: ARTERIAL BLOOD SPECIMENOrdering Facility: [facility] Address: [address] [place], [place] [address] Performed By: #### A LLBG ####[facility] LABIA [id number] [place] [address] [place] Body temperature 97.88 [degF] Normal [facility] Comment on above: Order Comment: Speci men Type: ARTERIAL BLOOD SPECIMENOrdering Facility: [facility] Address: [address] [place] [address] Performed By: #### A LLBG ####[facility] LABIA [id number] [place] [address] [place] Calcium.ionized (Bld) [Mass/Vol] 1.15 mmol/L Normal 1.08-1.30 [facility] Comment on above: Order Comment: Speci men Type: ARTERIAL BLOOD SPECIMENOrdering Facility: [facility] Address: [address] [place] [address] Performed By: #### A LLBG ####[facility] LABCLIA [id number] [place] [address] [place] Calcium.ionized adjusted to pH 7.4 (BldA) [Moles/Vol] 1.15 mmol/L Normal 1.08-1.30 [facility] Comment on above: Order Comment: Speci men Type: ARTERIAL BLOOD SPECIMENOrdering Facility: [facility] Address: [address] [place] [address] Performed By: #### A LLBG ####[facility] LABCLIA [id number] [place] [address] [place] Carboxyhemoglobin (BldA) [Mass fraction] 0.9 % Normal 0.0-2.0 [facility] Comment on above: Order Comment: Speci men Type: ARTERIAL BLOOD SPECIMENOrdering Facility: [facility] Address: [address] [place] [address] Result Comment: Carb oxyhemoglobin Reference Range for Smokers: 2.0-8.0% Performed By: #### A LLBG ####[facility] LABCLIA [id number] [place] [address] [place] CO2 (Bld) [Partial pressure] 38 mm Hg Normal 36-46 [facility] Comment on above: Order Comment: Speci men Type: ARTERIAL BLOOD SPECIMENOrdering Facility: [facility] Address: [address] [place] [address] Performed By: #### A LLBG ####[facility] LABCLIA [id number] [place] [address] [place] CO2 [Moles/Vol] 24 mmol/L Normal 22-28 [facility] Comment on above: Order Comment: Speci men Type: ARTERIAL BLOOD SPECIMENOrdering Facility: [facility] Address: [address] Performed By: #### A LLBG ####[facility] LABCLIA [id number] [place] [address] [place] CO2 adjusted to patient's actual temperature (Bld) [Partial pressure] 37 mmHg Normal 36-46 [facility] Comment on above: Order Comment: Speci men Type: ARTERIAL BLOOD SPECIMENOrdering Facility: [facility] Address: [address] Performed By: #### A LLBG ####[facility] LABCLIA [id number] [place] [address] [place] FIO2 30 % Normal [facility] Comment on above: Order Comment: Speci men Type: ARTERIAL BLOOD SPECIMENOrdering Facility: [facility] Address: [address] Performed By: #### A LLBG ####[facility] LABCLIA [id number] [place] [address] [place] Glucose [Mass/Vol] 171 mg/dL High 60-105 [facility] Comment on above: Order Comment: Speci men Type: ARTERIAL BLOOD SPECIMENOrdering Facility: [facility] Address: [address] Performed By: #### A LLBG ####[facility] LABCLIA [id number] [place] [address] [place] HCO3 (Bld) [Moles/Vol] 23 mmol/L Normal 22-26 [facility] Comment on above: Order Comment: Speci men Type: ARTERIAL BLOOD SPECIMENOrdering Facility: [facility] Address: [address] Performed By: #### A LLBG ####[facility] LABCLIA [id number] [address] [place] Hematocrit (Bld) [Volume fraction] 27.6 % Low 39.0-51.0 [facility] Comment on above: Order Comment: Speci men Type: ARTERIAL BLOOD SPECIMENOrdering Facility: [facility] Address: [address] [place] [address] Performed By: #### A LLBG ####[facility] LABCLIA [id number] [place] [address] [place] Hemoglobin (Bld) [Mass/Vol] 8.9 g/dL Low 13.0-17.0 [facility] Comment on above: Order Comment: Speci men Type: ARTERIAL BLOOD SPECIMENOrdering Facility: [facility] Address: [address] [place] [address] Performed By: #### A LLBG ####[facility] LABCLIA [id number] [address] [place] Lactate [Moles/Vol] 1.4 mmol/L Normal 0.5-2.2 [facility] Comment on above: Order Comment: Speci men Type: ARTERIAL BLOOD SPECIMENOrdering Facility: [facility] Address: [address] [place], [place] [address] Performed By: #### A LLBG ####[facility] LABIA [id number] [place] [address] [place] Methemoglobin (Bld) [Mass fraction] 1.5 % Normal 0.0-1.5 [facility] Comment on above: Order Comment: Speci men Type: ARTERIAL BLOOD SPECIMENOrdering Facility: [facility] Address: [address] [place], [place] [address] Performed By: #### A LLBG ####[facility] LABCLIA [id number] [place] [address] [place] O2 THERAPY Ventilator Normal [facility] Comment on above: Order Comment: Speci men Type: ARTERIAL BLOOD SPECIMENOrdering Facility: [facility] Address: [address] [place], [place] Performed By: #### A LLBG ####[facility] LABCLIA [id number] [address] [place] Oxygen (Bld) [Partial pressure] 162 mm Hg High 85-95 [facility] Comment on above: Order Comment: Speci men Type: ARTERIAL BLOOD SPECIMENOrdering Facility: [facility] Address: [address] [place] [address] Performed By: #### A LLBG ####[facility] LABCLIA [id number] [address] [place] Oxygen adjusted to patient's actual temperature (Bld) [Partial pressure] 160 mmHg High 85-95 [facility] Comment on above: Order Comment: Speci men Type: ARTERIAL BLOOD SPECIMENOrdering Facility: [facility] Address: [address] [place] [address] Performed By: #### A LLBG ####[facility] LABCLIA [id number] [place] [address] [place] Oxyhemoglobin (BldA) [Mass fraction] 97 % Normal 95-98 [facility] Comment on above: Order Comment: Speci men Type: ARTERIAL BLOOD SPECIMENOrdering Facility: [facility] Address: [address] [place], [place] [id number] Performed By: #### A LLBG ####[facility] LABCLIA [id number] [place] [address] [place] PEEP/CPAP 8 cmH2O Normal [facility] Comment on above: Order Comment: Speci men Type: ARTERIAL BLOOD SPECIMENOrdering Facility: [facility] Address: [address] [place] [address] Performed By: #### A LLBG ####[facility] LABCLIA [id number] [place] [address] [place] pH (Bld) 7.40 [pH] Normal 7.35-7.45 [facility] Comment on above: Order Comment: Speci men Type: ARTERIAL BLOOD SPECIMENOrdering Facility: [facility] Address: [address] [place] [address] Performed By: #### A LLBG ####[facility] LABIA [id number] [place] [address] [place] pH adjusted to patient's actual temperature (Bld) 7.40 Normal 7.35-7.45 [facility] Comment on above: Order Comment: Speci men Type: ARTERIAL BLOOD SPECIMENOrdering Facility: [facility] Address: [address] [place], [place] [address] Performed By: #### A LLBG ####[facility] LABIA [id number] [place] [address] [place] Potassium [Moles/Vol] 4.0 mmol/L Normal 3.5-5.0 [facility] Comment on above: Order Comment: Speci men Type: ARTERIAL BLOOD SPECIMENOrdering Facility: [facility] Address: [address] [place], [place] [address] Performed By: #### A LLBG ####[facility] LABIA [id number] [place] [address] [place] Sodium [Moles/Vol] 141 mmol/L Normal 136-144 [facility] Comment on above: Order Comment: Speci men Type: ARTERIAL BLOOD SPECIMENOrdering Facility: [facility] Address: [address] [place], [place] [address] Performed By: #### A LLBG ####[facility] LABIA [id number] [place] [address] [place] [place] Base deficit (BldA) [Moles/Vol] -2 mmol/L Normal -2-0 [facility] Comment on above: Order Comment: Speci men Type: ARTERIAL BLOOD SPECIMENOrdering Facility: [facility] Address: [address] Performed By: #### A LLBG ####[facility] LABIA [id number] [place] [address] [place] Body temperature 97.52 [degF] Normal [facility] Comment on above: Order Comment: Speci men Type: ARTERIAL BLOOD SPECIMENOrdering Facility: [facility] Address: [address] Performed By: #### A LLBG ####[facility] [id number] [place] [address] [place] Calcium.ionized (Bld) [Mass/Vol] 1.24 mmol/L Normal 1.08-1.30 [facility] Comment on above: Order Comment: Speci men Type: ARTERIAL BLOOD SPECIMENOrdering Facility: [facility] Address: [address] Performed By: #### A LLBG ####[facility] [id number] [place] [address] [place] Calcium.ionized adjusted to pH 7.4 (BldA) [Moles/Vol] 1.19 mmol/L Normal 1.08-1.30 [facility] Comment on above: Order Comment: Speci men Type: ARTERIAL BLOOD SPECIMENOrdering Facility: [facility] Address: [address] Performed By: #### A LLBG ####[facility] [id number] [place] [address] [place] Carboxyhemoglobin (BldA) [Mass fraction] 1.2 % Normal 0.0-2.0 [facility] Comment on above: Order Comment: Speci men Type: ARTERIAL BLOOD SPECIMENOrdering Facility: [facility] Address: [address] Result Comment: Carb oxyhemoglobin Reference Range for Smokers: 2.0-8.0% Performed By: #### A LLBG ####[facility] LABCLIA [id number] [place] [address] [place] CO2 (Bld) [Partial pressure] 45 mm Hg Normal 36-46 [facility] Comment on above: Order Comment: Speci men Type: ARTERIAL BLOOD SPECIMENOrdering Facility: [facility] Address: [address] [place] [address] Performed By: #### A LLBG ####[facility] LABCLIA [id number] [place] [address] [place] CO2 [Moles/Vol] 24 mmol/L Normal 22-28 [facility] Comment on above: Order Comment: Speci men Type: ARTERIAL BLOOD SPECIMENOrdering Facility: [facility] Address: [address] [place] [address] Performed By: #### A LLBG ####[facility] LABCLIA [id number] [address] [place] CO2 adjusted to patient's actual temperature (Bld) [Partial pressure] 43 mmHg Normal 36-46 [facility] Comment on above: Order Comment: Speci men Type: ARTERIAL BLOOD SPECIMENOrdering Facility: [facility] Address: [address] [place], [place] [address] Performed By: #### A LLBG ####[facility] LABCLIA [id number] [place] [address] [place] FIO2 30 % Normal [facility] Comment on above: Order Comment: Speci men Type: ARTERIAL BLOOD SPECIMENOrdering Facility: [facility] Address: [address] [place], [place] [address] Performed By: #### A LLBG ####[facility] LABCLIA [id number] [place] [address] [place] Glucose [Mass/Vol] 169 mg/dL High 60-105 [facility] Comment on above: Order Comment: Speci men Type: ARTERIAL BLOOD SPECIMENOrdering Facility: [facility] Address: [address] Performed By: #### A LLBG ####[facility] LABCLIA [id number] [place] [address] [place] HCO3 (Bld) [Moles/Vol] 23 mmol/L Normal 22-26 [facility] Comment on above: Order Comment: Speci men Type: ARTERIAL BLOOD SPECIMENOrdering Facility: [facility] Address: [address] [place], [place] [address] Performed By: #### A LLBG ####[facility] LABCLIA [id number] [place] [address] [place] Hematocrit (Bld) [Volume fraction] 24.8 % Low 39.0-51.0 [facility] Comment on above: Order Comment: Speci men Type: ARTERIAL BLOOD SPECIMENOrdering Facility: [facility] Address: [address] [place], [place] [address] Performed By: #### A LLBG ####[facility] LABCLIA [id number] [place] [address] [place] Hemoglobin (Bld) [Mass/Vol] 8.0 g/dL Low 13.0-17.0 [facility] Comment on above: Order Comment: Speci men Type: ARTERIAL BLOOD SPECIMENOrdering Facility: [facility] Address: [address] [place], [place] [address] Performed By: #### A LLBG ####[facility] LABCLIA [id number] [place] [address] [place] Lactate [Moles/Vol] 0.6 mmol/L Normal 0.5-2.2 [facility] Comment on above: Order Comment: Speci men Type: ARTERIAL BLOOD SPECIMENOrdering Facility: [facility] Address: [address] [place], [place] [address] Performed By: #### A LLBG ####[facility] LABCLIA [id number] [place] [address] [place] Methemoglobin (Bld) [Mass fraction] 1.1 % Normal 0.0-1.5 [facility] Comment on above: Order Comment: Speci men Type: ARTERIAL BLOOD SPECIMENOrdering Facility: [facility] Address: [address] Performed By: #### A LLBG ####[facility] LABCLIA [id number] [place] [address] [place] O2 THERAPY Ventilator Normal [facility] Comment on above: Order Comment: Speci men Type: ARTERIAL BLOOD SPECIMENOrdering Facility: [facility] Address: [address] Performed By: #### A LLBG ####[facility] LABIA [id number] [place] [address] [place] Oxygen (Bld) [Partial pressure] 157 mm Hg High 85-95 [facility] Comment on above: Order Comment: Speci men Type: ARTERIAL BLOOD SPECIMENOrdering Facility: [facility] Address: [address] [place] [address] Performed By: #### A LLBG ####[facility] LABCLIA [id number] [place] [id number] [place] Oxygen adjusted to patient's actual temperature (Bld) [Partial pressure] 155 mmHg High 85-95 [facility] Comment on above: Order Comment: Speci men Type: ARTERIAL BLOOD SPECIMENOrdering Facility: [facility] Address: [address] [place] [address] Performed By: #### A LLBG ####[facility] LABIA [id number] [place] [address] [place] Oxyhemoglobin (BldA) [Mass fraction] 97 % Normal 95-98 [facility] Comment on above: Order Comment: Speci men Type: ARTERIAL BLOOD SPECIMENOrdering Facility: [facility] Address: [address] Performed By: #### A LLBG ####[facility] LABCLIA [id number] [place] [address] [place] PEEP/CPAP 10 cmH2O Normal [facility] Comment on above: Order Comment: Speci men Type: ARTERIAL BLOOD SPECIMENOrdering Facility: [facility] Address: [address] [place], [place] [address] Performed By: #### A LLBG ####[facility] LABCLIA [id number] [place] [address] [place] pH (Bld) 7.33 [pH] Low 7.35-7.45 [facility] Comment on above: Order Comment: Speci men Type: ARTERIAL BLOOD SPECIMENOrdering Facility: [facility] Address: [address] [place], [place] [address] Performed By: #### A LLBG ####[facility] LABCLIA [id number] [place] [address] [place] pH adjusted to patient's actual temperature (Bld) 7.34 Low 7.35-7.45 [facility] Comment on above: Order Comment: Speci men Type: ARTERIAL BLOOD SPECIMENOrdering Facility: [facility] Address: [address] [place], [place] [address] Performed By: #### A LLBG ####[facility] LABCLIA [id number] [place] [address] [place] Potassium [Moles/Vol] 3.2 mmol/L Low 3.5-5.0 [facility] Comment on above: Order Comment: Speci men Type: ARTERIAL BLOOD SPECIMENOrdering Facility: [facility] Address: [address] [place], [place] [address] Performed By: #### A LLBG ####[facility] LABCLIA [id number] [place] [address] [place] Sodium [Moles/Vol] 144 mmol/L Normal 136-144 [facility] Comment on above: Order Comment: Speci men Type: ARTERIAL BLOOD SPECIMENOrdering Facility: [facility] Address: [address] [place] [address] Performed By: #### A LLBG ####[facility] LABCLIA [id number] [address] [place] Base deficit (BldA) [Moles/Vol] -6 mmol/L Low -2-0 [facility] Comment on above: Order Comment: Speci men Type: ARTERIAL BLOOD SPECIMENOrdering Facility: [facility] Address: [address] [place] [address] Performed By: #### A LLBG ####[facility] LABCLIA [id number] [address] [place] Body temperature 98.6 [degF] Normal [facility] Comment on above: Order Comment: Speci men Type: ARTERIAL BLOOD SPECIMENOrdering Facility: [facility] Address: [address] [place], [place] [address] Performed By: #### A LLBG ####[facility] LABCLIA [id number] [address] [place] Calcium.ionized (Bld) [Mass/Vol] 1.15 mmol/L Normal 1.08-1.30 [facility] Comment on above: Order Comment: Speci men Type: ARTERIAL BLOOD SPECIMENOrdering Facility: [facility] Address: [address] [place], [place] [address] Performed By: #### A LLBG ####[facility] LABCLIA [id number] [place] [address] [place] Calcium.ionized adjusted to pH 7.4 (BldA) [Moles/Vol] 1.05 mmol/L Low 1.08-1.30 [facility] Comment on above: Order Comment: Speci men Type: ARTERIAL BLOOD SPECIMENOrdering Facility: [facility] Address: [address] [place] [address] Performed By: #### A LLBG ####[facility] LABCLIA [id number] [address] [place] Carboxyhemoglobin (BldA) [Mass fraction] 1.3 % Normal 0.0-2.0 [facility] Comment on above: Order Comment: Speci men Type: ARTERIAL BLOOD SPECIMENOrdering Facility: [facility] Address: [address] Result Comment: Carb oxyhemoglobin Reference Range for Smokers: 2.0-8.0% Performed By: #### A LLBG ####[facility] LABCLIA [id number] [place] [address] [place] CO2 (Bld) [Partial pressure] 50 mm Hg High 36-46 [facility] Comment on above: Order Comment: Speci men Type: ARTERIAL BLOOD SPECIMENOrdering Facility: [facility] Address: [address] [place] [address] Performed By: #### A LLBG ####[facility] LABCLIA [id number] [place] [address] [place] CO2 [Moles/Vol] 22 mmol/L Normal 22-28 [facility] Comment on above: Order Comment: Speci men Type: ARTERIAL BLOOD SPECIMENOrdering Facility: [facility] Address: [address] Performed By: #### A LLBG ####[facility] LABCLIA [id number] [place] [address] [place] FIO2 40 % Normal [facility] Comment on above: Order Comment: Speci men Type: ARTERIAL BLOOD SPECIMENOrdering Facility: [facility] Address: [address] Performed By: #### A LLBG ####[facility] LABCLIA [id number] [place] [address] [place] Glucose [Mass/Vol] 188 mg/dL High 60-105 [facility] Comment on above: Order Comment: Speci men Type: ARTERIAL BLOOD SPECIMENOrdering Facility: [facility] Address: [address] [place] [address] Performed By: #### A LLBG ####[facility] LABCLIA [id number] [place] [address] [place] HCO3 (Bld) [Moles/Vol] 21 mmol/L Low 22-26 [facility] Comment on above: Order Comment: Speci men Type: ARTERIAL BLOOD SPECIMENOrdering Facility: [facility] Address: [address] [place] [address] Performed By: #### A LLBG ####[facility] LABCLIA [id number] [place] [address] [place] Hematocrit (Bld) [Volume fraction] 24.7 % Low 39.0-51.0 [facility] Comment on above: Order Comment: Speci men Type: ARTERIAL BLOOD SPECIMENOrdering Facility: [facility] Address: [address] [place], [place] [address] Performed By: #### A LLBG ####[facility] LABCLIA [id number] [place] [address] [place] Hemoglobin (Bld) [Mass/Vol] 7.9 g/dL Low 13.0-17.0 [facility] Comment on above: Order Comment: Speci men Type: ARTERIAL BLOOD SPECIMENOrdering Facility: [facility] Address: [address] [place], [place] [address] Performed By: #### A LLBG ####[facility] LABCLIA [id number] [place] [address] [place] Lactate [Moles/Vol] 0.5 mmol/L Normal 0.5-2.2 [facility] Comment on above: Order Comment: Speci men Type: ARTERIAL BLOOD SPECIMENOrdering Facility: [facility] Address: [address] Performed By: #### A LLBG ####[facility] LABCLIA [id number] [address] [place] Methemoglobin (Bld) [Mass fraction] 0.9 % Normal 0.0-1.5 [facility] Comment on above: Order Comment: Speci men Type: ARTERIAL BLOOD SPECIMENOrdering Facility: [facility] Address: [address] Performed By: #### A LLBG ####[facility] LABCLIA [id number] [place] [address] [place] O2 THERAPY Ventilator Normal [facility] Comment on above: Order Comment: Speci men Type: ARTERIAL BLOOD SPECIMENOrdering Facility: [facility] Address: [address] Performed By: #### A LLBG ####[facility] LABCLIA [id number] [place] [address] [place] Oxygen (Bld) [Partial pressure] 189 mm Hg High 85-95 [facility] Comment on above: Order Comment: Speci men Type: ARTERIAL BLOOD SPECIMENOrdering Facility: [facility] Address: [address] [place] [address] Performed By: #### A LLBG ####[facility] LABCLIA [id number] [place] [address] [place] Oxyhemoglobin (BldA) [Mass fraction] 97 % Normal 95-98 [facility] Comment on above: Order Comment: Speci men Type: ARTERIAL BLOOD SPECIMENOrdering Facility: [facility] Address: [address] [place] [address] Performed By: #### A LLBG ####[facility] LABCLIA [id number] [place] [address] [place] pH (Bld) 7.24 [pH] Low 7.35-7.45 [facility] Comment on above: Order Comment: Speci men Type: ARTERIAL BLOOD SPECIMENOrdering Facility: [facility] Address: [address] [place] [address] Performed By: #### A LLBG ####[facility] LABCLIA [id number] [place] [address] [place] Potassium [Moles/Vol] 3.3 mmol/L Low 3.5-5.0 [facility] Comment on above: Order Comment: Speci men Type: ARTERIAL BLOOD SPECIMENOrdering Facility: [facility] Address: [address] [place] [address] Performed By: #### A LLBG ####[facility] LABCLIA [id number] [place] [address] [place] Sodium [Moles/Vol] 143 mmol/L Normal 136-144 [facility] Comment on above: Order Comment: Speci men Type: ARTERIAL BLOOD SPECIMENOrdering Facility: [facility] Address: [address] [place] [address] Performed By: #### A LLBG ####[facility] LABCLIA [id number] [place] [address] [place] Basic metabolic 2000 panelon 03-15-2023 Anion gap [Moles/Vol] 10 mmol/L Normal 9-18 [facility] Comment on above: Order Comment: Speci men Type: BLOOD SPECIMENOrdering Facility: [facility] Address: [address] [place] [address] Performed By: #### 2 777-1, 17983-8 ####[facility] LABCLIA [id number] [place] [address] [place] Calcium [Mass/Vol] 8.2 mg/dL Low 8.5-10.2 [facility] Comment on above: Order Comment: Speci men Type: BLOOD SPECIMENOrdering Facility: [facility] Address: [address] [place] [address] Performed By: #### 2 777-1, 43641-8 ####[facility] LABCLIA [id number] [place] [address] [place] Chloride [Moles/Vol] 106 mmol/L High 97-105 [facility] Comment on above: Order Comment: Speci men Type: BLOOD SPECIMENOrdering Facility: [facility] Address: [address] [place] [address] Performed By: #### 2 777-1, 62059-4 ####[facility] LABCLIA [id number] [place] [address] [place] CO2 [Moles/Vol] 26 mmol/L Normal 22-30 [facility] Comment on above: Order Comment: Speci men Type: BLOOD SPECIMENOrdering Facility: [facility] Address: [address] [place] [address] Performed By: #### 2 777-1, 84874-7 ####[facility] LABIA [id number] [place] [address] [place] Creatinine [Mass/Vol] 0.32 mg/dL Low 0.73-1.22 [facility] Comment on above: Order Comment: Speci men Type: BLOOD SPECIMENOrdering Facility: [facility] Address: [address] [place] [address] Performed By: #### 2 777-1, 30173-2 ####[facility] LABIA [id number] [place] [address] [place] GFR/1.73 sq M.predicted among non-blacks MDRD (S/P/Bld) [Vol rate/Area] mL/min/{1.73_m2} Normal >=60 [facility] Comment on above: Order Comment: Speci men Type: BLOOD SPECIMENOrdering Facility: [facility] Address: [facility] [place] [id number] Result Comment: Mary mated Glomerular Filtration Rate [...] actual GFR. Performed By: #### 2 777-1, 00824-8 ####[facility] LABIA [id number] [place] [address] [place] Glucose [Mass/Vol] 138 mg/dL High 74-99 [facility] Comment on above: Order Comment: Specdevante thurman Type: BLOOD SPECIMENOrdering Facility: [facility] Address: [address] [place] [address] Result Comment: The [place] [employer] (ADA) provides guidance for cutoff [...] Standards of Medical Care in Diabetes 2016, [place] [employer]. Diabetes Care. 2016.39(Suppl 1). Performed By: #### 2 777-1, 56813-3 ####[facility] LABIA [id number] [place] [address] [place] Potassium [Moles/Vol] 3.3 mmol/L Low 3.7-5.1 [facility] Comment on above: Order Comment: Specdevante men Type: BLOOD SPECIMENOrdering Facility: [facility] Address: [address] [place] [address] Performed By: #### 2 777-1, 48984-8 ####[facility] LABCLIA [id number] [place] [address] [place] Sodium [Moles/Vol] 142 mmol/L Normal 136-144 [facility] Comment on above: Order Comment: Speci men Type: BLOOD SPECIMENOrdering Facility: [facility] Address: [address] [place] [address] Performed By: #### 2 777-1, 37177-9 ####[facility] LABCLIA [id number] [place] [address] [place] Urea nitrogen [Mass/Vol] 3 mg/dL Low 9- [facility] Comment on above: Order Comment: Speci men Type: BLOOD SPECIMENOrdering Facility: [facility] Address: [address] [place] [address] Performed By: #### 2 777-1, 19826-3 ####[facility] LABIA [id number] [address] [place] CBC panel Auto (Bld)on 03-15 Erythrocyte distribution width (RBC) [Ratio] 12.7 % Normal 11.5-15.0 [facility] Comment on above: Order Comment: Speci men Type: BLOOD SPECIMENOrdering Facility: [facility] Address: [address] [place] [address] Performed By: #### 5 8410-2 ####[facility] LABIA [id number] [address] [place] Hematocrit (Bld) [Volume fraction] 25.4 % Low 39.0-51.0 [facility] Comment on above: Order Comment: Speci men Type: BLOOD SPECIMENOrdering Facility: [facility] Address: [address] [place] [address] Performed By: #### 5 8410-2 ####[facility] LABIA [id number] [address] STATES OF [facility] Hemoglobin (Bld) [Mass/Vol] 8.6 g/dL Low 13.0-17.0 [facility] Comment on above: Order Comment: Speci men Type: BLOOD SPECIMENOrdering Facility: [facility] Address: [address] [place] [address] Performed By: #### 5 8410-2 ####[facility] LABIA [id number] [address] MCH (RBC) [Entitic mass] 28.2 pg Normal 26.0-34.0 [facility] Comment on above: Order Comment: Speci men Type: BLOOD SPECIMENOrdering Facility: [facility] Address: [address] [place] [address] Performed By: #### 5 8410-2 ####[facility] LABIA [id number] [address] [place] [facility] MCHC (RBC) [Mass/Vol] 33.9 g/dL Normal 30.5-36.0 [facility] Comment on above: Order Comment: Speci men Type: BLOOD SPECIMENOrdering Facility: [facility] Address: [address] [place] [address] Performed By: #### 5 8410-2 ####[facility] LABIA [id number] [address] [place] MCV (RBC) [Entitic vol] 83.3 fL Normal 80.0-100.0 [facility] Comment on above: Order Comment: Speci men Type: BLOOD SPECIMENOrdering Facility: [facility] Address: [address] [place], [place] [address] Performed By: #### 5 8410-2 ####[facility] LABCLIA [id number] [address] [place] Nucleated RBC (Bld) [#/Vol] 10*3/uL Normal <0.01 [facility] Comment on above: Order Comment: Speci men Type: BLOOD SPECIMENOrdering Facility: [facility] Address: [address] [place], [place] [address] Performed By: #### 5 8410-2 ####[facility] LABIA [id number] [place] [address] [place] Platelet mean volume (Bld) [Entitic vol] 9.3 fL Normal 9.0-12.7 [facility] Comment on above: Order Comment: Speci men Type: BLOOD SPECIMENOrdering Facility: [facility] Address: [address] [place] [address] Performed By: #### 5 8410-2 ####[facility] LABIA [id number] [place] [address] [place] Platelets (Bld) [#/Vol] 186 10*3/uL Normal 150-400 [facility] Comment on above: Order Comment: Speci men Type: BLOOD SPECIMENOrdering Facility: [facility] Address: [address] [address] [place], [place] [address] Performed By: #### 5 8410-2 ####[facility] LABIA [id number] [place] [address] [place] RBC (Bld) [#/Vol] 3.05 10*6/uL Low 4.20-6.00 [facility] Comment on above: Order Comment: Speci men Type: BLOOD SPECIMENOrdering Facility: [facility] Address: [address] [place], [place] [address] Performed By: #### 5 8410-2 ####[facility] LABIA [id number] [place] [address] [place] WBC (Bld) [#/Vol] 7.46 10*3/uL Normal 3.70-11.00 [facility] Comment on above: Order Comment: Speci men Type: BLOOD SPECIMENOrdering Facility: [facility] Address: [address] Performed By: #### 5 8410-2 ####[facility] LABCLIA [id number] [place] [address] [place] CONSULT PROGon 03-15-2023 CONSULT PROG Normal [facility] Comprehensive metabolic 2000 panelon 03-15-2023 Albumin [Mass/Vol] 4.7 g/dL Normal 3.9-4.9 [facility] Comment on above: Order Comment: Speci men Type: BLOOD SPECIMENOrdering Facility: [facility] Address: [address] [address] Performed By: #### 2 4323-8, HSTNT, , 2776-10 ####[facility] LABIA [id number] [place] [address] [place] ALP [Catalytic activity/Vol] 21 U/L Low 38-113 [facility] Comment on above: Order Comment: Speci men Type: BLOOD SPECIMENOrdering Facility: [facility] Address: [address] [address] Performed By: #### 2 4323-8, HSTNT, , 2776-10 ####[facility] LABIA [id number] [place] [address] [place] ALT [Catalytic activity/Vol] 27 U/L Normal 10-54 [facility] Comment on above: Order Comment: Speci men Type: BLOOD SPECIMENOrdering Facility: [facility] Address: [address] Performed By: #### 2 4323-8, HSTNT, , 2776-10 ####[facility] LABCLIA [id number] [place] [address] [place] Anion gap [Moles/Vol] 14 mmol/L Normal 9-18 [facility] Comment on above: Order Comment: Speci men Type: BLOOD SPECIMENOrdering Facility: [facility] Address: [address] [place], [place] [address] Performed By: #### 2 4323-8, HSTNT, , 2776-10 ####[facility] LABCLIA [id number] [place] [address] [place] AST [Catalytic activity/Vol] 42 U/L High 14-40 [facility] Comment on above: Order Comment: Speci men Type: BLOOD SPECIMENOrdering Facility: [facility] Address: [address] [place], [place] [address] Performed By: #### 2 4323-8, HSTNT, , 2776-10 ####[facility] LABCLIA [id number] [place] [address] [place] Bilirubin [Mass/Vol] 2.2 mg/dL High 0.2-1.3 [facility] Comment on above: Order Comment: Speci men Type: BLOOD SPECIMENOrdering Facility: [facility] Address: [address] [place], [place] [address] Performed By: #### 2 4323-8, HSTNT, , 2776-10 ####[facility] LABCLIA [id number] [place] [address] [place] Calcium [Mass/Vol] 8.4 mg/dL Low 8.5-10.2 [facility] Comment on above: Order Comment: Speci men Type: BLOOD SPECIMENOrdering Facility: [facility] Address: [address] [place] [address] Performed By: #### 2 4323-8, HSTNT, , 2776-10 ####[facility] LABCLIA [id number] [place] [address] [place] Chloride [Moles/Vol] 107 mmol/L High 97-105 [facility] Comment on above: Order Comment: Speci men Type: BLOOD SPECIMENOrdering Facility: [facility] Address: [address] [place] [address] Performed By: #### 2 4323-8, HSTNT, , 2776-10 ####[facility] LABCLIA [id number] [place] [address] [place] CO2 [Moles/Vol] 21 mmol/L Low 22-30 [facility] Comment on above: Order Comment: Speci men Type: BLOOD SPECIMENOrdering Facility: [facility] Address: [address] [place] [address] Performed By: #### 2 4323-8, HSTNT, , 2776-10 ####[facility] LABCLIA [id number] [place] [address] [place] Creatinine [Mass/Vol] 0.36 mg/dL Low 0.73-1.22 [facility] Comment on above: Order Comment: Speci men Type: BLOOD SPECIMENOrdering Facility: [facility] Address: [address] [place] [address] Performed By: #### 2 4323-8, HSTNT, , 2776-10 ####[facility] LABIA [id number] [place] [address] [place] GFR/1.73 sq M.predicted among non-blacks MDRD (S/P/Bld) [Vol rate/Area] mL/min/{1.73_m2} Normal >=60 [facility] Comment on above: Order Comment: Speci men Type: BLOOD SPECIMENOrdering Facility: [facility] Address: [address] [place] [address] Result Comment: Mary mated Glomerular Filtration Rate [...] By: #### 2 4323-8, HSTNT, , 2776-10 ####[facility] LABCLIA [id number] [address] [address] [place] Glucose [Mass/Vol] 171 mg/dL High 74-99 [facility] Comment on above: Order Comment: Frantz thurman Type: BLOOD SPECIMENOrdering Facility: [facility] Address: [address] [place] [address] Result Comment: The [place] [employer] (ADA) provides guidance for cutoff [...] Standards of Medical Care in Diabetes 2016, [place] [employer]. Diabetes Care. 2016.39(Suppl 1). Performed By: #### 2 4323-8, HSTNT, , 2776-10 ####[facility] LABCLIA [id number] [place] [address] [place] Potassium [Moles/Vol] 4.1 mmol/L Normal 3.7-5.1 [facility] Comment on above: Order Comment: Frantz thurman Type: BLOOD SPECIMENOrdering Facility: [facility] Address: [address] [place] [address] Performed By: #### 2 4323-8, HSTNT, , 2776-10 ####[facility] LABCLIA [id number] [address] [address] [place] Protein [Mass/Vol] 5.9 g/dL Low 6.3-8.0 [facility] Comment on above: Order Comment: Speci men Type: BLOOD SPECIMENOrdering Facility: [facility] Address: [address] [id number] Performed By: #### 2 4323-8, HSTNT, , 2776-10 ####[facility] LABCLIA [id number] [place] [address] [place] Sodium [Moles/Vol] 142 mmol/L Normal 136-144 [facility] Comment on above: Order Comment: Speci men Type: BLOOD SPECIMENOrdering Facility: [facility] Address: [address] Performed By: #### 2 4323-8, HSTNT, , 2776-10 ####[facility] LABCLIA [id number] [place] [address] [place] Urea nitrogen [Mass/Vol] 5 mg/dL Low - [facility] Comment on above: Order Comment: Speci men Type: BLOOD SPECIMENOrdering Facility: [facility] Address: [address] Performed By: #### 2 4323-8, HSTNT, , 2776-10 ####[facility] LABCLIA [id number] [place] [address] [place] HIGH SENSITIVITY TROPONIN To n 03-15-2023 HIGH SENSITIVITY OMAR 12 ng/L High <12 [facility] Comment on above: Order Comment: Speci men Type: BLOOD SPECIMENOrdering Facility: [facility] Address: [address] Result Comment: When assessing risk for [...] By: #### 2 4323-8, HSTNT, , 2776- ####[facility] LABCLIA [id number] [place] [id number] [place] Magnesium SerPl-mCncon 03-15 Magnesium [Mass/Vol] 2.1 mg/dL Normal 1.7-2.3 [facility] Comment on above: Order Comment: Speci men Type: BLOOD SPECIMENOrdering Facility: [facility] Address: [address] [place] [address] Performed By: #### 2 4323-8, HSTNT, , 2777-1 ####[facility] LABIA [id number] [place] [address] [place] POTASSIUM BLDon 03-15-2023 Potassium [Moles/Vol] 3.6 mmol/L Low 3.7-5.1 [facility] Comment on above: Order Comment: Speci cuca Type: BLOOD SPECIMENOrdering Facility: [facility] Address: [address] [place] [address] Performed By: #### K 1 ####[facility] LABIA [id number] [place] [address] [place] PT panel Coag (PPP)on 2022 INR Coag (PPP) [Relative time] 1.5 {INR} High 0.9-1.3 [facility] Comment on above: Order Comment: Rosalindi cuca Type: BLOOD SPECIMENOrdering Facility: [facility] Address: [address] [place] [address] Result Comment: Gale min K Antagonist (VKA) Therapeutic Range: INR 2 to 3 (Target INR of 2.5)Note: For patients treated with VKA drugs, such as warfarin, the [place] [employer] 2012 Guideline recommends [...] al. Chest 2012, 141:7S-47SNishfrancia RA, et al. [facility] 2017, 70: 252-289 Performed By: #### 3 4528-0 ####[facility] [id number] [place] [address] [place] PT Coag (PPP) [Time] 15.4 s High 9.7-13.0 [facility] Comment on above: Order Comment: Frantz thurman Type: BLOOD SPECIMENOrdering Facility: [facility] Address: [address] [place] [address] Performed By: #### 3 4528-0 ####[facility] [id number] [place] [address] [place] INR Coag (PPP) [Relative time] 1.6 {INR} High 0.9-1.3 [facility] Comment on above: Order Comment: Frantz thurman Type: BLOOD SPECIMENOrdering Facility: [facility] Address: [address] [place] [address] Result Comment: Gale min K Antagonist (VKA) Therapeutic Range: INR 2 to 3 (Target INR of 2.5)Note: For patients treated with VKA drugs, such as warfarin, the [place] [employer] 2012 Guideline recommends [...] al. Chest 2012, 141:7S-47SNishimura RA, et al. [facility] 2017, 70: 252-289 Performed By: #### 3 4528-0, 22435-5 ####[facility] LABCLIA [id number] [place] [address] [place] PT Coag (PPP) [Time] 16.1 s High 9.7-13.0 [facility] Comment on above: Order Comment: Speci men Type: BLOOD SPECIMENOrdering Facility: [facility] Address: [address] [place] [address] Performed By: #### 3 4528-0, 72833-9 ####[facility] LABIA [id number] [place] [address] [place] Phosphate SerPl-mCncon 03-15 Phosphate [Mass/Vol] 2.4 mg/dL Low 2.7-4.8 [facility] Comment on above: Order Comment: Speci men Type: BLOOD SPECIMENOrdering Facility: [facility] Address: [address] [place] [address] Performed By: #### 2 777-1, 78833-1 ####[facility] LABIA [id number] [place] [address] [place] Phosphate [Mass/Vol] 0.9 mg/dL Low 2.7-4.8 [facility] Comment on above: Order Comment: Speci men Type: BLOOD SPECIMENOrdering Facility: [facility] Address: [address] [place] [address] Performed By: #### 2 4323-8, HSTNT, 46448-6, 2777-1 ####[facility] LABCLIA [id number] [place] [address] [place] Procalcitonin SerPl-mCncon 0 03-15-2023 Procalcitonin [Mass/Vol] 0.47 ng/mL High <0.09 [facility] Comment on above: Order Comment: Speci men Type: BLOOD SPECIMENOrdering Facility: [facility] Address: [address] [place], [place] [address] Result Comment: For a guided interpretation of test results, please visit the Change in Procalcitonin Calculator, [email or web address]. Performed By: #### 3 3959-8 ####[facility] LABCLIA [id number] [address] [place] THERAPY NTon 03-15-2023 THERAPY NT Normal [facility] THERAPY NT Normal [facility] XR CHEST 1V FRONTAL PORTon 0 03-15-2023 XR CHEST 1V FRONTAL PORT Normal [facility] aPTT PPPon 03-15-2023 aPTT Coag (PPP) [Time] 66.3 s High 23.0-32.4 [facility] Comment on above: Order Comment: Speci men Type: BLOOD SPECIMENOrdering Facility: [facility] Address: [address] [place] [address] Performed By: #### 3 4528-0, 18391-2 ####[facility] LABIA [id number] [address] [place] ANES POSTPROC EVALon 023 ANES POSTPROC EVAL Normal [facility] ANES PRE-OPon 03-14-2023 ANES PRE-OP Normal [facility] ARTERIAL BLOOD GASESon 03-14 Base deficit (BldA) [Moles/Vol] -8 mmol/L Low -2-0 [facility] Comment on above: Order Comment: Speci men Type: ARTERIAL BLOOD SPECIMENOrdering Facility: [facility] Address: [address] [place] [address] Performed By: #### A LLBG ####[facility] LABIA [id number] [place] [id number] [place] Body temperature 98.24 [degF] Normal [facility] Comment on above: Order Comment: Speci men Type: ARTERIAL BLOOD SPECIMENOrdering Facility: [facility] Address: [address] [place] [address] Performed By: #### A LLBG ####[facility] LABCLIA [id number] [place] [address] [place] Calcium.ionized (Bld) [Mass/Vol] 1.22 mmol/L Normal 1.08-1.30 [facility] Comment on above: Order Comment: Speci men Type: ARTERIAL BLOOD SPECIMENOrdering Facility: [facility] Address: [address] [place] [address] Performed By: #### A LLBG ####[facility] LABCLIA [id number] [place] [address] [place] Calcium.ionized adjusted to pH 7.4 (BldA) [Moles/Vol] 1.15 mmol/L Normal 1.08-1.30 [facility] Comment on above: Order Comment: Speci men Type: ARTERIAL BLOOD SPECIMENOrdering Facility: [facility] Address: [address] [place] [address] Performed By: #### A LLBG ####[facility] LABCLIA [id number] [place] [address] [place] Carboxyhemoglobin (BldA) [Mass fraction] 1.1 % Normal 0.0-2.0 [facility] Comment on above: Order Comment: Speci men Type: ARTERIAL BLOOD SPECIMENOrdering Facility: [facility] Address: [address] [place] [address] Result Comment: Carb oxyhemoglobin Reference Range for Smokers: 2.0-8.0% Performed By: #### A LLBG ####[facility] LABCLIA [id number] [place] [address] [place] CO2 (Bld) [Partial pressure] 38 mm Hg Normal 36-46 [facility] Comment on above: Order Comment: Speci men Type: ARTERIAL BLOOD SPECIMENOrdering Facility: [facility] Address: [address] Performed By: #### A LLBG ####[facility] LABCLIA [id number] [place] [address] [place] CO2 [Moles/Vol] 19 mmol/L Low 22-28 [facility] Comment on above: Order Comment: Speci men Type: ARTERIAL BLOOD SPECIMENOrdering Facility: [facility] Address: [address] Performed By: #### A LLBG ####[facility] LABCLIA [id number] [place] [address] [place] CO2 adjusted to patient's actual temperature (Bld) [Partial pressure] 38 mmHg Normal 36-46 [facility] Comment on above: Order Comment: Speci men Type: ARTERIAL BLOOD SPECIMENOrdering Facility: [facility] Address: [address] Performed By: #### A LLBG ####[facility] LABCLIA [id number] [place] [address] [place] FIO2 40 % Normal [facility] Comment on above: Order Comment: Speci men Type: ARTERIAL BLOOD SPECIMENOrdering Facility: [facility] Address: [address] [place] [address] Performed By: #### A LLBG ####[facility] LABCLIA [id number] [place] [address] [place] Glucose [Mass/Vol] 169 mg/dL High 60-105 [facility] Comment on above: Order Comment: Speci men Type: ARTERIAL BLOOD SPECIMENOrdering Facility: [facility] Address: [address] Performed By: #### A LLBG ####[facility] LABCLIA [id number] [place] [address] [place] HCO3 (Bld) [Moles/Vol] 18 mmol/L Low 22-26 [facility] Comment on above: Order Comment: Speci men Type: ARTERIAL BLOOD SPECIMENOrdering Facility: [facility] Address: [address] [place] [address] Performed By: #### A LLBG ####[facility] LABCLIA [id number] [place] [address] [place] Hematocrit (Bld) [Volume fraction] 28.2 % Low 39.0-51.0 [facility] Comment on above: Order Comment: Speci men Type: ARTERIAL BLOOD SPECIMENOrdering Facility: [facility] Address: [address] [place] [address] Performed By: #### A LLBG ####[facility] LABCLIA [id number] [place] [address] [place] Hemoglobin (Bld) [Mass/Vol] 9.1 g/dL Low 13.0-17.0 [facility] Comment on above: Order Comment: Speci men Type: ARTERIAL BLOOD SPECIMENOrdering Facility: [facility] Address: [address] [place] [address] Performed By: #### A LLBG ####[facility] LABCLIA [id number] [place] [address] [place] Lactate [Moles/Vol] 1.2 mmol/L Normal 0.5-2.2 [facility] Comment on above: Order Comment: Speci men Type: ARTERIAL BLOOD SPECIMENOrdering Facility: [facility] Address: [address] [place], [place] [address] Performed By: #### A LLBG ####[facility] LABCLIA [id number] [place] [address] [place] Methemoglobin (Bld) [Mass fraction] 1.3 % Normal 0.0-1.5 [facility] Comment on above: Order Comment: Speci men Type: ARTERIAL BLOOD SPECIMENOrdering Facility: [facility] Address: [address] Performed By: #### A LLBG ####[facility] LABCLIA [id number] [address] [place] O2 THERAPY Ventilator Normal [facility] Comment on above: Order Comment: Speci men Type: ARTERIAL BLOOD SPECIMENOrdering Facility: [facility] Address: [address] [place] [address] Performed By: #### A LLBG ####[facility] LABCLIA [id number] [place] [address] [place] Oxygen (Bld) [Partial pressure] 187 mm Hg High 85-95 [facility] Comment on above: Order Comment: Speci men Type: ARTERIAL BLOOD SPECIMENOrdering Facility: [facility] Address: [address] [place] [address] Performed By: #### A LLBG ####[facility] LABCLIA [id number] [address] [place] Oxygen adjusted to patient's actual temperature (Bld) [Partial pressure] 186 mmHg High 85-95 [facility] Comment on above: Order Comment: Speci men Type: ARTERIAL BLOOD SPECIMENOrdering Facility: [facility] Address: [address] [place] [address] Performed By: #### A LLBG ####[facility] LABCLIA [id number] [place] [address] [place] Oxyhemoglobin (BldA) [Mass fraction] 97 % Normal 95-98 [facility] Comment on above: Order Comment: Speci men Type: ARTERIAL BLOOD SPECIMENOrdering Facility: [facility] Address: [address] [place] [address] Performed By: #### A LLBG ####[facility] LABCLIA [id number] [place] [address] [place] pH (Bld) 7.29 [pH] Low 7.35-7.45 [facility] Comment on above: Order Comment: Speci men Type: ARTERIAL BLOOD SPECIMENOrdering Facility: [facility] Address: [address] [place] [address] Performed By: #### A LLBG ####[facility] LABCLIA [id number] [place] [address] [place] pH adjusted to patient's actual temperature (Bld) 7.29 Low 7.35-7.45 [facility] Comment on above: Order Comment: Speci men Type: ARTERIAL BLOOD SPECIMENOrdering Facility: [facility] Address: [address] [place] [address] Performed By: #### A LLBG ####[facility] LABIA [id number] [place] [address] [place] Potassium [Moles/Vol] 3.6 mmol/L Normal 3.5-5.0 [facility] Comment on above: Order Comment: Speci men Type: ARTERIAL BLOOD SPECIMENOrdering Facility: [facility] Address: [address] [place] [address] Performed By: #### A LLBG ####[facility] LABIA [id number] [place] [address] [place] Sodium [Moles/Vol] 144 mmol/L Normal 136-144 [facility] Comment on above: Order Comment: Speci men Type: ARTERIAL BLOOD SPECIMENOrdering Facility: [facility] Address: [address] [place], [place] [address] Performed By: #### A LLBG ####[facility] LABCLIA [id number] [place] [address] [place] Base deficit (BldA) [Moles/Vol] -14 mmol/L Low -2-0 [facility] Comment on above: Order Comment: Speci men Type: ARTERIAL BLOOD SPECIMENOrdering Facility: [facility] Address: [address] [place] [address] Performed By: #### A LLBG ####[facility] LABIA [id number] [place] [address] [place] Calcium.ionized (Bld) [Mass/Vol] 1.20 mmol/L Normal 1.08-1.30 [facility] Comment on above: Order Comment: Speci men Type: ARTERIAL BLOOD SPECIMENOrdering Facility: [facility] Address: [address] [place] [address] Performed By: #### A LLBG ####[facility] LABIA [id number] [place] [address] [place] Calcium.ionized adjusted to pH 7.4 (BldA) [Moles/Vol] 1.08 mmol/L Normal 1.08-1.30 [facility] Comment on above: Order Comment: Speci men Type: ARTERIAL BLOOD SPECIMENOrdering Facility: [facility] Address: [address] [place] [address] Performed By: #### A LLBG ####[facility] LABIA [id number] [place] [address] [place] Carboxyhemoglobin (BldA) [Mass fraction] 0.8 % Normal 0.0-2.0 [facility] Comment on above: Order Comment: Speci men Type: ARTERIAL BLOOD SPECIMENOrdering Facility: [facility] Address: [address] [place], [place] [address] Result Comment: Carb oxyhemoglobin Reference Range for Smokers: 2.0-8.0% Performed By: #### A LLBG ####[facility] LABIA [id number] [place] [address] [place] CO2 (Bld) [Partial pressure] 32 mm Hg Low 36-46 [facility] Comment on above: Order Comment: Speci men Type: ARTERIAL BLOOD SPECIMENOrdering Facility: [facility] Address: [address] [place] Performed By: #### A LLBG ####[facility] LABCLIA [id number] [place] [address] [place] CO2 [Moles/Vol] 13 mmol/L Low 22-28 [facility] Comment on above: Order Comment: Speci men Type: ARTERIAL BLOOD SPECIMENOrdering Facility: [facility] Address: [address] [place] [address] Performed By: #### A LLBG ####[facility] LABCLIA [id number] [address] [place] CO2 adjusted to patient's actual temperature (Bld) [Partial pressure] 32 mmHg Low 36-46 [facility] Comment on above: Order Comment: Speci men Type: ARTERIAL BLOOD SPECIMENOrdering Facility: [facility] Address: [address] [place] [address] Performed By: #### A LLBG ####[facility] LABCLIA [id number] [place] [address] [place] Glucose [Mass/Vol] 157 mg/dL High 60-105 [facility] Comment on above: Order Comment: Speci men Type: ARTERIAL BLOOD SPECIMENOrdering Facility: [facility] Address: [address] [place], [place] Performed By: #### A LLBG ####[facility] LABCLIA [id number] [place] [address] [place] HCO3 (Bld) [Moles/Vol] 12 mmol/L Low 22-26 [facility] Comment on above: Order Comment: Speci men Type: ARTERIAL BLOOD SPECIMENOrdering Facility: [facility] Address: [address] [place] [address] Performed By: #### A LLBG ####[facility] LABCLIA [id number] [place] [address] [place] Hematocrit (Bld) [Volume fraction] 33.9 % Low 39.0-51.0 [facility] Comment on above: Order Comment: Speci men Type: ARTERIAL BLOOD SPECIMENOrdering Facility: [facility] Address: [address] [place], [place] [address] Performed By: #### A LLBG ####[facility] LABCLIA [id number] [place] [address] [place] Hemoglobin (Bld) [Mass/Vol] 11.0 g/dL Low 13.0-17.0 [facility] Comment on above: Order Comment: Speci men Type: ARTERIAL BLOOD SPECIMENOrdering Facility: [facility] Address: [address] [place] [address] Performed By: #### A LLBG ####[facility] LABCLIA [id number] [place] [address] [place] Lactate [Moles/Vol] 1.5 mmol/L Normal 0.5-2.2 [facility] Comment on above: Order Comment: Speci men Type: ARTERIAL BLOOD SPECIMENOrdering Facility: [facility] Address: [address] [place], [place] [address] Performed By: #### A LLBG ####[facility] LABCLIA [id number] [place] [address] [place] Methemoglobin (Bld) [Mass fraction] 1.1 % Normal 0.0-1.5 [facility] Comment on above: Order Comment: Speci men Type: ARTERIAL BLOOD SPECIMENOrdering Facility: [facility] Address: [address] [place], [place] [address] Performed By: #### A LLBG ####[facility] LABCLIA [id number] [place] [address] [place] Oxygen (Bld) [Partial pressure] 279 mm Hg High 85-95 [facility] Comment on above: Order Comment: Speci men Type: ARTERIAL BLOOD SPECIMENOrdering Facility: [facility] Address: [address] Performed By: #### A LLBG ####[facility] LABCLIA [id number] [place] [address] [place] Oxygen adjusted to patient's actual temperature (Bld) [Partial pressure] 279 mmHg High 85-95 [facility] Comment on above: Order Comment: Speci men Type: ARTERIAL BLOOD SPECIMENOrdering Facility: [facility] Address: [address] Performed By: #### A LLBG ####[facility] LABCLIA [id number] [place] [address] [place] Oxyhemoglobin (BldA) [Mass fraction] 97 % Normal 95-98 [facility] Comment on above: Order Comment: Speci men Type: ARTERIAL BLOOD SPECIMENOrdering Facility: [facility] Address: [address] [place], [place] [address] Performed By: #### A LLBG ####[facility] LABCLIA [id number] [place] [address] [place] pH (Bld) 7.21 [pH] Low 7.35-7.45 [facility] Comment on above: Order Comment: Speci men Type: ARTERIAL BLOOD SPECIMENOrdering Facility: [facility] Address: [address] Performed By: #### A LLBG ####[facility] LABCLIA [id number] [place] [address] [place] pH adjusted to patient's actual temperature (Bld) 7.21 Low 7.35-7.45 [facility] Comment on above: Order Comment: Speci men Type: ARTERIAL BLOOD SPECIMENOrdering Facility: [facility] Address: [address] Performed By: #### A LLBG ####[facility] LABCLIA [id number] [place] [address] [place] Potassium [Moles/Vol] 4.2 mmol/L Normal 3.5-5.0 [facility] Comment on above: Order Comment: Speci men Type: ARTERIAL BLOOD SPECIMENOrdering Facility: [facility] Address: [address] [place] [address] Performed By: #### A LLBG ####[facility] LABCLIA [id number] [place] [address] [place] Sodium [Moles/Vol] 139 mmol/L Normal 136-144 [facility] Comment on above: Order Comment: Speci men Type: ARTERIAL BLOOD SPECIMENOrdering Facility: [facility] Address: [address] [place] [address] Performed By: #### A LLBG ####[facility] LABIA [id number] [place] [address] [place] ARTERIAL BLOOD GASES WITH IO NIZED MAGNESIUMon 03-14-2023 Base deficit (BldA) [Moles/Vol] -11 mmol/L Low -2-0 [facility] Comment on above: Order Comment: Speci men Type: ARTERIAL BLOOD SPECIMENOrdering Facility: [facility] Address: [address] [place], [place] [address] Performed By: #### A LLMG ####[facility] LABIA [id number] [place] [address] [place] Calcium.ionized (Bld) [Mass/Vol] 1.14 mmol/L Normal 1.08-1.30 [facility] Comment on above: Order Comment: Speci men Type: ARTERIAL BLOOD SPECIMENOrdering Facility: [facility] Address: [address] [place], [place] [address] Performed By: #### A LLMG ####[facility] LABCLIA [id number] [place] [address] [place] Calcium.ionized adjusted to pH 7.4 (BldA) [Moles/Vol] 1.05 mmol/L Low 1.08-1.30 [facility] Comment on above: Order Comment: Speci men Type: ARTERIAL BLOOD SPECIMENOrdering Facility: [facility] Address: [address] [place] [address] Performed By: #### A LLMG ####[facility] LABCLIA [id number] [address] [place] Carboxyhemoglobin (BldA) [Mass fraction] 1.0 % Normal 0.0-2.0 [facility] Comment on above: Order Comment: Speci men Type: ARTERIAL BLOOD SPECIMENOrdering Facility: [facility] Address: [address] [place] [address] Result Comment: Carb oxyhemoglobin Reference Range for Smokers: 2.0-8.0% Performed By: #### A LLMG ####[facility] LABCLIA [id number] [address] [place] CO2 (Bld) [Partial pressure] 35 mm Hg Low 36-46 [facility] Comment on above: Order Comment: Speci men Type: ARTERIAL BLOOD SPECIMENOrdering Facility: [facility] Address: [address] [place] [address] Performed By: #### A LLMG ####[facility] LABCLIA [id number] [place] [address] [place] CO2 [Moles/Vol] 16 mmol/L Low 22-28 [facility] Comment on above: Order Comment: Speci men Type: ARTERIAL BLOOD SPECIMENOrdering Facility: [facility] Address: [address] [place], [place] [address] Performed By: #### A LLMG ####[facility] LABCLIA [id number] [place] [address] [place] CO2 adjusted to patient's actual temperature (Bld) [Partial pressure] 35 mmHg Low 36-46 [facility] Comment on above: Order Comment: Speci men Type: ARTERIAL BLOOD SPECIMENOrdering Facility: [facility] Address: [address] [place] [address] Performed By: #### A LLMG ####[facility] LABCLIA [id number] [place] [address] [place] Glucose [Mass/Vol] 160 mg/dL High 60-105 [facility] Comment on above: Order Comment: Speci men Type: ARTERIAL BLOOD SPECIMENOrdering Facility: [facility] Address: [address] Performed By: #### A LLMG ####[facility] LABCLIA [id number] [place] [address] [place] HCO3 (Bld) [Moles/Vol] 15 mmol/L Low 22-26 [facility] Comment on above: Order Comment: Speci men Type: ARTERIAL BLOOD SPECIMENOrdering Facility: [facility] Address: [address] [place], [place] [address] Performed By: #### A LLMG ####[facility] LABCLIA [id number] [place] [address] [place] Hematocrit (Bld) [Volume fraction] 26.7 % Low 39.0-51.0 [facility] Comment on above: Order Comment: Speci men Type: ARTERIAL BLOOD SPECIMENOrdering Facility: [facility] Address: [address] Performed By: #### A LLMG ####[facility] LABCLIA [id number] [place] [address] [place] Hemoglobin (Bld) [Mass/Vol] 8.6 g/dL Low 13.0-17.0 [facility] Comment on above: Order Comment: Speci men Type: ARTERIAL BLOOD SPECIMENOrdering Facility: [facility] Address: [address] Performed By: #### A LLMG ####[facility] LABCLIA [id number] [place] [address] [place] Lactate [Moles/Vol] 1.3 mmol/L Normal 0.5-2.2 [facility] Comment on above: Order Comment: Speci men Type: ARTERIAL BLOOD SPECIMENOrdering Facility: [facility] Address: [address] [place] [address] Performed By: #### A LLMG ####[facility] LABIA [id number] [place] [address] [place] Magnesium [Moles/Vol] 0.52 mmol/L Normal 0.45-0.60 [facility] Comment on above: Order Comment: Speci men Type: ARTERIAL BLOOD SPECIMENOrdering Facility: [facility] Address: [address] [place] [address] Performed By: #### A LLMG ####[facility] [id number] [address] [place] Methemoglobin (Bld) [Mass fraction] 1.2 % Normal 0.0-1.5 [facility] Comment on above: Order Comment: Speci men Type: ARTERIAL BLOOD SPECIMENOrdering Facility: [facility] Address: [address] [place], [place] [address] Performed By: #### A LLMG ####[facility] [id number] [place] [address] [place] Oxygen (Bld) [Partial pressure] 235 mm Hg High 85-95 [facility] Comment on above: Order Comment: Speci men Type: ARTERIAL BLOOD SPECIMENOrdering Facility: [facility] Address: [address] [place], [place] [address] Performed By: #### A LLMG ####[facility] LABIA [id number] [place] [address] [place] Oxygen adjusted to patient's actual temperature (Bld) [Partial pressure] 235 mmHg High 85-95 [facility] Comment on above: Order Comment: Speci men Type: ARTERIAL BLOOD SPECIMENOrdering Facility: [facility] Address: [address] Performed By: #### A LLMG ####[facility] LABIA [id number] [place] [address] [place] Oxyhemoglobin (BldA) [Mass fraction] 97 % Normal 95-98 [facility] Comment on above: Order Comment: Speci men Type: ARTERIAL BLOOD SPECIMENOrdering Facility: [facility] Address: [address] Performed By: #### A LLMG ####[facility] LABIA [id number] [place] [address] [place] pH (Bld) 7.26 [pH] Low 7.35-7.45 [facility] Comment on above: Order Comment: Speci men Type: ARTERIAL BLOOD SPECIMENOrdering Facility: [facility] Address: [address] Performed By: #### A LLMG ####[facility] LABIA [id number] [place] [address] [place] pH adjusted to patient's actual temperature (Bld) 7.26 Low 7.35-7.45 [facility] Comment on above: Order Comment: Speci men Type: ARTERIAL BLOOD SPECIMENOrdering Facility: [facility] Address: [address] Performed By: #### A LLMG ####[facility] LABIA [id number] [place] [address] [place] Potassium [Moles/Vol] 3.9 mmol/L Normal 3.5-5.0 [facility] Comment on above: Order Comment: Speci men Type: ARTERIAL BLOOD SPECIMENOrdering Facility: [facility] Address: [address] Performed By: #### A LLMG ####[facility] LABCLIA [id number] [place] [address] [place] Sodium [Moles/Vol] 142 mmol/L Normal 136-144 [facility] Comment on above: Order Comment: Speci men Type: ARTERIAL BLOOD SPECIMENOrdering Facility: [facility] Address: [address] [place] [address] Performed By: #### A LLMG ####[facility] LABIA [id number] [place] [address] [place] Base deficit (BldA) [Moles/Vol] -12 mmol/L Low -2-0 [facility] Comment on above: Order Comment: Speci men Type: ARTERIAL BLOOD SPECIMENOrdering Facility: [facility] Address: [address] [place] [address] Performed By: #### A LLMG ####[facility] LABIA [id number] [address] [place] Calcium.ionized (Bld) [Mass/Vol] 1.14 mmol/L Normal 1.08-1.30 [facility] Comment on above: Order Comment: Speci men Type: ARTERIAL BLOOD SPECIMENOrdering Facility: [facility] Address: [address] [place], [place] [address] Performed By: #### A LLMG ####[facility] LABIA [id number] [place] [address] [place] Calcium.ionized adjusted to pH 7.4 (BldA) [Moles/Vol] 1.04 mmol/L Low 1.08-1.30 [facility] Comment on above: Order Comment: Speci men Type: ARTERIAL BLOOD SPECIMENOrdering Facility: [facility] Address: [address] [place], [place] [address] Performed By: #### A LLMG ####[facility] LABIA [id number] [place] [address] [place] Carboxyhemoglobin (BldA) [Mass fraction] 0.9 % Normal 0.0-2.0 [facility] Comment on above: Order Comment: Speci men Type: ARTERIAL BLOOD SPECIMENOrdering Facility: [facility] Address: [address] [place] [address] Result Comment: Carb oxyhemoglobin Reference Range for Smokers: 2.0-8.0% Performed By: #### A LLMG ####[facility] LABCLIA [id number] [place] [address] [place] CO2 (Bld) [Partial pressure] 33 mm Hg Low 36-46 [facility] Comment on above: Order Comment: Speci men Type: ARTERIAL BLOOD SPECIMENOrdering Facility: [facility] Address: [address] [place] [address] Performed By: #### A LLMG ####[facility] LABCLIA [id number] [place] [address] [place] CO2 [Moles/Vol] 15 mmol/L Low 22-28 [facility] Comment on above: Order Comment: Speci men Type: ARTERIAL BLOOD SPECIMENOrdering Facility: [facility] Address: [address] [place] [address] Performed By: #### A LLMG ####[facility] LABCLIA [id number] [place] [address] [place] CO2 adjusted to patient's actual temperature (Bld) [Partial pressure] 33 mmHg Low 36-46 [facility] Comment on above: Order Comment: Speci men Type: ARTERIAL BLOOD SPECIMENOrdering Facility: [facility] Address: [address] [place], [place] [address] Performed By: #### A LLMG ####[facility] LABCLIA [id number] [place] [address] [place] Glucose [Mass/Vol] 165 mg/dL High 60-105 [facility] Comment on above: Order Comment: Speci men Type: ARTERIAL BLOOD SPECIMENOrdering Facility: [facility] Address: [address] Performed By: #### A LLMG ####[facility] LABCLIA [id number] [place] [address] [place] HCO3 (Bld) [Moles/Vol] 14 mmol/L Low 22-26 [facility] Comment on above: Order Comment: Speci men Type: ARTERIAL BLOOD SPECIMENOrdering Facility: [facility] Address: [address] Performed By: #### A LLMG ####[facility] LABCLIA [id number] [place] [address] [place] Hematocrit (Bld) [Volume fraction] 31.0 % Low 39.0-51.0 [facility] Comment on above: Order Comment: Speci men Type: ARTERIAL BLOOD SPECIMENOrdering Facility: [facility] Address: [address] [place], [place] [address] Performed By: #### A LLMG ####[facility] LABCLIA [id number] [place] [address] [place] Hemoglobin (Bld) [Mass/Vol] 10.0 g/dL Low 13.0-17.0 [facility] Comment on above: Order Comment: Speci men Type: ARTERIAL BLOOD SPECIMENOrdering Facility: [facility] Address: [address] [place], [place] [address] Performed By: #### A LLMG ####[facility] LABCLIA [id number] [place] [address] [place] Lactate [Moles/Vol] 2.1 mmol/L Normal 0.5-2.2 [facility] Comment on above: Order Comment: Speci men Type: ARTERIAL BLOOD SPECIMENOrdering Facility: [facility] Address: [address] Performed By: #### A LLMG ####[facility] LABCLIA [id number] [place] [address] [place] Magnesium [Moles/Vol] 0.56 mmol/L Normal 0.45-0.60 [facility] Comment on above: Order Comment: Speci men Type: ARTERIAL BLOOD SPECIMENOrdering Facility: [facility] Address: [address] [place] [address] Performed By: #### A LLMG ####[facility] LABIA [id number] [address] [place] Methemoglobin (Bld) [Mass fraction] 1.1 % Normal 0.0-1.5 [facility] Comment on above: Order Comment: Speci men Type: ARTERIAL BLOOD SPECIMENOrdering Facility: [facility] Address: [address] [place] [address] Performed By: #### A LLMG ####[facility] LABIA [id number] [address] [place] Oxygen (Bld) [Partial pressure] 249 mm Hg High 85-95 [facility] Comment on above: Order Comment: Speci men Type: ARTERIAL BLOOD SPECIMENOrdering Facility: [facility] Address: [address] [place], [place] [address] Performed By: #### A LLMG ####[facility] LABIA [id number] [place] [address] [place] Oxygen adjusted to patient's actual temperature (Bld) [Partial pressure] 249 mmHg High 85-95 [facility] Comment on above: Order Comment: Speci men Type: ARTERIAL BLOOD SPECIMENOrdering Facility: [facility] Address: [address] [place], [place] [address] Performed By: #### A LLMG ####[facility] LABCLIA [id number] [place] [address] [place] Oxyhemoglobin (BldA) [Mass fraction] 97 % Normal 95-98 [facility] Comment on above: Order Comment: Speci men Type: ARTERIAL BLOOD SPECIMENOrdering Facility: [facility] Address: [address] Performed By: #### A LLMG ####[facility] LABCLIA [id number] [place] [address] [place] pH (Bld) 7.25 [pH] Low 7.35-7.45 [facility] Comment on above: Order Comment: Speci men Type: ARTERIAL BLOOD SPECIMENOrdering Facility: [facility] Address: [address] Performed By: #### A LLMG ####[facility] LABCLIA [id number] [place] [address] [place] pH adjusted to patient's actual temperature (Bld) 7.25 Low 7.35-7.45 [facility] Comment on above: Order Comment: Speci men Type: ARTERIAL BLOOD SPECIMENOrdering Facility: [facility] Address: [address] Performed By: #### A LLMG ####[facility] LABCLIA [id number] [place] [address] [place] Potassium [Moles/Vol] 4.0 mmol/L Normal 3.5-5.0 [facility] Comment on above: Order Comment: Speci men Type: ARTERIAL BLOOD SPECIMENOrdering Facility: [facility] Address: [address] Performed By: #### A LLMG ####[facility] LABCLIA [id number] [place] [address] [place] Sodium [Moles/Vol] 139 mmol/L Normal 136-144 [facility] Comment on above: Order Comment: Speci men Type: ARTERIAL BLOOD SPECIMENOrdering Facility: [facility] Address: [address] Performed By: #### A LLMG ####[facility] LABIA [id number] [place] [address] [place] Base deficit (BldA) [Moles/Vol] -11 mmol/L Low -2-0 [facility] Comment on above: Order Comment: Speci men Type: ARTERIAL BLOOD SPECIMENOrdering Facility: [facility] Address: [address] [place] [address] Performed By: #### A LLMG ####[facility] LABIA [id number] [place] [address] [place] Calcium.ionized (Bld) [Mass/Vol] 1.30 mmol/L Normal 1.08-1.30 [facility] Comment on above: Order Comment: Speci men Type: ARTERIAL BLOOD SPECIMENOrdering Facility: [facility] Address: [address] [place] [address] Performed By: #### A LLMG ####[facility] LABIA [id number] [place] [address] [place] Calcium.ionized adjusted to pH 7.4 (BldA) [Moles/Vol] 1.21 mmol/L Normal 1.08-1.30 [facility] Comment on above: Order Comment: Speci men Type: ARTERIAL BLOOD SPECIMENOrdering Facility: [facility] Address: [address] [place] [address] Performed By: #### A LLMG ####[facility] LABIA [id number] [address] [place] Carboxyhemoglobin (BldA) [Mass fraction] 1.1 % Normal 0.0-2.0 [facility] Comment on above: Order Comment: Speci men Type: ARTERIAL BLOOD SPECIMENOrdering Facility: [facility] Address: [address] [place] [address] Result Comment: Carb oxyhemoglobin Reference Range for Smokers: 2.0-8.0% Performed By: #### A LLMG ####[facility] LABCLIA [id number] [place] [address] [place] CO2 (Bld) [Partial pressure] 32 mm Hg Low 36-46 [facility] Comment on above: Order Comment: Speci men Type: ARTERIAL BLOOD SPECIMENOrdering Facility: [facility] Address: [address] [place] [address] Performed By: #### A LLMG ####[facility] LABCLIA [id number] [place] [address] [place] CO2 [Moles/Vol] 15 mmol/L Low 22-28 [facility] Comment on above: Order Comment: Speci men Type: ARTERIAL BLOOD SPECIMENOrdering Facility: [facility] Address: [address] [place] [address] Performed By: #### A LLMG ####[facility] LABCLIA [id number] [place] [address] [place] CO2 adjusted to patient's actual temperature (Bld) [Partial pressure] 32 mmHg Low 36-46 [facility] Comment on above: Order Comment: Speci men Type: ARTERIAL BLOOD SPECIMENOrdering Facility: [facility] Address: [address] [place], [place] [address] Performed By: #### A LLMG ####[facility] LABCLIA [id number] [place] [address] [place] Glucose [Mass/Vol] 124 mg/dL High 60-105 [facility] Comment on above: Order Comment: Speci men Type: ARTERIAL BLOOD SPECIMENOrdering Facility: [facility] Address: [address] [place], [place] [address] Performed By: #### A LLMG ####[facility] LABCLIA [id number] [place] [address] [place] HCO3 (Bld) [Moles/Vol] 14 mmol/L Low 22-26 [facility] Comment on above: Order Comment: Speci men Type: ARTERIAL BLOOD SPECIMENOrdering Facility: [facility] Address: [address] Performed By: #### A LLMG ####[facility] LABCLIA [id number] [address] [place] Hematocrit (Bld) [Volume fraction] 40.2 % Normal 39.0-51.0 [facility] Comment on above: Order Comment: Speci men Type: ARTERIAL BLOOD SPECIMENOrdering Facility: [facility] Address: [address] Performed By: #### A LLMG ####[facility] LABCLIA [id number] [place] [address] [place] Hemoglobin (Bld) [Mass/Vol] 13.1 g/dL Normal 13.0-17.0 [facility] Comment on above: Order Comment: Speci men Type: ARTERIAL BLOOD SPECIMENOrdering Facility: [facility] Address: [address] Performed By: #### A LLMG ####[facility] LABCLIA [id number] [place] [address] [place] Lactate [Moles/Vol] 1.5 mmol/L Normal 0.5-2.2 [facility] Comment on above: Order Comment: Speci men Type: ARTERIAL BLOOD SPECIMENOrdering Facility: [facility] Address: [address] Performed By: #### A LLMG ####[facility] LABCLIA [id number] [place] [address] [place] Magnesium [Moles/Vol] 0.79 mmol/L High 0.45-0.60 [facility] Comment on above: Order Comment: Speci men Type: ARTERIAL BLOOD SPECIMENOrdering Facility: [facility] Address: [address] Performed By: #### A LLMG ####[facility] LABCLIA [id number] [place] [address] [place] Methemoglobin (Bld) [Mass fraction] 0.9 % Normal 0.0-1.5 [facility] Comment on above: Order Comment: Speci men Type: ARTERIAL BLOOD SPECIMENOrdering Facility: [facility] Address: [address] [place] [address] Performed By: #### A LLMG ####[facility] LABCLIA [id number] [place] [address] [place] Oxygen (Bld) [Partial pressure] 233 mm Hg High 85-95 [facility] Comment on above: Order Comment: Speci men Type: ARTERIAL BLOOD SPECIMENOrdering Facility: [facility] Address: [address] [place], [place] [address] Performed By: #### A LLMG ####[facility] LABIA [id number] [place] [address] [place] Oxygen adjusted to patient's actual temperature (Bld) [Partial pressure] 233 mmHg High 85-95 [facility] Comment on above: Order Comment: Speci men Type: ARTERIAL BLOOD SPECIMENOrdering Facility: [facility] Address: [address] [place], [place] [address] Performed By: #### A LLMG ####[facility] LABIA [id number] [place] [address] [place] Oxyhemoglobin (BldA) [Mass fraction] 98 % Normal 95-98 [facility] Comment on above: Order Comment: Speci men Type: ARTERIAL BLOOD SPECIMENOrdering Facility: [facility] Address: [address] [place], [place] [address] Performed By: #### A LLMG ####[facility] LABIA [id number] [place] [address] [place] pH (Bld) 7.28 [pH] Low 7.35-7.45 [facility] Comment on above: Order Comment: Speci men Type: ARTERIAL BLOOD SPECIMENOrdering Facility: [facility] Address: [address] Performed By: #### A LLMG ####[facility] [id number] [place] [address] [place] pH adjusted to patient's actual temperature (Bld) 7.28 Low 7.35-7.45 [facility] Comment on above: Order Comment: Speci men Type: ARTERIAL BLOOD SPECIMENOrdering Facility: [facility] Address: [address] Performed By: #### A LLMG ####[facility] [id number] [place] [address] [place] Potassium [Moles/Vol] 4.3 mmol/L Normal 3.5-5.0 [facility] Comment on above: Order Comment: Speci men Type: ARTERIAL BLOOD SPECIMENOrdering Facility: [facility] Address: [address] Performed By: #### A LLMG ####[facility] [id number] [place] [address] [place] Sodium [Moles/Vol] 137 mmol/L Normal 136-144 [facility] Comment on above: Order Comment: Speci men Type: ARTERIAL BLOOD SPECIMENOrdering Facility: [facility] Address: [address] [place] [address] Performed By: #### A LLMG ####[facility] [id number] [place] [address] [place] Base deficit (BldA) [Moles/Vol] -11 mmol/L Low -2-0 [facility] Comment on above: Order Comment: Speci men Type: ARTERIAL BLOOD SPECIMENOrdering Facility: [facility] Address: [address] Performed By: #### A LLMG ####[facility] LABCLIA [id number] [place] [address] [place] Calcium.ionized (Bld) [Mass/Vol] 1.49 mmol/L High 1.08-1.30 [facility] Comment on above: Order Comment: Speci men Type: ARTERIAL BLOOD SPECIMENOrdering Facility: [facility] Address: [address] [place] [address] Performed By: #### A LLMG ####[facility] LABIA [id number] [place] [address] [place] Calcium.ionized adjusted to pH 7.4 (BldA) [Moles/Vol] 1.38 mmol/L High 1.08-1.30 [facility] Comment on above: Order Comment: Speci men Type: ARTERIAL BLOOD SPECIMENOrdering Facility: [facility] Address: [address] [place] [address] Performed By: #### A LLMG ####[facility] LABIA [id number] [place] [address] [place] Carboxyhemoglobin (BldA) [Mass fraction] 1.0 % Normal 0.0-2.0 [facility] Comment on above: Order Comment: Speci men Type: ARTERIAL BLOOD SPECIMENOrdering Facility: [facility] Address: [address] [place] [address] Result Comment: Carb oxyhemoglobin Reference Range for Smokers: 2.0-8.0% Performed By: #### A LLMG ####[facility] LABIA [id number] [place] [address] [place] CO2 (Bld) [Partial pressure] 34 mm Hg Low 36-46 [facility] Comment on above: Order Comment: Speci men Type: ARTERIAL BLOOD SPECIMENOrdering Facility: [facility] Address: [address] [place] [address] Performed By: #### A LLMG ####[facility] LABIA [id number] [place] [address] [place] CO2 [Moles/Vol] 16 mmol/L Low 22-28 [facility] Comment on above: Order Comment: Speci men Type: ARTERIAL BLOOD SPECIMENOrdering Facility: [facility] Address: [address] [place] [address] Performed By: #### A LLMG ####[facility] LABCLIA [id number] [place] [address] [place] CO2 adjusted to patient's actual temperature (Bld) [Partial pressure] 34 mmHg Low 36-46 [facility] Comment on above: Order Comment: Speci men Type: ARTERIAL BLOOD SPECIMENOrdering Facility: [facility] Address: [address] [place] [address] Performed By: #### A LLMG ####[facility] LABCLIA [id number] [place] [address] [place] Glucose [Mass/Vol] 121 mg/dL High 60-105 [facility] Comment on above: Order Comment: Speci men Type: ARTERIAL BLOOD SPECIMENOrdering Facility: [facility] Address: [address] [place], [place] [address] Performed By: #### A LLMG ####[facility] LABCLIA [id number] [place] [address] [place] HCO3 (Bld) [Moles/Vol] 15 mmol/L Low 22-26 [facility] Comment on above: Order Comment: Speci men Type: ARTERIAL BLOOD SPECIMENOrdering Facility: [facility] Address: [address] [place], [place] [address] Performed By: #### A LLMG ####[facility] LABCLIA [id number] [place] [address] [place] Hematocrit (Bld) [Volume fraction] 43.3 % Normal 39.0-51.0 [facility] Comment on above: Order Comment: Speci men Type: ARTERIAL BLOOD SPECIMENOrdering Facility: [facility] Address: [address] Performed By: #### A LLMG ####[facility] LABCLIA [id number] [address] [place] Hemoglobin (Bld) [Mass/Vol] 14.1 g/dL Normal 13.0-17.0 [facility] Comment on above: Order Comment: Speci men Type: ARTERIAL BLOOD SPECIMENOrdering Facility: [facility] Address: [address] [place], [place] [address] Performed By: #### A LLMG ####[facility] LABCLIA [id number] [place] [address] [place] Lactate [Moles/Vol] 1.4 mmol/L Normal 0.5-2.2 [facility] Comment on above: Order Comment: Speci men Type: ARTERIAL BLOOD SPECIMENOrdering Facility: [facility] Address: [address] [place], [place] [address] Performed By: #### A LLMG ####[facility] LABCLIA [id number] [place] [address] [place] Magnesium [Moles/Vol] 1.26 mmol/L High 0.45-0.60 [facility] Comment on above: Order Comment: Speci men Type: ARTERIAL BLOOD SPECIMENOrdering Facility: [facility] Address: [address] Performed By: #### A LLMG ####[facility] LABCLIA [id number] [place] [address] [place] Methemoglobin (Bld) [Mass fraction] 1.0 % Normal 0.0-1.5 [facility] Comment on above: Order Comment: Speci men Type: ARTERIAL BLOOD SPECIMENOrdering Facility: [facility] Address: [address] Performed By: #### A LLMG ####[facility] LABCLIA [id number] [place] [address] [place] Oxygen (Bld) [Partial pressure] 237 mm Hg High 85-95 [facility] Comment on above: Order Comment: Speci men Type: ARTERIAL BLOOD SPECIMENOrdering Facility: [facility] Address: [address] [place] [address] Performed By: #### A LLMG ####[facility] LABCLIA [id number] [place] [address] [place] Oxygen adjusted to patient's actual temperature (Bld) [Partial pressure] 237 mmHg High 85-95 [facility] Comment on above: Order Comment: Speci men Type: ARTERIAL BLOOD SPECIMENOrdering Facility: [facility] Address: [address] [place], [place] [address] Performed By: #### A LLMG ####[facility] LABCLIA [id number] [place] [address] [place] Oxyhemoglobin (BldA) [Mass fraction] 97 % Normal 95-98 [facility] Comment on above: Order Comment: Speci men Type: ARTERIAL BLOOD SPECIMENOrdering Facility: [facility] Address: [address] [place], [place] [address] Performed By: #### A LLMG ####[facility] LABCLIA [id number] [place] [address] [place] pH (Bld) 7.26 [pH] Low 7.35-7.45 [facility] Comment on above: Order Comment: Speci men Type: ARTERIAL BLOOD SPECIMENOrdering Facility: [facility] Address: [address] [place], [place] [address] Performed By: #### A LLMG ####[facility] LABCLIA [id number] [place] [address] [place] pH adjusted to patient's actual temperature (Bld) 7.26 Low 7.35-7.45 [facility] Comment on above: Order Comment: Speci men Type: ARTERIAL BLOOD SPECIMENOrdering Facility: [facility] Address: [address] Performed By: #### A LLMG ####[facility] LABCLIA [id number] [place] [address] [place] Potassium [Moles/Vol] 3.2 mmol/L Low 3.5-5.0 [facility] Comment on above: Order Comment: Speci men Type: ARTERIAL BLOOD SPECIMENOrdering Facility: [facility] Address: [address] Performed By: #### A LLMG ####[facility] LABIA [id number] [place] [address] [place] Sodium [Moles/Vol] 135 mmol/L Low 136-144 [facility] Comment on above: Order Comment: Speci men Type: ARTERIAL BLOOD SPECIMENOrdering Facility: [facility] Address: [address] Performed By: #### A LLMG ####[facility] LABIA [id number] [place] [address] [place] Base deficit (BldA) [Moles/Vol] -13 mmol/L Low -2-0 [facility] Comment on above: Order Comment: Speci men Type: ARTERIAL BLOOD SPECIMENOrdering Facility: [facility] Address: [address] Performed By: #### A LLMG ####[facility] LABIA [id number] [place] [address] [place] Calcium.ionized (Bld) [Mass/Vol] 1.13 mmol/L Normal 1.08-1.30 [facility] Comment on above: Order Comment: Speci men Type: ARTERIAL BLOOD SPECIMENOrdering Facility: [facility] Address: [address] Performed By: #### A LLMG ####[facility] LABCLIA [id number] [place] [address] [place] Calcium.ionized adjusted to pH 7.4 (BldA) [Moles/Vol] 1.02 mmol/L Low 1.08-1.30 [facility] Comment on above: Order Comment: Speci men Type: ARTERIAL BLOOD SPECIMENOrdering Facility: [facility] Address: [address] [place], [place] [address] Performed By: #### A LLMG ####[facility] LABIA [id number] [place] [address] [place] Carboxyhemoglobin (BldA) [Mass fraction] 0.6 % Normal 0.0-2.0 [facility] Comment on above: Order Comment: Speci men Type: ARTERIAL BLOOD SPECIMENOrdering Facility: [facility] Address: [address] [place], [place] [address] Result Comment: Carb oxyhemoglobin Reference Range for Smokers: 2.0-8.0% Performed By: #### A LLMG ####[facility] LABIA [id number] [place] [address] [place] CO2 (Bld) [Partial pressure] 36 mm Hg Normal 36-46 [facility] Comment on above: Order Comment: Speci men Type: ARTERIAL BLOOD SPECIMENOrdering Facility: [facility] Address: [address] [place], [place] [address] Performed By: #### A LLMG ####[facility] LABIA [id number] [place] [address] [place] CO2 [Moles/Vol] 15 mmol/L Low 22-28 [facility] Comment on above: Order Comment: Speci men Type: ARTERIAL BLOOD SPECIMENOrdering Facility: [facility] Address: [address] [place], [place] [address] Performed By: #### A LLMG ####[facility] LABCLIA [id number] [address] [place] CO2 adjusted to patient's actual temperature (Bld) [Partial pressure] 36 mmHg Normal 36-46 [facility] Comment on above: Order Comment: Speci men Type: ARTERIAL BLOOD SPECIMENOrdering Facility: [facility] Address: [address] [place] [address] Performed By: #### A LLMG ####[facility] LABCLIA [id number] [place] [address] [place] Glucose [Mass/Vol] 154 mg/dL High 60-105 [facility] Comment on above: Order Comment: Speci men Type: ARTERIAL BLOOD SPECIMENOrdering Facility: [facility] Address: [address] [place], [place] [address] Performed By: #### A LLMG ####[facility] LABCLIA [id number] [place] [address] [place] HCO3 (Bld) [Moles/Vol] 14 mmol/L Low 22-26 [facility] Comment on above: Order Comment: Speci men Type: ARTERIAL BLOOD SPECIMENOrdering Facility: [facility] Address: [address] [place], [place] [address] Performed By: #### A LLMG ####[facility] LABCLIA [id number] [address] [place] Hematocrit (Bld) [Volume fraction] 49.1 % Normal 39.0-51.0 [facility] Comment on above: Order Comment: Speci men Type: ARTERIAL BLOOD SPECIMENOrdering Facility: [facility] Address: [address] [place], [place] [address] Performed By: #### A LLMG ####[facility] LABCLIA [id number] [place] [address] [place] Hemoglobin (Bld) [Mass/Vol] 16.0 g/dL Normal 13.0-17.0 [facility] Comment on above: Order Comment: Speci men Type: ARTERIAL BLOOD SPECIMENOrdering Facility: [facility] Address: [address] Performed By: #### A LLMG ####[facility] LABCLIA [id number] [place] [address] [place] Lactate [Moles/Vol] 1.3 mmol/L Normal 0.5-2.2 [facility] Comment on above: Order Comment: Speci men Type: ARTERIAL BLOOD SPECIMENOrdering Facility: [facility] Address: [address] Performed By: #### A LLMG ####[facility] LABIA [id number] [place] [address] [place] Magnesium [Moles/Vol] 0.43 mmol/L Low 0.45-0.60 [facility] Comment on above: Order Comment: Speci men Type: ARTERIAL BLOOD SPECIMENOrdering Facility: [facility] Address: [address] [place], [place] [address] Performed By: #### A LLMG ####[facility] LABIA [id number] [place] [address] [place] Methemoglobin (Bld) [Mass fraction] 1.4 % Normal 0.0-1.5 [facility] Comment on above: Order Comment: Speci men Type: ARTERIAL BLOOD SPECIMENOrdering Facility: [facility] Address: [address] Performed By: #### A LLMG ####[facility] LABIA [id number] [place] [address] [place] Oxygen (Bld) [Partial pressure] 238 mm Hg High 85-95 [facility] Comment on above: Order Comment: Speci men Type: ARTERIAL BLOOD SPECIMENOrdering Facility: [facility] Address: [address] Performed By: #### A LLMG ####[facility] LABCLIA [id number] [place] [address] [place] Oxygen adjusted to patient's actual temperature (Bld) [Partial pressure] 238 mmHg High 85-95 [facility] Comment on above: Order Comment: Speci men Type: ARTERIAL BLOOD SPECIMENOrdering Facility: [facility] Address: [address] [place] [address] Performed By: #### A LLMG ####[facility] LABIA [id number] [place] [address] [place] Oxyhemoglobin (BldA) [Mass fraction] 97 % Normal 95-98 [facility] Comment on above: Order Comment: Speci men Type: ARTERIAL BLOOD SPECIMENOrdering Facility: [facility] Address: [address] [place] [address] Performed By: #### A LLMG ####[facility] LABIA [id number] [place] [address] [place] pH (Bld) 7.22 [pH] Low 7.35-7.45 [facility] Comment on above: Order Comment: Speci men Type: ARTERIAL BLOOD SPECIMENOrdering Facility: [facility] Address: [address] [place], [place] [address] Performed By: #### A LLMG ####[facility] LABIA [id number] [place] [address] [place] pH adjusted to patient's actual temperature (Bld) 7.22 Low 7.35-7.45 [facility] Comment on above: Order Comment: Speci men Type: ARTERIAL BLOOD SPECIMENOrdering Facility: [facility] Address: [address] [place], [place] [address] Performed By: #### A LLMG ####[facility] LABIA [id number] [place] [address] [place] Potassium [Moles/Vol] 3.3 mmol/L Low 3.5-5.0 [facility] Comment on above: Order Comment: Speci men Type: ARTERIAL BLOOD SPECIMENOrdering Facility: [facility] Address: [address] [place] [address] Performed By: #### A LLMG ####[facility] LABCLIA [id number] [place] [address] [place] Sodium [Moles/Vol] 132 mmol/L Low 136-144 [facility] Comment on above: Order Comment: Speci men Type: ARTERIAL BLOOD SPECIMENOrdering Facility: [facility] Address: [address] [place] [address] Performed By: #### A LLMG ####[facility] LABIA [id number] [address] [place] BRIEF OP NOTon 03-14-2023 BRIEF OP NOT Normal [facility] CBC panel Auto (Bld)on 03-14 Erythrocyte distribution width (RBC) [Ratio] 12.5 % Normal 11.5-15.0 [facility] Comment on above: Order Comment: Speci men Type: BLOOD SPECIMENOrdering Facility: [facility] Address: [address] Performed By: #### 5 8410-2 ####[facility] LABIA [id number] [place] [address] [place] Hematocrit (Bld) [Volume fraction] 26.5 % Low 39.0-51.0 [facility] Comment on above: Order Comment: Speci men Type: BLOOD SPECIMENOrdering Facility: [facility] Address: [address] Performed By: #### 5 8410-2 ####[facility] LABIA [id number] [place] [address] [place] Hemoglobin (Bld) [Mass/Vol] 8.9 g/dL Low 13.0-17.0 [facility] Comment on above: Order Comment: Speci men Type: BLOOD SPECIMENOrdering Facility: [facility] Address: [address] Performed By: #### 5 8410-2 ####[facility] LABIA [id number] [address] MCH (RBC) [Entitic mass] 28.3 pg Normal 26.0-34.0 [facility] Comment on above: Order Comment: Speci men Type: BLOOD SPECIMENOrdering Facility: [facility] Address: [address] Performed By: #### 5 8410-2 ####[facility] [id number] [address] [place] [facility] MCHC (RBC) [Mass/Vol] 33.6 g/dL Normal 30.5-36.0 [facility] Comment on above: Order Comment: Speci men Type: BLOOD SPECIMENOrdering Facility: [facility] Address: [address] [place], [place] [address] Performed By: #### 5 8410-2 ####[facility] [id number] [address] [place] [facility] MCV (RBC) [Entitic vol] 84.4 fL Normal 80.0-100.0 [facility] [facility] Comment on above: Order Comment: Speci men Type: BLOOD SPECIMENOrdering Facility: [facility] Address: [address] [place] [address] Performed By: #### 5 8410-2 ####[facility] [id number] [address] [place] [facility] Nucleated RBC (Bld) [#/Vol] 10*3/uL Normal <0.01 [facility] Comment on above: Order Comment: Speci men Type: BLOOD SPECIMENOrdering Facility: [facility] Address: [address] [place] [address] Performed By: #### 5 8410-2 ####[facility] LABCLIA [id number] [place] [address] [place] Platelet mean volume (Bld) [Entitic vol] 9.5 fL Normal 9.0-12.7 [facility] Comment on above: Order Comment: Speci men Type: BLOOD SPECIMENOrdering Facility: [facility] Address: [address] [place], [place] [address] Performed By: #### 5 8410-2 ####[facility] LABIA [id number] [place] [address] [place] Platelets (Bld) [#/Vol] 210 10*3/uL Normal 150-400 [facility] Comment on above: Order Comment: Speci men Type: BLOOD SPECIMENOrdering Facility: [facility] Address: [address] [place] [address] Performed By: #### 5 8410-2 ####[facility] LABIA [id number] [place] [address] [place] RBC (Bld) [#/Vol] 3.14 10*6/uL Low 4.20-6.00 [facility] Comment on above: Order Comment: Speci men Type: BLOOD SPECIMENOrdering Facility: [facility] Address: [address] [place], [place] [address] Performed By: #### 5 8410-2 ####[facility] LABIA [id number] [place] [address] [place] WBC (Bld) [#/Vol] 8.31 10*3/uL Normal 3.70-11.00 [facility] Comment on above: Order Comment: Speci men Type: BLOOD SPECIMENOrdering Facility: [facility] Address: [address] [place], [place] [address] Performed By: #### 5 8410-2 ####[facility] LABIA [id number] [place] [address] [place] CONSULT PROGon 03-14-2023 CONSULT PROG Normal [facility] CYSTATIN Con 03-14-2023 Cystatin C [Mass/Vol] 0.58 mg/L Low 0.61-0.95 [facility] Comment on above: Order Comment: Speci men Type: BLOOD SPECIMENOrdering Facility: [facility] Address: [address] [place] [address] Performed By: #### 1 9123-9, 62077-4, CYSTC, HSTNT, 277- ####[facility] LABCLIA [id number] [address] [place] CYSTATIN C EGFR 141 mL/min/1.73m??? Normal >=60 [facility] Comment on above: Order Comment: [facility] Type: BLOOD SPECIMENOrdering Facility: [facility] Address: [address] [place] [address] Result Comment: Mary mated Glomerular Filtration Rate [...] actual GFR. Performed By: #### 1 9123-9, 02344-0, CYSTC, HSTNT, 2777-1 ####[facility] LABCLIA [id number] [place] [address] [place] Comprehensive metabolic 2000 panelon 03-14-2023 Albumin [Mass/Vol] 4.5 g/dL Normal 3.9-4.9 [facility] Comment on above: Order Comment: Speci men Type: BLOOD SPECIMENOrdering Facility: [facility] Address: [address] [place] [address] Performed By: #### 2 4323-8, 69554-4 ####[facility] LABCLIA [id number] [place] [address] [place] ALP [Catalytic activity/Vol] 25 U/L Low 38-113 [facility] Comment on above: Order Comment: Speci men Type: BLOOD SPECIMENOrdering Facility: [facility] Address: [address] [place] [address] Performed By: #### 2 4323-8, 34766-5 ####[facility] LABCLIA [id number] [place] [address] [place] ALT [Catalytic activity/Vol] 29 U/L Normal 10-54 [facility] Comment on above: Order Comment: Speci men Type: BLOOD SPECIMENOrdering Facility: [facility] Address: [address] [place] [address] Performed By: #### 2 4323-8, 13823-8 ####[facility] LABCLIA [id number] [place] [address] [place] Anion gap [Moles/Vol] 19 mmol/L High 9-18 [facility] Comment on above: Order Comment: Speci men Type: BLOOD SPECIMENOrdering Facility: [facility] Address: [address] [place] [address] Performed By: #### 2 4323-8, 01887-9 ####[facility] LABCLIA [id number] [address] [place] AST [Catalytic activity/Vol] 44 U/L High 14-40 [facility] Comment on above: Order Comment: Speci men Type: BLOOD SPECIMENOrdering Facility: [facility] Address: [address] [place], [place] [address] Performed By: #### 2 4323-8, 65750-4 ####[facility] LABCLIA [id number] [place] [address] [place] Bilirubin [Mass/Vol] 2.7 mg/dL High 0.2-1.3 [facility] Comment on above: Order Comment: Speci men Type: BLOOD SPECIMENOrdering Facility: [facility] Address: [address] [place] [address] Performed By: #### 2 4323-8, 35568-0 ####[facility] LABCLIA [id number] [place] [address] [place] Calcium [Mass/Vol] 8.4 mg/dL Low 8.5-10.2 [facility] Comment on above: Order Comment: Speci men Type: BLOOD SPECIMENOrdering Facility: [facility] Address: [address] [place] [address] Performed By: #### 2 4323-8, 86215-1 ####[facility] LABCLIA [id number] [place] [address] [place] Chloride [Moles/Vol] 109 mmol/L High 97-105 [facility] Comment on above: Order Comment: Speci men Type: BLOOD SPECIMENOrdering Facility: [facility] Address: [address] [place] [address] Performed By: #### 2 4323-8, 50047-9 ####[facility] LABCLIA [id number] [place] [address] [place] CO2 [Moles/Vol] 18 mmol/L Low 22-30 [facility] Comment on above: Order Comment: Speci men Type: BLOOD SPECIMENOrdering Facility: [facility] Address: [address] Performed By: #### 2 4323-8, 90769-6 ####[facility] LABCLIA [id number] [place] [address] [place] Creatinine [Mass/Vol] 0.48 mg/dL Low 0.73-1.22 [facility] Comment on above: Order Comment: Speci men Type: BLOOD SPECIMENOrdering Facility: [facility] Address: [address] Performed By: #### 2 4323-8, 11877-6 ####[facility] LABCLIA [id number] [place] [address] [place] ESTIMATED GLOMERULAR FILTRATION RATE 147 mL/min/1.73m??? Normal >=60 [facility] Comment on above: Order Comment: Frantz thurman Type: BLOOD SPECIMENOrdering Facility: [facility] Address: [address] [place] [address] Result Comment: Mary mated Glomerular Filtration Rate [...] actual GFR. Performed By: #### 2 4323-8, 56634-9 ####[facility] LABIA [id number] [place] [address] [place] Glucose [Mass/Vol] 172 mg/dL High 74-99 [facility] Comment on above: Order Comment: Frantz thurman Type: BLOOD SPECIMENOrdering Facility: [facility] Address: [address] [place] [address] Result Comment: The [place] [employer] (ADA) provides guidance for cutoff [...] Standards of Medical Care in Diabetes 2016, [place] [employer]. Diabetes Care. 2016.39(Suppl 1). Performed By: #### 2 4323-8, 48924-2 ####[facility] LABCLIA [id number] [place] [address] [place] Potassium [Moles/Vol] 3.9 mmol/L Normal 3.7-5.1 [facility] Comment on above: Order Comment: Speci men Type: BLOOD SPECIMENOrdering Facility: [facility] Address: [address] [place] [address] Performed By: #### 2 4323-8, 65410-8 ####[facility] LABCLIA [id number] [place] [address] [place] Protein [Mass/Vol] 5.1 g/dL Low 6.3-8.0 [facility] Comment on above: Order Comment: Speci men Type: BLOOD SPECIMENOrdering Facility: [facility] Address: [address] [place] [address] Performed By: #### 2 4323-8, 91464-1 ####[facility] LABIA [id number] [place] [address] [place] Sodium [Moles/Vol] 146 mmol/L High 136-144 [facility] Comment on above: Order Comment: Speci men Type: BLOOD SPECIMENOrdering Facility: [facility] Address: [address] [place], [place] [address] Performed By: #### 2 4323-8, 91417-9 ####[facility] LABIA [id number] [place] [address] [place] Urea nitrogen [Mass/Vol] 9 mg/dL Normal 9-24 [facility] Comment on above: Order Comment: Speci men Type: BLOOD SPECIMENOrdering Facility: [facility] Address: [address] [place], [place] [address] Performed By: #### 2 4323-8, 42296-3 ####[facility] LABCLIA [id number] [place] [address] [place] HIGH SENSITIVITY TROPONIN To n 03-14-2023 HIGH SENSITIVITY OMAR 13 ng/L High <12 [facility] Comment on above: Order Comment: Speci men Type: BLOOD SPECIMENOrdering Facility: [facility] Address: [address] [place] [address] Result Comment: When assessing risk for acute [...] day MACE. Performed By: #### 1 9123-9, 33561-5, CYSTC, HSTNT, 2777-1 ####[facility] LABCLIA [id number] [place] [address] [place] HISTORY PHYSICALon HISTORY PHYSICAL Normal [facility] Magnesium [facility] 03-14 Magnesium [Mass/Vol] 1.7 mg/dL Normal 1.7-2.3 [facility] Comment on above: Order Comment: Speci men Type: BLOOD SPECIMENOrdering Facility: [facility] Address: [address] [place] [address] Performed By: #### 1 9123-9, 11427-5, CYSTC, HSTNT, 2777-1 ####[facility] LABCLIA [id number] [address] [place] [facility] Natriuretic peptide.B prohormone N-Terminal [Mass/Vol] 431 pg/mL High <125 [facility] Comment on above: Order Comment: Rosalindi men Type: BLOOD SPECIMENOrdering Facility: [facility] Address: [address] [place] [address] Performed By: #### 1 9123-9, 69060-1, CYSTC, HSTNT, 2777-1 ####[facility] LABCLIA [id number] [place] [address] [place] OPERATIVE NOon 03-14-2023 OPERATIVE NO Normal [facility] Phosphate SerPl-mCncon 03-14 Phosphate [Mass/Vol] 2.9 mg/dL Normal 2.7-4.8 [facility] Comment on above: Order Comment: Speci men Type: BLOOD SPECIMENOrdering Facility: [facility] Address: [address] [place] [address] Performed By: #### 1 9123-9, 45642-7, CYSTC, HSTNT, 2777-1 ####[facility] LABCLIA [id number] [address] [place] Procalcitonin SerPl-ncon 0 03-14-2023 Procalcitonin [Mass/Vol] 0.52 ng/mL High <0.09 [facility] Comment on above: Order Comment: Speci men Type: BLOOD SPECIMENOrdering Facility: [facility] Address: [address] [place] [address] Result Comment: For a guided interpretation of test results, please visit the Change in Procalcitonin Calculator, [email or web address]. Performed By: #### 2 4323-8, 19958-4 ####[facility] LABCLIA [id number] [address] [place] STAPH AUREUS PCRon S. aureus and MRSA panel MARY+probe (Nose) Normal Negative [facility] Comment on above: Order Comment: Speci men Type: SWAB OF INTERNAL NOSEOrdering Facility: [facility] Address: [address] [place] [address] Result Comment: Nega tive for Staphylococcus aureus by PCR.Negative for MRSA by PCR Performed By: #### S APCR ####[facility] LABCLIA [id number] [place] [address] [place] SURGICAL PATHOLOGYon 023 CASE REPORT Normal [facility] Comment on above: Order Comment: Speci men Type: TISSUE SPECIMENOrdering Facility: [facility] Address: [address] [place], [place] [id number] Result Comment: Surg ical Pathology Report Case: [id number] Provider: Marifer Dowd MD Collected: 03/14/2023 10:37 AMOrdering Location: Admitting Received: 03/14/2023 06:29 PMPathologist: Santino Anthony MD, PhDSpecimens: A) - COLOSTOMY B) - GALLBLADDER C) - COLON RESECTION, COLON Performed By: #### S ####[facility] LABCLIA [id number] [address] CLINICAL HISTORY Normal [facility] Comment on above: Order Comment: Speci men Type: TISSUE SPECIMENOrdering Facility: [facility] Address: [address] [place], [place] [address] Result Comment: Pre- op diagnosis:Preoperative examination [Z01.818]Parastomal hernia without obstruction or gangrene [K43.5] Performed By: #### S ####[facility] LABCLIA [id number] [address] FINAL DIAGNOSIS Normal [facility] Comment on above: Order Comment: Speci men Type: TISSUE SPECIMENOrdering Facility: [facility] Address: [address] [place], [place] [id number] Result Comment: A. C olostomy, takedown:- Colocutaneous anastomosis with foci of mucosal erosion, and reactive changes, consistent with ostomy site.B. Gallbladder, cholecystectomy:- Gallbladder with no diagnostic abnormality.C. Colon, resection:- Portion of colon with a single inflammatory-type polyp, patchy serositis and rare adhesions.- Serositis extends to one of the resection margins.- Two reactive lymph nodes. Performed By: #### S ####[facility] LABCLIA [id number] [address] FINAL PERFORMING LAB Normal [facility] Comment on above: Order Comment: Speci men Type: TISSUE SPECIMENOrdering Facility: [facility] Address: [address] [place] [place] [address] Result Comment: Diag nostic interpretation performed at [facility], [address] [address] CLIA# [id number] Director: Dick Goodman M.D. Performed By: #### S ####[facility] LABCLIA [id number] [facility] [id number] GROSS DESCRIPTION A. COLOSTOMY Normal [facility] Comment on above: Order Comment: Speci men Type: TISSUE SPECIMENOrdering Facility: [facility] Address: [address] [place] [place] [address] Result Comment: Rece ived in formalin labeled colostomy is a 2.8 x 2.5 x 1.8 cm ostomy specimen lined by thin rim of yang skin. The ostomy site is brown and unremarkable with no defects or granularity. Sectioning reveals unremarkable cut surfaces. [employer] sections are submitted in one cassette.B. GALLBLADDERReceived [...] No polyps or discrete lesions are identified. [employer] sections to include cystic duct margin are [...] of invasion. The remaining bowel is unremarkable. [employer] sections are submitted as follows: C1 margins, C2 irregular polypoid lesion entirely submitted, C3 mesenteric margin shaved and two probable lymph nodes.Gross examination performed at [facility], [address] [address] CLIA# [id number] 03/15/23 Performed By: #### S ####[facility] LABIA [id number] [place] [address] [place] XR ABDOMEN 1V SUPINEon 03-14 XR ABDOMEN 1V SUPINE Normal [facility] XR CHEST 1V FRONTAL PORTon 0 03-14-2023 XR CHEST 1V FRONTAL PORT Normal [facility] CNPNon 03-13-2023 CNPN Normal [facility] CBC W Auto Differential pane l (Bld)on 02-16-2023 Basophils (Bld) [#/Vol] 0.04 10*3/uL Normal <0.11 [facility] Comment on above: Order Comment: Speci men Type: BLOOD SPECIMENOrdering Facility: [facility] Address: [address] [place] [address] Performed By: #### 5 7021-8 ####[facility] [id number] [address] [place] Basophils/100 WBC (Bld) 0.5 % Normal [facility] Comment on above: Order Comment: Speci men Type: BLOOD SPECIMENOrdering Facility: [facility] Address: [address] Performed By: #### 5 7021-8 ####[facility] [id number] [place] [address] [place] Differential cell count method Nom (Bld) Auto Normal [facility] Comment on above: Order Comment: Speci men Type: BLOOD SPECIMENOrdering Facility: [facility] Address: [address] [place] [address] Performed By: #### 5 7021-8 ####[facility] LABCLIA [id number] [place] [address] [place] Eosinophils (Bld) [#/Vol] 0.32 10*3/uL Normal <0.46 [facility] Comment on above: Order Comment: Speci men Type: BLOOD SPECIMENOrdering Facility: [facility] Address: [address] [place], [place] [address] Performed By: #### 5 7021-8 ####[facility] LABCLIA [id number] [place] [address] [place] Eosinophils/100 WBC (Bld) 4.2 % Normal [facility] Comment on above: Order Comment: Speci men Type: BLOOD SPECIMENOrdering Facility: [facility] Address: [address] [place], [place] [address] Performed By: #### 5 7021-8 ####[facility] LABIA [id number] [address] [place] Erythrocyte distribution width (RBC) [Ratio] 12.7 % Normal 11.5-15.0 [facility] Comment on above: Order Comment: Speci men Type: BLOOD SPECIMENOrdering Facility: [facility] Address: [address] [place], [place] [address] Performed By: #### 5 7021-8 ####[facility] LABCLIA [id number] [place] [address] [place] Hematocrit (Bld) [Volume fraction] 47.2 % Normal 39.0-51.0 [facility] Comment on above: Order Comment: Speci men Type: BLOOD SPECIMENOrdering Facility: [facility] Address: [address] [place], [place] [address] Performed By: #### 5 7021-8 ####[facility] LABIA [id number] [place] [address] [place] Hemoglobin (Bld) [Mass/Vol] 14.9 g/dL Normal 13.0-17.0 [facility] Comment on above: Order Comment: Speci men Type: BLOOD SPECIMENOrdering Facility: [facility] Address: [address] [place] [address] Performed By: #### 5 7021-8 ####[facility] LABCLIA [id number] [place] [address] [place] Immature granulocytes (Bld) [#/Vol] 10*3/uL Normal <0.10 [facility] Comment on above: Order Comment: Speci men Type: BLOOD SPECIMENOrdering Facility: [facility] Address: [address] [place] [address] Performed By: #### 5 7021-8 ####[facility] LABCLIA [id number] [place] [address] [place] Immature granulocytes/100 WBC (Bld) 0.3 % Normal [facility] Comment on above: Order Comment: Speci men Type: BLOOD SPECIMENOrdering Facility: [facility] Address: [address] [place], [place] [address] Performed By: #### 5 7021-8 ####[facility] LABCLIA [id number] [place] [address] [place] Lymphocytes (Bld) [#/Vol] 2.37 10*3/uL Normal 1.00-4.00 [facility] Comment on above: Order Comment: Speci men Type: BLOOD SPECIMENOrdering Facility: [facility] Address: [address] Performed By: #### 5 7021-8 ####[facility] LABCLIA [id number] [place] [address] [place] Lymphocytes/100 WBC (Bld) 31.2 % Normal [facility] Comment on above: Order Comment: Speci men Type: BLOOD SPECIMENOrdering Facility: [facility] Address: [address] [place] [address] Performed By: #### 5 7021-8 ####[facility] LABIA [id number] [address] MCH (RBC) [Entitic mass] 27.3 pg Normal 26.0-34.0 [facility] Comment on above: Order Comment: Speci men Type: BLOOD SPECIMENOrdering Facility: [facility] Address: [address] Performed By: #### 5 7021-8 ####[facility] LABIA [id number] [address] [place] MCHC (RBC) [Mass/Vol] 31.6 g/dL Normal 30.5-36.0 [facility] Comment on above: Order Comment: Speci men Type: BLOOD SPECIMENOrdering Facility: [facility] Address: [address] Performed By: #### 5 7021-8 ####[facility] LABIA [id number] [address] STATES [facility] MCV (RBC) [Entitic vol] 86.6 fL Normal 80.0-100.0 [facility] Comment on above: Order Comment: Speci men Type: BLOOD SPECIMENOrdering Facility: [facility] Address: [address] Performed By: #### 5 7021-8 ####[facility] LABIA [id number] [place] [address] [place] Monocytes (Bld) [#/Vol] 0.59 10*3/uL Normal <0.87 [facility] Comment on above: Order Comment: Speci men Type: BLOOD SPECIMENOrdering Facility: [facility] Address: [address] Performed By: #### 5 7021-8 ####[facility] LABIA [id number] [place] [address] [place] Monocytes/100 WBC (Bld) 7.8 % Normal [facility] Comment on above: Order Comment: Speci men Type: BLOOD SPECIMENOrdering Facility: [facility] Address: [address] [place] [address] Performed By: #### 5 7021-8 ####[facility] LABCLIA [id number] [place] [address] [place] Neutrophils (Bld) [#/Vol] 4.25 10*3/uL Normal 1.45-7.50 [facility] Comment on above: Order Comment: Speci men Type: BLOOD SPECIMENOrdering Facility: [facility] Address: [address] [place] [address] Performed By: #### 5 7021-8 ####[facility] LABCLIA [id number] [place] [address] [place] Neutrophils/100 WBC (Bld) 56.0 % Normal [facility] Comment on above: Order Comment: Speci men Type: BLOOD SPECIMENOrdering Facility: [facility] Address: [address] [place], [place] [address] Performed By: #### 5 7021-8 ####[facility] LABCLIA [id number] [place] [address] [place] Nucleated RBC (Bld) [#/Vol] 10*3/uL Normal <0.01 [facility] Comment on above: Order Comment: Speci men Type: BLOOD SPECIMENOrdering Facility: [facility] Address: [address] [place], [place] [address] Performed By: #### 5 7021-8 ####[facility] LABCLIA [id number] [place] [address] [place] Nucleated RBC/100 WBC (Bld) [Ratio] 0.0 /100 WBC Normal [facility] Comment on above: Order Comment: Speci men Type: BLOOD SPECIMENOrdering Facility: [facility] Address: [address] Performed By: #### 5 7021-8 ####[facility] LABIA [id number] [place] [address] [place] Platelet mean volume (Bld) [Entitic vol] 9.2 fL Normal 9.0-12.7 [facility] Comment on above: Order Comment: Speci men Type: BLOOD SPECIMENOrdering Facility: [facility] Address: [address] [place], [place] [address] Performed By: #### 5 7021-8 ####[facility] LABIA [id number] [place] [address] [place] Platelets (Bld) [#/Vol] 351 10*3/uL Normal 150-400 [facility] Comment on above: Order Comment: Speci men Type: BLOOD SPECIMENOrdering Facility: [facility] Address: [address] [place], [place] [address] Performed By: #### 5 7021-8 ####[facility] LABIA [id number] [place] [address] [place] RBC (Bld) [#/Vol] 5.45 10*6/uL Normal 4.20-6.00 [facility] Comment on above: Order Comment: Speci men Type: BLOOD SPECIMENOrdering Facility: [facility] Address: [address] [place], [place] [address] Performed By: #### 5 7021-8 ####[facility] LABIA [id number] [place] [address] [place] WBC (Bld) [#/Vol] 7.59 10*3/uL Normal 3.70-11.00 [facility] Comment on above: Order Comment: Speci men Type: BLOOD SPECIMENOrdering Facility: [facility] Address: [address] [place], [place] [address] Performed By: #### 5 7021-8 ####[facility] LABCLIA [id number] [place] [address] [place] CNOVon 02-16-2023 CNOV Normal [facility] Comprehensive metabolic 2000 panelon 02-16-2023 Albumin [Mass/Vol] 4.7 g/dL Normal 3.9-4.9 [facility] Comment on above: Order Comment: Speci men Type: BLOOD SPECIMENOrdering Facility: [facility] Address: [address] Performed By: #### 2 4323-8 ####[facility] LABCLIA [id number] [place] [address] [place] ALP [Catalytic activity/Vol] 85 U/L Normal 38-113 [facility] Comment on above: Order Comment: Speci men Type: BLOOD SPECIMENOrdering Facility: [facility] Address: [address] [place], [place] [address] Performed By: #### 2 4323-8 ####[facility] LABCLIA [id number] [place] [address] [place] ALT [Catalytic activity/Vol] 18 U/L Normal 10-54 [facility] Comment on above: Order Comment: Speci men Type: BLOOD SPECIMENOrdering Facility: [facility] Address: [address] Performed By: #### 2 4323-8 ####[facility] LABCLIA [id number] [place] [address] [place] Anion gap [Moles/Vol] 10 mmol/L Normal 9-18 [facility] Comment on above: Order Comment: Speci men Type: BLOOD SPECIMENOrdering Facility: [facility] Address: [address] Performed By: #### 2 4323-8 ####[facility] LABCLIA [id number] [place] [address] [place] AST [Catalytic activity/Vol] 17 U/L Normal 14-40 [facility] Comment on above: Order Comment: Speci men Type: BLOOD SPECIMENOrdering Facility: [facility] Address: [address] [place] [address] Performed By: #### 2 4323-8 ####[facility] LABCLIA [id number] [place] [address] [place] Bilirubin [Mass/Vol] 0.3 mg/dL Normal 0.2-1.3 [facility] Comment on above: Order Comment: Speci men Type: BLOOD SPECIMENOrdering Facility: [facility] Address: [address] [place] [address] Performed By: #### 2 4323-8 ####[facility] LABCLIA [id number] [place] [address] [place] Calcium [Mass/Vol] 9.7 mg/dL Normal 8.5-10.2 [facility] Comment on above: Order Comment: Speci men Type: BLOOD SPECIMENOrdering Facility: [facility] Address: [address] [place], [place] [address] Performed By: #### 2 4323-8 ####[facility] LABCLIA [id number] [place] [address] [place] Chloride [Moles/Vol] 100 mmol/L Normal 97-105 [facility] Comment on above: Order Comment: Speci men Type: BLOOD SPECIMENOrdering Facility: [facility] Address: [address] [place], [place] [address] Performed By: #### 2 4323-8 ####[facility] LABCLIA [id number] [place] [address] [place] CO2 [Moles/Vol] 27 mmol/L Normal 22-30 [facility] Comment on above: Order Comment: Speci men Type: BLOOD SPECIMENOrdering Facility: [facility] Address: [address] [address] Performed By: #### 2 4323-8 ####[facility] LABIA [id number] [place] [address] [place] Creatinine [Mass/Vol] 0.44 mg/dL Low 0.73-1.22 [facility] Comment on above: Order Comment: Frantz men Type: BLOOD SPECIMENOrdering Facility: [facility] Address: [address] [address] Performed By: #### 2 4323-8 ####[facility] LABIA [id number] [place] [address] [place] GFR/1.73 sq M.predicted among non-blacks MDRD (S/P/Bld) [Vol rate/Area] mL/min/{1.73_m2} Normal >=60 [facility] Comment on above: Order Comment: Frantz men Type: BLOOD SPECIMENOrdering Facility: [facility] Address: [address] [address] Result Comment: Mary mated Glomerular Filtration Rate [...] actual GFR. Performed By: #### 2 4323-8 ####[facility] LABIA [id number] [place] [address] [place] Glucose [Mass/Vol] 72 mg/dL Low 74-99 [facility] Comment on above: Order Comment: Frantz thurman Type: BLOOD SPECIMENOrdering Facility: [facility] Address: [address] [address] Result Comment: The [place] [employer] (ADA) provides guidance for cutoff [...] Standards of Medical Care in Diabetes 2016, [place] [employer]. Diabetes Care. 2016.39(Suppl 1). Performed By: #### 2 4323-8 ####[facility] LABCLIA [id number] [place] [address] [place] Potassium [Moles/Vol] 4.2 mmol/L Normal 3.7-5.1 [facility] Comment on above: Order Comment: Speci men Type: BLOOD SPECIMENOrdering Facility: [facility] Address: [address] [place] [address] Performed By: #### 2 4323-8 ####[facility] LABIA [id number] [place] [address] [place] Protein [Mass/Vol] 8.2 g/dL High 6.3-8.0 [facility] Comment on above: Order Comment: Rosalindi cuca Type: BLOOD SPECIMENOrdering Facility: [facility] Address: [address] [address] Performed By: #### 2 4323-8 ####[facility] LABCLIA [id number] [place] [address] [place] Sodium [Moles/Vol] 137 mmol/L Normal 136-144 [facility] Comment on above: Order Comment: Speci men Type: BLOOD SPECIMENOrdering Facility: [facility] Address: [address] [address] Performed By: #### 2 4323-8 ####[facility] LABIA [id number] [place] [address] [place] Urea nitrogen [Mass/Vol] 10 mg/dL Normal 9-24 [facility] Comment on above: Order Comment: Frantz thurman Type: BLOOD SPECIMENOrdering Facility: [facility] Address: [address] [place] [address] Performed By: #### 2 4323-8 ####[facility] LABCLIA [id number] [address] [place] ECG COMPLETEon 02-16-2023 ECG COMPLETE Normal [facility] HISTORY PHYSICALon HISTORY PHYSICAL Normal [facility] PT panel Coag (PPP)on 2022 INR Coag (PPP) [Relative time] 1.0 {INR} Normal 0.9-1.3 [facility] Comment on above: Order Comment: Frantz thurman Type: BLOOD SPECIMENOrdering Facility: [facility] Address: [address] [place] [address] Result Comment: Gale min K Antagonist (VKA) Therapeutic Range: INR 2 to 3 (Target INR of 2.5)Note: For patients treated with VKA drugs, such as warfarin, the [place] [employer] 2012 Guideline recommends [...] 70: 252-289 Performed By: #### 1 4979-9, 15113-1 ####[facility] LABCLIA [id number] [address] [place] PT Coag (PPP) [Time] 10.6 s Normal 9.7-13.0 [facility] Comment on above: Order Comment: Speci men Type: BLOOD SPECIMENOrdering Facility: [facility] Address: [address] [place] [address] Performed By: #### 1 4979-9, 60805-9 ####[facility] LABCLIA [id number] [place] [address] [place] [facility] TYPE AND SCREEN,30 DAYon ABO A Normal [facility] Comment on above: Order Comment: Speci men Type: BLOOD SPECIMENOrdering Facility: [facility] Address: [address] [place] [address] Performed By: #### T SCR30 ####CC [facility] BLOOD BANKIA [id number] [address] HISTORICAL AB SCR STATUS Negative Normal [facility] Comment on above: Order Comment: Speci men Type: BLOOD SPECIMENOrdering Facility: [facility] Address: [address] [place] [address] Performed By: #### T SCR30 ####[facility] BLOOD BANKCLIA [id number] [address] Rh Nom (Bld) Positive Normal [facility] Comment on above: Order Comment: Speci men Type: BLOOD SPECIMENOrdering Facility: [facility] Address: [address] [place], [place] [address] Performed By: #### T SCR30 ####[facility] BLOOD BANKCLIA [id number] [address] [place] aPTT PPPon 02-16-2023 aPTT Coag (PPP) [Time] 29.6 s Normal 23.0-32.4 [facility] Comment on above: Order Comment: Speci men Type: BLOOD SPECIMENOrdering Facility: [facility] Address: [address] [place], [place] [address] Performed By: #### 1 4979-9, 82579-6 ####[facility] LABCLIA [id number] [place] [id number] [place] CNPNon 02-03-2023 CNPN Normal [facility] CNPNon 02-02-2023 CNPN Normal [facility] CNOVon 12-19-2022 CNOV Normal [facility] CNPNon 11-29-2022 CNPN Normal [facility] US THYROIDon 11-04-2022 US THYROID ORIGINAL EXAMINATION: [...] 11/04/2022 11:25:24 AM Ordering Provider: NIKITA Bailey [facility] ([place]) .Auto Diffon 11-02-2022 Basophil, Absolute 0.0 10 3/mcL Normal 0.0-0.2 [facility] ([place]) Comment on above: Performed By: #### A DIFF, A1C, ANEU, FT3, FT4, CBC, TSH #### [place] [address] [address] Basophils/100 WBC (Bld) 0.5 % Normal 0.0-2.5 [facility] ([place]) Comment on above: Performed By: #### A DIFF, A1C, ANEU, FT3, FT4, CBC, TSH #### [address] [address] Eosinophil, Absolute 0.2 10 3/mcL Normal 0.0-0.4 [facility] ([place]) Comment on above: Performed By: #### A DIFF, A1C, ANEU, FT3, FT4, CBC, TSH #### [address] [address] Eosinophils/100 WBC (Bld) 2.4 % Normal 0.0-7.0 [facility] ([place]) Comment on above: Performed By: #### A DIFF, A1C, ANEU, FT3, FT4, CBC, TSH #### [address] [address] Lymphocyte, Absolute 2.6 10 3/mcL Normal 0.8-3.9 [facility] ([place] Comment on above: Performed By: #### A DIFF, A1C, ANEU, FT3, FT4, CBC, TSH #### [address] [address] Lymphocytes/100 WBC (Bld) 28.8 % Normal 10.0-50.0 [facility] ([place] Comment on above: Performed By: #### A DIFF, A1C, ANEU, FT3, FT4, CBC, TSH #### [address] [address] Monocyte, Absolute 0.6 10 3/mcL Normal 0.2-1.0 [facility] ([place]) Comment on above: Performed By: #### A DIFF, A1C, ANEU, FT3, FT4, CBC, TSH #### [address] [address] Monocytes/100 WBC (Bld) 6.6 % Normal 1.7-13.0 [facility] ([place] Comment on above: Performed By: #### A DIFF, A1C, ANEU, FT3, FT4, CBC, TSH #### [address] [address] Neutrophils/100 WBC (Bld) 61.7 % Normal 37.0-80.0 [facility] ([place]) Comment on above: Performed By: #### A DIFF, A1C, ANEU, FT3, FT4, CBC, TSH #### [place] [address] .NEUABSon 11-02-2022 Neutrophil, Absolute 5.5 10 3/mcL Normal 2.9-6.2 [facility] ([place] Comment on above: Performed By: #### A DIFF, A1C, ANEU, FT3, FT4, CBC, TSH #### [place] [address] A1Con 11-02-2022 HbA1c (Bld) [Mass fraction] 4.9 % Normal 4.3-6.4 [facility] [place] Comment on above: Performed By: #### A DIFF, A1C, ANEU, FT3, FT4, CBC, TSH #### [place] [address] CBCon 11-02-2022 Erythrocyte distribution width (RBC) [Ratio] 13.4 % Normal 11.5-14.5 [facility] [place] Comment on above: Performed By: #### A DIFF, A1C, ANEU, FT3, FT4, CBC, TSH #### [place] [address] Hematocrit (Bld) [Volume fraction] 46.5 % Normal 42.0-52.0 [facility] [place] Comment on above: Performed By: #### A DIFF, A1C, ANEU, FT3, FT4, CBC, TSH #### [place] [address] Hgb 15.6 G/dL Normal 14.0-18.0 [facility] ([place] Comment on above: Performed By: #### A DIFF, A1C, ANEU, FT3, FT4, CBC, TSH #### [place] [id number] MCH (RBC) [Entitic mass] 27.6 pg Normal 27.0-31.2 [facility] [place] Comment on above: Performed By: #### A DIFF, A1C, ANEU, FT3, FT4, CBC, TSH #### [address] [address] MCHC 33.5 G/dL Normal 31.8-35.4 [facility] [place] Comment on above: Performed By: #### A DIFF, A1C, ANEU, FT3, FT4, CBC, TSH #### [address] [address] MCV (RBC) [Entitic vol] 82.4 fL Normal 80.0-94.0 [facility] [place] Comment on above: Performed By: #### A DIFF, A1C, ANEU, FT3, FT4, CBC, TSH #### [address] [address] Platelet 356 10 3/mcL Normal 130-400 [facility] [place] Comment on above: Performed By: #### A DIFF, A1C, ANEU, FT3, FT4, CBC, TSH #### [address] [address] Platelet mean volume (Bld) [Entitic vol] 7.2 fL Low 7.4-10.4 [facility] [place] Comment on above: Performed By: #### A DIFF, A1C, ANEU, FT3, FT4, CBC, TSH #### [address] [address] RBC 5.65 10 6/mcL Normal 4.04-6.13 [facility] [place] Comment on above: Performed By: #### A DIFF, A1C, ANEU, FT3, FT4, CBC, TSH #### [address] [address] WBC 8.9 10 3/mcL Normal 4.6-10.8 [facility] [place] Comment on above: Performed By: #### A DIFF, A1C, ANEU, FT3, FT4, CBC, TSH #### [address] [address] FT3on 11-02-2022 Free T3 [Mass/Vol] 3.47 pg/mL Normal 2.30-4.00 [facility] ([place]) Comment on above: Performed By: #### A DIFF, A1C, ANEU, FT3, FT4, CBC, TSH #### [address] [place] [place], [place] [address] FT4on 11-02-2022 Free T4 [Mass/Vol] 0.96 ng/dL Normal 0.76-1.46 [facility] ([place]) Comment on above: Performed By: #### A DIFF, A1C, ANEU, FT3, FT4, CBC, TSH #### [address] [place] [address] [place], [place] [address] LABORATORYOrdered By: Sony Mckeon on 11-02-2022 Basophil, [...] 11-02-2022 TSH Qn 1.86 m[IU]/L Normal 0.36-3.74 [facility] ([place]) Comment on above: Performed By: #### A DIFF, A1C, ANEU, FT3, FT4, CBC, TSH #### [address] [address] CNOVon 08-01-2022 CNOV Normal [facility] HISTORY PHYSICALon HISTORY PHYSICAL Normal [facility] Progress Noteon 07-05-2022 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 He is accompanied by his father and mother. No spanish language lecturer was used. Past Hx: Marcos is a [...] having some stone issues; had surgery at [facility] for stones ---Emptying bag everyday N/V - [...] MMK performed by Chris Cobb MD at [facility] OR ADENOIDECTOMY BLADDER SURGERY N/A 10/03/2016 VESICOLOTHOTOMY possible lithoclast performed by Chirs Cobb MD at [facility] OR COLOSTOMY N/A 01/29/2019 COLOSTOMY performed by Perry Sheikh MD at [facility] OR GASTROSTOMY N/A 01/29/2019 ENDOSCOPIC GASTROSTOMY PERCUTANEOUS performed by Perry Sheikh MD at [facility] OR GASTROSTOMY 05/16/2019 gastrostomy tube removal performed by Perry Sheikh MD at [facility] OR HERNIA REPAIR HIP FUSION Right 05/16/2019 RIGHT HIP DISARTICULATION VERSUS CASTLE PROXIMAL FEMORAL RESECTION AND FLAP COVERAGE performed by Cruz Ramires MD at [facility] OR KIDNEY STONE SURGERY N/A 02/15/2018 CYSTOSCOPY WITH LITHOLAPAXY/VESICOLITHO TRIPSY/CYSTOLITHOPAXY & HOLMIUM LASER performed by Chris Cobb MD at [facility] OR LAMINECTOMY 05/24/2005 Untethering of spinal cord LAPAROTOMY N/A 11/04/2020 LAPAROTOMY, EXPLORATORY, POSSIBLE BOWEL RESECTION, POSSIBLE PARASTOMAL HERNIA REPAIR, POSSIBLE OSTOMY REVISION performed by Ronnie Mendez MD at [facility] OR LITHOTRIPSY N/A 12/21/2017 cystoscopy and Holmium laser lithotripsy of bladder calculi possible vesicolithotomy performed by Chris Cobb MD at [facility] OR MYELOMENINGOCELE REPAIR ORTHOPEDIC SURGERY 06/26/2007 I & D of spinal wound with DuraSeal control of spinal leak ORTHOPEDIC SURGERY 09/18/2007 Removal of distal end of both posterior spinal rods ORTHOPEDIC SURGERY 01/25/2008 Incision, debridement and drainage of spinal infection, closure over Tobramycin, calcium sulfate pellets OTHER SURGICAL HISTORY bowens stoma/ mitroffanof OTHER SURGICAL HISTORY vesicolothomy PICC PLACEMENT HI ANESTH,UGI ENDOSCOPY HI UROLOGY SURGERY PROCEDURE UNLISTED RECONSTRUCTIVE FLAP SURGERY 05/16/2019 EXCISION OF ISCHIAL PRESSURE ULCER WITH FLAP CLOSURE performed by Trent Issa MD at [facility] OR SPINAL FUSION 06/06/2007 RSF with instrumentation T2 to sacrum SPINAL FUSION 05/26/2010 Staged (single day) posterior fusion and anterior interbody fusion with instrumen (more content not included)... 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 Authentication Interface Message Text Marcos Aguirre : [...] MMK performed by Chris Cobb MD at [facility] OR ADENOIDECTOMY BLADDER SURGERY N/A 10/03/2016 VESICOLOTHOTOMY possible lithoclast performed by Chris Cobb MD at [facility] OR COLOSTOMY N/A 01/29/2019 COLOSTOMY performed by Perry Sheikh MD at [facility] OR GASTROSTOMY N/A 01/29/2019 ENDOSCOPIC GASTROSTOMY PERCUTANEOUS performed by Perry Sheikh MD at [facility] OR GASTROSTOMY 05/16/2019 gastrostomy tube removal performed by Perry Sheikh MD at [facility] OR HERNIA REPAIR HIP FUSION Right 05/16/2019 RIGHT HIP DISARTICULATION VERSUS CASTLE PROXIMAL FEMORAL RESECTION AND FLAP COVERAGE performed by Cruz Ramires MD at [facility] OR KIDNEY STONE SURGERY N/A 02/15/2018 CYSTOSCOPY WITH LITHOLAPAXY/VESICOLITHO TRIPSY/CYSTOLITHOPAXY & HOLMIUM LASER performed by Chris Cobb MD at [facility] OR LAMINECTOMY 05/24/2005 Untethering of spinal cord LAPAROTOMY N/A 11/04/2020 LAPAROTOMY, EXPLORATORY, POSSIBLE BOWEL RESECTION, POSSIBLE PARASTOMAL HERNIA REPAIR, POSSIBLE OSTOMY REVISION performed by Ronnie Mendez MD at [facility] OR LITHOTRIPSY N/A 12/21/2017 cystoscopy and Holmium laser lithotripsy of bladder calculi possible vesicolithotomy performed by Chris Cobb MD at [facility] OR MYELOMENINGOCELE REPAIR ORTHOPEDIC SURGERY 06/26/2007 I & D of spinal wound with DuraSeal control of spinal leak ORTHOPEDIC SURGERY 09/18/2007 Removal of distal end of both posterior spinal rods ORTHOPEDIC SURGERY 01/25/2008 Incision, debridement and drainage of spinal infection, closure over Tobramycin, calcium sulfate pellets OTHER SURGICAL HISTORY bowens stoma/ mitroffanof OTHER SURGICAL HISTORY vesicolothomy PICC PLACEMENT HI ANESTH,UGI ENDOSCOPY HI UROLOGY SURGERY PROCEDURE UNLISTED RECONSTRUCTIVE FLAP SURGERY 05/16/2019 EXCISION OF ISCHIAL PRESSURE ULCER WITH FLAP CLOSURE performed by Trent Issa MD at [facility] OR SPINAL FUSION 06/06/2007 RSF with instrumentation T2 to sacrum SPINAL FUSION 05/26/2010 Staged (single day) posterior fusion and anterior interbody fusion with instrumentation TONSILLECTOMY TONSILLECTOMY AND ADENOIDECTOMY UPPER GASTROINTESTINAL ENDOSCOPY N/A 06/20/2017 ENDOSCOPY UPPER (FLEXIBLE) with biopsies performed by Augustin Rey MD at [facility] OR VENTRICULOPERITONEAL SHUNT Pediatric History Patient Parents/Guardians Marcos Aguirre (Self/Guardian) Wendi Aguirre (Mother) Jae Aguirre (Father) Other Topics Concern Not on file Social History Narrative Not on file ED Triage Vitals Date and Time Temp Temp src Pulse Resp BP SpO2 Weight User (more content not included)... Normal [facility] Basic Metabolic Panelon 09 Calcium [Mass/Vol] 9.5 mg/dL Normal 7.6-11.0 [facility] Comment on above: Order Comment: Relea se to patient->Automatic 72538&Blood Performed By: #### B MP #### [address] [id number] CO2 [Moles/Vol] 29.8 mmol/L High 22.0-29.0 [facility] Comment on above: Order Comment: Relea se to patient->Automatic 38162&Blood Performed By: #### B MP #### [address] [id number] Creatinine [Mass/Vol] 0.51 mg/dL Low 0.70-1.20 [facility] Comment on above: Order Comment: Relea se to patient->Automatic 62142&Blood Performed By: #### B MP #### [address] [address] Glucose [Mass/Vol] 84 mg/dL Normal 70-99 [facility] Comment on above: Order Comment: Relea se to patient->Automatic 00234&Blood Result Comment: Salty guardado for Diagnosis of Diabetes: Fasting Specimen (no caloric intake for at least 8 hours): <100 mg/dL Normal 100-125 mg/dL Increased risk for Diabetes >125 mg/dL Diagnostic for Diabetes Random Glucose (any time of day without regard to last meal): > or = 200 mg/dL plus Classic Symptoms of Diabetes Performed By: #### B MP #### [place] [address] Urea nitrogen [Mass/Vol] 12 mg/dL Normal 4-19 [facility] Comment on above: Order Comment: Relea se to patient->Automatic 69146&Blood Performed By: #### B MP #### [address] [address] Chloride [Moles/Vol] 97 mmol/L Normal 96-108 [facility] Comment on above: Order Comment: Relea se to patient->Automatic 48483&Blood Performed By: #### B MP #### [address] [address] Potassium [Moles/Vol] 3.5 mmol/L Normal 3.3-5.1 [facility] Comment on above: Order Comment: Relea se to patient->Automatic 74868&Blood Performed By: #### B MP #### [address] [address] Sodium [Moles/Vol] 138 mmol/L Normal 133-145 [facility] Comment on above: Order Comment: Relea se to patient->Automatic [address]6300&Blood Performed By: #### B MP #### [facility] [address] [place] [address] C-Reactive Proteinon 022 C-Reactive Protein 1.0 mg/dL Normal 0.0-1.0 [facility] Comment on above: Order Comment: Relea se to patient->Automatic 18598&Blood Result Comment: CRP determinations in neonates should be interpreted with caution. CRP may be elevated in circumstances not associated with inflammation (e.g. difficult delivery, pneumothorax). In premature neonates CRP levels may not rise to abnormal levels even if sepsis is present; some speculate that immature liver function decreases the ability to generate a CRP response. Performed By: #### C RP #### [address] [address] [address] ABDOMEN/PELVIS WITH IV CO NTRASTon 06-24-2022 [...] Dr. Diana Moura at 06/24/2022 16:57 Normal [facility] Hemogramon 06-24-2022 Erythrocyte distribution width (RBC) [Ratio] 13.4 % Normal 0.0-14.4 [facility] Comment on above: Order Comment: Relea se to patient->Automatic 59930&Blood Performed By: #### H EGRM #### [address] [address] Hematocrit (Bld) [Volume fraction] 46.6 % Normal 41.0-50.0 [facility] Comment on above: Order Comment: Relea se to patient->Automatic 98858&Blood Performed By: #### H EGRM #### [address] [address] Hemoglobin (Bld) [Mass/Vol] 15.2 g/dL Normal 13.5-16.5 [facility] Comment on above: Order Comment: Relea se to patient->Automatic 14965&Blood Performed By: #### H EGRM #### [address] [address] MCH (RBC) [Entitic mass] 27.3 pg Normal 26.0-34.0 [facility] Comment on above: Order Comment: Relea se to patient->Automatic 03539&Blood Performed By: #### H EGRM #### [address] [address] MCHC 32.6 % Normal 31.0-37.0 [facility] Comment on above: Order Comment: Relea se to patient->Automatic 55692&Blood Performed By: #### H EGRM #### [address] [address] MCV (RBC) [Entitic vol] 83.7 fL Normal 80.0-100.0 [facility] Comment on above: Order Comment: Relea se to patient->Automatic 16110&Blood Performed By: #### H EGRM #### [address] [address] Nucleated RBC/100 WBC (Bld) [Ratio] 0.0 % Normal -1.0-0.0 [facility] Comment on above: Order Comment: Relea se to patient->Automatic 00076&Blood Performed By: #### H EGRM #### [address] [address] Platelet mean volume (Bld) [Entitic vol] 9.5 fL Normal [facility] Comment on above: Order Comment: Relea se to patient->Automatic 00329&Blood Result Comment: MPV is platelet range and age dependent Performed By: #### H EGRM #### [address] [address] Platelets (Bld) [#/Vol] 328 10*3/uL Normal 150-450 [facility] Comment on above: Order Comment: Relea se to patient->Automatic 16380&Blood Performed By: #### H EGRM #### [address] [address] RBC 5.57 10E12/L High 4.50-5.50 [facility] Comment on above: Order Comment: Relea se to patient->Automatic 41261&Blood Performed By: #### H EGRM #### [address] [address] WBC (Bld) [#/Vol] 10.3 10*3/uL Normal 4.5-11.0 [facility] Comment on above: Order Comment: Relea se to patient->Automatic 64400&Blood Performed By: #### H EGRM #### [address] [address] Hepatic Panelon 06-24-2022 Albumin [Mass/Vol] 4.4 g/dL Normal 3.5-5.0 [facility] Comment on above: Order Comment: Relea se to patient->Automatic 95207&Blood Performed By: #### L IVER #### [address] [address] ALP [Catalytic activity/Vol] 86 U/L Normal 40-129 [facility] Comment on above: Order Comment: Relea se to patient->Automatic 30085&Blood Performed By: #### L IVER #### [address] [address] AST [Catalytic activity/Vol] 39 U/L High 0-37 [facility] Comment on above: Order Comment: Relea se to patient->Automatic 04933&Blood Performed By: #### L IVER #### [address] [address] Bili, Conjugated <0.2 Normal 0.0-0.7 [facility] Comment on above: Order Comment: Relea se to patient->Automatic 61166&Blood Performed By: #### L IVER #### [address] [address] Bili,Total 0.5 mg/dL Normal 0.0-1.0 [facility] Comment on above: Order Comment: Relea se to patient->Automatic 54713&Blood Performed By: #### L IVER #### [facility] [address] [place] [address] Protein [Mass/Vol] 8.2 g/dL Normal 5.9-8.4 [facility] Comment on above: Order Comment: Relea se to patient->Automatic 69822&Blood Performed By: #### L IVER #### [facility] [address] [place] [address] ALT [Catalytic activity/Vol] 68 U/L High 0-46 [facility] Comment on above: Order Comment: Relea se to patient->Automatic 44446&Blood Performed By: #### L IVER #### [facility] [address] [place] [address] Lipaseon 06-24-2022 Lipase [Catalytic activity/Vol] 19 U/L Normal 13-95 [facility] Comment on above: Order Comment: Relea se to patient->Automatic 11574&Blood Performed By: #### L IPAS #### [facility] [address] [place] [address] ABDOMEN 1 VIEWon 06-19-2022 ABDOMEN 1 VIEW [...] surgical clips adjacent to the right acetabulum. STRAIGHT TOOTH GEAR GENERATOR OPERATOR shunt tubing. Lung bases clear. Right lower quadrant ostomy bag IMPRESSION: No significant dilated loops of small bowel are identified to suggest obstruction. This report has been created using voice recognition software Signed by: Dr. 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 Authentication Interface Message Text Marcos Aguirre : [...] MMK performed by Chris Cobb MD at [facility] OR ADENOIDECTOMY BLADDER SURGERY N/A 10/03/2016 VESICOLOTHOTOMY possible lithoclast performed by Chris Cobb MD at [facility] OR COLOSTOMY N/A 01/29/2019 COLOSTOMY performed by Perry Sheikh MD at [facility] OR GASTROSTOMY N/A 01/29/2019 ENDOSCOPIC GASTROSTOMY PERCUTANEOUS performed by Perry Sheikh MD at [facility] OR GASTROSTOMY 05/16/2019 gastrostomy tube removal performed by Perry Sheikh MD at [facility] OR HERNIA REPAIR HIP FUSION Right 05/16/2019 RIGHT HIP DISARTICULATION VERSUS CASTLE PROXIMAL FEMORAL RESECTION AND FLAP COVERAGE performed by Cruz Ramires MD at [facility] OR KIDNEY STONE SURGERY N/A 02/15/2018 CYSTOSCOPY WITH LITHOLAPAXY/VESICOLITHO TRIPSY/CYSTOLITHOPAXY & HOLMIUM LASER performed by Chris Cobb MD at [facility] OR LAMINECTOMY 05/24/2005 Untethering of spinal cord LAPAROTOMY N/A 11/04/2020 LAPAROTOMY, EXPLORATORY, POSSIBLE BOWEL RESECTION, POSSIBLE PARASTOMAL HERNIA REPAIR, POSSIBLE OSTOMY REVISION performed by Ronnie Mendez MD at [facility] OR LITHOTRIPSY N/A 12/21/2017 cystoscopy and Holmium laser lithotripsy of bladder calculi possible vesicolithotomy performed by Chris Cobb MD at [facility] OR MYELOMENINGOCELE REPAIR ORTHOPEDIC SURGERY 06/26/2007 I & D of spinal wound with DuraSeal control of spinal leak ORTHOPEDIC SURGERY 09/18/2007 Removal of distal end of both posterior spinal rods ORTHOPEDIC SURGERY 01/25/2008 Incision, debridement and drainage of spinal infection, closure over Tobramycin, calcium sulfate pellets OTHER SURGICAL HISTORY bowens stoma/ mitroffanof OTHER SURGICAL HISTORY vesicolothomy PICC PLACEMENT HI ANESTH,UGI ENDOSCOPY HI UROLOGY SURGERY PROCEDURE UNLISTED RECONSTRUCTIVE FLAP SURGERY 05/16/2019 EXCISION OF ISCHIAL PRESSURE ULCER WITH FLAP CLOSURE performed by Trent Issa MD at [facility] OR SPINAL FUSION 06/06/2007 RSF with instrumentation T2 to sacrum SPINAL FUSION 05/26/2010 Staged (single day) posterior fusion and anterior interbody fusion with instrumentation TONSILLECTOMY TONSILLECTOMY AND ADENOIDECTOMY UPPER GASTROINTESTINAL ENDOSCOPY N/A 06/20/2017 ENDOSCOPY UPPER (FLEXIBLE) with biopsies performed by Augustin Rey MD at [facility] OR VENTRICULOPERITONEAL SHUNT Pediatric History Patient [...] Mucous membran (more content not included)... Normal [facility] XR Abdomen Viewson IMPRESSION: No significant dilated loops of small bowel are identified to suggest obstruction. This report has been created using voice recognition software [facility] RADIOLOGY Clinical history: Vomiting.. Colostomy. Rule [...] surgical clips adjacent to the right acetabulum. STRAIGHT TOOTH GEAR GENERATOR OPERATOR shunt tubing. Lung bases clear. Right lower quadrant ostomy bag [facility] RADIOLOGY Nikita Plascencia MD - 06/19/2022 [...] surgical clips adjacent to the right acetabulum. STRAIGHT TOOTH GEAR GENERATOR OPERATOR shunt tubing. Lung bases clear. Right lower quadrant ostomy bag IMPRESSION: No significant dilated loops of small bowel are identified to suggest obstruction. This report has been created using voice recognition software [facility] Radiology Study observation (narrative) [facility] XR Abdomen ViewsOrdered By: Nikita Plascencia on 06-19-2022 [facility] Work Phone: [phone](OH)[phone] [facility] 2021 25-hydroxyvitamin D3 [Mass/Vol] 35.1 ng/mL Normal 31.0-80.0 [facility] Comment on above: Order Comment: Speci men Type: BLOOD SPECIMENOrdering Facility: [facility] Address: [address] [place], [place] [address] Result Comment: Clas sification of 25 [place] Vitamin D status:Deficiency/Insufficiency: < or = 30 ng/ml.Sufficiency/Optimal Levels: 31-80 ng/mLToxicity: > 100 ng/mL.Test performed by chemiluminescent immunoassay. Performed By: #### 1 989-3 ####[facility] LABCLIA [id number] [place] [address] [place] Basic metabolic 2000 panelon 06-14-2022 Anion gap [Moles/Vol] 12 mmol/L Normal 9-18 [facility] Comment on above: Order Comment: Speci men Type: BLOOD SPECIMENOrdering Facility: [facility] Address: [address] [place], [place] [address] Performed By: #### 2 4325-3, 57648-8 ####[facility]ENTERQIAN [id number] [place] [address] [place] Calcium [Mass/Vol] 9.5 mg/dL Normal 8.5-10.2 [facility] Comment on above: Order Comment: Speci men Type: BLOOD SPECIMENOrdering Facility: [facility] Address: [address] [place], [place] [address] Performed By: #### 2 4325-3, 81710-2 ####[facility]ENTERQIAN [id number] [place] [address] [place] Chloride [Moles/Vol] 100 mmol/L Normal 97-105 [facility] Comment on above: Order Comment: Speci men Type: BLOOD SPECIMENOrdering Facility: [facility] Address: [address] [place], [place] [address] Performed By: #### 2 4325-3, 08506-2 ####[facility] TEREZA SANCHEZLIA [id number] [place] [address] [place] CO2 [Moles/Vol] 26 mmol/L Normal 22-30 [facility] Comment on above: Order Comment: Speci men Type: BLOOD SPECIMENOrdering Facility: [facility] Address: [address] [place] [address] Performed By: #### 2 4325-3, 10598-4 ####[facility] DANIELLIA [id number] [place] [address] [place] Creatinine [Mass/Vol] 0.43 mg/dL Low 0.73-1.22 [facility] Comment on above: Order Comment: Speci men Type: BLOOD SPECIMENOrdering Facility: [facility] Address: [address] [place] [address] Performed By: #### 2 4325-3, 50447-7 ####[facility] SILVANOGEORGETOWNKYRALIA [id number] [place] [address] [place] GFR/1.73 sq M.predicted among non-blacks MDRD (S/P/Bld) [Vol rate/Area] mL/min/{1.73_m2} Normal >=60 [facility] Comment on above: Order Comment: Speci men Type: BLOOD SPECIMENOrdering Facility: [facility] Address: [address] [place] [address] Result Comment: Mary mated Glomerular Filtration Rate [...] actual GFR. Performed By: #### 2 4325-3, 93314-6 ####[facility] [id number] [place] [address] [place] Glucose [Mass/Vol] 109 mg/dL High 74-99 [facility] Comment on above: Order Comment: Speci men Type: BLOOD SPECIMENOrdering Facility: [facility] Address: [address] [place] [address] Result Comment: The [place] [employer] (ADA) provides guidance for cutoff [...] Standards of Medical Care in Diabetes 2016, [place] [employer]. Diabetes Care. 2016.39(Suppl 1). Performed By: #### 2 4325-3, 57248-1 ####[facility] [id number] [place] [address] [place] Potassium [Moles/Vol] 3.8 mmol/L Normal 3.7-5.1 [facility] Comment on above: Order Comment: Speci men Type: BLOOD SPECIMENOrdering Facility: [facility] Address: [address] [place] [phone] Performed By: #### 2 4325-3, 07252-8 ####[facility] [id number] [place] [address] [place] Sodium [Moles/Vol] 138 mmol/L Normal 136-144 [facility] Comment on above: Order Comment: Speci men Type: BLOOD SPECIMENOrdering Facility: [facility] Address: [address] [place] [phone] Performed By: #### 2 4325-3, 52106-9 ####[facility] MILLTOWNCLIA [id number] [place] [address] [place] Urea nitrogen [Mass/Vol] 13 mg/dL Normal 9-24 [facility] Comment on above: Order Comment: Speci men Type: BLOOD SPECIMENOrdering Facility: [facility] Address: [address] [place] [address] Performed By: #### 2 4325-3, 03704-9 ####[facility] MILLTOWNCLIA [id number] [place] [address] [place] CBC panel Auto (Bld)on 06-14 Erythrocyte distribution width (RBC) [Ratio] 13.4 % Normal 11.5-15.0 [facility] Comment on above: Order Comment: Speci men Type: BLOOD SPECIMENOrdering Facility: [facility] Address: [address] [place] [address] Performed By: #### 5 8410-2 ####[facility] CENTERWKYRALIA [id number] [address] [place] Hematocrit (Bld) [Volume fraction] 47.5 % Normal 39.0-51.0 [facility] Comment on above: Order Comment: Speci men Type: BLOOD SPECIMENOrdering Facility: [facility] Address: [address] [place] [address] Performed By: #### 5 8410-2 ####[facility] EDUINWKYRALIA [id number] [address] [place] Hemoglobin (Bld) [Mass/Vol] 15.3 g/dL Normal 13.0-17.0 [facility] Comment on above: Order Comment: Speci men Type: BLOOD SPECIMENOrdering Facility: [facility] Address: [address] [place] [address] Performed By: #### 5 8410-2 ####[facility] BRENT[facility] HOSPITALLIA [id number] [place] [address] [place] MCH (RBC) [Entitic mass] 26.9 pg Normal 26.0-34.0 [facility] Comment on above: Order Comment: Speci men Type: BLOOD SPECIMENOrdering Facility: [facility] Address: [address] [place] [address] Performed By: #### 5 8410-2 ####[facility]ENTERQIAN [id number] [place] [address] [place] MCHC (RBC) [Mass/Vol] 32.2 g/dL Normal 30.5-36.0 [facility] Comment on above: Order Comment: Speci men Type: BLOOD SPECIMENOrdering Facility: [facility] Address: [address] [place] [address] Performed By: #### 5 8410-2 ####[facility] CENTERKYRACoty [id number] [address] [place] MCV (RBC) [Entitic vol] 83.6 fL Normal 80.0-100.0 [facility] Comment on above: Order Comment: Speci men Type: BLOOD SPECIMENOrdering Facility: [facility] Address: [address] [place] [address] Performed By: #### 5 8410-2 ####[facility] CENTERKYRACoty [id number] [place] [address] [place] Nucleated RBC (Bld) [#/Vol] 10*3/uL Normal <0.01 [facility] Comment on above: Order Comment: Speci men Type: BLOOD SPECIMENOrdering Facility: [facility] Address: [address] [place] [address] Performed By: #### 5 8410-2 ####[facility] CENTERNCLIA [id number] [place] [address] [place] Platelet mean volume (Bld) [Entitic vol] 9.0 fL Normal 9.0-12.7 [facility] Comment on above: Order Comment: Speci men Type: BLOOD SPECIMENOrdering Facility: [facility] Address: [address] [place] [address] Performed By: #### 5 8410-2 ####[facility] CENTERNCTIERRA [id number] [place] [address] [place] Platelets (Bld) [#/Vol] 289 10*3/uL Normal 150-400 [facility] Comment on above: Order Comment: Speci men Type: BLOOD SPECIMENOrdering Facility: [facility] Address: [address] [place] [address] Performed By: #### 5 8410-2 ####[facility] CENTERNCLIA [id number] [place] [address] [place] RBC (Bld) [#/Vol] 5.68 10*6/uL Normal 4.20-6.00 [facility] Comment on above: Order Comment: Speci men Type: BLOOD SPECIMENOrdering Facility: [facility] Address: [address] [place] [address] Performed By: #### 5 8410-2 ####[facility]ENTERNCLIA [id number] [place] [address] [place] WBC (Bld) [#/Vol] 7.40 10*3/uL Normal 3.70-11.00 [facility] Comment on above: Order Comment: Speci men Type: BLOOD SPECIMENOrdering Facility: [facility] Address: [address] [place] [address] Performed By: #### 5 8410-2 ####[facility] CENTERWNCLIA [id number] [place] [address] [place] CYSTATIN Con 06-14-2022 Cystatin C [Mass/Vol] 0.87 mg/L Normal 0.61-0.95 [facility] Comment on above: Order Comment: Speci men Type: BLOOD SPECIMENOrdering Facility: [facility] Address: [address] [place] [address] Performed By: #### 2 4331-1 ####[facility] LABCLIA [id number] [address] [id number] [place] [address] [place]#### CYSTC, 2276-01, 2132-06 ####[facility] [id number] [address] [place] [facility] CYSTATIN C EGFR 108 mL/min/1.73m??? Normal >=60 [facility] Comment on above: Order Comment: Speci men Type: BLOOD SPECIMENOrdering Facility: [facility] Address: [address] [place] [address] Result Comment: Mary mated Glomerular Filtration Rate [...] actual GFR. Performed By: #### 2 4331-1 ####[facility] LABCLIA [id number] [address] [id number] [place] [address] [place]#### CYSTC, 2276-01, 2132-06 ####[facility] LABCLIA [id number] [place] [address] [place] Ferritin SerPl-mCncon 2021 Ferritin [Mass/Vol] 50.7 ng/mL Normal 30.3-565.7 [facility] Comment on above: Order Comment: Speci men Type: BLOOD SPECIMENOrdering Facility: [facility] Address: [address] [place], [place] [address] Performed By: #### 2 4331-1 ####[facility] LABCLIA [id number] [address] STATES [facility] TEREZA MILLWCOLIA [id number] [place] [address] [place]#### CYSTC, 2276-4, 2132-9 ####[facility] LABCLIA [id number] [place] [address] [place] Hepatic function 2000 panelo n 06-14-2022 Albumin [Mass/Vol] 4.7 g/dL Normal 3.9-4.9 [facility] Comment on above: Order Comment: Speci men Type: BLOOD SPECIMENOrdering Facility: [facility] Address: [address] [place], [place] [address] Performed By: #### 2 4325-3, 25968-4 ####[facility]PITALLIA [id number] [place] [address] [place] ALP [Catalytic activity/Vol] 96 U/L Normal 38-113 [facility] Comment on above: Order Comment: Speci men Type: BLOOD SPECIMENOrdering Facility: [facility] Address: [address] [place], [place] [address] Performed By: #### 2 4325-3, 69676-3 ####[facility] MILLWNCLIA [id number] [place] [address] [place] ALT [Catalytic activity/Vol] 39 U/L Normal 10-54 [facility] Comment on above: Order Comment: Speci men Type: BLOOD SPECIMENOrdering Facility: [facility] Address: [address] [place] [address] Performed By: #### 2 4325-3, 28354-9 ####[facility] SILVANOGARIMANCCONCETTAA [id number] [place] [address] [place] AST [Catalytic activity/Vol] 23 U/L Normal 14-40 [facility] Comment on above: Order Comment: Speci men Type: BLOOD SPECIMENOrdering Facility: [facility] Address: [address] [place] [address] Performed By: #### 2 4325-3, 72266-5 ####[facility]ENTERNCCONCETTAA [id number] [place] [address] [place] Bilirubin [Mass/Vol] 0.4 mg/dL Normal 0.2-1.3 [facility] Comment on above: Order Comment: Speci men Type: BLOOD SPECIMENOrdering Facility: [facility] Address: [address] [place] [address] Performed By: #### 2 4325-3, 22772-7 ####[facility]ENTERNCLIA [id number] [place] [address] [place] Bilirubin.conjugated [Mass/Vol] mg/dL Normal <0.2 [facility] Comment on above: Order Comment: Speci men Type: BLOOD SPECIMENOrdering Facility: [facility] Address: [address] [place] [address] Performed By: #### 2 4325-3, 33670-4 ####[facility]ENTERNCLIA [id number] [place] [address] [place] Protein [Mass/Vol] 8.0 g/dL Normal 6.3-8.0 [facility] Comment on above: Order Comment: Speci men Type: BLOOD SPECIMENOrdering Facility: [facility] Address: [address] [phone] Performed By: #### 2 4325-3, 38384-7 ####[facility] [id number] [place] [address] [place] Lipid 1996 panelon 2 Cholesterol [Mass/Vol] 186 mg/dL Normal <200 [facility] Comment on above: Order Comment: Speci men Type: BLOOD SPECIMENOrdering Facility: [facility] Address: [address] [place] [address] Result Comment: <200 mg/dL, Desirable 200-239 mg/dL, Borderline high>239 mg/dL, High Performed By: #### 2 4331-1 ####[facility] LABCLIA [id number] [id number] [place] [address] [place]#### CYSTC, 2276-01, 2132-06 ####[facility] LABCLIA [id number] [place] [address] [place] Cholesterol in HDL [Mass/Vol] 42 mg/dL Normal >39 [facility] Comment on above: Order Comment: Speci men Type: BLOOD SPECIMENOrdering Facility: [facility] Address: [address] [place] [address] Result Comment: 40-5 9 mg/dL, Acceptable>59 mg/dL, High: Negative risk factor for coronary heart disease<40 mg/dL, Low: Positive risk factor for coronary heart disease Performed By: #### 2 4331-1 ####[facility] LABCLIA [id number] [address] OF [facility] [id number] [address] [place]#### CYSTC, 2276-01, 2132-06 ####[facility] LABCLIA [id number] [address] [facility] Cholesterol in LDL [Mass/Vol] 122 mg/dL High <100 [facility] Comment on above: Order Comment: Speci men Type: BLOOD SPECIMENOrdering Facility: [facility] Address: [address] [place] [address] Result Comment: <100 mg/dL, Optimal 100-129 mg/dL, Near optimal/above optimal 130-159 mg/dL, Borderline high 160-189 mg/dL, High>189 mg/dL, Very highSecondary prevention optimal LDL Cholesterol levels are recommended to be < 70 mg/dL Performed By: #### 2 4331-1 ####[facility] LABIA [id number] [address] [id number] [address]#### CYSTC, 2275-, 2132-06 ####[facility] LABIA [id number] [address] [facility] Cholesterol in LDL/Cholesterol in HDL [Mass ratio] 2.90 {ratio} High <2.54 [facility] Comment on above: Order Comment: Speci men Type: BLOOD SPECIMENOrdering Facility: [facility] Address: [address] [place], [place] [address] Result Comment: Bouchra patiño:1. National Cholesterol Education Program ATP III Guideline At-A-Glance Quick Desk Reference: National Heart, Lung, and Blood Etlan. National Institutes of Health. 2001: NIH Publication No. 01-3305.2. An International Atherosclerosis Society position paper: global recommendations for the management of dyslipidemia: executive summary, Atherosclerosis. 2014: 232(2):410-413. Performed By: #### 2 4331-1 ####[facility] LABIA [id number] [address] [id number], [place] [address] [facility] [id number] [place] [address] [place]#### CYSTC, 2276-01, 2132-06 ####[facility] LABCLIA [id number] [address] [address] [place] Cholesterol in VLDL [Mass/Vol] 22 mg/dL Normal <30 [facility] Comment on above: Order Comment: Speci men Type: BLOOD SPECIMENOrdering Facility: [facility] Address: [address] [place], [place] [address] Performed By: #### 2 4331-1 ####[facility] LABCLIA [id number] [address] [id number] [place] [address] [place]#### CYSTC, 2276-01, 2132-06 ####[facility] LABCLIA [id number] [place] [address] [place] Cholesterol non HDL [Mass/Vol] 144 mg/dL High <130 [facility] Comment on above: Order Comment: Speci men Type: BLOOD SPECIMENOrdering Facility: [facility] Address: [address] [place] [address] Result Comment: <130 mg/dL, Optimal 130-159 mg/dL, Near optimal/above optimal 160-189 mg/dL, Borderline high 190-219 mg/dL, High>219 mg/dL, Very highSecondary prevention optimal non HDL Cholesterol levels are recommended to be <100 mg/dL Performed By: #### 2 4331-1 ####[facility] LABCLIA [id number] [place] [id number] [facility] [id number] [place] [address] [place]#### CYSTC, 6-4, 2132-06 ####[facility] LABCLIA [id number] [place] [address] [place] Cholesterol.total/Ch olesterol in HDL [Mass ratio] 4.43 {ratio} Normal <5.10 [facility] Comment on above: Order Comment: Speci men Type: BLOOD SPECIMENOrdering Facility: [facility] Address: [address] [place] [address] Performed By: #### 2 4331-1 ####[facility] LABCLIA [id number] [address] [id number] [place] [address] [place]#### CYSTC, 2276-01, 2132-06 ####[facility] LABCLIA [id number] [place] [address] [place] FASTING TIME 12 hrs Normal [facility] Comment on above: Order Comment: Speci men Type: BLOOD SPECIMENOrdering Facility: [facility] Address: [address] [place] [address] Performed By: #### 2 4331-1 ####[facility] LABCLIA [id number] [address] [id number] [place] [address] [place]#### CYSTC, 64, 2132-06 ####[facility] LABCLIA [id number] [place] [address] [place] Triglyceride [Mass/Vol] 111 mg/dL Normal <150 [facility] Comment on above: Order Comment: Speci men Type: BLOOD SPECIMENOrdering Facility: [facility] Address: [address] [id number] Result Comment: <150 mg/dL, Normal 150-199 mg/dL, Borderline high 200-499 mg/dL, High>499 mg/dL, Very high Performed By: #### 2 4331-1 ####[facility] LABCLIA [id number] [address] STATES OF [facility] [id number] [place] [address] [place]#### CYSTC, 4, 2132-06 ####[facility] LABCLIA [id number] [place] [address] [place] Vit B12 [facility] 06-14- 022 Cobalamin (Vitamin B12) [Mass/Vol] 831 pg/mL Normal 232-1245 [facility] Comment on above: Order Comment: Speci men Type: BLOOD SPECIMENOrdering Facility: [facility] Address: [address] [place], [place] [address] Performed By: #### 2 4331-1 ####[facility] LABCLIA [id number] [address] [id number] [place] [address] [place]#### CYSTC, 2276-01, 2132-06 ####[facility] LABCLIA [id number] [place] [address] [place] CNPNon 04-28-2022 CNPN Normal [facility] CNCOon 03-25-2022 CNCO Normal [facility] CNOVon 03-25-2022 CNOV Normal [facility] CNPTOUTREACHon 03-25-2022 CNPTOUTREACH Normal [facility] US KIDNEY/BLADDERon 03-25-20 US KIDNEY/BLADDER Normal [facility] Vital Signs Date Time Vital Sign Value Performing Clinician Facility 06-05-2025 09:07-0400 Body height 157.[address] Nikita Gramajo DO Work Phone: [facility] 06-05-2025 09:07-0400 Body mass index (BMI) [Ratio] 18.4 kg/m2 Dr. Nikita Gramajo DO Work Phone: [facility] 06-05-2025 09:07-0400 Body temperature 97.3 [degF] Dr. Nikita Gramajo DO Work Phone: [facility] 06-05-2025 09:07-0400 Body weight 45.[address] Nikita Gramajo DO Work Phone: [facility] 06-05-2025 09:07-0400 Diastolic blood pressure 90 mm[Hg] Dr. Nikita priest DO Work Phone: [facility] 06-05-2025 09:07-0400 Heart rate 78 /min Dr. Nikita Gramajo DO Work Phone: [facility] 06-05-2025 09:07-0400 Respiratory rate 16 /min Dr. Nikita Gramajo DO Work Phone: [facility] 06-05-2025 09:07-0400 SaO2% (BldA) [Mass fraction] 99 % Dr. Nikita Gramajo DO Work Phone: [facility] 06-05-2025 09:07-0400 Systolic blood pressure 130 mm[Hg] Dr. Nikita scales DO Work Phone: [facility] 02-27-2025 09:01-0400 Body mass index (BMI) [Ratio] 18.4 kg/m2 Dr. Nikita Gramajo DO Work Phone: [facility] 02-27-2025 09:01-0400 Body temperature 97.3 [degF] Dr. Nikita Gramajo DO Work Phone: [facility] 02-27-2025 09:01-0400 Body weight 45.[address] Nikita Gramajo DO Work Phone: [facility] 02-27-2025 09:01-0400 Diastolic blood pressure 96 mm[Hg] Dr. Nikita priest DO Work Phone: [facility] 02-27-2025 09:01-0400 Heart rate 80 /min Dr. Nikita Gramajo DO Work Phone: [facility] 02-27-2025 09:01-0400 Respiratory rate 18 /min Dr. Nikita Gramajo DO Work Phone: [facility] 02-27-2025 09:01-0400 SaO2% (BldA) [Mass fraction] 96 % Dr. Nikita Gramajo DO Work Phone: [facility] 02-27-2025 09:01-0400 Systolic blood pressure 137 mm[Hg] Dr. Nikita scales DO Work Phone: [facility] 01-24-2025 08:37-0400 Diastolic blood pressure 87 mm[Hg] Kelsie Giraldo MD Work Phone: [facility] 01-24-2025 08:37-0400 Heart rate 82 /min Kelsie Giraldo MD Work Phone: [facility] 01-24-2025 08:37-0400 Systolic blood pressure 125 mm[Hg] Kelsie Giraldo MD Work Phone: [facility] 02-20-2024 20:22-0400 Body height 157.48 cm [facility] 02-20-2024 20:22-0400 Body temperature 96.8 [degF] [facility] 02-20-2024 20:22-0400 Diastolic blood pressure 85 mm[Hg] [facility] 02-20-2024 20:22-0400 Heart rate 82 /min [facility] 02-20-2024 20:22-0400 Respiratory rate 16 /min [facility] 02-20-2024 20:22-0400 SaO2% (BldA) [Mass fraction] 96 % [facility] 02-20-2024 20:22-0400 Systolic blood pressure 122 mm[Hg] [facility] 01-26-2024 08:11-0400 Diastolic blood pressure 85 mm[Hg] Kelsie Giraldo MD Work Phone: [facility] 01-26-2024 08:11-0400 Heart rate 75 /min Kelsie Giraldo MD Work Phone: [facility] 01-26-2024 08:11-0400 Systolic blood pressure 132 mm[Hg] Kelsie Giraldo MD Work Phone: [facility] 08-25-2023 08:14-0400 Body height 154.9 cm Kelsie Giraldo MD Work Phone: [facility] 08-25-2023 08:14-0400 Body weight 40.82 kg Kelsie Giraldo MD Work Phone: [facility] 08-25-2023 08:14-0400 Diastolic blood pressure 80 mm[Hg] Kelsie Giraldo MD Work Phone: [facility] 08-25-2023 08:14-0400 Heart rate 97 /min Kelsie Giraldo MD Work Phone: [facility] 08-25-2023 08:14-0400 Systolic blood pressure 119 mm[Hg] Kelsie Giraldo MD Work Phone: [facility] 06-05-2023 15:16-0400 Body height 154.9 cm Marifer Dowd MD Work Phone: [facility] 06-05-2023 15:16-0400 Body temperature 98.01 [degF] Marifer Dowd MD Work Phone: [facility] 06-05-2023 15:16-0400 Body weight 45.36 kg Marifer Dowd MD Work Phone: [facility] 06-05-2023 15:16-0400 Diastolic blood pressure 84 mm[Hg] Marifer Dowd MD Work Phone: [facility] 06-05-2023 15:16-0400 Heart rate 94 /min Marifer Dowd MD Work Phone: [facility] 06-05-2023 15:16-0400 Systolic blood pressure 124 mm[Hg] Marifer Dowd MD Work Phone: [facility] 04-17-2023 11:24-0400 Body height 154.9 cm Marifer Dowd MD Work Phone: [facility] 04-17-2023 11:24-0400 Body temperature 97.39 [degF] Marifer Dowd MD Work Phone: [facility] 04-17-2023 11:24-0400 Diastolic blood pressure 76 mm[Hg] Marifer Dowd MD Work Phone: [facility] 04-17-2023 11:24-0400 Heart rate 92 /min Marifer Dowd MD Work Phone: [facility] 04-17-2023 11:24-0400 Respiratory rate 12 /min Marifer Dowd MD Work Phone: [facility] 04-17-2023 11:24-0400 Systolic blood pressure 115 mm[Hg] Marifer Dowd MD Work Phone: [facility] 03-15-2023 15:03-0400 SaO2% (BldA) [Mass fraction] 99 % NIKITA GAUTHIER [facility] Comment on above: Order Comment: Specimen Type: ARTERIAL B LOOD SPECIMENOrdering Facility: [facility] Address: [address] [place] [address] Performed By: #### A LLBG ####[facility] LABCLIA [id number] [address] OF [facility] 03-15-2023 13:35-0400 SaO2% (BldA) [Mass fraction] 99 % NIKITA GAUTHIER [facility] Comment on above: Order Comment: Specimen Type: ARTERIAL B LOOD SPECIMENOrdering Facility: [facility] Address: [address] [place] [address] Performed By: #### A LLBG ####[facility] LABCLIA [id number] [address] 03-15-2023 11:34-0400 SaO2% (BldA) [Mass fraction] 100 % NIKITA GAUTHIER [facility] Comment on above: Order Comment: Specimen Type: ARTERIAL B LOOD SPECIMENOrdering Facility: [facility] Address: [address] [place] [address] Performed By: #### A LLBG ####[facility] LABIA [id number] [address] 03-15-2023 05:55-0400 SaO2% (BldA) [Mass fraction] 99 % NIKITA GAUTHIER [facility] Comment on above: Order Comment: Specimen Type: ARTERIAL B LOOD SPECIMENOrdering Facility: [facility] Address: [address] [place] [address] Performed By: #### A LLBG ####[facility] LABIA [id number] [address] 03-15-2023 01:59-0400 SaO2% (BldA) [Mass fraction] 99 % NIKITA GAUTHIER [facility] Comment on above: Order Comment: Specimen Type: ARTERIAL B LOOD SPECIMENOrdering Facility: [facility] Address: [address] [place] [address] Performed By: #### A LLBG ####[facility] LABIA [id number] [address] 03-15-2023 00:20-0400 SaO2% (BldA) [Mass fraction] 100 % NIKITA GAUTHIER [facility] Comment on above: Order Comment: Specimen Type: ARTERIAL B LOOD SPECIMENOrdering Facility: [facility] Address: [address] [place] [address] Performed By: #### A LLBG ####[facility] LABIA [id number] [place] [id number] [facility] 03-14-2023 22:06-0400 SaO2% (BldA) [Mass fraction] 100 % NIKITA GAUTHIER [facility] Comment on above: Order Comment: Specimen Type: ARTERIAL B LOOD SPECIMENOrdering Facility: [facility] Address: [address] [place] [address] Performed By: #### A LLBG ####[facility] LABCLIA [id number] [address] 03-14-2023 20:05-0400 SaO2% (BldA) [Mass fraction] 99 % NIKITA GAUTHIER [facility] Comment on above: Order Comment: Specimen Type: ARTERIAL B LOOD SPECIMENOrdering Facility: [facility] Address: [address] [place] [address] Performed By: #### A LLMG ####[facility] LABCLIA [id number] [address] 03-14-2023 18:42-0400 SaO2% (BldA) [Mass fraction] 99 % NIKITA GAUTHIER [facility] Comment on above: Order Comment: Specimen Type: ARTERIAL B LOOD SPECIMENOrdering Facility: [facility] Address: [address] [place] [address] Performed By: #### A LLMG ####[facility] LABCLIA [id number] [address] 03-14-2023 17:33-0400 SaO2% (BldA) [Mass fraction] 99 % NIKITA GAUTHIER [facility] Comment on above: Order Comment: Specimen Type: ARTERIAL B LOOD SPECIMENOrdering Facility: [facility] Address: [address] [place], [place] [address] Performed By: #### A LLBG ####[facility] LABCLIA [id number] [address] 03-14-2023 14:16-0400 SaO2% (BldA) [Mass fraction] 100 % NIKITA GAUTHIER [facility] Comment on above: Order Comment: Specimen Type: ARTERIAL B LOOD SPECIMENOrdering Facility: [facility] Address: [address] [place] [id number] Performed By: #### A LLMG ####[facility] LABCLIA [id number] [place] [id number] [facility] 03-14-2023 13:02-0400 SaO2% (BldA) [Mass fraction] 99 % NIKITA GAUTHIER [facility] Comment on above: Order Comment: Specimen Type: ARTERIAL B LOOD SPECIMENOrdering Facility: [facility] Address: [address] [place] [phone] Performed By: #### A LLMG ####[facility] LABCLIA [id number] [place] [id number] [facility] 03-14-2023 12:09-0400 SaO2% (BldA) [Mass fraction] 99 % NIKITA GAUTHIER [facility] Comment on above: Order Comment: Specimen Type: ARTERIAL B LOOD SPECIMENOrdering Facility: [facility] Address: [address] [place] [phone] Performed By: #### A LLMG ####[facility] LABCLIA [id number] [place] [id number] [facility] 02-16-2023 12:44-0400 Body height 154.9 cm Pacc 2 Work Phone: [facility] 02-16-2023 12:44-0400 Body temperature 97.59 [degF] Pacc 2 Work Phone: [facility] 02-16-2023 12:44-0400 Body weight 40.82 kg Pacc 2 Work Phone: [facility] 02-16-2023 12:44-0400 Diastolic blood pressure 71 mm[Hg] Pacc 2 Work Phone: [facility] 02-16-2023 12:44-0400 Heart rate 69 /min Pacc 2 Work Phone: [facility] 02-16-2023 12:44-0400 SaO2% (BldA) [Mass fraction] 99 % Pacc 2 Work Phone: [facility] 02-16-2023 12:44-0400 Systolic blood pressure 120 mm[Hg] Pacc 2 Work Phone: [facility] 02-16-2023 11:23-0400 Body height 154.9 cm Harry Shore MD Work Phone: [facility] 02-16-2023 11:23-0400 Body temperature 97.3 [degF] Harry Shore MD Work Phone: [facility] 02-16-2023 11:23-0400 Body weight 40.82 kg Harry Shore MD Work Phone: [facility] 02-16-2023 11:23-0400 Diastolic blood pressure 81 mm[Hg] Harry Russo Work Phone: [facility] 02-16-2023 11:23-0400 Heart rate 70 /min Harry Shore MD Work Phone: [facility] 02-16-2023 11:23-0400 Respiratory rate 16 /min Harry Shore MD Work Phone: [facility] 02-16-2023 11:23-0400 SaO2% (BldA) [Mass fraction] 99 % Harry Shore MD Work Phone: [facility] 02-16-2023 11:23-0400 Systolic blood pressure 126 mm[Hg] Harry Shore MD Work Phone: [facility] 12-19-2022 11:14-0500 Body height 154.9 cm Marifer Dowd MD Work Phone: [facility] 12-19-2022 11:14-0500 Body temperature 97.7 [degF] Marifer Dowd MD Work Phone: [facility] 12-19-2022 11:14-0500 Diastolic blood pressure 73 mm[Hg] Marifer Dowd MD Work Phone: [facility] 12-19-2022 11:14-0500 Heart rate 92 /min Marifer Dowd MD Work Phone: [facility] 12-19-2022 11:14-0500 Respiratory rate 15 /min Marifer Dowd MD Work Phone: [facility] 12-19-2022 11:14-0500 Systolic blood pressure 116 mm[Hg] Marifer Dowd MD Work Phone: [facility] 12-01-2022 13:15-0500 Body height 157.[address] Omi Adams Work Phone: [facility] 11-28-2022 11:42-0500 Body mass index (BMI) [Ratio] 18.1 kg/m2 Dr. Omi Adams Work Phone: [facility] 11-28-2022 11:42-0500 Body temperature 97.6 [degF] Dr. Omi Adams Work Phone: [facility] 11-28-2022 11:42-0500 Body weight 44.[address] Omi Adams Work Phone: [facility] 11-28-2022 11:42-0500 Diastolic blood pressure 81 mm[Hg] Dr. Omi Adams Work Phone: [facility] 11-28-2022 11:42-0500 Heart rate 109 /min Dr. Omi Adams Work Phone: [facility] 11-28-2022 11:42-0500 Respiratory rate 18 /min Dr. Omi Adams Work Phone: [facility] 11-28-2022 11:42-0500 SaO2% (BldA) [Mass fraction] 98 % Dr. Omi Adams Work Phone: [facility] 11-28-2022 11:42-0500 Systolic blood pressure 122 mm[Hg] Dr. Omi Adams Work Phone: [facility] 08-01-2022 10:08-0400 Body height 154.9 cm Marifer Dowd MD Work Phone: [facility] 08-01-2022 10:08-0400 Body temperature 98.71 [degF] Marifer Dowd MD Work Phone: [facility] 08-01-2022 10:08-0400 Body weight 46.72 kg Marifer Dowd MD Work Phone: [facility] 08-01-2022 10:08-0400 Diastolic blood pressure 73 mm[Hg] Marifer Dowd MD Work Phone: [facility] 08-01-2022 10:08-0400 Heart rate 92 /min Marifer Dowd MD Work Phone: [facility] 08-01-2022 10:08-0400 Systolic blood pressure 126 mm[Hg] Marifer Dowd MD Work Phone: [facility] 06-25-2022 16:06-0400 Body temperature 97.9 [degF] Alina Tatum DO Work Phone: [facility] 06-25-2022 16:06-0400 Diastolic blood pressure 79 mm[Hg] Alina Scales Work Phone: [facility] 06-25-2022 16:06-0400 Heart rate 84 /min Alina Verna DO Work Phone: [facility] 06-25-2022 16:06-0400 Respiratory rate 24 /min Alian Verna DO Work Phone: [facility] 06-25-2022 16:06-0400 SaO2% (BldA) [Mass fraction] 97 % Alina Castanedaer DO Work Phone: [facility] 06-25-2022 16:06-0400 Systolic blood pressure 116 mm[Hg] Alina Castanedaer DO Work Phone: [facility] 06-25-2022 14:19-0400 Body mass index (BMI) [Ratio] 25.24 kg/m2 Alina Castanedaer DO Work Phone: [facility] 06-25-2022 14:19-0400 Body weight 46 kg Alina Tatum DO Work Phone: [facility] 06-19-2022 11:07-0400 Body mass index (BMI) [Ratio] 25.35 kg/m2 Misha Camarena MD Work Phone: [facility] 06-19-2022 11:07-0400 Body weight 46.2 kg Misha Camarena MD Work Phone: [facility] 06-19-2022 10:55-0400 Body temperature 97.9 [degF] Misha Camarena MD Work Phone: [facility] 06-19-2022 10:55-0400 Diastolic blood pressure 86 mm[Hg] Misha Camarena MD Work Phone: [facility] 06-19-2022 10:55-0400 Heart rate 97 /min Misha Camarena MD Work Phone: [facility] 06-19-2022 10:55-0400 Respiratory rate 24 /min Misha Camarena MD Work Phone: [facility] 06-19-2022 10:55-0400 SaO2% (BldA) [Mass fraction] 100 % Misha Camarena MD Work Phone: [facility] 06-19-2022 10:55-0400 Systolic blood pressure 126 mm[Hg] Misha Camarena MD Work Phone: [facility] Encounters Encounter Date Encounter Type Care Provider Facility Start: 06-05-2025 End: 06-05-[address] Nikita Gramajo DO Work Phone: -[facility] Start: 06-05-2025 End: 06-05-2025 Patient encounter procedure Alexa Peterson [employer]-C -[facility] Work Phone: Start: 05-01-2025 End: 05-01-2025 Telephone encounter Inga Astudillo RN Urology Start: 02-27-2025 End: 02-27-2025 Patient encounter procedure Alexa Peterson [employer]AWB[employer] BREAKER-C -[facility] Work Phone: Start: 02-27-2025 End: 02-27-2025 ambulatory Alexa Peterson NP Facility:[facility] Start: 01-28-2025 End: 01-29-2025 Documentation procedure Kelsie Giraldo MD Work Phone: Urology Start: 01-28-2025 End: 01-29-2025 Letter encounter Kelsie Giraldo MD Work Phone: Urology Start: 01-27-2025 End: 01-27-2025 Telephone encounter Nikita Gauthier MD Work Phone: [facility] [place] Start: 01-26-2025 End: 03-28-2025 Follow-up encounter Nikita Gauthier MD Work Phone: [facility] [place] Start: 01-24-2025 End: 01-27-2025 ambulatory Kelsie Giraldo MD Work Phone: Urology Start: 01-24-2025 End: 01-24-2025 Subsequent hospital visit by physician Main A21 1 Radiology Comment on above: Presence of suprapub ic catheter (HCC) [Z93.59] Start: 01-24-2025 End: 01-24-2025 Office outpatient visit 15 minutes Nikita Gauthier MD Work Phone: Internal Medicine Count Includes [facility] Comment on above: Spina bifida, unspec [...] Start: 08-05-2024 End: 08-05-2024 ambulatory NIKITA GRAMAJO Facility:[facility] Start: 08-05-2024 End: 08-05-2024 Patient encounter procedure NIKITA GRAMAJO DO [facility] Start: 06-27-2024 End: 06-27-2024 Telephone encounter Dank Richey RN Work Phone: Urology Comment on above: Culinary Specialist - O ther; Orders Start: 02-23-2024 Telephone encounter Nikita sue MD Work Phone: [facility] [place] Comment on above: CMN forms Start: 02-20-2024 End: 02-20-2024 Emergency department patient visit [facility] Work Phone: Start: 02-12-2024 Orders Only Sabiha Drake on [employer] Work Phone: Urology Comment on above: 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) Start: 01-26-2024 End: 01-26-2024 ambulatory Jeri Metha PA-C Work Phone: [facility] Comment on above: Congenital hydroceph alus (HCC) (Primary Dx) Start: 01-26-2024 End: 01-26-2024 Subsequent hospital visit by physician Main A21 2 Radiology Comment on above: Neurogenic bladder [ N31.9] Start: 01-26-2024 End: 01-26-2024 Telemedicine consultation with patient Jeri Obrien Tyson CARR Work Phone: [facility] Start: 01-26-2024 End: 01-26-2024 Office outpatient visit 25 minutes Nikita Gauthier MD Work Phone: Internal Medicine Count Includes [facility] Comment on above: Spina bifida, unspec [...] End: 09-11-2023 Outreach Lab NIKITA BELTRANFLEX RUBIN [facility] Start: 08-28-2023 Documentation procedure Kelsie Giraldo MD Work Phone: [facility] Start: 08-28-2023 Letter encounter Kelsie Russo [...] Nikita sue MD Work Phone: [facility] [place] Comment on above: [employer] Start: 07-20-2023 Telephone encounter Nikita sue MD Work Phone: [facility] [place] Comment on above: Forms Start: 06-07-2023 Orders [...] manag ement of inpatient NIKITA GRAMAJO IV Facility:[facility] Start: 02-16-2023 End: 02-17-2023 ambulatory MARIFER DOWD Facility:[facility] Start: 02-16-2023 End: 02-17-2023 ambulatory MARIFER DOWD Facility:[facility] Start: 02-16-2023 Encounter for other preprocedural examination NIKITA MEDINABARBI [facility] Start: 02-16-2023 End: 02-16-2023 Admission to establishment Pacc Main 2 Work Phone: [facility] Start: 02-16-2023 End: 02-16-2023 ambulatory [...] 12-29-[address] Omi Adams Work Phone: [facility] Work Phone: Start: 12-29-2022 End: 12-29-[address] Omi Adams Work Phone: [facility]-Pulmonary Services/Neurology Start: 12-21-2022 ambulatory Marifer Russo Work Phone: [facility] Comment on above: 5.23 Cure (Parast omal hernia repair 10 hours los 10) Start: 12-21-2022 Preprocedural examin ation done Marifer Dowd MD Work Phone: [facility] Start: 12-19-2022 End: 12-20-2022 ambulatory MARIFER ЕКАТЕРИНА Facility:[facility] Start: 12-19-2022 End: 12-19-2022 Patient encounter procedure Marifer Dowd MD Work Phone: General Surgery Comment on above: Parastomal hernia wi thout obstruction or gangrene (Primary Dx) Start: 12-01-2022 End: 12-01-[address] [facility] Start: 11-02-2022 End: 11-03-2022 ambulatory NIKITA GRAMAJO DO Facility:B Start: 11-02-2022 End: 11-02-2022 Patient encounter procedure NIKITA GRAMAJO DO [facility] Start: 08-01-2022 End: 08-02-2022 ambulatory MARIFER DOWD Facility:[facility] Start: 08-01-2022 End: 08-01-2022 Patient encounter procedure Marifer Dowd MD Work Phone: General Surgery Comment on above: Parastomal hernia wi th obstruction and without gangrene (Primary Dx) Start: 07-05-2022 End: 07-05-2022 ambulatory NIKITA GRAMAJO [facility] Start: 06-25-2022 End: 06-25-2022 Emergency department patient visit NIKITA GRAMAJO [facility] Start: 06-25-2022 End: 06-25-2022 Emergency department patient visit Alina Tatum DO Work Phone: [facility] Comment on above: Abdominal wall herni a (Primary Dx) Start: 06-24-2022 End: 06-25-2022 ambulatory NIKITA GRAMAJO [facility] Start: 06-19-2022 End: 06-19-2022 Emergency department patient visit MISHA CAMARENA [facility] Start: 06-19-2022 End: 06-19-2022 Emergency department patient visit Misha Camarena MD Work Phone: [facility] Comment on above: Gastroenteritis (Carito dank Dx) Start: 06-14-2022 End: 06-14-2022 ambulatory NIKITA GAUTHIER Facility:[facility] Start: 06-03-2022 End: 06-03-2022 ambulatory NIKITA BELTRANFLEX BENAVIDES Facility:[facility] Start: 03-29-2022 Orders Only Kelsie Giraldo MD Work Phone: Urology Comment on above: 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) Start: 03-25-2022 End: 03-26-2022 ambulatory Kelsie Giraldo MD Work Phone: Urology Start: 03-25-2022 Documentation procedure Kelsie Giraldo MD Work Phone: [facility] Start: 03-25-2022 Letter encounter Kelsie [...] Comment: Specimen Type: BLOOD SPEC IMENOrdering Facility: [facility] Address: [address] [place] [address] Performed By: #### T [id number] ####CC MAIN BLOOD BANKCLIA [id number] [address] OF [facility] Start: 12-29-2022 Plain chest X-ray [...] Nohemi Giraldo MD Work Phone: 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 ) NIKITA GRAMAJO DO Spinal cord structur e (body structure) NIKITA GRAMAOJ DO Comment on above: 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) NIKITA GRAMAJO DO Comment on above: 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 Plan of Treatment Date Care Activity Detail Author Start: 07-10-2025 End: 07-10-2025 ambulatory 07/10/2025 2:00 PM EDT OT/PT/Speech Visit [facility] [address] [place] [address] Gloria Moralez, PT wheelchair [facility] [place] Comment on above: wheelchair Start: 06-23-2025 Influenza vaccination [facility] Start: 01-16-2025 End: 01-02-2026 Basic metabolic 2000 panel - Serum or Plasma BASIC METABOLIC PANEL Lab Routine Presence of suprapubic catheter (HCC) Neurogenic bladder Expected: 01/16/2025 (Approximate), Expires: 01/02/2026 [facility] Comment on above: Expected: 01/16/2025 (Approximate), Expi res: 01/02/2026 Start: 01-16-2025 End: 01-02-2026 Cobalamin (Vitamin B12) [Mass/volume] in Serum or Plasma VITAMIN B12 Lab Routine Presence of suprapubic catheter (HCC) Neurogenic bladder Expected: 01/16/2025 (Approximate), Expires: 01/02/2026 [facility] Comment on above: Expected: 01/16/2025 (Approximate), Expi res: 01/02/2026 Start: 01-16-2025 End: 01-02-2026 CYSTATIN C CYSTATIN C Lab Routine Presence of suprapubic catheter (HCC) Neurogenic bladder Expected: 01/16/2025 (Approximate), Expires: 01/02/2026 [facility] Comment on above: Expected: 01/16/2025 (Approximate), Expi res: 01/02/2026 Start: 01-16-2025 End: 02-01-2026 US Kidney - bilateral and Urinary bladder US KIDNEY/BLADDER Radiology Routine Presence of suprapubic catheter (HCC) Neurogenic bladder Expected: 01/16/2025 (Approximate), Expires: 02/01/2026 [facility] Work Phone: Comment on above: Expected: 01/16/2025 (Approximate), Expi res: 02/01/2026 Start: 06-23-2024 Covid-19 Vaccine () Covid-19 Vaccine () [facility] Start: 06-23-2024 Covid-19 Vaccine () Covid-19 Vaccine () [facility] Start: 06-23-2024 Influenza vaccination [facility] Start: 02-20-2024 [facility] Start: 01-18-2024 End: 01-03-2025 Basic metabolic 2000 panel - Serum or Plasma BASIC METABOLIC PNL Lab Routine Neurogenic bladder Expected: 01/18/2024 (Approximate), Expires: 01/03/2025 [facility] Work Phone: Comment on above: Expected: 01/18/2024 (Approximate), Expi res: 01/03/2025 Start: 01-18-2024 End: 01-03-2025 Cobalamin (Vitamin B12) [Mass/volume] in Serum or Plasma VITAMIN B12 BLOOD Lab Routine Neurogenic bladder Expected: 01/18/2024 (Approximate), Expires: 01/03/2025 [facility] Work Phone: Comment on above: Expected: 01/18/2024 (Approximate), Expi res: 01/03/2025 Start: 01-18-2024 End: 01-03-2025 CYSTATIN C CYSTATIN C Lab Routine Neurogenic bladder Expected: 01/18/2024 (Approximate), Expires: 01/03/2025 [facility] Work Phone: Comment on above: Expected: 01/18/2024 (Approximate), Expi res: 01/03/2025 Start: 10-23-2023 Behavioral Health Screening Behavioral Health Screening [facility] Start: 10-23-2023 Depression Assessment Depression Assessment [facility] Start: 06-23-2023 Covid-19 Vaccine () Covid-19 Vaccine () [facility] Start: 06-23-2023 Influenza vaccination [facility] Start: 12-21-2022 End: 12-22-2023 aPTT in Platelet poor plasma by Coagulation assay ACTIVATED PTT Lab Routine Preoperative examination Parastomal hernia without obstruction or gangrene Expected: 12/21/2022, Expires: 12/22/2023 [facility] Work Phone: Comment on above: Expected: 12/21/2022, Expires: 4 Start: 12-21-2022 End: 12-22-2023 CBC W Auto Differential panel - Blood CBC + DIFF Lab Routine Preoperative examination Parastomal hernia without obstruction or gangrene Expected: 12/21/2022, Expires: 12/22/2023 [facility] Work Phone: Comment on above: Expected: 12/21/2022, Expires: Start: 12-21-2022 End: 12-22-2023 Comprehensive metabolic 2000 panel - Serum or Plasma COMP METABOLIC PANEL Lab Routine Preoperative examination Parastomal hernia without obstruction or gangrene Expected: 12/21/2022, Expires: 12/22/2023 [facility] Work Phone: Comment on above: Expected: 12/21/2022, Expires: 4 Start: 12-21-2022 End: 12-22-2023 PT panel - Platelet poor plasma by Coagulation assay PROTHROMBIN TIME/PT Lab Routine Preoperative examination Parastomal hernia without obstruction or gangrene Expected: 12/21/2022, Expires: 12/22/2023 [facility] Work Phone: Comment on above: Expected: 12/21/2022, Expires: Start: 12-21-2022 End: 12-22-2023 TYPE AND SCREEN,30 DAY TYPE AND SCREEN,30 DAY Blood Bank Routine Preoperative examination Parastomal hernia without obstruction or gangrene Expected: 12/21/2022 (Approximate), Expires: 12/22/2023 [facility] Work Phone: Comment on above: Expected: 12/21/2022 (Approximate), Expi res: 12/22/2023 Start: 10-23-2022 DEPRESSION ASSESSMENT DEPRESSION ASSESSMENT [facility] Start: 07-05-2022 End: 07-05-2022 Patient encounter procedure 07/05/2022 Office Visit Gastroenter[place] [address] Gastroenterology - [facility] Start: 06-23-2022 FLU (#1) FLU (#1) [facility] Start: 06-23-2022 Influenza vaccination INFLUENZA (#1) [facility] Start: 05-13-2022 COVID-19 VACCINE (5 - Booster for Moderna series) COVID-19 VACCINE (5 - Booster for Moderna series) [facility] Start: 05-13-2022 COVID-19 VACCINE (5 - Moderna series) COVID-19 VACCINE (5 - Moderna series) [facility] Start: 03-24-2022 End: 03-24-2023 CBC panel - Blood by Automated count CBC Lab Routine Screening for iron deficiency anemia Expected: 03/24/2022, Expires: 03/24/2023 [facility] Work Phone: Comment on above: Expected: 03/24/2022, Expires: 3 Start: 03-24-2022 End: 03-24-2023 FERRITIN BLD FERRITIN BLD Lab Routine Screening for iron deficiency anemia Expected: 03/24/2022, Expires: 03/24/2023 [facility] Work Phone: Comment on above: Expected: 03/24/2022, Expires: 3 Start: 03-24-2022 End: 05-24-2022 HEPATIC FUNCTION PNL HEPATIC FUNCTION PNL Lab Routine Spina bifida of lumbosacral region with hydrocephalus (HCC) Expected: 03/24/2022, Expires: 05/24/2022 [facility] Work Phone: Comment on above: Expected: 03/24/2022, Expires: 2 Start: 03-24-2022 End: 03-24-2023 LIPID PANEL BASIC LIPID PANEL BASIC Lab Routine Screening for lipoid disorders Expected: 03/24/2022, Expires: 03/24/2023 [facility] Work Phone: Comment on above: Expected: 03/24/2022, Expires: 3 Start: 03-24-2022 End: 03-24-2023 VITAMIN D 25 HYDROXY VITAMIN D 25 HYDROXY Lab Routine Vitamin D deficiency Expected: 03/24/2022, Expires: 03/24/2023 [facility] Work Phone: Comment on above: Expected: 03/24/2022, Expires: 3 Start: 10-23-2021 DEPRESSION ASSESSMENT DEPRESSION ASSESSMENT [facility] Start: 07-02-2020 Urine microalbumin profile [facility] Start: 2015 Anxiety Screening Anxiety Screening [facility] Start: 2015 Depression Screening Depression Screening [facility] Start: 2015 HEPATITIS C SCREENING HEPATITIS C SCREENING [facility] Start: 2015 Hepatitis C screening Hepatitis C Screening [facility] Start: 2015 HIV SCREENING HIV SCREENING [facility] Start: 2015 HIV screening HIV Screening [facility] Start: 2013 MenB (1 of 2 - MenB 2-Dose Series) MenB (1 of 2 - MenB 2-Dose Series) [facility] Start: 2012 HPV Vaccine (1 - Male 3-dose series) HPV Vaccine (1 - Male 3-dose series) [facility] Start: 2011 PEDS TO ADULT TRANSITION ANNUAL ASSESSMENT PEDS TO ADULT TRANSITION ANNUAL ASSESSMENT [facility] Start: 2009 Adult depression screening assessment DEPRESSION SCREENING [facility] Start: 2009 PEDS TO ADULT TRANSITION INITIAL DISCUSSION PEDS TO ADULT TRANSITION INITIAL DISCUSSION [facility] Start: 2008 HPV (1 - Male 2-dose series) HPV (1 - Male 2-dose series) [facility] Start: 2008 HPV VACCINE (1 - Male 2-dose series) HPV VACCINE (1 - Male 2-dose series) [facility] Start: 2007 MENINGOCOCCAL B: Consider based on risk (1 of 2 - Risk Bexsero 2-dose series) MENINGOCOCCAL B: Consider based on risk (1 of 2 - Risk Bexsero 2-dose series) [facility] Start: 2006 HPV VACCINE (1 - Male 2-dose series) HPV VACCINE (1 - Male 2-dose series) [facility] Start: 2004 Tetanus Diphtheria and Pertussis Vaccines (1 - Tdap) Tetanus Diphtheria and Pertussis Vaccines (1 - Tdap) [facility] Start: 1998 MMR (1 of 1 - Standard series) MMR (1 of 1 - Standard series) [facility] Start: 1998 Varicella (1 of 2 - 2-dose childhood series) Varicella (1 of 2 - 2-dose childhood series) [facility] End: 08-23-2024 Bacteria identified in Urine by Culture URINE CULTURE Microbiology Routine Recurrent UTI Once per month for 12 Occurrences starting 08/25/2023 until 08/23/2024 [facility] Work Phone: Comment on above: Once per month for 12 Occurrences starti ng 08/25/2023 until 08/23/2024 Continuous pulse oximetry [facility] End: 12-22-2023 ECG COMPLETE ECG COMPLETE ECG Routine Preoperative examination Parastomal hernia without obstruction or gangrene 1 Occurrences starting 12/21/2022 until 12/22/2023 [facility] Work Phone: Comment on above: 1 Occurrences starting 12/21/2022 until 12/22/2023 ECG COMPLETE ECG COMPLETE ECG Routine Tachycardia 08/25/2023 10:30 AM EDT [facility] Work Phone: End: 03-29-2023 EMG(NEURO/NI) EMG(NEURO/NI) EMG Routine Ulnar neuropathy of both upper extremities 1 Occurrences starting 03/29/2022 until 03/29/2023 [facility] Work Phone: Comment on above: 1 Occurrences starting 03/29/2022 until 03/29/2023 Patient Education ED Feeding Tub e Replacement [facility] Work Phone: Patient referral [facility] Work Phone: Polysomnography [facility] REFER FOR ADMIT INTERVIEW REFER FOR ADMIT INTERVIEW Procedures Routine Preoperative examination Parastomal hernia without obstruction or gangrene Ordered: 12/21/2022 [facility] Work Phone: Comment on above: Ordered: 12/21/2022 UA DIP, URINE (POC) UA DIP, URIN E (POC) Lab Routine Screening for genitourinary condition 1 Occurrences starting 01/24/2025 [facility] Work Phone: Comment on above: 1 Occurrences starting 01/24/2025 URINALYSIS, REFLEX MICROSCOPIC URINALYSIS, REFLEX MICROSCOPIC Lab Routine Screening for genitourinary condition Ordered: 03/25/2022 [facility] Work Phone: Comment on above: Ordered: 03/25/2022 URINALYSIS, REFLEX MICROSCOPIC URINALYSIS, REFLEX MICROSCOPIC Lab Routine Screening for genitourinary condition Ordered: 04/17/2023 [facility] Work Phone: Comment on above: Ordered: 04/17/2023 URINALYSIS, REFLEX MICROSCOPIC URINALYSIS, REFLEX MICROSCOPIC Lab Routine Screening for genitourinary condition Ordered: 08/25/2023 [facility] Work Phone: Comment on above: Ordered: 08/25/2023 URINALYSIS, REFLEX MICROSCOPIC URINALYSIS, REFLEX MICROSCOPIC Lab Routine Screening for genitourinary condition Ordered: 01/26/2024 [facility] Work Phone: Comment on above: Ordered: 01/26/2024 End: 02-02-2025 US Kidney - bilateral and Urinary bladder US KIDNEY/BLADDER Radiology Routine Neurogenic bladder 1 Occurrences starting 01/04/2024 until 02/02/2025 [facility] Work Phone: Comment on above: 1 Occurrences starting 01/04/2024 until 02/02/2025 [facility] Immunizations Immunization Date Immunization Notes Care Provider Fa andres 03-18-2022 COVID-19 vaccine, fu ll dose (MODERNA); Translations: [Moderna COVID-19 Vaccine] Us 2 [facility] Work Phone: 08-10-2021 influenza, injectabl e, quadrivalent, contains preservative; Translations: [Fluarix PF Quadrivalent ] NIKITA GRAMAJO DO [facility] 08-10-2021 COVID-19 vaccine, fu ll dose (MODERNA); Translations: [Moderna COVID-19 Vaccine] Us 2 [facility] Work Phone: 08-10-2021 influenza, injectabl e, quadrivalent, preservative free Us 2 [facility] Work Phone: 08-10-2021 influenza virus vacc ine, unspecified formulation Nikita Gauthier MD Work Phone: [facility] 12-30-2020 COVID-19 vaccine, fu ll dose (MODERNA) Us 2 [facility] Work Phone: Comment on above: Result Comment: 2021: [id number] 12-03-2020 COVID-19 vaccine, fu ll dose (MODERNA) Us 2 [facility] Work Phone: 09-19-2018 influenza, injectabl e, quadrivalent, preservative free [facility] 09-19-2018 influenza, seasonal, injectable Dr. Omi Adams Work Phone: [facility] 09-19-2018 influenza, seasonal, injectable, preservative free 2 [facility] Work Phone: 07-19-2016 meningococcal oligosaccharide (groups A, C, Y and W-135) diphtheria toxoid conjugate vaccine (MCV4O) Us 2 [facility] Work Phone: 07-19-2016 meningococcal polysaccharide (groups A, C, Y and W-135) diphtheria toxoid conjugate vaccine (MCV4P) NIKITA GRAMAJO DO [facility] 07-02-2010 tetanus toxoid, redu zacarias diphtheria toxoid, and acellular pertussis vaccine, adsorbed Us 2 [facility] Work Phone: 08-26-2009 novel influenza-H1N1 -09, preservative-free, injectable Us 2 [facility] Work Phone: 06-07-2003 diphtheria, tetanus toxoids and acellular pertussis vaccine, unspecified formulation Us 2 [facility] Work Phone: 06-07-2003 measles, mumps and rubella virus vaccine Us 2 [facility] Work Phone: 06-07-2003 measles/mumps/rubell a virus vaccine NIKITA ALVAREZFLEX DO [facility] 06-07-2003 trivalent poliovirus vaccine, live, oral Us 2 [facility] Work Phone: 05-18-1999 diphtheria, tetanus toxoids and acellular pertussis vaccine, unspecified formulation Us 2 [facility] Work Phone: 05-18-1999 haemophilus influenz ae type b vaccine, PRP-T conjugate Us 2 [facility] Work Phone: 05-18-1999 trivalent poliovirus vaccine, live, oral Us 2 [facility] Work Phone: 10-08-1998 diphtheria, tetanus toxoids and acellular pertussis vaccine, unspecified formulation Us 2 [facility] Work Phone: 10-08-1998 measles, mumps and rubella virus vaccine Us 2 [facility] Work Phone: 10-08-1998 measles/mumps/rubell a virus vaccine NIKITA GRAMAJO DO [facility] 03-03-1998 diphtheria, tetanus toxoids and acellular pertussis vaccine, unspecified formulation Us 2 [facility] Work Phone: 03-03-1998 haemophilus influenz ae type b vaccine, PRP-T conjugate Us 2 [facility] Work Phone: 03-03-1998 hepatitis B pediatri c vaccine NIKITA GRAMAJO DO [facility] 03-03-1998 hepatitis B vaccine, pediatric or pediatric/adolescent dosage Us 2 [facility] Work Phone: 1997 diphtheria, tetanus toxoids and acellular pertussis vaccine, unspecified formulation 2 [facility] Work Phone: 1997 trivalent poliovirus vaccine, live, oral Us 2 [facility] Work Phone: 1997 diphtheria, tetanus toxoids and acellular pertussis vaccine, unspecified formulation Us 2 [facility] Work Phone: 1997 haemophilus influenz ae type b vaccine, PRP-T conjugate Us 2 [facility] Work Phone: 1997 trivalent poliovirus vaccine, live, oral Us 2 [facility] Work Phone: 1997 hepatitis B pediatri c vaccine NIKITA Roomster [facility] 1997 hepatitis B vaccine, pediatric or pediatric/adolescent dosage Us 2 [facility] Work Phone: 1997 hepatitis B pediatri c vaccine NIKITA Roomster [facility] 1997 hepatitis B vaccine, pediatric or pediatric/adolescent dosage 2 [facility] Work Phone: NEGATED: Highlighted row has not occurred!01-09-2020 influenza, seasonal, injectable [address] Comment on above: Deferred: OTHER - In process of discharge Payers Date Payer Category Payer Self-pay [id number] 2023 Unknown [id number] 2023 Private Health Insurance [id number] 2022 Unknown [id number] 2022 Medicaid MEDICAID [facility] MEDICAID [id number] 2022-Present [phone] [address] [place] [address] Medicaid [id number] 2019 Unknown [facility] PPO CONNECT GENERIC [id number] 2019-Present [phone] [address] [place] [address] PPO [id number] 2019 Unknown [id number] 2018 Unknown [id number] 2016 Medicaid [id number] 2011 Medicaid [id number] 1997 Unknown [id number] 79 1997 Unknown [id number] 79 1997 Unknown [id number] 79 1997 Unknown [id number] 79 1997 Unknown [id number] 79 1997 Unknown [id number] 27 1997 Unknown [id number] 27 1997 Unknown [id number] 27 Unknown [id number] Unknown [id number] Social History Date Type Detail Facility Start: 12-18-2019 End: 02-20-2024 Tobacco smoking status NHIS Never smoked tobacco [facility] Start: 12-18-2019 End: 02-16-2023 Tobacco use and exposure Smokeless tobacco non-user [facility] Start: 1997 Sex Assigned At Male C [facility] Start: 03-15-2022 End: 08-01-2022 Exposure to SARS-CoV-2 (event) Not sure [facility] Work Phone: Start: 06-19-2022 End: 06-25-2022 Alcohol intake Current non-drinker of alcohol (finding) [facility] Start: 06-19-2022 End: 04-17-2023 Alcohol intake [facility] Start: 1997 Sex Assigned At Not on file A [facility] Start: 12-01-2022 End: 02-20-2024 Tobacco smoking status AZIS Unknown if ever smoked [facility] Start: 10-25-2018 None [facility] Start: 10-25-2018 With Family [facility] Start: 10-26-2018 Non-smoker [facility] Start: 02-16-2023 End: 02-02-2025 Alcohol intake Lifetime non-drinker (finding) [facility] Start: 03-16-2023 History SDOH Financial 5 [facility] Start: 03-16-2023 History SDOH Food Worry 1 [facility] Start: 03-16-2023 History SDOH Transpo rt Med 2 [facility] Start: 04-17-2023 End: 06-05-2023 Tobacco use panel [facility] How hard is it for y ou to pay for the very basics like food, housing, medical care, and heating Not hard at all [facility] (I/We) worried silviano er (my/our) food would run out before (I/we) got money to buy more. Never true [facility] In the past 12 month s, was there a time when you were not able to pay the mortgage or rent on time? No [facility] Start: 01-02-2020 Gender identity Identifies as male gender (finding) [facility] Start: 01-02-2020 Sexual orientation Heterosexual (mini ralph) [facility] Medical Equipment Procedure Code Equipment Code Equipment Original Text Equipment Identifier Dates Stent Expel Twis t-Loc 8fr Metal 22cm Nephroureteral Internal External - [id number] Start: 01-03-2020 Arth Hip Pushloc k 2.9x12.5 ()[id number](21)N/A, [id number] FDA Start: 05-16-2019 Stplr Ирина 80mm [id number] Start: 01-29-2019 Clip Liga Med/Lg ()[id number] (21)N/A, [id number] FDA Start: 05-16-2019 Mesh Soft Prolen e 50x50 Cm - [id number] Start: 03-14-2023 Tube Lele Secur-L ok 20fr White Silicone Gastrostomy Medication Port - [id number] Start: 03-14-2023 Mesh Vicryl Flat Polyglactin 910 Woven [id number] Surgical Knit Hernia Repair - [id number] Start: 03-14-2023 Mesh Soft Prolen e 50x50 Cm - [id number] Start: 03-14-2023 Mesh Vicryl Flat Polyglactin 910 Woven [id number] Surgical Knit Hernia Repair - [id number] Start: 03-14-2023 Functional Status Date Assessment Result Facility 03-25-2023 Are you deaf, or do you have serious difficulty hearing No 03/25/2023 12:44 PM Alyce Syed RN No [facility] 03-25-2023 Are you blind, or do you have serious difficulty seeing, even when wearing glasses No 03/25/2023 12:44 PM Alyce Syed, RN No [facility] 03-25-2023 Do you have serious difficulty walking or climbing stairs Yes 03/25/2023 12:44 PM Alyce Syed, BRUCE Yes [facility] 03-25-2023 Do you have difficul ty dressing or bathing Yes 03/25/2023 12:44 PM EDT Alyce Griffith RN Yes [facility] 03-25-2023 Because of a physica l, mental, or emotional condition, do you have difficulty doing errands alone such as visiting a physician's office or shopping Yes 03/25/2023 12:44 PM EDT Alyce Griffith, RN Yes [facility] Mental Status Date Assessment Result Facility 02-20-2024 Cognitive function Level Of Cons ciousness Awake;Alert;Appropriate [facility] Work Phone: 03-25-2023 Because of a physica l, mental, or emotional condition, do you have serious difficulty concentrating, remembering, or making decisions No 03/25/2023 12:44 PM EDT Alyce Griffith RN No [facility] Clinical Notes 01-04-2020 to 05-01-2025 Telephone Encounter - Inga Astudillo RN - 05/01/2025 12:32 PM EDTTelephone Encounter - Inga Astudillo RN - 05/01/2025 12:32 PM EDT Note Date & Type Note Facility 05-01-2025 Telephone encount er Note Faxed catheter order and supporting documentation to [facility]. [facility] 05-01-2025 Miscellaneous Notes Formattin g of this note might be different from the original. Faxed catheter order and supporting documentation to [facility]. documented in this encounter [facility] 02-27-2025 Evaluation note Diagnosis Onset Date Resolution Depression acute February 27, 2025 2:47pm Chronic respiratory failure with hypoxia and hypercapnia chronic February 27, 2025 2: 47pm Neuromuscular respiratory weakness chronic February 27 2:47pm Spina bifida chronic February 27 2:47pm Chronic respiratory failure with hypoxia and hypercapnia chronic June 05 2:55pm Neuromuscular respiratory weakness chronic May 2:55pm Spina bifida chronic June 05, 2025 2:55pm [facility] Work Phone: [phone] Telephone encounter Note* Telephone Encounter - Nikita Gauthier MD - 01/27/2025 2:57 PM EDT Form completed, signed, and placed in outbox. [facility]04-07-2025 Note* Addendum Note - Nikita Gauthier MD - 01/27/2025 2:57 PM EDTAddended by: NIKITA GAUTHIER on: 01/27/2025 02:57 PM Modules accepted: Orders [facility]04-07-2025 Miscellaneous Notes* Telephone Encounter - Nikita Gauthier [...] in basket for signature documented in this encounterChildren'S [facility]04-[facility]-2025 Telephone encounter Note * Telephone Encounter - Yasmeen Henderson MA - 01/27/2025 12:16 PM EDT Received forms and placed in in basket for signature [facility]04-04-2025 History of Present illness Narrative* Wilfrido Schwartz [...] PATIENT PRESENTS WITH AN IMPLANTABLE OR ATTACHED SUPPLY CHAIN BUSINESS ANALYST: No RADIOLOGY DEPARTMENT: Ultrasound PERIPHERAL IV DATA: Not applicable SIGNED BY: RT Laurel(R) January 24, 2025 1:47 PM documented in this encounterChildren'S Hospital [facility]04-04-2025 Instructions* Patient Instructions* Mando Gibbs MD - 01/24/2025 12:38 PM EDT Wheelchair modifications to current chair [facility] for new power assist wheelchair F/U in 1 year or prn documented in this encounterChildren'S Hospital [facility]04-04-2025 History of Present illness Narrative* Mando Gibbs MD - 01/24/2025 10:41 AM EDT Images from the original note were not included. PM&R/SCI Medicine Attending Outpatient Note Name: Marcos Aguirre [id number] Date of Service: 01/24/25 Last seen: 01/26/24 [...] emotion wheels and Comfort Inception cushion . Sales Development Executive is motion mobility Date getting chair 2019 [...] wheelchair 3 Date of completion of the lehr-xm-gcbh examination 01/24/25 4 Pertinent diagnosis/conditions that relate [...] [place] the [place] [phone] and on the left [phone] 8 Why can't patient safely use a [...] Gibbs MD 01/24/25 11 Physician's NPI number [id number] Assessment T2 Paraplegia neurologically stable Neurogenic Bladder [...] Injury Medicine Attending Physical Medicine & Rehabilitation [phone] documented in this encounterChildren'[facility]04-04-20[facility] History of Present illness Narrative* Kelsie Giraldo [...] last visit, he was changing his 14 Estonian catheter daily and keeping it indwelling. He [...] for emergency use. MEDICAL SUPPLY Lubrication jelly [id number] (1 box every 3 months) Bed pads [id number] MEDICAL SUPPLY Feed bags INF 1200-E (30 per month) Feed ext tube [id number]-MQUWOI (4 per month) G-tubebutton 20F 4.0cm (2 per year) 2x2 split sponges 16-7206 (1 box per month) 2 paper tape 1530-2 (1 box every 6 months) 4x4 drain sponges 7088 (1 box per 12 months) MEDICAL SUPPLY Overnight gravity urine bags (4 per month) 14F male straight Covian latex free (16-M1614) 1 box per month Prevail diapers - size medium (PFO12/2 1 per day - 30 per month MEDICAL SUPPLY 2 skin barrier rings [id number] (1 box every 2 months) Adapt adhesive remover wipes 5560 (1 box every 2 months) Obdulia colostomy [...] The patient consented to the use of [employer] software for draft documentation of the visit consistent with [facility] s Notice of Privacy Practices. A/P: 1. Spina bifida with hydrocephalus, unspecified spinal region (HCC) (Q05.4) Patient has a history of spina bifida with hydrocephalus. Currently managing with daily 14 Estonian catheter changes without balloon inflation. No recent [...] noted. Kelsie Giraldo MD documented in this encounterChildren'S Hospital Of [facility]04-04-2025 History of Present illness Narrative* Nikita Gauthier MD - 01/24/2025 8:57 AM EDT Spina Bifida Multidisciplinary Clinic Internal Medicine HPI: Marcos Aguirre is a 29 year old male who presents for spina bifida multidisciplinary clinic. Here with mom and dad. 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 Underwent open hernia repair with colostomy [...] for Vital 1.0 to be faxed to [facility]. Physical Exam BP 125/87 Pulse 82 [...] fax a script for Vital 1.0 to [facility] on Monday. 3. Viral URI (J06.9) [...] The patient consented to the use of [employer] software for draft documentation of the visit consistent with [facility] s Notice of Privacy Practices. Nikita Gauthier MD Staff Physician Clinical [employer] Coachfield marketing specialist [facility] [address] [place] [address] Office: documented in this encounterChildren'S Hospital [facility]10-14-2024 Note* Exam Date Time Procedure Performing Provider Status 08/05/24 4:26 PM Echocardiogram, Adult - CV Auth (Verified) [facility] 09-05-2024 Telephone encounter Note* Telephone Encounter - Dank Richey RN - 06/27/2024 2:39 PM EDTSummary: catheter orders for [facility] Images from the original note were not included. Hi, Found the order they were looking for, completed it and faxed it back. Now you have it too, and I have all the specific products you need. Let me know if there is anything else we need to do. [facility] [phone] #1 #2 Fx [phone] [facility] Work Phone: [phone]) 186-432709-05-2024 Miscellaneous Notes* Telephone Encounter - Dank Richey RN - 06/27/2024 2:39 PM EDTSummary: catheter orders for [facility] Images from the original note were not included. Hi, Found the order they were looking for, completed it and faxed it back. Now you have it too, and I have all the specific products you need. Let me know if there is anything else we need to do. [facility] [phone] #1 #2 Fx [phone] documented in this encounterChildren'S Hospital [facility]05-16-2024 Telephone encounter Note * Telephone Encounter - Shyanne Bledsoe MA - 03/07/2024 1:50 PM EDT Form and script faxed. Shyanne Bledsoe MA March 07, 2024 1:50 PM [facility]05-16-2024 Miscellaneous Notes* Telephone Encounter - Shyanne Bledsoe [...] name: Dr. Abrahan Iglesias documented in this encounterChildren'S Hospital Of [facility]05-15-2024 Telephone encounter Note * Telephone Encounter - Nikita Gauthier MD - 03/06/2024 8:52 PM EDT Form completed, signed, placed in outbox, please fax. Also included an RX for lele-sahni buttons. [facility]05-09-2024 Telephone encounter Note* Telephone Encounter - Shyanne Bledsoe MA - 02/29/2024 10:18 AM EDT Form f'wd to Dr.'s sexton for signature. Shyanne Bledsoe MA February 29, 2024 10:18 AM [facility]05-03-2024 Telephone encounter Note* Telephone Encounter - Adeola Iglesias - 02/23/2024 3:06 PM EDT Patient has been identified by name and date of : Yes Type of form: Home Care forms Form received via: Fax When form is completed, fax form to fax number provided. Form has been forwarded to: Provider's mailbox. Provider name: Dr. Abrahan Iglesias [facility]04-30-2024 Discharge summary Author Joseph Rios [facility] February 20, 2024 9:34pm Note Date/Time February 20, 2024 8:4 5pm [facility] Medical Records Department [address] [place] [address] Emergency Department Summary 02/20/24 MR#: [id number] Acct: [id number] Name: MARCOS AGUIRRE Rep #:[id number] : 1995 28 From: Joseph Rios MD PCP: Dr. Nikita Gramajo, DO Status:REG [...] be closed. Nurse was asked to contact supervisor cellars to get urethral sounds from the OR. [...] dilated using urethral sounds. Initially a 12 Estonian was placed. Dilated up to 16. The [...] your Primary Care Provider. Call [facility] ([phone]) or report to the closest Emergency Room. Call 911 if necessary. 02/20/242133 <Electronically signed by Joseph Rios MD> Cosigner Signature (if applicable): CC: Dr. Nikita Gramajo DO ~ Signed [facility] Work Phone: 1(244) 158-694904-22-2024 History of Present illness Narrative* Sabiha Mcarthur APRN.CNP - 02/12/2024 2:44 PM EDT Signed pended order for medical supplies from [employer]. Gave signed paper prescription to [facility]. Sabiha Mcarthur APRN.HIDE CLEANER documented in this encounterChildren'S Hospital Of [facility]04-08-2024 Instructions* Patient Instructions* Mando Gibbs MD - 01/29/2024 8:05 AM EDT Plastic Surgery referral to assess left midline wound (present since 2018) for surgical management versus silver nitrate F/U as needed documented in this encounterChildren'S Hospital Of [facility]04-05-2024 History of Present illness Narrative* Nikita Gauthier MD - 01/26/2024 10:06 AM EDT Spina Bifida Multidisciplinary Clinic Internal Medicine HPI: Marcos Aguirre is a 28 year old male who presents for spina bifida multidisciplinary clinic. Here with his parents. PCP: Dr. Gramajo. 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 Underwent open hernia repair with colostomy [...] ordered. Nikita Gauthier MD Staff Physician Clinical [employer] Coachfield marketing specialist [facility] Pediatric[facility] [address] [place] [address] Office: documented in this encounterChildren'S Hospital Of [facility]04-05-2024 History of Present illness Narrative* Mando Gibbs MD - 01/26/2024 9:50 AM EDT Images from the original note were not included. PM&R/SCI Medicine Attending Outpatient Note Name: Marcos Aguirre [id number] Date of Service: 01/26/24 Last seen: 08/25/23 [...] emotion wheels and Comfort Inception cushion . Sales Development Executive is ChromaDex Date getting chair [address] Objective Physical Exam: General: cooperative BACK: 1x1cm shallow midline wound above pelvis. [place] granulation tissue EXT: Right hip disarticulation Neurologic: [...] Injury Medicine Attending Physical Medicine & Rehabilitation [phone] documented in this encounterChildren'S Hospital Of [facility]04-05-2024 History of Present illness Narrative* Jeri Mehta PA-C - 01/26/2024 9:30 AM EDT This note was created using [employer]. Subjective Marcos Aguirre is a 28 year old male seen today via zoom to establish care for cranberry bog supervisor shunt in setting of spina bifida. Hx congential hydrocephalus shunted since , no revisions after first year of life, left parietal VPS, non programmable valve, spina-bifida with severe scoliotic deformity (instrumented fusion ~ T10-L2 2007, [facility]'), wheelchair dependent, admitted last year to [facility] after elective G tube revision and abdominal wall reconstruction for hernias. Neurosurgery was consulted to rule out involvement of VPS in the context of uptrending post-operative leukocytosis. Pt was recommended outpatient follow up and was not able to make connection. He reports today and is experiencing a bit of an elevated heart rate. He spoke with his runway model and they put him on something to [...] Physical Exam Assessment and Plan Congenital hydrocephalus Hops Farmworker shunt with non-programmable valve H/o spina bifida [...] which included preparing to see the patient, tuck-vm-crya patient care, completing clinical documentation, obtaining and/or reviewing separately obtained history, counseling and educating the patient/family/caregiver, communicating with other HCPs (not separately reported), independently interpreting results (not separately reported), communicating results to the patient/family/caregiver, and care coordination (not separately reported). This virtual visit was conducted via [employer] which is a HIPAA compliant video platform. I received consent from the patient to perform the visit using this platform. The visit required patient-provider interaction for the medical decision making as documented herein. I have communicated my name and active licensure. The patient's identity and physical location wereverified at the time of this visit. Either the patient or their legal volunteer patient representative has been informed of the risks and benefits of -- and alternatives to -- treatment through a remote evaluation andconsents to proceed with the evaluation remotely. documented in this encounterChildren'S Hospital [facility]04-05-2024 History of Present illness Narrative* Kelsie Giraldo MD - 01/26/2024 8:00 AM EDT [...] changes daily. No issues with insertion. Supplier [place] [email or web address]. Denies infection since August 2023. S/S dark [...] and 60 ml after tube feeding completed 99551 mL 11 No current facility-administered medications for [...] nutrition Kelsie Giraldo MD documented in this encounterChildren'S Hospital Of [facility]11-17-2023 Note. MICRO - Microbiology PROCEDURE: Urine Culture [*1] SOURCE: Urine, Clean Catch BODY SITE: COLLECTED DATE/TIME: 09/07/2023 16:47 EST RECEIVED DATE/TIME: 09/07/2023 19:30 EST START DATE/TIME: 09/07/2023 19:30 EST FREE TEXT SOURCE: FINAL REPORTS Final Report [] Verified Date/Time/Personnel: 09/08/2023 14:43 EST >100,000 cfu/ml Multiple bacterial morphotypes present. Probable Contamination. Suggest recollection if clinically indicated. Performing Locations *1: This test was performed at: [facility], [address] [place] [address], [address] , [facility] [place] [facility] [place]08-28-2023 Instructions* Patient Instructions* Mando Gibbs MD - 08/28/2023 11:45 AM EST F/U in 1 yr or prn and monitor neurological exam with ISNCSCI exam documented in this encounterChildren'S Hospital Of [facility]11-06-2023 Miscellaneous Notes* Letter - Kelsie Giraldo MD - 08/28/2023 12:00 AM EST August 28, 2023 Nikita Gramajo IV, D.O. [address] [place] [address] NAME: MARCOS AGUIRRE CLINIC NO.: [id number] DATE OF SERVICE: 08/28/[address] Gramajo: Marcos Aguirre was seen in the Adult [...] Giraldo M.D. Date Dictated: 08/28/2023 Date Typed: [facility] 08/28/2023 JOB# [id number] Clinic note from myself and Dr. Gibbs dated August 25, 2023, labs from March 23, 2023, CT scan report from March 21, 2023. Please print up the EKG and send it to the actual tracing of the EKG to Dr. Gramajo. documented in this encounterChildren'S Hospital Of [facility]11-03-2023 History of Present illness Narrative* Mando Gibbs MD - 08/25/2023 9:25 AM EDT Images from the original note were not included. PM&R/SCI Medicine Attending Outpatient Note Name: Marcos Aguirre [id number] Date of Service: 08/25/23 Last seen 03/25/22 [...] emotion wheels and Comfort Inception cushion . Sales Development Executive is ChromaDex Date getting chair [address] [...] Injury Medicine Attending Physical Medicine & Rehabilitation [phone] documented in this encounterChildren'S Hospital Of [facility]11-03-2023 History of Present illness Narrative* Kelsie Giraldo [...] feedbags to g tube 30 per month [facility] Obdulia colostomy bags from [employer]- [...] baseline Kelsie Giraldo MD documented in this encounterChildren'S Hospital Of [facility]10-12-2023 Miscellaneous Notes* Telephone Encounter - Shyanne Bledsoe [...] date of : Yes Type of form: [facility] - Certification of Medical Necessity: Enteral and ParenteralNutrition Form received via: Fax When form is completed, fax form to [phone] Form has been forwarded to: Provider's mailbox. Provider name: Dr Abrahan Oconnor documented in this encounterChildren'S Hospital Of [facility]10-09-2023 Miscellaneous Notes* Telephone Encounter - Nikita Gauthier MD - 07/31/2023 4:38 PM EDT Discussed with equine internship. Equivalent tube feeding regamin is Vital 1.0 x 3 cartons mixed with 1 cup of water. Run at 85/hr Will have patient follow up with tube feeding field marketing specialist Lashon Islas. To schedule call: Call for F2F Call for virtual visit * Telephone Encounter - Nikita Gauthier MD - 07/31/2023 2:45 PM EDT Called mom to clarify nutrition needs. Currently getting 2 cartons vital 1.5 mixed with 2 cartons water overnight. Running at a rate of 85ml/hr. Unable to get vital 1.5 but vital 1.0 is available. documented in this encounterChildren'S Hospital Of [facility]08-16-2023 History of Present illness Narrative* Marifer Dowd [...] He had issues changing his G-tube in [place] so he was asked to come to [...] MD General Surgery, PGY-1 documented in this encounterChildren'S Hospital Of [facility]08-14-2023 Nurse Note* Amada Bella Ma - 06/05/2023 3:18 PM EDT What is the reason for your visit today? est Who is your referring physician? Dr. Dowd Are you having poor oral intake? NO Have you had unintentional weight loss of 15 lbs/7 Kg in the last 3-6 months? NO Bowels: regular Wound: clean & dry Temperature: No Drains: Yes catheter documented in this encounterChildren'S Hospital Of [facility]06-26-2023 History of Present illness Narrative* Marifer Dowd [...] 17, 2023 3:32 PM documented in this encounterChildren'S Hospital Of Columbus06-26-2023 History of Present illness Narrative* Kelsie Giraldo [...] skin changes on backside- reviewed images on [employer] phone. Looks like diaper rash. Advised A&D [...] in chair, NAD ABDOMEN: incision appears healed, waed taped in place GENITOURINARY: MALE EXAM: Not [...] appt. Kelsie Giraldo MD documented in this encounterChildren'S Hospital Of [facility]06-14-2023 Miscellaneous Notes* Telephone Encounter - Sabiha Mcarthur APRN.CNP - 04/05/2023 12:49 PM EDT See telephone encounter with Dr. Johnson. Sabiha Mcarthur APRN.KRISTI documented in this encounterChildren'S Hospital [facility]05-27-2023 [facility] Note [facility] 03-16-20[facility] History of Past illness Narrative* Problem Noted [...] of this encounter (statuses as of 04/05/2023) [facility] History of Past illness Narrative* Problem Noted [...] of this encounter (statuses as of 04/17/2023) [facility] History of Past illness Narrative* Problem Noted [...] of this encounter (statuses as of 04/18/2023) [facility] History of Past illness Narrative* Problem Noted [...] of this encounter (statuses as of 04/20/2023) [facility] History of Past illness Narrative* Problem Noted [...] of this encounter (statuses as of 06/08/2023) [facility] History of Past illness Narrative* Problem Noted [...] of this encounter (statuses as of 06/08/2023) [facility] History of Past illness Narrative* Problem Noted [...] of this encounter (statuses as of 08/02/2023) [facility] History of Past illness Narrative* Problem Noted [...] of this encounter (statuses as of 2023) [facility] History of Past illness Narrative* Problem Noted [...] of this encounter (statuses as of 08/26/2023) [facility] History of Past illness Narrative* Problem Noted [...] of this encounter (statuses as of 08/29/2023) [facility] History of Past illness Narrative* Problem Noted [...] of this encounter (statuses as of 08/29/2023) [facility] History of Past illness Narrative* Problem Noted [...] of this encounter (statuses as of 08/29/2023) [facility] History of Past illness Narrative* Problem Noted [...] of this encounter (statuses as of 01/04/2024) [facility] History of Past illness Narrative* Problem Noted [...] of this encounter (statuses as of 01/26/2024) [facility] History of Past illness Narrative* Problem Noted [...] of this encounter (statuses as of 01/27/2024) [facility] History of Past illness Narrative* Problem Noted [...] of this encounter (statuses as of 01/29/2024) [facility] of Past illness Narrative* Problem Noted [...] of this encounter (statuses as of 01/29/2024) [facility] History of Past illness Narrative* Problem Noted [...] of this encounter (statuses as of 02/04/2024) [facility] History of Past illness Narrative* Problem Noted [...] of this encounter (statuses as of 01/26/2024) [facility] History of Present illness Narrative* Vicki Augustine, PhD - 02/16/2023 4:00 PM EDT Behavioral Medicine Digestive Disease [facility] Surgery [place] Name: Marcos Aguirre MR#: [id number] Date: 02/16/2023 Time: hour Referred by: Dr. [...] that he could be seen again. Vicki Eldridge, Ph.D. documented in this encounterChildren'[facility] Instructions* Patient Instructions* Prince Vallejo APRN.HIDE CLEANER - 02/16/2023 12:54 PM EDT PATIENT PREOPERATIVE INSTRUCTIONS Marifer Dowd MD has scheduled you for your procedure at this surgery center: [facility] [place] [facility] Scheduling Office: [phone] --[address] [place] [address]. Please read below carefully for your personalized [...] Procedures: - YOU MUST HAVE A RESPONSIBLE PHYSICAL DESIGN ENGINEER TAKE YOU HOME. A B2B SALES EXECUTIVE OR BLOW MACHINE TENDER STARCH SPRAYING CANNOT BE MADE A RESPONSIBLE PHYSICAL DESIGN ENGINEER. - We recommend that a responsible [...] call the Monday before. Your surgeon s windows application packager will tell you what time to call the office. - If you have not reached the departmental windows application packager by 5 P.M., call [phone] after 5 P.M. the day before your surgery. Please be aware that emergency situations arise, which may delay or change your surgical time. If this happens, we will notify you as soon as possible and regret any inconvenience. If you already have an Advance Directive, please fax a copy to [phone] or email to for it to be [...] day. Prince Vallejo APRN.CNP documented in this encounterChildren'[facility] History and physical note * Prince Vallejo APRN.CNP - 02/16/2023 12:40 PM EDT HISTORY AND PHYSICAL EXAMINATION SERVICE DATE: 02/16/2023 SERVICE TIME: 1:24 PM PRIMARY CARE PHYSICIAN: Nikita Gramajo IV, DO REASON FOR VISIT: Marcos Aguirer is a 27 year old male who [...] of spina bifida, NIGEL, transverse colostomy, mitrofanoff, STRAIGHT TOOTH GEAR GENERATOR OPERATOR shunt. Scheduled for REVISION COLOSTOMY W/ REPAIR [...] hydrocephalus . No history of TIA's, stroke, ORACLE DATABASE MANAGER tumor, impaired sensorium, hemiplegia, paraplegia or quadraplegia. [...] requiring medication, no history of angina, CHF, [place], cardiac surgery or stents. Denies rest pain, [...] 356 QTC Calculation (Bazett) 378 Calculated P Sims 32 Calculated R Sims 58 Calculated T Sims 54 Impression NORMAL SINUS RHYTHM NORMAL ECG No results found for this or any previous visit (from the past 90333 hour(s)). Assessment There is no known pertinent [...] 3 liters of oxygen at night ) [id number] Score: [id number] Score: 0 ASA Class: 3 ANESTHESIA FINDINGS: [...] 12:38 PM PAGER/CONTACT #: documented in this encounterChildren'S [facility]04-[facility]-2023 History and physical note * Harry Shore MD - 02/16/2023 11:00 AM EDT COLORECTAL SURGERY Consultation February 14, 2023 Marcos Aguirre 27 year old This consult was requested by Dr. Dowd and my final recommendations will be communicated to the requesting health care provider by way of the shared medical record for internal providers or letter via the [employer] for external providers. Chief Complaint: consult for combo case History of Present Illness: Marcos Aguirre is a 27 year old year old male PMHx spina bifida, NIGEL, transverse colostomy, mitrofanoff, STRAIGHT TOOTH GEAR GENERATOR OPERATOR shunt here for discussion regarding abdominal wall [...] with leakage Changing appliance every 3-4 days STRAIGHT TOOTH GEAR GENERATOR OPERATOR shunt has been functioning well He eats [...] seen. Exam limited by severe scoliosis. A STRAIGHT TOOTH GEAR GENERATOR OPERATOR shunt on the left side is seen [...] 4. Gastrostomy tube exchange with new 18 Estonian 2.0 cm Lele-Sahni button 5. Modifier 22 for the patient's severe scoliosis, obesity, and multiple prior abdominal surgeries. 6. Modifier [address] Sheikh acting as assistant professor of drama. 01/03/20 Dr. Blackburn Right percutaneous nephrolithotomy >2 cm total stone burden Cystourethroscopy Laser litholapaxy >2.5 cm total stone burden Fluoroscopic interpretation 01/29/19 Dr. Sheikh- [facility] 1. Percutaneous endoscopic placement of gastrostomy tube (20 Estonian, depth 2 cm). 2. Limited exploratory laparotomy [...] No history of dysuria, frequency or incontinence GENERATION MECHANIC HELPER: NA MUSCULOSKELETAL: Negative for joint pain or [...] Level: 4 - Moderate documented in this encounterChildren'[facility]04-14-2023 Miscellaneous Notes* Telephone Encounter - Matthew Johnson MD - 02/03/2023 1:01 PM EDT Urology Telephone Note I spoke with patient's mother over the phone today. He is receiving gastric feeds from [facility], but they ran out of the feed he was previously taking. They have a similar alternative, and she wanted to know if this was acceptable. I explained that I am not a lacquer sprayer and that it would take too long to have him seen by [facility] and arrange home feed delivery, given his surgery isnext month. I recommended that he take the alternative feed from [facility] and try to get a hold of the nutritional team there. After his surgery in February, we will consult inpatient nutrition here to begin the transition to [facility]. She expressed understanding and agreement with the plan. Matthew Johnson Jr., MD Reconstructive Urology Fellow documented in this encounterChildren'S [facility]04-13-2023 Miscellaneous Notes* Telephone Encounter - Matthew Johnson MD - 02/02/2023 3:12 PM EDT Urology Telephone Note Attempted to call patient multiple times today but have not received an answer. Matthew Johnson Jr., MD Reconstructive Urology Fellow documented in this encounterChildren'[facility]02-27-2023 [facility] History of Present illness Narrative* Marifer Dowd MD - 12/19/2022 1:27 PM EST Here to discuss surgery. Complicated patient with spina bifida, NIGEL, transverse colostomy, mitrofanoff, STRAIGHT TOOTH GEAR GENERATOR OPERATOR shunt here for discussion regarding abdominal wall [...] 19, 2022 1:30 PM documented in this encounterChildren'S [facility]02-27-2023 Nurse Note* Soham Shawn - 12/19/2022 11:16 AM EST What is the reason for your visit today? Follow up Who is your referring physician? Dr. Dowd Are you having poor oral intake? NO Have you had unintentional weight loss of 15 lbs/7 Kg in the last 3-6 months? NO Bowels: regular Wound: clean & dry Temperature: No Drains: No documented in this encounterChildren'[facility]10-10-2022 [facility]10-10-2022 History of Present illness Narrative* Marifer Dowd MD - 08/01/2022 2:32 PM EDT I have seen and evaluated the patient and discussed the case with the resident physician. I agree with the assessment and plan as documented in the resident s note. Complicated situation with pleasant patient and family. History significant for spina bifida. Has Gtube, STRAIGHT TOOTH GEAR GENERATOR OPERATOR shunt, Mitrofanoff, end transverse colostomy. Very complicated [...] 01, 2022 2:59 PM documented in this encounterChildren'[facility]10-[facility]-2022 History and physical note * Eugenia Garcia [...] 01, 2022, 12:07 PM documented in this encounterChildren'[facility]10-[facility]-2022 Nurse Note* Stalin De La Cruz MA [...] Temperature: No Drains: No documented in this encounterChildren'S [facility]09-03-2022 Emergency department Note * Lashon Gonzalez RN - 06/25/2022 4:29 PM EDT Discharge instructions and medications reviewed with parents. Verbalized understanding. Denies any questions or concerns at this time. Pt discharged home in no acute distress at this time. [facility]09-03-2022 Emergency department Note* Lashon Gonzalez RN [...] MMK performed by Chris Cobb MD at [facility] OR ADENOIDECTOMY BLADDER SURGERY N/A 10/03/2016 VESICOLOTHOTOMY possible lithoclast performed by Chris Cobb MD at [facility] OR COLOSTOMY N/A 01/29/2019 COLOSTOMY performed by Perry Sheikh MD at [facility] OR GASTROSTOMY N/A 01/29/2019 ENDOSCOPIC GASTROSTOMY PERCUTANEOUS performed by Perry Sheikh MD at [facility] OR GASTROSTOMY 05/16/2019 gastrostomy tube removal performed by Perry Sheikh MD at [facility] OR HERNIA REPAIR HIP FUSION Right 05/16/2019 RIGHT HIP DISARTICULATION VERSUS CASTLE PROXIMAL FEMORAL RESECTION AND FLAP COVERAGE performed by Cruz Ramires MD at [facility] OR KIDNEY STONE SURGERY N/A 02/15/2018 CYSTOSCOPY WITH LITHOLAPAXY/VESICOLITHOTRIPSY/CYSTOLITHOPAXY & HOLMIUM LASER performed by Chris Cobb MD at [facility] OR LAMINECTOMY 05/24/2005 Untethering of spinal cord LAPAROTOMY N/A 11/04/2020 LAPAROTOMY, EXPLORATORY, POSSIBLE BOWEL RESECTION, POSSIBLE PARASTOMAL HERNIA REPAIR, POSSIBLE OSTOMY REVISION performed by Ronnie Mendez MD at [facility] OR LITHOTRIPSY N/A 12/21/2017 cystoscopy and Holmium laser lithotripsy of bladder calculi possible vesicolithotomy performed by Chris Cobb MD at [facility] OR MYELOMENINGOCELE REPAIR ORTHOPEDIC SURGERY 06/26/2007 I & D of spinal wound with DuraSeal control of spinal leak ORTHOPEDIC SURGERY 09/18/2007 Removal of distal end of both posterior spinal rods ORTHOPEDIC SURGERY 01/25/2008 Incision, debridement and drainage of spinal infection, closure over Tobramycin, calcium sulfate pellets OTHER SURGICAL HISTORY bowens stoma/ mitroffanof OTHER SURGICAL HISTORY vesicolothomy PICC PLACEMENT HI ANESTH,UGI ENDOSCOPY HI UROLOGY SURGERY PROCEDURE UNLISTED RECONSTRUCTIVE FLAP SURGERY 05/16/2019 EXCISION OF ISCHIAL PRESSURE ULCER WITH FLAP CLOSURE performed by Trent Issa MD at [facility] OR SPINAL FUSION 06/06/2007 RSF with instrumentation T2 to sacrum SPINAL FUSION 05/26/2010 Staged (single day) posterior fusion and anterior interbody fusion with instrumentation TONSILLECTOMY TONSILLECTOMY AND ADENOIDECTOMY UPPER GASTROINTESTINAL ENDOSCOPY N/A 06/20/2017 ENDOSCOPY UPPER (FLEXIBLE) with biopsies performed by Augustin Rey MD at [facility] OR VENTRICULOPERITONEAL SHUNT Pediatric History Patient [...] Communication Center Staff * documented in this encounterF[facility]09-03-2022 Emergency department Note* Lashon Gonzalez RN - 06/25/2022 4:25 PM EDT Resident at bedside further discussing hernia dx and providing education to patient and mom at thistime. Homegoing instructions and when to return to ED reviewed in detail. Mom and patient verbalized understanding. [facility]09-03-2022 Hospital Discharge instructions* Discharge Instructions* Laurent Puga MD - 06/25/2022 4:11 PM EDT Recommending monitoring for any changes to hernia or other symptoms associated with obstruction andreturning if present. Otherwise recommend establishing with adult General Surgery provider to evaluate hernia repair in the outpatient setting. documented in this encounterFayette County [facility] Hospital09-03-2022 Emergency department Note* Lashon Gonzalez RN - 06/25/2022 4:00 PM EDT Resident at bedside. [facility]09-03-2022 Physician Emergency department Note* Alina Tatum [...] MMK performed by Chris Cobb MD at [facility] OR ADENOIDECTOMY BLADDER SURGERY N/A 10/03/2016 VESICOLOTHOTOMY possible lithoclast performed by Chris Cobb MD at [facility] OR COLOSTOMY N/A 01/29/2019 COLOSTOMY performed by Perry Sheikh MD at [facility] OR GASTROSTOMY N/A 01/29/2019 ENDOSCOPIC GASTROSTOMY PERCUTANEOUS performed by Perry Sheikh MD at [facility] OR GASTROSTOMY 05/16/2019 gastrostomy tube removal performed by Perry Sheikh MD at [facility] OR HERNIA REPAIR HIP FUSION Right 05/16/2019 RIGHT HIP DISARTICULATION VERSUS CASTLE PROXIMAL FEMORAL RESECTION AND FLAP COVERAGE performed by Cruz Ramires MD at [facility] OR KIDNEY STONE SURGERY N/A 02/15/2018 CYSTOSCOPY WITH LITHOLAPAXY/VESICOLITHOTRIPSY/CYSTOLITHOPAXY & HOLMIUM LASER performed by Chris Cobb MD at [facility] OR LAMINECTOMY 05/24/2005 Untethering of spinal cord LAPAROTOMY N/A 11/04/2020 LAPAROTOMY, EXPLORATORY, POSSIBLE BOWEL RESECTION, POSSIBLE PARASTOMAL HERNIA REPAIR, POSSIBLE OSTOMY REVISION performed by Ronnie Mendez MD at [facility] OR LITHOTRIPSY N/A 12/21/2017 cystoscopy and Holmium laser lithotripsy of bladder calculi possible vesicolithotomy performed by Chris Cobb MD at [facility] OR MYELOMENINGOCELE REPAIR ORTHOPEDIC SURGERY 06/26/2007 I & D of spinal wound with DuraSeal control of spinal leak ORTHOPEDIC SURGERY 09/18/2007 Removal of distal end of both posterior spinal rods ORTHOPEDIC SURGERY 01/25/2008 Incision, debridement and drainage of spinal infection, closure over Tobramycin, calcium sulfate pellets OTHER SURGICAL HISTORY bowens stoma/ mitroffanof OTHER SURGICAL HISTORY vesicolothomy PICC PLACEMENT HI ANESTH,UGI ENDOSCOPY HI UROLOGY SURGERY PROCEDURE UNLISTED RECONSTRUCTIVE FLAP SURGERY 05/16/2019 EXCISION OF ISCHIAL PRESSURE ULCER WITH FLAP CLOSURE performed by Trent Issa MD at [facility] OR SPINAL FUSION 06/06/2007 RSF with instrumentation T2 to sacrum SPINAL FUSION 05/26/2010 Staged (single day) posterior fusion and anterior interbody fusion with instrumentation TONSILLECTOMY TONSILLECTOMY AND ADENOIDECTOMY UPPER GASTROINTESTINAL ENDOSCOPY N/A 06/20/2017 ENDOSCOPY UPPER (FLEXIBLE) with biopsies performed by Augustin Rey MD at [facility] OR VENTRICULOPERITONEAL SHUNT Pediatric History Patient [...] signed: 8:31 PM 06/25/22 Alina Tatum DO [facility] Work Phone: [phone]) 422-936609-03-2022 Emergency department Triage note* Lashon Hsu RN [...] sounds regular, lungs ctab, mmm, skin wpd. [facility]09-03-2022 Emergency department Note* Rhett Pride - 06/25/2022 2:18 PM EDT Bed: 03 Expected date: 06/25/22 Expected time: 12:56 PM Means of arrival: Car Comments: REF Sending MD: Dae SR Age/: 89 Chief Complaint: abdominal pain Call back?: no # to call back: Patient initials: D.D * Note entered by Communication Center Staff * [facility]08-28-2022 Emergency department Note* Marina Chun RN - 06/19/2022 2:40 PM EDT Pt discharged home per resident. [facility]08-28-2022 Emergency department Note* Marina Chun RN [...] obtain weight viabed scale. documented in this encounterFayette County [facility] Hospital08-28-2022 Hospital Discharge instructions* Discharge Instructions* Joseph Dolan DO - 06/19/2022 12:32 PM EDT Please call your GI doctor to be evaluated. Come back to the ED for new or worsening symptoms such as worsening vomiting, diarrhea, abdominal distension. * Attachments The following attachments cannot be sent through Care Everywhere. * Adult Advisor: Stomach Flu (Serbian) documented in this encounterFayette County Memorial Hospital08-28-2022 Emergency department Triage note* Lashon Garduno RN - 06/19/2022 10:55 AM EDT Alert and fully oriented 26 year old presenting with concern for his colostomy might be blocked and intermittent emesis since Monday. Also has a g-tube. Respirations easy and even. Belly soft and distended. Decreased output in colostomy bag. MMM. Cap refill <2 seconds. Please obtain weight viabed scale. [facility]06-07-2022 NoteHNO ID: [id number] Author: Kelsie Giraldo MD Service: ? Author Type: Physician Type: Progress Notes Filed: 03/29/2022 9:06 AM Note Text:[facility] Instructions* Patient Instructions* Mando Gibbs MD - 03/26/2022 9:06 AM EDT Consider EMG/NCS to assess for ulnar neuropathy at elbow. Elbow pad to cushion ulnar nerve on arm rest F/U as needed documented in this encounterChildren'[facility]06-[facility]-2022 [facility]-03[facility]2022 [facility]Fair[facility]06-03-2022 [facility]06-03-2022 History of Present illness Narrative* Mando Gibbs MD - 03/25/2022 11:21 AM EDT Images from the original note were not included. PM&R/SCI Medicine Attending Outpatient Note Name: Marcos Aguirre I was asked to evaluate (Marcos Sandoval) by (Dr Giraldo) for recommendations regarding management of his/her rehabilitation needs. My findings and recommendations will be communicated through the [facility]. Date of Service: 03/25/22 Chief [...] Surgical History Myelomengocele s/p repair Hydrocephalus s/p STRAIGHT TOOTH GEAR GENERATOR OPERATOR shunt Tethered Cord Syndrome s/p release Scoliosis [...] and myocardial Social History Vocation: works at [employer] Living Arrangements:famioly No Smoke, EtOh, Drugs ROS [...] emotion wheels and Comfort Inception cushion . Sales Development Executive is motion mobility Date getting chair 2018 [...] Injury Medicine Attending Physical Medicine & Rehabilitation [phone] documented in this encounterChildren'S [facility]06-03-2022 History of Present illness Narrative* Nikita Gauthier MD - 03/25/2022 10:00 AM EDT Spina Bifida Multidisciplinary Clinic Internal Medicine HPI: Marcos Aguirre is a 26 year old male who presents for spina bifida multidisciplinary clinic. PCP: Dr. Gramajo who recently reclocated--looking for a new PCP. 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 History of multiple pressure wounds with [...] which included preparing to see the patient, [id number] patient care, completing clinical documentation, obtaining and/or reviewing separately obtained history and performing a medically appropriate examination. Nikita Gauthier MD Associate Staff Physician Clinical Middle School Coachfield marketing specialist [facility] Internal Medicine Pediatrics [address] [place] [address] Office: documented in this encounterChildren'S Hospital [facility]06-03-2022 Miscellaneous Notes* Letter - Kelsie Giraldo MD - 03/25/2022 12:00 AM EDT March 29, 2022 Nikita Balderas M.D. NAME: MARCOS AGUIRRE CLINIC NO.: [id number] DATE OF SERVICE: 03/25/[address] Balderas: [...] was seen by Dr. Nikita Castro from [facility] who seemed to be fairly satisfied with how he was doing from nutritional standpoint.He did recommend nutritional consultation which can be done virtually to help manage issues pertaining to the tube feeds. He was also seen by our in flight refueling craftsman, Dr. Kang Gibbs, who recommended elbow pads. [...] Giraldo M.D. Date Dictated: 03/29/2022 Date Typed: [facility] 03/30/2022 JOB# [id number] clinic notes from myself, Dr. Castro, Dr. Flores dated March 25, 2022, ultrasound report dated March 25, 2022. documented in this encounterChildren'S [facility]01-24-2022 Miscellaneous Notes* Telephone Encounter - Batool Ruiz APRN.HIDE CLEANER - 11/15/2021 12:12 PM EST Please review pre-op urine culture report. Please advise. Culture Abnormal 50,000 - <100,000 CFU/ml Klebsiella pneumoniae P Culture Abnormal 50,000 - <100,000 CFU/ml Escherichia coli P Resulting Agency [facility] Susceptibility Klebsiella pneumoniae Escherichia coli MINIMUM [...] <=20 Susceptible <=20 Susceptible documented in this encounterChildren'S Hospital [facility]03-14-2020 History of Past illness Narrative* Problem Noted Date Resolved Date Sepsis 01/04/2020 01/08/2020 Last Assessment & Plan: Assessment: HDS, leukocytosis improving - Last urine culture was in 11/29/19 positive for pseudomonas susceptible to Zosyn - Received Ceftriaxone intraop PLAN: - Vanc/Zosyn/Fluc - ID consulted - BCx and UCx pending documented as of this encounter (statuses as of 03/26/2022) [facility] History of Past illness Narrative* Problem Noted Date Resolved Date Sepsis 01/04/2020 01/08/2020 Last Assessment & Plan: Assessment: HDS, leukocytosis improving - Last urine culture was in 11/29/19 positive for pseudomonas susceptible to Zosyn - Received Ceftriaxone intraop PLAN: - Vanc/Zosyn/Fluc - ID consulted - BCx and UCx pending documented as of this encounter (statuses as of 03/26/2022) [facility] History of Past illness Narrative* Problem Noted Date Resolved Date Sepsis 01/04/2020 01/08/2020 Last Assessment & Plan: Assessment: HDS, leukocytosis improving - Last urine culture was in 11/29/19 positive for pseudomonas susceptible to Zosyn - Received Ceftriaxone intraop PLAN: - Vanc/Zosyn/Fluc - ID consulted - BCx and UCx pending documented as of this encounter (statuses as of 03/27/2022) [facility] History of Past illness Narrative* Problem Noted Date Resolved Date Sepsis 01/04/2020 01/08/2020 Last Assessment & Plan: Assessment: HDS, leukocytosis improving - Last urine culture was in 11/29/19 positive for pseudomonas susceptible to Zosyn - Received Ceftriaxone intraop PLAN: - Vanc/Zosyn/Fluc - ID consulted - BCx and UCx pending documented as of this encounter (statuses as of 03/28/2022) [facility] History of Past illness Narrative* Problem Noted Date Resolved Date Sepsis 01/04/2020 01/08/2020 Last Assessment & Plan: Assessment: HDS, leukocytosis improving - Last urine culture was in 11/29/19 positive for pseudomonas susceptible to Zosyn - Received Ceftriaxone intraop PLAN: - Vanc/Zosyn/Fluc - ID consulted - BCx and UCx pending documented as of this encounter (statuses as of 03/29/2022) [facility] History of Past illness Narrative* Problem Noted Date Resolved Date Sepsis 01/04/2020 01/08/2020 Last Assessment & Plan: Assessment: HDS, leukocytosis improving - Last urine culture was in 11/29/19 positive for pseudomonas susceptible to Zosyn - Received Ceftriaxone intraop PLAN: - Vanc/Zosyn/Fluc - ID consulted - BCx and UCx pending documented as of this encounter (statuses as of 03/30/2022) [facility] History of Past illness Narrative* Problem Noted Date Resolved Date Sepsis 01/04/2020 01/08/2020 Last Assessment & Plan: Assessment: HDS, leukocytosis improving - Last urine culture was in 11/29/19 positive for pseudomonas susceptible to Zosyn - Received Ceftriaxone intraop PLAN: - Vanc/Zosyn/Fluc - ID consulted - BCx and UCx pending documented as of this encounter (statuses as of 08/01/2022) [facility] History of Past illness Narrative* Problem Noted Date Resolved Date Sepsis 01/04/2020 01/08/2020 Last Assessment & Plan: Assessment: HDS, leukocytosis improving - Last urine culture was in 11/29/19 positive for pseudomonas susceptible to Zosyn - Received Ceftriaxone intraop PLAN: - Vanc/Zosyn/Fluc - ID consulted - BCx and UCx pending documented as of this encounter (statuses as of 09/29/2022) [facility] History of Past illness Narrative* Problem Noted Date Resolved Date Sepsis 01/04/2020 01/08/2020 Last Assessment & Plan: Assessment: HDS, leukocytosis improving - Last urine culture was in 11/29/19 positive for pseudomonas susceptible to Zosyn - Received Ceftriaxone intraop PLAN: - Vanc/Zosyn/Fluc - ID consulted - BCx and UCx pending documented as of this encounter (statuses as of 12/19/2022) [facility] History of Past illness Narrative* Problem Noted Date Resolved Date Sepsis 01/04/2020 01/08/2020 Last Assessment & Plan: Assessment: HDS, leukocytosis improving - Last urine culture was in 11/29/19 positive for pseudomonas susceptible to Zosyn - Received Ceftriaxone intraop PLAN: - Vanc/Zosyn/Fluc - ID consulted - BCx and UCx pending documented as of this encounter (statuses as of 12/21/2022) [facility]2020 History of Past illness Narrative* Problem Noted Date Resolved Date Sepsis 01/04/2020 01/08/2020 Last Assessment & Plan: Assessment: HDS, leukocytosis improving - Last urine culture was in 11/29/19 positive for pseudomonas susceptible to Zosyn - Received Ceftriaxone intraop PLAN: - Vanc/Zosyn/Fluc - ID consulted - BCx and UCx pending documented as of this encounter (statuses as of 02/03/2023) [facility]03-14-2020 History of Past illness Narrative* Problem Noted Date Resolved Date Sepsis 01/04/2020 01/08/2020 Last Assessment & Plan: Assessment: HDS, leukocytosis improving - Last urine culture was in 11/29/19 positive for pseudomonas susceptible to Zosyn - Received Ceftriaxone intraop PLAN: - Vanc/Zosyn/Fluc - ID consulted - BCx and UCx pending documented as of this encounter (statuses as of 02/04/2023) [facility]03-14-2020 History of Past illness Narrative* Problem Noted Date Resolved Date Sepsis 01/04/2020 01/08/2020 Last Assessment & Plan: Assessment: HDS, leukocytosis improving - Last urine culture was in 11/29/19 positive for pseudomonas susceptible to Zosyn - Received Ceftriaxone intraop PLAN: - Vanc/Zosyn/Fluc - ID consulted - BCx and UCx pending documented as of this encounter (statuses as of 02/16/2023) [facility]03-14-2020 History of Past illness Narrative* Problem Noted Date Resolved Date Sepsis 01/04/2020 01/08/2020 Last Assessment & Plan: Assessment: HDS, leukocytosis improving - Last urine culture was in 11/29/19 positive for pseudomonas susceptible to Zosyn - Received Ceftriaxone intraop PLAN: - Vanc/Zosyn/Fluc - ID consulted - BCx and UCx pending documented as of this encounter (statuses as of 02/16/2023) [facility]14[facility]2020 History of Past illness Narrative* Problem Noted Date Resolved Date Sepsis 01/04/2020 01/08/2020 Last Assessment & Plan: Assessment: HDS, leukocytosis improving - Last urine culture was in 11/29/19 positive for pseudomonas susceptible to Zosyn - Received Ceftriaxone intraop PLAN: - Vanc/Zosyn/Fluc - ID consulted - BCx and UCx pending documented as of this encounter (statuses as of 02/17/2023) [facility] Appointment Date:11/09/2022 03:00:00 PM Scheduled Provider:NIKITA GRAMAJO DO [facility] Type: [facility] Evaluation + Plan note Future Appointments Appointment Date:01/01/2025 02:00:00 PM Scheduled Provider:NIKITA GRAMAJO DO Location:[facility] Appointment Type: [facility] Evaluation note* Diagnosis Neurogenic bladder Neurogenic bladder, NOS documented in this encounter [facility]* Diagnosis Paraplegia (HCC)- Primary Paraplegia Neurogenic bowel Neurogenic bladder Neurogenic bladder, NOS Urinary retention Retention of urine, unspecified 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 Ulnar neuropathy at elbow of right upper extremity documented [facility] this [facility]* Diagnosis Spina bifida of lumbosacral region with hydrocephalus (HCC)- Primary G tube feedings (HCC) Gastrostomy status Vitamin D deficiency Unspecified vitamin D deficiency Screening for lipoid disorders Screening for iron deficiency anemia documented in this encounter [facility]* Diagnosis Screening for genitourinary condition Screening for other and unspecified genitourinary condition [facility] Diagnosis Ulnar neuropathy of both upper extremities- Primary Lesion of ulnar nerve documented [facility] this encounter [facility]* Diagnosis Gastroenteritis- Primary Other and unspecified noninfectious gastroenteritis and colitis documented in this encounter [facility] note* Diagnosis Abdominal wall hernia- Primary Ventral hernia, unspecified, without mention of obstruction or gangrene documented in this encounter [facility] note* Diagnosis Parastomal hernia with obstruction and without gangrene- Primary Hernia of unspecified site, with obstruction documented [facility] this encounter [facility]* Diagnosis Parastomal hernia without obstruction or gangrene- Primary Hernia of unspecified site of abdominal cavity without mention of obstruction or gangrene documented in this encounter [facility]* Diagnosis Preoperative examination- Primary Preoperative examination, unspecified Parastomal hernia without obstruction or gangrene Hernia of unspecified site of abdominal cavity without mention of obstruction or gangrene Preoperative examination Preoperative examination, unspecified Parastomal hernia without obstruction or gangrene Hernia of unspecified site of abdominal cavity without mention of obstruction or gangrene [facility] Diagnosis Onset Date Resolution Status Chronic respiratory failure requiring treatment with nocturnal BPAP by mask acute Neuromuscular respiratory weakness acute Obstructive Sleep Apnea-Hypopnea Syndrome noneactive [facility] Work Phone: Evaluation note* Diagnosis Colostomy present [...] obstruction or gangrene [facility]* Diagnosis Pre-op evaluation- Primary Preoperative examination, [...] obstruction or gangrene [facility] Diagnosis Parastomal hernia without obstruction or gangrene- Primary Hernia of unspecified site of abdominal cavity without mention of obstruction or gangrene Preoperative examination Preoperative examination, unspecified Parastomal hernia without obstruction or gangrene Hernia of unspecified site of abdominal cavity without mention of obstruction or gangrene [facility] Diagnosis Cellulitis of buttock- Primary Cellulitis and abscess of buttock Suprapubic catheter (HCC) Other cystostomy status Neurogenic bladder Neurogenic bladder, NOS [facility] Diagnosis Post-operative state- Primary Other postprocedural status documented in this encounter [facility] note* Diagnosis Screening for genitourinary condition Screening for other and unspecified genitourinary condition documented in this encounter [facility] note* Diagnosis Encounter for follow-up- Primary documented in this encounter [facility]* Diagnosis Parastomal hernia without obstruction or gangrene- Primary Hernia of unspecified site of abdominal cavity without mention of obstruction or gangrene documented in this encounter [facility] note* Diagnosis G tube feedings (HCC)- Primary Gastrostomy status documented in this encounter [facility] note* Diagnosis Neurogenic bladder- Primary Neurogenic bladder, NOS Tachycardia Tachycardia, unspecified Recurrent UTI Urinary tract infection, site not specified Colostomy status ([facility]) Colostomy status documented in this encounter [facility]* Diagnosis Screening for genitourinary condition Screening for other and unspecified genitourinary condition documented in this encounter [facility] note* Diagnosis Paraplegia (HCC)- Primary Paraplegia Neurogenic bowel Neurogenic bladder Neurogenic bladder, NOS Urinary retention Retention of urine, unspecified documented in this encounter [facility] note* Diagnosis Neurogenic bladder- Primary Neurogenic bladder, NOS documented in this encounter [facility] note* Diagnosis 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 documented [facility] this [facility]* Diagnosis Neurogenic bladder Neurogenic bladder, NOS documented in this encounter [facility] note* Diagnosis Paraplegia (HCC)- Primary Paraplegia Open wound of tissue overlying spine, unspecified laterality, initial encounter Neurogenic bowel Neurogenic bladder Neurogenic bladder, NOS documented in this encounter [facility] note* Diagnosis Spina bifida, unspecified hydrocephalus presence, unspecified spinal region (HCC)- Primary G tube feedings (HCC) Gastrostomy status Screening for lipoid disorders Screening for iron deficiency anemia Vitamin D deficiency Unspecified vitamin D deficiency documented in this encounter [facility] note* Diagnosis Colostomy in place (HCC)- Primary Colostomy status documented in this encounter [facility] noteNo assessment information availableWPremier Health [facility] Work Phone: Evaluation note* Diagnosis Neurogenic bladder- Primary Neurogenic bladder, NOS documented in this encounter [facility] note* Diagnosis Renal stone- Primary Calculus of kidney Sepsis, due to unspecified organism, unspecified whether acute organ dysfunction present (HCC) G tube feedings (HCC) Gastrostomy status Spina bifida, unspecified hydrocephalus presence, unspecified spinal region ([facility]) Therapeutic drug monitoring Encounter [...] bifida, unspecified hydrocephalus presence, unspecified spinal region ([facility])- Primary documented in this encounter [facility] note* Diagnosis Renal stone- Primary Calculus of kidney Sepsis, due to unspecified organism, unspecified whether acute organ dysfunction present (HCC) G tube feedings (HCC) Gastrostomy status Spina bifida, unspecified hydrocephalus presence, unspecified spinal region ([facility]) Therapeutic drug monitoring Encounter [...] Spina bifida of lumbosacral region with hydrocephalus ([facility]) S/P ventriculoperitoneal shunt Presence of cerebrospinal fluid drainage device Neurogenic bladder Neurogenic bladder, NOS Presence of suprapubic catheter (HCC)- Primary Other cystostomy status Neurogenic bladder Neurogenic bladder, NOS documented in this encounter [facility] note* Diagnosis Renal stone- Primary Calculus of kidney Sepsis, due to unspecified organism, unspecified whether acute organ dysfunction present (HCC) G tube feedings (HCC) Gastrostomy status Spina bifida, unspecified hydrocephalus presence, unspecified spinal region ([facility]) Therapeutic drug monitoring Encounter for therapeutic drug monitoring Sepsis ([facility]) Pre-operative examination- Primary Preoperative [...] chronicity, unspecified location documented in this encounter [facility] note* Diagnosis Renal stone- Primary Calculus of kidney Sepsis, due to unspecified organism, unspecified whether acute organ dysfunction present (HCC) G tube feedings (HCC) Gastrostomy status Spina bifida, unspecified hydrocephalus presence, unspecified spinal region ([facility]) Therapeutic drug monitoring Encounter for therapeutic drug monitoring Sepsis ([facility]) Pre-operative examination- Primary Preoperative [...] skin Pre-op evaluation- Primary Preoperative examination, unspecified NIGLE (obstructive sleep apnea) Obstructive sleep apnea (adult) [...] Spina bifida of thoracolumbar region with hydrocephalus ([facility]) documented in this encounter [facility] note* Diagnosis Renal stone- Primary Calculus of kidney Sepsis, due to unspecified organism, unspecified whether acute organ dysfunction present (HCC) G tube feedings (HCC) Gastrostomy status Spina bifida, unspecified hydrocephalus presence, unspecified spinal region ([facility]) Therapeutic drug monitoring Encounter for therapeutic drug monitoring Sepsis ([facility]) Pre-operative examination- Primary Preoperative [...] Neurogenic bladder, NOS documented in this encounter [facility] note* Diagnosis Renal stone- Primary Calculus of kidney Sepsis, due to unspecified organism, unspecified whether acute organ dysfunction present (HCC) G tube feedings (HCC) Gastrostomy status Spina bifida, unspecified hydrocephalus presence, unspecified spinal region ([facility]) Therapeutic drug monitoring Encounter for therapeutic drug monitoring Sepsis ([facility]) Pre-operative examination- Primary Preoperative [...] unspecified genitourinary condition documented [facility] this [facility]* Diagnosis Renal stone- Primary Calculus of kidney Sepsis, due to unspecified organism, unspecified whether acute organ dysfunction present (HCC) G tube feedings (HCC) Gastrostomy status Spina bifida, unspecified hydrocephalus presence, unspecified spinal region ([facility]) Therapeutic drug monitoring Encounter for therapeutic drug monitoring Sepsis ([facility]) Pre-operative examination- Primary Preoperative examination, unspecified Bladder stone Other calculus in bladder Spina bifida of lumbosacral region with hydrocephalus ([facility]) Colostomy present ([facility]) G tube feedings ([facility]) Gastrostomy status Suprapubic catheter ([facility]) Other cystostomy status NIGEL (obstructive sleep apnea) Obstructive sleep apnea (adult) (pediatric) S/P ventriculoperitoneal shunt Presence of cerebrospinal fluid drainage device Chronic osteomyelitis of pelvic region, unspecified laterality ([facility]) Recurrent ventral hernia- Primary Incisional hernia without mention of obstruction or gangrene Preoperative examination Preoperative examination, unspecified Parastomal hernia without obstruction or gangrene Hernia of unspecified site of abdominal cavity without mention of obstruction or gangrene NIGEL (obstructive sleep apnea) Obstructive sleep apnea (adult) (pediatric) G tube feedings ([facility]) Gastrostomy status Acute post-operative [...] of obstruction or gangrene G tube feedings ([facility]) Gastrostomy status Colostomy present ([facility]) Spina bifida of lumbosacral region with hydrocephalus ([facility]) S/P ventriculoperitoneal shunt Presence of cerebrospinal fluid drainage device Neurogenic bladder Neurogenic bladder, NOS On tube feeding diet documented in this encounter [facility] note* Diagnosis Renal stone- Primary Calculus of kidney Sepsis, due to unspecified organism, unspecified whether acute organ dysfunction present ([facility]) G tube feedings ([facility]) Gastrostomy status Spina bifida, [...] vitamin D deficiency documented in this encounter [facility] course Narrative No data available for this section [facility] Hospital Discharge instructions No data available for this section [facility] Progress note No data available for this section [facility] Reason for referral (narrative)* Diagnostic Procedure Only (Routine) - Closed Specialty Diagnoses / Procedures Referred By Zuleima t Referred To Contact [facility] IMAGING Diagnoses Neurogenic bladder Procedures US KIDNEY/BLADDER US RETROPERITONEAL REAL TIME W/IMAGE COMPLETE Kelsie Giraldo MD [address] [place] [address] Us Imaging Referral ID Status Reason Start Date Expiration Date V isits Requested Visits Authorized [id number] Closed Auto-Generate d Referral 03/17/2022 10/22/2022 1 1 [facility] for referral (narrative)* Outpatient Procedure (Routine) - Pending Review Specialty Diagnoses / Procedures Referred By Zuleima nugent Referred To Contact [facility] Diagnoses Ulnar neuropathy of both upper extremities Procedures EMG(NEURO/NI) NERVE CONDUCTION STUDIES 9-10 STUDIES Kelsie Giraldo MD [address] [place] [address] [facility] [place] [address] [place] [address] Referral ID Status Reason Start Date Expiration Date Visits Requested Visits Authorized [id number] Pending Review Auto-Generat ed Referral 03/29/2022 03/29/2023 1 1 [facility] for referral (narrative)* Outpatient Procedure (Routine) - Pending Review Specialty Diagnoses / Procedures [facility] Diagnoses Preoperative examination Parastomal hernia without obstruction or gangrene Procedures ECG COMPLETE ECG ROUTINE ECG W/LEAST 12 LDS W/I&R Patricia Montalvo APRN.HIDE CLEANER [address] [id number] [facility] [address] [place] [address] Referral ID Status Reason Start Date Expiration Date Visits Requested Visits Authorized [id number] Pending Review Auto-Generat ed Referral 12/21/2022 12/21/2023 1 1 * Consult, Test, Treat (Routine) - Pending Review Specialty Diagnoses / Procedures Referred By Contac t Referred To Contact Diagnoses Preoperative examination Parastomal hernia without obstruction or gangrene Procedures CONSULT TO [facility] BE[facility]AL [facility]ICINE OFFICE/OUTPATIENT [facility] 60-74 MINUTES Patricia Montalvo APRN.CNP [address] [place] [id number] Referral ID Status Reason Start Date Expiration Date Visits Requested Visits Authorized [id number] Pending Review PCP Requested Referral 12/21/2022 12/21/2023 1 1 [facility] for referral (narrative)* Outpatient Procedure (Routine) - Closed Specialty Diagnoses / Procedures Referred By Contac t Referred To Contact [facility] Diagnoses Tachycardia Procedures ECG COMPLETE ECG ROUTINE ECG W/LEAST 12 LDS W/I&R Kelsie Giraldo MD [address] [place] [address] [facility] [address] [address] Referral ID Status Reason Start Date Expiration Date V isits Requested Visits Authorized [id number] Closed Auto-Generate d Referral 08/25/2023 08/24/2024 1 1 T [facility] for referral (narrative)* Diagnostic Procedure Only (Routine) - Pending Review Specialty Diagnoses / Procedures Referred By Contac t Referred To Contact [facility] IMAG[facility] Diagnoses Neurogenic bladder Procedures US KIDNEY/BLADDER US RETROPERITONEAL REAL TIME W/IMAGE COMPLETE Kelsie Giraldo MD [address] [address] [place] [address] Referral ID Status Reason Start Date Expiration Date Visits Requested Visits Authorized [id number] Pending Review Auto-Generat ed Referral 01/04/2024 02/02/2025 1 1 T [facility] for referral (narrative)* Diagnostic Procedure Only (Routine) - Closed Specialty Diagnoses / Procedures Referred By Contac t Referred To Contact [facility] IMAG[facility] Diagnoses Neurogenic bladder Procedures US KIDNEY/BLADDER US RETROPERITONEAL REAL TIME W/IMAGE COMPLETE Kelsie Giraldo MD [address] [address] [place] [address] Referral ID Status Reason Start Date Expiration Date V isits Requested Visits Authorized [id number] Closed Auto-Generate d Referral 01/04/2024 02/02/2025 1 1 [facility] for referral (narrative)No reason for referral information [facility]Ind[facility] Narrative* Diagnostic Procedure Only (Routine) - Closed Specialty Diagnoses / Procedures Referred By Contac t Referred To Contact [facility] IMAGING Diagnoses Neurogenic bladder Procedures US KIDNEY/BLADDER US RETROPERITONEAL REAL TIME W/IMAGE COMPLETE Kelsie Giraldo MD [address] [place] [address] Us Imaging Referral ID Status Reason Start Date Expiration Date V isits Requested Visits Authorized [id number] Closed Auto-Generate d Referral 03/17/2022 10/22/2022 1 1 [facility] for visit Narrative* Diagnostic Procedure Only (Routine) - Closed Specialty Diagnoses / Procedures Referred By Contac t Referred To Contact [facility] IMAG[facility] Diagnoses Neurogenic bladder Procedures US KIDNEY/BLADDER US RETROPERITONEAL REAL TIME W/IMAGE COMPLETE Kelsie Giraldo MD [address] [place] [address] Us Imaging [facility] Referral ID Status Reason Start Date Expiration Date V isits Requested Visits Authorized [id number] Closed Auto-Generate d Referral 01/04/2024 02/02/2025 1 1 [facility] for visit Narrative* Diagnostic Procedure Only (Routine) - Closed Specialty Diagnoses / Procedures Referred By Contac t Referred To Contact [facility] IMAGING Diagnoses Presence of suprapubic catheter (HCC) Neurogenic bladder Procedures US KIDNEY/BLADDER US RETROPERITONEAL REAL TIME W/IMAGE COMPLETE Kelsie Giraldo MD [address] [place] [address] Phone: tel: fax: [place] [phone] Referral ID Status Reason Start Date Expiration Date V isits Requested Visits Authorized [id number] Closed Auto-Generate d Referral 01/16/2025 02/01/2026 1 1 [facility] Advance Directives Documents on File Type Date 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 Advance Directive(s) 10/20/2021 2:00 PM Advance Directive(s) 01/01/2020 10:14 AM Advance Directive(s) 01/01/2020 11:51 AM Advance Directive(s) 01/01/2020 11:55 AM Advance Directive(s) 12/21/2019 9:06 AM Advance Directive(s) 11/28/2019 2:23 PM Documents on File Type Date 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 Advance Directive(s) 10/20/2021 2:00 PM Advance Directive(s) 01/01/2020 10:14 AM Advance Directive(s) 01/01/2020 11:51 AM Advance Directive(s) 01/01/2020 11:55 AM Advance Directive(s) 12/21/2019 9:06 AM Advance Directive(s) 11/28/2019 2:23 PM Documents on File Type Date 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 Advance Directive(s) 01/01/2020 11:55 AM Documents on File Type Date 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 Advance Directive(s) 01/01/2020 11:55 AM Advance Directive Response Recorded Date/ Time Advance Directives No January 08 015 10:28am Living Will No October 25 9 7:55pm Power of Stage Electrician No October 25 7:55pm Advance Directive Response Recorded Date/ Time Advance Directives No January 08 015 10:28am Living Will Yes February 20, 2024 8:42pm Power of Stage Electrician Yes February 19 8:42pm Name of Medical Power of Stage Electrician Billie Aguirre February 20, 2024 8:42pm Advance [...] (HCC) Procedures CONSULT TO PLASTIC SURGERY OFFICE/OUTPATIENT [facility] 60 MINUTES Mando Gibbs MD [address] [id number] Lillie Riggs MD [facility] [place] [address] Referral ID Status Reason Start Date Expiration Date Visits Requested Visits Authorized [id number] Authorized PCP Requested Referral 01/26/2024 01/25/2025 1 1 Specialty Diagnoses / Procedures Referred By Contac t Referred To Contact Nutrition Diagnoses G tube feedings (HCC) Procedures CONSULT TO NUTRITION THERAPY MEDICAL NUTRITION ASSMT&IVNTJ INDIV EACH 15 [place] MEDICAL NUTRITION ASSMT&IVNTJ INDIV EACH 15 [place] MEDICAL NUTRITION ASSMT&IVNTJ INDIV EACH 15 [place] MEDICAL NUTRITION ASSMT&IVNTJ INDIV EACH 15 [place] Nikita Gauthier MD [address], [place] [address] Referral ID Status Reason Start Date Expiration Date Visits Requested Visits Authorized [id number] Pending Review PCP Requested Referral 07/31/2023 07/30/2024 1 1 Specialty Diagnoses / Procedures Referred By Contac t Referred To Contact Colon and Rectal Surgery Diagnoses Parastomal hernia without obstruction or gangrene Procedures CONSULT TO COLO-RECTAL SURGERY OFFICE/OUTPATIENT [facility] 60-74 MINUTES Marifer Dowd MD [address] [id number] Harry Shore MD [address] [place] [address] Referral ID Status Reason Start Date Expiration Date Visits Requested Visits Authorized [id number] Pending Review PCP Requested Referral 12/19/2022 12/19/2023 [...] or prosecute any alcohol or drug abuse patient.[facility]In the event this information is protected by the Federal Confidentiality of Alcohol and Drug Abuse Patient Records regulations: The Federal rules restrict any use of the information to criminally investigate or prosecute any alcohol or drug abuse patient.[facility] ColumbusIn the event this information is protected by the Federal Confidentiality of Alcohol and Drug Abuse Patient Records regulations: The Federal rules restrict any use of the information to criminally investigate or prosecute any alcohol or drug abuse patient.[facility] ColumbusIn the event this information is protected by the Federal Confidentiality of Alcohol and Drug Abuse Patient Records regulations: The Federal rules restrict any use of the information to criminally investigate or prosecute any alcohol or drug abuse patient.[facility] ColumbusIn the event this information is protected by the Federal Confidentiality of Alcohol and Drug Abuse Patient Records regulations: The Federal rules restrict any use of the information to criminally investigate or prosecute any alcohol or drug abuse patient.[facility] ColumbusIn the event this information is protected by the Federal Confidentiality of Alcohol and Drug Abuse Patient Records regulations: The Federal rules restrict any use of the information to criminally investigate or prosecute any alcohol or drug abuse patient.[facility] ColumbusIn the event this information is protected by the Federal Confidentiality of Alcohol and Drug Abuse Patient Records regulations: The Federal rules restrict any use of the information to criminally investigate or prosecute any alcohol or drug abuse patient.[facility] ColumbusIn the event this information is protected by the Federal Confidentiality of Alcohol and Drug Abuse Patient Records regulations: The Federal rules restrict any use of the information to criminally investigate or prosecute any alcohol or drug abuse patient.[facility] ColumbusIn the event this information is protected by the Federal Confidentiality of Alcohol and Drug Abuse Patient Records regulations: The Federal rules restrict any use of the information to criminally investigate or prosecute any alcohol or drug abuse patient.[facility] ColumbusIn the event this information is protected by the Federal Confidentiality of Alcohol and Drug Abuse Patient Records regulations: The Federal rules restrict any use of the information to criminally investigate or prosecute any alcohol or drug abuse patient.[facility] ColumbusIn the event this information is protected by the Federal Confidentiality of Alcohol and Drug Abuse Patient Records regulations: The Federal rules restrict any use of the information to criminally investigate or prosecute any alcohol or drug abuse patient.[facility] ColumbusIn the event this information is protected by the Federal Confidentiality of Alcohol and Drug Abuse Patient Records regulations: The Federal rules restrict any use of the information to criminally investigate or prosecute any alcohol or drug abuse patient.[facility] ColumbusIn the event this information is protected by the Federal Confidentiality of Alcohol and Drug Abuse Patient Records regulations: The Federal rules restrict any use of the information to criminally investigate or prosecute any alcohol or drug abuse patient.[facility] ColumbusIn the event this information is protected by the Federal Confidentiality of Alcohol and Drug Abuse Patient Records regulations: The Federal rules restrict any use of the information to criminally investigate or prosecute any alcohol or drug abuse patient.[facility] ColumbusIn the event this information is protected by the Federal Confidentiality of Alcohol and Drug Abuse Patient Records regulations: The Federal rules restrict any use of the information to criminally investigate or prosecute any alcohol or drug abuse patient.[facility] ColumbusIn the event this information is protected by the Federal Confidentiality of Alcohol and Drug Abuse Patient Records regulations: The Federal rules restrict any use of the information to criminally investigate or prosecute any alcohol or drug abuse patient.[facility] ColumbusIn the event this information is protected by the Federal Confidentiality of Alcohol and Drug Abuse Patient Records regulations: The Federal rules restrict any use of the information to criminally investigate or prosecute any alcohol or drug abuse patient.[facility] ColumbusIn the event this information is protected by the Federal Confidentiality of Alcohol and Drug Abuse Patient Records regulations: The Federal rules restrict any use of the information to criminally investigate or prosecute any alcohol or drug abuse patient.[facility] ColumbusIn the event this information is protected by the Federal Confidentiality of Alcohol and Drug Abuse Patient Records regulations: The Federal rules restrict any use of the information to criminally investigate or prosecute any alcohol or drug abuse patient.[facility] ColumbusIn the event this information is protected by the Federal Confidentiality of Alcohol and Drug Abuse Patient Records regulations: The Federal rules restrict any use of the information to criminally investigate or prosecute any alcohol or drug abuse patient.[facility] ColumbusIn the event this information is protected by the Federal Confidentiality of Alcohol and Drug Abuse Patient Records regulations: The Federal rules restrict any use of the information to criminally investigate or prosecute any alcohol or drug abuse patient.[facility] ColumbusIn the event this information is protected by the Federal Confidentiality of Alcohol and Drug Abuse Patient Records regulations: The Federal rules restrict any use of the information to criminally investigate or prosecute any alcohol or drug abuse patient.[facility] ColumbusIn the event this information is protected by the Federal Confidentiality of Alcohol and Drug Abuse Patient Records regulations: The Federal rules restrict any use of the information to criminally investigate or prosecute any alcohol or drug abuse patient.[facility] ColumbusIn the event this information is protected by the Federal Confidentiality of Alcohol and Drug Abuse Patient Records regulations: The Federal rules restrict any use of the information to criminally investigate or prosecute any alcohol or drug abuse patient.[facility] ColumbusIn the event this information is protected by the Federal Confidentiality of Alcohol and Drug Abuse Patient Records regulations: The Federal rules restrict any use of the information to criminally investigate or prosecute any alcohol or drug abuse patient.[facility] ColumbusIn the event this information is protected by the Federal Confidentiality of Alcohol and Drug Abuse Patient Records regulations: The Federal rules restrict any use of the information to criminally investigate or prosecute any alcohol or drug abuse patient.[facility] ColumbusIn the event this information is protected by the Federal Confidentiality of Alcohol and Drug Abuse Patient Records regulations: The Federal rules restrict any use of the information to criminally investigate or prosecute any alcohol or drug abuse patient.[facility] ColumbusIn the event this information is protected by the Federal Confidentiality of Alcohol and Drug Abuse Patient Records regulations: The Federal rules restrict any use of the information to criminally investigate or prosecute any alcohol or drug abuse patient.[facility] ColumbusIn the event this information is protected by the Federal Confidentiality of Alcohol and Drug Abuse Patient Records regulations: The Federal rules restrict any use of the information to criminally investigate or prosecute any alcohol or drug abuse patient.[facility] ColumbusIn the event this information is protected by the Federal Confidentiality of Alcohol and Drug Abuse Patient Records regulations: The Federal rules restrict any use of the information to criminally investigate or prosecute any alcohol or drug abuse patient.[facility] ColumbusIn the event this information is protected by the Federal Confidentiality of Alcohol and Drug Abuse Patient Records regulations: The Federal rules restrict any use of the information to criminally investigate or prosecute any alcohol or drug abuse patient.[facility] ColumbusIn the event this information is protected by the Federal Confidentiality of Alcohol and Drug Abuse Patient Records regulations: The Federal rules restrict any use of the information to criminally investigate or prosecute any alcohol or drug abuse patient.[facility] ColumbusIn the event this information is protected by the Federal Confidentiality of Alcohol and Drug Abuse Patient Records regulations: The Federal rules restrict any use of the information to criminally investigate or prosecute any alcohol or drug abuse patient.[facility] ColumbusIn the event this information is protected by the Federal Confidentiality of Alcohol and Drug Abuse Patient Records regulations: The Federal rules restrict any use of the information to criminally investigate or prosecute any alcohol or drug abuse patient.[facility] ColumbusIn the event this information is protected by the Federal Confidentiality of Alcohol and Drug Abuse Patient Records regulations: The Federal rules restrict any use of the information to criminally investigate or prosecute any alcohol or drug abuse patient.[facility] ColumbusIn the event this information is protected by the Federal Confidentiality of Alcohol and Drug Abuse Patient Records regulations: The Federal rules restrict any use of the information to criminally investigate or prosecute any alcohol or drug abuse patient.[facility] ColumbusIn the event this information is protected by the Federal Confidentiality of Alcohol and Drug Abuse Patient Records regulations: The Federal rules restrict any use of the information to criminally investigate or prosecute any alcohol or drug abuse patient.[facility] ColumbusIn the event this information is protected by the Federal Confidentiality of Alcohol and Drug Abuse Patient Records regulations: The Federal rules restrict any use of the information to criminally investigate or prosecute any alcohol or drug abuse patient.[facility] ColumbusIn the event this information is protected by the Federal Confidentiality of Alcohol and Drug Abuse Patient Records regulations: The Federal rules restrict any use of the information to criminally investigate or prosecute any alcohol or drug abuse patient.[facility] ColumbusIn the event this information is protected by the Federal Confidentiality of Alcohol and Drug Abuse Patient Records regulations: The Federal rules restrict any use of the information to criminally investigate or prosecute any alcohol or drug abuse patient.[facility] ColumbusIn the event this information is protected by the Federal Confidentiality of Alcohol and Drug Abuse Patient Records regulations: The Federal rules restrict any use of the information to criminally investigate or prosecute any alcohol or drug abuse patient.[facility] ColumbusIn the event this information is protected by the Federal Confidentiality of Alcohol and Drug Abuse Patient Records regulations: The Federal rules restrict any use of the information to criminally investigate or prosecute any alcohol or drug abuse patient.[facility] ColumbusIn the event this information is protected by the Federal Confidentiality of Alcohol and Drug Abuse Patient Records regulations: The Federal rules restrict any use of the information to criminally investigate or prosecute any alcohol or drug abuse patient.[facility] ColumbusIn the event this information is protected by the Federal Confidentiality of Alcohol and Drug Abuse Patient Records regulations: The Federal rules restrict any use of the information to criminally investigate or prosecute any alcohol or drug abuse patient.[facility] ColumbusIn the event this information is protected by the Federal Confidentiality of Alcohol and Drug Abuse Patient Records regulations: The Federal rules restrict any use of the information to criminally investigate or prosecute any alcohol or drug abuse patient.[facility] ColumbusIn the event this information is protected by the Federal Confidentiality of Alcohol and Drug Abuse Patient Records regulations: The Federal rules restrict any use of the information to criminally investigate or prosecute any alcohol or drug abuse patient.[facility] ColumbusIn the event this information is protected by the Federal Confidentiality of Alcohol and Drug Abuse Patient Records regulations: The Federal rules restrict any use of the information to criminally investigate or prosecute any alcohol or drug abuse patient.[facility] ColumbusIn the event this information is protected by the Federal Confidentiality of Alcohol and Drug Abuse Patient Records regulations: The Federal rules restrict any use of the information to criminally investigate or prosecute any alcohol or drug abuse patient.[facility] Care Teams (unrecognized sec tion and content) Vp Scientific Relationship Specialty Start Date End Date Nikita Gramajo IV, MD [address] [place] [id number] PCP - General Family Practice 01/01/20 Vp Scientific Relationship Specialty Start Date End Date Nikita Gramajo IV, MD [address] [place] [address] 07954 PCP - General Family Practice 01/01/20 Vp Scientific Relationship Specialty Start Date End Date Nikita Gramajo IV, MD [address] [place] [address] 70473 PCP - General Family Practice 01/01/20 Vp Scientific Relationship Specialty Start Date End Date Nikita Gramajo IV, MD [address] [place] [address] 68986 PCP - General Family Practice 01/01/20 Vp Scientific Relationship Specialty Start Date End Date Nikita Gramajo IV, MD [address] [place] [address] 17621 PCP - General Family Practice 01/01/20 Vp Scientific Relationship Specialty Start Date End Date Nikita Gramajo IV, MD [address] [place] [address] 10506 PCP - General Family Practice 01/01/20 Vp Scientific Relationship Specialty Start Date End Date Nikita Gramajo DO [address] [place] [address] 27966 PCP - General Family Medicine 11/02/20 ([facility] [place] [address] 02/24/11 Vp Scientific Relationship Specialty Start Date End Date Nikita Gramajo DO [address] [place] [address] 06677 PCP - General Family Medicine 11/02/20 ([facility])[place] [phone] 02/24/11 Vp Scientific Relationship Specialty Start Date End Date Nikita Gramajo IV, MD [address] [place] [address] 65372 PCP - General Family Medicine 01/01/20 Vp Scientific Relationship Specialty Start Date End Date Nikita Gramajo IV, MD [address] [place] [address] PCP - General Family Medicine 01/01/20 Vp Scientific Relationship Specialty Start Date End Date Nikita Gramajo IV, MD [address] [place] [address] PCP - General Family Medicine 01/01/20 Vp Scientific Relationship Specialty Start Date End Date Nikita Gramajo IV, MD [address] [place] [address] PCP - General Family Medicine 01/01/20 Team [...] Nikita Gramajo DO Primary Care Provider Active Vp Scientific Relationship Specialty Start Date End Date Nikita Gramajo IV, DO [address] [place] [address] PCP - General Family Medicine 01/01/20 Vp Scientific Relationship Specialty Start Date End Date Nikita Gramajo IV, DO [address] [place] [address] PCP - General Family Medicine 01/01/20 Vp Scientific Relationship Specialty Start Date End Date Nikita Gramajo IV, DO [address] [place] [address] PCP - General Family Medicine 01/01/20 Vp Scientific Relationship Specialty Start Date End Date Nikita Gramajo IV, DO [address] [place] [address] PCP - General Family Medicine 01/01/20 Vp Scientific Relationship Specialty Start Date End Date Nikita Gramajo IV, [address] [place] [address] PCP - General Family Medicine 01/01/20 Vp Scientific Relationship Specialty Start Date End Date Nikita Gramajo IV [address] [place] [address] PCP - General Family Medicine 01/01/20 Vp Scientific Relationship Specialty Start Date End Date Nikita Gramajo IV [address] [place] [address] PCP - General Family Medicine 01/01/20 Vp Scientific Relationship Specialty Start Date End Date Nikita Gramajo IV, DO [address] [place] [address] 82068 PCP - General Family Medicine 01/01/20 Vp Scientific Relationship Specialty Start Date End Date Nikita Gramajo IV, DO [address] [place] [address] 30416 PCP - General Family Medicine 01/01/20 Vp Scientific Relationship Specialty Start Date End Date Nikita Gramajo IV, DO [address] [place] [address] 65338 PCP - General Family Medicine 01/01/20 Vp Scientific Relationship Specialty Start Date End Date Nikita Gramajo IV, DO [address] [place] [address] 68738 PCP - General Family Medicine 01/01/20 Vp Scientific Relationship Specialty Start Date End Date Nikita Gramajo IV, DO [address] [place] [address] 49123 PCP - General Family Medicine 01/01/20 Vp Scientific Relationship Specialty Start Date End Date Nikita Gramajo IV, DO [address] [place] [address] PCP - General Family Medicine 01/01/20 Vp Scientific Relationship Specialty Start Date End Date Nikita Gramajo IV, DO [address] [place] [address] 41584 PCP - General Family Medicine 01/01/20 Vp Scientific Relationship Specialty Start Date End Date Nikita Gramajo IV, DO [address] [place] [address] 92150 PCP - General Family Medicine 01/01/20 Vp Scientific Relationship Specialty Start Date End Date Nikita Gramajo IV, DO [address] [place] [address] 28299 PCP - General Family Medicine 01/01/[address] [place], [place] [id number] Registered Dietitian Nutrition 01/18/24 Vp Scientific Relationship Specialty Start Date End Date BeltranNikita priest IV, DO [address] [place] [address] 56239 PCP - General Family Medicine 01/01/[address] [place] [address] Registered Dietitian Nutrition 01/18/24 Vp Scientific Relationship Specialty Start Date End Date Nikita Gramajo IV, DO [address] [place] [address] 89745 PCP - General Family Medicine 01/01/[address] [place] [address] Registered Dietitian Nutrition 01/18/24 Vp Scientific Relationship Specialty Start Date End Date Nikita Gramajo IV, DO [address] [place] [address] PCP - General Family Medicine 01/01/[address] [place] [address] Registered Dietitian Nutrition 01/18/24 Vp Scientific Relationship Specialty Start Date End Date Nikita Gramajo IV, DO [facility] [place] [address] PCP - General Family Medicine 01/01/[address] [place] [address] Registered Dietitian Nutrition 01/18/24 Vp Scientific Relationship Specialty Start Date End Date Nikita Gramajo IV, DO [facility] [place] [address] PCP - General Family Medicine 01/01/[address] [place] [address] Registered Dietitian Nutrition 01/18/24 Team Status: Inactive Member Role Status Dates Dr. Nikita Gramajo DO Primary Care Provider Active Dr. Joseph Rios MD Emergency Provider Active Vp Scientific Relationship Specialty Start Date End Date Nikita Gramajo IV, DO [address] [place] [address] PCP - General Family Medicine 01/01/[address] [place] [address] Registered Dietitian Nutrition 01/18/24 Vp Scientific Relationship Specialty Start Date End Date Nikita Gramajo IV, DO [address] [place] [address] 27354 PCP - General Family Medicine 01/01/[address] [place] [address] Registered Dietitian Nutrition 01/18/24 Vp Scientific Relationship Specialty Start Date End Date Nikita Gramajo IV, DO [address] [place] [address] PCP - General Family Medicine 01/01/[address] [place] [address] Registered Dietitian Nutrition 01/18/24 Vp Scientific Relationship Specialty Start Date End Date Nikita Gramajo IV, DO [address] [place] [address] PCP - General Family Medicine 01/01/[address] [place] [address] Registered Dietitian Nutrition 01/18/24 Vp Scientific Relationship Specialty Start Date End Date Nikita Gramajo IV, DO [address] [place] [address] 24258 PCP - General Family Medicine 01/01/[address] [place] [address] Registered Dietitian Nutrition 01/18/24 Vp Scientific Relationship Specialty Start Date End Date Nikita Gramajo IV, DO [address] [place] [address] 78763 PCP - General Family Medicine 01/01/[address] [place] [address] Registered Dietitian Nutrition 01/18/24 Vp Scientific Relationship Specialty Start Date End Date Nikita Gramajo IV, DO [address] [place] [address] PCP - General Family Medicine 01/01/[address] [place] [address] Registered Dietitian Nutrition 01/18/24 Vp Scientific Relationship Specialty Start Date End Date Nikita Gramajo IV, DO [address] [place] [address] PCP - General Family Medicine 01/01/[address] [place] [address] Registered Dietitian Nutrition 01/18/24 Vp Scientific Relationship Specialty Start Date End Date Nikita Gramajo IV, DO [address] [place] [address] 50188 PCP - General Family Medicine 01/01/[address] [place], [place] [id number] Registered Dietitian Nutrition 01/18/24 Vp Scientific Relationship Specialty Start Date End Date Nikita Gramajo IV, DO [address] [place] [address] PCP - General Family Medicine 01/01/[address] [place] [address] Registered Dietitian Nutrition 01/18/24 Team [...] End: February 27, 2025 Alexa Peterson NP, [employer] Attending Provider Active Start: February 27, 2025 End: February 27, 2025 Team Status: Inactive Member Role/Relationship Status Dates Dr. Nikita Gramajo DO Primary Care Provider Active Start: June 05, 2025 End: June 05, 2025 Dr. Nikita Gramajo DO Referring Provider Active Start: June 05, 2025 End: June 05, 2025 Alexa Peterson NP, [employer] Attending Provider Active Start: June 05, 2025 End: June 05, 2025 Reason for Visit (unrecogniz ed section and content) Specialty Diagnoses / Procedures Referred By Zuleima nugent Referred To Contact PHYSICAL MEDICINE AND REHAB Diagnoses Spina Bifida Procedures Consult Nikita Gauthier MD [address] [place] [address] [facility] [address] [place] [address] Referral ID Status Reason Start Date Expiration Date Visits Requested Visits Authorized [id number] Pending Review OON/Self Pay Override 03/25/2022 06/23/2022 1 1 Specialty Diagnoses / Procedures Referred By Contac t Referred To Contact INTERNAL MEDICINE Diagnoses Spina Bifida Procedures UNLISTED THERAPEUTIC PROCEDURE SPECIFY Appointment Nikita Gauthier MD [address] [place] [address] [facility] [place] [address] [place] [address] Referral ID Status Reason Start Date Expiration Date Visits Requested Visits Authorized [id number] Pending Review OON/Self Pay Override 03/18/2022 06/16/2022 [...] gangrene Procedures CONSULT TO COLO-RECTAL SURGERY OFFICE/OUTPATIENT [facility] 60-74 MINUTES Marifer Dowd MD [address] [phone] Harry Shore MD [address] [phone] Referral ID Status Reason Start Date Expiration Date Visits Requested Visits Authorized [id number] Pending Review PCP Requested Referral 12/19/2022 12/19/2023 1 1 Reason Comments Pre-Op Visit Reason Comments Established Patient Reason Comments G-Tube Feeds Reason Comments Forms Reason Comments Follow Up Specialty Diagnoses / Procedures Referred By Contac t Referred To Contact Diagnoses Preoperative examination Parastomal hernia without obstruction or gangrene Procedures CONSULT TO [facility] BEHAVIORAL MEDICINE OFFICE/OUTPATIENT [facility] 60-74 MINUTES Patricia Montalvo APRN.HIDE CLEANER [address] [id number] Referral ID Status Reason Start Date Expiration Date V isits Requested Visits Authorized [id number] Closed PCP Requested Referral 12/21/2022 12/21/2023 1 1 Reason Comments Leg Weakness Reason Comments CMN forms 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 Reason Comments Spina Bifida (unrecognized sect ion and content) No Status Records FoundNo Status Records FoundNo Status Records FoundNo Status Records FoundNo Status Records Found INFORMATION SOURCE (unrecogn ized section and content) DATE CREATED AUTHOR 07/20/2022 [facility] DATE CREATED AUTHOR AUTHOR'S ORGANIZ ATION 03/18/2023 [facility] DATE CREATED AUTHOR AUTHOR'S ORGANIZ ATION 10/12/2023 [facility] DATE CREATED AUTHOR AUTHOR'S ORGANIZ ATION 08/07/2024 [facility] DATE CREATED AUTHOR AUTHOR'S ORGANIZ ATION 03/01/2025 [facility] Care Team (unrecognized sect ion and content) Care Team Personnel Name: NIKITA GRAMAJO DO Position: P4 Physician - Primary Care Member Role: Primary Care Physician Address: Address: [address] [place] [address] Care Team Related Persons Name: JAE AGUIRRE Name: CARLA WENDI Address: [address] Name: WENDI AGUIRRE Address: Home [address] [place] [address] Name: WENDI AGUIRRE Address: [place] [address] Goals (unrecognized section and content) Goals may [...] BE BASED ON THE PRIMARY CLINICAL RECORDS. [employer] provides no warranty or guarantee of the accuracy or completeness of information in this document.
[2025-06-07] MEDS: Cefepime HCl 2 GM in 0.9% Normal Saline (100mL MB+) 100 ML IV ×2 (12:32→21:29)
[2025-06-07] MEDS: 0.9% Normal Saline (1000mL) 1,000 ML 999 ML IV ×2 (13:34→15:46)
[2025-06-07] MEDS: Lactobacillis Acidophilus 1 CAP PO ×2 (13:38→21:28)
[2025-06-07 14:10] LABS: CPK Total, Creatine Kinase 96 U/L (24-195); Magnesium 2.1 mg/dL (1.5-2.2)
[2025-06-07 14:40] LABS: Prothrombin Time (Protime)PT. 16.3 SECONDS (11.7-14.9)
[2025-06-07 14:41] LABS: Partial Thromboplast Time 37.7 Seconds (24.1-36.2)
[2025-06-07] MEDS: FIBER GT (20:04)
[2025-06-07] MEDS: NUT TX IMPAIRED DIGEST GT (20:04)
[2025-06-07] MEDS: 0.9% Saline Lock 10 ML Syringe IV (21:29)
[2025-06-08] VITALS (12 sets, daily range): BP systolic 120–142; BP diastolic 81–96; PULSE 103–134; RESP 16–20; TEMP 36.9–39.5; O2SAT 94–100; BMI 22.0
[2025-06-08] MEDS: Lactobacillis Acidophilus 1 CAP PO ×3 (03:47→21:32)
[2025-06-08 06:04] LABS: Hematocrit 36.6 % (40-54); Hemoglobin 12.1 g/dL (13.0-16.5); Immature Granulocytes Count 0.080 X10^3/uL (0.0-0.0); Mean Corp Hgb Conc 33.1 g/dL (32-36); Mean Corpuscular Volume 84.7 fL (80-94); Mean Platelet Vol. 9.6 fl (6.2-12.0); NRBC Flagged by Analyzer 0 % (0-5); Platelet Count 209 K/mm3 (150-450); RBC Distribution Width CV 13.1 % (11.6-14.6); RBC Distribution Width SD 41.0 fl (35.1-43.9); Red Blood Count 4.32 M/mm3 (4.6-6.2); White Blood Count 12.9 K/mm3 (4.4-11.0)
[2025-06-08 06:47] LABS: Anion Gap 11 (5-15); BUN 9 mg/dL (4-19); BUN/Creat Ratio 15.5 RATIO (10-20); Calcium,Total 8.8 mg/dL (7.6-11.0); Carbon Dioxide 21.6 mmol/L (21.0-32.0); Chloride 102 mmol/L (98-108); Estimated Creatinine Clearance 134.56 ml/min (50-250); Glucose 216 mg/dL (70-99); Potassium 3.5 mmol/L (3.3-5.1)
--- NOTE | 2025-06-08 08:37 | PN.HOSP_ITS ---
Reason for Visit Chief Complaint: High grade fever 104.4 and low urine output. Objective Data Objective Data Vital Signs: Vital Signs Temp Pulse Resp BP Pulse Ox O2 Del Method O2 Flow Rate 98.8 F 117 H 16 142/90 H 100 Bi-pap 3 06/08/25 06:50 06/08/25 08:14 06/08/25 08:14 06/08/25 04:50 06/08/25 04:50 06/08/25 04:50 06/08/25 03:41 Oxygen Flow Rate (L/min) 3 Oxygen Delivery Method Bi-pap Weight: 116 lb 9.992 oz Body Mass Index (BMI) 22.0 Intake & Output: Intake and Output for Last 24 Hours 06/06/25 06/07/25 06/08/25 23:59 23:59 23:59 Intake Total 3560 / 3560 Output Total 550 / 800 675 / 675 Balance 3010 / 2760 -675 / -675 Lab / Micro Data 06/08/25 05:44 06/08/25 05:44 Labs: Laboratory Results - last 24 hr 06/07/25 10:30: WBC 19.4 H, RBC 4.98, Hgb 14.2, Hct 41.8, MCV 83.9, MCH 28.5, MCHC 34.0, RDW Std Deviation 40.2, RDW Coeff of Leroy 13.1, Plt Count 211, MPV 9.2, Immature Gran % (Auto) 0.600, Neut % (Auto) 86.1 H, Lymph % (Auto) 4.3 L, Mower % (Auto) 8.8, Eos % (Auto) 0.0, Baso % (Auto) 0.2, Absolute Neuts (auto) 16.7 H, Absolute Lymphs (auto) 0.83, Nucleated RBC % 0, Differential Comment SCANNED, Sodium 133, Potassium 3.5, Chloride 95 L, Carbon Dioxide 23.7, Anion Gap 14, BUN 13, Creatinine 0.83, Estim Creat Clear Calc 97.19, Est GFR (MDRD) Non-Af 123, BUN/Creatinine Ratio 15.7, Glucose 134 H, Lactic Acid < 1.0, Calcium 9.5, Magnesium 2.1, Total Bilirubin 0.78, AST 20, ALT 35, Alkaline Phosphatase 121, Total Creatine Kinase 96, Total Protein 8.0, Albumin 3.9, Globulin 4.1, Albumin/Globulin Ratio 1.0 06/07/25 10:50: Urine Color Yellow, Urine Clarity Cloudy, Urine pH 8.0, Ur Specific [place] 1.010, Urine Protein 100 H, Urine Glucose (UA) Normal, Urine Ketones 15 H, Urine Occult Blood 250 H, Urine Nitrite Positive H, Urine Bilirubin Negative, Urine Urobilinogen Normal, Ur Leukocyte Esterase 500 H, Urine RBC 5-10 SEEN, Urine WBC 50-100 SEEN, Ur Squamous Epith Cells 0-5 SEEN, Urine Bacteria 2+, Urine Mucus 0 SEEN 06/07/25 14:20: PT 16.3 H, INR 1.3, APTT 37.7 H 06/07/25 15:10: MRSA (PCR) Negative 06/08/25 05:44: WBC 12.9 H, RBC 4.32 L, Hgb 12.1 L, Hct 36.6 L, MCV 84.7, MCH 28.0, MCHC 33.1, RDW Std Deviation 41.0, RDW Coeff of Leroy 13.1, Plt Count 209, MPV 9.6, Immature Gran % (Auto) 0.600, Neut % (Auto) 84.2 H, Lymph % (Auto) 6.3 L, Mower % (Auto) 8.5, Eos % (Auto) 0.2, Baso % (Auto) 0.2, Absolute Neuts (auto) 10.9 H, Absolute Lymphs (auto) 0.81 L, Nucleated RBC % 0, Sodium 134, Potassium 3.5, Chloride 102, Carbon Dioxide 21.6, Anion Gap 11, BUN 9, Creatinine 0.61 L, Estim Creat Clear Calc 134.56, Est GFR (MDRD) Non-Af 135, BUN/Creatinine Ratio 15.5, Glucose 216 H, Calcium 8.8 Micro: Microbiology 06/07/25 10:50 Urine Catheter - Wdae Legionella Antigen - Final 06/07/25 10:50 Urine Catheter - Wade Streptococcus pneumoniae Antigen (M - Final 06/07/25 12:43 Mucosa - Nose SARS-CoV-2, Influenza & RSV (PCR) - Final Physical Exam Narrative Seen and examined Patient again had fever Tmax 102.5 about 3:41 AM. Physical exam General: Alert, Oriented x3, Cooperative. Short stature. BMI 21.1 kg/m?, 5'1 height HEENT: Atraumatic, PERRLA, EOMI, Normocephalic. Oral: Oral mucosa dry. No Gingival or Mucosal Lesions/ Ulcerations Neck: Very short and wide neck. Supple, No JVD, Negative Carotid Bruits Chest wall/Lungs: Surgical scar on the back, kyphoscoliosis. Air entry diminished in bilateral lung bases. No crepitation/rhonchi Cardiovascular: Sinus tachycardia, normal S1,S2, No M/G/R Abdomen: Bowel Sounds sluggish, soft, early colostomy. No rigidity. No distention : Indwelling catheter from umbilicus draining bladder. No renal angle tenderness. No suprapubic tenderness. 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 No Tenderness to Palpation of Joints or Extremities Spine: Thoracic surgical scar rafaela. Contracture in the back with, spinal deformity Neurological: No sensation below mid thoracic level. Complete neuroexam unobtainable with spina bifid deformity. Psych/Mental Status: Flat affect Assessment & Plan Assessment/Plan (1) Complicated urinary tract infection: PLAN: Plan This 29-year-old gentleman is being admitted high-grade fever, decreased urine output with suspicion of complicated UTI 1. SIRS criteria due to complicated UTI: Patient does not have features/signs and symptoms of sepsis at the time of admission. Patient has tachycardia, high- grade fever and leukocytosis IV fluid 1600 mL as per 30 mL/kg body weight. Previous urine culture grew Pseudomonas therefore started on IV cefepime 2 g every 12 hourly. Lactic acid normal. UA shows positive nitrite, LE 500, WBC 5200 cells, RBC 5-10 cells, 2+ bacteria. Squamous epithelial 0-5 cells. 06/08: Patient had fever 102.5 Fahrenheit. Discussed with ID. Patient on IV cefepime. ID consult tomorrow. Urine culture shows GNR 80,000?100,000 colonies. Blood culture pending. Repeat blood culture ordered. Urinary antigens, MRSA nasal screen are negative. Triple PCR for SARS-CoV-2, flu and RSV are negative 2. Chronic hypoxic and hypercarbic respiratory failure: Currently patient does not require oxygen. Pulse ox 95% on room air. Follows in pulmonary clinic, last visit on 06/05. Patient has noninvasive ventilator. 3. 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 4. Sinus tachycardia and hypertension: Currently blood pressure is in normal range. Hold antihypertensive medication. On Cardizem 240 mg daily, resume from tomorrow. Patient monitors heart rate at home and baseline is 80s to 90/min. 5. Bedbound, physical debility, RLE amputation, indwelling Wade catheter, colostomy: Nursing care. Patient mother is a primary care. 6. Hyperglycemia at 216: Accu-Chek before meals and at bedtime with Humalog sliding scale coverage and hypoglycemia protocol. A1c ordered for tomorrow a.m. No history of diabetes mellitus Living will/advanced directive/end of life care: Patient does not have living will or advanced directive. Patient does not endanger power of workers compensation defense attorney for health but her mother is primary caregiver. After discussion of benefits/risks procedures involved with full code, DNR CC arrest and DNR CC, the patient opted for full code. Patient's mother does want artificial life support including intubation, tube feed, ventilator and/chest compression, central venous catheter, vasopressor and DC shock if needed Total time spent in uzuf-le-awmy encounter in discussion of advanced directive 17 minutes. Microbiology Past 72 Hours 06/07/25 10:50 Urine Catheter - Catheter Urine Culture - Preliminary Gram negative susan 06/07/25 10:50 Urine Catheter - Wade Legionella Antigen - Final 06/07/25 10:50 Urine Catheter - Waed Streptococcus pneumoniae Antigen (M - Final 06/07/25 12:43 Mucosa - Nose SARS-CoV-2, Influenza & RSV (PCR) - Final Laboratory Results 06/07/25 10:30: Magnesium 2.1, Total Creatine Kinase 96 06/07/25 14:20: PT 16.3 H, INR 1.3, APTT 37.7 H 06/07/25 15:10: MRSA (PCR) Negative 06/08/25 05:44: WBC 12.9 H, RBC 4.32 L, Hgb 12.1 L, Hct 36.6 L, MCV 84.7, MCH 28.0, MCHC 33.1, RDW Std Deviation 41.0, RDW Coeff of Leroy 13.1, Plt Count 209, MPV 9.6, Immature Gran % (Auto) 0.600, Neut % (Auto) 84.2 H, Lymph % (Auto) 6.3 L, Mower % (Auto) 8.5, Eos % (Auto) 0.2, Baso % (Auto) 0.2, Absolute Neuts (auto) 10.9 H, Absolute Lymphs (auto) 0.81 L, Nucleated RBC % 0, Sodium 134, Potassium 3.5, Chloride 102, Carbon Dioxide 21.6, Anion Gap 11, BUN 9, Creatinine 0.61 L, Estim Creat Clear Calc 134.56, Est GFR (MDRD) Non-Af 135, BUN/Creatinine Ratio 15.5, Glucose 216 H, Calcium 8.8 Charges/Coding Addendum Addendum: Total time of the visit including total time spent in counseling or coordination of care, (more than 50% of the total time, spent in obtaining medical information from nurses and other ancillary care providers ,explaining to the patient about labs, imaging, diagnosis and management of active complex medical conditions), clinical update given that the patient's mother, primary caregiver and ID consult and discussion with Dr. Valencia, review of labs and imaging is 35 minutes. Visit Charges Inpatient E&M: 94593 Subs Hosp L3
[2025-06-08] MEDS: Cholecalciferol (VIT D3) 25 MCG TABLET (1,000 UNITS) PO (09:36)
[2025-06-08] MEDS: Cefepime HCl 2 GM in 0.9% Normal Saline (100mL MB+) 100 ML IV (09:42)
[2025-06-08] MEDS: 0.9% Saline Lock 10 ML Syringe IV (11:04)
[2025-06-08] MEDS: Piperacil/Tazobactam 3.375 GM in 0.9% Normal Saline (50mL MB+) 50 ML IV ×2 (14:26→21:32)
[2025-06-08] MEDS: NUT TX IMPAIRED DIGEST GT (19:46)
[2025-06-08] MEDS: FIBER GT (19:46)
[2025-06-09] VITALS (7 sets, daily range): BP systolic 113–129; BP diastolic 79–86; PULSE 93–115; RESP 18–20; TEMP 36.5–38.1; O2SAT 96–100; BMI 22.9
[2025-06-09 05:20] LABS: Hematocrit 36.2 % (40-54); Hemoglobin 11.8 g/dL (13.0-16.5); Immature Granulocytes Count 0.060 X10^3/uL (0.0-0.0); Mean Corp Hgb Conc 32.6 g/dL (32-36); Mean Corpuscular Volume 86.0 fL (80-94); Mean Platelet Vol. 10.0 fl (6.2-12.0); NRBC Flagged by Analyzer 0 % (0-5); Platelet Count 221 K/mm3 (150-450); RBC Distribution Width CV 13.5 % (11.6-14.6); RBC Distribution Width SD 42.2 fl (35.1-43.9); Red Blood Count 4.21 M/mm3 (4.6-6.2); White Blood Count 10.5 K/mm3 (4.4-11.0)
[2025-06-09 05:42] LABS: Anion Gap 11 (5-15); BUN 12 mg/dL (4-19); BUN/Creat Ratio 18.1 RATIO (10-20); Calcium,Total 8.7 mg/dL (7.6-11.0); Carbon Dioxide 23.0 mmol/L (21.0-32.0); Chloride 104 mmol/L (98-108); Estimated Creatinine Clearance 128.25 ml/min (50-250); Glucose 194 mg/dL (70-99); Potassium 3.6 mmol/L (3.3-5.1)
[2025-06-09] MEDS: Piperacil/Tazobactam 3.375 GM in 0.9% Normal Saline (50mL MB+) 50 ML IV ×3 (06:02→22:49)
[2025-06-09] MEDS: Lactobacillis Acidophilus 1 CAP PO ×2 (06:03→14:13)
[2025-06-09] MEDS: Cholecalciferol (VIT D3) 25 MCG TABLET (1,000 UNITS) PO (08:41)
[2025-06-09] MEDS: Senna/Docusate Sodium 1 Tablet 2 TABLET PO (08:41)
--- NOTE | 2025-06-09 10:25 | CT_ITS ---
PROCEDURE: ABDOMEN/PELVIS WITHOUT CONT 06/09/2025 REASON FOR EXAM: COMPLICATED UTI, STONE TECHNIQUE: ABDOMEN/PELVIS WITHOUT CONT Noncontrast technique limits evaluation of the abdominal and pelvic viscera. Coronal and Sagittal reconstruction series were provided. One or more dose reduction techniques were used (e.g., Automated exposure control, adjustment of the mA and/or kV according to patient size, use of iterative reconstruction technique). RADIATION DOSE SUMMARY: CTDlvol: 14 mGy DLP: 610 mGycm COMPARISON: None FINDINGS: Lung bases: Subsegmental atelectasis of the lung bases, [id number] largely related to patient's rotatory curvature of the spine. Liver: Grossly normal. Gallbladder: Cholecystectomy Spleen: Normal Pancreas: Normal Adrenals: Normal Kidneys: Left hydronephrosis. Punctate calculus in the renal pelvis just proximal to a larger obstructing calculus measuring 10.7 x 8.6 x 8.6 mm. Right mid to upper pole staghorn calculus is 21 x 13 x 12 mm. Another at the mid to lower pole is 18 x 13 x 20 mm. Bladder: A percutaneous cystostomy tube is in place. The bladder is empty except for two large calculi; one measures 36 x 24 x 21 mm, and the other is 34 by 15 x 26 mm. Reproductive Organs: Normal male. Bowel: The small caliber percutaneous gastrostomy tube near the antrum is in place. The stomach is otherwise normal. Small bowel is normal caliber. A colostomy is present in the right lower quadrant. High density is seen in the rectum. Appendix: Appendectomy Lymph nodes: None appear enlarged. Vasculature: Normal caliber Peritoneum / Retroperitoneum: TEACHING ASSOCIATE shunt tubing is seen along the left chest coiled in the right upper quadrant. Bones: Curvature spine with rotatory component directed to the right. Posterior fusion thoracolumbar spine with pedicle screws and rods on the right. 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 Mild thickening of the soft tissues overlying the buttock. No definite ulcer. CT/Abdomen/Pelvis without Cont IMPRESSION: 1. 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 Skin thickening posterior low back and overlying the right buttock region. No definite ulcer. Early stage decubitus ulcer is p otentially present. Recommend direct inspection. 2. Compressive atelectasis of the lung bases related to curvature. 3. TEACHING ASSOCIATE shunt, cholecystectomy, appendectomy, percutaneous gastrostomy, right lo wer quadrant colostomy, percutaneous cystostomy. 4. Staghorn calculi right kidney. No collecting system dilation. Obstructing UPJ calculus on the left. The calculus is large. Urology consultation suggested. 5. Bladder stones. Reading Location: [id number]
--- NOTE | 2025-06-09 12:00 | CASEMGMT ---
RN CM Face to Face with patient for initial transition planning/care coordination assessment. RN CM introduced self and role at [facility]. Patient lying in bed, alert and oriented. Patient willing to participate in assessment and is able to answer all questions appropriately. Care providers, pharmacy, and demographics verified. Strata: 3 PCP: Balbir Specialists: Dr. Uzair Parrish, reconstructive urology Preferred Pharmacy: Pt unsure and requested CM to call mother. Insurance: [employer] Prescription Benefit: yes Living Will/HPOA: yes, mother Wendi Lopez LNOK: mother and father Living Arrangements: Patient lives with parents in a split level home with platform lift to reach other floors, ramp to enter the home. Patient states his parents assists with ADLs Transportation: parents DME/HHC: Patient states he has shower chair, adjustable bed, wheelchair, Bipap, pulse ox, self lift and ivette lift, tubefeeds and supplies, home oxygen through [employer]. No previous SNF. Pt has had HHC previously but could not recall agency. Patient wishes to discharge home, will monitor for possible HHC for possible IV ATBs. Patient states he has no further needs or concerns at this time. CM to follow for discharge planning needs that may arise. Disposition Plan: Patient to discharge home with family support and follow-up plans in place. Will monitor for possible IV ATBs and HHC. Meg NAILS, RN, CM
--- NOTE | 2025-06-09 13:35 | CASEMGMT ---
RN CM called patient's mother to clarify discharge planning. Mother, Wendi, confirms [facility] at discharge. RN CM discussed possible IV ATBs and HHC at discharge and that cultures are pending. RN CM informed mother that HHC and infusion list would be provided and left in patient's room when she visits later. Mother voiced understanding and had no further questions or concerns. CM will continue to follow this patient and plan for a safe discharge.
--- NOTE | 2025-06-09 14:10 | PCM.CONS.GEN ---
Assessment & Plan Assessment/Plan (1) Complicated urinary tract infection: PLAN: Comp uti with staghorn in place. Cont meropenem. Urology consulted. 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 No pain in abd due to lack of sensation below his chest. Mother saw he had passed stones recently in his urine. Came to ED, admitted on meropenem, feeling better today. Full ROS performed and neg except as noted above. 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 Chronic respiratory failure with hypoxia and hypercapnia Neuromuscular respiratory weakness Chronic respiratory failure requiring treatment with nocturnal BPAP by mask Home Medications ?Medication ?Instructions ?Recorded ?Last Taken ?Type nut.tx impaired digestive See Rx Instructions feeding tube 12/01/22 Unknown History fxn-fiber 0.07 gram-1.5 kcal/mL .HS feed oral liquid (Vital Peptide 1.5 Eriberto) cholecalciferol (vitamin D3) 10 10 mcg PO QDAY 02/27/25 06/06/25 History mcg (400 unit) chewable tablet diltiazem HCl 240 mg capsule,24 240 mg PO QDAY 02/27/25 06/06/25 History hr,extended release acetaminophen 325 mg capsule 325 mg PO Q6H PRN fever or pain 06/07/25 06/07/25 History diphenhydramine HCl 25 mg tablet 25 mg PO QHS PRN allergies 06/08/25 Unknown History (Allergy (diphenhydramine)) Allergy/AdvReac Type Severity Reaction Status Date / Time bacitracin Allergy Mild unknown Verified 06/07/25 10:38 latex Allergy Unknown Verified 06/07/25 10:38 levofloxacin (Levofloxacin) Allergy Rash Verified 06/07/25 10:38 sulfamethoxazole (From Allergy Rash Verified 06/07/25 10:38 Bactrim) trimethoprim (From Bactrim) Allergy Rash Verified 06/07/25 10:38 Social History Smoking Status: Never smoker Physical Exam Const alert and no apparent distress General Appearance: cooperative HEENT head/scalp atraumatic Eyes PERRL and EOMs intact bilaterally Neck supple and No nodes Resp normal air movement and clear to auscultation bilaterally Cardio regular rate and regular rhythm GI soft to palpation, non-tender and non-distended Extremity Extremity Narrative: R AKA General Extremity: edema Skin no rashes or lesions noted Neuro CN's II-XII intact bilaterally Lab / Micro Data Attestation: I reviewed the patient's lab results. 06/09/25 04:22 06/09/25 04:22 Labs: Laboratory Results - last 24 hr 06/08/25 16:52: POC Glucose 104 06/08/25 21:26: POC Glucose 170 H 06/09/25 04:22: WBC 10.5, RBC 4.21 L, Hgb 11.8 L, Hct 36.2 L, MCV 86.0, MCH 28.0, MCHC 32.6, RDW Std Deviation 42.2, RDW Coeff of Leroy 13.5, Plt Count 221, MPV 10.0, Immature Gran % (Auto) 0.600, Neut % (Auto) 70.7 H, Lymph % (Auto) 13.8 L, [place] % (Auto) 12.5 H, Eos % (Auto) 2.0, Baso % (Auto) 0.4, Absolute Neuts (auto) 7.4, Absolute Lymphs (auto) 1.44, Nucleated RBC % 0, Sodium 138, Potassium 3.6, Chloride 104, Carbon Dioxide 23.0, Anion Gap 11, BUN 12, Creatinine 0.64 L, Estim Creat Clear Calc 128.25, Est GFR (MDRD) Non-Af 133, BUN/Creatinine Ratio 18.1, Glucose 194 H, Hemoglobin A1c 5.4, Calcium 8.7 06/09/25 06:00: POC Glucose 192 H 06/09/25 11:36: POC Glucose 119 H Micro: Microbiology 06/07/25 11:39 Blood Culture (Wb) - Right Hand Blood Culture - Preliminary No growth in 48 hours. 06/07/25 10:30 Blood Culture (Wb) - Anticubital Right Blood Culture - Preliminary No growth in 48 hours. 06/07/25 10:50 Urine Catheter - Catheter Urine Culture - Preliminary Proteus vulgaris Imaging Radiology Impression Abdomen/Pelvis CT 06/09/25 10:25 IMPRESSION: 1. 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 Skin thickening posterior low back and overlying the right buttock region. No definite ulcer. Early stage decubitus ulcer is potentially present. Recommend direct inspection. 2. Compressive atelectasis of the lung bases related to curvature. 3. BRAND MARKETING INTERN shunt, cholecystectomy, appendectomy, percutaneous gastrostomy, right lower quadrant colostomy, percutaneous cystostomy. 4. Staghorn calculi right kidney. No collecting system dilation. Obstructing UPJ calculus on the left. The calculus is large. Urology consultation suggested. 5. Bladder stones. Reading Location: [id number]
--- NOTE | 2025-06-09 14:51 | CASEMGMT ---
Discharge Planning A list of HH providers including quality and resource use data and consistent with the patient's preferred geographic region, medical needs, and insurance network was created in [employer] Guide.? This list was provided to the RN DESHAWN. Indira Roberts, Discharge Planning Asst.
--- NOTE | 2025-06-09 15:08 | CON.PCM_ITS ---
HPI Consult Data Date of Consult: 06/09/25 HPI Narrative Reason for Consultation: Complex infected stones HPI Narrative: SIERRA AGUIRRE, is a 29 M who presents To the hospital with a fever and chills he has spina bifida very distorted anatomy and has a suprapubic catheter in place he does a very large stones within the bladder next to the suprapubic catheter and he also has bilateral kidney stones in the left side he has a large UPJ stone that causing obstruction of the left kidney in the right side he has two large staghorn calculus. Given the complexity of the patient's anatomy we do not have interventional radiology available here at [facility] that can manage this complexity of care, therefore he will need to be transferred to a tertiary care center to manage the stones as both stones in the kidneys will be needed to access with a percutaneous approach and with current radiology here at [facility] would not be capable of placing appropriate access to both these kidney stones patient will need to be transferred to tertiary care center to manage these kidney stones, also needs to have bladder stone removed, call me w questions.. [facility] Medical History Colostomy hernia On mechanically assisted ventilation Chronic respiratory failure with hypoxia and hypercapnia Neuromuscular respiratory weakness Chronic respiratory failure requiring treatment with nocturnal BPAP by mask Home Medications ?Medication ?Instructions ?Recorded ?Last Taken ?Type nut.tx impaired digestive See Rx Instructions feeding tube 12/01/22 Unknown History fxn-fiber 0.07 gram-1.5 kcal/mL .HS feed oral liquid (Vital Peptide 1.5 Eriberto) cholecalciferol (vitamin D3) 10 10 mcg PO QDAY 5 06/06/25 History mcg (400 unit) chewable tablet diltiazem HCl 240 mg capsule,24 240 mg PO QDAY 5 06/06/25 History hr,extended release acetaminophen 325 mg capsule 325 mg PO Q6H PRN fever o r pain 06/07/25 06/07/25 History diphenhydramine HCl 25 mg tablet 25 mg PO QHS PRN tami rgies 06/08/25 Unknown History (Allergy (diphenhydramine)) Allergy/AdvReac Type Severity Reaction Status Date / Time bacitracin Allergy Mild unknown Verified 06/07/25 10:38 latex Allergy Unknown Verified 06/07/25 10:38 levofloxacin (Levofloxacin) Allergy Rash Verified 06/07/25 10:38 sulfamethoxazole (From Allergy Rash Verified 06/07/25 10:38 Bactrim) trimethoprim (From Bactrim) Allergy Rash Verified 06/07/25 10:38 Social History Smoking Status: Never smoker Lab / Micro Data 06/09/25 04:22 06/09/25 04:22 Labs: Laboratory Results - last 24 hr 06/08/25 16:52: POC Glucose 104 06/08/25 21:26: POC Glucose 170 H 06/09/25 04:22: WBC 10.5, RBC 4.21 L, Hgb 11.8 L, Hct 36.2 L, MCV 86.0, MCH 28.0, MCHC 32.6, RDW Std Deviation 42.2, RDW Coeff of Leroy 13.5, Plt Count 221, MPV 10.0, Immature Gran % (Auto) 0.600, Neut % (Auto) 70.7 H, Lymph % (Auto) 13.8 L, [place] % (Auto) 12.5 H, Eos % (Auto) 2.0, Baso % (Auto) 0.4, Absolute Neuts (auto) 7.4, Absolute Lymphs (auto) 1.44, Nucleated RBC % 0, Sodium 138, Potassium 3.6, Chloride 104, Carbon Dioxide 23.0, Anion Gap 11, BUN 12, C reatinine 0.64 L, Estim Creat Clear Calc 128.25, Est GFR (MDRD) Non-Af 133, BUN/Creatinine Ratio 18.1, Glucose 194 H, Hemoglobin A1c 5.4, Calcium 8.7 06/09/25 06:00: POC Glucose 192 H 06/09/25 11:36: POC Glucose 119 H Micro: Microbiology 06/07/25 11:39 Blood Culture (Wb) - Right Hand Blood Culture - Preliminary No growth in 48 hours. 06/07/25 10:30 Blood Culture (Wb) - Anticubital Right Blood Culture - Preliminary No growth in 48 hours. 06/07/25 10:50 Urine Catheter - Catheter Urine Culture - Preliminary Proteus vulgaris Imaging Radiology Impression Abdomen/Pelvis CT 06/09/25 10:25 IMPRESSION: 1. 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 Skin thickening posterior low back and overlying the right buttock region. No definite ulcer. Early stage decubitus ulcer is potentially present. Recommend direct inspection. 2. Compressive atelectasis of the lung bases related to curvature. 3. BRIDGE TOLL COLLECTOR shunt, cholecystectomy, appendectomy, percutaneous gastrostomy, right lower quadrant colostomy, percutaneous cystostomy. 4. Staghorn calculi right kidney. No collecting system dilation. Obstructing UPJ calculus on the left. The calculus is large. Urology consultation suggested. 5. Bladder stones. Reading Location: [id number]
--- NOTE | 2025-06-09 15:47 | PCM.PN.HOSP ---
Reason for Visit Chief Complaint: High grade fever 104.4 and low urine output. Objective Data Objective Data Vital Signs: Vital Signs Temp Pulse Resp BP Pulse Ox O2 Del Method O2 Flow Rate 100.4 F H 113 H 20 H 125/83 H 98 Bi-pap 3 06/09/25 14:10 06/09/25 14:10 06/09/25 14:10 06/09/25 14:10 06/09/25 14:10 06/09/25 14:10 06/09/25 14:10 Oxygen Flow Rate (L/min) 3 Oxygen Delivery Method Bi-pap Weight: 121 lb 7.595 oz Body Mass Index (BMI) 22.9 Intake & Output: Intake and Output for Last 24 Hours 06/07/25 06/08/25 06/09/25 23:59 23:59 23:59 Intake Total 3560 / 3560 450 / 450 400 / 400 Output Total 550 / 800 1425 / 1550 675 / 675 Balance 3010 / 2760 -975 / -1100 -275 / -275 Lab / Micro Data 06/09/25 04:22 06/09/25 04:22 Labs: Laboratory Results - last 24 hr 06/08/25 16:52: POC Glucose 104 06/08/25 21:26: POC Glucose 170 H 06/09/25 04:22: WBC 10.5, RBC 4.21 L, Hgb 11.8 L, Hct 36.2 L, MCV 86.0, MCH 28.0, MCHC 32.6, RDW Std Deviation 42.2, RDW Coeff of Leroy 13.5, Plt Count 221, MPV 10.0, Immature Gran % (Auto) 0.600, Neut % (Auto) 70.7 H, Lymph % (Auto) 13.8 L, [place] % (Auto) 12.5 H, Eos % (Auto) 2.0, Baso % (Auto) 0.4, Absolute Neuts (auto) 7.4, Absolute Lymphs (auto) 1.44, Nucleated RBC % 0, Sodium 138, Potassium 3.6, Chloride 104, Carbon Dioxide 23.0, Anion Gap 11, BUN 12, Creatinine 0.64 L, Estim Creat Clear Calc 128.25, Est GFR (MDRD) Non-Af 133, BUN/Creatinine Ratio 18.1, Glucose 194 H, Hemoglobin A1c 5.4, Calcium 8.7 06/09/25 06:00: POC Glucose 192 H 06/09/25 11:36: POC Glucose 119 H Micro: Microbiology 06/07/25 11:39 Blood Culture (Wb) - Right Hand Blood Culture - Preliminary No growth in 48 hours. 06/07/25 10:30 Blood Culture (Wb) - Anticubital Right Blood Culture - Preliminary No growth in 48 hours. 06/07/25 10:50 Urine Catheter - Catheter Urine Culture - Preliminary Proteus vulgaris 06/07/25 10:50 Urine Catheter - Wade Legionella Antigen - Final 06/07/25 10:50 Urine Catheter - Wade Streptococcus pneumoniae Antigen (M - Final 06/07/25 12:43 Mucosa - Nose SARS-CoV-2, Influenza & RSV (PCR) - Final Radiography Diagnostic Testing: Radiology Impression Abdomen/Pelvis CT 06/09/25 10:25 IMPRESSION: 1. 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 Skin thickening posterior low back and overlying the right buttock region. No definite ulcer. Early stage decubitus ulcer is potentially present. Recommend direct inspection. 2. Compressive atelectasis of the lung bases related to curvature. 3. SHOP TECH shunt, cholecystectomy, appendectomy, percutaneous gastrostomy, right lower quadrant colostomy, percutaneous cystostomy. 4. Staghorn calculi right kidney. No collecting system dilation. Obstructing UPJ calculus on the left. The calculus is large. Urology consultation suggested. 5. Bladder stones. Reading Location: [facility] Physical Exam Narrative Seen and examined Patient intermittently spikes fever. He was afebrile in the morning and yesterday evening but he had a temperature 100.4 F about [address] abdomen was done. ID consult. Urology consult. As per the mother he had passed a stone/stone debris couple days ago before admission. Physical exam General: Alert, Oriented x3, Cooperative. Short stature. BMI 21.1 kg/m?, 5'1 height HEENT: Atraumatic, PERRLA, EOMI, Normocephalic. Oral: Oral mucosa dry. No Gingival or Mucosal Lesions/ Ulcerations Neck: Very short and wide neck. Supple, No JVD, Negative Carotid Bruits Chest wall/Lungs: Surgical scar on the back, kyphoscoliosis. Air entry diminished in bilateral lung bases. No crepitation/rhonchi Cardiovascular: Sinus tachycardia, normal S1,S2, No M/G/R Abdomen: Bowel Sounds sluggish, soft, early colostomy. No rigidity. No distention : Indwelling catheter from umbilicus draining bladder. No renal angle tenderness. No suprapubic tenderness. 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 No Tenderness to Palpation of Joints or Extremities Spine: Thoracic surgical scar rafaela. Contracture in the back with, spinal deformity Neurological: No sensation below mid thoracic level. Complete neuroexam unobtainable with spina bifid deformity. Psych/Mental Status: Flat affect Assessment & Plan Assessment/Plan (1) Complicated urinary tract infection: PLAN: Plan This 29-year-old gentleman is being admitted high-grade fever, decreased urine output with suspicion of complicated UTI 1. SIRS criteria due to complicated UTI: Patient does not have features/signs and symptoms of sepsis at the time of admission. Patient has tachycardia, high-grade fever and leukocytosis IV fluid 1600 mL as per 30 mL/kg body weight. Previous urine culture grew Pseudomonas therefore started on IV cefepime 2 g every 12 hourly. Lactic acid normal. UA shows positive nitrite, LE 500, WBC 5200 cells, RBC 5-10 cells, 2+ bacteria. Squamous epithelial 0-5 cells. 06/08: Patient had fever 102.5 Fahrenheit. Discussed with ID. Patient on IV cefepime. ID consult tomorrow. Urine culture shows GNR 80,000?100,000 colonies. Blood culture pending. Repeat blood culture ordered. Urinary antigens, MRSA nasal screen are negative. Triple PCR for SARS-CoV-2, flu and RSV are negative 06/09: Patient was afebrile until 2 PM. Temperature 100.4 ?F. Leukocytosis resolved. Has neutrophilia. Electrolytes within normal limit. Kidney function creatinine normal. In the morning he had CT abdomen/pelvis which reported staghorn calculi right kidney, no collecting system dilatation. Left UPJ calculus large about 10.7 mm with left hydronephrosis. Percutaneous cystostomy tube, large calculi, 2 in number 3.6 cm and 3.4 cm. As per the mother it is not unusual for the patient to have kidney or bladder stones and it was removed by the [facility] urologist in the past. Patient was seen by ID who consulted urologist. Dr. Rooney called me that he needs bilateral nephrostomy tube and transfer to tertiary [facility]. Afterwards, I talked to patient's mother who who is to transfer to [facility] as his urologist is Dr. Uzair Wooten who had taken care of him in the past. I called [facility] transfer line and gave the initial clinical information in details. Waiting for the call back. Patient is going Proteus vulgaris, 80,000 -100,000 colonies. With patient is spiking grade fever, antibiotic was changed from cefepime to Zosyn yesterday. Seen by ID who recommended to continue IV Zosyn even though he wrote in the note that he was admitted on meropenem and to continue it. I called him and he said to continue Zosyn. 2. Chronic hypoxic and hypercarbic respiratory failure: Currently patient does not require oxygen. Pulse ox 95% on room air. Follows in pulmonary clinic, last visit on 06/05. Patient has noninvasive ventilator. 3. 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 4. Sinus tachycardia and hypertension: Currently blood pressure is in normal range. Hold antihypertensive medication. On Cardizem 240 mg daily, resume from tomorrow. Patient monitors heart rate at home and baseline is 80s to 90/min. 06/09: Patient is still has mild sinus tachycardia, heart rate fluctuates between 88-113/min. It is probably due to infection on baseline increased heart rate. 5. Bedbound, physical debility, RLE amputation, indwelling Wade catheter, colostomy: Nursing care. Patient mother is a primary care. 6. Hyperglycemia at 216: Accu-Chek before meals and at bedtime with Humalog sliding scale coverage and hypoglycemia protocol. A1c ordered for tomorrow a.m. No history of diabetes mellitus 06/09: Hyperglycemia, glucose 194. A1c 5.4%. Diabetes mellitus ruled out. Living will/advanced directive/end of life care: Patient does not have living will or advanced directive. Patient does not endanger power of patent attorney for health but her mother is primary caregiver. After discussion of benefits/risks procedures involved with full code, DNR CC arrest and DNR CC, the patient opted for full code. Patient's mother does want artificial life support including intubation, tube feed, ventilator and/chest compression, central venous catheter, vasopressor and DC shock if needed Total time spent in [id number] encounter in discussion of advanced directive 17 minutes. Microbiology Past 72 Hours 06/07/25 11:39 Blood Culture (Wb) - Right Hand Blood Culture - Preliminary No growth in 48 hours. 06/07/25 10:30 Blood Culture (Wb) - Anticubital Right Blood Culture - Preliminary No growth in 48 hours. 06/07/25 10:50 Urine Catheter - Catheter Urine Culture - Preliminary Proteus vulgaris 06/07/25 10:50 Urine Catheter - Wade Legionella Antigen - Final 06/07/25 10:50 Urine Catheter - Wade Streptococcus pneumoniae Antigen (M - Final 06/07/25 12:43 Mucosa - Nose SARS-CoV-2, Influenza & RSV (PCR) - Final Laboratory Results 06/08/25 16:52: POC Glucose 104 06/08/25 21:26: POC Glucose 170 H 06/09/25 04:22: WBC 10.5, RBC 4.21 L, Hgb 11.8 L, Hct 36.2 L, MCV 86.0, MCH 28.0, MCHC 32.6, RDW Std Deviation 42.2, RDW Coeff of Leroy 13.5, Plt Count 221, MPV 10.0, Immature Gran % (Auto) 0.600, Neut % (Auto) 70.7 H, Lymph % (Auto) 13.8 L, [place] % (Auto) 12.5 H, Eos % (Auto) 2.0, Baso % (Auto) 0.4, Absolute Neuts (auto) 7.4, Absolute Lymphs (auto) 1.44, Nucleated RBC % 0, Sodium 138, Potassium 3.6, Chloride 104, Carbon Dioxide 23.0, Anion Gap 11, BUN 12, Creatinine 0.64 L, Estim Creat Clear Calc 128.25, Est GFR (MDRD) Non-Af 133, BUN/Creatinine Ratio 18.1, Glucose 194 H, Hemoglobin A1c 5.4, Calcium 8.7 06/09/25 06:00: POC Glucose 192 H 06/09/25 11:36: POC Glucose [address] abdomen pelvis 1. 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 Skin thickening posterior low back and overlying the right buttock region. No definite ulcer. Early stage decubitus ulcer is potentially present. Recommend direct inspection. 2. Compressive atelectasis of the lung bases related to curvature. 3. SHOP TECH shunt, cholecystectomy, appendectomy, percutaneous gastrostomy, right lower quadrant colostomy, percutaneous cystostomy. 4. Staghorn calculi right kidney. No collecting system dilation. Obstructing UPJ calculus on the left. The calculus is large. Urology consultation suggested. 5. Bladder stones. Charges/Coding Addendum Addendum: Total time of the visit including total time spent in counseling or coordination of care, (more than 50% of the total time, spent in obtaining medical information from nurses and other ancillary care providers ,explaining to the patient about labs, imaging, diagnosis and management of active complex medical conditions), discussion with ID and urologist, discussion with transfer coordination and [facility] physicians, review of labs and imaging is 45 minutes. Visit Charges Inpatient E&M: 37776 Subs Hosp L3
--- NOTE | 2025-06-09 16:40 | PCM.DC.SUM ---
Providers Date of Admission: 06/07/25 Date of Discharge: 06/09/25 Primary Care Physician: Dr. Huan Mcgregor, Consultations 06/08/25 08:56 Consult: Infectious Disease Routine Consulting Provider: Yaya Valencia Reason for Consult: high grade fever, source unclear, suspected UTI, compromised/debility EMERGENT Consult: No Notified: Yes Date Notified: 06/08/25 Time Notified: 08:56 Method of Notification: Text 06/09/25 11:57 Consult: Urology Routine Consulting Provider: Agusto Rooney Reason for Consult: uti, staghorn calculus EMERGENT Consult: No Notified: Yes Date Notified: 06/09/25 Time Notified: 12:10 Method of Notification: Verbal Reason For Visit: UTI SUSPICION OF UTI Diagnosis Discharge Diagnosis (1) Complicated urinary tract infection: Status: Acute Code(s): N39.0 - Urinary tract infection, site not specified Plan This 29-year-old gentleman is being admitted high-grade fever, decreased urine output with suspicion of complicated UTI 1. SIRS criteria due to complicated UTI: Patient does not have features/signs and symptoms of sepsis at the time of admission. Patient has tachycardia, high-grade fever and leukocytosis IV fluid 1600 mL as per 30 mL/kg body weight. Previous urine culture grew Pseudomonas therefore started on IV cefepime 2 g every 12 hourly. Lactic acid normal. UA shows positive nitrite, LE 500, WBC 5200 cells, RBC 5-10 cells, 2+ bacteria. Squamous epithelial 0-5 cells. 06/08: Patient had fever 102.5 Fahrenheit. Discussed with ID. Patient on IV cefepime. ID consult tomorrow. Urine culture shows GNR 80,000?100,000 colonies. Blood culture pending. Repeat blood culture ordered. Urinary antigens, MRSA nasal screen are negative. Triple PCR for SARS-CoV-2, flu and RSV are negative 06/09: Patient was afebrile until 2 PM. Temperature 100.4 ?F. Leukocytosis resolved. Has neutrophilia. Electrolytes within normal limit. Kidney function creatinine normal. In the morning he had CT abdomen/pelvis which reported staghorn calculi right kidney, no collecting system dilatation. Left UPJ calculus large about 10.7 mm with left hydronephrosis. Percutaneous cystostomy tube, large calculi, 2 in number 3.6 cm and 3.4 cm. As per the mother it is not unusual for the patient to have kidney or bladder stones and it was removed by the [facility] urologist in the past. Patient was seen by ID who consulted urologist. Dr. Rooney called me that he needs bilateral nephrostomy tube and transfer to tertiary [facility]. Afterwards, I talked to patient's mother who who is to transfer to [facility] as his urologist is Dr. Uzair Wooten who had taken care of him in the past. I called [facility] transfer line and gave the initial clinical information in details. Waiting for the call back. Patient is going Proteus vulgaris, 80,000 -100,000 colonies. With patient is spiking grade fever, antibiotic was changed from cefepime to Zosyn yesterday. Seen by ID who recommended to continue IV Zosyn even though he wrote in the note that he was admitted on meropenem and to continue it. I called him and he said to continue Zosyn. [facility] commercial coordinator called me that patient might get transferred soon and might need ureteric stent in the evening. Therefore make the patient NPO. Patient diet status is n.p.o., communicated to the charge nurse. 2. Chronic hypoxic and hypercarbic respiratory failure: Currently patient does not require oxygen. Pulse ox 95% on room air. Follows in pulmonary clinic, last visit on 06/05. Patient has noninvasive ventilator. 3. 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 4. Sinus tachycardia and hypertension: Currently blood pressure is in normal range. Hold antihypertensive medication. On Cardizem 240 mg daily, resume from tomorrow. Patient monitors heart rate at home and baseline is 80s to 90/min. 06/09: Patient is still has mild sinus tachycardia, heart rate fluctuates between 88-113/min. It is probably due to infection on baseline increased heart rate. 5. Bedbound, physical debility, RLE amputation, indwelling Wade catheter, colostomy: Nursing care. Patient mother is a primary care. 6. Hyperglycemia at 216: Accu-Chek before meals and at bedtime with Humalog sliding scale coverage and hypoglycemia protocol. A1c ordered for tomorrow a.m. No history of diabetes mellitus 06/09: Hyperglycemia, glucose 194. A1c 5.4%. Diabetes mellitus ruled out. Living will/advanced directive/end of life care: Patient does not have living will or advanced directive. Patient does not endanger power of germination worker for health but her mother is primary caregiver. After discussion of benefits/risks procedures involved with full code, DNR CC arrest and DNR CC, the patient opted for full code. Patient's mother does want artificial life support including intubation, tube feed, ventilator and/chest compression, central venous catheter, vasopressor and DC shock if needed Microbiology Past 72 Hours 06/07/25 11:39 Blood Culture (Wb) - Right Hand Blood Culture - Preliminary No growth in 48 hours. 06/07/25 10:30 Blood Culture (Wb) - Anticubital Right Blood Culture - Preliminary No growth in 48 hours. 06/07/25 10:50 Urine Catheter - Catheter Urine Culture - Preliminary Proteus vulgaris 06/07/25 10:50 Urine Catheter - Wade Legionella Antigen - Final 06/07/25 10:50 Urine Catheter - Wade Streptococcus pneumoniae Antigen (M - Final 06/07/25 12:43 Mucosa - Nose SARS-CoV-2, Influenza & RSV (PCR) - Final Laboratory Results 06/08/25 16:52: POC Glucose 104 06/08/25 21:26: POC Glucose 170 H 06/09/25 04:22: WBC 10.5, RBC 4.21 L, Hgb 11.8 L, Hct 36.2 L, MCV 86.0, MCH 28.0, MCHC 32.6, RDW Std Deviation 42.2, RDW Coeff of Leroy 13.5, Plt Count 221, MPV 10.0, Immature Gran % (Auto) 0.600, Neut % (Auto) 70.7 H, Lymph % (Auto) 13.8 L, [place] % (Auto) 12.5 H, Eos % (Auto) 2.0, Baso % (Auto) 0.4, Absolute Neuts (auto) 7.4, Absolute Lymphs (auto) 1.44, Nucleated RBC % 0, Sodium 138, Potassium 3.6, Chloride 104, Carbon Dioxide 23.0, Anion Gap 11, BUN 12, Creatinine 0.64 L, Estim Creat Clear Calc 128.25, Est GFR (MDRD) Non-Af 133, BUN/Creatinine Ratio 18.1, Glucose 194 H, Hemoglobin A1c 5.4, Calcium 8.7 06/09/25 06:00: POC Glucose 192 H 06/09/25 11:36: POC Glucose [address] abdomen pelvis 1. 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 Skin thickening posterior low back and overlying the right buttock region. No definite ulcer. Early stage decubitus ulcer is potentially present. Recommend direct inspection. 2. Compressive atelectasis of the lung bases related to curvature. 3. ATTRACTION WORKER shunt, cholecystectomy, appendectomy, percutaneous gastrostomy, right lower quadrant colostomy, percutaneous cystostomy. 4. Staghorn calculi right kidney. No collecting system dilation. Obstructing UPJ calculus on the left. The calculus is large. Urology consultation suggested. 5. Bladder stones. Medications at Discharge Home Medications nut.tx impaired digestive fxn-fiber 0.07 gram-1.5 kcal/mL oral liquid (Vital Peptide 1.5 Eriberto) See Rx Instructions feeding tube .HS feed 12/01/22 cholecalciferol (vitamin D3) 10 mcg (400 unit) chewable tablet 10 mcg PO QDAY 02/27/25 diltiazem HCl 240 mg capsule,24 hr,extended release 240 mg PO QDAY 02/27/25 acetaminophen 325 mg capsule 325 mg PO Q6H PRN fever or pain 06/07/25 diphenhydramine HCl 25 mg tablet (Allergy (diphenhydramine)) 25 mg PO QHS PRN allergies 06/08/25 Physical Exam Narrative Patient had fever in the afternoon about 2 PM. Physical findings remain the same please see the progress note of the same date Weight / BMI Weight Weight: 121 lb 7.595 oz Body Mass Index (BMI) 22.9 ABG / Lab / Microbiology Data 06/09/25 04:22 06/09/25 04:22 Laboratory: Laboratory Results - last 24 hr 06/08/25 16:52: POC Glucose 104 06/08/25 21:26: POC Glucose 170 H 06/09/25 04:22: WBC 10.5, RBC 4.21 L, Hgb 11.8 L, Hct 36.2 L, MCV 86.0, MCH 28.0, MCHC 32.6, RDW Std Deviation 42.2, RDW Coeff of Leroy 13.5, Plt Count 221, MPV 10.0, Immature Gran % (Auto) 0.600, Neut % (Auto) 70.7 H, Lymph % (Auto) 13.8 L, Sch[place] % (Auto) 12.5 H, Eos % (Auto) 2.0, Baso % (Auto) 0.4, Absolute Neuts (auto) 7.4, Absolute Lymphs (auto) 1.44, Nucleated RBC % 0, Sodium 138, Potassium 3.6, Chloride 104, Carbon Dioxide 23.0, Anion Gap 11, BUN 12, Creatinine 0.64 L, Estim Creat Clear Calc 128.25, Est GFR (MDRD) Non-Af 133, BUN/Creatinine Ratio 18.1, Glucose 194 H, Hemoglobin A1c 5.4, Calcium 8.7 06/09/25 06:00: POC Glucose 192 H 06/09/25 11:36: POC Glucose 119 H Microbiology: Microbiology 06/07/25 10:30 Blood Culture (Wb) - Anticubital Right Blood Culture - Preliminary 06/07/25 11:39 Blood Culture (Wb) - Right Hand Blood Culture - Preliminary No growth in 48 hours. 06/07/25 10:50 Urine Catheter - Catheter Urine Culture - Preliminary Proteus vulgaris 06/07/25 10:50 Urine Catheter - Wade Legionella Antigen - Final 06/07/25 10:50 Urine Catheter - Wade Streptococcus pneumoniae Antigen (M - Final 06/07/25 12:43 Mucosa - Nose SARS-CoV-2, Influenza & RSV (PCR) - Final Radiography Diagnostic Testing: Radiology Impression Abdomen/Pelvis CT 06/09/25 10:25 IMPRESSION: 1. 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 Skin thickening posterior low back and overlying the right buttock region. No definite ulcer. Early stage decubitus ulcer is potentially present. Recommend direct inspection. 2. Compressive atelectasis of the lung bases related to curvature. 3. ATTRACTION WORKER shunt, cholecystectomy, appendectomy, percutaneous gastrostomy, right lower quadrant colostomy, percutaneous cystostomy. 4. Staghorn calculi right kidney. No collecting system dilation. Obstructing UPJ calculus on the left. The calculus is large. Urology consultation suggested. 5. Bladder stones. Reading Location: [id number] Instructions DC O2, CPAP, BIPAP Needs Home O2 Discharge instructions: Yes Type of respiratory needs?: BiPAP BiPAP instructions: 3 liters per minute DC home with Oxygen: No Meaningful Use Info Meaningful Use Meaningful Use Diagnoses (Choose all that apply): None applicable Discharge Plan Admission Admit Date/Time: 06/07/25 12:12 Attending Provider: Gregorio Qiu Primary Care Provider: Huan Mcgregor Consulting Providers: Yaya Valencia; Agusto Rooney Discharge Orders/Prescriptions Prescriptions: No Action Vital Peptide 1.5 Eriberto 0.07 gram- 1.5 kcal/mL liquid See Rx Instructions feeding tube .HS Rx Instructions: 85ml/hr via feeding tube HS; diltiazem HCl 240 mg capsule,extended release 24 hr 240 mg PO QDAY cholecalciferol (vitamin D3) 10 mcg (400 unit) tablet,chewable 10 mcg PO QDAY acetaminophen 325 mg capsule 325 mg PO Q6H PRN (Reason: fever or pain) diphenhydramine HCl [Allergy (diphenhydramine)] 25 mg tablet 25 mg PO QHS PRN (Reason: allergies) Referrals / Follow Up: Huan Mcgregor DO [Primary Care Provider] - Disposition Discharge Orders: Discharge Patient (Routine); Ordered 06/09/25 Ordered By: Dr. Gregorio Qiu Charges/Coding Addendum Addendum: Total time of the visit including total time spent in counseling or coordination of care, (more than 50% of the total time, spent in obtaining medical information from nurses and other ancillary care providers ,explaining to the patient about labs, imaging, diagnosis and management of active complex medical conditions) discussion with the urologist, [facility] coordinator, transfer process, review of labs and imaging is 35 minutes. Visit Charges Inpatient E&M: 21166 Disch Hosp >30min
[2025-06-10 03:20] VITALS: BP 117/85; PULSE 92; RESP 20; TEMP 37.2; O2SAT 99
[2025-06-10 04:59] VITALS: BMI 21.2
[2025-06-10 05:37] LABS: Hematocrit 38.9 % (40-54); Hemoglobin 12.5 g/dL (13.0-16.5); Immature Granulocytes Count 0.080 X10^3/uL (0.0-0.0); Mean Corp Hgb Conc 32.1 g/dL (32-36); Mean Corpuscular Volume 86.1 fL (80-94); Mean Platelet Vol. 9.6 fl (6.2-12.0); NRBC Flagged by Analyzer 0 % (0-5); POSITIVE DIFFERENTIAL YES; Platelet Count 232 K/mm3 (150-450); RBC Distribution Width CV 13.9 % (11.6-14.6); RBC Distribution Width SD 43.6 fl (35.1-43.9); Red Blood Count 4.52 M/mm3 (4.6-6.2); White Blood Count 10.3 K/mm3 (4.4-11.0)
[2025-06-10] MEDS: Piperacil/Tazobactam 3.375 GM in 0.9% Normal Saline (50mL MB+) 50 ML IV ×3 (06:09→21:03)
[2025-06-10 06:11] LABS: Differential Indicated SCAN CRITERIA MET
[2025-06-10 06:18] LABS: Anion Gap 14 (5-15); BUN 14 mg/dL (4-19); BUN/Creat Ratio 22.3 RATIO (10-20); Calcium,Total 9.2 mg/dL (7.6-11.0); Carbon Dioxide 23.1 mmol/L (21.0-32.0); Chloride 105 mmol/L (98-108); Estimated Creatinine Clearance 125.31 ml/min (50-250); Glucose 85 mg/dL (70-99); Potassium 3.7 mmol/L (3.3-5.1)
[2025-06-10 07:23] LABS: Differential Comment SCANNED
[2025-06-10 09:20] VITALS: BP 126/87; PULSE 95; RESP 16; TEMP 36.5; O2SAT 100
--- NOTE | 2025-06-10 10:22 | PCM.PN.ID ---
Physical Exam Narrative Feeling ok, no fever Const alert and no apparent distress General Appearance: cooperative Resp normal air movement and clear to auscultation bilaterally Cardio regular rate and regular rhythm GI soft to palpation, non-tender and non-distended Skin no rashes or lesions noted ID ID: Route of nutrition/ use of supplements: [] Nutritional Intake: [] IV Site: [] Wade Catheter: [] Assessment & Plan Assessment/Plan (1) Complicated urinary tract infection: PLAN: Comp uti with staghorn in place, complicated by GNR bacteremia. Ucx with proteus, Bcx with GNR. Cont zosyn. Urology consulted. Will follow
--- NOTE | 2025-06-10 11:27 | PCM.PN.HOSP ---
Reason for Visit Chief Complaint: High grade fever 104.4 and low urine output. Objective Data Objective Data Vital Signs: Vital Signs Temp Pulse Resp BP Pulse Ox O2 Del Method O2 Flow Rate 99.0 F 92 20 H 117/85 H 99 Room Air 3 06/10/25 03:20 06/10/25 03:20 06/10/25 03:20 06/10/25 03:20 06/10/25 03:20 06/10/25 07:35 06/10/25 03:23 Oxygen Flow Rate (L/min) 3 Oxygen Delivery Method Room Air Weight: 51.1 kg Body Mass Index (BMI) 21.2 Intake & Output: Intake and Output for Last 24 Hours 06/08/25 06/09/25 06/10/25 23:59 23:59 23:59 Intake Total 450 / 450 650 / 650 100 / 100 Output Total 1425 / 1550 1175 / 1175 50 / 50 Balance -975 / -1100 -525 / -525 50 / 50 Lab / Micro Data 06/10/25 05:19 06/10/25 05:19 Labs: Laboratory Results - last 24 hr 06/09/25 11:36: POC Glucose 119 H 06/09/25 16:17: POC Glucose 97 06/09/25 22:49: POC Glucose 91 06/10/25 05:19: WBC 10.3, RBC 4.52 L, Hgb 12.5 L, Hct 38.9 L, MCV 86.1, MCH 27.7, MCHC 32.1, RDW Std Deviation 43.6, RDW Coeff of Leroy 13.9, Plt Count 232, MPV 9.6, Immature Gran % (Auto) 0.800, Neut % (Auto) 69.4, Lymph % (Auto) 13.4 L, [place] % (Auto) 14.8 H, Eos % (Auto) 1.2, Baso % (Auto) 0.4, Absolute Neuts (auto) 7.2, Absolute Lymphs (auto) 1.38, Nucleated RBC % 0, Differential Comment SCANNED, Sodium 143, Potassium 3.7, Chloride 105, Carbon Dioxide 23.1, Anion Gap 14, BUN 14, Creatinine 0.64 L, Estim Creat Clear Calc 125.31, Est GFR (MDRD) Non-Af 133, BUN/Creatinine Ratio 22.3 H, Glucose 85, Calcium 9.2 06/10/25 06:07: POC Glucose 79 Micro: Microbiology 06/07/25 10:30 Blood Culture (Wb) - Anticubital Right Blood Culture - Preliminary Gram negative susan 06/08/25 09:40 Blood Culture (Wb) - Anticubital Right Blood Culture - Preliminary No growth in 48 hours. 06/07/25 10:50 Urine Catheter - Catheter Urine Culture - Preliminary Proteus vulgaris 06/07/25 11:39 Blood Culture (Wb) - Right Hand Blood Culture - Preliminary No growth in 48 hours. 06/07/25 10:50 Urine Catheter - Wade Legionella Antigen - Final 06/07/25 10:50 Urine Catheter - Wade Streptococcus pneumoniae Antigen (M - Final 06/07/25 12:43 Mucosa - Nose SARS-CoV-2, Influenza & RSV (PCR) - Final Physical Exam Narrative GENERAL: cooperative HEENT: Atraumatic; normocephalic EYES; Anicteric, Normal Conjunctiva NECK; supple, normal thyroid, RESPIRATORY: Diminished to auscultation CARDIOVASCULAR: Regular S1 S2, GI: soft, normoactive bowel sounds, : No Renal angle tenderness; EXTREMITIES: Right lower extremity amputation MUSCULOSKELETAL: no muscle wasting NEURO: Awake; no lateralizing signs. SKIN: No Rash PSYCH; Flat affect Assessment & Plan Assessment/Plan (1) Complicated urinary tract infection: PLAN: Plan Patient is a 29-year-old gentleman with multiple comorbidities including spina bifida, CRISIS INTERVENTION COUNSELOR shunt who presented with fever decreased urine output as well as abdominal distention. An assessment of sepsis secondary to complicated UTI was made admitted to regular nursing floor for further management 1. Sepsis ? Secondary to complicated UTI. Patient started on broad-spectrum antibiotic therapy with piperacillin/tazobactam consult placed to ID as well as urology. Patient underwent subsequent evaluation with CT of the abdomen and pelvis CT demonstrated staghorn calculi right kidney, no collecting system dilatation. Left UPJ calculus large about 10.7 mm with left hydronephrosis. Percutaneous cystostomy tube, large calculi, 2 in number 3.6 cm and 3.[address] Rooney recommended for patient to be transferred to [facility] where patient had received previous care. Call was placed on 06/09/2025 patient has been accepted for transfer currently waiting for a bed 2. Chronic hypoxic and hypercapnic respiratory failure ? Patient is on Airvo this a.m. 3. Thoracic spina bifida ? With resultant neuromuscular disorder and respiratory weakness complicating patient care not invasive ventilation at night 4. Hydrocephalus ? Status post of CRISIS INTERVENTION COUNSELOR shunt placement 5. Hypertension ? Blood pressure controlled, home medications continued with dose adjustment as needed 6. DVT prophylaxis ? SC Lovenox Time spent in the patient's overall evaluation,decision-making process, review of diagnostic data, adjustment of management, discussion with other providers, nursing nursing and ancillary staff involved in patient's care documentation, 36 Minutes Charges/Coding Visit Charges Inpatient E&M: 99829 Subs Hosp L2
[2025-06-10 15:20] VITALS: BP 127/79; PULSE 115; RESP 18; TEMP 37.2; O2SAT 97
[2025-06-10] MEDS: NUT TX IMPAIRED DIGEST GT (16:25)
[2025-06-10] MEDS: FIBER GT (16:25)
[2025-06-10 20:55] VITALS: BP 129/94; PULSE 121; RESP 18; TEMP 37.3; O2SAT 94
[2025-06-10] MEDS: Lactobacillis Acidophilus 1 CAP PO (21:01)
[2025-06-11 04:00] VITALS: BP 127/94; PULSE 96; RESP 16; TEMP 37.1; O2SAT 99
[2025-06-11 05:41] VITALS: BMI 21.1
[2025-06-11] MEDS: Piperacil/Tazobactam 3.375 GM in 0.9% Normal Saline (50mL MB+) 50 ML IV ×2 (06:35→13:20)
[2025-06-11] MEDS: Lactobacillis Acidophilus 1 CAP PO ×2 (06:36→13:21)
--- NOTE | 2025-06-11 07:44 | PN.HOSP_ITS ---
Reason for Visit Chief Complaint: High grade fever 104.4 and low urine output. Subjective Subjective Patient seen continues to spike fever. Still waiting for bed Objective Data Objective Data Vital Signs: Vital Signs Temp Pulse Resp BP Pulse Ox O2 Del Method O2 Flow Rate 98.7 F 96 16 127/94 H 99 Room Air 3 06/11/25 04:00 06/11/25 04:00 06/11/25 04:00 06/11/25 04:00 06/11/25 04:00 06/11/25 04:00 06/11/25 02:26 Oxygen Flow Rate (L/min) 3 Oxygen Delivery Method Room Air Weight: 50.7 kg Body Mass Index (BMI) 21.1 Intake & Output: Intake and Output for Last 24 Hours 06/09/25 06/10/25 06/11/25 23:59 23:59 23:59 Intake Total 650 / 650 1570 / 1570 50 / 50 Output Total 1175 / 1175 800 / 800 450 / 450 Balance -525 / -525 770 / 770 -400 / -400 Lab / Micro Data 06/11/25 08:42 06/11/25 08:42 Labs: Laboratory Results - last 24 hr 06/10/25 11:54: POC Glucose 71 L 06/10/25 16:15: POC Glucose 85 06/10/25 20:59: POC Glucose 167 H 06/11/25 06:30: POC Glucose 220 H Micro: Microbiology 06/07/25 10:30 Blood Culture (Wb) - Anticubital Right Blood Culture - Preliminary Gram negative susan 06/08/25 09:40 Blood Culture (Wb) - Anticubital Right Blood Culture - Preliminary No growth in 48 hours. 06/07/25 10:50 Urine Catheter - Catheter Urine Culture - Preliminary Proteus vulgaris 06/07/25 11:39 Blood Culture (Wb) - Right Hand Blood Culture - Preliminary No growth in 48 hours. 06/07/25 10:50 Urine Catheter - Crooks Legionella Antigen - Final 06/07/25 10:50 Urine Catheter - Crooks Streptococcus pneumoniae Antigen (M - Final 06/07/25 12:43 Mucosa - Nose SARS-CoV-2, Influenza & RSV (PCR) - Final Physical Exam Narrative GENERAL: cooperative HEENT: Atraumatic; normocephalic EYES; Anicteric, Normal Conjunctiva NECK; supple, normal thyroid, RESPIRATORY: Diminished to auscultation CARDIOVASCULAR: Regular S1 S2, GI: soft, normoactive bowel sounds, : No Renal angle tenderness; EXTREMITIES: Right lower extremity amputation MUSCULOSKELETAL: no muscle wasting NEURO: Awake; no lateralizing signs. SKIN: No Rash PSYCH; Flat affect Assessment & Plan Assessment/Plan (1) Complicated urinary tract infection: PLAN: Plan Patient is a 29-year-old gentleman with multiple comorbidities including spina bifida, ADOBE BALL MIXER shunt who presented with fever decreased urine output as well as abdominal distention. An assessment of sepsis secondary to complicated UTI was made admitted to regular nursing floor for further management 1. Sepsis ? Secondary to complicated UTI. UTI is due to or associated with the presence of the indwelling crooks catheter -Patient started on broad-spectrum antibiotic therapy with piperacillin/tazobactam consult placed to ID as well as urology. Patient underwent subsequent evaluation with CT of the abdomen and pelvis CT demonstrated staghorn calculi right kidney, no collecting system dilatation. Left UPJ calculus large about 10.7 mm with left hydronephrosis. Percutaneous cystostomy tube, large calculi, 2 in number 3.6 cm and 3.[address] Rooney recommended for patient to be transferred to [facility] where patient had received previous care. Call was placed on 06/09/2025 patient has been accepted for transfer currently waiting for a bed ? 06/11/2025; patient seen continues to spike fever. Will continue with current antibiotic therapy pending acceptance by [facility] 2. Chronic hypoxic and hypercapnic respiratory failure ? Patient is on Airvo this a.m. 3. Thoracic spina bifida ? With resultant neuromuscular disorder and respiratory weakness complicating patient care not invasive ventilation at night 4. Hydrocephalus ? Status post of ADOBE BALL MIXER shunt placement 5. Hypertension ? Blood pressure controlled, home medications continued with dose adjustment as needed 6. DVT prophylaxis ? SC Lovenox Time spent in the patient's overall evaluation,decision-making process, review of diagnostic data, adjustment of management, discussion with other providers, nursing nursing and ancillary staff involved in patient's care documentation, 35 Minutes Charges/Coding Visit Charges Inpatient E&M: 88937 Subs Hosp L2
[2025-06-11 08:50] LABS: Hematocrit 35.8 % (40-54); Hemoglobin 11.9 g/dL (13.0-16.5); Immature Granulocytes Count 0.450 X10^3/uL (0.0-0.0); Mean Corp Hgb Conc 33.2 g/dL (32-36); Mean Corpuscular Volume 84.8 fL (80-94); Mean Platelet Vol. 9.8 fl (6.2-12.0); NRBC Flagged by Analyzer 0 % (0-5); Platelet Count 255 K/mm3 (150-450); RBC Distribution Width CV 14.1 % (11.6-14.6); RBC Distribution Width SD 43.5 fl (35.1-43.9); Red Blood Count 4.22 M/mm3 (4.6-6.2); White Blood Count 12.9 K/mm3 (4.4-11.0)
[2025-06-11] MEDS: Senna/Docusate Sodium 1 Tablet 2 TABLET PO (09:26)
[2025-06-11] MEDS: Cholecalciferol (VIT D3) 25 MCG TABLET (1,000 UNITS) PO (09:26)
[2025-06-11 09:39] VITALS: BP 133/82; PULSE 118; RESP 18; TEMP 38.4; O2SAT 95
[2025-06-11 09:40] LABS: Anion Gap 12 (5-15); BUN 12 mg/dL (4-19); BUN/Creat Ratio 21.5 RATIO (10-20); Calcium,Total 8.8 mg/dL (7.6-11.0); Carbon Dioxide 24.8 mmol/L (21.0-32.0); Chloride 104 mmol/L (98-108); Estimated Creatinine Clearance 139.60 ml/min (50-250); Glucose 102 mg/dL (70-99); Magnesium 2.1 mg/dL (1.5-2.2); Potassium 3.8 mmol/L (3.3-5.1)
[2025-06-11 11:15] VITALS: BP 128/80; PULSE 102; RESP 16; TEMP 37.2; O2SAT 95
[2025-06-11] MEDS: 0.9% Saline Lock 10 ML Syringe IV (13:21)
--- NOTE | 2025-06-11 13:37 | DS.PCM_ITS ---
Providers Date of Admission: 06/07/25 Date of Discharge: 06/11/25 Primary Care Physician: Dr. Huan Mcgregor, DO Consultations 06/08/25 08:56 Consult: Infectious Disease Routine Consulting Provider: Yaya Valencia Reason for Consult: high grade fever, source unclear, suspected UTI, compromised/debility EMERGENT Consult: No Notified: Yes Date Notified: 06/08/25 Time Notified: 08:56 Method of Notification: Text 06/09/25 11:57 Consult: Urology Routine Consulting Provider: Agusto Rooney Reason for Consult: uti, staghorn calculus EMERGENT Consult: No Notified: Yes Date Notified: 06/09/25 Time Notified: 12:10 Method of Notification: Verbal Reason For Visit: UTI SUSPICION OF UTI Diagnosis Discharge Diagnosis (1) Complicated urinary tract infection: Status: Acute Code(s): N39.0 - Urinary tract infection, site not specified Plan Patient is a 29-year-old gentleman with multiple comorbidities including spina bifida, COTTON SEED CULLER shunt who presented with fever decreased urine output as well as abdominal distention. An assessment of sepsis secondary to complicated UTI was made admitted to regular nursing floor for further management 1. Sepsis ? Secondary to complicated UTI. UTI is due to or associated with the presence of the indwelling crooks catheter -Patient started on broad-spectrum antibiotic therapy with piperacillin/tazobactam consult placed to ID as well as urology. Patient underwent subsequent evaluation with CT of the abdomen and pelvis CT demonstrated staghorn calculi right kidney, no collecting system dilatation. Left UPJ calculus large about 10.7 mm with left hydronephrosis. Percutaneous cystostomy tube, large calculi, 2 in number 3.6 cm and 3.[address] Rooney recommended for patient to be transferred to [facility] where patient had received previous care. Call was placed on 06/09/2025 patient has been accepted for transfer currently waiting for a bed ? 06/11/2025; patient seen continues to spike fever. Will continue with current antibiotic therapy pending acceptance by [facility] ? 06/11/2025; patient was discharged to [facility] once bed became available 2. Chronic hypoxic and hypercapnic respiratory failure ? Patient is on Airvo this a.m. 3. Thoracic spina bifida ? With resultant neuromuscular disorder and respiratory weakness complicating patient care not invasive ventilation at night 4. Hydrocephalus ? Status post of COTTON SEED CULLER shunt placement 5. Hypertension ? Blood pressure controlled, home medications continued with dose adjustment as needed 6. DVT prophylaxis ? SC Lovenox Time spent in the patient's overall evaluation,decision-making process, review of diagnostic data, adjustment of management, discussion with other providers, nursing nursing and ancillary staff involved in patient's care documentation, 35 Minutes Medications at Discharge Home Medications [email or web address] impaired digestive fxn-fiber 0.07 gram-1.5 kcal/mL oral liquid (Vital Peptide 1.5 Eriberto) See Rx Instructions feeding tube .HS feed 12/01/22 cholecalciferol (vitamin D3) 10 mcg (400 unit) chewable tablet 10 mcg PO QDAY vitamin 02/27/25 diltiazem HCl 240 mg capsule,24 hr,extended release 240 mg PO QDAY heart rate 02/27/25 acetaminophen 325 mg capsule 325 mg PO Q6H PRN fever or pain 06/07/25 diphenhydramine HCl 25 mg tablet (Allergy (diphenhydramine)) 25 mg PO QHS PRN allergies 06/08/25 Physical Exam Narrative GENERAL: cooperative HEENT: Atraumatic; normocephalic EYES; Anicteric, Normal Conjunctiva NECK; supple, normal thyroid, RESPIRATORY: Diminished to auscultation CARDIOVASCULAR: Regular S1 S2, GI: soft, normoactive bowel sounds, : No Renal angle tenderness; EXTREMITIES: Right lower extremity amputation MUSCULOSKELETAL: no muscle wasting NEURO: Awake; no lateralizing signs. SKIN: No Rash PSYCH; Flat affect Weight / BMI Weight Weight: 50.7 kg Body Mass Index (BMI) 21.1 ABG / Lab / Microbiology Data 06/11/25 08:42 06/11/25 08:42 Laboratory: Laboratory Results - last 24 hr 06/10/25 16:15: POC Glucose 85 06/10/25 20:59: POC Glucose 167 H 06/11/25 06:30: POC Glucose 220 H 06/11/25 08:42: WBC 12.9 H, RBC 4.22 L, Hgb 11.9 L, Hct 35.8 L, MCV 84.8, MCH 28.2, MCHC 33.2, RDW Std Deviation 43.5, RDW Coeff of Leroy 14.1, Plt Count 255, MPV 9.8, Immature Gran % (Auto) 3.500 H, Neut % (Auto) 83.0 H, Lymph % (Auto) 6.5 L, Keith % (Auto) 5.4, Eos % (Auto) 1.0, Baso % (Auto) 0.6, Absolute Neuts (auto) 10.7 H, Absolute Lymphs (auto) 0.84, Nucleated RBC % 0, Sodium 142, Potassium 3.8, Chloride 104, Carbon Dioxide 24.8, Anion Gap 12, BUN 12, C reatinine 0.57 L, Estim Creat Clear Calc 139.60, Est GFR (MDRD) Non-Af 138, B UN/Creatinine Ratio 21.5 H, Glucose 102 H, Calcium 8.8, Phosphorus 2.3 L, Magnesium 2.1 06/11/25 11:10: POC Glucose 135 H Microbiology: Microbiology 06/07/25 10:30 Blood Culture (Wb) - Anticubital Right Blood Culture - Final Escherichia coli 06/07/25 10:50 Urine Catheter - Catheter Urine Culture - Final Pseudomonas aeruginosa Proteus vulgaris 06/08/25 09:40 Blood Culture (Wb) - Anticubital Right Blood Culture - Preliminary No growth in 48 hours. 06/07/25 11:39 Blood Culture (Wb) - Right Hand Blood Culture - Preliminary No growth in 48 hours. 06/07/25 10:50 Urine Catheter - Crooks Legionella Antigen - Final 06/07/25 10:50 Urine Catheter - Crooks Streptococcus pneumoniae Antigen (M - Final 06/07/25 12:43 Mucosa - Nose SARS-CoV-2, Influenza & RSV (PCR) - Final D/C Instructions Discharge Activity: Return to Normal Activity Call your doctor if you observe: Fever of 101 or Higher, Shortness of breath, Fainting spells and Chest pain DC O2, CPAP, BIPAP Needs Home O2 Discharge instructions: No DC home with Oxygen: No Meaningful Use Info Meaningful Use Meaningful Use Diagnoses (Choose all that apply): None applicable Discharge Plan Admission Admit Date/Time: 06/07/25 12:12 Attending Provider: Xavier Buck Primary Care Provider: Huan Mcgregor Consulting Providers: Yaya Valencia; Agusto Rooney; Gregorio Qiu Discharge Orders/Prescriptions Prescriptions: Continued Vital Peptide 1.5 Eriberto 0.07 gram- 1.5 kcal/mL liquid See Rx Instructions feeding tube .HS Rx Instructions: 85ml/hr via feeding tube HS; diltiazem HCl 240 mg capsule,extended release 24 hr 240 mg PO QDAY cholecalciferol (vitamin D3) 10 mcg (400 unit) tablet,chewable 10 mcg PO QDAY acetaminophen 325 mg capsule 325 mg PO Q6H PRN (Reason: fever or pain) diphenhydramine HCl [Allergy (diphenhydramine)] 25 mg tablet 25 mg PO QHS PRN (Reason: allergies) Referrals / Follow Up: Huan Mcgregor DO [Primary Care Provider] - Disposition Disposition (needs filled in before D/C Order can be placed): Acute Care Hospital Charges/Coding Visit Charges Inpatient E&M: 69930 Disch Hosp >30min
[2025-06-11 15:26] VITALS: BP 133/88; PULSE 96; RESP 16; TEMP 36.8; O2SAT 99
== END 2025-06-11 15:15 | disposition short-term general hospital (02) | DRG 698 ==
LOC: ED 10:31 → PCU 12:17
PROVIDERS: Admitting Provider Internal Medicine; Emergency Provider Emergency Medicine; PCP Student in an Organized Health Care Education/Training Program; Visit Provider Internal Medicine
DX: T83.511A Infection and inflammatory reaction due to indwelling urethral catheter, initial encounter (principal); A41.51 Sepsis due to Escherichia coli [E. coli]; J96.12 Chronic respiratory failure with hypercapnia; J96.11 Chronic respiratory failure with hypoxia; Q05.1 Thoracic spina bifida with hydrocephalus; N13.6 Pyonephrosis; Z89.611 Acquired absence of right leg above knee; I10 Essential (primary) hypertension; Z93.3 Colostomy status; X58.XXXA Exposure to other specified factors, initial encounter; B96.5 Pseudomonas (aeruginosa) (mallei) (pseudomallei) as the cause of diseases classified elsewhere; B96.4 Proteus (mirabilis) (morganii) as the cause of diseases classified elsewhere; R73.9 Hyperglycemia, unspecified; Z93.1 Gastrostomy status; Z74.01 Bed confinement status; Z98.2 Presence of cerebrospinal fluid drainage device; Z79.899 Other long term (current) drug therapy; Z86.16 Personal history of COVID-19
CPT/HCPCS: 36415; 74176; 80048; 80053; 81001; 82550; 82962; 83036; 83605; 83735; 84100; 85025; 85610; 85730; 87040; 87077; 87086; 87088; 87186; 87449; 87631; 87641; 94668; 97161; 97802; 99285; A4216

== ENCOUNTER 2025-08-08 20:24 | Emergency (ER) | payer OTHER, MEDICAID, SELFPAY ==
[2025-08-08 20:25] VITALS: BP 128/84; PULSE 134; RESP 22; TEMP 38.2; O2SAT 95
[2025-08-08 20:28] VITALS: BP 122/68; PULSE 126; RESP 28; TEMP 37.3; O2SAT 96; BMI 20.8
[2025-08-08 21:24] VITALS: PULSE 122; RESP 20; O2SAT 96
[2025-08-08 21:28] VITALS: BP 119/80; PULSE 122; RESP 24; TEMP 36.4; O2SAT 96
--- NOTE | 2025-08-08 21:45 | EKG12_ITS ---
Test Reason : ES Blood Pressure : */* mmHG Vent. Rate : 115 BPM Atrial Rate : 115 BPM P-R Int : 148 ms QRS Dur : 80 ms QT Int : 296 ms P-R-T Axes : 33 70 14 degrees QTcB Int : 409 ms Sinus tachycardia Otherwise normal ECG Confirmed by NEELIMA SERRANO, AMANDA ([id number]), staff editor CHEMA YUNG ([id number]) on 08/11/2025 6:57:13 AM Referred By: Confirmed By: AMANDA ORTEZ MD
--- NOTE | 2025-08-08 21:47 | EDS_ITS ---
HPI History of Present Illness Chief Complaint: Fever Detail of Chief Complaint: Tmax 103 degrees at home with shaking chills Informant: patient and parent Onset/Context/Timing Onset: Today Context: Sudden Onset Timing: Continuous Quality: Fever and chills and piece of plastic came out of his bladder. Location: Current Severity: Mild Maximum Severity: Moderate Worsened by: Probable infected right staghorn calculi or infected bladder calculi's Relieved by: Nothing Associated Symptoms Associated Symptoms: Nausea, thirst Narrative Narrative: Patient is a 30-year-old male. He has history of spina bifida. 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 He was brought in because of a temperature greater than 103 was shaking chills that started today. His temperature in the emergency department to 100.8. He reports not feeling well. He does complain of bifrontal head pain. He denies photophobia. He denies neck pain or neck stiffness. He denies rhinorrhea, congestion, postnasal drainage or sore throat. He denies cough or shortness of breath. He has no sensation from the nipples down due to the spina bifida. Patient was seen June 09, [address] Rooney. He was seen for complex infection due to multiple stones. His consult was reviewed. He recommended transfer to tertiary care center. He was cared for at [facility]. He underwent surgery at the clinic. He the urologist noted a piece of plastic left kidney and was unable to remove it. Patient apparently passed the stones when parents changed his catheter. Prior similar symptoms: Yes Recent Illness/Hospitalization: Yes [facility] Medical History Colostomy hernia On mechanically assisted ventilation Chronic respiratory failure with hypoxia and hypercapnia Neuromuscular respiratory weakness Chronic respiratory failure requiring treatment with nocturnal BPAP by mask Home Medications ?Medication ?Instructions ?Recorded ?Last Taken ?Type nut.tx impaired digestive See Rx Instructions feeding tube 12/01/22 Unknown History fxn-fiber 0.07 gram-1.5 kcal/mL .HS feed oral liquid (Vital Peptide 1.5 Eriberto) cholecalciferol (vitamin D3) 10 10 mcg PO QDAY vitamin 02/27/25 06/06/25 History mcg (400 unit) chewable tablet diltiazem HCl 240 mg capsule,24 240 mg PO QDAY heart r ate 02/27/25 06/06/25 History hr,extended release acetaminophen 325 mg capsule 325 mg PO Q6H PRN fever o r pain 06/07/25 06/07/25 History diphenhydramine HCl 25 mg tablet 25 mg PO QHS PRN tami rgies 06/08/25 Unknown History (Allergy (diphenhydramine)) Allergy/AdvReac Type Severity Reaction Status Date / Time bacitracin Allergy Mild unknown Verified 08/08/25 20:25 latex Allergy Unknown Verified 08/08/25 20:25 levofloxacin (Levofloxacin) Allergy Rash Verified 08/08/25 20:25 sulfamethoxazole (From Allergy Rash Verified 08/08/25 20:25 Bactrim) trimethoprim (From Bactrim) Allergy Rash Verified 08/08/25 20:25 Social History Smoking Status: Never smoker ROS ROS ED Constitutional Constitutional ED: Reports chills, fever(s) and sweats; Denies subjective Eyes Eyes: Denies blurry vision, change in vision or diplopia ENT ENT ED: Denies ear pain or rhinorrhea Cardiovascular Cardiovascular: Denies chest pain, orthopnea, palpitations or paroxysmal nocturnal dyspnea Respiratory/Chest Respiratory/Chest: Denies cough, dyspnea, dyspnea on exertion, orthopnea or paroxysmal nocturnal dyspnea Gastrointestinal Gastrointestinal: Reports constipation; Denies abdominal pain, nausea or vomiting Genitourinary Genitourinary ED: Reports other Details: Patient has no sensation from nipples down/distal/caudal Musculoskeletal Musculoskeletal: Denies arthralgias, back pain or myalgias Integumentary Denies rash Neurologic Neurologic: Reports headache(s); Denies paresthesias Endocrine Endocrinology: Denies cold intolerance or heat intolerance Hematologic/Lymphatic Hematologic/Lymphatic: Reports systems reviewed and no addt'l complaints, except as documented EXAM Physical Exam Const Vital Signs: 08/08/25 20:25 08/08/25 20:28 08/08/25 20:46 Temperature 100.8 F H 99.1 F Temperature Source Oral Oral Pulse Rate 134 H 126 H Respiratory Rate 22 H 28 H Respiratory Effort Normal Non-Labored Respiratory Pattern Normal Blood Pressure 128/84 H 122/68 H Blood Pressure Mean 98 86 Pulse Ox 95 96 Oxygen Delivery Method Room Air Room Air 08/08/25 21:24 08/08/25 21:28 08/08/25 22:00 Temperature 97.5 F L Temperature Source Oral Pulse Rate 122 H 122 H 115 H Respiratory Rate 20 H 24 H 20 H Respiratory Effort Respiratory Pattern Blood Pressure 119/80 Blood Pressure Mean 93 Pulse Ox 96 96 97 Oxygen Delivery Method Room Air Room Air Room Air 08/08/25 22:00 08/08/25 23:00 Temperature 97.5 F L Temperature Source Oral Pulse Rate 119 H 119 H Respiratory Rate 28 H 30 H Respiratory Effort Respiratory Pattern Blood Pressure 119/80 115/77 Blood Pressure Mean 93 89 Pulse Ox 96 98 Oxygen Delivery Method Room Air Room Air Positive well nourished and well developed Constitutional Narrative: Patient appears ill but not toxic. He is febrile, tachycardic and tachypneic. General Appearance ED: well developed; Negative for pallor HEENT Reports dry mucous membranes HEENT Narrative: Head is atraumatic normocephalic. Mouth ED: Yes dry mucous membranes Mouth: dry mucous membranes Eyes PERRL and EOMs intact bilaterally General Eye ED: Negative for pale conjunctiva or scleral icterus Neck no lymphadenopathy, supple and no JVD Chest Wall inspection of chest normal Resp normal respiratory effort and clear to auscultation bilaterally Cardio regular rhythm, S1 normal heart sound, S2 normal heart sound and no murmurs Rate: tachycardic GI non-tender and non-distended Auscultation: hypoactive bowel sounds Narrative: Nephrostomy tube noted left. Back/Spine no CVA tenderness Extremity normal to inspection Extremity Narrative: Atrophy of his legs due to spina bifida Neuro oriented x3, CN's II-XII intact bilaterally and No no sensory deficits noted Motor Exam: Negative for strength 5/5 throughout Psych mental status grossly normal Skin no rashes or lesions noted General Skin Exam: Negative for jaundice or pallor MDM MDM MDM Narrative Medical decision making narrative: Patient presents with infectious symptoms. Concerned source is either his right kidney versus left kidney versus bladder. Sepsis workup was initiated. He was treated with cefepime. I was informed at 0004 that his left lower extremity is red. No plan is certain whether this was right before or after the antibiotics were administered. Will continue to monitor. Imaging of the abdomen was not done since he had a CT of the abdomen yesterday and the CTA that was performed yesterday did not reveal any change from prior CAT scans. Lab Data Attestation: I reviewed the patient's lab results. Lab results narrative: White count is elevated 17.8 thousand. There is a shift. There is no bandemia. Comprehensive metabolic panel is normal other than a sodium of 131 and potassium of 2.9. Urine is contaminated. This does not make sense since patient has a Wade in and a nephrostomy tube. This is likely the source of his infection. Labs: Laboratory Results - last 24 hr 08/08/25 08/08/25 21:35 22:25 WBC 17.8 H RBC 4.41 L Hgb 12.6 L Hct 36.6 L MCV 83.0 MCH 28.6 MCHC 34.4 RDW Std Deviation 40.6 RDW Coeff of Leroy 13.4 Plt Count 290 MPV 9.0 Immature Gran % (Auto) 1.000 H Neut % (Auto) 78.5 H Lymph % (Auto) 10.4 L Stephens % (Auto) 9.7 Eos % (Auto) 0.2 Baso % (Auto) 0.2 Absolute Neuts (auto) 14.0 H Absolute Lymphs (auto) 1.84 Nucleated RBC % 0 Differential Comment SCANNED PT 14.2 INR 1.1 APTT 35.5 Sodium 131 L Potassium 2.9 L Chloride 94 L Carbon Dioxide 24.4 Anion Gap 13 BUN 4 Creatinine 0.33 L Estim Creat Clear Calc 235.69 Est GFR (MDRD) Non-Af 162 BUN/Creatinine Ratio 13.7 Glucose 99 Lactic Acid < 1.0 Calcium 9.5 Total Bilirubin 0.35 AST 15 ALT 22 Alkaline Phosphatase 120 Total Protein 8.0 Albumin 3.8 Globulin 4.2 Albumin/Globulin Ratio 0.9 Urine Color Straw Urine Clarity Cloudy Urine pH 7.0 Ur Specific Reinholds 1.010 Urine Protein 30 H Urine Glucose (UA) Normal Urine Ketones 50 H Urine Occult Blood 50 H Urine Nitrite Positive H Urine Bilirubin Negative Urine Urobilinogen Normal Ur Leukocyte Esterase 500 H Urine RBC 0-5 SEEN Urine WBC 50-100 SEEN Ur Squamous Epith Cells 10-25 SEEN Amorphous Sediment 3+ Urine Bacteria 2+ Urine Mucus 0 SEEN EKG Initial EKG: Attestation: I personally reviewed and interpreted this EKG as follows: Interpretation: Sinus Tachycardia (Rate is 115. Other than the tachycardia there is no abnormality. WI interval is under 48 ms. QRS duration 80 ms. QT duration 296 ms. Parker is normal.) Management Discussion w/another healthcare provider: [employer] (Spoke to Dr. Diaz neurologist on-call for [facility]. Patient was accepted. Will go to room on G90.) Treatment and Re-Evaluation :: Patient has CT of the abdomen pelvis yesterday [facility] facility. Patient has a staghorn calculi with multiple stones right renal pelvis and multiple bladder calculi. There is a nephrostomy tube noted on the left. Comments:: Based on prior notes plan is transfer to [facility] if beds are available otherwise will need admission to [facility] and plan for transfer once bed is available. Critical Care Time Critical Care Time: Yes Critical care time (excluding procedures): 30-74 minutes (24), Including time spent: (History, physical, documentation, review of prior records), Discussing w/Patient &/or Family/Events Director, Discussing w/Consultants and Arranging Admission or Transfer Discharge Plan Triage Chief Complaint: Fever ED Provider: Joseph Rios Dx/Rx/DC Orders Clinical Impression: Complicated urinary tract infection, Staghorn kidney stones, Bladder calculi, Fever in adult, SIRS (systemic inflammatory response syndrome), Spina bifida Prescriptions: No Action Vital Peptide 1.5 Eriberto 0.07 gram- 1.5 kcal/mL liquid See Rx Instructions feeding tube .HS Rx Instructions: 85ml/hr via feeding tube HS; diltiazem HCl 240 mg capsule,extended release 24 hr 240 mg PO QDAY cholecalciferol (vitamin D3) 10 mcg (400 unit) tablet,chewable 10 mcg PO QDAY acetaminophen 325 mg capsule 325 mg PO Q6H PRN (Reason: fever or pain) diphenhydramine HCl [Allergy (diphenhydramine)] 25 mg tablet 25 mg PO QHS PRN (Reason: allergies) Primary Care Provider: Huan Mcgregor Referrals: Huan Mcgregor DO [Primary Care Provider, Family Practice] Print Language: Frisian Disposition Disposition: Acute Care Hospital Discharge Location: [facility]
--- OUTSIDE RECORDS SUMMARY | 2025-08-08 21:53 | XMS RPT_ITS | CCD ---
Author Organization [facility] Care Team Providers Care Rail Director Name Role Phone Balbir BENAVIDES MD, Michael Primary Care Provider [phone] ([place]), [place] Unavailable Nikita Gramajo DO Primary Care Provider NIKITA GRAMAJO Primary Care Unavailable AUGUSTIN REY Attending Unavailable AUGUSTIN REY Referring Unavailable NIKITA GRAMAJO Primary Care Unavailable ALINA TATUM Attending Unavailable MISHA CAMARENA Attending Unavailable NIKITA GRAMAJO Primary Care Unavailable NIKITA GRAMAJO Primary Care Unavailable NIKITA GRAMAJO A Referring Unavailable AUGUSTIN REY Attending Unavailable NIKITA GRAMAJO A Primary Care Unavailable AUGUSTIN REY Attending Unavailable AUGUSTIN REY Referring Unavailable Balbir BENAVIDES MD, Michael Primary Care Provider [phone] Balbir BENAVIDES MD, Michael Primary Care Provider [phone] NIKITA GRAMAJO DO Primary Care Physician [phone] Dr. Omi Adams Attending Provider Balbir BENAVIDES DO, Michael Primary Care Provider [phone] NIKITA GAUTHIER Referring Unavailable NIKITA GAUTHIER Attending Unavailable NIKITA GRAMAJO IV Primary Care Unavailable KELSIE GIRALDO Referring Unavailable ARTUR LAYTON Attending Unavailable NIKITA GRAMAJO IV Primary Care Unavailable MARIFER DOWD Referring Unavailable MARIFER DOWD Attending Unavailable NIKITA GRAMAJO IV Primary Care Unavailable ЕКАТЕРИНА, HOITA Referring Unavailable NIKITA GRAMAJO IV Primary Care Unavailable HO DOWDITA Attending Unavailable ЕКАТЕРИНА, AJITA Referring Unavailable HARRY SHORE Attending Unavailable NIKITA GRAMAJO IV Primary Care Unavailable DHRUV, PATRICIA Referring Unavailable HALKO IV, NIKITA Primary Care Unavailable HALKO IV, NIKITA Primary Care Unavailable ЕКАТЕРИНА, AJITA Attending Unavailable ЕКАТЕРИНА, AJITA Admitting Unavailable ЕКАТЕРИНА, AJITA Referring Unavailable HALKO IV, NIKITA Primary Care Unavailable ЕКАТЕРИНА, AJITA Referring Unavailable HALKO IV, NIKITA Primary Care Unavailable DHRUV, PATRICIA Referring Unavailable HALKO IV, NIKITA Primary [...] Unavailable HALKO IV, NIKITA Primary Care Unavailable MANDO GIBBS Attending Unavai chip GAUTHIER, NIKITA Referring Unavailable HALKO IV, NIKITA Primary Care Unavailable Halko IV, DO, Zack Primary Care Provider HALKO DO, NIKITA Primary Care Unavailable HALKO DO, NIKITA Attending Unavailable HALKO DO, NIKITA Attending Unavailable HALKO DO, NIKITA Primary Care Unavailable Igel RD, Lashon J Unavailable Halko IV, DO, Zack Primary Care Provider HALKO DO, NIKITA Attending Unavailable HALKO DO, NIKITA Primary Care Unavailable Halko DO, Dr. Pressley Primary Care Provider [phone] Balbir RUBIN, Dr. Pressley Referring Provider Nicholas WEBSTER-CAlexa Attending Provider Dr. Joseph Rios MD Emergency Provider [phone] Lazarus SERRANO, Dr. Perkins Admit Provider Lazarus SERRANO, Dr. Perkins Attending Provider Lazarus SERRANO, Dr. Perkins Other Provider Dr. Yaya Valencia MD Other Provider [phone] Toribio SERRANO, Dr. Agusto Simon Other Provider Heber SERRANO, Dr. Park Attending Provider Unavaila jos Qiu MD, Dr. Perkins Attending Provider Heber SERRANO, Dr. Park Other Provider Unavailable Balbir, Nikita Referring Unavailable Balbir, Nikita Primary Care Unavailable Nicholas WOOL PRESSER, Alexa Attending Unavailable Halflex, Nikita Referring Unavailable Halflex, Nikita Primary Care Unavailable Nicholas WOOL PRESSER, Alexa Attending Unavailable Balbir, Nikita Primary Care Unavailable Yaya Valencia Consulting Unavailable KitXavier york Attending Unavailable Lazarus, Gregorio Admitting Unavailable Toribio, Agusto Simon Consulting Unavailable Lazarus, Gregorio Consulting Unavailable Halko, Nikita Primary Care Unavailable Yaya Valencia Consulting Unavailable Lazarus, Gregorio Admitting Unavailable Xavier Buck Attending Unavailable Toribio, Agusto Simon Consulting Unavailable Lazarus, Gregorio Consulting Unavailable Xavier Buck Consulting Unavailable Lazarus, Gregorio Attending Unavailable MAYTE JUAREZ Attending Unavailable NEMMANDO MARTÍNEZ Referring Unavai chip GRAMAJO IV, ZACK Primary Care Unavailable Allergies Allergy Classification Reported Allergen(s) Allergy Type Date of Onset Reaction(s) Facility (20 sources) Bacitracin; Translations: [BACITRACIN] Drug Allergy 05-16-20 19 Other: See Comments, Rash, Eruption of skin (disorder) [facility] (20 sources) Latex; Translations: [LATEX] Drug Allergy 12-22-19 12 Other: See Comments, Other (See Comments) [facility] Comment on above: unsure as charted (20 sources) levoFLOXacin; Translations: [LEVOFLOXACIN] Drug Allergy 05-21-20 13 Rash, Other (See Comments) [facility] (20 sources) Sulfamethoxazole / Trimethoprim; Translations: [sulfamethoxazole-t rimethoprim] Drug Allergy 11-11-19 20 [facility] (3 sources) Sulfonamides (Antibiotic); Translations: [SULFA ANTIBIOTICS] Propensity to adverse reactions 06-27-20 19 [facility] (3 sources) Other; Translations: [OTHER] Allergy to substance 12-22-19 12 [facility] Work Phone: (5 sources) Sulfamethoxazole Drug Allergy 12-01-19 23 [facility] (5 sources) Trimethoprim Drug Allergy 12-01-19 23 [facility] (1 source) Bacitracin Drug Allergy 06-07-20 [facility] (1 source) Latex Drug allergy (disorder) 06-07-20 [facility] (1 source) levoFLOXacin Drug Allergy 06-07-20 [facility] (1 source) Sulfamethoxazole Drug Allergy 06-07-20 [facility] (1 source) Trimethoprim Drug Allergy 06-07-20 [facility] Medications Current Medications Medication Drug Class(es) Dates Sig (Normalized) Sig (Original) acetaminophen 32 mg/ml oral solution (20 sources) Start: 06-14-2025 End: 07-14-2025 take 1000 mg enteral route every six hours as needed acetaminophen (TYLENOL) 160 mg/5 mL liquid Add 31.3 mL by G-TUBE route every 6 hours as needed for pain. Do not exceed 5 doses in 24 hours. 180 mL 1 06/14/2025 10:55 AM EDT 06/14/2025 07/14/2025 Active Start: 06-07-2025 take 1 capsule by mo uth every six hours as needed for pain Acetaminophen 325 mg capsule Active 325 mg PO EVERY 6 HOURS as needed for fever or pain June 07, 2025 12:00am Start: 01-08-2020 take 2 tablets by mo uth every six hours as needed acetaminophen (TYLENOL [...] every 6 hours as needed for Pain. albuterol 0.83 mg/ml inhalation solution (2 sources) beta2-Adrenergic Agonist Start: albuterol (VENTOLIN) (2.5 MG/3ML) 0.083% nebulizer solution Use 3 mL (2.5 mg) by nebulization every 4 hours 60 Each 0 05/31/2021 Active cefdinir 300 mg oral capsule (1 source) Cephalosporin Antibacterial Start: 023 End: 023 cefdinir 300 mg oral capsule Dose : 300 mg = 1 cap(s), Oral, q12h, X 10 day(s), # 20 cap(s), 0 Refill(s), 09/17/23 11:29:00 AM EST, [facility]acy: [facility][id number], 46.8 Start Date: 09/07/23 Stop Date: 09/17/23 Status: Ordered cephalexin 500 mg oral capsule (3 sources) Cephalosporin Antibacterial Start: End: take 1 capsule by mouth three times daily cephALEXin (KEFLEX) 500 mg capsule Take 1 capsule by mouth three times a day for 5 days. 15 capsule 06/14/2025 10:55 AM EDT 06/14/2025 06/19/2025 Active cholecalciferol 0.01 mg chewable tablet (3 sources) Vitamin D Start: take 1 tablet by mouth once daily Cholecalciferol (Vitamin D3) 10 mcg (400 unit) tablet,chewable Active 10 ug PO daily February 27, 2025 12:00am vitamin ciprofloxacin 500 mg oral tablet (2 sources) Quinolone Antimicrobial Start: End: take 1 tablet by mouth twice daily ciprofloxacin HCl (CIPRO) 500 mg tablet Indications: Recurrent UTI Take 1 tablet by mouth two times a day for 7 days. 14 tablet 06/16/2025 06/23/2025 Active 24 hr dilTIAZem hydrochloride 240 mg extended release oral capsule (20 sources) Calcium Channel Whitley Start: take 1 capsule by mouth once daily Diltiazem Hcl 240 mg capsule,extended release 24 hr Active 240 mg PO daily February 27, 2025 12:00am heart rate Start: 07-04-2024 take 1 capsule by [facility] every hour, then take 1 capsule by [...] Comment on above: Take 1 capsule by mo uth every afternoon. diphenhydrAMINE hydrochloride 25 mg oral tablet (1 source) Histamine-1 Receptor Antagonist Start: 025 take 1 tablet by mouth at bedtime as needed Diphenhydramine Hcl (Allergy (Diphenhydramine)) 25 mg tablet Active 25 mg PO AT BEDTIME as needed for allergies June 08, 2025 12:00am D[facility] (3 sources) Start: 021 DME [facility] See Instructions, dispense one nebulizer with tubing and mask; dx Q05.9, R05.9, # 1 EA, 0 Refill(s), 46.8 Start Date: 08/10/21 Status: Ordered docusate sodium 100 mg oral capsule (9 sources) Start: 025 take 1 capsule by mouth twice daily docusate sodium (COLACE) 100 mg capsule Take 1 capsule by mouth two times a day. 60 capsule 1 06/14/2025 Active famotidine 8 mg/ml oral suspension (2 sources) Histamine-2 Receptor Antagonist Start: 021 take 2.5 mL by mouth twice daily famotidine (PEPCID) 40 MG/5ML oral suspension Take 2.5 mL (20 mg) by mouth 2 times daily 150 mL 2 06/01/2021 Active HANDICAP PLACARD (2 sources) Start: 020 HANDICAP PLACARD Permanent Placard. Expiration 5 years from ordering date, for the purpose of a disability. Indication for Placard: impaired mobility Diagnosis: myelomeningocele 1 Each 0 01/28/2020 Active MEDICAL SUPPLY (20 sources) Start: 024 MEDICAL SUPPLY Indications: Neurogenic bladder Lubrication jelly [id number] (1 box every 3 months) Bed pads [id number] 1 Each 11 02/28/2024 Active Start: 02-28-2024 MEDICAL SUPPLY Indications: Decreased oral intake Feed bags INF 1200-E (30 per month) Feed ext tube [id number] (4 per month) G-tube button 20F 4.0cm (2 per year) 2x2 split sponges 16-5266 (1 box per month) 2 paper tape [...] in place (HCC) 2 skin barrier rings [id number] (1 box every 2 months) Adapt adhesive remover wipes 7760 (1 box every 2 months) Obdulia colostomy bag 8901(1 box per month) Hy-tape 1/2x5 yards 105LF (1 roll every 6 months) 1 Each 11 02/12/2024 Active LELE-SAHNI GASTROSTOMY TUBE (20 sources) Start: 03-06-2024 LELE-SAHNI GASTRO STOMY TUBE Change 12F-4.0mm gastrostomy tube button every 3 months. Dispense 2 so patent can have a backup at home for emergency use. 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 20 [place], 4.0 cm Lele-sahni button 1 Each 0 06/07/2023 06/07/2023 Comment on above: 1 Tube by MISCELLANE OUS route one time only for 1 dose. 20 [place], 4.0 cm Lele-sahni button nitrofurantoin, macrocrystals 25 mg / nitrofurantoin, monohydrate 75 mg oral capsule (3 sources) Nitrofuran Antibacterial Start: 07-07-20 End: 07-14-20 take 1 capsule by mouth twice daily nitrofurantoin monohydrate and macrocrystal (MACROBID) 100 mg capsule Take 1 capsule by mouth two times a day for 7 days. Please start 7 days prior to your surgery. 14 capsule 07/07/2025 07/14/2025 Active Nut.Tx.Impaired Dige Fxn-Fiber (VITAL 1.0 SHINE) 0.04 gram- 1 kcal/mL liqd (20 sources) Start: 06-14-20 Nut.Tx.Impaired Dige Fxn-Fiber (VITAL 1.0 SHINE) 0.04 gram- 1 kcal/mL liqd Indications: On tube feeding diet Infuse 5 cartons Vital 1.0 or equivalent peptide based formula at 85 ml/hr for 14 hours via Inifinity pump. Flush tube wit 60 ml before starting tube feed and 60 ml after tube feeding completed [id number] mL 11 06/14/2025 Active Start: 01-27-2025 Nut.Tx.Impaire d Dige Fxn-Fiber (VITAL 1.0 SHINE) 0.04 gram- 1 kcal/mL liqd Indications: On tube feeding diet Infuse 5 cartons Vital 1.0 or equivalent peptide based formula at 85 ml/hr for 14 hours via Inifinity pump. Flush tube wit 60 ml before starting tube feed and 60 ml after tube feeding completed 48158 mL 11 01/27/2025 Active Start: 01-19-2024 End: 01-27-2025 Nut.Tx.Impaired Dige Fxn-Fib er (VITAL 1.0 SHINE) 0.04 gram- 1 kcal/mL liqd Indications: On tube feeding diet Infuse 5 cartons Vital 1.0 or equivalent peptide based formula at 85 ml/hr for 14 hours via Inifinity pump. Flush tube wit 60 ml before starting tube feed and 60 ml after tube feeding completed 37234 mL 11 01/19/2024 01/27/2025 Discontinued Start: 01-19-2024 Nut.Tx.Impaire d Dige Fxn-Fiber (VITAL 1.0 SHINE) 0.04 gram- 1 kcal/mL liqd Indications: On tube feeding diet Infuse 5 cartons Vital 1.0 or equivalent peptide based formula at 85 ml/hr for 14 hours via Inifinity pump. Flush tube wit 60 ml before starting tube feed and 60 ml after tube feeding completed 74187 mL 11 01/19/2024 Active Comment on above: Infuse 5 cartons Vit al 1.0 or equivalent peptide based formula at 85 ml/hr for 14 hours via Inifinity pump. Flush tube wit 60 ml before starting tube feed and 60 ml after tube feeding completed Nut.Tx.Impaired Dige Fxn-Fiber (Vital Peptide 1.5 Shine) 0.07 gram- 1.5 kcal/mL liquid (5 sources) Start: 12-01-2022 Nut.Tx.Impaired Dige Fxn-Fiber (Vital Peptide 1.5 Shine) 0.07 gram- 1.5 kcal/mL liquid Active 0 feeding tube .HS December 01, 2022 1:00am feed 85ml/hr via feeding tube HS; Start: 12-01-2022 Nut.Tx.Impaire d Dige Fxn-Fiber (Vital [...] SHINE) LIQD Take by mouth 0 Active ondansetron 4 mg disintegrating oral tablet (5 sources) Serotonin-3 Receptor Antagonist Start: 09-07-2023 End: 10-07-2023 ondansetron 4 mg oral tablet, disintegrating Dose : 4 mg = 1 tab(s), Oral, q8h, X 30 day(s), # 90 tab(s), 0 Refill(s), 10/07/23 11:29:[address] [facility], [id number] Start Date: 09/07/23 Stop Date: 10/07/23 Status: [...] Drug Class(es) Dates Sig (Normalized) Sig (Original) amoxicillin 50 mg/ml oral suspension (5 sources) Penicillin-class Antibacterial Start: 10-28-2013 End: 01-30-2014 take 600 mg by mouth every twelve hours Amoxicillin 250 MG/5 ML Ml Discontinued 600 mg PO Q12H October 28, 2013 1:00am January 30, 2014 10:38am amoxicillin 875 mg / clavulanate 125 mg oral tablet (15 sources) Penicillin-class Antibacterial Start: 10-26-2018 End: 02-06-2019 Amoxicillin-Pot Clavulanate (Augmentin 875-125 Tablet) 1 EACH [...] 01, 2013 1:00am January 30, 2014 10:38am Kenqi-Rsck-Piiud-Collag-Mv-M in (Mark (With Collagen)) 1 EACH powder in packet (5 sources) Start: 10-25-2018 End: 12-01-2022 Oucdr-Ccnd-Hxuco-Collag-Mv-M in (Mark (With Collagen)) 1 EACH powder in packet Discontinued 1 NMA PO TWICE A DAY October 25, 2018 1:00am December 01, 2022 2:12pm S Start: 10-25-2018 End: 12-01-2022 Hwcnu-Vlbn-Favky-Collag-Mv-M in (Mark (With Collagen)) 1 EACH powder in packet Discontinued 1 EACH PO TWICE A DAY October 25, 2018 1:00am December 01, 2022 2:12pm cefepime 1000 mg injection (5 sources) Cephalosporin Antibacterial Start: 05-01-2014 End: 05-06-2014 take 1 g intravenously twice daily Cefepime (Maxipime) 1 GM Vial.Port Discontinued 1.5 g IV TWICE A DAY May 01, 2014 12:00am May 06, 2014 5:16pm cyproheptadine hydrochloride 4 mg oral tablet (14 sources) Start: 09-21-2021 take 1 tablet by [...] Supplemt, Lactose-Reduced (Ensure Plus) 237 ML Liquid (5 sources) Start: 10-25-2018 End: 02-06-2019 take 1 [...] 1 spray(s) nasa l route once Ipratropium [place] Active 2 SPRAY INTRANASAL ONCE December 01, 2022 1:00am administer into each nostril Comment on above: Use in the nose. Ipratropium [place] 21 mcg (0.03 %) spray,non-aerosol (3 sources) Start: 12-01-19 End: 02-28-20 Ipratropium [place] 21 mcg (0.03 %) spray,non-aerosol Discontinued 2 NMA INTRANASAL ONCE as needed for allergy symptoms December 01, 2022 1:00am February 27, 2025 2:54pm administer into each nostril levoFLOXacin 500 mg oral tablet (2 sources) Quinolone Antimicrobial Start: 06-14-20 End: 06-19-20 take 1 tablet by mouth once daily levoFLOXacin (LEVAQUIN) 500 mg tablet Take 1 tablet by mouth once daily for 5 days. 5 tablet 06/14/2025 10:55 AM EDT 06/14/2025 06/16/2025 Discontinued metroNIDAZOLE 500 mg oral tablet (2 sources) Nitroimidazole Antimicrobial Start: 02-17-20 metroNIDAZOLE (FLAGYL) 500 mg tablet Take 1 tablet by mouth at 9pm and take 1 tablet by mouth at 11pm the night before surgery. 2 tablet 0 02/16/2023 Active Comment on above: Take 1 tablet by kait th at 9pm and take 1 tablet by mouth at 11pm the night before surgery. neomycin sulfate 500 mg oral tablet (2 sources) Aminoglycoside Antibacterial Start: 02-17-20 neomycin 500 mg tablet Take 2 tablets [...] gram- 1.5 kcal/mL liqd (8 sources) Start: 06-21-20 End: 01-26-20 Nut.Tx.Impaired Dige Fxn-Fiber (VITAL PEPTIDE 1.5 SHINE) 0.07 gram- 1.5 kcal/mL liqd Indications: Decreased oral intake 574 mL by G-TUBE route once daily. 69458 mL 11 06/21/2023 01/26/2024 Discontinued (Course of therapy completed) Start: 06-21-2023 Nut.Tx.Impaire d Dige Fxn-Fiber (VITAL PEPTIDE 1.5 SHINE) 0.07 gram- 1.5 kcal/mL liqd Indications: Decreased oral intake 574 mL by G-TUBE route once daily. 39358 mL 11 06/21/2023 Active Comment on above: 574 mL by G-TUBE rou te once daily. Nutritional Supplement - Fiber (PEPTIDE FORMULA 1.5) liqd (15 sources) Nutritional Supp lement - Fiber (PEPTIDE FORMULA 1.5) liqd Take by mouth. 0 Active Comment on above: Take by mouth. Nutritional Supplement-Caloric (Benecalorie) 7.5 KCAL/ML liquid (5 sources) Start: 10-25-2018 End: 12-01-2022 Nutritional Supplement-Caloric (Benecalorie) 7.5 KCAL/ML liquid Discontinued 7.5 kCal/[oz_av] PO DAILY October 25, 2018 1:00am December 01, 2022 2:14pm Start: 10-25-2018 End: 12-01-2022 Nutritional Supplement-Calor ic (Benecalorie) 7.5 KCAL/ML liquid Discontinued 7.5 KCAL PO DAILY October 25, 2018 1:00am December 01, 2022 2:14pm nystatin 100 unt/mg topical powder (3 sources) Polyene Antifungal Start: 06-05-2025 End: 06-07-2025 Nystatin 100,000 unit/gram powder Discontinued TOPICAL TWICE A DAY June 05, 2025 12:00am June 07, 2025 10:46am 24 hr oxybutynin chloride 10 mg extended [...] by mouth once daily. polyethylene glycol 3350 67409 mg powder for oral solution (15 sources) Osmotic Laxative Start: 3 End: 3 take 17 g by mouth once daily Polyethylene Glycol 3350 17 GM packet Discontinued 17 g PO DAILY 30 0 May 06, 2014 5:16pm December 01, 2022 2:14pm tamsulosin hydrochloride 0.4 mg oral capsule (5 sources) alpha-Adrenergic Whitley Start: 3 End: 4 take 1 capsule by mouth once daily Tamsulosin 0.4 MG capsule Discontinued 0.4 mg PO DAILY July 22, 2013 12:00am May 06, 2014 5:16pm vitamin e 180 mg oral capsule (5 sources) Start: 9 End: 3 Vitamin E (Dl, Acetate) 400 UNITS capsule Discontinued 400 U PO DAILY October 25, 2018 1:00am December 01, 2022 2:14pm Problems Active Problems Problem Classification Problem Date Documented Date Episodic/Chronic Calculus of urinary tract (20 sources) Kidney stone; Translations: [Calculus of kidney] Onset: 10-03-20 16 01-08-2020 Episodic Cardiac dysrhythmias (13 sources) Tachycardia; Translations: [Tachycardia, unspecified] Onset: 07-03-20 25 08-25-2023 Episodic Chronic ulcer of skin (20 sources) Pressure ulcer of buttock stage 4; Translations: [Pressure ulcer of right buttock, stage 4] Onset: 09-14-20 12 06-01-2019 Chronic Comment on above: extending from the r ight ischial area extended into the ri ght trochanteric area Developmental disorders (4 sources) Intellectual disability; Translations: [Unspecified intellectual disabilities] Onset: 02-17-20 17 02-16-2017 Chronic Diabetes mellitus without complication (4 sources) Acute hyperglycemia; Translations: [Hyperglycemia, unspecified] 06-07-2025 Episodic Diseases of white blood cells (4 sources) Leukocytosis; Translations: [Elevated white blood cell count, unspecified] 06-07-2025 Chronic Essential hypertension (4 sources) Hypertensive disorder; Translations: [Essential (primary) hypertension] 06-05-2025 Chronic Genitourinary symptoms and ill-defined conditions (20 sources) Suprapubic urinary catheter in situ; Translations: [Other cystostomy status] Onset: 01-01-20 20 01-01-2020 Chronic Genitourinary symptoms and ill-defined conditions (10 sources) Retention of urine; Translations: [Retention of urine, unspecified] Onset: 03-25-20 Episodic Heart valve disorders (1 source) Heart murmur 07-04-2024 Episodic Immunizations and screening for infectious disease (5 sources) Culture positive for methicillin resistant Staphylococcus aureus; Translations: [Carrier or suspected carrier of Methicillin resistant Staphylococcus aureus] 04-02-2019 Episodic Infective arthritis and osteomyelitis (except that caused by tuberculosis or sexually transmitted disease) (20 sources) Chronic osteomyelitis of pelvis; Translations: [Other chronic osteomyelitis, unspecified thigh] Onset: 12-29-1911-15-2021 Chronic Comment on above: right sacral area Malaise and fatigue (7 sources) Fatigue; Translations: [Other fatigue] 08-19-2022 Episodic Mood disorders (6 sources) Depressive disorder; Translations: [Depression] 02-27-2025 Chronic Mycoses (6 sources) Candidiasis; Translations: [Onychomycosis] 06-10-2020 Episodic Nervous system congenital anomalies (20 sources) Spina bifida with hydrocephalus; Translations: [Lumbar spina bifida with hydrocephalus] Onset: 08-04-19 97 01-01-2020 Chronic Comment on above: thoracic Noninfectious gastroenteritis (1 source) Gastroenteritis; Translations: [Noninfective gastroenteritis and colitis, unspecified] Episodic Nutritional deficiencies (9 sources) Vitamin D deficiency; Translations: [Vitamin D [...] Onset: 03-25-20 Chronic Other connective tissue disease (5 sources) History of osteomyelitis; Translations: [Personal history [...] [Neurogenic bowel, not elsewhere classified] Onset: 06-13-20 17 Chronic Other gastrointestinal disorders (1 source) Colostomy status; Translations: [Colostomy present ([facility])] Onset: 01-01-20 20 Chronic Other gastrointestinal disorders (1 source) Gastrostomy status; Translations: [G tube feedings ([facility])] Onset: 01-08-20 Chronic Other gastrointestinal disorders (1 source) Neurogenic bowel, not elsewhere classified; Translations: [Neurogenic bowel] Onset: 03-25-20 Chronic Other injuries and conditions due to external causes (4 sources) Systemic inflammatory response syndrome; Translations: [Systemic inflammatory response syndrome (SIRS) of non-infectious origin without acute organ dysfunction] 06-07-2025 Episodic Other lower respiratory disease (3 sources) Cough [...] Onset: 03-25-20 Chronic Other nervous system disorders (11 sources) Neurological muscle weakness; Translations: [Myoneural disorder, unspecified] 12-01-2022 Episodic Other nervous system disorders (1 source) Myoneural disorder, unspecified; Translations: [Other diseases of respiratory system, not elsewhere classified] 12-01-2022 Episodic Other nutritional; endocrine; and metabolic disorders (3 sources) Failure to thrive 04-02-2019 Episodic Other screening for suspected conditions (not mental disorders or infectious disease) (19 sources) Patient encounter status; Translations: [Encounter for screening for lipoid disorders] Onset: 03-25-20 Episodic Other skin disorders (1 source) Pigmented skin lesion 10-26-2023 Episodic Other upper respiratory infections (1 source) Sinusitis; Translations: [Chronic sinusitis, unspecified] 01-24-2025 Chronic Other upper respiratory infections (1 source) Viral upper respiratory tract infection; Translations: [Acute upper respiratory infection, unspecified] 02-02-2025 Episodic Paralysis (7 sources) Paraplegia; Translations: [Paraplegia, unspecified] Onset: 03-25-20 Chronic Residual codes; unclassified (20 sources) Obstructive sleep apnea syndrome; Translations: [Obstructive sleep apnea (adult) (pediatric)] Onset: 01-24-20 22 01-24-2022 Chronic Residual codes; unclassified (2 sources) Obstructive sleep apnea (adult) (pediatric); Translations: [Obstructive sleep apnea (adult)(pediatric)] Onset: 11-15-19 22 12-01-2022 Chronic Residual codes; unclassified (3 sources) Gastrointestinal tube in situ 11-15-2019 Episodic Residual codes; unclassified (3 sources) Immunization due 08-10-2021 Episodic Residual codes; unclassified (1 source) Postoperative state; Translations: [Other specified postprocedural states] Episodic Residual codes; unclassified (2 sources) Screening due 11-09-2022 Episodic Residual codes; unclassified (1 source) Tube feeding diet; Translations: [Other specified health status] 01-27-2025 Episodic Residual codes; unclassified (7 sources) Difficult venous access; Translations: [Other specified health status] Onset: 07-03-2007-03-2025 Episodic Respiratory failure; insufficiency; arrest (adult) (20 sources) Chronic respiratory failure; Translations: [Chronic respiratory failure, unspecified whether with hypoxia or hypercapnia] 12-01-2022 Chronic Comment on above: Chronic hypoxic and possibly hypercarbic respiratory failure, Chronic ventilator dependence due to severe scoliosis, spina bifida, hydrocephalus with BRIM SHAPER shunt, 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 He needs a electric portable concentrator, not an electric stationary concentrator as he was delivered. We will try again with [employer] today to obtain the right equipment that [...] sleep and/or central apnea, diagnosed clinically at [facility] no prior sleep study. - Empiric adjustment based on the trilogy download seems to have resulted in improved sleep quality and daytime energy.Intractable daily nausea vomiting, gradually increasing, tentative surgery date March 14 for hernia reduction and colostomy revision, [facility].Severe protein calorie malnutrition, he is on a [...] cushion use. I will order this with [facility] when we make his trilogy adjustments.-The patient [...] Unclassified (1 source) Patient encounter status 07-04-2024 Unclassified (8 sources) Autogenerated Problem Onset: 06-16-2006-16-2025 Urinary tract infections (15 sources) Urinary tract infectious disease; Translations: [Urinary tract infection, site not specified] Onset: 06-11-2004-02-2019 Episodic Past or Other Problems Problem Classification Problem Date Documented Da te Episodic/Chronic Abdominal hernia (20 sources) Parastomal hernia; Translations: [Parastomal hernia without obstruction or gangrene] Onset: 11-04-2020 Resolved: 03-25-2023 11-13-2020 Episodic Acute posthemorrhagic anemia (20 sources) Anemia following acute postoperative blood loss; Translations: [Acute posthemorrhagic anemia] Onset: 05-17-2019 05-17-2019 Episodic Complications of surgical procedures or medical care (20 sources) Postoperative hypovolemic shock; Translations: [Other postprocedural shock, initial encounter] Onset: 11-06-2020 Resolved: 03-25-2023 11-13-2020 Episodic Fluid and electrolyte disorders (20 sources) Metabolic acidosis; Translations: [Metabolic acidosis] Onset: [...] 10-12-2015 10-12-2015 Episodic Other nervous system disorders (20 sources) Acute postoperative pain; Translations: [Other acute [...] 06-09-2019 06-01-2019 Episodic Septicemia (except in labor) (20 sources) Sepsis; Translations: [Sepsis, unspecified organism] Onset: 01-04-2020 Resolved: 01-08-2020 06-09-2019 Episodic Superficial injury; contusion (2 sources) Blister of cheek without infection; Translations: [Blister (nonthermal) of other part of head, initial encounter] Onset: 05-17-2019 05-17-2019 Episodic Results Test Name Value Interpretation Reference Range Facility [id number] 07-18-2025 [id number] O ID: [id number] Author: MAYTE JUAREZ PT, KWASI Service: ? Author Type: Local Superintendent Type: [id number] Filed: 07/18/2025 15:03 Note Text: [facility] Physical Therapy Plan of Care Certification Patient Name: Marcos Aguirre : 1995 [facility] #: [id number] Date: 07/10/2025 To: Mando Gibbs All* From Therapist: Mayte Juarez PT, DPT RE: Patient Certification/ Recertification Your review, approval and electronic signature are required in order to comply with Payor: [employer] / Plan: [employer] PPO TPA / Product Type: PPO / regulations. The identified Physical Therapy PLAN OF CARE for the patient is as follows: G82.20 Paraplegia ([facility]) PLAN OF CARE: SUMMARY/ASSESSMENT: Marcos gAuirre presents with a diagnosis of Spina Bifida resulting in the following impairments in strength, gait, balance, and sensation negatively impacting toileting, bathing, dressing, grooming/hygiene, transfers, home management (laundry/cleaning/cooki ng), and ambulation/mobility. These deficits require a power wheelchair as mentioned above to participate in home based activities. Additionally, this equipment will allow community access and mobility. Without this device or a delay in obtaining this equipment will result in further breakdown of current equipment, decreased participation in work/recreation, and further decline in overall independence requiring increased help from family. Goals for Episode of Care created on Start of Care Date: 07/10/25 through GOALS TO BE ACCOMPLISHED THROUGH APPROPRIATE WHEELCHAIR AND SEATING: Upgrade postural/truncal stability to increase function Pressure relief to deter, hinder, prevent decubitus ulcers Provide independent means of mobility to compensate for lost ambulation Increase sitting tolerence; decrease time in bed Improve functional level Improve head position/visual field Modularity of equipment to allow for disease progression and/or growth/weight gain Increase ROM, maintain skeletal alignment prevent deformities Improve caregiving tasks Meet transportation needs Planned Interventions, Frequency, and Duration: Clinical Therapy assessment for wheelchair needs completed today. Patient will follow up directly with vendor for the delivery of the wheelchair. Patient to be see for Patient demonstrates good understanding of plan of care and treatment. The above goals and plan of care were discussed and agreed upon by patient/family. Date of last physician visit to determine need: N/A For further details regarding this patient refer to the Physical Therapy electronically documented visit dated 07/10/2025. Provider Attestation I have reviewed the treatment plan for Marcos Aguirre, CCF# [id number] for the period of -- , established on 07/10/2025. Signature certifies the need for therapy services. [facility] CNOVon 07-10-2025 CNOV Office Visit ([facility] ) MARCOS AGUIRRE ([id number]) 1995 M Date Time Provider Department 07/10/25 2:15 PM MAYTE JUAREZ During your visit today, we recorded the following information about you: Mayte Juarez, PT, DPT 07/23/2025 9:57 [facility] [address] [address] Dept: [phone] Dept Start of Care Date: 07/10/25 Patient Identified by Name and Date of : Yes [facility]TS THERAPY PHYSICAL THERAPY SEATING AND WHEELED MOBILITY EVALUATION Persons Present at Evaluation: patient and family Vendor Present: other: [employer] SUBJECTIVE: Marcos Aguirre is a 29 year old male seen today for wheelchair evaluation. Patient Goals: patient is here to obtain a wheelchair or power mobility device to increase function in the home environment. Current activities in the home and community that Marcos Aguirre feels are mobility limitations and would be improved with the use of a mobility device: mobility within the household and community / maneuvering between rooms ; dressing ; grooming ; bathing ; toileting ; working ; transfers OBJECTIVE MEASURES WITH LEVEL OF FUNCTION: PHYSICAL STATUS: Height: 61in Weight: 105# Communication:able to verbally communicate needs Skin Integrity: intact Cardio-Respiratory: How far does the patient demonstrate that he can walk and/or self propel a manual wheelchair before becoming short of breath? 100ft What ADL's make him short of breath? toileting, bathing, dressing, grooming/hygiene, transfers, home management (laundry/cleaning/cooki ng), and ambulation/mobility Vascular: Does the patient have edema of the UE/LE's: No The patient does not have edema. If yes, what treatments have been attempted? N/a FUNCTIONAL STATUS: Eating: supervision/set-up Upper body Dressing: independent Lower body Dressing: total assistance/dependent Grooming: total assistance/dependent Toileting: dependent Bathing: dependent Instrumental Activities of Daily Living: Requires assistance for: cooking, shopping, laundry, and cleaning Transfers: Dependent Method: mechanical lift device Ambulation: wheelchair dependent How far can he walk without stopping before his symptoms interfere? Chair dependent Why is his current assistive device no longer sufficient for mobility in the home? Current device has multiple mechanical failures and is no longer fitting the patient appropriately. Progression of ambulation difficulty over time: non-ambulatory Time spent in wheelchair: 12 hours per day Transportation: handicap accessible van ; public bus LIVING SITUATION: Entrance/Exit used: ramped and ground level CURRENT WHEELCHAIR EQUIPMENT: Present wheelchair: Power Assist Wheel chair with emotion wheels Age of current equipment: 5 years Problems with Current Seating/Wheelchair: is old (5+ years) and in need of replacement and is in disrepair and requires significant repairs and/or modifications to continue to safety use SEATING EVALUATION (edge of mat / in current wheelchair): Sitting posture: Kyphotic, Scoliotic apex left, and Right hip higher Sitting Balance: Poor: requires support to maintain balance Pelvic Mobility Anterior/Posterior: neutral not achieved Rotation: neutral not achieved Obliquity: neutral not achieved LOWER EXTREMITY FUNCTION ROM: Hip flexion N/A R Major limitation L Knee flexion N/A R Major limitation L Ankle: Right: N/A Left: Moderately plantar flexed Muscle Tone: rigidity Muscle Strength Limitations: RIGHT LEFT Hip flexion 0/5 0/5 Hip extension 0/5 0/5 Knee flexion 0/5 0/5 Knee extension 0/5 0/5 Ankle dorsiflexion 0/5 0/5 Ankle plantarflexion 0/5 0/5 LE Sensation: absent UPPER EXTREMITY FUNCTION: ROM Limitations: WFL Muscle Tone: normal Muscle Strength Limitations: RIGHT LEFT Shoulder flexion 4-/5 4-/5 Shoulder abduction 4/5 4/5 Elbow flexion 4+/5 4+/5 Elbow extension 4+/5 4+/5 Wrist flexion 4+/5 4+/5 Wrist extension 4/5 4/5 [place] Adjuster strength 4/5 4/5 Hand Dexterity: WFL UE sensation: WFL Head Control and Position Control: good Position: lateral flexion to left side Head Control Against [place]: able to maintain line of sight against gravity PRESSURE MANAGEMENT ISSUES RISK FACTORS PRESENT: 1. Sensory perception: completely limited 2. Moisture: rarely moist and external catheter and colostomy 3. Activity: chairfast 4. Mobility: very limited 5. Nutrition: probably adequate 6. Friction and Shear: potential problem RISK OF SKIN BREAKDOWN: Moderate Risk Current method of Pressure Relief: requires assistance with position changes / non-functional TREATMENT: Evaluation Wheelchair Management (00971): Discussion of each recommended seating function / equipment and risks and benefits of each described component as follows: (more content not included)... Normal [facility] Urinalysis complete panel (U )on 07-03-2025 Bacteria LM.HPF (Urine sed) [#/Area] Negative Negative /HPF [facility] Bilirubin Ql (U) Negative Negative [facility] Clarity (Unsp spec) Cloudy Abnormal Clear [facility] Color (U) Yellow Yellow [facility] Epithelial cells LM.HPF (Urine sed) [#/Area] Few /HPF [facility] Glucose Test strip (U) [Mass/Vol] Negative Negative [facility] Hemoglobin Ql (U) 1+ Abnormal Negative [facility] Hyaline casts (Urine sed) [#/Area] 1-3 /LPF Abnormal 0 /LPF [facility] Interpretation and review of laboratory results Abnormal [facility] Ketones Ql (U) Negative Negative [facility] Leukocyte esterase Test strip Ql (U) 3+ Abnormal Negative [facility] Nitrite Ql (U) Negative Negative [facility] pH (U) 8.5 [pH] High 5.0 - 8.0 [facility] Protein (U) [Mass/Vol] 1+ Abnormal Negative [facility] RBC LM.HPF (Urine sed) [#/Area] /[HPF] Abnormal 0-2 /HPF [facility] Specific gravity (U) [Rel density] 1.009 1.005 - 1.030 [facility] Urobilinogen Ql (U) 0.2 EU/dL 0.2-1.0 EU/dL [facility] WBC LM.HPF (Urine sed) [#/Area] /[HPF] Abnormal 0-5 /HPF [facility] This test was devnathaniel ped and its performance characteristics determined by [facility]'s Yaya JDarcy [facility] Pathology [facility] Laboratory [facility] [place] ([facility]). It has not been cleared or approved by the FDA. [facility] is regulated under CLIA as qualified to perform high-complexity testing. This test is used for clinical purposes. It should not be regarded as investigational or for research. [facility] Basic Metabolic Profile (BMP )on 06-14-2025 BUN Normal 4-19 [facility] Comment on above: Result Comment: Canc elled via OM: Order cancelled - Patient discharged Performed By: #### L 100.0100, L500.2500 #### [facility] [address] [place], [address] BUN/CRE Normal 10-20 [facility] Comment on above: Result Comment: Canc elled via OM: Order cancelled - Patient discharged Performed By: #### L 100.0100, L500.2500 #### [facility] [address] [place], [address] Calcium Normal 7.6-11.0 [facility] Comment on above: Result Comment: Canc elled via OM: Order cancelled - Patient discharged Performed By: #### L 100.0100, L500.2500 #### [facility] [address] [place], [address] CL Normal 98-108 [facility] Comment on above: Result Comment: Canc elled via OM: Order cancelled - Patient discharged Performed By: #### L 100.0100, L500.2500 #### [facility] [address] [place], [address] CO2 Normal 21.0-32.0 [facility] Comment on above: Result Comment: Canc elled via OM: Order cancelled - Patient discharged Performed By: #### L 100.0100, L500.2500 #### [facility] [address] [place], [address] CREAT,SERUM Normal 0.70-1.20 [facility] Comment on above: Result Comment: Canc elled via OM: Order cancelled - Patient discharged Performed By: #### L 100.0100, L500.2500 #### [facility] [address] [place], [address] eGFR Normal >60 [facility] Comment on above: Result Comment: Canc elled via OM: Order cancelled - Patient discharged Performed By: #### L 100.0100, L500.2500 #### [facility] [address] [place], [address] GAP Normal 5-15 [facility] Comment on above: Result Comment: Canc elled via OM: Order cancelled - Patient discharged Performed By: #### L 100.0100, L500.2500 #### [facility] [address] [place], [address] GLU Normal 70-99 [facility] Comment on above: Result Comment: Canc elled via OM: Order cancelled - Patient discharged Performed By: #### L 100.0100, L500.2500 #### [facility] [address] [place], [address] Potassium Normal 3.3-5.1 [facility] Comment on above: Result Comment: Canc elled via OM: Order cancelled - Patient discharged Performed By: #### L 100.0100, L500.2500 #### [facility] [address] [place], [address] Basic Metabolic Profile (BMP) Normal 133-145 [facility] Comment on above: Result Comment: Canc elled via OM: Order cancelled - Patient discharged Performed By: #### L 100.0100, L500.2500 #### [facility] [address] [place], [address] CBC W/Diff, Automatedon 08-2 Absolute Neut Normal 2.0-7.7 [facility] Comment on above: Result Comment: Canc elled via OM: Order cancelled - Patient discharged Performed By: #### L 100.0100, L500.2500 #### [facility] [address] [place], [address] HCT Normal 40-54 [facility] Comment on above: Result Comment: Canc elled via OM: Order cancelled - Patient discharged Performed By: #### L 100.0100, L500.2500 #### [facility] [address] [place], [address] HGB Normal 13.0-16.5 [facility] Comment on above: Result Comment: Canc elled via OM: Order cancelled - Patient discharged Performed By: #### L 100.0100, L500.2500 #### [facility] [address] [place], [address] MCH Normal 27.0-32.0 [facility] Comment on above: Result Comment: Canc elled via OM: Order cancelled - Patient discharged Performed By: #### L 100.0100, L500.2500 #### [facility] [address] [place], [address] MCHC Normal 32-36 [facility] Comment on above: Result Comment: Canc elled via OM: Order cancelled - Patient discharged Performed By: #### L 100.0100, L500.2500 #### [facility] [address] [place], [address] MCV Normal 80-94 [facility] Comment on above: Result Comment: Canc elled via OM: Order cancelled - Patient discharged Performed By: #### L 100.0100, L500.2500 #### [facility] [address] [place], [address] NEUT% Normal 47-70 [facility] Comment on above: Result Comment: Canc elled via OM: Order cancelled - Patient discharged Performed By: #### L 100.0100, L500.2500 #### [facility] [address] [place], [address] PLT Normal 150-450 [facility] Comment on above: Result Comment: Canc elled via OM: Order cancelled - Patient discharged Performed By: #### L 100.0100, L500.2500 #### [facility] [address] [place], [address] RBC Normal 4.6-6.2 [facility] Comment on above: Result Comment: Canc elled via OM: Order cancelled - Patient discharged Performed By: #### L 100.0100, L500.2500 #### [facility] [address] [place], [address] RDW CV Normal 11.6-14.6 [facility] Comment on above: Result Comment: Canc elled via OM: Order cancelled - Patient discharged Performed By: #### L 100.0100, L500.2500 #### [facility] [address] [place], [address] RDW SD Normal 35.1-43.9 [facility] Comment on above: Result Comment: Canc elled via OM: Order cancelled - Patient discharged Performed By: #### L 100.0100, L500.2500 #### [facility] [address] [place], [address] WBC Normal 4.4-11.0 [facility] Comment on above: Result Comment: Canc elled via OM: Order cancelled - Patient discharged Performed By: #### L 100.0100, L500.2500 #### [facility] [address] [place], [address] Basic Metabolic Profile (BMP )on 06-13-2025 BUN Normal 4-19 [facility] Comment on above: Result Comment: Canc elled via OM: Order cancelled - Patient discharged Performed By: #### L 501.9985 #### [facility] [address] [place], [address] BUN/CRE Normal 10-20 [facility] Comment on above: Result Comment: Canc elled via OM: Order cancelled - Patient discharged Performed By: #### L 501.9985 #### [facility] [address] [place], [address] Calcium Normal 7.6-11.0 [facility] Comment on above: Result Comment: Canc elled via OM: Order cancelled - Patient discharged Performed By: #### L 501.9985 #### [facility] [address] [place], [address] CL Normal 98-108 [facility] Comment on above: Result Comment: Canc elled via OM: Order cancelled - Patient discharged Performed By: #### L 501.9985 #### [facility] [address] [place], [address] CO2 Normal 21.0-32.0 [facility] Comment on above: Result Comment: Canc elled via OM: Order cancelled - Patient discharged Performed By: #### L 501.9985 #### [facility] [address] [place], [address] CREAT,SERUM Normal 0.70-1.20 [facility] Comment on above: Result Comment: Canc elled via OM: Order cancelled - Patient discharged Performed By: #### L 501.9985 #### [facility] [address] [place], [address] eGFR Normal >60 [facility] Comment on above: Result Comment: Canc elled via OM: Order cancelled - Patient discharged Performed By: #### L 501.9985 #### [facility] [address] [place], [address] GAP Normal 5-15 [facility] Comment on above: Result Comment: Canc elled via OM: Order cancelled - Patient discharged Performed By: #### L 501.9985 #### [facility] [address] [place], [address] GLU Normal 70-99 [facility] Comment on above: Result Comment: Canc elled via OM: Order cancelled - Patient discharged Performed By: #### L 501.9985 #### [facility] [address] [place], [address] Potassium Normal 3.3-5.1 [facility] Comment on above: Result Comment: Canc elled via OM: Order cancelled - Patient discharged Performed By: #### L 501.9985 #### [facility] [address] [place], [address] Basic Metabolic Profile (BMP) Normal 133-145 [facility] Comment on above: Result Comment: Canc elled via OM: Order cancelled - Patient discharged Performed By: #### L 501.9985 #### [facility] [address] [place], [address] CBC W/Diff, Automatedon 08- Absolute Neut Normal 2.0-7.7 [facility] Comment on above: Result Comment: Canc elled via OM: Order cancelled - Patient discharged Performed By: #### L 501.9985 #### [facility] [address] [place], [address] HCT Normal 40-54 [facility] Comment on above: Result Comment: Canc elled via OM: Order cancelled - Patient discharged Performed By: #### L 501.9985 #### [facility] [address] [place], [address] HGB Normal 13.0-16.5 [facility] Comment on above: Result Comment: Canc elled via OM: Order cancelled - Patient discharged Performed By: #### L 501.9985 #### [facility] [address] [place], [address] MCH Normal 27.0-32.0 [facility] Comment on above: Result Comment: Canc elled via OM: Order cancelled - Patient discharged Performed By: #### L 501.9985 #### [facility] [address] [place], [address] MCHC Normal 32-36 [facility] Comment on above: Result Comment: Canc elled via OM: Order cancelled - Patient discharged Performed By: #### L 501.9985 #### [facility] [address] [place], [address] MCV Normal 80-94 [facility] Comment on above: Result Comment: Canc elled via OM: Order cancelled - Patient discharged Performed By: #### L 501.9985 #### [facility] [address] [place], [address] NEUT% Normal 47-70 [facility] Comment on above: Result Comment: Canc elled via OM: Order cancelled - Patient discharged Performed By: #### L 501.9985 #### [facility] [address] [place], [address] PLT Normal 150-450 [facility] Comment on above: Result Comment: Canc elled via OM: Order cancelled - Patient discharged Performed By: #### L 501.9985 #### [facility] [address] [place], [address] RBC Normal 4.6-6.2 [facility] Comment on above: Result Comment: Canc elled via OM: Order cancelled - Patient discharged Performed By: #### L 501.9985 #### [facility] [address] [place], [address] RDW CV Normal 11.6-14.6 [facility] Comment on above: Result Comment: Canc elled via OM: Order cancelled - Patient discharged Performed By: #### L 501.9985 #### [facility] [address] [place], [address] RDW SD Normal 35.1-43.9 [facility] Comment on above: Result Comment: Canc elled via OM: Order cancelled - Patient discharged Performed By: #### L 501.9985 #### [facility] [address] [place], [address] WBC Normal 4.4-11.0 [facility] Comment on above: Result Comment: Canc elled via OM: Order cancelled - Patient discharged Performed By: #### L 501.9985 #### [facility] [address] [place], [address] Culture, Blood (WB)on 2024 CUB spiked fever 102 tod ay No growth in 5 days. Normal [facility] Comment on above: Performed By: #### L 501.5200, L501.3620, L300.3900, L300.4310 #### [facility] [address] [place], [address] Basic Metabolic Profile (BMP )on 06-12-2025 BUN Normal 4-19 [facility] Comment on above: Result Comment: Canc elled via OM: Order cancelled - Patient discharged Performed By: #### L 501.5200, [id number], L300.3900, L300.4310 #### [facility] [address] [place], [address] BUN/CRE Normal 10-20 [facility] Comment on above: Result Comment: Canc elled via OM: Order cancelled - Patient discharged Performed By: #### L 501.5200, [id number], L300.3900, L300.4310 #### [facility] [address] [place], [address] Calcium Normal 7.6-11.0 [facility] Comment on above: Result Comment: Canc elled via OM: Order cancelled - Patient discharged Performed By: #### L 501.5200, [id number], L300.3900, L300.4310 #### [facility] [address] [place], [address] CL Normal 98-108 [facility] Comment on above: Result Comment: Canc elled via OM: Order cancelled - Patient discharged Performed By: #### L 501.5200, [id number], L300.3900, L300.4310 #### [facility] [address] [place], [address] CO2 Normal 21.0-32.0 [facility] Comment on above: Result Comment: Canc elled via OM: Order cancelled - Patient discharged Performed By: #### L 501.5200, [id number], L300.3900, L300.4310 #### [facility] [address] [place], [address] CREAT,SERUM Normal 0.70-1.20 [facility] Comment on above: Result Comment: Canc elled via OM: Order cancelled - Patient discharged Performed By: #### L 501.5200, [id number], L300.3900, L300.4310 #### [facility] [address] [place], [address] eGFR Normal >60 [facility] Comment on above: Result Comment: Canc elled via OM: Order cancelled - Patient discharged Performed By: #### L 501.5200, [id number], L300.3900, L300.4310 #### [facility] [address] [place], [address] GAP Normal 5-15 [facility] Comment on above: Result Comment: Canc elled via OM: Order cancelled - Patient discharged Performed By: #### L 501.5200, [id number], L300.3900, L300.4310 #### [facility] [address] [place], [address] GLU Normal 70-99 [facility] Comment on above: Result Comment: Canc elled via OM: Order cancelled - Patient discharged Performed By: #### L 501.5200, [id number], L300.3900, L300.4310 #### [facility] [address] [place], [address] Potassium Normal 3.3-5.1 [facility] Comment on above: Result Comment: Canc elled via OM: Order cancelled - Patient discharged Performed By: #### L 501.5200, [id number], L300.3900, L300.4310 #### [facility] [address] [place], [address] Basic Metabolic Profile (BMP) Normal 133-145 [facility] Comment on above: Result Comment: Canc elled via OM: Order cancelled - Patient discharged Performed By: #### L 501.5200, L501.3620, L300.3900, L300.4310 #### [facility] [address] [place], [address] CBC W/Diff, Automatedon 08-2 Absolute Neut Normal 2.0-7.7 [facility] Comment on above: Result Comment: Canc elled via OM: Order cancelled - Patient discharged Performed By: #### L 501.5200, [id number], L300.3900, L300.4310 #### [facility] [address] [place], [address] HCT Normal 40-54 [facility] Comment on above: Result Comment: Canc elled via OM: Order cancelled - Patient discharged Performed By: #### L 501.5200, [id number], L300.3900, L300.4310 #### [facility] [address] [place], [address] HGB Normal 13.0-16.5 [facility] Comment on above: Result Comment: Canc elled via OM: Order cancelled - Patient discharged Performed By: #### L 501.5200, [id number], L300.3900, L300.4310 #### [facility] [address] [place], [address] MCH Normal 27.0-32.0 [facility] Comment on above: Result Comment: Canc elled via OM: Order cancelled - Patient discharged Performed By: #### L 501.5200, [id number], L300.3900, L300.4310 #### [facility] [address] [place], [address] MCHC Normal 32-36 [facility] Comment on above: Result Comment: Canc elled via OM: Order cancelled - Patient discharged Performed By: #### L 501.5200, [id number], L300.3900, L300.4310 #### [facility] [address] [place], [address] MCV Normal 80-94 [facility] Comment on above: Result Comment: Canc elled via OM: Order cancelled - Patient discharged Performed By: #### L 501.5200, [id number], L300.3900, L300.4310 #### [facility] [address] [place], [address] NEUT% Normal 47-70 [facility] Comment on above: Result Comment: Canc elled via OM: Order cancelled - Patient discharged Performed By: #### L 501.5200, [id number], L300.3900, L300.4310 #### [facility] [address] [place], [address] PLT Normal 150-450 [facility] Comment on above: Result Comment: Canc elled via OM: Order cancelled - Patient discharged Performed By: #### L 501.5200, L501.3620, L300.3900, L300.4310 #### [facility] [address] [place], [address] RBC Normal 4.6-6.2 [facility] Comment on above: Result Comment: Canc elled via OM: Order cancelled - Patient discharged Performed By: #### L 501.5200, [id number], L300.3900, L300.4310 #### [facility] [address] [place], [address] RDW CV Normal 11.6-14.6 [facility] Comment on above: Result Comment: Canc elled via OM: Order cancelled - Patient discharged Performed By: #### L 501.5200, L501.3620, L300.3900, L300.4310 #### [facility] [address] [place], [address] RDW SD Normal 35.1-43.9 [facility] Comment on above: Result Comment: Canc elled via OM: Order cancelled - Patient discharged Performed By: #### L 501.5200, [id number], L300.3900, L300.4310 #### [facility] [address] [place], [address] WBC Normal 4.4-11.0 [facility] Comment on above: Result Comment: Canc elled via OM: Order cancelled - Patient discharged Performed By: #### L 501.5200, L501.3620, L300.3900, L300.4310 #### [facility] [address] [place], [address] Culture, Blood (WB)on 2024 CUB Blood cultures x2, f rom two different sites No growth in 5 days. Normal [facility] Comment on above: Performed By: #### L 501.5200, L501.3620, L300.3900, L300.4310 #### [facility] [address] [place], [address] Absolute lymphocyte countOrd ered By: Xavier Buck on 06-11-2025 Lymphocytes Auto (Unsp spec) [#/Vol] 0.84 10*3/uL 0.83-4.51 [facility] Absolute neutrophil countOrd ered By: Xavier Buck on 06-11-2025 Neutrophils (Bld) [#/Vol] 10.7 10*3/uL High 2.0-7.7 [facility] Anion gap in Serum or Plasma Ordered By: Xavier Buck on 06-11-2025 Anion gap [Moles/Vol] 12 mmol/L 5-15 [facility] Automated lymphocyte count a s percentage of total leukocytesOrdered By: Xavier Buck on 06-11-2025 Lymphocytes/100 WBC Auto (Unsp spec) 6.5 % Low [facility] BUN/creatinine ratioOrdered By: Xavier Buck on 06-11-2025 Urea nitrogen/Creatinine [Mass ratio] 21.5 mg/mg High 08-11 [facility] Basic Metabolic Profile (BMP )on 06-11-2025 BUN/CRE 21.5 RATIO High 08-11 [facility] Comment on above: Performed By: #### L 501.5200, L501.3620, L300.3900, L300.4310 #### [facility] [address] [place], [address] Calcium [Mass/Vol] 8.8 mg/dL Normal 7.6-11.0 [facility] Comment on above: Performed By: #### L 501.5200, L501.3620, L300.3900, L300.4310 #### [facility] [address] [place], [address] Chloride [Moles/Vol] 104 mmol/L Normal 98-108 [facility] Comment on above: Performed By: #### L 501.5200, L501.3620, L300.3900, L300.4310 #### [facility] [address] [place], [address] CO2 [Moles/Vol] 24.8 mmol/L Normal 21.0-32.0 [facility] Comment on above: Performed By: #### L 501.5200, L501.3620, L300.3900, L300.4310 #### [facility] [address] [place], [address] Creatinine [Mass/Vol] 0.57 mg/dL Low 0.70-1.20 [facility] Comment on above: Performed By: #### L 501.5200, L501.3620, L300.3900, L300.4310 #### [facility] [address] [place], [address] ECRCL 139.60 ml/min Normal 50-250 [facility] Comment on above: Performed By: #### L 501.5200, L501.3620, L300.3900, L300.4310 #### [facility] [address] [place], [address] GAP 12 Normal 5-15 [facility] Comment on above: Performed By: #### L 501.5200, L501.3620, L300.3900, L300.4310 #### [facility] [address] [place], [address] GFR/1.73 sq M.predicted among non-blacks MDRD (S/P/Bld) [Vol rate/Area] 138 mL/min/{1.73_m2} Normal >60 [facility] Comment on above: Result Comment: mL/m in/1.73m2 CKD-EPI Creatinine Equation (2020) Performed By: #### L 501.5200, L501.3620, L300.3900, L300.4310 #### [facility] [address] [place], [address] Glucose [Mass/Vol] 102 mg/dL High 70-99 [facility] Comment on above: Performed By: #### L 501.5200, L501.3620, L300.3900, L300.4310 #### [facility] [address] [place], [address] Potassium [Moles/Vol] 3.8 mmol/L Normal 3.3-5.1 [facility] Comment on above: Performed By: #### L 501.5200, L501.3620, L300.3900, L300.4310 #### [facility] [address] [place], [address] Sodium [Moles/Vol] 142 mmol/L Normal 133-145 [facility] Comment on above: Performed By: #### L 501.5200, L501.3620, L300.3900, L300.4310 #### [facility] [address] [place], [address] Urea nitrogen [Mass/Vol] 12 mg/dL Normal 4-19 [facility] Comment on above: Performed By: #### L 501.5200, L501.3620, L300.3900, L300.4310 #### [facility] [address] [place], [address] Basophil percentageOrdered B y: Xavier Buck on 06-11-2025 Basophils/100 WBC (Bld) 0.6 % 0-1 [facility] Bedside Glucoseon 06-11-2025 FINGERSTICK GLU 135 mg/dL High 74-106 [facility] Comment on above: Result Comment: KAILA GEMENT OF PATIENT CARE PER NURSING PROTOCOL Performed By: #### L 501.5200, L501.3620, L300.3900, L300.4310 #### [facility] [address] [place], [address] FINGERSTICK GLU 220 mg/dL High 74-106 [facility] Comment on above: Result Comment: KAILA GEMENT OF PATIENT CARE PER NURSING PROTOCOL Performed By: #### L 501.5200, L501.3620, L300.3900, L300.4310 #### [facility] [address] [place], [address] CBC W/Diff, Automatedon 05-24 Absolute Lymph 0.84 X10 3/uL Normal 0.83-4.51 [facility] Comment on above: Performed By: #### L 501.5200, L501.3620, L300.3900, L300.4310 #### [facility] [address] [place], [address] Absolute Neut 10.7 X10 3/uL High 2.0-7.7 [facility] Comment on above: Performed By: #### L 501.5200, L501.3620, L300.3900, L300.4310 #### [facility] [address] [place], [address] Basophils/100 WBC (Bld) 0.6 % Normal 0-1 [facility] Comment on above: Performed By: #### L 501.5200, [id number], L300.3900, L300.4310 #### [facility] [address] [place], [address] Eosinophils/100 WBC (Bld) 1.0 % Normal 0-5 [facility] Comment on above: Performed By: #### L 501.5200, L501.3620, L300.3900, L300.4310 #### [facility] [address] [place], [address] Erythrocyte distribution width (RBC) [Ratio] 14.1 % Normal 11.6-14.6 [facility] Comment on above: Performed By: #### L 501.5200, L501.3620, L300.3900, L300.4310 #### [facility] [address] [place], [address] Hematocrit (Bld) [Volume fraction] 35.8 % Low 40-54 [facility] Comment on above: Performed By: #### L 501.5200, L501.3620, L300.3900, L300.4310 #### [facility] [address] [place], [address] Hemoglobin (Bld) [Mass/Vol] 11.9 g/dL Low 13.0-16.5 [facility] Comment on above: Performed By: #### L 501.5200, L501.3620, L300.3900, L300.4310 #### [facility] [address] [place], [address] IG% 3.500 High 0.0-0.9 [facility] Comment on above: Result Comment: IG% - Immature Granulocytes (promyelocytes, myelocytes and metamyelocytes) > 1% indicates that a LEFT SHIFT is Present. Performed By: #### L 501.5200, L501.3620, L300.3900, L300.4310 #### [facility] [address] [place], [address] Lymphocytes/100 WBC (Bld) 6.5 % Low 19-41 [facility] Comment on above: Performed By: #### L 501.5200, L501.3620, L300.3900, L300.4310 #### [facility] [address] [place], [address] MCH (RBC) [Entitic mass] 28.2 pg Normal 27.0-32.0 [facility] Comment on above: Performed By: #### L 501.5200, L501.3620, L300.3900, L300.4310 #### [facility] [address] [place], [address] MCHC (RBC) [Mass/Vol] 33.2 g/dL Normal 32-36 [facility] Comment on above: Performed By: #### L 501.5200, L501.3620, L300.3900, L300.4310 #### [facility] [address] [place], [address] MCV (RBC) [Entitic vol] 84.8 fL Normal 80-94 [facility] Comment on above: Performed By: #### L 501.5200, L501.3620, L300.3900, L300.4310 #### [facility] [address] [place], [address] Monocytes/100 WBC (Bld) 5.4 % Normal 0-10 [facility] Comment on above: Performed By: #### L 501.5200, L501.3620, L300.3900, L300.4310 #### [facility] [address] [place], [address] Neutrophils/100 WBC (Bld) 83.0 % High 47-70 [facility] Comment on above: Performed By: #### L 501.5200, L501.3620, L300.3900, L300.4310 #### [facility] [address] [place], [address] Nucleated RBC (Bld) [#/Vol] 0 10*3/uL Normal 0-5 [facility] Comment on above: Performed By: #### L 501.5200, L501.3620, L300.3900, L300.4310 #### [facility] [address] [place], [address] Platelet mean volume (Bld) [Entitic vol] 9.8 fL Normal 6.2-12.0 [facility] Comment on above: Performed By: #### L 501.5200, L501.3620, L300.3900, L300.4310 #### [facility] [address] [place], [address] Platelets (Bld) [#/Vol] 255 10*3/uL Normal 150-450 [facility] Comment on above: Performed By: #### L 501.5200, L501.3620, L300.3900, L300.4310 #### [facility] [address] [place], [address] RBC (Bld) [#/Vol] 4.22 10*6/uL Low 4.6-6.2 [facility] Comment on above: Performed By: #### L 501.5200, L501.3620, L300.3900, L300.4310 #### [facility] [address] [place], [address] RDW SD 43.5 fl Normal 35.1-43.9 [facility] Comment on above: Performed By: #### L 501.5200, L501.3620, L300.3900, L300.4310 #### [facility] [address] [place], [address] WBC (Bld) [#/Vol] 12.9 10*3/uL High 4.4-11.0 [facility] Comment on above: Performed By: #### L 501.5200, L501.3620, L300.3900, L300.4310 #### [facility] [address] [place], [address] Carbon dioxide, total [Moles /volume] in Central venous bloodOrdered By: Xavier Buck on 06-11-2025 CO2 [Moles/Vol] 24.8 mmol/L 21.0-32.0 [facility] Chloride assayOrdered By: Davi Buck on 06-11-2025 Chloride [Moles/Vol] 104 mmol/L 98-108 [facility] Eosinophil percentageOrdered By: Xavier Buck on 06-11-2025 Eosinophils/100 WBC (Bld) 1.0 % 0-5 [facility] Erythrocyte distribution wid th ratioOrdered By: Xavier Buck on 06-11-2025 Erythrocyte distribution width (RBC) [Ratio] 14.1 % 11.6-14.6 [facility] Erythrocyte distribution wid th standard deviationOrdered By: Xavier Buck on 06-11-2025 Erythrocyte distribution width (RBC) [Ratio] 43.5 fl 35.1-43.9 [facility] Glomerular filtration rate ( GFR) estimation/1.73 sq m using serum, plasma, or whole bOrdered By: Xavier Buck on 06-11-2025 GFR/1.73 sq M.predicted among non-blacks MDRD (S/P/Bld) [Vol rate/Area] 138 mL/min/{1.73_m2} >60 [facility] Comment on above: mL/min/1.73m2 CKD-EP I Creatinine Equation (2020) Glucose measurement at bedsi deOrdered By: Xavier Buck on 06-11-2025 Glucose [Mass/Vol] 135 mg/dL High 74-106 [facility] Comment on above: MANAGEMENT OF PATIEN T CARE PER NURSING PROTOCOL Hematocrit Auto (Bld) [Volum e fraction]Ordered By: Xavier Buck on 06-11-2025 Hematocrit (Bld) [Volume fraction] 35.8 % Low 40-54 [facility] Hemoglobin measurementOrdere d By: Xavier Buck on 06-11-2025 Hemoglobin (Bld) [Mass/Vol] 11.9 g/dL Low 13.0-16.5 [facility] Immature granulocytes/100 WB C Auto (Bld)Ordered By: Xavier Buck on 06-11-2025 Immature granulocytes/100 WBC (Bld) 3.500 % High 0.0-0.9 [facility] Comment on above: IG% - Immature Granu locytes (promyelocytes, myelocytes and metamyelocytes) > 1% indicates that a LEFT SHIFT is Present. MCV (mean corpuscular volume ) determinationOrdered By: Xavier Buck on 06-11-2025 MCV (RBC) [Entitic vol] 84.8 fL 80-94 [facility] Magnesiumon 06-11-2025 Magnesium [Mass/Vol] 2.1 mg/dL Normal 1.5-2.2 [facility] Comment on above: Performed By: #### L 501.5200, L501.3620, L300.3900, L300.4310 #### [facility] [address] [place], [address] Magnesium measurement (mass/ volume)Ordered By: Xavier Buck on 06-11-2025 Magnesium (Unsp spec) [Mass/Vol] 2.1 mg/dL 1.5-2.2 [facility] Mean corpuscular hemoglobin (MCH) determinationOrdered By: Xavier Buck on 06-11-2025 MCH (RBC) [Entitic mass] 28.2 pg 27.0-32.0 [facility] Mean corpuscular hemoglobin concentration (MCHC) determinationOrdered By: Xavier Buck on 06-11-2025 MCHC (RBC) [Mass/Vol] 33.2 g/dL 32-36 [facility] Mean platelet volume determi nationOrdered By: Xavier Buck on 06-11-2025 Platelet mean volume (Bld) [Entitic vol] 9.8 fL 6.2-12.0 [facility] Monocyte percentageOrdered B y: Xavier Buck on 06-11-2025 Monocytes/100 WBC (Bld) 5.4 % 0-10 [facility] Neutrophil percentageOrdered By: Xavier Buck on 06-11-2025 Neutrophils/100 WBC (Bld) 83.0 % High 47-70 [facility] Nucleated red blood cell per centageOrdered By: Xavier Buck on 06-11-2025 Nucleated RBC/100 WBC (Bld) [Ratio] 0 % 0-5 [facility] Phosphoruson 06-11-2025 Phosphate [Mass/Vol] 2.3 mg/dL Low 2.7-4.5 [facility] Comment on above: Performed By: #### L 501.5200, L501.3620, L300.3900, L300.4310 #### [facility] [address] [place], [address] Platelet countOrdered By: Davi Buck on 06-11-2025 Platelets (Bld) [#/Vol] 255 10*3/uL 150-450 [facility] Potassium measurement (mass/ volume)Ordered By: Xavier Buck on 06-11-2025 Potassium (Unsp spec) [Mass/Vol] 3.8 mmol/L 3.3-5.1 [facility] RBC Auto (Bld) [#/Vol]Ordere d By: Xavier Buck on 06-11-2025 RBC (Bld) [#/Vol] 4.22 10*6/uL Low 4.6-6.2 [facility] Serum creatinine measurement (mass/volume)Ordered By: Xavier Buck on 06-11-2025 Creatinine [Mass/Vol] 0.57 mg/dL Low 0.70-1.20 [facility] Serum glucose measurement (m ass/volume)Ordered By: Xavier Buck on 06-11-2025 Glucose [Mass/Vol] 102 mg/dL High 70-99 [facility] Serum or plasma calcium bonnie urement (mass/volume)Ordered By: Xavier Buck on 06-11-2025 Calcium [Mass/Vol] 8.8 mg/dL 7.6-11.0 [facility] Serum or plasma urea nitroge n measurement (mass/volume)Ordered By: Xavier Buck on 06-11-2025 Urea nitrogen [Mass/Vol] 12 mg/dL 4-19 [facility] Sodium levelOrdered By: Travis Buck on 06-11-2025 Sodium [Moles/Vol] 142 mmol/L 133-145 [facility] Urine Cultureon 06-11-2025 U[facility] Pseudomonas aerugino sa [place] Count 80,000-100,000 Proteus vulgaris Proteus vulgaris Pseudomonas aeruginosa: REACTION Amikacin Islt LELE 8 S Ampicillin Islt LELE >=32 Ampicillin+Sulbac Islt LELE 16 I Cefepime Islt LELE <=0.12 S Ciprofloxacin Islt LELE 1 I Gentamicin Islt LELE <=1 S Imipenem Islt LELE >=16 R levoFLOXacin Islt LELE 2 S Meropenem Islt LELE 8 R Nitrofurantoin Islt LELE 256 R Pip+Tazo Islt LELE 8 S Tobramycin Islt LELE <=1 S TMP SMX Islt LELE <=20 S Proteus vulgaris: REACTION Ampicillin Islt LELE >=32 R Ampicillin+Sulbac Islt LELE >=32 Cefepime Islt LELE <=0.12 S Ciprofloxacin Islt LELE <=0.06 S Gentamicin Islt LELE <=1 S levoFLOXacin Islt LELE <=0.12 S Nitrofurantoin Islt LELE >=512 R Pip+Tazo Islt LELE 64 R Tobramycin Islt LELE <=1 S TMP SMX Islt LELE <=20 S Normal [facility] Comment on above: Performed By: #### L 501.9985 #### [facility] [address] [place], [address] White blood cell (WBC) count Ordered By: Xavier Buck on 06-11-2025 WBC (Bld) [#/Vol] 12.9 10*3/uL High 4.4-11.0 [facility] Basic Metabolic Profile (BMP )on 06-10-2025 BUN/CRE 22.3 RATIO High 10-20 [facility] Comment on above: Performed By: #### L 501.5200, L501.3620, L300.3900, L300.4310 #### [facility] [address] [place], [address] Calcium [Mass/Vol] 9.2 mg/dL Normal 7.6-11.0 [facility] Comment on above: Performed By: #### L 501.5200, L501.3620, L300.3900, L300.4310 #### [facility] [address] [place], [address] Chloride [Moles/Vol] 105 mmol/L Normal 98-108 [facility] Comment on above: Performed By: #### L 501.5200, L501.3620, L300.3900, L300.4310 #### [facility] [address] [place], [address] CO2 [Moles/Vol] 23.1 mmol/L Normal 21.0-32.0 [facility] Comment on above: Performed By: #### L 501.5200, L501.3620, L300.3900, L300.4310 #### [facility] [address] [place], [address] Creatinine [Mass/Vol] 0.64 mg/dL Low 0.70-1.20 [facility] Comment on above: Performed By: #### L 501.5200, L501.3620, L300.3900, L300.4310 #### [facility] [address] [place], [address] ECRCL 125.31 ml/min Normal 50-250 [facility] Comment on above: Performed By: #### L 501.5200, L501.3620, L300.3900, L300.4310 #### [facility] [address] [place], [address] GAP 14 Normal 5-15 [facility] Comment on above: Performed By: #### L 501.5200, L501.3620, L300.3900, L300.4310 #### [facility] [address] [place], [address] GFR/1.73 sq M.predicted among non-blacks MDRD (S/P/Bld) [Vol rate/Area] 133 mL/min/{1.73_m2} Normal >60 [facility] Comment on above: Result Comment: mL/m in/1.73m2 CKD-EPI Creatinine Equation (2020) Performed By: #### L 501.5200, L501.3620, L300.3900, L300.4310 #### [facility] [address] [place], [address] Glucose [Mass/Vol] 85 mg/dL Normal 70-99 [facility] Comment on above: Performed By: #### L 501.5200, L501.3620, L300.3900, L300.4310 #### [facility] [address] [place], [address] Potassium [Moles/Vol] 3.7 mmol/L Normal 3.3-5.1 [facility] Comment on above: Performed By: #### L 501.5200, L501.3620, L300.3900, L300.4310 #### [facility] [address] [place], [address] Sodium [Moles/Vol] 143 mmol/L Normal 133-145 [facility] Comment on above: Performed By: #### L 501.5200, L501.3620, L300.3900, L300.4310 #### [facility] [address] [place], [address] Urea nitrogen [Mass/Vol] 14 mg/dL Normal -19 [facility] Comment on above: Performed By: #### L 501.5200, L501.3620, L300.3900, L300.4310 #### [facility] [address] [place], [address] Bedside Glucoseon 06-10-2025 FINGERSTICK GLU 167 mg/dL High 74-106 [facility] Comment on above: Result Comment: KAILA GEMENT OF PATIENT CARE PER NURSING PROTOCOL Performed By: #### L 501.5200, L501.3620, L300.3900, L300.4310 #### [facility] [address] [place], [address] FINGERSTICK GLU 85 mg/dL Normal 74-106 [facility] Comment on above: Result Comment: KAILA GEMENT OF PATIENT CARE PER NURSING PROTOCOL Performed By: #### L 501.5200, L501.3620, L300.3900, L300.4310 #### [facility] [address] [place], [address] FINGERSTICK GLU 71 mg/dL Low 74-106 [facility] Comment on above: Result Comment: KAILA GEMENT OF PATIENT CARE PER NURSING PROTOCOL Performed By: #### L 501.9985 #### [facility] [address] [place], [address] FINGERSTICK GLU 79 mg/dL Normal 74-106 [facility] Comment on above: Result Comment: KAILA GEMENT OF PATIENT CARE PER NURSING PROTOCOL Performed By: #### L 501.5200, L501.3620, L300.3900, L300.4310 #### [facility] [address] [place], [address] Blood manual differential co mment interpretation (narrative result)Ordered By: Gregorio Qiu on 06-10-2025 Manual differential comment Tirso (Bld) [Interp] SCANNED [facility] Comment on above: SLIGHT MONOCYTOSIS N OTED CBC W/Diff, Automatedon 05-23 SMEAR COMMENT SCANNED Normal [facility] Comment on above: Result Comment: SLIG HT MONOCYTOSIS NOTED Performed By: #### L 501.5200, L501.3620, L300.3900, L300.4310 #### [facility] [address] [facility] [place], [address] Abdomen/Pelvis without Conto n 06-09-2025 Abdomen/Pelvis without Cont [facility] [address] [place] [address] Abdomen/Pelvis without Cont MR#: [id number] Acct: [id number] Name: YELITZAMARCOS HAYES Karan Rep #: [id number] : 1995 M 29 From: Shaggy Whitehead MD PCP: Dr. Nikita Gramajo, DO Status: ADM IN Study: Abdomen/Pelvis without Cont Date of Exam: 05/23 06/16 Exam# [id number] Ordering Dr: Gregorio Qiu MD PROCEDURE: ABDOMEN/PELVIS WITHOUT CONT 06/09/2025 REASON FOR EXAM: COMPLICATED UTI, STONE TECHNIQUE: ABDOMEN/PELVIS WITHOUT CONT Noncontrast technique limits evaluation of the abdominal and pelvic viscera. Coronal and Sagittal reconstruction series were provided. One or more dose reduction techniques were used (e.g., Automated exposure control, adjustment of the mA and/or kV according to patient size, use of iterative reconstruction technique). RADIATION DOSE SUMMARY: CTDlvol: 14 mGy DLP: 610 mGycm COMPARISON: None FINDINGS: Lung bases: Subsegmental atelectasis of the lung bases, [id number] largely related to patient's rotatory curvature of the spine. Liver: Grossly normal. Gallbladder: Cholecystectomy Spleen: Normal Pancreas: Normal Adrenals: Normal Kidneys: Left hydronephrosis. Punctate calculus in the renal pelvis just proximal to a larger obstructing calculus measuring 10.7 x 8.6 x 8.6 mm. Right mid to upper pole staghorn calculus is 21 x 13 x 12 mm. Another at the mid to lower pole is 18 x 13 x 20 mm. Bladder: A percutaneous cystostomy tube is in place. The bladder is empty except for two large calculi; one measures 36 x 24 x 21 mm, and the other is 34 by 15 x 26 mm. Reproductive Organs: Normal male. Bowel: The small caliber percutaneous gastrostomy tube near the antrum is in place. The stomach is otherwise normal. Small bowel is normal caliber. A colostomy is present in the right lower quadrant. High density is seen in the rectum. Appendix: Appendectomy Lymph nodes: None appear enlarged. Vasculature: Normal caliber Peritoneum / Retroperitoneum: BRIM SHAPER shunt tubing is seen along the left chest coiled in the right upper quadrant. Bones: Curvature spine with rotatory component directed to the right. Posterior fusion thoracolumbar spine with pedicle screws and rods on the right. 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 Mild thickening of the soft tissues overlying the buttock. No definite ulcer. CT/Abdomen/Pelvis without Cont IMPRESSION: 1. 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 Skin thickening posterior low back and overlying the right buttock region. No definite ulcer. Early stage decubitus ulcer is potentially present. Recommend direct inspection. 2. Compressive atelectasis of the lung bases related to curvature. 3. BRIM SHAPER shunt, cholecystectomy, appendectomy, percutaneous gastrostomy, right lower quadrant colostomy, percutaneous cystostomy. 4. Staghorn calculi right kidney. No collecting system dilation. Obstructing UPJ calculus on the left. The calculus is large. Urology consultation suggested. 5. Bladder stones. Reading Location: [id number] CC: Dr. Nikita Gramajo DO; Dr. Gregorio Qiu MD Quality Tester: Signed Normal [facility] Basic Metabolic Profile (BMP )on 06-09-2025 BUN/CRE 18.1 RATIO Normal 10-20 [facility] Comment on above: Performed By: #### L 501.9985 #### [facility] [address] [place], [address] Calcium [Mass/Vol] 8.7 mg/dL Normal 7.6-11.0 [facility] Comment on above: Performed By: #### L 501.9985 #### [facility] [address] [place], [address] Chloride [Moles/Vol] 104 mmol/L Normal 98-108 [facility] Comment on above: Performed By: #### L 501.9985 #### [facility] [address] [place], [address] CO2 [Moles/Vol] 23.0 mmol/L Normal 21.0-32.0 [facility] Comment on above: Performed By: #### L [id number] #### [facility] [address] [place], [address] Creatinine [Mass/Vol] 0.64 mg/dL Low 0.70-1.20 [facility] Comment on above: Performed By: #### L 501.9985 #### [facility] [address] [place], [address] ECRCL 128.25 ml/min Normal 50-250 [facility] Comment on above: Performed By: #### L 501.9985 #### [facility] [address] [place], [address] GAP 11 Normal 5-15 [facility] Comment on above: Performed By: #### L 501.9985 #### [facility] [address] [place], [address] GFR/1.73 sq M.predicted among non-blacks MDRD (S/P/Bld) [Vol rate/Area] 133 mL/min/{1.73_m2} Normal >60 [facility] Comment on above: Result Comment: mL/m in/1.73m2 CKD-EPI Creatinine Equation (2020) Performed By: #### L 501.9985 #### [facility] [address] [place], [address] Glucose [Mass/Vol] 194 mg/dL High 70-99 [facility] Comment on above: Performed By: #### L 501.9985 #### [facility] [address] [place], [address] Potassium [Moles/Vol] 3.6 mmol/L Normal 3.3-5.1 [facility] Comment on above: Performed By: #### L [id number] #### [facility] [address] [place], [address] Sodium [Moles/Vol] 138 mmol/L Normal 133-145 [facility] Comment on above: Performed By: #### L [id number] #### [facility] [address] [place], [address] Urea nitrogen [Mass/Vol] 12 mg/dL Normal 4-19 [facility] Comment on above: Performed By: #### L 501.9985 #### [facility] [address] [place], [address] Bedside Glucoseon 06-09-2025 FINGERSTICK GLU 91 mg/dL Normal 74-106 [facility] Comment on above: Result Comment: KAILA GEMENT OF PATIENT CARE PER NURSING PROTOCOL Performed By: #### L 501.5200, L501.3620, L300.3900, L300.4310 #### [facility] [address] [place], [address] FINGERSTICK GLU 97 mg/dL Normal 74-106 [facility] Comment on above: Result Comment: KAILA GEMENT OF PATIENT CARE PER NURSING PROTOCOL Performed By: #### L 501.5200, L501.3620, L300.3900, L300.4310 #### [facility] [address] [place], [address] FINGERSTICK GLU 119 mg/dL High 74-106 [facility] Comment on above: Result Comment: KAILA GEMENT OF PATIENT CARE PER NURSING PROTOCOL Performed By: #### L 501.080 #### [facility] [address] [place], [address] FINGERSTICK GLU 192 mg/dL High 74-106 [facility] Comment on above: Result Comment: KAILA GEMENT OF PATIENT CARE PER NURSING PROTOCOL Performed By: #### L 501.9985 #### [facility] [address] [place], [address] CBC W/Diff, Automatedon 05-23 Absolute Lymph 1.44 X10 3/uL Normal 0.83-4.51 [facility] Comment on above: Performed By: #### L [id number] #### [facility] [address] [place], [address] Absolute Neut 7.4 X10 3/uL Normal 2.0-7.7 [facility] Comment on above: Performed By: #### L [id number] #### [facility] [address] [place], [address] Basophils/100 WBC (Bld) 0.4 % Normal 0-1 [facility] Comment on above: Performed By: #### L [id number] #### [facility] [address] [place], [address] Eosinophils/100 WBC (Bld) 2.0 % Normal 0-5 [facility] Comment on above: Performed By: #### L [id number] #### [facility] [address] [place], [address] Erythrocyte distribution width (RBC) [Ratio] 13.5 % Normal 11.6-14.6 [facility] Comment on above: Performed By: #### L [id number] #### [facility] [address] [place], [address] Hematocrit (Bld) [Volume fraction] 36.2 % Low 40-54 [facility] Comment on above: Performed By: #### L [id number] #### [facility] [address] [place], [address] Hemoglobin (Bld) [Mass/Vol] 11.8 g/dL Low 13.0-16.5 [facility] Comment on above: Performed By: #### L 501.9985 #### [facility] [address] [place], [address] IG% 0.600 Normal 0.0-0.9 [facility] Comment on above: Result Comment: IG% - Immature Granulocytes (promyelocytes, myelocytes and metamyelocytes) > 1% indicates that a LEFT SHIFT is Present. Performed By: #### L 501.9985 #### [facility] [address] [place], [address] Lymphocytes/100 WBC (Bld) 13.8 % Low 19-41 [facility] Comment on above: Performed By: #### L 501.9985 #### [facility] [address] [place], [address] MCH (RBC) [Entitic mass] 28.0 pg Normal 27.0-32.0 [facility] Comment on above: Performed By: #### L 501.9985 #### [facility] [address] [place], [address] MCHC (RBC) [Mass/Vol] 32.6 g/dL Normal 32-36 [facility] Comment on above: Performed By: #### L [id number] #### [facility] [address] [place], [address] MCV (RBC) [Entitic vol] 86.0 fL Normal 80-94 [facility] Comment on above: Performed By: #### L [id number] #### [facility] [address] [place], [address] Monocytes/100 WBC (Bld) 12.5 % High 0-10 [facility] Comment on above: Performed By: #### L [id number] #### [facility] [address] [place], [address] Neutrophils/100 WBC (Bld) 70.7 % High 47-70 [facility] Comment on above: Performed By: #### L 501.9985 #### [facility] [address] [place], [address] Nucleated RBC (Bld) [#/Vol] 0 10*3/uL Normal 0-5 [facility] Comment on above: Performed By: #### L [id number] #### [facility] [address] [place], [address] Platelet mean volume (Bld) [Entitic vol] 10.0 fL Normal 6.2-12.0 [facility] Comment on above: Performed By: #### L 501.9985 #### [facility] [address] [place], [address] Platelets (Bld) [#/Vol] 221 10*3/uL Normal 150-450 [facility] Comment on above: Performed By: #### L [id number] #### [facility] [address] [place], [address] RBC (Bld) [#/Vol] 4.21 10*6/uL Low 4.6-6.2 [facility] Comment on above: Performed By: #### L [id number] #### [facility] [address] [place], [address] RDW SD 42.2 fl Normal 35.1-43.9 [facility] Comment on above: Performed By: #### L [id number] #### [facility] [address] [place], [address] WBC (Bld) [#/Vol] 10.5 10*3/uL Normal 4.4-11.0 [facility] Comment on above: Performed By: #### L 501.9985 #### [facility] [address] [place], [place], [address] Consultation - Infectious Dx on 06-09-2025 Consultation - Infectious Dx [facility] Medical Records Department [address] [place] [address] Consultation - Infectious Dx 06/09/25 1410 MR#: [id number] Acct: [id number] Name: MARCOS AGUIRRE Rep #: [id number] : 1995 29 From: Yaya Valencia MD PCP: Dr. Nikita Gramajo, DO Status:ADM IN Location: [place] [address] Assessment Plan Assessment/Plan (1) Complicated urinary tract infection: PLAN: Comp uti with staghorn in place. Cont meropenem. Urology consulted. Will follow, thank you HPI Consult Data Date of Consult: 06/09/25 HPI Narrative Reason for Consultation: uti HPI Narrative: MARCOS AGUIRRE, is a 29 M with h/o spina bifida, BRIM SHAPER shunt, presented with acute onset fever, fatigue, abd distension. No pain in abd due to lack of sensation below his chest. Mother saw he had passed stones recently in his urine. Came to ED, admitted on meropenem, feeling better today. Full ROS performed and neg except as noted above. 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 Chronic respiratory failure with hypoxia and hypercapnia Neuromuscular respiratory weakness Chronic respiratory failure requiring treatment with nocturnal BPAP by mask Home Medications ???Medication ???Instructions ???Recorded ???Last Taken ???Type nut.tx impaired digestive See Rx Instructions feeding tube 0 12/01/22 Unknown History fxn-fiber 0.07 gram-1.5 kcal/mL .HS feed oral liquid (Vital Peptide 1.5 Shine) cholecalciferol (vitamin D3) 10 10 mcg PO QDAY 02/27/25 06/06/25 H istory mcg (400 unit) chewable tablet diltiazem HCl 240 mg capsule,24 240 mg PO QDAY 02/27/25 06/06/25 H istory hr,extended release acetaminophen 325 mg capsule 325 mg PO Q6H PRN fever or pain 06/07/25 History diphenhydramine HCl 25 mg tablet 25 mg PO QHS PRN allergies 5 Unknown History (Allergy (diphenhydramine)) Allergy/AdvReac Type Severity Reaction Status Date / Time bacitracin Allergy Mild unknown Verified 06/07/25 10:38 latex Allergy Unknown Verified 06/07/25 10:38 levofloxacin (Levofloxacin) Allergy Rash Verified 06/07/25 10:38 sulfamethoxazole (From Allergy Rash Verified 06/07/25 10:38 Bactrim) trimethoprim (From Bactrim) Allergy Rash Verified 06/07/25 10:38 Social History Smoking Status: Never smoker Physical Exam Const alert and no apparent distress General Appearance: cooperative HEENT head/scalp atraumatic Eyes PERRL and EOMs intact bilaterally Neck supple and No nodes Resp normal air movement and clear to auscultation bilaterally Cardio regular rate and regular rhythm GI soft to palpation, non-tender and non-distended Extremity Extremity Narrative: R AKA General Extremity: edema Skin no rashes or lesions noted Neuro CN's II-XII intact bilaterally Lab / Micro Data Attestation: I reviewed the patient's lab results. 06/09/25 04:22 06/09/25 04:22 Labs: Laboratory Results - last 24 hr 06/08/25 16:52: POC Glucose 104 06/08/25 21:26: POC Glucose 170 H 06/09/25 04:22: WBC 10.5, RBC 4.21 L, Hgb 11.8 L, Hct 36.2 L, MCV 86.0, MCH 28.0, MCHC 32.6, RDW Std Deviation 42.2, RDW Coeff of Leroy 13.5, Plt Count 221, MPV 10.0, Immature Gran % (Auto) 0.600, Neut % (Auto) 70.7 H, Lymph % (Auto) 13.8 L, Hamblen % (Auto) 12.5 H, Eos % (Auto) 2.0, Baso % (Auto) 0.4, Absolute Neuts (auto) 7.4, Absolute Lymphs (auto) 1.44, Nucleated RBC % 0, Sodium 138, Potassium 3.6, Chloride 104, Carbon Dioxide 23.0, Anion Gap 11, BUN 12, Creatinine 0.64 L, Estim Creat Clear Calc 128.25, Est GFR (MDRD) Non-Af 133, BUN/Creatinine Ratio 18.1, Glucose 194 H, Hemoglobin A1c 5.4, Calcium 8.7 06/09/25 06:00: POC Glucose 192 H 06/09/25 11:36: POC Glucose 119 H Micro: Microbiology 06/07/25 11:39 Blood Culture (Wb) - Right Hand Blood Culture - Preliminary No growth in 48 hours. 06/07/25 10:30 Blood Culture (Wb) - Anticubital Right Blood Culture - Preliminary No growth in 48 hours. 06/07/25 10:50 Urine Catheter - Catheter Urine Culture - Preliminary Proteus vulgaris Imaging Radiology Impression Abdomen/Pelvis CT 06/09/25 10:25 IMPRESSION: 1. 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 Skin thickening posterior low back and overlying the right buttock region. No definite ulcer. Early stage decubitus ulcer is potentially present. Recommend direct inspection. 2. Compressive atelectasis of the lung bases related to curvature. 3. BRIM SHAPER shunt, cholecystectomy, appendectomy, percutaneous gastrostomy, right lower quadrant colostomy, percutaneous cystostomy. 4. Staghorn calculi right kidney. No collecting system dilation. Obstructing UPJ calculus on the left. The calculus is large. Urology consultation mae (more content not included)... Normal [facility] Hemoglobin A1con 06-09-2025 HbA1c (Bld) [Mass fraction] 5.4 % Normal <=5.6 [facility] Comment on above: Result Comment: Norm al < 5.7 % Prediabetic 5.7 - 6.4 % Diabetic >or= 6.5 % Please note range changes. Performed By: #### L 501.9985 #### [facility] [address] [place], [address] Hemoglobin A1c percentageOrd ered By: Gregorio Qiu on 06-09-2025 HbA1c (Bld) [Mass fraction] 5.4 % <5.7 [facility] Comment on above: Normal < 5.7 % Predi abetic 5.7 - 6.4 % Diabetic >or= 6.5 % Please note range changes. Basic Metabolic Profile (BMP )on 06-08-2025 BUN/CRE 15.5 RATIO Normal 10-20 [facility] Comment on above: Performed By: #### L 501.5200, L501.3620, L300.3900, L300.4310 #### [facility] [address] [place], [address] Calcium [Mass/Vol] 8.8 mg/dL Normal 7.6-11.0 [facility] Comment on above: Performed By: #### L 501.5200, L501.3620, L300.3900, L300.4310 #### [facility] [address] [place], [address] Chloride [Moles/Vol] 102 mmol/L Normal 98-108 [facility] Comment on above: Performed By: #### L 501.5200, L501.3620, L300.3900, L300.4310 #### [facility] [address] [place], [address] CO2 [Moles/Vol] 21.6 mmol/L Normal 21.0-32.0 [facility] Comment on above: Performed By: #### L 501.5200, L501.3620, L300.3900, L300.4310 #### [facility] [address] [place], [address] Creatinine [Mass/Vol] 0.61 mg/dL Low 0.70-1.20 [facility] Comment on above: Performed By: #### L 501.5200, L501.3620, L300.3900, L300.4310 #### [facility] [address] [place], [address] ECRCL 134.56 ml/min Normal 50-250 [facility] Comment on above: Performed By: #### L 501.5200, L501.3620, L300.3900, L300.4310 #### [facility] [address] [place], [address] GAP 11 Normal 5-15 [facility] Comment on above: Performed By: #### L 501.5200, L501.3620, L300.3900, L300.4310 #### [facility] [address] [place], [address] GFR/1.73 sq M.predicted among non-blacks MDRD (S/P/Bld) [Vol rate/Area] 135 mL/min/{1.73_m2} Normal >60 [facility] Comment on above: Result Comment: mL/m in/1.73m2 CKD-EPI Creatinine Equation (2020) Performed By: #### L 501.5200, L501.3620, L300.3900, L300.4310 #### [facility] [address] [place], [address] Glucose [Mass/Vol] 216 mg/dL High 70-99 [facility] Comment on above: Performed By: #### L 501.5200, L501.3620, L300.3900, L300.4310 #### [facility] [address] [place], [address] Potassium [Moles/Vol] 3.5 mmol/L Normal 3.3-5.1 [facility] Comment on above: Performed By: #### L 501.5200, L501.3620, L300.3900, L300.4310 #### [facility] [address] [place], [address] Sodium [Moles/Vol] 134 mmol/L Normal 133-145 [facility] Comment on above: Performed By: #### L 501.5200, L501.3620, L300.3900, L300.4310 #### [facility] [address] [place], [address] Urea nitrogen [Mass/Vol] 9 mg/dL Normal 4-19 [facility] Comment on above: Performed By: #### L 501.5200, L501.3620, L300.3900, L300.4310 #### [facility] [address] [place], [address] Bedside Glucoseon 06-08-2024 FINGERSTICK GLU 170 mg/dL High 74-106 [facility] Comment on above: Result Comment: KAILA GEMENT OF PATIENT CARE PER NURSING PROTOCOL Performed By: #### L 501.9985 #### [facility] [address] [place], [address] FINGERSTICK GLU 104 mg/dL Normal 74-106 [facility] Comment on above: Result Comment: KAILA GEMENT OF PATIENT CARE PER NURSING PROTOCOL Performed By: #### L 501.080 #### [facility] [address] [place], [address] CBC W/Diff, Automatedon 08- Absolute Lymph 0.81 X10 3/uL Low 0.83-4.51 [facility] Comment on above: Performed By: #### L 501.5200, L501.3620, L300.3900, L300.4310 #### [facility] [address] [place], [address] Absolute Neut 10.9 X10 3/uL High 2.0-7.7 [facility] Comment on above: Performed By: #### L 501.5200, L501.3620, L300.3900, L300.4310 #### [facility] [address] [place], [address] Basophils/100 WBC (Bld) 0.2 % Normal 0-1 [facility] Comment on above: Performed By: #### L 501.5200, L501.3620, L300.3900, L300.4310 #### [facility] [address] [place], [address] Eosinophils/100 WBC (Bld) 0.2 % Normal 0-5 [facility] Comment on above: Performed By: #### L 501.5200, L501.3620, L300.3900, L300.4310 #### [facility] [address] [place], [address] Erythrocyte distribution width (RBC) [Ratio] 13.1 % Normal 11.6-14.6 [facility] Comment on above: Performed By: #### L 501.5200, L501.3620, L300.3900, L300.4310 #### [facility] [address] [place], [address] Hematocrit (Bld) [Volume fraction] 36.6 % Low 40-54 [facility] Comment on above: Performed By: #### L 501.5200, L501.3620, L300.3900, L300.4310 #### [facility] [address] [place], [address] Hemoglobin (Bld) [Mass/Vol] 12.1 g/dL Low 13.0-16.5 [facility] Comment on above: Performed By: #### L 501.5200, L501.3620, L300.3900, L300.4310 #### [facility] [facility] [address] [place], [address] IG% 0.600 Normal 0.0-0.9 [facility] Comment on above: Result Comment: IG% - Immature Granulocytes (promyelocytes, myelocytes and metamyelocytes) > 1% indicates that a LEFT SHIFT is Present. Performed By: #### L 501.5200, L501.3620, L300.3900, L300.4310 #### [facility] [address] [place], [address] Lymphocytes/100 WBC (Bld) 6.3 % Low 19-41 [facility] Comment on above: Performed By: #### L 501.5200, L501.3620, L300.3900, L300.4310 #### [facility] [address] [place], [address] MCH (RBC) [Entitic mass] 28.0 pg Normal 27.0-32.0 [facility] Comment on above: Performed By: #### L 501.5200, L501.3620, L300.3900, L300.4310 #### [facility] [address] [place], [address] MCHC (RBC) [Mass/Vol] 33.1 g/dL Normal 32-36 [facility] Comment on above: Performed By: #### L 501.5200, L501.3620, L300.3900, L300.4310 #### [facility] [address] [place], [address] MCV (RBC) [Entitic vol] 84.7 fL Normal 80-94 [facility] Comment on above: Performed By: #### L 501.5200, L501.3620, L300.3900, L300.4310 #### [facility] [address] [place], [address] Monocytes/100 WBC (Bld) 8.5 % Normal 0-10 [facility] Comment on above: Performed By: #### L 501.5200, L501.3620, L300.3900, L300.4310 #### [facility] [address] [place], [address] Neutrophils/100 WBC (Bld) 84.2 % High 47-70 [facility] Comment on above: Performed By: #### L 501.5200, L501.3620, L300.3900, L300.4310 #### [facility] [address] [place], [address] Nucleated RBC (Bld) [#/Vol] 0 10*3/uL Normal 0-5 [facility] Comment on above: Performed By: #### L 501.5200, L501.3620, L300.3900, L300.4310 #### [facility] [address] [place], [address] Platelet mean volume (Bld) [Entitic vol] 9.6 fL Normal 6.2-12.0 [facility] Comment on above: Performed By: #### L 501.5200, L501.3620, L300.3900, L300.4310 #### [facility] [address] [place], [address] Platelets (Bld) [#/Vol] 209 10*3/uL Normal 150-450 [facility] Comment on above: Performed By: #### L 501.5200, L501.3620, L300.3900, L300.4310 #### [facility] [address] [place], [address] RBC (Bld) [#/Vol] 4.32 10*6/uL Low 4.6-6.2 [facility] Comment on above: Performed By: #### L 501.5200, L501.3620, L300.3900, L300.4310 #### [facility] [address] [place], [address] RDW SD 41.0 fl Normal 35.1-43.9 [facility] Comment on above: Performed By: #### L 501.5200, L501.3620, L300.3900, L300.4310 #### [facility] [address] [place], [address] WBC (Bld) [#/Vol] 12.9 10*3/uL High 4.4-11.0 [facility] Comment on above: Performed By: #### L 501.5200, L501.3620, L300.3900, L300.4310 #### [facility] [address] [place], [address] Absolute lymphocyte countOrd ered By: Joseph Rios on 06-07-2025 Lymphocytes Auto (Unsp spec) [#/Vol] 0.83 10*3/uL 0.83-4.51 [facility] Absolute neutrophil countOrd ered By: Joseph Rios on 06-07-2025 Neutrophils (Bld) [#/Vol] 16.7 10*3/uL High 2.0-7.7 [facility] Activated partial thrombopla stin time (aPTT) in platelet poor plasma by coagulation aOrdered By: Gregorio Qiu on 06-07-2025 aPTT Coag (PPP) [Time] 37.7 s High 24.1-36.2 [facility] Anion gap in Serum or Plasma Ordered By: Joseph Rios on 06-07-2025 Anion gap [Moles/Vol] 14 mmol/L 5-15 [facility] Automated lymphocyte count a s percentage of total leukocytesOrdered By: Joseph Rios on 06-07-2025 Lymphocytes/100 WBC Auto (Unsp spec) 4.3 % Low 19-41 [facility] BUN/creatinine ratioOrdered By: Joseph Rios on 06-07-2025 Urea nitrogen/Creatinine [Mass ratio] 15.7 mg/mg 10-20 [facility] Basophil percentageOrdered B y: Joseph Rios on 06-07-2025 Basophils/100 WBC (Bld) 0.2 % 0-1 [facility] Bilirubin Test strip Ql (U)O rdered By: Joseph Rios on 06-07-2025 Bilirubin Ql (U) Negative Negative [facility] Bilirubin, totalOrdered By: Joseph Rios on 06-07-2025 Bilirubin [Mass/Vol] 0.78 mg/dL 0.00-1.30 [facility] Blood cultureOrdered By: Joseph Rios on 06-07-2025 Bacteria identified Cx Nom (Bld) Escherichia coli Abnormal [facility] Blood manual differential co mment interpretation (narrative result)Ordered By: Joseph Rios on 06-07-2025 Manual differential comment Tirso (Bld) [Interp] SCANNED [facility] CBC W/Diff, Automatedon 05-23 SMEAR COMMENT SCANNED Normal [facility] Comment on above: Performed By: #### L 501.5200, L501.3620, L300.3900, L300.4310 #### [facility] [address] [place], [address] CPK Total, Creatine Kinaseon 06-07-2025 CPK TOTAL 96 U/L Normal 24-195 [facility] Comment on above: Performed By: #### L 501.5200, L501.3620, L300.3900, L300.4310 #### [facility] [address] [place], [address] Carbon dioxide, total [Moles /volume] in Central venous bloodOrdered By: Joseph Rios on 06-07-2025 CO2 [Moles/Vol] 23.7 mmol/L 21.0-32.0 [facility] Chloride assayOrdered By: Ug o Rios on 06-07-2025 Chloride [Moles/Vol] 95 mmol/L Low 98-108 [facility] Comprehensive Metabolic Prof ilon 06-07-2025 Bilirubin [Mass/Vol] 0.78 mg/dL Normal 0.00-1.30 [facility] Comment on above: Performed By: #### L 501.5200, L501.3620, L300.3900, L300.4310 #### [facility] [address] [place], [address] Emergency Department Summary on 06-07-2025 Emergency Department Summary [facility] Medical Records Department [address] [place] [address] Emergency Department Summary 06/07/25 MR#: [id number] Acct: [id number] Name: MARCOS AGUIRRE Rep #: [id number] : 1995 29 From: Joseph Rios MD PCP: Dr. Nikita Gramajo, DO Status:REG ER Location: ED HPI History of Present Illness Chief Complaint: Complaint Detail of Chief Complaint: Temperature of 104.4 at home. Informant: patient and parent Onset/Context/Timing Onset: Today Context: Sudden Onset Timing: Intermittent Quality: Documented temperature greater than 104. Shaking chills and abdominal dist Location: Generalized and abdomen Current Severity: Gone Maximum Severity: Moderate Worsened by: Mom presumed UTI Relieved by: Antipyretic Associated Symptoms Associated Symptoms: Headache Narrative Narrative: Patient is a 29-year-old male. Patient was seen by Alexa Wallace for pulmonary appointment on June 05. Note was reviewed. Assessment was chronic respiratory failure with hypoxia and hypercapnia. Plan was noninvasive ventilatory support for sleep and rescue. Spina bifida with presence of hydrocephalus., Thoracic region, hypertension and chronic fatigue. Recent Illness/Hospitalization : No PFSH PFSH Medical History Colostomy hernia On mechanically assisted ventilation Chronic respiratory failure with hypoxia and hypercapnia Neuromuscular respiratory weakness Chronic respiratory failure requiring treatment with nocturnal BPAP by mask Home Medications ???Medication ???Instructions ???Recorded ???Last Taken ???Type nut.tx impaired digestive ml PO 12/01/22 Unknown History fxn-fiber 0.07 gram-1.5 kcal/mL oral liquid (Vital Peptide 1.5 Shine) cholecalciferol (vitamin D3) 10 10 mcg PO QDAY 02/27/25 06/06/25 H istory mcg (400 unit) chewable tablet diltiazem HCl 240 mg capsule,24 240 mg PO QDAY 02/27/25 06/06/25 H istory hr,extended release acetaminophen 325 mg capsule 325 mg PO Q6H PRN fever or pain 06/07/25 History Allergy/AdvReac Type Severity Reaction Status Date / Time bacitracin Allergy Mild unknown Verified 06/07/25 10:38 latex Allergy Unknown Verified 06/07/25 10:38 levofloxacin (Levofloxacin) Allergy Rash Verified 06/07/25 10:38 sulfamethoxazole (From Allergy Rash Verified 06/07/25 10:38 Bactrim) trimethoprim (From Bactrim) Allergy Rash Verified 06/07/25 10:38 Social History Smoking Status: Never smoker ROS ROS ED Constitutional Constitutional ED: Reports chills, fever(s) and sweats; Denies subjective or weight loss Eyes Eyes: Denies blurry vision, change in vision or diplopia ENT ENT ED: Denies ear pain, rhinorrhea or sore throat Cardiovascular Cardiovascular: Denies chest pain or palpitations Respiratory/Chest Respiratory/Chest: Denies cough, dyspnea or dyspnea on exertion Gastrointestinal Gastrointestinal: Reports other Details: Patient is making stool. There is stool in his colostomy and he is passing gas. Do not suspect his distention is due to an obstruction. ; Denies abdominal pain, diarrhea, nausea or vomiting Musculoskeletal Musculoskeletal: Reports other Details: Patient has no sensation from the waist down. ; Denies arthralgias, back pain or myalgias Integumentary Reports other Details: Mom states there is a small decubitus. It does not appear infected. ; Denies rash Neurologic Neurologic: Reports headache(s); Denies paresthesias Hematologic/Lymphatic Hematologic/Lymphatic: Reports systems reviewed and no addt'l complaints, except as documented EXAM Physical Exam Const Vital Signs: 06/07/25 09:55 Temperature 99.1 F Temperature Source Oral Pulse Rate 131 H Respiratory Rate 18 Blood Pressure 126/75 H Blood Pressure Mean 92 Pulse Ox 95 Oxygen Delivery Method Room Air Positive well nourished and well developed General Appearance ED: well developed and NAD; Negative for cyanotic, diaphoretic or pallor HEENT Reports moist mucous membranes HEENT Narrative: Head is atraumatic no cephalic. Ears normal. Nares patent. Eyes PERRL and EOMs intact bilaterally General Eye ED: Negative for pale conjunctiva or scleral icterus Neck no lymphadenopathy, supple and no JVD Chest Wall inspection of chest normal and palpation of chest normal Resp normal respiratory effort and clear to auscultation bilaterally Cardio regular rhythm, S1 normal heart sound, S2 normal heart sound and no murmurs Rate: tachycardic GI GI Narrative: Abdomen is distended slightly tympanitic. He has no sensation. There are multiple well-healed scars. He has a colostomy noted right lower quadrant. Extremity Extremity Narrative: AKA right lower extremity. Atrophy of the (more content not included)... Normal [facility] Eosinophil percentageOrdered By: Josephamilcar Rios on 06-07-2025 Eosinophils/100 WBC (Bld) 0.0 % 0-5 [facility] Erythrocyte distribution wid th ratioOrdered By: [facility] on 06-07-2025 Erythrocyte distribution width (RBC) [Ratio] 13.1 % 11.6-14.6 [facility] Erythrocyte distribution wid th standard deviationOrdered By: [facility] on 06-07-2025 Erythrocyte distribution width (RBC) [Ratio] 40.2 fl 35.1-43.9 [facility] Glomerular filtration rate ( GFR) estimation/1.73 sq m using serum, plasma, or whole bOrdered By: Joseph Rios on 06-07-2025 GFR/1.73 sq M.predicted among non-blacks MDRD (S/P/Bld) [Vol rate/Area] 123 mL/min/{1.73_m2} >60 [facility] Comment on above: mL/min/1.73m2 CKD-EP I Creatinine Equation (2020) H AND P Exam - [facility] 06-07-2025 H&P Exam - Hospitalist [facility] Medical Records Department [address] [place] [id number] H P Exam - Hospitalist 06/07/25 1215 MR#: [id number] Acct: [id number] Name: MARCOS AGUIRRE Rep #: [id number] : 1995 29 From: Gregorio Qiu MD PCP: Dr. Nikita Gramajo, DO Status:ADM IN Location: [facility] [id number] HPI - General General Date of Admission: 06/07/25 Date of Service: 06/07/25 Chief Complaint: High grade fever 104.4 and low urine output. HPI Narrative MARCOS AGUIRRE, is a 29 M who was brought to ED by her mother/primary caregiver for running high fever. He had 104.4 Fahrenheit, tachycardia and low urine output. Patient has neuromuscular respiratory disorder and has a spina bifid with surgery in the past thoracic spine. 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 Bedbound with PEG tube, indwelling catheter at umbilicus level and colostomy. Patient denies any cough, sore throat, URI. In ED, BP 120/75, heart rate 131, respiratory rate 18. Does not meet criteria for sepsis. 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 Chronic respiratory failure with hypoxia and hypercapnia Neuromuscular respiratory weakness Chronic respiratory failure requiring treatment with nocturnal BPAP by mask Home Medications ???Medication ???Instructions ???Recorded ???Last Taken ???Type nut.tx impaired digestive See Rx Instructions feeding tube 0 12/01/22 Unknown History fxn-fiber 0.07 gram-1.5 kcal/mL .HS feed oral liquid (Vital Peptide 1.5 Shine) cholecalciferol (vitamin D3) 10 10 mcg PO QDAY 02/27/25 06/06/25 H istory mcg (400 unit) chewable tablet diltiazem HCl 240 mg capsule,24 240 mg PO QDAY 02/27/25 06/06/25 H istory hr,extended release acetaminophen 325 mg capsule 325 mg PO Q6H PRN fever or pain 06/07/25 History Allergy/AdvReac Type Severity Reaction Status Date / Time bacitracin Allergy Mild unknown Verified 06/07/25 10:38 latex Allergy Unknown Verified 06/07/25 10:38 levofloxacin (Levofloxacin) Allergy Rash Verified 06/07/25 10:38 sulfamethoxazole (From Allergy Rash Verified 06/07/25 10:38 Bactrim) trimethoprim (From Bactrim) Allergy Rash Verified 06/07/25 10:38 Social History Smoking Status: Never smoker ROS ROS Narrative 14 system was taken from patient's primary caregiver, her mother. Constitutional: Bedbound. Short stature, 5 feet 1 inch. High-grade fever HEENT: Reports systems reviewed and no addt'l complaints, except as documented Respiratory/Chest: No acute shortness of breath or respiratory distress or wheezing. CVS: No chest pain pressure or tightness Gastrointestinal: Denies coffee ground emesis, hematemesis or vomiting. No abdominal Genitourinary: Indwelling Wade catheter through umbilicus. No sensation below mid thoracic level Musculoskeletal: Kyphoscoliosis, spinal bifid at thoracic level. Status post surgery. Bedbound. High-level RLE amputation thigh. Neurologic: Denies seizure-like symptoms. skin: Chronic scar and deformity from thoracic spine surgery scar Endocrinology: Reports systems reviewed and no addt'l complaints, except as documented Hematologic/Lymphatic: Reports systems reviewed and no addt'l complaints, except as documented Rest 14 ROS are negative except as mentioned in HPI Vital Signs Vital Signs Vital Signs: 06/07/25 09:55 Temperature 99.1 F Temperature Source Oral Pulse Rate 131 H Respiratory Rate 18 Blood Pressure 126/75 H Blood Pressure Mean 92 Pulse Ox 95 Oxygen Delivery Method Room Air Weight Weight: 113 lb 5.082 oz Body Mass Index (BMI) 20.7 Physical Exam Narrative General: Alert, Oriented x3, Cooperative. Short stature. BMI 21.1 kg/m???, 5 feet 1 inch height HEENT: Atraumatic, PERRLA, EOMI, Normocephalic. Oral: Oral mucosa dry. No Gingival or Mucosal Lesions/ Ulcerations Neck: Very short and wide neck. Supple, No JVD, Negative Carotid Bruits Chest wall/Lungs: Surgical scar on the back, kyphoscoliosis. Air entry diminished in bilateral lung bases. No crepitation/rhonchi Cardiovascular: Sinus tachycardia, normal S1,S2, No M/G/R Abdomen: Bowel Sounds sluggish, soft, early colostomy. No rigidity. No distention : Indwelling catheter from umbilicus draining bladder. No renal angle tenderness. No suprapubic tenderness. Extremities: No edema, Capillary Refill Less than 3 Seconds Skin: No rashes, No breakdown Musculoskeletal: RLE amputation. No Tenderness to Palpation of Joints or Extremities Neurological: No sensation below mid thoracic level. Complete neuroexam unobtainable with spina bifid deformity. Psych/Mental Status: Flat affect Results Lab / Micro Data 05/23 (more content not included)... Normal [facility] Hematocrit Auto (Bld) [Volum e fraction]Ordered By: Joseph Rios on 06-07-2025 Hematocrit (Bld) [Volume fraction] 41.8 % 40-54 [facility] Hemoglobin measurementOrdere d By: Joseph Rios on 06-07-2025 Hemoglobin (Bld) [Mass/Vol] 14.2 g/dL 13.0-16.5 [facility] Immature granulocytes/100 WB C Auto (Bld)Ordered By: Joseph Rios on 06-07-2025 Immature granulocytes/100 WBC (Bld) 0.600 % 0.0-0.9 [facility] Comment on above: IG% - Immature Granu locytes (promyelocytes, myelocytes and metamyelocytes) > 1% indicates that a LEFT SHIFT is Present. Influenza virus A and B and SARS-CoV-2 (COVID-19) and Respiratory syncytial virus RNAOrdered By: Gregorio Qiu on 06-07-2025 SARS-CoV-2 (COVID-19) RNA MARY+probe Ql (Unsp spec) [facility] International normalized rat io (INR) calculationOrdered By: Gregorio Qiu on 06-07-2025 INR Coag (Bld) [Relative time] 1.3 {INR} [facility] Ketones Test strip Ql (U)Ord ered By: Joseph Rios on 06-07-2025 Ketones Ql (U) 15 mg/dl High Negative [facility] - Chemistry and C hemistry - challengeOrdered By: Joseph Rios on 06-07-2025 AST [Catalytic activity/Vol] 20 U/L <38 [facility] Lactic Acidon 06-07-2025 Lactate [Moles/Vol] mmol/L Normal 0.0-2.0 [facility] Comment on above: Order Comment: Y Performed By: #### L 501.5200, L501.1020, L300.3900, L300.4310 #### [facility] [address] [place], [address] Lactic acid measurementOrder ed By: Joseph Rios on 06-07-2025 Lactate [Moles/Vol] mmol/L 0.0-2.0 [facility] Legionella Antigen Urineon 0 06-07-2025 LEGDianna URINE, WADE Legionella Antigen result interpretation: L pneumo Ag Ur Ql Negative Presumptive negative for Legionella pneumophila serogroup 1 antigen in urine, suggesting no recent or current infection. Legionella Ag, Urine Negative (See interpretation below) Normal [facility] Comment on above: Performed By: #### L 501.5200, L501.3620, L300.3900, L300.4310 #### [facility] [address] [place], [address] M R Staph Aureus DNA by PCRo n 06-07-2025 MRSA DNA ASSAY Negative Normal Negative [facility] Comment on above: Performed By: #### L 501.5200, L501.3620, L300.3900, L300.4310 #### [facility] [address] [place], [address] M100.678on 06-07-2025 M100.678 Normal Reference Ran ge = Negative [employer] Instrument, PCR method SARS-CoV-2 (COVID 19) Negative INFLUENZA A Negative INFLUENZA B Negative RSV PCR Negative Normal [facility] Comment on above: Performed By: #### L 501.5200, L501.3620, L300.3900, L300.4310 #### [facility] [address] [place], [address] MCV (mean corpuscular volume ) determinationOrdered By: Joseph Rios on 06-07-2025 MCV (RBC) [Entitic vol] 83.9 fL 80-94 [facility] Magnesiumon 06-07-2025 Magnesium [Mass/Vol] 2.1 mg/dL Normal 1.5-2.2 [facility] Comment on above: Performed By: #### L 501.5200, L501.3620, L300.3900, L300.4310 #### [facility] [address] [place], [address] Mean corpuscular hemoglobin (MCH) determinationOrdered By: Joseph Rios on 06-07-2025 MCH (RBC) [Entitic mass] 28.5 pg 27.0-32.0 [facility] Mean corpuscular hemoglobin concentration (MCHC) determinationOrdered By: Joseph Rios on 06-07-2025 MCHC (RBC) [Mass/Vol] 34.0 g/dL 32-36 [facility] Mean platelet volume determi nationOrdered By: Joseph Rios on 06-07-2025 Platelet mean volume (Bld) [Entitic vol] 9.2 fL 6.2-12.0 [facility] Microscopic analysis of urin e for red blood cells (RBC)Ordered By: Joseph Rios on 06-07-2025 Microscopic analysis of urine for red blood cells (RBC) 5-10 SEEN /hpf 0-5 [facility] Monocyte percentageOrdered B y: Joseph Rios on 06-07-2025 Monocytes/100 WBC (Bld) 8.8 % 0-10 [facility] Mucus LM Ql (Urine sed)Order ed By: Josephamilcar Rios on 06-07-2025 Mucus Ql (Urine sed) 0 SEEN /hpf [facility] Neutrophil percentageOrdered By: Josephamilcar Rios on 06-07-2025 Neutrophils/100 WBC (Bld) 86.1 % High 47-70 [facility] Nitrite Test strip Ql (U)Ord ered By: Josephamilcar Rios on 06-07-2025 Nitrite Ql (U) Positive High Negative [facility] Nucleated red blood cell per centageOrdered By: Josephamilcar Rios on 06-07-2025 Nucleated RBC/100 WBC (Bld) [Ratio] 0 % 0-5 [facility] Partial Thromboplast Timeon 06-07-2025 aPTT Coag (Bld) [Time] 37.7 s High 24.1-36.2 [facility] Comment on above: Performed By: #### L 501.9440, L501.3620, L300.3900, L300.4310 #### [facility] [address] [place], [address] Platelet countOrdered By: Makeda Rios on 06-07-2025 Platelets (Bld) [#/Vol] 211 10*3/uL 150-450 [facility] Potassium measurement (mass/ volume)Ordered By: Joseph Rios on 06-07-2025 Potassium (Unsp spec) [Mass/Vol] 3.5 mmol/L 3.3-5.1 [facility] Protein Test strip Ql (U)Ord ered By: Joseph Rios on 06-07-2025 Protein Ql (U) 100 mg/dl High Negative [facility] Prothrombin Time w/INRon INR Coag (PPP) [Relative time] 1.3 {INR} Normal [facility] Comment on above: Performed By: #### L 501.5200, L501.3620, L300.3900, L300.4310 #### [facility] [address] [place], [address] PT Coag (PPP) [Time] 16.3 s High 11.7-14.9 [facility] Comment on above: Performed By: #### L 501.5200, L501.3620, L300.3900, L300.4310 #### [facility] [address] [place], [address] Prothrombin timeOrdered By: Gregorio Qiu on 06-07-2025 PT Coag (PPP) [Time] 16.3 s High 11.7-14.9 [facility] RBC Auto (Bld) [#/Vol]Ordere d By: Joseph Rios on 06-07-2025 RBC (Bld) [#/Vol] 4.98 10*6/uL 4.6-6.2 [facility] Serum creatinine measurement (mass/volume)Ordered By: Joseph Rios on 06-07-2025 Creatinine [Mass/Vol] 0.83 mg/dL 0.70-1.20 [facility] Serum globulin measurementOr dered By: Joseph Rios on 06-07-2025 Globulin (S) [Mass/Vol] 4.1 g/dL 2.2-4.2 [facility] Serum glucose measurement (m ass/volume)Ordered By: Joseph Rios on 06-07-2025 Glucose [Mass/Vol] 134 mg/dL High 70-99 [facility] Serum or plasma alanine humphries otransferase (ALT) measurementOrdered By: Joseph Rios on 06-07-2025 ALT [Catalytic activity/Vol] 35 U/L <47 [facility] Serum or plasma albumin bonnie urement (mass/volume)Ordered By: Joseph Rios on 06-07-2025 Albumin [Mass/Vol] 3.9 g/dL 3.5-5.0 [facility] Serum or plasma albumin/glob ulin mass ratioOrdered By: Joseph Rios on 06-07-2025 Albumin/Globulin [Mass ratio] 1.0 {ratio} 0.9-2.4 [facility] Serum or plasma alkaline kenn sphatase measurementOrdered By: Joseph Rios on 06-07-2025 ALP [Catalytic activity/Vol] 121 U/L 40-129 [facility] Serum or plasma calcium bonnie urement (mass/volume)Ordered By: Joseph Rios on 06-07-2025 Calcium [Mass/Vol] 9.5 mg/dL 7.6-11.0 [facility] Serum or plasma creatine kin ase activityOrdered By: Gregorio Qiu on 06-07-2025 CK [Catalytic activity/Vol] 96 U/L 24-195 [facility] Serum or plasma urea nitroge n measurement (mass/volume)Ordered By: Joseph Rios on 06-07-2025 Urea nitrogen [Mass/Vol] 13 mg/dL 4-19 [facility] Sodium levelOrdered By: Joseph Rios on 06-07-2025 Sodium [Moles/Vol] 133 mmol/L 133-145 [facility] Squamous epithelial cells de tection in urine sediment by light microscopyOrdered By: Joseph Rios on 06-07-2025 Epithelial cells.squamous LM Ql (Urine sed) 0-5 SEEN /hpf 0-5 [facility] Strep pneumoniae Antig(UR,CS F)on 06-07-2025 STPAG Strep pneumoniae Antig(UR,CSF) [] Negative Urine Presumptive negative for pneumococcal pneumonia, suggesting no current or recent pneumococcal infection. Infection due to S pneumoniae cannot be ruled out since the antigen present in the sample may be below the detection limit of the test. Strep pneumo Test Negative URINE (See interpretation below) Normal [facility] Comment on above: Performed By: #### L 501.5200, L501.3620, L300.3900, L300.4310 #### [facility] [address] [place], [address] Total proteinOrdered By: Joseph Rios on 06-07-2025 Protein [Mass/Vol] 8.0 g/dL 5.9-8.4 [facility] Urinalysis, Completeon 06-07 BACTERIA 2+ /hpf Normal None Seen [facility] Comment on above: Order Comment: CLEAN CATCH Performed By: #### L 400.0001 #### [facility] [address] [place], [address] EPI,SQUAMOUS 0-5 SEEN Normal 0-5 [facility] Comment on above: Order Comment: CLEAN CATCH Performed By: #### L 400.0001 #### [facility] [address] [place], [address] RBC 5-10 SEEN Normal 0-5 [facility] Comment on above: Order Comment: CLEAN CATCH Performed By: #### L 400.0001 #### [facility] [address] [place], [address] WBC 50-100 SEEN Normal 0-5 [facility] Comment on above: Order Comment: CLEAN CATCH Performed By: #### L 400.0001 #### [facility] [address] [place], [address] Mucus Ql (Urine sed) 0 SEEN Normal [facility] Comment on above: Order Comment: CLEAN CATCH Performed By: #### L 400.0001 #### [facility] [address] [place], [address] Urine Legionella pneumophila antigen detectionOrdered By: Gregorio Qiu on 06-07-2025 L. pneumophila Ag Ql (U) [facility] Urine clarityOrdered By: Joseph Rios on 08-16-2025 Clarity (U) Cloudy Clear [facility] Urine color determinationOrd ered By: Joseph Rios on 06-07-2025 Color (U) Yellow Yellow [facility] Urine cultureOrdered By: Lior Qiu on 06-07-2025 Bacteria identified Cx Nom (U) Pseudomonas aeruginosa Abnormal [facility] Bacteria identified Cx Nom (U) Proteus vulgaris Abnormal [facility] Urine glucose detectionOrder ed By: Joseph Rios on 06-07-2025 Glucose Ql (U) Normal mg/dl Normal [facility] Urine leukocyte esterase det ection by dipstickOrdered By: Joseph Rios on 06-07-2025 Leukocyte esterase Test strip Ql (U) 500 /ul High Negative [facility] Urine pHOrdered By: Joseph fitzgerald on 06-07-2025 pH (U) 8.0 [pH] 5.0 - 8.0 [facility] Urine sediment bacteria coun t by microscopy (number/high power field)Ordered By: Joseph Rios on 06-07-2025 Bacteria LM.HPF (Urine sed) [#/Area] 2 /[HPF] None Seen [facility] Urine specific gravity measu rementOrdered By: Joseph Rios on 06-07-2025 Specific gravity (U) [Rel density] 1.010 1.002-1.030 [facility] Urine urobilinogen measureme ntOrdered By: Joseph Rios on 06-07-2025 Urobilinogen Ql (U) Normal mg/dl Normal [facility] White blood cell (WBC) count Ordered By: Joseph Rios on 06-07-2025 WBC (Bld) [#/Vol] 19.4 10*3/uL High 4.4-11.0 [facility] White blood cell countOrdere d By: Joseph Rios on 06-07-2025 White blood cell count 50-100 SEEN /hpf 0-5 [facility] Pulmonary Visit Reporton Pulmonary Visit Report [facility] [place] [address] [place] [address] OFFICE VISIT Date of Service: 06/05/25 MR#: [id number] Acct: [id number] Name: MARCOS AGUIRRE Rep #: [id number] : 1995 Provider: COSMO Peterson Age/Sex: 29/M Location: [facility].PMW Status: Signed Assessment and Plan Assessment and Plan (1) Chronic respiratory failure with hypoxia and hypercapnia: Status: Chronic Plan: Improved. The patient has responded well to the adjustments made to his noninvasive ventilator. His fatigue is less problematic. He is no longer experiencing difficulty in trying to wake up and get ready for work. No additional testing is necessary. No additional changes. Follow-up in 1 year. Contact the office with any new or worsening symptoms in the meantime. (2) Neuromuscular respiratory weakness: Status: Chronic Plan: Managed with noninvasive ventilator for sleep and rescue. (3) Spina bifida: Status: Chronic Qualifiers: Presence of hydrocephalus: with hydrocephalus Spinal region: thoracic Qualified Code(s): Q05.1 - Thoracic spina bifida with hydrocephalus Plan: Complicates exam, plan, care and prognosis. (4) Hypertension: Status: Chronic Qualifiers: Hypertension type: primary hypertension Qualified Code(s): I10 - Essential (primary) hypertension Plan: According to our documentation this has been ongoing. It is persistent even though the patient is on diltiazem for heart rate control, which can have antihypertensive effects. The patient has a follow-up with his primary care doctor in the near future, I suggested that they discuss this as it may be causing his headaches. He conveys understanding. (5) Fatigue: Status: Chronic Qualifiers: Fatigue type: chronic, unspecified Qualified Code(s): R53.82 - Chronic fatigue, unspecified Plan: Somewhat improved on recent changes to his noninvasive ventilator. Residual fatigue could be multifactorial. He does have a history of depression and failure to thrive. He would likely benefit from a workup to look for other causes, such as hypothyroidism or anemia. He states that his primary care doctor typically does annual blood work. They will discuss this at the routine follow-up next month. Plan Details Additional Comments: This note was generated with Siteheartation software. It may contain incorrect words, spelling, and punctuation that were not noted in checking the note before signing. Follow Up: 1 Year HPI 3 M FU Chief Complaint: Routine follow-up HPI Comments Details: This patient presents to the office today for follow-up of his chronic hypoxic respiratory failure secondary to neuromuscular weakness caused by spina bifida. He is in wheelchair, on room air and accompanied today by [...] his noninvasive ventilator with all sleep. He admits that he is feeling more rested, however some fatigue persists. He continues to experience headaches. He denies any difficulty with dry mouth. He is not experiencing mask leaks. Compliance report for the past 30 days shows 100% compliance with AVAPS???AE, an average use of 12.1 hours per night. Average pressures being utilized are 25.9 cm of water inspiratory pressure in 9.7 cm of water expiratory pressure. Intake Vital Signs 02/27/25 09:01 06/05/25 09:07 Height 5 ft 2 in 5 ft 2 in Weight: 101 lb BMI 18.4 BP 130/90 H Blood Pressure Location Lt brachial Position Sitting Respiration 16 Pulse 78 Pulse Source Monitor Temp 97.3 F L Temperature Source Temporal Artery Pulse Oximetry (%) 99 Oxygen Delivery Method room air Intake Visit Reasons: 3 M FU Chief Complaint: postop DME Vendor: Fan Accompanied by: Mom Is patient in pain?: No Allergies bacitracin Allergy (Mild, Verified 06/05/25 15:00) unknown latex Allergy (Verified 06/05/25 15:00) Unknown levofloxacin (Levofloxacin) Allergy (Verified 06/05/25 15:00) Rash sulfamethoxazole (From Bactrim) Allergy (Verified 06/05/25 15:00) Rash trimethoprim (From Bactrim) Allergy (Verified 06/05/25 15:00) Rash Medications ???Medication ???Instructions ???Recorded ???Confirmed ???Type nut.tx impaired digestive ml PO 12/01/22 06/05/25 History fxn-fiber 0.07 gram-1.5 kcal/mL oral liquid (Vital Peptide 1.5 Shine) cholecalciferol (vitamin D3) 10 10 mcg PO QDAY 02/27/25 06/05/25 H istory mcg (400 unit) chewable tablet diltiazem HCl (more content not included)... Normal [facility] Pulmonary Visit Reporton Pulmonary Visit Report [facility] [place] [address] [place] [address] OFFICE VISIT Date of Service: 02/27/25 MR#: [id number] Acct: [id number] Name: MARCOS AGUIRRE Rep #: [id number] : 1995 Provider: COSMO Peterson Age/Sex: 29/M Location: [facility].PMW Status: Signed Assessment and Plan Assessment and Plan (1) Chronic respiratory failure with hypoxia and hypercapnia: Status: Chronic Plan: He is using and benefiting from noninvasive ventilator. However, he is experiencing frequent morning headaches and some persistent daytime fatigue. I will ask the [employer] to send a respiratory therapist out to [...] Additional Comments: This note was generated with Dragon dictation software. It may contain incorrect words, spelling, and punctuation that were not noted in checking the note before signing. Follow Up: 3 Months ([facility]) HPI NIGEL Follow up Chief Complaint: Morning [...] Reasons: NIGEL Follow up Chief Complaint: postop Security Public Safety Officer Required: No DME Vendor: Fan Accompanied by: [...] 02/27/25 02/27/25 H istory hr,extended release [facility] Medical History (Reviewed 02/27/25 @ 15:04 by Alexa Peterson WOOL PRESSER, WOOL PRESSER (more content not included)... Normal [facility] 25-hydroxyvitamin D3 [Mass/V ol]on 01-24-2025 Interpretation and review of laboratory results Normal [facility] The reference range interval was based on an analysis of samples from healthy adults and may not pertain to children from 0-18 years old. [facility] CBC W Auto Differential pane l (Bld)on 01-24-2025 Basophils (Bld) [#/Vol] 0.05 10*3/uL [facility] Basophils/100 WBC (Bld) 0.6 % C [facility] Differential cell count method Nom (Bld) Auto [facility] Eosinophils (Bld) [#/Vol] 0.17 10*3/uL [facility] Eosinophils/100 WBC (Bld) 1.9 % [facility] Erythrocyte distribution width (RBC) [Ratio] 12.2 % 11.5 - 15.0 % [facility] Hematocrit (Bld) [Volume fraction] 46.6 % 39.0 - 51.0 % [facility] Hemoglobin (Bld) [Mass/Vol] 15.6 g/dL 13.0 - 17.0 g/dL [facility] Immature granulocytes (Bld) [#/Vol] 0.03 10*3/uL [facility] Immature granulocytes/100 WBC (Bld) 0.3 % [facility] Interpretation and review of laboratory results Abnormal [facility] Lymphocytes (Bld) [#/Vol] 2.57 10*3/uL [facility] Lymphocytes/100 WBC (Bld) 28.3 % [facility] MCH (RBC) [Entitic mass] 27.9 pg 26.0 - 34.0 pg [facility] MCHC (RBC) [Mass/Vol] 33.5 g/dL 30.5 - 36.0 g/dL [facility] MCV (RBC) [Entitic vol] 83.2 fL 80.0 - 100.0 fL [facility] Monocytes (Bld) [#/Vol] 0.82 10*3/uL [facility] Monocytes/100 WBC (Bld) 9 % [facility] Neutrophils (Bld) [#/Vol] 5.43 10*3/uL [facility] Neutrophils/100 WBC (Bld) 59.9 % [facility] Nucleated RBC (Bld) [#/Vol] NINF [facility] Nucleated RBC/100 WBC (Bld) [Ratio] 0 % /100 WBC [facility] Platelet mean volume (Bld) [Entitic vol] 8.9 fL Low 9.0 - 12.7 fL [facility] Platelets (Bld) [#/Vol] 313 10*3/uL [facility] RBC (Bld) [#/Vol] 5.6 10*6/uL 4.20 - 6.0 0 m/uL [facility] WBC (Bld) [#/Vol] 9.07 10*3/uL [facility] FERRITINon 01-24-2025 Ferritin [Mass/Vol] 93.7 ng/mL 30.3 - 565.7 ng/mL [facility] Ferritin [Mass/Vol]on 2024 Interpretation and review of laboratory results Normal [facility] Hepatic function 2000 panelo n 01-24-2025 Albumin [Mass/Vol] 4.3 g/dL 3.9 - 4.9 g/dL [facility] ALP [Catalytic activity/Vol] 107 U/L 38 - 113 U/L [facility] ALT [Catalytic activity/Vol] 29 U/L 10 - 54 U/L [facility] AST [Catalytic activity/Vol] 22 U/L 14 - 40 U/L [facility] Bilirubin [Mass/Vol] 0.3 mg/dL 0.2 - 1 .3 mg/dL [facility] Bilirubin.conjugated [Mass/Vol] 0.1 mg/dL NINF - 0.3 mg/dL [facility] Protein [Mass/Vol] 8.4 g/dL High 6.3 - 8.0 g/dL [facility] Lipid 1996 panelon 04-04-202 5 Cholesterol [Mass/Vol] 162 mg/dL NINF - 200 mg/dL [facility] Comment on above: <200 mg/dL, Desirabl e 200-239 mg/dL, Borderline high >239 mg/dL, High Cholesterol in HDL [Mass/Vol] 37 mg/dL Low 39 - PINF mg/dL [facility] Comment on above: 40-59 mg/dL, Accepta ble >59 mg/dL, High: Negative risk factor for coronary heart disease <40 mg/dL, Low: Positive risk factor for coronary heart disease Cholesterol in LDL [Mass/Vol] 104 mg/dL High NINF - 100 mg/dL [facility] Comment on above: <100 mg/dL, Optimal 100-129 mg/dL, Near optimal/above optimal 130-159 mg/dL, Borderline high 160-189 mg/dL, High >189 mg/dL, Very high Secondary prevention optimal LDL Cholesterol levels are recommended to be < 70 mg/dL Cholesterol in LDL/Cholesterol in HDL [Mass ratio] 2.81 {ratio} High NINF - 2.54 [facility] Comment on above: Reference: 1. National Cholesterol Education Program ATP III Guideline At-A-Glance Quick Desk Reference: National Heart, Lung, and Blood [place]. National Institutes of Health. 2001: NIH Publication No. 01-3305. 2. An International Atherosclerosis Society position paper: global recommendations for the management of dyslipidemia: executive summary, Atherosclerosis. 2014: 232(2):410-413. Cholesterol in VLDL [Mass/Vol] 21 mg/dL NINF - 30 mg/dL [facility] Cholesterol non HDL [Mass/Vol] 125 mg/dL NINF - 130 mg/dL [facility] Comment on above: <130 mg/dL, Optimal 130-159 mg/dL, Near optimal/above optimal 160-189 mg/dL, Borderline high 190-219 mg/dL, High >219 mg/dL, Very high Secondary prevention optimal non HDL Cholesterol levels are recommended to be <100 mg/dL Cholesterol.total/[place] sterol in HDL [Mass ratio] 4.38 {ratio} NINF - 5.10 [facility] Fasting Time 1 hrs [facility] Triglyceride [Mass/Vol] 107 mg/dL NINF - 150 mg/dL [facility] Comment on above: <150 mg/dL, Normal 150-199 mg/dL, Borderline high 200-499 mg/dL, High >499 mg/dL, Very high MAGNESIUMon 01-24-2025 Magnesium [Mass/Vol] 2 mg/dL 1.7 - 2 .3 mg/dL [facility] Magnesium [Mass/Vol]on 01-24 Interpretation and review of laboratory results Normal [facility] No Panel Informationon 01-24 Interpretation and review of laboratory results Abnormal [facility] US Kidney - bilateral and Ur inary bladderon 01-24-2025 IMPRESSION: No hydronephrosis. No definite echogenic, shadowing stones although assessment of the LEFT kidney is technically very limited. Quality Tester: [facility] Transcribe Date/Time: Jan 24 2025 1:51P Dictated by : RONNIE MERCADO MD This examination was interpreted and the report reviewed and electronically signed by: RONNIE MERCADO MD on Jan 24 2025 1:53PM [facility] DIVISION OF RADIOLOGY * * *Final Report* * * DATE OF EXAM: Jan 24 2025 1:47PM [facility] 1055 - US KIDNEY/BLADDER / PROCEDURE REASON: [...] Completely collapsed/not visualized. DIVISION OF RADIOLOGY Provider, [facility] Desmond Tyson - 01/24/2025 * * *Final Report* * * DATE OF EXAM: Jan 24 2025 1:47PM [facility] 1055 - US KIDNEY/BLADDER / PROCEDURE REASON: [...] the LEFT kidney is technically very limited. Quality Tester: [facility] Transcribe Date/Time: Jan 24 2025 1:51P Dictated by : RONNIE MERCADO MD This examination was interpreted and the report reviewed and electronically signed by: RONNIE MERCADO MD on Jan 24 2025 1:53PM EST [facility] Radiology Study observation (narrative) [facility] US Kidney - bilateral and Ur inary bladderOrdered By: [facility] Provider on 01-24-2025 [facility] VITAMIN D 25 HYDROXYon 01-24 25-hydroxyvitamin D3 [Mass/Vol] 76.1 ng/mL 31.0 - 80.0 ng/mL [facility] Comment on above: Classification of 25 [place] Vitamin D status: Deficiency/Insufficiency: < or = 30 ng/ml. Sufficiency/Optimal Levels: 31-80 ng/mL Toxicity: > 100 ng/mL. Test performed by chemiluminescent immunoassay. .Auto Diffon 08-05-2024 Basophil, Absolute 0.1 10 3/mcL [facility]0-0.2 [facility] Comment on above: Performed By: #### P BNP, TSH, ANEU, A1C, CMP, LIPID, FT4, CBC, GFR, MG, ADIFF #### [address] [address] #### B12, HCV1 #### [address] [address] Basophils/100 WBC (Bld) 0.7 % Normal 0.0-2.5 [facility] Comment on above: Performed By: #### P BNP, TSH, ANEU, A1C, CMP, LIPID, FT4, CBC, GFR, MG, ADIFF #### [address] [address] #### B12, HCV1 #### [address] [address] Eosinophil, Absolute 0.2 10 3/mcL Normal 0.0-0.7 [facility] Comment on above: Performed By: #### P BNP, TSH, ANEU, A1C, CMP, LIPID, FT4, CBC, GFR, MG, ADIFF #### [address] [address] #### B12, HCV1 #### [address] [address] Eosinophils/100 WBC (Bld) 2.2 % Normal 0.0-7.0 [facility] Comment on above: Performed By: #### P BNP, TSH, ANEU, A1C, CMP, LIPID, FT4, CBC, GFR, MG, ADIFF #### [address] [address] #### B12, HCV1 #### [address] [address] Lymphocyte, Absolute 2.7 10 3/mcL Normal 0.9-4.3 [facility] Comment on above: Performed By: #### P BNP, TSH, ANEU, A1C, CMP, LIPID, FT4, CBC, GFR, MG, ADIFF #### [address] [address] #### B12, HCV1 #### [address] [address] Lymphocytes/100 WBC (Bld) 32.4 % Normal 20.0-40.0 [facility] Comment on above: Performed By: #### P BNP, TSH, ANEU, A1C, CMP, LIPID, FT4, CBC, GFR, MG, ADIFF #### [address] [address] #### B12, HCV1 #### [address] [address] Monocyte, Absolute 0.7 10 3/mcL Normal 0.1-1.4 [facility] Comment on above: Performed By: #### P BNP, TSH, ANEU, A1C, CMP, LIPID, FT4, CBC, GFR, MG, ADIFF #### [place] [address] #### B12, HCV1 #### [address] [address] Monocytes/100 WBC (Bld) 8.0 % Normal 2.0-13.0 [facility] Comment on above: Performed By: #### P BNP, TSH, ANEU, A1C, CMP, LIPID, FT4, CBC, GFR, MG, ADIFF #### [address] [address] #### B12, HCV1 #### [address] [address] Neutrophils/100 WBC (Bld) 56.7 % Normal 50.0-75.0 [facility] Comment on above: Performed By: #### P BNP, TSH, ANEU, A1C, CMP, LIPID, FT4, CBC, GFR, MG, ADIFF #### [place] [address] #### B12, HCV1 #### [address] [address] .GFRon 08-05-2024 GFR Non- 168 ml/min/1.73sqm Normal [facility] Comment on above: Result Comment: [...] LIPID, FT4, CBC, GFR, MG, ADIFF #### [address] [address] #### B12, HCV1 #### [address] [address] GFR 204 ml/min/1.73sqm Normal [facility] Comment on above: Result Comment: [...] LIPID, FT4, CBC, GFR, MG, ADIFF #### [address] [address] #### B12, HCV1 #### [address] [address] .NEUABSon 08-05-2024 Neutrophil, Absolute 4.6 10 3/mcL Normal 2.3-8.1 [facility] Comment on above: Performed By: #### P BNP, TSH, ANEU, A1C, CMP, LIPID, FT4, CBC, GFR, MG, ADIFF #### [place] [address] #### B12, HCV1 #### [place] [address] A1Con 08-05-2024 Glucose [Mass/Vol] 103 mg/dL Normal [facility] Comment on above: Result Comment: Mary mated Average Glucose calculated by equation ((28.7xA1C)-46.7) Estimated average glucose (eAG) is a calculated value from Hemoglobin A1C and is media sales representative of the average blood glucose level in the last 2-3 month period. Normal range: less than 114 mg/dL Performed By: #### P BNP, TSH, ANEU, A1C, CMP, LIPID, FT4, CBC, GFR, MG, ADIFF #### [place] [address] #### B12, HCV1 #### [place] [address] HbA1c (Bld) [Mass fraction] 5.2 % Normal 4.3-6.4 [facility] Comment on above: Performed By: #### P BNP, TSH, ANEU, A1C, CMP, LIPID, FT4, CBC, GFR, MG, ADIFF #### [place] [address] #### B12, HCV1 #### [place] [address] B12on 08-05-2024 Cobalamin (Vitamin B12) [Mass/Vol] 1086 pg/mL High 211-911 [facility] Comment on above: Performed By: #### P BNP, TSH, ANEU, A1C, CMP, LIPID, FT4, CBC, GFR, MG, ADIFF #### [place] [address] #### B12, HCV1 #### [place] [address] CBCon 08-05-2024 Erythrocyte distribution width (RBC) [Ratio] 13.2 % Normal 11.5-15.5 [facility] Comment on above: Performed By: #### P BNP, TSH, ANEU, A1C, CMP, LIPID, FT4, CBC, GFR, MG, ADIFF #### [address] [address] #### B12, HCV1 #### [place] [address] Hematocrit (Bld) [Volume fraction] 47.4 % Normal 40.0-52.0 [facility] Comment on above: Performed By: #### P BNP, TSH, ANEU, A1C, CMP, LIPID, FT4, CBC, GFR, MG, ADIFF #### [address] [address] #### B12, HCV1 #### [place] [address] Hgb 15.9 G/dL Normal 13.0-17.5 [facility] Comment on above: Performed By: #### P BNP, TSH, ANEU, A1C, CMP, LIPID, FT4, CBC, GFR, MG, ADIFF #### [address] [address] #### B12, HCV1 #### [place] [address] MCH (RBC) [Entitic mass] 28.4 pg Normal 27.0-33.0 [facility] Comment on above: Performed By: #### P BNP, TSH, ANEU, A1C, CMP, LIPID, FT4, CBC, GFR, MG, ADIFF #### [address] [address] #### B12, HCV1 #### [place] [address] MCHC 33.6 G/dL Normal 32.0-36.0 [facility] Comment on above: Performed By: #### P BNP, TSH, ANEU, A1C, CMP, LIPID, FT4, CBC, GFR, MG, ADIFF #### [place] [address] #### B12, HCV1 #### [place] [address] MCV (RBC) [Entitic vol] 84.4 fL Normal 81.0-100.0 [facility] Comment on above: Performed By: #### P BNP, TSH, ANEU, A1C, CMP, LIPID, FT4, CBC, GFR, MG, ADIFF #### [place] [address] #### B12, HCV1 #### [place] [address] Platelet 348 10 3/mcL Normal 150-450 [facility] Comment on above: Performed By: #### P BNP, TSH, ANEU, A1C, CMP, LIPID, FT4, CBC, GFR, MG, ADIFF #### [place] [address] #### B12, HCV1 #### [place] [address] Platelet mean volume (Bld) [Entitic vol] 7.1 fL Normal 6.4-10.5 [facility] Comment on above: Performed By: #### P BNP, TSH, ANEU, A1C, CMP, LIPID, FT4, CBC, GFR, MG, ADIFF #### [place] [address] #### B12, HCV1 #### [place] [address] RBC 5.62 10 6/mcL Normal 4.50-6.00 [facility] Comment on above: Performed By: #### P BNP, TSH, ANEU, A1C, CMP, LIPID, FT4, CBC, GFR, MG, ADIFF #### [place] [address] #### B12, HCV1 #### [place] [address] WBC 8.2 10 3/mcL Normal 4.5-10.8 [facility] Comment on above: Performed By: #### P BNP, TSH, ANEU, A1C, CMP, LIPID, FT4, CBC, GFR, MG, ADIFF #### [address] [address] #### B12, HCV1 #### [address] [address] CMPon 08-05-2024 Albumin Level 4.4 G/dL Normal 3.5-5.0 [facility] Comment on above: Performed By: #### P BNP, TSH, ANEU, A1C, CMP, LIPID, FT4, CBC, GFR, MG, ADIFF #### [address] [address] #### B12, HCV1 #### [address] [address] Albumin/Globulin [Mass ratio] 1.0 {ratio} Low 1.1-2.5 [facility] Comment on above: Performed By: #### P BNP, TSH, ANEU, A1C, CMP, LIPID, FT4, CBC, GFR, MG, ADIFF #### [address] [address] #### B12, HCV1 #### [address] [address] ALP [Catalytic activity/Vol] 112 U/L Normal 40-135 [facility] Comment on above: Performed By: #### P BNP, TSH, ANEU, A1C, CMP, LIPID, FT4, CBC, GFR, MG, ADIFF #### [address] [address] #### B12, HCV1 #### [address] [address] ALT [Catalytic activity/Vol] 41 U/L Normal 16-63 [facility] Comment on above: Performed By: #### P BNP, TSH, ANEU, A1C, CMP, LIPID, FT4, CBC, GFR, MG, ADIFF #### [place] [address] #### B12, HCV1 #### [address] [address] AST [Catalytic activity/Vol] 19 U/L Normal 10-40 [facility] Comment on above: Performed By: #### P BNP, TSH, ANEU, A1C, CMP, LIPID, FT4, CBC, GFR, MG, ADIFF #### [address] [address] #### B12, HCV1 #### [place] [address] Bili Total 0.5 mg/dL Normal 0.2-1.0 [facility] Comment on above: Result Comment: Use of this assay is not recommended for patients undergoing treatment with eltrombopag due to the potential for falsely elevated results. Performed By: #### P BNP, TSH, ANEU, A1C, CMP, LIPID, FT4, CBC, GFR, MG, ADIFF #### [place] [address] #### B12, HCV1 #### [place] [address] BUN/Creatinine Ratio 19 ratio Normal 7-27 [facility] Comment on above: Performed By: #### P BNP, TSH, ANEU, A1C, CMP, LIPID, FT4, CBC, GFR, MG, ADIFF #### [place] [address] #### B12, HCV1 #### [place] [address] Calcium [Mass/Vol] 10.0 mg/dL Normal 8.4-10.2 [facility] Comment on above: Performed By: #### P BNP, TSH, ANEU, A1C, CMP, LIPID, FT4, CBC, GFR, MG, ADIFF #### [place] [address] #### B12, HCV1 #### [place] [address] Chloride [Moles/Vol] 100 mmol/L Normal 98-107 [facility] Comment on above: Performed By: #### P BNP, TSH, ANEU, A1C, CMP, LIPID, FT4, CBC, GFR, MG, ADIFF #### [address] [address] #### B12, HCV1 #### [address] [address] CO2 [Moles/Vol] 25 mmol/L Normal 22-29 [facility] Comment on above: Performed By: #### P BNP, TSH, ANEU, A1C, CMP, LIPID, FT4, CBC, GFR, MG, ADIFF #### [place] [address] #### B12, HCV1 #### [place] [address] Creatinine [Mass/Vol] 0.58 mg/dL Low 0.70-1.30 [facility] Comment on above: Result Comment: Test ing performed on Siemens Dimension EXL analyzer using a modified kinetic Skyler technique. Performed By: #### P BNP, TSH, ANEU, A1C, CMP, LIPID, FT4, CBC, GFR, MG, ADIFF #### [place] [address] #### B12, HCV1 #### [place] [address] Electrolyte Balance 12.0 mEq/L Normal 4.0-15.0 [facility] Comment on above: Performed By: #### P BNP, TSH, ANEU, A1C, CMP, LIPID, FT4, CBC, GFR, MG, ADIFF #### [address] [address] #### B12, HCV1 #### [place] [address] Globulin 4.3 G/dL Normal [facility] Comment on above: Performed By: #### P BNP, TSH, ANEU, A1C, CMP, LIPID, FT4, CBC, GFR, MG, ADIFF #### [address] [address] #### B12, HCV1 #### [place] [address] Glucose [Mass/Vol] 88 mg/dL Normal 70-105 [facility] Comment on above: Performed By: #### P BNP, TSH, ANEU, A1C, CMP, LIPID, FT4, CBC, GFR, MG, ADIFF #### [address] [address] #### B12, HCV1 #### [address] [address] Potassium [Moles/Vol] 3.8 mmol/L Normal 3.5-5.1 [facility] Comment on above: Performed By: #### P BNP, TSH, ANEU, A1C, CMP, LIPID, FT4, CBC, GFR, MG, ADIFF #### [address] [address] #### B12, HCV1 #### [address] [address] Sodium [Moles/Vol] 137 mmol/L Normal 136-145 [facility] Comment on above: Performed By: #### P BNP, TSH, ANEU, A1C, CMP, LIPID, FT4, CBC, GFR, MG, ADIFF #### [address] [address] #### B12, HCV1 #### [address] [address] Total Protein 8.7 G/dL High 6.4-8.2 [facility] Comment on above: Performed By: #### P BNP, TSH, ANEU, A1C, CMP, LIPID, FT4, CBC, GFR, MG, ADIFF #### [address] [address] #### B12, HCV1 #### [address] [address] Urea nitrogen [Mass/Vol] 11 mg/dL Normal 7-18 [facility] Comment on above: Performed By: #### P BNP, TSH, ANEU, A1C, CMP, LIPID, FT4, CBC, GFR, MG, ADIFF #### [address] [address] #### B12, HCV1 #### [place] [id number] FT4on 08-05-2024 Free T4 [Mass/Vol] 0.95 ng/dL Normal 0.76-1.46 [facility] Comment on above: Performed By: #### P BNP, TSH, ANEU, A1C, CMP, LIPID, FT4, CBC, GFR, MG, ADIFF #### [address] [address] #### B12, HCV1 #### [place] [address] HCVon 08-05-2024 Hep C Ab Non-Reactive Normal Non-Reactiv e [facility] Comment on above: Performed By: #### P BNP, TSH, ANEU, A1C, CMP, LIPID, FT4, CBC, GFR, MG, ADIFF #### [place] [address] #### B12, HCV1 #### [place] [address] Hep C Ab Int Normal [facility] Comment on above: Result Comment: [...] LIPID, FT4, CBC, GFR, MG, ADIFF #### [address] [address] #### B12, HCV1 #### [place] [address] LABORATORYOrdered By: SYSTEM SYSTEM on 08-05-2024 Albumin [...] calculated value from Hemoglobin A1C and is media sales representative of the average blood glucose level [...] Cholesterol [Mass/Vol] 194 mg/dL Normal 0 - 2 00 mg/dL AO ADM SS Comment on above: [...] 08-05-2024 Cholesterol [Mass/Vol] 194 mg/dL Normal 0-200 [facility] Comment on above: Result Comment: Chol esterol Reference Interval: Less than 200 Desirable 200-239 Borderline high risk 240 and above High risk Performed By: #### P BNP, TSH, ANEU, A1C, CMP, LIPID, FT4, CBC, GFR, MG, ADIFF #### [place] [address] #### B12, HCV1 #### [address] [address] Cholesterol in HDL [Mass/Vol] 50 mg/dL Normal 40-60 [facility] Comment on above: Performed By: #### P BNP, TSH, ANEU, A1C, CMP, LIPID, FT4, CBC, GFR, MG, ADIFF #### [address] [address] #### B12, HCV1 #### [address] [address] Cholesterol in LDL [Mass/Vol] 114 mg/dL Normal 0-130 [facility] Comment on above: Performed By: #### P BNP, TSH, ANEU, A1C, CMP, LIPID, FT4, CBC, GFR, MG, ADIFF #### [address] [address] #### B12, HCV1 #### [place] [address] Triglyceride [Mass/Vol] 149 mg/dL Normal 0-150 [facility] Comment on above: Result Comment: Trig lyceride Reference Interval: Less than 150 Normal 150-199 Borderline high risk 200-499 High risk 500 or higher Very high risk Performed By: #### P BNP, TSH, ANEU, A1C, CMP, LIPID, FT4, CBC, GFR, MG, ADIFF #### [address] [address] #### B12, HCV1 #### [address] [address] MGon 08-05-2024 Magnesium [Mass/Vol] 1.9 mg/dL Normal 1.8-2.4 [facility] Comment on above: Performed By: #### P BNP, TSH, ANEU, A1C, CMP, LIPID, FT4, CBC, GFR, MG, ADIFF #### [address] [address] #### B12, HCV1 #### [address] [address] PBNPon 08-05-2024 Natriuretic peptide B (Bld) [Mass/Vol] 20 pg/mL Normal 0-125 [facility] Comment on above: Result Comment: NT-p roBNP results of less than 300 pg/mL effectively rules out acute congestive heart failure with 99% negative predictive value. Performed By: #### P BNP, TSH, ANEU, A1C, CMP, LIPID, FT4, CBC, GFR, MG, ADIFF #### [place] [address] [place], [place] [address] #### B12, HCV1 #### [facility] [address] [place] [address] TSHon 08-05-2024 TSH Qn 1.67 m[IU]/L Normal 0.36-3.74 [facility] Comment on above: Performed By: #### P BNP, TSH, ANEU, A1C, CMP, LIPID, FT4, CBC, GFR, MG, ADIFF #### [place] [address] [place], [place] [address] #### B12, HCV1 #### [facility] [address] [place] [address] CBC W Auto Differential pane l (Bld)on 01-26-2024 Basophils (Bld) [#/Vol] 0.04 10*3/uL <0.11 k/uL [facility] Basophils/100 WBC (Bld) 0.5 % [facility] Differential cell count method Nom (Bld) Auto [facility] Eosinophils (Bld) [#/Vol] 0.13 10*3/uL <0.46 k/uL [facility] Eosinophils/100 WBC (Bld) 1.7 % [facility] Erythrocyte distribution width (RBC) [Ratio] 12.3 % 11.5 - 15.0 % [facility] Hematocrit (Bld) [Volume fraction] 49.4 % 39.0 - 51.0 % [facility] Hemoglobin (Bld) [Mass/Vol] 16.2 g/dL 13.0 - 17.0 g/dL [facility] Immature granulocytes (Bld) [#/Vol] 0.03 10*3/uL <0.10 k/uL [facility] Immature granulocytes/100 WBC (Bld) 0.4 % [facility] Lymphocytes (Bld) [#/Vol] 2.41 10*3/uL 1.00 - 4.00 k/uL [facility] Lymphocytes/100 WBC (Bld) 31.5 % [facility] MCH (RBC) [Entitic mass] 27.6 pg 26.0 - 34.0 pg [facility] MCHC (RBC) [Mass/Vol] 32.8 g/dL 30.5 - 36.0 g/dL [facility] MCV (RBC) [Entitic vol] 84.3 fL 80.0 - 100.0 fL [facility] Monocytes (Bld) [#/Vol] 0.60 10*3/uL <0.87 k/uL [facility] Monocytes/100 WBC (Bld) 7.8 % [facility] Neutrophils (Bld) [#/Vol] 4.45 10*3/uL 1.45 - 7.50 k/uL [facility] Neutrophils/100 WBC (Bld) 58.1 % [facility] Nucleated RBC (Bld) [#/Vol] <0.01 k/uL [facility] Nucleated RBC/100 WBC (Bld) [Ratio] 0.0 /100 WBC [facility] Platelet mean volume (Bld) [Entitic vol] 9.2 fL 9.0 - 12.7 fL [facility] Platelets (Bld) [#/Vol] 342 10*3/uL 150 - 400 k/uL [facility] RBC (Bld) [#/Vol] 5.86 10*6/uL 4.20 - 6.0 0 m/uL [facility] WBC (Bld) [#/Vol] 7.66 10*3/uL 3.70 - 11.00 k/uL [facility] FERRITIN BLDon 01-26-2024 Ferritin [Mass/Vol] 44.2 ng/mL 30.3 - 565.7 ng/mL [facility] Hepatic function 2000 panelo n 01-26-2024 Albumin [Mass/Vol] 4.5 g/dL 3.9 - 4.9 g/dL [facility] ALP [Catalytic activity/Vol] 92 U/L 38 - 113 U/L [facility] ALT [Catalytic activity/Vol] 28 U/L 10 - 54 U/L [facility] AST [Catalytic activity/Vol] 24 U/L 14 - 40 U/L [facility] Bilirubin [Mass/Vol] 0.4 mg/dL 0.2 - 1 .3 mg/dL [facility] Bilirubin.conjugated [Mass/Vol] <0.2 mg/dL [facility] Protein [Mass/Vol] 8.1 g/dL High 6.3 - 8.0 g/dL [facility] LIPID PANEL, NONFASTINGon Cholesterol [Mass/Vol] 181 mg/dL <200 mg/dL [facility] HDL Cholesterol, Nonfasting 43 mg/dL >39 mg/dL [facility] LDL Cholesterol, Nonfasting 113 mg/dL High <100 mg/dL [facility] LDL/HDL Ratio, Nonfasting 2.63 mg/dL High <2.54 mg/dL [facility] Non HDL Cholesterol, Nonfasting 138 mg/dL High <130 mg/dL [facility] Total Chol/HDL Ratio, Nonfasting 4.21 mg/dL <5.10 mg/dL [facility] Triglycerides, Nonfasting 125 mg/dL <150 mg/dL [facility] VLDL Cholesterol, Nonfasting 25 mg/dL <30 mg/dL [facility] MAGNESIUM BLDon 01-26-2024 Magnesium [Mass/Vol] 2.2 mg/dL 1.7 - 2 .3 mg/dL [facility] PHOSPHORUS INORGANICon 01-25 Phosphate [Mass/Vol] 3.8 mg/dL 2.7 - 4 .8 mg/dL [facility] US Kidney - bilateral and Ur inary bladderon 01-26-2024 [facility] VITAMIN D 25 HYDROXYon 01-25 25-hydroxyvitamin D3 [Mass/Vol] 36.6 ng/mL 31.0 - 80.0 ng/mL [facility] No Panel Informationon 09-07 Culture Urine >100,000 cfu/ml Multiple bacterial morphotypes present. Probable Contamination. Suggest recollection if clinically indicated. [facility] Work Phone: CBC panel Auto (Bld)on 03-18 Erythrocyte distribution width (RBC) [Ratio] 13.4 % Normal 11.5-15.0 [facility] Comment on above: Order Comment: Speci men Type: BLOOD SPECIMENOrdering Facility: [facility] Address: [address] [place] [address] [place] [address] Performed By: #### 5 8410-2 ####[facility] [id number] [place] [address] [place] Hematocrit (Bld) [Volume fraction] 29.5 % Low 39.0-51.0 [facility] Comment on above: Order Comment: Speci men Type: BLOOD SPECIMENOrdering Facility: [facility] Address: [address] [place] [address] Performed By: #### 5 8410-2 ####[facility] [id number] [place] [address] [place] Hemoglobin (Bld) [Mass/Vol] 9.6 g/dL Low 13.0-17.0 [facility] Comment on above: Order Comment: Speci men Type: BLOOD SPECIMENOrdering Facility: [facility] Address: [address] [place] [address] Performed By: #### 5 8410-2 ####[facility] [id number] [address] [place] MCH (RBC) [Entitic mass] 27.8 pg Normal 26.0-34.0 [facility] Comment on above: Order Comment: Speci men Type: BLOOD SPECIMENOrdering Facility: [facility] Address: [address] [place] [address] Performed By: #### 5 8410-2 ####[facility] [id number] [address] [place] MCHC (RBC) [Mass/Vol] 32.5 g/dL Normal 30.5-36.[address] [facility] Comment on above: Order Comment: Speci men Type: BLOOD SPECIMENOrdering Facility: [facility] Address: [address] [place] [address] Performed By: #### 5 8410-2 ####[facility] [id number] [id number] [address] [place] MCV (RBC) [Entitic vol] 85.5 fL Normal 80.0-100.0 [facility] Comment on above: Order Comment: Speci men Type: BLOOD SPECIMENOrdering Facility: [facility] Address: [address] [place], [place] [address] Performed By: #### 5 8410-2 ####[facility] [id number] [place] [address] [place] Nucleated RBC (Bld) [#/Vol] 10*3/uL Normal <0.01 [facility] Comment on above: Order Comment: Speci men Type: BLOOD SPECIMENOrdering Facility: [facility] Address: [address] [place], [place] [address] Performed By: #### 5 8410-2 ####[facility] [id number] [address] [place] Platelet mean volume (Bld) [Entitic vol] 9.5 fL Normal 9.0-12.7 [facility] Comment on above: Order Comment: Speci men Type: BLOOD SPECIMENOrdering Facility: [facility] Address: [address] [place], [place] [address] Performed By: #### 5 8410-2 ####[facility] [id number] [place] [address] [place] Platelets (Bld) [#/Vol] 278 10*3/uL Normal 150-400 [facility] Comment on above: Order Comment: Speci men Type: BLOOD SPECIMENOrdering Facility: [facility] Address: [address] [place], [place] [address] Performed By: #### 5 8410-2 ####[facility] [id number] [place] [address] [place] RBC (Bld) [#/Vol] 3.45 10*6/uL Low 4.20-6.00 [facility] Comment on above: Order Comment: Speci men Type: BLOOD SPECIMENOrdering Facility: [facility] Address: [address] [place], [place] [address] Performed By: #### 5 8410-2 ####[facility] [id number] [place] [address] [place] WBC (Bld) [#/Vol] 11.46 10*3/uL High 3.70-11.00 [facility] Comment on above: Order Comment: Speci men Type: BLOOD SPECIMENOrdering Facility: [facility] Address: [address] Performed By: #### 5 8410-2 ####[facility] [id number] [place] [address] [place] CONSULT PROGon 03-18-2023 CONSULT PROG Normal [facility] Comprehensive metabolic 2000 panelon 03-18-2023 Albumin [Mass/Vol] 3.9 g/dL Normal 3.9-4.9 [facility] Comment on above: Order Comment: Speci men Type: BLOOD SPECIMENOrdering Facility: [facility] Address: [address] [place], [place] [address] Performed By: #### 2 777-1, 16778-2, ####[facility] [id number] [place] [address] [place] ALP [Catalytic activity/Vol] 59 U/L Normal 38-113 [facility] Comment on above: Order Comment: Speci men Type: BLOOD SPECIMENOrdering Facility: [facility] Address: [address] Performed By: #### 2 777-1, 05694-3, ####[facility] [id number] [place] [address] [place] ALT [Catalytic activity/Vol] 28 U/L Normal 10-54 [facility] Comment on above: Order Comment: Speci men Type: BLOOD SPECIMENOrdering Facility: [facility] Address: [address] [place] [address] Performed By: #### 2 777-1, , ####[facility] [id number] [facility] [place] [address] [place] Anion gap [Moles/Vol] 14 mmol/L Normal 9-[address] [facility] Comment on above: Order Comment: Speci men Type: BLOOD SPECIMENOrdering Facility: [facility] Address: [address] [place] [address] Performed By: #### 2 777-1, , ####[facility] [id number] [place] [address] [place] AST [Catalytic activity/Vol] 19 U/L Normal 14-40 [facility] Comment on above: Order Comment: Speci men Type: BLOOD SPECIMENOrdering Facility: [facility] Address: [address] [place] [address] Result Comment: Resu lts may be falsely increased due to interference from hemolysis. Suggest reorder as clinically indicated. Performed By: #### 2 777-1, , ####[facility] [id number] [place] [address] [place] Bilirubin [Mass/Vol] 1.0 mg/dL Normal 0.2-1.3 [facility] Comment on above: Order Comment: Speci men Type: BLOOD SPECIMENOrdering Facility: [facility] Address: [address] [place] [address] Performed By: #### 2 777-1, , ####[facility] [id number] [place] [id number] [place] Calcium [Mass/Vol] 8.6 mg/dL Normal 8.5-10.2 [facility] Comment on above: Order Comment: Speci men Type: BLOOD SPECIMENOrdering Facility: [facility] Address: [address] Performed By: #### 2 777-1, , ####[facility] [id number] [place] [address] [place] Chloride [Moles/Vol] 99 mmol/L Normal 97-105 [facility] Comment on above: Order Comment: Speci men Type: BLOOD SPECIMENOrdering Facility: [facility] Address: [address] Performed By: #### 2 777-1, , ####[facility] [id number] [place] [address] [place] CO2 [Moles/Vol] 24 mmol/L Normal 22-30 [facility] Comment on above: Order Comment: Speci men Type: BLOOD SPECIMENOrdering Facility: [facility] Address: [address] Performed By: #### 2 777-1, , ####[facility] [id number] [place] [address] [place] Creatinine [Mass/Vol] 0.28 mg/dL Low 0.73-1.[address] [facility] Comment on above: Order Comment: Speci men Type: BLOOD SPECIMENOrdering Facility: [facility] Address: [address] [place] [address] Performed By: #### 2 777-1, , ####[facility] [id number] [place] [id number] [place] GFR/1.73 sq M.predicted among non-blacks MDRD (S/P/Bld) [Vol rate/Area] mL/min/{1.73_m2} Normal >=60 [facility] Comment on above: Order Comment: Frantz thurman Type: BLOOD SPECIMENOrdering Facility: [facility] Address: [address] [place] [address] Result Comment: Mary mated Glomerular Filtration Rate [...] actual GFR. Performed By: #### 2 777-1, 05603-0, ####[facility] [id number] [place] [address] [place] Glucose [Mass/Vol] 116 mg/dL High 74-99 [facility] Comment on above: Order Comment: Frantz thurman Type: BLOOD SPECIMENOrdering Facility: [facility] Address: [address] [place], [place] [address] Result Comment: The [place] [employer] (ADA) provides guidance for cutoff [...] Standards of Medical Care in Diabetes 2016, [place] [employer]. Diabetes Care. 2016.39(Suppl 1). Performed By: #### 2 777-1, 88308-9, ####[facility] [id number] [place] [address] [place] Potassium [Moles/Vol] 3.3 mmol/L Low 3.7-5.[address] [facility] Comment on above: Order Comment: Speci men Type: BLOOD SPECIMENOrdering Facility: [facility] Address: [address] [place] [address] Performed By: #### 2 777-1, , ####[facility] [id number] [place] [address] [place] Protein [Mass/Vol] 6.2 g/dL Low 6.3-8.0 [facility] Comment on above: Order Comment: Speci men Type: BLOOD SPECIMENOrdering Facility: [facility] Address: [address] [place] [address] Performed By: #### 2 777-1, , ####[facility] [id number] [place] [address] [place] Sodium [Moles/Vol] 137 mmol/L Normal 136-144 [facility] Comment on above: Order Comment: Speci men Type: BLOOD SPECIMENOrdering Facility: [facility] Address: [address] [place] [address] Performed By: #### 2 777-1, , ####[facility] [id number] [place] [address] [place] Urea nitrogen [Mass/Vol] 2 mg/dL Low 9-24 [facility] Comment on above: Order Comment: Speci men Type: BLOOD SPECIMENOrdering Facility: [facility] Address: [address] Performed By: #### 2 777-1, , ####[facility] [id number] [place] [id number] [place] Magnesium SerPl-mCncon 03-18 Magnesium [Mass/Vol] 2.1 mg/dL Normal 1.7-2.3 [facility] Comment on above: Order Comment: Speci men Type: BLOOD SPECIMENOrdering Facility: [facility] Address: [address] [place] [address] Performed By: #### 2 777-1, , ####[facility] [id number] [place] [address] [place] Phosphate SerPl-mCncon 03-18 Phosphate [Mass/Vol] 2.4 mg/dL Low 2.7-4.8 [facility] Comment on above: Order Comment: Speci men Type: BLOOD SPECIMENOrdering Facility: [facility] Address: [address] [place] [address] Performed By: #### 2 777-1, , ####[facility] [id number] [address] [place] THERAPY NTon 03-18-2023 THERAPY NT Normal [facility] Bilirub Conj SerPl-mCncon Bilirubin.conjugated [Mass/Vol] 0.5 mg/dL High <0.2 [facility] Comment on above: Order Comment: Speci men Type: BLOOD SPECIMENOrdering Facility: [facility] Address: [address] [place] [address] Result Comment: Resu lts may be falsely decreased due to interference from hemolysis. Suggest reorder as clinically indicated. Performed By: #### 2 777-1, 86764-9, , 42373-7 ####[facility] [id number] [place] [address] [place] CBC panel Auto (Bld)on 03-17 Erythrocyte distribution width (RBC) [Ratio] 13.3 % Normal 11.5-15.0 [facility] Comment on above: Order Comment: Speci men Type: BLOOD SPECIMENOrdering Facility: [facility] Address: [address] [place] [address] Performed By: #### 5 8410-2 ####[facility] [id number] [place] [address] [place] Hematocrit (Bld) [Volume fraction] 32.5 % Low 39.0-51.0 [facility] Comment on above: Order Comment: Speci men Type: BLOOD SPECIMENOrdering Facility: [facility] Address: [address] [place] [address] Performed By: #### 5 8410-2 ####[facility] [id number] [place] [address] [place] Hemoglobin (Bld) [Mass/Vol] 10.5 g/dL Low 13.0-17.0 [facility] Comment on above: Order Comment: Speci men Type: BLOOD SPECIMENOrdering Facility: [facility] Address: [address] [place] [address] Performed By: #### 5 8410-2 ####[facility] [id number] [address] MCH (RBC) [Entitic mass] 27.9 pg Normal 26.0-34.0 [facility] Comment on above: Order Comment: Speci men Type: BLOOD SPECIMENOrdering Facility: [facility] Address: [address] [place] [address] Performed By: #### 5 8410-2 ####[facility] [id number] [address] [place] MCHC (RBC) [Mass/Vol] 32.3 g/dL Normal 30.5-36.[address] [facility] Comment on above: Order Comment: Speci men Type: BLOOD SPECIMENOrdering Facility: [facility] Address: [address] [place] [address] Performed By: #### 5 8410-2 ####[facility] [id number] [address] [facility] MCV (RBC) [Entitic vol] 86.4 fL Normal 80.0-100.0 [facility] Comment on above: Order Comment: Speci men Type: BLOOD SPECIMENOrdering Facility: [facility] Address: [address] [place], [place] [id number] Performed By: #### 5 8410-2 ####[facility] [id number] [place] [address] [place] Nucleated RBC (Bld) [#/Vol] 10*3/uL Normal <0.01 [facility] Comment on above: Order Comment: Speci men Type: BLOOD SPECIMENOrdering Facility: [facility] Address: [address] [place], [place] [id number] Performed By: #### 5 8410-2 ####[facility] [id number] [address] [place] Platelet mean volume (Bld) [Entitic vol] 9.9 fL Normal 9.0-12.7 [facility] Comment on above: Order Comment: Speci men Type: BLOOD SPECIMENOrdering Facility: [facility] Address: [address] [place], [place] [address] Performed By: #### 5 8410-2 ####[facility] LABIA [id number] [place] [address] [place] Platelets (Bld) [#/Vol] 123 10*3/uL Low 150-400 [facility] Comment on above: Order Comment: Speci men Type: BLOOD SPECIMENOrdering Facility: [facility] Address: [address] [place], [place] [address] Performed By: #### 5 8410-2 ####[facility] LABCLIA [id number] [place] [address] [place] RBC (Bld) [#/Vol] 3.76 10*6/uL Low 4.20-6.00 [facility] Comment on above: Order Comment: Speci men Type: BLOOD SPECIMENOrdering Facility: [facility] Address: [address] [place], [place] [address] Performed By: #### 5 8410-2 ####[facility] LABCLIA [id number] [place] [address] [place] WBC (Bld) [#/Vol] 11.91 10*3/uL High 3.70-11.00 [facility] Comment on above: Order Comment: Speci men Type: BLOOD SPECIMENOrdering Facility: [facility] Address: [address] [place], [place] [address] Performed By: #### 5 8410-2 ####[facility] LABCL[facility] [id number] [place] [address] [place] CONSULTon 03-17-2023 CONSULT Normal [facility] CONSULT PROGon 03-17-2023 CONSULT PROG Normal [facility] Comprehensive metabolic 2000 panelon 03-17-2023 Albumin [Mass/Vol] 4.0 g/dL Normal 3.9-4.9 [facility] Comment on above: Order Comment: Speci men Type: BLOOD SPECIMENOrdering Facility: [facility] Address: [address] [place], [place] [address] Performed By: #### 2 777-1, 73876-5, 84822-9, 43674-2 ####[facility] LABCLIA [id number] [place] [address] [place] ALP [Catalytic activity/Vol] 60 U/L Normal 38-113 [facility] Comment on above: Order Comment: Speci men Type: BLOOD SPECIMENOrdering Facility: [facility] Address: [address] [place], [place] [address] Performed By: #### 2 777-1, 72635-1, 43873-4, 24383-1 ####[facility] LABCLIA [id number] [place] [address] [place] ALT [Catalytic activity/Vol] 32 U/L Normal 10-54 [facility] Comment on above: Order Comment: Speci men Type: BLOOD SPECIMENOrdering Facility: [facility] Address: [address] [address] Result Comment: Resu lts may be falsely increased due to interference from hemolysis. Suggest reorder as clinically indicated. Performed By: #### 2 777-1, 76725-3, 12723-1, 11906-4 ####[facility] LABCLIA [id number] [address] [place] Anion gap [Moles/Vol] 18 mmol/L Normal 9-[address] [facility] Comment on above: Order Comment: Speci men Type: BLOOD SPECIMENOrdering Facility: [facility] Address: [address] [place] [address] Performed By: #### 2 777-1, 97034-6, , 74758-0 ####[facility] LABCLIA [id number] [address] [place] AST [Catalytic activity/Vol] 35 U/L Normal 14-40 [facility] Comment on above: Order Comment: Speci men Type: BLOOD SPECIMENOrdering Facility: [facility] Address: [address] [place] [address] Result Comment: Resu lts may be falsely increased due to interference from hemolysis. Suggest reorder as clinically indicated. Performed By: #### 2 777-1, 32056-5, , 97403-0 ####[facility] LABCLIA [id number] [place] [address] [place] Bilirubin [Mass/Vol] 1.7 mg/dL High 0.2-1.3 [facility] Comment on above: Order Comment: Speci men Type: BLOOD SPECIMENOrdering Facility: [facility] Address: [address] [place] [address] Performed By: #### 2 777-1, 67003-9, 92408-0, 03199-4 ####[facility] LABCLIA [id number] [address] [address] [place] Calcium [Mass/Vol] 8.8 mg/dL Normal 8.5-10.2 [facility] Comment on above: Order Comment: Speci men Type: BLOOD SPECIMENOrdering Facility: [facility] Address: [address] [place], [place] [address] Performed By: #### 2 777-1, 68322-2, 71452-3, 23789-7 ####[facility] LABCLIA [id number] [place] [address] [place] Chloride [Moles/Vol] 103 mmol/L Normal 97-105 [facility] Comment on above: Order Comment: Speci men Type: BLOOD SPECIMENOrdering Facility: [facility] Address: [address] [place] [address] Performed By: #### 2 777-1, 30694-7, 35075-7, 33819-3 ####[facility] [id number] [place] [address] [place] CO2 [Moles/Vol] 17 mmol/L Low 22-30 [facility] Comment on above: Order Comment: Speci men Type: BLOOD SPECIMENOrdering Facility: [facility] Address: [address] [place] [address] Performed By: #### 2 777-1, 24781-5, 91423-2, 47663-9 ####[facility] [id number] [place] [address] [place] Creatinine [Mass/Vol] 0.35 mg/dL Low 0.73-1.[address] [facility] Comment on above: Order Comment: Speci men Type: BLOOD SPECIMENOrdering Facility: [facility] Address: [address] [place], [place] [address] Performed By: #### 2 777-1, 26281-2, 22907-1, 98898-0 ####[facility] [id number] [address] [address] [place] GFR/1.73 sq M.predicted among non-blacks MDRD (S/P/Bld) [Vol rate/Area] mL/min/{1.73_m2} Normal >=60 [facility] Comment on above: Order Comment: Frantz thurman Type: BLOOD SPECIMENOrdering Facility: [facility] Address: [address] [place] [address] Result Comment: Mary mated Glomerular Filtration Rate [...] actual GFR. Performed By: #### 2 777-1, 81784-2, 05572-3, 77548-3 ####[facility] [id number] [address] [address] [place] Glucose [Mass/Vol] 71 mg/dL Low 74-99 [facility] Comment on above: Order Comment: Frantz thurman Type: BLOOD SPECIMENOrdering Facility: [facility] Address: [address] [place] [address] Result Comment: The [place] [employer] (ADA) provides guidance for cutoff [...] Standards of Medical Care in Diabetes 2016, [place] [employer]. Diabetes Care. 2016.39(Suppl 1). Performed By: #### 2 777-1, 79521-4, 10696-4, 16048-9 ####[facility] LABCLIA [id number] [address] [address] [place] Potassium [Moles/Vol] 4.2 mmol/L Normal 3.7-5.[address] [facility] Comment on above: Order Comment: Speci men Type: BLOOD SPECIMENOrdering Facility: [facility] Address: [address] [id number] Performed By: #### 2 777-1, 43244-5, , 97554-0 ####[facility] [id number] [place] [address] [place] Protein [Mass/Vol] 6.5 g/dL Normal 6.3-8.0 [facility] Comment on above: Order Comment: Speci men Type: BLOOD SPECIMENOrdering Facility: [facility] Address: [address] [place], [place] [address] Performed By: #### 2 777-1, 24048-6, , 91422-2 ####[facility] [id number] [place] [address] [place] Sodium [Moles/Vol] 138 mmol/L Normal 136-144 [facility] Comment on above: Order Comment: Speci men Type: BLOOD SPECIMENOrdering Facility: [facility] Address: [address] [phone] Performed By: #### 2 777-1, 39541-6, , 32613-0 ####[facility] [id number] [place] [address] [place] Urea nitrogen [Mass/Vol] 4 mg/dL Low 9-24 [facility] Comment on above: Order Comment: Speci men Type: BLOOD SPECIMENOrdering Facility: [facility] Address: [address] [place] [address] Performed By: #### 2 777-1, 83013-9, 34765-6, 41663-9 ####[facility] [id number] [address] [place] Gas and Carbon monoxide pane l (BldV)on 03-17-2023 BASE DEFICIT, VENOUS -5 mmol/L Low -2-0 [facility] Comment on above: Order Comment: Speci men Type: VENOUS BLOOD SPECIMENOrdering Facility: [facility] Address: [address] [place] [address] Performed By: #### 2 4344-4 ####[facility] [id number] [address] [place] Body temperature 98.6 [degF] Normal [facility] Comment on above: Order Comment: Speci men Type: VENOUS BLOOD SPECIMENOrdering Facility: [facility] Address: [address] [place] [address] Performed By: #### 2 4344-4 ####[facility] [id number] [address] [place] Calcium.ionized (Bld) [Mass/Vol] 1.18 mmol/L Normal 1.08-1.30 [facility] Comment on above: Order Comment: Speci men Type: VENOUS BLOOD SPECIMENOrdering Facility: [facility] Address: [address] [place] [address] Performed By: #### 2 4344-4 ####[facility] [id number] [address] [place] Calcium.ionized adjusted to pH 7.4 (BldA) [Moles/Vol] 1.18 mmol/L Normal 1.08-1.30 [facility] Comment on above: Order Comment: Speci men Type: VENOUS BLOOD SPECIMENOrdering Facility: [facility] Address: [address] Performed By: #### 2 4344-4 ####[facility]CL[facility] [id number] [address] [place] Carboxyhemoglobin (BldV) [Mass fraction] 1.3 % Normal 0.0-2.0 [facility] Comment on above: Order Comment: Speci men Type: VENOUS BLOOD SPECIMENOrdering Facility: [facility] Address: [address] Result Comment: Carb oxyhemoglobin Reference Range for Smokers: 2.0-8.0% Performed By: #### 2 4344-4 ####[facility] [id number] [address] [place] CO2 (BldV) [Partial pressure] 30 mm[Hg] Low 42-55 [facility] Comment on above: Order Comment: Speci men Type: VENOUS BLOOD SPECIMENOrdering Facility: [facility] Address: [address] Performed By: #### 2 4344-4 ####[facility] [id number] [place] [address] [place] CO2 [Moles/Vol] 19 mmol/L Low 25-29 [facility] Comment on above: Order Comment: Speci men Type: VENOUS BLOOD SPECIMENOrdering Facility: [facility] Address: [address] Performed By: #### 2 4344-4 ####[facility] [id number] [place] [address] [place] Glucose [Mass/Vol] 75 mg/dL Normal 60-105 [facility] Comment on above: Order Comment: Speci men Type: VENOUS BLOOD SPECIMENOrdering Facility: [facility] Address: [address] Performed By: #### 2 4344-4 ####[facility]CL[facility] [id number] [place] [address] [place] HCO3 (Bld) [Moles/Vol] 19 mmol/L Low 24-28 [facility] Comment on above: Order Comment: Speci men Type: VENOUS BLOOD SPECIMENOrdering Facility: [facility] Address: [address] [place] [address] Performed By: #### 2 4344-4 ####[facility] [id number] [place] [address] [place] Hematocrit (Bld) [Volume fraction] 30.5 % Low 39.0-51.0 [facility] Comment on above: Order Comment: Speci men Type: VENOUS BLOOD SPECIMENOrdering Facility: [facility] Address: [address] [place] [address] Performed By: #### 2 4344-4 ####[facility] [id number] [place] [address] [place] Hemoglobin (Bld) [Mass/Vol] 9.9 g/dL Low 13.0-17.0 [facility] Comment on above: Order Comment: Speci men Type: VENOUS BLOOD SPECIMENOrdering Facility: [facility] Address: [address] [place], [place] [address] Performed By: #### 2 4344-4 ####[facility] [id number] [place] [address] [place] Lactate [Moles/Vol] 0.7 mmol/L Normal 0.5-2.2 [facility] Comment on above: Order Comment: Speci men Type: VENOUS BLOOD SPECIMENOrdering Facility: [facility] Address: [address] [place], [place] [address] Performed By: #### 2 4344-4 ####[facility] [id number] [place] [address] [place] Methemoglobin (Bld) [Mass fraction] 0.9 % Normal 0.0-1.5 [facility] Comment on above: Order Comment: Speci men Type: VENOUS BLOOD SPECIMENOrdering Facility: [facility] Address: [address] [place] [address] Performed By: #### 2 4344-4 ####[facility]CL[facility] [id number] [place] [address] [place] O2 THERAPY RA=Room Air Normal [facility] Comment on above: Order Comment: Speci men Type: VENOUS BLOOD SPECIMENOrdering Facility: [facility] Address: [address] Performed By: #### 2 4344-4 ####[facility]CL[facility] [id number] [place] [address] [place] Oxygen (BldV) [Partial pressure] 64 mm[Hg] High 35-45 [facility] Comment on above: Order Comment: Speci men Type: VENOUS BLOOD SPECIMENOrdering Facility: [facility] Address: [address] [place] [address] Performed By: #### 2 4344-4 ####[facility]CL[facility] [id number] [place] [address] [place] Oxygen saturation in Venous blood 93 % High 60-85 [facility] Comment on above: Order Comment: Speci men Type: VENOUS BLOOD SPECIMENOrdering Facility: [facility] Address: [address] [id number] Performed By: #### 2 4344-4 ####[facility]CL[facility] [id number] [place] [address] [place] Oxyhemoglobin (BldV) [Mass fraction] 91 % High 60-85 [facility] Comment on above: Order Comment: Speci men Type: VENOUS BLOOD SPECIMENOrdering Facility: [facility] Address: [address] [place] [address] Performed By: #### 2 4344-4 ####[facility]CL[facility] [id number] [place] [address] [place] pH (BldV) 7.40 [pH] Normal 7.32-7.42 [facility] Comment on above: Order Comment: Speci men Type: VENOUS BLOOD SPECIMENOrdering Facility: [facility] Address: [address] [place] [address] Performed By: #### 2 4344-4 ####[facility] [id number] [place] [address] [place] Potassium [Moles/Vol] 3.4 mmol/L Low 3.5-5.[address] [facility] Comment on above: Order Comment: Speci men Type: VENOUS BLOOD SPECIMENOrdering Facility: [facility] Address: [address] [place] [address] Performed By: #### 2 4344-4 ####[facility] [id number] [place] [address] [place] Sodium [Moles/Vol] 141 mmol/L Normal 136-144 [facility] Comment on above: Order Comment: Speci men Type: VENOUS BLOOD SPECIMENOrdering Facility: [facility] Address: [address] [place] [address] Performed By: #### 2 4344-4 ####[facility] [id number] [place] [address] [place] [facility] 03-17 Magnesium [Mass/Vol] 1.9 mg/dL Normal 1.7-2.3 [facility] Comment on above: Order Comment: Speci men Type: BLOOD SPECIMENOrdering Facility: [facility] Address: [address] [place] [address] Performed By: #### 2 777-1, 77504-6, 14933-8, 17419-4 ####[facility]CL[facility] [id number] [place] [address] [place] NUTRITIONon 03-17-2023 NUTRITION Normal [facility] bilirubin panel [Ma ss/Vol]on 03-17-2023 Bilirubin [Mass/Vol] 1.4 mg/dL High 0.2-1.3 [facility] Comment on above: Order Comment: Speci men Type: BLOOD SPECIMENOrdering Facility: [facility] Address: [address] [place] [address] Performed By: #### 5 0189-0 ####[facility] [id number] [address] STATES OF [facility] Bilirubin.conjugated [Mass/Vol] 0.8 mg/dL High <0.2 [facility] Comment on above: Order Comment: Speci men Type: BLOOD SPECIMENOrdering Facility: [facility] Address: [address] [place] [address] Performed By: #### 5 0189-0 ####[facility] [id number] [address] [place] Bilirubin.indirect [Mass/Vol] 0.6 mg/dL Normal <1.4 [facility] Comment on above: Order Comment: Speci men Type: BLOOD SPECIMENOrdering Facility: [facility] Address: [address] [place] [address] Performed By: #### 5 0189-0 ####[facility] [id number] [address] [place] PT panel Coag (PPP)on 2022 INR Coag (PPP) [Relative time] 1.0 {INR} Normal 0.9-1.3 [facility] Comment on above: Order Comment: Speci men Type: BLOOD SPECIMENOrdering Facility: [facility] Address: [address] [place] [address] Result Comment: Gale min K Antagonist (VKA) Therapeutic Range: INR 2 to 3 (Target INR of 2.5)Note: For patients treated with VKA drugs, such as warfarin, the [place] [employer] 2012 Guideline recommends [...] al. Chest 2012, 141:7S-47SNishimura RA, et al. [facility] 2017, 70: 252-289 Performed By: #### 1 4979-9, 14082-8 ####[facility] [id number] [address] [place] PT Coag (PPP) [Time] 10.6 s Normal 9.7-13.0 [facility] Comment on above: Order Comment: Speci men Type: BLOOD SPECIMENOrdering Facility: [facility] Address: [address] [place] [address] Performed By: #### 1 4979-9, 71565-3 ####[facility] [id number] [address] [place] Phosphate SerPl-mCncon 03-17 Phosphate [Mass/Vol] 2.7 mg/dL Normal 2.7-4.8 [facility] Comment on above: Order Comment: Speci men Type: BLOOD SPECIMENOrdering Facility: [facility] Address: [place] [address] Performed By: #### 2 777-1, 84445-6, 40150-2, 63532-8 ####[facility] [id number] [place] [address] [place] THERAPY NTon 03-17-2023 THERAPY NT Normal [facility] URINALYSIS, REFLEX MICROSCOP ICon 03-17-2023 Bilirubin Ql (U) Negative Normal Negative [facility] Comment on above: Order Comment: Speci men Type: URINE SPECIMENOrdering Facility: [facility] Address: [address] [address] Performed By: #### L [id number] ####[facility] [id number] [address] Clarity (Unsp spec) Turbid Abnormal Clear [facility] Comment on above: Order Comment: Speci men Type: URINE SPECIMENOrdering Facility: [facility] Address: [address] [place] [address] Performed By: #### L [id number] ####[facility] [id number] [address] STATES OF [facility] Color (U) Yellow Normal Yellow [facility] Comment on above: Order Comment: Speci men Type: URINE SPECIMENOrdering Facility: [facility] Address: [address] [place] [address] Performed By: #### L [id number] ####[facility] [id number] [place] [address] [place] Glucose Test strip (U) [Mass/Vol] Trace Normal Trace, Negative [facility] Comment on above: Order Comment: Speci men Type: URINE SPECIMENOrdering Facility: [facility] Address: [address] [address] Performed By: #### L [id number] ####[facility] [id number] [place] [address] [place] Hemoglobin Ql (U) Negative Normal Negative, Trace [facility] Comment on above: Order Comment: Speci men Type: URINE SPECIMENOrdering Facility: [facility] Address: [address] [place] [address] Performed By: #### L [id number] ####[facility] [id number] [address] Ketones Ql (U) 1+ Abnormal Trace, Negative [facility] Comment on above: Order Comment: Speci men Type: URINE SPECIMENOrdering Facility: [facility] Address: [address] [place] [address] Performed By: #### L [id number] ####[facility] [id number] [address] [place] Leukocyte esterase Test strip Ql (U) Negative Normal Negative, 25 Patt/uL [facility] Comment on above: Order Comment: Speci men Type: URINE SPECIMENOrdering Facility: [facility] Address: [address] [place] [address] Performed By: #### L [id number] ####[facility] [id number] [address] STATES OF [facility] Nitrite Ql (U) Negative Normal Negative [facility] Comment on above: Order Comment: Speci men Type: URINE SPECIMENOrdering Facility: [facility] Address: [address] [place] [address] Performed By: #### L [id number] ####[facility] [id number] [place] [address] [place] pH (U) 5.5 [pH] Normal 5.0-8.0 [facility] Comment on above: Order Comment: Speci men Type: URINE SPECIMENOrdering Facility: [facility] Address: [address] [place] [address] Performed By: #### L [id number] ####[facility] [id number] [address] STATES [facility] Protein (U) [Mass/Vol] Negative Normal Trace , Negative [facility] Comment on above: Order Comment: Speci men Type: URINE SPECIMENOrdering Facility: [facility] Address: [address] [address] Performed By: #### L [id number] ####[facility] [id number] [address] [place] Specific gravity (U) [Rel density] 1.033 High 1.005-1.030 [facility] Comment on above: Order Comment: Speci men Type: URINE SPECIMENOrdering Facility: [facility] Address: [address] [place] [address] Performed By: #### L [id number] ####[facility] [id number] [place] [address] [place] Urobilinogen Ql (U) Negative Normal Negative [facility] Comment on above: Order Comment: Speci men Type: URINE SPECIMENOrdering Facility: [facility] Address: [address] [place] [address] Performed By: #### L [id number] ####[facility] [id number] [place] [address] [place] aPTT PPPon 03-17-2023 aPTT Coag (PPP) [Time] 26.8 s Normal 23.0-32.4 [facility] Comment on above: Order Comment: Speci men Type: BLOOD SPECIMENOrdering Facility: [facility] Address: [address] [place] [address] Performed By: #### 1 4979-9, 41390-1 ####[facility] [id number] [place] [address] [place] ALLIED HEALTHon 03-16-2023 ALLIED HEALTH Normal [facility] CASE MGT INIT ASSESon 2022 CASE MGT INIT ASSES Normal [facility] CBC panel Auto (Bld)on 03-16 Erythrocyte distribution width (RBC) [Ratio] 13.2 % Normal 11.5-15.0 [facility] Comment on above: Order Comment: Speci men Type: BLOOD SPECIMENOrdering Facility: [facility] Address: [address] [place] [address] Performed By: #### 5 8410-2 ####[facility] [id number] [place] [address] [place] Hematocrit (Bld) [Volume fraction] 26.4 % Low 39.0-51.0 [facility] Comment on above: Order Comment: Speci men Type: BLOOD SPECIMENOrdering Facility: [facility] Address: [address] [place] [address] Performed By: #### 5 8410-2 ####[facility] [id number] [address] [place] Hemoglobin (Bld) [Mass/Vol] 9.0 g/dL Low 13.0-17.0 [facility] Comment on above: Order Comment: Speci men Type: BLOOD SPECIMENOrdering Facility: [facility] Address: [address] [place] [address] Performed By: #### 5 8410-2 ####[facility] [id number] [address] [place] MCH (RBC) [Entitic mass] 28.7 pg Normal 26.0-34.0 [facility] Comment on above: Order Comment: Speci men Type: BLOOD SPECIMENOrdering Facility: [facility] Address: [address] [address] Performed By: #### 5 8410-2 ####[facility] [id number] [address] [place] MCHC (RBC) [Mass/Vol] 34.1 g/dL Normal 30.5-36.[address] [facility] Comment on above: Order Comment: Speci men Type: BLOOD SPECIMENOrdering Facility: [facility] Address: [address] [place] [address] Performed By: #### 5 8410-2 ####[facility] [id number] [address] [place] MCV (RBC) [Entitic vol] 84.1 fL Normal 80.0-100.0 C [facility] Comment on above: Order Comment: Speci men Type: BLOOD SPECIMENOrdering Facility: [facility] Address: [address] Performed By: #### 5 8410-2 ####[facility] [id number] [place] [address] [place] Nucleated RBC (Bld) [#/Vol] 10*3/uL Normal <0.01 [facility] Comment on above: Order Comment: Speci men Type: BLOOD SPECIMENOrdering Facility: [facility] Address: [address] Performed By: #### 5 8410-2 ####[facility] [id number] [place] [address] [place] Platelet mean volume (Bld) [Entitic vol] 9.5 fL Normal 9.0-12.7 [facility] Comment on above: Order Comment: Speci men Type: BLOOD SPECIMENOrdering Facility: [facility] Address: [address] [place] [address] Performed By: #### 5 8410-2 ####[facility] [id number] [place] [address] [place] Platelets (Bld) [#/Vol] 168 10*3/uL Normal 150-400 [facility] Comment on above: Order Comment: Speci men Type: BLOOD SPECIMENOrdering Facility: [facility] Address: [address] Performed By: #### 5 8410-2 ####[facility] [id number] [place] [address] [place] RBC (Bld) [#/Vol] 3.14 10*6/uL Low 4.20-6.00 [facility] Comment on above: Order Comment: Speci men Type: BLOOD SPECIMENOrdering Facility: [facility] Address: [address] [place] [address] Performed By: #### 5 8410-2 ####[facility] [id number] [place] [address] [place] WBC (Bld) [#/Vol] 10.32 10*3/uL Normal 3.70-11.00 [facility] Comment on above: Order Comment: Speci men Type: BLOOD SPECIMENOrdering Facility: [facility] Address: [address] [place] [address] Performed By: #### 5 8410-2 ####[facility] [id number] [place] [address] [place] CONSULT PROGon 03-16-2023 CONSULT PROG Normal [facility] CYSTATIN Con 03-16-2023 Cystatin C [Mass/Vol] 0.54 mg/L Low 0.61-0.[address] [facility] Comment on above: Order Comment: Speci men Type: BLOOD SPECIMENOrdering Facility: [facility] Address: [address] [place] [address] Performed By: #### C YSTC ####[facility] [id number] [place] [address] [place] CYSTATIN C EGFR 146 mL/min/1.73m??? Normal >=60 [facility] Comment on above: Order Comment: Speci men Type: BLOOD SPECIMENOrdering Facility: [facility] Address: [address] [place] [address] Result Comment: Mary mated Glomerular Filtration Rate (eGFR) is calculated using the 2012 CKD-EPI cystatin C equation. This equation utilizes serum cystatin C, sex, and age as parameters. The cystatin C assay has traceable calibration to the ERM-DA471/[facility] reference material. Refer to KDIGO guidelines for clinical interpretation. In patients with unstable renal function, e.g. those with acute kidney injury, the eGFR may not accurately reflect actual GFR. Performed By: #### C YSTC ####[facility] [id number] [place] [address] [place] Comprehensive metabolic 2000 panelon 03-16-2023 Albumin [Mass/Vol] 4.0 g/dL Normal 3.9-4.9 [facility] Comment on above: Order Comment: Speci men Type: BLOOD SPECIMENOrdering Facility: [facility] Address: [address] [place] [address] Performed By: #### 1 9123-9, 277-, HSTNT, ####[facility] [id number] [place] [address] [place] ALP [Catalytic activity/Vol] 34 U/L Low 38-113 [facility] Comment on above: Order Comment: Speci men Type: BLOOD SPECIMENOrdering Facility: [facility] Address: [address] [place] [address] Performed By: #### 1 9123-9, 27704-22, HSTNT, ####[facility] [id number] [place] [address] [place] ALT [Catalytic activity/Vol] 32 U/L Normal 10-54 [facility] Comment on above: Order Comment: Speci men Type: BLOOD SPECIMENOrdering Facility: [facility] Address: [address] [place] [address] Performed By: #### 1 9123-9, 277-, HSTNT, ####[facility] [id number] [place] [id number] [place] Anion gap [Moles/Vol] 12 mmol/L Normal 9-[address] [facility] Comment on above: Order Comment: Speci men Type: BLOOD SPECIMENOrdering Facility: [facility] Address: [address] [place] [address] Performed By: #### 1 9123-9, 27704-22, HSTNT, ####[facility] [id number] [place] [address] [place] AST [Catalytic activity/Vol] 42 U/L High 14-40 [facility] Comment on above: Order Comment: Speci men Type: BLOOD SPECIMENOrdering Facility: [facility] Address: [address] Performed By: #### 1 9123-9, 27704-22, HSTNT, ####[facility] [id number] [place] [address] [place] Bilirubin [Mass/Vol] 1.4 mg/dL High 0.2-1.3 [facility] Comment on above: Order Comment: Speci men Type: BLOOD SPECIMENOrdering Facility: [facility] Address: [address] Performed By: #### 1 9123-9, 2776-10, HSTNT, ####[facility] [id number] [place] [address] [place] Calcium [Mass/Vol] 8.4 mg/dL Low 8.5-10.2 [facility] Comment on above: Order Comment: Speci men Type: BLOOD SPECIMENOrdering Facility: [facility] Address: [address] [place] [address] Performed By: #### 1 9123-9, 27704-22, HSTNT, ####[facility] [id number] [place] [id number] [place] Chloride [Moles/Vol] 106 mmol/L High 97-105 [facility] Comment on above: Order Comment: Speci men Type: BLOOD SPECIMENOrdering Facility: [facility] Address: [address] [place] [address] Performed By: #### 1 9123-9, 277-, HSTNT, ####[facility] [id number] [place] [address] [place] CO2 [Moles/Vol] 25 mmol/L Normal 22-30 [facility] Comment on above: Order Comment: Speci men Type: BLOOD SPECIMENOrdering Facility: [facility] Address: [address] [place] [address] Performed By: #### 1 9123-9, 277-, HSTNT, ####[facility] [id number] [place] [address] [place] Creatinine [Mass/Vol] 0.28 mg/dL Low 0.73-1.[address] [facility] Comment on above: Order Comment: Speci men Type: BLOOD SPECIMENOrdering Facility: [facility] Address: [address] [place] [address] Performed By: #### 1 9123-9, 27704-22, HSTNT, ####[facility] [id number] [place] [address] [place] GFR/1.73 sq M.predicted among non-blacks MDRD (S/P/Bld) [Vol rate/Area] mL/min/{1.73_m2} Normal >=60 [facility] Comment on above: Order Comment: Speci men Type: BLOOD SPECIMENOrdering Facility: [facility] Address: [address] [place] [address] Result Comment: Mary mated Glomerular Filtration Rate [...] reflect actual GFR. Performed By: #### 1 9122-9, 2776-10, HSTNT, ####[facility] [id number] [address] [address] [place] Glucose [Mass/Vol] 97 mg/dL Normal 74-99 [facility] Comment on above: Order Comment: Frantz thurman Type: BLOOD SPECIMENOrdering Facility: [facility] Address: [address] [place] [address] Result Comment: The [place] [employer] (ADA) provides guidance for cutoff [...] Standards of Medical Care in Diabetes 2016, [place] [employer]. Diabetes Care. 2016.39(Suppl 1). Performed By: #### 1 23-9, 2776-10, HSTNT, ####[facility] [id number] [address] [address] [place] Potassium [Moles/Vol] 3.6 mmol/L Low 3.7-5.[address] [facility] Comment on above: Order Comment: Frantz thurman Type: BLOOD SPECIMENOrdering Facility: [facility] Address: [address] [place] [address] Performed By: #### 1 9122-9, 2776-10, HSTNT, ####[facility] [id number] [address] [address] [place] Protein [Mass/Vol] 5.6 g/dL Low 6.3-8.0 [facility] Comment on above: Order Comment: Speci men Type: BLOOD SPECIMENOrdering Facility: [facility] Address: [address] [place] [address] Performed By: #### 1 9123-9, 2777-1, HSTNT, 93769-8 ####[facility] [id number] [place] [address] [place] Sodium [Moles/Vol] 143 mmol/L Normal 136-144 [facility] Comment on above: Order Comment: Speci men Type: BLOOD SPECIMENOrdering Facility: [facility] Address: [address] [place] [address] Performed By: #### 1 9123-9, 2777-1, HSTNT, 28551-8 ####[facility] [id number] [place] [address] [place] Urea nitrogen [Mass/Vol] 2 mg/dL Low 9-24 [facility] Comment on above: Order Comment: Speci men Type: BLOOD SPECIMENOrdering Facility: [facility] Address: [address] [place] [address] Performed By: #### 1 9123-9, 2777-1, HSTNT, 95511-1 ####[facility] [id number] [place] [address] [place] HIGH SENSITIVITY TROPONIN To n 03-16-2023 HIGH SENSITIVITY OMAR 10 ng/L Normal <12 [facility] Comment on above: Order Comment: Speci men Type: BLOOD SPECIMENOrdering Facility: [facility] Address: [address] [place] [address] Result Comment: When assessing risk for acute [...] Performed By: #### 1 9123-9, 2777-1, HSTNT, 76398-4 ####[facility] [id number] [place] [address] [place] Magnesium SerPl-mCncon 03-16 Magnesium [Mass/Vol] 1.9 mg/dL Normal 1.7-2.3 [facility] Comment on above: Order Comment: Frantz thurman Type: BLOOD SPECIMENOrdering Facility: [facility] Address: [address] [place], [place] [address] Performed By: #### 1 9123-9, 2777-1, HSTNT, ####[facility] [id number] [address] [place] PT EDon 03-16-2023 PT ED Normal [facility] PT panel Coag (PPP)on 2022 INR Coag (PPP) [Relative time] 1.3 {INR} Normal 0.9-1.3 [facility] Comment on above: Order Comment: Frantz thurman Type: BLOOD SPECIMENOrdering Facility: [facility] Address: [address] [place] [address] Result Comment: Gale min K Antagonist (VKA) Therapeutic Range: INR 2 to 3 (Target INR of 2.5)Note: For patients treated with VKA drugs, such as warfarin, the [place] [employer] 2012 Guideline recommends [...] 2.5 to 3.5 (target INR of 3).Grayson COX, et al. Chest 2012, 141:7S-47SUriel RA, et al. [facility] 2017, 70: 252-289 Performed By: #### 3 4528-0, 51028-3 ####[facility] [id number] [place] [address] [place] PT Coag (PPP) [Time] 13.3 s High 9.7-13.0 [facility] Comment on above: Order Comment: Speci men Type: BLOOD SPECIMENOrdering Facility: [facility] Address: [address] [place] [address] Performed By: #### 3 4528-0, 75745-2 ####[facility] [id number] [place] [address] [place] Phosphate SerPl-mCncon 03-16 Phosphate [Mass/Vol] 2.0 mg/dL Low 2.7-4.8 [facility] Comment on above: Order Comment: Speci men Type: BLOOD SPECIMENOrdering Facility: [facility] Address: [address] [place] [address] Performed By: #### 1 9123-9, 2777-1, HSTNT, 54137-9 ####[facility] [id number] [place] [address] [place] THERAPY NTon 03-16-2023 THERAPY NT Normal [facility] XR CHEST 1V FRONTAL PORTon 0 03-16-2023 XR CHEST 1V FRONTAL PORT Normal [facility] aPTT PPPon 03-16-2023 aPTT Coag (PPP) [Time] 44.0 s High 23.0-32.4 [facility] Comment on above: Order Comment: Speci men Type: BLOOD SPECIMENOrdering Facility: [facility] Address: [address] [place] [address] Performed By: #### 3 4528-0, 00301-3 ####[facility] [id number] [place] [address] [place] ALLIED HEALTHon 03-15-2023 ALLIED HEALTH Normal [facility] ARTERIAL BLOOD GASESon 03-15 Base excess Calc (Bld) [Moles/Vol] 3 mmol/L High 0-2 [facility] Comment on above: Order Comment: Speci men Type: ARTERIAL BLOOD SPECIMENOrdering Facility: [facility] Address: [address] [place], [place] [address] Performed By: #### A LLBG ####[facility] [id number] [address] [place] Body temperature 98.6 [degF] Normal [facility] Comment on above: Order Comment: Speci men Type: ARTERIAL BLOOD SPECIMENOrdering Facility: [facility] Address: [address] [place], [place] [address] Performed By: #### A LLBG ####[facility] [id number] [address] [place] Calcium.ionized (Bld) [Mass/Vol] 1.14 mmol/L Normal 1.08-1.30 [facility] Comment on above: Order Comment: Speci men Type: ARTERIAL BLOOD SPECIMENOrdering Facility: [facility] Address: [address] [place], [place] [address] Performed By: #### A LLBG ####[facility] [id number] [address] [place] Calcium.ionized adjusted to pH 7.4 (BldA) [Moles/Vol] 1.16 mmol/L Normal 1.08-1.30 [facility] Comment on above: Order Comment: Speci men Type: ARTERIAL BLOOD SPECIMENOrdering Facility: [facility] Address: [address] [place], [place] [address] Performed By: #### A LLBG ####[facility] [id number] [place] [address] [place] Carboxyhemoglobin (BldA) [Mass fraction] 0.8 % Normal 0.0-2.0 [facility] Comment on above: Order Comment: Speci men Type: ARTERIAL BLOOD SPECIMENOrdering Facility: [facility] Address: [address] [place] [address] Result Comment: Carb oxyhemoglobin Reference Range for Smokers: 2.0-8.0% Performed By: #### A LLBG ####[facility] [id number] [place] [address] [place] CO2 (Bld) [Partial pressure] 41 mm Hg Normal 36-46 [facility] Comment on above: Order Comment: Speci men Type: ARTERIAL BLOOD SPECIMENOrdering Facility: [facility] Address: [address] [place] [address] Performed By: #### A LLBG ####[facility] [id number] [place] [address] [place] CO2 [Moles/Vol] 28 mmol/L Normal 22-28 [facility] Comment on above: Order Comment: Speci men Type: ARTERIAL BLOOD SPECIMENOrdering Facility: [facility] Address: [address] [place] [address] Performed By: #### A LLBG ####[facility] [id number] [place] [address] [place] Glucose [Mass/Vol] 135 mg/dL High 60-105 [facility] Comment on above: Order Comment: Speci men Type: ARTERIAL BLOOD SPECIMENOrdering Facility: [facility] Address: [address] [place] [address] Performed By: #### A LLBG ####[facility] [id number] [place] [address] [place] HCO3 (Bld) [Moles/Vol] 26 mmol/L Normal 22-26 [facility] Comment on above: Order Comment: Speci men Type: ARTERIAL BLOOD SPECIMENOrdering Facility: [facility] Address: [address] [place] [address] Performed By: #### A LLBG ####[facility] [id number] [address] [place] Hematocrit (Bld) [Volume fraction] 27.8 % Low 39.0-51.0 [facility] Comment on above: Order Comment: Speci men Type: ARTERIAL BLOOD SPECIMENOrdering Facility: [facility] Address: [address] Performed By: #### A LLBG ####[facility] [id number] [address] [place] Hemoglobin (Bld) [Mass/Vol] 9.0 g/dL Low 13.0-17.0 [facility] Comment on above: Order Comment: Speci men Type: ARTERIAL BLOOD SPECIMENOrdering Facility: [facility] Address: [address] Performed By: #### A LLBG ####[facility] [id number] [place] [address] [place] Lactate [Moles/Vol] 0.9 mmol/L Normal 0.5-2.2 [facility] Comment on above: Order Comment: Speci men Type: ARTERIAL BLOOD SPECIMENOrdering Facility: [facility] Address: [address] Performed By: #### A LLBG ####[facility] [id number] [place] [address] [place] Methemoglobin (Bld) [Mass fraction] 1.5 % Normal 0.0-1.5 [facility] Comment on above: Order Comment: Speci men Type: ARTERIAL BLOOD SPECIMENOrdering Facility: [facility] Address: [address] Performed By: #### A LLBG ####[facility] [id number] [place] [address] [place] O2 THERAPY Ventilator Normal [facility] Comment on above: Order Comment: Speci men Type: ARTERIAL BLOOD SPECIMENOrdering Facility: [facility] Address: [address] [place] [address] Performed By: #### A LLBG ####[facility] [id number] [place] [address] [place] Oxygen (Bld) [Partial pressure] 135 mm Hg High 85-95 [facility] Comment on above: Order Comment: Speci men Type: ARTERIAL BLOOD SPECIMENOrdering Facility: [facility] Address: [address] [place] [address] Performed By: #### A LLBG ####[facility] [id number] [place] [address] [place] Oxyhemoglobin (BldA) [Mass fraction] 97 % Normal 95-98 [facility] Comment on above: Order Comment: Speci men Type: ARTERIAL BLOOD SPECIMENOrdering Facility: [facility] Address: [address] [place], [place] [address] Performed By: #### A LLBG ####[facility] [id number] [place] [address] [place] pH (Bld) 7.43 [pH] Normal 7.35-7.45 [facility] Comment on above: Order Comment: Speci men Type: ARTERIAL BLOOD SPECIMENOrdering Facility: [facility] Address: [address] [place], [place] [address] Performed By: #### A LLBG ####[facility] [id number] [place] [address] [place] Potassium [Moles/Vol] 3.2 mmol/L Low 3.5-5.[address] [facility] Comment on above: Order Comment: Speci men Type: ARTERIAL BLOOD SPECIMENOrdering Facility: [facility] Address: [address] [place] [address] Performed By: #### A LLBG ####[facility] [id number] [address] [place] Sodium [Moles/Vol] 140 mmol/L Normal 136-144 [facility] Comment on above: Order Comment: Speci men Type: ARTERIAL BLOOD SPECIMENOrdering Facility: [facility] Address: [address] [place] [address] Performed By: #### A LLBG ####[facility] [id number] [place] [address] [place] Base excess Calc (Bld) [Moles/Vol] 2 mmol/L Normal 0-2 [facility] Comment on above: Order Comment: Speci men Type: ARTERIAL BLOOD SPECIMENOrdering Facility: [facility] Address: [address] [place] [address] Performed By: #### A LLBG ####[facility] [id number] [place] [address] [place] Body temperature 98.6 [degF] Normal [facility] Comment on above: Order Comment: Speci men Type: ARTERIAL BLOOD SPECIMENOrdering Facility: [facility] Address: [address] Performed By: #### A LLBG ####[facility] [id number] [place] [address] [place] Calcium.ionized (Bld) [Mass/Vol] 1.09 mmol/L Normal 1.08-1.30 [facility] Comment on above: Order Comment: Speci men Type: ARTERIAL BLOOD SPECIMENOrdering Facility: [facility] Address: [address] [place] [address] Performed By: #### A LLBG ####[facility] [id number] [place] [address] [place] Calcium.ionized adjusted to pH 7.4 (BldA) [Moles/Vol] 1.12 mmol/L Normal 1.08-1.30 [facility] Comment on above: Order Comment: Speci men Type: ARTERIAL BLOOD SPECIMENOrdering Facility: [facility] Address: [address] [place] [address] Performed By: #### A LLBG ####[facility] [id number] [place] [address] [place] Carboxyhemoglobin (BldA) [Mass fraction] 1.3 % Normal 0.0-2.0 [facility] Comment on above: Order Comment: Speci men Type: ARTERIAL BLOOD SPECIMENOrdering Facility: [facility] Address: [address] [place] [address] Result Comment: Carb oxyhemoglobin Reference Range for Smokers: 2.0-8.0% Performed By: #### A LLBG ####[facility] [id number] [place] [address] [place] CO2 (Bld) [Partial pressure] 39 mm Hg Normal 36-46 [facility] Comment on above: Order Comment: Speci men Type: ARTERIAL BLOOD SPECIMENOrdering Facility: [facility] Address: [address] [place], [place] [address] Performed By: #### A LLBG ####[facility] [id number] [place] [address] [place] CO2 [Moles/Vol] 27 mmol/L Normal 22-28 [facility] Comment on above: Order Comment: Speci men Type: ARTERIAL BLOOD SPECIMENOrdering Facility: [facility] Address: [address] [place], [place] [address] Performed By: #### A LLBG ####[facility] [id number] [place] [address] [place] FIO2 30 % Normal [facility] Comment on above: Order Comment: Speci men Type: ARTERIAL BLOOD SPECIMENOrdering Facility: [facility] Address: [address] Performed By: #### A LLBG ####[facility] [id number] [place] [address] [place] Glucose [Mass/Vol] 140 mg/dL High 60-105 [facility] Comment on above: Order Comment: Speci men Type: ARTERIAL BLOOD SPECIMENOrdering Facility: [facility] Address: [address] [place] [address] Performed By: #### A LLBG ####[facility] [id number] [place] [address] [place] HCO3 (Bld) [Moles/Vol] 26 mmol/L Normal 22-26 [facility] Comment on above: Order Comment: Speci men Type: ARTERIAL BLOOD SPECIMENOrdering Facility: [facility] Address: [address] Performed By: #### A LLBG ####[facility] [id number] [place] [address] [place] Hematocrit (Bld) [Volume fraction] 28.3 % Low 39.0-51.0 [facility] Comment on above: Order Comment: Speci men Type: ARTERIAL BLOOD SPECIMENOrdering Facility: [facility] Address: [address] Performed By: #### A LLBG ####[facility] [id number] [place] [address] [place] Hemoglobin (Bld) [Mass/Vol] 9.1 g/dL Low 13.0-17.0 [facility] Comment on above: Order Comment: Speci men Type: ARTERIAL BLOOD SPECIMENOrdering Facility: [facility] Address: [address] Performed By: #### A LLBG ####[facility] [id number] [place] [address] [place] Lactate [Moles/Vol] 0.8 mmol/L Normal 0.5-2.2 [facility] Comment on above: Order Comment: Speci men Type: ARTERIAL BLOOD SPECIMENOrdering Facility: [facility] Address: [address] [address] Performed By: #### A LLBG ####[facility] LABCLIA [id number] [place] [address] [place] Methemoglobin (Bld) [Mass fraction] 0.9 % Normal 0.0-1.5 [facility] Comment on above: Order Comment: Speci men Type: ARTERIAL BLOOD SPECIMENOrdering Facility: [facility] Address: [address] [place] [address] Performed By: #### A LLBG ####[facility]CL[facility] [id number] [place] [address] [place] O2 THERAPY Ventilator Normal [facility] Comment on above: Order Comment: Speci men Type: ARTERIAL BLOOD SPECIMENOrdering Facility: [facility] Address: [address] [place], [place] [address] Performed By: #### A LLBG ####[facility]CL[facility] [id number] [place] [address] [place] Oxygen (Bld) [Partial pressure] 145 mm Hg High 85-95 [facility] Comment on above: Order Comment: Speci men Type: ARTERIAL BLOOD SPECIMENOrdering Facility: [facility] Address: [address] Performed By: #### A LLBG ####[facility]CL[facility] [id number] [place] [address] [place] Oxyhemoglobin (BldA) [Mass fraction] 97 % Normal 95-98 [facility] Comment on above: Order Comment: Speci men Type: ARTERIAL BLOOD SPECIMENOrdering Facility: [facility] Address: [address] Performed By: #### A LLBG ####[facility]CL[facility] [id number] [place] [address] [place] pH (Bld) 7.44 [pH] Normal 7.35-7.45 [facility] Comment on above: Order Comment: Speci men Type: ARTERIAL BLOOD SPECIMENOrdering Facility: [facility] Address: [address] Performed By: #### A LLBG ####[facility]CL[facility] [id number] [place] [address] [place] Potassium [Moles/Vol] 3.7 mmol/L Normal 3.5-5.[address] [facility] Comment on above: Order Comment: Speci men Type: ARTERIAL BLOOD SPECIMENOrdering Facility: [facility] Address: [address] [place], [place] [address] Performed By: #### A LLBG ####[facility]CL[facility] [id number] [place] [address] [place] Sodium [Moles/Vol] 139 mmol/L Normal 136-144 [facility] Comment on above: Order Comment: Speci men Type: ARTERIAL BLOOD SPECIMENOrdering Facility: [facility] Address: [address] Performed By: #### A LLBG ####[facility] [id number] [place] [address] [place] Base excess Calc (Bld) [Moles/Vol] 4 mmol/L High 0-2 [facility] Comment on above: Order Comment: Speci men Type: ARTERIAL BLOOD SPECIMENOrdering Facility: [facility] Address: [address] Performed By: #### A LLBG ####[facility]CL[facility] [id number] [place] [address] [place] Body temperature 98.06 [degF] Normal [facility] Comment on above: Order Comment: Speci men Type: ARTERIAL BLOOD SPECIMENOrdering Facility: [facility] Address: [address] [place] [address] Performed By: #### A LLBG ####[facility] [id number] [place] [address] [place] Calcium.ionized (Bld) [Mass/Vol] 1.10 mmol/L Normal 1.08-1.30 [facility] Comment on above: Order Comment: Speci men Type: ARTERIAL BLOOD SPECIMENOrdering Facility: [facility] Address: [address] [place] [address] Performed By: #### A LLBG ####[facility] [id number] [facility] Calcium.ionized adjusted to pH 7.4 (BldA) [Moles/Vol] 1.13 mmol/L Normal 1.08-1.30 [facility] Comment on above: Order Comment: Speci men Type: ARTERIAL BLOOD SPECIMENOrdering Facility: [facility] Address: [address] [place], [place] [address] Performed By: #### A LLBG ####[facility] [id number] [place] [address] [place] Carboxyhemoglobin (BldA) [Mass fraction] 2.0 % Normal 0.0-2.0 [facility] Comment on above: Order Comment: Speci men Type: ARTERIAL BLOOD SPECIMENOrdering Facility: [facility] Address: [address] [place], [place] [address] Result Comment: Carb oxyhemoglobin Reference Range for Smokers: 2.0-8.0% Performed By: #### A LLBG ####[facility] [id number] [place] [address] [place] CO2 (Bld) [Partial pressure] 40 mm Hg Normal 36-46 [facility] Comment on above: Order Comment: Speci men Type: ARTERIAL BLOOD SPECIMENOrdering Facility: [facility] Address: [address] Performed By: #### A LLBG ####[facility]CL[facility] [id number] [place] [address] [place] CO2 [Moles/Vol] 29 mmol/L High 22-28 [facility] Comment on above: Order Comment: Speci men Type: ARTERIAL BLOOD SPECIMENOrdering Facility: [facility] Address: [address] Performed By: #### A LLBG ####[facility]CL[facility] [id number] [place] [address] [place] CO2 adjusted to patient's actual temperature (Bld) [Partial pressure] 39 mmHg Normal 36-46 [facility] Comment on above: Order Comment: Speci men Type: ARTERIAL BLOOD SPECIMENOrdering Facility: [facility] Address: [address] [place], [place] [address] Performed By: #### A LLBG ####[facility]CL[facility] [id number] [place] [address] [place] Glucose [Mass/Vol] 148 mg/dL High 60-105 [facility] Comment on above: Order Comment: Speci men Type: ARTERIAL BLOOD SPECIMENOrdering Facility: [facility] Address: [address] Performed By: #### A LLBG ####[facility]CL[facility] [id number] [place] [address] [place] HCO3 (Bld) [Moles/Vol] 27 mmol/L High 22-26 [facility] Comment on above: Order Comment: Speci men Type: ARTERIAL BLOOD SPECIMENOrdering Facility: [facility] Address: [address] Performed By: #### A LLBG ####[facility] [id number] [place] [address] [place] Hematocrit (Bld) [Volume fraction] 27.6 % Low 39.0-51.0 [facility] Comment on above: Order Comment: Speci men Type: ARTERIAL BLOOD SPECIMENOrdering Facility: [facility] Address: [address] Performed By: #### A LLBG ####[facility] LABIA [id number] [place] [address] [place] Hemoglobin (Bld) [Mass/Vol] 8.9 g/dL Low 13.0-17.0 [facility] Comment on above: Order Comment: Speci men Type: ARTERIAL BLOOD SPECIMENOrdering Facility: [facility] Address: [address] Performed By: #### A LLBG ####[facility] LABIA [id number] [place] [address] [place] Lactate [Moles/Vol] 1.0 mmol/L Normal 0.5-2.2 [facility] Comment on above: Order Comment: Speci men Type: ARTERIAL BLOOD SPECIMENOrdering Facility: [facility] Address: [address] Performed By: #### A LLBG ####[facility] LABIA [id number] [place] [address] [place] Methemoglobin (Bld) [Mass fraction] 1.8 % High 0.0-1.5 [facility] Comment on above: Order Comment: Speci men Type: ARTERIAL BLOOD SPECIMENOrdering Facility: [facility] Address: [address] Performed By: #### A LLBG ####[facility] LABIA [id number] [place] [address] [place] O2 THERAPY Ventilator Normal [facility] Comment on above: Order Comment: Speci men Type: ARTERIAL BLOOD SPECIMENOrdering Facility: [facility] Address: [address] Performed By: #### A LLBG ####[facility]CL[facility] [id number] [address] [place] Oxygen (Bld) [Partial pressure] 147 mm Hg High 85-95 [facility] Comment on above: Order Comment: Speci men Type: ARTERIAL BLOOD SPECIMENOrdering Facility: [facility] Address: [address] Performed By: #### A LLBG ####[facility]CL[facility] [id number] [address] [place] Oxygen adjusted to patient's actual temperature (Bld) [Partial pressure] 146 mmHg High 85-95 [facility] Comment on above: Order Comment: Speci men Type: ARTERIAL BLOOD SPECIMENOrdering Facility: [facility] Address: [address] [place], [place] [address] Performed By: #### A LLBG ####[facility]CL[facility] [id number] [place] [address] [place] Oxyhemoglobin (BldA) [Mass fraction] 96 % Normal 95-98 [facility] Comment on above: Order Comment: Speci men Type: ARTERIAL BLOOD SPECIMENOrdering Facility: [facility] Address: [address] [place] [address] Performed By: #### A LLBG ####[facility]CL[facility] [id number] [place] [address] [place] pH (Bld) 7.45 [pH] Normal 7.35-7.45 [facility] Comment on above: Order Comment: Speci men Type: ARTERIAL BLOOD SPECIMENOrdering Facility: [facility] Address: [address] [place] [address] Performed By: #### A LLBG ####[facility]CL[facility] [id number] [place] [address] [place] pH adjusted to patient's actual temperature (Bld) 7.46 High 7.35-7.45 [facility] Comment on above: Order Comment: Speci men Type: ARTERIAL BLOOD SPECIMENOrdering Facility: [facility] Address: [address] [place], [place] [address] Performed By: #### A LLBG ####[facility]CL[facility] [id number] [place] [address] [place] Potassium [Moles/Vol] 3.1 mmol/L Low 3.5-5.[address] [facility] Comment on above: Order Comment: Speci men Type: ARTERIAL BLOOD SPECIMENOrdering Facility: [facility] Address: [address] [place], [place] [address] Performed By: #### A LLBG ####[facility]CL[facility] [id number] [place] [address] [place] Sodium [Moles/Vol] 140 mmol/L Normal 136-144 [facility] Comment on above: Order Comment: Speci men Type: ARTERIAL BLOOD SPECIMENOrdering Facility: [facility] Address: [address] [place], [place] [address] Performed By: #### A LLBG ####[facility]CL[facility] [id number] [place] [address] [place] Base deficit (BldA) [Moles/Vol] -1 mmol/L Normal -2-0 [facility] Comment on above: Order Comment: Speci men Type: ARTERIAL BLOOD SPECIMENOrdering Facility: [facility] Address: [address] [place], [place] [address] Performed By: #### A LLBG ####[facility]CL[facility] [id number] [address] [id number] [address] [place] Body temperature 97.88 [degF] Normal [facility] Comment on above: Order Comment: Speci men Type: ARTERIAL BLOOD SPECIMENOrdering Facility: [facility] Address: [address] Performed By: #### A LLBG ####[facility]CL[facility] [id number] [place] [address] [place] Calcium.ionized (Bld) [Mass/Vol] 1.15 mmol/L Normal 1.08-1.30 [facility] Comment on above: Order Comment: Speci men Type: ARTERIAL BLOOD SPECIMENOrdering Facility: [facility] Address: [address] Performed By: #### A LLBG ####[facility]CL[facility] [id number] [place] [address] [place] Calcium.ionized adjusted to pH 7.4 (BldA) [Moles/Vol] 1.15 mmol/L Normal 1.08-1.30 [facility] Comment on above: Order Comment: Speci men Type: ARTERIAL BLOOD SPECIMENOrdering Facility: [facility] Address: [address] [place], [place] [address] Performed By: #### A LLBG ####[facility]CL[facility] [id number] [place] [address] [place] Carboxyhemoglobin (BldA) [Mass fraction] 0.9 % Normal 0.0-2.0 [facility] Comment on above: Order Comment: Speci men Type: ARTERIAL BLOOD SPECIMENOrdering Facility: [facility] Address: [address] Result Comment: Carb oxyhemoglobin Reference Range for Smokers: 2.0-8.0% Performed By: #### A LLBG ####[facility]CL[facility] [id number] [place] [address] [place] CO2 (Bld) [Partial pressure] 38 mm Hg Normal 36-46 [facility] Comment on above: Order Comment: Speci men Type: ARTERIAL BLOOD SPECIMENOrdering Facility: [facility] Address: [address] Performed By: #### A LLBG ####[facility]CL[facility] [id number] [place] [address] [place] CO2 [Moles/Vol] 24 mmol/L Normal 22-28 [facility] Comment on above: Order Comment: Speci men Type: ARTERIAL BLOOD SPECIMENOrdering Facility: [facility] Address: [address] Performed By: #### A LLBG ####[facility]CL[facility] [id number] [place] [address] [place] CO2 adjusted to patient's actual temperature (Bld) [Partial pressure] 37 mmHg Normal 36-46 [facility] Comment on above: Order Comment: Speci men Type: ARTERIAL BLOOD SPECIMENOrdering Facility: [facility] Address: [address] Performed By: #### A LLBG ####[facility]CL[facility] [id number] [place] [address] [place] FIO2 30 % Normal [facility] Comment on above: Order Comment: Speci men Type: ARTERIAL BLOOD SPECIMENOrdering Facility: [facility] Address: [address] Performed By: #### A LLBG ####[facility]CL[facility] [id number] [place] [address] [place] Glucose [Mass/Vol] 171 mg/dL High 60-105 [facility] Comment on above: Order Comment: Speci men Type: ARTERIAL BLOOD SPECIMENOrdering Facility: [facility] Address: [address] Performed By: #### A LLBG ####[facility]CL[facility] [id number] [place] [address] [place] HCO3 (Bld) [Moles/Vol] 23 mmol/L Normal 22-26 [facility] Comment on above: Order Comment: Speci men Type: ARTERIAL BLOOD SPECIMENOrdering Facility: [facility] Address: [address] [place] [address] Performed By: #### A LLBG ####[facility]CL[facility] [id number] [place] [address] [place] Hematocrit (Bld) [Volume fraction] 27.6 % Low 39.0-51.0 [facility] Comment on above: Order Comment: Speci men Type: ARTERIAL BLOOD SPECIMENOrdering Facility: [facility] Address: [address] [place] [address] Performed By: #### A LLBG ####[facility]CL[facility] [id number] [place] [address] [place] Hemoglobin (Bld) [Mass/Vol] 8.9 g/dL Low 13.0-17.0 [facility] Comment on above: Order Comment: Speci men Type: ARTERIAL BLOOD SPECIMENOrdering Facility: [facility] Address: [address] [place], [place] [address] Performed By: #### A LLBG ####[facility] LABIA [id number] [place] [address] [place] Lactate [Moles/Vol] 1.4 mmol/L Normal 0.5-2.2 [facility] Comment on above: Order Comment: Speci men Type: ARTERIAL BLOOD SPECIMENOrdering Facility: [facility] Address: [address] [place], [place] [address] Performed By: #### A LLBG ####[facility]CLIA [id number] [place] [address] [place] Methemoglobin (Bld) [Mass fraction] 1.5 % Normal 0.0-1.5 [facility] Comment on above: Order Comment: Speci men Type: ARTERIAL BLOOD SPECIMENOrdering Facility: [facility] Address: [address] [place] [address] Performed By: #### A LLBG ####[facility] LABCLIA [id number] [place] [id number] [place] O2 THERAPY Ventilator Normal [facility] Comment on above: Order Comment: Speci men Type: ARTERIAL BLOOD SPECIMENOrdering Facility: [facility] Address: [address] [place] [address] Performed By: #### A LLBG ####[facility]CL[facility] [id number] [place] [address] [place] Oxygen (Bld) [Partial pressure] 162 mm Hg High 85-95 [facility] Comment on above: Order Comment: Speci men Type: ARTERIAL BLOOD SPECIMENOrdering Facility: [facility] Address: [address] [id number] Performed By: #### A LLBG ####[facility] LABCL[facility] [id number] [place] [id number] [place] Oxygen adjusted to patient's actual temperature (Bld) [Partial pressure] 160 mmHg High 85-95 [facility] Comment on above: Order Comment: Speci men Type: ARTERIAL BLOOD SPECIMENOrdering Facility: [facility] Address: [address] [id number] Performed By: #### A LLBG ####[facility]CL[facility] [id number] [place] [id number] [place] Oxyhemoglobin (BldA) [Mass fraction] 97 % Normal 95-98 [facility] Comment on above: Order Comment: Speci men Type: ARTERIAL BLOOD SPECIMENOrdering Facility: [facility] Address: [address] [id number] Performed By: #### A LLBG ####[facility]CL[facility] [id number] [place] [id number] [place] PEEP/CPAP 8 cmH2O Normal [facility] Comment on above: Order Comment: Speci men Type: ARTERIAL BLOOD SPECIMENOrdering Facility: [facility] Address: [address] [place] [address] Performed By: #### A LLBG ####[facility]CLIA [id number] [place] [address] [place] pH (Bld) 7.40 [pH] Normal 7.35-7.45 [facility] Comment on above: Order Comment: Speci men Type: ARTERIAL BLOOD SPECIMENOrdering Facility: [facility] Address: [address] [place] [address] Performed By: #### A LLBG ####[facility]CLIA [id number] [place] [address] [place] pH adjusted to patient's actual temperature (Bld) 7.40 Normal 7.35-7.45 [facility] Comment on above: Order Comment: Speci men Type: ARTERIAL BLOOD SPECIMENOrdering Facility: [facility] Address: [address] [place], [place] [address] Performed By: #### A LLBG ####[facility]CLIA [id number] [place] [address] [place] Potassium [Moles/Vol] 4.0 mmol/L Normal 3.5-5.[address] [facility] Comment on above: Order Comment: Speci men Type: ARTERIAL BLOOD SPECIMENOrdering Facility: [facility] Address: [address] [place], [place] [address] Performed By: #### A LLBG ####[facility] LABCLIA [id number] [place] [address] [place] Sodium [Moles/Vol] 141 mmol/L Normal 136-144 [facility] Comment on above: Order Comment: Speci men Type: ARTERIAL BLOOD SPECIMENOrdering Facility: [facility] Address: [address] [place] [address] Performed By: #### A LLBG ####[facility]CL[facility] [id number] [address] [place] Base deficit (BldA) [Moles/Vol] -2 mmol/L Normal -2-0 [facility] Comment on above: Order Comment: Speci men Type: ARTERIAL BLOOD SPECIMENOrdering Facility: [facility] Address: [address] Performed By: #### A LLBG ####[facility] LABIA [id number] [place] [address] [place] Body temperature 97.52 [degF] Normal [facility] Comment on above: Order Comment: Speci men Type: ARTERIAL BLOOD SPECIMENOrdering Facility: [facility] Address: [address] [place], [place] [address] Performed By: #### A LLBG ####[facility] LABIA [id number] [place] [address] [place] Calcium.ionized (Bld) [Mass/Vol] 1.24 mmol/L Normal 1.08-1.30 [facility] Comment on above: Order Comment: Speci men Type: ARTERIAL BLOOD SPECIMENOrdering Facility: [facility] Address: [address] [place] [address] Performed By: #### A LLBG ####[facility] LABIA [id number] [place] [address] [place] Calcium.ionized adjusted to pH 7.4 (BldA) [Moles/Vol] 1.19 mmol/L Normal 1.08-1.30 [facility] Comment on above: Order Comment: Speci men Type: ARTERIAL BLOOD SPECIMENOrdering Facility: [facility] Address: [address] [place], [place] [address] Performed By: #### A LLBG ####[facility] LABCLIA [id number] [place] [address] [place] Carboxyhemoglobin (BldA) [Mass fraction] 1.2 % Normal 0.0-2.0 [facility] Comment on above: Order Comment: Speci men Type: ARTERIAL BLOOD SPECIMENOrdering Facility: [facility] Address: [address] [place] [address] Result Comment: Carb oxyhemoglobin Reference Range for Smokers: 2.0-8.0% Performed By: #### A LLBG ####[facility]CLIA [id number] [place] [address] [place] CO2 (Bld) [Partial pressure] 45 mm Hg Normal 36-46 [facility] Comment on above: Order Comment: Speci men Type: ARTERIAL BLOOD SPECIMENOrdering Facility: [facility] Address: [address] [place] [address] Performed By: #### A LLBG ####[facility]CLIA [id number] [place] [address] [place] CO2 [Moles/Vol] 24 mmol/L Normal 22-28 [facility] Comment on above: Order Comment: Speci men Type: ARTERIAL BLOOD SPECIMENOrdering Facility: [facility] Address: [address] [place] [address] Performed By: #### A LLBG ####[facility]CLIA [id number] [place] [address] [place] CO2 adjusted to patient's actual temperature (Bld) [Partial pressure] 43 mmHg Normal 36-46 [facility] Comment on above: Order Comment: Speci men Type: ARTERIAL BLOOD SPECIMENOrdering Facility: [facility] Address: [address] [place], [place] [address] Performed By: #### A LLBG ####[facility]CL[facility] [id number] [place] [address] [place] FIO2 30 % Normal [facility] Comment on above: Order Comment: Speci men Type: ARTERIAL BLOOD SPECIMENOrdering Facility: [facility] Address: [address] [place] [address] Performed By: #### A LLBG ####[facility] LABCLIA [id number] [place] [address] [place] Glucose [Mass/Vol] 169 mg/dL High 60-105 [facility] Comment on above: Order Comment: Speci men Type: ARTERIAL BLOOD SPECIMENOrdering Facility: [facility] Address: [address] Performed By: #### A LLBG ####[facility]CL[facility] [id number] [place] [address] [place] HCO3 (Bld) [Moles/Vol] 23 mmol/L Normal 22-26 [facility] Comment on above: Order Comment: Speci men Type: ARTERIAL BLOOD SPECIMENOrdering Facility: [facility] Address: [address] Performed By: #### A LLBG ####[facility]CL[facility] [id number] [place] [address] [place] Hematocrit (Bld) [Volume fraction] 24.8 % Low 39.0-51.0 [facility] Comment on above: Order Comment: Speci men Type: ARTERIAL BLOOD SPECIMENOrdering Facility: [facility] Address: [address] Performed By: #### A LLBG ####[facility]CL[facility] [id number] [place] [address] [place] Hemoglobin (Bld) [Mass/Vol] 8.0 g/dL Low 13.0-17.0 [facility] Comment on above: Order Comment: Speci men Type: ARTERIAL BLOOD SPECIMENOrdering Facility: [facility] Address: [address] Performed By: #### A LLBG ####[facility]CLIA [id number] [place] [address] [place] Lactate [Moles/Vol] 0.6 mmol/L Normal 0.5-2.2 [facility] Comment on above: Order Comment: Speci men Type: ARTERIAL BLOOD SPECIMENOrdering Facility: [facility] Address: [address] [place] [address] Performed By: #### A LLBG ####[facility] LABIA [id number] [address] [place] Methemoglobin (Bld) [Mass fraction] 1.1 % Normal 0.0-1.5 [facility] Comment on above: Order Comment: Speci men Type: ARTERIAL BLOOD SPECIMENOrdering Facility: [facility] Address: [address] [place] [address] Performed By: #### A LLBG ####[facility] [id number] [address] [place] O2 THERAPY Ventilator Normal [facility] Comment on above: Order Comment: Speci men Type: ARTERIAL BLOOD SPECIMENOrdering Facility: [facility] Address: [address] [place], [place] [address] Performed By: #### A LLBG ####[facility] [id number] [place] [address] [place] Oxygen (Bld) [Partial pressure] 157 mm Hg High 85-95 [facility] Comment on above: Order Comment: Speci men Type: ARTERIAL BLOOD SPECIMENOrdering Facility: [facility] Address: [address] [place], [place] [address] Performed By: #### A LLBG ####[facility] LABCLIA [id number] [address] [place] Oxygen adjusted to patient's actual temperature (Bld) [Partial pressure] 155 mmHg High 85-95 [facility] Comment on above: Order Comment: Speci men Type: ARTERIAL BLOOD SPECIMENOrdering Facility: [facility] Address: [address] Performed By: #### A LLBG ####[facility] LABCLIA [id number] [address] STATES [facility] Oxyhemoglobin (BldA) [Mass fraction] 97 % Normal 95-98 [facility] Comment on above: Order Comment: Speci men Type: ARTERIAL BLOOD SPECIMENOrdering Facility: [facility] Address: [address] [place], [place] [address] Performed By: #### A LLBG ####[facility] LABCLIA [id number] [place] [address] [place] PEEP/CPAP 10 cmH2O Normal [facility] Comment on above: Order Comment: Speci men Type: ARTERIAL BLOOD SPECIMENOrdering Facility: [facility] Address: [address] [place], [place] [address] Performed By: #### A LLBG ####[facility] LABCLIA [id number] [place] [address] [place] pH (Bld) 7.33 [pH] Low 7.35-7.45 [facility] Comment on above: Order Comment: Speci men Type: ARTERIAL BLOOD SPECIMENOrdering Facility: [facility] Address: [address] [place], [place] [address] Performed By: #### A LLBG ####[facility] LABCLIA [id number] [place] [address] [place] pH adjusted to patient's actual temperature (Bld) 7.34 Low 7.35-7.45 [facility] Comment on above: Order Comment: Speci men Type: ARTERIAL BLOOD SPECIMENOrdering Facility: [facility] Address: [address] [place], [place] [address] Performed By: #### A LLBG ####[facility] LABCLIA [id number] [address] [id number] [address] [place] Potassium [Moles/Vol] 3.2 mmol/L Low 3.5-5.[address] [facility] Comment on above: Order Comment: Speci men Type: ARTERIAL BLOOD SPECIMENOrdering Facility: [facility] Address: [address] [place] [address] Performed By: #### A LLBG ####[facility] LABCLIA [id number] [place] [address] [place] Sodium [Moles/Vol] 144 mmol/L Normal 136-144 [facility] Comment on above: Order Comment: Speci men Type: ARTERIAL BLOOD SPECIMENOrdering Facility: [facility] Address: [address] [place] [address] Performed By: #### A LLBG ####[facility] LABCLIA [id number] [place] [address] [place] Base deficit (BldA) [Moles/Vol] -6 mmol/L Low -2-0 [facility] Comment on above: Order Comment: Speci men Type: ARTERIAL BLOOD SPECIMENOrdering Facility: [facility] Address: [address] [place], [place] [address] Performed By: #### A LLBG ####[facility] LABCLIA [id number] [place] [address] [place] Body temperature 98.6 [degF] Normal [facility] Comment on above: Order Comment: Speci men Type: ARTERIAL BLOOD SPECIMENOrdering Facility: [facility] Address: [address] [place], [place] [address] Performed By: #### A LLBG ####[facility] [id number] [place] [address] [place] Calcium.ionized (Bld) [Mass/Vol] 1.15 mmol/L Normal 1.08-1.30 [facility] Comment on above: Order Comment: Speci men Type: ARTERIAL BLOOD SPECIMENOrdering Facility: [facility] Address: [address] Performed By: #### A LLBG ####[facility] [id number] [place] [address] [place] Calcium.ionized adjusted to pH 7.4 (BldA) [Moles/Vol] 1.05 mmol/L Low 1.08-1.30 [facility] Comment on above: Order Comment: Speci men Type: ARTERIAL BLOOD SPECIMENOrdering Facility: [facility] Address: [address] [address] Performed By: #### A LLBG ####[facility] [id number] [place] [address] [place] Carboxyhemoglobin (BldA) [Mass fraction] 1.3 % Normal 0.0-2.0 [facility] Comment on above: Order Comment: Speci men Type: ARTERIAL BLOOD SPECIMENOrdering Facility: [facility] Address: [address] [place], [place] [address] Result Comment: Carb oxyhemoglobin Reference Range for Smokers: 2.0-8.0% Performed By: #### A LLBG ####[facility] [id number] [place] [address] [place] CO2 (Bld) [Partial pressure] 50 mm Hg High 36-46 [facility] Comment on above: Order Comment: Speci men Type: ARTERIAL BLOOD SPECIMENOrdering Facility: [facility] Address: [address] Performed By: #### A LLBG ####[facility] [id number] [place] [address] [place] CO2 [Moles/Vol] 22 mmol/L Normal 22-28 [facility] Comment on above: Order Comment: Speci men Type: ARTERIAL BLOOD SPECIMENOrdering Facility: [facility] Address: [address] Performed By: #### A LLBG ####[facility] LABCLIA [id number] [place] [address] [place] FIO2 40 % Normal [facility] Comment on above: Order Comment: Speci men Type: ARTERIAL BLOOD SPECIMENOrdering Facility: [facility] Address: [address] [place] [address] Performed By: #### A LLBG ####[facility] LABCLIA [id number] [place] [address] [place] Glucose [Mass/Vol] 188 mg/dL High 60-105 [facility] Comment on above: Order Comment: Speci men Type: ARTERIAL BLOOD SPECIMENOrdering Facility: [facility] Address: [address] [place] [address] Performed By: #### A LLBG ####[facility] LABCLIA [id number] [place] [address] [place] HCO3 (Bld) [Moles/Vol] 21 mmol/L Low 22-26 [facility] Comment on above: Order Comment: Speci men Type: ARTERIAL BLOOD SPECIMENOrdering Facility: [facility] Address: [address] [place] [address] Performed By: #### A LLBG ####[facility] LABCLIA [id number] [place] [address] [place] Hematocrit (Bld) [Volume fraction] 24.7 % Low 39.0-51.0 [facility] Comment on above: Order Comment: Speci men Type: ARTERIAL BLOOD SPECIMENOrdering Facility: [facility] Address: [address] [place], [place] [address] Performed By: #### A LLBG ####[facility]CL[facility] [id number] [place] [address] [place] Hemoglobin (Bld) [Mass/Vol] 7.9 g/dL Low 13.0-17.0 [facility] Comment on above: Order Comment: Speci men Type: ARTERIAL BLOOD SPECIMENOrdering Facility: [facility] Address: [address] Performed By: #### A LLBG ####[facility] LABCLIA [id number] [place] [address] [place] Lactate [Moles/Vol] 0.5 mmol/L Normal 0.5-2.2 [facility] Comment on above: Order Comment: Speci men Type: ARTERIAL BLOOD SPECIMENOrdering Facility: [facility] Address: [address] Performed By: #### A LLBG ####[facility] LABCLIA [id number] [place] [address] [place] Methemoglobin (Bld) [Mass fraction] 0.9 % Normal 0.0-1.5 [facility] Comment on above: Order Comment: Speci men Type: ARTERIAL BLOOD SPECIMENOrdering Facility: [facility] Address: [address] Performed By: #### A LLBG ####[facility] [id number] [place] [address] [place] O2 THERAPY Ventilator Normal [facility] Comment on above: Order Comment: Speci men Type: ARTERIAL BLOOD SPECIMENOrdering Facility: [facility] Address: [address] Performed By: #### A LLBG ####[facility] LABCLIA [id number] [place] [address] [place] Oxygen (Bld) [Partial pressure] 189 mm Hg High 85-95 [facility] Comment on above: Order Comment: Speci men Type: ARTERIAL BLOOD SPECIMENOrdering Facility: [facility] Address: [address] Performed By: #### A LLBG ####[facility] LABCLIA [id number] [place] [address] [place] Oxyhemoglobin (BldA) [Mass fraction] 97 % Normal 95-98 [facility] Comment on above: Order Comment: Speci men Type: ARTERIAL BLOOD SPECIMENOrdering Facility: [facility] Address: [address] [place] [address] Performed By: #### A LLBG ####[facility] LABCLIA [id number] [place] [address] [place] pH (Bld) 7.24 [pH] Low 7.35-7.45 [facility] Comment on above: Order Comment: Speci men Type: ARTERIAL BLOOD SPECIMENOrdering Facility: [facility] Address: [address] [place] [address] Performed By: #### A LLBG ####[facility] LABCLIA [id number] [place] [address] [place] Potassium [Moles/Vol] 3.3 mmol/L Low 3.5-5.[address] [facility] Comment on above: Order Comment: Speci men Type: ARTERIAL BLOOD SPECIMENOrdering Facility: [facility] Address: [address] [place], [place] [address] Performed By: #### A LLBG ####[facility] LABCLIA [id number] [place] [address] [place] Sodium [Moles/Vol] 143 mmol/L Normal 136-144 [facility] Comment on above: Order Comment: Speci men Type: ARTERIAL BLOOD SPECIMENOrdering Facility: [facility] Address: [address] [place], [place] [address] Performed By: #### A LLBG ####[facility] LABCLIA [id number] [place] [address] [place] Basic metabolic 2000 panelon 03-15-2023 Anion gap [Moles/Vol] 10 mmol/L Normal 9-[address] [facility] Comment on above: Order Comment: Speci men Type: BLOOD SPECIMENOrdering Facility: [facility] Address: [address] [address] Performed By: #### 2 777-1, 54612-5 ####[facility] LABCLIA [id number] [place] [address] [place] Calcium [Mass/Vol] 8.2 mg/dL Low 8.5-10.2 [facility] Comment on above: Order Comment: Speci men Type: BLOOD SPECIMENOrdering Facility: [facility] Address: [address] [address] Performed By: #### 2 777-1, 35892-9 ####[facility]CL[facility] [id number] [place] [address] [place] Chloride [Moles/Vol] 106 mmol/L High 97-105 [facility] Comment on above: Order Comment: Speci men Type: BLOOD SPECIMENOrdering Facility: [facility] Address: [address] Performed By: #### 2 777-1, 02200-0 ####[facility]CL[facility] [id number] [place] [address] [place] CO2 [Moles/Vol] 26 mmol/L Normal 22-30 [facility] Comment on above: Order Comment: Speci men Type: BLOOD SPECIMENOrdering Facility: [facility] Address: [address] Performed By: #### 2 777-1, 80758-5 ####[facility]CL[facility] [id number] [place] [address] [place] Creatinine [Mass/Vol] 0.32 mg/dL Low 0.73-1.[address] [facility] Comment on above: Order Comment: Speci men Type: BLOOD SPECIMENOrdering Facility: [facility] Address: [address] Performed By: #### 2 777-1, 11089-3 ####[facility] [id number] [place] [address] [place] GFR/1.73 sq M.predicted among non-blacks MDRD (S/P/Bld) [Vol rate/Area] mL/min/{1.73_m2} Normal >=60 [facility] Comment on above: Order Comment: Frantz thurman Type: BLOOD SPECIMENOrdering Facility: [facility] Address: [address] [place] [address] Result Comment: Mary mated Glomerular Filtration Rate [...] actual GFR. Performed By: #### 2 777-1, 47130-2 ####[facility] [id number] [place] [address] [place] Glucose [Mass/Vol] 138 mg/dL High 74-99 [facility] Comment on above: Order Comment: Frantz thurman Type: BLOOD SPECIMENOrdering Facility: [facility] Address: [address] [place] [address] Result Comment: The [place] [employer] (ADA) provides guidance for cutoff [...] Standards of Medical Care in Diabetes 2016, [place] [employer]. Diabetes Care. 2016.39(Suppl 1). Performed By: #### 2 777-1, 27644-6 ####[facility] LABCL[facility] [id number] [place] [address] [place] Potassium [Moles/Vol] 3.3 mmol/L Low 3.7-5.[address] [facility] Comment on above: Order Comment: Speci men Type: BLOOD SPECIMENOrdering Facility: [facility] Address: [address] [place] [address] Performed By: #### 2 777-1, 68884-6 ####[facility]CL[facility] [id number] [place] [address] [place] Sodium [Moles/Vol] 142 mmol/L Normal 136-144 [facility] Comment on above: Order Comment: Speci men Type: BLOOD SPECIMENOrdering Facility: [facility] Address: [address] [place] [address] Performed By: #### 2 777-1, 00202-4 ####[facility] [id number] [place] [address] [place] Urea nitrogen [Mass/Vol] 3 mg/dL Low 9-24 [facility] Comment on above: Order Comment: Speci men Type: BLOOD SPECIMENOrdering Facility: [facility] Address: [address] [place] [address] Performed By: #### 2 777-1, 96853-3 ####[facility]CL[facility] [id number] [place] [address] [place] CBC panel Auto (Bld)on 03-15 Erythrocyte distribution width (RBC) [Ratio] 12.7 % Normal 11.5-15.0 [facility] Comment on above: Order Comment: Speci men Type: BLOOD SPECIMENOrdering Facility: [facility] Address: [address] [place] [address] Performed By: #### 5 8410-2 ####[facility] LABCLIA [id number] [address] [place] [facility] Hematocrit (Bld) [Volume fraction] 25.4 % Low 39.0-51.0 [facility] Comment on above: Order Comment: Speci men Type: BLOOD SPECIMENOrdering Facility: [facility] Address: [address] [place] [address] Performed By: #### 5 8410-2 ####[facility] [id number] [address] [place] Hemoglobin (Bld) [Mass/Vol] 8.6 g/dL Low 13.0-17.0 [facility] Comment on above: Order Comment: Speci men Type: BLOOD SPECIMENOrdering Facility: [facility] Address: [address] [place] [address] Performed By: #### 5 8410-2 ####[facility] [id number] [address] MCH (RBC) [Entitic mass] 28.2 pg Normal 26.0-34.0 [facility] Comment on above: Order Comment: Speci men Type: BLOOD SPECIMENOrdering Facility: [facility] Address: [address] [place] [address] Performed By: #### 5 8410-2 ####[facility] [id number] [address] [place] MCHC (RBC) [Mass/Vol] 33.9 g/dL Normal 30.5-36.[address] [facility] Comment on above: Order Comment: Speci men Type: BLOOD SPECIMENOrdering Facility: [facility] Address: [address] [place] [address] Performed By: #### 5 8410-2 ####[facility] LABCL[facility] [id number] [address] [place] MCV (RBC) [Entitic vol] 83.3 fL Normal 80.0-100.0 [facility] Comment on above: Order Comment: Speci men Type: BLOOD SPECIMENOrdering Facility: [facility] Address: [address] [place], [place] [address] Performed By: #### 5 8410-2 ####[facility] [id number] [place] [address] [place] Nucleated RBC (Bld) [#/Vol] 10*3/uL Normal <0.01 [facility] Comment on above: Order Comment: Speci men Type: BLOOD SPECIMENOrdering Facility: [facility] Address: [address] [place], [place] [address] Performed By: #### 5 8410-2 ####[facility] [id number] [place] [address] [place] Platelet mean volume (Bld) [Entitic vol] 9.3 fL Normal 9.0-12.7 [facility] Comment on above: Order Comment: Speci men Type: BLOOD SPECIMENOrdering Facility: [facility] Address: [address] [place], [place] [address] Performed By: #### 5 8410-2 ####[facility] [id number] [place] [address] [place] Platelets (Bld) [#/Vol] 186 10*3/uL Normal 150-400 [facility] Comment on above: Order Comment: Speci men Type: BLOOD SPECIMENOrdering Facility: [facility] Address: [address] [place] [address] Performed By: #### 5 8410-2 ####[facility] [id number] [place] [address] [place] RBC (Bld) [#/Vol] 3.05 10*6/uL Low 4.20-6.00 [facility] Comment on above: Order Comment: Speci men Type: BLOOD SPECIMENOrdering Facility: [facility] Address: [address] [place] [address] Performed By: #### 5 8410-2 ####[facility] [id number] [place] [address] [place] WBC (Bld) [#/Vol] 7.46 10*3/uL Normal 3.70-11.00 [facility] Comment on above: Order Comment: Speci men Type: BLOOD SPECIMENOrdering Facility: [facility] Address: [address] [place] [address] Performed By: #### 5 8410-2 ####[facility] [id number] [place] [address] [place] CONSULT PROGon 03-15-2023 CONSULT PROG Normal [facility] Comprehensive metabolic 2000 panelon 03-15-2023 Albumin [Mass/Vol] 4.7 g/dL Normal 3.9-4.9 [facility] Comment on above: Order Comment: Speci men Type: BLOOD SPECIMENOrdering Facility: [facility] Address: [address] [place] [address] Performed By: #### 2 4323-8, HSTNT, , 2776- ####[facility] [id number] [place] [address] [place] ALP [Catalytic activity/Vol] 21 U/L Low 38-113 [facility] Comment on above: Order Comment: Speci men Type: BLOOD SPECIMENOrdering Facility: [facility] Address: [address] [place], [place] [address] Performed By: #### 2 4323-8, HSTNT, , 2776- ####[facility]CL[facility] [id number] [place] [address] [place] ALT [Catalytic activity/Vol] 27 U/L Normal 10-54 [facility] Comment on above: Order Comment: Speci men Type: BLOOD SPECIMENOrdering Facility: [facility] Address: [address] [place] [address] Performed By: #### 2 4323-8, HSTNT, , 2776-10 ####[facility]CL[facility] [id number] [place] [address] [place] Anion gap [Moles/Vol] 14 mmol/L Normal 9-[address] [facility] Comment on above: Order Comment: Speci men Type: BLOOD SPECIMENOrdering Facility: [facility] Address: [address] Performed By: #### 2 4323-8, HSTNT, , 2776-10 ####[facility]CL[facility] [id number] [place] [address] [place] AST [Catalytic activity/Vol] 42 U/L High 14-40 [facility] Comment on above: Order Comment: Speci men Type: BLOOD SPECIMENOrdering Facility: [facility] Address: [address] [place], [place] [address] Performed By: #### 2 4323-8, HSTNT, , 2776-10 ####[facility] [id number] [place] [address] [place] Bilirubin [Mass/Vol] 2.2 mg/dL High 0.2-1.3 [facility] Comment on above: Order Comment: Speci men Type: BLOOD SPECIMENOrdering Facility: [facility] Address: [address] [place] [address] Performed By: #### 2 4323-8, HSTNT, , 2776-10 ####[facility] [id number] [place] [address] [place] Calcium [Mass/Vol] 8.4 mg/dL Low 8.5-10.2 [facility] Comment on above: Order Comment: Speci men Type: BLOOD SPECIMENOrdering Facility: [facility] Address: [address] Performed By: #### 2 4323-8, HSTNT, , 2776-10 ####[facility] [id number] [place] [address] [place] Chloride [Moles/Vol] 107 mmol/L High 97-105 [facility] Comment on above: Order Comment: Speci men Type: BLOOD SPECIMENOrdering Facility: [facility] Address: [address] [place], [place] [address] Performed By: #### 2 4323-8, HSTNT, , 2776-10 ####[facility] [id number] [place] [address] [place] CO2 [Moles/Vol] 21 mmol/L Low 22-30 [facility] Comment on above: Order Comment: Speci men Type: BLOOD SPECIMENOrdering Facility: [facility] Address: [address] [place], [place] [address] Performed By: #### 2 4323-8, HSTNT, , 2776-10 ####[facility] [id number] [place] [address] [place] Creatinine [Mass/Vol] 0.36 mg/dL Low 0.73-1.[address] [facility] Comment on above: Order Comment: Speci men Type: BLOOD SPECIMENOrdering Facility: [facility] Address: [address] [place], [place] [address] Performed By: #### 2 4323-8, HSTNT, , 2776-10 ####[facility] [id number] [place] [address] [place] GFR/1.73 sq M.predicted among non-blacks MDRD (S/P/Bld) [Vol rate/Area] mL/min/{1.73_m2} Normal >=60 [facility] Comment on above: Order Comment: Frantz thurman Type: BLOOD SPECIMENOrdering Facility: [facility] Address: [address] [place] [address] Result Comment: Mary mated Glomerular Filtration Rate [...] By: #### 2 4323-8, HSTNT, , 2776-10 ####[facility] [id number] [place] [address] [place] Glucose [Mass/Vol] 171 mg/dL High 74-99 [facility] Comment on above: Order Comment: Frantz thurman Type: BLOOD SPECIMENOrdering Facility: [facility] Address: [address] [place] [address] Result Comment: The [place] [employer] (ADA) provides guidance for cutoff [...] Standards of Medical Care in Diabetes 2016, [place] [employer]. Diabetes Care. 2016.39(Suppl 1). Performed By: #### 2 4323-8, HSTNT, , 2776-10 ####[facility] [id number] [place] [id number] [place] Potassium [Moles/Vol] 4.1 mmol/L Normal 3.7-5.[address] [facility] Comment on above: Order Comment: Speci men Type: BLOOD SPECIMENOrdering Facility: [facility] Address: [address] Performed By: #### 2 4323-8, HSTNT, , 2776- ####[facility] [id number] [place] [address] [place] Protein [Mass/Vol] 5.9 g/dL Low 6.3-8.0 [facility] Comment on above: Order Comment: Speci men Type: BLOOD SPECIMENOrdering Facility: [facility] Address: [address] Performed By: #### 2 4323-8, HSTNT, , 2776-10 ####[facility] [id number] [place] [address] [place] Sodium [Moles/Vol] 142 mmol/L Normal 136-144 [facility] Comment on above: Order Comment: Speci men Type: BLOOD SPECIMENOrdering Facility: [facility] Address: [address] [address] [place], [place] [address] Performed By: #### 2 4323-8, HSTNT, , 2776-10 ####[facility] [id number] [place] [address] [place] Urea nitrogen [Mass/Vol] 5 mg/dL Low 9-24 [facility] Comment on above: Order Comment: Speci men Type: BLOOD SPECIMENOrdering Facility: [facility] Address: [address] Performed By: #### 2 4323-8, HSTNT, , 2776-10 ####[facility] LABCL[facility] [id number] [place] [id number] [place] HIGH SENSITIVITY TROPONIN To n 03-15-2023 HIGH SENSITIVITY OMAR 12 ng/L High <12 [facility] Comment on above: Order Comment: Speci men Type: BLOOD SPECIMENOrdering Facility: [facility] Address: [address] [place] [address] Result Comment: When assessing risk for acute [...] By: #### 2 4323-8, HSTNT, , 2776- ####[facility]CL[facility] [id number] [place] [address] [place] Magnesium SerPl-mCncon 03-15 Magnesium [Mass/Vol] 2.1 mg/dL Normal 1.7-2.3 [facility] Comment on above: Order Comment: Speci men Type: BLOOD SPECIMENOrdering Facility: [facility] Address: [address] [place] [address] Performed By: #### 2 4323-8, HSTNT, , 2776- ####[facility] [id number] [address] [place] POTASSIUM BLDon 03-15-2023 Potassium [Moles/Vol] 3.6 mmol/L Low 3.7-5.[address] [facility] Comment on above: Order Comment: Speci men Type: BLOOD SPECIMENOrdering Facility: [facility] Address: [address] [place] [address] Performed By: #### K 1 ####[facility] [id number] [place] [address] [place] PT panel Coag (PPP)on 2022 INR Coag (PPP) [Relative time] 1.5 {INR} High 0.9-1.3 [facility] Comment on above: Order Comment: Speci men Type: BLOOD SPECIMENOrdering Facility: [facility] Address: [address] [place] [address] Result Comment: Agle min K Antagonist (VKA) Therapeutic Range: INR 2 to 3 (Target INR of 2.5)Note: For patients treated with VKA drugs, such as warfarin, the [employer] 2012 Guideline recommends [...] al. Chest 2012, 141:7S-47SNishimlisa RA, et al. [facility] 2017, 70: 252-289 Performed By: #### 3 4528-0 ####[facility] [id number] [place] [address] [place] PT Coag (PPP) [Time] 15.4 s High 9.7-13.0 [facility] Comment on above: Order Comment: Frantz thurman Type: BLOOD SPECIMENOrdering Facility: [facility] Address: [address] [place] [address] Performed By: #### 3 4528-0 ####[facility] [id number] [address] STATES OF [facility] INR Coag (PPP) [Relative time] 1.6 {INR} High 0.9-1.3 [facility] Comment on above: Order Comment: Frantz thurman Type: BLOOD SPECIMENOrdering Facility: [facility] Address: [address] [place] [address] Result Comment: Gale min K Antagonist (VKA) Therapeutic Range: INR 2 to 3 (Target INR of 2.5)Note: For patients treated with VKA drugs, such as warfarin, the [employer] 2012 Guideline recommends [...] al. Chest 2012, 141:7S-47SNishimura RA, et al. [facility] 2017, 70: 252-289 Performed By: #### 3 4528-0, 29504-3 ####[facility] [id number] [place] [address] [place] PT Coag (PPP) [Time] 16.1 s High 9.7-13.0 [facility] Comment on above: Order Comment: Speci men Type: BLOOD SPECIMENOrdering Facility: [facility] Address: [address] [place] [address] Performed By: #### 3 4528-0, 44928-5 ####[facility] [id number] [place] [address] [place] Phosphate SerPl-mCncon 03-15 Phosphate [Mass/Vol] 2.4 mg/dL Low 2.7-4.8 [facility] Comment on above: Order Comment: Speci men Type: BLOOD SPECIMENOrdering Facility: [facility] Address: [address] [place] [address] Performed By: #### 2 777-1, 66197-1 ####[facility] [id number] [place] [address] [place] Phosphate [Mass/Vol] 0.9 mg/dL Low 2.7-4.8 [facility] Comment on above: Order Comment: Speci men Type: BLOOD SPECIMENOrdering Facility: [facility] Address: [address] [place] [address] Performed By: #### 2 4323-8, HSTNT, 94200-3, 2777-1 ####[facility] [id number] [place] [address] [place] Procalcitonin SerPl-mCncon 0 03-15-2023 Procalcitonin [Mass/Vol] 0.47 ng/mL High <0.09 [facility] Comment on above: Order Comment: Speci men Type: BLOOD SPECIMENOrdering Facility: [facility] Address: [address] [place] [address] Result Comment: For a guided interpretation of test results, please visit the Change in Procalcitonin Calculator, [email or web address]. Performed By: #### 3 3959-8 ####[facility]CL[facility] [id number] [place] [address] [place] THERAPY NTon 03-15-2023 THERAPY NT Normal [facility] THERAPY NT Normal [facility] XR CHEST 1V FRONTAL PORTon 0 03-15-2023 XR CHEST 1V FRONTAL PORT Normal [facility] aPTT PPPon 03-15-2023 aPTT Coag (PPP) [Time] 66.3 s High 23.0-32.4 [facility] Comment on above: Order Comment: Speci men Type: BLOOD SPECIMENOrdering Facility: [facility] Address: [address] [place] [address] Performed By: #### 3 4528-0, 67089-1 ####[facility]CL[facility] [id number] [place] [address] [place] ANES POSTPROC EVALon 023 ANES POSTPROC EVAL Normal [facility] ANES PRE-OPon 03-14-2023 ANES PRE-OP Normal [facility] ARTERIAL BLOOD GASESon 03-14 Base deficit (BldA) [Moles/Vol] -8 mmol/L Low -2-0 [facility] Comment on above: Order Comment: Speci men Type: ARTERIAL BLOOD SPECIMENOrdering Facility: [facility] Address: [address] [place] [address] Performed By: #### A LLBG ####[facility] [id number] [place] [address] [place] Body temperature 98.24 [degF] Normal [facility] Comment on above: Order Comment: Speci men Type: ARTERIAL BLOOD SPECIMENOrdering Facility: [facility] Address: [address] [place] [address] Performed By: #### A LLBG ####[facility]CL[facility] [id number] [place] [address] [place] Calcium.ionized (Bld) [Mass/Vol] 1.22 mmol/L Normal 1.08-1.30 [facility] Comment on above: Order Comment: Speci men Type: ARTERIAL BLOOD SPECIMENOrdering Facility: [facility] Address: [address] [place] [address] Performed By: #### A LLBG ####[facility] [id number] [place] [address] [place] Calcium.ionized adjusted to pH 7.4 (BldA) [Moles/Vol] 1.15 mmol/L Normal 1.08-1.30 [facility] Comment on above: Order Comment: Speci men Type: ARTERIAL BLOOD SPECIMENOrdering Facility: [facility] Address: [address] [place], [place] [address] Performed By: #### A LLBG ####[facility] [id number] [place] [address] [place] Carboxyhemoglobin (BldA) [Mass fraction] 1.1 % Normal 0.0-2.0 [facility] Comment on above: Order Comment: Speci men Type: ARTERIAL BLOOD SPECIMENOrdering Facility: [facility] Address: [address] [place] [address] Result Comment: Carb oxyhemoglobin Reference Range for Smokers: 2.0-8.0% Performed By: #### A LLBG ####[facility]CL[facility] [id number] [place] [address] [place] CO2 (Bld) [Partial pressure] 38 mm Hg Normal 36-46 [facility] Comment on above: Order Comment: Speci men Type: ARTERIAL BLOOD SPECIMENOrdering Facility: [facility] Address: [address] [place] [address] Performed By: #### A LLBG ####[facility] [id number] [place] [address] [place] CO2 [Moles/Vol] 19 mmol/L Low 22-28 [facility] Comment on above: Order Comment: Speci men Type: ARTERIAL BLOOD SPECIMENOrdering Facility: [facility] Address: [address] [place] [address] Performed By: #### A LLBG ####[facility]CL[facility] [id number] [place] [address] [place] CO2 adjusted to patient's actual temperature (Bld) [Partial pressure] 38 mmHg Normal 36-46 [facility] Comment on above: Order Comment: Speci men Type: ARTERIAL BLOOD SPECIMENOrdering Facility: [facility] Address: [address] [place] [address] Performed By: #### A LLBG ####[facility]CL[facility] [id number] [place] [address] [place] FIO2 40 % Normal [facility] Comment on above: Order Comment: Speci men Type: ARTERIAL BLOOD SPECIMENOrdering Facility: [facility] Address: [address] [place] [address] Performed By: #### A LLBG ####[facility]CL[facility] [id number] [place] [address] [place] Glucose [Mass/Vol] 169 mg/dL High 60-105 [facility] Comment on above: Order Comment: Speci men Type: ARTERIAL BLOOD SPECIMENOrdering Facility: [facility] Address: [address] [place], [place] [address] Performed By: #### A LLBG ####[facility]CL[facility] [id number] [place] [address] [place] HCO3 (Bld) [Moles/Vol] 18 mmol/L Low 22-26 [facility] Comment on above: Order Comment: Speci men Type: ARTERIAL BLOOD SPECIMENOrdering Facility: [facility] Address: [address] [place], [place] [address] Performed By: #### A LLBG ####[facility]CL[facility] [id number] [place] [address] [place] Hematocrit (Bld) [Volume fraction] 28.2 % Low 39.0-51.0 [facility] Comment on above: Order Comment: Speci men Type: ARTERIAL BLOOD SPECIMENOrdering Facility: [facility] Address: [address] [place] [id number] Performed By: #### A LLBG ####[facility]CL[facility] [id number] [place] [address] [place] Hemoglobin (Bld) [Mass/Vol] 9.1 g/dL Low 13.0-17.0 [facility] Comment on above: Order Comment: Speci men Type: ARTERIAL BLOOD SPECIMENOrdering Facility: [facility] Address: [address] [place], [place] [address] Performed By: #### A LLBG ####[facility]CL[facility] [id number] [place] [address] [place] Lactate [Moles/Vol] 1.2 mmol/L Normal 0.5-2.2 [facility] Comment on above: Order Comment: Speci men Type: ARTERIAL BLOOD SPECIMENOrdering Facility: [facility] Address: [address] Performed By: #### A LLBG ####[facility]CL[facility] [id number] [address] OF [facility] Methemoglobin (Bld) [Mass fraction] 1.3 % Normal 0.0-1.5 [facility] Comment on above: Order Comment: Speci men Type: ARTERIAL BLOOD SPECIMENOrdering Facility: [facility] Address: [address] Performed By: #### A LLBG ####[facility]CL[facility] [id number] [address] [place] O2 THERAPY Ventilator Normal [facility] Comment on above: Order Comment: Speci men Type: ARTERIAL BLOOD SPECIMENOrdering Facility: [facility] Address: [address] Performed By: #### A LLBG ####[facility] [id number] [address] [place] Oxygen (Bld) [Partial pressure] 187 mm Hg High 85-95 [facility] Comment on above: Order Comment: Speci men Type: ARTERIAL BLOOD SPECIMENOrdering Facility: [facility] Address: [address] [place] [address] Performed By: #### A LLBG ####[facility]CL[facility] [id number] [address] [place] Oxygen adjusted to patient's actual temperature (Bld) [Partial pressure] 186 mmHg High 85-95 [facility] Comment on above: Order Comment: Speci men Type: ARTERIAL BLOOD SPECIMENOrdering Facility: [facility] Address: [address] Performed By: #### A LLBG ####[facility]CL[facility] [id number] [place] [address] [place] Oxyhemoglobin (BldA) [Mass fraction] 97 % Normal 95-98 [facility] Comment on above: Order Comment: Speci men Type: ARTERIAL BLOOD SPECIMENOrdering Facility: [facility] Address: [address] [place], [place] [address] Performed By: #### A LLBG ####[facility]CL[facility] [id number] [place] [address] [place] pH (Bld) 7.29 [pH] Low 7.35-7.45 [facility] Comment on above: Order Comment: Speci men Type: ARTERIAL BLOOD SPECIMENOrdering Facility: [facility] Address: [address] [place], [place] [address] Performed By: #### A LLBG ####[facility] [id number] [place] [address] [place] pH adjusted to patient's actual temperature (Bld) 7.29 Low 7.35-7.45 [facility] Comment on above: Order Comment: Speci men Type: ARTERIAL BLOOD SPECIMENOrdering Facility: [facility] Address: [address] [place], [place] [address] Performed By: #### A LLBG ####[facility] [id number] [place] [address] [place] Potassium [Moles/Vol] 3.6 mmol/L Normal 3.5-5.[address] [facility] Comment on above: Order Comment: Speci men Type: ARTERIAL BLOOD SPECIMENOrdering Facility: [facility] Address: [address] [place], [place] [address] Performed By: #### A LLBG ####[facility] [id number] [place] [address] [place] Sodium [Moles/Vol] 144 mmol/L Normal 136-144 [facility] Comment on above: Order Comment: Speci men Type: ARTERIAL BLOOD SPECIMENOrdering Facility: [facility] Address: [address] [place], [place] [address] Performed By: #### A LLBG ####[facility] [id number] [place] [address] [place] Base deficit (BldA) [Moles/Vol] -14 mmol/L Low -2-0 [facility] Comment on above: Order Comment: Speci men Type: ARTERIAL BLOOD SPECIMENOrdering Facility: [facility] Address: [address] [place], [place] [address] Performed By: #### A LLBG ####[facility] [id number] [place] [address] [place] Calcium.ionized (Bld) [Mass/Vol] 1.20 mmol/L Normal 1.08-1.30 [facility] Comment on above: Order Comment: Speci men Type: ARTERIAL BLOOD SPECIMENOrdering Facility: [facility] Address: [address] [place], [place] [address] Performed By: #### A LLBG ####[facility] [id number] [place] [address] [place] Calcium.ionized adjusted to pH 7.4 (BldA) [Moles/Vol] 1.08 mmol/L Normal 1.08-1.30 [facility] Comment on above: Order Comment: Speci men Type: ARTERIAL BLOOD SPECIMENOrdering Facility: [facility] Address: [address] [place], [place] [address] Performed By: #### A LLBG ####[facility] [id number] [place] [address] [place] Carboxyhemoglobin (BldA) [Mass fraction] 0.8 % Normal 0.0-2.0 [facility] Comment on above: Order Comment: Speci men Type: ARTERIAL BLOOD SPECIMENOrdering Facility: [facility] Address: [address] Result Comment: Carb oxyhemoglobin Reference Range for Smokers: 2.0-8.0% Performed By: #### A LLBG ####[facility]CL[facility] [id number] [place] [address] [place] CO2 (Bld) [Partial pressure] 32 mm Hg Low 36-46 [facility] Comment on above: Order Comment: Speci men Type: ARTERIAL BLOOD SPECIMENOrdering Facility: [facility] Address: [address] [place] [address] Performed By: #### A LLBG ####[facility]CL[facility] [id number] [place] [address] [place] CO2 [Moles/Vol] 13 mmol/L Low 22-28 [facility] Comment on above: Order Comment: Speci men Type: ARTERIAL BLOOD SPECIMENOrdering Facility: [facility] Address: [address] [place] [address] Performed By: #### A LLBG ####[facility] [id number] [place] [address] [place] CO2 adjusted to patient's actual temperature (Bld) [Partial pressure] 32 mmHg Low 36-46 [facility] Comment on above: Order Comment: Speci men Type: ARTERIAL BLOOD SPECIMENOrdering Facility: [facility] Address: [address] Performed By: #### A LLBG ####[facility] [id number] [place] [address] [place] Glucose [Mass/Vol] 157 mg/dL High 60-105 [facility] Comment on above: Order Comment: Speci men Type: ARTERIAL BLOOD SPECIMENOrdering Facility: [facility] Address: [address] [place] [address] Performed By: #### A LLBG ####[facility] [id number] [place] [address] [place] HCO3 (Bld) [Moles/Vol] 12 mmol/L Low 22-26 [facility] Comment on above: Order Comment: Speci men Type: ARTERIAL BLOOD SPECIMENOrdering Facility: [facility] Address: [address] [place] [address] Performed By: #### A LLBG ####[facility]CL[facility] [id number] [place] [address] [place] Hematocrit (Bld) [Volume fraction] 33.9 % Low 39.0-51.0 [facility] Comment on above: Order Comment: Speci men Type: ARTERIAL BLOOD SPECIMENOrdering Facility: [facility] Address: [address] [place] [address] Performed By: #### A LLBG ####[facility] [id number] [place] [address] [place] Hemoglobin (Bld) [Mass/Vol] 11.0 g/dL Low 13.0-17.0 [facility] Comment on above: Order Comment: Speci men Type: ARTERIAL BLOOD SPECIMENOrdering Facility: [facility] Address: [address] [place] [address] Performed By: #### A LLBG ####[facility] [id number] [place] [address] [place] Lactate [Moles/Vol] 1.5 mmol/L Normal 0.5-2.2 [facility] Comment on above: Order Comment: Speci men Type: ARTERIAL BLOOD SPECIMENOrdering Facility: [facility] Address: [address] [place], [place] [address] Performed By: #### A LLBG ####[facility] [id number] [place] [address] [place] Methemoglobin (Bld) [Mass fraction] 1.1 % Normal 0.0-1.5 [facility] Comment on above: Order Comment: Speci men Type: ARTERIAL BLOOD SPECIMENOrdering Facility: [facility] Address: [address] Performed By: #### A LLBG ####[facility] [id number] [place] [address] [place] Oxygen (Bld) [Partial pressure] 279 mm Hg High 85-95 [facility] Comment on above: Order Comment: Speci men Type: ARTERIAL BLOOD SPECIMENOrdering Facility: [facility] Address: [address] Performed By: #### A LLBG ####[facility] [id number] [place] [address] [place] Oxygen adjusted to patient's actual temperature (Bld) [Partial pressure] 279 mmHg High 85-95 [facility] Comment on above: Order Comment: Speci men Type: ARTERIAL BLOOD SPECIMENOrdering Facility: [facility] Address: [address] Performed By: #### A LLBG ####[facility] [id number] [place] [address] [place] Oxyhemoglobin (BldA) [Mass fraction] 97 % Normal 95-98 [facility] Comment on above: Order Comment: Speci men Type: ARTERIAL BLOOD SPECIMENOrdering Facility: [facility] Address: [address] Performed By: #### A LLBG ####[facility] [id number] [place] [address] [place] pH (Bld) 7.21 [pH] Low 7.35-7.45 [facility] Comment on above: Order Comment: Speci men Type: ARTERIAL BLOOD SPECIMENOrdering Facility: [facility] Address: [address] Performed By: #### A LLBG ####[facility] [id number] [place] [address] [place] pH adjusted to patient's actual temperature (Bld) 7.21 Low 7.35-7.45 [facility] Comment on above: Order Comment: Speci men Type: ARTERIAL BLOOD SPECIMENOrdering Facility: [facility] Address: [address] [place] [address] Performed By: #### A LLBG ####[facility] [id number] [place] [address] [place] Potassium [Moles/Vol] 4.2 mmol/L Normal 3.5-5.[address] [facility] Comment on above: Order Comment: Speci men Type: ARTERIAL BLOOD SPECIMENOrdering Facility: [facility] Address: [address] [place] [address] Performed By: #### A LLBG ####[facility] [id number] [place] [address] [place] Sodium [Moles/Vol] 139 mmol/L Normal 136-144 [facility] Comment on above: Order Comment: Speci men Type: ARTERIAL BLOOD SPECIMENOrdering Facility: [facility] Address: [address] [place], [place] [address] Performed By: #### A LLBG ####[facility] [id number] [place] [address] [place] ARTERIAL BLOOD GASES WITH IO NIZED MAGNESIUMon 03-14-2023 Base deficit (BldA) [Moles/Vol] -11 mmol/L Low -2-0 [facility] Comment on above: Order Comment: Speci men Type: ARTERIAL BLOOD SPECIMENOrdering Facility: [facility] Address: [address] [place], [place] [address] Performed By: #### A LLMG ####[facility] [id number] [place] [address] [place] Calcium.ionized (Bld) [Mass/Vol] 1.14 mmol/L Normal 1.08-1.30 [facility] Comment on above: Order Comment: Speci men Type: ARTERIAL BLOOD SPECIMENOrdering Facility: [facility] Address: [address] [place] [address] Performed By: #### A LLMG ####[facility] [id number] [place] [address] [place] Calcium.ionized adjusted to pH 7.4 (BldA) [Moles/Vol] 1.05 mmol/L Low 1.08-1.30 [facility] Comment on above: Order Comment: Speci men Type: ARTERIAL BLOOD SPECIMENOrdering Facility: [facility] Address: [address] [place] [address] Performed By: #### A LLMG ####[facility] [id number] [address] [place] Carboxyhemoglobin (BldA) [Mass fraction] 1.0 % Normal 0.0-2.0 [facility] Comment on above: Order Comment: Speci men Type: ARTERIAL BLOOD SPECIMENOrdering Facility: [facility] Address: [address] [place] [address] Result Comment: Carb oxyhemoglobin Reference Range for Smokers: 2.0-8.0% Performed By: #### A LLMG ####[facility] [id number] [place] [address] [place] CO2 (Bld) [Partial pressure] 35 mm Hg Low 36-46 [facility] Comment on above: Order Comment: Speci men Type: ARTERIAL BLOOD SPECIMENOrdering Facility: [facility] Address: [address] [place], [place] [address] Performed By: #### A LLMG ####[facility] [id number] [place] [address] [place] CO2 [Moles/Vol] 16 mmol/L Low 22-28 [facility] Comment on above: Order Comment: Speci men Type: ARTERIAL BLOOD SPECIMENOrdering Facility: [facility] Address: [address] Performed By: #### A LLMG ####[facility] [id number] [place] [address] [place] CO2 adjusted to patient's actual temperature (Bld) [Partial pressure] 35 mmHg Low 36-46 [facility] Comment on above: Order Comment: Speci men Type: ARTERIAL BLOOD SPECIMENOrdering Facility: [facility] Address: [address] Performed By: #### A LLMG ####[facility] [id number] [place] [address] [place] Glucose [Mass/Vol] 160 mg/dL High 60-105 [facility] Comment on above: Order Comment: Speci men Type: ARTERIAL BLOOD SPECIMENOrdering Facility: [facility] Address: [address] Performed By: #### A LLMG ####[facility] LABCLIA [id number] [place] [address] [place] HCO3 (Bld) [Moles/Vol] 15 mmol/L Low 22-26 [facility] Comment on above: Order Comment: Speci men Type: ARTERIAL BLOOD SPECIMENOrdering Facility: [facility] Address: [address] Performed By: #### A LLMG ####[facility] LABCLIA [id number] [place] [address] [place] Hematocrit (Bld) [Volume fraction] 26.7 % Low 39.0-51.0 [facility] Comment on above: Order Comment: Speci men Type: ARTERIAL BLOOD SPECIMENOrdering Facility: [facility] Address: [address] Performed By: #### A LLMG ####[facility] LABIA [id number] [place] [address] [place] Hemoglobin (Bld) [Mass/Vol] 8.6 g/dL Low 13.0-17.0 [facility] Comment on above: Order Comment: Speci men Type: ARTERIAL BLOOD SPECIMENOrdering Facility: [facility] Address: [address] [place] [address] Performed By: #### A LLMG ####[facility] LABIA [id number] [place] [address] [place] Lactate [Moles/Vol] 1.3 mmol/L Normal 0.5-2.2 [facility] Comment on above: Order Comment: Speci men Type: ARTERIAL BLOOD SPECIMENOrdering Facility: [facility] Address: [address] [place] [address] Performed By: #### A LLMG ####[facility] LABIA [id number] [place] [address] [place] Magnesium [Moles/Vol] 0.52 mmol/L Normal 0.45-0.60 [facility] Comment on above: Order Comment: Speci men Type: ARTERIAL BLOOD SPECIMENOrdering Facility: [facility] Address: [address] [place] [address] Performed By: #### A LLMG ####[facility] LABIA [id number] [place] [address] [place] Methemoglobin (Bld) [Mass fraction] 1.2 % Normal 0.0-1.5 [facility] Comment on above: Order Comment: Speci men Type: ARTERIAL BLOOD SPECIMENOrdering Facility: [facility] Address: [address] [place] [address] Performed By: #### A LLMG ####[facility] LABIA [id number] [place] [address] [place] Oxygen (Bld) [Partial pressure] 235 mm Hg High 85-95 [facility] Comment on above: Order Comment: Speci men Type: ARTERIAL BLOOD SPECIMENOrdering Facility: [facility] Address: [address] [place] [address] Performed By: #### A LLMG ####[facility] LABCLIA [id number] [place] [address] [place] Oxygen adjusted to patient's actual temperature (Bld) [Partial pressure] 235 mmHg High 85-95 [facility] Comment on above: Order Comment: Speci men Type: ARTERIAL BLOOD SPECIMENOrdering Facility: [facility] Address: [address] [place], [place] [address] Performed By: #### A LLMG ####[facility] LABCLIA [id number] [place] [address] [place] Oxyhemoglobin (BldA) [Mass fraction] 97 % Normal 95-98 [facility] Comment on above: Order Comment: Speci men Type: ARTERIAL BLOOD SPECIMENOrdering Facility: [facility] Address: [address] [place], [place] [address] Performed By: #### A LLMG ####[facility] LABCLIA [id number] [place] [address] [place] pH (Bld) 7.26 [pH] Low 7.35-7.45 [facility] Comment on above: Order Comment: Speci men Type: ARTERIAL BLOOD SPECIMENOrdering Facility: [facility] Address: [address] [place] [address] Performed By: #### A LLMG ####[facility] LABCLIA [id number] [place] [address] [place] pH adjusted to patient's actual temperature (Bld) 7.26 Low 7.35-7.45 [facility] Comment on above: Order Comment: Speci men Type: ARTERIAL BLOOD SPECIMENOrdering Facility: [facility] Address: [address] [place] [address] Performed By: #### A LLMG ####[facility] LABIA [id number] [place] [address] [place] Potassium [Moles/Vol] 3.9 mmol/L Normal 3.5-5.[address] [facility] Comment on above: Order Comment: Speci men Type: ARTERIAL BLOOD SPECIMENOrdering Facility: [facility] Address: [address] Performed By: #### A LLMG ####[facility] LABIA [id number] [place] [address] [place] Sodium [Moles/Vol] 142 mmol/L Normal 136-144 [facility] Comment on above: Order Comment: Speci men Type: ARTERIAL BLOOD SPECIMENOrdering Facility: [facility] Address: [address] Performed By: #### A LLMG ####[facility] LABIA [id number] [place] [address] [place] Base deficit (BldA) [Moles/Vol] -12 mmol/L Low -2-0 [facility] Comment on above: Order Comment: Speci men Type: ARTERIAL BLOOD SPECIMENOrdering Facility: [facility] Address: [address] [place], [place] Performed By: #### A LLMG ####[facility] LABIA [id number] [place] [address] [place] Calcium.ionized (Bld) [Mass/Vol] 1.14 mmol/L Normal 1.08-1.30 [facility] Comment on above: Order Comment: Speci men Type: ARTERIAL BLOOD SPECIMENOrdering Facility: [facility] Address: [address] [place] [address] Performed By: #### A LLMG ####[facility] LABIA [id number] [place] [address] [place] Calcium.ionized adjusted to pH 7.4 (BldA) [Moles/Vol] 1.04 mmol/L Low 1.08-1.30 [facility] Comment on above: Order Comment: Speci men Type: ARTERIAL BLOOD SPECIMENOrdering Facility: [facility] Address: [address] [place] [address] Performed By: #### A LLMG ####[facility] LABCLIA [id number] [address] [place] Carboxyhemoglobin (BldA) [Mass fraction] 0.9 % Normal 0.0-2.0 [facility] Comment on above: Order Comment: Speci men Type: ARTERIAL BLOOD SPECIMENOrdering Facility: [facility] Address: [address] [place] [address] Result Comment: Carb oxyhemoglobin Reference Range for Smokers: 2.0-8.0% Performed By: #### A LLMG ####[facility] LABCLIA [id number] [address] [place] CO2 (Bld) [Partial pressure] 33 mm Hg Low 36-46 [facility] Comment on above: Order Comment: Speci men Type: ARTERIAL BLOOD SPECIMENOrdering Facility: [facility] Address: [address] [place], [place] [address] Performed By: #### A LLMG ####[facility] LABCLIA [id number] [place] [address] [place] CO2 [Moles/Vol] 15 mmol/L Low 22-28 [facility] Comment on above: Order Comment: Speci men Type: ARTERIAL BLOOD SPECIMENOrdering Facility: [facility] Address: [address] [place], [place] [address] Performed By: #### A LLMG ####[facility] LABCLIA [id number] [address] [place] CO2 adjusted to patient's actual temperature (Bld) [Partial pressure] 33 mmHg Low 36-46 [facility] Comment on above: Order Comment: Speci men Type: ARTERIAL BLOOD SPECIMENOrdering Facility: [facility] Address: [address] Performed By: #### A LLMG ####[facility] LABCLIA [id number] [place] [address] [place] Glucose [Mass/Vol] 165 mg/dL High 60-105 [facility] Comment on above: Order Comment: Speci men Type: ARTERIAL BLOOD SPECIMENOrdering Facility: [facility] Address: [address] Performed By: #### A LLMG ####[facility] LABCLIA [id number] [place] [address] [place] HCO3 (Bld) [Moles/Vol] 14 mmol/L Low 22-26 [facility] Comment on above: Order Comment: Speci men Type: ARTERIAL BLOOD SPECIMENOrdering Facility: [facility] Address: [address] Performed By: #### A LLMG ####[facility] LABIA [id number] [place] [address] [place] Hematocrit (Bld) [Volume fraction] 31.0 % Low 39.0-51.0 [facility] Comment on above: Order Comment: Speci men Type: ARTERIAL BLOOD SPECIMENOrdering Facility: [facility] Address: [address] Performed By: #### A LLMG ####[facility] LABCLIA [id number] [place] [address] [place] Hemoglobin (Bld) [Mass/Vol] 10.0 g/dL Low 13.0-17.0 [facility] Comment on above: Order Comment: Speci men Type: ARTERIAL BLOOD SPECIMENOrdering Facility: [facility] Address: [address] Performed By: #### A LLMG ####[facility] LABCLIA [id number] [place] [address] [place] Lactate [Moles/Vol] 2.1 mmol/L Normal 0.5-2.2 [facility] Comment on above: Order Comment: Speci men Type: ARTERIAL BLOOD SPECIMENOrdering Facility: [facility] Address: [address] [place], [place] [address] Performed By: #### A LLMG ####[facility] LABIA [id number] [place] [address] [place] Magnesium [Moles/Vol] 0.56 mmol/L Normal 0.45-0.60 [facility] Comment on above: Order Comment: Speci men Type: ARTERIAL BLOOD SPECIMENOrdering Facility: [facility] Address: [address] [place], [place] [address] Performed By: #### A LLMG ####[facility] LABIA [id number] [place] [address] [place] Methemoglobin (Bld) [Mass fraction] 1.1 % Normal 0.0-1.5 [facility] Comment on above: Order Comment: Speci men Type: ARTERIAL BLOOD SPECIMENOrdering Facility: [facility] Address: [address] [place], [place] [address] Performed By: #### A LLMG ####[facility] LABIA [id number] [place] [address] [place] Oxygen (Bld) [Partial pressure] 249 mm Hg High 85-95 [facility] Comment on above: Order Comment: Speci men Type: ARTERIAL BLOOD SPECIMENOrdering Facility: [facility] Address: [address] [place], [place] [address] Performed By: #### A LLMG ####[facility] LABIA [id number] [place] [address] [place] Oxygen adjusted to patient's actual temperature (Bld) [Partial pressure] 249 mmHg High 85-95 [facility] Comment on above: Order Comment: Speci men Type: ARTERIAL BLOOD SPECIMENOrdering Facility: [facility] Address: [address] [place] [address] Performed By: #### A LLMG ####[facility] LABCLIA [id number] [place] [address] [place] Oxyhemoglobin (BldA) [Mass fraction] 97 % Normal 95-98 [facility] Comment on above: Order Comment: Speci men Type: ARTERIAL BLOOD SPECIMENOrdering Facility: [facility] Address: [address] [place], [place] [address] Performed By: #### A LLMG ####[facility] LABCLIA [id number] [place] [address] [place] pH (Bld) 7.25 [pH] Low 7.35-7.45 [facility] Comment on above: Order Comment: Speci men Type: ARTERIAL BLOOD SPECIMENOrdering Facility: [facility] Address: [address] [place], [place] [address] Performed By: #### A LLMG ####[facility] LABCLIA [id number] [place] [address] [place] pH adjusted to patient's actual temperature (Bld) 7.25 Low 7.35-7.45 [facility] Comment on above: Order Comment: Speci men Type: ARTERIAL BLOOD SPECIMENOrdering Facility: [facility] Address: [address] [place], [place] [address] Performed By: #### A LLMG ####[facility] LABCLIA [id number] [place] [address] [place] Potassium [Moles/Vol] 4.0 mmol/L Normal 3.5-5.[address] [facility] Comment on above: Order Comment: Speci men Type: ARTERIAL BLOOD SPECIMENOrdering Facility: [facility] Address: [address] [place] [address] Performed By: #### A LLMG ####[facility] LABIA [id number] [place] [address] [place] Sodium [Moles/Vol] 139 mmol/L Normal 136-144 [facility] Comment on above: Order Comment: Speci men Type: ARTERIAL BLOOD SPECIMENOrdering Facility: [facility] Address: [address] Performed By: #### A LLMG ####[facility] LABIA [id number] [address] [place] Base deficit (BldA) [Moles/Vol] -11 mmol/L Low -2-0 [facility] Comment on above: Order Comment: Speci men Type: ARTERIAL BLOOD SPECIMENOrdering Facility: [facility] Address: [address] [place], [place] [address] Performed By: #### A LLMG ####[facility] LABIA [id number] [place] [address] [place] Calcium.ionized (Bld) [Mass/Vol] 1.30 mmol/L Normal 1.08-1.30 [facility] Comment on above: Order Comment: Speci men Type: ARTERIAL BLOOD SPECIMENOrdering Facility: [facility] Address: [address] [place] [address] Performed By: #### A LLMG ####[facility] LABIA [id number] [place] [address] [place] Calcium.ionized adjusted to pH 7.4 (BldA) [Moles/Vol] 1.21 mmol/L Normal 1.08-1.30 [facility] Comment on above: Order Comment: Speci men Type: ARTERIAL BLOOD SPECIMENOrdering Facility: [facility] Address: [address] [place], [place] [address] Performed By: #### A LLMG ####[facility] LABIA [id number] [place] [address] [place] Carboxyhemoglobin (BldA) [Mass fraction] 1.1 % Normal 0.0-2.0 [facility] Comment on above: Order Comment: Speci men Type: ARTERIAL BLOOD SPECIMENOrdering Facility: [facility] Address: [address] [place] [address] Result Comment: Carb oxyhemoglobin Reference Range for Smokers: 2.0-8.0% Performed By: #### A LLMG ####[facility] LAB[facility] [id number] [place] [address] [place] CO2 (Bld) [Partial pressure] 32 mm Hg Low 36-46 [facility] Comment on above: Order Comment: Speci men Type: ARTERIAL BLOOD SPECIMENOrdering Facility: [facility] Address: [address] [place] [address] Performed By: #### A LLMG ####[facility] LABIA [id number] [place] [address] [place] CO2 [Moles/Vol] 15 mmol/L Low 22-28 [facility] Comment on above: Order Comment: Speci men Type: ARTERIAL BLOOD SPECIMENOrdering Facility: [facility] Address: [address] [place] [address] Performed By: #### A LLMG ####[facility] LABIA [id number] [place] [address] [place] CO2 adjusted to patient's actual temperature (Bld) [Partial pressure] 32 mmHg Low 36-46 [facility] Comment on above: Order Comment: Speci men Type: ARTERIAL BLOOD SPECIMENOrdering Facility: [facility] Address: [address] [place] [address] Performed By: #### A LLMG ####[facility] LABIA [id number] [place] [address] [place] Glucose [Mass/Vol] 124 mg/dL High 60-105 [facility] Comment on above: Order Comment: Speci men Type: ARTERIAL BLOOD SPECIMENOrdering Facility: [facility] Address: [address] [place], [place] [address] Performed By: #### A LLMG ####[facility] LABIA [id number] [place] [address] [place] HCO3 (Bld) [Moles/Vol] 14 mmol/L Low 22-26 [facility] Comment on above: Order Comment: Speci men Type: ARTERIAL BLOOD SPECIMENOrdering Facility: [facility] Address: [address] [place], [place] [address] Performed By: #### A LLMG ####[facility] LABIA [id number] [place] [address] [place] Hematocrit (Bld) [Volume fraction] 40.2 % Normal 39.0-51.0 [facility] Comment on above: Order Comment: Speci men Type: ARTERIAL BLOOD SPECIMENOrdering Facility: [facility] Address: [address] [place], [place] [address] Performed By: #### A LLMG ####[facility] LABIA [id number] [place] [address] [place] Hemoglobin (Bld) [Mass/Vol] 13.1 g/dL Normal 13.0-17.0 [facility] Comment on above: Order Comment: Speci men Type: ARTERIAL BLOOD SPECIMENOrdering Facility: [facility] Address: [address] Performed By: #### A LLMG ####[facility] LABIA [id number] [place] [address] [place] Lactate [Moles/Vol] 1.5 mmol/L Normal 0.5-2.2 [facility] Comment on above: Order Comment: Speci men Type: ARTERIAL BLOOD SPECIMENOrdering Facility: [facility] Address: [address] [place], [place] [address] Performed By: #### A LLMG ####[facility] LABCLIA [id number] [place] [address] [place] Magnesium [Moles/Vol] 0.79 mmol/L High 0.45-0.60 [facility] Comment on above: Order Comment: Speci men Type: ARTERIAL BLOOD SPECIMENOrdering Facility: [facility] Address: [address] [place] [address] Performed By: #### A LLMG ####[facility] LABCLIA [id number] [place] [address] [place] Methemoglobin (Bld) [Mass fraction] 0.9 % Normal 0.0-1.5 [facility] Comment on above: Order Comment: Speci men Type: ARTERIAL BLOOD SPECIMENOrdering Facility: [facility] Address: [address] [place], [place] [address] Performed By: #### A LLMG ####[facility] LABIA [id number] [place] [address] [place] Oxygen (Bld) [Partial pressure] 233 mm Hg High 85-95 [facility] Comment on above: Order Comment: Speci men Type: ARTERIAL BLOOD SPECIMENOrdering Facility: [facility] Address: [address] [place] [address] Performed By: #### A LLMG ####[facility] LABCLIA [id number] [place] [address] [place] Oxygen adjusted to patient's actual temperature (Bld) [Partial pressure] 233 mmHg High 85-95 [facility] Comment on above: Order Comment: Speci men Type: ARTERIAL BLOOD SPECIMENOrdering Facility: [facility] Address: [address] [place] [address] Performed By: #### A LLMG ####[facility] LABCLIA [id number] [place] [address] [place] Oxyhemoglobin (BldA) [Mass fraction] 98 % Normal 95-98 [facility] Comment on above: Order Comment: Speci men Type: ARTERIAL BLOOD SPECIMENOrdering Facility: [facility] Address: [address] [place], [place] [address] Performed By: #### A LLMG ####[facility] LABCLIA [id number] [place] [address] [place] pH (Bld) 7.28 [pH] Low 7.35-7.45 [facility] Comment on above: Order Comment: Speci men Type: ARTERIAL BLOOD SPECIMENOrdering Facility: [facility] Address: [address] [place], [place] [address] Performed By: #### A LLMG ####[facility] LABCLIA [id number] [address] [place] pH adjusted to patient's actual temperature (Bld) 7.28 Low 7.35-7.45 [facility] Comment on above: Order Comment: Speci men Type: ARTERIAL BLOOD SPECIMENOrdering Facility: [facility] Address: [address] [place], [place] [address] Performed By: #### A LLMG ####[facility] LABIA [id number] [place] [address] [place] Potassium [Moles/Vol] 4.3 mmol/L Normal 3.5-5.[address] [facility] Comment on above: Order Comment: Speci men Type: ARTERIAL BLOOD SPECIMENOrdering Facility: [facility] Address: [address] [place], [place] [address] Performed By: #### A LLMG ####[facility] LABIA [id number] [place] [address] [place] Sodium [Moles/Vol] 137 mmol/L Normal 136-144 [facility] Comment on above: Order Comment: Speci men Type: ARTERIAL BLOOD SPECIMENOrdering Facility: [facility] Address: [address] Performed By: #### A LLMG ####[facility] [id number] [address] [place] Base deficit (BldA) [Moles/Vol] -11 mmol/L Low -2-0 [facility] Comment on above: Order Comment: Speci men Type: ARTERIAL BLOOD SPECIMENOrdering Facility: [facility] Address: [address] Performed By: #### A LLMG ####[facility] [id number] [place] [address] [place] Calcium.ionized (Bld) [Mass/Vol] 1.49 mmol/L High 1.08-1.30 [facility] Comment on above: Order Comment: Speci men Type: ARTERIAL BLOOD SPECIMENOrdering Facility: [facility] Address: [address] Performed By: #### A LLMG ####[facility] [id number] [place] [address] [place] Calcium.ionized adjusted to pH 7.4 (BldA) [Moles/Vol] 1.38 mmol/L High 1.08-1.30 [facility] Comment on above: Order Comment: Speci men Type: ARTERIAL BLOOD SPECIMENOrdering Facility: [facility] Address: [address] [place] [address] Performed By: #### A LLMG ####[facility] [id number] [place] [address] [place] Carboxyhemoglobin (BldA) [Mass fraction] 1.0 % Normal 0.0-2.0 [facility] Comment on above: Order Comment: Speci men Type: ARTERIAL BLOOD SPECIMENOrdering Facility: [facility] Address: [address] [place], [place] [address] Result Comment: Carb oxyhemoglobin Reference Range for Smokers: 2.0-8.0% Performed By: #### A LLMG ####[facility] LABCL[facility] [id number] [place] [address] [place] CO2 (Bld) [Partial pressure] 34 mm Hg Low 36-46 [facility] Comment on above: Order Comment: Speci men Type: ARTERIAL BLOOD SPECIMENOrdering Facility: [facility] Address: [address] [place], [place] [address] Performed By: #### A LLMG ####[facility] LABCLIA [id number] [place] [address] [place] CO2 [Moles/Vol] 16 mmol/L Low 22-28 [facility] Comment on above: Order Comment: Speci men Type: ARTERIAL BLOOD SPECIMENOrdering Facility: [facility] Address: [address] [place] [address] Performed By: #### A LLMG ####[facility] LABCLIA [id number] [place] [address] [place] CO2 adjusted to patient's actual temperature (Bld) [Partial pressure] 34 mmHg Low 36-46 [facility] Comment on above: Order Comment: Speci men Type: ARTERIAL BLOOD SPECIMENOrdering Facility: [facility] Address: [address] [place], [place] [address] Performed By: #### A LLMG ####[facility] LABCL[facility] [id number] [place] [address] [place] Glucose [Mass/Vol] 121 mg/dL High 60-105 [facility] Comment on above: Order Comment: Speci men Type: ARTERIAL BLOOD SPECIMENOrdering Facility: [facility] Address: [address] [place], [place] [address] Performed By: #### A LLMG ####[facility] LABCL[facility] [id number] [place] [address] [place] HCO3 (Bld) [Moles/Vol] 15 mmol/L Low 22-26 [facility] Comment on above: Order Comment: Speci men Type: ARTERIAL BLOOD SPECIMENOrdering Facility: [facility] Address: [address] [place], [place] [address] Performed By: #### A LLMG ####[facility] LABIA [id number] [place] [address] [place] Hematocrit (Bld) [Volume fraction] 43.3 % Normal 39.0-51.0 [facility] Comment on above: Order Comment: Speci men Type: ARTERIAL BLOOD SPECIMENOrdering Facility: [facility] Address: [address] [place] [address] Performed By: #### A LLMG ####[facility] [id number] [place] [address] [place] Hemoglobin (Bld) [Mass/Vol] 14.1 g/dL Normal 13.0-17.0 [facility] Comment on above: Order Comment: Speci men Type: ARTERIAL BLOOD SPECIMENOrdering Facility: [facility] Address: [address] [place], [place] [address] Performed By: #### A LLMG ####[facility]IA [id number] [place] [address] [place] Lactate [Moles/Vol] 1.4 mmol/L Normal 0.5-2.2 [facility] Comment on above: Order Comment: Speci men Type: ARTERIAL BLOOD SPECIMENOrdering Facility: [facility] Address: [address] Performed By: #### A LLMG ####[facility] [id number] [place] [address] [place] Magnesium [Moles/Vol] 1.26 mmol/L High 0.45-0.60 [facility] Comment on above: Order Comment: Speci men Type: ARTERIAL BLOOD SPECIMENOrdering Facility: [facility] Address: [address] [place] [address] [place] [address] Performed By: #### A LLMG ####[facility] [id number] [address] Methemoglobin (Bld) [Mass fraction] 1.0 % Normal 0.0-1.5 [facility] Comment on above: Order Comment: Speci men Type: ARTERIAL BLOOD SPECIMENOrdering Facility: [facility] Address: [address] [id number] Performed By: #### A LLMG ####[facility] [id number] [address] [place] Oxygen (Bld) [Partial pressure] 237 mm Hg High 85-95 [facility] Comment on above: Order Comment: Speci men Type: ARTERIAL BLOOD SPECIMENOrdering Facility: [facility] Address: [address] [place] [address] Performed By: #### A LLMG ####[facility] [id number] [address] Oxygen adjusted to patient's actual temperature (Bld) [Partial pressure] 237 mmHg High 85-95 [facility] Comment on above: Order Comment: Speci men Type: ARTERIAL BLOOD SPECIMENOrdering Facility: [facility] Address: [address] [place], [place] Performed By: #### A LLMG ####[facility] [id number] [place] [address] [place] Oxyhemoglobin (BldA) [Mass fraction] 97 % Normal 95-98 [facility] Comment on above: Order Comment: Speci men Type: ARTERIAL BLOOD SPECIMENOrdering Facility: [facility] Address: [address] [place] [address] Performed By: #### A LLMG ####[facility] [id number] [place] [address] [place] pH (Bld) 7.26 [pH] Low 7.35-7.45 [facility] Comment on above: Order Comment: Speci men Type: ARTERIAL BLOOD SPECIMENOrdering Facility: [facility] Address: [address] [place], [place] [address] Performed By: #### A LLMG ####[facility] LABCLIA [id number] [address] [place] pH adjusted to patient's actual temperature (Bld) 7.26 Low 7.35-7.45 [facility] Comment on above: Order Comment: Speci men Type: ARTERIAL BLOOD SPECIMENOrdering Facility: [facility] Address: [address] [place], [place] [address] Performed By: #### A LLMG ####[facility] [id number] [place] [address] [place] Potassium [Moles/Vol] 3.2 mmol/L Low 3.5-5.[address] [facility] Comment on above: Order Comment: Speci men Type: ARTERIAL BLOOD SPECIMENOrdering Facility: [facility] Address: [address] [place], [place] [address] Performed By: #### A LLMG ####[facility] LABCLIA [id number] [place] [address] [place] Sodium [Moles/Vol] 135 mmol/L Low 136-144 [facility] Comment on above: Order Comment: Speci men Type: ARTERIAL BLOOD SPECIMENOrdering Facility: [facility] Address: [address] [place], [place] [address] Performed By: #### A LLMG ####[facility] LABCLIA [id number] [place] [address] [place] Base deficit (BldA) [Moles/Vol] -13 mmol/L Low -2-0 [facility] Comment on above: Order Comment: Speci men Type: ARTERIAL BLOOD SPECIMENOrdering Facility: [facility] Address: [address] [address] Performed By: #### A LLMG ####[facility] [id number] [place] [address] [place] Calcium.ionized (Bld) [Mass/Vol] 1.13 mmol/L Normal 1.08-1.30 [facility] Comment on above: Order Comment: Speci men Type: ARTERIAL BLOOD SPECIMENOrdering Facility: [facility] Address: [address] [place] [address] Performed By: #### A LLMG ####[facility] [id number] [place] [address] [place] Calcium.ionized adjusted to pH 7.4 (BldA) [Moles/Vol] 1.02 mmol/L Low 1.08-1.30 [facility] Comment on above: Order Comment: Speci men Type: ARTERIAL BLOOD SPECIMENOrdering Facility: [facility] Address: [address] [place] [address] Performed By: #### A LLMG ####[facility] [id number] [place] [address] [place] Carboxyhemoglobin (BldA) [Mass fraction] 0.6 % Normal 0.0-2.0 [facility] Comment on above: Order Comment: Speci men Type: ARTERIAL BLOOD SPECIMENOrdering Facility: [facility] Address: [address] [place], [place] [address] Result Comment: Carb oxyhemoglobin Reference Range for Smokers: 2.0-8.0% Performed By: #### A LLMG ####[facility] [id number] [place] [address] [place] CO2 (Bld) [Partial pressure] 36 mm Hg Normal 36-46 [facility] Comment on above: Order Comment: Speci men Type: ARTERIAL BLOOD SPECIMENOrdering Facility: [facility] Address: [address] [place], [place] [address] Performed By: #### A LLMG ####[facility] LABCLIA [id number] [address] [place] CO2 [Moles/Vol] 15 mmol/L Low 22-28 [facility] Comment on above: Order Comment: Speci men Type: ARTERIAL BLOOD SPECIMENOrdering Facility: [facility] Address: [address] [place], [place] [address] Performed By: #### A LLMG ####[facility] LABCLIA [id number] [place] [address] [place] CO2 adjusted to patient's actual temperature (Bld) [Partial pressure] 36 mmHg Normal 36-46 [facility] Comment on above: Order Comment: Speci men Type: ARTERIAL BLOOD SPECIMENOrdering Facility: [facility] Address: [address] [place], [place] [address] Performed By: #### A LLMG ####[facility]CL[facility] [id number] [place] [address] [place] Glucose [Mass/Vol] 154 mg/dL High 60-105 [facility] Comment on above: Order Comment: Speci men Type: ARTERIAL BLOOD SPECIMENOrdering Facility: [facility] Address: [address] [place], [place] [address] Performed By: #### A LLMG ####[facility] LABCL[facility] [id number] [place] [address] [place] HCO3 (Bld) [Moles/Vol] 14 mmol/L Low 22-26 [facility] Comment on above: Order Comment: Speci men Type: ARTERIAL BLOOD SPECIMENOrdering Facility: [facility] Address: [address] [place], [place] [address] Performed By: #### A LLMG ####[facility] LABCL[facility] [id number] [place] [address] [place] Hematocrit (Bld) [Volume fraction] 49.1 % Normal 39.0-51.0 [facility] Comment on above: Order Comment: Speci men Type: ARTERIAL BLOOD SPECIMENOrdering Facility: [facility] Address: [address] [place] [address] Performed By: #### A LLMG ####[facility] [id number] [address] [place] Hemoglobin (Bld) [Mass/Vol] 16.0 g/dL Normal 13.0-17.0 [facility] Comment on above: Order Comment: Speci men Type: ARTERIAL BLOOD SPECIMENOrdering Facility: [facility] Address: [address] [place] [address] Performed By: #### A LLMG ####[facility] [id number] [place] [address] [place] Lactate [Moles/Vol] 1.3 mmol/L Normal 0.5-2.2 [facility] Comment on above: Order Comment: Speci men Type: ARTERIAL BLOOD SPECIMENOrdering Facility: [facility] Address: [address] [place], [place] [address] Performed By: #### A LLMG ####[facility] [id number] [place] [address] [place] Magnesium [Moles/Vol] 0.43 mmol/L Low 0.45-0.60 [facility] Comment on above: Order Comment: Speci men Type: ARTERIAL BLOOD SPECIMENOrdering Facility: [facility] Address: [address] [place], [place] [address] Performed By: #### A LLMG ####[facility] [id number] [place] [address] [place] Methemoglobin (Bld) [Mass fraction] 1.4 % Normal 0.0-1.5 [facility] Comment on above: Order Comment: Speci men Type: ARTERIAL BLOOD SPECIMENOrdering Facility: [facility] Address: [address] [place], [place] Performed By: #### A LLMG ####[facility] LABCLIA [id number] [place] [address] [place] Oxygen (Bld) [Partial pressure] 238 mm Hg High 85-95 [facility] Comment on above: Order Comment: Speci men Type: ARTERIAL BLOOD SPECIMENOrdering Facility: [facility] Address: [address] [place] [address] Performed By: #### A LLMG ####[facility] [id number] [address] [place] Oxygen adjusted to patient's actual temperature (Bld) [Partial pressure] 238 mmHg High 85-95 [facility] Comment on above: Order Comment: Speci men Type: ARTERIAL BLOOD SPECIMENOrdering Facility: [facility] Address: [address] [place], [place] [address] Performed By: #### A LLMG ####[facility] [id number] [place] [address] [place] Oxyhemoglobin (BldA) [Mass fraction] 97 % Normal 95-98 [facility] Comment on above: Order Comment: Speci men Type: ARTERIAL BLOOD SPECIMENOrdering Facility: [facility] Address: [address] [place], [place] [address] Performed By: #### A LLMG ####[facility] [id number] [place] [address] [place] pH (Bld) 7.22 [pH] Low 7.35-7.45 [facility] Comment on above: Order Comment: Speci men Type: ARTERIAL BLOOD SPECIMENOrdering Facility: [facility] Address: [address] [place] [address] Performed By: #### A LLMG ####[facility] [id number] [place] [address] [place] pH adjusted to patient's actual temperature (Bld) 7.22 Low 7.35-7.45 [facility] Comment on above: Order Comment: Speci men Type: ARTERIAL BLOOD SPECIMENOrdering Facility: [facility] Address: [address] [place] [address] Performed By: #### A LLMG ####[facility] LABCLIA [id number] [address] [place] Potassium [Moles/Vol] 3.3 mmol/L Low 3.5-5.[address] [facility] Comment on above: Order Comment: Speci men Type: ARTERIAL BLOOD SPECIMENOrdering Facility: [facility] Address: [address] [place] [address] Performed By: #### A LLMG ####[facility] [id number] [address] [place] Sodium [Moles/Vol] 132 mmol/L Low 136-144 [facility] Comment on above: Order Comment: Speci men Type: ARTERIAL BLOOD SPECIMENOrdering Facility: [facility] Address: [address] [place], [place] [address] Performed By: #### A LLMG ####[facility] LABCL[facility] [id number] [place] [address] [place] BRIEF OP NOTon 03-14-2023 BRIEF OP NOT Normal [facility] CBC panel Auto (Bld)on 03-14 Erythrocyte distribution width (RBC) [Ratio] 12.5 % Normal 11.5-15.0 [facility] Comment on above: Order Comment: Speci men Type: BLOOD SPECIMENOrdering Facility: [facility] Address: [address] [place], [place] [address] Performed By: #### 5 8410-2 ####[facility]CL[facility] [id number] [address] [place] Hematocrit (Bld) [Volume fraction] 26.5 % Low 39.0-51.0 [facility] Comment on above: Order Comment: Speci men Type: BLOOD SPECIMENOrdering Facility: [facility] Address: [address] [place] [address] Performed By: #### 5 8410-2 ####[facility] LABCL[facility] [id number] [address] [place] [facility] Hemoglobin (Bld) [Mass/Vol] 8.9 g/dL Low 13.0-17.0 [facility] Comment on above: Order Comment: Speci men Type: BLOOD SPECIMENOrdering Facility: [facility] Address: [address] [place] [address] Performed By: #### 5 8410-2 ####[facility] LABCL[facility] [id number] [address] [place] MCH (RBC) [Entitic mass] 28.3 pg Normal 26.0-34.0 [facility] Comment on above: Order Comment: Speci men Type: BLOOD SPECIMENOrdering Facility: [facility] Address: [address] [place] [address] Performed By: #### 5 8410-2 ####[facility] [id number] [address] [place] MCHC (RBC) [Mass/Vol] 33.6 g/dL Normal 30.5-36.[address] [facility] Comment on above: Order Comment: Speci men Type: BLOOD SPECIMENOrdering Facility: [facility] Address: [address] [place], [place] [address] Performed By: #### 5 8410-2 ####[facility] LABCL[facility] [id number] [address] [place] MCV (RBC) [Entitic vol] 84.4 fL Normal 80.0-100.0 [facility] Comment on above: Order Comment: Speci men Type: BLOOD SPECIMENOrdering Facility: [facility] Address: [address] Performed By: #### 5 8410-2 ####[facility]CL[facility] [id number] [place] [address] [place] Nucleated RBC (Bld) [#/Vol] 10*3/uL Normal <0.01 [facility] Comment on above: Order Comment: Speci men Type: BLOOD SPECIMENOrdering Facility: [facility] Address: [address] Performed By: #### 5 8410-2 ####[facility]CL[facility] [id number] [place] [address] [place] Platelet mean volume (Bld) [Entitic vol] 9.5 fL Normal 9.0-12.7 [facility] Comment on above: Order Comment: Speci men Type: BLOOD SPECIMENOrdering Facility: [facility] Address: [address] Performed By: #### 5 8410-2 ####[facility]CL[facility] [id number] [place] [address] [place] Platelets (Bld) [#/Vol] 210 10*3/uL Normal 150-400 [facility] Comment on above: Order Comment: Speci men Type: BLOOD SPECIMENOrdering Facility: [facility] Address: [address] Performed By: #### 5 8410-2 ####[facility]CL[facility] [id number] [place] [address] [place] RBC (Bld) [#/Vol] 3.14 10*6/uL Low 4.20-6.00 [facility] Comment on above: Order Comment: Speci men Type: BLOOD SPECIMENOrdering Facility: [facility] Address: [address] Performed By: #### 5 8410-2 ####[facility]CL[facility] [id number] [place] [address] [place] WBC (Bld) [#/Vol] 8.31 10*3/uL Normal 3.70-11.00 [facility] Comment on above: Order Comment: Speci men Type: BLOOD SPECIMENOrdering Facility: [facility] Address: [address] [place] [address] Performed By: #### 5 8410-2 ####[facility] [id number] [place] [address] [place] CONSULT PROGon 03-14-2023 CONSULT PROG Normal [facility] CYSTATIN Con 03-14-2023 Cystatin C [Mass/Vol] 0.58 mg/L Low 0.61-0.[address] [facility] Comment on above: Order Comment: Speci men Type: BLOOD SPECIMENOrdering Facility: [facility] Address: [address] [place] [address] Performed By: #### 1 9123-9, 43865-3, CYSTC, HSTNT, 2777-1 ####[facility] [id number] [address] [place] CYSTATIN C EGFR 141 mL/min/1.73m??? Normal >=60 [facility] Comment on above: Order Comment: Speci men Type: BLOOD SPECIMENOrdering Facility: [facility] Address: [address] [place] [address] Result Comment: Mary mated Glomerular Filtration Rate [...] actual GFR. Performed By: #### 1 9123-9, 10373-9, CYSTC, HSTNT, 2777-1 ####[facility] [id number] [place] [address] [place] Comprehensive metabolic 2000 panelon 03-14-2023 Albumin [Mass/Vol] 4.5 g/dL Normal 3.9-4.9 [facility] Comment on above: Order Comment: Speci men Type: BLOOD SPECIMENOrdering Facility: [facility] Address: [address] [place], [place] [address] Performed By: #### 2 4323-8, 85182-5 ####[facility] [id number] [place] [address] [place] ALP [Catalytic activity/Vol] 25 U/L Low 38-113 [facility] Comment on above: Order Comment: Speci men Type: BLOOD SPECIMENOrdering Facility: [facility] Address: [address] [place] [address] Performed By: #### 2 4323-8, 54305-9 ####[facility] [id number] [place] [address] [place] ALT [Catalytic activity/Vol] 29 U/L Normal 10-54 [facility] Comment on above: Order Comment: Speci men Type: BLOOD SPECIMENOrdering Facility: [facility] Address: [address] [place], [place] [address] Performed By: #### 2 4323-8, 36299-9 ####[facility] [id number] [place] [address] [place] Anion gap [Moles/Vol] 19 mmol/L High 9-[address] [facility] Comment on above: Order Comment: Speci men Type: BLOOD SPECIMENOrdering Facility: [facility] Address: [address] [place] [address] Performed By: #### 2 4323-8, 48868-7 ####[facility] [id number] [place] [address] [place] AST [Catalytic activity/Vol] 44 U/L High 14-40 [facility] Comment on above: Order Comment: Speci men Type: BLOOD SPECIMENOrdering Facility: [facility] Address: [address] [place] [address] Performed By: #### 2 4323-8, 67343-3 ####[facility] [id number] [place] [address] [place] Bilirubin [Mass/Vol] 2.7 mg/dL High 0.2-1.3 [facility] Comment on above: Order Comment: Speci men Type: BLOOD SPECIMENOrdering Facility: [facility] Address: [address] [place], [place] [address] Performed By: #### 2 4323-8, 00817-0 ####[facility] [id number] [place] [address] [place] Calcium [Mass/Vol] 8.4 mg/dL Low 8.5-10.2 [facility] Comment on above: Order Comment: Speci men Type: BLOOD SPECIMENOrdering Facility: [facility] Address: [address] [place] [address] Performed By: #### 2 4323-8, 07266-9 ####[facility] [id number] [place] [address] [place] Chloride [Moles/Vol] 109 mmol/L High 97-105 [facility] Comment on above: Order Comment: Speci men Type: BLOOD SPECIMENOrdering Facility: [facility] Address: [address] [place], [place] [address] Performed By: #### 2 4323-8, 91822-0 ####[facility] [id number] [place] [address] [place] CO2 [Moles/Vol] 18 mmol/L Low 22-30 [facility] Comment on above: Order Comment: Speci men Type: BLOOD SPECIMENOrdering Facility: [facility] Address: [address] [place] [address] Performed By: #### 2 4323-8, 11110-6 ####[facility] [id number] [place] [address] [place] Creatinine [Mass/Vol] 0.48 mg/dL Low 0.73-1.[address] [facility] Comment on above: Order Comment: Speci men Type: BLOOD SPECIMENOrdering Facility: [facility] Address: [address] [place] [address] Performed By: #### 2 4323-8, 33498-5 ####[facility] [id number] [place] [address] [place] ESTIMATED GLOMERULAR FILTRATION RATE 147 mL/min/1.73m??? Normal >=60 [facility] Comment on above: Order Comment: Speci men Type: BLOOD SPECIMENOrdering Facility: [facility] Address: [address] [place] [address] Result Comment: Mary mated Glomerular Filtration Rate [...] actual GFR. Performed By: #### 2 4323-8, 90840-6 ####[facility] [id number] [place] [address] [place] Glucose [Mass/Vol] 172 mg/dL High 74-99 [facility] Comment on above: Order Comment: Speci men Type: BLOOD SPECIMENOrdering Facility: [facility] Address: [address] [place] [address] Result Comment: The [place] [employer] (ADA) provides guidance for cutoff [...] Standards of Medical Care in Diabetes 2016, [place] [employer]. Diabetes Care. 2016.39(Suppl 1). Performed By: #### 2 4323-8, 69948-9 ####[facility] [id number] [place] [address] [place] Potassium [Moles/Vol] 3.9 mmol/L Normal 3.7-5.[address] [facility] Comment on above: Order Comment: Speci men Type: BLOOD SPECIMENOrdering Facility: [facility] Address: [address] [address] Performed By: #### 2 4323-8, 30693-5 ####[facility] [id number] [place] [address] [place] Protein [Mass/Vol] 5.1 g/dL Low 6.3-8.0 [facility] Comment on above: Order Comment: Speci men Type: BLOOD SPECIMENOrdering Facility: [facility] Address: [address] Performed By: #### 2 4323-8, 64212-6 ####[facility] [id number] [place] [address] [place] Sodium [Moles/Vol] 146 mmol/L High 136-144 [facility] Comment on above: Order Comment: Speci men Type: BLOOD SPECIMENOrdering Facility: [facility] Address: [address] [address] Performed By: #### 2 4323-8, 10035-8 ####[facility] [id number] [place] [address] [place] Urea nitrogen [Mass/Vol] 9 mg/dL Normal 9-24 [facility] Comment on above: Order Comment: Speci men Type: BLOOD SPECIMENOrdering Facility: [facility] Address: [address] [place] [address] Performed By: #### 2 4323-8, 92864-3 ####[facility] [id number] [address] [place] HIGH SENSITIVITY TROPONIN To n 03-14-2023 HIGH SENSITIVITY OMAR 13 ng/L High <12 [facility] Comment on above: Order Comment: Rosalindi men Type: BLOOD SPECIMENOrdering Facility: [facility] Address: [address] [place] [address] Result Comment: When assessing risk for acute [...] day MACE. Performed By: #### 1 9123-9, 67384-5, CYSTC, HSTNT, 2777-1 ####[facility] [id number] [place] [address] [place] HISTORY PHYSICALon HISTORY PHYSICAL Normal [facility] Magnesium SerPl-mCncon 03-14 Magnesium [Mass/Vol] 1.7 mg/dL Normal 1.7-2.3 [facility] Comment on above: Order Comment: Speci men Type: BLOOD SPECIMENOrdering Facility: [facility] Address: [address] [place] [address] Performed By: #### 1 9123-9, 04830-7, CYSTC, HSTNT, 2777-1 ####[facility] [id number] [address] [place] NT-proBNP SerPl-ncon 03-14 Natriuretic peptide.B prohormone N-Terminal [Mass/Vol] 431 pg/mL High <125 [facility] Comment on above: Order Comment: Speci men Type: BLOOD SPECIMENOrdering Facility: [facility] Address: [address] [address] Performed By: #### 1 9123-9, 27404-8, CYSTC, HSTNT, 2777-1 ####[facility] [id number] [place] [address] [place] OPERATIVE NOon 03-14-2023 OPERATIVE NO Normal [facility] Phosphate SerPl-mCncon 03-14 Phosphate [Mass/Vol] 2.9 mg/dL Normal 2.7-4.8 [facility] Comment on above: Order Comment: Speci men Type: BLOOD SPECIMENOrdering Facility: [facility] Address: [address] [address] Performed By: #### 1 9123-9, 41439-2, CYSTC, HSTNT, 277-1 ####[facility] [id number] [address] [place] Procalcitonin SerPl-ncon 0 03-14-2023 Procalcitonin [Mass/Vol] 0.52 ng/mL High <0.09 [facility] Comment on above: Order Comment: Speci men Type: BLOOD SPECIMENOrdering Facility: [facility] Address: [address] [address] Result Comment: For a guided interpretation of test results, please visit the Change in Procalcitonin Calculator, [email or web address]. Performed By: #### 2 4323-8, 27518-2 ####[facility] LABCLIA [id number] [address] [place] STAPH AUREUS PCRon 3 S. aureus and MRSA panel MARY+probe (Nose) Normal Negative [facility] Comment on above: Order Comment: Speci men Type: SWAB OF INTERNAL NOSEOrdering Facility: [facility] Address: [address] [place] [address] Result Comment: Nega tive for Staphylococcus aureus by PCR.Negative for MRSA by PCR Performed By: #### S APCR ####[facility] LABCLIA [id number] [place] [address] [place] SURGICAL PATHOLOGYon 023 CASE REPORT Normal [facility] Comment on above: Order Comment: Speci men Type: TISSUE SPECIMENOrdering Facility: [facility] Address: [address] [place] [address] Result Comment: Surg ical Pathology Report Case: [id number] Provider: Marifer Dowd MD Collected: 03/14/2023 10:37 AMOrdering Location: Admitting Received: 03/14/2023 06:29 PMPathologist: Santino Anthony MD, PhDSpecimens: A) - COLOSTOMY B) - GALLBLADDER C) - COLON RESECTION, COLON Performed By: #### S ####[facility] LABCLIA [id number] [place] [address] [place] CLINICAL HISTORY Normal [facility] Comment on above: Order Comment: Speci men Type: TISSUE SPECIMENOrdering Facility: [facility] Address: [address] [place] [address] Result Comment: Pre- op diagnosis:Preoperative examination [Z01.818]Parastomal hernia without obstruction or gangrene [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 C olostomy, takedown:- Colocutaneous anastomosis with foci of mucosal erosion, and reactive changes, consistent with ostomy site.B. Gallbladder, cholecystectomy:- Gallbladder with no diagnostic abnormality.C. Colon, resection:- Portion of colon with a single inflammatory-type polyp, patchy serositis and rare adhesions.- Serositis extends to one of the resection margins.- Two reactive lymph nodes. Performed By: #### S ####[facility] LABCLIA [id number] [address] [facility] FINAL PERFORMING LAB Normal [facility] Comment on above: Order Comment: Speci men Type: TISSUE SPECIMENOrdering Facility: [facility] Address: [address] [place] [address] Result Comment: Diag nostic interpretation performed at [facility], [address] [address] CLIA# [id number] Director: Dick Goodman M.D. Performed By: #### S ####[facility] LABIA [id number] [address] GROSS DESCRIPTION A. COLOSTOMY Normal [facility] Comment on above: Order Comment: Speci men Type: TISSUE SPECIMENOrdering Facility: [facility] Address: [address] [place] [address] Result Comment: Rece ived in formalin labeled colostomy is a 2.8 x 2.5 x 1.8 cm ostomy specimen lined by thin rim of yang skin. The ostomy site is brown and unremarkable with no defects or granularity. Sectioning reveals unremarkable cut surfaces. Photocomposition Keyboard Operator sections are submitted in one cassette.B. GALLBLADDERReceived [...] No polyps or discrete lesions are identified. Photocomposition Keyboard Operator sections to include cystic duct margin are [...] of invasion. The remaining bowel is unremarkable. Photocomposition Keyboard Operator sections are submitted as follows: C1 margins, C2 irregular polypoid lesion entirely submitted, C3 mesenteric margin shaved and two probable lymph nodes.Gross examination performed at [facility], [address] [address] CLIA# [id number] 03/15/23 Performed By: #### S ####[facility] LABIA [id number] [place] [address] [place] XR ABDOMEN 1V SUPINEon 03-14 XR ABDOMEN 1V SUPINE Normal [facility] XR CHEST 1V FRONTAL PORTon 0 03-14-2023 XR CHEST 1V FRONTAL PORT Normal [facility] CNPNon 03-13-2023 CNPN Normal [facility] CBC W Auto Differential pane l (Bld)on 02-16-2023 Basophils (Bld) [#/Vol] 0.04 10*3/uL Normal <0.11 [facility] Comment on above: Order Comment: Speci men Type: BLOOD SPECIMENOrdering Facility: [facility] Address: [address] [id number] Performed By: #### 5 7021-8 ####[facility] LABCLIA [id number] [place] [address] [place] Basophils/100 WBC (Bld) 0.5 % Normal [facility] Comment on above: Order Comment: Speci men Type: BLOOD SPECIMENOrdering Facility: [facility] Address: [address] Performed By: #### 5 7021-8 ####[facility] LABCLIA [id number] [place] [address] [place] Differential cell count method Nom (Bld) Auto Normal [facility] Comment on above: Order Comment: Speci men Type: BLOOD SPECIMENOrdering Facility: [facility] Address: [address] Performed By: #### 5 7021-8 ####[facility] LABIA [id number] [place] [address] [place] Eosinophils (Bld) [#/Vol] 0.32 10*3/uL Normal <0.46 [facility] Comment on above: Order Comment: Speci men Type: BLOOD SPECIMENOrdering Facility: [facility] Address: [address] Performed By: #### 5 7021-8 ####[facility] LABIA [id number] [address] [place] Eosinophils/100 WBC (Bld) 4.2 % Normal [facility] Comment on above: Order Comment: Speci men Type: BLOOD SPECIMENOrdering Facility: [facility] Address: [address] Performed By: #### 5 7021-8 ####[facility] LABIA [id number] [place] [address] [place] Erythrocyte distribution width (RBC) [Ratio] 12.7 % Normal 11.5-15.0 [facility] Comment on above: Order Comment: Speci men Type: BLOOD SPECIMENOrdering Facility: [facility] Address: [address] Performed By: #### 5 7021-8 ####[facility] LABCLIA [id number] [place] [address] [place] Hematocrit (Bld) [Volume fraction] 47.2 % Normal 39.0-51.0 [facility] Comment on above: Order Comment: Speci men Type: BLOOD SPECIMENOrdering Facility: [facility] Address: [address] [place] [address] Performed By: #### 5 7021-8 ####[facility] LABIA [id number] [place] [address] [place] Hemoglobin (Bld) [Mass/Vol] 14.9 g/dL Normal 13.0-17.0 [facility] Comment on above: Order Comment: Speci men Type: BLOOD SPECIMENOrdering Facility: [facility] Address: [address] [place] [address] Performed By: #### 5 7021-8 ####[facility] LABIA [id number] [place] [address] [place] Immature granulocytes (Bld) [#/Vol] 10*3/uL Normal <0.10 [facility] Comment on above: Order Comment: Speci men Type: BLOOD SPECIMENOrdering Facility: [facility] Address: [address] [place] [address] Performed By: #### 5 7021-8 ####[facility] LABIA [id number] [address] [place] Immature granulocytes/100 WBC (Bld) 0.3 % Normal [facility] Comment on above: Order Comment: Speci men Type: BLOOD SPECIMENOrdering Facility: [facility] Address: [address] [place], [place] [address] Performed By: #### 5 7021-8 ####[facility] LABIA [id number] [place] [address] [place] Lymphocytes (Bld) [#/Vol] 2.37 10*3/uL Normal 1.00-4.00 [facility] Comment on above: Order Comment: Speci men Type: BLOOD SPECIMENOrdering Facility: [facility] Address: [address] [address] Performed By: #### 5 7021-8 ####[facility] LABIA [id number] [address] Lymphocytes/100 WBC (Bld) 31.2 % Normal [facility] Comment on above: Order Comment: Speci men Type: BLOOD SPECIMENOrdering Facility: [facility] Address: [address] [place] [address] Performed By: #### 5 7021-8 ####[facility] LABIA [id number] [address] [place] MCH (RBC) [Entitic mass] 27.3 pg Normal 26.0-34.0 [facility] Comment on above: Order Comment: Speci men Type: BLOOD SPECIMENOrdering Facility: [facility] Address: [address] [place], [place] [address] Performed By: #### 5 7021-8 ####[facility] LABIA [id number] [address] [place] MCHC (RBC) [Mass/Vol] 31.6 g/dL Normal 30.5-36.[address] [facility] Comment on above: Order Comment: Speci men Type: BLOOD SPECIMENOrdering Facility: [facility] Address: [address] [place], [place] [address] Performed By: #### 5 7021-8 ####[facility] LABIA [id number] [address] [place] MCV (RBC) [Entitic vol] 86.6 fL Normal 80.0-100.0 C [facility] Comment on above: Order Comment: Speci men Type: BLOOD SPECIMENOrdering Facility: [facility] Address: [address] [place] [address], [place] Performed By: #### 5 7021-8 ####[facility] LABCLIA [id number] [place] [address] [place] Monocytes (Bld) [#/Vol] 0.59 10*3/uL Normal <0.87 [facility] Comment on above: Order Comment: Speci men Type: BLOOD SPECIMENOrdering Facility: [facility] Address: [address] Performed By: #### 5 7021-8 ####[facility] LABCLIA [id number] [address] [place] Monocytes/100 WBC (Bld) 7.8 % Normal [facility] Comment on above: Order Comment: Speci men Type: BLOOD SPECIMENOrdering Facility: [facility] Address: [address] Performed By: #### 5 7021-8 ####[facility] LABCLIA [id number] [place] [address] [place] Neutrophils (Bld) [#/Vol] 4.25 10*3/uL Normal 1.45-7.50 [facility] Comment on above: Order Comment: Speci men Type: BLOOD SPECIMENOrdering Facility: [facility] Address: [address] [place] [address] Performed By: #### 5 7021-8 ####[facility] LABCLIA [id number] [address] [place] Neutrophils/100 WBC (Bld) 56.0 % Normal [facility] Comment on above: Order Comment: Speci men Type: BLOOD SPECIMENOrdering Facility: [facility] Address: [address] Performed By: #### 5 7021-8 ####[facility] LABCLIA [id number] [place] [address] [place] Nucleated RBC (Bld) [#/Vol] 10*3/uL Normal <0.01 [facility] Comment on above: Order Comment: Speci men Type: BLOOD SPECIMENOrdering Facility: [facility] Address: [address] [place], [place] [address] Performed By: #### 5 7021-8 ####[facility] LABCLIA [id number] [place] [address] [place] Nucleated RBC/100 WBC (Bld) [Ratio] 0.0 /100 WBC Normal [facility] Comment on above: Order Comment: Speci men Type: BLOOD SPECIMENOrdering Facility: [facility] Address: [address] [place], [place] [address] Performed By: #### 5 7021-8 ####[facility] LABIA [id number] [place] [address] [place] Platelet mean volume (Bld) [Entitic vol] 9.2 fL Normal 9.0-12.7 [facility] Comment on above: Order Comment: Speci men Type: BLOOD SPECIMENOrdering Facility: [facility] Address: [address] [place], [place] [address] Performed By: #### 5 7021-8 ####[facility] LABIA [id number] [place] [address] [place] Platelets (Bld) [#/Vol] 351 10*3/uL Normal 150-400 [facility] Comment on above: Order Comment: Speci men Type: BLOOD SPECIMENOrdering Facility: [facility] Address: [address] [place], [place] [address] Performed By: #### 5 7021-8 ####[facility] LABCLIA [id number] [place] [address] [place] RBC (Bld) [#/Vol] 5.45 10*6/uL Normal 4.20-6.00 [facility] Comment on above: Order Comment: Speci men Type: BLOOD SPECIMENOrdering Facility: [facility] Address: [address] [place], [place] [address] Performed By: #### 5 7021-8 ####[facility] LABCLIA [id number] [place] [address] [place] WBC (Bld) [#/Vol] 7.59 10*3/uL Normal 3.70-11.00 [facility] Comment on above: Order Comment: Speci men Type: BLOOD SPECIMENOrdering Facility: [facility] Address: [address] [place], [place] [address] Performed By: #### 5 7021-8 ####[facility] LABCLIA [id number] [place] [address] [place] CNOVon 02-16-2023 CNOV Normal [facility] Comprehensive metabolic 2000 panelon 02-16-2023 Albumin [Mass/Vol] 4.7 g/dL Normal 3.9-4.9 [facility] Comment on above: Order Comment: Speci men Type: BLOOD SPECIMENOrdering Facility: [facility] Address: [address] [place], [place] [address] Performed By: #### 2 4323-8 ####[facility] LABCLIA [id number] [place] [address] [place] ALP [Catalytic activity/Vol] 85 U/L Normal 38-113 [facility] Comment on above: Order Comment: Speci men Type: BLOOD SPECIMENOrdering Facility: [facility] Address: [address] [place], [place] [address] Performed By: #### 2 4323-8 ####[facility] LABCLIA [id number] [place] [address] [place] ALT [Catalytic activity/Vol] 18 U/L Normal 10-54 [facility] Comment on above: Order Comment: Speci men Type: BLOOD SPECIMENOrdering Facility: [facility] Address: [address] Performed By: #### 2 4323-8 ####[facility] LABCLIA [id number] [place] [address] [place] Anion gap [Moles/Vol] 10 mmol/L Normal 9-[address] [facility] Comment on above: Order Comment: Speci men Type: BLOOD SPECIMENOrdering Facility: [facility] Address: [address] Performed By: #### 2 4323-8 ####[facility] LABCLIA [id number] [place] [address] [place] AST [Catalytic activity/Vol] 17 U/L Normal 14-40 [facility] Comment on above: Order Comment: Speci men Type: BLOOD SPECIMENOrdering Facility: [facility] Address: [address] Performed By: #### 2 4323-8 ####[facility] LABCLIA [id number] [place] [address] [place] Bilirubin [Mass/Vol] 0.3 mg/dL Normal 0.2-1.3 [facility] Comment on above: Order Comment: Speci men Type: BLOOD SPECIMENOrdering Facility: [facility] Address: [address] Performed By: #### 2 4323-8 ####[facility] LABCLIA [id number] [place] [address] [place] Calcium [Mass/Vol] 9.7 mg/dL Normal 8.5-10.2 [facility] Comment on above: Order Comment: Speci men Type: BLOOD SPECIMENOrdering Facility: [facility] Address: [address] Performed By: #### 2 4323-8 ####[facility] LABCLIA [id number] [place] [address] [place] Chloride [Moles/Vol] 100 mmol/L Normal 97-105 [facility] Comment on above: Order Comment: Speci men Type: BLOOD SPECIMENOrdering Facility: [facility] Address: [address] [place] [address] Performed By: #### 2 4323-8 ####[facility] LABCLIA [id number] [place] [address] [place] CO2 [Moles/Vol] 27 mmol/L Normal 22-30 [facility] Comment on above: Order Comment: Speci men Type: BLOOD SPECIMENOrdering Facility: [facility] Address: [address] [place] [address] Performed By: #### 2 4323-8 ####[facility] LABCLIA [id number] [place] [address] [place] [facility] Creatinine [Mass/Vol] 0.44 mg/dL Low 0.73-1.[address] [facility] Comment on above: Order Comment: Speci men Type: BLOOD SPECIMENOrdering Facility: [facility] Address: [address] [place] [address] Performed By: #### 2 4323-8 ####[facility] LABCLIA [id number] [place] [address] [place] GFR/1.73 sq M.predicted among non-blacks MDRD (S/P/Bld) [Vol rate/Area] mL/min/{1.73_m2} Normal >=60 [facility] Comment on above: Order Comment: Speci men Type: BLOOD SPECIMENOrdering Facility: [facility] Address: [address] [place] [address] Result Comment: Mary mated Glomerular Filtration Rate [...] actual GFR. Performed By: #### 2 4323-8 ####[facility] LABIA [id number] [place] [address] [place] Glucose [Mass/Vol] 72 mg/dL Low 74-99 [facility] Comment on above: Order Comment: Speci men Type: BLOOD SPECIMENOrdering Facility: [facility] Address: [address] [place] [address] Result Comment: The [place] [employer] (ADA) provides guidance for cutoff [...] Standards of Medical Care in Diabetes 2016, [place] [employer]. Diabetes Care. 2016.39(Suppl 1). Performed By: #### 2 4323-8 ####[facility] LABIA [id number] [place] [address] [place] Potassium [Moles/Vol] 4.2 mmol/L Normal 3.7-5.[address] [facility] Comment on above: Order Comment: Speci men Type: BLOOD SPECIMENOrdering Facility: [facility] Address: [address] [id number] Performed By: #### 2 4323-8 ####[facility] LABIA [id number] [place] [address] [place] Protein [Mass/Vol] 8.2 g/dL High 6.3-8.0 [facility] Comment on above: Order Comment: Speci men Type: BLOOD SPECIMENOrdering Facility: [facility] Address: [address] [id number] Performed By: #### 2 4323-8 ####[facility] LABCLIA [id number] [place] [address] [place] Sodium [Moles/Vol] 137 mmol/L Normal 136-144 [facility] Comment on above: Order Comment: Frantz thurman Type: BLOOD SPECIMENOrdering Facility: [facility] Address: [address] [place] [address] Performed By: #### 2 4323-8 ####[facility] LABCLIA [id number] [place] [address] [place] Urea nitrogen [Mass/Vol] 10 mg/dL Normal 9-24 [facility] Comment on above: Order Comment: Frantz thurman Type: BLOOD SPECIMENOrdering Facility: [facility] Address: [address] [place] [address] Performed By: #### 2 4323-8 ####[facility] LABCLIA [id number] [place] [address] [place] ECG COMPLETEon 02-16-2023 ECG COMPLETE Normal [facility] HISTORY PHYSICALon HISTORY PHYSICAL Normal [facility] PT panel Coag (PPP)on 2022 INR Coag (PPP) [Relative time] 1.0 {INR} Normal 0.9-1.3 [facility] Comment on above: Order Comment: Frantz thurman Type: BLOOD SPECIMENOrdering Facility: [facility] Address: [address] [place] [address] Result Comment: Gale min K Antagonist (VKA) Therapeutic Range: INR 2 to 3 (Target INR of 2.5)Note: For patients treated with VKA drugs, such as warfarin, the [place] [employer] 2012 Guideline recommends [...] 2.5 to 3.5 (target INR of 3).Grayson COX, et al. Chest 2012, 141:7S-47SUriel RA, et al. [facility] 2017, 70: 252-289 Performed By: #### 1 4979-9, 27365-5 ####[facility] LABCLIA [id number] [place] [address] [place] PT Coag (PPP) [Time] 10.6 s Normal 9.7-13.0 [facility] Comment on above: Order Comment: Speci men Type: BLOOD SPECIMENOrdering Facility: [facility] Address: [address] [place] [address] Performed By: #### 1 4979-9, 48146-5 ####[facility] LABCLIA [id number] [place] [address] [place] TYPE AND SCREEN,30 DAYon ABO A Normal [facility] Comment on above: Order Comment: Speci men Type: BLOOD SPECIMENOrdering Facility: [facility] Address: [address] [place] [address] Performed By: #### T SCR30 ####[facility] BLOOD BANKCLIA [id number] [place] [address] [place] HISTORICAL AB SCR STATUS Negative Normal [facility] Comment on above: Order Comment: Speci men Type: BLOOD SPECIMENOrdering Facility: [facility] Address: [address] [place] [address] Performed By: #### T SCR30 ####[facility] BLOOD BANKCLIA [id number] [place] [address] [place] Rh Nom (Bld) Positive Normal [facility] Comment on above: Order Comment: Speci men Type: BLOOD SPECIMENOrdering Facility: [facility] Address: [address] [id number] Performed By: #### T SCR30 ####[facility] BLOOD BANKCLIA [id number] [address] aPTT PPPon 02-16-2023 aPTT Coag (PPP) [Time] 29.6 s Normal 23.0-32.4 [facility] Comment on above: Order Comment: Speci men Type: BLOOD SPECIMENOrdering Facility: [facility] Address: [address] [address] Performed By: #### 1 4979-9, 38107-1 ####[facility] LABCLIA [id number] [address] [facility] CNPNon 02-03-2023 CNPN Normal [facility] CNPNon 02-02-2023 CNPN Normal [facility] CNOVon 12-19-2022 CNOV Normal [facility] CNPNon 11-29-2022 CNPN Normal [facility] US THYROIDon 11-04-2022 US THYROID ORIGINAL EXAMINATION: [...] 11/04/2022 11:25:24 AM Ordering Provider: NIKITA Bailey [facility] ([place]) .Auto Diffon 11-02-2022 Basophil, Absolute 0.0 10 3/mcL Normal 0.0-0.2 [facility] ([place]) Comment on above: Performed By: #### A DIFF, A1C, ANEU, FT3, FT4, CBC, TSH #### [address] [address] Basophils/100 WBC (Bld) 0.5 % Normal 0.0-2.5 A [facility] ([place]) Comment on above: Performed By: #### A DIFF, A1C, ANEU, FT3, FT4, CBC, TSH #### [address] [address] Eosinophil, Absolute 0.2 10 3/mcL Normal 0.0-0.4 [facility] [place] Comment on above: Performed By: #### A DIFF, A1C, ANEU, FT3, FT4, CBC, TSH #### [address] [address] Eosinophils/100 WBC (Bld) 2.4 % Normal 0.0-7.0 [facility] ([place]) Comment on above: Performed By: #### A DIFF, A1C, ANEU, FT3, FT4, CBC, TSH #### [address] [address] Lymphocyte, Absolute 2.6 10 3/mcL Normal 0.8-3.9 [facility] [place] Comment on above: Performed By: #### A DIFF, A1C, ANEU, FT3, FT4, CBC, TSH #### [address] [address] Lymphocytes/100 WBC (Bld) 28.8 % Normal 10.0-50.0 [facility] ([place]) Comment on above: Performed By: #### A DIFF, A1C, ANEU, FT3, FT4, CBC, TSH #### [address] [address] Monocyte, Absolute 0.6 10 3/mcL Normal 0.2-1.0 [facility] ([place] Comment on above: Performed By: #### A DIFF, A1C, ANEU, FT3, FT4, CBC, TSH #### [address] [address] Monocytes/100 WBC (Bld) 6.6 % Normal 1.7-13.0 [facility] ([place]) Comment on above: Performed By: #### A DIFF, A1C, ANEU, FT3, FT4, CBC, TSH #### [address] [address] Neutrophils/100 WBC (Bld) 61.7 % Normal 37.0-80.0 [facility] ([place]) Comment on above: Performed By: #### A DIFF, A1C, ANEU, FT3, FT4, CBC, TSH #### [address] [address] .NEUABSon 11-02-2022 Neutrophil, Absolute 5.5 10 3/mcL Normal 2.9-6.2 Critical access [facility] ([place] Comment on above: Performed By: #### A DIFF, A1C, ANEU, FT3, FT4, CBC, TSH #### [address] [address] A1Con 11-02-2022 HbA1c (Bld) [Mass fraction] 4.9 % Normal 4.3-6.4 [facility] ([place]) Comment on above: Performed By: #### A DIFF, A1C, ANEU, FT3, FT4, CBC, TSH #### [address] [address] CBCon 11-02-2022 Erythrocyte distribution width (RBC) [Ratio] 13.4 % Normal 11.5-14.5 [facility] ([place] Comment on above: Performed By: #### A DIFF, A1C, ANEU, FT3, FT4, CBC, TSH #### [address] [address] Hematocrit (Bld) [Volume fraction] 46.5 % Normal 42.0-52.0 [facility] ([place] Comment on above: Performed By: #### A DIFF, A1C, ANEU, FT3, FT4, CBC, TSH #### [address] [address] Hgb 15.6 G/dL Normal 14.0-18.0 [facility] ([place] Comment on above: Performed By: #### A DIFF, A1C, ANEU, FT3, FT4, CBC, TSH #### [place] [id number] MCH (RBC) [Entitic mass] 27.6 pg Normal 27.0-31.2 [facility] ([place] Comment on above: Performed By: #### A DIFF, A1C, ANEU, FT3, FT4, CBC, TSH #### [place] [id number] MCHC 33.5 G/dL Normal 31.8-35.4 [facility] ([place]) Comment on above: Performed By: #### A DIFF, A1C, ANEU, FT3, FT4, CBC, TSH #### [address] [address] MCV (RBC) [Entitic vol] 82.4 fL Normal 80.0-94.0 A [facility] ([place]) Comment on above: Performed By: #### A DIFF, A1C, ANEU, FT3, FT4, CBC, TSH #### [address] [address] Platelet 356 10 3/mcL Normal 130-400 [facility] ([place]) Comment on above: Performed By: #### A DIFF, A1C, ANEU, FT3, FT4, CBC, TSH #### [address] [address] Platelet mean volume (Bld) [Entitic vol] 7.2 fL Low 7.4-10.4 [facility] ([place] Comment on above: Performed By: #### A DIFF, A1C, ANEU, FT3, FT4, CBC, TSH #### [address] [address] RBC 5.65 10 6/mcL Normal 4.04-6.13 [facility] ([place]) Comment on above: Performed By: #### A DIFF, A1C, ANEU, FT3, FT4, CBC, TSH #### [address] [address] WBC 8.9 10 3/mcL Normal 4.6-10.8 [facility] ([place]) Comment on above: Performed By: #### A DIFF, A1C, ANEU, FT3, FT4, CBC, TSH #### [address] [address] FT3on 11-02-2022 Free T3 [Mass/Vol] 3.47 pg/mL Normal 2.30-4.00 [facility] ([place]) Comment on above: Performed By: #### A DIFF, A1C, ANEU, FT3, FT4, CBC, TSH #### [address] [address] FT4on 11-02-2022 Free T4 [Mass/Vol] 0.96 ng/dL Normal 0.76-1.46 [facility] ([place]) Comment on above: Performed By: #### A DIFF, A1C, ANEU, FT3, FT4, CBC, TSH #### [address] [address] LABORATORYOrdered By: Sony Mckeon on 11-02-2022 Basophil, [...] 11-02-2022 TSH Qn 1.86 m[IU]/L Normal 0.36-3.74 [facility] ([place]) Comment on above: Performed By: #### A DIFF, A1C, ANEU, FT3, FT4, CBC, TSH #### [place] [place] [id number] [place], [place] [address] CNOVon 08-01-2022 CNOV Normal [facility] HISTORY PHYSICALon 2 HISTORY PHYSICAL Normal [facility] 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 He is accompanied by his father and mother. No foreign language teacher was used. Past Hx: Marcos is a [...] having some stone issues; had surgery at [facility] for stones ---Emptying bag everyday N/V [...] MMK performed by Chris Cobb MD at [facility] OR ADENOIDECTOMY BLADDER SURGERY N/A 10/03/2016 VESICOLOTHOTOMY possible lithoclast performed by Chris Cobb MD at [facility] OR COLOSTOMY N/A 01/29/2019 COLOSTOMY performed by Perry Sheikh MD at [facility] OR GASTROSTOMY N/A 01/29/2019 ENDOSCOPIC GASTROSTOMY PERCUTANEOUS performed by Perry Sheikh MD at [facility] OR GASTROSTOMY 05/16/2019 gastrostomy tube removal performed by Perry Sheikh MD at [facility] OR HERNIA REPAIR HIP FUSION Right 05/16/2019 RIGHT HIP DISARTICULATION VERSUS CASTLE PROXIMAL FEMORAL RESECTION AND FLAP COVERAGE performed by Cruz Ramires MD at [facility] OR KIDNEY STONE SURGERY N/A 02/15/2018 CYSTOSCOPY WITH LITHOLAPAXY/VESICOLITHO TRIPSY/CYSTOLITHOPAXY & HOLMIUM LASER performed by Chris Cobb MD at [facility] OR LAMINECTOMY 05/24/2005 Untethering of spinal cord LAPAROTOMY N/A 11/04/2020 LAPAROTOMY, EXPLORATORY, POSSIBLE BOWEL RESECTION, POSSIBLE PARASTOMAL HERNIA REPAIR, POSSIBLE OSTOMY REVISION performed by Ronnie Mendez MD at [facility] OR LITHOTRIPSY N/A 12/21/2017 cystoscopy and Holmium laser lithotripsy of bladder calculi possible vesicolithotomy performed by Chris Cobb MD at [facility] OR MYELOMENINGOCELE REPAIR ORTHOPEDIC SURGERY 06/26/2007 I & D of spinal wound with DuraSeal control of spinal leak ORTHOPEDIC SURGERY 09/18/2007 Removal of distal end of both posterior spinal rods ORTHOPEDIC SURGERY 01/25/2008 Incision, debridement and drainage of spinal infection, closure over Tobramycin, calcium sulfate pellets OTHER SURGICAL HISTORY bowens stoma/ mitroffanof OTHER SURGICAL HISTORY vesicolothomy PICC PLACEMENT TN ANESTH,UGI ENDOSCOPY [place] UROLOGY SURGERY PROCEDURE UNLISTED RECONSTRUCTIVE FLAP SURGERY 05/16/2019 EXCISION OF ISCHIAL PRESSURE ULCER WITH FLAP CLOSURE performed by Trent Issa MD at [facility] OR SPINAL FUSION 06/06/2007 RSF with instrumentation T2 to sacrum SPINAL FUSION 05/26/2010 Staged (single day) posterior fusion and anterior interbody fusion with instrumen (more content not included)... Normal 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 Marcos Aguirre : [...] MMK performed by Chris Cobb MD at [facility] OR ADENOIDECTOMY BLADDER SURGERY N/A 10/03/2016 VESICOLOTHOTOMY possible lithoclast performed by Chris Cobb MD at [facility] OR COLOSTOMY N/A 01/29/2019 COLOSTOMY performed by Perry Sheikh MD at [facility] OR GASTROSTOMY N/A 01/29/2019 ENDOSCOPIC GASTROSTOMY PERCUTANEOUS performed by Perry Sheikh MD at [facility] OR GASTROSTOMY 05/16/2019 gastrostomy tube removal performed by Perry Sheikh MD at [facility] OR HERNIA REPAIR HIP FUSION Right 05/16/2019 RIGHT HIP DISARTICULATION VERSUS CASTLE PROXIMAL FEMORAL RESECTION AND FLAP COVERAGE performed by Cruz Ramires MD at [facility] OR KIDNEY STONE SURGERY N/A 02/15/2018 CYSTOSCOPY WITH LITHOLAPAXY/VESICOLITHO TRIPSY/CYSTOLITHOPAXY & HOLMIUM LASER performed by Chris Cobb MD at [facility] OR LAMINECTOMY 05/24/2005 Untethering of spinal cord LAPAROTOMY N/A 11/04/2020 LAPAROTOMY, EXPLORATORY, POSSIBLE BOWEL RESECTION, POSSIBLE PARASTOMAL HERNIA REPAIR, POSSIBLE OSTOMY REVISION performed by Ronnie Mendez MD at [facility] OR LITHOTRIPSY N/A 12/21/2017 cystoscopy and Holmium laser lithotripsy of bladder calculi possible vesicolithotomy performed by Chris Cobb MD at [facility] OR MYELOMENINGOCELE REPAIR ORTHOPEDIC SURGERY 06/26/2007 I & D of spinal wound with DuraSeal control of spinal leak ORTHOPEDIC SURGERY 09/18/2007 Removal of distal end of both posterior spinal rods ORTHOPEDIC SURGERY 01/25/2008 Incision, debridement and drainage of spinal infection, closure over Tobramycin, calcium sulfate pellets OTHER SURGICAL HISTORY bowens stoma/ mitroffanof OTHER SURGICAL HISTORY vesicolothomy PICC PLACEMENT TN ANESTH,UGI ENDOSCOPY [place] UROLOGY SURGERY PROCEDURE UNLISTED RECONSTRUCTIVE FLAP SURGERY 05/16/2019 EXCISION OF ISCHIAL PRESSURE ULCER WITH FLAP CLOSURE performed by Trent Issa MD at [facility] OR SPINAL FUSION 06/06/2007 RSF with instrumentation T2 to sacrum SPINAL FUSION 05/26/2010 Staged (single day) posterior fusion and anterior interbody fusion with instrumentation TONSILLECTOMY TONSILLECTOMY AND ADENOIDECTOMY UPPER GASTROINTESTINAL ENDOSCOPY N/A 06/20/2017 ENDOSCOPY UPPER (FLEXIBLE) with biopsies performed by Augustin Rey MD at [facility] OR VENTRICULOPERITONEAL SHUNT Pediatric History Patient Parents/Guardians Marcos Aguirre (Self/Guardian) Wendi Aguirre (Mother) Jae Aguirre (Father) Other Topics Concern Not on file Social History Narrative Not on file ED Triage Vitals Date and Time Temp Temp src Pulse Resp BP SpO2 Weight User (more content not included)... Normal [facility] Basic Metabolic Panelon Calcium [Mass/Vol] 9.5 mg/dL Normal 7.6-11.0 [facility] Comment on above: Order Comment: Relea se to patient->Automatic 41795&Blood Performed By: #### B MP #### [address] [address] CO2 [Moles/Vol] 29.8 mmol/L High 22.0-29.0 [facility] Comment on above: Order Comment: Relea se to patient->Automatic 05952&Blood Performed By: #### B MP #### [address] [id number] Creatinine [Mass/Vol] 0.51 mg/dL Low 0.70-1.20 [facility] Comment on above: Order Comment: Relea se to patient->Automatic 43583&Blood Performed By: #### B MP #### [address] [address] Glucose [Mass/Vol] 84 mg/dL Normal 70-99 [facility] Comment on above: Order Comment: Relea se to patient->Automatic 01173&Blood Result Comment: Crit geo for Diagnosis of Diabetes: Fasting Specimen (no caloric intake for at least 8 hours): <100 mg/dL Normal 100-125 mg/dL Increased risk for Diabetes >125 mg/dL Diagnostic for Diabetes Random Glucose (any time of day without regard to last meal): > or = 200 mg/dL plus Classic Symptoms of Diabetes Performed By: #### B MP #### [place] [address] Urea nitrogen [Mass/Vol] 12 mg/dL Normal 4-19 [facility] Comment on above: Order Comment: Relea se to patient->Automatic 92645&Blood Performed By: #### B MP #### [address] [address] Chloride [Moles/Vol] 97 mmol/L Normal 96-108 [facility] Comment on above: Order Comment: Relea se to patient->Automatic 26368&Blood Performed By: #### B MP #### [address] [address] Potassium [Moles/Vol] 3.5 mmol/L Normal 3.3-5.1 [facility] Comment on above: Order Comment: Relea se to patient->Automatic 81019&Blood Performed By: #### B MP #### [address] [address] Sodium [Moles/Vol] 138 mmol/L Normal 133-145 [facility] Comment on above: Order Comment: Relea se to patient->Automatic 69724&Blood Performed By: #### B MP #### [address] [address] C-Reactive Proteinon 022 C-Reactive Protein 1.0 mg/dL Normal 0.0-1.0 [facility] Comment on above: Order Comment: Relea se to patient->Automatic 65936&Blood Result Comment: CRP determinations in neonates should be interpreted with caution. CRP may be elevated in circumstances not associated with inflammation (e.g. difficult delivery, pneumothorax). In premature neonates CRP levels may not rise to abnormal levels even if sepsis is present; some speculate that immature liver function decreases the ability to generate a CRP response. Performed By: #### C RP #### [place] [address] CT ABDOMEN/PELVIS WITH IV CO NTRASTon 06-24-2022 [...] Dr. Diana Moura at 06/24/2022 16:[address] [facility] Hemogramon 06-24-2022 Erythrocyte distribution width (RBC) [Ratio] 13.4 % Normal 0.0-14.4 [facility] Comment on above: Order Comment: Leea se to patient->Automatic 00707&Blood Performed By: #### H [facility] #### [place] [address] Hematocrit (Bld) [Volume fraction] 46.6 % Normal 41.0-50.0 [facility] Comment on above: Order Comment: Relea se to patient->Automatic 72210&Blood Performed By: #### H EGRM #### [address] [address] Hemoglobin (Bld) [Mass/Vol] 15.2 g/dL Normal 13.5-16.5 [facility] Comment on above: Order Comment: Relea se to patient->Automatic 43655&Blood Performed By: #### H EGRM #### [address] [address] MCH (RBC) [Entitic mass] 27.3 pg Normal 26.0-34.0 [facility] Comment on above: Order Comment: Relea se to patient->Automatic 94100&Blood Performed By: #### H EGRM #### [address] [address] MCHC 32.6 % Normal 31.0-37.0 [facility] Comment on above: Order Comment: Relea se to patient->Automatic 99995&Blood Performed By: #### H EGRM #### [address] [address] MCV (RBC) [Entitic vol] 83.7 fL Normal 80.0-100.0 [facility] Comment on above: Order Comment: Relea se to patient->Automatic 78565&Blood Performed By: #### H EGRM #### [address] [address] Nucleated RBC/100 WBC (Bld) [Ratio] 0.0 % Normal -1.0-0.0 [facility] Comment on above: Order Comment: Relea se to patient->Automatic 68559&Blood Performed By: #### H EGRM #### [address] [id number] Platelet mean volume (Bld) [Entitic vol] 9.[address] [facility] Comment on above: Order Comment: Relea se to patient->Automatic 95999&Blood Result Comment: MPV is platelet range and age dependent Performed By: #### H EGRM #### [address] [address] Platelets (Bld) [#/Vol] 328 10*3/uL Normal 150-450 [facility] Comment on above: Order Comment: Relea se to patient->Automatic 15768&Blood Performed By: #### H EGRM #### [address] [address] RBC 5.57 10E12/L High 4.50-5.50 [facility] Comment on above: Order Comment: Relea se to patient->Automatic 11828&Blood Performed By: #### H EGRM #### [address] [address] WBC (Bld) [#/Vol] 10.3 10*3/uL Normal 4.5-11.0 [facility] Comment on above: Order Comment: Relea se to patient->Automatic 43746&Blood Performed By: #### H EGRM #### [address] [address] Hepatic Panelon 06-24-2022 Albumin [Mass/Vol] 4.4 g/dL Normal 3.5-5.0 [facility] Comment on above: Order Comment: Relea se to patient->Automatic 56699&Blood Performed By: #### L IVER #### [address] [address] ALP [Catalytic activity/Vol] 86 U/L Normal 40-129 [facility] Comment on above: Order Comment: Relea se to patient->Automatic 46997&Blood Performed By: #### L IVER #### [address] [id number] AST [Catalytic activity/Vol] 39 U/L High 0-37 [facility] Comment on above: Order Comment: Relea se to patient->Automatic 42143&Blood Performed By: #### L IVER #### [address] [address] Bili, Conjugated <0.2 Normal 0.0-0.7 [facility] Comment on above: Order Comment: Relea se to patient->Automatic 47165&Blood Performed By: #### L IVER #### [address] [address] Bili,Total 0.5 mg/dL Normal 0.0-1.0 [facility] Comment on above: Order Comment: Relea se to patient->Automatic 08598&Blood Performed By: #### L IVER #### [address] [address] Protein [Mass/Vol] 8.2 g/dL Normal 5.9-8.4 [facility] Comment on above: Order Comment: Relea se to patient->Automatic 22166&Blood Performed By: #### L IVER #### [address] [address] ALT [Catalytic activity/Vol] 68 U/L High 0-46 [facility] Comment on above: Order Comment: Relea se to patient->Automatic 66544&Blood Performed By: #### L IVER #### [address] [address] Lipaseon 06-24-2022 Lipase [Catalytic activity/Vol] 19 U/L Normal 13-95 [facility] Comment on above: Order Comment: Relea se to patient->Automatic 75714&Blood Performed By: #### L IPAS #### [address] [address] ABDOMEN 1 VIEWon 06-19-2022 ABDOMEN 1 VIEW [...] surgical clips adjacent to the right acetabulum. BRIM SHAPER shunt tubing. Lung bases clear. Right lower quadrant ostomy bag IMPRESSION: No significant dilated loops of small bowel are identified to suggest obstruction. This report has been created using voice recognition software Signed by: Dr. Nikita Plascencia at 06/19/2022 12:[address] 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[employer] Authentication Interface Message Text Marcos Reginaldo Aguirre : 1995 Chief Complaint Patient presents [...] MMK performed by Chris Cobb MD at [facility] OR ADENOIDECTOMY BLADDER SURGERY N/A 10/03/2016 VESICOLOTHOTOMY possible lithoclast performed by Chris Cobb MD at [facility] OR COLOSTOMY N/A 01/29/2019 COLOSTOMY performed by Perry Sheikh MD at [facility] OR GASTROSTOMY N/A 01/29/2019 ENDOSCOPIC GASTROSTOMY PERCUTANEOUS performed by Perry Sheikh MD at [facility] OR GASTROSTOMY 05/16/2019 gastrostomy tube removal performed by Perry Sheikh MD at [facility] OR HERNIA REPAIR HIP FUSION Right 05/16/2019 RIGHT HIP DISARTICULATION VERSUS CASTLE PROXIMAL FEMORAL RESECTION AND FLAP COVERAGE performed by Cruz Ramires MD at [facility] OR KIDNEY STONE SURGERY N/A 02/15/2018 CYSTOSCOPY WITH LITHOLAPAXY/VESICOLITHO TRIPSY/CYSTOLITHOPAXY & HOLMIUM LASER performed by Chris Cobb MD at [facility] OR LAMINECTOMY 05/24/2005 Untethering of spinal cord LAPAROTOMY N/A 11/04/2020 LAPAROTOMY, EXPLORATORY, POSSIBLE BOWEL RESECTION, POSSIBLE PARASTOMAL HERNIA REPAIR, POSSIBLE OSTOMY REVISION performed by Ronnie Mendez MD at [facility] OR LITHOTRIPSY N/A 12/21/2017 cystoscopy and Holmium laser lithotripsy of bladder calculi possible vesicolithotomy performed by Chris Cobb MD at [facility] OR MYELOMENINGOCELE REPAIR ORTHOPEDIC SURGERY 06/26/2007 I & D of spinal wound with DuraSeal control of spinal leak ORTHOPEDIC SURGERY 09/18/2007 Removal of distal end of both posterior spinal rods ORTHOPEDIC SURGERY 01/25/2008 Incision, debridement and drainage of spinal infection, closure over Tobramycin, calcium sulfate pellets OTHER SURGICAL HISTORY bowens stoma/ mitroffanof OTHER SURGICAL HISTORY vesicolothomy PICC PLACEMENT TN ANESTH,UGI ENDOSCOPY [place] UROLOGY SURGERY PROCEDURE UNLISTED RECONSTRUCTIVE FLAP SURGERY 05/16/2019 EXCISION OF ISCHIAL PRESSURE ULCER WITH FLAP CLOSURE performed by Trent Issa MD at [facility] OR SPINAL FUSION 06/06/2007 RSF with instrumentation T2 to sacrum SPINAL FUSION 05/26/2010 Staged (single day) posterior fusion and anterior interbody fusion with instrumentation TONSILLECTOMY TONSILLECTOMY AND ADENOIDECTOMY UPPER GASTROINTESTINAL ENDOSCOPY N/A 06/20/2017 ENDOSCOPY UPPER (FLEXIBLE) with biopsies performed by Augustin Rey MD at [facility] OR VENTRICULOPERITONEAL SHUNT Pediatric History Patient Parents Wendi Aguirre (Mother) Jae Aguirre (Father) Other [...] Mucous membran (more content not included)... Normal [facility] XR Abdomen Viewson IMPRESSION: No significant dilated loops of small bowel are identified to suggest obstruction. This report has been created using voice recognition software [facility] RADIOLOGY Clinical history: Vomiting.. Colostomy. Rule out [...] surgical clips adjacent to the right acetabulum. BRIM SHAPER shunt tubing. Lung bases clear. Right lower quadrant ostomy bag [facility] RADIOLOGY Nikita Plascencia MD - 06/19/2022 Clinical history: Vomiting.. Colostomy. Rule out obstruction. COMPARISON: Nancy 11 2 November 04, 2020 Results: Single view [...] surgical clips adjacent to the right acetabulum. BRIM SHAPER shunt tubing. Lung bases clear. Right lower quadrant ostomy bag IMPRESSION: No significant dilated loops of small bowel are identified to suggest obstruction. This report has been created using voice recognition software [facility] Radiology Study observation (narrative) [facility] XR Abdomen ViewsOrdered By: Nikita Plascencia on 06-19-2022 [facility] Work Phone: [phone] [facility] 25-hydroxyvitamin D3 [Mass/Vol] 35.1 ng/mL Normal 31.0-80.0 [facility] Comment on above: Order Comment: Speci cuca Type: BLOOD SPECIMENOrdering Facility: [facility] Address: [address] [place] [address] Result Comment: Clas sification of 25 [place] Vitamin D status:Deficiency/Insufficiency: < or = 30 ng/ml.Sufficiency/Optimal Levels: 31-80 ng/mLToxicity: > 100 ng/mL.Test performed by chemiluminescent immunoassay. Performed By: #### 1 989-3 ####[facility] [id number] [place] [address] [place] Basic metabolic 2000 panelon 06-14-2022 Anion gap [Moles/Vol] 12 mmol/L Normal 9-[address] [facility] Comment on above: Order Comment: Speci cuca Type: BLOOD SPECIMENOrdering Facility: [facility] Address: [address] [place] [address] Performed By: #### 2 4325-3, 00534-8 ####[facility] [id number] [place] [address] [place] Calcium [Mass/Vol] 9.5 mg/dL Normal 8.5-10.2 [facility] Comment on above: Order Comment: Speci men Type: BLOOD SPECIMENOrdering Facility: [facility] Address: [address] [place] [address] Performed By: #### 2 4325-3, 41579-9 ####[facility] [id number] [place] [address] [place] Chloride [Moles/Vol] 100 mmol/L Normal 97-105 [facility] Comment on above: Order Comment: Speci men Type: BLOOD SPECIMENOrdering Facility: [facility] Address: [address] [place] [address] Performed By: #### 2 4325-3, 11970-4 ####[facility] [id number] [place] [address] [place] CO2 [Moles/Vol] 26 mmol/L Normal 22-30 [facility] Comment on above: Order Comment: Speci men Type: BLOOD SPECIMENOrdering Facility: [facility] Address: [address] [place] [address] Performed By: #### 2 4325-3, 19305-5 ####[facility] [id number] [place] [address] [place] Creatinine [Mass/Vol] 0.43 mg/dL Low 0.73-1.[address] [facility] Comment on above: Order Comment: Speci men Type: BLOOD SPECIMENOrdering Facility: [facility] Address: [address] [place] [address] Performed By: #### 2 4325-3, 06043-0 ####[facility] [id number] [place] [address] [place] GFR/1.73 sq M.predicted among non-blacks MDRD (S/P/Bld) [Vol rate/Area] mL/min/{1.73_m2} Normal >=60 [facility] Comment on above: Order Comment: Frantz thurman Type: BLOOD SPECIMENOrdering Facility: [facility] Address: [address] [place], [place] [phone] Result Comment: Mary mated Glomerular Filtration Rate [...] actual GFR. Performed By: #### 2 4325-3, 59344-5 ####[facility] [id number] [place] [address] [place] Glucose [Mass/Vol] 109 mg/dL High 74-99 [facility] Comment on above: Order Comment: Frantz thurman Type: BLOOD SPECIMENOrdering Facility: [facility] Address: [address] [id number] Result Comment: The [place] [employer] (ADA) provides guidance for cutoff [...] Standards of Medical Care in Diabetes 2016, [place] [employer]. Diabetes Care. 2016.39(Suppl 1). Performed By: #### 2 4325-3, 37373-2 ####[facility] [id number] [place] [address] [place] Potassium [Moles/Vol] 3.8 mmol/L Normal 3.7-5.[address] [facility] Comment on above: Order Comment: Speci men Type: BLOOD SPECIMENOrdering Facility: [facility] Address: [address] [place] [address] Performed By: #### 2 4325-3, 64561-1 ####[facility] TEREZA CUNNINGHAMQIAN [id number] [place] [address] [place] Sodium [Moles/Vol] 138 mmol/L Normal 136-144 [facility] Comment on above: Order Comment: Speci men Type: BLOOD SPECIMENOrdering Facility: [facility] Address: [address] [place] [address] Performed By: #### 2 4325-3, 42403-0 ####[facility] [id number] [place] [address] [place] Urea nitrogen [Mass/Vol] 13 mg/dL Normal 9-24 [facility] Comment on above: Order Comment: Speci men Type: BLOOD SPECIMENOrdering Facility: [facility] Address: [address] [place] [address] Performed By: #### 2 4325-3, 16060-0 ####[facility] SILVANODANNIELLEQIAN [id number] [place] [address] [place] CBC panel Auto (Bld)on 06-14 Erythrocyte distribution width (RBC) [Ratio] 13.4 % Normal 11.5-15.0 [facility] Comment on above: Order Comment: Speci men Type: BLOOD SPECIMENOrdering Facility: [facility] Address: [address] [place] [address] Performed By: #### 5 8410-2 ####[facility]PHYRHILLSQ[facility] [id number] [address] [place] Hematocrit (Bld) [Volume fraction] 47.5 % Normal 39.0-51.0 [facility] Comment on above: Order Comment: Speci men Type: BLOOD SPECIMENOrdering Facility: [facility] Address: [address] [place] [address] Performed By: #### 5 8410-2 ####[facility] MAXINE [id number] [place] [address] [place] Hemoglobin (Bld) [Mass/Vol] 15.3 g/dL Normal 13.0-17.0 [facility] Comment on above: Order Comment: Speci men Type: BLOOD SPECIMENOrdering Facility: [facility] Address: [address] [place] [address] Performed By: #### 5 8410-2 ####[facility] SILVANOGLEN RIDGENCTIERRA [id number] [place] [address] [place] MCH (RBC) [Entitic mass] 26.9 pg Normal 26.0-34.0 [facility] Comment on above: Order Comment: Speci men Type: BLOOD SPECIMENOrdering Facility: [facility] Address: [address] [place] [address] Performed By: #### 5 8410-2 ####[facility]CL[facility] [id number] [address] [place] MCHC (RBC) [Mass/Vol] 32.2 g/dL Normal 30.5-36.[address] [facility] Comment on above: Order Comment: Speci men Type: BLOOD SPECIMENOrdering Facility: [facility] Address: [address] [place] [address] Performed By: #### 5 8410-2 ####[facility]CL[facility] [id number] [address] [place] MCV (RBC) [Entitic vol] 83.6 fL Normal 80.0-100.0 C [facility] Comment on above: Order Comment: Speci men Type: BLOOD SPECIMENOrdering Facility: [facility] Address: [address] [place], [place] [address] Performed By: #### 5 8410-2 ####[facility]PHYRHILLSNCCONCETTAA [id number] [place] [address] [place] Nucleated RBC (Bld) [#/Vol] 10*3/uL Normal <0.01 [facility] Comment on above: Order Comment: Speci men Type: BLOOD SPECIMENOrdering Facility: [facility] Address: [address] [place], [place] [address] Performed By: #### 5 8410-2 ####[facility] [id number] [place] [address] [place] Platelet mean volume (Bld) [Entitic vol] 9.0 fL Normal 9.0-12.7 [facility] Comment on above: Order Comment: Speci men Type: BLOOD SPECIMENOrdering Facility: [facility] Address: [address] [place], [place] [address] Performed By: #### 5 8410-2 ####[facility] [id number] [place] [address] [place] Platelets (Bld) [#/Vol] 289 10*3/uL Normal 150-400 [facility] Comment on above: Order Comment: Speci men Type: BLOOD SPECIMENOrdering Facility: [facility] Address: [address] [place], [place] [address] Performed By: #### 5 8410-2 ####[facility] HOSPITALLIA [id number] [place] [address] [place] RBC (Bld) [#/Vol] 5.68 10*6/uL Normal 4.20-6.00 [facility] Comment on above: Order Comment: Speci men Type: BLOOD SPECIMENOrdering Facility: [facility] Address: [address] [place], [place] [address] Performed By: #### 5 8410-2 ####[facility] [id number] [place] [address] [place] WBC (Bld) [#/Vol] 7.40 10*3/uL Normal 3.70-11.00 [facility] Comment on above: Order Comment: Speci men Type: BLOOD SPECIMENOrdering Facility: [facility] Address: [address] [place] [address] Performed By: #### 5 8410-2 ####[facility] [id number] [place] [address] [place] CYSTATIN Con 06-14-2022 Cystatin C [Mass/Vol] 0.87 mg/L Normal 0.61-0.[address] [facility] Comment on above: Order Comment: Speci men Type: BLOOD SPECIMENOrdering Facility: [facility] Address: [address] [place] [address] Performed By: #### 2 4331-1 ####[facility] LABIA [id number] [address] STATES [facility] [id number] [place] [address] [place]#### CYSTC, 2276-4, 2132-9 ####[facility] LABIA [id number] [place] [address] [place] CYSTATIN C EGFR 108 mL/min/1.73m??? Normal >=60 [facility] Comment on above: Order Comment: Speci men Type: BLOOD SPECIMENOrdering Facility: [facility] Address: [address] [place] [address] Result Comment: Mary mated Glomerular Filtration Rate [...] actual GFR. Performed By: #### 2 4331-1 ####[facility] LABCLIA [id number] [address] [id number] [place] [address] [place]#### CYSTC, 6-4, 2132-06 ####[facility] LABCLIA [id number] [place] [address] [place] Ferritin SerPl-mCncon 2021 Ferritin [Mass/Vol] 50.7 ng/mL Normal 30.3-565.7 [facility] Comment on above: Order Comment: Speci men Type: BLOOD SPECIMENOrdering Facility: [facility] Address: [address] [place] [address] Performed By: #### 2 4331-1 ####[facility] LABCLIA [id number] [address] [id number] [place] [address] [place]#### CYSTC, 2276-01, 2132-06 ####[facility] LABIA [id number] [address] [place] Hepatic function 2000 panelo n 06-14-2022 Albumin [Mass/Vol] 4.7 g/dL Normal 3.9-4.9 [facility] Comment on above: Order Comment: Speci men Type: BLOOD SPECIMENOrdering Facility: [facility] Address: [address] [place] [address] Performed By: #### 2 4325-3, 66588-2 ####[facility] [id number] [place] [address] [place] ALP [Catalytic activity/Vol] 96 U/L Normal 38-113 [facility] Comment on above: Order Comment: Speci men Type: BLOOD SPECIMENOrdering Facility: [facility] Address: [address] [place] [address] Performed By: #### 2 4325-3, 98034-4 ####[facility]CL[facility] [id number] [place] [address] [place] ALT [Catalytic activity/Vol] 39 U/L Normal 10-54 [facility] Comment on above: Order Comment: Speci men Type: BLOOD SPECIMENOrdering Facility: [facility] Address: [address] [place] [address] Performed By: #### 2 4325-3, 47545-6 ####[facility]ILLSNCCONCETTAA [id number] [place] [address] [place] AST [Catalytic activity/Vol] 23 U/L Normal 14-40 [facility] Comment on above: Order Comment: Speci men Type: BLOOD SPECIMENOrdering Facility: [facility] Address: [address] [place] [address] Performed By: #### 2 4325-3, 00059-8 ####[facility]WOODCarloNCCONCETTAA [id number] [place] [address] [place] Bilirubin [Mass/Vol] 0.4 mg/dL Normal 0.2-1.3 [facility] Comment on above: Order Comment: Speci men Type: BLOOD SPECIMENOrdering Facility: [facility] Address: [address] [place] [address] Performed By: #### 2 4325-3, 12130-0 ####[facility]CL[facility] [id number] [place] [address] [place] Bilirubin.conjugated [Mass/Vol] mg/dL Normal <0.2 [facility] Comment on above: Order Comment: Speci men Type: BLOOD SPECIMENOrdering Facility: [facility] Address: [address] [place] [address] Performed By: #### 2 4325-3, 31230-7 ####[facility] HOS[facility]ITALLIA [id number] [place] [address] [place] Protein [Mass/Vol] 8.0 g/dL Normal 6.3-8.0 [facility] Comment on above: Order Comment: Speci men Type: BLOOD SPECIMENOrdering Facility: [facility] Address: [address] [place] [address] Performed By: #### 2 4325-3, 72527-9 ####[facility] [id number] [place] [address] [place] Lipid 1996 panelon 2 Cholesterol [Mass/Vol] 186 mg/dL Normal <200 [facility] Comment on above: Order Comment: Speci men Type: BLOOD SPECIMENOrdering Facility: [facility] Address: [address] [place] [address] Result Comment: <200 mg/dL, Desirable 200-239 mg/dL, Borderline high>239 mg/dL, High Performed By: #### 2 4331-1 ####[facility] LABCLIA [id number] [place] [address] [place] [facility] [id number] [place] [address] [place]#### CYSTC, 2276-4, 2132-9 ####[facility] LABCLIA [id number] [place] [address] [place] Cholesterol in HDL [Mass/Vol] 42 mg/dL Normal >39 [facility] Comment on above: Order Comment: Speci men Type: BLOOD SPECIMENOrdering Facility: [facility] Address: [address] [place] [phone] Result Comment: 40-5 9 mg/dL, Acceptable>59 mg/dL, High: Negative risk factor for coronary heart disease<40 mg/dL, Low: Positive risk factor for coronary heart disease Performed By: #### 2 4331-1 ####[facility] LABCLIA [id number] [place] [address] [place] [facility] [id number] [place] [address] [place]#### [place], 2276-01, 2132-06 ####[facility] LABCLIA [id number] [place] [address] [place] Cholesterol in LDL [Mass/Vol] 122 mg/dL High <100 [facility] Comment on above: Order Comment: Speci men Type: BLOOD SPECIMENOrdering Facility: [facility] Address: [address] [place] [phone] Result Comment: <100 mg/dL, Optimal 100-129 mg/dL, Near optimal/above optimal 130-159 mg/dL, Borderline high 160-189 mg/dL, High>189 mg/dL, Very highSecondary prevention optimal LDL Cholesterol levels are recommended to be < 70 mg/dL Performed By: #### 2 4331-1 ####[facility] LABCLIA [id number] [place] [id number] [place] [facility] [id number] [place] [address] [place]#### CYSTC, 2276-01, 2132-06 ####[facility] LABCLIA [id number] [address] [address] [place] Cholesterol in LDL/Cholesterol in HDL [Mass ratio] 2.90 {ratio} High <2.54 [facility] Comment on above: Order Comment: Speci men Type: BLOOD SPECIMENOrdering Facility: [facility] Address: [address] [place] [address] Result Comment: Bouchra patiño:1. National Cholesterol Education Program ATP III Guideline At-A-Glance Quick Desk Reference: National Heart, Lung, and Blood [place]. National Institutes of Health. 2001: NIH Publication No. 01-3305.2. An International Atherosclerosis Society position paper: global recommendations for the management of dyslipidemia: executive summary, Atherosclerosis. 2014: 232(2):410-413. Performed By: #### 2 4331-1 ####[facility] LABCLIA [id number] [address] STATES [facility] [id number] [place] [address] [place]#### CYSTC, 2276-01, 2132-06 ####[facility] LABCLIA [id number] [place] [address] [place] Cholesterol in VLDL [Mass/Vol] 22 mg/dL Normal <30 [facility] Comment on above: Order Comment: Speci men Type: BLOOD SPECIMENOrdering Facility: [facility] Address: [address] [place] [address] Performed By: #### 2 4331-1 ####[facility] LABCLIA [id number] [address] [id number] [place] [address] [place]#### CYSTC, 2276-01, 2132-06 ####[facility] LABCLIA [id number] [place] [address] [place] Cholesterol non HDL [Mass/Vol] 144 mg/dL High <130 [facility] Comment on above: Order Comment: Speci men Type: BLOOD SPECIMENOrdering Facility: [facility] Address: [address] [place] [address] Result Comment: <130 mg/dL, Optimal 130-159 mg/dL, Near optimal/above optimal 160-189 mg/dL, Borderline high 190-219 mg/dL, High>219 mg/dL, Very highSecondary prevention optimal non HDL Cholesterol levels are recommended to be <100 mg/dL Performed By: #### 2 4331-1 ####[facility] LABCLIA [id number] [address] [id number] [place] [address] [place]#### CYSTC, 4, 2132-06 ####[facility] LABCLIA [id number] [place] [address] [place] Cholesterol.total/[place] sterol in HDL [Mass ratio] 4.43 {ratio} Normal <5.10 [facility] Comment on above: Order Comment: Speci men Type: BLOOD SPECIMENOrdering Facility: [facility] Address: [address] [place], [place] [address] Performed By: #### 2 4331-1 ####[facility] LABCLIA [id number] [address] [id number] [place] [address] [place] [facility]#### CYSTC, 2276-01, 2132-06 ####[facility] LABCLIA [id number] [place] [address] [place] FASTING TIME 12 hrs Normal [facility] Comment on above: Order Comment: Speci men Type: BLOOD SPECIMENOrdering Facility: [facility] Address: [address] [place] [address] Performed By: #### 2 4331-1 ####[facility] LABCLIA [id number] [place] [id number] [facility] [id number] [place] [address] [place]#### CYSTC, 6-4, 2132-06 ####[facility] LABCLIA [id number] [place] [address] [place] Triglyceride [Mass/Vol] 111 mg/dL Normal <150 C [facility] Comment on above: Order Comment: Speci men Type: BLOOD SPECIMENOrdering Facility: [facility] Address: [address] [place] [phone] Result Comment: <150 mg/dL, Normal 150-199 mg/dL, Borderline high 200-499 mg/dL, High>499 mg/dL, Very high Performed By: #### 2 4331-1 ####[facility] LABCLIA [id number] [id number] [place] [address] [place]#### CYSTC, 4, 2132-06 ####[facility] LABCLIA [id number] [address] [place] Vit B12 [employer] [facility] 23-2 022 Cobalamin (Vitamin B12) [Mass/Vol] 831 pg/mL Normal 232-1245 [facility] Comment on above: Order Comment: Speci men Type: BLOOD SPECIMENOrdering Facility: [facility] Address: [address] [place] [phone] Performed By: #### 2 4331-1 ####[facility] LABCLIA [id number] [place] [id number] [facility] [id number] [place] [id number] [place]#### CYSTC, 2276-4, 2132-9 ####[facility] LABCLIA [id number] [facility] [place] [address] [place] CNPNon 04-28-2022 CNPN Normal [facility] CNCOon 03-25-2022 CNCO Normal [facility] CNOVon 03-25-2022 CNOV Normal [facility] CNPTOUTREACHon 03-25-2022 CNPTOUTREACH Normal [facility] US KIDNEY/BLADDERon 03-25-20 US KIDNEY[facility]ADDER [facility] Vital Signs Date Time Vital Sign Value Performing Clinician Facility 07-03-2025 08:13-0400 Body height 154.9 cm Pacc 4 Work Phone: [facility] 07-03-2025 08:13-0400 Body mass index (BMI) [Ratio] 19.84 kg/m2 Pacc 4 Work Phone: [facility] 07-03-2025 08:13-0400 Body temperature 97 [degF] Pacc 4 Work Phone: [facility] 07-03-2025 08:13-0400 Body weight 47.63 kg Pacc 4 Work Phone: [facility] Comment on above: verbal 07-03-2025 08:13-0400 Diastolic blood pressure 91 mm[Hg] Pacc 4 Work Phone: [facility] 07-03-2025 08:13-0400 Heart rate 89 /min Pacc 4 Work Phone: [facility] 07-03-2025 08:13-0400 Respiratory rate 18 /min Pacc 4 Work Phone: [facility] 07-03-2025 08:13-0400 SaO2% (BldA) [Mass fraction] 98 % Pacc 4 Work Phone: [facility] 07-03-2025 08:13-0400 Systolic blood pressure 130 mm[Hg] Pacc 4 Work Phone: [facility] 06-11-2025 15:26-0400 Body temperature 98.3 [degF] Dr. Nikita Gramajo DO Work Phone: [facility] 06-11-2025 15:26-0400 Diastolic blood pressure 88 mm[Hg] Dr. Nikita priest DO Work Phone: [facility] 06-11-2025 15:26-0400 Heart rate 96 /min Dr. Nikita Gramajo DO Work Phone: [facility] 06-11-2025 15:26-0400 Respiratory rate 16 /min Dr. Nikita Gramajo DO Work Phone: [facility] 06-11-2025 15:26-0400 SaO2% (BldA) [Mass fraction] 99 % Dr. Nikita Gramajo DO Work Phone: [facility] 06-11-2025 15:26-0400 Systolic blood pressure 133 mm[Hg] Dr. Nikita fitzgerald DO Work Phone: [facility] 06-11-2025 13:58-0400 Body height 154.[address] Nikita Gramajo DO Work Phone: [facility] 06-11-2025 13:58-0400 Body weight 50.[address] Nikita Gramajo DO Work Phone: [facility] 06-11-2025 05:41-0400 Body mass index (BMI) [Ratio] 21.1 kg/m2 Dr. Nikita Gramajo DO Work Phone: [facility] 06-11-2025 02:26-0400 Inhaled oxygen flow rate 3 L/min Dr. Nikita priest DO Work Phone: [facility] 06-07-2025 12:36-0400 Body temperature 98.1 [degF] Dr. Nikita Gramajo DO Work Phone: [facility] 06-07-2025 12:36-0400 Diastolic blood pressure 86 mm[Hg] Dr. Nikita priest DO Work Phone: [facility] 06-07-2025 12:36-0400 Heart rate 118 /min Dr. Nikita Gramajo DO Work Phone: [facility] 06-07-2025 12:36-0400 Respiratory rate 16 /min Dr. Nikita Gramajo DO Work Phone: [facility] 06-07-2025 12:36-0400 SaO2% (BldA) [Mass fraction] 96 % Dr. Nikita Gramajo DO Work Phone: [facility] 06-07-2025 12:36-0400 Systolic blood pressure 120 mm[Hg] Dr. Nikita fitzgerald DO Work Phone: [facility] 06-07-2025 09:56-0400 Body mass index (BMI) [Ratio] 20.7 kg/m2 Dr. Nikita Gramajo DO Work Phone: [facility] 06-07-2025 09:56-0400 Body weight 51.[address] Nikita Gramajo DO Work Phone: [facility] 06-07-2025 09:55-0400 Body height 157.[address] Nikita Gramajo DO Work Phone: [facility] 06-05-2025 09:07-0400 Body height 157.[address] Nikita Gramajo DO Work Phone: [facility] 06-05-2025 09:07-0400 Body mass index (BMI) [Ratio] 18.4 kg/m2 Dr. Nikita Gramajo DO Work Phone: [facility] 06-05-2025 09:07-0400 Body temperature 97.3 [degF] Dr. Nikita Gramajo DO Work Phone: [facility] 06-05-2025 09:07-0400 Body weight 45.[address] Nikita Gramajo DO Work Phone: [facility] 06-05-2025 09:07-0400 Diastolic blood pressure 90 mm[Hg] Dr. Nikita priest DO Work Phone: [facility] 06-05-2025 09:07-0400 Heart rate 78 /min Dr. Nikita Gramajo DO Work Phone: [facility] 06-05-2025 09:07-0400 Respiratory rate 16 /min Dr. Nikita Gramajo DO Work Phone: [facility] 06-05-2025 09:07-0400 SaO2% (BldA) [Mass fraction] 99 % Dr. Nikita Gramajo DO Work Phone: [facility] 06-05-2025 09:07-0400 Systolic blood pressure 130 mm[Hg] Dr. Nikita fitzgerald DO Work Phone: [facility] 02-27-2025 09:01-0400 Body mass index (BMI) [Ratio] 18.4 kg/m2 Dr. Nikita Gramajo DO Work Phone: [facility] 02-27-2025 09:01-0400 Body temperature 97.3 [degF] Dr. Nikita Gramajo DO Work Phone: [facility] 02-27-2025 09:01-0400 Body weight 45.[address] Nikita Gramajo DO Work Phone: [facility] 02-27-2025 09:01-0400 Diastolic blood pressure 96 mm[Hg] Dr. Nikita priest DO Work Phone: [facility] 02-27-2025 09:01-0400 Heart rate 80 /min Dr. Nikita Gramajo DO Work Phone: [facility] 02-27-2025 09:01-0400 Respiratory rate 18 /min Dr. Nikita Gramajo DO Work Phone: [facility] 02-27-2025 09:01-0400 SaO2% (BldA) [Mass fraction] 96 % Dr. Nikita Gramajo DO Work Phone: [facility] 02-27-2025 09:01-0400 Systolic blood pressure 137 mm[Hg] Dr. Nikita fitzgerald DO Work Phone: [facility] 01-24-2025 08:37-0400 Diastolic blood pressure 87 mm[Hg] Kelsie Giraldo MD Work Phone: [facility] 01-24-2025 08:37-0400 Heart rate 82 /min Kelsie Giraldo MD Work Phone: [facility] 01-24-2025 08:37-0400 Systolic blood pressure 125 mm[Hg] Kelsie Giraldo MD Work Phone: [facility] 02-20-2024 20:22-0400 Body height 157.48 cm [facility] 02-20-2024 20:22-0400 Body temperature 96.8 [degF] [facility] 02-20-2024 20:22-0400 Diastolic blood pressure 85 mm[Hg] [facility] 02-20-2024 20:22-0400 Heart rate 82 /min [facility] 02-20-2024 20:22-0400 Respiratory rate 16 /min [facility] 02-20-2024 20:22-0400 SaO2% (BldA) [Mass fraction] 96 % [facility] 02-20-2024 20:22-0400 Systolic blood pressure 122 mm[Hg] [facility] 01-26-2024 08:11-0400 Diastolic blood pressure 85 mm[Hg] Kelsie Giraldo MD Work Phone: [facility] 01-26-2024 08:11-0400 Heart rate 75 /min Kelsie Giraldo MD Work Phone: [facility] 01-26-2024 08:11-0400 Systolic blood pressure 132 mm[Hg] Kelsie Giraldo MD Work Phone: [facility] 08-25-2023 08:14-0400 Body height 154.9 cm Kelsie Giraldo MD Work Phone: [facility] 08-25-2023 08:14-0400 Body weight 40.82 kg Kelsie Giraldo MD Work Phone: [facility] 08-25-2023 08:14-0400 Diastolic blood pressure 80 mm[Hg] Kelsie Giraldo MD Work Phone: [facility] 08-25-2023 08:14-0400 Heart rate 97 /min Kelsie Giraldo MD Work Phone: [facility] 08-25-2023 08:14-0400 Systolic blood pressure 119 mm[Hg] Kelsie Giraldo MD Work Phone: [facility] 06-05-2023 15:16-0400 Body height 154.9 cm Marifer Dowd MD Work Phone: [facility] 06-05-2023 15:16-0400 Body temperature 98.01 [degF] Marifer Dowd MD Work Phone: [facility] 06-05-2023 15:16-0400 Body weight 45.36 kg Marifer Dowd MD Work Phone: [facility] 06-05-2023 15:16-0400 Diastolic blood pressure 84 mm[Hg] Marifer Dowd MD Work Phone: [facility] 06-05-2023 15:16-0400 Heart rate 94 /min Marifer Dowd MD Work Phone: [facility] 06-05-2023 15:16-0400 Systolic blood pressure 124 mm[Hg] Marifer Dowd MD Work Phone: [facility] 04-17-2023 11:24-0400 Body height 154.9 cm Marifer Dowd MD Work Phone: [facility] 04-17-2023 11:24-0400 Body temperature 97.39 [degF] Marifer Dowd MD Work Phone: [facility] 04-17-2023 11:24-0400 Diastolic blood pressure 76 mm[Hg] Marifer Dowd MD Work Phone: [facility] 04-17-2023 11:24-0400 Heart rate 92 /min Marifer Dowd MD Work Phone: [facility] 04-17-2023 11:24-0400 Respiratory rate 12 /min Marifer Dowd MD Work Phone: [facility] 04-17-2023 11:24-0400 Systolic blood pressure 115 mm[Hg] Marifer Dowd MD Work Phone: [facility] 03-15-2023 15:03-0400 SaO2% (BldA) [Mass fraction] 99 % NIKITA GAUTHIER [facility] Comment on above: Order Comment: Specimen Type: ARTERIAL B LOOD SPECIMENOrdering Facility: [facility] Address: [address] [place] [address] Performed By: #### A LLBG ####[facility] [id number] 56 [address] 03-15-2023 13:35-0400 SaO2% (BldA) [Mass fraction] 99 % NIKITA GAUTHIER [facility] Comment on above: Order Comment: Specimen Type: ARTERIAL B LOOD SPECIMENOrdering Facility: [facility] Address: [address] [place] [address] Performed By: #### A LLBG ####[facility] LABIA [id number] [address] 03-15-2023 11:34-0400 SaO2% (BldA) [Mass fraction] 100 % NIKITA GAUTHIER [facility] Comment on above: Order Comment: Specimen Type: ARTERIAL B LOOD SPECIMENOrdering Facility: [facility] Address: [address] [place] [address] Performed By: #### A LLBG ####[facility] [id number] [address] 03-15-2023 05:55-0400 SaO2% (BldA) [Mass fraction] 99 % NIKITA GAUTHIER [facility] Comment on above: Order Comment: Specimen Type: ARTERIAL B LOOD SPECIMENOrdering Facility: [facility] Address: [address] [place] [address] Performed By: #### A LLBG ####[facility] LABCLIA [id number] [place] [id number] [facility] 03-15-2023 01:59-0400 SaO2% (BldA) [Mass fraction] 99 % NIKITA GAUTHIER [facility] Comment on above: Order Comment: Specimen Type: ARTERIAL B LOOD SPECIMENOrdering Facility: [facility] Address: [address] [place] [address] Performed By: #### A LLBG ####[facility] [id number] [address] 03-15-2023 00:20-0400 SaO2% (BldA) [Mass fraction] 100 % NIKITA GAUTHIER [facility] Comment on above: Order Comment: Specimen Type: ARTERIAL B LOOD SPECIMENOrdering Facility: [facility] Address: [address] [place] [address] Performed By: #### A LLBG ####[facility] [id number] [place] [id number] [facility] 03-14-2023 22:06-0400 SaO2% (BldA) [Mass fraction] 100 % NIKITA GAUTHIER [facility] Comment on above: Order Comment: Specimen Type: ARTERIAL B LOOD SPECIMENOrdering Facility: [facility] Address: [address] [place], [place] [address] Performed By: #### A LLBG ####[facility] [id number] [place] [id number] [facility] 03-14-2023 20:05-0400 SaO2% (BldA) [Mass fraction] 99 % NIKITA GAUTHIER [facility] Comment on above: Order Comment: Specimen Type: ARTERIAL B LOOD SPECIMENOrdering Facility: [facility] Address: [address] Performed By: #### A LLMG ####[facility] LABCLIA [id number] [place] [id number] [facility] 03-14-2023 18:42-0400 SaO2% (BldA) [Mass fraction] 99 % NIKITA GAUTHIER [facility] Comment on above: Order Comment: Specimen Type: ARTERIAL B LOOD SPECIMENOrdering Facility: [facility] Address: [address] [place] [address] Performed By: #### A LLMG ####[facility] LABCLIA [id number] [place] [id number] [facility] 03-14-2023 17:33-0400 SaO2% (BldA) [Mass fraction] 99 % NIKITA GAUTHIER [facility] Comment on above: Order Comment: Specimen Type: ARTERIAL B LOOD SPECIMENOrdering Facility: [facility] Address: [address] [place] [address] Performed By: #### A LLBG ####[facility] LABCLIA [id number] [place] [id number] [facility] 03-14-2023 14:16-0400 SaO2% (BldA) [Mass fraction] 100 % NIKITA GAUTHIER [facility] Comment on above: Order Comment: Specimen Type: ARTERIAL B LOOD SPECIMENOrdering Facility: [facility] Address: [address] [place] [id number] Performed By: #### A LLMG ####[facility] LABCLIA [id number] [place] [id number] [facility] 03-14-2023 13:02-0400 SaO2% (BldA) [Mass fraction] 99 % NIKITA GAUTHIER [facility] Comment on above: Order Comment: Specimen Type: ARTERIAL B LOOD SPECIMENOrdering Facility: [facility] Address: [address] [place] [address] Performed By: #### A LLMG ####[facility] LABCLIA [id number] [address] [facility] 03-14-2023 12:09-0400 SaO2% (BldA) [Mass fraction] 99 % NIKITA GAUTHIER [facility] Comment on above: Order Comment: Specimen Type: ARTERIAL B LOOD SPECIMENOrdering Facility: [facility] Address: [address] [place] [address] Performed By: #### A LLMG ####[facility] [id number] [address] [facility] 02-16-2023 12:44-0400 Body height 154.9 cm Pacc 2 Work Phone: [facility] 02-16-2023 12:44-0400 Body temperature 97.59 [degF] Pacc 2 Work Phone: [facility] 02-16-2023 12:44-0400 Body weight 40.82 kg Pacc 2 Work Phone: [facility] 02-16-2023 12:44-0400 Diastolic blood pressure 71 mm[Hg] Pacc 2 Work Phone: [facility] 02-16-2023 12:44-0400 Heart rate 69 /min Pacc 2 Work Phone: [facility] 02-16-2023 12:44-0400 SaO2% (BldA) [Mass fraction] 99 % Pacc 2 Work Phone: [facility] 02-16-2023 12:44-0400 Systolic blood pressure 120 mm[Hg] Pacc 2 Work Phone: [facility] 02-16-2023 11:23-0400 Body height 154.9 cm Harry Shore MD Work Phone: [facility] 02-16-2023 11:23-0400 Body temperature 97.3 [degF] Harry Shore MD Work Phone: [facility] 02-16-2023 11:23-0400 Body weight 40.82 kg Harry Shore MD Work Phone: [facility] 02-16-2023 11:23-0400 Diastolic blood pressure 81 mm[Hg] Harry Russo Work Phone: [facility] 02-16-2023 11:23-0400 Heart rate 70 /min Harry Shore MD Work Phone: [facility] 02-16-2023 11:23-0400 Respiratory rate 16 /min Harry Shore MD Work Phone: [facility] 02-16-2023 11:23-0400 SaO2% (BldA) [Mass fraction] 99 % Harry Shore MD Work Phone: [facility] 02-16-2023 11:23-0400 Systolic blood pressure 126 mm[Hg] Harry Shore MD Work Phone: [facility] 12-19-2022 11:14-0500 Body height 154.9 cm Marifer Dowd MD Work Phone: [facility] 12-19-2022 11:14-0500 Body temperature 97.7 [degF] Marifer Dowd MD Work Phone: [facility] 12-19-2022 11:14-0500 Diastolic blood pressure 73 mm[Hg] Marifer Dowd MD Work Phone: [facility] 12-19-2022 11:14-0500 Heart rate 92 /min Marifer Dowd MD Work Phone: [facility] 12-19-2022 11:14-0500 Respiratory rate 15 /min Marifer Dowd MD Work Phone: [facility] 12-19-2022 11:14-0500 Systolic blood pressure 116 mm[Hg] Marifer Dowd MD Work Phone: [facility] 12-01-2022 13:15-0500 Body height 157.[address] Omi Adams Work Phone: [facility] 11-28-2022 11:42-0500 Body mass index (BMI) [Ratio] 18.1 kg/m2 Dr. Omi Adams Work Phone: [facility] 11-28-2022 11:42-0500 Body temperature 97.6 [degF] Dr. Omi Adams Work Phone: [facility] 11-28-2022 11:42-0500 Body weight 44.[address] Omi Adams Work Phone: [facility] 11-28-2022 11:42-0500 Diastolic blood pressure 81 mm[Hg] Dr. Omi Adams Work Phone: [facility] 11-28-2022 11:42-0500 Heart rate 109 /min Dr. Omi Adams Work Phone: [facility] 11-28-2022 11:42-0500 Respiratory rate 18 /min Dr. Omi Adams Work Phone: [facility] 11-28-2022 11:42-0500 SaO2% (BldA) [Mass fraction] 98 % Dr. Omi Adams Work Phone: [facility] 11-28-2022 11:42-0500 Systolic blood pressure 122 mm[Hg] Dr. Omi Adams Work Phone: [facility] 08-01-2022 10:08-0400 Body height 154.9 cm Marifer Dowd MD Work Phone: [facility] 08-01-2022 10:08-0400 Body temperature 98.71 [degF] Marifer Dowd MD Work Phone: [facility] 08-01-2022 10:08-0400 Body weight 46.72 kg Marifer Dowd MD Work Phone: [facility] 08-01-2022 10:08-0400 Diastolic blood pressure 73 mm[Hg] Marifer Dowd MD Work Phone: [facility] 08-01-2022 10:08-0400 Heart rate 92 /min Marifer Dowd MD Work Phone: [facility] 08-01-2022 10:08-0400 Systolic blood pressure 126 mm[Hg] Marifer Dowd MD Work Phone: [facility] 06-25-2022 16:06-0400 Body temperature 97.9 [degF] Alina Weichler DO Work Phone: [facility] 06-25-2022 16:06-0400 Diastolic blood pressure 79 mm[Hg] Alina Weichler D O Work Phone: [facility] 06-25-2022 16:06-0400 Heart rate 84 /min Alina Weichler DO Work Phone: [facility] 06-25-2022 16:06-0400 Respiratory rate 24 /min Alina Weichler DO Work Phone: [facility] 06-25-2022 16:06-0400 SaO2% (BldA) [Mass fraction] 97 % Alina Weichler DO Work Phone: [facility] 06-25-2022 16:06-0400 Systolic blood pressure 116 mm[Hg] Alina Weichler DO Work Phone: [facility] 06-25-2022 14:19-0400 Body mass index (BMI) [Ratio] 25.24 kg/m2 Alina Weichler DO Work Phone: [facility] 06-25-2022 14:19-0400 Body weight 46 kg Alina Weichler DO Work Phone: [facility] 08-28-2022 11:07-0400 Body mass index (BMI) [Ratio] 25.35 kg/m2 Misha Camarena MD Work Phone: [facility] 06-19-2022 11:07-0400 Body weight 46.2 kg Misha Camarena MD Work Phone: [facility] 06-19-2022 10:55-0400 Body temperature 97.9 [degF] Misha Camarena MD Work Phone: [facility] 06-19-2022 10:55-0400 Diastolic blood pressure 86 mm[Hg] Misha Camarena MD Work Phone: [facility] 06-19-2022 10:55-0400 Heart rate 97 /min Misha Camarena MD Work Phone: [facility] 06-19-2022 10:55-0400 Respiratory rate 24 /min Misha Camarena MD Work Phone: [facility] 06-19-2022 10:55-0400 SaO2% (BldA) [Mass fraction] 100 % Misha Camarena MD Work Phone: [facility] 06-19-2022 10:55-0400 Systolic blood pressure 126 mm[Hg] Misha Camarena MD Work Phone: 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 Start: 07-03-2025 End: 07-07-2025 ambulatory Suki Guzman APRN.VIDEOTAPE EDITOR Work Phone: Urology Start: 07-03-2025 End: 07-03-2025 Patient encounter procedure Suki Guzmantacos AVENDANOVIDEOTAPE EDITOR Work Phone: Urology Comment on above: Pre-op exam (Primary Dx); Nephrolithiasis Start: 07-03-2025 End: 07-03-2025 Admission to establishment Pacc Main 4 Work Phone: Pre Anesthesia Start: 07-03-2025 End: 07-03-2025 Anesthesia consultation Pacc Main 4 Work Phone: Pre Anesthesia Comment on above: Pre-op evaluation (P rimary Dx); Spina bifida, unspecified hydrocephalus presence, unspecified spinal region (HCC); NIGEL (obstructive sleep apnea); S/P ventriculoperitoneal shunt; Neurogenic bladder; Colostomy in place (HCC); Kidney stone; Hx of Tachycardia; Arnold-Chiari malformation (HCC); Difficult intravenous access Start: 07-03-2025 End: 07-03-2025 Preprocedural examination done Suki Guzman APRN.VIDEOTAPE EDITOR Work Phone: [facility] Start: 06-17-2025 End: 06-17-2025 Telephone encounter Verna Schuster RN Angio Comment on above: Follow Up Start: 06-16-2025 End: 06-16-2025 Telephone encounter Pat Lin RN Urology Comment on above: Returning Patient's Call Start: 06-13-2025 End: 06-15-2025 ambulatory Pat Lin RN Urology Start: 06-13-2025 End: 06-16-2025 Telephone encounter Chiara Beltran RN Angio Comment on above: IR Inpatient Tube Ap pointment Request Start: 06-11-2025 Non-patient / Non-visit Dr. [facility] Work Phone: Start: 06-10-2025 Non-patient / Non-visit Dr. [facility] Work Phone: Start: 06-09-2025 Non-patient / Non-visit Dr. Arianna [facility] Work Phone: Start: 06-08-2025 Non-patient / Non-visit Dr. Arianna Qiu MD -[facility] Work Phone: Start: 06-07-2025 Non-patient / Non-visit Dr. Arianna Qiu MD [facility] Work Phone: Start: 06-07-2025 ambulatory Nikita Gramajo Facility: [facility] Start: 06-07-2025 End: 06-11-2025 Evaluation and management of inpatient Dr. Gregorio Qiu MD -Progressive Care Unit Work Phone: Start: 06-05-2025 End: 06-05-2025 Patient encounter procedure Alexa Peterson NP-C -[facility] Work Phone: Start: 06-05-2025 End: 06-05-[address] Nikita Gramajo DO Work Phone: -[facility] Start: 05-01-2025 End: 05-01-2025 Telephone encounter Inga Astudillo RN Urology Start: 02-27-2025 End: 02-27-2025 Patient encounter procedure Alexa Peterson NP-C -[facility] Work Phone: Start: 02-27-2025 End: 02-27-2025 ambulatory Nikita Gramajo Facility:[facility] Start: 01-28-2025 End: 01-29-2025 Documentation procedure Kelsie Giraldo MD Work Phone: Urology Start: 01-28-2025 End: 01-29-2025 Letter encounter Kelsie Giraldo MD Work Phone: Urology Start: 01-27-2025 End: 01-27-2025 Telephone encounter Nikita Gauthier MD Work Phone: [facility] [place] Start: 01-26-2025 End: 03-28-2025 Follow-up encounter Nikita Gauthier MD Work Phone: [facility] [place] Start: 01-24-2025 End: 01-27-2025 ambulatory Kelsie Giraldo MD Work Phone: Urology Start: 01-24-2025 End: 01-24-2025 Subsequent hospital visit by physician Us Main A21 1 Radiology Comment on above: Presence of suprapub ic catheter (HCC) [Z93.59] Start: 01-24-2025 End: 01-24-2025 Office outpatient visit 15 minutes Nikita Gauthier MD Work Phone: Internal Medicine [facility] Comment on above: Spina bifida, unspec ified [...] & Comment on above: Spina Bifida on Apri l 2024 Start: 12-11-2024 End: 01-02-2025 E-mail encounter from caregiver [facility] Start: 12-02-2024 End: 12-02-2024 ambulatory Kelsie Giraldo MD Work Phone: Urology Comment on above: Dequan Cole Start: 08-05-2024 End: 08-05-2024 ambulatory NIKITA GRAMAJO DO Facility:[facility] Start: 08-05-2024 End: 08-05-2024 Patient encounter procedure NIKITA BELTRANFLEX RUBIN [facility] Start: 06-27-2024 End: 06-27-2024 Telephone encounter Dank Richey RN Work Phone: Urology Comment on above: 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; Orders Start: 02-23-2024 Telephone encounter Nikita sue MD Work Phone: [facility] [place] Comment on above: CMN forms Start: 02-20-2024 End: 02-20-2024 Emergency department patient visit [facility] Work Phone: Start: 02-12-2024 Orders Only Sabiha Drake on 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 Start: 01-26-2024 End: 01-26-2024 Office outpatient visit 25 minutes Nikita Gauthier MD Work Phone: Internal Medicine [facility] Comment on above: Spina bifida, unspec ified [...] Dx) Start: 09-07-2023 End: 09-12-2023 ambulatory NIKITA GRAMAJO DO Facility:[facility] Start: 09-07-2023 End: 09-11-2023 Outreach Lab NIKITA GRAMAJO DO [facility] Start: 08-28-2023 Documentation procedure Kelsie Giraldo MD Work Phone: [facility] Start: 08-28-2023 Letter encounter Kelsie Russo Work [...] Nikita sue MD Work Phone: [facility] [place] Comment on above: G-Tube Feeds Start: 07-20-2023 Telephone encounter Nikita sue MD Work Phone: [facility] [place] Comment on above: Forms Start: 06-07-2023 Orders Only Patricia Montalvo APRN.VIDEOTAPE EDITOR Work Phone: General Surgery Comment on above: [...] manag ement of inpatient NIKITA GRAMAJO IV Facility:[facility] Start: 02-16-2023 End: 02-17-2023 ambulatory [facility] Facility:[facility] Start: 02-16-2023 End: 02-17-2023 ambulatory [facility] Facility:[facility] Start: 02-16-2023 Encounter for other preprocedural examination NIKITA GAUTHIER [facility] Start: 02-16-2023 End: 02-16-2023 Admission to establishment Pacc Main 2 Work Phone: [facility] Start: 02-16-2023 End: 02-16-2023 ambulatory Pacc [...] 12-29-[address] Omi Adams Work Phone: [facility] Work Phone: Start: 12-29-2022 End: 12-29-[address] Omi Adams Work Phone: [facility] Services/Neurology Start: 12-21-2022 ambulatory Marifer Russo Work Phone: [facility] Comment on above: 5.23.23 Cure (Parast omal hernia repair 10 hours los 10) Start: 12-21-2022 Preprocedural examin ation done Marifer Dowd MD Work Phone: [facility] Start: 12-19-2022 End: 12-20-2022 ambulatory MARIFER DOWD Facility:[facility] Start: 12-19-2022 End: 12-19-2022 Patient encounter procedure Marifer Dowd MD Work Phone: General Surgery Comment on above: Parastomal hernia wi thout obstruction or gangrene (Primary Dx) Start: 12-01-2022 End: 12-01-[address] Omi Adams Work Phone: [facility] Start: 11-02-2022 End: 11-03-2022 ambulatory NIKITA GRAMAJO DO Facility:[facility] Start: 11-02-2022 End: 11-02-2022 Patient encounter procedure NIKITA GRAMAJO DO [facility] Start: 08-01-2022 End: 08-02-2022 ambulatory MARIFER DOWD Facility:[facility] Start: 08-01-2022 End: 08-01-2022 Patient encounter procedure Marifer Dowd MD Work Phone: General Surgery Comment on above: Parastomal hernia wi th obstruction and without gangrene (Primary Dx) Start: 07-05-2022 End: 07-05-2022 ambulatory ZACK [facility] Start: 06-25-2022 End: 06-25-2022 Emergency department patient visit NIKITA Ansari [facility] Start: 06-25-2022 End: 06-25-2022 Emergency department patient visit Alina Killian Tatum DO Work Phone: [facility] Comment on above: Abdominal wall herni a (Primary Dx) Start: 06-24-2022 End: 06-25-2022 ambulatory ZACK [facility] Start: 06-19-2022 End: 06-19-2022 Emergency department patient visit MISHA CAMARENA [facility] Start: 06-19-2022 End: 06-19-2022 Emergency department patient visit Misha Camarena MD Work Phone: [facility] Comment on above: Gastroenteritis (Carito dank Dx) Start: 06-14-2022 End: 06-14-2022 ambulatory NIKITA GAUTHIER Facility:[facility] Start: 06-03-2022 End: 06-03-2022 ambulatory NIKITA GRAMAJO KENNEDY Facility: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) Start: 03-25-2022 End: 03-26-2022 ambulatory Kelsie Giraldo MD Work Phone: Urology Start: 03-25-2022 Documentation procedure Kelsie Giraldo MD Work Phone: [facility] Start: 03-25-2022 Letter encounter Kelsie Russo Work Phone: Urology Start: 03-25-2022 End: 03-25-2022 Subsequent hospital visit by physician Main A21 [...] anemia Start: 11-15-2021 Telephone encounter Batool Ruiz APRN.VIDEOTAPE EDITOR Work Phone: Pre Anesthesia Comment on above: Pre-Op Update (+urin e cutlure) Procedures Date Procedure Procedure Detail Performing Clinician Start: 07-03-2025 Urnls dip stick/tablet reagent auto microscopy Xochitl Hoffman MD Work Phone: Start: 06-11-[address] Nikita Gramajo DO Work Phone: Start: 06-11-2025 Serum inorganic phosphate measurement Dr. Nikita Gramajo DO Work Phone: Start: 06-09-2025 CT of abdomen and pelvis without contrast Dr. Nikita Gramajo DO Work Phone: Start: 06-07-[address] acid assay Dr[address] Nikita Gramajo DO Work Phone: Start: 06-07-[address] Nikita rGamajo DO Work Phone: Start: 06-07-2025 Legionella pneumophila antigen assay Dr. Nikita Gramajo DO Work Phone: Start: 06-07-2025 SARS-CoV-2, Influenza & RSV (PCR) Dr. Nikita Gramajo DO Work Phone: Start: 06-07-2025 End: 06-07-2025 Streptococcus pneumoniae antigen assay Dr. Nikita Gramajo DO Work Phone: Start: 06-07-[address] Nikita Gramajo DO Work Phone: Start: 06-07-2025 Urnls dip stick/tablet reagent auto microscopy Dr. Nikita Gramajo DO Work Phone: Start: 06-07-[address] Nikita Gramajo DO Work Phone: Start: 01-24-2025 Us retroperitoneal real time w/image complete Kelsie Giraldo MD Work Phone: Start: 01-26-2024 Us retroperitoneal real time w/image complete Kelsie Giraldo MD Work Phone: Start: 02-16-2023 Antibody screen NIKITA GAUTHIER Comment on above: Order Comment: Specimen Type: BLOOD SPEC IMENOrdering Facility: [facility] Address: [address] [place] [address] Performed By: #### T [id number] ####CC MAIN BLOOD BANKCLIA [id number] [address] [facility] [place] Start: 12-29-2022 Plain chest X-ray Dr. 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 Plan of Treatment Date Care Activity Detail Author Start: 07-29-2025 End: 07-29-2025 Patient encounter procedure 07/29/2025 11:00 AM EDT Office Visit Urology [address] [address] [place] [address] [place] [address] Neph Tube Removal Urology Comment on above: Neph Tube Removal Start: 07-17-2025 End: 07-17-2025 Admission to same day surgery center 07/17/2025 9:42 AM EDT - 07/17/2025 11:42 AM EDT Surgery Admitting [address] [place] [address] [place] [address] [place] [address] PERC NEPHROLITHOTOMY LITHOTRIPSY,STONE EXTRACTION,ANTEGRADE URETEROSCOPY,STENT PLACEMENT WHEN PERFORMED INCD IMAGING UP TO 2cm Admitting Comment on above: PERC NEPHROLITHOTOMY LITHOTRIPSY,STONE E XTRACTION,ANTEGRADE URETEROSCOPY,STENT PLACEMENT WHEN PERFORMED INCD IMAGING UP TO 2cm Start: 07-17-2025 End: 07-17-2025 Prq nephrostolithotomy/pyel ostolithotomy 2 cm PERC NEPHROLITHOTOMY LITHOTRIPSY,STONE EXTRACTION,ANTEGRADE URETEROSCOPY,STENT PLACEMENT WHEN PERFORMED INCD IMAGING UP TO 2cm Nephrolithiasis 07/17/2025 9:42 AM EDT [facility] Start: 07-17-2025 End: 07-17-2025 Admission to same day surgery center 07/17/2025 7:30 AM EDT - 07/17/2025 9:15 AM EDT Surgery Admitting [address] [place] [address] [place] [address] [place] [address] PERC NEPHROLITHOTOMY LITHOTRIPSY,STONE EXTRACTION,ANTEGRADE URETEROSCOPY,STENT PLACEMENT WHEN PERFORMED INCD IMAGING UP TO 2cm Admitting Comment on above: PERC NEPHROLITHOTOMY LITHOTRIPSY,STONE E XTRACTION,ANTEGRADE URETEROSCOPY,STENT PLACEMENT WHEN PERFORMED INCD IMAGING UP TO 2cm Start: 07-17-2025 End: 07-17-2025 Prq nephrostolithotomy/pyel ostolithotomy 2 cm PERC NEPHROLITHOTOMY LITHOTRIPSY,STONE EXTRACTION,ANTEGRADE URETEROSCOPY,STENT PLACEMENT WHEN PERFORMED INCD IMAGING UP TO 2cm Nephrolithiasis 07/17/2025 7:30 AM EDT [facility] Start: 07-17-2025 Subsequent hospital visit by physician Admitting Comment on above: Nephrolithiasis [N20.0] Start: 07-10-2025 End: 07-10-2025 Patient encounter procedure 07/10/2025 2:15 PM EDT Office Visit [facility] [address] [place] [address] Mayte Juarez, PT, DPT [address] [place] [address] wheelchair [facility] Comment on above: wheelchair Start: 07-10-2025 End: 07-10-2025 ambulatory 07/10/2025 2:00 PM EDT OT/PT/Speech Visit [facility] [address] [place], [place] [id number] Gloria Moralez, PT wheelchair [facility] [place] Comment on above: wheelchair Start: 07-03-2025 End: 10-02-2025 aPTT in Platelet poor plasma by Coagulation assay ACTIVATED PARTIAL THROMBOPLASTIN TIME Lab Routine Nephrolithiasis Expected: 07/03/2025, Expires: 10/02/2025 [facility] Comment on above: Expected: 07/03/2025, Expires: Start: 07-03-2025 End: 10-02-2025 BACTERIAL CULTURE, UROLOGY PRESURGICAL SCREENING, URINE [facility] Comment on above: Expected: 07/03/2025, Expires: Start: 07-03-2025 End: 10-02-2025 CBC W Auto Differential panel - Blood COMPLETE BLOOD COUNT AND DIFFERENTIAL Lab Routine Nephrolithiasis Expected: 07/03/2025, Expires: 10/02/2025 [facility] Work Phone: Comment on above: Expected: 07/03/2025, Expires: Start: 07-03-2025 End: 10-02-2025 Comprehensive metabolic 2000 panel - Serum or Plasma COMPREHENSIVE METABOLIC PANEL Lab Routine Nephrolithiasis Expected: 07/03/2025, Expires: 10/02/2025 [facility] Comment on above: Expected: 07/03/2025, Expires: Start: 07-03-2025 End: 10-02-2025 PT panel - Platelet poor plasma by Coagulation assay PROTHROMBIN TIME Lab Routine Nephrolithiasis Expected: 07/03/2025, Expires: 10/02/2025 [facility] Comment on above: Expected: 07/03/2025, Expires: Start: 07-03-2025 End: 10-02-2025 TYPE AND SCREEN,30 DAY TYPE AND SCREEN,30 DAY Blood Bank Routine Nephrolithiasis Expected: 07/03/2025, Expires: 10/02/2025 [facility] Comment on above: Expected: 07/03/2025, Expires: Start: 07-03-2025 End: 10-02-2025 Urinalysis complete panel - Urine URINALYSIS, WITH MICROSCOPIC Lab Routine Nephrolithiasis Expected: 07/03/2025, Expires: 10/02/2025 [facility] Comment on above: Expected: 07/03/2025, Expires: Start: 07-03-2025 End: 07-03-2025 Patient encounter procedure 07/03/2025 10:30 AM EDT Office Visit Urology [address] [address] Suki Guzman APRN.VIDEOTAPE EDITOR [address] [place] [address] t/o & nurse visit or visit with emil for UA/UCX from neph tube. Urology Comment on above: t/o & nurse visit or visit with emil for UA/UCX from neph tube. Start: 07-03-2025 End: 07-03-2025 Patient encounter procedure Admitting Comment on above: SLICK pre op~labs Start: 07-03-2025 End: 07-03-2025 Anesthesia consultation 07/03/2025 8:00 AM EDT PAT Pre Anesthesia [address] [place] [address] 4, P[address] [place] [address] PRE OP~PACC SURGEY 07/17 DR HOFFMAN Pre Anesthesia Comment on above: PRE OP~PACC SURGEY 07/17 DR HOFFMAN Start: 06-23-2025 Influenza vaccination [facility] Start: 06-16-2025 End: 06-16-2025 Patient encounter procedure 06/16/2025 2:30 PM EDT Office Visit [facility] [facility] [place] [id number] pre op [facility] Comment on above: pre op Start: 06-11-2025 Patient discharge [facility] Start: 06-09-2025 [facility] Start: 06-09-2025 Consultation [facility] Start: 06-08-2025 Blood culture Blood Culture [facility] Start: 06-08-2025 End: 06-08-2025 [facility] Start: 06-08-2025 Care regimes management [facility] Start: 06-08-2025 Notification of physician [facility] Start: 06-08-2025 [facility] Start: 06-08-2025 Consultation [facility] Start: 06-07-2025 Bacteria identified in Blood by Culture Blood Culture [facility] Start: 06-07-2025 Blood culture Blood Culture [facility] Start: 06-07-2025 SARS-CoV-2, Influenza & RSV (PCR) SARS-CoV-2, Influenza & RSV (PCR) [facility] Start: 06-07-2025 Following clinical pathway protocol [facility] Start: 06-07-2025 Streptococcus pneumoniae antigen assay [facility] Start: 06-07-2025 [facility] Start: 06-07-2025 Ambulation without limitation [facility] Start: 06-07-2025 Assessment of risk of venous thromboembolism [facility] Start: 06-07-2025 Incentive spirometry [facility] Start: 06-07-2025 Insertion of catheter into peripheral vein [facility] Start: 06-07-2025 Measuring intake and output [facility] Start: 06-07-2025 Oxygen therapy [facility] Start: 06-07-2025 Providing care according to standard [facility] Start: 06-07-2025 Referral to occupational therapist [facility] Start: 06-07-2025 Referral to service [facility] Start: 06-07-2025 Admission procedure [facility] Start: 06-07-2025 Verification routine [facility] Start: 06-07-2025 Cardiac monitoring [facility] Start: 06-07-2025 Catheterization of vein [facility] Start: 06-07-2025 Partial thromboplastin time, activated [facility] Start: 06-07-2025 Prothrombin time [facility] Start: 06-07-2025 Bacteria identified in Sputum by Culture [facility] Start: 06-07-2025 Bacterial nucleic acid assay [facility] Start: 06-07-2025 End: 06-07-2025 [facility] Start: 06-07-2025 [facility] Start: 06-07-2025 Patient referral to dietitian [facility] Start: 01-16-2025 End: 01-02-2026 Basic metabolic 2000 panel - Serum or Plasma BASIC METABOLIC PANEL Lab Routine Presence of suprapubic catheter (HCC) Neurogenic bladder Expected: 01/16/2025 (Approximate), Expires: 01/02/2026 [facility] Comment on above: Expected: 01/16/2025 (Approximate), Expi res: 01/02/2026 Start: 01-16-2025 End: 01-02-2026 Cobalamin (Vitamin B12) [Mass/volume] in Serum or Plasma VITAMIN B12 Lab Routine Presence of suprapubic catheter (HCC) Neurogenic bladder Expected: 01/16/2025 (Approximate), Expires: 01/02/2026 [facility] Comment on above: Expected: 01/16/2025 (Approximate), Expi res: 01/02/2026 Start: 01-16-2025 End: 01-02-2026 CYSTATIN C CYSTATIN C Lab Routine Presence of suprapubic catheter (HCC) Neurogenic bladder Expected: 01/16/2025 (Approximate), Expires: 01/02/2026 [facility] Comment on above: Expected: 01/16/2025 (Approximate), Expi res: 01/02/2026 Start: 01-16-2025 End: 02-01-2026 US Kidney - bilateral and Urinary bladder US KIDNEY/BLADDER Radiology Routine Presence of suprapubic catheter (HCC) Neurogenic bladder Expected: 01/16/2025 (Approximate), Expires: 02/01/2026 [facility] Work Phone: Comment on above: Expected: 01/16/2025 (Approximate), Expi res: 02/01/2026 Start: 2024 HPV Vaccine (1 - 3-dose SCDM series) HPV Vaccine (1 - 3-dose SCDM series) [facility] Start: 06-23-2024 Covid-19 Vaccine ( season) Covid-19 Vaccine ( season) [facility] Start: 06-23-2024 Covid-19 Vaccine ( season) Covid-19 Vaccine ( season) [facility] Start: 06-23-2024 Influenza vaccination [facility] Start: 02-20-2024 [facility] Start: 01-18-2024 End: 01-03-2025 Basic metabolic 2000 panel - Serum or Plasma BASIC METABOLIC PNL Lab Routine Neurogenic bladder Expected: 01/18/2024 (Approximate), Expires: 01/03/2025 [facility] Work Phone: Comment on above: Expected: 01/18/2024 (Approximate), Expi res: 01/03/2025 Start: 01-18-2024 End: 01-03-2025 Cobalamin (Vitamin B12) [Mass/volume] in Serum or Plasma VITAMIN B12 BLOOD Lab Routine Neurogenic bladder Expected: 01/18/2024 (Approximate), Expires: 01/03/2025 [facility] Work Phone: Comment on above: Expected: 01/18/2024 (Approximate), Expi res: 01/03/2025 Start: 01-18-2024 End: 01-03-2025 CYSTATIN C CYSTATIN C Lab Routine Neurogenic bladder Expected: 01/18/2024 (Approximate), Expires: 01/03/2025 [facility] Work Phone: Comment on above: Expected: 01/18/2024 (Approximate), Expi res: 01/03/2025 Start: 10-23-2023 Behavioral Health Screening Behavioral Health Screening [facility] Start: 10-23-2023 Depression Assessment Depression Assessment [facility] Start: 06-23-2023 Covid-19 Vaccine () Covid-19 Vaccine () [facility] Start: 06-23-2023 Influenza vaccination [facility] Start: 12-21-2022 End: 12-22-2023 aPTT in Platelet poor plasma by Coagulation assay ACTIVATED PTT Lab Routine Preoperative examination Parastomal hernia without obstruction or gangrene Expected: 12/21/2022, Expires: 12/22/2023 [facility] Work Phone: Comment on above: Expected: 12/21/2022, Expires: 4 Start: 12-21-2022 End: 12-22-2023 CBC W Auto Differential panel - Blood CBC + DIFF Lab Routine Preoperative examination Parastomal hernia without obstruction or gangrene Expected: 12/21/2022, Expires: 12/22/2023 [facility] Work Phone: Comment on above: Expected: 12/21/2022, Expires: 4 Start: 12-21-2022 End: 12-22-2023 Comprehensive metabolic 2000 panel - Serum or Plasma COMP METABOLIC PANEL Lab Routine Preoperative examination Parastomal hernia without obstruction or gangrene Expected: 12/21/2022, Expires: 12/22/2023 [facility] Work Phone: Comment on above: Expected: 12/21/2022, Expires: 4 Start: 12-21-2022 End: 12-22-2023 PT panel - Platelet poor plasma by Coagulation assay PROTHROMBIN TIME/PT Lab Routine Preoperative examination Parastomal hernia without obstruction or gangrene Expected: 12/21/2022, Expires: 12/22/2023 [facility] Work Phone: Comment on above: Expected: 12/21/2022, Expires: Start: 12-21-2022 End: 12-22-2023 TYPE AND SCREEN,30 DAY TYPE AND SCREEN,30 DAY Blood Bank Routine Preoperative examination Parastomal hernia without obstruction or gangrene Expected: 12/21/2022 (Approximate), Expires: 12/22/2023 [facility] Work Phone: Comment on above: Expected: 12/21/2022 (Approximate), Expi res: 12/22/2023 Start: 10-23-2022 DEPRESSION ASSESSMENT DEPRESSION ASSESSMENT [facility] Start: 07-05-2022 End: 07-05-2022 Patient encounter procedure 07/05/2022 Office Visit Gastroenter[place] [address] [facility] - [place] Start: 06-23-2022 FLU (#1) FLU (#1) [facility] Start: 06-23-2022 Influenza vaccination INFLUENZA (#1) [facility] Start: 05-13-2022 COVID-19 VACCINE (5 - Booster for Moderna series) COVID-19 VACCINE (5 - Booster for Moderna series) [facility] Start: 05-13-2022 COVID-19 VACCINE (5 - Moderna series) COVID-19 VACCINE (5 - Moderna series) [facility] Start: 03-24-2022 End: 03-24-2023 CBC panel - Blood by Automated count CBC Lab Routine Screening for iron deficiency anemia Expected: 03/24/2022, Expires: 03/24/2023 [facility] Work Phone: Comment on above: Expected: 03/24/2022, Expires: Start: 03-24-2022 End: 03-24-2023 FERRITIN BLD FERRITIN BLD Lab Routine Screening for iron deficiency anemia Expected: 03/24/2022, Expires: 03/24/2023 [facility] Work Phone: Comment on above: Expected: 03/24/2022, Expires: 3 Start: 03-24-2022 End: 05-24-2022 HEPATIC FUNCTION PNL HEPATIC FUNCTION PNL Lab Routine Spina bifida of lumbosacral region with hydrocephalus (HCC) Expected: 03/24/2022, Expires: 05/24/2022 [facility] Work Phone: Comment on above: Expected: 03/24/2022, Expires: 2 Start: 03-24-2022 End: 03-24-2023 LIPID PANEL BASIC LIPID PANEL BASIC Lab Routine Screening for lipoid disorders Expected: 03/24/2022, Expires: 03/24/2023 [facility] Work Phone: Comment on above: Expected: 03/24/2022, Expires: 3 Start: 03-24-2022 End: 03-24-2023 VITAMIN D 25 HYDROXY VITAMIN D 25 HYDROXY Lab Routine Vitamin D deficiency Expected: 03/24/2022, Expires: 03/24/2023 [facility] Work Phone: Comment on above: Expected: 03/24/2022, Expires: 3 Start: 10-23-2021 DEPRESSION ASSESSMENT DEPRESSION ASSESSMENT [facility] Start: 07-02-2020 Urine microalbumin profile [facility] Start: 2015 Anxiety Screening Anxiety Screening [facility] Start: 2015 Depression Screening Depression Screening [facility] Start: 2015 HEPATITIS C SCREENING HEPATITIS C SCREENING [facility] Start: 2015 Hepatitis C screening Hepatitis C Screening [facility] Start: 2015 HIV SCREENING HIV SCREENING [facility] Start: 2015 HIV screening HIV Screening [facility] Start: 2013 MenB (1 of 2 - MenB 2-Dose Series) MenB (1 of 2 - MenB 2-Dose Series) [facility] Start: 2012 HPV Vaccine (1 - Male 3-dose series) HPV Vaccine (1 - Male 3-dose series) [facility] Start: 2011 PEDS TO ADULT TRANSITION ANNUAL ASSESSMENT PEDS TO ADULT TRANSITION ANNUAL ASSESSMENT [facility] Start: 2009 Adult depression screening assessment DEPRESSION SCREENING [facility] Start: 2009 PEDS TO ADULT TRANSITION INITIAL DISCUSSION PEDS TO ADULT TRANSITION INITIAL DISCUSSION [facility] Start: 2008 HPV (1 - Male 2-dose series) HPV (1 - Male 2-dose series) [facility] Start: 2008 HPV VACCINE (1 - Male 2-dose series) HPV VACCINE (1 - Male 2-dose series) [facility] Start: 2007 MENINGOCOCCAL B: Consider based on risk (1 of 2 - Risk Bexsero 2-dose series) MENINGOCOCCAL B: Consider based on risk (1 of 2 - Risk Bexsero 2-dose series) [facility] Start: 2006 HPV VACCINE (1 - Male 2-dose series) HPV VACCINE (1 - Male 2-dose series) [facility] Start: 2004 Tetanus Diphtheria and Pertussis Vaccines (1 - Tdap) Tetanus Diphtheria and Pertussis Vaccines (1 - Tdap) [facility] Start: 1998 MMR (1 of 1 - Standard series) MMR (1 of 1 - Standard series) [facility] Start: 1998 Varicella (1 of 2 - 2-dose childhood series) Varicella (1 of 2 - 2-dose childhood series) [facility] Anion gap in Serum o r Plasma [facility] End: 08-23-2024 Bacteria identified in Urine by Culture URINE CULTURE Microbiology Routine Recurrent UTI Once per month for 12 Occurrences starting 08/25/2023 until 08/23/2024 [facility] Work Phone: Comment on above: Once per month for 12 Occurrences starti ng 08/25/2023 until 08/23/2024 BUN/Creatinine ratio [facility] Calcium [Mass/volume ] in Serum or Plasma [facility] Carbon dioxide, tota l [Moles/volume] in Central venous blood [facility] Continuous pulse oximetry [facility] Creatine kinase [Enzymatic activity/volume] in Serum or Plasma [facility] Creatinine [Mass/volume] in Serum or Plasma [facility] End: 12-22-2023 ECG COMPLETE ECG COMPLETE ECG Routine Preoperative examination Parastomal hernia without obstruction or gangrene 1 Occurrences starting 12/21/2022 until 12/22/2023 [facility] Work Phone: Comment on above: 1 Occurrences starting 12/21/2022 until 12/22/2023 ECG COMPLETE ECG COMPLETE ECG Routine Tachycardia 08/25/2023 10:30 AM EDT [facility] Work Phone: End: 03-29-2023 EMG(NEURO/NI) EMG(NEURO/NI) EMG Routine Ulnar neuropathy of both upper extremities 1 Occurrences starting 03/29/2022 until 03/29/2023 [facility] Work Phone: Comment on above: 1 Occurrences starting 03/29/2022 until 03/29/2023 Erythrocyte mean corpuscular volume determination [facility] Glucose [Mass/volume ] in Serum or Plasma [facility] Hematocrit [Volume Fraction] of Blood [facility] Hemoglobin [Mass/volume] in Blood [facility] INR in Blood by Coagulation assay [facility] Legionella pneumophi la Ag [Presence] in Urine [facility] Leukocytes [#/volume ] in Blood [facility] Magnesium measurement [facility] Mean corpuscular hemoglobin concentration determination [facility] Mean corpuscular hemoglobin determination [facility] Measurement of renal function [facility] Neutrophil count [facility] Neutrophil percent differential count [facility] Patient Education ED Feeding Tub e Replacement [facility] Work Phone: Patient referral [facility] Work Phone: Platelets [#/volume] in Blood [facility] Polysomnography [facility] Potassium measurement [facility] Prq nephrostolithotomy/pyel ostolithotomy 2 cm PERC NEPHROLITHOTOMY LITHOTRIPSY,STONE EXTRACTION,ANTEGRADE URETEROSCOPY,STENT PLACEMENT WHEN PERFORMED INCD IMAGING UP TO 2cm Nephrolithiasis [facility] Red blood cell count [facility] Red cell distributio n width determination [facility] REFER FOR ADMIT INTERVIEW REFER FOR ADMIT INTERVIEW Procedures Routine Preoperative examination Parastomal hernia without obstruction or gangrene Ordered: 12/21/2022 [facility] Work Phone: Comment on above: Ordered: 12/21/2022 Serum chloride measurement [facility] Sodium measurement [facility] UA DIP, URINE (POC) UA DIP, URIN E (POC) Lab Routine Screening for genitourinary condition 1 Occurrences starting 01/24/2025 [facility] Work Phone: Comment on above: 1 Occurrences starting 01/24/2025 UA DIP, URINE (POC) UA DIP, URIN E (POC) Lab Routine Screening for genitourinary condition 1 Occurrences starting 07/03/2025 [facility] Work Phone: Comment on above: 1 Occurrences starting 07/03/2025 Urea nitrogen [Mass/volume] in Serum or Plasma [facility] URINALYSIS, REFLEX MICROSCOPIC URINALYSIS, REFLEX MICROSCOPIC Lab Routine Screening for genitourinary condition Ordered: 03/25/2022 [facility] Work Phone: Comment on above: Ordered: 03/25/2022 URINALYSIS, REFLEX MICROSCOPIC URINALYSIS, REFLEX MICROSCOPIC Lab Routine Screening for genitourinary condition Ordered: 04/17/2023 [facility] Work Phone: Comment on above: Ordered: 04/17/2023 URINALYSIS, REFLEX MICROSCOPIC URINALYSIS, REFLEX MICROSCOPIC Lab Routine Screening for genitourinary condition Ordered: 08/25/2023 [facility] Work Phone: Comment on above: Ordered: 08/25/2023 URINALYSIS, REFLEX MICROSCOPIC URINALYSIS, REFLEX MICROSCOPIC Lab Routine Screening for genitourinary condition Ordered: 01/26/2024 [facility] Work Phone: Comment on above: Ordered: 01/26/2024 Urine culture [facility] End: 02-02-2025 US Kidney - bilateral and Urinary bladder US KIDNEY/BLADDER Radiology Routine Neurogenic bladder 1 Occurrences starting 01/04/2024 until 02/02/2025 [facility] Work Phone: Comment on above: 1 Occurrences starting 01/04/2024 until 02/02/2025 [facility] c [facility] c [facility] N [facility] N [facility] Immunizations Immunization Date Immunization Notes Care Provider David campos 03-18-2022 COVID-19 vaccine, fu ll dose (MODERNA); Translations: [Moderna COVID-19 Vaccine] Us 2 [facility] Work Phone: 08-10-2021 influenza, injectabl e, quadrivalent, contains preservative; Translations: [Fluarix PF Quadrivalent ] NIKITA GRAMAJO DO [facility] 08-10-2021 COVID-19 vaccine, fu ll dose (MODERNA); Translations: [Moderna COVID-19 Vaccine] Us 2 [facility] Work Phone: 08-10-2021 influenza, injectabl e, quadrivalent, preservative free Us 2 [facility] Work Phone: 08-10-2021 influenza virus vacc ine, unspecified formulation Nikita Gauthier MD Work Phone: [facility] 12-30-2020 COVID-19 vaccine, fu ll dose (MODERNA) Us 2 [facility] Work Phone: Comment on above: Result Comment: 2021: [id number] 12-03-2020 COVID-19 vaccine, fu ll dose (MODERNA) Us 2 [facility] Work Phone: 09-19-2018 influenza, injectabl e, quadrivalent, preservative free [facility] 09-19-2018 influenza, seasonal, injectable Dr. Omi Adams Work Phone: [facility] 09-19-2018 influenza, seasonal, injectable, preservative free 2 [facility] Work Phone: 07-19-2016 meningococcal oligosaccharide (groups A, C, Y and W-135) diphtheria toxoid conjugate vaccine (MCV4O) Us 2 [facility] Work Phone: 07-19-2016 meningococcal polysaccharide (groups A, C, Y and W-135) diphtheria toxoid conjugate vaccine (MCV4P) NIKITA GRAMAJO DO [facility] 07-02-2010 tetanus toxoid, redu zacarias diphtheria toxoid, and acellular pertussis vaccine, adsorbed Us 2 [facility] Work Phone: 08-26-2009 novel influenza-H1N1 -09, preservative-free, injectable Us 2 [facility] Work Phone: 06-07-2003 diphtheria, tetanus toxoids and acellular pertussis vaccine, unspecified formulation Us 2 [facility] Work Phone: 06-07-2003 measles, mumps and rubella virus vaccine Us 2 [facility] Work Phone: 06-07-2003 measles/mumps/rubell a virus vaccine NIKITA GRAMAJO DO [facility] 06-07-2003 trivalent poliovirus vaccine, live, oral Us 2 [facility] Work Phone: 05-18-1999 diphtheria, tetanus toxoids and acellular pertussis vaccine, unspecified formulation Us 2 [facility] Work Phone: 05-18-1999 haemophilus influenz ae type b vaccine, PRP-T conjugate Us 2 [facility] Work Phone: 05-18-1999 trivalent poliovirus vaccine, live, oral Us 2 [facility] Work Phone: 10-08-1998 diphtheria, tetanus toxoids and acellular pertussis vaccine, unspecified formulation Us 2 [facility] Work Phone: 10-08-1998 measles, mumps and rubella virus vaccine Us 2 [facility] Work Phone: 10-08-1998 measles/mumps/rubell a virus vaccine NIKITA GRAMAJO DO [facility] 03-03-1998 diphtheria, tetanus toxoids and acellular pertussis vaccine, unspecified formulation Us 2 [facility] Work Phone: 03-03-1998 haemophilus influenz ae type b vaccine, PRP-T conjugate Us 2 [facility] Work Phone: 03-03-1998 hepatitis B pediatri c vaccine NIKITA GRAMAJO DO [facility] 03-03-1998 hepatitis B vaccine, pediatric or pediatric/adolescent dosage Us 2 [facility] Work Phone: 1997 diphtheria, tetanus toxoids and acellular pertussis vaccine, unspecified formulation Us 2 [facility] Work Phone: 1997 trivalent poliovirus vaccine, live, oral Us 2 [facility] Work Phone: 1997 diphtheria, tetanus toxoids and acellular pertussis vaccine, unspecified formulation Us 2 [facility] Work Phone: 1997 haemophilus influenz ae type b vaccine, PRP-T conjugate Us 2 [facility] Work Phone: 1997 trivalent poliovirus vaccine, live, oral Us 2 [facility] Work Phone: 1997 hepatitis B pediatri c vaccine NIKITA GRAMAJO DO [facility] 1997 hepatitis B vaccine, pediatric or pediatric/adolescent dosage Us 2 [facility] Work Phone: 1997 hepatitis B pediatri c vaccine NIKITA GRAMAJO DO [facility] 1997 hepatitis B vaccine, pediatric or pediatric/adolescent dosage Us 2 [facility] Work Phone: NEGATED: Highlighted row has not occurred!01-09-2020 influenza, seasonal, injectable Us 2 [facility] Comment on above: Deferred: OTHER - In process of discharge Payers Date Payer Category Payer Private Health Insurance [id number] 2025 Self-pay [id number] 2023 Unknown [id number] 2023 Private Health Insurance [id number] 2023 Private Health Insurance [id number] 2022 Unknown [id number] 2022 [place] [id number] 2022-Present [phone] [address] [place] [address] Medicaid [id number] 2019 Unknown [facility] [place] PPO [place] [employer] [id number] 2019-Present [phone] [address] [place] [address] PPO [id number] 2019 Unknown [id number] 2018 Unknown [id number] 2016 Medicaid [id number] 2011 Medicaid [id number] 1997 Unknown [id number] 2.16.840.1.610791.3.579.2.4 79 1997 Unknown [id number] 2.16.840.1.707663.3.579.2.4 79 1997 Unknown [id number] 2.16.840.1.450550.3.579.2.4 79 1997 Unknown [id number] 2.16.840.1.315296.3.579.2.4 79 1997 Unknown [id number] 2.16.840.1.272501.3.579.2.4 79 1997 Unknown [id number] 2.16.840.1.606720.3.579.2.6 27 1997 Unknown [id number] 2.16.840.1.142673.3.579.2.6 27 1997 Unknown [id number] 2.16.840.1.652034.3.579.2.6 27 Unknown [id number] Unknown [id number] 2.16.840.1.639847.3.579.2.4 62 Unknown [id number] 2.16.840.1.326549.3.579.2.4 62 Unknown [id number] 2.16.840.1.711204.3.579.2.4 62 Unknown [id number] 2.16.840.1.962489.3.579.2.4 62 Unknown [id number] 2.16.840.1.406213.3.579.2.4 62 Unknown [id number] 2.16.840.1.952725.3.579.2.4 62 Unknown [id number] 2.16.840.1.571499.3.579.2.4 62 Unknown [id number] 2.16.840.1.918404.3.579.2.4 62 Social History Date Type Detail Facility Start: 12-18-2019 End: 02-16-2023 Tobacco smoking status HIIS Never smoked tobacco [facility] Start: 12-18-2019 End: 02-16-2023 Tobacco use and exposure Smokeless tobacco non-user [facility] Start: 1995 Sex Assigned At Male C [facility] Start: 03-15-2022 End: 08-01-2022 Exposure to SARS-CoV-2 (event) Not sure [facility] Work Phone: Start: 06-19-2022 End: 06-25-2022 Alcohol intake Current non-drinker of alcohol (finding) [facility] Start: 06-19-2022 End: 07-03-2025 Alcohol intake [facility] Start: 1995 Sex Assigned At Not on file A [facility] Start: 12-01-2022 End: 02-20-2024 Tobacco smoking status NHIS Unknown if ever smoked [facility] Start: 10-25-2018 None [facility] Start: 10-25-2018 With Family [facility] Start: 10-26-2018 Non-smoker [facility] Start: 02-16-2023 End: 07-03-2025 Alcohol intake Lifetime non-drinker (finding) [facility] Start: 03-16-2023 History SDOH Financial 5 [facility] Start: 03-16-2023 History SDOH Food Worry 1 [facility] Start: 03-16-2023 History SDOH Transpo rt Med 2 [facility] Start: 06-05-2023 End: 07-03-2025 Tobacco use panel [facility] Start: 12-26-2018 How hard is it for y ou to pay for the very basics like food, housing, medical care, and heating Not hard at all [facility] (I/We) worried whebibi er (my/our) food would run out before (I/we) got money to buy more. Never true [facility] In the past 12 month s, was there a time when you were not able to pay the mortgage or rent on time? No [facility] Start: 01-02-2020 Gender identity Identifies as male gender (finding) [facility] Start: 01-02-2020 Sexual orientation Heterosexual (mini ralph) [facility] How often to you hav e a drink containing alcohol? Never [facility] Medical Equipment Procedure Code Equipment Code Equipment Original Text Equipment Identifier Dates Stent Expel Twis t-Loc 8fr Metal 22cm Nephroureteral Internal External - [id number] Start: 01-03-2020 Arth Hip Pushloc k 2.9x12.5 [id number])N/A, [id number] FDA Start: 05-16-2019 Stplr Ирина 80mm [id number] Start: 01-29-2019 Clip Liga Med/Lg ([id number])N/A, [id number] FDA Start: 05-16-2019 Mesh Soft Prolen e 50x50 Cm - [id number] Start: 03-14-2023 Tube Lele Secur-L ok 20fr White Silicone Gastrostomy Medication Port - [id number] Start: 03-14-2023 Mesh Vicryl Flat Polyglactin 910 Woven [id number] Surgical Knit Hernia Repair - [id number] Start: 03-14-2023 Mesh Soft Prolen e 50x50 Cm - [id number] Start: 03-14-2023 Mesh Vicryl Flat Polyglactin 910 Woven [id number] Surgical Knit Hernia Repair - [id number] Start: 03-14-2023 Goals Date Patient Goal Desired Activity /State Personal health goal Functional Status Date Assessment Result Facility 06-11-2025 Functional status Bedrest [facility] Work Phone: 06-10-2025 Functional status Tolerates Activity Well [facility] Work Phone: 03-25-2023 Are you deaf, or do you have serious difficulty hearing No 03/25/2023 12:44 PM Alyce Syed RN No [facility] 03-25-2023 Are you blind, or do you have serious difficulty seeing, even when wearing glasses No 03/25/2023 12:44 PM Alyce Syed RN No [facility] 03-25-2023 Do you have serious difficulty walking or climbing stairs Yes 03/25/2023 12:44 PM Alyce Syed, BRUCE Yes [facility] 03-25-2023 Do you have difficul ty dressing or bathing Yes 03/25/2023 12:44 PM Alyce Syed, BRUCE Yes [facility] 03-25-2023 Because of a physica l, mental, or emotional condition, do you have difficulty doing errands alone such as visiting a physician's office or shopping Yes 03/25/2023 12:44 PM Alyce Syed, BRUCE Yes [place] Mental Status Date Assessment Result Facility 06-11-2025 Cognitive function Voice/Name [facility] Work Phone: 02-20-2024 Cognitive function Level Of Cons ciousness Awake;Alert;Appropriate [facility] Work Phone: 03-25-2023 Because of a physica l, mental, or emotional condition, do you have serious difficulty concentrating, remembering, or making decisions No 03/25/2023 12:44 PM EDT Alyce Griffith RN No [facility] Clinical Notes 01-04-2020 to 07-10-2025 Telephone Encounter - Duyen Gauthier RN - 07/07/2025 12:11 PM EDTTelephone Encounter - Duyen Gauthier RN - 07/07/2025 12:11 PM EDTTelephone Encounter - Duyen Gauthier RN - 07/04/2025 1:27 PM EDT Note Date & Type Note Facility 07-10-2025 Note HNO ID: [id number] Author: MAYTE JUAREZ, PT, DPT Service: ? Author Type: Local Superintendent Type: Progress Notes Filed: 07/23/2025 09:57 Note Text: [facility] [address] [address] Dept: [phone] Dept Start of Care Date: 07/10/25 Patient Identified by Name and Date of : Yes [facility] PHYSICAL THERAPY SEATING AND WHEELED MOBILITY EVALUATION Persons Present at Evaluation: patient and family Vendor Present: other: [employer] SUBJECTIVE: Marcos Aguirre is a 29 year old male seen today for wheelchair evaluation. Patient Goals: patient is here to obtain a wheelchair or power mobility device to increase function in the home environment. Current activities in the home and community that Marcos Aguirre feels are mobility limitations and would be improved with the use of a mobility device: mobility within the household and community / maneuvering between rooms ; dressing ; grooming ; bathing ; toileting ; working ; transfers OBJECTIVE MEASURES WITH LEVEL OF FUNCTION: PHYSICAL STATUS: Height: 61in Weight: 105# Communication:able to verbally communicate needs Skin Integrity: intact Cardio-Respiratory: How far does the patient demonstrate that he can walk and/or self propel a manual wheelchair before becoming short of breath? 100ft What ADL's make him short of breath? toileting, bathing, dressing, grooming/hygiene, transfers, home management (laundry/cleaning/cooking), and ambulation/mobility Vascular: Does the patient have edema of the UE/LE's: No The patient does not have edema. If yes, what treatments have been attempted? N/a FUNCTIONAL STATUS: Eating: supervision/set-up Upper body Dressing: independent Lower body Dressing: total assistance/dependent Grooming: total assistance/dependent Toileting: dependent Bathing: dependent Instrumental Activities of Daily Living: Requires assistance for: cooking, shopping, laundry, and cleaning Transfers: Dependent Method: mechanical lift device Ambulation: wheelchair dependent How far can he walk without stopping before his symptoms interfere? Chair dependent Why is his current assistive device no longer sufficient for mobility in the home? Current device has multiple mechanical failures and is no longer fitting the patient appropriately. Progression of ambulation difficulty over time: non-ambulatory Time spent in wheelchair: 12 hours per day Transportation: [employer] accessible van ; public bus LIVING SITUATION: Entrance/Exit used: ramped and ground level CURRENT WHEELCHAIR EQUIPMENT: Present wheelchair: Power Assist Wheel chair with emotion wheels Age of current equipment: 5 years Problems with Current Seating/Wheelchair: is old (5+ years) and in need of replacement and is in disrepair and requires significant repairs and/or modifications to continue to safety use SEATING EVALUATION (edge of mat / in current wheelchair): Sitting posture: Kyphotic, Scoliotic apex left, and Right hip higher Sitting Balance: Poor: requires support to maintain balance Pelvic Mobility Anterior/Posterior: neutral not achieved Rotation: neutral not achieved Obliquity: neutral not achieved LOWER EXTREMITY FUNCTION ROM: Hip flexion N/A R Major limitation L Knee flexion N/A R Major limitation L Ankle: Right: N/A Left: Moderately plantar flexed Muscle Tone: rigidity Muscle Strength Limitations: RIGHT LEFT Hip flexion 0/5 0/5 Hip extension 0/5 0/5 Knee flexion 0/5 0/5 Knee extension 0/5 0/5 Ankle dorsiflexion 0/5 0/5 Ankle plantarflexion 0/5 0/5 LE Sensation: absent UPPER EXTREMITY FUNCTION: ROM Limitations: WFL Muscle Tone: normal Muscle Strength Limitations: RIGHT LEFT Shoulder flexion 4-/5 4-/5 Shoulder abduction 4/5 4/5 Elbow flexion 4+/5 4+/5 Elbow extension 4+/5 4+/5 Wrist flexion 4+/5 4+/5 Wrist extension 4/5 4/5 Cannon Pinion Adjuster strength 4/5 4/5 Hand Dexterity: WFL UE sensation: WFL Head Control and Position Control: good Position: lateral flexion to left side Head Control Against [place]: able to maintain line of sight against gravity PRESSURE MANAGEMENT ISSUES RISK FACTORS PRESENT: 1. Sensory perception: completely limited 2. Moisture: rarely moist and external catheter and colostomy 3. Activity: chairfast 4. Mobility: very limited 5. Nutrition: probably adequate 6. Friction and Shear: potential problem RISK OF SKIN BREAKDOWN: Moderate Risk Current method of Pressure Relief: requires assistance with position changes / non-functional TREATMENT: Evaluation Wheelchair Management (99826): Discussion of each recommended seating function / equipment and risks and benefits of each described component as follows: Power assist wheelchair with appropriate cushion for pressure relief, lateral supports to improve postural alignment, headrest for support Skilled Intervention: Professiona (more content not included)... [facility] 07-07-2025 Telephone encounter Note Called and spoke with patient's mother. Advised that Macrobid was sent to pharmacy to begin 7 days prior to surgery. Reviewed culture results. Mother would like antibiotic sent to [facility] as the current pharmacy is mail order. Will have team adjust this. Duyen Gauthier RN July 07, 2025 [facility] 07-07-2025 Miscellaneous Notes Called and spoke with patient's mother. Advised that Macrobid was sent to pharmacy to begin 7 days prior to surgery. Reviewed culture results. Mother would like antibiotic sent to [facility] as the current pharmacy is mail order. Will have team adjust this. Duyen Gauthier RN July 07, 2025 documented in this encounter [facility] 07-04-2025 Telephone encounter Note Called [facility] lab to discuss UCX. Requested susceptibilities. Duyen Gauthier RN July 04, 2025 [facility] 07-04-2025 Miscellaneous Notes Called [facility] lab to discuss UCX. Requested susceptibilities. Duyen Gauthier RN July 04, 2025 documented in this encounter [facility] 07-03-2025 Instructions Suki Guzman APRN.VIDEOTAPE EDITOR - 07/03/2025 10:00 AM EDT Dietary Restrictions: - No solid food after midnight the day before surgery. - You may have 12 ounces of clear liquids (water, clear juices such as apple juice or gatorade, carbonated beverages, clear tea, black coffee, jello) until 2 hours before scheduled arrival at facility. NO MILK PRODUCTS. - Do not drink any alcohol after midnight the night before your surgery. Parking: Tower Excavator Operator parking is available at the [facility], or [facility] entrance. This is the main entrance with the [employer]. [address] [place], [place] [id number] Garage parking- or parking garage is the closest to surgery check in desk. [address], [place] [address] Arrival Time: Your arrival time will be provided to you the day before surgery. If you do not hear from surgery scheduling by 3:00 pm the day prior to your surgery, you can contact Urology Surgery at [phone]. We would like to reminded you that surgery time provided is tentative based on potential changes with transplant surgeries. Please check in at desk J1-9 in the [facility] Medications: Unless instructed differently below, stay on all of your medications until your surgery. Pre Surgery Med Instructions Medication instructions CARTIA XT 120 mg 24 hr capsule If you normally take this medication in the morning, it is ok to take the morning of surgery with a sip of water. Nut.Tx.Impaired Dige Fxn-Fiber (VITAL 1.0 SHINE) 0.04 gram- 1 kcal/mL liqd Stop after midnight the night before surgery If you start any new medications after [...] or NSAIDS as needed. Important Reminders: - If you are prescribed inhalers for breathing, continue using them. - If you wear contact prescription lenses, please remove them - Candy, mints, and tobacco products are NOT permitted the morning of surgery. - Hearing aids, dentures and glasses may be worn the morning of surgery. - NO jewelry, body piercings, makeup, hairpins or contacts are to be worn the day of surgery. Online surgical guide [email or web address] [email or web address] documented in this encounter [facility] 07-03-2025 History of Presen t illness Narrative [facility] PRE-OP NOTE Marcos Aguirre is a 29 year old male. Pre-op Date: July 03, 2025 Date of Procedure: 07/17/2025 Procedure/Surgery: Panel 1 Surgeon Role Service Xochitl Hoffman MD Primary Urology Procedure: PERC NEPHROLITHOTOMY LITHOTRIPSY,STONE EXTRACTION,ANTEGRADE URETEROSCOPY,STENT PLACEMENT WHEN PERFORMED INCD IMAGING UP TO 2cm Laterality Anesthesia Op Region Left General Kidney Diagnosis: nephrolithiasis There were no vitals taken for this visit. Pain Assessment: Are you currently having pain? No 0 on a scale of 0 to 10 Surgical Guide Book Status: Patient given book today. Allergies Reviewed: Yes Medications Reviewed: Yes Is patient currently on oral steroids?: No Has the patient had a UTI in the past month?: Yes. Antibiotic taken: Cipro 500 mg Does the patient have any artificial joints (last 2 years), metal parts, pacemakers or cardiac/ureteral stents in place?: Yes, titanium rods in back, mesh in abdomen Does the patient have diabetes?: No Is the patient routinely taking anticoagulants?: No. Urine Dip Complete?: to be completed- sample taken from neph tube at this visit URINE CULTURE COMPLETE?: ^ see above Ostomy/Stoma Nurse appointment made/completed: N/A [facility]/Medical Clearance: Cleared per [facility] - Yes [facility]: Cleared per [facility] - Yes All testing on cureform has been scheduled: Yes Consent Signed: Consent not in Epic. DOS Orders Placed and Signed: Yes.--> antibiotics NOT ordered due to pending urine culture Pre-op H&P Done by [facility]: To be done by [facility]. PATIENT INSTRUCTIONS FOR SURGERY 1.) DO NOT HAVE ANYTHING TO EAT OR DRINK AFTER MIDNIGHT THE DAY BEFORE SURGERY except for certain morning medications as instructed by the doctor. Candy, mints, gum, and smoking are NOT permitted. If the surgery is scheduled for the afternoon, you may have water during the morning of surgery if permitted by your surgeon. 2.) Medications to be taken on the morning of surgery with a few sips of water: per [facility] 3.) Please bring all your prescribed inhalers (if you have any you normally take) to the hospital. 4.) Arrival time: Call for arrival. 5.) Prep given: No 6.) Lovenox instructions given: N/A 7.) Patient reminded that surgery time provided day before surgery is tentative based on potential changes with transplants. Recommendations: Optimization pending: LABS. Suki Guzman APRN.CNP documented in this encounter [facility] 07-03-2025 History and physical note Images from the original note were not included. [facility] HISTORY AND PHYSICAL EXAMINATION SERVICE DATE: 07/03/2025 SERVICE TIME: 8:25 AM PRIMARY CARE PHYSICIAN: Nikita Gramajo IV, DO Assessment Patient has the following medical conditions which may affect carin-operative course: Spina bifida (HCC) - Wheelchair dependent - On tubefeed NIGEL (obstructive sleep apnea) - Compliant on Trilogy ventilator S/P ventriculoperitoneal shunt - Placed at in 1996 and replaced 1 week later Neurogenic bladder - S/p mitrafanoff with bladder neck sling/mace in [address] (HCC) - Colostomy and g-tube placed 01/29/19. - Hx of multiple ex-laps, with transverse colostomy and large ventral hernia, now S/P open abdominal wall reconstruction with takedown and re-siting of colostomy on 02/2023 Kidney stone - Surgery scheduled for 07/17/25 Hx of Tachycardia - Managed on Cartia. - Last ECG 08/25/23 NSR 82bpm Difficult intravenous access - Reports he has required US guidance in the past ANESTHESIA FINDINGS: Intubation History: No history of difficult intubation. No abnormal airway history Significant Anesthesia Considerations: reports US guidance for PIV in the past potential difficult IV/vein access Airway History: No history of difficult airway No abnormal airway history Pertinent negatives noted: no history of head/neck trauma that distorted airway Perez Activity Status Index: METS: DASI Score: 0 (Hx of spina bifida, paraplegia BLE, wheelchair dependent) Patient is totally dependent. Clinical Frailty Scale: 7. Severely frail STOP-Bang Score: STOP-Bang Score: (+NIGEL with BiPAP) [id number] Score: Age: <65 Sex: male CHF history: No Hypertension history: No Stroke/TIA/thromboembolism history: No Vascular disease history: No Diabetes history: No [id number] Score: 0 I - PHYSICAL EVALUATION AIRWAY Patient intubated: No. Tracheostomy tube not present Mallampati: I. TM distance: >3 FB. Neck ROM: full ROM without neurological symptoms. Mouth openin FB. Short neck: no. Thick neck: no Upper lip bite test: unable to perform. DENTAL Dental findings: teeth intact. II - ANESTHESIA PLAN Informed Consent Prepared for Surgery: optimally prepared for surgery, pending [see comment]. T&S, CBC, CMP, PT, APTT, UA/ culture ordered by surgical service. CONSULTS: Patient does not require consults for optimization at this time Planned Anesthetic: anesthesia choice The Following Tests/Procedures Have Been Initiated: T&S, CBC, CMP, PT, APTT, UA/ culture ordered by surgical service. REASON FOR VISIT: Marcos Aguirre is a 29 year old male who is scheduled for Procedure(s): PERC NEPHROLITHOTOMY LITHOTRIPSY,STONE EXTRACTION,ANTEGRADE URETEROSCOPY,STENT PLACEMENT WHEN PERFORMED INCD IMAGING UP TO 2cm (Left) at the request of Dr. Xochitl Hoffman for consultation. My final recommendation will be communicated back to the requesting physician by way of shared medical record or letter. Subjective The patient has the following: COVID-19 Immunization Status This patient has no relevant Health Maintenance data. CHIEF COMPLAINT: pre op exam HPI: Marcos Aguirre is a 29 year old male presenting to [facility] today for pre op exam. Patient has a hx of Nephrolithiasis. Denies any fever, chills, chest pain, shortness of breath, dizziness, abdominal pain, or N/V/D. The above surgery was recommended; patient has elected to proceed. Patient is scheduled for procedure on 07/17/2025 at OR. REVIEW OF SYSTEMS: General: No weight loss, malaise or fevers. Neurological: Hx of spina bifida with hydrocephalus s/p BRIM SHAPER shunt at Positive for: paraplegia. Negative for: seizures, TIA and strokes. Respiratory: Positive for: obstructive sleep apnea and CPAP/BiPAP compliant (Trilogy ventilator). Negative for: asthma, COPD, current cough, dyspnea, pneumonia within 6 weeks, tobacco use and URI < 2 weeks. Cardiovascular: Hx of tachycardia- takes cartia. No history of HTN requiring medication, no history of angina, CHF, OK, cardiac surgery or stents. Denies rest pain, gangrene or revascularization/amputation for PVD. No history of cardiovascular symptoms or problems. Negative for: angina, anticoagulation therapy, arrhythmia, CAD, chest pain, CHF, DVT/PE, hyperlipidemia, hypertension, PTCA and open heart surgery. GI: No history of GI symptoms or problems. No history of esophageal varices, recent ascites, or ETOH greater than 2 drinks per day. : See HPI. Nephrostomy tube S/p metrofanodff Positive for: nephrolithiasis. Negative for: hematuria. Endocrine: No history of diabetes. Has [...] history of psychiatric symptoms or problems. Musculoskeletal: Negative for joint pain or swelling, back pain or muscle pain. Skin: Negative for lesions, rash and itching. Implanted Devices: No implanted devices. The patient has the following comorbidities: Paraplegia - BLE Continue current outpatient treatment plan and current medications for these conditions, except where otherwise noted. Spina bifida and NIGEL PAST MEDICAL HISTORY Diagnosis Date Sleep apnea Spina bifida (HCC) PAST SURGICAL HISTORY Procedure Laterality Date MIDLINE INSERTION/CONSULT 01/06/2020 PAST SURGICAL HISTORY OF transverse colostomy PICC LINE INSERT/CONSULT 01/09/2020 FAMILY HISTORY Problem Relation Age of Onset Malig Hyperthermia No Family History Anesthesia Problems No Family History SOCIAL HISTORY[1] Prior to Admission medications as of 07/03/25 1028 Medication Sig Last Dose Taking Nut.Tx.Impaired Dige Fxn-Fiber (VITAL 1.0 SHINE) 0.04 gram- 1 kcal/mL liqd Infuse 5 cartons Vital 1.0 or equivalent peptide based formula at 85 ml/hr for 14 hours via Inifinity pump. Flush tube wit 60 ml before starting tube feed and 60 ml after tube feeding completed Yes CARTIA XT 120 mg 24 hr capsule Take 1 capsule by mouth every afternoon. Yes docusate sodium (COLACE) 100 mg capsule Take 1 capsule by mouth two times a day. acetaminophen (TYLENOL) 160 mg/5 mL liquid Add 31.3 mL by G-TUBE route every 6 hours as needed for pain. Do not exceed 5 doses in 24 hours. LELE-SAHNI GASTROSTOMY TUBE Change 12F-4.0mm gastrostomy tube button every 3 months. Dispense 2 so patent can have a backup at home for emergency use. MEDICAL SUPPLY Lubrication jelly [id number] (1 box every 3 months) Bed pads [id number] MEDICAL SUPPLY Feed bags INF 1200-E (30 per month) Feed ext tube 2-0661-BARUTO (4 per month) G-tube button 20F 4.0cm (2 per year) 2x2 split sponges 16-4226 (1 box per month) 2 paper tape 1530-2 (1 box every 6 months) 4x4 drain sponges 7088 (1 box per 12 months) MEDICAL SUPPLY Overnight gravity urine bags (4 per month) 14F male straight Albert latex free ([id number]) 1 box per month Prevail diapers - size medium (PFO12/2 1 per day - 30 per month MEDICAL SUPPLY 2 skin barrier rings [id number] (1 box every 2 months) Adapt adhesive remover wipes 7760 (1 box every 2 months) [place] colostomy bag 8901(1 box per month) Hy-tape 1/2x5 yards 105LF (1 roll every 6 months) No medication comments found. ALLERGIES Allergen Reactions Bacitracin Other: See Comments little puss pimples Bactrim [Sulfametho* Rash Latex Other: See Comments Latex Precaution Levaquin [Levofloxa* Rash Objective PHYSICAL EXAM: General: alert and oriented and healthy appearance. Pertinent negatives noted - not distressed. Skin: normal color, no rash or lesions. HEENT: EOM intact. Pertinent negatives noted - no carotid bruit. Cardiovascular: regular rate and rhythm, normal S1 and S2, no rub, murmurs, or gallop. Respiratory: normal breath sounds, no wheezes or crackles. No chest wall deformity or tenderness. Abdomen: bowel sounds present. Extremities: Pertinent negatives noted - no deformity and no edema. Neurological: Positive for abnormal gait, speech abnormality and limb weakness. Limb weakness located left LE and right LE. Hx of spina bifida Paraplegia, wheelchair dependent Has no feeling from the chest down. PAIN ASSESSMENT: VITALS: BP 130/91 Pulse 89 Temp (Src) 97 (Temporal) Resp 18 Ht 5' 1 (1.55m) Wt 105 lb (47.6kg) SpO2 98% BMI 19.85 kg/(m^2). Diagnostic tests reviewed for today's visit: Lab Value Units Date High Low HB 16.1 g/dL 07/03/2025 17.0 13.0 HCT 48.9 % 07/03/2025 51.0 39.0 WBC 7.08 k/uL 07/03/2025 11.00 3.70 PLT 292 k/uL 07/03/2025 400 150 NA 139 mmol/L 06/14/2025 144 136 K 3.8 mmol/L 06/14/2025 5.1 3.7 GLUC 260 mg/dL 06/14/2025 99 74 BUN 8 mg/dL 06/14/2025 24 9 CREAT 0.41 mg/dL 06/14/2025 1.22 0.73 PTSEC 10.8 sec 07/03/2025 13.0 9.7 INR 1.0 no uni* 07/03/2025 1.3 0.9 APTT 30.8 sec 07/03/2025 32.4 23.0 ALT 29 U/L 01/24/2025 54 10 AST 22 U/L 01/24/2025 40 14 TBILI 0.3 mg/dL 01/24/2025 1.3 0.2 TSH No results within date range. Lab Value Units Date High Low HCGQT No results within date range. UHCG No results within date range. HCG, BODY* No results within date range. Lab Value Units Date High Low ABORHD No results within date range. ABSCREEN No results within date range. No results found for: HBA1C No results found for this or any previous visit (from the past 8760 hours). No results found for this or any previous visit (from the past 81455 hours). Instructions Given to Patient: Instructions located in the after visit summary. Patient given verbal and written preop instructions and voices comprehension and compliance. SIGNATURE: Betsy Seo APRN.CNP PATIENT NAME: Marcos Aguirre DATE: July 03, 2025 TIME: 8:25 AM PAGER/CONTACT #: [1] Social History Tobacco Use Smoking status: Never Smokeless tobacco: Never Vaping Use Vaping status: Never Used Substance Use Topics Alcohol use: Never Drug use: Never [facility] 07-03-2025 History and physical note Images from the original note were not included. [facility] HISTORY AND PHYSICAL EXAMINATION SERVICE DATE: 07/03/2025 SERVICE TIME: 8:25 AM PRIMARY CARE PHYSICIAN: Nikita Gramajo IV, DO Assessment Patient has the following medical conditions which may affect carin-operative course: Spina bifida (HCC) - Wheelchair dependent - On tubefeed NIGEL (obstructive sleep apnea) - Compliant on Trilogy ventilator S/P ventriculoperitoneal shunt - Placed at in 1996 and replaced 1 week later Neurogenic bladder - S/p mitrafanoff with bladder neck sling/mace in [address] (HCC) - Colostomy and g-tube placed 01/29/19. - Hx of multiple ex-laps, with transverse colostomy and large ventral hernia, now S/P open abdominal wall reconstruction with takedown and re-siting of colostomy on 02/2023 Kidney stone - Surgery scheduled for 07/17/25 Hx of Tachycardia - Managed on Cartia. - Last ECG 08/25/23 NSR 82bpm Difficult intravenous access - Reports he has required US guidance in the past ANESTHESIA FINDINGS: Intubation History: No history of difficult intubation. No abnormal airway history Significant Anesthesia Considerations: reports US guidance for PIV in the past potential difficult IV/vein access Airway History: No history of difficult airway No abnormal airway history Pertinent negatives noted: no history of head/neck trauma that distorted airway Perez Activity Status Index: METS: DASI Score: 0 (Hx of spina bifida, paraplegia BLE, wheelchair dependent) Patient is totally dependent. Clinical Frailty Scale: 7. Severely frail STOP-Bang Score: STOP-Bang Score: (+NIGEL with BiPAP) [id number] Score: Age: <65 Sex: male CHF history: No Hypertension history: No Stroke/TIA/thromboembolism history: No Vascular disease history: No Diabetes history: No [id number] Score: 0 I - PHYSICAL EVALUATION AIRWAY Patient intubated: No. Tracheostomy tube not present Mallampati: I. TM distance: >3 FB. Neck ROM: full ROM without neurological symptoms. Mouth openin FB. Short neck: no. Thick neck: no Upper lip bite test: unable to perform. DENTAL Dental findings: teeth intact. II - ANESTHESIA PLAN Informed Consent Prepared for Surgery: optimally prepared for surgery, pending [see comment]. T&S, CBC, CMP, PT, APTT, UA/ culture ordered by surgical service. CONSULTS: Patient does not require consults for optimization at this time Planned Anesthetic: anesthesia choice The Following Tests/Procedures Have Been Initiated: T&S, CBC, CMP, PT, APTT, UA/ culture ordered by surgical service. REASON FOR VISIT: Marcos Aguirre is a 29 year old male who is scheduled for Procedure(s): PERC NEPHROLITHOTOMY LITHOTRIPSY,STONE EXTRACTION,ANTEGRADE URETEROSCOPY,STENT PLACEMENT WHEN PERFORMED INCD IMAGING UP TO 2cm (Left) at the request of Dr. Xochitl Hoffman for consultation. My final recommendation will be communicated back to the requesting physician by way of shared medical record or letter. Subjective The patient has the following: COVID-19 Immunization Status This patient has no relevant Health Maintenance data. CHIEF COMPLAINT: pre op exam HPI: Marcos Aguirre is a 29 year old male presenting to [facility] today for pre op exam. Patient has a hx of Nephrolithiasis. Denies any fever, chills, chest pain, shortness of breath, dizziness, abdominal pain, or N/V/D. The above surgery was recommended; patient has elected to proceed. Patient is scheduled for procedure on 07/17/2025 at OR. REVIEW OF SYSTEMS: General: No weight loss, malaise or fevers. Neurological: Hx of spina bifida with hydrocephalus s/p BRIM SHAPER shunt at Positive for: paraplegia. Negative for: seizures, TIA and strokes. Respiratory: Positive for: obstructive sleep apnea and CPAP/BiPAP compliant (Trilogy ventilator). Negative for: asthma, COPD, current cough, dyspnea, pneumonia within 6 weeks, tobacco use and URI < 2 weeks. Cardiovascular: Hx of tachycardia- takes cartia. No history of HTN requiring medication, no history of angina, CHF, OK, cardiac surgery or stents. Denies rest pain, gangrene or revascularization/amputation for PVD. No history of cardiovascular symptoms or problems. Negative for: angina, anticoagulation therapy, arrhythmia, CAD, chest pain, CHF, DVT/PE, hyperlipidemia, hypertension, PTCA and open heart surgery. GI: No history of GI symptoms or problems. No history of esophageal varices, recent ascites, or ETOH greater than 2 drinks per day. : See HPI. Nephrostomy tube S/p metrofanodff Positive for: nephrolithiasis. Negative for: hematuria. Endocrine: No history of diabetes. Has [...] history of psychiatric symptoms or problems. Musculoskeletal: Negative for joint pain or swelling, back pain or muscle pain. Skin: Negative for lesions, rash and itching. Implanted Devices: No implanted devices. The patient has the following comorbidities: Paraplegia - BLE Continue current outpatient treatment plan and current medications for these conditions, except where otherwise noted. Spina bifida and NIGEL PAST MEDICAL HISTORY Diagnosis Date Sleep apnea Spina bifida (HCC) PAST SURGICAL HISTORY Procedure Laterality Date MIDLINE INSERTION/CONSULT 01/06/2020 PAST SURGICAL HISTORY OF transverse colostomy PICC LINE INSERT/CONSULT 01/09/2020 FAMILY HISTORY Problem Relation Age of Onset Malig Hyperthermia No Family History Anesthesia Problems No Family History SOCIAL HISTORY[1] Prior to Admission medications as of 07/03/25 1028 Medication Sig Last Dose Taking Nut.Tx.Impaired Dige Fxn-Fiber (VITAL 1.0 SHINE) 0.04 gram- 1 kcal/mL liqd Infuse 5 cartons Vital 1.0 or equivalent peptide based formula at 85 ml/hr for 14 hours via Inifinity pump. Flush tube wit 60 ml before starting tube feed and 60 ml after tube feeding completed Yes CARTIA XT 120 mg 24 hr capsule Take 1 capsule by mouth every afternoon. Yes docusate sodium (COLACE) 100 mg capsule Take 1 capsule by mouth two times a day. acetaminophen (TYLENOL) 160 mg/5 mL liquid Add 31.3 mL by G-TUBE route every 6 hours as needed for pain. Do not exceed 5 doses in 24 hours. LELE-SAHNI GASTROSTOMY TUBE Change 12F-4.0mm gastrostomy tube button every 3 months. Dispense 2 so patent can have a backup at home for emergency use. MEDICAL SUPPLY Lubrication jelly 03-9199 (1 box every 3 months) Bed pads [id number] MEDICAL SUPPLY Feed bags INF 1200-E (30 per month) Feed ext tube [id number] (4 per month) G-tube button 20F 4.0cm (2 per year) 2x2 split sponges 48-9285 (1 box per month) 2 paper tape 1530-2 (1 box every 6 months) 4x4 drain sponges 7088 (1 box per 12 months) MEDICAL SUPPLY Overnight gravity urine bags (4 per month) 14F male straight Albert latex free ([id number]) 1 box per month Prevail diapers - size medium (PFO12/2 1 per day - 30 per month MEDICAL SUPPLY 2 skin barrier rings [id number] (1 box every 2 months) Adapt adhesive remover wipes 7760 (1 box every 2 months) [place] colostomy bag 8901(1 box per month) Hy-tape 1/2x5 yards 105LF (1 roll every 6 months) No medication comments found. ALLERGIES Allergen Reactions Bacitracin Other: See Comments little puss pimples Bactrim [Sulfametho* Rash Latex Other: See Comments Latex Precaution Levaquin [Levofloxa* Rash Objective PHYSICAL EXAM: General: alert and oriented and healthy appearance. Pertinent negatives noted - not distressed. Skin: normal color, no rash or lesions. HEENT: EOM intact. Pertinent negatives noted - no carotid bruit. Cardiovascular: regular rate and rhythm, normal S1 and S2, no rub, murmurs, or gallop. Respiratory: normal breath sounds, no wheezes or crackles. No chest wall deformity or tenderness. Abdomen: bowel sounds present. Extremities: Pertinent negatives noted - no deformity and no edema. Neurological: Positive for abnormal gait, speech abnormality and limb weakness. Limb weakness located left LE and right LE. Hx of spina bifida Paraplegia, wheelchair dependent Has no feeling from the chest down. PAIN ASSESSMENT: VITALS: BP 130/91 Pulse 89 Temp (Src) 97 (Temporal) Resp 18 Ht 5' 1 (1.55m) Wt 105 lb (47.6kg) SpO2 98% BMI 19.85 kg/(m^2). Diagnostic tests reviewed for today's visit: Lab Value Units Date High Low HB 16.1 g/dL 07/03/2025 17.0 13.0 HCT 48.9 % 07/03/2025 51.0 39.0 WBC 7.08 k/uL 07/03/2025 11.00 3.70 PLT 292 k/uL 07/03/2025 400 150 NA 139 mmol/L 06/14/2025 144 136 K 3.8 mmol/L 06/14/2025 5.1 3.7 GLUC 260 mg/dL 06/14/2025 99 74 BUN 8 mg/dL 06/14/2025 24 9 CREAT 0.41 mg/dL 06/14/2025 1.22 0.73 PTSEC 10.8 sec 07/03/2025 13.0 9.7 INR 1.0 no uni* 07/03/2025 1.3 0.9 APTT 30.8 sec 07/03/2025 32.4 23.0 ALT 29 U/L 01/24/2025 54 10 AST 22 U/L 01/24/2025 40 14 TBILI 0.3 mg/dL 01/24/2025 1.3 0.2 TSH No results within date range. Lab Value Units Date High Low HCGQT No results within date range. UHCG No results within date range. HCG, BODY* No results within date range. Lab Value Units Date High Low ABORHD No results within date range. ABSCREEN No results within date range. No results found for: HBA1C No results found for this or any previous visit (from the past 8760 hours). No results found for this or any previous visit (from the past 64893 hours). Instructions Given to Patient: Instructions located in the after visit summary. Patient given verbal and written preop instructions and voices comprehension and compliance. SIGNATURE: Betsy Seo APRN.CNP PATIENT NAME: Marcos Aguirre DATE: July 03, 2025 TIME: 8:25 AM PAGER/CONTACT #: [1] Social History Tobacco Use Smoking status: Never Smokeless tobacco: Never Vaping Use Vaping status: Never Used Substance Use Topics Alcohol use: Never Drug use: Never documented in this encounter [facility] 07-02-2025 Instructions Betsy Seo APRN.CNP - 07/02/2025 11:18 AM EDT Images from the original note were not included. [facility] PATIENT PREOPERATIVE INSTRUCTIONS Xochitl Hoffman MD has scheduled you for your procedure at this surgery center: [facility] [place]: --[address] [place], [place] [id number]. - To obtain your arrival time for surgery, call your physician's office the day before your surgery. - If you have received different instructions about finding out your arrival time from your surgeon, please follow those instructions. - If your surgery is scheduled for Monday, call the Monday before. Your surgeon s computer processing scheduler will tell you what time to call the office. - If you have not reached the departmental computer processing scheduler by 5 P.M., call [phone] after 5 P.M. the day before your surgery. Please read below carefully for your personalized instructions. Dietary Restrictions: - No solid food after midnight. - You may have 12 ounces of clear liquids (water, clear juices such as apple juice or gatorade, carbonated beverages, clear tea, black coffee, jello) until 2 hours before scheduled arrival at facility. Medications: Unless instructed differently below, stay on all of your medications until your surgery. If you start any new medications after today's visit, please contact your surgeon. Pre Surgery Med Instructions Medication instructions CARTIA XT 120 mg 24 hr capsule If you normally take this medication in the morning, it is ok to take the morning of surgery with a sip of water. Nut.Tx.Impaired Dige Fxn-Fiber (VITAL 1.0 SHINE) 0.04 gram- 1 kcal/mL liqd Stop after midnight the night before surgery If you take any medications for erectile dysfunction-Cialis (Tadalafil), Levitra, Staxyn (Vardenafil) Viagra (Sildenenafil please do not take these for 48 hours before surgery. If you start any new medications after today's visit, please contact the surgeon's office. If you are currently using a vtol-liw-vykv injectable or oral medication for diabetes or weight loss such as Dulaglutide (Trulicity), Exenatide (Byetta, Bydureon), Liraglutide (Victoza, Saxenda), Semaglutide (Ozempic, Wegovy, Rybelsus), or Tirzepatide (Mounjaro), the medicine should be stopped at least 7 days before surgery. These medicines can cause food to remain in your stomach for a very long time and increase the risks from surgery and anesthesia. Not stopping the medication for a long enough time may result in your surgery being rescheduled. Blood Thinning Medications: - Stop NSAIDS (Ibuprofen, Advil, Aleve, Motrin, Celebrex, Mobic, etc.) 7 days before surgery, as directed by your surgeon. - Stop Aspirin 7 days before surgery, as directed by your surgeon. - Stop ALL herbal and dietary supplements 7 days before surgery. - You may take Tylenol (Acetaminophen) or any of your pain medications that do not contain aspirin or NSAIDS as needed. Important Reminders: - If you use CPAP/BIPAP, bring the machine with you to the surgery center. If you are on dialysis, please check with your dialysis center or director of photography to see if any adjustments need to be made to your schedule for the week of your surgery - Candy, mints, and tobacco products are [...] money at home or with family members. - Please bring high-quality footwear, such as sneakers, to the hospital for ambulating post-surgery. For Outpatient Procedures: - YOU MUST HAVE A RESPONSIBLE ACCESSIBILITY LIFT TECHNICIAN TAKE YOU HOME. A SLAT TWISTER OR HAIR ASSISTANT CANNOT BE MADE A RESPONSIBLE ACCESSIBILITY LIFT TECHNICIAN. - We recommend that a responsible person stays with you overnight to take care of you. - You cannot stay in a hotel alone after outpatient surgery. You will not be permitted to have your surgery, if you do not have someone to take care of you. Arrival Time for Surgery: - The Surgery Center or hospital where you are having surgery will call the afternoon before surgery (or Monday for Monday surgery) with a scheduled arrival time. - If you have not heard by 4 pm, please contact the surgery center above. Please be aware that emergency situations arise, which may delay or change your surgical time. If this happens, we will notify you as soon as possible and regret any inconvenience. If you already have an Advance Directive, please fax a copy to [phone] or email to for it to be added to your chart. If you do not have an Advance Directive, you can find the appropriate form and more information at [email or web address]. We recommend that you complete the Advance Directive form found on the website and bring it with you the day of your surgery. It can be witnessed and scanned into your chart that day. Betsy Seo APRN.KRISTI documented in this encounter [facility] 06-17-2025 Telephone encounter Note SERVICE DATE: June 17, 2025 SERVICE TIME: 1330 CONSULTING SERVICE: Interventional Radiology IMPRESSION/RECOMMENDATIONS Marcos's mother was contacted today for follow up s/p placement of Nephrostomy/Nephroureteral catheter(s). - Nephrostomy/Nephroureteral tube(s) to gravity drainage with reported good output. Color clear/mabel. - Discussed signs and symptoms of infection. - Reviewed how to manage common tube related problems and emergency situations. - Emergency telephone contact information reviewed. - Reviewed dressing changes and tube flushing. - Tube care supplies adequate - Routine tube change to be scheduled: NEPH TUBE CARE INSTRUCTIONS: 1) Leave drain to gravity at all times. 2) Gently cleanse area around drain insertion site with warm soap and water, rinse, pat dry and apply clean dry dressing every other day and PRN wet or soiled. 3) If catheter stops draining urine and/or patient develops, fever greater than 100.4 F, flank pain, saturated dressings, check catheter for kinks, and remove bag at luer lock connection to gently flush drain with 5 ml NS. 4) If questions or concerns were to arise please call interventional radiology nurse line at M-F 7am - 3:30 am. After hours please call or and ask the retort press operator to page the interventional resident care spec long chain beamer. 5) To change or schedule an appointment with interventional radiology please call scheduling at . Instructions for My Care at Home or Healthcare Facility Additional Health Information I Need to Know After I Leave theHospital:Symptoms of an Infection to Watch for Include: Fever Swelling Increase in Redness Pus Call your doctor if you: See signs of infection, such as redness, drainage, foul odor, or swelling at the tube site. Have a temperature higher than 100.4 F or 38 C. Develop shaking chills. Do not have relief from pain or the flow is not restored after flushing. See bright red blood in your urine (some pink-tinged urine is to be expected). Notice a foul odor in your urine. Watch for the following: Wet dressing Pain in your back or sides Little or no urine drainage If you have any of the above signs or symptoms, follow these steps: If your tube is already attached to a drainage bag, remove your dressing and check to see if the tube is kinked. If the tube is kinked, straighten the tube until fluid begins to flow. If fluid does not drain after removing the kink in the tube, you may need to gently flush the tube. If your tube is capped attach a drainage bag. Be sure the drainage bag is below the level of the tube site. Wound Care/Surgical Site Care: Keep the dressing that is over the tube site clean and dry. You may have a stitch holding your tube in place. If the stitch breaks, call your doctor. Your tube may have a lock that holds it in place. Do not open the lock. Always keep the bag below the tube site to allow proper drainage by gravity. Your dressing should be changed every other day or sooner if it becomes wet, soiled, falls off, or unless instructed otherwise. It is easier if someone helps you change the dressing. Change the drainage bag monthly.. It is important that the tube remain in the proper position and does not become kinked. You may shower. DO NOT swim or soak in water. Please refer to the YouTube video for nephrostomy tube care instructions and demonstrations. [email or web address] Activity and Exercise: (When I can drive, return to work) Rest when you get home after the procedure. We recommend a responsible adult stay with you overnight after the procedure. Avoid lying or sleeping on your back to prevent kinking of the tube. You may resume your normal activities 24 hours after the procedure. Follow-Up Appointment Reminders: (A list of any scheduled appointments is at the end of this document) For routine concerns please call Interventional Radiology nurse triage line [phone], Monday - Monday 9 a.m. - 4 p.m. After hours please call and ask for Interventional Radiology Fellow long chain beamer, pager [phone]. In the event of acute symptoms report directly to local emergency department and notify the Department of Intervention Radiology after the fact. IR will contact you and schedule for follow up appointment will be set up for routine exchange in 10-12 weeks All questions and concerns were addressed. I spent 20 minutes on the above conversation with the patient. [facility] 06-17-2025 Miscellaneous Notes SERVICE DATE: June 17, 2025 SERVICE TIME: 1330 CONSULTING SERVICE: Interventional Radiology IMPRESSION/RECOMMENDATIONS Marcos's mother was contacted today for follow up s/p placement of Nephrostomy/Nephroureteral catheter(s). - Nephrostomy/Nephroureteral tube(s) to gravity drainage with reported good output. Color clear/mabel. - Discussed signs and symptoms of infection. - Reviewed how to manage common tube related problems and emergency situations. - Emergency telephone contact information reviewed. - Reviewed dressing changes and tube flushing. - Tube care supplies adequate - Routine tube change to be scheduled: NEPH TUBE CARE INSTRUCTIONS: 1) Leave drain to gravity at all times. 2) Gently cleanse area around drain insertion site with warm soap and water, rinse, pat dry and apply clean dry dressing every other day and PRN wet or soiled. 3) If catheter stops draining urine and/or patient develops, fever greater than 100.4 F, flank pain, saturated dressings, check catheter for kinks, and remove bag at luer lock connection to gently flush drain with 5 ml NS. 4) If questions or concerns were to arise please call interventional radiology nurse line at M-F 7am - 3:30 am. After hours please call or and ask the retort press operator to page the interventional resident care spec long chain beamer. 5) To change or schedule an appointment with interventional radiology please call scheduling at . Instructions for My Care at Home or Healthcare Facility Additional Health Information I Need to Know After I Leave theHospital:Symptoms of an Infection to Watch for Include: Fever Swelling Increase in Redness Pus Call your doctor if you: See signs of infection, such as redness, drainage, foul odor, or swelling at the tube site. Have a temperature higher than 100.4 F or 38 C. Develop shaking chills. Do not have relief from pain or the flow is not restored after flushing. See bright red blood in your urine (some pink-tinged urine is to be expected). Notice a foul odor in your urine. Watch for the following: Wet dressing Pain in your back or sides Little or no urine drainage If you have any of the above signs or symptoms, follow these steps: If your tube is already attached to a drainage bag, remove your dressing and check to see if the tube is kinked. If the tube is kinked, straighten the tube until fluid begins to flow. If fluid does not drain after removing the kink in the tube, you may need to gently flush the tube. If your tube is capped attach a drainage bag. Be sure the drainage bag is below the level of the tube site. Wound Care/Surgical Site Care: Keep the dressing that is over the tube site clean and dry. You may have a stitch holding your tube in place. If the stitch breaks, call your doctor. Your tube may have a lock that holds it in place. Do not open the lock. Always keep the bag below the tube site to allow proper drainage by gravity. Your dressing should be changed every other day or sooner if it becomes wet, soiled, falls off, or unless instructed otherwise. It is easier if someone helps you change the dressing. Change the drainage bag monthly.. It is important that the tube remain in the proper position and does not become kinked. You may shower. DO NOT swim or soak in water. Please refer to the YouTube video for nephrostomy tube care instructions and demonstrations. [email or web address] Activity and Exercise: (When I can drive, return to work) Rest when you get home after the procedure. We recommend a responsible adult stay with you overnight after the procedure. Avoid lying or sleeping on your back to prevent kinking of the tube. You may resume your normal activities 24 hours after the procedure. Follow-Up Appointment Reminders: (A list of any scheduled appointments is at the end of this document) For routine concerns please call Interventional Radiology nurse triage line [phone], Monday - Monday 9 a.m. - 4 p.m. After hours please call and ask for Interventional Radiology Fellow long chain beamer, pager [phone]. In the event of acute symptoms report directly to local emergency department and notify the Department of Intervention Radiology after the fact. IR will contact you and schedule for follow up appointment will be set up for routine exchange in 10-12 weeks All questions and concerns were addressed. I spent 20 minutes on the above conversation with the patient. documented in this encounter [facility] 06-16-2025 Telephone encounter Note Called and spoke with patients mother. Informed her that Cipro is the only other oral option. It is similar to Levaquin. Patients mom states that he has taken this in the past without any issues she believes. Advised that we can try this medication instead of the Levaquin. Patients mom agreeable and would like this sent to [facility] in [facility]. Pended medication to be signed. Pat Lin RN June 16, 2025 1:39 PM ----- Message ----- From: Mohsen Flores Sent: 06/16/2025 9:38 AM EDT To: Xochitl Hoffman MD; Urol Stones Pool Subject: Medication Issue Received a call from the pt's mom. Pt was prescribed with medication below following procedure completed on 06/13/25. Pt's mom stated the pt is allergic to the medication and cannot take it. Please advise. Thanks levoFLOXacin (LEVAQUIN) 500 mg tablet 5 tablet 0 06/14/2025 06/19/2025 Sig: Take 1 tablet by mouth once daily for 5 days. Sent to pharmacy as: levoFLOXacin (LEVAQUIN) 500 mg tablet Class: Normal Route: ORAL Order: [id number] [facility] 06-16-2025 Miscellaneous Notes Called and spoke with patients mother. Informed her that Cipro is the only other oral option. It is similar to Levaquin. Patients mom states that he has taken this in the past without any issues she believes. Advised that we can try this medication instead of the Levaquin. Patients mom agreeable and would like this sent to [facility] in [facility]. Pended medication to be signed. Pat Lin RN June 16, 2025 1:39 PM ----- Message ----- [facility] Sent: 06/16/2025 9:38 AM EDT To: Xochitl Hoffman MD; Urol Stones Pool Subject: Medication Issue Received a call from the pt's mom. Pt was prescribed with medication below following procedure completed on 06/13/25. Pt's mom stated the pt is allergic to the medication and cannot take it. Please advise. Thanks levoFLOXacin (LEVAQUIN) 500 mg tablet 5 tablet 0 06/14/2025 06/19/2025 Sig: Take 1 tablet by mouth once daily for 5 days. Sent to pharmacy as: levoFLOXacin (LEVAQUIN) 500 mg tablet Class: Normal Route: ORAL Order: [id number] documented in this encounter [facility] 06-16-2025 Telephone encounter Note I believe this should be PEDS DISHA. He is special needs. [facility] 06-16-2025 Miscellaneous Notes I believe this should be PEDS DISHA. He is special needs. Tube Exchange Appointment Request Form Person filling out this form: Chiara Beltran RN Date: June 13, 2025 Time: 11:50 AM Patient Name: Marcos Aguirre Patient What type of tube is this? Nephrostomy or nephroureteral (tube in the back) Does this tube need exchanged? Yes, How many weeks? 10 to 12 weeks Per physician direction, does this need to be physician specific? No Does this patient require DISHA? Yes Per physician, can this exchange be done in the region? No, Main campus If the patient has an already existing exchange appointment can that one be cancelled? No Any other pertinent information needed for schedulers?pt has spina bifida so positioning is difficult, needs DISHA documented in this encounter [facility] 06-13-2025 Telephone encounter Note Tube Exchange Appointment Request Form Person filling out this form: Chiara Beltran RN Date: June 13, 2025 Time: 11:50 AM Patient Name: Marcos Aguirre Patient What type of tube is this? Nephrostomy or nephroureteral (tube in the back) Does this tube need exchanged? Yes, How many weeks? 10 to 12 weeks Per physician direction, does this need to be physician specific? No Does this patient require DISHA? Yes Per physician, can this exchange be done in the region? No, Main campus If the patient has an already existing exchange appointment can that one be cancelled? No Any other pertinent information needed for schedulers?pt has spina bifida so positioning is difficult, needs DISHA [facility] 06-11-2025 Discharge summary Note Date/Time June 11, 2025 1:43pm [facility] Medical Records Department [address] [place] [id number] Discharge Summary 06/11/25 1337 MR#: [id number] Acct: [id number] Name: MARCOS AGUIRRE Rep #:[id number] : 1995 29 From: Xavier Buck MD PCP: Dr. Nikita Gramajo DO Status:ADM IN Location: [place] [id number] Providers Date of Admission: 06/07/25 Date of Discharge: 06/11/25 Primary Care Physician: Dr. Nikita Gramajo, Consultations 06/08/25 08:56 Consult: Infectious Disease Routine Consulting Provider: Yaya Valencia Reason for Consult: high grade fever, source unclear, suspected UTI, compromised/debility EMERGENT Consult: No Notified: Yes Date Notified: 06/08/25 Time Notified: 08:56 Method of Notification: Text 06/09/25 11:57 Consult: Urology Routine Consulting Provider: Agusto Rooney Reason for Consult: uti, staghorn calculus EMERGENT Consult: No Notified: Yes Date Notified: 06/09/25 Time Notified: 12:10 Method of Notification: Verbal Reason For Visit: UTI SUSPICION OF UTI Diagnosis Discharge Diagnosis (1) Complicated urinary tract infection: Status: Acute Code(s): N39.0 - Urinary tract infection, site not specified Plan Patient is a 29-year-old gentleman with multiple comorbidities including spina bifida, BRIM SHAPER shunt who presented with fever decreased urine output as well as abdominal distention. An assessment of sepsis secondary to complicated UTI was made admitted to regular nursing floor for further management 1. Sepsis ? Secondary to complicated UTI. UTI is due to or associated with the presence ofthe indwelling wade catheter -Patient started on broad-spectrum antibiotic therapy with piperacillin/tazobactam consult placed to ID as well as urology. Patient underwent subsequent evaluation with CT of the abdomen and pelvis CT demonstrated staghorn calculi right kidney, no collecting system dilatation. Left UPJ calculus large about 10.7 mm with left hydronephrosis. Percutaneous cystostomy tube, large calculi, 2 in number 3.6 cm [address] 3[address] Rooney recommended for patient to be transferred to [facility] where patient had received previous care. Call was placed on 06/09/2025 patient has been accepted for transfer currently waiting for a bed ? 06/11/2025; patient seen continues to spike fever. Will continue with current antibiotic therapy pending acceptance by [facility] ? 06/11/2025; patient was discharged to [facility] once bed became available 2. Chronic hypoxic and hypercapnic respiratory failure ? Patient is on Airvo this a.m. 3. Thoracic spina bifida ? With resultant neuromuscular disorder and respiratory weakness complicating patient care not invasive ventilation at night 4. Hydrocephalus ? Status post of BRIM SHAPER shunt placement 5. Hypertension ? Blood pressure controlled, home medications continued with dose adjustment as needed 6. DVT prophylaxis ? SC Lovenox Time spent in the patient's overall evaluation,decision-making process, review of diagnostic data, adjustment of management, discussion with other providers, nursing nursing and ancillary staff involved in patient's care documentation, 35 Minutes Medications at Discharge Home Medications nut.tx impaired digestive fxn-fiber 0.07 gram-1.5 kcal/mL oral liquid (Vital Peptide 1.5 Shine) See Rx Instructions feeding tube .HS feed 12/01/22 cholecalciferol (vitamin D3) 10 mcg (400 unit) chewable tablet 10 mcg PO QDAY vitamin 02/27/25 diltiazem HCl 240 mg capsule,24 hr,extended release 240 mg PO QDAY heart rate 02/27/25 acetaminophen 325 mg capsule 325 mg PO Q6H PRN fever or pain 06/07/25 diphenhydramine HCl 25 mg tablet (Allergy (diphenhydramine)) 25 mg PO QHS PRN allergies 08/17/25 Physical Exam Narrative GENERAL: cooperative HEENT: Atraumatic; normocephalic EYES; Anicteric, Normal Conjunctiva NECK; supple, normal thyroid, RESPIRATORY: Diminished to auscultation CARDIOVASCULAR: Regular S1 S2, GI: soft, normoactive bowel sounds, : No Renal angle tenderness; EXTREMITIES: Right lower extremity amputation MUSCULOSKELETAL: no muscle wasting NEURO: Awake; no lateralizing signs. SKIN: No Rash PSYCH; Flat affect Weight / BMI Weight Weight: 50.7 kg Body Mass Index (BMI) 21.1 ABG / Lab / Microbiology Data 06/11/25 08:42 06/11/25 08:42 Laboratory: Laboratory Results - last 24 hr 06/10/25 16:15: POC Glucose 85 06/10/25 20:59: POC Glucose 167 H 06/11/25 06:30: POC Glucose 220 H 06/11/25 08:42: WBC 12.9 H, RBC 4.22 L, Hgb 11.9 L, Hct 35.8 L, MCV 84.8, MCH 28.2, MCHC 33.2, RDW Std Deviation 43.5, RDW Coeff of Leroy 14.1, Plt Count 255, MPV 9.8, Immature Gran % (Auto) 3.500 H, Neut % (Auto) 83.0 H, Lymph % (Auto) 6.5 L, Hamblen % (Auto) 5.4, Eos % (Auto) 1.0, Baso % (Auto) 0.6, Absolute Neuts (auto) 10.7 H, Absolute Lymphs (auto) 0.84, Nucleated RBC % 0, Sodium 142, Potassium 3.8, Chloride 104, Carbon Dioxide 24.8, Anion Gap 12, BUN 12, Creatinine 0.57 L, Estim Creat Clear Calc 139.60, Est GFR (MDRD) Non-Af 138, BUN/Creatinine Ratio 21.5 H, Glucose 102 H, Calcium 8.8, Phosphorus 2.3 L, Magnesium 2.1 06/11/25 11:10: POC Glucose 135 H Microbiology: Microbiology 06/07/25 10:30 Blood Culture (Wb) - Anticubital Right Blood Culture - Final Escherichia coli 06/07/25 10:50 Urine Catheter - Catheter Urine Culture - Final Pseudomonas aeruginosa Proteus vulgaris 06/08/25 09:40 Blood Culture (Wb) - Anticubital Right Blood Culture - Preliminary No growth in 48 hours. 06/07/25 11:39 Blood Culture (Wb) - Right Hand Blood Culture - Preliminary No growth in 48 hours. 06/07/25 10:50 Urine Catheter - Wade Legionella Antigen - Final 06/07/25 10:50 Urine Catheter - Wade Streptococcus pneumoniae Antigen (M - Final 06/07/25 12:43 Mucosa - Nose SARS-CoV-2, Influenza & RSV (PCR) - Final D/C Instructions Discharge Activity: Return to Normal Activity Call your doctor if you observe: Fever of 101 or Higher, Shortness of breath, Fainting spells and Chest pain DC O2, CPAP, BIPAP Needs Home O2 Discharge instructions: No DC home with Oxygen: No Meaningful Use Info Meaningful Use Meaningful Use Diagnoses (Choose all that apply): None applicable Discharge Plan Admission Admit Date/Time: 06/07/25 12:12 Attending Provider: Xavier Buck Primary Care Provider: Nikita Gramajo Consulting Providers: Yaya Valencia; Agusto Rooney; Gregorio Qiu Discharge Orders/Prescriptions Prescriptions: Continued Vital Peptide 1.5 Shine 0.07 gram- 1.5 kcal/mL liquid See Rx Instructions feeding tube .HS Rx Instructions: 85ml/hr via feeding tube HS; diltiazem HCl 240 mg capsule,extended release 24 hr 240 mg PO QDAY cholecalciferol (vitamin D3) 10 mcg (400 unit) tablet,chewable 10 mcg PO QDAY acetaminophen 325 mg capsule 325 mg PO Q6H PRN (Reason: fever or pain) diphenhydramine HCl [Allergy (diphenhydramine)] 25 mg tablet 25 mg PO QHS PRN (Reason: allergies) Referrals / Follow Up: Nikita Gramajo DO [Primary Care Provider] - Disposition Disposition (needs filled in before D/C Order can be placed): Acute Care Hospital Charges/Coding Visit Charges Inpatient E&M: 29524 Disch Hosp >30min 06/11/25 1343 <Electronically signed by Xavier Buck MD> Cosigner Signature (if applicable): CC: Dr. Xavier Buck MD; Dr. Nikita Gramajo DO~ Signed [facility] Work Phone: 1(911) 338-357308-20-2025 Hospital Discharge instructionsAdditional Instructions Date of Discharge: 06/11/25[facility] Work Phone: 1(800) 105-807508-20-2025 Discharge summary [facility] Medical Records [place] [address] Discharge Summary 06/11/25 1337 MR#: [id number] Acct: [id number] Name: MARCOS AGUIRRE Rep #:[id number] : 1995 29 From: Xavier Buck MD PCP: Dr. Nikita Gramajo, DO Status:ADM IN Location: [id number] Providers Date of Admission: 06/07/25 Date of Discharge: 06/11/25 Primary Care Physician: Dr. Nikita Gramajo, DO Consultations 06/08/25 08:56 Consult: Infectious Disease Routine Consulting Provider: Yaya Valencia Reason for Consult: high grade fever, source unclear, suspected UTI, compromised/debility EMERGENT Consult: No MD Notified: Yes Date Notified: 06/08/25 Time Notified: 08:56 Method of Notification: Text 06/09/25 11:57 Consult: Urology Routine Consulting Provider: Agusto Rooney Reason for Consult: uti, staghorn calculus EMERGENT Consult: No Notified: Yes Date Notified: 06/09/25 Time Notified: 12:10 Method of Notification: Verbal Reason For Visit: UTI SUSPICION OF UTI Diagnosis Discharge Diagnosis (1) Complicated urinary tract infection: Status: Acute Code(s): N39.0 - Urinary tract infection, site not specified Plan Patient is a 29-year-old gentleman with multiple comorbidities including spina bifida, BRIM SHAPER shunt whopresented with fever decreased urine output as well as abdominal distention. An assessment of sepsis secondary to complicated UTI was made admitted to regular nursing floor for further management 1. Sepsis ? Secondary to complicated UTI. UTI is due to or associated with the presence ofthe indwelling wade catheter -Patient started on broad-spectrum antibiotic therapy with piperacillin/tazobactam consult placed to ID as well as urology. Patient underwent subsequent evaluation with CT of the abdomen and pelvis CT demonstrated staghorn calculi right kidney, no collecting system dilatation. Left UPJ calculus large about 10.7 mm with left hydronephrosis. Percutaneous cystostomy tube, large calculi, 2 in number 3.6 cm and 3.[address] Rooney recommended for patient to be transferred to [facility] where patient had received previous care. Call was placed on 06/09/2025 patient has been accepted for transfer currently waiting for a bed ? 06/11/2025; patient seen continues to spike fever. Will continue with current antibiotic therapy pending acceptance by [facility] ? 06/11/2025; patient was discharged to [facility] once bed became available 2. Chronic hypoxic and hypercapnic respiratory failure ? Patient is on Airvo this a.m. 3. Thoracic spina bifida ? With resultant neuromuscular disorder and respiratory weakness complicating patient care not invasive ventilation at night 4. Hydrocephalus ? Status post of BRIM SHAPER shunt placement 5. Hypertension ? Blood pressure controlled, home medications continued with dose adjustment as needed 6. DVT prophylaxis ? SC Lovenox Time spent in the patient's overall evaluation,decision-making process, review of diagnostic data, adjustment of management, discussion with other providers, nursing nursing and ancillary staff involved in patient's care documentation, 35 Minutes Medications at Discharge Home Medications nut.tx impaired digestive fxn-fiber 0.07 gram-1.5 kcal/mL oral liquid (Vital Peptide 1.5 Shine) See Rx Instructions feeding tube .HS feed 12/01/22 cholecalciferol (vitamin D3) 10 mcg (400 unit) chewable tablet 10 mcg PO QDAY vitamin 02/27/25 diltiazem HCl 240 mg capsule,24 hr,extended release 240 mg PO QDAY heart rate 02/27/25 acetaminophen 325 mg capsule 325 mg PO Q6H PRN fever or pain 06/07/25 diphenhydramine HCl 25 mg tablet (Allergy (diphenhydramine)) 25 mg PO QHS PRN allergies 06/08/25 Physical Exam Narrative GENERAL: cooperative HEENT: Atraumatic; normocephalic EYES; Anicteric, Normal Conjunctiva NECK; supple, normal thyroid, RESPIRATORY: Diminished to auscultation CARDIOVASCULAR: Regular S1 S2, GI: soft, normoactive bowel sounds, : No Renal angle tenderness; EXTREMITIES: Right lower extremity amputation MUSCULOSKELETAL: no muscle wasting NEURO: Awake; no lateralizing signs. SKIN: No Rash PSYCH; Flat affect Weight / BMI Weight Weight: 50.7 kg Body Mass Index (BMI) 21.1 ABG / Lab / Microbiology Data 06/11/25 08:42 06/11/25 08:42 Laboratory: Laboratory Results - last 24 hr 06/10/25 16:15: POC Glucose 85 06/10/25 20:59: POC Glucose 167 H 06/11/25 06:30: POC Glucose 220 H 06/11/25 08:42: WBC 12.9 H, RBC 4.22 L, Hgb 11.9 L, Hct 35.8 L, MCV 84.8, MCH 28.2, MCHC 33.2, RDW Std Deviation 43.5, RDW Coeff of Leroy 14.1, Plt Count 255, MPV 9.8, Immature Gran % (Auto) 3.500 H, Neut % (Auto) 83.0 H, Lymph % (Auto) 6.5 L, Hamblen % (Auto) 5.4, Eos % (Auto) 1.0, Baso % (Auto) 0.6, Absolute Neuts (auto) 10.7 H, Absolute Lymphs (auto) 0.84, Nucleated RBC % 0, Sodium 142, Potassium 3.8, Chloride 104, Carbon Dioxide 24.8, Anion Gap 12, BUN 12, Creatinine 0.57 L, Estim Creat Clear Calc 139.60, Est GFR (MDRD) Non-Af 138, BUN/Creatinine Ratio 21.5 H, Glucose 102 H, Calcium 8.8, Phosphorus 2.3 L, Magnesium 2.1 06/11/25 11:10: POC Glucose 135 H Microbiology: Microbiology 06/07/25 10:30 Blood Culture (Wb) - Anticubital Right Blood Culture - Final Escherichia coli 06/07/25 10:50 Urine Catheter - Catheter Urine Culture - Final Pseudomonas aeruginosa Proteus vulgaris 06/08/25 09:40 Blood Culture (Wb) - Anticubital Right Blood Culture - Preliminary No growth in 48 hours. 06/07/25 11:39 Blood Culture (Wb) - Right Hand Blood Culture - Preliminary No growth in 48 hours. 06/07/25 10:50 Urine Catheter - Wade Legionella Antigen - Final 06/07/25 10:50 Urine Catheter - Wade Streptococcus pneumoniae Antigen (M - Final 06/07/25 12:43 Mucosa - Nose SARS-CoV-2, Influenza & RSV (PCR) - Final D/C Instructions Discharge Activity: Return to Normal Activity Call your doctor if you observe: Fever of 101 or Higher, Shortness of breath, Fainting spells and Chest pain DC O2, CPAP, BIPAP Needs Home O2 Discharge instructions: No DC home with Oxygen: No Meaningful Use Info Meaningful Use Meaningful Use Diagnoses (Choose all that apply): None applicable Discharge Plan Admission Admit Date/Time: 06/07/25 12:12 Attending Provider: Xavier Buck Primary Care Provider: Nikita Gramajo Consulting Providers: Yaya Valencia; Agusto Rooney; Gregorio Qiu Discharge Orders/Prescriptions Prescriptions: Continued Vital Peptide 1.5 Shine 0.07 gram- 1.5 kcal/mL liquid See Rx Instructions feeding tube .HS Rx Instructions: 85ml/hr via feeding tube HS; diltiazem HCl 240 mg capsule,extended release 24 hr 240 mg PO QDAY cholecalciferol (vitamin D3) 10 mcg (400 unit) tablet,chewable 10 mcg PO QDAY acetaminophen 325 mg capsule 325 mg PO Q6H PRN (Reason: fever or pain) diphenhydramine HCl [Allergy (diphenhydramine)] 25 mg tablet 25 mg PO QHS PRN (Reason: allergies) Referrals / Follow Up: Nikita Gramajo DO [Primary Care Provider] - Disposition Disposition (needs filled in before D/C Order can be placed): Acute Care Hospital Charges/Coding Visit Charges Inpatient E&M: 66121 Disch Hosp >30min 06/11/25 1343 Cosigner Signature (if applicable): CC: Dr. Xavier Buck MD; Dr. Nikita Gramajo DO~ Signed [facility]08-20-2025 [facility] Medical Records Department [address] [place] [address] Discharge Summary 06/11/25 1337 MR#: [id number] Acct: [id number] Name: MARCOS AGUIRRE Karan Rep #: [id number] : 1995 29 From: Xavier Buck MD PCP: Dr. Nikita Gramajo DO Status:ADM IN [id number] Prov[facility] Date of Admission: 06/07/25 Date of Discharge: 06/11/25 Primary Care Physician: Dr. Nikita Gramajo DO Consultations 06/08/25 08:56 Consult: Infectious Disease Routine Consulting Provider: Yaya Valencia Reason for Consult: high grade fever, source unclear, suspected UTI, compromised/debility EMERGENT Consult: No MD Notified: Yes Date Notified: 06/08/25 Time Notified: 08:56 Method of Notification: Text 06/09/25 11:57 Consult: Urology Routine Consulting Provider: Agusto Rooney Reason for Consult: uti, staghorn calculus EMERGENT Consult: No Notified: Yes Date Notified: 06/09/25 Time Notified: 12:10 Method of Notification: Verbal Reason For Visit: UTI SUSPICION OF UTI Diagnosis Discharge Diagnosis (1) Complicated urinary tract infection: Status: Acute Code(s): N39.0 - Urinary tract infection, site not specified Plan Patient is a 29-year-old gentleman with multiple comorbidities including spina bifida, BRIM SHAPER shunt who presented with fever decreased urine output as well as abdominal distention. An assessment of sepsis secondary to complicated UTI was made admitted to regular nursing floor for further management 1. Sepsis ??? Secondary to complicated UTI. UTI is due to or associated with the presence of the indwelling wade catheter -Patient started on broad-spectrum antibiotic therapy with piperacillin/tazobactam consult placed to ID as well as urology. Patient underwent subsequent evaluation with CT of the abdomen and pelvis CT demonstrated staghorn calculi right kidney, no collecting system dilatation. Left UPJ calculus large about 10.7 mm with left hydronephrosis. Percutaneous cystostomy tube, large calculi, 2 in number 3.6 cm and 3.[address] Rooney recommended for patient to be transferred to [facility] where patient had received previous care. Call was placed on 06/09/2025 patient has been accepted for transfer currently waiting for a bed ??? 06/11/2025; patient seen continues to spike fever. Will continue with current antibiotic therapy pending acceptance by [facility] ??? 06/11/2025; patient was discharged to [facility] once bed became available 2. Chronic hypoxic and hypercapnic respiratory failure ??? Patient is on Airvo this a.m. 3. Thoracic spina bifida ??? With resultant neuromuscular disorder and respiratory weakness complicating patient care not invasive ventilation at night 4. Hydrocephalus ??? Status post of BRIM SHAPER shunt placement 5. Hypertension ??? Blood pressure controlled, home medications continued with dose adjustment as needed 6. DVT prophylaxis ??? SC Lovenox Time spent in the patient's overall evaluation,decision-making process, review of diagnostic data, adjustment of management, discussion with other providers, nursing nursing and ancillary staff involved in patient's care documentation, 35 Minutes Medications at Discharge Home Medications nut.tx impaired digestive fxn-fiber 0.07 gram-1.5 kcal/mL oral liquid (Vital Peptide 1.5 Shine) See Rx Instructions feeding tube .HS feed 12/01/22 cholecalciferol (vitamin D3) 10 mcg (400 unit) chewable tablet 10 mcg PO QDAY vitamin 02/27/25 diltiazem HCl 240 mg capsule,24 hr,extended release 240 mg PO QDAY heart rate 02/27/25 acetaminophen 325 mg capsule 325 mg PO Q6H PRN fever or pain 06/07/25 diphenhydramine HCl 25 mg tablet (Allergy (diphenhydramine)) 25 mg PO QHS PRN allergies 06/08/25 Physical Exam Narrative GENERAL: cooperative HEENT: Atraumatic; normocephalic EYES; Anicteric, Normal Conjunctiva NECK; supple, normal thyroid, RESPIRATORY: Diminished to auscultation CARDIOVASCULAR: Regular S1 S2, GI: soft, normoactive bowel sounds, : No Renal angle tenderness; EXTREMITIES: Right lower extremity amputation MUSCULOSKELETAL: no muscle wasting NEURO: Awake; no lateralizing signs. SKIN: No Rash PSYCH; Flat affect Weight / BMI Weight Weight: 50.7 kg Body Mass Index (BMI) 21.1 ABG / Lab / Microbiology Data 06/11/25 08:42 06/11/25 08:42 Laboratory: Laboratory Results - last 24 hr 06/10/25 16:15: POC Glucose 85 06/10/25 20:59: POC Glucose 167 H 06/11/25 06:30: POC Glucose 220 H 06/11/25 08:42: WBC 12.9 H, RBC 4.22 L, Hgb 11.9 L, Hct 35.8 L, MCV 84.8, MCH 28.2, MCHC 33.2, RDW Std Deviation 43.5, RDW Coeff of Leroy 14.1, Plt Count 255, MPV 9.8, Immature Gran % (Auto) 3.500 H, N eut % (Auto) 83.0 H, Lymph % (Auto) 6.5 L, Hamblen % (Auto) 5.4, Eos % (Auto) 1.0, Baso % (Auto) 0.6, A bsolute Neuts (auto) 10.7 H, Absolute Lymphs (auto) 0.84, Nucleated RBC % 0, Sodium (more content not included)...[facility]08-20-2025 Progress note Author Xavier Buck [facility] Note Date/Time June 11, 2025 11 :03am [facility] Medical Records Department [address] [place] [address] Progress Note - Hospitalist 06/11/25 0744 MR#: [id number] Acct: [id number] Name: MARCOS AGUIRRE Rep #:[id number] : 1995 29 From: Xavier Buck MD PCP: Dr. Nikita Gramajo, DO Status:ADM IN Location: [place] [address]- 1 Reason for Visit Chief Complaint: High grade fever 104.4 and low urine output. Subjective Subjective Patient seen continues to spike fever. Still waiting for bed Objective Data Objective Data Vital Signs: Vital Signs Temp Pulse Resp BP Pulse Ox O2 Del Method O2 Flow Rate 98.7 F 96 16 127/94 H 99 Room Air 3 06/11/25 04:00 06/11/25 04:00 06/11/25 04:00 06/11/25 04:00 06/11/25 04:00 06/11/25 04:00 06/11/25 02:26 Oxygen Flow Rate (L/min) 3 Oxygen Delivery Method Room Air Weight: 50.7 kg Body Mass Index (BMI) 21.1 Intake & Output: Intake and Output for Last 24 Hours 06/09/25 06/10/25 06/11/25 23:59 23:59 23:59 Intake Total 650 / 650 1570 / 1570 50 / 50 Output Total 1175 / 1175 800 / 800 450 / 450 Balance -525 / -525 770 / 770 -400 / -400 Lab / Micro Data 06/11/25 08:42 06/11/25 08:42 Labs: Laboratory Results - last 24 hr 06/10/25 11:54: POC Glucose 71 L 06/10/25 16:15: POC Glucose 85 06/10/25 20:59: POC Glucose 167 H 06/11/25 06:30: POC Glucose 220 H Micro: Microbiology 06/07/25 10:30 Blood Culture (Wb) - Anticubital Right Blood Culture - Preliminary Gram negative susan 06/08/25 09:40 Blood Culture (Wb) - Anticubital Right Blood Culture - Preliminary No growth in 48 hours. 06/07/25 10:50 Urine Catheter - Catheter Urine Culture - Preliminary Proteus vulgaris 06/07/25 11:39 Blood Culture (Wb) - Right Hand Blood Culture - Preliminary No growth in 48 hours. 06/07/25 10:50 Urine Catheter - Wade Legionella Antigen - Final 06/07/25 10:50 Urine Catheter - Wade Streptococcus pneumoniae Antigen (M - Final 06/07/25 12:43 Mucosa - Nose SARS-CoV-2, Influenza & RSV (PCR) - Final Physical Exam Narrative GENERAL: cooperative HEENT: Atraumatic; normocephalic EYES; Anicteric, Normal Conjunctiva NECK; supple, normal thyroid, RESPIRATORY: Diminished to auscultation CARDIOVASCULAR: Regular S1 S2, GI: soft, normoactive bowel sounds, : No Renal angle tenderness; EXTREMITIES: Right lower extremity amputation MUSCULOSKELETAL: no muscle wasting NEURO: Awake; no lateralizing signs. SKIN: No Rash PSYCH; Flat affect Assessment & Plan Assessment/Plan (1) Complicated urinary tract infection: PLAN: Plan Patient is a 29-year-old gentleman with multiple comorbidities including spina bifida, BRIM SHAPER shunt who presented with fever decreased urine output as well as abdominal distention. An assessment of sepsis secondary to complicated UTI was made admitted to regular nursing floor for further management 1. Sepsis ? Secondary to complicated UTI. UTI is due to or associated with the presence ofthe indwelling wade catheter -Patient started on broad-spectrum antibiotic therapy with piperacillin/tazobactam consult placed to ID as well as urology. Patient underwent subsequent evaluation with CT of the abdomen and pelvis CT demonstrated staghorn calculi right kidney, no collecting system dilatation. Left UPJ calculus large about 10.7 mm with left hydronephrosis. Percutaneous cystostomy tube, large calculi, 2 in number 3.6 cm and 3.[address] Rooney recommended for patient to be transferred to [facility] where patient had received previous care. Call was placed on 06/09/2025 patient has been accepted for transfer currently waiting for a bed ? 06/11/2025; patient seen continues to spike fever. Will continue with current antibiotic therapy pending acceptance by [facility] 2. Chronic hypoxic and hypercapnic respiratory failure ? Patient is on Airvo this a.m. 3. Thoracic spina bifida ? With resultant neuromuscular disorder and respiratory weakness complicating patient care not invasive ventilation at night 4. Hydrocephalus ? Status post of BRIM SHAPER shunt placement 5. Hypertension ? Blood pressure controlled, home medications continued with dose adjustment as needed 6. DVT prophylaxis ? SC Lovenox Time spent in the patient's overall evaluation,decision-making process, review of diagnostic data, adjustment of management, discussion with other providers, nursing nursing and ancillary staff involved in patient's care documentation, 35 Minutes Charges/Coding Visit Charges Inpatient E&M: 68669 Subs Hosp L2 06/11/25 1103 <Electronically signed by Xavier Buck MD> Cosigner Signature (if applicable): CC: ~ Signed [facility] Work Phone: 1(452) 467-204508-20-2025 Progress note [facility] Medical Records Department [address] [place] [address] Progress Note - Hospitalist 06/11/25 0744 MR#: [id number] Acct: [id number] Name: OMERO AGUIRREANN MARIE Russo Rep #:[id number] : 1995 29 From: Xavier Buck MD PCP: Dr. Nikita Gramajo, DO Status:ADM IN Location: [place] [address] Reason for Visit Chief Complaint: High grade fever 104.4 and low urine output. Subjective Subjective Patient seen continues to spike fever. Still waiting for bed Objective Data Objective Data Vital Signs: Vital Signs Temp Pulse Resp BP Pulse Ox O2 Del Method O2 Flow Rate 98.7 F 96 16 127/94 H 99 Room Air 3 06/11/25 04:00 06/11/25 04:00 06/11/25 04:00 06/11/25 04:00 06/11/25 04:00 06/11/25 04:00 06/11/25 02:26 Oxygen Flow Rate (L/min) 3 Oxygen Delivery Method Room Air Weight: 50.7 kg Body Mass Index (BMI) 21.1 Intake & Output: Intake and Output for Last 24 Hours 06/09/25 06/10/25 06/11/25 23:59 23:59 23:59 Intake Total 650 / 650 1570 / 1570 50 / 50 Output Total 1175 / 1175 800 / 800 450 / 450 Balance -525 / -525 770 / 770 -400 / -400 Lab / Micro Data 06/11/25 08:42 06/11/25 08:42 Labs: Laboratory Results - last 24 hr 06/10/25 11:54: POC Glucose 71 L 06/10/25 16:15: POC Glucose 85 06/10/25 20:59: POC Glucose 167 H 06/11/25 06:30: POC Glucose 220 H Micro: Microbiology 06/07/25 10:30 Blood Culture (Wb) - Anticubital Right Blood Culture - Preliminary Gram negative susan 06/08/25 09:40 Blood Culture (Wb) - Anticubital Right Blood Culture - Preliminary No growth in 48 hours. 06/07/25 10:50 Urine Catheter - Catheter Urine Culture - Preliminary Proteus vulgaris 06/07/25 11:39 Blood Culture (Wb) - Right Hand Blood Culture - Preliminary No growth in 48 hours. 06/07/25 10:50 Urine Catheter - Wade Legionella Antigen - Final 06/07/25 10:50 Urine Catheter - Wade Streptococcus pneumoniae Antigen (M - Final 06/07/25 12:43 Mucosa - Nose SARS-CoV-2, Influenza & RSV (PCR) - Final Physical Exam Narrative GENERAL: cooperative HEENT: Atraumatic; normocephalic EYES; Anicteric, Normal Conjunctiva NECK; supple, normal thyroid, RESPIRATORY: Diminished to auscultation CARDIOVASCULAR: Regular S1 S2, GI: soft, normoactive bowel sounds, : No Renal angle tenderness; EXTREMITIES: Right lower extremity amputation MUSCULOSKELETAL: no muscle wasting NEURO: Awake; no lateralizing signs. SKIN: No Rash PSYCH; Flat affect Assessment & Plan Assessment/Plan (1) Complicated urinary tract infection: PLAN: Plan Patient is a 29-year-old gentleman with multiple comorbidities including spina bifida, BRIM SHAPER shunt whopresented with fever decreased urine output as well as abdominal distention. An assessment of sepsis secondary to complicated UTI was made admitted to regular nursing floor for further management 1. Sepsis ? Secondary to complicated UTI. UTI is due to or associated with the presence ofthe indwelling wade catheter -Patient started on broad-spectrum antibiotic therapy with piperacillin/tazobactam consult placed to ID as well as urology. Patient underwent subsequent evaluation with CT of the abdomen and pelvis CT demonstrated staghorn calculi right kidney, no collecting system dilatation. Left UPJ calculus large about 10.7 mm with left hydronephrosis. Percutaneous cystostomy tube, large calculi, 2 in number 3.6 cm and 3.[address] Rooney recommended for patient to be transferred to [facility] where patient had received previous care. Call was placed on 06/09/2025 patient has been accepted for transfer currently waiting for a bed ? 06/11/2025; patient seen continues to spike fever. Will continue with current antibiotic therapy pending acceptance by [facility] 2. Chronic hypoxic and hypercapnic respiratory failure ? Patient is on Airvo this a.m. 3. Thoracic spina bifida ? With resultant neuromuscular disorder and respiratory weakness complicating patient care not invasive ventilation at night 4. Hydrocephalus ? Status post of BRIM SHAPER shunt placement 5. Hypertension ? Blood pressure controlled, home medications continued with dose adjustment as needed 6. DVT prophylaxis ? SC Lovenox Time spent in the patient's overall evaluation,decision-making process, review of diagnostic data, adjustment of management, discussion with other providers, nursing nursing and ancillary staff involved in patient's care documentation, 35 Minutes Charges/Coding Visit Charges Inpatient E&M: 02180 Subs Hosp L2 06/11/25 1103 Cosigner Signature (if applicable): CC: ~ Signed [facility]08-19-2025 Progress note Author Xavier Buck [facility] Note Date/Time June 10, 2025 11 :47am [facility] Medical Records Department [address] [place] [address] Progress Note - Hospitalist 06/10/25 1127 MR#: [id number] Acct: [id number] Name: MARCOS AGUIRRE Rep #:[id number] : 1995 29 From: Xavier Buck MD PCP: Dr. Nikita Gramajo, DO Status:ADM IN Location: [place] [address] Reason for Visit Chief Complaint: High grade fever 104.4 and low urine output. Objective Data Objective Data Vital Signs: Vital Signs Temp Pulse Resp BP Pulse Ox O2 Del Method O2 Flow Rate 99.0 F 92 20 H 117/85 H 99 Room Air 3 06/10/25 03:20 06/10/25 03:20 06/10/25 03:20 06/10/25 03:20 06/10/25 03:20 06/10/25 07:35 06/10/25 03:23 Oxygen Flow Rate (L/min) 3 Oxygen Delivery Method Room Air Weight: 51.1 kg Body Mass Index (BMI) 21.2 Intake & Output: Intake and Output for Last 24 Hours 06/08/25 06/09/25 06/10/25 23:59 23:59 23:59 Intake Total 450 / 450 650 / 650 100 / 100 Output Total 1425 / 1550 1175 / 1175 50 / 50 Balance -975 / -1100 -525 / -525 50 / 50 Lab / Micro Data 06/10/25 05:19 06/10/25 05:19 Labs: Laboratory Results - last 24 hr 06/09/25 11:36: POC Glucose 119 H 06/09/25 16:17: POC Glucose 97 06/09/25 22:49: POC Glucose 91 06/10/25 05:19: WBC 10.3, RBC 4.52 L, Hgb 12.5 L, Hct 38.9 L, MCV 86.1, MCH 27.7, MCHC 32.1, RDW Std Deviation 43.6, RDW Coeff of Leroy 13.9, Plt Count 232, MPV 9.6, Immature Gran % (Auto) 0.800, Neut % (Auto) 69.4, Lymph % (Auto) 13.4 L, Hamblen % (Auto) 14.8 H, Eos % (Auto) 1.2, Baso % (Auto) 0.4, Absolute Neuts (auto) 7.2, Absolute Lymphs (auto) 1.38, Nucleated RBC % 0, Differential CommentSCANNED, Sodium 143, Potassium 3.7, Chloride 105, Carbon Dioxide 23.1, Anion Gap14, BUN 14, Creatinine 0.64 L, Estim Creat Clear Calc 125.31, Est GFR (MDRD) Non-Af 133, BUN/Creatinine Ratio 22.3 H, Glucose 85, Calcium 9.2 06/10/25 06:07: POC Glucose 79 Micro: Microbiology 06/07/25 10:30 Blood Culture (Wb) - Anticubital Right Blood Culture - Preliminary Gram negative susan 06/08/25 09:40 Blood Culture (Wb) - Anticubital Right Blood Culture - Preliminary No growth in 48 hours. 06/07/25 10:50 Urine Catheter - Catheter Urine Culture - Preliminary Proteus vulgaris 06/07/25 11:39 Blood Culture (Wb) - Right Hand Blood Culture - Preliminary No growth in 48 hours. 06/07/25 10:50 Urine Catheter - Wade Legionella Antigen - Final 06/07/25 10:50 Urine Catheter - Wade Streptococcus pneumoniae Antigen (M - Final 06/07/25 12:43 Mucosa - Nose SARS-CoV-2, Influenza & RSV (PCR) - Final Physical Exam Narrative GENERAL: cooperative HEENT: Atraumatic; normocephalic EYES; Anicteric, Normal Conjunctiva NECK; supple, normal thyroid, RESPIRATORY: Diminished to auscultation CARDIOVASCULAR: Regular S1 S2, GI: soft, normoactive bowel sounds, : No Renal angle tenderness; EXTREMITIES: Right lower extremity amputation MUSCULOSKELETAL: no muscle wasting NEURO: Awake; no lateralizing signs. SKIN: No Rash PSYCH; Flat affect Assessment & Plan Assessment/Plan (1) Complicated urinary tract infection: PLAN: Plan Patient is a 29-year-old gentleman with multiple comorbidities including spina bifida, BRIM SHAPER shunt who presented with fever decreased urine output as well as abdominal distention. An assessment of sepsis secondary to complicated UTI was made admitted to regular nursing floor for further management 1. Sepsis ? Secondary to complicated UTI. Patient started on broad-spectrum antibiotic therapy with piperacillin/tazobactam consult placed to ID as well as urology. Patient underwent subsequent evaluation with CT of the abdomen and pelvis CT demonstrated staghorn calculi right kidney, no collecting system dilatation. Left UPJ calculus large about 10.7 mm with left hydronephrosis. Percutaneous cystostomy tube, large calculi, 2 in number 3.6 cm and 3.[address] Rooney recommended for patient to be transferred to [facility] where patient had received previous care. Call was placed on 06/09/2025 patient has been accepted for transfer currently waiting for a bed 2. Chronic hypoxic and hypercapnic respiratory failure ? Patient is on Airvo this a.m. 3. Thoracic spina bifida ? With resultant neuromuscular disorder and respiratory weakness complicating patient care not invasive ventilation at night 4. Hydrocephalus ? Status post of BRIM SHAPER shunt placement 5. Hypertension ? Blood pressure controlled, home medications continued with dose adjustment as needed 6. DVT prophylaxis ? SC Lovenox Time spent in the patient's overall evaluation,decision-making process, review of diagnostic data, adjustment of management, discussion with other providers, nursing nursing and ancillary staff involved in patient's care documentation, 36 Minutes Charges/Coding Visit Charges Inpatient E&M: 02333 Subs Hosp L2 06/10/25 1147 <Electronically signed by Xavier Buck MD> Cosigner Signature (if applicable): CC: ~ Signed [facility] Work Phone: 1(432) 611-637108-19-2025 Progress note Author Yaya Valencia [facility] Note Date/Time June 10, 2025 10 :23am [facility] Medical Records Department [address] [place] [address] Progress Note - Infect Disease 06/10/25 1022 MR#: [id number] Acct: [id number] Name: MARCOS AGUIRRE Rep #:[id number] : 1995 29 From: Yaya best MD PCP: Dr. Nikita Gramajo, DO Status:ADM IN Location: [place] [address] Physical Exam Narrative Feeling ok, no fever Const alert and no apparent distress General Appearance: cooperative Resp normal air movement and clear to auscultation bilaterally Cardio regular rate and regular rhythm GI soft to palpation, non-tender and non-distended Skin no rashes or lesions noted ID ID: Route of nutrition/ use of supplements: [] Nutritional Intake: [] IV Site: [] Wade Catheter: [] Assessment & Plan Assessment/Plan (1) Complicated urinary tract infection: PLAN: Comp uti with staghorn in place, complicated by GNR bacteremia. Ucx with proteus, Bcx with GNR. Cont zosyn. Urology consulted. Will follow 06/10/25 1023 <Electronically signed by Yaya Valencia MD> Cosigner Signature (if applicable): CC: ~ Signed [facility] Work Phone: 1(173) 687-678108-19-2025 Progress note [facility] Medical Records Department [address] [place] [address] Progress Note - Hospitalist 06/10/25 1127 MR#: [id number] Acct: [id number] Name: MARCOS AGUIRRE Rep #:[id number] : 1995 29 From: Xavier Buck MD PCP: Dr. Nikita Gramajo, DO Status:ADM IN Location: [place] [address] Reason for Visit Chief Complaint: High grade fever 104.4 and low urine output. Objective Data Objective Data Vital Signs: Vital Signs Temp Pulse Resp BP Pulse Ox O2 Del Method O2 Flow Rate 99.0 F 92 20 H 117/85 H 99 Room Air 3 06/10/25 03:20 06/10/25 03:20 06/10/25 03:20 06/10/25 03:20 06/10/25 03:20 06/10/25 07:35 06/10/25 03:23 Oxygen Flow Rate (L/min) 3 Oxygen Delivery Method Room Air Weight: 51.1 kg Body Mass Index (BMI) 21.2 Intake & Output: Intake and Output for Last 24 Hours 06/08/25 06/09/25 06/10/25 23:59 23:59 23:59 Intake Total 450 / 450 650 / 650 100 / 100 Output Total 1425 / 1550 1175 / 1175 50 / 50 Balance -975 / -1100 -525 / -525 50 / 50 Lab / Micro Data 06/10/25 05:19 06/10/25 05:19 Labs: Laboratory Results - last 24 hr 06/09/25 11:36: POC Glucose 119 H 06/09/25 16:17: POC Glucose 97 06/09/25 22:49: POC Glucose 91 06/10/25 05:19: WBC 10.3, RBC 4.52 L, Hgb 12.5 L, Hct 38.9 L, MCV 86.1, MCH 27.7, MCHC 32.1, RDW Std Deviation 43.6, RDW Coeff of Leroy 13.9, Plt Count 232, MPV 9.6, Immature Gran % (Auto) 0.800, Neut % (Auto) 69.4, Lymph % (Auto) 13.4 L, Hamblen % (Auto) 14.8 H, Eos % (Auto) 1.2, Baso % (Auto) 0.4, Absolute Neuts (auto) 7.2, Absolute Lymphs (auto) 1.38, Nucleated RBC % 0, Differential CommentSCANNED,Sodium 143, Potassium 3.7, Chloride 105, Carbon Dioxide 23.1, Anion Gap14, BUN 14, Creatinine 0.64 L, Estim Creat Clear Calc 125.31, Est GFR (MDRD) Non-Af 133, BUN/Creatinine Ratio 22.3 H, Glucose 85, Calcium 9.2 06/10/25 06:07: POC Glucose 79 Micro: Microbiology 06/07/25 10:30 Blood Culture (Wb) - Anticubital Right Blood Culture - Preliminary Gram negative susan 06/08/25 09:40 Blood Culture (Wb) - Anticubital Right Blood Culture - Preliminary No growth in 48 hours. 06/07/25 10:50 Urine Catheter - Catheter Urine Culture - Preliminary Proteus vulgaris 06/07/25 11:39 Blood Culture (Wb) - Right Hand Blood Culture - Preliminary No growth in 48 hours. 06/07/25 10:50 Urine Catheter - Wade Legionella Antigen - Final 06/07/25 10:50 Urine Catheter - Wade Streptococcus pneumoniae Antigen (M - Final 06/07/25 12:43 Mucosa - Nose SARS-CoV-2, Influenza & RSV (PCR) - Final Physical Exam Narrative GENERAL: cooperative HEENT: Atraumatic; normocephalic EYES; Anicteric, Normal Conjunctiva NECK; supple, normal thyroid, RESPIRATORY: Diminished to auscultation CARDIOVASCULAR: Regular S1 S2, GI: soft, normoactive bowel sounds, : No Renal angle tenderness; EXTREMITIES: Right lower extremity amputation MUSCULOSKELETAL: no muscle wasting NEURO: Awake; no lateralizing signs. SKIN: No Rash PSYCH; Flat affect Assessment & Plan Assessment/Plan (1) Complicated urinary tract infection: PLAN: Plan Patient is a 29-year-old gentleman with multiple comorbidities including spina bifida, BRIM SHAPER shunt whopresented with fever decreased urine output as well as abdominal distention. An assessment of sepsis secondary to complicated UTI was made admitted to regular nursing floor for further management 1. Sepsis ? Secondary to complicated UTI. Patient started on broad-spectrum antibiotic therapy with piperacillin/tazobactam consult placed to ID as well as urology. Patient underwent subsequent evaluation withCT of the abdomen and pelvis CT demonstrated staghorn calculi right kidney, no collecting system dilatation. Left UPJ calculus large about 10.7 mm with left hydronephrosis. Percutaneous cystostomy tube, large calculi, 2 in number 3.6 cm and 3.[address] Rooney recommended for patient to be transferred to [facility] where patient had received previous care. Call was placed on 06/09/2025 patient has been accepted for transfer currently waiting for a bed 2. Chronic hypoxic and hypercapnic respiratory failure ? Patient is on Airvo this a.m. 3. Thoracic spina bifida ? With resultant neuromuscular disorder and respiratory weakness complicating patient care not invasive ventilation at night 4. Hydrocephalus ? Status post of BRIM SHAPER shunt placement 5. Hypertension ? Blood pressure controlled, home medications continued with dose adjustment as needed 6. DVT prophylaxis ? SC Lovenox Time spent in the patient's overall evaluation,decision-making process, review of diagnostic data, adjustment of management, discussion with other providers, nursing nursing and ancillary staff involved in patient's care documentation, 36 Minutes Charges/Coding Visit Charges Inpatient E&M: 52457 Subs Hosp L2 06/10/25 1147 Cosigner Signature (if applicable): CC: ~ Signed [facility]08-19-2025 Consult note Author Yaya Valencia [facility] Note Date/Time June 10, 2025 8: 53am [facility] Medical Records Department [address] [place] [address] Consultation - Infectious Dx 06/09/25 1410 MR#: [id number] Acct: [id number] Name: MARCOS AGUIRRE Rep #:[id number] : 1995 29 From: Yaya best MD PCP: Dr. Nikita Gramajo, DO Status:ADM IN Location: [place] [id number]- [id number] Assessment & Plan Assessment/Plan (1) Complicated urinary tract infection: PLAN: Comp uti with staghorn in place. Cont meropenem. Urology consulted. Will follow, thank you HPI Consult Data Date of Consult: 06/09/25 HPI Narrative Reason for Consultation: uti HPI Narrative: MARCOS AGUIRRE, is a 29 M with h/o spina bifida, BRIM SHAPER shunt, presented with acute onset fever, fatigue, abd distension. No pain in abd due to lack of sensation below his chest. Mother saw he had passed stones recently in his urine. Came to ED, admitted on meropenem, feeling better today. Full ROS performed and neg except as noted above. 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 Chronic respiratory failure with hypoxia and hypercapnia Neuromuscular respiratory weakness Chronic respiratory failure requiring treatment with nocturnal BPAP by mask Home Medications ?Medication ?Instructions ?Recorded ?Last Taken ?Type nut.tx impaired digestive See Rx Instructions feeding tube 12/01/22 Unknown History fxn-fiber 0.07 gram-1.5 kcal/mL .HS feed oral liquid (Vital Peptide 1.5 Shine) cholecalciferol (vitamin D3) 10 10 mcg PO QDAY 5 06/06/25 History mcg (400 unit) chewable tablet diltiazem HCl 240 mg capsule,24 240 mg PO QDAY 5 06/06/25 History hr,extended release acetaminophen 325 mg capsule 325 mg PO Q6H PRN fever o r pain 06/07/25 06/07/25 History diphenhydramine HCl 25 mg tablet 25 mg PO QHS PRN tami rgies 06/08/25 Unknown History (Allergy (diphenhydramine)) Allergy/AdvReac Type Severity Reaction Status Date / Time bacitracin Allergy Mild unknown Verified 06/07/25 10:38 latex Allergy Unknown Verified 06/07/25 10:38 levofloxacin (Levofloxacin) Allergy Rash Verified 06/07/25 10:38 sulfamethoxazole (From Allergy Rash Verified 06/07/25 10:38 Bactrim) trimethoprim (From Bactrim) Allergy Rash Verified 06/07/25 10:38 Social History Smoking Status: Never smoker Physical Exam Const alert and no apparent distress General Appearance: cooperative HEENT head/scalp atraumatic Eyes PERRL and EOMs intact bilaterally Neck supple and No nodes Resp normal air movement and clear to auscultation bilaterally Cardio regular rate and regular rhythm GI soft to palpation, non-tender and non-distended Extremity Extremity Narrative: R AKA General Extremity: edema Skin no rashes or lesions noted Neuro CN's II-XII intact bilaterally Lab / Micro Data Attestation: I reviewed the patient's lab results. 06/09/25 04:22 06/09/25 04:22 Labs: Laboratory Results - last 24 hr 06/08/25 16:52: POC Glucose 104 06/08/25 21:26: POC Glucose 170 H 06/09/25 04:22: WBC 10.5, RBC 4.21 L, Hgb 11.8 L, Hct 36.2 L, MCV 86.0, MCH 28.0, MCHC 32.6, RDW Std Deviation 42.2, RDW Coeff of Leroy 13.5, Plt Count 221, MPV 10.0, Immature Gran % (Auto) 0.600, Neut % (Auto) 70.7 H, Lymph % (Auto) 13.8 L, Hamblen % (Auto) 12.5 H, Eos % (Auto) 2.0, Baso % (Auto) 0.4, Absolute Neuts (auto) 7.4, Absolute Lymphs (auto) 1.44, Nucleated RBC % 0, Sodium 138, Potassium 3.6, Chloride 104, Carbon Dioxide 23.0, Anion Gap 11, BUN 12, Creatinine 0.64 L, Estim Creat Clear Calc 128.25, Est GFR (MDRD) Non-Af 133, BUN/Creatinine Ratio 18.1, Glucose 194 H, Hemoglobin A1c 5.4, Calcium 8.7 06/09/25 06:00: POC Glucose 192 H 06/09/25 11:36: POC Glucose 119 H Micro: Microbiology 06/07/25 11:39 Blood Culture (Wb) - Right Hand Blood Culture - Preliminary No growth in 48 hours. 06/07/25 10:30 Blood Culture (Wb) - Anticubital Right Blood Culture - Preliminary No growth in 48 hours. 06/07/25 10:50 Urine Catheter - Catheter Urine Culture - Preliminary Proteus vulgaris Imaging Radiology Impression Abdomen/Pelvis CT 06/09/25 10:25 IMPRESSION: 1. 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 Skin thickening posterior low back and overlying the right buttock region. No definite ulcer. Early stage decubitus ulcer is potentially present. Recommend direct inspection. 2. Compressive atelectasis of the lung bases related to curvature. 3. BRIM SHAPER shunt, cholecystectomy, appendectomy, percutaneous gastrostomy, right lower quadrant colostomy, percutaneous cystostomy. 4. Staghorn calculi right kidney. No collecting system dilation. Obstructing UPJ calculus on the left. The calculus is large. Urology consultation suggested. 5. Bladder stones. Reading Location: [id number] 06/09/25 4243 <Electronically signed by Yaya Valencia MD> Cosigner Signature (if applicable): CC: Dr. Nikita Gramajo, DO~ Signed ADDENDUM by Dr. Yaya Valencia MD on 06/10/25 at 0853 Addendum correction, on zosyn not meropenem 06/10/25 0853<Electronically signed by Yaya Valencia MD> Cosigner Signature (if applicable): cc: Dr. Nikita Gramajo, ~* Signed [facility] Work Phone: 1(841) 905-847608-19-2025 Progress note [facility] Medical Records Department [address] [place] [address] Progress Note - Infect Disease 06/10/25 1022 MR#: [id number] Acct: [id number] Name: MARCOS AGUIRRE Rep #:[id number] : 1995 From: Yaya best MD PCP: Dr. Nikita Gramajo, DO Status:ADM IN Location: [place] [address] Physical Exam Narrative Feeling ok, no fever Const alert and no apparent distress General Appearance: cooperative Resp normal air movement and clear to auscultation bilaterally Cardio regular rate and regular rhythm GI soft to palpation, non-tender and non-distended Skin no rashes or lesions noted ID ID: Route of nutrition/ use of supplements: [] Nutritional Intake: [] IV Site: [] Wade Catheter: [] Assessment & Plan Assessment/Plan (1) Complicated urinary tract infection: PLAN: Comp uti with staghorn in place, complicated by GNR bacteremia. Ucx with proteus, Bcx with GNR. Cont zosyn. Urology consulted. Will follow 06/10/25 1023 Cosigner Signature (if applicable): CC: ~ Signed [facility]08-19-2025 Consult note [facility] Medical Records Department [address] [place] [address] Consultation - Infectious Dx 06/09/25 1410 MR#: [id number] Acct: [id number] Name: MARCOS AGUIRRE Rep #:[id number] : 1995 From: Yaya best MD PCP: Dr. Nikita Gramajo, Status:ADM IN Location: [place] [address] Assessment & Plan Assessment/Plan (1) Complicated urinary tract infection: PLAN: Comp uti with staghorn in place. Cont meropenem. Urology consulted. Will follow, thank you HPI Consult Data Date of Consult: 06/09/25 HPI Narrative Reason for Consultation: uti HPI Narrative: MARCOS AGUIRRE, is a 29 M with h/o spina bifida, BRIM SHAPER shunt, presented with acute onset fever, fatigue, abd distension. No pain in abd due to lack of sensation below his chest. Mother saw he had passed stones recently in his urine. Came to ED, admitted on meropenem, feeling better today. Full ROS performed and neg except as noted above. 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 Chronic respiratory failure with hypoxia and hypercapnia Neuromuscular respiratory weakness Chronic respiratory failure requiring treatment with nocturnal BPAP by mask Home Medications ?Medication ?Instructions ?Recorded ?Last Taken ?Type nut.tx impaired digestive See Rx Instructions feeding tube 12/01/22 Unknown History fxn-fiber 0.07 gram-1.5 kcal/mL .HS feed oral liquid (Vital Peptide 1.5 Shine) cholecalciferol (vitamin D3) 10 10 mcg PO QDAY 5 06/06/25 History mcg (400 unit) chewable tablet diltiazem HCl 240 mg capsule,24 240 mg PO QDAY 5 06/06/25 History hr,extended release acetaminophen 325 mg capsule 325 mg PO Q6H PRN fever o r pain 06/07/25 06/07/25 History diphenhydramine HCl 25 mg tablet 25 mg PO QHS PRN tami rgies 06/08/25 Unknown History (Allergy (diphenhydramine)) Allergy/AdvReac Type Severity Reaction Status Date / Time bacitracin Allergy Mild unknown Verified 06/07/25 10:38 latex Allergy Unknown Verified 06/07/25 10:38 levofloxacin (Levofloxacin) Allergy Rash Verified 06/07/25 10:38 sulfamethoxazole (From Allergy Rash Verified 06/07/25 10:38 Bactrim) trimethoprim (From Bactrim) Allergy Rash Verified 06/07/25 10:38 Social History Smoking Status: Never smoker Physical Exam Const alert and no apparent distress General Appearance: cooperative HEENT head/scalp atraumatic Eyes PERRL and EOMs intact bilaterally Neck supple and No nodes Resp normal air movement and clear to auscultation bilaterally Cardio regular rate and regular rhythm GI soft to palpation, non-tender and non-distended Extremity Extremity Narrative: R AKA General Extremity: edema Skin no rashes or lesions noted Neuro CN's II-XII intact bilaterally Lab / Micro Data Attestation: I reviewed the patient's lab results. 06/09/25 04:22 06/09/25 04:22 Labs: Laboratory Results - last 24 hr 06/08/25 16:52: POC Glucose 104 06/08/25 21:26: POC Glucose 170 H 06/09/25 04:22: WBC 10.5, RBC 4.21 L, Hgb 11.8 L, Hct 36.2 L, MCV 86.0, MCH 28.0, MCHC 32.6, RDW Std Deviation 42.2, RDW Coeff of Leroy 13.5, Plt Count 221, MPV 10.0, Immature Gran % (Auto) 0.600, Neut% (Auto) 70.7 H, Lymph % (Auto) 13.8 L, Hamblen % (Auto) 12.5 H, Eos % (Auto) 2.0, Baso % (Auto) 0.4, Absolute Neuts (auto) 7.4, Absolute Lymphs (auto) 1.44, Nucleated RBC % 0, Sodium 138, Potassium 3.6, Chloride 104, Carbon Dioxide 23.0, Anion Gap 11, BUN 12, Creatinine 0.64 L, Estim Creat Clear Kkyt119.25, Est GFR (MDRD) Non-Af 133, BUN/Creatinine Ratio 18.1, Glucose 194 H, Hemoglobin A1c 5.4, Calcium 8.7 06/09/25 06:00: POC Glucose 192 H 06/09/25 11:36: POC Glucose 119 H Micro: Microbiology 06/07/25 11:39 Blood Culture (Wb) - Right Hand Blood Culture - Preliminary No growth in 48 hours. 06/07/25 10:30 Blood Culture (Wb) - Anticubital Right Blood Culture - Preliminary No growth in 48 hours. 06/07/25 10:50 Urine Catheter - Catheter Urine Culture - Preliminary Proteus vulgaris Imaging Radiology Impression Abdomen/Pelvis CT 06/09/25 10:25 IMPRESSION: 1. 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 Skin thickening posterior low back and overlying the right buttock region. No definite ulcer. Early stage decubitus ulcer is potentially present. Recommend direct inspection. 2. Compressive atelectasis of the lung bases related to curvature. 3. BRIM SHAPER shunt, cholecystectomy, appendectomy, percutaneous gastrostomy, right lower quadrant colostomy, percutaneous cystostomy. 4. Staghorn calculi right kidney. No collecting system dilation. Obstructing UPJ calculus on the left. The calculus is large. Urology consultation suggested. 5. Bladder stones. Reading Location: [facility] 06/09/25 1415 Cosigner Signature (if applicable): CC: Dr. Nikita Gramajo DO~ Signed ADDENDUM by Dr. Yaya Valencia MD on 06/10/25 at 0853 Addendum correction, on zosyn not meropenem 06/10/25 0853 Cosigner Signature (if applicable): cc: Dr. Nikita Gramajo DO ~* Signed [facility]08-18-2025 Progress note Author Gregorio Qiu [facility] Note Date/Time June 09, 2025 4: 27pm [facility] Medical Records Department [address] [place] [id number] Progress Note - Hospitalist 06/09/25 1547 MR#: [id number] Acct: [id number] Name: MARCOS AGUIRRE Rep #:[id number] : 1995 29 From: Gregorio Russo PCP: Dr. Nikita Gramajo DO Status:ADM IN Location: [place] [address] Reason for Visit Chief Complaint: High grade fever 104.4 and low urine output. Objective Data Objective Data Vital Signs: Vital Signs Temp Pulse Resp BP Pulse Ox O2 Del Method O2 Flow Rate 100.4 F H 113 H 20 H 125/83 H 98 Bi-pap 3 06/09/25 14:10 06/09/25 14:10 06/09/25 14:10 06/09/25 14:10 06/09/25 14:10 06/09/25 14:10 06/09/25 14:10 Oxygen Flow Rate (L/min) 3 Oxygen Delivery Method Bi-pap Weight: 121 lb 7.595 oz Body Mass Index (BMI) 22.9 Intake & Output: Intake and Output for Last 24 Hours 06/07/25 06/08/25 06/09/25 23:59 23:59 23:59 Intake Total 3560 / 3560 450 / 450 400 / 400 Output Total 550 / 800 1425 / 1550 675 / 675 Balance 3010 / 2760 -975 / -1100 -275 / -275 Lab / Micro Data 06/09/25 04:22 06/09/25 04:22 Labs: Laboratory Results - last 24 hr 06/08/25 16:52: POC Glucose 104 06/08/25 21:26: POC Glucose 170 H 06/09/25 04:22: WBC 10.5, RBC 4.21 L, Hgb 11.8 L, Hct 36.2 L, MCV 86.0, MCH 28.0, MCHC 32.6, RDW Std Deviation 42.2, RDW Coeff of Leroy 13.5, Plt Count 221, MPV 10.0, Immature Gran % (Auto) 0.600, Neut % (Auto) 70.7 H, Lymph % (Auto) 13.8 L, Hamblen % (Auto) 12.5 H, Eos % (Auto) 2.0, Baso % (Auto) 0.4, Absolute Neuts (auto) 7.4, Absolute Lymphs (auto) 1.44, Nucleated RBC % 0, Sodium 138, Potassium 3.6, Chloride 104, Carbon Dioxide 23.0, Anion Gap 11, BUN 12, Creatinine 0.64 L, Estim Creat Clear Calc 128.25, Est GFR (MDRD) Non-Af 133, BUN/Creatinine Ratio 18.1, Glucose 194 H, Hemoglobin A1c 5.4, Calcium 8.7 06/09/25 06:00: POC Glucose 192 H 06/09/25 11:36: POC Glucose 119 H Micro: Microbiology 06/07/25 11:39 Blood Culture (Wb) - Right Hand Blood Culture - Preliminary No growth in 48 hours. 06/07/25 10:30 Blood Culture (Wb) - Anticubital Right Blood Culture - Preliminary No growth in 48 hours. 06/07/25 10:50 Urine Catheter - Catheter Urine Culture - Preliminary Proteus vulgaris 06/07/25 10:50 Urine Catheter - Wade Legionella Antigen - Final 06/07/25 10:50 Urine Catheter - Wade Streptococcus pneumoniae Antigen (M - Final 06/07/25 12:43 Mucosa - Nose SARS-CoV-2, Influenza & RSV (PCR) - Final Radiography Diagnostic Testing: Radiology Impression Abdomen/Pelvis CT 06/09/25 10:25 IMPRESSION: 1. 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 Skin thickening posterior low back and overlying the right buttock region. No definite ulcer. Early stage decubitus ulcer is potentially present. Recommend direct inspection. 2. Compressive atelectasis of the lung bases related to curvature. 3. BRIM SHAPER shunt, cholecystectomy, appendectomy, percutaneous gastrostomy, right lower quadrant colostomy, percutaneous cystostomy. 4. Staghorn calculi right kidney. No collecting system dilation. Obstructing UPJ calculus on the left. The calculus is large. Urology consultation suggested. 5. Bladder stones. Reading Location: [facility] Physical Exam Narrative Seen and examined Patient intermittently spikes fever. He was afebrile in the morning and yesterday evening but he had a temperature 100.4 F about [address] abdomenwas done. ID consult. Urology consult. As per the mother he had passed a stone/stone debris couple days ago before admission. Physical exam General: Alert, Oriented x3, Cooperative. Short stature. BMI 21.1 kg/m?, 5'1 height HEENT: Atraumatic, PERRLA, EOMI, Normocephalic. Oral: Oral mucosa dry. No Gingival or Mucosal Lesions/ Ulcerations Neck: Very short and wide neck. Supple, No JVD, Negative Carotid Bruits Chest wall/Lungs: Surgical scar on the back, kyphoscoliosis. Air entry diminished in bilateral lung bases. No crepitation/rhonchi Cardiovascular: Sinus tachycardia, normal S1,S2, No M/G/R Abdomen: Bowel Sounds sluggish, soft, early colostomy. No rigidity. No distention : Indwelling catheter from umbilicus draining bladder. No renal angle tenderness. No suprapubic tenderness. 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 No Tenderness to Palpation of Joints or Extremities Spine: Thoracic surgical scar cruz. Contracture in the back with, spinal deformity Neurological: No sensation below mid thoracic level. Complete neuroexam unobtainable with spina bifid deformity. Psych/Mental Status: Flat affect Assessment & Plan Assessment/Plan (1) Complicated urinary tract infection: PLAN: Plan This 29-year-old gentleman is being admitted high-grade fever, decreased urine output with suspicion of complicated UTI 1. SIRS criteria due to complicated UTI: Patient does not have features/signs and symptoms of sepsis at the time of admission. Patient has tachycardia, high-grade fever and leukocytosis IV fluid 1600 mL as per 30 mL/kg body weight. Previous urine culture grew Pseudomonas therefore started on IV cefepime 2 g every 12 hourly. Lactic acid normal. UA shows positive nitrite, LE 500, WBC 5200 cells, RBC 5-10 cells, 2+ bacteria. Squamous epithelial 0-5 cells. 06/08: Patient had fever 102.5 Fahrenheit. Discussed with ID. Patient on IV cefepime. ID consult tomorrow. Urine culture shows GNR 80,000?100,000 colonies. Blood culture pending. Repeat blood culture ordered. Urinary antigens, MRSA nasal screen are negative. Triple PCR for SARS-CoV-2, flu and RSV are negative 06/09: Patient was afebrile until 2 PM. Temperature 100.4 ?F. Leukocytosis resolved. Has neutrophilia. Electrolytes within normal limit. Kidney functioncreatinine normal. In the morning he had CT abdomen/pelvis which reported staghorn calculi right kidney, no collecting system dilatation. Left UPJ calculus large about 10.7 mm with left hydronephrosis. Percutaneous cystostomy tube, large calculi, 2 in number 3.6 cm and 3.4 cm. As per the mother it is notunusual for the patient to have kidney or bladder stones and it was removed by the [facility] urologist in the past. Patient was seen by ID who consulted urologist. Dr. Rooney called me that he needs bilateral nephrostomy tube and transfer to [facility]. Afterwards, I talked to patient's mother who who is to transfer to [facility] as his urologist is Dr. Kelsie Giraldo who had taken care of him in the past. I called [facility] transferline and gave the initial clinical information in details. Waiting for the callback. Patient is going Proteus vulgaris, 80,000 -100,000 colonies. With patient is spiking grade fever, antibiotic was changed from cefepime to Zosyn yesterday. Seen by ID who recommended to continue IV Zosyn even though he wrotein the note that he was admitted on meropenem and to continue it. I called himand he said to continue Zosyn. 2. Chronic hypoxic and hypercarbic respiratory failure: Currently patient does not require oxygen. Pulse ox 95% on room air. Follows in pulmonary clinic, last visit on 06/05. Patient has noninvasive ventilator. 3. 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 4. Sinus tachycardia and hypertension: Currently blood pressure is in normal range. Hold antihypertensive medication. On Cardizem 240 mg daily, resume fromtomorrow. Patient monitors heart rate at home and baseline is 80s to 90/min. 06/09: Patient is still has mild sinus tachycardia, heart rate fluctuates -169/min. It is probably due to infection on baseline increased heart rate. 5. Bedbound, physical debility, RLE amputation, indwelling Wade catheter, colostomy: Nursing care. Patient mother is a primary care. 6. Hyperglycemia at 216: Accu-Chek before meals and at bedtime with Humalog sliding scale coverage and hypoglycemia protocol. A1c ordered for tomorrow a.m. No history of diabetes mellitus 06/09: Hyperglycemia, glucose 194. A1c 5.4%. Diabetes mellitus ruled out. Living will/advanced directive/end of life care: Patient does not have living will or advanced directive. Patient does not endanger power of brand executive for health but her mother is primary caregiver. After discussion of benefits/risks procedures involved with full code, DNR CC arrest and DNR CC, the patient optedfor full code. Patient's mother does want artificial life support including intubation, tube feed, ventilator and/chest compression, central venous catheter, vasopressor andDC shock if needed Total time spent in [id number] encounter in discussion of advanced directive 17 minutes. Microbiology Past 72 Hours 06/07/25 11:39 Blood Culture (Wb) - Right Hand Blood Culture - Preliminary No growth in 48 hours. 06/07/25 10:30 Blood Culture (Wb) - Anticubital Right Blood Culture - Preliminary No growth in 48 hours. 06/07/25 10:50 Urine Catheter - Catheter Urine Culture - Preliminary Proteus vulgaris 06/07/25 10:50 Urine Catheter - Wade Legionella Antigen - Final 06/07/25 10:50 Urine Catheter - Wade Streptococcus pneumoniae Antigen (M - Final 06/07/25 12:43 Mucosa - Nose SARS-CoV-2, Influenza & RSV (PCR) - Final Laboratory Results 06/08/25 16:52: POC Glucose 104 06/08/25 21:26: POC Glucose 170 H 06/09/25 04:22: WBC 10.5, RBC 4.21 L, Hgb 11.8 L, Hct 36.2 L, MCV 86.0, MCH 28.0, MCHC 32.6, RDW Std Deviation 42.2, RDW Coeff of Leroy 13.5, Plt Count 221, MPV 10.0, Immature Gran % (Auto) 0.600, Neut % (Auto) 70.7 H, Lymph % (Auto) 13.8 L, Hamblen % (Auto) 12.5 H, Eos % (Auto) 2.0, Baso % (Auto) 0.4, Absolute Neuts (auto) 7.4, Absolute Lymphs (auto) 1.44, Nucleated RBC % 0, Sodium 138, Potassium 3.6, Chloride 104, Carbon Dioxide 23.0, Anion Gap 11, BUN 12, Creatinine 0.64 L, Estim Creat Clear Calc 128.25, Est GFR (MDRD) Non-Af 133, BUN/Creatinine Ratio 18.1, Glucose 194 H, Hemoglobin A1c 5.4, Calcium 8.7 06/09/25 06:00: POC Glucose 192 H 06/09/25 11:36: POC Glucose [address] abdomen pelvis 1. 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 Skin thickening posterior low back and overlying the right buttock region. No definite ulcer. Early stage decubitus ulcer is potentially present. Recommend direct inspection. 2. Compressive atelectasis of the lung bases related to curvature. 3. BRIM SHAPER shunt, cholecystectomy, appendectomy, percutaneous gastrostomy, right lower quadrant colostomy, percutaneous cystostomy. 4. Staghorn calculi right kidney. No collecting system dilation. Obstructing UPJ calculus on the left. The calculus is large. Urology consultation suggested. 5. Bladder stones. Charges/Coding Addendum Addendum: Total time of the visit including total time spent in counseling or coordinationof care, (more than 50% of the total time, spent in obtaining medical information from nurses and other ancillary care providers ,explaining to the patient about labs, imaging, diagnosis and management of active complex medical conditions), discussion with ID and urologist, discussion with transfer coordination and F physicians, review of labs and imaging is 45 minutes. Visit Charges Inpatient E&M: 97491 Subs Hosp L3 06/09/25 1559 <Electronically signed by Gregorio Qiu MD> Cosigner Signature (if applicable): CC: ~ Signed ADDENDUM by Dr. Gregorio Qiu MD on 06/09/25 at 1627 Addendum I talked to Dr. Hoffman, urologist on-call from [facility]. She attempted the patient but she was opinion that the radiologist cannot put a stent. I said and confirmed with Dr. Rooney that he has ureteric and bladder anatomy is difficult because of spina bifid and therefore patient is not good for ureteric stenting. We do not have here to put bilateral nephrostomy therefore transfer is indicated. Patient will [facility]. Pending transfer there depending on bed availability. 06/09/25 1627<Electronically signed by Gregorio Qiu MD> Cosigner Signature (if applicable): cc: ~* Signed [facility] Work Phone: 1(523) 565-410008-18-2025 Consult note Author Agusto Rooney [facility] Note Date/Time June 09, 2025 3: 11pm [facility] Medical Records Department [address] [place] [address] Consultation 06/09/25 1508 MR#: [id number] Acct: [id number] Name: MARCOS AGUIRRE Rep #:[id number] : 1995 29 From: Agusto Rooney MD PCP: Dr. Nikita Gramajo, DO Status:ADM IN Location: [place] [address] HPI Consult Data Date of Consult: 06/09/25 HPI Narrative Reason for Consultation: Complex infected stones HPI Narrative: MARCOS AGUIRRE, is a 29 M who presents To the hospital with a fever and chills he has spina bifida very distorted anatomy and has a suprapubic catheter in place he does a very large stones within the bladder next to the suprapubic catheter and he also has bilateral kidney stones in the left side he has a large UPJ stone that causing obstruction of the left kidney in the right side he has two large staghorn calculus. Given the complexity of the patient's anatomy we do nothave interventional radiology available here at [facility] that can manage this complexity of care, therefore he will need to be transferred to a tertiary care center to manage the stones as both stones in the kidneys will be needed to access with a percutaneous approach and with current radiology here at [facility] wouldnot be capable of placing appropriate access to both these kidney stones patientwill need to be transferred to tertiary care center to manage these kidney stones, also needs to have bladder stone removed, call me w questions.. 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 Chronic respiratory failure with hypoxia and hypercapnia Neuromuscular respiratory weakness Chronic respiratory failure requiring treatment with nocturnal BPAP by mask Home Medications ?Medication ?Instructions ?Recorded ?Last Taken ?Type nut.tx impaired digestive See Rx Instructions feeding tube 12/01/22 Unknown History fxn-fiber 0.07 gram-1.5 kcal/mL .HS feed oral liquid (Vital Peptide 1.5 Shine) cholecalciferol (vitamin D3) 10 10 mcg PO QDAY 5 06/06/25 History mcg (400 unit) chewable tablet diltiazem HCl 240 mg capsule,24 240 mg PO QDAY 5 06/06/25 History hr,extended release acetaminophen 325 mg capsule 325 mg PO Q6H PRN fever o r pain 06/07/25 06/07/25 History diphenhydramine HCl 25 mg tablet 25 mg PO QHS PRN tami rgies 06/08/25 Unknown History (Allergy (diphenhydramine)) Allergy/AdvReac Type Severity Reaction Status Date / Time bacitracin Allergy Mild unknown Verified 06/07/25 10:38 latex Allergy Unknown Verified 06/07/25 10:38 levofloxacin (Levofloxacin) Allergy Rash Verified 06/07/25 10:38 sulfamethoxazole (From Allergy Rash Verified 06/07/25 10:38 Bactrim) trimethoprim (From Bactrim) Allergy Rash Verified 06/07/25 10:38 Social History Smoking Status: Never smoker Lab / Micro Data 06/09/25 04:22 06/09/25 04:22 Labs: Laboratory Results - last 24 hr 06/08/25 16:52: POC Glucose 104 06/08/25 21:26: POC Glucose 170 H 06/09/25 04:22: WBC 10.5, RBC 4.21 L, Hgb 11.8 L, Hct 36.2 L, MCV 86.0, MCH 28.0, MCHC 32.6, RDW Std Deviation 42.2, RDW Coeff of Leory 13.5, Plt Count 221, MPV 10.0, Immature Gran % (Auto) 0.600, Neut % (Auto) 70.7 H, Lymph % (Auto) 13.8 L, Hamblen % (Auto) 12.5 H, Eos % (Auto) 2.0, Baso % (Auto) 0.4, Absolute Neuts (auto) 7.4, Absolute Lymphs (auto) 1.44, Nucleated RBC % 0, Sodium 138, Potassium 3.6, Chloride 104, Carbon Dioxide 23.0, Anion Gap 11, BUN 12, Creatinine 0.64 L, Estim Creat Clear Calc 128.25, Est GFR (MDRD) Non-Af 133, BUN/Creatinine Ratio 18.1, Glucose 194 H, Hemoglobin A1c 5.4, Calcium 8.7 06/09/25 06:00: POC Glucose 192 H 06/09/25 11:36: POC Glucose 119 H Micro: Microbiology 06/07/25 11:39 Blood Culture (Wb) - Right Hand Blood Culture - Preliminary No growth in 48 hours. 06/07/25 10:30 Blood Culture (Wb) - Anticubital Right Blood Culture - Preliminary No growth in 48 hours. 06/07/25 10:50 Urine Catheter - Catheter Urine Culture - Preliminary Proteus vulgaris Imaging Radiology Impression Abdomen/Pelvis CT 06/09/25 10:25 IMPRESSION: 1. 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 Skin thickening posterior low back and overlying the right buttock region. No definite ulcer. Early stage decubitus ulcer is potentially present. Recommend direct inspection. 2. Compressive atelectasis of the lung bases related to curvature. 3. BRIM SHAPER shunt, cholecystectomy, appendectomy, percutaneous gastrostomy, right lower quadrant colostomy, percutaneous cystostomy. 4. Staghorn calculi right kidney. No collecting system dilation. Obstructing UPJ calculus on the left. The calculus is large. Urology consultation suggested. 5. Bladder stones. Reading Location: [id number] 06/09/25 1511 <Electronically signed by Agusto Rooney MD> Cosigner Signature (if applicable): CC: Dr. Nikita Gramajo, ~ Signed [facility] Work Phone: 1(201) 748-135208-18-2025 Progress note [facility] Medical Records Department [address] [place] [id number] Progress Note - Hospitalist 06/09/25 1547 MR#: [id number] Acct: [id number] Name: MARCOS AGUIRRE Rep #:[id number] : 1995 29 From: Gregorio Russo PCP: Dr. Nikita Gramajo DO Status:ADM IN Location: [place] [address]- 1 Reason for Visit Chief Complaint: High grade fever 104.4 and low urine output. Objective Data Objective Data Vital Signs: Vital Signs Temp Pulse Resp BP Pulse Ox O2 Del Method O2 Flow Rate 100.4 F H 113 H 20 H 125/83 H 98 Bi-pap 3 06/09/25 14:10 06/09/25 14:10 06/09/25 14:10 06/09/25 14:10 06/09/25 14:10 06/09/25 14:10 06/09/25 14:10 Oxygen Flow Rate (L/min) 3 Oxygen Delivery Method Bi-pap Weight: 121 lb 7.595 oz Body Mass Index (BMI) 22.9 Intake & Output: Intake and Output for Last 24 Hours 06/07/25 06/08/25 06/09/25 23:59 23:59 23:59 Intake Total 3560 / 3560 450 / 450 400 / 400 Output Total 550 / 800 1425 / 1550 675 / 675 Balance 3010 / 2760 -975 / -1100 -275 / -275 Lab / Micro Data 06/09/25 04:22 06/09/25 04:22 Labs: Laboratory Results - last 24 hr 06/08/25 16:52: POC Glucose 104 06/08/25 21:26: POC Glucose 170 H 06/09/25 04:22: WBC 10.5, RBC 4.21 L, Hgb 11.8 L, Hct 36.2 L, MCV 86.0, MCH 28.0, MCHC 32.6, RDW Std Deviation 42.2, RDW Coeff of Leroy 13.5, Plt Count 221, MPV 10.0, Immature Gran % (Auto) 0.600, Neut% (Auto) 70.7 H, Lymph % (Auto) 13.8 L, Hamblen % (Auto) 12.5 H, Eos % (Auto) 2.0, Baso % (Auto) 0.4, Absolute Neuts (auto) 7.4, Absolute Lymphs (auto) 1.44, Nucleated RBC % 0, Sodium 138, Potassium 3.6, Chloride 104, Carbon Dioxide 23.0, Anion Gap 11, BUN 12, Creatinine 0.64 L, Estim Creat Clear [id number], Est GFR (MDRD) Non-Af 133, BUN/Creatinine Ratio 18.1, Glucose 194 H, Hemoglobin A1c 5.4, Calcium 8.7 06/09/25 06:00: POC Glucose 192 H 06/09/25 11:36: POC Glucose 119 H Micro: Microbiology 06/07/25 11:39 Blood Culture (Wb) - Right Hand Blood Culture - Preliminary No growth in 48 hours. 06/07/25 10:30 Blood Culture (Wb) - Anticubital Right Blood Culture - Preliminary No growth in 48 hours. 06/07/25 10:50 Urine Catheter - Catheter Urine Culture - Preliminary Proteus vulgaris 06/07/25 10:50 Urine Catheter - Wade Legionella Antigen - Final 06/07/25 10:50 Urine Catheter - Wade Streptococcus pneumoniae Antigen (M - Final 06/07/25 12:43 Mucosa - Nose SARS-CoV-2, Influenza & RSV (PCR) - Final Radiography Diagnostic Testing: Radiology Impression Abdomen/Pelvis CT 06/09/25 10:25 IMPRESSION: 1. 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 Skin thickening posterior low back and overlying the right buttock region. No definite ulcer. Early stage decubitus ulcer is potentially present. Recommend direct inspection. 2. Compressive atelectasis of the lung bases related to curvature. 3. BRIM SHAPER shunt, cholecystectomy, appendectomy, percutaneous gastrostomy, right lower quadrant colostomy, percutaneous cystostomy. 4. Staghorn calculi right kidney. No collecting system dilation. Obstructing UPJ calculus on the left. The calculus is large. Urology consultation suggested. 5. Bladder stones. Reading Location: [facility] Physical Exam Narrative Seen and examined Patient intermittently spikes fever. He was afebrile in the morning and yesterday evening but he had a temperature 100.4 F about [address] abdomenwas done. ID consult. Urology consult. As per the mother he had passed a stone/stone debris couple days ago before admission. Physical exam General: Alert, Oriented x3, Cooperative. Short stature. BMI 21.1 kg/m?, 5'1 height HEENT: Atraumatic, PERRLA, EOMI, Normocephalic. Oral: Oral mucosa dry. No Gingival or Mucosal Lesions/ Ulcerations Neck: Very short and wide neck. Supple, No JVD, Negative Carotid Bruits Chest wall/Lungs: Surgical scar on the back, kyphoscoliosis. Air entry diminished in bilateral lungbases. No crepitation/rhonchi Cardiovascular: Sinus tachycardia, normal S1,S2, No M/G/R Abdomen: Bowel Sounds sluggish, soft, early colostomy. No rigidity. No distention : Indwelling catheter from umbilicus draining bladder. No renal angle tenderness. No suprapubic tenderness. 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 No Tenderness to Palpation of Joints or Extremities Spine: Thoracic surgical scar cruz. Contracture in the back with, spinal deformity Neurological: No sensation below mid thoracic level. Complete neuroexam unobtainable with spina bifid deformity. Psych/Mental Status: Flat affect Assessment & Plan Assessment/Plan (1) Complicated urinary tract infection: PLAN: Plan This 29-year-old gentleman is being admitted high-grade fever, decreased urine output with suspicion of complicated UTI 1. SIRS criteria due to complicated UTI: Patient does not have features/signs and symptoms of sepsis at the time of admission. Patient has tachycardia, high- grade fever and leukocytosis IV fluid 1600mL as per 30 mL/kg body weight. Previous urine culture grew Pseudomonas therefore started on IV cefepime 2 g every 12 hourly. Lactic acid normal. UA shows positive nitrite, LE 500, WBC 5200 cells, RBC 5-10 cells, 2+ bacteria. Squamous epithelial 0-5 cells. 06/08: Patient had fever 102.5 Fahrenheit. Discussed with ID. Patient on IV cefepime. ID consult tomorrow. Urine culture shows GNR 80,000?100,000 colonies. Blood culture pending. Repeat blood culture ordered. Urinary antigens, MRSA nasal screen are negative. Triple PCR for SARS-CoV-2, flu and RSV are negative 06/09: Patient was afebrile until 2 PM. Temperature 100.4 ?F. Leukocytosis resolved. Has neutrophilia. Electrolytes within normal limit. Kidney functioncreatinine normal. In the morning he had CT abdomen/pelvis which reported staghorn calculi right kidney, no collecting system dilatation. Left UPJ calculus large about 10.7 mm with left hydronephrosis. Percutaneous cystostomy tube, large calculi, 2in number 3.6 cm and 3.4 cm. As per the mother it is notunusual for the patient to have kidney or bladder stones and it was removed by the [facility] urologist in the past. Patient was seen by ID who consulted urologist. Dr. Rooney called me that he needs bilateral nephrostomy tube and transfer to tertiary [facility]. Afterwards, I talked to patient's mother who who is to transfer to [facility] as his urologist is Dr. Kelsie Giraldo who had taken care of him in the past.I called [facility] transferline and gave the initial clinical information in details. Waiting for the callback. Patient is going Proteus vulgaris, 80,000 -100,000 colonies. With patient is spiking grade fever, antibiotic was changed from cefepime to Zosyn yesterday. Seen by ID who recommended to continueIV Zosyn even though he wrotein the note that he was admitted on meropenem and to continue it. I called himand he said to continue Zosyn. 2. Chronic hypoxic and hypercarbic respiratory failure: Currently patient does not require oxygen. Pulse ox 95% on room air. Follows in pulmonary clinic, last visit on 06/05. Patient has noninvasive ventilator. 3. 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 4. Sinus tachycardia and hypertension: Currently blood pressure is in normal range. Hold antihypertensive medication. On Cardizem 240 mg daily, resume fromtomorrow. Patient monitors heart rate at home and baseline is 80s to 90/min. 06/09: Patient is still has mild sinus tachycardia, heart rate fluctuates [id number]/min. It is probably due to infection on baseline increased heart rate. 5. Bedbound, physical debility, RLE amputation, indwelling Wade catheter, colostomy: Nursing care.Patient mother is a primary care. 6. Hyperglycemia at 216: Accu-Chek before meals and at bedtime with Humalog sliding scale coverage and hypoglycemia protocol. A1c ordered for tomorrow a.m. No history of diabetes mellitus 06/09: Hyperglycemia, glucose 194. A1c 5.4%. Diabetes mellitus ruled out. Living will/advanced directive/end of life care: Patient does not have living will or advanced directive. Patient does not endanger power of brand executive for health but her mother is primary caregiver. After discussion of benefits/risks procedures involved with full code, DNR CC arrest and DNR CC, the patient optedfor full code. Patient's mother does want artificial life support including intubation, tube feed, ventilator and/chest compression, central venous catheter, vasopressor andDC shock if needed Total time spent in atri-zn-nwsl encounter in discussion of advanced directive 17 minutes. Microbiology Past 72 Hours 06/07/25 11:39 Blood Culture (Wb) - Right Hand Blood Culture - Preliminary No growth in 48 hours. 06/07/25 10:30 Blood Culture (Wb) - Anticubital Right Blood Culture - Preliminary No growth in 48 hours. 06/07/25 10:50 Urine Catheter - Catheter Urine Culture - Preliminary Proteus vulgaris 06/07/25 10:50 Urine Catheter - Wade Legionella Antigen - Final 06/07/25 10:50 Urine Catheter - Wade Streptococcus pneumoniae Antigen (M - Final 06/07/25 12:43 Mucosa - Nose SARS-CoV-2, Influenza & RSV (PCR) - Final Laboratory Results 06/08/25 16:52: POC Glucose 104 06/08/25 21:26: POC Glucose 170 H 06/09/25 04:22: WBC 10.5, RBC 4.21 L, Hgb 11.8 L, Hct 36.2 L, MCV 86.0, MCH 28.0, MCHC 32.6, RDW Std Deviation 42.2, RDW Coeff of Leroy 13.5, Plt Count 221, MPV 10.0, Immature Gran % (Auto) 0.600, Neut% (Auto) 70.7 H, Lymph % (Auto) 13.8 L, Hamblen % (Auto) 12.5 H, Eos % (Auto) 2.0, Baso % (Auto) 0.4, Absolute Neuts (auto) 7.4, Absolute Lymphs (auto) 1.44, Nucleated RBC % 0, Sodium 138, Potassium 3.6, Chloride 104, Carbon Dioxide 23.0, Anion Gap 11, BUN 12, Creatinine 0.64 L, Estim Creat Clear Njuv088.25, Est GFR (MDRD) Non-Af 133, BUN/Creatinine Ratio 18.1, Glucose 194 H, Hemoglobin A1c 5.4, Calcium 8.7 06/09/25 06:00: POC Glucose 192 H 06/09/25 11:36: POC Glucose [address] abdomen pelvis 1. 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 Skin thickening posterior low back and overlying the right buttock region. No definite ulcer. Early stage decubitus ulcer is potentially present. Recommend direct inspection. 2. Compressive atelectasis of the lung bases related to curvature. 3. BRIM SHAPER shunt, cholecystectomy, appendectomy, percutaneous gastrostomy, right lower quadrant colostomy, percutaneous cystostomy. 4. Staghorn calculi right kidney. No collecting system dilation. Obstructing UPJ calculus on the left. The calculus is large. Urology consultation suggested. 5. Bladder stones. Charges/Coding Addendum Addendum: Total time of the visit including total time spent in counseling or coordinationof care, (more than50% of the total time, spent in obtaining medical information from nurses and other ancillary care providers ,explaining to the patient about labs, imaging, diagnosis and management of active complexmedical conditions), discussion with ID and urologist, discussion with transfer coordination and [facility] physicians, review of labs and imaging is 45 minutes. Visit Charges Inpatient E&M: 87704 Subs Hosp L3 06/09/25 1559 Cosigner Signature (if applicable): CC: ~ Signed ADDENDUM by Dr. Gregorio Qiu MD on 06/09/25 at 1627 Addendum I talked to Dr. Hoffman, urologist on-call from [facility]. She attempted the patient but she was opinion that the radiologist cannot put a stent. I said and confirmed with Dr. Rooney that he has ureteric and bladder anatomy is difficult because of spina bifid and therefore patient is not good for ureteric stenting. We do not have here to put bilateral nephrostomy therefore transfer is indicated. Patient will [facility]. Pending transfer there depending on bed availability. 06/09/25 1627 Cosigner Signature (if applicable): cc: ~* Signed [facility]08-18-2025 Consult note [facility] Medical Records Department [address] [place] [address] Consultation 06/09/25 1508 MR#: [id number] Acct: [id number] Name: MARCOS AGUIRER Rep #:[id number] : 1995 29 From: Agusto Rooney MD PCP: Dr. Nikita Gramajo, DO Status:ADM IN Location: [place] [id number] HPI Consult Data Date of Consult: 06/09/25 HPI Narrative Reason for Consultation: Complex infected stones HPI Narrative: MARCOS AGUIRRE, is a 29 M who presents To the hospital with a fever and chills he has spina bifida very distorted anatomy and has a suprapubic catheter in place he does a very large stones within the bladder next to the suprapubic catheter and he also has bilateral kidney stones in the left side he has a large UPJ stone that causing obstruction of the left kidney in the right side he has two large staghorn calculus. Given the complexity of the patient's anatomy we do nothave interventional radiology available here at [facility] that can manage this complexity of care, therefore he will need to be transferred to a tertiary care center to manage the stones as both stones in the kidneys will be needed to access with a percutaneous approach and with current radiology here at [facility] wouldnot be capable of placing appropriate access to both these kidney stones patientwill need to be transferred to tertiary care center to manage these kidney stones, also needs to have bladder stone removed, call me w questions.. 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 Chronic respiratory failure with hypoxia and hypercapnia Neuromuscular respiratory weakness Chronic respiratory failure requiring treatment with nocturnal BPAP by mask Home Medications ?Medication ?Instructions ?Recorded ?Last Taken ?Type nut.tx impaired digestive See Rx Instructions feeding tube 12/01/22 Unknown History fxn-fiber 0.07 gram-1.5 kcal/mL .HS feed oral liquid (Vital Peptide 1.5 Shine) cholecalciferol (vitamin D3) 10 10 mcg PO QDAY 5 06/06/25 History mcg (400 unit) chewable tablet diltiazem HCl 240 mg capsule,24 240 mg PO QDAY 5 06/06/25 History hr,extended release acetaminophen 325 mg capsule 325 mg PO Q6H PRN fever o r pain 06/07/25 06/07/25 History diphenhydramine HCl 25 mg tablet 25 mg PO QHS PRN tami rgies 06/08/25 Unknown History (Allergy (diphenhydramine)) Allergy/AdvReac Type Severity Reaction Status Date / Time bacitracin Allergy Mild unknown Verified 06/07/25 10:38 latex Allergy Unknown Verified 06/07/25 10:38 levofloxacin (Levofloxacin) Allergy Rash Verified 06/07/25 10:38 sulfamethoxazole (From Allergy Rash Verified 06/07/25 10:38 Bactrim) trimethoprim (From Bactrim) Allergy Rash Verified 06/07/25 10:38 Social History Smoking Status: Never smoker Lab / Micro Data 06/09/25 04:22 06/09/25 04:22 Labs: Laboratory Results - last 24 hr 06/08/25 16:52: POC Glucose 104 06/08/25 21:26: POC Glucose 170 H 06/09/25 04:22: WBC 10.5, RBC 4.21 L, Hgb 11.8 L, Hct 36.2 L, MCV 86.0, MCH 28.0, MCHC 32.6, RDW Std Deviation 42.2, RDW Coeff of Leroy 13.5, Plt Count 221, MPV 10.0, Immature Gran % (Auto) 0.600, Neut% (Auto) 70.7 H, Lymph % (Auto) 13.8 L, Hamblen % (Auto) 12.5 H, Eos % (Auto) 2.0, Baso % (Auto) 0.4, Absolute Neuts (auto) 7.4, Absolute Lymphs (auto) 1.44, Nucleated RBC % 0, Sodium 138, Potassium 3.6, Chloride 104, Carbon Dioxide 23.0, Anion Gap 11, BUN 12, Creatinine 0.64 L, Estim Creat Clear Brjx402.25, Est GFR (MDRD) Non-Af 133, BUN/Creatinine Ratio 18.1, Glucose 194 H, Hemoglobin A1c 5.4, Calcium 8.7 06/09/25 06:00: POC Glucose 192 H 06/09/25 11:36: POC Glucose 119 H Micro: Microbiology 06/07/25 11:39 Blood Culture (Wb) - Right Hand Blood Culture - Preliminary No growth in 48 hours. 06/07/25 10:30 Blood Culture (Wb) - Anticubital Right Blood Culture - Preliminary No growth in 48 hours. 06/07/25 10:50 Urine Catheter - Catheter Urine Culture - Preliminary Proteus vulgaris Imaging Radiology Impression Abdomen/Pelvis CT 06/09/25 10:25 IMPRESSION: 1. 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 Skin thickening posterior low back and overlying the right buttock region. No definite ulcer. Early stage decubitus ulcer is potentially present. Recommend direct inspection. 2. Compressive atelectasis of the lung bases related to curvature. 3. BRIM SHAPER shunt, cholecystectomy, appendectomy, percutaneous gastrostomy, right lower quadrant colostomy, percutaneous cystostomy. 4. Staghorn calculi right kidney. No collecting system dilation. Obstructing UPJ calculus on the left. The calculus is large. Urology consultation suggested. 5. Bladder stones. Reading Location: [id number] 06/09/25 1511 Cosigner Signature (if applicable): CC: Dr. Nikita Gramajo, DO~ Signed [facility]08-18-2025 [facility] Medical Records Department [address] [place] [address] Consultation 06/09/25 1508 MR#: [id number] Acct: [id number] Name: MARCOS AGUIRRE Rep #: [id number] : 1995 29 From: Agusto Rooney MD PCP: Dr. Nikita Gramajo, DO Status:ADM IN Location: [place] [id number] HPI Consult Data Date of Consult: 06/09/25 HPI Narrative Reason for Consultation: Complex infected stones HPI Narrative: MARCOS AGUIRRE, is a 29 M who presents To the hospital with a fever and chills he has spina bifida very distorted anatomy and has a suprapubic catheter in place he does a very large stones within the bladder next to the suprapubic catheter and he also has bilateral kidney stones in the left side he has a large UPJ stone that causing obstruction of the left kidney in the right side he has two large staghorn calculus. Given the complexity of the patient's anatomy we do not have interventional radiology available here at [facility] that can manage this complexity of care, therefore he will need to be transferred to a tertiary care center to manage the stones as both stones in the kidneys will be needed to access with a percutaneous approach and with current radiology here at [facility] would not be capable of placing appropriate access to both these kidney stones patient will need to be transferred to tertiary care center to manage these kidney stones, also needs to have bladder stone removed, call me w questions.. 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 Chronic respiratory failure with hypoxia and hypercapnia Neuromuscular respiratory weakness Chronic respiratory failure requiring treatment with nocturnal BPAP by mask Home Medications ???Medication ???Instructions ???Recorded ???Last Taken ???Type nut.tx impaired digestive See Rx Instructions feeding tube 0 12/01/22 Unknown History fxn-fiber 0.07 gram-1.5 kcal/mL .HS feed oral liquid (Vital Peptide 1.5 Shine) cholecalciferol (vitamin D3) 10 10 mcg PO QDAY 02/27/25 06/06/25 H istory mcg (400 unit) chewable tablet diltiazem HCl 240 mg capsule,24 240 mg PO QDAY 02/27/25 06/06/25 H istory hr,extended release acetaminophen 325 mg capsule 325 mg PO Q6H PRN fever or pain 06/07/25 History diphenhydramine HCl 25 mg tablet 25 mg PO QHS PRN allergies 5 Unknown History (Allergy (diphenhydramine)) Allergy/AdvReac Type Severity Reaction Status Date / Time bacitracin Allergy Mild unknown Verified 06/07/25 10:38 latex Allergy Unknown Verified 06/07/25 10:38 levofloxacin (Levofloxacin) Allergy Rash Verified 06/07/25 10:38 sulfamethoxazole (From Allergy Rash Verified 06/07/25 10:38 Bactrim) trimethoprim (From Bactrim) Allergy Rash Verified 06/07/25 10:38 Social History Smoking Status: Never smoker Lab / Micro Data 06/09/25 04:22 06/09/25 04:22 Labs: Laboratory Results - last 24 hr 06/08/25 16:52: POC Glucose 104 06/08/25 21:26: POC Glucose 170 H 06/09/25 04:22: WBC 10.5, RBC 4.21 L, Hgb 11.8 L, Hct 36.2 L, MCV 86.0, MCH 28.0, MCHC 32.6, RDW Std Deviation 42.2, RDW Coeff of Leroy 13.5, Plt Count 221, MPV 10.0, Immature Gran % (Auto) 0.600, Neut % (Auto) 70.7 H, Lymph % (Auto) 13.8 L, Hamblen % (Auto) 12.5 H, Eos % (Auto) 2.0, Baso % (Auto) 0.4, Absolute Neuts (auto) 7.4, Absolute Lymphs (auto) 1.44, Nucleated RBC % 0, Sodium 138, Potassium 3.6, Chloride 104, Carbon Dioxide 23.0, Anion Gap 11, BUN 12, Creatinine 0.64 L, Estim Creat Clear Calc 128.25, Est GFR (MDRD) Non-Af 133, BUN/Creatinine Ratio 18.1, Glucose 194 H, Hemoglobin A1c 5.4, Calcium 8.7 08/18/25 06:00: POC Glucose 192 H 06/09/25 11:36: POC Glucose 119 H Micro: Microbiology 06/07/25 11:39 Blood Culture (Wb) - Right Hand Blood Culture - Preliminary No growth in 48 hours. 06/07/25 10:30 Blood Culture (Wb) - Anticubital Right Blood Culture - Preliminary No growth in 48 hours. 06/07/25 10:50 Urine Catheter - Catheter Urine Culture - Preliminary Proteus vulgaris Imaging Radiology Impression Abdomen/Pelvis CT 06/09/25 10:25 IMPRESSION: 1. 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 Skin thickening posterior low back and overlying the right buttock region. No definite ulcer. Early stage decubitus ulcer is potentially present. Recommend direct inspection. 2. Compressive atelectasis of the lung bases related to curvature. 3. BRIM SHAPER shunt, cholecystectomy, appendectomy, percutaneous gastrostomy, right lower quadrant colostomy, percutaneous cystostomy. 4. Staghorn calculi right kidney. No collecting system dilation. Obstructing UPJ calculus on the left. The calculus is large. Urology consultation suggested. 5. Bladder stones. Electronically Si (more content not included)...[facility] 06-09-2025 Radiology Diagnostic study note [facility] Imaging Services [address] [place] [address] Abdomen/Pelvis without Cont MR#: [id number] Acct: [id number] Name: MARCOS AGUIRRE Rep #: [id number] : 1995 M 29 From: Amy Whitehead MD PCP: Dr. Nikita Gramajo, DO Status: ADM IN Study:Abdomen/Pelvis without Cont Date of Exa m: 06/09/25 Exam# [id number] Ordering Dr: Arianna Qiu MD PROCEDURE: ABDOMEN/PELVIS WITHOUT CONT 06/09/2025 REASON FOR EXAM: COMPLICATED UTI, STONE TECHNIQUE: ABDOMEN/PELVIS WITHOUT CONT Noncontrast technique limits evaluation of the abdominal and pelvic viscera. Coronal and Sagittal reconstruction series were provided. One or more dose reduction techniques were used (e.g., Automated exposure control, adjustment of the mA and/or kV according to patient size, use of iterative reconstruction technique). RADIATION DOSE SUMMARY: CTDlvol: 14 mGy DLP: 610 mGycm COMPARISON: None FINDINGS: Lung bases: Subsegmental atelectasis of the lung bases, [id number] largely related to patient's rotatory curvature of the spine. Liver: Grossly normal. Gallbladder: Cholecystectomy Spleen: Normal Pancreas: Normal Adrenals: Normal Kidneys: Left hydronephrosis. Punctate calculus in the renal pelvis just proximal to a larger obstructing calculus measuring 10.7 x 8.6 x 8.6 mm. Right mid to upper pole staghorn calculus is 21 x 13 x 12 mm. Another at the mid to lower pole is 18 x 13 x 20 mm. Bladder: A percutaneous cystostomy tube is in place. The bladder is empty except for two large calculi; one measures 36 x 24 x 21 mm, and the other is 34 by 15 x 26 mm. Reproductive Organs: Normal male. Bowel: The small caliber percutaneous gastrostomy tube near the antrum is in place. The stomach is otherwise normal. Small bowel is normal caliber. A colostomy is present in the right lower quadrant. High density is seen in the rectum. Appendix: Appendectomy Lymph nodes: None appear enlarged. Vasculature: Normal caliber Peritoneum / Retroperitoneum: BRIM SHAPER shunt tubing is seen along the left chest coiled in the right upper quadrant. Bones: Curvature spine with rotatory component directed to the right. Posteriorfusion thoracolumbarspine with pedicle screws and rods on the right. 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 Mild thickening of the soft tissues overlying the buttock. No definite ulcer. CT/Abdomen/Pelvis without Cont IMPRESSION: 1. 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 Skin thickening posterior low back and overlying the right buttock region. No definite ulcer. Early stage decubitus ulcer is potentially present. Recommend direct inspection. 2. Compressive atelectasis of the lung bases related to curvature. 3. BRIM SHAPER shunt, cholecystectomy, appendectomy, percutaneous gastrostomy, right lower quadrant colostomy, percutaneous cystostomy. 4. Staghorn calculi right kidney. No collecting system dilation. Obstructing UPJ calculus on the left. The calculus is large. Urology consultation suggested. 5. Bladder stones. Reading Location: [id number] CC: Dr. Nikita Gramajo, DO; Dr. Gregorio Qiu MD ~ Quality Tester: Signed [facility]08-17-2025 Progress note Author Gregorio Qiu [facility] Note Date/Time June 08, 2025 1: 38pm [facility] Medical Records Department [address] [place] [address] Progress Note - Hospitalist 06/08/25 0837 MR#: [id number] Acct: [id number] Name: MARCOS AGUIRRE Rep #:[id number] : 1995 29 From: Gregorio Russo PCP: Dr. Nikita Gramajo DO Status:ADM IN Location: [place] [address] Reason for Visit Chief Complaint: High grade fever 104.4 and low urine output. Objective Data Objective Data Vital Signs: Vital Signs Temp Pulse Resp BP Pulse Ox O2 Del Method O2 Flow Rate 98.8 F 117 H 16 142/90 H 100 Bi-pap 3 06/08/25 06:50 06/08/25 08:14 06/08/25 08:14 06/08/25 04:50 06/08/25 04:50 06/08/25 04:50 06/08/25 03:41 Oxygen Flow Rate (L/min) 3 Oxygen Delivery Method Bi-pap Weight: 116 lb 9.992 oz Body Mass Index (BMI) 22.0 Intake & Output: Intake and Output for Last 24 Hours 06/06/25 06/07/25 06/08/25 23:59 23:59 23:59 Intake Total 3560 / 3560 Output Total 550 / 800 675 / 675 Balance 3010 / 2760 -675 / -675 Lab / Micro Data 06/08/25 05:44 06/08/25 05:44 Labs: Laboratory Results - last 24 hr 06/07/25 10:30: WBC 19.4 H, RBC 4.98, Hgb 14.2, Hct 41.8, MCV 83.9, MCH 28.5, MCHC 34.0, RDW Std Deviation 40.2, RDW Coeff of Leroy 13.1, Plt Count 211, MPV 9.2, Immature Gran % (Auto) 0.600, Neut % (Auto) 86.1 H, Lymph % (Auto) 4.3 L, Hamblen % (Auto) 8.8, Eos % (Auto) 0.0, Baso % (Auto) 0.2, Absolute Neuts (auto) 16.7 H, Absolute Lymphs (auto) 0.83, Nucleated RBC % 0, Differential Comment SCANNED, Sodium 133, Potassium 3.5, Chloride 95 L, Carbon Dioxide 23.7, Anion Gap 14, BUN 13, Creatinine 0.83, Estim Creat Clear Calc 97.19, Est GFR (MDRD) Non-Af 123, BUN/Creatinine Ratio 15.7, Glucose 134 H, Lactic Acid < 1.0, Calcium9.5, Magnesium 2.1, Total Bilirubin 0.78, AST 20, ALT 35, Alkaline Phosphatase 121, Total Creatine Kinase 96, Total Protein 8.0, Albumin 3.9, Globulin 4.1, Albumin/Globulin Ratio 1.0 06/07/25 10:50: Urine Color Yellow, Urine Clarity Cloudy, Urine pH 8.0, Ur Specific [place] 1.010, Urine Protein 100 H, Urine Glucose (UA) Normal, Urine Ketones 15 H, Urine Occult Blood 250 H, Urine Nitrite Positive H, Urine Bilirubin Negative, Urine Urobilinogen Normal, Ur Leukocyte Esterase 500 H, Urine RBC 5-10 SEEN, Urine WBC 50-100 SEEN, Ur Squamous Epith Cells 0-5 SEEN, Urine Bacteria 2+, Urine Mucus 0 SEEN 06/07/25 14:20: PT 16.3 H, INR 1.3, APTT 37.7 H 06/07/25 15:10: MRSA (PCR) Negative 06/08/25 05:44: WBC 12.9 H, RBC 4.32 L, Hgb 12.1 L, Hct 36.6 L, MCV 84.7, MCH 28.0, MCHC 33.1, RDW Std Deviation 41.0, RDW Coeff of Leroy 13.1, Plt Count 209, MPV 9.6, Immature Gran % (Auto) 0.600, Neut % (Auto) 84.2 H, Lymph % (Auto) 6.3 L, Hamblen % (Auto) 8.5, Eos % (Auto) 0.2, Baso % (Auto) 0.2, Absolute Neuts (auto)10.9 H, Absolute Lymphs (auto) 0.81 L, Nucleated RBC % 0, Sodium 134, Potassium 3.5, Chloride 102, Carbon Dioxide 21.6, Anion Gap 11, BUN 9, Creatinine 0.61 L, Estim Creat Clear Calc 134.56, Est GFR (MDRD) Non-Af 135, BUN/Creatinine Ratio 15.5, Glucose 216 H, Calcium 8.8 Micro: Microbiology 06/07/25 10:50 Urine Catheter - Wade Legionella Antigen - Final 06/07/25 10:50 Urine Catheter - Wade Streptococcus pneumoniae Antigen (M - Final 06/07/25 12:43 Mucosa - Nose SARS-CoV-2, Influenza & RSV (PCR) - Final Physical Exam Narrative Seen and examined Patient again had fever Tmax 102.5 about 3:41 AM. Physical exam General: Alert, Oriented x3, Cooperative. Short stature. BMI 21.1 kg/m?, 5'1 height HEENT: Atraumatic, PERRLA, EOMI, Normocephalic. Oral: Oral mucosa dry. No Gingival or Mucosal Lesions/ Ulcerations Neck: Very short and wide neck. Supple, No JVD, Negative Carotid Bruits Chest wall/Lungs: Surgical scar on the back, kyphoscoliosis. Air entry diminished in bilateral lung bases. No crepitation/rhonchi Cardiovascular: Sinus tachycardia, normal S1,S2, No M/G/R Abdomen: Bowel Sounds sluggish, soft, early colostomy. No rigidity. No distention : Indwelling catheter from umbilicus draining bladder. No renal angle tenderness. No suprapubic tenderness. 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 No Tenderness to Palpation of Joints or Extremities Spine: Thoracic surgical scar cruz. Contracture in the back with, spinal deformity Neurological: No sensation below mid thoracic level. Complete neuroexam unobtainable with spina bifid deformity. Psych/Mental Status: Flat affect Assessment & Plan Assessment/Plan (1) Complicated urinary tract infection: PLAN: Plan This 29-year-old gentleman is being admitted high-grade fever, decreased urine output with suspicion of complicated UTI 1. SIRS criteria due to complicated UTI: Patient does not have features/signs and symptoms of sepsis at the time of admission. Patient has tachycardia, high-grade fever and leukocytosis IV fluid 1600 mL as per 30 mL/kg body weight. Previous urine culture grew Pseudomonas therefore started on IV cefepime 2 g every 12 hourly. Lactic acid normal. UA shows positive nitrite, LE 500, WBC 5200 cells, RBC 5-10 cells, 2+ bacteria. Squamous epithelial 0-5 cells. 06/08: Patient had fever 102.5 Fahrenheit. Discussed with ID. Patient on IV cefepime. ID consult tomorrow. Urine culture shows GNR 80,000?100,000 colonies. Blood culture pending. Repeat blood culture ordered. Urinary antigens, MRSA nasal screen are negative. Triple PCR for SARS-CoV-2, flu and RSV are negative 2. Chronic hypoxic and hypercarbic respiratory failure: Currently patient does not require oxygen. Pulse ox 95% on room air. Follows in pulmonary clinic, last visit on 06/05. Patient has noninvasive ventilator. 3. 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 4. Sinus tachycardia and hypertension: Currently blood pressure is in normal range. Hold antihypertensive medication. On Cardizem 240 mg daily, resume fromtomorrow. Patient monitors heart rate at home and baseline is 80s to 90/min. 5. Bedbound, physical debility, RLE amputation, indwelling Wade catheter, colostomy: Nursing care. Patient mother is a primary care. 6. Hyperglycemia at 216: Accu-Chek before meals and at bedtime with Humalog sliding scale coverage and hypoglycemia protocol. A1c ordered for tomorrow a.m. No history of diabetes mellitus Living will/advanced directive/end of life care: Patient does not have living will or advanced directive. Patient does not endanger power of brand executive for health but her mother is primary caregiver. After discussion of benefits/risks procedures involved with full code, DNR CC arrest and DNR CC, the patient optedfor full code. Patient's mother does want artificial life support including intubation, tube feed, ventilator and/chest compression, central venous catheter, vasopressor andDC shock if needed Total time spent in [id number] encounter in discussion of advanced directive 17 minutes. Microbiology Past 72 Hours 06/07/25 10:50 Urine Catheter - Catheter Urine Culture - Preliminary Gram negative susan 06/07/25 10:50 Urine Catheter - Wade Legionella Antigen - Final 06/07/25 10:50 Urine Catheter - Wade Streptococcus pneumoniae Antigen (M - Final 06/07/25 12:43 Mucosa - Nose SARS-CoV-2, Influenza & RSV (PCR) - Final Laboratory Results 06/07/25 10:30: Magnesium 2.1, Total Creatine Kinase 96 06/07/25 14:20: PT 16.3 H, INR 1.3, APTT 37.7 H 06/07/25 15:10: MRSA (PCR) Negative 06/08/25 05:44: WBC 12.9 H, RBC 4.32 L, Hgb 12.1 L, Hct 36.6 L, MCV 84.7, MCH 28.0, MCHC 33.1, RDW Std Deviation 41.0, RDW Coeff of Leroy 13.1, Plt Count 209, MPV 9.6, Immature Gran % (Auto) 0.600, Neut % (Auto) 84.2 H, Lymph % (Auto) 6.3 L, Hamblen % (Auto) 8.5, Eos % (Auto) 0.2, Baso % (Auto) 0.2, Absolute Neuts (auto)10.9 H, Absolute Lymphs (auto) 0.81 L, Nucleated RBC % 0, Sodium 134, Potassium 3.5, Chloride 102, Carbon Dioxide 21.6, Anion Gap 11, BUN 9, Creatinine 0.61 L, Estim Creat Clear Calc 134.56, Est GFR (MDRD) Non-Af 135, BUN/Creatinine Ratio 15.5, Glucose 216 H, Calcium 8.8 Charges/Coding Addendum Addendum: Total time of the visit including total time spent in counseling or coordinationof care, (more than 50% of the total time, spent in obtaining medical information from nurses and other ancillary care providers ,explaining to the patient about labs, imaging, diagnosis and management of active complex medical conditions), clinical update given that the patient's mother, primary caregiver and ID consult and discussion with Dr. Valencia, review of labs and imaging is 35 minutes. Visit Charges Inpatient E&M: 89045 Subs Hosp L3 06/08/25 1207 <Electronically signed by Gregorio Qiu MD> Cosigner Signature (if applicable): CC: ~ Signed ADDENDUM by Dr. Gregorio Qiu MD on 06/08/25 at 1338 Addendum Patient had fever 103 Fahrenheit with tachycardia 130/min at about 12:30 PM. Tylenol was given but is still patient was febrile 103 Fahrenheit. Blood cultures already ordered in the morning. Ibuprofen 400 mg as needed for fever T102 Fahrenheit ordered. IV antibiotic cefepime changed to IV Zosyn. ID already consulted. 06/08/25 1332<Electronically signed by Gregorio Qiu MD> Cosigner Signature (if applicable): cc: ~* Signed [facility] Work Phone: [phone] Progress note [facility] Medical Records Department [address] [place] [address] Progress Note - Hospitalist 06/08/25 0837 MR#: [id number] Acct: [id number] Name: MARCOS AGUIRRE Rep #:[id number] : 1995 29 From: Gregorio Russo PCP: Dr. Nikita Gramajo, DO Status:ADM IN Location: [place] [address] Reason for Visit Chief Complaint: High grade fever 104.4 and low urine output. Objective Data Objective Data Vital Signs: Vital Signs Temp Pulse Resp BP Pulse Ox O2 Del Method O2 Flow Rate 98.8 F 117 H 16 142/90 H 100 Bi-pap 3 06/08/25 06:50 06/08/25 08:14 06/08/25 08:14 06/08/25 04:50 06/08/25 04:50 06/08/25 04:50 06/08/25 03:41 Oxygen Flow Rate (L/min) 3 Oxygen Delivery Method Bi-pap Weight: 116 lb 9.992 oz Body Mass Index (BMI) 22.0 Intake & Output: Intake and Output for Last 24 Hours 06/06/25 06/07/25 06/08/25 23:59 23:59 23:59 Intake Total 3560 / 3560 Output Total 550 / 800 675 / 675 Balance 3010 / 2760 -675 / -675 Lab / Micro Data 06/08/25 05:44 06/08/25 05:44 Labs: Laboratory Results - last 24 hr 06/07/25 10:30: WBC 19.4 H, RBC 4.98, Hgb 14.2, Hct 41.8, MCV 83.9, MCH 28.5, MCHC 34.0, RDW Std Deviation 40.2, RDW Coeff of Leroy 13.1, Plt Count 211, MPV 9.2, Immature Gran % (Auto) 0.600, Neut % (Auto) 86.1 H, Lymph % (Auto) 4.3 L, Hamblen % (Auto) 8.8, Eos % (Auto) 0.0, Baso % (Auto) 0.2, Absolute Neuts (auto) 16.7 H, Absolute Lymphs (auto) 0.83, Nucleated RBC % 0, Differential Comment SCANNED, Sodium 133, Potassium 3.5, Chloride 95 L, Carbon Dioxide 23.7, Anion Gap 14, BUN 13, Creatinine 0.83,Estim Creat Clear Calc 97.19, Est GFR (MDRD) Non-Af 123, BUN/Creatinine Ratio 15.7, Glucose 134 H, Lactic Acid < 1.0, Calcium9.5, Magnesium 2.1, Total Bilirubin 0.78, AST 20, ALT 35, Alkaline Phosp hatase 121, Total Creatine Kinase 96, Total Protein 8.0, Albumin 3.9, Globulin 4.1, Albumin/Globulin Ratio 1.0 06/07/25 10:50: Urine Color Yellow, Urine Clarity Cloudy, Urine pH 8.0, Ur Specific [place] 1.010, Urine Protein 100 H, Urine Glucose (UA) Normal, Urine Ketones 15 H, Urine Occult Blood 250 H, Urine Nitrite Positive H, Urine Bilirubin Negative, Urine Urobilinogen Normal, Ur Leukocyte Esterase 500 H, Urine RBC 5-10 SEEN, Urine WBC 50-100 SEEN, Ur Squamous Epith Cells 0-5 SEEN, Urine Bacteria 2+, Urine Mucus 0 SEEN 06/07/25 14:20: PT 16.3 H, INR 1.3, APTT 37.7 H 06/07/25 15:10: MRSA (PCR) Negative 06/08/25 05:44: WBC 12.9 H, RBC 4.32 L, Hgb 12.1 L, Hct 36.6 L, MCV 84.7, MCH 28.0, MCHC 33.1, RDW Std Deviation 41.0, RDW Coeff of Leroy 13.1, Plt Count 209, MPV 9.6, Immature Gran % (Auto) 0.600, Neut % (Auto) 84.2 H, Lymph % (Auto) 6.3 L, Hamblen % (Auto) 8.5, Eos % (Auto) 0.2, Baso % (Auto) 0.2, Absolute Neuts (auto)10.9 H, Absolute Lymphs (auto) 0.81 L, Nucleated RBC % 0, Sodium 134, Potassium 3.5, Chloride 102, Carbon Dioxide 21.6, Anion Gap 11, BUN 9, Creatinine 0.61 L, Estim Creat Clear [id number], Est GFR (MDRD) Non-Af 135, BUN/Creatinine Ratio 15.5, Glucose 216 H, Calcium 8.8 Micro: Microbiology 06/07/25 10:50 Urine Catheter - Wade Legionella Antigen - Final 06/07/25 10:50 Urine Catheter - Wade Streptococcus pneumoniae Antigen (M - Final 06/07/25 12:43 Mucosa - Nose SARS-CoV-2, Influenza & RSV (PCR) - Final Physical Exam Narrative Seen and examined Patient again had fever Tmax 102.5 about 3:41 AM. Physical exam General: Alert, Oriented x3, Cooperative. Short stature. BMI 21.1 kg/m?, 5'1 height HEENT: Atraumatic, PERRLA, EOMI, Normocephalic. Oral: Oral mucosa dry. No Gingival or Mucosal Lesions/ Ulcerations Neck: Very short and wide neck. Supple, No JVD, Negative Carotid Bruits Chest wall/Lungs: Surgical scar on the back, kyphoscoliosis. Air entry diminished in bilateral lungbases. No crepitation/rhonchi Cardiovascular: Sinus tachycardia, normal S1,S2, No M/G/R Abdomen: Bowel Sounds sluggish, soft, early colostomy. No rigidity. No distention : Indwelling catheter from umbilicus draining bladder. No renal angle tenderness. No suprapubic tenderness. 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 No Tenderness to Palpation of Joints or Extremities Spine: Thoracic surgical scar cruz. Contracture in the back with, spinal deformity Neurological: No sensation below mid thoracic level. Complete neuroexam unobtainable with spina bifid deformity. Psych/Mental Status: Flat affect Assessment & Plan Assessment/Plan (1) Complicated urinary tract infection: PLAN: Plan This 29-year-old gentleman is being admitted high-grade fever, decreased urine output with suspicion of complicated UTI 1. SIRS criteria due to complicated UTI: Patient does not have features/signs and symptoms of sepsis at the time of admission. Patient has tachycardia, high- grade fever and leukocytosis IV fluid 1600mL as per 30 mL/kg body weight. Previous urine culture grew Pseudomonas therefore started on IV cefepime 2 g every 12 hourly. Lactic acid normal. UA shows positive nitrite, LE 500, WBC 5200 cells, RBC 5-10 cells, 2+ bacteria. Squamous epithelial 0-5 cells. 06/08: Patient had fever 102.5 Fahrenheit. Discussed with ID. Patient on IV cefepime. ID consult tomorrow. Urine culture shows GNR 80,000?100,000 colonies. Blood culture pending. Repeat blood culture ordered. Urinary antigens, MRSA nasal screen are negative. Triple PCR for SARS-CoV-2, flu and RSV are negative 2. Chronic hypoxic and hypercarbic respiratory failure: Currently patient does not require oxygen. Pulse ox 95% on room air. Follows in pulmonary clinic, last visit on 06/05. Patient has noninvasive ventilator. 3. 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 4. Sinus tachycardia and hypertension: Currently blood pressure is in normal range. Hold antihypertensive medication. On Cardizem 240 mg daily, resume fromtomorrow. Patient monitors heart rate at home and baseline is 80s to 90/min. 5. Bedbound, physical debility, RLE amputation, indwelling Wade catheter, colostomy: Nursing care.Patient mother is a primary care. 6. Hyperglycemia at 216: Accu-Chek before meals and at bedtime with Humalog sliding scale coverage and hypoglycemia protocol. A1c ordered for tomorrow a.m. No history of diabetes mellitus Living will/advanced directive/end of life care: Patient does not have living will or advanced directive. Patient does not endanger power of brand executive for health but her mother is primary caregiver. After discussion of benefits/risks procedures involved with full code, DNR CC arrest and DNR CC, the patient optedfor full code. Patient's mother does want artificial life support including intubation, tube feed, ventilator and/chest compression, central venous catheter, vasopressor andDC shock if needed Total time spent in [id number] encounter in discussion of advanced directive 17 minutes. Microbiology Past 72 Hours 06/07/25 10:50 Urine Catheter - Catheter Urine Culture - Preliminary Gram negative susan 06/07/25 10:50 Urine Catheter - Wade Legionella Antigen - Final 06/07/25 10:50 Urine Catheter - Wade Streptococcus pneumoniae Antigen (M - Final 06/07/25 12:43 Mucosa - Nose SARS-CoV-2, Influenza & RSV (PCR) - Final Laboratory Results 06/07/25 10:30: Magnesium 2.1, Total Creatine Kinase 96 06/07/25 14:20: PT 16.3 H, INR 1.3, APTT 37.7 H 06/07/25 15:10: MRSA (PCR) Negative 06/08/25 05:44: WBC 12.9 H, RBC 4.32 L, Hgb 12.1 L, Hct 36.6 L, MCV 84.7, MCH 28.0, MCHC 33.1, RDW Std Deviation 41.0, RDW Coeff of Leroy 13.1, Plt Count 209, MPV 9.6, Immature Gran % (Auto) 0.600, Neut % (Auto) 84.2 H, Lymph % (Auto) 6.3 L, Hamblen % (Auto) 8.5, Eos % (Auto) 0.2, Baso % (Auto) 0.2, Absolute Neuts (auto)10.9 H, Absolute Lymphs (auto) 0.81 L, Nucleated RBC % 0, Sodium 134, Potassium 3.5, Chloride 102, Carbon Dioxide 21.6, Anion Gap 11, BUN 9, Creatinine 0.61 L, Estim Creat Clear [id number], Est GFR (MDRD) Non-Af 135, BUN/Creatinine Ratio 15.5, Glucose 216 H, Calcium 8.8 Charges/Coding Addendum Addendum: Total time of the visit including total time spent in counseling or coordinationof care, (more than50% of the total time, spent in obtaining medical information from nurses and other ancillary care providers ,explaining to the patient about labs, imaging, diagnosis and management of active complexmedical conditions), clinical update given that the patient's mother, primary caregiver and ID consult and discussion with Dr. Valencia, review of labs and imaging is 35 minutes. Visit Charges Inpatient E&M: 61449 Subs Hosp L3 06/08/25 1207 Cosigner Signature (if applicable): CC: ~ Signed ADDENDUM by Dr. Gregorio Qiu MD on 06/08/25 at 1338 Addendum Patient had fever 103 Fahrenheit with tachycardia 130/min at about 12:30 PM. Tylenol was given but is still patient was febrile 103 Fahrenheit. Blood cultures already ordered in the morning. Ibuprofen 400 mg as needed for fever T102 Fahrenheit ordered. IV antibiotic cefepime changed to IV Zosyn. IDalready consulted. 06/08/25 1338 Cosigner Signature (if applicable): cc: ~* Signed [facility]08-16-2025 History and physical note Author Gregorio Qiu [facility] Note Date/Time June 07, 2025 1: 32pm [facility] Medical Records Department [address] [place] [address] H&P Exam - Hospitalist 06/07/25 1215 MR#: [id number] Acct: [id number] Name: MARCOS AGUIRRE Rep #:[id number] : 1995 29 From: Gregorio Russo PCP: Dr. Nikita Gramajo, DO Status:ADM IN Location: [place] [address] HPI - General General Date of Admission: 06/07/25 Date of Service: 06/07/25 Chief Complaint: High grade fever 104.4 and low urine output. HPI Narrative MARCOS AGUIRRE, is a 29 M who was brought to ED by her mother/primary caregiver forrunning high fever. He had 104.4 Fahrenheit, tachycardia and low urine output. Patient has neuromuscular respiratory disorder and has a spina bifid with surgery in the past thoracic spine. 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 Bedbound with PEG tube, indwelling catheter at umbilicus level and colostomy. Patient denies any cough, sore throat, URI. In ED, BP 120/75, heart rate 131, respiratory rate 18. Does not meet criteria for sepsis. 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 Chronic respiratory failure with hypoxia and hypercapnia Neuromuscular respiratory weakness Chronic respiratory failure requiring treatment with nocturnal BPAP by mask Home Medications ?Medication ?Instructions ?Recorded ?Last Taken ?Type nut.tx impaired digestive See Rx Instructions feeding tube 12/01/22 Unknown History fxn-fiber 0.07 gram-1.5 kcal/mL .HS feed oral liquid (Vital Peptide 1.5 Shine) cholecalciferol (vitamin D3) 10 10 mcg PO QDAY 5 06/06/25 History mcg (400 unit) chewable tablet diltiazem HCl 240 mg capsule,24 240 mg PO QDAY 5 06/06/25 History hr,extended release acetaminophen 325 mg capsule 325 mg PO Q6H PRN fever o r pain 06/07/25 06/07/25 History Allergy/AdvReac Type Severity Reaction Status Date / Time bacitracin Allergy Mild unknown Verified 06/07/25 10:38 latex Allergy Unknown Verified 06/07/25 10:38 levofloxacin (Levofloxacin) Allergy Rash Verified 06/07/25 10:38 sulfamethoxazole (From Allergy Rash Verified 06/07/25 10:38 Bactrim) trimethoprim (From Bactrim) Allergy Rash Verified 06/07/25 10:38 Social History Smoking Status: Never smoker ROS ROS Narrative 14 system was taken from patient's primary caregiver, her mother. Constitutional: Bedbound. Short stature, 5 feet 1 inch. High-grade fever HEENT: Reports systems reviewed and no addt'l complaints, except as documented Respiratory/Chest: No acute shortness of breath or respiratory distress or wheezing. CVS: No chest pain pressure or tightness Gastrointestinal: Denies coffee ground emesis, hematemesis or vomiting. No abdominal Genitourinary: Indwelling Wade catheter through umbilicus. No sensation below mid thoracic level Musculoskeletal: Kyphoscoliosis, spinal bifid at thoracic level. Status post surgery. Bedbound. High-level RLE amputation thigh. Neurologic: Denies seizure-like symptoms. skin: Chronic scar and deformity from thoracic spine surgery scar Endocrinology: Reports systems reviewed and no addt'l complaints, except as documented Hematologic/Lymphatic: Reports systems reviewed and no addt'l complaints, exceptas documented Rest 14 ROS are negative except as mentioned in HPI Vital Signs Vital Signs Vital Signs: 06/07/25 09:55 Temperature 99.1 F Temperature Source Oral Pulse Rate 131 H Respiratory Rate 18 Blood Pressure 126/75 H Blood Pressure Mean 92 Pulse Ox 95 Oxygen Delivery Method Room Air Weight Weight: 113 lb 5.082 oz Body Mass Index (BMI) 20.7 Physical Exam Narrative General: Alert, Oriented x3, Cooperative. Short stature. BMI 21.1 kg/m?, 5 feet 1 inch height HEENT: Atraumatic, PERRLA, EOMI, Normocephalic. Oral: Oral mucosa dry. No Gingival or Mucosal Lesions/ Ulcerations Neck: Very short and wide neck. Supple, No JVD, Negative Carotid Bruits Chest wall/Lungs: Surgical scar on the back, kyphoscoliosis. Air entry diminished in bilateral lung bases. No crepitation/rhonchi Cardiovascular: Sinus tachycardia, normal S1,S2, No M/G/R Abdomen: Bowel Sounds sluggish, soft, early colostomy. No rigidity. No distention : Indwelling catheter from umbilicus draining bladder. No renal angle tenderness. No suprapubic tenderness. Extremities: No edema, Capillary Refill Less than 3 Seconds Skin: No rashes, No breakdown Musculoskeletal: RLE amputation. No Tenderness to Palpation of Joints or Extremities Neurological: No sensation below mid thoracic level. Complete neuroexam unobtainable with spina bifid deformity. Psych/Mental Status: Flat affect Results Lab / Micro Data 06/07/25 10:30 06/07/25 10:30 Labs: Laboratory Results - last 24 hr 06/07/25 10:30: WBC 19.4 H, RBC 4.98, Hgb 14.2, Hct 41.8, MCV 83.9, MCH 28.5, MCHC 34.0, RDW Std Deviation 40.2, RDW Coeff of Leroy 13.1, Plt Count 211, MPV 9.2, Immature Gran % (Auto) 0.600, Neut % (Auto) 86.1 H, Lymph % (Auto) 4.3 L, Hamblen % (Auto) 8.8, Eos % (Auto) 0.0, Baso % (Auto) 0.2, Absolute Neuts (auto) 16.7 H, Absolute Lymphs (auto) 0.83, Nucleated RBC % 0, Differential Comment SCANNED, Sodium 133, Potassium 3.5, Chloride 95 L, Carbon Dioxide 23.7, Anion Gap 14, BUN 13, Creatinine 0.83, Estim Creat Clear Calc 97.19, Est GFR (MDRD) Non-Af 123, BUN/Creatinine Ratio 15.7, Glucose 134 H, Lactic Acid < 1.0, Calcium9.5, Total Bilirubin 0.78, AST 20, ALT 35, Alkaline Phosphatase 121, Total Protein 8.0, Albumin 3.9, Globulin 4.1, Albumin/Globulin Ratio 1.0 06/07/25 10:50: Urine Color Yellow, Urine Clarity Cloudy, Urine pH 8.0, Ur Specific [place] 1.010, Urine Protein 100 H, Urine Glucose (UA) Normal, Urine Ketones 15 H, Urine Occult Blood 250 H, Urine Nitrite Positive H, Urine Bilirubin Negative, Urine Urobilinogen Normal, Ur Leukocyte Esterase 500 H, Urine RBC 5-10 SEEN, Urine WBC 50-100 SEEN, Ur Squamous Epith Cells 0-5 SEEN, Urine Bacteria 2+, Urine Mucus 0 SEEN Assessment & Plan Assessment/Plan (1) Complicated urinary tract infection: PLAN: Plan This 29-year-old gentleman is being admitted high-grade fever, decreased urine output with suspicion of complicated UTI 1. SIRS criteria due to complicated UTI: Patient does not have features/signs and symptoms of sepsis at the time of admission. Patient has tachycardia, high-grade fever and leukocytosis IV fluid 1600 mL as per 30 mL/kg body weight. Previous urine culture grew Pseudomonas therefore started on IV cefepime 2 g every 12 hourly. Lactic acid normal. UA shows positive nitrite, LE 500, WBC 5200 cells, RBC 5-10 cells, 2+ bacteria. Squamous epithelial 0-5 cells. 2. Chronic hypoxic and hypercarbic respiratory failure: Currently patient does not require oxygen. Pulse ox 95% on room air. Follows in pulmonary clinic, last visit on 06/05. Patient has noninvasive ventilator. 3. 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 4. Sinus tachycardia and hypertension: Currently blood pressure is in normal range. Hold antihypertensive medication. On Cardizem 240 mg daily, resume fromtomorrow. Patient monitors heart rate at home and baseline is 80s to 90/min. 5. Bedbound, physical debility, RLE amputation, indwelling Wade catheter, colostomy: Nursing care. Patient mother is a primary care. Living will/advanced directive/end of life care: Patient does not have living will or advanced directive. Patient does not endanger power of brand executive for health but her mother is primary caregiver. After discussion of benefits/risks procedures involved with full code, DNR CC arrest and DNR CC, the patient optedfor full code. Patient's mother does want artificial life support including intubation, tube feed, ventilator and/chest compression, central venous catheter, vasopressor andDC shock if needed Total time spent in [id number] encounter in discussion of advanced directive 17 minutes. Charges/Coding Visit Charges Inpatient E&M: 95208 Init Hosp L3 Procedures Hospitalists Procedures: 65553 Advncd Care Plan 30 Min 06/07/25 1332 <Electronically signed by Gregorio Qiu MD> Cosigner Signature (if applicable): CC: Dr. Nikita Gramajo DO; Dr. Gregorio Qiu MD~ Signed [facility] Work Phone: 1(989) 628-841208-16-2025 Discharge summary Author Joseph Rios [facility] Note Date/Time June 07, 2025 12 :11pm [facility] Medical Records Department [address] [place] [address] Emergency Department Summary 06/07/25 MR#: [id number] Acct: [id number] Name: MARCOS AGUIRRE Rep #:[id number] : 1995 29 From: Joseph Rios MD PCP: Dr. Nikita Gramajo DO Status:REG ER Location: ED HPI History of Present Illness Chief Complaint: Complaint Detail of Chief Complaint: Temperature of 104.4 at home. Informant: patient and parent Onset/Context/Timing Onset: Today Context: Sudden Onset Timing: Intermittent Quality: Documented temperature greater than 104. Shaking chills and abdominal dist Location: Generalized and abdomen Current Severity: Gone Maximum Severity: Moderate Worsened by: Mom presumed UTI Relieved by: Antipyretic Associated Symptoms Associated Symptoms: Headache Narrative Narrative: Patient is a 29-year-old male. Patient was seen by Alexa Wallace for pulmonary appointment on June 05. Note was reviewed. Assessment was chronic respiratory failure with hypoxia and hypercapnia. Plan was noninvasive ventilatory support for sleep and rescue. Spina bifida with presence of hydrocephalus., Thoracic region, hypertension and chronic fatigue. 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 Chronic respiratory failure with hypoxia and hypercapnia Neuromuscular respiratory weakness Chronic respiratory failure requiring treatment with nocturnal BPAP by mask Home Medications ?Medication ?Instructions ?Recorded ?Last Taken ?Type nut.tx impaired digestive ml PO 12/01/22 Unknown Histo ry fxn-fiber 0.07 gram-1.5 kcal/mL oral liquid (Vital Peptide 1.5 Shine) cholecalciferol (vitamin D3) 10 10 mcg PO QDAY 5 06/06/25 History mcg (400 unit) chewable tablet diltiazem HCl 240 mg capsule,24 240 mg PO QDAY 5 06/06/25 History hr,extended release acetaminophen 325 mg capsule 325 mg PO Q6H PRN fever o r pain 06/07/25 06/07/25 History Allergy/AdvReac Type Severity Reaction Status Date / Time bacitracin Allergy Mild unknown Verified 06/07/25 10:38 latex Allergy Unknown Verified 06/07/25 10:38 levofloxacin (Levofloxacin) Allergy Rash Verified 06/07/25 10:38 sulfamethoxazole (From Allergy Rash Verified 06/07/25 10:38 Bactrim) trimethoprim (From Bactrim) Allergy Rash Verified 06/07/25 10:38 Social History Smoking Status: Never smoker ROS ROS ED Constitutional Constitutional ED: Reports chills, fever(s) and sweats; Denies subjective or weight loss Eyes Eyes: Denies blurry vision, change in vision or diplopia ENT ENT ED: Denies ear pain, rhinorrhea or sore throat Cardiovascular Cardiovascular: Denies chest pain or palpitations Respiratory/Chest Respiratory/Chest: Denies cough, dyspnea or dyspnea on exertion Gastrointestinal Gastrointestinal: Reports other Details: Patient is making stool. There is stool in his colostomy and he is passing gas. Do not suspect his distention is due to an obstruction. ; Denies abdominal pain, diarrhea, nausea or vomiting Musculoskeletal Musculoskeletal: Reports other Details: Patient has no sensation from the waist down. ; Denies arthralgias, back pain or myalgias Integumentary Reports other Details: Mom states there is a small decubitus. It does not appear infected. ; Denies rash Neurologic Neurologic: Reports headache(s); Denies paresthesias Hematologic/Lymphatic Hematologic/Lymphatic: Reports systems reviewed and no addt'l complaints, exceptas documented EXAM Physical Exam Const Vital Signs: 06/07/25 09:55 Temperature 99.1 F Temperature Source Oral Pulse Rate 131 H Respiratory Rate 18 Blood Pressure 126/75 H Blood Pressure Mean 92 Pulse Ox 95 Oxygen Delivery Method Room Air Positive well nourished and well developed General Appearance ED: well developed and NAD; Negative for cyanotic, diaphoretic or pallor HEENT Reports moist mucous membranes HEENT Narrative: Head is atraumatic no cephalic. Ears normal. Nares patent. Eyes PERRL and EOMs intact bilaterally General Eye ED: Negative for pale conjunctiva or scleral icterus Neck no lymphadenopathy, supple and no JVD Chest Wall inspection of chest normal and palpation of chest normal Resp normal respiratory effort and clear to auscultation bilaterally Cardio regular rhythm, S1 normal heart sound, S2 normal heart sound and no murmurs Rate: tachycardic GI GI Narrative: Abdomen is distended slightly tympanitic. He has no sensation. There are multiple well-healed scars. He has a colostomy noted right lower quadrant. Extremity Extremity Narrative: AKA right lower extremity. Atrophy of the left lower extremity. Neuro oriented x3 and CN's II-XII intact bilaterally Sensorium / Orientation: alert Psych mental status grossly normal Skin no rashes or lesions noted and skin turgor normal General Skin Exam: elasticity normal; Negative for jaundice or pallor Sepsis Attestation Possible Source of Sepsis: Genitourinary (Patient does not have any endorgan dysfunction.) MDM MDM MDM Narrative Medical decision making narrative: With temperature of 104.4. Sepsis workup was undertaken which included CBC, competence of metabolic panel, lactate, UA and blood cultures. Mother believes the source is probably his urine. He has debris noted in the Wade collection tubing. Patient was treated with meropenem per sepsis order set since he has a chronic indwelling Wade. Patient has SIRS with no endorgan dysfunction. Therefore he does not have sepsis. Hence, reason no fluids were administered i.e. 30 cc/kg bolus. Lab Data Attestation: I reviewed the patient's lab results. Lab results narrative: White count is elevated at 19.4 thousand. He does have a shift. Competence of metabolic panel is remarkable glucose 134 with a normal CO2 anion gap. Lactate is less than 1. Labs: Laboratory Results - last 24 hr 06/07/25 06/07/25 10:30 10:50 WBC 19.4 H RBC 4.98 Hgb 14.2 Hct 41.8 MCV 83.9 MCH 28.5 MCHC 34.0 RDW Std Deviation 40.2 RDW Coeff of Leroy 13.1 Plt Count 211 MPV 9.2 Immature Gran % (Auto) 0.600 Neut % (Auto) 86.1 H Lymph % (Auto) 4.3 L Hamblen % (Auto) 8.8 Eos % (Auto) 0.0 Baso % (Auto) 0.2 Absolute Neuts (auto) 16.7 H Absolute Lymphs (auto) 0.83 Nucleated RBC % 0 Differential Comment SCANNED Sodium 133 Potassium 3.5 Chloride 95 L Carbon Dioxide 23.7 Anion Gap 14 BUN 13 Creatinine 0.83 Estim Creat Clear Calc 97.19 Est GFR (MDRD) Non-Af 123 BUN/Creatinine Ratio 15.7 Glucose 134 H Lactic Acid < 1.0 Calcium 9.5 Total Bilirubin 0.78 AST 20 ALT 35 Alkaline Phosphatase 121 Total Protein 8.0 Albumin 3.9 Globulin 4.1 Albumin/Globulin Ratio 1.0 Urine Color Yellow Urine Clarity Cloudy Urine pH 8.0 Ur Specific [place] 1.010 Urine Protein 100 H Urine Glucose (UA) Normal Urine Ketones 15 H Urine Occult Blood 250 H Urine Nitrite Positive H Urine Bilirubin Negative Urine Urobilinogen Normal Ur Leukocyte Esterase 500 H Urine RBC 5-10 SEEN Urine WBC 50-100 SEEN Ur Squamous Epith Cells 0-5 SEEN Urine Bacteria 2+ Urine Mucus 0 SEEN Management Discussion w/another healthcare provider: Hospitalist (Spoke with Dr. Qiu who accepted patient. He would like patient to go to PCU versus [facility].) Treatment and Re-Evaluation :: Patient and mother were informed that he has a complicated urine tract infection. Plan is IV antibiotics admit to [facility]. Mother would prefer that he be admitted to [facility]. Discharge Plan Triage Chief Complaint: Complaint ED Provider: Joseph Rios Dx/Rx/DC Orders Clinical Impression: Complicated urinary tract infection, SIRS (systemic inflammatory response syndrome), Leukocytosis, Sinus tachycardia seen on monitoring tech, Acute hyperglycemia Prescriptions: No Action Vital Peptide 1.5 Shine 0.07 gram- 1.5 kcal/mL liquid PO diltiazem HCl 240 mg capsule,extended release 24 hr 240 mg PO QDAY cholecalciferol (vitamin D3) 10 mcg (400 unit) tablet,chewable 10 mcg PO QDAY acetaminophen 325 mg capsule 325 mg PO Q6H PRN (Reason: fever or pain) Primary Care Provider: Nikita Gramajo Referrals: Nikita Gramajo DO [Primary Care Provider] - Print Language: Guyanese What to do if you have Problems For any increased pain, shortness of breath, bleeding, nausea or vomiting, chestpain, or any unexpected problems, contact your Primary Care Provider. Call [facility] ([phone]) or report to the closest Emergency Room. Call 911 if necessary. 06/07/25 1211 <Electronically signed by Joseph Rios MD> Cosigner Signature (if applicable): CC: Dr. Nikita Gramajo DO ~ Signed [facility] Work Phone: 1([phone] 961-376008-16-2025 History and physical note [facility] Medical Records Department [address] [place] [id number] H&P Exam - Hospitalist 06/07/25 1215 MR#: [id number] Acct: [id number] Name: MARCOS AGUIRRE Rep #:[id number] : 1995 29 From: Gregorio Russo PCP: Dr. Nikita Gramajo DO Status:ADM IN Location: [facility] [id number] HPI - General General Date of Admission: 06/07/25 Date of Service: 06/07/25 Chief Complaint: High grade fever 104.4 and low urine output. HPI Narrative MARCOS AGUIRRE, is a 29 M who was brought to ED by her mother/primary caregiver forrunning high fever.He had 104.4 Fahrenheit, tachycardia and low urine output. Patient has neuromuscular respiratory disorder and has a spina bifid with surgery in the past thoracic spine. 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 Bedbound with PEG tube, indwelling catheter at umbilicus level and colostomy. Patient denies any cough, sore throat, URI. In ED, BP 120/75, heart rate 131, respiratory rate 18. Does not meet criteria for sepsis. 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 Chronic respiratory failure with hypoxia and hypercapnia Neuromuscular respiratory weakness Chronic respiratory failure requiring treatment with nocturnal BPAP by mask Home Medications ?Medication ?Instructions ?Recorded ?Last Taken ?Type nut.tx impaired digestive See Rx Instructions feeding tube 12/01/22 Unknown History fxn-fiber 0.07 gram-1.5 kcal/mL .HS feed oral liquid (Vital Peptide 1.5 Shine) cholecalciferol (vitamin D3) 10 10 mcg PO QDAY 5 06/06/25 History mcg (400 unit) chewable tablet diltiazem HCl 240 mg capsule,24 240 mg PO QDAY 5 06/06/25 History hr,extended release acetaminophen 325 mg capsule 325 mg PO Q6H PRN fever o r pain 06/07/25 06/07/25 History Allergy/AdvReac Type Severity Reaction Status Date / Time bacitracin Allergy Mild unknown Verified 06/07/25 10:38 latex Allergy Unknown Verified 06/07/25 10:38 levofloxacin (Levofloxacin) Allergy Rash Verified 06/07/25 10:38 sulfamethoxazole (From Allergy Rash Verified 06/07/25 10:38 Bactrim) trimethoprim (From Bactrim) Allergy Rash Verified 06/07/25 10:38 Social History Smoking Status: Never smoker ROS ROS Narrative 14 system was taken from patient's primary caregiver, her mother. Constitutional: Bedbound. Short stature, 5 feet 1 inch. High-grade fever HEENT: Reports systems reviewed and no addt'l complaints, except as documented Respiratory/Chest: No acute shortness of breath or respiratory distress or wheezing. CVS: No chest pain pressure or tightness Gastrointestinal: Denies coffee ground emesis, hematemesis or vomiting. No abdominal Genitourinary: Indwelling Wade catheter through umbilicus. No sensation below mid thoracic level Musculoskeletal: Kyphoscoliosis, spinal bifid at thoracic level. Status post surgery. Bedbound. High-level RLE amputation thigh. Neurologic: Denies seizure-like symptoms. skin: Chronic scar and deformity from thoracic spine surgery scar Endocrinology: Reports systems reviewed and no addt'l complaints, except as documented Hematologic/Lymphatic: Reports systems reviewed and no addt'l complaints, exceptas documented Rest 14 ROS are negative except as mentioned in HPI Vital Signs Vital Signs Vital Signs: 06/07/25 09:55 Temperature 99.1 F Temperature Source Oral Pulse Rate 131 H Respiratory Rate 18 Blood Pressure 126/75 H Blood Pressure Mean 92 Pulse Ox 95 Oxygen Delivery Method Room Air Weight Weight: 113 lb 5.082 oz Body Mass Index (BMI) 20.7 Physical Exam Narrative General: Alert, Oriented x3, Cooperative. Short stature. BMI 21.1 kg/m?, 5 feet 1 inch height HEENT: Atraumatic, PERRLA, EOMI, Normocephalic. Oral: Oral mucosa dry. No Gingival or Mucosal Lesions/ Ulcerations Neck: Very short and wide neck. Supple, No JVD, Negative Carotid Bruits Chest wall/Lungs: Surgical scar on the back, kyphoscoliosis. Air entry diminished in bilateral lungbases. No crepitation/rhonchi Cardiovascular: Sinus tachycardia, normal S1,S2, No M/G/R Abdomen: Bowel Sounds sluggish, soft, early colostomy. No rigidity. No distention : Indwelling catheter from umbilicus draining bladder. No renal angle tenderness. No suprapubic tenderness. Extremities: No edema, Capillary Refill Less than 3 Seconds Skin: No rashes, No breakdown Musculoskeletal: RLE amputation. No Tenderness to Palpation of Joints or Extremities Neurological: No sensation below mid thoracic level. Complete neuroexam unobtainable with spina bifid deformity. Psych/Mental Status: Flat affect Results Lab / Micro Data 06/07/25 10:30 06/07/25 10:30 Labs: Laboratory Results - last 24 hr 06/07/25 10:30: WBC 19.4 H, RBC 4.98, Hgb 14.2, Hct 41.8, MCV 83.9, MCH 28.5, MCHC 34.0, RDW Std Deviation 40.2, RDW Coeff of Leroy 13.1, Plt Count 211, MPV 9.2, Immature Gran % (Auto) 0.600, Neut % (Auto) 86.1 H, Lymph % (Auto) 4.3 L, Hamblen % (Auto) 8.8, Eos % (Auto) 0.0, Baso % (Auto) 0.2, Absolute Neuts (auto) 16.7 H, Absolute Lymphs (auto) 0.83, Nucleated RBC % 0, Differential Comment SCANNED, Sodium 133, Potassium 3.5, Chloride 95 L, Carbon Dioxide 23.7, Anion Gap 14, BUN 13, Creatinine 0.83,Estim Creat Clear Calc 97.19, Est GFR (MDRD) Non-Af 123, BUN/Creatinine Ratio 15.7, Glucose 134 H, Lactic Acid < 1.0, Calcium9.5, Total Bilirubin 0.78, AST 20, ALT 35, Alkaline Phosphatase 121, Tot al Protein 8.0, Albumin 3.9, Globulin 4.1, Albumin/Globulin Ratio 1.0 06/07/25 10:50: Urine Color Yellow, Urine Clarity Cloudy, Urine pH 8.0, Ur Specific [place] 1.010, Urine Protein 100 H, Urine Glucose (UA) Normal, Urine Ketones 15 H, Urine Occult Blood 250 H, Urine Nitrite Positive H, Urine Bilirubin Negative, Urine Urobilinogen Normal, Ur Leukocyte Esterase 500 H, Urine RBC 5-10 SEEN, Urine WBC 50-100 SEEN, Ur Squamous Epith Cells 0-5 SEEN, Urine Bacteria 2+, Urine Mucus 0 SEEN Assessment & Plan Assessment/Plan (1) Complicated urinary tract infection: PLAN: Plan This 29-year-old gentleman is being admitted high-grade fever, decreased urine output with suspicion of complicated UTI 1. SIRS criteria due to complicated UTI: Patient does not have features/signs and symptoms of sepsis at the time of admission. Patient has tachycardia, high- grade fever and leukocytosis IV fluid 1600mL as per 30 mL/kg body weight. Previous urine culture grew Pseudomonas therefore started on IV cefepime 2 g every 12 hourly. Lactic acid normal. UA shows positive nitrite, LE 500, WBC 5200 cells, RBC 5-10 cells, 2+ bacteria. Squamous epithelial 0-5 cells. 2. Chronic hypoxic and hypercarbic respiratory failure: Currently patient does not require oxygen. Pulse ox 95% on room air. Follows in pulmonary clinic, last visit on 06/05. Patient has noninvasive ventilator. 3. 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 4. Sinus tachycardia and hypertension: Currently blood pressure is in normal range. Hold antihypertensive medication. On Cardizem 240 mg daily, resume fromtomorrow. Patient monitors heart rate at home and baseline is 80s to 90/min. 5. Bedbound, physical debility, RLE amputation, indwelling Wade catheter, colostomy: Nursing care.Patient mother is a primary care. Living will/advanced directive/end of life care: Patient does not have living will or advanced directive. Patient does not endanger power of brand executive for health but her mother is primary caregiver. After discussion of benefits/risks procedures involved with full code, DNR CC arrest and DNR CC, the patient optedfor full code. Patient's mother does want artificial life support including intubation, tube feed, ventilator and/chest compression, central venous catheter, vasopressor andDC shock if needed Total time spent in [id number] encounter in discussion of advanced directive 17 minutes. Charges/Coding Visit Charges Inpatient E&M: 54110 Init Hosp L3 Procedures Hospitalists Procedures: 18657 Advncd Care Plan 30 Min 06/07/25 1332 Cosigner Signature (if applicable): CC: Dr. Nikita Gramajo DO; Dr. Gregorio Qiu MD~ Signed [facility]08-16-2025 Discharge summary [facility] Medical Records Department [address] [place] [address] Emergency Department Summary 06/07/25 MR#: [id number] Acct: [id number] Name: MARCOS AGUIRRE Rep #:[id number] : 1995 29 From: Joseph Rios MD PCP: Dr. Nikita Gramajo DO Status:REG ER Location: ED HPI History of Present Illness Chief Complaint: Complaint Detail of Chief Complaint: Temperature of 104.4 at home. Informant: patient and parent Onset/Context/Timing Onset: Today Context: Sudden Onset Timing: Intermittent Quality: Documented temperature greater than 104. Shaking chills and abdominal dist Location: Generalized and abdomen Current Severity: Gone Maximum Severity: Moderate Worsened by: Mom presumed UTI Relieved by: Antipyretic Associated Symptoms Associated Symptoms: Headache Narrative Narrative: Patient is a 29-year-old male. Patient was seen by Alexa Wallace for pulmonary appointment on June 05. Note was reviewed. Assessment was chronic respiratory failure with hypoxia and hypercapnia. Plan was noninvasive ventilatory support for sleep and rescue. Spina bifida with presence of hydroc ephalus., Thoracic region, hypertension and chronic fatigue. 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 Chronic respiratory failure with hypoxia and hypercapnia Neuromuscular respiratory weakness Chronic respiratory failure requiring treatment with nocturnal BPAP by mask Home Medications ?Medication ?Instructions ?Recorded ?Last Taken ?Type nut.tx impaired digestive ml PO 12/01/22 Unknown Histo ry fxn-fiber 0.07 gram-1.5 kcal/mL oral liquid (Vital Peptide 1.5 Shine) cholecalciferol (vitamin D3) 10 10 mcg PO QDAY 5 06/06/25 History mcg (400 unit) chewable tablet diltiazem HCl 240 mg capsule,24 240 mg PO QDAY 5 06/06/25 History hr,extended release acetaminophen 325 mg capsule 325 mg PO Q6H PRN fever o r pain 06/07/25 06/07/25 History Allergy/AdvReac Type Severity Reaction Status Date / Time bacitracin Allergy Mild unknown Verified 06/07/25 10:38 latex Allergy Unknown Verified 06/07/25 10:38 levofloxacin (Levofloxacin) Allergy Rash Verified 06/07/25 10:38 sulfamethoxazole (From Allergy Rash Verified 06/07/25 10:38 Bactrim) trimethoprim (From Bactrim) Allergy Rash Verified 06/07/25 10:38 Social History Smoking Status: Never smoker ROS ROS ED Constitutional Constitutional ED: Reports chills, fever(s) and sweats; Denies subjective or weight loss Eyes Eyes: Denies blurry vision, change in vision or diplopia ENT ENT ED: Denies ear pain, rhinorrhea or sore throat Cardiovascular Cardiovascular: Denies chest pain or palpitations Respiratory/Chest Respiratory/Chest: Denies cough, dyspnea or dyspnea on exertion Gastrointestinal Gastrointestinal: Reports other Details: Patient is making stool. There is stool in his colostomy and he is passing gas. Do not suspect his distention is due to an obstruction. ; Denies abdominal pain, diarrhea, nausea or vomiting Musculoskeletal Musculoskeletal: Reports other Details: Patient has no sensation from the waist down. ; Denies arthralgias, back pain or myalgias Integumentary Reports other Details: Mom states there is a small decubitus. It does not appear infected. ; Denies rash Neurologic Neurologic: Reports headache(s); Denies paresthesias Hematologic/Lymphatic Hematologic/Lymphatic: Reports systems reviewed and no addt'l complaints, exceptas documented EXAM Physical Exam Const Vital Signs: 06/07/25 09:55 Temperature 99.1 F Temperature Source Oral Pulse Rate 131 H Respiratory Rate 18 Blood Pressure 126/75 H Blood Pressure Mean 92 Pulse Ox 95 Oxygen Delivery Method Room Air Positive well nourished and well developed General Appearance ED: well developed and NAD; Negative for cyanotic, diaphoretic or pallor HEENT Reports moist mucous membranes HEENT Narrative: Head is atraumatic no cephalic. Ears normal. Nares patent. Eyes PERRL and EOMs intact bilaterally General Eye ED: Negative for pale conjunctiva or scleral icterus Neck no lymphadenopathy, supple and no JVD Chest Wall inspection of chest normal and palpation of chest normal Resp normal respiratory effort and clear to auscultation bilaterally Cardio regular rhythm, S1 normal heart sound, S2 normal heart sound and no murmurs Rate: tachycardic GI GI Narrative: Abdomen is distended slightly tympanitic. He has no sensation. There are multiple well-healed scars. He has a colostomy noted right lower quadrant. Extremity Extremity Narrative: AKA right lower extremity. Atrophy of the left lower extremity. Neuro oriented x3 and CN's II-XII intact bilaterally Sensorium / Orientation: alert Psych mental status grossly normal Skin no rashes or lesions noted and skin turgor normal General Skin Exam: elasticity normal; Negative for jaundice or pallor Sepsis Attestation Possible Source of Sepsis: Genitourinary (Patient does not have any endorgan dysfunction.) MDM MDM MDM Narrative Medical decision making narrative: With temperature of 104.4. Sepsis workup was undertaken which included CBC, competence of metabolicpanel, lactate, UA and blood cultures. Mother believes the source is probably his urine. He has debris noted in the Wade collection tubing. Patient was treated with meropenem per sepsis order set since he has a chronic indwelling Wade. Patient has SIRS with no endorgan dysfunction. Therefore he does not have sepsis. Hence, reason no fluids were administered i.e. 30 cc/kg bolus. Lab Data Attestation: I reviewed the patient's lab results. Lab results narrative: White count is elevated at 19.4 thousand. He does have a shift. Competence of metabolic panel is remarkable glucose 134 with a normal CO2 anion gap. Lactate is less than 1. Labs: Laboratory Results - last 24 hr 06/07/25 06/07/25 10:30 10:50 WBC 19.4 H RBC 4.98 Hgb 14.2 Hct 41.8 MCV 83.9 MCH 28.5 MCHC 34.0 RDW Std Deviation 40.2 RDW Coeff of Leroy 13.1 Plt Count 211 MPV 9.2 Immature Gran % (Auto) 0.600 Neut % (Auto) 86.1 H Lymph % (Auto) 4.3 L Hamblen % (Auto) 8.8 Eos % (Auto) 0.0 Baso % (Auto) 0.2 Absolute Neuts (auto) 16.7 H Absolute Lymphs (auto) 0.83 Nucleated RBC % 0 Differential Comment SCANNED Sodium 133 Potassium 3.5 Chloride 95 L Carbon Dioxide 23.7 Anion Gap 14 BUN 13 Creatinine 0.83 Estim Creat Clear Calc 97.19 Est GFR (MDRD) Non-Af 123 BUN/Creatinine Ratio 15.7 Glucose 134 H Lactic Acid < 1.0 Calcium 9.5 Total Bilirubin 0.78 AST 20 ALT 35 Alkaline Phosphatase 121 Total Protein 8.0 Albumin 3.9 Globulin 4.1 Albumin/Globulin Ratio 1.0 Urine Color Yellow Urine Clarity Cloudy Urine pH 8.0 Ur Specific [place] 1.010 Urine Protein 100 H Urine Glucose (UA) Normal Urine Ketones 15 H Urine Occult Blood 250 H Urine Nitrite Positive H Urine Bilirubin Negative Urine Urobilinogen Normal Ur Leukocyte Esterase 500 H Urine RBC 5-10 SEEN Urine WBC 50-100 SEEN Ur Squamous Epith Cells 0-5 SEEN Urine Bacteria 2+ Urine Mucus 0 SEEN Management Discussion w/another healthcare provider: Hospitalist (Spoke with Dr. Qiu who accepted patient. He would like patient to go to PCU versus [facility] Treatment and Re-Evaluation :: Patient and mother were informed that he has a complicated urine tract infection. Plan is IV antibiotics admit to [facility]. Mother would prefer that he be admitted to [facility]. Discharge Plan Triage Chief Complaint: Complaint ED Provider: Joseph Rios Dx/Rx/DC Orders Clinical Impression: Complicated urinary tract infection, SIRS (systemic inflammatory response syndrome), Leukocytosis, Sinus tachycardia seen on monitoring tech, Acute hyperglycemia Prescriptions: No Action Vital Peptide 1.5 Shine 0.07 gram- 1.5 kcal/mL liquid PO diltiazem HCl 240 mg capsule,extended release 24 hr 240 mg PO QDAY cholecalciferol (vitamin D3) 10 mcg (400 unit) tablet,chewable 10 mcg PO QDAY acetaminophen 325 mg capsule 325 mg PO Q6H PRN (Reason: fever or pain) Primary Care Provider: Nikita Gramajo Referrals: Nikita Gramajo DO [Primary Care Provider] - Print Language: Guyanese What to do if you have Problems For any increased pain, shortness of breath, bleeding, nausea or vomiting, chestpain, or any unexpected problems, contact your Primary Care Provider. Call [facility] ([phone]) or report tothe closest Emergency Room. Call 911 if necessary. 06/07/25 1211 Cosigner Signature (if applicable): CC: Dr. Nikita Gramajo DO ~ Signed [facility]07-10-2025 Telephone encounter Note* Telephone Encounter - Inga Astudillo RN - 05/01/2025 12:32 PM EDT Faxed catheter order and supporting documentation to [facility]. [facility]07-10-2025 Miscellaneous Notes* Telephone Encounter - Inga Astudillo RN - 05/01/2025 12:32 PM EDT Faxed catheter order and supporting documentation to [facility]. documented in this encounterAkron [facility]05-[facility]-2025 Evaluation note* Diagnosis Onset Date Resolution Status Admit Date Depression acute February 27, 2025 2:47pm Chronic respiratory failure with hypoxia and hypercapnia chronic February 27, 2025 2:47pm Neuromuscular respiratory weakness chronic February 27, 2025 2: 47pm Spina bifida chronic February 27 2:47pm Chronic respiratory failure with hypoxia and hypercapnia chronic May 2024 2:55pm Neuromuscular respiratory weakness chronic June 05 2:55pm Spina bifida chronic June 05, 2025 2:55pm [place] [employer] Work Phone: 1(531) 432-287505-08-2025 Evaluation note* Diagnosis Onset Date Resolution Status Admit Date Depression acute February 27, 2025 2:47pm Chronic respiratory failure with hypoxia and hypercapnia chronic February 27, 2025 2:47pm Neuromuscular respiratory weakness chronic February 27, 2025 2: 47pm Spina bifida chronic February 27 2:47pm Chronic respiratory failure with hypoxia and hypercapnia chronic May 2:55pm Fatigue chronic June 05, 2 025 2:55pm Hypertension chronic June 05, 2025 2:55pm Neuromuscular respiratory weakness chronic June 05 2:55pm Spina bifida chronic June 05, 2025 2:55pm Acute hyperglycemia acute 2024 12:12pm Complicated urinary tract infection acute June 07 12:12pm Leukocytosis acute June 07, 2025 12:12pm Sinus tachycardia seen on monitoring tech acute June 07 12:12pm SIRS (systemic inflammatory response syndrome) acute June 07, 2025 12:12pm [facility] Work Phone: 1(854) 353-604804-07-2025 Telephone encounter Note* Telephone Encounter - Nikita Gauthier MD - 01/27/2025 2:57 PM EDT Form completed, signed, and placed in outbox. [facility]04-07-2025 Note* Addendum Note - Nikita Gauthier MD - 01/27/2025 2:57 PM EDTAddended by: NIKITA GAUTHIER on: 01/27/2025 02:57 PM Modules accepted: Orders [facility]04-07-2025 Miscellaneous Notes* Telephone Encounter - Nikita [...] in basket for signature documented in this encounterAkron [facility]04-07-2025 Telephone encounter Note * Telephone Encounter - Yasmeen Henderson MA - 01/27/2025 12:16 PM EDT Received forms and placed in in basket for signature [facility]04-04-2025 History of Present illness Narrative* Wilfrido [...] PATIENT PRESENTS WITH AN IMPLANTABLE OR ATTACHED MEDICAL SECRETARY TEACHER: No RADIOLOGY DEPARTMENT: Ultrasound PERIPHERAL IV DATA: Not applicable SIGNED BY: RT Laurel(R) January 24, 2025 1:47 PM documented in this encounterAkron Children'S Hospital04-04-2025 Instructions* Patient Instructions* Mando Gibbs MD - 01/24/2025 12:38 PM EDT Wheelchair modifications to current chair [facility] for new power assist wheelchair F/U in 1 year or prn documented in this encounterAkron [facility]04-04-2025 History of Present illness Narrative* Mando Gibbs MD - 01/24/2025 10:41 AM EDT Images from the original note were not included. PM&R/SCI Medicine Attending Outpatient Note Name: Marcos Aguirre [id number] Date of Service: 01/24/25 Last seen: 01/26/24 [...] emotion wheels and Comfort Inception cushion . Pigment Supplier is motion mobility Date getting chair 2019 [...] wheelchair 3 Date of completion of the oozw-vg-[id number] examination 01/24/25 4 Pertinent diagnosis/conditions that relate [...] [place] [id number] and on the left 53450 11800 8 Why can't patient safely use a [...] Gibbs MD 01/24/25 11 Physician's NPI number [id number] Assessment T2 Paraplegia neurologically stable Neurogenic Bladder [...] Injury Medicine Attending Physical Medicine & Rehabilitation [phone] documented in this encounterAkron [facility]04-04-2025 History of Present illness Narrative* Kelsie [...] last visit, he was changing his 14 [place] Islander catheter daily and keeping it indwelling. He [...] for emergency use. MEDICAL SUPPLY Lubrication jelly [id number] (1 box every 3 months) Bed pads [id number] MEDICAL SUPPLY Feed bags INF 1200-E (30 per month) Feed ext tube [id number] (4 per month) G-tubebutton 20F 4.0cm (2 [...] month MEDICAL SUPPLY 2 skin barrier rings [id number] (1 box every 2 months) Adapt adhesive remover wipes 7760 (1 box every 2 months) [place] colostomy bag 8901(1 box per month) Hy-tape [...] The patient consented to the use of Rabbit TV software for draft documentation of the visit consistent with [facility] s Notice of Privacy Practices. A/P: 1. Spina bifida with hydrocephalus, unspecified spinal region (HCC) (Q05.4) Patient has a history of spina bifida with hydrocephalus. Currently managing with daily 14 [place] Islander catheter changes without balloon inflation. No recent [...] noted. Kelsie Giraldo MD documented in this encounterAkron Children'[facility] Hospital04-04-2025 History of Present illness Narrative* Nikita Gauthier MD - 01/24/2025 8:57 AM EDT Spina Bifida Multidisciplinary Clinic Internal Medicine HPI: Marcos Aguirre is a 29 year old male who presents for spina bifida multidisciplinary clinic. Here with mom and dad. PCP: Nikita Gramajo IV, DO History of spina bifida with history of hydrocephalus and BRIM SHAPER shunt. Underwent open hernia repair with colostomy [...] The patient consented to the use of Rabbit TV software for draft documentation of the visit consistent with [facility] s Notice of Privacy Practices. Nikita Gauthier MD Staff Physician Clinical Research Program Managerradiology technologist Internal Medicine Pediatrics [facility] [address] [place] [address] Office: documented in this encounterAkron Children'S Hospital10-14-2024 Note* Exam Date Time Procedure Performing Provider Status 08/05/24 4:26 PM Echocardiogram, Adult - CV Auth (Verified) [facility] 09-05-2024 Telephone encounter Note* Telephone Encounter - Dank Richey RN - 06/27/2024 2:39 PM EDTSummary: catheter orders for [facility] Images from the original note were not included. Hi, Found the order they were looking for, completed it and faxed it back. Now you have it too, and I have all the specific products you need. Let me know if there is anything else we need to do. RoseJuliette Jackman [facility] [phone] #1 #2 Fx [phone] [facility] Work Phone: 1(586) 242-454709-05-2024 Miscellaneous Notes* Telephone Encounter - Dank Richey RN - 06/27/2024 2:39 PM EDTSummary: catheter orders for [facility] Images from the original note were not included. Hi, Found the order they were looking for, completed it and faxed it back. Now you have it too, and I have all the specific products you need. Let me know if there is anything else we need to do. Dank Jackman [facility] [phone] #1 #2 Fx [phone] documented in this encounterAkron Children'[facility] Hospital05-16-2024 Telephone encounter Note * Telephone Encounter - Shyanne Bledsoe MA - 03/07/2024 1:50 PM EDT Form and script faxed. Shyanne Bledsoe MA March 07, 2024 1:50 PM [facility]05-16-2024 Miscellaneous Notes* Telephone Encounter - Shyanne [...] name: Dr. Abrahan Iglesias documented in this encounterAkron Children'S Hospital05-15-2024 Telephone encounter Note * Telephone Encounter - Nikita Gauthier MD - 03/06/2024 8:52 PM EDT Form completed, signed, placed in outbox, please fax. Also included an RX for lele-sahni buttons. [facility]05-09-2024 Telephone encounter Note* Telephone Encounter - Shyanne Bledsoe MA - 02/29/2024 10:18 AM EDT Form f'wd to Dr.'s sexton for signature. Shyanne Bledsoe MA February 29, 2024 10:18 AM [facility]05-03-2024 Telephone encounter Note* Telephone Encounter - Adeola Iglesias - 02/23/2024 3:06 PM EDT Patient has been identified by name and date of : Yes Type of form: Home Care forms Form received via: Fax When form is completed, fax form to fax number provided. Form has been forwarded to: Provider's mailbox. Provider name: Dr. Abrahan Iglesias [facility]04-30-2024 Discharge summary Author Joseph Rios [facility] February 20, 2024 9:34pm Note Date/Time February 20, 2024 8:4 5pm [facility] Medical Records Department [address] [place] [address] Emergency Department Summary 02/20/24 MR#: [id number] Acct: [id number] Name: YELITZAABIGAILMARCOS Rep #:[id number] : 1995 28 From: Joseph Rios MD [...] similar symptoms: Yes Recent Illness/Hospitalization: No PFSH PFS Medical History Chronic respiratory failure requiring treatment with nocturnal BPAP by mask Chronic respiratory failure with hypoxia and hypercapnia Neuromuscular respiratory weakness On mechanically assisted ventilation Home Medications ipratropium bromide 21 mcg (0.03 %) nasal spray 2 spray intranasal ONCE PRN allergy symptoms #30 mL 12/01/22 [Rx Last Taken Unknown] nut.tx impaired digestive [...] closed. Nurse was asked to contact supervisor feed house to get urethral sounds from the OR. [...] dilated using urethral sounds. Initially a 12 [place] Islander was placed. Dilated up to 16. The [...] Primary Care Provider: Nikita Gramajo Referrals: Nikita Gramajo, [Primary Care Provider] - As Needed Disposition Disposition: Home, Self Care What to do if you have Problems For any increased pain, shortness of breath, bleeding, nausea or vomiting, chestpain, or any unexpected problems, contact your Primary Care Provider. Call [facility] ([phone]) or report to the closest Emergency Room. Call 911 if necessary. 02/20/242133 <Electronically signed by Joseph Rios MD> Cosigner Signature (if applicable): CC: Dr. Nikita Gramajo, DO ~ Signed [facility] Work Phone: 1(389) 844-397804-22-2024 History of Present illness Narrative* Sabiha Mcarthur APRN.VIDEOTAPE EDITOR - 02/12/2024 2:44 PM EDT Signed pended order for medical supplies from [employer]. Gave signed paper prescription to [facility]. Sabiha Mcarthur APRN.VIDEOTAPE EDITOR documented in this encounterAkron Children'S Hospital04-08-2024 Instructions* Patient Instructions* Mando Gibbs MD - 01/29/2024 8:05 AM EDT Plastic Surgery referral to assess left midline wound (present since 2018) for surgical management versus silver nitrate F/U as needed documented in this encounterAkron Children'S Hospital04-05-2024 History of Present illness Narrative* Nikita Gauthier MD - 01/26/2024 10:06 AM EDT Spina Bifida Multidisciplinary Clinic Internal Medicine HPI: Marcos Aguirre is a 28 year old male who presents for spina bifida multidisciplinary clinic. Here with his parents. PCP: Dr. Gramajo. History of spina bifida with history of hydrocephalus and BRIM SHAPER shunt. Underwent open hernia repair with colostomy [...] ordered. Nikita Gauthier MD Staff Physician Clinical Research Program Managerradiology technologist Internal Medicine Pediatrics [address] [place] [address] Office: documented in this encounterAkron Children'S Hospital04-05-2024 History of Present illness Narrative* Mando Gibbs MD - 01/26/2024 9:50 AM EDT Images from the original note were not included. PM&R/SCI Medicine Attending Outpatient Note Name: Marcos Aguirre [id number] Date of Service: 01/26/24 Last seen: 08/25/23 [...] emotion wheels and Comfort Inception cushion . Pigment Supplier is motion mobility Date getting chair [address] Objective Physical Exam: General: cooperative BACK: 1x1cm shallow midline wound above pelvis. Randolph granulation tissue EXT: Right hip disarticulation Neurologic: [...] Injury Medicine Attending Physical Medicine & Rehabilitation [phone] documented in this encounterAkron Children'S Hospital04-05-2024 History of Present illness Narrative* Jeri Mehta PA-C - 01/26/2024 9:30 AM EDT This note was created using PublicRelayriter. Subjective Marcos Aguirre is a 28 year old male seen today via zoom to establish care for group marketing vp shunt in setting of spina bifida. Hx congential hydrocephalus shunted since , no revisions after first year of life, left parietal VPS, non programmable valve, spina-bifida with severe scoliotic deformity (instrumented fusion ~ T10-L2 2007, [facility]'), wheelchair dependent, admitted [facility] to [facility] after elective G tube revision and abdominal wall reconstruction for hernias. Neurosurgery was consulted to rule out involvement of VPS in the context of uptrending post-operative leukocytosis. Pt was recommended outpatient follow up and was not able to make connection. He reports today and is experiencing a bit of an elevated heart rate. He spoke with his trial consultant and they put him on something to [...] Physical Exam Assessment and Plan Congenital hydrocephalus Learning Developer shunt with non-programmable valve H/o spina bifida [...] which included preparing to see the patient, uqyi-uy-rwal patient care, completing clinical documentation, obtaining and/or reviewing separately obtained history, counseling and educating the patient/family/caregiver, communicating with other HCPs (not separately reported), independently interpreting results (not separately reported), communicating results to the patient/family/caregiver, and care coordination (not separately reported). This virtual visit was conducted via RebelMail which is a HIPAA compliant video platform. I received consent from the patient to perform the visit using this platform. The visit required patient-provider interaction for the medical decision making as documented herein. I have communicated my name and active licensure. The patient's identity and physical location wereverified at the time of this visit. Either the patient or their legal media sales representative has been informed of the risks and benefits of -- and alternatives to -- treatment through a remote evaluation andconsents to proceed with the evaluation remotely. documented in this encounterAkron Children'S Hospital04-05-2024 History of Present illness Narrative* Kelsie Giraldo MD - 01/26/2024 8:00 AM EDT HPI: Marcos Karan Almanzaabigail is a 28M, take down and revision [...] changes daily. No issues with insertion. Supplier [employer]. Denies infection since August 2023. S/S dark [...] and 60 ml after tube feeding completed 24376 mL 11 No current facility-administered medications for [...] nutrition Kelsie Giraldo MD documented in this encounterAkron Children'S Hospital11-17-2023 Note. MICRO - Microbiology PROCEDURE: Urine [...] Locations *1: This test was performed at: [address], [facility]- , [facility] ([place])08-28-2023 Instructions* Patient Instructions* Mando Gibbs MD - 08/28/2023 11:45 AM EST F/U in 1 yr or prn and monitor neurological exam with ISNCSCI exam documented in this encounterAkron Children'S Hospital11-06-2023 Miscellaneous Notes* Letter - Kelsie Giraldo MD - 08/28/2023 12:00 AM EST August 28, 2023 Nikita Gramajo IV, D.O. [address] [address] NAME: MARCOS AGUIRRE CLINIC NO.: [id number] DATE OF SERVICE: 08/28/[address] Gramajo: [...] Giraldo M.D. Date Dictated: 08/28/2023 Date Typed: [facility] 08/28/2023 JOB# [id number] Clinic note from myself and Dr. Gibbs dated August 25, 2023, labs from March 23, 2023, CT scan report from March 21, 2023. Please print up the EKG and send it to the actual tracing of the EKG to Dr. Gramajo. documented in this encounterAkron Children'S Hospital11-03-2023 History of Present illness Narrative* Mando Gibbs MD - 08/25/2023 9:25 AM EDT Images from the original note were not included. PM&R/SCI Medicine Attending Outpatient Note Name: Marcos Aguirre [id number] Date of Service: 08/25/23 Last seen 03/25/22 [...] gram- 1.5 kcal/mL liqd 574 mL by G-TUBEroute once daily. No current facility-administered medications on file prior to visit. 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 Pigment Supplier is motion mobility Date getting chair [address] [...] Injury Medicine Attending Physical Medicine & Rehabilitation [phone] documented in this encounterAkron Children'S Hospital11-03-2023 History of Present illness Narrative* Kelsie [...] gram- 1.5 kcal/mL liqd 574 mL by G-TUBErfunmie once daily. No current facility-administered medications on [...] feedbags to g tube 30 per month [facility] [place] colostomy bags from [employer]- uses 4-5 per [...] baseline Kelsie Giraldo MD documented in this encounterAkron Children'S Hospital10-12-2023 Miscellaneous Notes* Telephone Encounter - Shyanne [...] date of : Yes Type of form: [facility] - Certification of Medical Necessity: Enteral and ParenteralNutrition Form received via: Fax When form is completed, fax form to [phone] Form has been forwarded to: Provider's mailbox. Provider name: Dr Abrahan Oconnor documented in this encounterAkron Children'S Hospital10-09-2023 Miscellaneous Notes* Telephone Encounter - Nikita Gauthier MD - 07/31/2023 4:38 PM EDT Discussed with construction manager. Equivalent tube feeding regamin is Vital 1.0 x 3 cartons mixed with 1 cup of water. Run at 85/hr Will have patient follow up with tube feeding research nutritionist Lashon Islas. To schedule call: Call for F2F Call for virtual visit * Telephone Encounter - Nikita Gauthier MD - 07/31/2023 2:45 PM EDT Called mom to clarify nutrition needs. Currently getting 2 cartons vital 1.5 mixed with 2 cartons water overnight. Running at a rate of 85ml/hr. Unable to get vital 1.5 but vital 1.0 is available. documented in this encounterAkron Children'S Hospital08-16-2023 History of Present illness Narrative* Marifer [...] He had issues changing [place] G-tube in [place] so he was asked to come to [...] MD General Surgery, PGY-1 documented in this encounterAkron Children'S Hospital08-14-2023 Nurse Note* Amada Bella Ma - [...] No Drains: Yes catheter documented in this encounterAkron Children'S Hospital06-26-2023 History of Present illness Narrative* Marifer [...] 17, 2023 3:32 PM documented in this encounterAkron Children'S Hospital06-26-2023 History of Present illness Narrative* Kelsie [...] skin changes on backside- reviewed images on moms phone. Looks like diaper rash. Advised A&D [...] appt. Kelsie Giraldo MD documented in this encounterAkron Children'S Hospital06-14-2023 Miscellaneous Notes* Telephone Encounter - Sabiha Mcarthur APRN.CNP - 04/05/2023 12:49 PM EDT See telephone encounter with Dr. Johnson. Sabiha Mcarthur APRN.CNP documented in this encounterAkron Children'S Hospital05-27-2023 [facility] Note [facility] 03-16-20[facility] History of Past illness Narrative* Problem [...] of this encounter (statuses as of 04/05/2023) [facility] History of Past illness Narrative* Problem [...] of this encounter (statuses as of 04/17/2023) [facility] History of Past illness Narrative* Problem [...] of this encounter (statuses as of 04/18/2023) [facility] History of Past illness Narrative* Problem [...] of this encounter (statuses as of 04/20/2023) [facility] of Past illness Narrative* Problem [...] of this encounter (statuses as of 06/08/2023) [facility] Past illness Narrative* Problem [...] of this encounter (statuses as of 06/08/2023) [facility] of Past illness Narrative* Problem [...] of this encounter (statuses as of 08/02/2023) [facility] of Past illness Narrative* Problem [...] of this encounter (statuses as of 2023) [facility] of Past illness Narrative* Problem [...] of this encounter (statuses as of 08/26/2023) [facility] of Past illness Narrative* Problem [...] of this encounter (statuses as of 08/29/2023) [facility] Past illness Narrative* Problem [...] of this encounter (statuses as of 08/29/2023) [facility] Past illness Narrative* Problem [...] of this encounter (statuses as of 08/29/2023) [facility] of Past illness Narrative* Problem [...] of this encounter (statuses as of 01/04/2024) [facility] Past illness Narrative* Problem [...] of this encounter (statuses as of 01/26/2024) [facility] Past illness Narrative* Problem [...] of this encounter (statuses as of 01/27/2024) [facility] of Past illness Narrative* Problem [...] of this encounter (statuses as of 01/29/2024) [facility] Past illness Narrative* Problem [...] of this encounter (statuses as of 01/29/2024) [facility] of Past illness Narrative* Problem [...] of this encounter (statuses as of 02/04/2024) [facility] of Past illness Narrative* Problem [...] of this encounter (statuses as of 01/26/2024) [facility] History of Present illness Narrative* Vicki Augustine, PhD - 02/16/2023 4:00 PM EDT Behavioral Medicine [facility] [place] Name: Marcos Aguirre MR#: [id number] Date: 02/16/2023 Time: hour Referred by: Dr. [...] again. Vicki Eldridge, Ph.D. documented in this encounterAkron [facility]04-[facility] Instructions* Patient Instructions* Prince Vallejo APRN.VIDEOTAPE EDITOR - 02/16/2023 12:54 PM EDT PATIENT PREOPERATIVE INSTRUCTIONS Marifer Dowd MD has scheduled you for your procedure at this surgery center: [facility] [place] [facility] Scheduling Office: [phone] --[address] [place] [address]. Please read below carefully for your personalized [...] Procedures: - YOU MUST HAVE A RESPONSIBLE ACCESSIBILITY LIFT TECHNICIAN TAKE YOU HOME. A SLAT TWISTER OR HAIR ASSISTANT CANNOT BE MADE A RESPONSIBLE ACCESSIBILITY LIFT TECHNICIAN. - We recommend that a responsible person [...] call the Monday before. Your surgeon s computer processing scheduler will tell you what time to call the office. - If you have not reached the departmental computer processing scheduler by 5 P.M., call [phone] after 5 P.M. the day before your surgery. Please be aware that emergency situations arise, which may delay or change your surgical time. If this happens, we will notify you as soon as possible and regret any inconvenience. If you already have an Advance Directive, please fax a copy to [phone] or email to for it to be [...] day. Prince Vallejo APRN.CNP documented in this encounterAkron [facility] History and physical note * Prince [...] of spina bifida, NIGEL, transverse colostomy, mitrofanoff, BRIM SHAPER shunt. Scheduled for REVISION COLOSTOMY W/ REPAIR [...] hydrocephalus . No history of TIA's, stroke, ACCOUNT MANAGER RELIEF tumor, impaired sensorium, hemiplegia, paraplegia or quadraplegia. [...] requiring medication, no history of angina, CHF, OK, cardiac surgery or stents. Denies rest pain, [...] 356 QTC Calculation (Bazett) 378 Calculated P [place] 32 Calculated R [place] 58 Calculated T [place] 54 Impression NORMAL SINUS RHYTHM NORMAL ECG No results found for this or any previous visit (from the past 26879 hour(s)). Assessment There is no known pertinent [...] 3 liters of oxygen at night ) [id number] Score: [id number] Score: 0 ASA Class: 3 ANESTHESIA FINDINGS: [...] 12:38 PM PAGER/CONTACT #: documented in this encounterAkron [facility]04-[facility]23 History and physical note * Harry Shore MD - 02/16/2023 11:00 AM EDT COLORECTAL SURGERY Consultation February 14, 2023 Marcos Aguirre 27 year old This consult was requested by Dr. Dowd and my final recommendations will be communicated to the requesting health care provider by way of the shared medical record for internal providers or letter via the [employer] for external providers. Chief Complaint: consult for combo case History of Present Illness: Marcos Aguirre is a 27 year old year old male PMHx spina bifida, NIGEL, transverse colostomy, mitrofanoff, BRIM SHAPER shunt here for discussion regarding abdominal wall [...] with leakage Changing appliance every 3-4 days BRIM SHAPER shunt has been functioning well He eats [...] seen. Exam limited by severe scoliosis. A BRIM SHAPER shunt on the left side is seen [...] 4. Gastrostomy tube exchange with new 18 [place] 2.0 cm Lele-Sahni button 5. Modifier 22 for the patient's severe scoliosis, obesity, and multiple prior abdominal surgeries. 6. Modifier [address] Sheikh acting as publisher assistant. 01/03/20 Dr. Blackburn Right percutaneous nephrolithotomy >2 cm total stone burden Cystourethroscopy Laser litholapaxy >2.5 cm total stone burden Fluoroscopic interpretation 01/29/19 Dr. Roel ARGUELLO 1. Percutaneous endoscopic placement of gastrostomy tube (20 [place]er, depth 2 cm). 2. Limited exploratory laparotomy [...] No history of dysuria, frequency or incontinence INTERNAL CONTROLS CONSULTANT: NA MUSCULOSKELETAL: Negative for joint pain or [...] Level: 4 - Moderate documented in this encounterAkron [facility]04-[facility]-2023 Miscellaneous Notes* Telephone Encounter - Matthew Johnson MD - 02/03/2023 1:01 PM EDT Urology Telephone Note I spoke with patient's mother over the phone today. He is receiving gastric feeds from [facility], but they ran out of the feed he was previously taking. They have a similar alternative, and she wanted to know if this was acceptable. I explained that I am not a tag marker and that it would take too long to have him seen by [facility] and arrange home feed delivery, given his surgery isnext month. I recommended that [facility] the alternative feed [facility] and try to get a hold of the nutritional team there. After his surgery in February, we will consult inpatient nutrition here to begin the transition to [facility]. She expressed understanding and agreement with the plan. Matthew Johnson Jr., MD Reconstructive Urology Fellow documented in this encounterAkron [facility]04-13-2023 Miscellaneous Notes* Telephone Encounter - Matthew Johnson MD - 02/02/2023 3:12 PM EDT Urology Telephone Note Attempted to call patient multiple times today but have not received an answer. Matthew Johnson Jr., MD Reconstructive Urology Fellow documented in this encounterAkron [facility]02-27-2023 [facility] History of Present illness Narrative* Marifer Dowd MD - 12/19/2022 1:27 PM EST Here to discuss surgery. Complicated patient with spina bifida, NIGEL, transverse colostomy, mitrofanoff, BRIM SHAPER shunt here for discussion regarding abdominal wall [...] 19, 2022 1:30 PM documented in this encounterAkron Children[facility]02-27-2023 Nurse Note* Soham Escobar - 12/19/2022 11:16 AM EST What is the reason for your visit today? Follow up Who is your referring physician? Dr. Dowd Are you having poor oral intake? NO Have you had unintentional weight loss of 15 lbs/7 Kg in the last 3-6 months? NO Bowels: regular Wound: clean & dry Temperature: No Drains: No documented in this encounterAkron [facility]10-10-2022 [facility] History of Present illness Narrative* Marifer Dowd MD - 08/01/2022 2:32 PM EDT I have seen and evaluated the patient and discussed the case with the resident physician. I agree with the assessment and plan as documented in the resident s note. Complicated situation with pleasant patient and family. History significant for spina bifida. Has Gtube, BRIM SHAPER shunt, Mitrofanoff, end transverse colostomy. 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 In 2018, the decision was made to do a [...] 01, 2022, 12:07 PM documented in this encounterAkron [facility]10-10-2022 Nurse Note* Stalin De La Cruz [...] Temperature: No Drains: No documented in this encounterAkron [facility]09-03-2022 Emergency department Note * Lashon Gonzalez RN - 06/25/2022 4:29 PM EDT Discharge instructions and medications reviewed with parents. Verbalized understanding. Denies any questions or concerns at this time. Pt discharged home in no acute distress at this time. [facility]09-03-[facility] Emergency department Note* Lashon Gonzalez RN [...] MMK performed by Chris Cobb MD at [facility] OR ADENOIDECTOMY BLADDER SURGERY N/A 10/03/2016 VESICOLOTHOTOMY possible lithoclast performed by Chris Cobb MD at [facility] OR COLOSTOMY N/A 01/29/2019 COLOSTOMY performed by Perry Sheikh MD at [facility] OR GASTROSTOMY N/A 01/29/2019 ENDOSCOPIC GASTROSTOMY PERCUTANEOUS performed by Perry Sheikh MD at [facility] OR GASTROSTOMY 05/16/2019 gastrostomy tube removal performed by Perry Sheikh MD at [facility] OR HERNIA REPAIR HIP FUSION Right 05/16/2019 RIGHT HIP DISARTICULATION VERSUS CASTLE PROXIMAL FEMORAL RESECTION AND FLAP COVERAGE performed by Cruz Ramires MD at [facility] OR KIDNEY STONE SURGERY N/A 02/15/2018 CYSTOSCOPY WITH LITHOLAPAXY/VESICOLITHOTRIPSY/CYSTOLITHOPAXY & HOLMIUM LASER performed by Chris Cobb MD at [facility] OR LAMINECTOMY 05/24/2005 Untethering of spinal cord LAPAROTOMY N/A 11/04/2020 LAPAROTOMY, EXPLORATORY, POSSIBLE BOWEL RESECTION, POSSIBLE PARASTOMAL HERNIA REPAIR, POSSIBLE OSTOMY REVISION performed by Ronnie Mendez MD at [facility] OR LITHOTRIPSY N/A 12/21/2017 cystoscopy and Holmium laser lithotripsy of bladder calculi possible vesicolithotomy performed by Chris Cobb MD at [facility] OR MYELOMENINGOCELE REPAIR ORTHOPEDIC SURGERY 06/26/2007 I & D of spinal wound with DuraSeal control of spinal leak ORTHOPEDIC SURGERY 09/18/2007 Removal of distal end of both posterior spinal rods ORTHOPEDIC SURGERY 01/25/2008 Incision, debridement and drainage of spinal infection, closure over Tobramycin, calcium sulfate pellets OTHER SURGICAL HISTORY bowens stoma/ mitroffanof OTHER SURGICAL HISTORY vesicolothomy PICC PLACEMENT TN ANESTH,UGI ENDOSCOPY TN UROLOGY SURGERY PROCEDURE UNLISTED RECONSTRUCTIVE FLAP SURGERY 05/16/2019 EXCISION OF ISCHIAL PRESSURE ULCER WITH FLAP CLOSURE performed by Trent Issa MD at [facility] OR SPINAL FUSION 06/06/2007 RSF with instrumentation T2 to sacrum SPINAL FUSION 05/26/2010 Staged (single day) posterior fusion and anterior interbody fusion with instrumentation TONSILLECTOMY TONSILLECTOMY AND ADENOIDECTOMY UPPER GASTROINTESTINAL ENDOSCOPY N/A 06/20/2017 ENDOSCOPY UPPER (FLEXIBLE) with biopsies performed by Augustin Rey MD at [facility] OR VENTRICULOPERITONEAL SHUNT Pediatric History Patient Parents/Guardians Marcos Aguirre (Self/Guardian) CarlaWendi Justine (Mother) Jae Aguirren (Father) Other Topics Concern Not on file [...] Pride - 06/25/2022 2:18 PM EDT Bed: 03E Expected date: 06/25/22 Expected time: 12:56 PM Means of arrival: Car Comments: REF Sending MD: Dae SR Age/: 89 Chief Complaint: abdominal pain Call back?: no # to call back: Patient initials: D.D * Note entered by Communication Center Staff * documented in this encounterSt. [facility]09-[facility]-2022 Emergency department Note* Lashon Gonzalez RN - 06/25/2022 4:25 PM EDT Resident at bedside further discussing hernia dx and providing education to patient and mom at thistime. Homegoing instructions and when to return to ED reviewed in detail. Mom and patient verbalized understanding. [facility]09-03[facility]2022 Hospital Discharge instructions* Discharge Instructions* Laurent Puga MD - 06/25/2022 4:11 PM EDT Recommending monitoring for any changes to hernia or other symptoms associated with obstruction andreturning if present. Otherwise recommend establishing with adult General Surgery provider to evaluate hernia repair in the outpatient setting. documented in this encounterSt. Anthony's Hospital09-03-2022 Emergency department Note* Lashon Gonzalez RN - 06/25/2022 4:00 PM EDT Resident at bedside. [facility] Physician Emergency department Note* Alina Tatum, DO - 06/25/2022 3:02 PM EDT Images from the original note were not included. Marcos Reginaldo Carla : 1995 Chief Complaint Patient presents with [...] MMK performed by Chris Cobb MD at [facility] OR ADENOIDECTOMY BLADDER SURGERY N/A 10/03/2016 VESICOLOTHOTOMY possible lithoclast performed by Chris Cobb MD at [facility] OR COLOSTOMY N/A 01/29/2019 COLOSTOMY performed by Perry Sheikh MD at [facility] OR GASTROSTOMY N/A 01/29/2019 ENDOSCOPIC GASTROSTOMY PERCUTANEOUS performed by Perry Sheikh MD at [facility] OR GASTROSTOMY 05/16/2019 gastrostomy tube removal performed by Perry Sheikh MD at [facility] OR HERNIA REPAIR HIP FUSION Right 05/16/2019 RIGHT HIP DISARTICULATION VERSUS CASTLE PROXIMAL FEMORAL RESECTION AND FLAP COVERAGE performed by Cruz Ramires MD at [facility] OR KIDNEY STONE SURGERY N/A 02/15/2018 CYSTOSCOPY WITH LITHOLAPAXY/VESICOLITHOTRIPSY/CYSTOLITHOPAXY & HOLMIUM LASER performed by Chris Cobb MD at [facility] OR LAMINECTOMY 05/24/2005 Untethering of spinal cord LAPAROTOMY N/A 11/04/2020 LAPAROTOMY, EXPLORATORY, POSSIBLE BOWEL RESECTION, POSSIBLE PARASTOMAL HERNIA REPAIR, POSSIBLE OSTOMY REVISION performed by Ronnie Mendez MD at [facility] OR LITHOTRIPSY N/A 12/21/2017 cystoscopy and Holmium laser lithotripsy of bladder calculi possible vesicolithotomy performed by Chris Cobb MD at [facility] OR MYELOMENINGOCELE REPAIR ORTHOPEDIC SURGERY 06/26/2007 I & D of spinal wound with DuraSeal control of spinal leak ORTHOPEDIC SURGERY 09/18/2007 Removal of distal end of both posterior spinal rods ORTHOPEDIC SURGERY 01/25/2008 Incision, debridement and drainage of spinal infection, closure over Tobramycin, calcium sulfate pellets OTHER SURGICAL HISTORY bowens stoma/ mitroffanof OTHER SURGICAL HISTORY vesicolothomy PICC PLACEMENT TN ANESTH,UGI ENDOSCOPY TN UROLOGY SURGERY PROCEDURE UNLISTED RECONSTRUCTIVE FLAP SURGERY 05/16/2019 EXCISION OF ISCHIAL PRESSURE ULCER WITH FLAP CLOSURE performed by Trent Issa MD at [facility] OR SPINAL FUSION 06/06/2007 RSF with instrumentation T2 to sacrum SPINAL FUSION 05/26/2010 Staged (single day) posterior fusion and anterior interbody fusion with instrumentation TONSILLECTOMY TONSILLECTOMY AND ADENOIDECTOMY UPPER GASTROINTESTINAL ENDOSCOPY N/A 06/20/2017 ENDOSCOPY UPPER (FLEXIBLE) with biopsies performed by Augustin Rey MD at [facility] OR VENTRICULOPERITONEAL SHUNT Pediatric History Patient Parents/Guardians [...] signed: 8:31 PM 06/25/[address] [facility] Work Phone: [phone]) 860-206709-03-2022 Emergency department Triage note* Lashon Hsu RN [...] sounds regular, lungs ctab, mmm, skin wpd. [facility]09[facility]03[facility] Emergency department Note* Rhett Pirde - 06/25/2022 2:18 PM EDT Bed: 03E Expected date: 06/25/22 Expected time: 12:56 PM Means of arrival: Car Comments: REF Sending MD: Dae SR Age/: 89 Chief Complaint: abdominal pain Call back?: no # to call back: Patient initials: D.D * Note entered by Communication Center Staff * [facility]08[facility] Emergency department Note* Marina Chun RN - 06/19/2022 2:40 PM EDT Pt discharged home per resident. [facility]08-28-[facility] Emergency department Note* Marina Chun RN [...] obtain weight viabed scale. documented in this encounterSt. Anthony's Hospital08-28-2022 Hospital Discharge instructions* Discharge Instructions* Joseph Dolan DO - 06/19/2022 12:32 PM EDT Please call your GI doctor to be evaluated. Come back to the ED for new or worsening symptoms such as worsening vomiting, diarrhea, abdominal distension. * Attachments The following attachments cannot be sent through Care Everywhere. * Adult Advisor: Stomach Flu (Guyanese) documented in this encounterSt. Anthony's Hospital08-28-2022 Emergency department Triage note* Lashon Garduno RN - 06/19/2022 10:55 AM EDT Alert and fully oriented 26 year old presenting with concern for his colostomy might be blocked and intermittent emesis since Monday. Also has a g-tube. Respirations easy and even. Belly soft and distended. Decreased output in colostomy bag. MMM. Cap refill <2 seconds. Please obtain weight viabed scale. [facility]06-07-2022 NoteHNO ID: [id number] Author: Kelsie Giraldo MD Service: ? Author Type: Physician Type: Progress Notes Filed: 03/29/2022 9:06 AM Note Text:[facility]06-[facility] Instructions* Patient Instructions* Mando Gibbs MD - 03/26/2022 9:06 AM EDT Consider EMG/NCS to assess for ulnar neuropathy at elbow. Elbow pad to cushion ulnar nerve on arm rest F/U as needed documented in this encounterAkron Children'[facility]06-03-2022 NoteAv[facility] Note[facility] Note[facility] History of Present illness Narrative* Mando Gibbs MD - 03/25/2022 11:21 AM EDT Images from the original note were not included. PM&R/SCI Medicine Attending Outpatient Note Name: Marcos Aguirre I was asked to evaluate (Marcos Sandoval) by (Dr Giraldo) for recommendations regarding management of his/her rehabilitation needs. My findings and recommendations will be communicated through the [facility]. Date of Service: 03/25/22 Chief [...] Surgical History Myelomengocele s/p repair Hydrocephalus s/p BRIM SHAPER shunt Tethered Cord Syndrome s/p release Scoliosis [...] and myocardial Social History Vocation: works at [employer] Living Arrangements:[facility] No Smoke, EtOh, Drugs ROS He is [...] emotion wheels and Comfort Inception cushion . 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 PCP: Dr. Gramajo who recently reclocated--looking for a new PCP. History of spina bifida with history of hydrocephalus and BRIM SHAPER shunt. History of multiple pressure wounds with [...] which included preparing to see the patient, [id number] patient care, completing clinical documentation, obtaining and/or reviewing separately obtained history and performing a medically appropriate examination. Nikita Gauthier MD Associate Staff Physician Clinical Research Program Managerradiology technologist [facility] Internal Medicine Pediatrics [address] [place] [address] Office: documented in this encounterAkron Children'S Hospital06-03-2022 Miscellaneous Notes* Letter - Kelsie Giraldo MD - 03/25/2022 12:00 AM EDT March 29, 2022 Nikita Balderas M.D. NAME: MARCOS AGUIRRE CLINIC NO.: [id number] DATE OF SERVICE: 03/25/[address] Balderas: [...] was seen by Dr. Nikita Castro from [employer] who seemed to be fairly satisfied with how he was doing from nutritional standpoint.He did recommend nutritional consultation which can be done virtually to help manage issues pertaining to the tube feeds. He was also seen by our hydraulic technician, Dr. Kang Gibbs, who recommended elbow pads. [...] Giraldo M.D. Date Dictated: 03/29/2022 Date Typed: acu 03/30/2022 JOB# [id number] clinic notes from myself, Dr. Castro, Dr. Flores dated March 25, 2022, ultrasound report dated March 25, 2022. documented in this encounterAkron Children'[facility] Hospital01-24-2022 Miscellaneous Notes* Telephone Encounter - Batool Ruiz APRN.KRISTI - 11/15/2021 12:12 PM EST Please review pre-op urine culture report. Please advise. Culture Abnormal 50,000 - <100,000 CFU/ml Klebsiella pneumoniae P Culture Abnormal 50,000 - <100,000 CFU/ml Escherichia coli P Resulting Agency [facility] Susceptibility Klebsiella pneumoniae Escherichia coli [...] <=20 Susceptible <=20 Susceptible documented in this encounterAkron Children'S Hospital03-14-2020 History of Past illness Narrative* Problem Noted Date Resolved Date Sepsis 01/04/2020 01/08/2020 Last Assessment & Plan: Assessment: HDS, leukocytosis improving - Last urine culture was in 11/29/19 positive for pseudomonas susceptible to Zosyn - Received Ceftriaxone intraop PLAN: - Vanc/Zosyn/Fluc - ID consulted - BCx and UCx pending documented as of this encounter (statuses as of 03/26/2022) [facility] of Past illness Narrative* Problem Noted Date Resolved Date Sepsis 01/04/2020 01/08/2020 Last Assessment & Plan: Assessment: HDS, leukocytosis improving - Last urine culture was in 11/29/19 positive for pseudomonas susceptible to Zosyn - Received Ceftriaxone intraop PLAN: - Vanc/Zosyn/Fluc - ID consulted - BCx and UCx pending documented as of this encounter (statuses as of 03/26/2022) [facility] of Past illness Narrative* Problem Noted Date Resolved Date Sepsis 01/04/2020 01/08/2020 Last Assessment & Plan: Assessment: HDS, leukocytosis improving - Last urine culture was in 11/29/19 positive for pseudomonas susceptible to Zosyn - Received Ceftriaxone intraop PLAN: - Vanc/Zosyn/Fluc - ID consulted - BCx and UCx pending documented as of this encounter (statuses as of 03/27/2022) [facility] of Past illness Narrative* Problem Noted Date Resolved Date Sepsis 01/04/2020 01/08/2020 Last Assessment & Plan: Assessment: HDS, leukocytosis improving - Last urine culture was in 11/29/19 positive for pseudomonas susceptible to Zosyn - Received Ceftriaxone intraop PLAN: - Vanc/Zosyn/Fluc - ID consulted - BCx and UCx pending documented as of this encounter (statuses as of 03/28/2022) [facility] of Past illness Narrative* Problem Noted Date Resolved Date Sepsis 01/04/2020 01/08/2020 Last Assessment & Plan: Assessment: HDS, leukocytosis improving - Last urine culture was in 11/29/19 positive for pseudomonas susceptible to Zosyn - Received Ceftriaxone intraop PLAN: - Vanc/Zosyn/Fluc - ID consulted - BCx and UCx pending documented as of this encounter (statuses as of 03/29/2022) [facility] History of Past illness Narrative* Problem Noted Date Resolved Date Sepsis 01/04/2020 01/08/2020 Last Assessment & Plan: Assessment: HDS, leukocytosis improving - Last urine culture was in 11/29/19 positive for pseudomonas susceptible to Zosyn - Received Ceftriaxone intraop PLAN: - Vanc/Zosyn/Fluc - ID consulted - BCx and UCx pending documented as of this encounter (statuses as of 03/30/2022) [facility] History of Past illness Narrative* Problem Noted Date Resolved Date Sepsis 01/04/2020 01/08/2020 Last Assessment & Plan: Assessment: HDS, leukocytosis improving - Last urine culture was in 11/29/19 positive for pseudomonas susceptible to Zosyn - Received Ceftriaxone intraop PLAN: - Vanc/Zosyn/Fluc - ID consulted - BCx and UCx pending documented as of this encounter (statuses as of 08/01/2022) [facility] History of Past illness Narrative* Problem Noted Date Resolved Date Sepsis 01/04/2020 01/08/2020 Last Assessment & Plan: Assessment: HDS, leukocytosis improving - Last urine culture was in 11/29/19 positive for pseudomonas susceptible to Zosyn - Received Ceftriaxone intraop PLAN: - Vanc/Zosyn/Fluc - ID consulted - BCx and UCx pending documented as of this encounter (statuses as of 09/29/2022) [facility] History of Past illness Narrative* Problem Noted Date Resolved Date Sepsis 01/04/2020 01/08/2020 Last Assessment & Plan: Assessment: HDS, leukocytosis improving - Last urine culture was in 11/29/19 positive for pseudomonas susceptible to Zosyn - Received Ceftriaxone intraop PLAN: - Vanc/Zosyn/Fluc - ID consulted - BCx and UCx pending documented as of this encounter (statuses as of 12/19/2022) [facility] History of Past illness Narrative* Problem Noted Date Resolved Date Sepsis 01/04/2020 01/08/2020 Last Assessment & Plan: Assessment: HDS, leukocytosis improving - Last urine culture was in 11/29/19 positive for pseudomonas susceptible to Zosyn - Received Ceftriaxone intraop PLAN: - Vanc/Zosyn/Fluc - ID consulted - BCx and UCx pending documented as of this encounter (statuses as of 12/21/2022) [facility] History of Past illness Narrative* Problem Noted Date Resolved Date Sepsis 01/04/2020 01/08/2020 Last Assessment & Plan: Assessment: HDS, leukocytosis improving - Last urine culture was in 11/29/19 positive for pseudomonas susceptible to Zosyn - Received Ceftriaxone intraop PLAN: - Vanc/Zosyn/Fluc - ID consulted - BCx and UCx pending documented as of this encounter (statuses as of 02/03/2023) [facility] History of Past illness Narrative* Problem Noted Date Resolved Date Sepsis 01/04/2020 01/08/2020 Last Assessment & Plan: Assessment: HDS, leukocytosis improving - Last urine culture was in 11/29/19 positive for pseudomonas susceptible to Zosyn - Received Ceftriaxone intraop PLAN: - Vanc/Zosyn/Fluc - ID consulted - BCx and UCx pending documented as of this encounter (statuses as of 02/04/2023) [facility] History of Past illness Narrative* Problem Noted Date Resolved Date Sepsis 01/04/2020 01/08/2020 Last Assessment & Plan: Assessment: HDS, leukocytosis improving - Last urine culture was in 2 positive for pseudomonas susceptible to Zosyn - Received Ceftriaxone intraop PLAN: - Vanc/Zosyn/Fluc - ID consulted - BCx and UCx pending documented as of this encounter (statuses as of 02/16/2023) [facility] History of Past illness Narrative* Problem Noted Date Resolved Date Sepsis 01/04/2020 01/08/2020 Last Assessment & Plan: Assessment: HDS, leukocytosis improving - Last urine culture was in 11/29/19 positive for pseudomonas susceptible to Zosyn - Received Ceftriaxone intraop PLAN: - Vanc/Zosyn/Fluc - ID consulted - BCx and UCx pending documented as of this encounter (statuses as of 02/16/2023) [facility] History of Past illness Narrative* Problem Noted Date Resolved Date Sepsis 01/04/2020 01/08/2020 Last Assessment & Plan: Assessment: HDS, leukocytosis improving - Last urine culture was in 11/29/19 positive for pseudomonas susceptible to Zosyn - Received Ceftriaxone intraop PLAN: - Vanc/Zosyn/Fluc - ID consulted - BCx and UCx pending documented as of this encounter (statuses as of 02/17/2023) [facility]ios [facility] Note Date/Time June 07, 2025 12 :11pm [facility] Medical Records Department [address] [place] [address] Emergency Department Summary 06/07/25 MR#: [id number] Acct: [id number] Name: MARCOS AGUIRRE Rep #:[id number] : 1995 29 From: Joseph Rios MD PCP: Dr. Nikita Gramajo, DO Status:REG ER Location: ED HPI History of Present Illness Chief Complaint: Complaint Detail of Chief Complaint: Temperature of 104.4 at home. Informant: patient and parent Onset/Context/Timing Onset: Today Context: Sudden Onset Timing: Intermittent Quality: Documented temperature greater than 104. Shaking chills and abdominal dist Location: Generalized and abdomen Current Severity: Gone Maximum Severity: Moderate Worsened by: Mom presumed UTI Relieved by: Antipyretic Associated Symptoms Associated Symptoms: Headache Narrative Narrative: Patient is a 29-year-old male. Patient was seen by Alexa Wallace for pulmonary appointment on June 05. Note was reviewed. Assessment was chronic respiratory failure with hypoxia and hypercapnia. Plan was noninvasive ventilatory support for sleep and rescue. Spina bifida with presence of hydrocephalus., Thoracic region, hypertension and chronic fatigue. 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 Chronic respiratory failure with hypoxia and hypercapnia Neuromuscular respiratory weakness Chronic respiratory failure requiring treatment with nocturnal BPAP by mask Home Medications ?Medication ?Instructions ?Recorded ?Last Taken ?Type nut.tx impaired digestive ml PO 12/01/22 Unknown Histo ry fxn-fiber 0.07 gram-1.5 kcal/mL oral liquid (Vital Peptide 1.5 Shine) cholecalciferol (vitamin D3) 10 10 mcg PO QDAY 5 06/06/25 History mcg (400 unit) chewable tablet diltiazem HCl 240 mg capsule,24 240 mg PO QDAY 5 06/06/25 History hr,extended release acetaminophen 325 mg capsule 325 mg PO Q6H PRN fever o r pain 06/07/25 06/07/25 History Allergy/AdvReac Type Severity Reaction Status Date / Time bacitracin Allergy Mild unknown Verified 06/07/25 10:38 latex Allergy Unknown Verified 06/07/25 10:38 levofloxacin (Levofloxacin) Allergy Rash Verified 06/07/25 10:38 sulfamethoxazole (From Allergy Rash Verified 06/07/25 10:38 Bactrim) trimethoprim (From Bactrim) Allergy Rash Verified 06/07/25 10:38 Social History Smoking Status: Never smoker ROS ROS ED Constitutional Constitutional ED: Reports chills, fever(s) and sweats; Denies subjective or weight loss Eyes Eyes: Denies blurry vision, change in vision or diplopia ENT ENT ED: Denies ear pain, rhinorrhea or sore throat Cardiovascular Cardiovascular: Denies chest pain or palpitations Respiratory/Chest Respiratory/Chest: Denies cough, dyspnea or dyspnea on exertion Gastrointestinal Gastrointestinal: Reports other Details: Patient is making stool. There is stool in his colostomy and he is passing gas. Do not suspect his distention is due to an obstruction. ; Denies abdominal pain, diarrhea, nausea or vomiting Musculoskeletal Musculoskeletal: Reports other Details: Patient has no sensation from the waist down. ; Denies arthralgias, back pain or myalgias Integumentary Reports other Details: Mom states there is a small decubitus. It does not appear infected. ; Denies rash Neurologic Neurologic: Reports headache(s); Denies paresthesias Hematologic/Lymphatic Hematologic/Lymphatic: Reports systems reviewed and no addt'l complaints, exceptas documented EXAM Physical Exam Const Vital Signs: 06/07/25 09:55 Temperature 99.1 F Temperature Source Oral Pulse Rate 131 H Respiratory Rate 18 Blood Pressure 126/75 H Blood Pressure Mean 92 Pulse Ox 95 Oxygen Delivery Method Room Air Positive well nourished and well developed General Appearance ED: well developed and NAD; Negative for cyanotic, diaphoretic or pallor HEENT Reports moist mucous membranes HEENT Narrative: Head is atraumatic no cephalic. Ears normal. Nares patent. Eyes PERRL and EOMs intact bilaterally General Eye ED: Negative for pale conjunctiva or scleral icterus Neck no lymphadenopathy, supple and no JVD Chest Wall inspection of chest normal and palpation of chest normal Resp normal respiratory effort and clear to auscultation bilaterally Cardio regular rhythm, S1 normal heart sound, S2 normal heart sound and no murmurs Rate: tachycardic GI GI Narrative: Abdomen is distended slightly tympanitic. He has no sensation. There are multiple well-healed scars. He has a colostomy noted right lower quadrant. Extremity Extremity Narrative: AKA right lower extremity. Atrophy of the left lower extremity. Neuro oriented x3 and CN's II-XII intact bilaterally Sensorium / Orientation: alert Psych mental status grossly normal Skin no rashes or lesions noted and skin turgor normal General Skin Exam: elasticity normal; Negative for jaundice or pallor Sepsis Attestation Possible Source of Sepsis: Genitourinary (Patient does not have any endorgan dysfunction.) MDM MDM MDM Narrative Medical decision making narrative: With temperature of 104.4. Sepsis workup was undertaken which included CBC, competence of metabolic panel, lactate, UA and blood cultures. Mother believes the source is probably his urine. He has debris noted in the Wade collection tubing. Patient was treated with meropenem per sepsis order set since he has a chronic indwelling Wade. Patient has SIRS with no endorgan dysfunction. Therefore he does not have sepsis. Hence, reason no fluids were administered i.e. 30 cc/kg bolus. Lab Data Attestation: I reviewed the patient's lab results. Lab results narrative: White count is elevated at 19.4 thousand. He does have a shift. Competence of metabolic panel is remarkable glucose 134 with a normal CO2 anion gap. Lactate is less than 1. Labs: Laboratory Results - last 24 hr 06/07/25 06/07/25 10:30 10:50 WBC 19.4 H RBC 4.98 Hgb 14.2 Hct 41.8 MCV 83.9 MCH 28.5 MCHC 34.0 RDW Std Deviation 40.2 RDW Coeff of Leroy 13.1 Plt Count 211 MPV 9.2 Immature Gran % (Auto) 0.600 Neut % (Auto) 86.1 H Lymph % (Auto) 4.3 L Hamblen % (Auto) 8.8 Eos % (Auto) 0.0 Baso % (Auto) 0.2 Absolute Neuts (auto) 16.7 H Absolute Lymphs (auto) 0.83 Nucleated RBC % 0 Differential Comment SCANNED Sodium 133 Potassium 3.5 Chloride 95 L Carbon Dioxide 23.7 Anion Gap 14 BUN 13 Creatinine 0.83 Estim Creat Clear Calc 97.19 Est GFR (MDRD) Non-Af 123 BUN/Creatinine Ratio 15.7 Glucose 134 H Lactic Acid < 1.0 Calcium 9.5 Total Bilirubin 0.78 AST 20 ALT 35 Alkaline Phosphatase 121 Total Protein 8.0 Albumin 3.9 Globulin 4.1 Albumin/Globulin Ratio 1.0 Urine Color Yellow Urine Clarity Cloudy Urine pH 8.0 Ur Specific [place] 1.010 Urine Protein 100 H Urine Glucose (UA) Normal Urine Ketones 15 H Urine Occult Blood 250 H Urine Nitrite Positive H Urine Bilirubin Negative Urine Urobilinogen Normal Ur Leukocyte Esterase 500 H Urine RBC 5-10 SEEN Urine WBC 50-100 SEEN Ur Squamous Epith Cells 0-5 SEEN Urine Bacteria 2+ Urine Mucus 0 SEEN Management Discussion w/another healthcare provider: Hospitalist (Spoke with Dr. Qiu who accepted patient. He would like patient to go to [facility] versus [facility] Treatment and Re-Evaluation :: Patient and mother were informed that he has a complicated urine tract infection. Plan is IV antibiotics admit to [facility]. Mother would prefer that he be admitted to [facility]. Discharge Plan Triage Chief Complaint: Complaint ED Provider: Joseph Rios Dx/Rx/DC Orders Clinical Impression: Complicated urinary tract infection, SIRS (systemic inflammatory response syndrome), Leukocytosis, Sinus tachycardia seen on monitoring tech, Acute hyperglycemia Prescriptions: No Action Vital Peptide 1.5 Shine 0.07 gram- 1.5 kcal/mL liquid PO diltiazem HCl 240 mg capsule,extended release 24 hr 240 mg PO QDAY cholecalciferol (vitamin D3) 10 mcg (400 unit) tablet,chewable 10 mcg PO QDAY acetaminophen 325 mg capsule 325 mg PO Q6H PRN (Reason: fever or pain) Primary Care Provider: Nikita Gramajo Referrals: Nikita Gramajo DO [Primary Care Provider] - Print Language: Guyanese What to do if you have Problems For any increased pain, shortness of breath, bleeding, nausea or vomiting, chestpain, or any unexpected problems, contact your Primary Care Provider. Call [facility] ([phone]) or report to the closest Emergency Room. Call 911 if necessary. 06/07/25 1211 <Electronically signed by Joseph Rios MD> Cosigner Signature (if applicable): CC: Dr. Nikita Gramajo DO ~ Signed [facility] Work Phone: Evaluation + Plan note Future Appointments Appointment Date:11/09/2022 03:00:00 PM Scheduled Provider:NIKITA GRAMAJO DO Location:[place] Appointment Type:[facility] Evaluation + Plan note Future Appointments Appointment Date:01/01/2025 02:00:00 PM Scheduled Provider:NIKITA GRAMAJO DO Location:[place] Appointment Type:[facility] Evaluation note* Diagnosis Neurogenic bladder Neurogenic bladder, NOS documented in this encounter [facility] note* Diagnosis Paraplegia (HCC)- Primary Paraplegia Neurogenic bowel Neurogenic bladder Neurogenic bladder, NOS Urinary retention Retention of urine, unspecified 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 Diagnosis Ulnar neuropathy of both upper extremities- Primary Lesion of ulnar nerve documented in this encounter [facility] note* Diagnosis Gastroenteritis- Primary Other and unspecified noninfectious gastroenteritis and colitis documented in this encounter [facility] note* Diagnosis Abdominal wall hernia- Primary Ventral hernia, unspecified, without mention of obstruction or gangrene documented in this encounter [facility] note* Diagnosis Parastomal hernia with obstruction and without gangrene- Primary Hernia of unspecified site, with obstruction documented in this encounter [facility] note* Diagnosis Parastomal hernia without obstruction or gangrene- Primary Hernia of unspecified site of abdominal cavity without mention of obstruction or gangrene documented in this encounter [facility] note* Diagnosis Preoperative examination- Primary Preoperative examination, unspecified Parastomal hernia without obstruction or gangrene Hernia of unspecified site of abdominal cavity without mention of obstruction or gangrene Preoperative examination Preoperative examination, unspecified Parastomal hernia without obstruction or gangrene Hernia of unspecified site of abdominal cavity without mention of obstruction or gangrene documented in this encounter [facility] note* Diagnosis Onset Date Resolution Status Chronic respiratory failure requiring treatment with nocturnal BPAP by mask acute Neuromuscular respiratory weakness acute Obstructive Sleep Apnea-Hypopnea Syndrome noneactive [facility] Work Phone: Evaluation note* Diagnosis Colostomy [...] obstruction or gangrene [facility] this [facility]* Diagnosis Pre-op evaluation- Primary Preoperative examination, unspecified NIGEL (obstructive sleep apnea) Obstructive sleep apnea (adult) (pediatric) Preoperative examination Preoperative examination, unspecified Parastomal hernia without obstruction or gangrene Hernia of unspecified site of abdominal cavity without mention of obstruction or gangrene G tube feedings (HCC) Gastrostomy status Colostomy present (HCC) Spina bifida of lumbosacral region with hydrocephalus ([facility]) S/P ventriculoperitoneal shunt Presence of cerebrospinal fluid drainage device Neurogenic bladder Neurogenic bladder, NOS Preoperative examination Preoperative examination, unspecified Parastomal hernia without obstruction or gangrene Hernia of unspecified site of abdominal cavity without mention of obstruction or gangrene [facility] Diagnosis Parastomal hernia without obstruction or gangrene- Primary Hernia of unspecified site of abdominal cavity without mention of obstruction or gangrene Preoperative examination Preoperative examination, unspecified Parastomal hernia without obstruction or gangrene Hernia of unspecified site of abdominal cavity without mention of obstruction or gangrene [facility] Diagnosis Cellulitis of buttock- Primary Cellulitis and abscess of buttock Suprapubic catheter (HCC) Other cystostomy status Neurogenic bladder Neurogenic bladder, NOS [facility] Diagnosis Post-operative state- Primary Other postprocedural status [facility] Diagnosis Screening for genitourinary condition Screening for other and unspecified genitourinary condition [facility] Diagnosis Encounter for follow-up- Primary [facility] Diagnosis Parastomal hernia without obstruction or gangrene- Primary Hernia of unspecified site of abdominal cavity without mention of obstruction or gangrene [facility] Diagnosis G tube feedings ([facility])- Primary Gastrostomy status [facility] Diagnosis Neurogenic bladder- Primary Neurogenic bladder, NOS Tachycardia Tachycardia, unspecified Recurrent UTI Urinary tract infection, site not specified Colostomy status ([facility]) Colostomy status [facility] Diagnosis Screening for genitourinary condition Screening for other and unspecified genitourinary condition [facility] Diagnosis Paraplegia ([facility])- Primary Paraplegia Neurogenic bowel Neurogenic bladder Neurogenic bladder, NOS Urinary retention Retention of urine, unspecified [facility] Diagnosis Neurogenic bladder- Primary Neurogenic bladder, NOS [facility] Diagnosis 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* Diagnosis Paraplegia (HCC)- Primary Paraplegia Open wound of tissue overlying spine, unspecified laterality, initial encounter Neurogenic bowel Neurogenic bladder Neurogenic bladder, NOS documented in this encounter [facility] note* Diagnosis Spina bifida, unspecified hydrocephalus presence, unspecified spinal region (HCC)- Primary G tube feedings (HCC) Gastrostomy status Screening for lipoid disorders Screening for iron deficiency anemia Vitamin D deficiency Unspecified vitamin D deficiency documented in this encounter [facility] note* Diagnosis Colostomy in place (HCC)- Primary Colostomy status documented in this encounter [facility] noteNo assessment information availableWEast [facility] Work Phone: [facility] note* Diagnosis Neurogenic bladder- Primary Neurogenic bladder, NOS documented in this encounter [facility] note* Diagnosis Renal stone- Primary Calculus of kidney Sepsis, due to unspecified organism, unspecified whether acute organ dysfunction present (HCC) G tube feedings (HCC) Gastrostomy status Spina bifida, unspecified hydrocephalus presence, unspecified spinal region (HCC) Therapeutic drug monitoring Encounter for therapeutic drug monitoring Sepsis ([facility]) Pre-operative examination- Primary Preoperative examination, unspecified Bladder [...] bifida, unspecified hydrocephalus presence, unspecified spinal region ([facility])- Primary documented in this encounter [facility] note* Diagnosis Renal stone- Primary Calculus of kidney Sepsis, due to unspecified organism, unspecified whether acute organ dysfunction present ([facility]) G tube feedings ([facility]) Gastrostomy status Spina bifida, unspecified hydrocephalus presence, unspecified spinal region ([facility]) Therapeutic drug monitoring Encounter for therapeutic drug monitoring Sepsis ([facility]) Pre-operative examination- Primary Preoperative examination, unspecified Bladder stone Other calculus in bladder Spina bifida of lumbosacral region with hydrocephalus ([facility]) Colostomy present ([facility]) G tube feedings ([facility]) Gastrostomy status Suprapubic catheter ([facility]) Other cystostomy status NIGEL (obstructive sleep apnea) Obstructive sleep apnea (adult) (pediatric) S/P ventriculoperitoneal shunt Presence of cerebrospinal fluid drainage device Chronic osteomyelitis of pelvic region, unspecified laterality ([facility]) Recurrent ventral hernia- Primary Incisional hernia without [...] Spina bifida of lumbosacral region with hydrocephalus ([facility]) S/P ventriculoperitoneal shunt Presence of cerebrospinal fluid drainage device Neurogenic bladder Neurogenic bladder, NOS Presence of suprapubic catheter (HCC)- Primary Other cystostomy status Neurogenic bladder Neurogenic bladder, NOS [facility] this [facility]* Diagnosis Renal stone- Primary Calculus of kidney Sepsis, due to unspecified organism, unspecified whether acute organ dysfunction present (HCC) G tube feedings (HCC) Gastrostomy status Spina bifida, unspecified hydrocephalus presence, unspecified spinal region ([facility]) Therapeutic drug monitoring Encounter for therapeutic drug monitoring Sepsis ([facility]) Pre-operative examination- Primary Preoperative examination, unspecified Bladder stone Other calculus in bladder Spina bifida of lumbosacral region with hydrocephalus (HCC) Colostomy present ([facility]) G tube feedings ([facility]) Gastrostomy status Suprapubic catheter (HCC) Other cystostomy status NIGEL (obstructive sleep apnea) Obstructive sleep apnea (adult) (pediatric) S/P ventriculoperitoneal shunt Presence of cerebrospinal fluid drainage device Chronic osteomyelitis of pelvic region, unspecified laterality ([facility]) Recurrent ventral hernia- Primary Incisional hernia without [...] Spina bifida of lumbosacral region with hydrocephalus ([facility]) S/P ventriculoperitoneal shunt Presence of cerebrospinal fluid drainage device Neurogenic bladder Neurogenic bladder, NOS Spina bifida with hydrocephalus, unspecified spinal region ([facility]) Cloudy urine Other nonspecific finding on examination of urine Sinusitis, unspecified chronicity, unspecified location [facility] Diagnosis Renal stone- Primary Calculus of kidney Sepsis, due to unspecified organism, unspecified whether acute organ dysfunction present (HCC) G tube feedings (HCC) Gastrostomy status Spina bifida, unspecified hydrocephalus presence, unspecified spinal region ([facility]) Therapeutic drug monitoring Encounter for therapeutic drug [...] Spina bifida of thoracolumbar region with hydrocephalus ([facility]) documented in this encounter [facility]* Diagnosis Renal stone- Primary Calculus of [...] Spina bifida of lumbosacral region with hydrocephalus ([facility]) S/P ventriculoperitoneal shunt Presence of cerebrospinal fluid drainage device Neurogenic bladder Neurogenic bladder, NOS Presence of suprapubic catheter (HCC) Other cystostomy status Neurogenic bladder Neurogenic bladder, NOS documented in this encounter [facility] note* Diagnosis Renal stone- Primary Calculus of kidney Sepsis, due to unspecified organism, unspecified whether acute organ dysfunction present (HCC) G tube feedings (HCC) Gastrostomy status Spina bifida, unspecified hydrocephalus presence, unspecified spinal region ([facility]) Therapeutic drug monitoring Encounter for therapeutic drug monitoring Sepsis ([facility]) Pre-operative examination- Primary Preoperative examination, unspecified Bladder [...] unspecified genitourinary condition documented in this encounter [facility]* Diagnosis Renal stone- Primary Calculus of kidney Sepsis, due to unspecified organism, unspecified whether acute organ dysfunction present (HCC) G tube feedings (HCC) Gastrostomy status Spina bifida, unspecified hydrocephalus presence, unspecified spinal region (HCC) Therapeutic drug monitoring Encounter for therapeutic drug monitoring Sepsis ([facility]) Pre-operative examination- Primary Preoperative examination, unspecified Bladder [...] tube feeding diet documented in this encounter [facility]* Diagnosis Renal stone- Primary Calculus of kidney Sepsis, due to unspecified organism, unspecified whether acute organ dysfunction present (HCC) G tube feedings (HCC) Gastrostomy status Spina bifida, unspecified hydrocephalus presence, unspecified spinal region ([facility]) Therapeutic drug monitoring Encounter for therapeutic drug monitoring Sepsis ([facility]) Pre-operative examination- Primary Preoperative examination, unspecified Bladder stone Other calculus in bladder Spina bifida of lumbosacral region with hydrocephalus (HCC) Colostomy present ([facility]) G tube feedings ([facility]) Gastrostomy status Suprapubic catheter (HCC) Other cystostomy [...] Spina bifida of lumbosacral region with hydrocephalus ([facility]) S/P ventriculoperitoneal shunt Presence of cerebrospinal fluid drainage device Neurogenic bladder Neurogenic bladder, NOS Spina bifida, unspecified hydrocephalus presence, unspecified spinal region (HCC)- Primary G tube feedings (HCC) Gastrostomy status Viral URI Acute upper respiratory infections of unspecified site Screening for lipoid disorders Screening for iron deficiency anemia Vitamin D deficiency Unspecified vitamin D deficiency documented in this encounter [facility]* Diagnosis Renal stone- Primary Calculus of kidney Sepsis, due to unspecified organism, unspecified whether acute organ dysfunction present ([facility]) G tube feedings ([facility]) Gastrostomy status Spina bifida, unspecified hydrocephalus presence, unspecified spinal region ([facility]) Therapeutic drug monitoring Encounter for therapeutic drug monitoring Sepsis ([facility]) Pre-operative examination- Primary Preoperative examination, unspecified Bladder stone Other calculus in bladder Spina bifida of lumbosacral region with hydrocephalus ([facility]) Colostomy present ([facility]) G tube feedings ([facility]) Gastrostomy status Suprapubic catheter ([facility]) Other cystostomy status NIGEL (obstructive sleep apnea) Obstructive sleep apnea (adult) (pediatric) S/P ventriculoperitoneal shunt Presence of cerebrospinal fluid drainage device Chronic osteomyelitis of pelvic region, unspecified laterality ([facility]) Recurrent ventral hernia- Primary Incisional hernia without [...] Spina bifida of lumbosacral region with hydrocephalus ([facility]) S/P ventriculoperitoneal shunt Presence of cerebrospinal fluid drainage device Neurogenic bladder Neurogenic bladder, NOS Nephrolithiasis- Primary Calculus of kidney [facility] Diagnosis Renal stone- Primary Calculus of kidney Sepsis, due to unspecified organism, unspecified whether acute organ dysfunction present (HCC) G tube feedings (HCC) Gastrostomy status Spina bifida, unspecified hydrocephalus presence, unspecified spinal region ([facility]) Therapeutic drug monitoring Encounter for therapeutic drug monitoring Sepsis ([facility]) Pre-operative examination- Primary Preoperative examination, unspecified Bladder stone Other calculus in bladder Spina bifida of lumbosacral region with hydrocephalus ([facility]) Colostomy present ([facility]) G tube feedings ([facility]) Gastrostomy status Suprapubic catheter ([facility]) Other cystostomy status NIGEL (obstructive sleep apnea) Obstructive sleep apnea (adult) (pediatric) S/P ventriculoperitoneal shunt Presence of cerebrospinal fluid drainage device Chronic osteomyelitis of pelvic region, unspecified laterality ([facility]) Recurrent ventral hernia- Primary Incisional hernia without mention of obstruction or gangrene Preoperative examination Preoperative examination, unspecified Parastomal hernia without obstruction or gangrene Hernia of unspecified site of abdominal cavity without mention of obstruction or gangrene NIGEL (obstructive sleep apnea) Obstructive sleep apnea (adult) (pediatric) G tube feedings ([facility]) Gastrostomy status Acute post-operative pain Metabolic acidosis [...] tube feedings (HCC) Gastrostomy status Colostomy present ([facility]) Spina bifida of lumbosacral region with hydrocephalus ([facility]) S/P ventriculoperitoneal shunt Presence of cerebrospinal fluid drainage device Neurogenic bladder Neurogenic bladder, NOS Recurrent UTI- Primary Urinary tract infection, site not specified Nephrolithiasis Calculus of kidney documented in this encounter [facility]* Diagnosis Renal stone- Primary Calculus of kidney Sepsis, due to unspecified organism, unspecified whether acute organ dysfunction present ([facility]) G tube feedings ([facility]) Gastrostomy status Spina bifida, unspecified hydrocephalus presence, unspecified spinal region ([facility]) Therapeutic drug monitoring Encounter for therapeutic drug monitoring Sepsis ([facility]) Pre-operative examination- Primary Preoperative examination, unspecified Bladder stone Other calculus in bladder Spina bifida of lumbosacral region with hydrocephalus ([facility]) Colostomy present (HCC) G tube feedings ([facility]) Gastrostomy status Suprapubic catheter (HCC) Other cystostomy status NIGEL (obstructive sleep apnea) Obstructive sleep apnea (adult) (pediatric) S/P ventriculoperitoneal shunt Presence of cerebrospinal fluid drainage device Chronic osteomyelitis of pelvic region, unspecified laterality ([facility]) Recurrent ventral hernia- Primary Incisional hernia without mention of obstruction or gangrene Preoperative examination Preoperative examination, unspecified Parastomal hernia without obstruction or gangrene Hernia of unspecified site of abdominal cavity without mention of obstruction or gangrene NIGEL (obstructive sleep apnea) Obstructive sleep apnea (adult) (pediatric) G tube feedings ([facility]) Gastrostomy status Acute post-operative pain Metabolic acidosis [...] of obstruction or gangrene G tube feedings ([facility]) Gastrostomy status Colostomy present ([facility]) Spina bifida of lumbosacral region with hydrocephalus ([facility]) S/P ventriculoperitoneal shunt Presence of cerebrospinal fluid drainage device Neurogenic bladder Neurogenic bladder, NOS Pre-op evaluation- Primary Preoperative examination, unspecified Spina bifida, unspecified hydrocephalus presence, unspecified spinal region ([facility]) NIGEL (obstructive sleep apnea) Obstructive sleep apnea (adult) (pediatric) S/P ventriculoperitoneal shunt Presence of cerebrospinal fluid drainage device Neurogenic bladder Neurogenic bladder, NOS Colostomy in place ([facility]) Colostomy status Kidney stone Calculus of kidney Hx of Tachycardia Tachycardia, unspecified Arnold-Chiari malformation ([facility]) Spina bifida with hydrocephalus, unspecified region Difficult intravenous access Other specified conditions influencing health status Pre-op exam- Primary Preoperative examination, unspecified Nephrolithiasis Calculus of kidney Nephrolithiasis Calculus of kidney documented in this encounter [facility]* Diagnosis Renal stone- Primary Calculus of kidney Sepsis, due to unspecified organism, unspecified whether acute organ dysfunction present ([facility]) G tube feedings ([facility]) Gastrostomy status Spina bifida, unspecified hydrocephalus presence, unspecified spinal region ([facility]) Therapeutic drug monitoring Encounter for therapeutic drug monitoring Sepsis ([facility]) Pre-operative examination- Primary Preoperative examination, unspecified Bladder stone Other calculus in bladder Spina bifida of lumbosacral region with hydrocephalus ([facility]) Colostomy present ([facility]) G tube feedings ([facility]) Gastrostomy status Suprapubic catheter ([facility]) Other cystostomy status NIGEL (obstructive sleep apnea) Obstructive sleep apnea (adult) (pediatric) S/P ventriculoperitoneal shunt Presence of cerebrospinal fluid drainage device Chronic osteomyelitis of pelvic region, unspecified laterality ([facility]) Recurrent ventral hernia- Primary Incisional hernia without mention of obstruction or gangrene Preoperative examination Preoperative examination, unspecified Parastomal hernia without obstruction or gangrene Hernia of unspecified site of abdominal cavity without mention of obstruction or gangrene NIGEL (obstructive sleep apnea) Obstructive sleep apnea (adult) (pediatric) G tube feedings ([facility]) Gastrostomy status Acute post-operative pain Metabolic acidosis [...] of obstruction or gangrene G tube feedings ([facility]) Gastrostomy status Colostomy present ([facility]) Spina bifida of lumbosacral region with hydrocephalus ([facility]) S/P ventriculoperitoneal shunt Presence of cerebrospinal fluid drainage device Neurogenic bladder Neurogenic bladder, NOS Pre-op evaluation- Primary Preoperative examination, unspecified Spina bifida, unspecified hydrocephalus presence, unspecified spinal region ([facility]) NIGEL (obstructive sleep apnea) Obstructive sleep apnea (adult) (pediatric) S/P ventriculoperitoneal shunt Presence of cerebrospinal fluid drainage device Neurogenic bladder Neurogenic bladder, NOS Colostomy in place ([facility]) Colostomy status Kidney stone Calculus of kidney Hx of Tachycardia Tachycardia, unspecified Arnold-Chiari malformation ([facility]) Spina bifida with hydrocephalus, unspecified region Difficult intravenous access Other specified conditions influencing health status Nephrolithiasis Calculus of kidney * Assessment & Plan Note - Betsy Seo APRN.CNP - 07/03/2025 11:49 AM EDT Associated Problem(s): Difficult intravenous access - Reports he has required US guidance in the past * Assessment & Plan Note - Betsy Seo APRN.CNP - 07/03/2025 8:49 AM EDT Associated Problem(s): Hx of Tachycardia - Managed on Cartia. - Last ECG 08/25/23 NSR 82bpm * Assessment & Plan Note - Betsy Seo APRN.CNP - 07/02/2025 11:29 AM EDT Associated Problem(s): Kidney stone - Surgery scheduled for 07/17/25 * Assessment & Plan Note - Betsy Seo APRN.CNP - 07/02/2025 11:26 AM EDT Associated Problem(s): Colostomy in place (HCC) - Colostomy and g-tube placed 01/29/19. - Hx of multiple ex-laps, with transverse colostomy and large ventral hernia, now S/P open abdominal wall reconstruction with takedown and re-siting of colostomy on 02/2023 * Assessment & Plan Note - Betsy Seo APRN.CNP - 07/02/2025 11:24 AM EDT Associated Problem(s): Neurogenic bladder - S/p mitrafanoff with bladder neck sling/mace in 2014 * Assessment & Plan Note - Betsy Seo APRN.CNP - 07/02/2025 11:22 AM EDT Associated Problem(s): S/P ventriculoperitoneal shunt - Placed at in 1996 and replaced 1 week later * Assessment & Plan Note - Betsy Seo APRN.CNP - 07/02/2025 11:22 AM EDT Associated Problem(s): NIGEL (obstructive sleep apnea) - Compliant on Trilogy ventilator * Assessment & Plan Note - Betsy Seo APRN.CNP - 07/02/2025 11:21 AM EDT Associated Problem(s): Spina bifida (HCC) - Wheelchair dependent - On tubefeed [facility] Diagnosis Renal stone- Primary Calculus of [...] of obstruction or gangrene G tube feedings ([facility]) Gastrostomy status Colostomy present ([facility]) Spina bifida of lumbosacral region with hydrocephalus ([facility]) S/P ventriculoperitoneal shunt Presence of cerebrospinal fluid drainage device Neurogenic bladder Neurogenic bladder, NOS Pre-op evaluation- Primary Preoperative examination, unspecified Spina bifida, unspecified hydrocephalus presence, unspecified spinal region (HCC) NIGEL (obstructive sleep apnea) Obstructive sleep apnea (adult) (pediatric) S/P ventriculoperitoneal shunt Presence of cerebrospinal fluid drainage device Neurogenic bladder Neurogenic bladder, NOS Colostomy in place ([facility]) Colostomy status Kidney stone Calculus of kidney Hx of Tachycardia Tachycardia, unspecified Arnold-Chiari malformation ([facility]) Spina bifida with hydrocephalus, unspecified region Difficult intravenous access Other specified conditions influencing health status Screening for genitourinary condition Screening for other and unspecified genitourinary condition Nephrolithiasis Calculus of kidney documented in this encounter [facility] course Narrative No data available for this section [facility] Hospital Discharge instructions No data available for this section [facility] Progress note No data available for this section [facility] Reason for referral (narrative)* Diagnostic Procedure Only (Routine) - Closed Specialty Diagnoses / Procedures Referred By Zuleima t Referred To Contact US IMAGING Diagnoses Neurogenic bladder Procedures US KIDNEY/BLADDER US RETROPERITONEAL REAL TIME W/IMAGE COMPLETE Kelsie Giraldo MD [address] [place] [address] [facility] Referral ID Status Reason Start Date Expiration Date V isits Requested Visits Authorized [id number] Closed Auto-Generate d Referral 03/17/2022 10/22/2022 1 1 [facility] for referral (narrative)* Outpatient Procedure (Routine) - Pending Review Specialty Diagnoses / Procedures Referred By Zuleima nugent Referred To Contact [facility] Diagnoses Ulnar neuropathy of both upper extremities Procedures EMG(NEURO/NI) NERVE CONDUCTION STUDIES 9-10 STUDIES Kelsie Giraldo MD [address] [place] [id number] [facility] [place] [address] [place] [address] Referral ID Status Reason Start Date Expiration Date Visits Requested Visits Authorized [id number] Pending Review Auto-Generat ed Referral 03/29/2022 03/29/2023 1 1 [facility] for referral (narrative)* Outpatient Procedure (Routine) - Pending Review Specialty Diagnoses / Procedures [facility] Diagnoses Preoperative examination Parastomal hernia without obstruction or gangrene Procedures ECG COMPLETE ECG ROUTINE ECG W/LEAST 12 LDS W/I&R Patricia Montalvo APRN.VIDEOTAPE EDITOR [address] [address] [place] [address] Referral ID Status Reason Start Date Expiration Date Visits Requested Visits Authorized [id number] Pending Review Auto-Generat ed Referral 12/21/2022 12/21/2023 1 1 * Consult, Test, Treat (Routine) - Pending Review Specialty Diagnoses / Procedures Referred By Contac t Referred To Contact Diagnoses Preoperative examination Parastomal hernia without obstruction or gangrene Procedures CONSULT TO [facility] BE[facility] OFFICE/OUTPATIENT [facility] 60-74 MINUTES Patricia Montalvo APRN.CNP [address] [place] [id number] Referral ID Status Reason Start Date Expiration Date Visits Requested Visits Authorized [id number] Pending Review PCP Requested Referral 12/21/2022 12/21/2023 1 1 [facility] for referral (narrative)* Outpatient Procedure (Routine) - Closed Specialty Diagnoses / Procedures Referred By Contac t Referred To Contact [facility] Diagnoses Tachycardia Procedures ECG COMPLETE ECG ROUTINE ECG W/LEAST 12 LDS W/I&R Kelsie Giraldo MD [address] [place] [address] [facility] Vascular [address] [address] Referral ID Status Reason Start Date Expiration Date V isits Requested Visits Authorized [id number] Closed Auto-Generate d Referral 08/25/2023 08/24/2024 1 1 [facility] for referral (narrative)* Diagnostic Procedure Only (Routine) - Pending Review Specialty Diagnoses / Procedures Referred By Contac t Referred To Contact US IMAGING Diagnoses Neurogenic bladder Procedures US KIDNEY/BLADDER US RETROPERITONEAL REAL TIME W/IMAGE COMPLETE Kelsie Giraldo MD [address] [place] [address] [place] [address] Referral ID Status Reason Start Date Expiration Date Visits Requested Visits Authorized [id number] Pending Review Auto-Generat ed Referral 01/04/2024 02/02/2025 1 1 [facility] for referral (narrative)* Diagnostic Procedure Only (Routine) - Closed Specialty Diagnoses / Procedures Referred By Contac t Referred To Contact US IMAGING Diagnoses Neurogenic bladder Procedures US KIDNEY/BLADDER US RETROPERITONEAL REAL TIME W/IMAGE COMPLETE Kelsie Giraldo MD [address] [facility] [address] [place] [address] Referral ID Status Reason Start Date Expiration Date V isits Requested Visits Authorized [id number] Closed Auto-Generate d Referral 01/04/2024 02/02/2025 1 1 [facility] for referral (narrative)No reason for referral information [facility] Work Phone: Reason for visit Narrative* Diagnostic Procedure Only (Routine) - Closed Specialty Diagnoses / Procedures Referred By Contac t Referred To Contact US IMAGING Diagnoses Neurogenic bladder Procedures US KIDNEY/BLADDER US RETROPERITONEAL REAL TIME W/IMAGE COMPLETE Kelsie Giraldo MD [address] [facility] [address] [facility] Referral ID Status Reason Start Date Expiration Date V isits Requested Visits Authorized [id number] Closed Auto-Generate d Referral 03/17/2022 10/22/2022 1 1 [facility] for visit Narrative* Diagnostic Procedure Only (Routine) - Closed Specialty Diagnoses / Procedures Referred By Contac t Referred To Contact US IMAGING Diagnoses Neurogenic bladder Procedures US KIDNEY/BLADDER US RETROPERITONEAL REAL TIME W/IMAGE COMPLETE Kelsie Giraldo MD [address] [facility] [place] [address] [place] [address] Referral ID Status Reason Start Date Expiration Date V isits Requested Visits Authorized [id number] Closed Auto-Generate d Referral 01/04/2024 02/02/2025 1 1 [facility] for visit Narrative* Diagnostic Procedure Only (Routine) - Closed Specialty Diagnoses / Procedures Referred By Contac t Referred To Contact US IMAGING Diagnoses Presence of suprapubic catheter (HCC) Neurogenic bladder Procedures US KIDNEY/BLADDER US RETROPERITONEAL REAL TIME W/IMAGE COMPLETE Kelsie Giraldo MD [address] [place] [address] Phone: tel: fax: [place] [address] Referral ID Status Reason Start Date Expiration Date V isits Requested Visits Authorized [id number] Closed Auto-Generate d Referral 01/16/2025 02/01/2026 1 1 [facility] Advance Directives No Advanced Directives Records FoundDocuments on File Type Date Recorded 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 Advance Directive(s) 10/20/2021 2:00 PM Advance Directive(s) 01/01/2020 10:14 AM Advance Directive(s) 01/01/2020 11:51 AM Advance Directive(s) 01/01/2020 11:55 AM Advance Directive(s) 12/21/2019 9:06 AM Advance Directive(s) 11/28/2019 2:23 PM Documents on File Type Date Recorded 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 Advance Directive(s) 10/20/2021 2:00 PM Advance Directive(s) 01/01/2020 10:14 AM Advance Directive(s) 01/01/2020 11:51 AM Advance Directive(s) 01/01/2020 11:55 AM Advance Directive(s) 12/21/2019 9:06 AM Advance Directive(s) 11/28/2019 2:23 PM Documents on File Type Date Recorded 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 Advance Directive(s) 01/01/2020 11:55 AM Documents on File Type Date Recorded 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 Advance Directive(s) 01/01/2020 11:55 AM Advance Directive Response Recorded Date/ Time Advance Directives No January 08 015 10:28am Living Will No October 25 9 7:55pm Power of Rocket Engine Mechanic No October 25 7:55pm Advance Directive Response Recorded Date/ Time Advance Directives No January 08 10:28am Living Will Yes February 20, 2024 8:42pm Power of Rocket Engine Mechanic Yes February 19 8:42pm Name of Medical Power of Rocket Engine Mechanic Billie Aguirre February 20, 2024 8:42pm Advance Directive Response Recorded Date/ Time Advance Directives No January 08 10:28am Advance Directive Response Recorded Date/ Time Do you have a Healthcare Power of Rocket Engine Mechanic? No June 07, 2025 10:36am Advance Directives No March 19th, 2 015 10:28am Advance Directive Response Recorded Date/ Time Do you have a Healthcare Power of Rocket Engine Mechanic? No June 07, 2025 1:13pm Advance Directives No January 08 10:28am Summary Purpose Family History No Family History Records Found Relationship Condition Age at Onset Recorded Date/T hill Unknown Family History?- Unknown October 8:11pm Family History?- Unknown April 02, 2019 11:10am Reason for Referral Specialty Diagnoses / Procedures Referred By Contac t Referred To Contact Plastic Surgery Diagnoses Open wound of tissue overlying spine, unspecified laterality, initial encounter Paraplegia (HCC) Procedures CONSULT TO PLASTIC SURGERY OFFICE/OUTPATIENT [facility] MDM 60 MINUTES Mando Gibbs MD [address] [place] [address] Lillie Riggs MD [address] [place] [address] Referral ID Status Reason Start Date Expiration Date Visits Requested Visits Authorized [id number] Authorized PCP Requested Referral 01/26/2024 01/25/2025 1 1 Specialty Diagnoses / Procedures Referred By Contac t Referred To Contact Nutrition Diagnoses G tube feedings (HCC) Procedures CONSULT TO NUTRITION THERAPY MEDICAL NUTRITION ASSMT&IVNTJ INDIV EACH 15 OK MEDICAL NUTRITION ASSMT&IVNTJ INDIV EACH 15 [place] MEDICAL NUTRITION ASSMT&IVNTJ INDIV EACH 15 [place] MEDICAL NUTRITION ASSMT&IVNTJ INDIV EACH 15 OK Nikita Gauthier MD [address] [place] [address] Referral ID Status Reason Start Date Expiration Date Visits Requested Visits Authorized [id number] Pending Review PCP Requested Referral 07/31/2023 07/30/2024 1 1 Specialty Diagnoses / Procedures Referred By Contac t Referred To Contact Colon and Rectal Surgery Diagnoses Parastomal hernia without obstruction or gangrene Procedures CONSULT TO COLO-RECTAL SURGERY OFFICE/OUTPATIENT [facility] 60-74 MINUTES Marifer Dowd MD [address] [place] [address] Harry Shore MD [address] [place] [address] Referral ID Status Reason Start Date Expiration Date Visits Requested Visits Authorized [id number] Pending Review PCP Requested Referral 12/19/2022 12/19/2023 [...] 05, 2025 2:55pm Neuromuscular respiratory weakness Augus 2024 2:55pm Spina bifida June 05, 2025 2: 55pm Chief Complaint Admit Date NIGEL Follow up February 27, 2025 2:47pm 3 M FU June 05, 2025 2: 55pm UTI SUSPICION OF UTI June 07, 2025 1 2:12pm Reason for Visit Admit Date Depression February 27, 2025 2:47pm Chronic respiratory failure with hypoxia and hypercapnia February 27, 2025 2:47pm Neuromuscular respiratory weakness February 272024 2:47pm Spina bifida February 27, 2025 2:47pm Chronic respiratory failure with hypoxia and hypercapnia June 05, 2025 2:55pm Fatigue June 05, 2025 2: 55pm Hypertension June 05, 2025 2: 55pm Neuromuscular respiratory weakness Augus 2024 2:55pm Spina bifida June 05, 2025 2: 55pm Acute hyperglycemia June 07, 2025 12 :12pm Complicated urinary tract infection Augu st 2024 12:12pm Leukocytosis June 07, 2025 12 :12pm Sinus tachycardia seen on cardiac monito r June 07, 2025 12:12pm SIRS (systemic inflammatory response syn drome) June 07, 2025 12:12pm Chief Complaint Admit Date NIGEL Follow up February 27, 2025 2:47pm 3 M FU June 05, 2025 2: 55pm UTI SUSPICION OF UTI June 07, 2025 1 2:12pm UTI SUSPICION OF UTI June 07, 2025 1 2:15pm UTI SUSPICION OF UTI June 08, 2025 8 :37am UTI SUSPICION OF UTI June 09, 2025 3 :47pm UTI SUSPICION OF UTI June 10, 2025 1 1:27am UTI SUSPICION OF UTI June 11, 2025 7 :44am Additional Source Comments Source Comments (unrecognize d section and content) In the event this informatio n is protected by the Federal Confidentiality of Alcohol and Drug Abuse Patient Records regulations: The Federal rules restrict any use of the information to criminally investigate or prosecute any alcohol or drug abuse patient.[facility] the event this information is protected by the Federal Confidentiality of Alcohol and Drug Abuse Patient Records regulations: The Federal rules restrict any use of the information to criminally investigate or prosecute any alcohol or drug abuse patient.[facility] HospitalIn the event this information is protected by the Federal Confidentiality of Alcohol and Drug Abuse Patient Records regulations: The Federal rules restrict any use of the information to criminally investigate or prosecute any alcohol or drug abuse patient.[facility] HospitalIn the event this information is protected by the Federal Confidentiality of Alcohol and Drug Abuse Patient Records regulations: The Federal rules restrict any use of the information to criminally investigate or prosecute any alcohol or drug abuse patient.[facility] HospitalIn the event this information is protected by the Federal Confidentiality of Alcohol and Drug Abuse Patient Records regulations: The Federal rules restrict any use of the information to criminally investigate or prosecute any alcohol or drug abuse patient.[facility] HospitalIn the event this information is protected by the Federal Confidentiality of Alcohol and Drug Abuse Patient Records regulations: The Federal rules restrict any use of the information to criminally investigate or prosecute any alcohol or drug abuse patient.[facility] HospitalIn the event this information is protected by the Federal Confidentiality of Alcohol and Drug Abuse Patient Records regulations: The Federal rules restrict any use of the information to criminally investigate or prosecute any alcohol or drug abuse patient.[facility] HospitalIn the event this information is protected by the Federal Confidentiality of Alcohol and Drug Abuse Patient Records regulations: The Federal rules restrict any use of the information to criminally investigate or prosecute any alcohol or drug abuse patient.[facility] HospitalIn the event this information is protected by the Federal Confidentiality of Alcohol and Drug Abuse Patient Records regulations: The Federal rules restrict any use of the information to criminally investigate or prosecute any alcohol or drug abuse patient.[facility] HospitalIn the event this information is protected by the Federal Confidentiality of Alcohol and Drug Abuse Patient Records regulations: The Federal rules restrict any use of the information to criminally investigate or prosecute any alcohol or drug abuse patient.[facility] HospitalIn the event this information is protected by the Federal Confidentiality of Alcohol and Drug Abuse Patient Records regulations: The Federal rules restrict any use of the information to criminally investigate or prosecute any alcohol or drug abuse patient.[facility] HospitalIn the event this information is protected by the Federal Confidentiality of Alcohol and Drug Abuse Patient Records regulations: The Federal rules restrict any use of the information to criminally investigate or prosecute any alcohol or drug abuse patient.[facility] HospitalIn the event this information is protected by the Federal Confidentiality of Alcohol and Drug Abuse Patient Records regulations: The Federal rules restrict any use of the information to criminally investigate or prosecute any alcohol or drug abuse patient.[facility] HospitalIn the event this information is protected by the Federal Confidentiality of Alcohol and Drug Abuse Patient Records regulations: The Federal rules restrict any use of the information to criminally investigate or prosecute any alcohol or drug abuse patient.[facility] HospitalIn the event this information is protected by the Federal Confidentiality of Alcohol and Drug Abuse Patient Records regulations: The Federal rules restrict any use of the information to criminally investigate or prosecute any alcohol or drug abuse patient.[facility] HospitalIn the event this information is protected by the Federal Confidentiality of Alcohol and Drug Abuse Patient Records regulations: The Federal rules restrict any use of the information to criminally investigate or prosecute any alcohol or drug abuse patient.[facility] HospitalIn the event this information is protected by the Federal Confidentiality of Alcohol and Drug Abuse Patient Records regulations: The Federal rules restrict any use of the information to criminally investigate or prosecute any alcohol or drug abuse patient.[facility] HospitalIn the event this information is protected by the Federal Confidentiality of Alcohol and Drug Abuse Patient Records regulations: The Federal rules restrict any use of the information to criminally investigate or prosecute any alcohol or drug abuse patient.[facility] HospitalIn the event this information is protected by the Federal Confidentiality of Alcohol and Drug Abuse Patient Records regulations: The Federal rules restrict any use of the information to criminally investigate or prosecute any alcohol or drug abuse patient.[facility] HospitalIn the event this information is protected by the Federal Confidentiality of Alcohol and Drug Abuse Patient Records regulations: The Federal rules restrict any use of the information to criminally investigate or prosecute any alcohol or drug abuse patient.[facility] HospitalIn the event this information is protected by the Federal Confidentiality of Alcohol and Drug Abuse Patient Records regulations: The Federal rules restrict any use of the information to criminally investigate or prosecute any alcohol or drug abuse patient.[facility] HospitalIn the event this information is protected by the Federal Confidentiality of Alcohol and Drug Abuse Patient Records regulations: The Federal rules restrict any use of the information to criminally investigate or prosecute any alcohol or drug abuse patient.[facility] HospitalIn the event this information is protected by the Federal Confidentiality of Alcohol and Drug Abuse Patient Records regulations: The Federal rules restrict any use of the information to criminally investigate or prosecute any alcohol or drug abuse patient.[facility] HospitalIn the event this information is protected by the Federal Confidentiality of Alcohol and Drug Abuse Patient Records regulations: The Federal rules restrict any use of the information to criminally investigate or prosecute any alcohol or drug abuse patient.[facility] HospitalIn the event this information is protected by the Federal Confidentiality of Alcohol and Drug Abuse Patient Records regulations: The Federal rules restrict any use of the information to criminally investigate or prosecute any alcohol or drug abuse patient.[facility] HospitalIn the event this information is protected by the Federal Confidentiality of Alcohol and Drug Abuse Patient Records regulations: The Federal rules restrict any use of the information to criminally investigate or prosecute any alcohol or drug abuse patient.[facility] HospitalIn the event this information is protected by the Federal Confidentiality of Alcohol and Drug Abuse Patient Records regulations: The Federal rules restrict any use of the information to criminally investigate or prosecute any alcohol or drug abuse patient.[facility] HospitalIn the event this information is protected by the Federal Confidentiality of Alcohol and Drug Abuse Patient Records regulations: The Federal rules restrict any use of the information to criminally investigate or prosecute any alcohol or drug abuse patient.[facility] HospitalIn the event this information is protected by the Federal Confidentiality of Alcohol and Drug Abuse Patient Records regulations: The Federal rules restrict any use of the information to criminally investigate or prosecute any alcohol or drug abuse patient.[facility] HospitalIn the event this information is protected by the Federal Confidentiality of Alcohol and Drug Abuse Patient Records regulations: The Federal rules restrict any use of the information to criminally investigate or prosecute any alcohol or drug abuse patient.[facility] HospitalIn the event this information is protected by the Federal Confidentiality of Alcohol and Drug Abuse Patient Records regulations: The Federal rules restrict any use of the information to criminally investigate or prosecute any alcohol or drug abuse patient.[facility] HospitalIn the event this information is protected by the Federal Confidentiality of Alcohol and Drug Abuse Patient Records regulations: The Federal rules restrict any use of the information to criminally investigate or prosecute any alcohol or drug abuse patient.[facility] HospitalIn the event this information is protected by the Federal Confidentiality of Alcohol and Drug Abuse Patient Records regulations: The Federal rules restrict any use of the information to criminally investigate or prosecute any alcohol or drug abuse patient.[facility] HospitalIn the event this information is protected by the Federal Confidentiality of Alcohol and Drug Abuse Patient Records regulations: The Federal rules restrict any use of the information to criminally investigate or prosecute any alcohol or drug abuse patient.[facility] HospitalIn the event this information is protected by the Federal Confidentiality of Alcohol and Drug Abuse Patient Records regulations: The Federal rules restrict any use of the information to criminally investigate or prosecute any alcohol or drug abuse patient.[facility] HospitalIn the event this information is protected by the Federal Confidentiality of Alcohol and Drug Abuse Patient Records regulations: The Federal rules restrict any use of the information to criminally investigate or prosecute any alcohol or drug abuse patient.[facility] HospitalIn the event this information is protected by the Federal Confidentiality of Alcohol and Drug Abuse Patient Records regulations: The Federal rules restrict any use of the information to criminally investigate or prosecute any alcohol or drug abuse patient.[facility] HospitalIn the event this information is protected by the Federal Confidentiality of Alcohol and Drug Abuse Patient Records regulations: The Federal rules restrict any use of the information to criminally investigate or prosecute any alcohol or drug abuse patient.[facility] HospitalIn the event this information is protected by the Federal Confidentiality of Alcohol and Drug Abuse Patient Records regulations: The Federal rules restrict any use of the information to criminally investigate or prosecute any alcohol or drug abuse patient.[facility] HospitalIn the event this information is protected by the Federal Confidentiality of Alcohol and Drug Abuse Patient Records regulations: The Federal rules restrict any use of the information to criminally investigate or prosecute any alcohol or drug abuse patient.[facility] HospitalIn the event this information is protected by the Federal Confidentiality of Alcohol and Drug Abuse Patient Records regulations: The Federal rules restrict any use of the information to criminally investigate or prosecute any alcohol or drug abuse patient.[facility] HospitalIn the event this information is protected by the Federal Confidentiality of Alcohol and Drug Abuse Patient Records regulations: The Federal rules restrict any use of the information to criminally investigate or prosecute any alcohol or drug abuse patient.[facility] the event this information is protected by the Federal Confidentiality of Alcohol and Drug Abuse Patient Records regulations: The Federal rules restrict any use of the information to criminally investigate or prosecute any alcohol or drug abuse patient.[facility] HospitalIn the event this information is protected by the Federal Confidentiality of Alcohol and Drug Abuse Patient Records regulations: The Federal rules restrict any use of the information to criminally investigate or prosecute any alcohol or drug abuse patient.[facility] HospitalIn the event this information is protected by the Federal Confidentiality of Alcohol and Drug Abuse Patient Records regulations: The Federal rules restrict any use of the information to criminally investigate or prosecute any alcohol or drug abuse patient.[facility] HospitalIn the event this information is protected by the Federal Confidentiality of Alcohol and Drug Abuse Patient Records regulations: The Federal rules restrict any use of the information to criminally investigate or prosecute any alcohol or drug abuse patient.[facility] HospitalIn the event this information is protected by the Federal Confidentiality of Alcohol and Drug Abuse Patient Records regulations: The Federal rules restrict any use of the information to criminally investigate or prosecute any alcohol or drug abuse patient.[facility] HospitalIn the event this information is protected by the Federal Confidentiality of Alcohol and Drug Abuse Patient Records regulations: The Federal rules restrict any use of the information to criminally investigate or prosecute any alcohol or drug abuse patient.[facility] HospitalIn the event this information is protected by the Federal Confidentiality of Alcohol and Drug Abuse Patient Records regulations: The Federal rules restrict any use of the information to criminally investigate or prosecute any alcohol or drug abuse patient.[facility] HospitalIn the event this information is protected by the Federal Confidentiality of Alcohol and Drug Abuse Patient Records regulations: The Federal rules restrict any use of the information to criminally investigate or prosecute any alcohol or drug abuse patient.[facility] HospitalIn the event this information is protected by the Federal Confidentiality of Alcohol and Drug Abuse Patient Records regulations: The Federal rules restrict any use of the information to criminally investigate or prosecute any alcohol or drug abuse patient.[facility] HospitalIn the event this information is protected by the Federal Confidentiality of Alcohol and Drug Abuse Patient Records regulations: The Federal rules restrict any use of the information to criminally investigate or prosecute any alcohol or drug abuse patient.[facility] HospitalIn the event this information is protected by the Federal Confidentiality of Alcohol and Drug Abuse Patient Records regulations: The Federal rules restrict any use of the information to criminally investigate or prosecute any alcohol or drug abuse patient.[facility] HospitalIn the event this information is protected by the Federal Confidentiality of Alcohol and Drug Abuse Patient Records regulations: The Federal rules restrict any use of the information to criminally investigate or prosecute any alcohol or drug abuse patient.[facility] HospitalIn the event this information is protected by the Federal Confidentiality of Alcohol and Drug Abuse Patient Records regulations: The Federal rules restrict any use of the information to criminally investigate or prosecute any alcohol or drug abuse patient.[facility] HospitalIn the event this information is protected by the Federal Confidentiality of Alcohol and Drug Abuse Patient Records regulations: The Federal rules restrict any use of the information to criminally investigate or prosecute any alcohol or drug abuse patient.[facility] HospitalIn the event this information is protected by the Federal Confidentiality of Alcohol and Drug Abuse Patient Records regulations: The Federal rules restrict any use of the information to criminally investigate or prosecute any alcohol or drug abuse patient.[facility] HospitalIn the event this information is protected by the Federal Confidentiality of Alcohol and Drug Abuse Patient Records regulations: The Federal rules restrict any use of the information to criminally investigate or prosecute any alcohol or drug abuse patient.[facility] Care Teams (unrecognized sec tion and content) Rail Director Relationship Specialty Start Date End Date Nikita Gramajo IV, MD [address] [place] [id number] PCP - General Family Practice 01/01/20 Rail Director Relationship Specialty Start Date End Date Nikita Gramajo IV, MD [address] [place] [address] [id number] PCP - General Family Practice 01/01/20 Rail Director Relationship Specialty Start Date End Date Nikita Gramajo IV, MD [address] [place] [address] [id number] PCP - General Family Practice 01/01/20 Rail Director Relationship Specialty Start Date End Date Nikita Gramajo IV, MD [address] [place] [address] [id number] PCP - General Family Practice 01/01/20 Rail Director Relationship Specialty Start Date End Date Nikita Gramajo IV, MD [address] [place] [address] [id number] PCP - General Family Practice 01/01/20 Rail Director Relationship Specialty Start Date End Date Nikita Gramajo IV, MD [address] [place] [address] PCP - General Family Practice 01/01/20 Rail Director Relationship Specialty Start Date End Date Balbir Zack, DO [address] [place] [id number] PCP - General Family Medicine 11/02/20 ([place] [place] [address] 02/24/11 Rail Director Relationship Specialty Start Date End Date BeltranNikita priest [address] [place] [address] [id number] PCP - General Family Medicine 11/02/20 ([place]), [place] [id number] 02/24/11 Rail Director Relationship Specialty Start Date End Date Nikita Gramajo IV, MD [address] [place] [address] [id number] PCP - General Family Medicine 01/01/20 Rail Director Relationship Specialty Start Date End Date Nikita Gramajo IV, MD [address] [place] [address] [id number] PCP - General Family Medicine 01/01/20 Rail Director Relationship Specialty Start Date End Date Nikita Gramajo IV, MD [address] [place] [address] [id number] PCP - General Family Medicine 01/01/20 Rail Director Relationship Specialty Start Date End Date Nikita Gramajo IV, MD [address] [place] [address] [id number] PCP - General Family Medicine 01/01/20 Team Status: Active Member Role Status Dates Dr. Syed Hernandes , DO Family Provider Active Dr. Nikita Gramajo , Primary Care Provider Active Team Status: Inactive Member Role Status Dates Dr. Omi Adams MD Attending Provider Active Team Status: Inactive Member Role Status Dates Dr. Omi Adams MD Attending Provider Active Dr. Nikita Gramajo , Primary Care Provider Active Rail Director Relationship Specialty Start Date End Date Nikita Gramajo IV, DO [address] [place] [address] PCP - General Family Medicine 01/01/20 Rail Director Relationship Specialty Start Date End Date Nikita Gramajo IV, DO [address] [place] [address] PCP - General Family Medicine 01/01/20 Rail Director Relationship Specialty Start Date End Date Nikita Gramajo IV, DO [address] [place] [address] PCP - General Family Medicine 01/01/20 Rail Director Relationship Specialty Start Date End Date BeltranflexNikita IV, DO [address] [place] [address] PCP - General Family Medicine 01/01/20 Rail Director Relationship Specialty Start Date End Date BeltranflexNikita IV, DO [address] [place] [address] PCP - General Family Medicine 01/01/20 Rail Director Relationship Specialty Start Date End Date BeltranflexNikita IV, DO [address] [place] [address] PCP - General Family Medicine 01/01/20 Rail Director Relationship Specialty Start Date End Date Beltranflex Nikita KENNEDY, DO [address] [place] [address] PCP - General Family Medicine 01/01/20 Rail Director Relationship Specialty Start Date End Date Nikita Gramajo IV, DO [address] [place] [address] PCP - General Family Medicine 01/01/20 Rail Director Relationship Specialty Start Date End Date Nikita Gramajo IV, DO [address] [place] [address] PCP - General Family Medicine 01/01/20 Rail Director Relationship Specialty Start Date End Date Nikita Gramajo IV, DO [address] [place] [address] PCP - General Family Medicine 01/01/20 Rail Director Relationship Specialty Start Date End Date Nikita Gramajo IV, DO [address] [place] [address] PCP - General Family Medicine 01/01/20 Rail Director Relationship Specialty Start Date End Date Nikita Gramajo IV, DO [address] [place] [address] PCP - General Family Medicine 01/01/20 Rail Director Relationship Specialty Start Date End Date Nikita Gramajo IV, DO [address] [place] [address] PCP - General Family Medicine 01/01/20 Rail Director Relationship Specialty Start Date End Date Nikita Gramajo IV, DO [address] [place] [address] PCP - General Family Medicine 01/01/20 Rail Director Relationship Specialty Start Date End Date Nikita Gramajo IV, DO [address] [place] [address] PCP - General Family Medicine 01/01/20 Rail Director Relationship Specialty Start Date End Date Nikita Gramajo IV, DO [address] [place] [address] PCP - General Family Medicine 01/01/[address] [place] [address] Registered Dietitian Nutrition 01/18/24 Rail Director Relationship Specialty Start Date End Date Nikita Gramajo IV, DO [address] [place] [phone] PCP - General Family Medicine 01/01/[address] [place] [address] Registered Dietitian Nutrition 01/18/24 Rail Director Relationship Specialty Start Date End Date Nikita Gramajo IV, DO [address] [place] [id number] PCP - General Family Medicine 01/01/[address] [place] [address] Registered Dietitian Nutrition 01/18/24 Rail Director Relationship Specialty Start Date End Date Nikita Gramajo IV, DO [address] [place] [id number] PCP - General Family Medicine 01/01/[address] [place] [address] Registered Dietitian Nutrition 01/18/24 Rail Director Relationship Specialty Start Date End Date Nikita Gramajo IV, DO [address] [place] [id number] PCP - General Family Medicine 01/01/[address] [place] [address] Registered Dietitian Nutrition 01/18/24 Rail Director Relationship Specialty Start Date End Date Nikita Gramajo IV, DO [address] [place] [address] PCP - General Family Medicine 01/01/[address] [place] [address] Registered Dietitian Nutrition 01/18/24 Team Status: Inactive Member Role Status Dates Dr. Nikita Gramajo DO Primary Care Provider Active Dr. Joseph Rios MD Emergency Provider Active Rail Director Relationship Specialty Start Date End Date Nikita Gramajo IV, DO [address] [place] [id number] PCP - General Family Medicine 01/01/[address] [place] [address] Registered Dietitian Nutrition 01/18/24 Rail Director Relationship Specialty Start Date End Date Nikita Gramajo IV, DO [address] [place] [id number] PCP - General Family Medicine 01/01/[address] [place] [address] Registered Dietitian Nutrition 01/18/24 Rail Director Relationship Specialty Start Date End Date Nikita Gramajo IV, DO [address] [place] [id number] PCP - General Family Medicine 01/01/[address] [place] [address] Registered Dietitian Nutrition 01/18/24 Rail Director Relationship Specialty Start Date End Date Nikita Gramajo IV, DO [address] [place] [id number] PCP - General Family Medicine 01/01/[address] [place] [address] Registered Dietitian Nutrition 01/18/24 Rail Director Relationship Specialty Start Date End Date Nikita Gramajo IV, DO [address] [place] [id number] PCP - General Family Medicine 01/01/[address] [place] [address] Registered Dietitian Nutrition 01/18/24 Rail Director Relationship Specialty Start Date End Date Nikita Gramajo IV, DO [address] [place] [id number] PCP - General Family Medicine 01/01/[address] [place] [address] Registered Dietitian Nutrition 01/18/24 Rail Director Relationship Specialty Start Date End Date Nikita Gramajo IV, DO [address] [place] [phone] PCP - General Family Medicine 01/01/[address] [place] [address] Registered Dietitian Nutrition 01/18/24 Rail Director Relationship Specialty Start Date End Date Nikita Gramajo IV, DO [address] [place] [id number] PCP - General Family Medicine 01/01/[address] [place] [address] Registered Dietitian Nutrition 01/18/24 Rail Director Relationship Specialty Start Date End Date Nikita Gramajo IV, DO [address] [place] [id number] PCP - General Family Medicine 01/01/[address] [place] [address] Registered Dietitian Nutrition 01/18/24 Rail Director Relationship Specialty Start Date End Date Nikita Gramajo IV, DO [address] [place] [id number] PCP - General Family Medicine 01/01/[address] [place] [address] Registered Dietitian Nutrition 01/18/24 Team Status: Active Member Role/Relationship Status Dates Dr. Syed Hernandes , Family Provider Active Dr. Nikita Gramajo , Primary Care Provider Active Team Status: Inactive Member Role/Relationship Status Dates Dr. Nikita Gramajo DO Primary Care Provider Active Start: February 27, 2025 End: February 27, 2025 Dr. Nikita Gramajo DO Referring Provider Active Start: February 27, 2025 End: February 27, 2025 Alexa Peterson WOOL PRESSER, WOOL PRESSER-C Attending Provider Active Start: February 27, 2025 End: February 27, 2025 Team Status: Inactive Member Role/Relationship Status Dates Dr. Nikita Gramajo DO Primary Care Provider Active Start: June 05, 2025 End: June 05, 2025 Dr. Nikita Gramajo DO Referring Provider Active Start: June 05, 2025 End: June 05, 2025 Alexa Peterson WOOL PRESSER, WOOL PRESSER-C Attending Provider Active Start: June 05, 2025 End: June 05, 2025 Team Status: Active Member Role/Relationship Status Dates Dr. Nikita Gramajo DO Primary Care Provider Active Team Status: Active Member Role/Relationship Status Dates Dr. Nikita Gramajo DO Primary Care Provider Active Start: June 07, 2025 Dr. Joseph Rios MD Emergency Provider Active Sta rt: June 07, 2025 Dr. Gregorio Qiu MD Admit Provider Active Sta rt: June 07, 2025 Dr. Gregorio Qiu MD Attending Provider Active Start: June 07, 2025 Team Status: Inactive Member Role/Relationship Status Dates Dr. Nikita Gramajo DO Primary Care Provider Active Start: June 07, 2025 End: June 11, 2025 Dr. Joseph Rios MD Emergency Provider Active Sta rt: June 07, 2025 End: June 11, 2025 Dr. Gregorio Qiu MD Admit Provider Active Sta rt: June 07, 2025 End: June 11, 2025 Dr. Gregorio Qiu MD Other Provider Active Sta rt: June 07, 2025 End: June 11, 2025 Dr. Yaya Valencia MD Other Provider Active Start: June 07, 2025 End: June 11, 2025 Dr. Agusto Rooney MD Other Provider Active Start: June 07, 2025 End: June 11, 2025 Dr. Xavier Buck MD Attending Provider Active Start: June 07, 2025 End: June 11, 2025 Team Status: Active Member Role/Relationship Status Dates Dr. Nikita Gramajo DO Primary Care Provider Active Start: June 07, 2025 Dr. Joseph Rios MD Emergency Provider Active Sta rt: June 07, 2025 Dr. Gregorio Qiu MD Admit Provider Active Sta rt: June 07, 2025 Dr. Gregorio Qiu MD Attending Provider Active Start: June 07, 2025 Dr. Gregorio Qiu MD Other Provider Active Sta rt: June 07, 2025 Team Status: Active Member Role/Relationship Status Dates Dr. Nikita Gramajo DO Primary Care Provider Active Start: June 08, 2025 Dr. Joseph Rios MD Emergency Provider Active Sta rt: June 08, 2025 Dr. Gregorio Qiu MD Admit Provider Active Sta rt: June 08, 2025 Dr. Gregorio Qiu MD Attending Provider Active Start: June 08, 2025 Dr. Gregorio Qiu MD Other Provider Active Sta rt: June 08, 2025 Dr. Yaya Valencia MD Other Provider Active Start: June 08, 2025 Team Status: Active Member Role/Relationship Status Dates Dr. Nikita Gramajo DO Primary Care Provider Active Start: June 09, 2025 Dr. Joseph Rios MD Emergency Provider Active Sta rt: June 09, 2025 Dr. Gregorio Qiu MD Admit Provider Active Sta rt: June 09, 2025 Dr. Gregorio Qiu MD Attending Provider Active Start: June 09, 2025 Dr. Gregorio Qiu MD Other Provider Active Sta rt: June 09, 2025 Dr. Yaya Valencia MD Other Provider Active Start: June 09, 2025 Dr. Agusto Rooney MD Other Provider Active Start: June 09, 2025 Team Status: Active Member Role/Relationship Status Dates Dr. Nikita Gramajo DO Primary Care Provider Active Start: June 10, 2025 Dr. Joseph Rios MD Emergency Provider Active Sta rt: June 10, 2025 Dr. Gregorio Qiu MD Admit Provider Active Sta rt: June 10, 2025 Dr. Gregorio Qiu MD Other Provider Active Sta rt: June 10, 2025 Dr. Yaya Valencia MD Other Provider Active Start: June 10, 2025 Dr. Agusto Rooney MD Other Provider Active Start: June 10, 2025 Dr. Xavier Buck MD Attending Provider Active Start: June 10, 2025 Dr. Xavier Buck MD Other Provider Active Star t: June 10, 2025 Team Status: Active Member Role/Relationship Status Dates Dr. Nikita Gramajo DO Primary Care Provider Active Start: June 11, 2025 Dr. Joseph Rios MD Emergency Provider Active Sta rt: June 11, 2025 Dr. Gregorio Qiu MD Admit Provider Active Sta rt: June 11, 2025 Dr. Gregorio Qiu MD Other Provider Active Sta rt: June 11, 2025 Dr. Yaya Valencia MD Other Provider Active Start: June 11, 2025 Dr. Agusto Rooney MD Other Provider Active Start: June 11, 2025 Dr. Xavier Buck MD Attending Provider Active Start: June 11, 2025 Dr. Xavier Buck MD Other Provider Active Star t: June 11, 2025 Rail Director Relationship Specialty Start Date End Date Nikita Gramajo IV, DO [address] [place] [address] PCP - General Family Medicine 01/01/[address] [place] [address] Registered Dietitian Nutrition 01/18/24 Rail Director Relationship Specialty Start Date End Date Nikita Gramajo IV, DO [address] [place] [address] PCP - General Family Medicine 01/01/[address] [place] [id number] Registered Dietitian Nutrition 01/18/24 Rail Director Relationship Specialty Start Date End Date Nikita Gramajo IV, DO [address] [place] [address] PCP - General Family Medicine 01/01/[address] [place] [address] Registered Dietitian Nutrition 01/18/24 Rail Director Relationship Specialty Start Date End Date Nikita Gramajo IV, DO [address] [place] [id number] PCP - General Family Medicine 01/01/[address] [place] [address] Registered Dietitian Nutrition 01/18/24 Rail Director Relationship Specialty Start Date End Date Nikita Gramajo IV, DO [address] [place] [id number] PCP - General Family Medicine 01/01/[address] [place] [address] Registered Dietitian Nutrition 01/18/24 Rail Director Relationship Specialty Start Date End Date Nikita Gramajo IV, DO [address] [place] [phone] PCP - General Family Medicine 01/01/[address] [place] [address] Registered Dietitian Nutrition 01/18/24 Rail Director Relationship Specialty Start Date End Date Nikita Gramajo IV, DO [address] [place] [id number] PCP - General Family Medicine 01/01/[address] [place], [place] [id number] Registered Dietitian Nutrition 01/18/24 Rail Director Relationship Specialty Start Date End Date Nikita Gramajo IV, DO [address] [place] [id number] PCP - General Family Medicine 01/01/[address] [place] [address] Registered Dietitian Nutrition 01/18/24 Rail Director Relationship Specialty Start Date End Date Nikita Gramajo IV, DO [address] [place] [address] [phone] PCP - General Family Medicine 01/01/[address] [place] [address] Registered Dietitian Nutrition 01/18/24 Reason for Visit (unrecogniz ed section and content) Specialty Diagnoses / Procedures Referred By Contac t Referred To Contact PHYSICAL MEDICINE AND REHAB Diagnoses Spina Bifida Procedures Consult Nikita Gauthier MD [address] [place] [address] [facility] [address] [place] [address] Referral ID Status Reason Start Date Expiration Date Visits Requested Visits Authorized [id number] Pending Review OON/Self Pay Override 03/25/2022 06/23/2022 1 1 Specialty Diagnoses / Procedures Referred By Contac t Referred To Contact INTERNAL MEDICINE Diagnoses Spina Bifida Procedures UNLISTED THERAPEUTIC PROCEDURE SPECIFY Appointment Nikita Gauthier MD [address] [place] [address] [facility] [address] [place] [address] Referral ID Status Reason Start Date Expiration Date Visits Requested Visits Authorized [id number] Pending Review OON/Self Pay Override 03/18/2022 06/16/2022 1 1 Reason Comments Other Reason Comments Abdominal Pain Emesis Reason Comments New Patient Reason Comments Pre-Op Update +urine cutlure Reason Comments Established Patient Reason Comments 03.14.23 Cure Parastomal hernia re pair 10 hours los 10 Reason Comments Patient Question Reason Comments Consult Specialty Diagnoses / Procedures Referred By Contac t Referred To Contact Colon and Rectal Surgery Diagnoses Parastomal hernia without obstruction or gangrene Procedures CONSULT TO COLO-RECTAL SURGERY OFFICE/OUTPATIENT [facility] 60-74 MINUTES Marifer Dowd MD [address] [place] [address] Harry Shore MD [address] [place] [address] Referral ID Status Reason Start Date Expiration Date Visits Requested Visits Authorized [id number] Pending Review PCP Requested Referral 12/19/2022 12/19/2023 1 1 Reason Comments Pre-Op Visit Reason Comments Established Patient Reason Comments G-Tube Feeds Reason Comments Forms Reason Comments Follow Up Specialty Diagnoses / Procedures Referred By Contac t Referred To Contact Diagnoses Preoperative examination Parastomal hernia without obstruction or gangrene Procedures CONSULT TO [facility] BEHAVIORAL MEDICINE OFFICE/OUTPATIENT [facility] 60-74 MINUTES Patricia Montalvo, HYDROELECTRIC MECHANIC.VIDEOTAPE EDITOR [address] [place] [phone] Referral ID Status Reason Start Date Expiration Date V isits Requested Visits Authorized [id number] Closed PCP Requested Referral 12/21/2022 12/21/2023 1 1 Reason Comments Leg Weakness Reason Comments CMN forms Reason Comments General 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 DATE CREATED AUTHOR AUTHOR'S ORGANIZ ATION 03/18/2023 [facility] DATE CREATED AUTHOR AUTHOR'S ORGANIZ ATION 10/12/2023 [facility] DATE CREATED AUTHOR AUTHOR'S ORGANIZ ATION 08/07/2024 [facility] DATE CREATED AUTHOR AUTHOR'S ORGANIZ ATION 06/19/2025 [facility] DATE CREATED AUTHOR AUTHOR'S ORGANIZ ATION 07/30/2025 [facility] Care Team (unrecognized sect ion and content) Care Team Personnel Name: NIKITA GRAMAJO DO Position: P4 Physician - Primary Care Member Role: Primary Care Physician Address: Address: [address] [place] [address] Care Team Related Persons Name: JAE AGUIRRE Name: [id number] Address: [address] [place] [address] Name: WENDI AGUIRRE Address: Home [address] [place] [address] Name: WENDI AGUIRRE Address: [place] [address] Goals (unrecognized section and content) Goals may [...] BE BASED ON THE PRIMARY CLINICAL RECORDS. [employer] [facility]. provides no warranty or guarantee of the accuracy or completeness of information in this document.
[2025-08-08 22:00] VITALS: BP 119/80; PULSE 115; PULSE 119; RESP 20; RESP 28; TEMP 36.4; O2SAT 96; O2SAT 97
[2025-08-08] MEDS: Cefepime HCl 2 GM in 0.9% Normal Saline (100mL MB+) 100 ML IV (22:08)
[2025-08-08] MEDS: 0.9% Normal Saline (1000mL) 1,000 ML 999 ML IV (22:09)
[2025-08-08 22:11] LABS: Hematocrit 36.6 % (40-54); Hemoglobin 12.6 g/dL (13.0-16.5); Immature Granulocytes Count 0.170 X10^3/uL (0.0-0.0); Mean Corp Hgb Conc 34.4 g/dL (32-36); Mean Corpuscular Volume 83.0 fL (80-94); Mean Platelet Vol. 9.0 fl (6.2-12.0); NRBC Flagged by Analyzer 0 % (0-5); POSITIVE DIFFERENTIAL YES; Platelet Count 290 K/mm3 (150-450); RBC Distribution Width CV 13.4 % (11.6-14.6); RBC Distribution Width SD 40.6 fl (35.1-43.9); Red Blood Count 4.41 M/mm3 (4.6-6.2); White Blood Count 17.8 K/mm3 (4.4-11.0)
[2025-08-08 22:14] LABS: Differential Indicated SCAN CRITERIA MET
[2025-08-08 22:34] LABS: Mucous, Urine 0 SEEN /hpf (<or=2+)
[2025-08-08 22:37] LABS: Prothrombin Time (Protime)PT. 14.2 SECONDS (11.7-14.9)
[2025-08-08 22:40] LABS: Partial Thromboplast Time 35.5 Seconds (24.1-36.2)
[2025-08-08 22:49] LABS: AST(SGOT) 15 U/L (<=37); Alanine Aminotransfer ALT/SGPT 22 U/L (<=46); Albumin, Serum 3.8 g/dL (3.5-5.0); Alkaline Phosphatase 120 U/L (40-129); Anion Gap 13 (5-15); BUN 4 mg/dL (4-19); BUN/Creat Ratio 13.7 RATIO (10-20); Calcium,Total 9.5 mg/dL (7.6-11.0); Carbon Dioxide 24.4 mmol/L (21.0-32.0); Chloride 94 mmol/L (98-108); Estimated Creatinine Clearance 235.69 ml/min (50-250); Globulin 4.2 g/dL (2.2-4.2); Glucose 99 mg/dL (70-99); Potassium 2.9 mmol/L (3.3-5.1)
[2025-08-08 22:56] LABS: Color, Urine Straw (Yellow); Glucose, Dipstick Normal (Normal); Ketone-Dipstick 50 mg/dl (Negative); Leukocyte Esterase-Dipstick 500 /ul (Negative); Nitrite-Dipstick Positive (Negative); Occult Blood-Urine 50 /ul (Negative); Protein-Dipstick 30 mg/dl (Negative); Specific Gravity, Urine 1.010 (1.002-1.030); Urine Bilirubin Dipstick Negative (Negative)
[2025-08-08 23:00] VITALS: BP 115/77; PULSE 119; RESP 30; O2SAT 98
[2025-08-08 23:15] LABS: Red Blood Cells-Urine 0-5 SEEN /hpf (0-5); Squamous Epithelial Cells - UA 10-25 SEEN /hpf (0-5)
[2025-08-08 23:20] LABS: Differential Comment SCANNED
[2025-08-09] VITALS (9 sets, daily range): BP systolic 95–136; BP diastolic 62–86; PULSE 28–130; RESP 16–39; TEMP 36.5–37.4; O2SAT 95–99
[2025-08-09 00:22] LABS: Mucous, Urine 0 SEEN /hpf (<or=2+); Squamous Epithelial Cells - UA 0 SEEN /hpf (0-5)
[2025-08-09 00:31] LABS: Color, Urine Straw (Yellow); Glucose, Dipstick Normal (Normal); Ketone-Dipstick 50 mg/dl (Negative); Leukocyte Esterase-Dipstick 500 /ul (Negative); Nitrite-Dipstick Positive (Negative); Occult Blood-Urine 50 /ul (Negative); Protein-Dipstick 100 mg/dl (Negative); Specific Gravity, Urine 1.005 (1.002-1.030); Urine Bilirubin Dipstick Negative (Negative)
--- NOTE | 2025-08-09 00:34 | PCA ---
CALLED [facility] AND THEY ACCEPTED BY DR. DIAZ. ED TO ED. ETA FOR TRANSPORT IS [phone] I Asked them to please out source
[2025-08-09 00:43] LABS: Red Blood Cells-Urine 0-5 SEEN /hpf (0-5)
--- NOTE | 2025-08-09 03:04 | PCA ---
CALLED [facility] @ SPOKE TO SOFIE @ 1939. PATIENT IS GOING ED TO ED. PHYSICIANS CANT TAKE THE PATIENT UNTIL 845 AM I ASKED THEM TO OUT SOURCE IT IF THEY COULD.
== END 2025-08-09 07:28 | disposition short-term general hospital (02) ==
PROVIDERS: Emergency Provider Emergency Medicine; PCP Student in an Organized Health Care Education/Training Program; Visit Provider Emergency Medicine
DX: N39.0 Urinary tract infection, site not specified (principal); Q05.9 Spina bifida, unspecified; I10 Essential (primary) hypertension; N21.0 Calculus in bladder; N20.0 Calculus of kidney
CPT/HCPCS: 80053; 81001; 83605; 85025; 85610; 85730; 87040; 87077; 87086; 87088; 87186; 93005; 96365; 99285; A4216